=== PATIENT | male | born 1965 | race Caucasian/White ===

== ENCOUNTER 2020-10-10 14:15 | Inpatient (IN) | payer MEDICARE, MEDICAID, SELFPAY ==
[2020-10-10] VITALS (7 sets, daily range): BP systolic 102–141; BP diastolic 41–70; PULSE 80–92; RESP 18–24; TEMP 37–37.3; O2SAT 86–98; BMI 30.4
--- NOTE | 2020-10-10 14:25 | ECG_ITS ---
Test Reason : DYSPNEA Blood Pressure : / mmHG Vent. Rate : 083 BPM Atrial Rate : 083 BPM P-R Int : 148 ms QRS Dur : 084 ms QT Int : 370 ms P-R-T Axes : 068 061 083 degrees QTc Int : 434 ms Normal sinus rhythm Normal ECG When compared with ECG of 18-JUN-2019 22:30, No significant change was found Referred By: Delaney Dumont Electronically Signed By:GM SOLIS MD
--- NOTE | 2020-10-10 14:26 | XR_ITS ---
EXAMINATION: XR CHEST CLINICAL INFORMATION: SOB. COMPARISON: Chest 06/18/2019 TECHNIQUE: Frontal view of the chest was obtained. FINDINGS: The lungs are hyperinflated with patchy opacity right lung base likely atelectasis or infiltrate. There is platelike atelectasis left midlung similar to previous study. Heart size and pulmonary vascularity is normal. No gross bony abnormality. XR/XR chest 1V IMPRESSION: Interval slight increase in the right lower lobe opacity likely infiltrate. No change in left mid lung atelectasis or scarring.
--- NOTE | 2020-10-10 14:32 | ED_ITS ---
HPI - SOB/Dyspnea General Chief Complaint: Dyspnea Stated Complaint: increased sob,cough Time Seen by Provider: 10/10/20 14:25 Source: patient and EMS Mode of arrival: EMS Limitations: no limitations History of Present Illness HPI Narrative: 55-year-old male from a custodial with a past medical history of COPD, high cholesterol, hypertension, [id number] diabetes, hypothyroidism here with shortness of breath and cough times 3-4 days. The patient tells me he has a productive cough with yellow sputum. No chest pain. No fevers or chills or body aches. No vomiting or diarrhea. Per EMS on arrival the patient had a room air saturation of 86%. MD elicited complaint: shortness of breath and cough Pertinent past history: COPD Onset (ago): day(s) Timing: intermittent Severity: moderate Exacerbating factors: exertion Relieving factors: rest Known history of: COPD Associated symptoms: cough and sputum production Treatment prior to arrival: oxygen Related Data Home Medications Medication Instructions Recorded Confirmed albuterol sulfate [Ventolin HFA] 1 puff INHALATION Q6H PRN 10/10/20 10/10/20 atenolol 25 mg PO TID 10/10/20 10/10/20 atorvastatin 40 mg PO BEDTIME 10/10/20 10/10/20 benztropine 1 tab PO BID 10/10/20 10/10/20 clozapine 50 mg PO DAILY 10/10/20 10/10/20 clozapine 150 mg PO BEDTIME 10/10/20 10/10/20 divalproex 1 tab PO DAILY 10/10/20 10/10/20 fluphenazine HCl 1 tab PO BID 10/10/20 10/10/20 gabapentin 1 tab PO TID 10/10/20 10/10/20 glipizide 1 tab PO BIDWM 10/10/20 10/10/20 insulin detemir U-100 [Levemir 30 unit SUBCUT BEDTIME 10/10/20 10/10/20 FlexTouch U-100 Insuln] insulin detemir U-100 [Levemir 45 unit SUBCUT DAILY 10/10/20 10/10/20 FlexTouch U-100 Insuln] levothyroxine 1 tab PO DAILY 10/10/20 10/10/20 lithium carbonate 300 mg PO DAILY 10/10/20 10/10/20 lithium carbonate 450 mg PO BEDTIME 10/10/20 10/10/20 metformin 1 tab PO BIDWM 10/10/20 10/10/20 tamsulosin 1 cap PO DAILY 10/10/20 10/10/20 Allergies Allergy/AdvReac Type Severity Reaction Status Date / Time amoxicillin [AMOXICILLIN] Allergy Intermediate SKIN RASH Unverified 07/28/20 15:05 egg [EGGS] Allergy Intermediate HIVES, Unverified 07/28/20 15:05 VOMITING Penicillins [PENICILLINS] Allergy Intermediate SKIN RASH Unverified 07/28/20 15:05 Sulfa (Sulfonamide Allergy Intermediate SKIN RASH Unverified 07/28/20 15:05 Antibiotics) [SULFA (SULFONAMIDE ANTIBIOTICS)] trimethoprim [TRIMETHOPRIM] Allergy Intermediate SKIN RASH Unverified 07/28/20 15:05 penicillin V Allergy Unknown Unknown Verified 10/10/20 14:35 penicillin Allergy Unknown Unknown Uncoded 10/10/20 14:35 sultamicillin Allergy Unknown Unknown Uncoded 10/10/20 14:35 trimethoprim Allergy Unknown Unknown Uncoded 10/10/20 14:35 Review of Systems Review of Systems: Yes all other systems are reviewed and are negative Constitutional: Constitutional: Reports no additional constitutional complaints, Denies body ache(s), Denies chills, Denies fever(s), Denies headache(s) and Denies weakness Eyes: Eyes: Reports no additional eye complaints and Denies change in vision ENT: Reports system reviewed and no additional complaints, except as documented, Denies dizziness, Denies headache(s), Denies nasal congestion, Denies nasal discharge and Denies neck pain Cardiovascular: Cardiovascular: Reports no additional cardiovascular complaints, Denies chest pain, Denies leg edema and Reports dyspnea Respiratory: Respiratory: Reports no additional respiratory complaints, Reports cough and Reports dyspnea Gastrointestinal: Gastrointestinal: Reports no additional gastrointestinal complaints, Denies abdominal pain, Denies diarrhea, Denies nausea and Denies vomiting Genitourinary: Genitourinary: Denies urinary incontinence Musculoskeletal: Musculoskeletal: Reports no additional musculoskeletal complaints, Denies back pain, Denies arthralgias, Denies joint swelling, Denies neck pain, Denies numbness and Denies tingling Integumentary/Breasts: Skin/Breast: Reports system reviewed and no additional complaints, except as docu and Denies rash Neurologic: Reports system reviewed and no additional complaints, except as documented, Denies Abnormal speech present, Denies dizziness, Denies headache(s), Denies numbness, Denies tingling and Denies weakness PMFSH Past Medical History Attestation statement: The following information was validated with the patient. Source: old records reviewed and nursing notes reviewed Medical History Asthma COPD (chronic obstructive pulmonary disease) Diabetes High cholesterol HTN (hypertension) Social History Social History Smoking Status: Current every day smoker Use of substances other than those prescribed or required for medical reasons: Yes Substance Use Type: Marijuana Substance Use Frequency: Occasionally Advance Directives: No Advance Directives Information Provided: No Physical Exam Vital Signs: Vital Signs: Last Vital Signs Temp 98.6 F 10/10/20 14:26 Pulse 80 10/10/20 15:51 Resp 24 H 10/10/20 15:51 BP 121/69 10/10/20 15:51 Pulse Ox 96 10/10/20 15:51 Body Mass Index 30.4 Const: General: cooperative, healthy appearing, comfortable and no acute distress Orientation/consciousness: patient oriented x3 Limitations: no limitations HENMT: Head: Yes normal to inspection Ears: hearing grossly normal bilaterally General nose exam: Normal external nose present Face and sinus: Yes normal facial exam Mouth: Normal oral and palatal mucosa present Throat: Yes posterior oropharynx normal Eyes: General: appearance normal, both eyes and all related structures Pupils: Equal, round and reactive pupils present Neck: Neck: Yes normal visual inspection Chest: Chest palpation & inspection: normal inspection of the chest Resp: Other: Diminished breath sounds bilaterally, upper airway sounds are coarse but clear with coughing Effort & Inspection: normal respiratory effort Auscultation: clear to auscultation bilaterally Cardio: Rate: regular rate Rhythm: regular rhythm Peripheral pulses: Peripheral pulses 2+ throughout GI: Inspection: Yes normal to inspection Palpation (GI): Soft to palpation and nontender Auscultation: normal bowel sounds Back/Spine/Pelvis: Thoracic/Lumbar Spine: thoracic and lumbar spine normal to inspection Skin: General skin exam: no rashes or lesions noted Neuro: General: patient oriented x3, no focal motor deficits and normal sensation to monofilament Cranial nerves: Yes Equal, round and reactive pupils present Cognition (Neuro): normal cognition Speech: No Abnormal speech present Gait exam (Neuro): Normal gait present Motor exam (neuro): 5/5 motor strength present throughout Extrem: General: Yes normal to inspection Right lower extremity: edema Details: pitting and 1+ Left lower extremity: edema Details: pitting and 1+ Course Course Course Narrative: 55-year-old male from a custodial here with cough, shortness of breath and hypoxia. On arrival the patient has room air saturation of 86%. He improved with just a couple L of oxygen via nasal cannula. He has diminished breath sounds in the bases and coarse upper airway sounds. He has bilateral pitting edema in lower extremities. Will need labs, chest x-ray, COVID testing, EKG. 1559- chest x-ray concerning for possible right lower lobe infiltrate. At this time infection suspected. Antibiotics ordered. 1645- Lactic acid 4.2. Pt is obese. IBW 81kg used for total fluids 2454ml. fluids ordered. Additional antibiotics ordered. CT chest to further eval for underlying pneumonia. 1700-Sign out to Mary Carmen CLAMMER pending above. MDM - SOB/Dyspnea MDM Narrative Medical decision making narrative: Viral syndrome, COVID-19 infection, pneumonia, CHF, COPD exacerbation less likely COVID-19 infection with negative swab. Could consider COPD exacerbation with some wheezing on exam and hypoxia. A dose of steroids was given. Patient does have a mildly elevated BNP and some trace pitting lower extremity edema but does not have any other signs or symptoms of CHF. Chest x- rays more concerning for a right-sided pneumonia with elevated white blood cell count and lactic acid. Medical Records Attestation: I reviewed the patient's medical records. Lab Data Attestation: I reviewed the patient's lab results. Result diagrams: 10/10/20 15:39 10/10/20 15:39 Labs: Lab Results 10/10/20 10/10/20 10/10/20 Range/Units 15:18 15:39 15:39 WBC 11.3 H (4.8-10.8) X10*3/uL RBC 5.22 (4.60-5.80) X10*6/uL Hgb 13.4 L (14.0-18.0) g/dl Hct 45.5 (42-52) % MCV 87.2 (80-98) fL MCH 25.7 L (27.0-33.0) pg MCHC 29.5 L (31.0-36.0) g/dl RDW 16.1 H (11.0-16.0) % Plt Count 305 (160-400) X10*3/uL MPV 9.3 L (9.4-12.4) fL Immature Gran % (Auto) 0.4 (0.0-0.4) % Neut % (Auto) 80.0 H (45-73) % Lymph % (Auto) 11.6 L (20-40) % [place] % (Auto) 7.7 (2-11) % Eos % (Auto) 0.1 (0-4) % Baso % (Auto) 0.2 (0-2) % Lymph # (Auto) 1.3 (1.2-4.9) X10*3/uL [place] # (Auto) 0.9 (0.1-1.2) X10*3/uL Eos # (Auto) 0.0 (0.0-0.4) X10*3/uL Baso # (Auto) 0.0 (0.0-0.2) X10*3/uL Abs Immat Gran (auto) 0.04 H (0.00-0.03) X10*3/uL Absolute Neuts (auto) 9.0 H (2.0-8.3) X10*3/uL Absolute Nucleated RBC 0.000 (0.0-0.012) X10*3/uL Nucleated RBC % (auto) 0.0 (0.0-0.2) /100WBC PT 18.7 H (10.8-13.0) SEC INR 1.6 H (0.9-1.1) Sodium (135-145) mmol/L Potassium (3.3-5.1) mmol/l Chloride (96-108) mmol/L Carbon Dioxide (22-29) mmol/L Anion Gap (12-20) BUN (9-16) mg/dL Creatinine (0.5-1.4) mg/dL Estim Creat Clear Calc Estimated GFR Random Glucose (60-115) mg/dL Lactic Acid (0.5-2.0) mmol/L Calcium (8.4-10.2) mg/dL Magnesium (1.6-2.6) mg/dL Total Bilirubin (0.0-1.0) mg/dL Direct Bilirubin (0.0-0.5) mg/dL AST (5-37) U/L ALT (0-40) U/L Alkaline Phosphatase (39-117) U/L Troponin I High Sens (<3.5-35.0) ng/L B-Natriuretic Peptide (<100) pg/mL Total Protein (6.5-8.0) g/dL Albumin (3.5-5.0) g/dL Coronavirus (PCR) NEGATIVE (Negative) Influenza Type A (PCR) NEGATIVE (Negative) Influenza Type B (PCR) NEGATIVE (Negative) RSV RNA Qual (PCR) NEGATIVE (Negative) 10/10/20 10/10/20 10/10/20 Range/Units 15:39 15:39 15:39 WBC (4.8-10.8) X10*3/uL RBC (4.60-5.80) X10*6/uL Hgb (14.0-18.0) g/dl Hct (42-52) % MCV (80-98) fL MCH (27.0-33.0) pg MCHC (31.0-36.0) g/dl RDW (11.0-16.0) % Plt Count (160-400) X10*3/uL MPV (9.4-12.4) fL Immature Gran % (Auto) (0.0-0.4) % Neut % (Auto) (45-73) % Lymph % (Auto) (20-40) % [place] % (Auto) (2-11) % Eos % (Auto) (0-4) % Baso % (Auto) (0-2) % Lymph # (Auto) (1.2-4.9) X10*3/uL [place] # (Auto) (0.1-1.2) X10*3/uL Eos # (Auto) (0.0-0.4) X10*3/uL Baso # (Auto) (0.0-0.2) X10*3/uL Abs Immat Gran (auto) (0.00-0.03) X10*3/uL Absolute Neuts (auto) (2.0-8.3) X10*3/uL Absolute Nucleated RBC (0.0-0.012) X10*3/uL Nucleated RBC % (auto) (0.0-0.2) /100WBC PT (10.8-13.0) SEC INR (0.9-1.1) Sodium 128 L (135-145) mmol/L Potassium 4.9 (3.3-5.1) mmol/l Chloride 89 L (96-108) mmol/L Carbon Dioxide 28 (22-29) mmol/L Anion Gap 16 (12-20) BUN 4 L (9-16) mg/dL Creatinine 0.69 (0.5-1.4) mg/dL Estim Creat Clear Calc 149.3 Estimated GFR > 60 Random Glucose 170 H (60-115) mg/dL Lactic Acid 4.2 H* (0.5-2.0) mmol/L Calcium 8.3 L (8.4-10.2) mg/dL Magnesium 1.9 (1.6-2.6) mg/dL Total Bilirubin 0.5 (0.0-1.0) mg/dL Direct Bilirubin 0.2 (0.0-0.5) mg/dL AST 8 (5-37) U/L ALT 10 (0-40) U/L Alkaline Phosphatase 81 (39-117) U/L Troponin I High Sens < 3.5 (<3.5-35.0) ng/L B-Natriuretic Peptide (<100) pg/mL Total Protein 5.9 L (6.5-8.0) g/dL Albumin 3.5 (3.5-5.0) g/dL Coronavirus (PCR) (Negative) Influenza Type A (PCR) (Negative) Influenza Type B (PCR) (Negative) RSV RNA Qual (PCR) (Negative) 10/10/20 Range/Units 15:39 WBC (4.8-10.8) X10*3/uL RBC (4.60-5.80) X10*6/uL Hgb (14.0-18.0) g/dl Hct (42-52) % MCV (80-98) fL MCH (27.0-33.0) pg MCHC (31.0-36.0) g/dl RDW (11.0-16.0) % Plt Count (160-400) X10*3/uL MPV (9.4-12.4) fL Immature Gran % (Auto) (0.0-0.4) % Neut % (Auto) (45-73) % Lymph % (Auto) (20-40) % [place] % (Auto) (2-11) % Eos % (Auto) (0-4) % Baso % (Auto) (0-2) % Lymph # (Auto) (1.2-4.9) X10*3/uL [place] # (Auto) (0.1-1.2) X10*3/uL Eos # (Auto) (0.0-0.4) X10*3/uL Baso # (Auto) (0.0-0.2) X10*3/uL Abs Immat Gran (auto) (0.00-0.03) X10*3/uL Absolute Neuts (auto) (2.0-8.3) X10*3/uL Absolute Nucleated RBC (0.0-0.012) X10*3/uL Nucleated RBC % (auto) (0.0-0.2) /100WBC PT (10.8-13.0) SEC INR (0.9-1.1) Sodium (135-145) mmol/L Potassium (3.3-5.1) mmol/l Chloride (96-108) mmol/L Carbon Dioxide (22-29) mmol/L Anion Gap (12-20) BUN (9-16) mg/dL Creatinine (0.5-1.4) mg/dL Estim Creat Clear Calc Estimated GFR Random Glucose (60-115) mg/dL Lactic Acid (0.5-2.0) mmol/L Calcium (8.4-10.2) mg/dL Magnesium (1.6-2.6) mg/dL Total Bilirubin (0.0-1.0) mg/dL Direct Bilirubin (0.0-0.5) mg/dL AST (5-37) U/L ALT (0-40) U/L Alkaline Phosphatase (39-117) U/L Troponin I High Sens (<3.5-35.0) ng/L B-Natriuretic Peptide 162 H (<100) pg/mL Total Protein (6.5-8.0) g/dL Albumin (3.5-5.0) g/dL Coronavirus (PCR) (Negative) Influenza Type A (PCR) (Negative) Influenza Type B (PCR) (Negative) RSV RNA Qual (PCR) (Negative) Imaging Data Chest x-ray: Attestation: I personally reviewed and interpreted this imaging study as follows: Radiologist's impression: EXAMINATION: XR CHEST CLINICAL INFORMATION: SOB. COMPARISON: Chest 06/18/2019 TECHNIQUE: Frontal view of the chest was obtained. FINDINGS: The lungs are hyperinflated with patchy opacity right lung base likely atelectasis or infiltrate. There is platelike atelectasis left midlung similar to previous study. Heart size and pulmonary vascularity is normal. No gross bony abnormality. XR/XR chest 1V IMPRESSION: Interval slight increase in the right lower lobe opacity likely infiltrate. No change in left mid lung atelectasis or scarring. ECG Data Attestation: I personally reviewed and interpreted this ECG as follows: ECG interpretation date: 10/10/20 ECG interpretation time: 15:09 Interpretation: normal sinus rhythm with a rate of 83, normal DE, normal QRS, normal QT, normal ST segment Discharge Plan Discharge Clinical Impression: Pneumonia, Hypoxia, Elevated lactic acid level, Acute hyponatremia Patient Disposition: Admitted As Inpatient
[2020-10-10] MEDS: methylPREDNISolone Sod Succ/PF 125 MG/2 ML VIAL IVPUSH (14:42)
[2020-10-10] MEDS: 0.9 % Sodium Chloride 500 ML 999 ML IV (14:42)
[2020-10-10 16:01] LABS: INTERNATIONAL NORM RATIO 1.6 (0.9-1.1); Prothrombin Time 18.7 SEC (10.8-13.0)
[2020-10-10 16:18] LABS: Hematocrit 45.5 % (42-52); Hemoglobin 13.4 g/dl (14.0-18.0); Imm Gran Pct Auto 0.4 % (0.0-0.4); Mean Corpuscular HGB Conc 29.5 g/dl (31.0-36.0); Mean Corpuscular Hemoglobin 25.7 pg (27.0-33.0); Mean Corpuscular Volume 87.2 fL (80-98); Mean Platelet Volume 9.3 fL (9.4-12.4); Platelet Count 305 X10*3/uL (160-400); Red Blood Count 5.22 X10*6/uL (4.60-5.80); Red Cell Distribution Width 16.1 % (11.0-16.0); White Blood Count 11.3 X10*3/uL (4.8-10.8)
[2020-10-10 16:19] LABS: Basophils Percent Auto 0.2 % (0-2); Eosinophils Percent Auto 0.1 % (0-4); Imm Gran Abs Auto 0.04 X10*3/uL (0.00-0.03); Lymphocytes Absolute Auto 1.3 X10*3/uL (1.2-4.9); Lymphocytes Percent Auto 11.6 % (20-40); MANUAL DIFF FLAG NO; Monocytes Absolute Auto 0.9 X10*3/uL (0.1-1.2); Monocytes Percent Auto 7.7 % (2-11)
[2020-10-10 16:21] LABS: Alanine Aminotransferase 10 U/L (0-40); Albumin Level 3.5 g/dL (3.5-5.0); Alkaline Phosphatase 81 U/L (39-117); Anion Gap 16 (12-20); Aspartate Amino Transferase 8 U/L (5-37); Bilirubin Direct 0.2 mg/dL (0.0-0.5); Bilirubin Total 0.5 mg/dL (0.0-1.0); Blood Urea Nitrogen 4 mg/dL (9-16); Calcium 8.3 mg/dL (8.4-10.2); Carbon Dioxide 28 mmol/L (22-29); Chloride 89 mmol/L (96-108); Creatinine Clr Calc Pharmacy 149.3; Estimated Glomerular Filt Rate > 60; Glucose Random 170 mg/dL (60-115); Magnesium 1.9 mg/dL (1.6-2.6); Potassium 4.9 mmol/l (3.3-5.1); Sodium 128 mmol/L (135-145); Total Protein 5.9 g/dL (6.5-8.0)
[2020-10-10 16:26] LABS: B Type Natriuretic Peptide 162 pg/mL (<100); Troponin-I High Sensitivity < 3.5 ng/L (<3.5-35.0)
[2020-10-10 16:32] LABS: Lactic Acid 4.2 mmol/L (0.5-2.0)
--- NOTE | 2020-10-10 16:40 | CT_ITS ---
EXAMINATION: CT CHEST WITHOUT CONTRAST CLINICAL INFORMATION: Evaluate for pneumonia COMPARISON: Chest radiograph earlier today and chest CT dated 12/03/2017 TECHNIQUE: Multidetector volumetric CT imaging of the chest was done. Axial MIP volume rendering provided. Sagittal and coronal reformatted images were obtained. This CT examination was performed using dose optimization techniques as appropriate, variously including the following: *Automated exposure control *Adjustment of mA and/or kV according to patient size (this includes techniques or standardized protocols for targeted exams where dose is matched to indication/reason for exam; i.e. extremities or head) *Use of iterative reconstruction technique DLP: 497 mGy-cm FINDINGS: LUNGS AND PLEURA: There is underlying emphysematous change. On the right, a pleural effusion is present which appears somewhat lobulated and extends into the major fissure producing the right lower lobe opacity at the time of chest radiograph. There is right lower lobe patchy densities seen extending along the bronchial branching patterns which may represent inflammatory change/pneumonia. Of note, calcified right posterior pleural plaque is again seen. No large pleural soft tissue mass is seen. Some minor calcifications and pleural thickening is noted at the left base as well. There is an unchanged 7 mm perifissural right lower lobe pulmonary nodule (series 4 image [id number]). The worrisome spiculated mass seen in the right upper lobe previously has resolved. No new worrisome lung masses are seen MEDIASTINUM: Some AP window lymph nodes and anterior mediastinal lymph nodes appear slightly larger than previously noted but are still not enlarged. No mediastinal or hilar lymphadenopathy is seen. Coronary calcifications are present. AXILLA: No lymphadenopathy. UPPER ABDOMEN: Unremarkable. OSSEOUS STRUCTURES: Mild degenerative changes present in the midthoracic anterior wedging. No bony destructive lesions seen. CT/CT chest wo con IMPRESSION: Lobular somewhat loculated right pleural effusion with fluid extending into the major fissure and findings of previous asbestos exposure. There is associated right lower lobe infiltrate raising the question of pneumonia and empyema. If finding does not resolve, pleural drainage may be of value to exclude asbestos related neoplasm.
[2020-10-10 16:47] LABS: Influenza A PCR NEGATIVE (Negative); Influenza B PCR NEGATIVE (Negative); Resp Syncy Virus RNA Qual PCR NEGATIVE (Negative); SARS COV2 PCR INHOUSE NEGATIVE (Negative)
[2020-10-10] MEDS: cefTRIAXone sodium 1 GM in 0.9 % Sodium Chloride 50 ML IV (16:59)
[2020-10-10 17:45] LABS: Reflex Lactate? Lactic Acid Added
[2020-10-10] MEDS: Azithromycin 500 MG in 0.9 % Sodium Chloride 250 ML 125 MG IV (17:58)
[2020-10-10 18:49] LABS: ~Lactic Acid-LAB USE ONLY 3.1 mmol/L (0.5-2.0)
--- NOTE | 2020-10-10 19:15 | PC.NURSE ---
Report taken from Sheryl, ranjit RN resuming care. Pt found sitting upright at the end of bed, trying to get out of bed, pt had pulled his IV out and blood was all over the bed and floor. Pt was incontinent of urine, unable to urinate in the urinal. Second IV established, ABX infusing per EMAR. Pt aware of plan to admit, awaiting bed assignment. Continue to monitor.
[2020-10-10 20:12] LABS: Reflex Lactate? 2 Y
--- NOTE | 2020-10-10 20:19 | P.HPHOSP_ITS ---
History of Present Illness Date of Service: 10/10/20 <Gisel Mayo NP - Last Filed: 10/10/20 21:18> Chief Complaint: SHORTNESS OF BREATH <Gisel Mayo NP - Last Filed: 10/10/20 21:18> 55-year-old man presenting from a snf with increased shortness of breath. He reported that this has been ongoing for the last several days. He denies any sick contacts, fever, chills. He did report some nausea vomiting and several episodes of diarrhea. In the ER, chest CT showed loculated right pleural effusion with question of previous asbestos exposure. He also had a right lower lobe infiltrate with question of pneumonia versus empyema. He did not have any fever, he had a mildly elevated white blood cell count 11.3. His lactic acid was elevated at 4.2 with repeat of 3.1. His BNP was mildly elevated at 162 however he did not appear to be in heart failure. Coronavirus PCR negative. In the ER he was given 30 mL/kg IV fluid bolus, Solu-Medrol, ceftriaxone, azithromycin. He will be admitted for further management and treatment of community-acquired pneumonia as well as hyponatremia. <Gisel Mayo NP - Last Filed: 10/10/20 21:18> Review of Systems Review of Systems: Denies any recent fever chills or decrease in appetite respiratory denies any shortness of breath coverage production cardiovascular is adjustment of any PND or edema gastrointestinal See HPI genitourinary denies any dysuria frequency or hematuria musculoskeletal denies any joint pain or swelling neuropsych denies any weakness or seizures all other systems reviewed are negative <Gisel Mayo NP - Last Filed: 10/10/20 21:18> Constitutional: Constitutional: Denies headache(s) and Denies weakness <Gisel Mayo NP - Last Filed: 10/10/20 21:18> ENT: Denies dizziness and Denies headache(s) <Gisel Mayo NP - Last Filed: 10/10/20 21:18> Musculoskeletal: Musculoskeletal: Denies numbness and Denies tingling <Gisel Mayo NP - Last Filed: 10/10/20 21:18> Neurologic: Reports system reviewed and no additional complaints, except as documented, Denies Abnormal speech present, Denies dizziness, Denies headache(s), Denies numbness, Denies tingling and Denies weakness <Gisel Mayo NP - Last Filed: 10/10/20 21:18> [facility] Medical History: Medical History (Updated 10/14/20 @ 21:47 by Adali Lindsey MD) Asbestos-induced pleural plaque Asthma COPD (chronic obstructive pulmonary disease) Diabetes High cholesterol HTN (hypertension) Loculated pleural effusion Rash Schizophrenia Traumatic brain injury <Gisel Mayo NP - Last Filed: 10/10/20 21:18> Social History: Social History Household Members: Caregiver and Other Housing: House Smoking Status: Current every day smoker Packs Per Day: 1.5 Substance Use Type: Marijuana service: No Current occupational status: disabled <Gisel Mayo NP - Last Filed: 10/10/20 21:18> Meds Allergies/Adverse reactions: Allergies Allergy/AdvReac Type Severity Reaction Status Date / Time amoxicillin [AMOXICILLIN] Allergy Intermediate SKIN RASH Verified 10/11/20 17:00 egg [EGGS] Allergy Intermediate HIVES, Verified 10/11/20 17:00 VOMITING Penicillins [PENICILLINS] Allergy Intermediate SKIN RASH Verified 10/11/20 17:00 Sulfa (Sulfonamide Allergy Intermediate SKIN RASH Verified 10/11/20 17:00 Antibiotics) [SULFA (SULFONAMIDE ANTIBIOTICS)] trimethoprim [TRIMETHOPRIM] Allergy Intermediate SKIN RASH Verified 10/11/20 17:00 penicillin V Allergy Unknown Unknown Verified 10/10/20 14:35 haloperidol [From Haldol] Allergy Unknown Verified 10/11/20 16:16 Latex, Natural Rubber Allergy Unknown Verified 10/11/20 16:16 methylprednisolone Allergy Unknown Verified 10/11/20 16:16 [From Solu-Medrol] penicillin Allergy Unknown Unknown Uncoded 10/10/20 14:35 sultamicillin Allergy Unknown Unknown Uncoded 10/10/20 14:35 trimethoprim Allergy Unknown Unknown Uncoded 10/10/20 14:35 <Gisel Mayo NP - Last Filed: 10/10/20 21:18> Home medications: Home Medications Medication Instructions Recorded Confirmed Type albuterol sulfate [Ventolin HFA] 1 puff INHALATION Q6H PRN 10/10/20 10/10/20 History atorvastatin 40 mg PO BEDTIME 10/10/20 10/10/20 History benztropine 1 tab PO BID 10/10/20 10/10/20 History clozapine 50 mg PO DAILY 10/10/20 10/10/20 History clozapine 150 mg PO BEDTIME 10/10/20 10/10/20 History divalproex 1 tab PO DAILY 10/10/20 10/10/20 History fluphenazine HCl 1 tab PO BID 10/10/20 10/10/20 History gabapentin 1 tab PO TID 10/10/20 10/10/20 History levothyroxine 1 tab PO DAILY 10/10/20 10/10/20 History lithium carbonate 300 mg PO DAILY 10/10/20 10/10/20 History lithium carbonate 450 mg PO BEDTIME 10/10/20 10/10/20 History metformin 1 tab PO BIDWM 10/10/20 10/10/20 History tamsulosin 1 cap PO DAILY 10/10/20 10/10/20 History ibuprofen 600 mg PO Q6H PRN 10/20/20 10/20/20 History loratadine 10 mg PO DAILY 10/20/20 10/20/20 History <Gisel Mayo NP - Last Filed: 10/10/20 21:18> Physical Exam Vital Signs and Narrative: Vital Signs: Last Vital Signs Temp 98.6 F 10/10/20 14:26 Pulse 82 10/10/20 18:00 Resp 22 H 10/10/20 18:00 BP 134/69 10/10/20 18:00 Pulse Ox 96 10/10/20 18:00 Body Mass Index 30.4 <Gisel Mayo NP - Last Filed: 10/10/20 21:18> Appearing in no acute distress head is normocephalic atraumatic eyes pupils are PERRLA sclera is anicteric mouth throat mucous membranes are intact and moist neck is supple no lymphadenopathy, no JVD noted lung normal expansion, rhonchi heart regular rate rhythm positive bowel sounds, abdomen is soft, nontender neuro patient is alert x3, no focal deficits <Gisel Mayo NP - Last Filed: 10/10/20 21:18> Neuro: Speech: No Abnormal speech present <Gisel Mayo NP - Last Filed: 10/10/20 21:18> Results Labs CBC and Chem 7: : 10/11/20 06:45 10/14/20 06:01 <Gisel Mayo NP - Last Filed: 10/10/20 21:18> Labs: Laboratory Results - last 24 hr 10/10/20 10/10/20 10/10/20 15:18 15:39 15:39 MCV 87.2 MCH 25.7 L MCHC 29.5 L RDW 16.1 H Plt Count 305 MPV 9.3 L Immature Gran % (Auto) 0.4 Neut % (Auto) 80.0 H Lymph % (Auto) 11.[address] [place] % (Auto) 7.7 Eos % (Auto) 0.1 Baso % (Auto) 0.2 Lymph # (Auto) 1.3 [place] # (Auto) 0.9 Eos # (Auto) 0.0 Baso # (Auto) 0.0 Abs Immat Gran (auto) 0.04 H Absolute Neuts (auto) 9.0 H Absolute Nucleated RBC 0.000 Nucleated RBC % (auto) 0.0 PT 18.7 H INR 1.6 H Sodium Anion Gap Estim Creat Clear Calc Estimated GFR Random Glucose Lactic Acid Lactic Acid Fup @ 2Hr Calcium Magnesium Total Bilirubin Direct Bilirubin AST ALT Alkaline Phosphatase Troponin I High Sens B-Natriuretic Peptide Total Protein Albumin Coronavirus (PCR) NEGATIVE Influenza Type A (PCR) NEGATIVE Influenza Type B (PCR) NEGATIVE RSV RNA Qual (PCR) NEGATIVE 10/10/20 10/10/20 10/10/20 15:39 15:39 15:39 MCV MCH MCHC RDW Plt Count MPV Immature Gran % (Auto) Neut % (Auto) Lymph % (Auto) [place] % (Auto) Eos % (Auto) Baso % (Auto) Lymph # (Auto) [place] # (Auto) Eos # (Auto) Baso # (Auto) Abs Immat Gran (auto) Absolute Neuts (auto) Absolute Nucleated RBC Nucleated RBC % (auto) PT INR Sodium 128 L Anion Gap 16 Estim Creat Clear Calc 149.3 Estimated GFR > 60 Random Glucose 170 H Lactic Acid 4.2 H* Lactic Acid Fup @ 2Hr Calcium 8.3 L Magnesium 1.9 Total Bilirubin 0.5 Direct Bilirubin 0.2 AST 8 ALT 10 Alkaline Phosphatase 81 Troponin I High Sens < 3.5 B-Natriuretic Peptide Total Protein 5.9 L Albumin 3.5 Coronavirus (PCR) Influenza Type A (PCR) Influenza Type B (PCR) RSV RNA Qual (PCR) 10/10/20 10/10/20 15:39 18:08 MCV MCH MCHC RDW Plt Count MPV Immature Gran % (Auto) Neut % (Auto) Lymph % (Auto) [place] % (Auto) Eos % (Auto) Baso % (Auto) Lymph # (Auto) [place] # (Auto) Eos # (Auto) Baso # (Auto) Abs Immat Gran (auto) Absolute Neuts (auto) Absolute Nucleated RBC Nucleated RBC % (auto) PT INR Sodium Anion Gap Estim Creat Clear Calc Estimated GFR Random Glucose Lactic Acid Lactic Acid Fup @ 2Hr 3.1 H* Calcium Magnesium Total Bilirubin Direct Bilirubin AST ALT Alkaline Phosphatase Troponin I High Sens B-Natriuretic Peptide 162 H Total Protein Albumin Coronavirus (PCR) Influenza Type A (PCR) Influenza Type B (PCR) RSV RNA Qual (PCR) <Gisel Mayo NP - Last Filed: 10/10/20 21:18> Imaging Radiologist's Impressions: Impressions Chest X-Ray 10/10/20 14:26 IMPRESSION: Interval slight increase in the right lower lobe opacity likely infiltrate. No change in left mid lung atelectasis or scarring. Chest CT 10/10/20 16:40 IMPRESSION: Lobular somewhat loculated right pleural effusion with fluid extending into the major fissure and findings of previous asbestos exposure. There is associated right lower lobe infiltrate raising the question of pneumonia and empyema. If finding does not resolve, pleural drainage may be of value to exclude asbestos related neoplasm. <Gisel Mayo NP - Last Filed: 10/10/20 21:18> Assessment and Plan (1) Pneumonia: Qualifiers: Laterality: right Lung location: lower lobe of lung Pneumonia type: due to unspecified organism Qualified Code(s): J18.9 - Pneumonia, unspecified organism <Gisel Mayo NP - Last Filed: 10/10/20 21:18> Problem details: CAP <Gisel Mayo NP - Last Filed: 10/10/20 21:18> Status: Acute <Gisel Mayo NP - Last Filed: 10/10/20 21:18> (2) Acute hyponatremia: Status: Acute <Gisel Mayo NP - Last Filed: 10/10/20 21:18> 55-year-old man admitted with community-acquired pneumonia and hypon atremia. Community-acquired pneumonia. No sepsis.Negative COVID. Will treat with Rocephin and doxycycline. Follow cultures. COPD exacerbation. Solu-Medrol, duo nebs, supplemental oxygen as needed. Robitussin for cough Hyponatremia. Patient denies polydipsia. Unknown etiology at this time may be related to some insensible losses with vomiting and diarrhea. Will check stool studies, urine studies, urine for Legionella. recheck sodium this evening. Schizophrenia. Continue home medications. Diabetes mellitus. Sliding scale, ADA diet, continue glipizide, long-acting insulin, metformin. Hypothyroidism. Continue levothyroxine. Hypertension. Continue atenolol. Hyperlipidemia. Continue statin. Smoker. NRT, discussed the importance of cessation. DVT prophylaxis with Lovenox. Discussed with Dr. Becerril Full code <Gisel Mayo NP - Last Filed: 10/10/20 21:18>
--- NOTE | 2020-10-10 20:35 | PC.NURSE ---
Pt found resting in bed, reports breathing as fair. On 2 lpm via NC, pt satting @ 89%, pt increased to 2 lpm. Pt assisted to the edge of the bed to use the urinal. Urine sample obtained and sent. Repeat lactic obtained and sent. Pt repositioned into an upright position, provided with clean bed linens, O2 increased to 4 lpm, sat increased to 93%. Continue to monitor.
--- NOTE | 2020-10-10 21:12 | PC.NURSE ---
Report given to C RN. IMC requesting 20 minutes prior to transport to floor. Pt again, found standing in his room even though both bed rails up. Pt extremely impulsive, refusing to use his call tracy or call for assistance when ambulating. Pt urinating on the floor for the 4th time. enterprise integration developer aware of pts need for a sitter, IMC RN advised of pts impulsive nature and difficulty following directions.
[2020-10-10 21:16] LABS: Osmolality Urine 130 mosm/kg (373-1093)
[2020-10-10 21:19] LABS: Potassium Urine Random 8.5 mmol/l; Sodium Urine Random < 20.0 mmol/L
--- NOTE | 2020-10-10 21:26 | P.EN_ITS ---
Event Note Date of Service: 10/10/20 Event Note: admission note: 55 y/o male who presented from residential due to SOB. To be admitted due to COPD exacerbation likely secondary to RLL PNA, Loculated right pleural effusion and hyponatremia. ROS and Physical exam as per H and P. PMHX: Asthma COPD (chronic obstructive pulmonary disease) Diabetes High cholesterol HTN (hypertension) Schizophrenia Traumatic brain injury PSx: unknown Toxic habits: No hx of alcohol abuse or IVDA documented. Assessment/Plan: 1- COPD exacerbation likely secondary to RLL PNA Continue with IV antbx as ordered Follow up BCx and Sputum cx Infectiou disease consult in the am Pulmonary consult for loculated Right pleural effusion 2- Hypovolemic Hypoosmolar hyponatremia S/p IV fluid resuscitation in the ED Follow up repeat BMP and monitor sodium levels closely Nephrology consult in the am Rest of the plan as discussed with ROD CUP FILLER per ROD CUP FILLER's note Gisel Mayo
--- NOTE | 2020-10-10 21:43 | PC.NURSE ---
Pt requesting food/drink, given a sandwich and gingerale. VSS. Awaiting transport to floor.
[2020-10-10 22:38] LABS: Glucose, Whole Blood 130 mg/dL (60-115)
[2020-10-10 22:42] LABS: Sodium 136 mmol/L (135-145)
[2020-10-10] MEDS: Doxycycline Hyclate 100 MG in 0.9 % Sodium Chloride 250 ML 166.67 MG IV (23:15)
[2020-10-10] MEDS: Gabapentin 600 MG TABLET PO (23:17)
[2020-10-10] MEDS: Atorvastatin Calcium 40 MG TABLET PO (23:17)
[2020-10-10] MEDS: Lithium Carbonate ER 450 MG TABLET.ER PO (23:17)
[2020-10-10] MEDS: Enoxaparin Sodium 40 MG/0.4 ML SYRINGE SUBCUT (23:20)
[2020-10-10] MEDS: 0.9 % Sodium Chloride Flush 3 ML SYRINGE IVFLUSH (23:21)
[2020-10-11] VITALS (13 sets, daily range): BP systolic 113–136; BP diastolic 56–65; PULSE 80–100; RESP 20–24; TEMP 36.7–37.1; O2SAT 90–98; BMI 30.4
[2020-10-11 04:49] LABS: Glucose, Whole Blood 170 mg/dL (60-115)
[2020-10-11] MEDS: Levothyroxine Sodium 150 MCG TABLET PO (05:54)
[2020-10-11 07:16] LABS: MANUAL DIFF FLAG NO
[2020-10-11] MEDS: Albuterol/Iprat 2.5/0.5MG 3 ML AMPUL.NEB INHALE ×4 (07:23→19:39)
[2020-10-11 07:26] LABS: Hemoglobin 12.5 g/dl (14.0-18.0); Imm Gran Abs Auto 0.07 X10*3/uL (0.00-0.03); Imm Gran Pct Auto 0.8 % (0.0-0.4); Lymphocytes Absolute Auto 0.7 X10*3/uL (1.2-4.9); Lymphocytes Percent Auto 8.6 % (20-40); Mean Corpuscular HGB Conc 29.1 g/dl (31.0-36.0); Mean Corpuscular Hemoglobin 25.4 pg (27.0-33.0); Mean Corpuscular Volume 87.2 fL (80-98); Mean Platelet Volume 9.8 fL (9.4-12.4); Monocytes Absolute Auto 0.3 X10*3/uL (0.1-1.2); Monocytes Percent Auto 3.5 % (2-11); Neutrophils Absolute Auto 7.4 X10*3/uL (2.0-8.3); Neutrophils Percent Auto 87.1 % (45-73); Platelet Count 328 X10*3/uL (160-400); Red Blood Count 4.93 X10*6/uL (4.60-5.80); Red Cell Distribution Width 16.1 % (11.0-16.0); White Blood Count 8.5 X10*3/uL (4.8-10.8)
[2020-10-11 07:39] LABS: Glucose, Whole Blood 153 mg/dL (60-115)
[2020-10-11 07:56] LABS: Anion Gap 12 (12-20); Blood Urea Nitrogen 4 mg/dL (9-16); Calcium 8.6 mg/dL (8.4-10.2); Carbon Dioxide 32 mmol/L (22-29); Chloride 102 mmol/L (96-108); Creatinine Clr Calc Pharmacy 171.7; Estimated Glomerular Filt Rate > 60; Glucose Random 147 mg/dL (60-115); Sodium 141 mmol/L (135-145)
[2020-10-11] MEDS: metFORMIN HCl 1,000 MG TABLET 1000 MG PO ×2 (08:02→16:52)
[2020-10-11] MEDS: Divalproex Sodium ER 250 MG TAB.ER.24H PO (08:02)
[2020-10-11] MEDS: Lithium Carbonate ER 300 MG TABLET.ER PO (08:02)
[2020-10-11] MEDS: Nicotine 14 MG PATCH.TD24 TRANSDERMA (08:02)
[2020-10-11] MEDS: Benztropine Mesylate 1 MG TABLET PO ×2 (08:02→21:02)
[2020-10-11] MEDS: Insulin Lispro 100 UNIT/ML 3 ML VIAL SUBCUT ×2 (08:03→12:02)
[2020-10-11] MEDS: Insulin Glargine,Hum.rec.anlog 100 UNIT/ML 10 ML VIAL 32 UNIT SUBCUT (08:06)
[2020-10-11] MEDS: atenoloL 25 MG TABLET PO ×3 (08:06→21:03)
[2020-10-11] MEDS: 0.9 % Sodium Chloride Flush 3 ML SYRINGE IVFLUSH ×3 (08:09→23:20)
[2020-10-11] MEDS: glipiZIDE XL 10 MG TAB.ER.24 PO ×2 (08:10→16:52)
[2020-10-11] MEDS: Gabapentin 600 MG TABLET PO ×3 (08:10→21:02)
[2020-10-11] MEDS: Dextrose 5 % 1,000 ML 75 ML IVCONT (09:09)
--- NOTE | 2020-10-11 09:48 | MHC.CM.PN ---
CM met with Patient and spoke to Linen Checker Winsome Ramirez @ [phone]. Patient's goal for dc is to return to his [facility] in [place] and CM has initiated and will follow for dc planning. IMM addressed with Patient, who presently appears to make his own decisions and the original has been given to him and a copy has been placed on the chart. Per Winsome, Patient has considered making his Friend/Acacia ([phone])his HCP but he has apparently not yet committed to that. Patient is functionally independent (no DME) and his PCP is Dr.Phyllis Pate.
--- NOTE | 2020-10-11 10:05 | P.CONPL_ITS ---
History of Present Illness History of Present Illness Consult date: 10/11/20 Chief complaint: increased sob,cough Narrative: 55-year-old man presenting from a assisted with increased shortness of breath. He reported that this has been ongoing for the last several days. He denies any sick contacts, fever, chills. He did report some nausea vomiting and several episodes of diarrhea. In the ER, chest CT showed loculated right pleural effusion with question of previous asbestos exposure. He also had a right lower lobe infiltrate with question of pneumonia versus empyema. He did not have any fever, he had a mildly elevated white blood cell count 11.3. His lactic acid was elevated at 4.2 with repeat of 3.1. His BNP was mildly elevated at 162 however he did not appear to be in heart failure. Coronavirus PCR negative. In the ER he was given 30 mL/kg IV fluid bolus, Solu-Medrol, ceftriaxone, azithromycin. He will be admitted for further management and treatment of community-acquired pneumonia as well as hyponatremia. Currently he is feeling a little better. Review of Systems Constitutional: Constitutional: Denies headache(s) and Denies weakness ENT: Denies dizziness and Denies headache(s) Cardiovascular: Cardiovascular: Denies irregular heart rhythm and Denies dyspnea Respiratory: Respiratory: Reports chest congestion, Reports cough, Denies pain with cough and Denies dyspnea Musculoskeletal: Musculoskeletal: Denies numbness and Denies tingling Neurologic: Reports system reviewed and no additional complaints, except as do cumented, Denies Abnormal speech present, Denies dizziness, Denies headache(s), Denies numbness, Denies tingling and Denies weakness Hematologic/Lymphatic: Hematologic/Lymphatic: Denies easy bleeding and Denies easy bruising [facility] Past Medical History Medical History (Updated 10/11/20 @ 10:09 by Dominic Mayo MD) Asbestos-induced pleural plaque Asthma COPD (chronic obstructive pulmonary disease) Diabetes High cholesterol HTN (hypertension) Loculated pleural effusion Schizophrenia Traumatic brain injury Social History Social History (Updated 10/10/20 @ 20:27 by Gisel Mayo NP) Smoking Status: Current every day smoker Packs Per Day: 1.5 Use of substances other than those prescribed or required for medical reasons: Yes Substance Use Type: Marijuana Substance Use Frequency: Occasionally Advance Directives: No Advance Directives Information Provided: No service: No Current occupational status: disabled Meds Allergies Allergy/AdvReac Type Severity Reaction Status Date / Time amoxicillin [AMOXICILLIN] Allergy Intermediate SKIN RASH Unverified 07/28/20 15:05 egg [EGGS] Allergy Intermediate HIVES, Unverified 07/28/20 15:05 VOMITING Penicillins [PENICILLINS] Allergy Intermediate SKIN RASH Unverified 07/28/20 15:05 Sulfa (Sulfonamide Allergy Intermediate SKIN RASH Unverified 07/28/20 15:05 Antibiotics) [SULFA (SULFONAMIDE ANTIBIOTICS)] trimethoprim [TRIMETHOPRIM] Allergy Intermediate SKIN RASH Unverified 07/28/20 15:05 penicillin V Allergy Unknown Unknown Verified 10/10/20 14:35 penicillin Allergy Unknown Unknown Uncoded 10/10/20 14:35 sultamicillin Allergy Unknown Unknown Uncoded 10/10/20 14:35 trimethoprim Allergy Unknown Unknown Uncoded 10/10/20 14:35 Home Medications Medication Instructions Recorded Confirmed Type albuterol sulfate [Ventolin HFA] 1 puff INHALATION Q6H PRN 10/10/20 10/10/20 History atenolol 25 mg PO TID 10/10/20 10/10/20 History atorvastatin 40 mg PO BEDTIME 10/10/20 10/10/20 History benztropine 1 tab PO BID 10/10/20 10/10/20 History clozapine 50 mg PO DAILY 10/10/20 10/10/20 History clozapine 150 mg PO BEDTIME 10/10/20 10/10/20 History divalproex 1 tab PO DAILY 10/10/20 10/10/20 History fluphenazine HCl 1 tab PO BID 10/10/20 10/10/20 History gabapentin 1 tab PO TID 10/10/20 10/10/20 History glipizide 1 tab PO BIDWM 10/10/20 10/10/20 History insulin detemir U-100 [Levemir 30 unit SUBCUT BEDTIME 10/10/20 10/10/20 History FlexTouch U-100 Insuln] insulin detemir U-100 [Levemir 45 unit SUBCUT DAILY 10/10/20 10/10/20 History FlexTouch U-100 Insuln] levothyroxine 1 tab PO DAILY 10/10/20 10/10/20 History lithium carbonate 300 mg PO DAILY 10/10/20 10/10/20 History lithium carbonate 450 mg PO BEDTIME 10/10/20 10/10/20 History metformin 1 tab PO BIDWM 10/10/20 10/10/20 History tamsulosin 1 cap PO DAILY 10/10/20 10/10/20 History Physical Exam Vital Signs: Vital Signs: Last Vital Signs Temp 98.1 F 10/11/20 08:00 Pulse 94 10/11/20 08:06 Resp 20 10/11/20 08:00 BP 135/65 10/11/20 08:06 Pulse Ox 90 L 10/11/20 08:00 Body Mass Index 30.4 Const: General: alert HENMT: General nose exam: Abnormal external nose present and Nasal discharge present Eyes: Pupils: Equal, round and reactive pupils present Neck: Neck: Yes normal visual inspection, Yes full ROM and Yes no lymphadenopathy Chest: Chest palpation & inspection: normal inspection of the chest Resp: Auscultation: diminished lung sounds Cardio: Rate: regular rate Rhythm: regular rhythm Heart sounds: S1 normal heart sound present and S2 normal heart sound present GI: Palpation (GI): Soft to palpation and nontender Auscultation: normal bowel sounds : General: Yes no CVA tenderness Back/Spine/Pelvis: Back: no CVA tenderness Skin: General skin exam: rashes and/or lesions noted Neuro: Cranial nerves: Yes Equal, round and reactive pupils present Speech: No Abnormal speech present Results Laboratory Findings CBC and BMP: 10/11/20 06:45 10/11/20 06:45 ABG, PT/INR, D-dimer: PT/INR, D-dimer PT 18.7 SEC (10.8-13.0) H 10/10/20 15:39 INR 1.6 (0.9-1.1) H 10/10/20 15:39 Abnormal lab findings: Abnormal Labs 10/10/20 10/10/20 10/10/20 15:39 15:39 15:39 WBC 11.3 H Hgb 13.4 L MCH 25.7 L MCHC 29.5 L RDW 16.1 H MPV 9.3 L Immature Gran % (Auto) Neut % (Auto) 80.0 H Lymph % (Auto) 11.6 L Lymph # (Auto) Abs Immat Gran (auto) 0.04 H Absolute Neuts (auto) 9.0 H PT 18.7 H INR 1.6 H Sodium 128 L Chloride 89 L Carbon Dioxide BUN 4 L POC Glucose Random Glucose 170 H Lactic Acid Lactic Acid Fup @ 2Hr Calcium 8.3 L B-Natriuretic Peptide Total Protein 5.9 L Urine Osmolality 10/10/20 10/10/20 10/10/20 15:39 15:39 18:08 WBC Hgb MCH MCHC RDW MPV Immature Gran % (Auto) Neut % (Auto) Lymph % (Auto) Lymph # (Auto) Abs Immat Gran (auto) Absolute Neuts (auto) PT INR Sodium Chloride Carbon Dioxide BUN POC Glucose Random Glucose Lactic Acid 4.2 H* Lactic Acid Fup @ 2Hr 3.1 H* Calcium B-Natriuretic Peptide 162 H Total Protein Urine Osmolality 10/10/20 10/10/20 10/11/20 20:22 22:35 04:45 WBC Hgb MCH MCHC RDW MPV Immature Gran % (Auto) Neut % (Auto) Lymph % (Auto) Lymph # (Auto) Abs Immat Gran (auto) Absolute Neuts (auto) PT INR Sodium Chloride Carbon Dioxide BUN POC Glucose 130 H 170 H Random Glucose Lactic Acid Lactic Acid Fup @ 2Hr Calcium B-Natriuretic Peptide Total Protein Urine Osmolality 130 L 10/11/20 10/11/20 10/11/20 06:45 06:45 07:33 WBC Hgb 12.5 L MCH 25.4 L MCHC 29.1 L RDW 16.1 H MPV Immature Gran % (Auto) 0.8 H Neut % (Auto) 87.1 H Lymph % (Auto) 8.6 L Lymph # (Auto) 0.7 L Abs Immat Gran (auto) 0.07 H Absolute Neuts (auto) PT INR Sodium Chloride Carbon Dioxide 32 H BUN 4 L POC Glucose 153 H Random Glucose 147 H Lactic Acid Lactic Acid Fup @ 2Hr Calcium B-Natriuretic Peptide Total Protein Urine Osmolality Assessment and Plan (1) Pneumonia: Qualifiers: Laterality: right Lung location: lower lobe of lung Pneumonia type: due to unspecified organism Qualified Code(s): J18.9 - Pneumonia, unspecified organism Problem details: CAP Status: Acute Continue CTX and ZTX (2) Asbestos-induced pleural plaque: Status: Acute (3) Loculated pleural effusion: Problem details: small loculated pockets, not warrent drainage at this time. I am concern for the possibility of Mesothelioma with his asbestos disease. Will need to follow closely Status: Acute Continue Abx Repeat CXR tomorrow
--- NOTE | 2020-10-11 10:22 | P.PNIM_ITS ---
Subjective Subjective Date of Service: 10/11/20 Interval History: Seen in f/u for SOB in settting of loculated P. effusion. Denies SOB, negative covid bROS. No chest pain no so Physical Exam Vital Signs: Vital Signs: Last Vital Signs Temp 98.1 F 10/11/20 08:00 Pulse 94 10/11/20 08:06 Resp 20 10/11/20 08:00 BP 135/65 10/11/20 08:06 Pulse Ox 90 L 10/11/20 08:00 Body Mass Index 30.4 Const: General: cooperative, comfortable and no acute distress Orientati on/consciousness: patient oriented x3 Resp: Other: Rhonchi bebe Effort & Inspection: normal respiratory effort Cardio: Heart sounds: S1 normal heart sound present and S2 normal heart sound present GI: Other: Non tender, nomal BS Skin: General skin exam: no rashes or lesions noted Neuro: General: patient oriented x3 Psych: Other: normal affect Objective Data Current Medications Generic Name Dose Route Start Last Admin Trade Name Freq PRN Reason Stop Dose Admin Acetaminophen 650 mg 10/10/20 22:21 Acetaminophen 325 Mg Tablet PO Q6H PRN Pain, Mild (Pain Scale 1-3) Albuterol/Ipratropium 3 ml 10/11/20 08:00 10/11/20 07:23 Albuterol/Iprat 2.5/0.5mg 3 Ml Ampul.Neb INHALE 3 ml RQ4H WHILE AWAKE CAROLINE Administration Atenolol 25 mg 10/10/20 22:21 10/11/20 08:06 Atenolol 25 Mg Tablet PO 25 mg TID CAROLINE Administration Protocol Atorvastatin Calcium 40 mg 10/10/20 22:21 10/10/20 23:17 Atorvastatin Calcium 40 Mg Tablet PO 40 mg BEDTIME CAROLINE Administration Benztropine Mesylate 1 mg 10/11/20 09:00 10/11/20 08:02 Benztropine Mesylate 1 Mg Tablet PO 1 mg BID CARLOINE Administration Clozapine 50 mg 10/11/20 09:00 Clozapine 25 Mg Tablet PO DAILY CAROLINE Clozapine 150 mg 10/10/20 22:21 Clozapine 25 Mg Tablet PO BEDTIME CAROLINE Divalproex Sodium 250 mg 10/11/20 09:00 10/11/20 08:02 Divalproex Sodium Er 250 Mg Tab.Er.24h PO 250 mg DAILY CAROLINE Administration Enoxaparin Sodium 40 mg 10/10/20 23:00 10/10/20 23:20 Enoxaparin Sodium 40 Mg/0.4 Ml Syringe SUBCUT 40 mg Q24H CAROLINE Administration Fluphenazine HCl 2.5 mg 10/10/20 22:21 10/10/20 23:19 Fluphenazine Hcl 2.5 Mg Tablet PO Not Given BID CAROLINE Gabapentin 600 mg 10/10/20 22:21 10/11/20 08:10 Gabapentin 600 Mg Tablet PO 600 mg TID CAROLINE Administration Glipizide 10 mg 10/11/20 08:00 10/11/20 08:10 Glipizide Xl 10 Mg Tab.Er.24 PO 10 mg BIDWM CAROLINE Administration Azithromycin 500 mg/ Sodium 250 mls @ 125 mls/hr 10/11/20 18:00 Chloride IV Q24H [facility] Ceftriaxone Sodium 1 gm/ 50 mls @ 100 mls/hr 10/11/20 16:00 Sodium Chloride IV Q24H [facility] Doxycycline Hyclate 100 mg/ 250 mls @ 166.67 mls/hr 10/10/20 23:00 10/11/20 00:54 Sodium Chloride IV Infused Q12H [facility] Infusion Dextrose 1,000 mls @ 75 mls/hr 10/11/20 08:45 10/11/20 09:09 D5w IVCONT 75 mls/hr .[id number] [facility] Administration Insulin Glargine 32 unit 10/11/20 09:00 10/11/20 08:06 Insulin Glargine,Hum.Rec.Anlog 100 Unit/Ml 10 Ml Vial SUBCUT 32 unit DAILY [facility] Administration Insulin Glargine 21 unit 10/11/20 21:00 Insulin Glargine,Hum.Rec.Anlog 100 Unit/Ml 10 Ml Vial SUBCUT BEDTIME CAROLINE Insulin Human Lispro 0 unit 10/10/20 22:21 10/11/20 08:03 Insulin Lispro 100 Unit/Ml 3 Ml Vial SUBCUT 2 unit QIDACHS [facility] Administration Protocol Levothyroxine Sodium 150 mcg 10/11/20 06:00 10/11/20 05:54 Levothyroxine Sodium 150 Mcg Tablet PO 150 mcg DAILY@0600 CAROLINE Administration [place] Carbonate 300 mg 10/11/20 09:00 10/11/20 08:02 [place] Carbonate Er 300 Mg Tablet.Er PO 300 mg DAILY CAROLINE Administration [place] Carbonate 450 mg 10/10/20 22:21 10/10/20 23:17 [place] Carbonate Er 450 Mg Tablet.Er PO 450 mg BEDTIME CAROLINE Administration Metformin HCl 1,000 mg 10/11/20 08:00 10/11/20 08:02 Metformin Hcl 1,000 Mg Tablet PO 1,000 mg BIDWM CAROLINE Administration Methylprednisolone Sodium Succinate 40 mg 10/10/20 23:00 10/11/20 05:54 Methylprednisolone Sod Succ/Pf 40 Mg/Ml Vial IVPUSH 40 mg Q8H CAROLINE Administration Nicotine 14 mg 10/11/20 09:00 10/11/20 08:02 Nicotine 14 Mg Patch.Td24 TRANSDERMA 14 mg DAILY CAROLINE Administration Pharmacy Consult 1 each 10/10/20 14:25 Consult Rx Perform Med Rec MISCELLANE ONCE PRN Consult order Sodium Chloride 3 ml 10/11/20 00:00 10/11/20 08:09 0.9 % Sodium Chloride Flush 3 Ml Syringe IVFLUSH 3 ml QSHIFT CAROLINE Administration Tamsulosin HCl 0.4 mg 10/11/20 17:30 Tamsulosin Hcl 0.4 Mg Capsule PO DAILY@1730 [facility] Labs CBC & Chem 7: 10/11/20 06:45 10/11/20 06:45 Assessment and Plan (1) Loculated pleural effusion: Problem details: small loculated pockets, not warrent drainage at this time. I am concern for the possibility of Mesothelioma with his asbestos disease. Will need to follow closely Status: Acute (2) Pneumonia: Problem details: CAP Status: Acute (3) Acute hyponatremia: Status: Acute Assessment and Plan: 55-year-old man admitted with community-acquired pneumonia, parapneumonic effusion and hyponatremia Community-acquired pneumonia with Parapneumonic effusion No sepsis.Negative COVID. - Rocephin and doxycycline. Follow cultures. COPD exacerbation. Solu-Medrol, duo nebs, supplemental oxygen as needed. Robitussin for cough Hyponatremia. Has corrected too fast, from 128 to 141 overnight. D5 to ree quilibarate. Nephro consult, recheck sodium at noon Schizophrenia. Continue home medications. Diabetes mellitus. Sliding scale, ADA diet, continue glipizide, long-acting insulin, metformin. Hypothyroidism. Continue levothyroxine. Hypertension. Continue atenolol. Hyperlipidemia. Continue statin. Smoker. NRT, discussed the importance of cessation. DVT prophylaxis with Lovenox.
[2020-10-11] MEDS: fluPHENAZine HCl 2.5 MG TABLET PO ×2 (10:35→21:02)
[2020-10-11] MEDS: Doxycycline Hyclate 100 MG in 0.9 % Sodium Chloride 250 ML 166.67 MG IV (10:35)
[2020-10-11 11:13] LABS: Glucose, Whole Blood 181 mg/dL (60-115)
[2020-10-11] MEDS: cloZAPine 25 MG TABLET 50 MG PO ×2 (12:02→21:02)
[2020-10-11 12:03] LABS: Erythrocyte Sedimentation Rate 3 MM/HR (0-15)
[2020-10-11] MEDS: cefTRIAXone sodium 1 GM in 0.9 % Sodium Chloride 50 ML IV (15:35)
[2020-10-11 16:29] LABS: Anion Gap 14 (12-20); Carbon Dioxide 29 mmol/L (22-29); Chloride 100 mmol/L (96-108); Potassium 5.2 mmol/l (3.3-5.1); Sodium 138 mmol/L (135-145)
[2020-10-11 16:48] LABS: B Type Natriuretic Peptide 163 pg/mL (<100)
[2020-10-11 16:50] LABS: Glucose, Whole Blood 142 mg/dL (60-115)
[2020-10-11] MEDS: Azithromycin 500 MG in 0.9 % Sodium Chloride 250 ML 125 MG IV (16:52)
[2020-10-11] MEDS: Tamsulosin HCL 0.4 MG CAPSULE PO (16:52)
--- NOTE | 2020-10-11 18:00 | PC.NURSE ---
called skilled nursing where Pt resides to verify allergies as Pt was unable to recall what he was allergic to. staff stated that Pt was allergic to solumedrol, latex, and haldol, in addition to allergies already listed in chart. this was communitcated to , who discontinued associated meds conflicting with allergies.
--- NOTE | 2020-10-11 18:04 | PC.NURSE ---
pt 02 sat decreasing to 86% on 4L NC. placed on 5 L oxymizer and 02 sat now 90%. coarse crackles heard in all lung garcia. pt tremulous, stating he feels cold, afebrile. made aware and at bedside to see pt. BNP and respiratory panel ordered. fluids stopped. SR/ST on tele. pt able to sit up and eat dinner. one assist to commode.
--- NOTE | 2020-10-11 18:06 | PM.CNNEP ---
History of Present Illness Reason for Consult Consult date: 10/11/20 Reason for consult: hyponatremia Chief Complaint Chief complaint: increased sob,cough History of Present Illness Narrative: 55 y/o adm c/o SOB abnl labs including SNa 128 and elevated lactic acid level..SNa incr 128 to 136 and 141 this am.Urine studies revelaed a do=ilute urine c/w his coreectind..water diureisi. Overall feelinbetter. admists to drinking alot of fluids on.off and old rec reveal he is maintained on [place]. Asthma COPD (chronic obstructive pulmonary disease) Diabetes High cholesterol HTN (hypertension) Schizophrenia Traumatic brain injury Review of Systems Review of Systems Denies any recent fever chills or decrease in appetite respiratory denies any shortness of breath coverage production cardiovascular is adjustment of any PND or edema gastrointestinal See HPI genitourinary denies any dysuria frequency or hematuria musculoskeletal denies any joint pain or swelling neuropsych denies any weakness or seizures all other systems reviewed are negative Constitutional: Denies headache(s) and Denies weakness Denies dizziness and Denies headache(s) Musculoskeletal: Denies numbness and Denies tingling Reports system reviewed and no additional complaints, except as documented, Denies Abnormal speech present, Denies dizziness, Denies headache(s), Denies numbness, Denies tingling and Denies weakness [facility] Past Medical History Medical History (Updated 10/11/20 @ 10:09 by Dominic Mayo MD) Asbestos-induced pleural plaque Asthma COPD (chronic obstructive pulmonary disease) Diabetes High cholesterol HTN (hypertension) Loculated pleural effusion Schizophrenia Traumatic brain injury Social History Social History (Updated 10/10/20 @ 20:27 by Gisel Mayo NP) Household Members: Caregiver and Other Household Members Other:: assisted Housing: House Smoking Status: Current every day smoker Packs Per Day: 1.5 Use of substances other than those prescribed or required for medical reasons: No Substance Use Type: Marijuana Substance Use Frequency: Occasionally Currently Displaying Signs/Symptoms of Drug Intoxication Withdrawal: No Have you been hit, kicked, punched, or otherwise hurt by someone within the past year? If so, by whom?: No Do you feel safe in your current relationship?: No Current Relationship Is there a partner from a previous relationship who is making you feel unsafe now?: No Are you made to feel afraid or neglected: No Advance Directives: No Advance Directives Information Provided: No Do you have thoughts of harming others: None Do you have a plan to hurt others: No Plan Recently lost weight without trying: No service: No Current occupational status: disabled Meds Allergies Allergy/AdvReac Type Severity Reaction Status Date / Time amoxicillin [AMOXICILLIN] Allergy Intermediate SKIN RASH Verified 10/11/20 17:00 egg [EGGS] Allergy Intermediate HIVES, Verified 10/11/20 17:00 VOMITING Penicillins [PENICILLINS] Allergy Intermediate SKIN RASH Verified 10/11/20 17:00 Sulfa (Sulfonamide Allergy Intermediate SKIN RASH Verified 10/11/20 17:00 Antibiotics) [SULFA (SULFONAMIDE ANTIBIOTICS)] trimethoprim [TRIMETHOPRIM] Allergy Intermediate SKIN RASH Verified 10/11/20 17:00 penicillin V Allergy Unknown Unknown Verified 10/10/20 14:35 haloperidol [From Haldol] Allergy Unknown Verified 10/11/20 16:16 Latex, Natural Rubber Allergy Unknown Verified 10/11/20 16:16 methylprednisolone Allergy Unknown Verified 10/11/20 16:16 [From Solu-Medrol] penicillin Allergy Unknown Unknown Uncoded 10/10/20 14:35 sultamicillin Allergy Unknown Unknown Uncoded 10/10/20 14:35 trimethoprim Allergy Unknown Unknown Uncoded 10/10/20 14:35 Home Medications Medication Instructions Recorded Confirmed Type albuterol sulfate [Ventolin HFA] 1 puff INHALATION Q6H PRN 10/10/20 10/10/20 History atenolol 25 mg PO TID 10/10/20 10/10/20 History atorvastatin 40 mg PO BEDTIME 10/10/20 10/10/20 History benztropine 1 tab PO BID 10/10/20 10/10/20 History clozapine 50 mg PO DAILY 10/10/20 10/10/20 History clozapine 150 mg PO BEDTIME 10/10/20 10/10/20 History divalproex 1 tab PO DAILY 10/10/20 10/10/20 History fluphenazine HCl 1 tab PO BID 10/10/20 10/10/20 History gabapentin 1 tab PO TID 10/10/20 10/10/20 History glipizide 1 tab PO BIDWM 10/10/20 10/10/20 History insulin detemir U-100 [Levemir 30 unit SUBCUT BEDTIME 10/10/20 10/10/20 History FlexTouch U-100 Insuln] insulin detemir U-100 [Levemir 45 unit SUBCUT DAILY 10/10/20 10/10/20 History FlexTouch U-100 Insuln] levothyroxine 1 tab PO DAILY 10/10/20 10/10/20 History lithium carbonate 300 mg PO DAILY 10/10/20 10/10/20 History lithium carbonate 450 mg PO BEDTIME 10/10/20 10/10/20 History metformin 1 tab PO BIDWM 10/10/20 10/10/20 History tamsulosin 1 cap PO DAILY 10/10/20 10/10/20 History Physical Exam Vital Signs: Last Vital Signs Temp 98.5 F 10/11/20 15:16 Pulse 85 10/11/20 15:16 Resp 20 10/11/20 15:16 BP 136/65 10/11/20 15:16 Pulse Ox 93 10/11/20 15:16 Body Mass Index 30.4 Const General: cooperative, healthy appearing, comfortable, no acute distress and alert Orientation/consciousness: patient oriented x3 Limitations: no limitations [facility] Head: Yes normal to inspection Ears: hearing grossly normal bilaterally General nose exam: Normal external nose present, Abnormal external nose present and Nasal discharge present Face and sinus: Yes normal facial exam Mouth: Normal oral and palatal mucosa present Throat: Yes posterior oropharynx normal Eyes General: appearance normal, both eyes and all related structures Pupils: Equal, round and reactive pupils present Neck Neck: Yes normal visual inspection, Yes full ROM and Yes no lymphadenopathy Chest Chest palpation & inspection: normal inspection of the chest Resp Other: Rhonchi bebe Effort & Inspection: normal respiratory effort Auscultation: clear to auscultation bilaterally and diminished lung sounds Cardio Rate: regular rate Rhythm: regular rhythm Heart sounds: S1 normal heart sound present and S2 normal heart sound present Peripheral pulses: Peripheral pulses 2+ throughout GI Other: Non tender, nomal BS Inspection: Yes normal to inspection Palpation (GI): Soft to palpation and nontender Auscultation: normal bowel sounds General: Yes no CVA tenderness Back/Spine/Pelvis Back: no CVA tenderness Thoracic/Lumbar Spine: thoracic and lumbar spine normal to inspection Skin General skin exam: no rashes or lesions noted Neuro General: patient oriented x3, no focal motor deficits and normal sensation to monofilament Cranial nerves: Yes Equal, round and reactive pupils present Cognition (Neuro): normal cognition Speech: No Abnormal speech present Gait exam (Neuro): Normal gait present Motor exam (neuro): 5/5 motor strength present throughout Extrem General: Yes normal to inspection Right lower extremity: edema Details: pitting and 1+ Left lower extremity: edema Details: pitting and 1+ Psych Other: normal affect Results Lab Results Result Diagrams: 10/11/20 06:45 10/11/20 15:42 Lab results: Chemistry 10/10/20 10/10/20 10/11/20 15:39 22:24 06:45 Sodium 128 L 136 141 Potassium 4.9 5.0 Carbon Dioxide 28 32 H BUN 4 L 4 L Creatinine 0.69 0.60 Calcium 8.3 L 8.6 10/11/20 15:42 Sodium 138 Potassium 5.2 H Carbon Dioxide 29 BUN Creatinine Calcium Hematology 10/10/20 10/11/20 15:39 06:45 WBC 11.3 H 8.5 Hgb 13.4 L 12.5 L Plt Count 305 328 Urine Studies 10/10/20 20:22 Urine Osmolality 130 L Assessment and Plan (1) Loculated pleural effusion: Problem details: small loculated pockets, not warrent drainage at this time. I am concern for the possibility of Mesothelioma with his asbestos disease. Will need to follow closely Status: Acute (2) Pneumonia: Qualifiers: Laterality: right Lung location: lower lobe of lung Pneumonia type: due to unspecified organism Qualified Code(s): J18.9 - Pneumonia, unspecified organism Problem details: CAP Status: Acute (3) Acute hyponatremia: Status: Acute Euvolemic HypoNa: unclear what precipitaed the event but he is correcting relatively rapidly on his own with Sna incer 128 to 141 in less than 24 hrs..repeat SNa now 138 after IV D5W. remains unclear if he has underling NDI from his Li use as his low UOsm and correction may simply d/t the correction of his hypoNa and may have pschogfenic polydsia that caused the hypoNa.. in the past he has had a SNa as low as 131 but that was years ago. REC: do not fluid restrict and track SNA and repeat Uosm; given SNa is at 10 meq in 24 hrs which ist inthe top end of what is acceptable no further intervention needed but should avid his deveoloping HyperNa. Checj repeat SNA now and repeat agin in am ..but sooner if SNa incr or decr signif
[2020-10-11 19:54] LABS: Glucose Random 174 mg/dL (60-115)
[2020-10-11 19:55] LABS: Anion Gap 14 (12-20); Carbon Dioxide 30 mmol/L (22-29); Chloride 100 mmol/L (96-108); Potassium 5.3 mmol/l (3.3-5.1); Sodium 139 mmol/L (135-145)
[2020-10-11 20:05] LABS: Osmolality, Serum 298 mosm/kg (281-305)
[2020-10-11 20:43] LABS: Glucose, Whole Blood 154 mg/dL (60-115)
[2020-10-11] MEDS: Insulin Glargine,Hum.rec.anlog 100 UNIT/ML 10 ML VIAL 21 UNIT SUBCUT (20:59)
[2020-10-11] MEDS: Lithium Carbonate ER 450 MG TABLET.ER PO (21:02)
[2020-10-11] MEDS: cloZAPine 100 MG TABLET PO (21:02)
[2020-10-11] MEDS: Atorvastatin Calcium 40 MG TABLET PO (21:36)
[2020-10-11 22:13] LABS: Osmolality Urine 246 mosm/kg (373-1093)
[2020-10-11] MEDS: Enoxaparin Sodium 40 MG/0.4 ML SYRINGE SUBCUT (23:18)
[2020-10-11] MEDS: Doxycycline Hyclate 100 MG in 0.9 % Sodium Chloride 250 ML 166 MG IV (23:19)
[2020-10-12] VITALS (13 sets, daily range): BP systolic 108–140; BP diastolic 47–82; PULSE 70–92; RESP 18–22; TEMP 36.2–37.4; O2SAT 90–96
[2020-10-12] MEDS: Levothyroxine Sodium 150 MCG TABLET PO (05:01)
--- NOTE | 2020-10-12 07:00 | XR_ITS ---
EXAMINATION: XR CHEST CLINICAL INFORMATION: Pneumonia. Pleural effusion. COMPARISON: October 10, 2020 and June 18, 2019 TECHNIQUE: 2 views of the chest were obtained. FINDINGS: There has been some improvement in right base disease since previous study. There remain patchy regions of disease bilaterally predominantly in the lower lobes and mid left lung. Small right pleural effusion present. Heart normal size. No evidence of pulmonary edema. XR/XR chest 2V IMPRESSION: Some improvement in right lower lobe disease however still consolidation present at both lung bases. Small right pleural effusion.
[2020-10-12 07:22] LABS: Glucose, Whole Blood 37 mg/dL (60-115)
[2020-10-12 07:43] LABS: Glucose, Whole Blood 53 mg/dL (60-115)
[2020-10-12] MEDS: Albuterol/Iprat 2.5/0.5MG 3 ML AMPUL.NEB INHALE ×4 (07:43→19:42)
[2020-10-12 07:59] LABS: Glucose, Whole Blood 155 mg/dL (60-115)
[2020-10-12] MEDS: Gabapentin 600 MG TABLET PO ×3 (09:21→21:16)
[2020-10-12] MEDS: fluPHENAZine HCl 2.5 MG TABLET PO ×2 (09:21→21:16)
[2020-10-12] MEDS: Lithium Carbonate ER 300 MG TABLET.ER PO (09:22)
[2020-10-12] MEDS: cloZAPine 25 MG TABLET 50 MG PO ×2 (09:22→21:15)
[2020-10-12] MEDS: atenoloL 25 MG TABLET PO ×2 (09:22→16:23)
[2020-10-12] MEDS: Divalproex Sodium ER 250 MG TAB.ER.24H PO (09:22)
[2020-10-12] MEDS: Benztropine Mesylate 1 MG TABLET PO ×2 (09:22→21:16)
[2020-10-12] MEDS: Nicotine 14 MG PATCH.TD24 TRANSDERMA (09:22)
[2020-10-12] MEDS: 0.9 % Sodium Chloride Flush 3 ML SYRINGE IVFLUSH ×3 (09:23→21:22)
[2020-10-12 09:55] LABS: Glucose, Whole Blood 194 mg/dL (60-115)
[2020-10-12 10:09] LABS: Anion Gap 13 (12-20); Carbon Dioxide 33 mmol/L (22-29); Chloride 97 mmol/L (96-108); Potassium 4.5 mmol/l (3.3-5.1); Sodium 138 mmol/L (135-145)
[2020-10-12] MEDS: Doxycycline Hyclate 100 MG in 0.9 % Sodium Chloride 250 ML 166 MG IV ×2 (11:27→22:54)
--- NOTE | 2020-10-12 11:36 | MHC.CM.PN ---
Patient is receiving IV ABT for PNA and not yet medically cleared to return to his [facility]. CM will continue to follow for dc planning and the possible need to adjust the dc plan.
[2020-10-12 11:37] LABS: Glucose, Whole Blood 163 mg/dL (60-115)
--- NOTE | 2020-10-12 15:52 | HO.PM.IMPN ---
Subjective Subjective Date of Service: 10/12/20 Interval History: Seen in f/u for SOB in settting of loculated P. effusion. hypoglycemia this morning bROS. No chest pain no so Physical Exam Vital Signs: Vital Signs: Last Vital Signs Temp 98.9 F 10/12/20 11:59 Pulse 77 10/12/20 12:28 Resp 18 10/12/20 11:59 BP 108/56 L 10/12/20 11:59 Pulse Ox 95 10/12/20 13:09 Body Mass Index 30.4 General: AO X 3, no acute distress Resp: normal lung expension CVS: S1,S2,RRR. 2+ pitting edema bebe GI: +BS, NT, no distention Skin: No rash Neuro: motor grossly intact Psych: appropriate affect Objective Data Current Medications Generic Name Dose Route Start Last Admin Trade Name Freq PRN Reason Stop Dose Admin Acetaminophen 650 mg 10/10/20 22:21 Acetaminophen 325 Mg Tablet PO Q6H PRN Pain, Mild (Pain Scale 1-3) Albuterol/Ipratropium 3 ml 10/11/20 08:00 10/12/20 12:28 Albuterol/Iprat 2.5/0.5mg 3 Ml Ampul.Neb INHALE 3 ml RQ4H WHILE AWAKE CAROLINE Administration Atenolol 25 mg 10/10/20 22:21 10/12/20 09:22 Atenolol 25 Mg Tablet PO 25 mg TID CAROLINE Administration Protocol Atorvastatin Calcium 40 mg 10/10/20 22:21 10/11/20 21:36 Atorvastatin Calcium 40 Mg Tablet PO 40 mg BEDTIME CAROLINE Administration Benztropine Mesylate 1 mg 10/11/20 09:00 10/12/20 09:22 Benztropine Mesylate 1 Mg Tablet PO 1 mg BID CAROLINE Administration Clozapine 50 mg 10/11/20 11:30 10/12/20 09:22 Clozapine 25 Mg Tablet PO 50 mg DAILY CAROLINE Administration Clozapine 100 mg 10/11/20 21:00 10/11/20 21:02 Clozapine 100 Mg Tablet PO 100 mg BEDTIME CAROLINE Administration Clozapine 50 mg 10/11/20 21:00 10/11/20 21:02 Clozapine 25 Mg Tablet PO 50 mg BEDTIME CAROLINE Administration Divalproex Sodium 250 mg 10/11/20 09:00 10/12/20 09:22 Divalproex Sodium Er 250 Mg Tab.Er.24h PO 250 mg DAILY CAROLINE Administration Enoxaparin Sodium 40 mg 10/10/20 23:00 10/11/20 23:18 Enoxaparin Sodium 40 Mg/0.4 Ml Syringe SUBCUT 40 mg Q24H CAROLINE Administration Fluphenazine HCl 2.5 mg 10/10/20 22:21 10/12/20 09:21 Fluphenazine Hcl 2.5 Mg Tablet PO 2.5 mg BID CAROLINE Administration Gabapentin 600 mg 10/10/20 22:21 10/12/20 09:21 Gabapentin 600 Mg Tablet PO 600 mg TID CAROLINE Administration Glipizide 10 mg 10/11/20 08:00 10/12/20 09:23 Glipizide Xl 10 Mg Tab.Er.24 PO Not Given BIDWM CAROLINE Azithromycin 500 mg/ Sodium 250 mls @ 125 mls/hr 10/11/20 18:00 10/11/20 19:31 Chloride IV Infused Q24H [facility] Infusion Ceftriaxone Sodium 1 gm/ 50 mls @ 100 mls/hr 10/11/20 16:00 10/11/20 16:05 Sodium Chloride IV Infused Q24H [facility] Infusion Doxycycline Hyclate 100 mg/ 250 mls @ 166.67 mls/hr 10/10/20 23:00 10/12/20 13:05 Sodium Chloride IV Infused Q12H [facility] Infusion Insulin Glargine 32 unit 10/11/20 09:00 10/12/20 09:24 Insulin Glargine,Hum.Rec.Anlog 100 Unit/Ml 10 Ml Vial SUBCUT Not Given DAILY CAROLINE Insulin Glargine 21 unit 10/11/20 21:00 10/11/20 20:59 Insulin Glargine,Hum.Rec.Anlog 100 Unit/Ml 10 Ml Vial SUBCUT 21 unit BEDTIME CAROLINE Administration Insulin Human Lispro 0 unit 10/10/20 22:21 10/12/20 11:45 Insulin Lispro 100 Unit/Ml 3 Ml Vial SUBCUT Not Given QIDACHS [facility] Protocol Levothyroxine Sodium 150 mcg 10/11/20 06:00 10/12/20 05:01 Levothyroxine Sodium 150 Mcg Tablet PO 150 mcg DAILY@0600 CAROLINE Administration [place] Carbonate 300 mg 10/11/20 09:00 10/12/20 09:22 [place] Carbonate Er 300 Mg Tablet.Er PO 300 mg DAILY CAROLINE Administration [place] Carbonate 450 mg 10/10/20 22:21 10/11/20 21:02 [place] Carbonate Er 450 Mg Tablet.Er PO 450 mg BEDTIME CAROLINE Administration Metformin HCl 1,000 mg 10/11/20 08:00 10/12/20 09:19 Metformin Hcl 1,000 Mg Tablet PO Not Given BIDWM CAROLINE Nicotine 14 mg 10/11/20 09:00 10/12/20 09:22 Nicotine 14 Mg Patch.Td24 TRANSDERMA 14 mg DAILY CAROLINE Administration Pharmacy Consult 1 each 10/10/20 14:25 Consult Rx Perform Med Rec MISCELLANE ONCE PRN Consult order Sodium Chloride 3 ml 10/11/20 00:00 10/12/20 09:23 0.9 % Sodium Chloride Flush 3 Ml Syringe IVFLUSH 3 ml QSHIFT [facility] Administration Tamsulosin HCl 0.4 mg 10/11/20 17:30 10/11/20 16:52 Tamsulosin Hcl 0.4 Mg Capsule PO 0.4 mg DAILY@1730 [facility] Administration Labs CBC & Chem 7: 10/11/20 06:45 10/12/20 09:20 Microbiology Microbiology Results: Microbiology 10/10/20 15:55 Blood - Venous Blood Culture - Preliminary No growth after 24 hours. 10/10/20 15:39 Blood - Venous Blood Culture - Preliminary No growth after 24 hours. Assessment and Plan (1) Loculated pleural effusion: Problem details: small loculated pockets, not warrent drainage at this time. I am concern for the possibility of Mesothelioma with his asbestos disease. Will need to follow closely Status: Acute (2) Pneumonia: Problem details: CAP Status: Acute (3) Acute hyponatremia: Status: Acute Assessment and Plan: 55-year-old man admitted with community-acquired pneumonia, parapneumonic effusion and hyponatremia Community-acquired pneumonia with Parapneumonic effusion No sepsis.Negative COVID. - Rocephin and doxycycline. Follow cultures. COPD exacerbation. Solu-Medrol, duo nebs, supplemental oxygen as needed. Robitussin for cough Hyponatremia. Resolved Schizophrenia. Continue home medications. Diabetes mellitus. Hold meds due to hypoglycemia Hypothyroidism. Continue levothyroxine. Hypertension. Continue atenolol. Hyperlipidemia. Continue statin. Smoker. NRT, discussed the importance of cessation. DVT prophylaxis with Lovenox.
[2020-10-12] MEDS: cefTRIAXone sodium 1 GM in 0.9 % Sodium Chloride 50 ML IV (16:24)
[2020-10-12] MEDS: Tamsulosin HCL 0.4 MG CAPSULE PO (16:24)
[2020-10-12 16:39] LABS: Glucose, Whole Blood 129 mg/dL (60-115)
--- NOTE | 2020-10-12 16:59 | PC.NURSE ---
lab called this am saying resp panel was in wrong media & we needed new order- if we wanted panel - MD notified of need of new order if wanted resp panel complete. not new order @ this time - if goes in will obtain specimen.
[2020-10-12] MEDS: Azithromycin 500 MG in 0.9 % Sodium Chloride 250 ML 125 MG IV (17:36)
--- NOTE | 2020-10-12 18:27 | PC.NURSE ---
pt being very disruptive- calling out about aliens and taking off o2. RN trying to put o2 back on- pt saying I am gassing him and trying to blow up his place. o2 88% on room air. PT asking for mortuary technician to be called - RN contacted security asking them to come to room to calm pt down. PT said he will put o2 on if mortuary technician make sure its safe. Security to room trying to calm pt down. RN and security talking w/patient for approx 20 min - pt finally agreeable to put o2 back on. 92% on 3l NC. Assured pt if needed to talks to Pulverizer Tender again to contact RN. Will cont to montior. on continous pulseox at this time.
--- NOTE | 2020-10-12 18:53 | P.PNNP_ITS ---
Subjective Subjective Date of Service: 10/12/20 Interval history: seen and examined. Events noted sNa remains in normal range Physical Exam Vital Signs: Vital Signs: Last Vital Signs Temp 97.3 F 10/12/20 16:00 Pulse 88 10/12/20 16:23 Resp 18 10/12/20 16:00 BP 118/64 10/12/20 16:23 Pulse Ox 91 L 10/12/20 16:00 Body Mass Index 30.4 Const: General: cooperative, healthy appearing, comfortable, no acute distress and alert Orientation/consciousness: patient oriented x3 Limitations: no limitations HENMT: Head: Yes normal to inspection Ears: hearing grossly normal bilaterally General nose exam: Normal external nose present, Abnormal external nose present and Nasal discharge present Face and sinus: Yes normal facial exam Mouth: Normal oral and palatal mucosa present Throat: Yes posterior oropharynx normal Eyes: General: appearance normal, both eyes and all related structures Pupils: Equal, round and reactive pupils present Neck: Neck: Yes normal visual inspection, Yes full ROM and Yes no lymphadenopathy Chest: Chest palpation & inspection: normal inspection of the chest Resp: Other: Rhonchi bebe Effort & Inspection: normal respiratory effort Auscultation: clear to auscultation bilaterally and diminished lung sounds Cardio: Rate: regular rate Rhythm: regular rhythm Heart sounds: S1 normal heart sound present and S2 normal heart sound present Peripheral pulses: Peripheral pulses 2+ throughout GI: Other: Non tender, nomal BS Inspection: Yes normal to inspection Palpation (GI): Soft to palpation and nontender Auscultation: normal bowel s ounds : General: Yes no CVA tenderness Back/Spine/Pelvis: Back: no CVA tenderness Thoracic/Lumbar Spine: thoracic and lumbar spine normal to inspection Skin: General skin exam: no rashes or lesions noted Neuro: General: patient oriented x3, no focal motor deficits and normal sensation to monofilament Cranial nerves: Yes Equal, round and reactive pupils present Cognition (Neuro): normal cognition Speech: No Abnormal speech present Gait exam (Neuro): Normal gait present Motor exam (neuro): 5/5 motor strength present throughout Extrem: General: Yes normal to inspection Right lower extremity: edema Details: pitting and 1+ Left lower extremity: edema Details: pitting and 1+ Psych: Other: normal affect Assessment & Plan Assessment and plan (1) Loculated pleural effusion: Problem details: small loculated pockets, not warrent drainage at this time. I am concern for the possibility of Mesothelioma with his asbestos disease. 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 It still remains unlcaerwhat transired to cause the low SNa on adm...ques excess PO fud intkae event REC: no new recs; track Lytes as outpt in 1 month and if renmian stale then q 3- 4 months Time Spent With Patient Time: Total time spent is greater than 50% in coordination of care (as documented) at patient's floor/unit and/or counseling patient:
[2020-10-12] MEDS: Furosemide 20 MG/2 ML VIAL IVPUSH (19:19)
[2020-10-12] MEDS: Lithium Carbonate ER 450 MG TABLET.ER PO (21:15)
[2020-10-12] MEDS: cloZAPine 100 MG TABLET PO (21:15)
[2020-10-12] MEDS: Atorvastatin Calcium 40 MG TABLET PO (21:16)
[2020-10-12 21:29] LABS: Glucose, Whole Blood 233 mg/dL (60-115)
[2020-10-12] MEDS: Enoxaparin Sodium 40 MG/0.4 ML SYRINGE SUBCUT (22:54)
[2020-10-13] VITALS (11 sets, daily range): BP systolic 106–149; BP diastolic 53–73; PULSE 74–92; RESP 18–20; TEMP 36.4–36.8; O2SAT 88–100
[2020-10-13] MEDS: Levothyroxine Sodium 150 MCG TABLET PO (05:09)
[2020-10-13 07:43] LABS: Glucose, Whole Blood 116 mg/dL (60-115)
[2020-10-13] MEDS: Lithium Carbonate ER 300 MG TABLET.ER PO (08:27)
[2020-10-13] MEDS: Divalproex Sodium ER 250 MG TAB.ER.24H PO (08:27)
[2020-10-13] MEDS: Gabapentin 600 MG TABLET PO ×2 (08:27→21:11)
[2020-10-13] MEDS: cloZAPine 25 MG TABLET 50 MG PO ×2 (08:27→21:10)
[2020-10-13] MEDS: fluPHENAZine HCl 2.5 MG TABLET PO ×2 (08:27→21:12)
[2020-10-13] MEDS: atenoloL 25 MG TABLET PO ×2 (08:27→21:24)
[2020-10-13] MEDS: Benztropine Mesylate 1 MG TABLET PO ×2 (08:27→21:12)
[2020-10-13] MEDS: 0.9 % Sodium Chloride Flush 3 ML SYRINGE IVFLUSH ×2 (08:27→14:22)
[2020-10-13] MEDS: Nicotine 14 MG PATCH.TD24 TRANSDERMA (08:27)
[2020-10-13] MEDS: Albuterol/Iprat 2.5/0.5MG 3 ML AMPUL.NEB INHALE ×3 (11:15→20:29)
[2020-10-13 12:02] LABS: Glucose, Whole Blood 243 mg/dL (60-115)
[2020-10-13] MEDS: Insulin Lispro 100 UNIT/ML 3 ML VIAL SUBCUT ×3 (12:27→21:27)
[2020-10-13] MEDS: Doxycycline Hyclate 100 MG in 0.9 % Sodium Chloride 250 ML 166.67 MG IV ×2 (12:28→23:59)
--- NOTE | 2020-10-13 13:42 | P.PNPL_ITS ---
Subjective Subjective Date of Service: 10/13/20 Interval history: The patient was seen and examined. He feels a little better. His white count nor normalized. His x-ray looks a little better. Now trying to wean off oxygen. He was able to go from 3-2 L. Objective Data Labs CBC & Chem 7: 10/11/20 06:45 10/12/20 09:20 Labs: Laboratory Results - last 24 hr 10/12/20 10/12/20 10/13/20 16:36 21:13 07:39 POC Glucose 129 H 233 H 116 H 10/13/20 11:59 POC Glucose 243 H Microbiology Microbiology Results: Microbiology 10/10/20 15:55 Blood - Venous Blood Culture - Preliminary No growth after 48 hours. 10/10/20 15:39 Blood - Venous Blood Culture - Preliminary No growth after 48 hours. Review of Systems Constitutional: Denies headache(s) and Denies weakness Denies dizziness, Denies headache(s), Denies lip swelling and Denies tongue swelling Cardiovascular: Denies chest pain and Reports dyspnea Respiratory: Reports cough and Reports dyspnea Gastrointestinal: Denies abdominal pain Musculoskeletal: Denies numbness and Denies tingling Reports system reviewed and no additional complaints, except as documented, Denies dizziness, Denies headache(s), Denies numbness, Denies tingling and Denies weakness Psychiatric: Denies no additional psychiatric complaints Hematologic/Lymphatic: Denies easy bleeding and Denies lymphadenopathy Allergic/Immunologic: Denies lip swelling and Denies tongue swelling Physical Exam Vital Signs: Vital Signs: Last Vital Signs Temp 97.7 F 10/13/20 12:00 Pulse 74 10/13/20 12:00 Resp 20 10/13/20 12:00 BP 106/54 L 10/13/20 12:00 Pulse Ox 90 L 10/13/20 12:00 Body Mass Index 30.4 Const: General: alert HENMT: General nose exam: Abnormal external nose present and Nasal discharge present Eyes: Pupils: Equal, round and reactive pupils present Neck: Neck: Yes normal visual inspection, Yes full ROM and Yes no lymphadenopathy Chest: Chest palpation & inspection: normal inspection of the chest Resp: Auscultation: diminished lung sounds Cardio: Rate: regular rate Rhythm: regular rhythm Heart sounds: S1 normal heart sound present and S2 normal heart sound present GI: Palpation (GI): Soft to palpation and nontender Auscultation: normal bowel sounds Skin: General skin exam: rashes and/or lesions noted Neuro: Cranial nerves: Yes Equal, round and reactive pupils present Assessment and Plan Assessment and plan (1) Loculated pleural effusion: Problem details: small loculated pockets, not warrent drainage at this time. I am concern for the possibility of Mesothelioma with his asbestos disease. Will need to follow closely Status: Acute Assessment and Plan: Continue treating patient with antibiotics for complicated lower respiratory infection. Will recommend 14 days of antibiotics (2) Asbestos-induced pleural plaque: Status: Acute (3) Pneumonia: Problem details: CAP Status: Acute Assessment and Plan: Complete 14 days of antibiotics. Can switch to Vantin and doxycycline as an outpatient Will recommend follow up with Pulmonary in 1-2 weeks (4) Hypoxia: Problem details: Likely from V/Q mismatch from the lower respiratory process. Also has known asbestos related lung Status: Acute Assessment and Plan: Out of bed as tolerated Incentive spirometer Wean oxygen to maintain a pulse ox above 90% Once he is discharged from the hospital he should follow up with Pulmonary in 1- 2 weeks. I will make arrangements. Time Spent With Patient Time: Total time spent is greater than 50% in coordination of care (as documented) at patient's floor/unit and/or counseling patient: Time with patient: 15 - 24 minutes
[2020-10-13 16:57] LABS: Glucose, Whole Blood 220 mg/dL (60-115)
[2020-10-13] MEDS: cefTRIAXone sodium 1 GM in 0.9 % Sodium Chloride 50 ML IV (17:21)
[2020-10-13] MEDS: Tamsulosin HCL 0.4 MG CAPSULE PO (17:24)
--- NOTE | 2020-10-13 18:07 | HO.PM.IMPN ---
Subjective Subjective Date of Service: 10/13/20 Interval History: Seen in f/u for SOB in settting of loculated P. effusion. hypoglycemia this morning bROS. No chest pain no so Review of Systems Gen: no fever Resp: no sob, no cough CV: no chest, no HERNANDEZ, no leg edema GI: No n/v, no abd pain Neuro: No confusion Physical Exam Vital Signs: Vital Signs: Last Vital Signs Temp 98.1 F 10/13/20 15:34 Pulse 83 10/13/20 15:36 Resp 18 10/13/20 15:34 BP 136/63 10/13/20 15:34 Pulse Ox 92 10/13/20 15:34 Body Mass Index 30.4 General: Alertn no acute distress Resp: rhochi, rales at bases CVS: S1,S2,RRR GI: +BS, NT, no distention Skin: No rash Neuro: motor grossly intact Psych: appropriate affect Objective Data Current Medications Generic Name Dose Route Start Last Admin Trade Name Freq PRN Reason Stop Dose Admin Acetaminophen 650 mg 10/10/20 22:21 Acetaminophen 325 Mg Tablet PO Q6H PRN Pain, Mild (Pain Scale 1-3) Albuterol/Ipratropium 3 ml 10/11/20 08:00 10/13/20 15:34 Albuterol/Iprat 2.5/0.5mg 3 Ml Ampul.Neb INHALE 3 ml RQ4H WHILE AWAKE CAROLINE Administration Atenolol 25 mg 10/10/20 22:21 10/13/20 15:22 Atenolol 25 Mg Tablet PO Not Given TID CAROLINE Protocol Atorvastatin Calcium 40 mg 10/10/20 22:21 10/12/20 21:16 Atorvastatin Calcium 40 Mg Tablet PO 40 mg BEDTIME CAROLINE Administration Benztropine Mesylate 1 mg 10/11/20 09:00 10/13/20 08:27 Benztropine Mesylate 1 Mg Tablet PO 1 mg BID CAROLINE Administration Clozapine 50 mg 10/11/20 11:30 10/13/20 08:27 Clozapine 25 Mg Tablet PO 50 mg DAILY CAROLINE Administration Clozapine 100 mg 10/11/20 21:00 10/12/20 21:15 Clozapine 100 Mg Tablet PO 100 mg BEDTIME CAROLINE Administration Clozapine 50 mg 10/11/20 21:00 10/12/20 21:15 Clozapine 25 Mg Tablet PO 50 mg BEDTIME CAROLINE Administration Divalproex Sodium 250 mg 10/11/20 09:00 10/13/20 08:27 Divalproex Sodium Er 250 Mg Tab.Er.24h PO 250 mg DAILY CAROLINE Administration Enoxaparin Sodium 40 mg 10/10/20 23:00 10/12/20 22:54 Enoxaparin Sodium 40 Mg/0.4 Ml Syringe SUBCUT 40 mg Q24H CAROLINE Administration Fluphenazine HCl 2.5 mg 10/10/20 22:21 10/13/20 08:27 Fluphenazine Hcl 2.5 Mg Tablet PO 2.5 mg BID CAROLINE Administration Furosemide 40 mg 10/13/20 17:59 Furosemide 40 Mg/4 Ml Vial IVPUSH 10/13/20 18:00 ONCE ONE Protocol Gabapentin 600 mg 10/10/20 22:21 10/13/20 15:22 Gabapentin 600 Mg Tablet PO Not Given TID CAROLINE Azithromycin 500 mg/ Sodium 250 mls @ 125 mls/hr 10/11/20 18:00 10/12/20 20:19 Chloride IV Infused Q24H CAROLINE Infusion Ceftriaxone Sodium 1 gm/ 50 mls @ 100 mls/hr 10/11/20 16:00 10/13/20 17:57 Sodium Chloride IV Infused Q24H CAROLINE Infusion Doxycycline Hyclate 100 mg/ 250 mls @ 166.67 mls/hr 10/10/20 23:00 10/13/20 14:13 Sodium Chloride IV Infused Q12H CAROLINE Infusion Insulin Human Lispro 0 unit 10/10/20 22:21 10/13/20 17:24 Insulin Lispro 100 Unit/Ml 3 Ml Vial SUBCUT 4 unit QIDACHS CAROLINE Administration Protocol Levothyroxine Sodium 150 mcg 10/11/20 06:00 10/13/20 05:09 Levothyroxine Sodium 150 Mcg Tablet PO 150 mcg DAILY@0600 CAROLINE Administration [place] Carbonate 300 mg 10/11/20 09:00 10/13/20 08:27 [place] Carbonate Er 300 Mg Tablet.Er PO 300 mg DAILY CAROLINE Administration [place] Carbonate 450 mg 10/10/20 22:21 10/12/20 21:15 [place] Carbonate Er 450 Mg Tablet.Er PO 450 mg BEDTIME CAROLINE Administration Nicotine 14 mg 10/11/20 09:00 10/13/20 08:27 Nicotine 14 Mg Patch.Td24 TRANSDERMA 14 mg DAILY CAROLINE Administration Pharmacy Consult 1 each 10/10/20 14:25 Consult Rx Perform Med Rec MISCELLANE ONCE PRN Consult order Sodium Chloride 3 ml 10/11/20 00:00 10/13/20 14:22 0.9 % Sodium Chloride Flush 3 Ml Syringe IVFLUSH 3 ml QSHIFT CAROLINE Administration Tamsulosin HCl 0.4 mg 10/11/20 17:30 10/13/20 17:24 Tamsulosin Hcl 0.4 Mg Capsule PO 0.4 mg DAILY@1730 [facility] Administration Labs CBC & Chem 7: 10/11/20 06:45 10/12/20 09:20 Microbiology Microbiology Results: Microbiology 10/10/20 15:55 Blood - Venous Blood Culture - Preliminary No growth after 48 hours. 10/10/20 15:39 Blood - Venous Blood Culture - Preliminary No growth after 48 hours. Assessment and Plan (1) Loculated pleural effusion: Problem details: small loculated pockets, not warrent drainage at this time. I am concern for the possibility of Mesothelioma with his asbestos disease. Will need to follow closely Status: Acute (2) Pneumonia: Problem details: CAP Status: Acute (3) Acute hyponatremia: Status: Acute Assessment and Plan: 55-year-old man admitted with community-acquired pneumonia, parapneumonic effusion and hyponatremia Community-acquired pneumonia with Parapneumonic effusion No sepsis.Negative COVID. - Rocephin and doxycycline. Change to PO in the morning Follow cultures. COPD exacerbation. Solu-Medrol--> Prednisone tomorrow, duo nebs, supplemental oxygen as needed. Robitussin for cough Hyponatremia. Resolved Schizophrenia. Continue home medications. Diabetes mellitus. Restart Lantus at 10 tonight Hypothyroidism. Continue levothyroxine. Hypertension. Continue atenolol. Hyperlipidemia. Continue statin. Generalized swelling in legs likely from IVF, IV Lasix x 1 Smoker. NRT, discussed the importance of cessation. DVT prophylaxis with Lovenox.
[2020-10-13] MEDS: Azithromycin 500 MG in 0.9 % Sodium Chloride 250 ML 125 MG IV (18:08)
[2020-10-13] MEDS: Furosemide 40 MG/4 ML VIAL IVPUSH (18:12)
[2020-10-13 20:22] LABS: Glucose, Whole Blood 228 mg/dL (60-115)
[2020-10-13] MEDS: Lithium Carbonate ER 450 MG TABLET.ER PO (21:11)
[2020-10-13] MEDS: cloZAPine 100 MG TABLET PO (21:11)
[2020-10-13] MEDS: Atorvastatin Calcium 40 MG TABLET PO (21:12)
[2020-10-13] MEDS: Insulin Glargine,Hum.rec.anlog 100 UNIT/ML 10 ML VIAL 10 UNIT SUBCUT (21:27)
[2020-10-13] MEDS: Enoxaparin Sodium 40 MG/0.4 ML SYRINGE SUBCUT (23:59)
[2020-10-14] VITALS (10 sets, daily range): BP systolic 119–147; BP diastolic 56–73; PULSE 73–81; RESP 18–20; TEMP 36.3–36.9; O2SAT 87–97
[2020-10-14 00:02] LABS: Anti Nuclear Antibody Screen POSITIVE (NEGATIVE); Anti Nuclear Antibody Titer 1:40 titer
[2020-10-14] MEDS: 0.9 % Sodium Chloride Flush 3 ML SYRINGE IVFLUSH ×2 (00:06→15:39)
[2020-10-14] MEDS: Acetaminophen 325 MG TABLET 650 MG PO (03:51)
[2020-10-14] MEDS: Levothyroxine Sodium 150 MCG TABLET PO (06:20)
[2020-10-14 07:11] LABS: Anion Gap 11 (12-20); Blood Urea Nitrogen 8 mg/dL (9-16); Calcium 8.7 mg/dL (8.4-10.2); Carbon Dioxide 36 mmol/L (22-29); Chloride 99 mmol/L (96-108); Creatinine Clr Calc Pharmacy 163.5; Estimated Glomerular Filt Rate > 60; Glucose Random 147 mg/dL (60-115); Potassium 4.4 mmol/l (3.3-5.1); Sodium 142 mmol/L (135-145)
[2020-10-14] MEDS: Albuterol/Iprat 2.5/0.5MG 3 ML AMPUL.NEB INHALE ×4 (07:45→19:53)
[2020-10-14 08:14] LABS: Glucose, Whole Blood 141 mg/dL (60-115)
[2020-10-14] MEDS: atenoloL 25 MG TABLET PO ×3 (09:37→21:17)
[2020-10-14] MEDS: Doxycycline Hyclate 100 MG in 0.9 % Sodium Chloride 250 ML 166.67 MG IV (09:38)
[2020-10-14] MEDS: Gabapentin 600 MG TABLET PO ×3 (09:38→21:16)
[2020-10-14] MEDS: Divalproex Sodium ER 250 MG TAB.ER.24H PO (09:38)
[2020-10-14] MEDS: Lithium Carbonate ER 300 MG TABLET.ER PO (09:39)
[2020-10-14] MEDS: Nicotine 14 MG PATCH.TD24 TRANSDERMA (09:39)
[2020-10-14] MEDS: fluPHENAZine HCl 2.5 MG TABLET PO ×2 (09:39→21:17)
[2020-10-14] MEDS: Benztropine Mesylate 1 MG TABLET PO ×2 (09:39→21:18)
[2020-10-14] MEDS: cloZAPine 25 MG TABLET 50 MG PO ×2 (09:40→21:17)
--- NOTE | 2020-10-14 11:15 | MHC.CM.PN ---
Patient is receiving IV Doxycycline for PNA and not yet medically cleared [facility]. CM will continue to follow.
[2020-10-14 12:02] LABS: Glucose, Whole Blood 188 mg/dL (60-115)
[2020-10-14] MEDS: Insulin Lispro 100 UNIT/ML 3 ML VIAL SUBCUT ×3 (12:05→21:18)
[2020-10-14] MEDS: Permethrin 5 % Cream 60 GM TUBE 1 APPL TOPICAL ×2 (12:06→22:13)
--- NOTE | 2020-10-14 12:35 | P.PNIM_ITS ---
Subjective Subjective Date of Service: 10/15/20 Interval History: Seen in f/u for SOB in settting of loculated P. effusion. ROS. No chest pain, some sob Review of Systems Gen: no fever Resp: no sob, no cough CV: no chest, no HERNANDEZ, no leg edema GI: No n/v, no abd pain Neuro: No confusion Physical Exam Vital Signs: Vital Signs: Last Vital Signs Temp 97.4 F 10/14/20 08:00 Pulse 75 10/14/20 11:31 Resp 20 10/14/20 08:00 BP 132/60 10/14/20 08:00 Pulse Ox 90 L 10/14/20 08:00 Body Mass Index 30.4 General: Alert, no acute distress Resp: rhochi, no rales a CVS: S1,S2,RRR, 2+ edema GI: +BS, NT, no distention Skin: No rash Neuro: motor grossly intact Psych: appropriate affect Objective Data Current Medications Generic Name Dose Route Start Last Admin Trade Name Freq PRN Reason Stop Dose Admin Acetaminophen 650 mg 10/10/20 22:21 10/14/20 03:51 Acetaminophen 325 Mg Tablet PO 650 mg Q6H PRN Administration Pain, Mild (Pain Scale 1-3) Albuterol/Ipratropium 3 ml 10/11/20 08:00 10/14/20 11:29 Albuterol/Iprat 2.5/0.5mg 3 Ml Ampul.Neb INHALE 3 ml RQ4H WHILE AWAKE CAROLINE Administration Atenolol 25 mg 10/10/20 22:21 10/14/20 09:37 Atenolol 25 Mg Tablet PO 25 mg TID CAROLINE Administration Protocol Atorvastatin Calcium 40 mg 10/10/20 22:21 10/13/20 21:12 Atorvastatin Calcium 40 Mg Tablet PO 40 mg BEDTIME CAROLINE Administration Benztropine Mesylate 1 mg 10/11/20 09:00 10/14/20 09:39 Benztropine Mesylate 1 Mg Tablet PO 1 mg BID CAROLINE Administration Clozapine 50 mg 10/11/20 11:30 10/14/20 09:40 Clozapine 25 Mg Tablet PO 50 mg DAILY CAROLINE Administration Clozapine 100 mg 10/11/20 21:00 10/13/20 21:11 Clozapine 100 Mg Tablet PO 100 mg BEDTIME CAROLINE Administration Clozapine 50 mg 10/11/20 21:00 10/13/20 21:10 Clozapine 25 Mg Tablet PO 50 mg BEDTIME CAROLINE Administration Divalproex Sodium 250 mg 10/11/20 09:00 10/14/20 09:38 Divalproex Sodium Er 250 Mg Tab.Er.24h PO 250 mg DAILY CAROLINE Administration Enoxaparin Sodium 40 mg 10/10/20 23:00 10/13/20 23:59 Enoxaparin Sodium 40 Mg/0.4 Ml Syringe SUBCUT 40 mg Q24H CAROLINE Administration Fluphenazine HCl 2.5 mg 10/10/20 22:21 10/14/20 09:39 Fluphenazine Hcl 2.5 Mg Tablet PO 2.5 mg BID CAROLINE Administration Gabapentin 600 mg 10/10/20 22:21 10/14/20 09:38 Gabapentin 600 Mg Tablet PO 600 mg TID CAROLINE Administration Doxycycline Hyclate 100 mg/ 250 mls @ 166.67 mls/hr 10/10/20 23:00 10/14/20 11:12 Sodium Chloride IV Infused Q12H CAROLINE Infusion Insulin Glargine 10 unit 10/13/20 21:00 10/13/20 21:27 Insulin Glargine,Hum.Rec.Anlog 100 Unit/Ml 10 Ml Vial SUBCUT 10 unit BEDTIME CAROLINE Administration Insulin Human Lispro 0 unit 10/10/20 22:21 10/14/20 12:05 Insulin Lispro 100 Unit/Ml 3 Ml Vial SUBCUT 2 unit QIDACHS CAROLINE Administration Protocol Levothyroxine Sodium 150 mcg 10/11/20 06:00 10/14/20 06:20 Levothyroxine Sodium 150 Mcg Tablet PO 150 mcg DAILY@0600 CAROLINE Administration [place] Carbonate 300 mg 10/11/20 09:00 10/14/20 09:39 [place] Carbonate Er 300 Mg Tablet.Er PO 300 mg DAILY CAROLINE Administration [place] Carbonate 450 mg 10/10/20 22:21 10/13/20 21:11 [place] Carbonate Er 450 Mg Tablet.Er PO 450 mg BEDTIME CAROLINE Administration Nicotine 14 mg 10/11/20 09:00 10/14/20 09:39 Nicotine 14 Mg Patch.Td24 TRANSDERMA 14 mg DAILY CAROLINE Administration Pharmacy Consult 1 each 10/10/20 14:25 Consult Rx Perform Med Rec MISCELLANE ONCE PRN Consult order Sodium Chloride 3 ml 10/11/20 00:00 12/04/20 09:37 0.9 % Sodium Chloride Flush 3 Ml Syringe IVFLUSH Not Given QSHIFT [facility] Tamsulosin HCl 0.4 mg 10/11/20 17:30 10/13/20 17:24 Tamsulosin Hcl 0.4 Mg Capsule PO 0.4 mg DAILY@1730 [facility] Administration Labs CBC & Chem 7: 10/11/20 06:45 10/14/20 06:01 Microbiology Microbiology Results: Microbiology 10/10/20 15:55 Blood - Venous Blood Culture - Preliminary No growth after 48 hours. 10/10/20 15:39 Blood - Venous Blood Culture - Preliminary No growth after 48 hours. Assessment and Plan (1) Loculated pleural effusion: Problem details: small loculated pockets, not warrent drainage at this time. Possible early lung abscess Status: Acute (2) Pneumonia: Problem details: CAP Status: Acute (3) Acute hyponatremia: Status: Acute Assessment and Plan: 55-year-old man admitted with community-acquired pneumonia, parapneumonic effusion and hyponatremia Community-acquired pneumonia with Parapneumonic effusion No sepsis.Negative COVID. -Rocephin and doxycycline. Change to PO today -wean off O2 COPD exacerbation. Solu-Medrol--> Prednisone today, duo nebs, supplemental oxygen as needed. Robitussin for cough Hyponatremia. Resolved Schizophrenia. Continue home medications. Diabetes mellitus. Restart Lantus at 10 tonight Hypothyroidism. Continue levothyroxine. Hypertension. Continue atenolol. Hyperlipidemia. Continue statin. Generalized swelling in legs likely from IVF, IV Lasix x 1 Smoker. NRT, discussed the importance of cessation. Rash on right hand and back --c/w with scabies, apply Permethrin DVT prophylaxis with Lovenox.
[2020-10-14 16:05] LABS: Glucose, Whole Blood 223 mg/dL (60-115)
[2020-10-14] MEDS: Tamsulosin HCL 0.4 MG CAPSULE PO (17:41)
[2020-10-14 20:45] LABS: Glucose, Whole Blood 287 mg/dL (60-115)
[2020-10-14] MEDS: Atorvastatin Calcium 40 MG TABLET PO (21:16)
[2020-10-14] MEDS: cloZAPine 100 MG TABLET PO (21:17)
[2020-10-14] MEDS: Lithium Carbonate ER 450 MG TABLET.ER PO (21:17)
[2020-10-14] MEDS: Insulin Glargine,Hum.rec.anlog 100 UNIT/ML 10 ML VIAL 10 UNIT SUBCUT (21:18)
--- NOTE | 2020-10-14 21:37 | P.CNID_ITS ---
History of Present Illness Data of Consult Service Date: 10/14/20 Requesting physician: [facility] Primary Care Provider: Unknown Physician HPI Reason for consult: right pleural effusion He presents to hospital with shortness of breath for last three days He has no fever or chills No one else is ill He has right pleural effusion,small There is no pathology present or cultures done Today CXR on right is improved. Review of Systems Constitutional: Constitutional: Denies headache(s) and Denies weakness ENT: Denies dizziness and Denies headache(s) Musculoskeletal: Musculoskeletal: Denies numbness and Denies tingling Neurologic: Reports system reviewed and no additional complaints, except as documented, Denies Abnormal speech present, Denies dizziness, Denies headache(s), Denies numbness, Denies tingling and Denies weakness PMFSH Past Medical History Medical History Asbestos-induced pleural plaque Asthma COPD (chronic obstructive pulmonary disease) Diabetes High cholesterol HTN (hypertension) Loculated pleural effusion Schizophrenia Traumatic brain injury Social History Social History Household Members: Caregiver and Other Household Members Other:: residential Housing: House Smoking Status: Current every day smoker Packs Per Day: 1.5 Use of substances other than those prescribed or required for medical reasons: No Substance Use Type: Marijuana Substance Use Frequency: Occasionally Currently Displaying Signs/Symptoms of Drug Intoxication Withdrawal: No Have you been hit, kicked, punched, or otherwise hurt by someone within the past year? If so, by whom?: No Do you feel safe in your current relationship?: No Current Relationship Is there a partner from a previous relationship who is making you feel unsafe now?: No Are you made to feel afraid or neglected: No Advance Directives: No Advance Directives Information Provided: No Do you have thoughts of harming others: None Do you have a plan to hurt others: No Plan Recently lost weight without trying: No service: No Current occupational status: disabled Meds Allergies Allergy/AdvReac Type Severity Reaction Status Date / Time amoxicillin [AMOXICILLIN] Allergy Intermediate SKIN RASH Verified 10/11/20 17:00 egg [EGGS] Allergy Intermediate HIVES, Verified 10/11/20 17:00 VOMITING Penicillins [PENICILLINS] Allergy Intermediate SKIN RASH Verified 10/11/20 17:00 Sulfa (Sulfonamide Allergy Intermediate SKIN RASH Verified 10/11/20 17:00 Antibiotics) [SULFA (SULFONAMIDE ANTIBIOTICS)] trimethoprim [TRIMETHOPRIM] Allergy Intermediate SKIN RASH Verified 10/11/20 17:00 penicillin V Allergy Unknown Unknown Verified 10/10/20 14:35 haloperidol [From Haldol] Allergy Unknown Verified 10/11/20 16:16 Latex, Natural Rubber Allergy Unknown Verified 10/11/20 16:16 methylprednisolone Allergy Unknown Verified 10/11/20 16:16 [From Solu-Medrol] penicillin Allergy Unknown Unknown Uncoded 10/10/20 14:35 sultamicillin Allergy Unknown Unknown Uncoded 10/10/20 14:35 trimethoprim Allergy Unknown Unknown Uncoded 10/10/20 14:35 Home Medications Medication Instructions Recorded Confirmed Type albuterol sulfate [Ventolin HFA] 1 puff INHALATION Q6H PRN 10/10/20 10/10/20 History atenolol 25 mg PO TID 10/10/20 10/10/20 History atorvastatin 40 mg PO BEDTIME 10/10/20 10/10/20 History benztropine 1 tab PO BID 10/10/20 10/10/20 History clozapine 50 mg PO DAILY 10/10/20 10/10/20 History clozapine 150 mg PO BEDTIME 10/10/20 10/10/20 History divalproex 1 tab PO DAILY 10/10/20 10/10/20 History fluphenazine HCl 1 tab PO BID 10/10/20 10/10/20 History gabapentin 1 tab PO TID 10/10/20 10/10/20 History glipizide 1 tab PO BIDWM 10/10/20 10/10/20 History insulin detemir U-100 [Levemir 30 unit SUBCUT BEDTIME 10/10/20 10/10/20 History FlexTouch U-100 Insuln] insulin detemir U-100 [Levemir 45 unit SUBCUT DAILY 10/10/20 10/10/20 History FlexTouch U-100 Insuln] levothyroxine 1 tab PO DAILY 10/10/20 10/10/20 History lithium carbonate 300 mg PO DAILY 10/10/20 10/10/20 History lithium carbonate 450 mg PO BEDTIME 10/10/20 10/10/20 History metformin 1 tab PO BIDWM 10/10/20 10/10/20 History tamsulosin 1 cap PO DAILY 10/10/20 10/10/20 History Physical Exam Vital Signs: Vital Signs: Last Vital Signs Temp 98.0 F 10/14/20 19:12 Pulse 81 10/14/20 21:17 Resp 19 10/14/20 19:12 BP 147/60 H 10/14/20 21:17 Pulse Ox 92 10/14/20 19:12 Body Mass Index 30.4 Const: General: cooperative Orientation/consciousness: oriented to person, oriented to place and oriented to time HENMT: Head: Yes normal to inspection Mouth: Normal oral and palatal mucosa present Eyes: General: appearance normal, both eyes and all related structures Resp: Effort & Inspection: normal respiratory effort Cardio: Rate: regular rate Rhythm: regular rhythm GI: Inspection: Yes normal to inspection : General: Yes no CVA tenderness Back/Spine/Pelvis: Back: no CVA tenderness Skin: General skin exam: no rashes or lesions noted Neuro: General: oriented to person, oriented to place and oriented to time Speech: No Abnormal speech present Extrem: Other: reddened scaly right hand and buttocks Assessment and Plan (1) Loculated pleural effusion: Problem details: small loculated pockets, not warrent drainage at this time. Possible early lung abscess Status: Acute Continue po antibiotics ,Ceftin for two weeks (2) Asbestos-induced pleural plaque: Status: Acute (3) Rash: Problem details: Possible scabies possible drug reaction Status: Acute Permethrin Results Labs CBC & Chem 7: 10/11/20 06:45 10/14/20 06:01 Labs: BMP 10/14/20 06:01 Sodium 142 Potassium 4.4 Chloride 99 Carbon Dioxide 36 H BUN 8 L D Creatinine 0.63 Calcium 8.7 Microbiology Microbiology Results: Microbiology 10/10/20 15:55 Blood - Venous Blood Culture - Preliminary No growth after 48 hours. 10/10/20 15:39 Blood - Venous Blood Culture - Preliminary No growth after 48 hours.
--- NOTE | 2020-10-14 22:45 | PC.NURSE ---
pt has been restless today. He was able to ambulate in room and to bathroom, ambulated a short distance in hallway and returned to room. He made numerous attempts to get up without assistance. Pt removed his own IV, states he did not like what it was saying to him. Have not reinserted new IV, will check with MD about need for IV.Pt has reported that there are things flying around his room and asked nurse to amee them away with the light. Pt states he often sees things that may not be there. He is sleeping at time of note.
[2020-10-15] VITALS (13 sets, daily range): BP systolic 96–115; BP diastolic 44–65; PULSE 72–80; RESP 18–20; TEMP 36.2–37.2; O2SAT 92–100
[2020-10-15] MEDS: Enoxaparin Sodium 40 MG/0.4 ML SYRINGE SUBCUT ×2 (00:17→22:13)
[2020-10-15] MEDS: Levothyroxine Sodium 150 MCG TABLET PO (07:07)
[2020-10-15 07:28] LABS: Glucose, Whole Blood 135 mg/dL (60-115)
[2020-10-15] MEDS: 0.9 % Sodium Chloride Flush 3 ML SYRINGE IVFLUSH (08:48)
[2020-10-15] MEDS: Nicotine 14 MG PATCH.TD24 TRANSDERMA (08:48)
[2020-10-15] MEDS: cloZAPine 25 MG TABLET 50 MG PO ×2 (08:50→22:13)
[2020-10-15] MEDS: fluPHENAZine HCl 2.5 MG TABLET PO ×2 (08:50→22:14)
[2020-10-15] MEDS: Lithium Carbonate ER 300 MG TABLET.ER PO (08:50)
[2020-10-15] MEDS: predniSONE 20 MG TABLET PO (08:50)
[2020-10-15] MEDS: Gabapentin 600 MG TABLET PO ×3 (08:51→22:14)
[2020-10-15] MEDS: Benztropine Mesylate 1 MG TABLET PO ×2 (08:51→22:14)
[2020-10-15] MEDS: atenoloL 25 MG TABLET PO ×3 (08:51→22:14)
[2020-10-15] MEDS: Divalproex Sodium ER 250 MG TAB.ER.24H PO (08:52)
[2020-10-15] MEDS: Albuterol/Iprat 2.5/0.5MG 3 ML AMPUL.NEB INHALE ×3 (11:31→19:41)
[2020-10-15 11:58] LABS: Glucose, Whole Blood 278 mg/dL (60-115)
--- NOTE | 2020-10-15 12:02 | P.PNIM_ITS ---
Subjective Subjective Date of Service: 10/15/20 Interval History: Seen in f/u for SOB in settting of loculated . This morning was hypoxic and was put on NRB but is now back on nasal cannula and satting well. ROS. No chest pain, some sob Review of Systems Gen: no fever Resp: no sob, no cough CV: no chest, no HERNANDEZ, no leg edema GI: No n/v, no abd pain Neuro: No confusion Physical Exam Vital Signs: Vital Signs: Last Vital Signs Temp 97.6 F 10/15/20 11:48 Pulse 75 10/15/20 11:48 Resp 18 10/15/20 11:48 BP 96/65 10/15/20 11:48 Pulse Ox 96 10/15/20 11:48 Body Mass Index 30.4 General: Alert, no acute distress Resp: rhochi, no rales a CVS: S1,S2,RRR, 1+ edema GI: +BS, NT, no distention Skin: No rash Neuro: motor grossly intact Psych: appropriate affect Objective Data Current Medications Generic Name Dose Route Start Last Admin Trade Name Trent PRN Reason Stop Dose Admin Acetaminophen 650 mg 10/10/20 22:21 10/14/20 03:51 Acetaminophen 325 Mg Tablet PO 650 mg Q6H PRN Administration Pain, Mild (Pain Scale 1-3) Albuterol/Ipratropium 3 ml 10/11/20 08:00 10/15/20 11:31 Albuterol/Iprat 2.5/0.5mg 3 Ml Ampul.Neb INHALE 3 ml RQ4H WHILE AWAKE CAROLINE Administration Atenolol 25 mg 10/10/20 22:21 10/15/20 08:51 Atenolol 25 Mg Tablet PO 25 mg TID CAROLINE Administration Protocol Atorvastatin Calcium 40 mg 10/10/20 22:21 10/14/20 21:16 Atorvastatin Calcium 40 Mg Tablet PO 40 mg BEDTIME CAROLINE Administration Benztropine Mesylate 1 mg 10/11/20 09:00 10/15/20 08:51 Benztropine Mesylate 1 Mg Tablet PO 1 mg BID CAROLINE Administration Cefuroxime Axetil 500 mg 10/14/20 13:00 10/15/20 08:51 Cefuroxime Axetil 500 Mg Tablet PO 500 mg BID CAROLINE Administration Clozapine 50 mg 10/11/20 11:30 10/15/20 08:50 Clozapine 25 Mg Tablet PO 50 mg DAILY CAROLINE Administration Clozapine 100 mg 10/11/20 21:00 10/14/20 21:17 Clozapine 100 Mg Tablet PO 100 mg BEDTIME CAROLINE Administration Clozapine 50 mg 10/11/20 21:00 10/14/20 21:17 Clozapine 25 Mg Tablet PO 50 mg BEDTIME CAROLINE Administration Divalproex Sodium 250 mg 10/11/20 09:00 10/15/20 08:52 Divalproex Sodium Er 250 Mg Tab.Er.24h PO 250 mg DAILY CAROLINE Administration Enoxaparin Sodium 40 mg 10/10/20 23:00 10/15/20 00:17 Enoxaparin Sodium 40 Mg/0.4 Ml Syringe SUBCUT 40 mg Q24H CAROLINE Administration Fluphenazine HCl 2.5 mg 10/10/20 22:21 10/15/20 08:50 Fluphenazine Hcl 2.5 Mg Tablet PO 2.5 mg BID CAROLINE Administration Gabapentin 600 mg 10/10/20 22:21 10/15/20 08:51 Gabapentin 600 Mg Tablet PO 600 mg TID CAROLINE Administration Insulin Glargine 10 unit 10/13/20 21:00 10/14/20 21:18 Insulin Glargine,Hum.Rec.Anlog 100 Unit/Ml 10 Ml Vial SUBCUT 10 unit BEDTIME CAROLINE Administration Insulin Human Lispro 0 unit 10/10/20 22:21 10/15/20 08:42 Insulin Lispro 100 Unit/Ml 3 Ml Vial SUBCUT Not Given QIDACHS [facility] Protocol Levothyroxine Sodium 150 mcg 10/11/20 06:00 10/15/20 07:07 Levothyroxine Sodium 150 Mcg Tablet PO 150 mcg DAILY@0600 CAROLINE Administration [place] Carbonate 300 mg 10/11/20 09:00 10/15/20 08:50 [place] Carbonate Er 300 Mg Tablet.Er PO 300 mg DAILY CAROLINE Administration [place] Carbonate 450 mg 10/10/20 22:21 10/14/20 21:17 [place] Carbonate Er 450 Mg Tablet.Er PO 450 mg BEDTIME CAROLINE Administration Nicotine 14 mg 10/11/20 09:00 10/15/20 08:48 Nicotine 14 Mg Patch.Td24 TRANSDERMA 14 mg DAILY CAROLINE Administration Pharmacy Consult 1 each 10/10/20 14:25 Consult Rx Perform Med Rec MISCELLANE ONCE PRN Consult order Prednisone 20 mg 10/15/20 09:00 10/15/20 08:50 Prednisone 20 Mg Tablet PO 20 mg DAILY CAROLINE Administration Sodium Chloride 3 ml 10/11/20 00:00 10/15/20 08:48 0.9 % Sodium Chloride Flush 3 Ml Syringe IVFLUSH 3 ml QSHIFT CAROLINE Administration Tamsulosin HCl 0.4 mg 10/11/20 17:30 10/14/20 17:41 Tamsulosin Hcl 0.4 Mg Capsule PO 0.4 mg DAILY@1730 CAROLINE Administration Labs CBC & Chem 7: 10/11/20 06:45 10/14/20 06:01 Microbiology Microbiology Results: Microbiology 10/10/20 15:55 Blood - Venous Blood Culture - Preliminary No growth after 48 hours. 10/10/20 15:39 Blood - Venous Blood Culture - Preliminary No growth after 48 hours. Assessment and Plan (1) Loculated pleural effusion: Problem details: small loculated pockets, not warrent drainage at this time. Possible early lung abscess Status: Acute (2) Pneumonia: Problem details: CAP Status: Acute (3) Acute hyponatremia: Status: Acute Assessment and Plan: 55-year-old man admitted with community-acquired pneumonia, parapneumonic effusion and hyponatremia Community-acquired pneumonia with Parapneumonic effusion No sepsis.Negative COVID. -Ceftin PO for 2 weeks, -keep on home level of O2 COPD exacerbation. Prednisone duo nebs, supplemental oxygen as needed. Robitussin for cough Hyponatremia. Resolved Schizophrenia. Continue home medications. Diabetes mellitus. Restart Lantus at 10 tonight Hypothyroidism. Continue levothyroxine. Hypertension. Continue atenolol. Hyperlipidemia. Continue statin. Generalized swelling in legs likely from, swelling is better Smoker. NRT, discussed the importance of cessation. Rash on right hand and back --c/w with scabies, apply Permethrin DVT prophylaxis with Lovenox. PT eval
[2020-10-15] MEDS: Insulin Lispro 100 UNIT/ML 3 ML VIAL SUBCUT ×3 (12:54→22:12)
[2020-10-15 15:53] LABS: Glucose, Whole Blood 270 mg/dL (60-115)
[2020-10-15] MEDS: Tamsulosin HCL 0.4 MG CAPSULE PO (16:50)
--- NOTE | 2020-10-15 18:24 | PC.NURSE ---
Patient has no IV access. Refused to let nurse attempt new IV access. aware.
[2020-10-15 19:57] LABS: Legionella Ag Urine Not Detected (Not Detected)
[2020-10-15 20:54] LABS: Glucose, Whole Blood 305 mg/dL (60-115)
[2020-10-15] MEDS: Insulin Glargine,Hum.rec.anlog 100 UNIT/ML 10 ML VIAL 10 UNIT SUBCUT (22:12)
[2020-10-15] MEDS: Atorvastatin Calcium 40 MG TABLET PO (22:14)
[2020-10-15] MEDS: Lithium Carbonate ER 450 MG TABLET.ER PO (22:14)
[2020-10-15] MEDS: cloZAPine 100 MG TABLET PO (22:14)
[2020-10-16] VITALS (10 sets, daily range): BP systolic 92–118; BP diastolic 37–64; PULSE 67–92; RESP 16–20; TEMP 36–37; O2SAT 90–100
[2020-10-16] MEDS: Levothyroxine Sodium 150 MCG TABLET PO (07:17)
[2020-10-16 07:35] LABS: Glucose, Whole Blood 127 mg/dL (60-115)
[2020-10-16] MEDS: Nicotine 14 MG PATCH.TD24 TRANSDERMA (07:59)
[2020-10-16] MEDS: Divalproex Sodium ER 250 MG TAB.ER.24H PO (08:00)
[2020-10-16] MEDS: Gabapentin 600 MG TABLET PO ×2 (08:00→20:49)
[2020-10-16] MEDS: Lithium Carbonate ER 300 MG TABLET.ER PO (08:00)
[2020-10-16] MEDS: Benztropine Mesylate 1 MG TABLET PO ×2 (08:00→20:50)
[2020-10-16] MEDS: predniSONE 20 MG TABLET PO (08:00)
[2020-10-16] MEDS: atenoloL 25 MG TABLET PO ×2 (08:00→20:50)
[2020-10-16] MEDS: fluPHENAZine HCl 2.5 MG TABLET PO ×2 (08:00→20:49)
[2020-10-16] MEDS: cloZAPine 25 MG TABLET 50 MG PO ×2 (08:01→20:49)
[2020-10-16] MEDS: Albuterol/Iprat 2.5/0.5MG 3 ML AMPUL.NEB INHALE ×2 (11:07→15:16)
[2020-10-16 12:01] LABS: Glucose, Whole Blood 240 mg/dL (60-115)
[2020-10-16] MEDS: Insulin Lispro 100 UNIT/ML 3 ML VIAL SUBCUT ×3 (12:09→20:50)
--- NOTE | 2020-10-16 13:23 | P.PNIM_ITS ---
Subjective Subjective Date of Service: 10/16/20 Interval History: Seen in f/u for SOB in settting of loculated effusion . He says he feels much better today, no sob. He confirms been on oxygen at home but not sure how much ROS. No chest pain, no sob, no cough Review of Systems Gen: no fever Resp: no sob, no cough CV: no chest, no HERNANDEZ, no leg edema GI: No n/v, no abd pain Neuro: No confusion Physical Exam Vital Signs: Vital Signs: Last Vital Signs Temp 97.5 F 10/16/20 07:34 Pulse 75 10/16/20 11:08 Resp 18 10/16/20 07:34 BP 96/42 L 10/16/20 08:00 Pulse Ox 90 L 10/16/20 07:34 Body Mass Index 30.4 General: Alert, no acute distress Resp: rhochi, no rales a CVS: S1,S2,RRR, 1+ edema GI: +BS, NT, no distention Skin: No rash Neuro: motor grossly intact Psych: appropriate affect Objective Data Current Medications Generic Name Dose Route Start Last Admin Trade Name Freq PRN Reason Stop Dose Admin Acetaminophen 650 mg 10/10/20 22:21 10/14/20 03:51 Acetaminophen 325 Mg Tablet PO 650 mg Q6H PRN Administration Pain, Mild (Pain Scale 1-3) Albuterol/Ipratropium 3 ml 10/11/20 08:00 10/16/20 11:07 Albuterol/Iprat 2.5/0.5mg 3 Ml Ampul.Neb INHALE 3 ml RQ4H WHILE AWAKE CAROLINE Administration Atenolol 25 mg 10/10/20 22:21 10/16/20 08:00 Atenolol 25 Mg Tablet PO 25 mg TID CAROLINE Administration Protocol Atorvastatin Calcium 40 mg 10/10/20 22:21 10/15/20 22:14 Atorvastatin Calcium 40 Mg Tablet PO 40 mg BEDTIME CAROLINE Administration Benztropine Mesylate 1 mg 10/11/20 09:00 10/16/20 08:00 Benztropine Mesylate 1 Mg Tablet PO 1 mg BID CAROLINE Administration Cefuroxime Axetil 500 mg 10/14/20 13:00 10/16/20 08:00 Cefuroxime Axetil 500 Mg Tablet PO 500 mg BID CAROLINE Administration Clozapine 50 mg 10/11/20 11:30 10/16/20 08:01 Clozapine 25 Mg Tablet PO 50 mg DAILY CAROLINE Administration Clozapine 100 mg 10/11/20 21:00 10/15/20 22:14 Clozapine 100 Mg Tablet PO 100 mg BEDTIME CAROLINE Administration Clozapine 50 mg 10/11/20 21:00 10/15/20 22:13 Clozapine 25 Mg Tablet PO 50 mg BEDTIME CAROLINE Administration Divalproex Sodium 250 mg 10/11/20 09:00 10/16/20 08:00 Divalproex Sodium Er 250 Mg Tab.Er.24h PO 250 mg DAILY CAROLINE Administration Enoxaparin Sodium 40 mg 10/10/20 23:00 10/15/20 22:13 Enoxaparin Sodium 40 Mg/0.4 Ml Syringe SUBCUT 40 mg Q24H CAROLINE Administration Fluphenazine HCl 2.5 mg 10/10/20 22:21 10/16/20 08:00 Fluphenazine Hcl 2.5 Mg Tablet PO 2.5 mg BID CAROLINE Administration Gabapentin 600 mg 10/10/20 22:21 10/16/20 08:00 Gabapentin 600 Mg Tablet PO 600 mg TID CAROLINE Administration Insulin Glargine 10 unit 10/13/20 21:00 10/15/20 22:12 Insulin Glargine,Hum.Rec.Anlog 100 Unit/Ml 10 Ml Vial SUBCUT 10 unit BEDTIME CAROLINE Administration Insulin Human Lispro 0 unit 10/10/20 22:21 10/16/20 12:09 Insulin Lispro 100 Unit/Ml 3 Ml Vial SUBCUT 4 unit QIDACHS CAROLINE Administration Protocol Levothyroxine Sodium 150 mcg 10/11/20 06:00 10/16/20 07:17 Levothyroxine Sodium 150 Mcg Tablet PO 150 mcg DAILY@0600 CAROLINE Administration [place] Carbonate 300 mg 10/11/20 09:00 10/16/20 08:00 [place] Carbonate Er 300 Mg Tablet.Er PO 300 mg DAILY CAROLINE Administration [place] Carbonate 450 mg 10/10/20 22:21 10/15/20 22:14 [place] Carbonate Er 450 Mg Tablet.Er PO 450 mg BEDTIME CAROLINE Administration Nicotine 14 mg 10/11/20 09:00 10/16/20 07:59 Nicotine 14 Mg Patch.Td24 TRANSDERMA 14 mg DAILY CAROLINE Administration Pharmacy Consult 1 each 10/10/20 14:25 Consult Rx Perform Med Rec MISCELLANE ONCE PRN Consult order Prednisone 20 mg 10/15/20 09:00 10/16/20 08:00 Prednisone 20 Mg Tablet PO 20 mg DAILY CAROLINE Administration Sodium Chloride 3 ml 10/11/20 00:00 10/16/20 07:59 0.9 % Sodium Chloride Flush 3 Ml Syringe IVFLUSH Not Given QSHIFT [facility] Tamsulosin HCl 0.4 mg 10/11/20 17:30 10/15/20 16:50 Tamsulosin Hcl 0.4 Mg Capsule PO 0.4 mg DAILY@1730 CAROLINE Administration Labs CBC & Chem 7: 10/11/20 06:45 10/14/20 06:01 Microbiology Microbiology Results: Microbiology 10/10/20 15:55 Blood - Venous Blood Culture - Final No growth after 5 days. 10/10/20 15:39 Blood - Venous Blood Culture - Final No growth after 5 days. Assessment and Plan (1) Loculated pleural effusion: Problem details: small loculated pockets, not warrent drainage at this time. Possible early lung abscess Status: Acute (2) Pneumonia: Problem details: CAP Status: Acute (3) Acute hyponatremia: Status: Acute Assessment and Plan: 55-year-old man admitted with community-acquired pneumonia, parapneumonic effusion and hyponatremia Community-acquired pneumonia with small Parapneumonic effusion No sepsis. Negative COVID. -He was on Doxy and Ceftriaxone from 10/10 to 10/13, then was switched to PO Ceftin D3, -ID recommend 14 days of antibotiocs todal, so he needs 7 more day of Ceftin ending on 10/23 -keep on home level of O2 -effusion, pleural paques evaluated by Dominic Mayo recommend outpatient w/u for asbestosis. COPD exacerbation. Prednisone for 3 more days, then stop for total of 10 days of steroid. duo nebs, supplemental oxygen as needed. Robitussin for cough Hyponatremia. Resolved Schizophrenia. Continue home medications. Diabetes mellitus. At home, he is on Levemir 45 in the morning and 30 at night, he was getting corresponding lantus and was getting hypoglycemia into 30s. Presently he is on Lantus 10 units at night with fasting blood sugar this morning of 126 therefore we should be very cautious to to discharge with same doses of insulin, perhaps reduce by a 1/4th. Converting Levemir to Lantus, reduce dose by 20% (ie 100 U Levemir-->80 U Lantus) Hypothyroidism. Continue levothyroxine. Hypertension. Continue atenolol. Hyperlipidemia. Continue statin. Generalized swelling in legs likely from, swelling is better Smoker. NRT, discussed the importance of cessation. Rash on right hand and back --c/w with scabies. Applied Permethrin on 10/14/20 and should be repeat in a week (on 10/21/20) or alerternative to give Ivermectin DVT prophylaxis with Lovenox. Check covid today and likely dc back to assisted tomorrow PT eval
--- NOTE | 2020-10-16 15:42 | MHC.CM.PN ---
CM contacted pts [facility] @ [phone] to inform them that the pt would be discharged tomorrow and to speak to a nurse or shipping and receiving supervisor. FELICE was informed there were no nurses or supervisors present on the weekend. CM informed that tomorrow morning, Yumiko would be the sort operations supervisor on site and would be in at 0800.CM informed [facility] staff member that the plan at this time is for the pt to return tomorrow. FELICE will contact shipping and receiving supervisor at 0800 tomorrow to discuss DC
[2020-10-16 16:12] LABS: Glucose, Whole Blood 362 mg/dL (60-115)
[2020-10-16] MEDS: Tamsulosin HCL 0.4 MG CAPSULE PO (18:12)
[2020-10-16 19:55] LABS: Glucose, Whole Blood 325 mg/dL (60-115)
[2020-10-16] MEDS: cloZAPine 100 MG TABLET PO (20:49)
[2020-10-16] MEDS: Lithium Carbonate ER 450 MG TABLET.ER PO (20:49)
[2020-10-16] MEDS: Insulin Glargine,Hum.rec.anlog 100 UNIT/ML 10 ML VIAL 10 UNIT SUBCUT (20:50)
[2020-10-16] MEDS: Atorvastatin Calcium 40 MG TABLET PO (20:50)
[2020-10-16] MEDS: Enoxaparin Sodium 40 MG/0.4 ML SYRINGE SUBCUT (21:00)
[2020-10-17] VITALS (13 sets, daily range): BP systolic 96–124; BP diastolic 49–71; PULSE 68–87; RESP 16–18; TEMP 36.1–37.1; O2SAT 85–97
[2020-10-17] MEDS: Levothyroxine Sodium 150 MCG TABLET PO (06:01)
[2020-10-17] MEDS: Albuterol/Iprat 2.5/0.5MG 3 ML AMPUL.NEB INHALE ×3 (07:11→19:34)
[2020-10-17 07:46] LABS: Glucose, Whole Blood 121 mg/dL (60-115)
[2020-10-17 07:46] LABS: Glucose, Whole Blood 107 mg/dL (60-115)
[2020-10-17] MEDS: fluPHENAZine HCl 2.5 MG TABLET PO ×2 (09:33→21:59)
[2020-10-17] MEDS: 0.9 % Sodium Chloride Flush 3 ML SYRINGE IVFLUSH ×2 (09:33→22:04)
[2020-10-17] MEDS: Lithium Carbonate ER 300 MG TABLET.ER PO (09:34)
[2020-10-17] MEDS: predniSONE 20 MG TABLET PO (09:34)
[2020-10-17] MEDS: Gabapentin 600 MG TABLET PO ×3 (09:34→21:59)
[2020-10-17] MEDS: cloZAPine 25 MG TABLET 50 MG PO ×2 (09:34→22:00)
[2020-10-17] MEDS: Divalproex Sodium ER 250 MG TAB.ER.24H PO (09:34)
[2020-10-17] MEDS: Benztropine Mesylate 1 MG TABLET PO ×2 (09:34→22:00)
[2020-10-17] MEDS: Nicotine 14 MG PATCH.TD24 TRANSDERMA (09:35)
[2020-10-17 11:32] LABS: Glucose, Whole Blood 309 mg/dL (60-115)
--- NOTE | 2020-10-17 12:00 | MHC.CM.PN ---
Per ROUNDS discussion, [facility] may be ready to [facility] to [facility] today, pending Home O2 Eval (Patient did not use O2 at the [facility] DIRECTOR OPERATIONS BROADCAST), and PT eval.CM will continue to follow for dc planning,
[2020-10-17] MEDS: Insulin Lispro 100 UNIT/ML 3 ML VIAL SUBCUT ×3 (12:08→22:04)
--- NOTE | 2020-10-17 13:59 | MHC.CM.PN ---
Patient will require new O2 at [facility]. Per Nurse Social Contact Worker/ Winsome at [facility], [facility] Nurse Kishor Koroma at [phone] will need to speak to to discuss the details of the new O2 and then put a protocol in place and staff training.([facility] is concerned about the O2 and safety because David is a heavy smoker and often non-compliant). Dr. Pachceo is agreeable to call Levy and FELICE will follow for dc planning.
--- NOTE | 2020-10-17 15:21 | P.PNIM_ITS ---
Subjective Subjective Date of Service: 10/17/20 Interval History: patient seen in follow-up for shortness of breath in relation to right loculated effusion and pneumonia, patient offers no acute complaints eager to ambulate and discharge back to [facility], patient admits he smokes 2 pack of cigarettes a day. Review of Systems General no headache ,no dizziness, no fever chills. CVS no chest pain, no palpitation. Respiratory no cough ,no sputum production, no respiratory distress. Gastrointestinal no nausea, no vomiting, no abdominal pain Physical Exam Vital Signs: Vital Signs: Last Vital Signs Temp 98.8 F 10/17/20 12:00 Pulse 78 10/17/20 12:00 Resp 18 10/17/20 12:00 BP 119/62 10/17/20 12:00 Pulse Ox 90 L 10/17/20 12:00 Body Mass Index 30.4 General patient resting comfortably in no acute distress. Neck is supple no JVD. CVS regular rate rhythm, Respiratory lungs finish breath sounds right base, few expiratory rhonchi, no respiratory distress Gastrointestinal abdomen soft, nontender, bowel sounds audible. Extremities no edema. Neuro nonfocal, speech clear. Skin no rash, yellow stained fingers. Objective Data Current Medications Generic Name Dose Route Start Last Admin Trade Name Freq PRN Reason Stop Dose Admin Acetaminophen 650 mg 10/10/20 22:21 10/14/20 03:51 Acetaminophen 325 Mg Tablet PO 650 mg Q6H PRN Administration Pain, Mild (Pain Scale 1-3) Albuterol/Ipratropium 3 ml 10/11/20 08:00 10/17/20 11:24 Albuterol/Iprat 2.5/0.5mg 3 Ml Ampul.Neb INHALE 3 ml RQ4H WHILE AWAKE CAROLINE Administration Atenolol 25 mg 10/17/20 21:00 Atenolol 25 Mg Tablet PO BID CAROLINE Protocol Atorvastatin Calcium 40 mg 10/10/20 22:21 10/16/20 20:50 Atorvastatin Calcium 40 Mg Tablet PO 40 mg BEDTIME CAROLINE Administration Benztropine Mesylate 1 mg 10/11/20 09:00 10/17/20 09:34 Benztropine Mesylate 1 Mg Tablet PO 1 mg BID CAROLINE Administration Cefuroxime Axetil 500 mg 10/14/20 13:00 10/17/20 09:33 Cefuroxime Axetil 500 Mg Tablet PO 500 mg BID CAROLINE Administration Clozapine 50 mg 10/11/20 11:30 10/17/20 09:34 Clozapine 25 Mg Tablet PO 50 mg DAILY CAROLINE Administration Clozapine 100 mg 10/11/20 21:00 10/16/20 20:49 Clozapine 100 Mg Tablet PO 100 mg BEDTIME CAROLINE Administration Clozapine 50 mg 10/11/20 21:00 10/16/20 20:49 Clozapine 25 Mg Tablet PO 50 mg BEDTIME CAROLINE Administration Divalproex Sodium 250 mg 10/11/20 09:00 10/17/20 09:34 Divalproex Sodium Er 250 Mg Tab.Er.24h PO 250 mg DAILY CAROLINE Administration Enoxaparin Sodium 40 mg 10/10/20 23:00 10/16/20 21:00 Enoxaparin Sodium 40 Mg/0.4 Ml Syringe SUBCUT 40 mg Q24H CAROLINE Administration Fluphenazine HCl 2.5 mg 10/10/20 22:21 12 09:33 Fluphenazine Hcl 2.5 Mg Tablet PO 2.5 mg BID CAROLINE Administration Gabapentin 600 mg 10/10/20 22:21 10/17/20 09:34 Gabapentin 600 Mg Tablet PO 600 mg TID CAROLINE Administration Insulin Glargine 10 unit 10/13/20 21:00 10/16/20 20:50 Insulin Glargine,Hum.Rec.Anlog 100 Unit/Ml 10 Ml Vial SUBCUT 10 unit BEDTIME CAROLINE Administration Insulin Human Lispro 0 unit 10/10/20 22:21 10/17/20 12:08 Insulin Lispro 100 Unit/Ml 3 Ml Vial SUBCUT 8 unit QIDACHS CAROLINE Administration Protocol Levothyroxine Sodium 150 mcg 10/11/20 06:00 10/17/20 06:01 Levothyroxine Sodium 150 Mcg Tablet PO 150 mcg DAILY@0600 CAROLINE Administration [place] Carbonate 300 mg 10/11/20 09:00 10/17/20 09:34 [place] Carbonate Er 300 Mg Tablet.Er PO 300 mg DAILY CAROLINE Administration [place] Carbonate 450 mg 10/10/20 22:21 10/16/20 20:49 [place] Carbonate Er 450 Mg Tablet.Er PO 450 mg BEDTIME CAROLINE Administration Nicotine 14 mg 10/11/20 09:00 10/17/20 09:35 Nicotine 14 Mg Patch.Td24 TRANSDERMA 14 mg DAILY CAROLINE Administration Pharmacy Consult 1 each 10/10/20 14:25 Consult Rx Perform Med Rec MISCELLANE ONCE PRN Consult order Prednisone 20 mg 10/15/20 09:00 10/17/20 09:34 Prednisone 20 Mg Tablet PO 20 mg DAILY CAROLINE Administration Sodium Chloride 3 ml 10/11/20 00:00 10/17/20 09:33 0.9 % Sodium Chloride Flush 3 Ml Syringe IVFLUSH 3 ml QSHIFT CAROLINE Administration Tamsulosin HCl 0.4 mg 10/11/20 17:30 10/16/20 18:12 Tamsulosin Hcl 0.4 Mg Capsule PO 0.4 mg DAILY@1730 CAROLINE Administration Labs CBC & Chem 7: 10/11/20 06:45 10/14/20 06:01 Microbiology Microbiology Results: Microbiology 10/10/20 15:55 Blood - Venous Blood Culture - Final No growth after 5 days. 10/10/20 15:39 Blood - Venous Blood Culture - Final No growth after 5 days. Assessment and Plan (1) Rash: Problem details: Possible scabies possible drug reaction Status: Acute (2) Loculated pleural effusion: Problem details: small loculated pockets, not warrent drainage at this time. Possible early lung abscess Status: Acute (3) Asbestos-induced pleural plaque: Status: Acute (4) Pneumonia: Problem details: CAP Status: Acute (5) Hypoxia: Problem details: Likely from V/Q mismatch from the lower respiratory process. Also has known asbestos related lung Status: Acute Assessment and Plan: 55-year-old man admitted with community-acquired pneumonia, parapneumonic effusion and hyponatremia Community-acquired pneumonia with small Right Parapneumonic effusion No sepsis. Negative COVID. -status post Doxy and Ceftriaxone from 10/10 to 10/13, then was switched to PO Ceftin D4, -ID recommend 14 days of antibotiocs, need Ceftin ending on 10/23 -effusion, pleural paques evaluated by Dr. Dominic Mayo he recommend outp atient w/u for asbestosis. patient ambulating with no difficulty. Acute hypoxic respiratory failure likely related to above, and underlying emphysema with history of heavy smoking, will obtain home O2 evaluation, currently patient on 2 L of oxygen, patient is not on home oxygen. COPD exacerbation. Prednisone for 2 more days, then stop for total of 10 days of steroid, continue duonebs, supplemental oxygen as needed. Robitussin for cough Hyponatremia. Resolved Schizophrenia. Continue home medications. Diabetes mellitus. At home, he is on Levemir 45 in the morning and 30 at night, he was getting corresponding lantus and was getting hypoglycemia into 30s. Presently he is on Lantus 10 units at night with fasting blood sugar this morning around 300, will increase dose of Lantus, follow blood sugars and will adjust dose of Levemir prior to discharge. Hypothyroidism. Continue levothyroxine. Hypertension. Continue atenolol, will change dose to atenolol 25 mg b.i.d. from home dose of atenolol 25mg po t.i.d. since noted to have low blood pressures. Hyperlipidemia. Continue statin. Generalized swelling in legs improving Smoker. NRT, reinforced importance of cessation. Rash on right hand and back --c/w with scabies. status post Permethrin on 10/14/20 and should be repeat in a week (on 10/21/20) or alerternative to give Ivermectin DVT prophylaxis with Lovenox.
[2020-10-17 16:31] LABS: Glucose, Whole Blood 400 mg/dL (60-115)
[2020-10-17] MEDS: Tamsulosin HCL 0.4 MG CAPSULE PO (16:49)
--- NOTE | 2020-10-17 19:08 | PC.NURSE ---
1630- PT POC 400. Dr. Mancuso made aware. Stated to give scheduled SSI and she is going to increase lantus for tonight. 10 units SSI given. Pt ate all of dinner. Will continue to monitor.
[2020-10-17 21:00] LABS: Glucose, Whole Blood 326 mg/dL (60-115)
[2020-10-17] MEDS: atenoloL 25 MG TABLET PO (22:01)
[2020-10-17] MEDS: Lithium Carbonate ER 450 MG TABLET.ER PO (22:02)
[2020-10-17] MEDS: Atorvastatin Calcium 40 MG TABLET PO (22:02)
[2020-10-17] MEDS: cloZAPine 100 MG TABLET PO (22:02)
[2020-10-17] MEDS: Enoxaparin Sodium 40 MG/0.4 ML SYRINGE SUBCUT (22:02)
[2020-10-17] MEDS: Insulin Glargine,Hum.rec.anlog 100 UNIT/ML 10 ML VIAL 15 UNIT SUBCUT (22:03)
[2020-10-18] VITALS (9 sets, daily range): BP systolic 97–115; BP diastolic 50–68; PULSE 70–86; RESP 18–19; TEMP 36.1–36.7; O2SAT 90–98
[2020-10-18] MEDS: Levothyroxine Sodium 150 MCG TABLET PO (06:17)
[2020-10-18] MEDS: Divalproex Sodium ER 250 MG TAB.ER.24H PO (08:52)
[2020-10-18] MEDS: Benztropine Mesylate 1 MG TABLET PO ×2 (08:52→19:42)
[2020-10-18] MEDS: predniSONE 20 MG TABLET PO (08:52)
[2020-10-18] MEDS: atenoloL 25 MG TABLET PO (08:52)
[2020-10-18] MEDS: Gabapentin 600 MG TABLET PO ×2 (08:52→19:42)
[2020-10-18] MEDS: Lithium Carbonate ER 300 MG TABLET.ER PO (08:54)
[2020-10-18] MEDS: cloZAPine 25 MG TABLET 50 MG PO ×2 (08:54→19:43)
[2020-10-18] MEDS: Nicotine 14 MG PATCH.TD24 TRANSDERMA (08:54)
[2020-10-18 08:57] LABS: Glucose, Whole Blood 130 mg/dL (60-115)
[2020-10-18] MEDS: fluPHENAZine HCl 2.5 MG TABLET PO ×2 (09:39→19:41)
[2020-10-18] MEDS: Albuterol/Iprat 2.5/0.5MG 3 ML AMPUL.NEB INHALE ×3 (11:09→20:28)
[2020-10-18 11:33] LABS: Glucose, Whole Blood 288 mg/dL (60-115)
--- NOTE | 2020-10-18 11:44 | MHC.CLN ---
F/U PT IS EATING 75-100% DIET RX: 2000DM-APPROPRIATE DIET WILL PROMOTE SLOW WT LOSS MONITOR WEIGHT FOLLOWING
--- NOTE | 2020-10-18 11:52 | MHC.CM.PN ---
DC planning is ongoing. FELICE spoke with Nursing Customer Relations Representative/Winsome at [phone]. Our MD must speak with [facility] Nurse ([facility]y @ [phone]) to discuss new O2 (3 L Continuous)and then put protocols in place and complete any staff education (there are safety concerns r/t Patient returning on new O2 because Patient is a heavy smoker and apparently can be non-compliant). MD has left 2 messages trying to reach Levy and awaits a return call from him. Winsome said she would contact her Boss to see if they can do anything to assist in our MD and [facility] Nurse to connect. CM will follow.
[2020-10-18] MEDS: Insulin Lispro 100 UNIT/ML 3 ML VIAL SUBCUT ×3 (11:54→22:50)
--- NOTE | 2020-10-18 13:22 | MHC.CM.PN ---
CM spoke with [facility] Nursing Set Up Person/Winsome. [facility] Nurse/Levy is doing an Inservices today at 4 PM, to educated staff on Patient returning on new O2 and safety concerns. FELICE will plan to speak with Winsome first thing in the morning to coordinate the final dc details. is aware.
--- NOTE | 2020-10-18 13:59 | P.PNIM_ITS ---
Subjective Subjective Date of Service: 10/18/20 Interval History: Patient seen in follow-up of pneumonia with loculated infusion and hypoxic respiratory failure, patient denies any acute symptoms of chest pain or shortness of breath, no acute issues overnight has been ambulating in room with no lightheadedness or dizziness. Review of Systems General no headache ,no dizziness, no fever chills. CVS no chest pain, no palpitation. Respiratory no cough ,no sputum production, no respiratory distress. Gastrointestinal no nausea, no vomiting, no abdominal pain Physical Exam Vital Signs: Vital Signs: Last Vital Signs Temp 97.5 F 10/18/20 12:00 Pulse 70 10/18/20 12:00 Resp 19 10/18/20 12:00 BP 115/68 10/18/20 12:00 Pulse Ox 98 10/18/20 12:00 Body Mass Index 30.4 General sitting on chair,no acute distress. Neck no JVD. CVS regular rate rhythm, Respiratory lungs clear to auscultation, no respiratory distress Gastrointestinal abdomen soft, nontender, bowel sounds audible. Extremities no edema. Neuro nonfocal, speech clear. Skin no rash, yellow stained fingers. Objective Data Current Medications Generic Name Dose Route Start Last Admin Trade Name Freq PRN Reason Stop Dose Admin Acetaminophen 650 mg 10/10/20 22:21 10/14/20 03:51 Acetaminophen 325 Mg Tablet PO 650 mg Q6H PRN Administration Pain, Mild (Pain Scale 1-3) Albuterol/Ipratropium 3 ml 10/11/20 08:00 10/18/20 11:09 Albuterol/Iprat 2.5/0.5mg 3 Ml Ampul.Neb INHALE 3 ml RQ4H WHILE AWAKE CAROLINE Administration Atenolol 25 mg 10/19/20 09:00 Atenolol 25 Mg Tablet PO DAILY CAROLINE Protocol Atorvastatin Calcium 40 mg 10/10/20 22:21 10/17/20 22:02 Atorvastatin Calcium 40 Mg Tablet PO 40 mg BEDTIME CAROLINE Administration Benztropine Mesylate 1 mg 10/11/20 09:00 10/18/20 08:52 Benztropine Mesylate 1 Mg Tablet PO 1 mg BID CAROLINE Administration Cefuroxime Axetil 500 mg 10/14/20 13:00 10/18/20 08:52 Cefuroxime Axetil 500 Mg Tablet PO 500 mg BID CAROLINE Administration Clozapine 50 mg 10/11/20 11:30 10/18/20 08:54 Clozapine 25 Mg Tablet PO 50 mg DAILY CAROLINE Administration Clozapine 100 mg 10/11/20 21:00 10/17/20 22:02 Clozapine 100 Mg Tablet PO 100 mg BEDTIME CAROLINE Administration Clozapine 50 mg 10/11/20 21:00 10/17/20 22:00 Clozapine 25 Mg Tablet PO 50 mg BEDTIME CAROLINE Administration Divalproex Sodium 250 mg 10/11/20 09:00 10/18/20 08:52 Divalproex Sodium Er 250 Mg Tab.Er.24h PO 250 mg DAILY CAROLINE Administration Enoxaparin Sodium 40 mg 10/10/20 23:00 10/17/20 22:02 Enoxaparin Sodium 40 Mg/0.4 Ml Syringe SUBCUT 40 mg Q24H CAROLINE Administration Fluphenazine HCl 2.5 mg 10/10/20 22:21 10/18/20 09:39 Fluphenazine Hcl 2.5 Mg Tablet PO 2.5 mg BID CAROLINE Administration Gabapentin 600 mg 10/10/20 22:21 10/18/20 08:52 Gabapentin 600 Mg Tablet PO 600 mg TID CAROLINE Administration Insulin Glargine 15 unit 10/17/20 21:00 10/17/20 22:03 Insulin Glargine,Hum.Rec.Anlog 100 Unit/Ml 10 Ml Vial SUBCUT 15 unit BEDTIME CAROLINE Administration Insulin Human Lispro 0 unit 10/10/20 22:21 10/18/20 11:54 Insulin Lispro 100 Unit/Ml 3 Ml Vial SUBCUT 6 unit QIDACHS CAROLINE Administration Protocol Levothyroxine Sodium 150 mcg 10/11/20 06:00 10/18/20 06:17 Levothyroxine Sodium 150 Mcg Tablet PO 150 mcg DAILY@0600 CAROLINE Administration [place] Carbonate 300 mg 10/11/20 09:00 10/18/20 08:54 [place] Carbonate Er 300 Mg Tablet.Er PO 300 mg DAILY CAROLINE Administration [employer] [place] Carbonate 450 mg 10/10/20 22:21 10/17/20 22:02 [place] Carbonate Er 450 Mg Tablet.Er PO 450 mg BEDTIME CAROLINE Administration Nicotine 14 mg 10/11/20 09:00 12 08:54 Nicotine 14 Mg Patch.Td24 TRANSDERMA 14 mg DAILY CAROLINE Administration Pharmacy Consult 1 each 10/10/20 14:25 Consult Rx Perform Med Rec MISCELLANE ONCE PRN Consult order Prednisone 20 mg 10/15/20 09:00 10/18/20 08:52 Prednisone 20 Mg Tablet PO 20 mg DAILY [facility] Administration Sodium Chloride 3 ml 10/11/20 00:00 10/18/20 09:26 0.9 % Sodium Chloride Flush 3 Ml Syringe IVFLUSH Not Given QSHIFT [facility] Tamsulosin HCl 0.4 mg 10/11/20 17:30 10/17/20 16:49 Tamsulosin Hcl 0.4 Mg Capsule PO 0.4 mg DAILY@1730 CAROLINE Administration Labs CBC & Chem 7: 10/11/20 06:45 10/14/20 06:01 Microbiology Microbiology Results: Microbiology 10/10/20 15:55 Blood - Venous Blood Culture - Final No growth after 5 days. 10/10/20 15:39 Blood - Venous Blood Culture - Final No growth after 5 days. Assessment and Plan (1) Rash: Problem details: Possible scabies possible drug reaction Status: Acute (2) Loculated pleural effusion: Problem details: small loculated pockets, not warrent drainage at this time. Possible early lung abscess Status: Acute (3) Asbestos-induced pleural plaque: Status: Acute (4) Pneumonia: Problem details: CAP Status: Acute (5) Hypoxia: Problem details: Likely from V/Q mismatch from the lower respiratory process. Also has known asbestos related lung Status: Acute (6) Elevated lactic acid level: Status: Acute (7) Acute hyponatremia: Status: Acute Assessment and Plan: 55-year-old man admitted with community-acquired pneumonia, parapneumonic effusion and hyponatremia Community-acquired pneumonia with small Right Parapneumonic effusion No sepsis. Negative COVID. -status post Doxy and Ceftriaxone from 10/10 to 10/13, now on PO Ceftin D 5, -ID recommend 14 days of antibotiocs, need Ceftin ending on 10/23 - loculated effusion, pleural paques evaluated by Dr. Dominic Mayo he recommend outpatient w/u for asbestosis. Acute hypoxic respiratory failure likely related to above, and underlying emphysema with history of heavy smoking, home O2 evaluation revealed that patie nt will require 3 L of oxygen at rest and with ambulation, called nurse Lockett from [facility] and left message. COPD exacerbation. Prednisone for 1 more day, then stop for total of 10 days of steroid, continue duonebs, supplemental oxygen, Robitussin for cough. Hyponatremia. Resolved Schizophrenia. Continue home medications. Diabetes mellitus. At home, he is on Levemir 45 in the morning and 30 at night, he was getting corresponding lantus and was getting hypoglycemia into 30s. Presently he is on Lantus 15 units at night with fasting blood sugar this morning around 130, follow blood sugars and will adjust dose of Levemir prior to discharge. Will adjust dose of pre meal insulin. Hypothyroidism. Continue levothyroxine. Hypertension. Continue atenolol, will change dose to atenolol 25 mg daily from home dose of atenolol 25mg po t.i.d. since noted to have Persistent low blood p ressures. Hyperlipidemia. Continue statin. Generalized swelling in legs improving Smoker. NRT, reinforced importance of cessation. Rash on right hand and back --c/w with scabies. status post Permethrin on 10/14/20 and should be repeat in a week (on 10/21/20) or alerternative to give Ivermectin DVT prophylaxis with Lovenox.
[2020-10-18 16:17] LABS: Glucose, Whole Blood 299 mg/dL (60-115)
[2020-10-18] MEDS: Lithium Carbonate ER 450 MG TABLET.ER PO (19:42)
[2020-10-18] MEDS: cloZAPine 100 MG TABLET PO (19:42)
[2020-10-18] MEDS: Atorvastatin Calcium 40 MG TABLET PO (19:42)
[2020-10-18] MEDS: Tamsulosin HCL 0.4 MG CAPSULE PO (19:42)
[2020-10-18 20:48] LABS: Glucose, Whole Blood 348 mg/dL (60-115)
[2020-10-18] MEDS: Enoxaparin Sodium 40 MG/0.4 ML SYRINGE SUBCUT (22:51)
[2020-10-18] MEDS: Insulin Glargine,Hum.rec.anlog 100 UNIT/ML 10 ML VIAL 15 UNIT SUBCUT (22:51)
[2020-10-19] VITALS (11 sets, daily range): BP systolic 93–135; BP diastolic 42–68; PULSE 69–86; RESP 17–19; TEMP 35.7–36.7; O2SAT 91–97
[2020-10-19] MEDS: Levothyroxine Sodium 150 MCG TABLET PO (04:41)
--- NOTE | 2020-10-19 06:36 | PC.NURSE ---
Pt sleeping in bed. A&o, able to make needs known. Pt swallowed pills ok. o2 sat 91% and higher on 2L nc
[2020-10-19] MEDS: Albuterol/Iprat 2.5/0.5MG 3 ML AMPUL.NEB INHALE ×4 (07:36→19:34)
[2020-10-19 08:20] LABS: Glucose, Whole Blood 157 mg/dL (60-115)
[2020-10-19] MEDS: Insulin Lispro 100 UNIT/ML 3 ML VIAL SUBCUT ×4 (09:06→20:36)
[2020-10-19] MEDS: Nicotine 14 MG PATCH.TD24 TRANSDERMA (09:07)
[2020-10-19] MEDS: cloZAPine 25 MG TABLET 50 MG PO ×2 (09:08→20:35)
[2020-10-19] MEDS: Lithium Carbonate ER 300 MG TABLET.ER PO (09:08)
[2020-10-19] MEDS: predniSONE 20 MG TABLET PO (09:08)
[2020-10-19] MEDS: Gabapentin 600 MG TABLET PO ×3 (09:08→20:35)
[2020-10-19] MEDS: Benztropine Mesylate 1 MG TABLET PO ×2 (09:08→20:36)
[2020-10-19 09:09] LABS: Neutrophils Absolute Auto 9.8 X10*3/uL (2.0-8.3); WBCANC 14.1 X10*3/uL
[2020-10-19] MEDS: Divalproex Sodium ER 250 MG TAB.ER.24H PO (09:09)
[2020-10-19] MEDS: atenoloL 25 MG TABLET PO (09:09)
[2020-10-19] MEDS: fluPHENAZine HCl 2.5 MG TABLET PO ×2 (09:09→20:35)
--- NOTE | 2020-10-19 11:21 | P.PNIM_ITS ---
Subjective Subjective Date of Service: 10/19/20 Interval History: Seen in follow-up for pneumonia with loculated infusion and hypoxic respiratory failure, patient denies any acute symptoms of chest pain or shortness of breath, no acute issues overnight has been ambulating in room with no lightheadedness or dizziness and overall feels good and hope to leave hospital soon Review of Systems General no headache ,no dizziness, no fever chills. CVS no chest pain, no palpitation. Respiratory no cough ,no sputum production, no respiratory distress. Gastrointestinal no nausea, no vomiting, no abdominal pain Physical Exam Vital Signs: Vital Signs: Last Vital Signs Temp 97.8 F 10/19/20 08:15 Pulse 83 10/19/20 09:09 Resp 17 10/19/20 08:15 BP 135/50 L 10/19/20 09:09 Pulse Ox 96 10/19/20 08:15 Body Mass Index 30.4 General sitting on chair,no acute distress. Neck no JVD. CVS regular rate rhythm, Respiratory lungs clear to auscultation, no respiratory distress Gastrointestinal abdomen soft, nontender, bowel sounds audible. Extremities no edema. Neuro nonfocal, speech clear. Skin no rash, yellow stained fingers./very thick nails Objective Data Current Medications Generic Name Dose Route Start Last Admin Trade Name Freq PRN Reason Stop Dose Admin Acetaminophen 650 mg 10/10/20 22:21 10/14/20 03:51 Acetaminophen 325 Mg Tablet PO 650 mg Q6H PRN Administration Pain, Mild (Pain Scale 1-3) Albuterol/Ipratropium 3 ml 10/11/20 08:00 10/19/20 07:36 Albuterol/Iprat 2.5/0.5mg 3 Ml Ampul.Neb INHALE 3 ml RQ4H WHILE AWAKE CAROLINE Administration Atenolol 25 mg 10/19/20 09:00 10/19/20 09:09 Atenolol 25 Mg Tablet PO 25 mg DAILY CAROLINE Administration Protocol Atorvastatin Calcium 40 mg 10/10/20 22:21 10/18/20 19:42 Atorvastatin Calcium 40 Mg Tablet PO 40 mg BEDTIME CAROLINE Administration Benztropine Mesylate 1 mg 10/11/20 09:00 10/19/20 09:08 Benztropine Mesylate 1 Mg Tablet PO 1 mg BID CAROLINE Administration Cefuroxime Axetil 500 mg 10/14/20 13:00 10/19/20 09:09 Cefuroxime Axetil 500 Mg Tablet PO 500 mg BID CAROLINE Administration Clozapine 50 mg 10/11/20 11:30 10/19/20 09:08 Clozapine 25 Mg Tablet PO 50 mg DAILY CAROLINE Administration Clozapine 100 mg 10/11/20 21:00 10/18/20 19:42 Clozapine 100 Mg Tablet PO 100 mg BEDTIME CAROLINE Administration Clozapine 50 mg 10/11/20 21:00 10/18/20 19:43 Clozapine 25 Mg Tablet PO 50 mg BEDTIME CAROLINE Administration Divalproex Sodium 250 mg 10/11/20 09:00 10/19/20 09:09 Divalproex Sodium Er 250 Mg Tab.Er.24h PO 250 mg DAILY CAROLINE Administration Enoxaparin Sodium 40 mg 10/10/20 23:00 10/18/20 22:51 Enoxaparin Sodium 40 Mg/0.4 Ml Syringe SUBCUT 40 mg Q24H CAROLINE Administration Fluphenazine HCl 2.5 mg 10/10/20 22:21 10/19/20 09:09 Fluphenazine Hcl 2.5 Mg Tablet PO 2.5 mg BID CAROLINE Administration Gabapentin 600 mg 10/10/20 22:21 10/19/20 09:08 Gabapentin 600 Mg Tablet PO 600 mg TID CAROLINE Administration Insulin Glargine 15 unit 10/17/20 21:00 10/18/20 22:51 Insulin Glargine,Hum.Rec.Anlog 100 Unit/Ml 10 Ml Vial SUBCUT 15 unit BEDTIME CAROLINE Administration Insulin Human Lispro 0 unit 10/10/20 22:21 10/19/20 09:06 Insulin Lispro 100 Unit/Ml 3 Ml Vial SUBCUT 2 unit QIDACHS CAROLINE Administration Protocol Levothyroxine Sodium 150 mcg 10/11/20 06:00 10/19/20 04:41 Levothyroxine Sodium 150 Mcg Tablet PO 150 mcg DAILY@0600 CAROLINE Administration [place] Carbonate 300 mg 10/11/20 09:00 10/19/20 09:08 [place] Carbonate Er 300 Mg Tablet.Er PO 300 mg DAILY CAROLINE Administration [place] Carbonate 450 mg 10/10/20 22:21 10/18/20 19:42 [place] Carbonate Er 450 Mg Tablet.Er PO 450 mg BEDTIME CAROLINE Administration Nicotine 14 mg 10/11/20 09:00 10/19/20 09:07 Nicotine 14 Mg Patch.Td24 TRANSDERMA 14 mg DAILY [facility] Administration Pharmacy Consult 1 each 10/10/20 14:25 Consult Rx Perform Med Rec MISCELLANE ONCE PRN Consult order Prednisone 20 mg 10/15/20 09:00 10/19/20 09:08 Prednisone 20 Mg Tablet PO 20 mg DAILY CAROILNE Administration Sodium Chloride 3 ml 10/11/20 00:00 10/19/20 09:06 0.9 % Sodium Chloride Flush 3 Ml Syringe IVFLUSH Not Given QSHIFT [facility] Tamsulosin HCl 0.4 mg 10/11/20 17:30 10/18/20 19:42 Tamsulosin Hcl 0.4 Mg Capsule PO 0.4 mg DAILY@1730 [facility] Administration Labs CBC & Chem 7: 10/11/20 06:45 10/14/20 06:01 Microbiology Microbiology Results: Microbiology 10/10/20 15:55 Blood - Venous Blood Culture - Final No growth after 5 days. 10/10/20 15:39 Blood - Venous Blood Culture - Final No growth after 5 days. Assessment and Plan (1) Rash: Problem details: Possible scabies possible drug reaction Status: Acute (2) Loculated pleural effusion: Problem details: small loculated pockets, not warrent drainage at this time. Possible early lung abscess Status: Acute (3) Asbestos-induced pleural plaque: Status: Acute (4) Pneumonia: Problem details: CAP Status: Acute (5) Hypoxia: Problem details: Likely from V/Q mismatch from the lower respiratory process. Also has known asbestos related lung Status: Acute (6) Elevated lactic acid level: Status: Acute (7) Acute hyponatremia: Status: Acute Assessment and Plan: 55-year-old man admitted with community-acquired pneumonia, parapneumonic effusion and hyponatremia Community-acquired pneumonia with small Right Parapneumonic effusion No sepsis. Negative COVID. -status post Doxy and Ceftriaxone from 10/10 to 10/13, now on PO Ceftin D 5, -ID recommend 14 days of antibotiocs, need Ceftin ending on 10/23 - loculated effusion, pleural paques evaluated by Dr. Dominic Mayo he recommend outpatient w/u for asbestosis. Acute hypoxic respiratory failure likely related to above, and underlying emphysema with history of heavy smoking, home O2 evaluation revealed that pat ient will require 3 L of oxygen at rest and with ambulation. CM working with senior care staff to accomodate home O2 with his history of smoking COPD exacerbation. Last day of Prednisone 10 days total. continue duonebs, supplemental oxygen, Robitussin for cough. Hyponatremia. Resolved Schizophrenia. Continue home medications. Diabetes mellitus. At home, he is on Levemir 45 in the morning and 30 at night, he was getting corresponding lantus and was getting hypoglycemia into 30s. Presently he is on Lantus 15 units at night with fasting blood sugar this morning around 130, follow blood sugars and will adjust dose of Levemir prior to discharge. Will adjust dose of pre meal insulin. Hypothyroidism. Continue levothyroxine. Hypertension. Atenolol changed to 25 mg daily from home dose of atenolol 25mg po t.i.d d/t persistent boderline hypotension.. BP currently withing normal. Hyperlipidemia. Continue statin. Generalized swelling in legs improving Smoker. NRT, reinforced importance of cessation. Rash on right hand and back --c/w with scabies. status post Permethrin on 12/15/19 and should be repeat in a week (on 10/21/20) or alerternative to give Ivermectin Possible d/c today if arrrangement done to return to senior care. DVT prophylaxis with Lovenox.
[2020-10-19 11:22] LABS: Glucose, Whole Blood 206 mg/dL (60-115)
--- NOTE | 2020-10-19 11:42 | MHC.CM.PN ---
Patient will be medically cleared for dc today to return to his [facility] at 6 PM. Per Winsome, Nursing Appliance Installer at the long-term, another inservice r/t safety and David returning on new O2 is being held today at 4 PM. Winsome has indicated that there will be staff available to transport Patient back to the Senior [facility] at 6 PM., RN, RT (Jim) have been notified of the dc plan. Per Winsome, Sin will supplying Patient's new O2 at the Senior Care.Second IMM addressed.
--- NOTE | 2020-10-19 12:29 | MHC.CM.PN ---
FELICE spoke with [facility] Nurse/Levy, who requested to speak directly with RT/Jim; FELICE provided Levy's contact information to Jim.
--- NOTE | 2020-10-19 14:27 | MHC.CM.PN ---
CM was informed that Patient is active at the Shelter with [facility]; CM has put in a referral to [facility] and has made them aware of today's dc and that Patient is returning home with new O2.
--- NOTE | 2020-10-19 15:10 | MHC.CM.PN ---
FELICE was just notified from [facility] Nurse/Levy that he has been working with [facility] RT/Jim on securing home O2 for Patient through [facility]. As of this time, O2 is Not yet arranged. FELICE has reached out to Jim and await his response.
--- NOTE | 2020-10-19 15:37 | MHC.CM.PN ---
Patient's dc is on hold until tomorrow r/t getting the new Home O2 set up and [facility] staff inserviced. MD,RN, RT and Patient made aware of change. CM will f/u in the AM.
[2020-10-19 16:06] LABS: Glucose, Whole Blood 263 mg/dL (60-115)
[2020-10-19] MEDS: Tamsulosin HCL 0.4 MG CAPSULE PO (17:14)
[2020-10-19 19:53] LABS: Glucose, Whole Blood 291 mg/dL (60-115)
[2020-10-19] MEDS: cloZAPine 100 MG TABLET PO (20:35)
[2020-10-19] MEDS: Atorvastatin Calcium 40 MG TABLET PO (20:35)
[2020-10-19] MEDS: Insulin Glargine,Hum.rec.anlog 100 UNIT/ML 10 ML VIAL 15 UNIT SUBCUT (20:36)
[2020-10-19] MEDS: Lithium Carbonate ER 450 MG TABLET.ER PO (20:36)
[2020-10-20] MEDS: 0.9 % Sodium Chloride Flush 3 ML SYRINGE IVFLUSH (00:07)
[2020-10-20 04:00] VITALS: BP 105/54; PULSE 84; RESP 18; TEMP 36.6; O2SAT 100
[2020-10-20] MEDS: Levothyroxine Sodium 150 MCG TABLET PO (05:53)
[2020-10-20] MEDS: Albuterol/Iprat 2.5/0.5MG 3 ML AMPUL.NEB INHALE ×2 (07:34→11:44)
[2020-10-20 07:37] LABS: Glucose, Whole Blood 240 mg/dL (60-115)
[2020-10-20 07:58] VITALS: BP 120/68; PULSE 74; RESP 18; TEMP 36.5; O2SAT 92
[2020-10-20] MEDS: Insulin Lispro 100 UNIT/ML 3 ML VIAL SUBCUT ×2 (08:03→12:23)
[2020-10-20 08:04] VITALS: BP 120/68; PULSE 74
[2020-10-20] MEDS: atenoloL 25 MG TABLET PO (08:04)
[2020-10-20] MEDS: Lithium Carbonate ER 300 MG TABLET.ER PO (08:04)
[2020-10-20] MEDS: fluPHENAZine HCl 2.5 MG TABLET PO (08:04)
[2020-10-20] MEDS: Divalproex Sodium ER 250 MG TAB.ER.24H PO (08:05)
[2020-10-20] MEDS: Gabapentin 600 MG TABLET PO (08:05)
[2020-10-20] MEDS: cloZAPine 25 MG TABLET 50 MG PO (08:05)
[2020-10-20] MEDS: Benztropine Mesylate 1 MG TABLET PO (08:05)
[2020-10-20] MEDS: Nicotine 14 MG PATCH.TD24 TRANSDERMA (08:05)
[2020-10-20] MEDS: metFORMIN HCl 1,000 MG TABLET 1000 MG PO (09:37)
--- NOTE | 2020-10-20 11:18 | MHC.CM.PN ---
Patient will return to his [facility] today at 12:15, via [facility] transport (Sylvia), who has confirmed that O2 has been delivered and that Levy ( Nurse) has conducted staff educational inservices on Patient's new O2. Ellie ANDERSON has been notified of today's dc. IMM addressed yesterday.
[2020-10-20 11:32] LABS: Glucose, Whole Blood 201 mg/dL (60-115)
[2020-10-20 11:45] VITALS: PULSE 66; O2SAT 96
--- NOTE | 2020-10-20 11:56 | W.MHC.F2F ---
Service Date Service Date: 10/20/20 Encounter Date of encounter: 10/20/20 Reasons for Services Reason for [facility]: medication management Overseeing Care: Ginger Valero Homebound: Leaving the home is medically contraindicated at this time without the asist of a device and/or another person due th the listed conditions above and below. Homebound supporting statement: Patient is homebound due to posthospitalization weakness, and advanced schizophrenia Certification: Based on the above findings, I certify that this patient is confined to the home and needs intermittent [facility] care, physical therapy and/or speech therapy, or continues to need occupational therapy. The patient is under my care, and I have initiated the establishment of the plan of care. The patient will be followed by a physician who will periodically review the plan of care.
--- NOTE | 2020-10-20 12:00 | P.DS_ITS ---
DS: Providers Provider Date of admission: 10/10/20 20:18 Discharge date/date of service 10/20/20 Primary care physician: Unknown Physician Consults: 10/10/20 21:52 Consult to Infectious Diseases Routine Consulting Provider: Infectious Disease Reason for consultation: COPD exacerbation Has provider been notified: No Consult to Pulmonology Routine Consulting Provider: [facility] Reason for consultation: pleural effusion Has provider been notified: No 10/10/20 22:21 Consult to Nephrology Routine Consulting Provider: Denilson Rice Reason for consultation: HYPONATREMIA Has provider been notified: No DS: Diagnosis Discharge Diagnosis (1) Loculated pleural effusion: Status: Acute Problem details: small loculated pockets, not warrent drainage at this time. Possible early lung abscess (2) Pneumonia: Status: Acute Problem details: CAP (3) Acute hyponatremia: Status: Acute DS: Summary Hospital Course Hospital Course: Date of admission: 10/10/20 Admission HPI by Gisel Mayo NP Chief Complaint: SHORTNESS OF BREATH 55-year-old man presenting from a detention with increased shortness of breath. He reported that this has been ongoing for the last several days. He denies any sick contacts, fever, chills. He did report some nausea vomiting and several episodes of diarrhea. In the ER, chest CT showed loculated right pleural effusion with question of previous asbestos exposure. He also had a right lower lobe infiltrate with question of pneumonia versus empyema. He did not have any fever, he had a mildly elevated white blood cell count 11.3. His lactic acid was elevated at 4.2 with repeat of 3.1. His BNP was mildly elevated at 162 however he did not appear to be in heart failure. Coronavirus PCR negative. In the ER he was given 30 mL/kg IV fluid bolus, Solu-Medrol, ceftria xone, azithromycin. He will be admitted for further management and treatment of community-acquired pneumonia as well as hyponatremia. Hospital course: 55-year-old man admitted with community-acquired pneumonia with parapneumonic effusion and hyponatremia Community-acquired pneumonia with small Parapneumonic effusion. There was No sepsis and covid was negative . -He was on Doxy and Ceftriaxone from 10/10 to 10/13, then was switched to PO Ceftin D3, -ID recommend 14 days of antibotiocs todal, so he needs 7 more day of Ceftin ending on 10/23 -pleural effusion with pleural paques evaluated by Dr. Dominic Mayo recommend outpatient w/u for asbestosis, so outpatient referal to him COPD exacerbation. Resolved now. He has completed 10 days of steroid. He has been evaluated for home O2 and qualify for 3 Liters by nasal anirudh--instructed not to smoke around oxygen. In fact he doesn't think he will smoke and will prescribe nicotine patch. To continue inhalers and adhere to non-smoking. Hyponatremia. Sodium level was 128 on admission but has since been normal randing from 136 to 142 Schizophrenia. Continue home medications (Benztropine, clozapine, Depakote, Prolixin) Diabetes mellitus. At home, he is on Levemir 45 in the morning and 30 at night, he was getting corresponding lantus and was getting hypoglycemia into 30s. Presently he is on Lantus 10 units at night with fasting blood sugar this morning of 126 therefore we should be very cautious to to discharge with same doses of insulin, perhaps reduce by a 1/4th. Converting Levemir to Lantus, reduce dose by 20% (ie 100 U Levemir-->80 U Lantus) Hypothyroidism. Continue levothyroxine. Hypertension. Continue atenolol at 25 mg daily, Previously was 3 times a day but was having episodes of low blood pressure, so we adjusted this Hyperlipidemia. Continue statin. Generalized swelling in legs likely from, swelling is better Smoker. NRT, discussed the importance of cessation. Rash on right hand and back --c/w with scabies. Applied Permethrin on 10/14/20 and should be repeat in a week (on 10/21/20) or alerternative to give Ivermectin DVT prophylaxis with Lovenox. Check covid today and likely dc back to detention tomorrow Time Spent with Patient Time attestation: Total time spent providing and/or coordinating discharge services: Physical Exam Vital Signs: Vital Signs: Selected Entries 10/20/20 07:58 Temperature 97.7 F Pulse Rate 74 Respiratory Rate 18 Blood Pressure 120/68 Pulse Oximetry 92 Body Mass Index 30.4 Discharge Plan Discharge Anticipated Discharge Date/Time: 10/20/20 11:47 Patient Disposition: Home Health Service Referrals: detention [Other] [facility] [Outside] Physician,Unknown [Primary Care Provider] - Discharge Medications: New cefuroxime axetil 500 mg Tablet 500 mg PO BID Qty: 8 RF: 0 insulin lispro [Humalog U-100 Insulin] 100 unit/mL Solution See Rx Instructions unit .ROUTE .COMPLEX Qty: 10 RF: 0 Continued atorvastatin 40 mg tablet 40 mg PO BEDTIME RF: 0 gabapentin 600 mg tablet 1 tab PO TID RF: 0 fluphenazine HCl 2.5 mg tablet 1 tab PO BID RF: 0 clozapine 100 mg Tablet 150 mg PO BEDTIME RF: 0 lithium carbonate 300 mg tablet extended release 300 mg PO DAILY RF: 0 lithium carbonate 450 mg tablet extended release 450 mg PO BEDTIME RF: 0 tamsulosin 0.4 mg capsule 1 cap PO DAILY RF: 0 metformin 1,000 mg tablet 1 tab PO BIDWM RF: 0 levothyroxine 150 mcg tablet 1 tab PO DAILY RF: 0 benztropine 2 mg tablet 1 tab PO BID RF: 0 clozapine 25 mg Tablet 50 mg PO DAILY RF: 0 albuterol sulfate [Ventolin HFA] 90 mcg/actuation HFA aerosol inhaler 1 puff inhalation Q6H PRN (Reason: Shortness Of Breath) RF: 0 divalproex 250 mg tablet extended release 24 hr 1 tab PO DAILY RF: 0 Changed Levemir FlexTouch U-100 Insuln 100 unit/mL (3 mL) insulin pen 25 unit subcut BEDTIME Qty: 0 RF: 0 atenolol 50 mg tablet 25 mg PO DAILY Qty: 0 RF: 0 Discontinued glipizide 10 mg tablet extended release 24hr 1 tab PO BIDWM RF: 0 Levemir FlexTouch U-100 Insuln 100 unit/mL (3 mL) insulin pen 45 unit subcut DAILY RF: 0 Discharge Orders: Discharge Order (Routine); Ordered 10/19/20 Ordered By: Judd Malone Diet: advance to usual diet and diabetic diet Activity on Discharge: As tolerated Visit Report Forms: Patient Portal Discharge page Care Plan Goals: Prevent rehospitalization Health Concerns: need work up for asbestosis Plan of Treatment: Take antibitiotics as recommended, use oxygen as recommended, do not smoke, especially next o oxygen tank Note that Atenololhas been decreased from 25mg TID to 25 mg daily because of low blood pressure Note that your insulin has been reduced to 25 units at night time before meal insulin is added with the following direction: Less than or equal to 110 ---- Give (units):0 111 to 150 Give (units):0 151 to 200 Give (units):2 201 to 250 Give (units):4 251 to 300 Give (units):6 301 to 350 Give (units):8 Greater than 350 Give (units):10 Call MD if Blood Glucose > : 350
--- NOTE | 2020-10-20 12:11 | MHC.CM.PN ---
DC summary and packet has been successfully faxed to the [facility] and will be uploaded into [employer]. [facility] RN has made several attempts to complete a RN To RN verbal hand off.
== END 2020-10-20 13:37 | disposition home health service (06) | DRG 193 ==
LOC: HO.ED 17:15 → HO.IMC 21:00
PROVIDERS: Hospitalist; Internal Medicine Nephrology; Nurse Practitioner Acute Care; Nurse Practitioner Family; Admitting Provider Internal Medicine; Emergency Provider Internal Medicine; Visit Provider Internal Medicine
DX: J18.1 Lobar pneumonia, unspecified organism (principal); J96.01 Acute respiratory failure with hypoxia; E87.1 Hypo-osmolality and hyponatremia; J44.0 Chronic obstructive pulmonary disease with (acute) lower respiratory infection; J44.1 Chronic obstructive pulmonary disease with (acute) exacerbation; J91.8 Pleural effusion in other conditions classified elsewhere; F17.210 Nicotine dependence, cigarettes, uncomplicated; Z71.6 Tobacco abuse counseling; F20.9 Schizophrenia, unspecified; E78.5 Hyperlipidemia, unspecified; E03.9 Hypothyroidism, unspecified; J92.0 Pleural plaque with presence of asbestos; B86 Scabies; E11.649 Type 2 diabetes mellitus with hypoglycemia without coma; Z87.820 Personal history of traumatic brain injury; Z20.828 Contact with and (suspected) exposure to other viral communicable diseases; Z88.0 Allergy status to penicillin; Z79.1 Long term (current) use of non-steroidal anti-inflammatories (NSAID); Z79.84 Long term (current) use of oral hypoglycemic drugs; Z79.899 Other long term (current) drug therapy
CPT/HCPCS: 0241U; 36415; 71045; 71046; 71250; 80048; 80051; 80076; 82947; 83605; 83735; 83880; 83930; 83935; 84133; 84295; 84300; 84484; 85025; 85610; 85652; 86038; 86039; 87040; 87449; 87633; 93005; 94640; 94664; 96361; 96365; 96366; 96367; 96375; 99285; J0456; J0696; J1650; J1940; J2920; J2930

== ENCOUNTER 2020-12-15 16:47 | Emergency (ER) | payer MEDICARE, MEDICAID, SELFPAY ==
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
[2020-12-15 17:14] VITALS: BP 119/64; PULSE 89; RESP 16; TEMP 37.2; O2SAT 95; BMI 27.1
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
== END 2020-12-15 20:38 | disposition home or self-care (01) ==
PROVIDERS: Emergency Provider Internal Medicine
DX: S19.9XXA Unspecified injury of neck, initial encounter (principal); M54.2 Cervicalgia; R51.9 Headache, unspecified; Y04.8XXA Assault by other bodily force, initial encounter; Y93.9 Activity, unspecified; Y92.9 Unspecified place or not applicable; Y99.9 Unspecified external cause status; F17.200 Nicotine dependence, unspecified, uncomplicated; Z79.899 Other long term (current) drug therapy; Z71.6 Tobacco abuse counseling
CPT/HCPCS: 70450; 72125; 99284

== ENCOUNTER 2021-01-05 12:14 | Outpatient (REF) | payer MEDICARE, MEDICAID, SELFPAY ==
[2021-01-05 14:37] LABS: TSH reflex Free T4 3.71 uIU/mL (0.32-4.0)
[2021-01-05 15:26] LABS: Creatinine Urine 75.78 mg/dL
== END 2021-01-05 12:15 | disposition home or self-care (01) ==
LOC: HO.10HDL 12:14
PROVIDERS: Visit Provider Internal Medicine
DX: N40.0 Benign prostatic hyperplasia without lower urinary tract symptoms (principal); E03.9 Hypothyroidism, unspecified
CPT/HCPCS: 36415; 82043; 84443

== ENCOUNTER 2021-04-21 15:57 | Outpatient (REF) | payer MEDICARE, MEDICAID, SELFPAY ==
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
== END 2021-04-21 15:58 | disposition home or self-care (01) ==
LOC: HO.CT 15:57
PROVIDERS: Visit Provider Surgery
DX: Z77.090 Contact with and (suspected) exposure to asbestos (principal)
CPT/HCPCS: 71250

== ENCOUNTER 2024-02-15 12:09 | Inpatient (IN) | payer MEDICARE, MEDICAID, SELFPAY ==
[2024-02-15] VITALS (16 sets, daily range): BP systolic 105–160; BP diastolic 58–100; PULSE 64–92; RESP 13–24; TEMP 35.5–37.2; O2SAT 87–97; BMI 27.1
--- NOTE | ~2024-02-15 | XR_ITS ---
EXAMINATION: XR CHEST CLINICAL INFORMATION: Tube placement COMPARISON: Portions of chest CT 02/15/24. Frontal view of the chest 02/15/24 TECHNIQUE: Upright frontal portable view of the chest was obtained. FINDINGS: The enteric tube tip terminates in the epigastric region. The tip is at or near the GE junction. The port is above the expected region of the GE junction. Cardiac size is within normal limits. There are some reticular and hazy densities in the lower chest. There is pneumoperitoneum. Pleural calcifications better demonstrated on previous CT. There are midline skin kelli which were not present on 02/16/24 XR/XR chest 1V IMPRESSION: Enteric tube tip terminates at or near the GE junction. Recommend advancement. Nonspecific lung base opacities Pneumoperitoneum with new skin kelli suggesting this is related to recent surgery.
--- NOTE | ~2024-02-15 | XR_ITS ---
EXAMINATION: XR CHEST CLINICAL INFORMATION: Nasogastric tube placement COMPARISON: Previous chest x-ray February 17, 2024 TECHNIQUE: Frontal view of the chest was obtained. FINDINGS: Nasogastric tube tip projects over proximal to mid stomach. The cardiac and mediastinal contours are stable. There is subsegmental atelectasis at the lung bases. Lungs are otherwise clear. There is blunting of the left lateral costophrenic angle similar to prior exam suggestive of a small left pleural effusion or pleural thickening also unchanged. No pneumothorax. XR/XR chest 1V IMPRESSION: Nasogastric tube tip projects over proximal to mid stomach.
--- NOTE | ~2024-02-15 | CT_ITS ---
EXAMINATION: CT CHEST WITHOUT CONTRAST CLINICAL INFORMATION: Shortness of breath hypoxia COMPARISON: CT chest from 04/21/2021 TECHNIQUE: Multidetector volumetric CT imaging of the chest was done. Axial MIP volume rendering provided. Sagittal and coronal reformatted images were obtained. This CT examination was performed using dose optimization techniques as appropriate, variously including the following: *Automated exposure control *Adjustment of mA and/or kV according to patient size (this includes techniques or standardized protocols for targeted exams where dose is matched to indication/reason for exam; i.e. extremities or head) *Use of iterative reconstruction technique DLP: 282 mGy-cm FINDINGS: LUNGS/PLEURA: Redemonstrated diffuse emphysematous changes. Biapical pleural parenchymal scarring. Peripheral reticular nodular opacities. Stable 2 mm nodular focus lateral aspect right lung apex (series 5, image 48). Slightly increased reticular and interstitial opacities with bronchial thickening which may reflect underlying infectious/inflammatory etiology though progression of emphysematous changes not excluded. Stable nodular focus abutting the right minor fissure (series 5, image 284) measuring 6 mm. Redemonstrated bilateral pleural plaques. Bibasilar atelectasis. Stable atelectatic changes versus scarring involving the lingula and left lower lobe. Region of increased consolidation along the posterior aspect of the lingula abutting the left major fissure may reflect atelectasis versus infectious/inflammatory etiology. New 2 mm nodule anterior aspect right upper lobe (series 5, image 189). Central airways are patent. No pneumothorax. No large pleural effusion. MEDIASTINUM: Heart is not enlarged. No pericardial effusion. Coronary artery calcifications are noted. Aorta is nonaneurysmal and demonstrates atherosclerotic calcifications. Main pulmonary artery is not enlarged. No enlarged lymph nodes per size criteria. AXILLA: No lymphadenopathy. UPPER ABDOMEN: Small amount of perihepatic and perisplenic ascites noted. OSSEOUS STRUCTURES: Osteopenia. Multilevel degenerative changes of the thoracolumbar spine. CT/CT chest wo IV con IMPRESSION: 1. Diffuse emphysematous changes. Slightly increased reticular and interstitial opacities with bronchial thickening may reflect underlying infectious/inflammatory etiology though progression of emphysematous changes not excluded. Region of increased consolidation along the posterior aspect of the lingula abutting the left major fissure may reflect atelectasis versus infectious/inflammatory etiology. 2. Stable atelectatic changes versus scarring involving the lingula and left lower lobe. 3. Stable nodular focus abutting the right minor fissure measuring 6 mm. 4. New 2 mm nodule anterior aspect right upper lobe. Follow-up as per Fleischner criteria. 5. Small amount of perihepatic and perisplenic ascites noted. 6. Osteopenia. According to the UPDATED 2017 Fleischner Society recommendations, the advised follow-up imaging for solid nodules < 6 mm is: HIGH RISK PATIENT: Optional CT at 12 months.
--- NOTE | ~2024-02-15 | XR_ITS ---
EXAMINATION: XR CHEST CLINICAL INFORMATION: NG tube placement COMPARISON: Chest radiograph earlier today at 5:06 PM TECHNIQUE: Frontal view of the chest was obtained. FINDINGS: Pneumoperitoneum is no longer appreciated bibasilar scarring is present. No CHF or pleural effusion. An NG tube is present with its tip just beyond the GE junction. This could probably be advanced. XR/XR chest 1V IMPRESSION: NG tube with tip just beyond the GE junction.
--- NOTE | ~2024-02-15 | XR_ITS ---
EXAMINATION: XR CHEST CLINICAL INFORMATION: Tube placement. COMPARISON: Chest radiograph done earlier the same day. TECHNIQUE: Frontal view of the chest was obtained. FINDINGS: Enterogastric tube with the tip beneath the left hemidiaphragm and in the region of the gastric fundus. Diffuse interstitial prominence with patchy left midlung opacities, similar when compared to the prior examination. Trace bilateral pleural effusions versus pleural thickening, unchanged. No pneumothorax. Stable cardiomediastinal silhouette. XR/XR chest 1V IMPRESSION: 1. Enterogastric tube in appropriate position. 2. Diffuse interstitial prominence with patchy left midlung opacities, similar when compared to the prior examination. Trace bilateral pleural effusions versus pleural thickening, unchanged.
--- NOTE | ~2024-02-15 | CT_ITS ---
EXAMINATION: CT ABDOMEN AND PELVIS WITH CONTRAST CLINICAL INFORMATION: Diffuse abdominal pain COMPARISON: Selected images of the chest CT of 10/10/2020, CT abdomen and pelvis of 06/30/2010 TECHNIQUE: Multidetector volumetric images were obtained from the superior aspect of the liver through the pubic symphysis following administration 85 mL of Omnipaque 350 intravenous contrast. Sagittal and coronal reformatted images were obtained on the technologist's workstation. Oral contrast: No This CT examination was performed using dose optimization techniques as appropriate, variously including the following: *Automated exposure control *Adjustment of mA and/or kV according to patient size (this includes techniques or standardized protocols for targeted exams where dose is matched to indication/reason for exam; i.e. extremities or head) *Use of iterative reconstruction technique DLP: 511 mGy-cm FINDINGS: LUNG BASES: Calcified pleural plaques at the lung bases are again noted. Trace right pleural effusion with pleural thickening. Mild pleural thickening of the left lung base posteriorly. LIVER, GALLBLADDER, AND BILIARY TREE: The liver is normal in size, contour and attenuation. No focal liver lesion is seen. Minimal intrahepatic biliary ductal dilatation. The proximal common bile duct is mildly dilated measuring up to 1.1 cm. Mid to distal common bile duct measures 0.7 cm in diameter. No radiopaque calculi are seen. The gallbladder is mildly distended with no evidence of radiopaque gallstones, gallbladder wall thickening, or obvious pericholecystic inflammatory changes. PANCREAS: Unremarkable. SPLEEN: Unremarkable. ADRENAL GLANDS: Unremarkable. KIDNEYS AND URETERS: The kidneys are normal in size, shape, and attenuation. No hydronephrosis, hydroureter, or obstructing calculi seen. No perinephric stranding. Measuring up to 0.3 cm are noted in the mid kidneys, may represent vascular calcifications versus nonobstructing calculi. BLADDER: Underdistended and therefore not optimally evaluated. No radiopaque calculi. GASTROINTESTINAL TRACT: Moderate to severe distention of the stomach containing fluid with small volume air. No evidence of definite gastric wall thickening. Multiple dilated fluid-filled small bowel loops are noted in the central abdomen and right hemiabdomen with significant mesenteric fluid and edema maximum dilatation of the small bowel loop in the right hemiabdomen measure up to 4 cm. No evidence of intestinal pneumatosis. There is mild swirling of the mesentery in the right hemiabdomen with mild rightward displacement of the SMA SMV, with SMV coursing on the right and posterior to the SMA suggesting partial twisting of the small bowel mesentery here. Mildly prominent mesenteric lymph nodes are noted in this region with the largest one measuring 1 cm in short axis (series 3 image 50). The zone of transition in the small bowel is noted in the right hemiabdomen (series 6 image 76/77). The duodenum and multiple proximal to mid small bowel loops in the left hemiabdomen are decompressed. The colon is normal in caliber. No evidence of colonic wall thickening or pericolonic fat stranding. Moderate to large stool burden in the transverse colon, left-sided colon and rectosigmoid colon. An appendix is lump however normal in appearance containing air in the lumen. Distal ileal loops including terminal ileum are decompressed. No evidence of intestinal pneumatosis. PERITONEAL CAVITY: Small perisplenic and fatty hepatic free fluid as well as small free fluid in the right hemiabdomen with trace fluid in the pelvis. No free intraperitoneal air. ABDOMINAL WALL: No significant hernia is appreciated. LYMPH NODES: No evidence of pathologically enlarged lymph nodes. VASCULAR: The aortoiliac vessels are normal in caliber and appears well opacified. Moderate aortoiliac calcific atherosclerosis is noted. Celiac axis is normal in caliber and well opacified. SMA is normal in caliber and demonstrate normal enhancement on this non-CTA contrast-enhanced examination. Atherosclerotic calcifications are noted at the origin of the SMA. FLORA is normal in caliber and appears to demonstrate normal enhancement. There is no evidence of mesenteric or portal venous air. Extremity intrahepatic portal venous system, including in and SMV demonstrate normal enhancement. IVC is intact demonstrating normal enhancement. PELVIC VISCERA: Unremarkable. OSSEOUS STRUCTURES: No acute or suspicious osseous lesions. CT/CT abdomen pelvis w IV con IMPRESSION: 1. Findings are consistent with high-grade small bowel obstruction with zone of transition in the right hemiabdomen with extensive small bowel mesentery edema and fluid in the right hemiabdomen. There is mild swirling of the mesentery in the right hemiabdomen with mild rightward displacement of the SMA and SMV, with SMV coursing on the right and posterior to the SMA suggesting partial twisting of the small bowel mesentery here. No evidence of intestinal pneumatosis. No evidence of mesenteric or portal venous air. Small ascites. No evidence of free intraperitoneal air. Differential possibility for obstruction may include adhesions, internal hernia, small bowel volvulus etc. 2. Moderate to large stool burden in the transverse colon, left-sided colon and rectosigmoid colon. 3. Mild intrahepatic and extrahepatic biliary ductal dilatation. No radiopaque calculi are seen. Recommend correlation with liver function tests. 4. Calcified pleural plaques at the lung bases. Trace right pleural effusion with pleural thickening. Mild pleural thickening of the left lung base posteriorly. Findings are likely related to prior asbestos exposure. Recommend clinical correlation. Fleischner guidelines were followed. The results were discussed with EDEL Kennedy on 02/15/2024 at 3:47 PM.
--- NOTE | ~2024-02-15 | XR_ITS ---
EXAMINATION: XR CHEST CLINICAL INFORMATION: Shortness of breath COMPARISON: CT from 04/21/2021 TECHNIQUE: Frontal view of the chest was obtained. FINDINGS: Diffuse reticular-nodular interstitial opacities seen within the bilateral lung parenchyma with additional patchy nodular opacities in the bilateral lower lobes. There appears to be a trace left pleural effusion. Heart is normal in size. XR/XR chest 1V IMPRESSION: Diffuse reticular-nodular interstitial opacities with additional patchy nodular opacities in the bilateral lower lobes. Trace left pleural effusion.
--- NOTE | ~2024-02-15 | XR_ITS ---
EXAMINATION: XR ABDOMEN KUB CLINICAL INDICATION: Follow-up small bowel obstruction. COMPARISON: CT abdomen/pelvis 02/15/2024. TECHNIQUE: AP view of the abdomen. FINDINGS: Similar to slightly increased dilatation of central loops of the small bowel for example measuring up to 4.8 cm in diameter previously approximately 4 cm on the rn trauma view of recent CT. Again noted moderate to large stool burden in the colon. Residual contrast in the urinary bladder. No acute bone findings. Lung bases are clear. XR/XR KUB IMPRESSION: 1. Similar to slightly increased dilatation of central small bowel loops. 2. Moderate to large colonic stool burden.
--- NOTE | 2024-02-15 12:36 | ED.ABDPAIN ---
HPI - Abdominal Pain General Chief Complaint: Abdominal Pain Stated Complaint: abdominal pain after eating x1 hour -from grp home Time Seen by Provider: 02/15/24 12:49 Source: patient and EMS Mode of arrival: EMS Limitations: other (Poor historian) History of Present Illness HPI narrative: 58-year-old male history of COPD, hyperlipidemia, hypertension, [id number] diabetes, hypothyroidism, cognitive impairment presenting from senior living with severe abdominal pain, nausea which started this morning. Patient coming from senior living with very poor historian. Unable to really elaborate on his symptoms. He states he is in severe 10/ pain. Patient comes in by EMS who reports similar story. Denies fevers, chills, chest pain, shortness of breath, headache, vision changes, dizziness, weakness. Related Data Home Medications ?Medication ?Instructions ?Recorded ?Confirmed albuterol sulfate 90 mcg/actuation 1 puff inhalation Q6H PRN 10/10/20 10/10/20 aerosol inhaler (Ventolin HFA) Shortness Of Breath atorvastatin 40 mg tablet 40 mg PO BEDTIME 10/10/20 10/10/20 benztropine 2 mg tablet 1 tab PO BID 10/10/20 10/10/20 clozapine 100 mg tablet 150 mg PO BEDTIME 10/10/20 10/10/20 clozapine 25 mg tablet 50 mg PO DAILY 10/10/20 10/10/20 divalproex 250 mg tablet,extended 1 tab PO DAILY 10/10/20 10/10/20 release 24 hr fluphenazine HCl 2.5 mg tablet 1 tab PO BID 10/10/20 10/10/20 gabapentin 600 mg tablet 1 tab PO TID 10/10/20 10/10/20 levothyroxine 150 mcg tablet 1 tab PO DAILY 10/10/20 10/10/20 lithium carbonate 300 mg 300 mg PO DAILY 10/10/20 10/10/20 tablet,extended release lithium carbonate 450 mg 450 mg PO BEDTIME 10/10/20 10/10/20 tablet,extended release metformin 1,000 mg tablet 1 tab PO BIDWM 10/10/20 10/10/20 tamsulosin 0.4 mg capsule 1 cap PO DAILY 10/10/20 10/10/20 ibuprofen 600 mg tablet 600 mg PO Q6H PRN Pain 10/20/20 10/20/20 loratadine 10 mg tablet 10 mg PO DAILY 10/20/20 10/20/20 Previous Rx's ?Medication ?Instructions ?Recorded cefuroxime axetil 500 mg tablet 500 mg PO BID #8 tabs 10/19/20 atenolol 50 mg tablet 25 mg (1/2 x 50 mg) PO DAILY #0 10/20/20 tabs insulin detemir U-100 100 unit/mL 25 unit (0.25 mL) subcut BEDTIME 10/20/20 (3 mL) subcutaneous pen (Levemir #0 mL FlexTouch U-100 Insulin) insulin lispro 100 unit/mL See Rx Instructions .Route 10/20/20 subcutaneous solution (Humalog .COMPLEX #10 mL U-100 Insulin) Allergies Allergy/AdvReac Type Severity Reaction Status Date / Time amoxicillin [AMOXICILLIN] Allergy Intermediate SKIN RASH Verified 02/15/24 12:34 egg [EGGS] Allergy Intermediate HIVES, Verified 02/15/24 12:34 VOMITING Penicillins [PENICILLINS] Allergy Intermediate SKIN RASH Verified 02/15/24 12:34 Sulfa (Sulfonamide Allergy Intermediate SKIN RASH Verified 02/15/24 12:34 Antibiotics) [SULFA (SULFONAMIDE ANTIBIOTICS)] trimethoprim [TRIMETHOPRIM] Allergy Intermediate SKIN RASH Verified 02/15/24 12:34 penicillin V Allergy Unknown Unknown Verified 02/15/24 12:34 haloperidol [From Haldol] Allergy Unknown Verified 02/15/24 12:34 Latex, Natural Rubber Allergy Unknown Verified 02/15/24 12:34 methylprednisolone Allergy Unknown Verified 02/15/24 12:34 [From Solu-Medrol] penicillin Allergy Unknown Unknown Uncoded 10/10/20 14:35 sultamicillin Allergy Unknown Unknown Uncoded 10/10/20 14:35 trimethoprim Allergy Unknown Unknown Uncoded 10/10/20 14:35 [facility] Past Medical History Medical History (Updated 02/15/24 @ 15:50 by EDEL Kennedy) Hypothyroidism Diabetes mellitus type 2 in nonobese Hyperlipidemia Personal history of nicotine dependence Rash Loculated pleural effusion (~10/2020) Asbestos-induced pleural plaque Traumatic brain injury Schizophrenia HTN (hypertension) COPD (chronic obstructive pulmonary disease) Asthma Social History Social History Household Members: Caregiver and Other Household Members Other:: senior living Housing: House Alcohol intake: never Cigarette Packs Per Day: 1.5 Smoked in Last 30 Days: Yes Use of substances other than those prescribed or required for medical reasons: No Substance Use Type: Marijuana Advance Directives: No Advance Directives Information Provided: No service: No Current occupational status: disabled Physical Exam ED Vital Signs: Vital Signs - 24 hr 02/15/24 12:29 02/15/24 13:00 02/15/24 13:04 Temperature 97.7 F Pulse Rate 64 Respiratory Rate 22 H 18 Blood Pressure 105/58 L 133/75 Pulse Oximetry 93 Oxygen Delivery Method Room Air Oxygen Flow Rate 02/15/24 14:00 02/15/24 14:40 02/15/24 14:45 Temperature 96 F L Pulse Rate 83 83 Respiratory Rate 15 13 Blood Pressure 131/62 129/63 Pulse Oximetry 95 87 L Oxygen Delivery Method Room Air Room Air Oxygen Flow Rate 02/15/24 14:48 02/15/24 15:00 02/15/24 15:26 Temperature Pulse Rate 79 Respiratory Rate 24 H Blood Pressure 130/66 114/92 H Pulse Oximetry 94 96 Oxygen Delivery Method Nasal Cannula Nasal Cannula Oxygen Flow Rate 1 1 BMI result Body Mass Index 27.1 vss Appearance: Alert.? Oriented X3.? No acute distress.? Head: Normocephalic, atraumatic, no step-offs or deformities Eyes: Pupils equal, round and reactive to light.? Neck: Normal inspection.? Neck supple.? CVS: Normal heart rate and rhythm.? Pulses normal.? Respiratory: No respiratory distress.? Breath sounds normal.? Abdomen: Soft and significant abdominal discomfort with rebound tenderness. Hypoactive bs throughout .? Skin: Skin warm and dry.? Normal skin color.? Normal skin turgor.? Extremities: No lower extremity edema.? No calf ttp. 5/5 strength to bilateral upper and lower extremities Neuro: Oriented X 3.? No motor deficit.? No sensory deficit. CN 2-12 intact Course Course Course Narrative: This is a Rapid Medical Examination (RME) in triage, full HPI, ROS, assessment and plan per primary provider in the Main ED. 58 yo male with history of COPD, HTN, DM, schizophrenia, PNA who presents to the ER via EMS from a senior living for acute onset of abdominal pain that started 2 hours ago after eating. Yelling for something for pain. Poor historian Plan: labs, IV pain meds Reevaluation(s) Reevaluation #1: CBC with leukocytosis, chemistry pending. At this time infection suspected. Sepsis alert paged overhead. Sepsis focused exam done at time of patient's arrival. Time: 13:26 Reevaluation #2: Chemistry no acute findings requiring intervention. Negative troponin. Lipase normal. Lactic acid normal. UA without infection. Chest x-ray with diffuse reticular nodular interstitial opacities with additional patchy nodular opacities in bilateral lower lobes. This could explain patient's hypoxia. He was given ceftriaxone. Trace left pleural effusions. Time: 15:30 Reevaluation #3: CT abd and pelvis pending. Time: 15:35 Additional Reevaluation(s): CT abdomen pelvis with findings consistent of high-grade small-bowel obstruction with zone transitioning in the right hemidiaphragm extensive small bowel mesentery and edema and fluid in the right hemiabdomen. There is mild swirling of the mesentery in the right hemiabdomen and mild rightward displacement of the SMA and SMV with SMV coarsening of the right and posterior to the SMA suggesting partial twisting of the small bowel mesentery here. Small amount of ascites. No free air. Moderate to large stool burden in the transverse colon. Surgery at the bedside who recommends hospitalist admission. CT chest pending. [facility] Decision Making Medical Decision Making [facility] Narrative: 1300 58-year-old male presents for evaluation of severe abdominal pain and nausea that started about an hour ago. Patient very poor historian. Physical exam significant abdominal discomfort with rebound tenderness. History and physical exam concerning for possible viral illness versus acute intra-abdominal pathology. Will rule out kidney stones, diverticulitis, pancreatitis, appendicitis, cholecystitis, obstruction. Will rule out metabolic derangements and urinary infection. Plan labs, urine, imaging. Differential Diagnosis Differential Diagnoses: The differential diagnosis associated with the presentation includes History and physical exam concerning for possible viral illness versus acute intra-abdominal pathology. Will rule out kidney stones, diverticulitis, pancreatitis, appendicitis, cholecystitis, obstruction. Will rule out metabolic derangements and urinary infection. Admission/Observation Consideration of admission/observation: Escalation of care including admission/observation considered Likely Lab Data [facility] Lab Attestation statement: I reviewed the patient's lab results. 02/15/24 13:12 02/15/24 13:12 Labs: Lab Results 02/15/24 02/15/24 02/15/24 Range/Units 13:12 13:38 15:14 WBC 23.2 H (4.8-10.8) X10*3/uL RBC 5.51 (4.60-5.80) X10*6/uL Hgb 14.2 (14.0-18.0) g/dl Hct 46.0 (42.0-52.0) % MCV 83.5 (80.0-98.0) fL MCH 25.8 L (27.0-33.0) pg MCHC 30.9 L (31.0-36.0) g/dl RDW 16.0 (11.0-16.0) % Plt Count 334 (160-400) X10*3/uL MPV 9.2 L (9.4-12.4) fL Immature Gran % (Auto) 0.9 H (0.0-0.4) % Neut % (Auto) 90.2 H (45-73) % Lymph % (Auto) 6.0 L (20-40) % [place] % (Auto) 2.5 (2-11) % Eos % (Auto) 0.1 (0-4) % Baso % (Auto) 0.3 (0-2) % Lymph # (Auto) 1.4 (1.2-4.9) X10*3/uL [place] # (Auto) 0.6 (0.1-1.2) X10*3/uL Eos # (Auto) 0.0 (0.0-0.4) X10*3/uL Baso # (Auto) 0.1 (0.0-0.2) X10*3/uL Abs Immat Gran (auto) 0.20 H (0.00-0.03) X10*3/uL Absolute Neuts (auto) 21.0 H (2.0-8.3) x10*3/uL Absolute Nucleated RBC 0.000 (0.0-0.012) X10*3/uL Nucleated RBC % (auto) 0.0 (0.0-0.2) /100WBC Smear Tech's Comments VERIFIED Sodium 136 (135-145) mmol/L Potassium 4.0 (3.3-5.1) mmol/L Chloride 98 (96-108) mmol/L Carbon Dioxide 30 H (22-29) mmol/L Anion Gap 12 (12-20) BUN 8 L (9-16) mg/dL Creatinine 0.87 (0.5-1.4) mg/dL Estim Creat Clear Calc 101.5 Estimated GFR > 60 Random Glucose 199 H (60-115) mg/dL Lactic Acid 1.6 (0.5-2.0) mmol/L Calcium 9.7 D (8.4-10.2) mg/dL Magnesium 1.9 (1.6-2.6) mg/dL Total Bilirubin 0.5 (0.0-1.0) mg/dL Direct Bilirubin 0.2 (0.0-0.5) mg/dL AST 10 (5-37) U/L ALT 6 (0-40) U/L Alkaline Phosphatase 113 (39-117) U/L Troponin I High Sens < 2.7 (<3.5-35.0) ng/L Total Protein 7.8 (6.5-8.0) g/dL Albumin 4.0 (3.5-5.0) g/dL Lipase 15 (8-78) U/L Urine Color Yellow Urine Appearance Clear Urine pH 7.5 (5.0-9.0) Ur Specific [place] >= 1.030 H (1.005-1.025) Urine Protein Negative (Neg-Trace) mg/dL Urine Glucose (UA) Negative (Negative) mg/dL Urine Ketones Negative (Negative) mg/dL Urine Blood Negative (Negative) Urine Nitrite Negative (Negative) Ur Leukocyte Esterase Negative (Negative) Independent Interpretation I performed an independent interpretation of an: EKG (Vent. Rate : 077 BPM Atrial Rate : 077 BPM P-R Int : 158 ms QRS Dur : 096 ms QT Int : 384 ms P-R-T Axes : 073 037 089 degrees QTc Int : 434 ms Normal sinus rhythm Minimal voltage criteria for LVH, may be normal variant ( Sokolow-Baker ) Borderline ECG When compared with), Plain X-Ray ( XR/XR chest 1V IMPRESSION: Diffuse reticular-nodular interstitial opacities with additional patchy nodular opacities in the bilateral lower lobes. Trace left pleural effusion. ) and CT Scan (CT/CT abdomen pelvis w IV con IMPRESSION: 1. Findings are consistent with high-grade small bowel obstruction with zone of transition in the right hemiabdomen with extensive small bowel mesentery edema and fluid in the right hemiabdomen. There is mild swirling of the mesentery in the right hemiabdom) Radiology Impression Discussion of test interpretation with radiology: I have reviewed the radiologist's reading. Independent Historian Clinical information obtained from an independent historian. History obtained from or confirmed by: EMS External Record Review External record reviewed: Inpatient record, Office record, Outpatient record, Prior outpatient labs, Prior outpatient radiology, Primary care record and Outside ED record Chronic Conditions Patient?s care impacted by: Hypertension and Other (COPD, hyperlipidemia, hypertension, [id number] diabetes, hypothyroidism, cognitive impairment) Medications Administered Discontinued Medications Generic Name Dose Route Start Last Admin Trade Name Freq PRN Reason Stop Dose Admin Sodium Chloride 2,721.54 mls @ 2,721.54 mls/hr 02/15/24 13:24 02/15/24 15:58 Ns 30 ml/kg infuse over 1 hr (2721.54 ml) 02/15/24 14:23 Infused IV Infusion .Q1H STA Ceftriaxone Sodium 1 gm/ 50 mls @ 100 mls/hr 02/15/24 13:24 02/15/24 14:09 Sodium Chloride IV 02/15/24 13:53 Infused ONCE ONE Infusion Iohexol 85 ml 02/15/24 14:41 02/15/24 14:42 Iohexol 350 Mg/Ml 100 Ml Infus..Btl IV 02/15/24 14:42 85 ml ONCE ONE Administration Morphine Sulfate 4 mg 02/15/24 12:36 02/15/24 13:04 Morphine Sulfate 4 Mg/Ml Cartridge IVPUSH 02/15/24 12:37 4 mg ONCE ONE Administration Protocol Morphine Sulfate 2 mg 02/15/24 14:23 02/15/24 15:52 Morphine Sulfate 2 Mg/Ml Cartridge IVPUSH 02/15/24 14:24 2 mg ONCE ONE Administration Protocol Ondansetron HCl 4 mg 02/15/24 12:36 02/15/24 13:04 Ondansetron Hcl 4 Mg/2 Ml Vial IVPUSH 02/15/24 12:37 4 mg ONCE ONE Administration Critical Care Time Critical Care Time Critical Care Time: Yes Total Critical Care Time: 60 Attestation: I attest to this time spent taking care of the patient, obtaining history, physical, reviewing labs, imaging, speaking to my attending Discharge Plan Discharge Clinical Impression: Pneumonia, Hypoxia, SBO (small bowel obstruction) Patient Disposition: Admitted As Inpatient Print Language: Albanian
--- NOTE | 2024-02-15 12:45 | PC.NURSE ---
pt screaming in pain
[2024-02-15] MEDS: Morphine Sulfate 4 MG/ML CARTRIDGE IVPUSH (13:04)
[2024-02-15] MEDS: ondansetron HCL 4 MG/2 ML VIAL IVPUSH ×2 (13:04→19:38)
[2024-02-15 13:20] LABS: Basophils Absolute Auto 0.1 X10*3/uL (0.0-0.2); Basophils Percent Auto 0.3 % (0-2); Eosinophils Percent Auto 0.1 % (0-4); Hemoglobin 14.2 g/dl (14.0-18.0); Imm Gran Pct Auto 0.9 % (0.0-0.4); Lymphocytes Absolute Auto 1.4 X10*3/uL (1.2-4.9); MANUAL DIFF FLAG SCAN; Mean Corpuscular HGB Conc 30.9 g/dl (31.0-36.0); Mean Corpuscular Hemoglobin 25.8 pg (27.0-33.0); Mean Corpuscular Volume 83.5 fL (80.0-98.0); Mean Platelet Volume 9.2 fL (9.4-12.4); Monocytes Absolute Auto 0.6 X10*3/uL (0.1-1.2); Monocytes Percent Auto 2.5 % (2-11); Neutrophils Percent Auto 90.2 % (45-73); Platelet Count 334 X10*3/uL (160-400); Red Blood Count 5.51 X10*6/uL (4.60-5.80); SCAN SMEAR FLAG 1; White Blood Count 23.2 X10*3/uL (4.8-10.8)
--- NOTE | 2024-02-15 13:26 | ECG_ITS ---
Test Reason : SEPSIS Blood Pressure : / mmHG Vent. Rate : 077 BPM Atrial Rate : 077 BPM P-R Int : 158 ms QRS Dur : 096 ms QT Int : 384 ms P-R-T Axes : 073 037 089 degrees QTc Int : 434 ms Normal sinus rhythm Minimal voltage criteria for LVH, may be normal variant ( Sokolow-Baker ) Borderline ECG When compared with ECG of 10-OCT-2020 15:09, No significant change was found Referred By: Marya Max Electronically Signed By:JUDAH MAYES MD
[2024-02-15] MEDS: 0.9 % Sodium Chloride 2,721.54 ML 2721.54 ML IV (13:37)
[2024-02-15 13:38] LABS: SLIDE REVIEW VERIFIED
[2024-02-15] MEDS: cefTRIAXone sodium 1 GM in 0.9 % Sodium Chloride 50 ML IV (13:39)
[2024-02-15 13:51] LABS: Alanine Aminotransferase 6 U/L (0-40); Alkaline Phosphatase 113 U/L (39-117); Anion Gap 12 (12-20); Aspartate Amino Transferase 10 U/L (5-37); Bilirubin Direct 0.2 mg/dL (0.0-0.5); Bilirubin Total 0.5 mg/dL (0.0-1.0); Blood Urea Nitrogen 8 mg/dL (9-16); Calcium 9.7 mg/dL (8.4-10.2); Carbon Dioxide 30 mmol/L (22-29); Chloride 98 mmol/L (96-108); Creatinine Clr Calc Pharmacy 101.5; Estimated Glomerular Filt Rate > 60; Glucose Random 199 mg/dL (60-115); Lipase 15 U/L (8-78); Magnesium 1.9 mg/dL (1.6-2.6); Sodium 136 mmol/L (135-145); Total Protein 7.8 g/dL (6.5-8.0)
[2024-02-15 14:02] LABS: Lactic Acid 1.6 mmol/L (0.5-2.0)
--- NOTE | 2024-02-15 14:05 | PC.NURSE ---
pt in ct scan
--- NOTE | 2024-02-15 14:40 | PC.NURSE ---
delvis tucker aware o2 level 87%
[2024-02-15] MEDS: iohexoL 350 MG/ML 100 ML INFUS..BTL 85 ML IV (14:42)
[2024-02-15 14:53] LABS: Troponin-I High Sensitivity < 2.7 ng/L (<3.5-35.0)
[2024-02-15 15:22] LABS: Appearance Urine Clear; Color Urine Yellow; Glucose Urine UA Negative (Negative); Leukocyte Esterase Urine Negative (Negative); Nitrite Urine Negative (Negative); PH 7.5 (5.0-9.0); Specific Gravity - Urine >= 1.030 (1.005-1.025); Urine Blood Negative (Negative); Urine Ketones Negative (Negative); Urine Protein Negative (Neg-Trace)
[2024-02-15] MEDS: Morphine Sulfate 2 MG/ML CARTRIDGE IVPUSH (15:52)
--- NOTE | 2024-02-15 16:08 | PM.HPGS ---
History of Present Illness History of Present Illness Date of Service: 02/25/24 Chief complaint: small bowel obstruction Narrative: David Lantigua is a 58 year old male who was sent to the ED from a detention because of abdominal pain. This apparently started 1 hour after eating. There was no vomitting documented. He was reported to complain of a lot of pain when he got in the ED so a CT scan was done. Currently, he dsays he does not have any abdominal pain anymore. He denies any nausea or vomitting. He was also hypoxic when he came earlier. He does not have any shortness of breath at this time. He is answering questions well and says he now ants to go home . He says he had BMs and flatus today. He has a hx of traumatic brain injury and schizophrenia and therefore has cognitive deficiencies. He is a little uncooperative at this time as well. Review of Systems Constitutional: Constitutional: Denies chills and Denies fever(s) Cardiovascular: Cardiovascular: Denies chest pain, Reports dyspnea and Denies dyspnea on exertion Respiratory: Respiratory: Denies cough, Reports dyspnea and Denies dyspnea on exertion Gastrointestinal: Gastrointestinal: Denies hematochezia and Denies change in bowel habits Genitourinary: Genitourinary: Denies hematuria and Denies difficulty urinating Musculoskeletal: Musculoskeletal: Denies back pain and Denies limited range of motion Neurologic: Denies focal weakness and Denies convulsions Psychiatric: Psychiatric: Denies depression and Denies mood swings PMF Past Medical History Medical History (Updated 02/22/24 @ 12:09 by Brayan Phillips DO) Hypothyroidism Diabetes mellitus type 2 in nonobese Hyperlipidemia Personal history of nicotine dependence Rash Loculated pleural effusion (~10/2020) Asbestos-induced pleural plaque Traumatic brain injury Schizophrenia HTN (hypertension) COPD (chronic obstructive pulmonary disease) Asthma Social History Social History Household Members: Other Household Members Other:: detention Housing: Other Housing Other:: [facility] Do you presently have visiting nurse or other home services: No Alcohol intake: never Comment: 1:1 sitter at bedside. Patient Tobacco Use Status: Tobacco use Unknown Cigarette Packs Per Day: 1.5 Smoked in Last 30 Days: Yes Use of substances other than those prescribed or required for medical reasons: Unknown Substance Use Type: Marijuana Currently Displaying Signs/Symptoms of Drug Intoxication Withdrawal: No Have you been hit, kicked, punched, or otherwise hurt by someone within the past year? If so, by whom?: No Do you feel safe in your current relationship?: Yes Is there a partner from a previous relationship who is making you feel unsafe now?: No Are you made to feel afraid or neglected: No Advance Directives: No Advance Directives Information Provided: No Do you have thoughts of harming others: None Do you have a plan to hurt others: No Plan Recently lost weight without trying: Unsure Nutrition Risks: No Nutritional Risk service: No Current occupational status: disabled Meds Allergies Allergy/AdvReac Type Severity Reaction Status Date / Time amoxicillin [AMOXICILLIN] Allergy Intermediate SKIN RASH Verified 02/15/24 12:34 egg [EGGS] Allergy Intermediate HIVES, Verified 02/15/24 12:34 VOMITING Penicillins [PENICILLINS] Allergy Intermediate SKIN RASH Verified 02/15/24 12:34 Sulfa (Sulfonamide Allergy Intermediate SKIN RASH Verified 02/15/24 12:34 Antibiotics) [SULFA (SULFONAMIDE ANTIBIOTICS)] trimethoprim [TRIMETHOPRIM] Allergy Intermediate SKIN RASH Verified 02/15/24 12:34 penicillin V Allergy Unknown Unknown Verified 02/15/24 12:34 haloperidol [From Haldol] Allergy Unknown Verified 02/15/24 12:34 Latex, Natural Rubber Allergy Unknown Verified 02/15/24 12:34 methylprednisolone Allergy Unknown Verified 02/15/24 12:34 [From Solu-Medrol] penicillin Allergy Unknown Unknown Uncoded 10/10/20 14:35 sultamicillin Allergy Unknown Unknown Uncoded 10/10/20 14:35 trimethoprim Allergy Unknown Unknown Uncoded 10/10/20 14:35 Home Medications ?Medication ?Instructions ?Recorded ?Confirmed ?Last Taken ?Type albuterol sulfate 90 mcg/actuation 1 puff inhalation Q6H PRN 10/10/20 02/15/24 Unknown History aerosol inhaler (Ventolin HFA) Shortness Of Breath atorvastatin 40 mg tablet 40 mg PO BEDTIME 10/10/20 02/15/24 Unknown History clozapine 100 mg tablet 200 mg PO BEDTIME 10/10/20 02/15/24 02/14/24 History clozapine 25 mg tablet 75 mg PO DAILY 10/10/20 02/15/24 02/14/24 History gabapentin 600 mg tablet 1 tab PO TID 10/10/20 02/15/24 Unknown History levothyroxine 150 mcg tablet 1 tab PO DAILY@0600 10/10/20 02/15/24 Unknown History lithium carbonate 450 mg 450 mg PO BID 10/10/20 02/15/24 Unknown History tablet,extended release metformin 1,000 mg tablet 1 tab PO BIDWM 10/10/20 02/15/24 Unknown History tamsulosin 0.4 mg capsule 1 cap PO BEDTIME 10/10/20 02/15/24 Unknown History ibuprofen 600 mg tablet 600 mg PO Q6H PRN Pain 10/20/20 02/15/24 Unknown History loratadine 10 mg tablet 10 mg PO DAILY 10/20/20 02/15/24 Unknown History dextran 70-hypromellose (PF) 0.1 1 drp ophthalmic (eye) DAILY 02/15/24 02/15/24 Unknown History %-0.3 % eye drops in a dropperette (Artificial Tears (PF)) dextran 70-hypromellose (PF) 0.1 1 drp ophthalmic (eye) DAILY PRN 02/15/24 02/15/24 Unknown History %-0.3 % eye drops in a dropperette Dry Eyes (Artificial Tears (PF)) fluphenazine HCl 1 mg tablet 1 mg PO BEDTIME 02/15/24 02/15/24 Unknown History fluticasone fur. 100 mcg-umeclid 1 ea inhalation DAILY 02/15/24 02/15/24 Unknown History 62.5 mcg-vilant 25 mcg inhalat.powder (Trelegy Ellipta) fluticasone propionate 50 1 spray intranasal DAILY 02/15/24 02/15/24 Unknown History mcg/actuation nasal spray,suspension (Flonase Allergy Relief) insulin glargine 100 unit/mL (3 30 unit subcut BEDTIME 02/15/24 02/15/24 Unknown History mL) subcutaneous pen (Basaglar KwikPen U-100 Insulin) Physical Exam Vital Signs: Vital Signs: Last Vital Signs Temp 96 F L 02/15/24 14:45 Pulse 79 02/15/24 15:26 Resp 24 H 02/15/24 15:26 BP 114/92 H 02/15/24 15:26 Pulse Ox 96 04/06/24 15:26 O2 Del Method Nasal Cannula 02/15/24 15:26 O2 Flow Rate 1 02/15/24 15:26 BMI result Body Mass Index 27.1 Const: General: comfortable and no acute distress Neck: Neck: Yes no lymphadenopathy Resp: Auscultation: clear to auscultation bilaterally Cardio: Rhythm: regular rhythm GI: Palpation (GI): Soft to palpation, nontender, no guarding and not rigid Results Results Labs: Short CBC 02/15/24 Range/Units 13:12 WBC 23.2 H (4.8-10.8) X10*3/uL Hgb 14.2 (14.0-18.0) g/dl Hct 46.0 (42.0-52.0) % Plt Count 334 (160-400) X10*3/uL BMP 02/15/24 13:12 Sodium 136 Potassium 4.0 Chloride 98 Carbon Dioxide 30 H BUN 8 L Creatinine 0.87 Calcium 9.7 D Liver Function 02/15/24 Range/Units 13:12 Total Bilirubin 0.5 (0.0-1.0) mg/dL Direct Bilirubin 0.2 (0.0-0.5) mg/dL AST 10 (5-37) U/L ALT 6 (0-40) U/L Alkaline Phosphatase 113 (39-117) U/L Albumin 4.0 (3.5-5.0) g/dL Urine 02/15/24 Range/Units 15:14 Urine Color Yellow Urine Appearance Clear Urine pH 7.5 (5.0-9.0) Ur Specific [place] >= 1.030 H (1.005-1.025) Urine Protein Negative (Neg-Trace) mg/dL Urine Glucose (UA) Negative (Negative) mg/dL Abdomen CT scan report/results: report reviewed and image reviewed CT scan - pelvis: report reviewed and image reviewed Assessment and Plan (1) SBO (small bowel obstruction): Status: Acute He came in earlier with severe abdominal pain which has since resolved. He had a CT scan done when he was in pain which suggested high grade small bowel obstruction, partial twisting of the mesentery, with moderate free fluid. Currently, he is much more comfortable, and has a benign exam. He may have had twisting fofthe mesentery that probably untwisted. He is not acidotic and his lactate is normal. CUrrently, he says he no longer in pain and wants to go home. I will admit him for close observation and place an NGT as his stomach is distended and fluid filled. He will be kept NPO and hydrated with IVF. I have requested the Hospitalist to follow him as well. I have attempted to get in touch with his HCP Acacia Traore at [phone] without success. We will monitor him closely in view of his CT scan finding. If there is clinically worsening, we will plan on laparotomy for possible internal hernia/small bowel volvulus. Quality Stroke Does the patient have a stroke diagnosis?: No VTE Prior VTE?: No VTE Risk Level:: Medical - moderate - high VTE Device Contraindication: N/A - Device Ordered VTE Drug Contraindication: N/A - Med Ordered Procedures Date of Service Date of Service: 02/25/24
--- NOTE | 2024-02-15 16:46 | P.CONIM_ITS ---
History of Present Illness Data of Consult Service Date: 02/15/24 Primary Care Provider: Unknown Physician HPI Reason for consult: intestinal obstruction A 58 years old male with PMH COPD, HTN, HLD, DM2, Hypothyroidism and cognitive impairment who presented from residential with severe abdominal pain of sudden onset. The patient is not the best historian but reports that he started having abdominal pain this morning with associated nausea. No chest pain, palpitations, SOB, vomiting, diarrhea or urinary symptoms. The pain is severe, mona-umbilical with no clear aggravating or relieving factors. He is an active smoker. Noticed to have low O2 sat in ED. CXR showed bilateral lower infiltrates. patient denies cough or SOB at this time. In ED CT scan showed an evidence of small bowel obstruction with transitional zone. Hospitalist team will follow along with the surgical team. Review of Systems 2 Review of Systems: No fever, chills or weakness No chest pain, palpitation No shortness of breath or coughing abdominal pain and nausea No urinary symptoms No any rash or wounds PMFSH Medical History Hypothyroidism Diabetes mellitus type 2 in nonobese Hyperlipidemia Personal history of nicotine dependence Rash Loculated pleural effusion (~10/2020) Asbestos-induced pleural plaque Traumatic brain injury Schizophrenia HTN (hypertension) COPD (chronic obstructive pulmonary disease) Asthma Social History Household Members: Other Household Members Other:: residential Housing: Other Housing Other:: jail Do you presently have visiting nurse or other home services: No Alcohol intake: never Patient Tobacco Use Status: Tobacco use Unknown Cigarette Packs Per Day: 1.5 Smoked in Last 30 Days: Yes Use of substances other than those prescribed or required for medical reasons: Unknown Substance Use Type: Marijuana Currently Displaying Signs/Symptoms of Drug Intoxication Withdrawal: No Have you been hit, kicked, punched, or otherwise hurt by someone within the past year? If so, by whom?: No Do you feel safe in your current relationship?: Yes Is there a partner from a previous relationship who is making you feel unsafe now?: No Are you made to feel afraid or neglected: No Advance Directives: No Advance Directives Information Provided: No Do you have thoughts of harming others: None Do you have a plan to hurt others: No Plan Recently lost weight without trying: Unsure Nutrition Risks: No Nutritional Risk service: No Current occupational status: disabled Meds Allergies Allergy/AdvReac Type Severity Reaction Status Date / Time amoxicillin [AMOXICILLIN] Allergy Intermediate SKIN RASH Verified 02/15/24 12:34 egg [EGGS] Allergy Intermediate HIVES, Verified 02/15/24 12:34 VOMITING Penicillins [PENICILLINS] Allergy Intermediate SKIN RASH Verified 02/15/24 12:34 Sulfa (Sulfonamide Allergy Intermediate SKIN RASH Verified 02/15/24 12:34 Antibiotics) [SULFA (SULFONAMIDE ANTIBIOTICS)] trimethoprim [TRIMETHOPRIM] Allergy Intermediate SKIN RASH Verified 02/15/24 12:34 penicillin V Allergy Unknown Unknown Verified 02/15/24 12:34 haloperidol [From Haldol] Allergy Unknown Verified 02/15/24 12:34 Latex, Natural Rubber Allergy Unknown Verified 02/15/24 12:34 methylprednisolone Allergy Unknown Verified 02/15/24 12:34 [From Solu-Medrol] penicillin Allergy Unknown Unknown Uncoded 10/10/20 14:35 sultamicillin Allergy Unknown Unknown Uncoded 10/10/20 14:35 trimethoprim Allergy Unknown Unknown Uncoded 10/10/20 14:35 Active Medications: Current Medications Heparin Sodium (Porcine) (Heparin Sodium,Porcine 5,000 Unit/Ml Vial) 5,000 unit SUBCUT Q12H CAROLINE Sodium Chloride (Ns) 1,000 mls @ 100 mls/hr IVCONT .Q10H CAROLINE Morphine Sulfate (Morphine Sulfate 4 Mg/Ml Cartridge) 2 mg IVPUSH Q3H PRN; Protocol PRN Reason: Pain, Severe (Pain Scale 7-10) Ondansetron HCl (Ondansetron Hcl 4 Mg/2 Ml Vial) 4 mg IVPUSH Q8H PRN PRN Reason: Nausea and Vomiting Pantoprazole Sodium (Pantoprazole Sodium 40 Mg/10 Ml Vial) 20 mg IVPUSH DAILY [facility] Sodium Chloride (0.9 % Sodium Chloride Flush 3 Ml Syringe) 3 ml IVFLUSH QSHIFT [facility] Home Medications ?Medication ?Instructions ?Recorded ?Confirmed ?Last Taken ?Type albuterol sulfate 90 mcg/actuation 1 puff inhalation Q6H PRN 10/10/20 02/15/24 Unknown History aerosol inhaler (Ventolin HFA) Shortness Of Breath atorvastatin 40 mg tablet 40 mg PO BEDTIME 10/10/20 02/15/24 Unknown History clozapine 100 mg tablet 200 mg PO BEDTIME 10/10/20 02/15/24 02/14/24 History clozapine 25 mg tablet 75 mg PO DAILY 10/10/20 02/15/24 02/14/24 History gabapentin 600 mg tablet 1 tab PO TID 10/10/20 02/15/24 Unknown History levothyroxine 150 mcg tablet 1 tab PO DAILY@0600 10/10/20 02/15/24 Unknown History lithium carbonate 450 mg 450 mg PO BID 10/10/20 02/15/24 Unknown History tablet,extended release metformin 1,000 mg tablet 1 tab PO BIDWM 10/10/20 02/15/24 Unknown History tamsulosin 0.4 mg capsule 1 cap PO BEDTIME 10/10/20 02/15/24 Unknown History ibuprofen 600 mg tablet 600 mg PO Q6H PRN Pain 10/20/20 02/15/24 Unknown History loratadine 10 mg tablet 10 mg PO DAILY 10/20/20 02/15/24 Unknown History dextran 70-hypromellose (PF) 0.1 1 drp ophthalmic (eye) DAILY 02/15/24 02/15/24 Unknown History %-0.3 % eye drops in a dropperette (Artificial Tears (PF)) dextran 70-hypromellose (PF) 0.1 1 drp ophthalmic (eye) DAILY PRN 02/15/24 02/15/24 Unknown History %-0.3 % eye drops in a dropperette Dry Eyes (Artificial Tears (PF)) fluphenazine HCl 1 mg tablet 1 mg PO BEDTIME 02/15/24 02/15/24 Unknown History fluticasone fur. 100 mcg-umeclid 1 ea inhalation DAILY 02/15/24 02/15/24 Unknown History 62.5 mcg-vilant 25 mcg inhalat.powder (Trelegy Ellipta) fluticasone propionate 50 1 spray intranasal DAILY 02/15/24 02/15/24 Unknown History mcg/actuation nasal spray,suspension (Flonase Allergy Relief) insulin glargine 100 unit/mL (3 30 unit subcut BEDTIME 02/15/24 02/15/24 Unknown History mL) subcutaneous pen (Basaglar KwikPen U-100 Insulin) Physical Exam 2 Vital Signs and Narrative: Vital Signs: Last Vital Signs Temp 96 F L 02/15/24 14:45 Pulse 79 02/15/24 15:26 Resp 24 H 02/15/24 15:26 BP 114/92 H 02/15/24 15:26 Pulse Ox 96 02/15/24 15:26 O2 Del Method Nasal Cannula 02/15/24 15:26 O2 Flow Rate 1 02/15/24 15:26 BMI result Body Mass Index 27.1 Const: Other: Constitutional : Awake, interactive, not in distress Neck : Normal inspection, Supple Cardiovascular : RRR, no JVP, no lower extremity edema Respiratory : good bilateral air entry, fine basal crackles Gastrointestinal: soft, lax, decreased bowel sounds, mild generalized tenderness Skin : Warm, Dry Neurological : Alert & oriented to self, No focal deficit Results Labs 02/16/24 05:44 02/15/24 13:12 Labs: Laboratory Results - last 24 hr 02/15/24 02/15/24 02/15/24 13:12 13:38 15:14 MCV 83.5 MCH 25.8 L MCHC 30.9 L RDW 16.0 Plt Count 334 MPV 9.2 L Immature Gran % (Auto) 0.9 H Neut % (Auto) 90.2 H Lymph % (Auto) 6.0 L [place] % (Auto) 2.5 Eos % (Auto) 0.1 Baso % (Auto) 0.3 Lymph # (Auto) 1.4 [place] # (Auto) 0.6 Eos # (Auto) 0.0 Baso # (Auto) 0.1 Abs Immat Gran (auto) 0.20 H Absolute Neuts (auto) 21.0 H Absolute Nucleated RBC 0.000 Nucleated RBC % (auto) 0.0 Smear Tech's Comments VERIFIED Anion Gap 12 Estim Creat Clear Calc 101.5 Estimated GFR > 60 Random Glucose 199 H Lactic Acid 1.6 Calcium 9.7 D Magnesium 1.9 Total Bilirubin 0.5 Direct Bilirubin 0.2 AST 10 ALT 6 Alkaline Phosphatase 113 Troponin I High Sens < 2.7 Total Protein 7.8 Albumin 4.0 Lipase 15 Urine Color Yellow Urine Appearance Clear Urine pH 7.5 Ur Specific [place] >= 1.030 H Urine Protein Negative Urine Glucose (UA) Negative Urine Ketones Negative Urine Blood Negative Urine Nitrite Negative Ur Leukocyte Esterase Negative Imaging Radiologist's Impressions: Impressions Chest X-Ray 02/15/24 14:12 IMPRESSION: Diffuse reticular-nodular interstitial opacities with additional patchy nodular opacities in the bilateral lower lobes. Trace left pleural effusion. Abdomen/Pelvis CT 02/15/24 14:44 IMPRESSION: 1. Findings are consistent with high-grade small bowel obstruction with zone of transition in the right hemiabdomen with extensive small bowel mesentery edema and fluid in the right hemiabdomen. There is mild swirling of the mesentery in the right hemiabdomen with mild rightward displacement of the SMA and SMV, with SMV coursing on the right and posterior to the SMA suggesting partial twisting of the small bowel mesentery here. No evidence of intestinal pneumatosis. No evidence of mesenteric or portal venous air. Small ascites. No evidence of free intraperitoneal air. Differential possibility for obstruction may include adhesions, internal hernia, small bowel volvulus etc. 2. Moderate to large stool burden in the transverse colon, left-sided colon and rectosigmoid colon. 3. Mild intrahepatic and extrahepatic biliary ductal dilatation. No radiopaque calculi are seen. Recommend correlation with liver function tests. 4. Calcified pleural plaques at the lung bases. Trace right pleural effusion with pleural thickening. Mild pleural thickening of the left lung base posteriorly. Findings are likely related to prior asbestos exposure. Recommend clinical correlation. Fleischner guidelines were followed. The results were discussed with EDEL Kennedy on 02/15/2024 at 3:47 PM. Assessment and Plan (1) SBO (small bowel obstruction): Status: Acute (2) Hypoxia: Status: Acute (3) Pneumonia: Status: Acute Plan A 58 years old male with PMH COPD, HTN, HLD, DM2, Hypothyroidism and cognitive impairment who presented from residential with severe abdominal pain of sudden onset. Intestinal obstruction Per CT scan NG tube placement Surgery team following Hypoxia CXR could be related to inflammatory vs infectious etiology Received Ceftriaxone in ED pending CT to give Nebulizer Incentive spirometry Monitor for the need of Antibiotics Hx Diabetes SSI for now Mood disorder continue home medications once he can tolerate PO meanwhile Valproic acid Hypothyroidism IV Levothyroxine Thank you for the consult will continue to monitor the patient
--- NOTE | 2024-02-15 17:30 | PC.NURSE ---
md cristina at bedside aware pt will be receiving a main ed room where NGT will be placed, not in [facility]. md cristina states it is ok to proceed w this plan. no n/v. improved abd pain.
[2024-02-15] MEDS: 0.9 % Sodium Chloride 1,000 ML 100 ML IVCONT (17:48)
--- NOTE | 2024-02-15 17:58 | PC.NURSE ---
report to [facility]. pt to have NGT placed in main ed. rafal mcnair. pharmacy stock clerk came to bedside to do med list with pt.
--- NOTE | 2024-02-15 18:14 | PM.EVENT ---
Event Note Date of Service: 02/16/24 Event Note: pt seen on ffup comfortable no signficant abdl pain no vomitting answering questions abd soft, benign keep NPO refusing NGT ffup labs, KUB in AM still unable to get hold of HCP Acacia Mon explained to pt that if his exam and overall clinically worsens, he may need laparotomy pt not mentally competent for decision-making Time Spent With Patient Time: Total time managing care of this patient today ____ minutes.
--- NOTE | 2024-02-15 18:23 | PHA.MEDREC ---
Pharmacy Consult ? Medication Reconciliation Pharmacy has completed the medication reconciliation. Unable to contact assisted or get name of assisted as not detailed in records. Patient poor historian. Utilized claim history to confirm meds. Patient stated that they take 30 units at bedtime for long acting insulin and last took clozaril yesterday (02/14/24).
[2024-02-15 18:59] LABS: Glucose, Whole Blood 240 mg/dL (60-115)
--- NOTE | 2024-02-15 19:15 | PC.NURSE ---
assumed care of pt, pt denies pain at this time, vitals wnl. Explained the order for NG tube and pt refused. I dont want that in my body . Educated on importance however pt still refused. Will message provider
[2024-02-15 19:51] LABS: Procalcitonin 0.03 ng/mL
--- NOTE | 2024-02-15 20:31 | PC.NURSE ---
patient vomited 50 ml of brown liquid on admission to this floor,refused NG tube
[2024-02-15] MEDS: OLANZapine 10 MG VIAL 5 MG IM (20:42)
[2024-02-15 20:46] LABS: Glucose, Whole Blood 242 mg/dL (60-115)
--- NOTE | 2024-02-15 20:53 | PC.NURSE ---
BS 242 Dr. Bhandari notified,only Lantus insulin to be administered for tonight
[2024-02-15] MEDS: Insulin Glargine,Hum.rec.anlog 100 UNIT/ML 10 ML VIAL 10 UNIT SUBCUT (21:00)
[2024-02-15] MEDS: Albuterol/Iprat 2.5/0.5MG 3 ML AMPUL.NEB INHALE (21:18)
[2024-02-15] MEDS: Morphine Sulfate 4 MG/ML CARTRIDGE 2 MG IVPUSH (21:33)
[2024-02-16] VITALS (14 sets, daily range): BP systolic 103–126; BP diastolic 29–62; PULSE 75–98; RESP 16–22; TEMP 36–37.4; O2SAT 90–100
[2024-02-16] MEDS: Morphine Sulfate 4 MG/ML CARTRIDGE 2 MG IVPUSH ×2 (00:24→04:32)
[2024-02-16] MEDS: 0.9 % Sodium Chloride Flush 3 ML SYRINGE IVFLUSH ×3 (00:37→15:15)
[2024-02-16] MEDS: 0.9 % Sodium Chloride 1,000 ML 100 ML IVCONT (04:25)
--- NOTE | 2024-02-16 05:03 | PC.NURSE ---
0000- patient noted to sit up, asked for emesis bag and vomited 50ml brown liquid emesis, no fecal odor detected. patient alert but forgetful, vague with some answers, however, calm and cooperative. IVF infusing to left AC but noted very positional and every time pt started to nap it would sound. New IV inserted to right forearm by coworker and pt very grateful to be able to bend arms and IVF infusing without difficulty. Medicated with morphine at 0030 for 7/10 abdominal pain with good effect. Lower abdomen round, tender, and slightly distended. Conversation made to discuss if he had changed his mind regarding an NGT placement its purpose and importance. Patient continued to verbalize that he did not want tx. Noted in MD report that he refused ngt placement from ED staff and surgeon and repeat labs and a KUB are planned. See reports and results from ED . Will continue to monitor closely.
[2024-02-16 06:12] LABS: Basophils Absolute Auto 0.1 X10*3/uL (0.0-0.2); Basophils Percent Auto 0.2 % (0-2); Hematocrit 52.6 % (42.0-52.0); Hemoglobin 15.6 g/dl (14.0-18.0); Imm Gran Abs Auto 0.55 X10*3/uL (0.00-0.03); Imm Gran Pct Auto 1.5 % (0.0-0.4); Lymphocytes Absolute Auto 1.3 X10*3/uL (1.2-4.9); Lymphocytes Percent Auto 3.7 % (20-40); MANUAL DIFF FLAG SCAN; Mean Corpuscular HGB Conc 29.7 g/dl (31.0-36.0); Mean Corpuscular Volume 87.5 fL (80.0-98.0); Mean Platelet Volume 9.8 fL (9.4-12.4); Monocytes Absolute Auto 1.6 X10*3/uL (0.1-1.2); Monocytes Percent Auto 4.6 % (2-11); Neutrophils Absolute Auto 32.1 x10*3/uL (2.0-8.3); Platelet Count 397 X10*3/uL (160-400); Red Blood Count 6.01 X10*6/uL (4.60-5.80); Red Cell Distribution Width 16.1 % (11.0-16.0); SCAN SMEAR FLAG 1
[2024-02-16 06:35] LABS: White Blood Count 35.7 X10*3/uL (4.8-10.8)
[2024-02-16 07:10] LABS: SLIDE REVIEW VERIFIED
--- NOTE | 2024-02-16 07:25 | PC.NURSE ---
received critical value of wbc 35.7 at 0640 this am and message forwarded to hospitalist on duty who acknowledged receiving message and also reported to day rn in report. patient currently asleep at 0645.
[2024-02-16] MEDS: Levothyroxine Sodium 100 MCG/5 ML VIAL IVPUSH (07:28)
[2024-02-16 07:47] LABS: Glucose, Whole Blood 289 mg/dL (60-115)
[2024-02-16] MEDS: Fluticasone/Umeclidinium/Vilanterol 100/62.5/25 BLST.W.DEV 1 PUFF INHALE (08:30)
[2024-02-16] MEDS: Pantoprazole Sodium 40 MG/10 ML VIAL 20 MG IVPUSH (09:22)
[2024-02-16] MEDS: Insulin Lispro 100 UNIT/ML 3 ML VIAL SUBCUT (09:22)
--- NOTE | 2024-02-16 09:31 | P.PNGS_ITS ---
Subjective Subjective Date of Service: 02/16/24 Interval history: having more abdl pain this morning on and off although at this time says it is not that bad no events reported overnight according to AM nurse - small amounts of emesis overnight had been refusing NGT Physical Exam 2 Vital Signs: Vital Signs: Last Vital Signs Temp 96.8 F 02/16/24 07:31 Pulse 98 02/16/24 07:31 Resp 22 H 02/16/24 08:31 BP 119/56 L 02/16/24 07:31 Pulse Ox 92 02/16/24 07:31 O2 Del Method Room Air 02/16/24 07:31 O2 Flow Rate 1 02/15/24 15:26 BMI result Body Mass Index 27.1 Const: Other: says he is having abdl pain, answers questions Resp: Other: mildly SOB GI: Other: tender diffusely Inspection: Yes distended Palpation (GI): Soft to palpation and Guarding due to palpation present (GI) Objective Data Active Medications Albuterol/Ipratropium (Albuterol/Iprat 2.5/0.5mg 3 Ml Ampul.Neb) 3 ml INHALE RQ6H WHILE AWAKE [facility] Last Admin: 02/16/24 08:30 Dose: Not Given Documented By: MATTHEW Non-Admin Reason: pt refused at this time. will check back Fluticasone/Umeclidinium/Vilanterol (Fluticasone/Umeclidinium/Vilanterol 100/62.5/25 Blst.W.Dev) 1 puff INHALE RDAILY [facility] Last Admin: 02/16/24 08:30 Dose: 1 puff Documented By: MATTHEW Guaifenesin (Guaifenesin La 600 Mg Tab.Er.12h) 600 mg PO BID [facility] Last Admin: 02/16/24 09:23 Dose: Not Given Documented By: NEO Non-Admin Reason: NPO Heparin Sodium (Porcine) (Heparin Sodium,Porcine 5,000 Unit/Ml Vial) 5,000 unit SUBCUT Q12H [facility] Last Admin: 02/16/24 09:23 Dose: Not Given Documented By: NEO Non-Admin Reason: preop Sodium Chloride (Ns) 1,000 mls @ 125 mls/hr IVCONT .Q8H [facility] Last Infusion: 02/16/24 09:20 Dose: 125 mls/hr Documented By: NEO Ceftriaxone Sodium 1 gm/ (Sodium Chloride) 50 mls @ 100 mls/hr IV Q24H [facility] Insulin Glargine (Insulin Glargine,Hum.Rec.Anlog 100 Unit/Ml 10 Ml Vial) 10 unit SUBCUT BEDTIME [facility] Last Admin: 02/15/24 21:00 Dose: 10 unit Documented By: LINDA Insulin Human Lispro (Insulin Lispro 100 Unit/Ml 3 Ml Vial) 0 unit SUBCUT QIDACHS [facility]; Protocol Last Admin: 02/16/24 09:22 Dose: 6 unit Documented By: NEO Levothyroxine Sodium (Levothyroxine Sodium 100 Mcg/5 Ml Vial) 100 mcg IVPUSH DAILY@0600 [facility] Last Admin: 02/16/24 07:28 Dose: 100 mcg Documented By: RHODA Morphine Sulfate (Morphine Sulfate 4 Mg/Ml Cartridge) 2 mg IVPUSH Q3H PRN; Protocol PRN Reason: Pain, Severe (Pain Scale 7-10) Last Admin: 02/16/24 04:32 Dose: 2 mg Documented By: RHODA Olanzapine (Olanzapine 10 Mg Vial) 5 mg IM BEDTIME [facility] Last Admin: 02/15/24 20:42 Dose: 5 mg Documented By: LINDA Ondansetron HCl (Ondansetron Hcl 4 Mg/2 Ml Vial) 4 mg IVPUSH Q8H PRN PRN Reason: Nausea and Vomiting Last Admin: 02/15/24 19:38 Dose: 4 mg Documented By: REGLA Pantoprazole Sodium (Pantoprazole Sodium 40 Mg/10 Ml Vial) 20 mg IVPUSH DAILY [facility] Last Admin: 02/16/24 09:22 Dose: 20 mg Documented By: NEO Sodium Chloride (0.9 % Sodium Chloride Flush 3 Ml Sy[facility]) [facility] Last Admin: 02/16/24 09:23 Dose: 3 ml Documented By: NEO Labs 02/16/24 05:44 02/16/24 14:58 Labs: Laboratory Results - last 24 hr 02/15/24 02/15/24 02/15/24 13:12 13:38 15:14 MCV 83.5 MCH 25.8 L MCHC 30.9 L RDW 16.0 Plt Count 334 MPV 9.2 L Immature Gran % (Auto) 0.9 H Neut % (Auto) 90.2 H Lymph % (Auto) 6.0 L [place] % (Auto) 2.5 Eos % (Auto) 0.1 Baso % (Auto) 0.3 Lymph # (Auto) 1.4 [place] # (Auto) 0.6 Eos # (Auto) 0.0 Baso # (Auto) 0.1 Abs Immat Gran (auto) 0.20 H Absolute Neuts (auto) 21.0 H Absolute Nucleated RBC 0.000 Nucleated RBC % (auto) 0.0 Smear Tech's Comments VERIFIED Anion Gap 12 Estim Creat Clear Calc 101.5 Estimated GFR > 60 POC Glucose Random Glucose 199 H Lactic Acid 1.6 Calcium 9.7 D Magnesium 1.9 Total Bilirubin 0.5 Direct Bilirubin 0.2 AST 10 ALT 6 Alkaline Phosphatase 113 Troponin I High Sens < 2.7 Total Protein 7.8 Albumin 4.0 Lipase 15 Procalcitonin Urine Color Yellow Urine Appearance Clear Urine pH 7.5 Ur Specific [place] >= 1.030 H Urine Protein Negative Urine Glucose (UA) Negative Urine Ketones Negative Urine Blood Negative Urine Nitrite Negative Ur Leukocyte Esterase Negative 02/15/24 02/15/24 02/15/24 18:45 18:46 20:41 MCV MCH MCHC RDW Plt Count MPV Immature Gran % (Auto) Neut % (Auto) Lymph % (Auto) [place] % (Auto) Eos % (Auto) Baso % (Auto) Lymph # (Auto) [place] # (Auto) Eos # (Auto) Baso # (Auto) Abs Immat Gran (auto) Absolute Neuts (auto) Absolute Nucleated RBC Nucleated RBC % (auto) Smear Tech's Comments Anion Gap Estim Creat Clear Calc Estimated GFR POC Glucose 240 H 242 H Random Glucose Lactic Acid Calcium Magnesium Total Bilirubin Direct Bilirubin AST ALT Alkaline Phosphatase Troponin I High Sens Total Protein Albumin Lipase Procalcitonin 0.03 Urine Color Urine Appearance Urine pH Ur Specific [place] Urine Protein Urine Glucose (UA) Urine Ketones Urine Blood Urine Nitrite Ur Leukocyte Esterase 02/16/24 02/16/24 05:44 07:37 MCV 87.5 MCH 26.0 L MCHC 29.7 L RDW 16.1 H Plt Count 397 MPV 9.8 Immature Gran % (Auto) 1.5 H Neut % (Auto) 90.0 H Lymph % (Auto) 3.7 L [place] % (Auto) 4.6 Eos % (Auto) 0.0 Baso % (Auto) 0.2 Lymph # (Auto) 1.3 [place] # (Auto) 1.6 H Eos # (Auto) 0.0 Baso # (Auto) 0.1 Abs Immat Gran (auto) 0.55 H Absolute Neuts (auto) 32.1 H Absolute Nucleated RBC 0.000 Nucleated RBC % (auto) 0.0 Smear Tech's Comments VERIFIED Anion Gap Estim Creat Clear Calc Estimated GFR POC Glucose 289 H Random Glucose Lactic Acid Calcium Magnesium Total Bilirubin Direct Bilirubin AST ALT Alkaline Phosphatase Troponin I High Sens Total Protein Albumin Lipase Procalcitonin Urine Color Urine Appearance Urine pH Ur Specific [place] Urine Protein Urine Glucose (UA) Urine Ketones Urine Blood Urine Nitrite Ur Leukocyte Esterase Procedures Date of Service Date of Service: 02/16/24 Progress Note: A&P Assessment and plan (1) SBO (small bowel obstruction): Status: Acute Assessment and Plan: more abdominal pain this morning on and off WBC higher at 35 chem 7 pending - analyzer dopwn accdg to manager laboratory abd tender in view of pain, high WBC, plan to do ex lap, poss bowel resection, possible stoma may have persistent twisting of small bowel loops, internal hernia with virgin abdomen I explained to him the planned procedure along with risks incl but not limited to bleeding, infections, inj to other organs, respiratory failure blood clots, pneumonia He is not capable of giving consent I have made numerous attempts at getting hold of his HCP Acacia Traore at [phone] without success We could not get in touch with his halfway Procedure is deemed emergent at this time in view of risks of gangrene if SB loop is ischemic [facility] physican Dr Aquino concurs with the planned procedure as deemed emergent and medically necessary Time Spent With Patient Time: Total time managing care of this patient today ____ minutes. Quality Stroke Does the patient have a stroke diagnosis?: No VTE Prior VTE?: No VTE Risk Level:: Medical - moderate - high VTE Device Contraindication: N/A - Device Ordered VTE Drug Contraindication: N/A - Med Ordered
[2024-02-16] MEDS: ondansetron HCL 4 MG/2 ML VIAL IVPUSH (09:36)
--- NOTE | 2024-02-16 09:52 | HO.ANESPROP2 ---
HPI - Anesthesia Eval Consult details Narrative: SBO PMFSH Active Problems Active Problems: All Active Problems SBO (small bowel obstruction) (Acute) Hypoxia (Acute) Pneumonia (Acute) Personal history of nicotine dependence (Acute) Past Medical History Medical History Hypothyroidism Diabetes mellitus type 2 in nonobese Hyperlipidemia Personal history of nicotine dependence Rash Loculated pleural effusion (~10/2020) Asbestos-induced pleural plaque Traumatic brain injury Schizophrenia HTN (hypertension) COPD (chronic obstructive pulmonary disease) Asthma Family History Family history of problems with anesthesia: Unobtainable Surgical History History of Problems with Anesthesia: Unobtainable Social History Social History Household Members: Other Household Members Other:: [facility] Housing: Other Housing Other:: [facility] Do you presently have visiting nurse or other home services: No Alcohol intake: never Comment: counts correct Patient Tobacco Use Status: Tobacco use Unknown Cigarette Packs Per Day: 1.5 Smoked in Last 30 Days: Yes Use of substances other than those prescribed or required for medical reasons: Unknown Substance Use Type: Marijuana Currently Displaying Signs/Symptoms of Drug Intoxication Withdrawal: No Have you been hit, kicked, punched, or otherwise hurt by someone within the past year? If so, by whom?: No Do you feel safe in your current relationship?: Yes Is there a partner from a previous relationship who is making you feel unsafe now?: No Are you made to feel afraid or neglected: No Advance Directives: No Advance Directives Information Provided: No Do you have thoughts of harming others: None Do you have a plan to hurt others: No Plan Recently lost weight without trying: Unsure Nutrition Risks: No Nutritional Risk service: No Current occupational status: disabled Meds Allergies Allergy/AdvReac Type Severity Reaction Status Date / Time amoxicillin [AMOXICILLIN] Allergy Intermediate SKIN RASH Verified 02/15/24 12:34 egg [EGGS] Allergy Intermediate HIVES, Verified 02/15/24 12:34 VOMITING Penicillins [PENICILLINS] Allergy Intermediate SKIN RASH Verified 02/15/24 12:34 Sulfa (Sulfonamide Allergy Intermediate SKIN RASH Verified 02/15/24 12:34 Antibiotics) [SULFA (SULFONAMIDE ANTIBIOTICS)] trimethoprim [TRIMETHOPRIM] Allergy Intermediate SKIN RASH Verified 02/15/24 12:34 penicillin V Allergy Unknown Unknown Verified 02/15/24 12:34 haloperidol [From Haldol] Allergy Unknown Verified 02/15/24 12:34 Latex, Natural Rubber Allergy Unknown Verified 02/15/24 12:34 methylprednisolone Allergy Unknown Verified 02/15/24 12:34 [From Solu-Medrol] penicillin Allergy Unknown Unknown Uncoded 10/10/20 14:35 sultamicillin Allergy Unknown Unknown Uncoded 10/10/20 14:35 trimethoprim Allergy Unknown Unknown Uncoded 10/10/20 14:35 Active Medications: Current Medications Albuterol/Ipratropium (Albuterol/Iprat 2.5/0.5mg 3 Ml Ampul.Neb) 3 ml INHALE RQ6H WHILE AWAKE [facility] Last Admin: 02/16/24 08:30 Dose: Not Given Fluticasone/Umeclidinium/Vilanterol (Fluticasone/Umeclidinium/Vilanterol 100/62.5/25 Blst.W.Dev) 1 puff INHALE RDAILY [facility] Last Admin: 02/16/24 08:30 Dose: 1 puff Guaifenesin (Guaifenesin La 600 Mg Tab.Er.12h) 600 mg PO BID [facility] Last Admin: 02/16/24 09:23 Dose: Not Given Heparin Sodium (Porcine) (Heparin Sodium,Porcine 5,000 Unit/Ml Vial) 5,000 unit SUBCUT Q12H [facility] Last Admin: 02/16/24 09:23 Dose: Not Given Sodium Chloride (Ns) 1,000 mls @ 125 mls/hr IVCONT .Q8H [facility] Last Infusion: 02/16/24 09:20 Dose: 125 mls/hr Ceftriaxone Sodium 1 gm/ (Sodium Chloride) 50 mls @ 100 mls/hr IV Q24H [facility] Insulin Glargine (Insulin Glargine,Hum.Rec.Anlog 100 Unit/Ml 10 Ml Vial) 10 unit SUBCUT BEDTIME [facility] Last Admin: 02/15/24 21:00 Dose: 10 unit Insulin Human Lispro (Insulin Lispro 100 Unit/Ml 3 Ml Vial) 0 unit SUBCUT QIDACHS [facility]; Protocol Last Admin: 02/16/24 09:22 Dose: 6 unit Levothyroxine Sodium (Levothyroxine Sodium 100 Mcg/5 Ml Vial) 100 mcg IVPUSH DAILY@0600 [facility] Last Admin: 02/16/24 07:28 Dose: 100 mcg Morphine Sulfate (Morphine Sulfate 4 Mg/Ml Cartridge) 2 mg IVPUSH Q3H PRN; Protocol PRN Reason: Pain, Severe (Pain Scale 7-10) Last Admin: 02/16/24 04:32 Dose: 2 mg Olanzapine (Olanzapine 10 Mg Vial) 5 mg IM BEDTIME [facility] Last Admin: 02/15/24 20:42 Dose: 5 mg Ondansetron HCl (Ondansetron Hcl 4 Mg/2 Ml Vial) 4 mg IVPUSH Q8H PRN PRN Reason: Nausea and Vomiting Last Admin: 02/16/24 09:36 Dose: 4 mg Pantoprazole Sodium (Pantoprazole Sodium 40 Mg/10 Ml Vial) 20 mg IVPUSH DAILY [facility] Last Admin: 02/16/24 09:22 Dose: 20 mg Sodium Chloride (0.9 % Sodium Chloride Flush 3 Ml Syringe) [facility] Last Admin: 02/16/24 09:23 Dose: 3 ml Home Medications ?Medication ?Instructions ?Recorded ?Confirmed ?Last Taken ?Type albuterol sulfate 90 mcg/actuation 1 puff inhalation Q6H PRN 10/10/20 02/15/24 Unknown History aerosol inhaler (Ventolin HFA) Shortness Of Breath atorvastatin 40 mg tablet 40 mg PO BEDTIME 10/10/20 02/15/24 Unknown History clozapine 100 mg tablet 200 mg PO BEDTIME 10/10/20 02/15/24 02/14/24 History clozapine 25 mg tablet 75 mg PO DAILY 10/10/20 02/15/24 02/14/24 History gabapentin 600 mg tablet 1 tab PO TID 10/10/20 02/15/24 Unknown History levothyroxine 150 mcg tablet 1 tab PO DAILY@0600 10/10/20 02/15/24 Unknown History lithium carbonate 450 mg 450 mg PO BID 10/10/20 02/15/24 Unknown History tablet,extended release metformin 1,000 mg tablet 1 tab PO BIDWM 10/10/20 02/15/24 Unknown History tamsulosin 0.4 mg capsule 1 cap PO BEDTIME 10/10/20 02/15/24 Unknown History ibuprofen 600 mg tablet 600 mg PO Q6H PRN Pain 10/20/20 02/15/24 Unknown History loratadine 10 mg tablet 10 mg PO DAILY 10/20/20 02/15/24 Unknown History dextran 70-hypromellose (PF) 0.1 1 drp ophthalmic (eye) DAILY 02/15/24 02/15/24 Unknown History %-0.3 % eye drops in a dropperette (Artificial Tears (PF)) dextran 70-hypromellose (PF) 0.1 1 drp ophthalmic (eye) DAILY PRN 02/15/24 02/15/24 Unknown History %-0.3 % eye drops in a dropperette Dry Eyes (Artificial Tears (PF)) fluphenazine HCl 1 mg tablet 1 mg PO BEDTIME 02/15/24 02/15/24 Unknown History fluticasone fur. 100 mcg-umeclid 1 ea inhalation DAILY 02/15/24 02/15/24 Unknown History 62.5 mcg-vilant 25 mcg inhalat.powder (Trelegy Ellipta) fluticasone propionate 50 1 spray intranasal DAILY 02/15/24 02/15/24 Unknown History mcg/actuation nasal spray,suspension (Flonase Allergy Relief) insulin glargine 100 unit/mL (3 30 unit subcut BEDTIME 02/15/24 02/15/24 Unknown History mL) subcutaneous pen (Basaglar KwikPen U-100 Insulin) Exam Height,Weight and Vital Signs: Height 6 ft Weight 90.718 kg Last Vital Signs Temp 96.8 F 02/16/24 07:31 Pulse 98 02/16/24 07:31 Resp 22 H 02/16/24 08:31 BP 119/56 L 02/16/24 07:31 Pulse Ox 92 02/16/24 07:31 O2 Del Method Room Air 02/16/24 07:31 O2 Flow Rate 1 02/15/24 15:26 Pertinent Lab Results Pertinent Lab Results: Laboratory Tests 02/15/24 02/15/24 02/15/24 13:12 13:38 15:14 WBC 23.2 H RBC 5.51 Hgb 14.2 Hct 46.0 MCV 83.5 MCH 25.8 L MCHC 30.9 L RDW 16.0 Plt Count 334 MPV 9.2 L Immature Gran % (Auto) 0.9 H Neut % (Auto) 90.2 H Lymph % (Auto) 6.0 L [place] % (Auto) 2.5 Eos % (Auto) 0.1 Baso % (Auto) 0.3 Lymph # (Auto) 1.4 [place] # (Auto) 0.6 Eos # (Auto) 0.0 Baso # (Auto) 0.1 Abs Immat Gran (auto) 0.20 H Absolute Neuts (auto) 21.0 H Absolute Nucleated RBC 0.000 Nucleated RBC % (auto) 0.0 Smear Tech's Comments VERIFIED Sodium 136 Potassium 4.0 Chloride 98 Carbon Dioxide 30 H Anion Gap 12 BUN 8 L Creatinine 0.87 Estim Creat Clear Calc 101.5 Estimated GFR > 60 POC Glucose Random Glucose 199 H Lactic Acid 1.6 Calcium 9.7 D Magnesium 1.9 Total Bilirubin 0.5 Direct Bilirubin 0.2 AST 10 ALT 6 Alkaline Phosphatase 113 Troponin I High Sens < 2.7 Total Protein 7.8 Albumin 4.0 Lipase 15 Procalcitonin Urine Color Yellow Urine Appearance Clear Urine pH 7.5 Ur Specific [place] >= 1.030 H Urine Protein Negative Urine Glucose (UA) Negative Urine Ketones Negative Urine Blood Negative Urine Nitrite Negative Ur Leukocyte Esterase Negative 02/15/24 02/15/24 02/15/24 18:45 18:46 20:41 WBC RBC Hgb Hct MCV MCH MCHC RDW Plt Count MPV Immature Gran % (Auto) Neut % (Auto) Lymph % (Auto) [place] % (Auto) Eos % (Auto) Baso % (Auto) Lymph # (Auto) [place] # (Auto) Eos # (Auto) Baso # (Auto) Abs Immat Gran (auto) Absolute Neuts (auto) Absolute Nucleated RBC Nucleated RBC % (auto) Smear Tech's Comments Sodium Potassium Chloride Carbon Dioxide Anion Gap BUN Creatinine Estim Creat Clear Calc Estimated GFR POC Glucose 240 H 242 H Random Glucose Lactic Acid Calcium Magnesium Total Bilirubin Direct Bilirubin AST ALT Alkaline Phosphatase Troponin I High Sens Total Protein Albumin Lipase Procalcitonin 0.03 Urine Color Urine Appearance Urine pH Ur Specific [place] Urine Protein Urine Glucose (UA) Urine Ketones Urine Blood Urine Nitrite Ur Leukocyte Esterase 02/16/24 02/16/24 05:44 07:37 WBC 35.7 H* RBC 6.01 H Hgb 15.6 Hct 52.6 H MCV 87.5 MCH 26.0 L MCHC 29.7 L RDW 16.1 H Plt Count 397 MPV 9.8 Immature Gran % (Auto) 1.5 H Neut % (Auto) 90.0 H Lymph % (Auto) 3.7 L [place] % (Auto) 4.6 Eos % (Auto) 0.0 Baso % (Auto) 0.2 Lymph # (Auto) 1.3 [place] # (Auto) 1.6 H Eos # (Auto) 0.0 Baso # (Auto) 0.1 Abs Immat Gran (auto) 0.55 H Absolute Neuts (auto) 32.1 H Absolute Nucleated RBC 0.000 Nucleated RBC % (auto) 0.0 Smear Tech's Comments VERIFIED Sodium Potassium Chloride Carbon Dioxide Anion Gap BUN Creatinine Estim Creat Clear Calc Estimated GFR POC Glucose 289 H Random Glucose Lactic Acid Calcium Magnesium Total Bilirubin Direct Bilirubin AST ALT Alkaline Phosphatase Troponin I High Sens Total Protein Albumin Lipase Procalcitonin Urine Color Urine Appearance Urine pH Ur Specific [place] Urine Protein Urine Glucose (UA) Urine Ketones Urine Blood Urine Nitrite Ur Leukocyte Esterase Airway Mallampati Class: Patient Non-Cooperative TM Dist: >3cm Neck ROM: Full Loose/Missing/Broken Teeth: No Heart: RRR Lungs: Diminished breathing sounds bilaterally Assessment and Plan Assessment Anesthesia Assessment: Anesthesia Plan Discussed Final Anesthetic Review Family History of Problems with Anesthesia: Unobtainable History of Problems with Anesthesia: Unobtainable NPO: No ASA Class: III and Emergency Final Preanesthetic Review: No Changes in Pt Med Stat, Meds/Allgs Chart Reviewed, Consent Obtained/Reviewed (unable to consent, proxy not reachable, procedure deemed emergency) and Anes Risks/Benef Reviewed Patient Risk: High Procedure Risk: High Anesthetic Plan Anesthetic Plan: GA Disposition: Standard PACU (possible ICU)
--- NOTE | 2024-02-16 11:25 | HO.PM.IMPN ---
Subjective Subjective Date of Service: 02/16/24 Interval History: Seen and evaluated this morning abdomen more distended complains of pain and nausea not on O2 , sats 92% Review of Systems Review of Systems: Yes all other systems are reviewed and are negative Physical Exam Vital Signs: Vital Signs: Last Vital Signs Temp 96.8 F 02/16/24 07:31 Pulse 98 02/16/24 07:31 Resp 22 H 02/16/24 08:31 BP 119/56 L 02/16/24 07:31 Pulse Ox 92 02/16/24 07:31 O2 Del Method Room Air 02/16/24 07:31 O2 Flow Rate 1 02/15/24 15:26 BMI result Body Mass Index 27.1 Const: Other: Constitutional : Awake, in mild distress Neck : Normal inspection, Supple Cardiovascular : RRR, no JVP, no lower extremity edema Respiratory : good bilateral air entry, fine basal crackles Gastrointestinal: soft, lax, decreased bowel sounds, generalized tenderness , distended abdomen Skin : Warm, Dry Neurological : Alert & oriented to self, No focal deficit Objective Data Active Medications Albuterol/Ipratropium (Albuterol/Iprat 2.5/0.5mg 3 Ml Ampul.Neb) 3 ml INHALE RQ6H WHILE AWAKE COUNT INCLUDES [facility] Last Admin: 02/16/24 08:30 Dose: Not Given Documented By: MATTHEW Non-Admin Reason: pt refused at this time. will check back Fentanyl (Fentanyl Citrate/Pf 100 Mcg/2 Ml Vial) 50 mcg IVPUSH Q5M PRN; Protocol PRN Reason: Pain, Severe (Pain Scale 7-10) Stop: 02/16/24 15:56 Fluticasone/Umeclidinium/Vilanterol (Fluticasone/Umeclidinium/Vilanterol 100/62.5/25 Blst.W.Dev) 1 puff INHALE RDAILY COUNT INCLUDES [facility] Last Admin: 02/16/24 08:30 Dose: 1 puff Documented By: MATTHEW Guaifenesin (Guaifenesin La 600 Mg Tab.Er.12h) 600 mg PO BID COUNT INCLUDES [facility] Last Admin: 02/16/24 09:23 Dose: Not Given Documented By: NEO Non-Admin Reason: NPO Heparin Sodium (Porcine) (Heparin Sodium,Porcine 5,000 Unit/Ml Vial) 5,000 unit SUBCUT Q12H COUNT INCLUDES [facility] Last Admin: 02/16/24 09:23 Dose: Not Given Documented By: NEO Non-Admin Reason: preop Hydromorphone HCl (Hydromorphone Hcl 0.5 Mg/0.5 Ml Syringe) 0.5 mg IVPUSH Q5M PRN; Protocol PRN Reason: Pain, Severe (Pain Scale 7-10) Stop: 02/16/24 15:56 Sodium Chloride (Ns) 1,000 mls @ 125 mls/hr IVCONT .Q8H COUNT INCLUDES [facility] Last Infusion: 02/16/24 09:20 Dose: 125 mls/hr Documented By: NEO Ceftriaxone Sodium 1 gm/ (Sodium Chloride) 50 mls @ 100 mls/hr IV Q24H COUNT INCLUDES [facility] Insulin Glargine (Insulin Glargine,Hum.Rec.Anlog 100 Unit/Ml 10 Ml Vial) 10 unit SUBCUT BEDTIME COUNT INCLUDES [facility] Last Admin: 02/15/24 21:00 Dose: 10 unit Documented By: LINDA Insulin Human Lispro (Insulin Lispro 100 Unit/Ml 3 Ml Vial) 0 unit SUBCUT QIDACHS COUNT INCLUDES [facility]; Protocol Last Admin: 02/16/24 09:22 Dose: 6 unit Documented By: NEO Levothyroxine Sodium (Levothyroxine Sodium 100 Mcg/5 Ml Vial) 100 mcg IVPUSH DAILY@0600 COUNT INCLUDES [facility] Last Admin: 02/16/24 07:28 Dose: 100 mcg Documented By: RHODA Morphine Sulfate (Morphine Sulfate 4 Mg/Ml Cartridge) 2 mg IVPUSH Q3H PRN; Protocol PRN Reason: Pain, Severe (Pain Scale 7-10) Last Admin: 02/16/24 04:32 Dose: 2 mg Documented By: RHODA Olanzapine (Olanzapine 10 Mg Vial) 5 mg IM BEDTIME COUNT INCLUDES [facility] Last Admin: 02/15/24 20:42 Dose: 5 mg Documented By: LINDA Ondansetron HCl (Ondansetron Hcl 4 Mg/2 Ml Vial) 4 mg IVPUSH Q8H PRN PRN Reason: Nausea and Vomiting Last Admin: 02/16/24 09:36 Dose: 4 mg Documented By: NEO Ondansetron HCl (Ondansetron Hcl 4 Mg/2 Ml Vial) 4 mg IVPUSH ONCE PRN PRN Reason: Nausea and Vomiting Stop: 02/16/24 15:56 Pantoprazole Sodium (Pantoprazole Sodium 40 Mg/10 Ml Vial) 20 mg IVPUSH DAILY COUNT INCLUDES [facility] Last Admin: 02/16/24 09:22 Dose: 20 mg Documented By: NEO Sodium Chloride (0.9 % Sodium Chloride Flush 3 Ml Syringe) 3 ml IVFLUSH QSHIFT COUNT INCLUDES [facility] Last Admin: 02/16/24 09:23 Dose: 3 ml Documented By: NEO Labs 02/16/24 05:44 02/15/24 13:12 Labs: Laboratory Results - last 24 hr 02/15/24 02/15/24 02/15/24 13:12 13:38 15:14 MCV 83.5 MCH 25.8 L MCHC 30.9 L RDW 16.0 Plt Count 334 MPV 9.2 L Immature Gran % (Auto) 0.9 H Neut % (Auto) 90.2 H Lymph % (Auto) 6.0 L Falls % (Auto) 2.5 Eos % (Auto) 0.1 Baso % (Auto) 0.3 Lymph # (Auto) 1.4 Falls # (Auto) 0.6 Eos # (Auto) 0.0 Baso # (Auto) 0.1 Abs Immat Gran (auto) 0.20 H Absolute Neuts (auto) 21.0 H Absolute Nucleated RBC 0.000 Nucleated RBC % (auto) 0.0 Smear Tech's Comments VERIFIED Anion Gap 12 Estim Creat Clear Calc 101.5 Estimated GFR > 60 POC Glucose Random Glucose 199 H Lactic Acid 1.6 Calcium 9.7 D Magnesium 1.9 Total Bilirubin 0.5 Direct Bilirubin 0.2 AST 10 ALT 6 Alkaline Phosphatase 113 Troponin I High Sens < 2.7 Total Protein 7.8 Albumin 4.0 Lipase 15 Procalcitonin Urine Color Yellow Urine Appearance Clear Urine pH 7.5 Ur Specific [place] >= 1.030 H Urine Protein Negative Urine Glucose (UA) Negative Urine Ketones Negative Urine Blood Negative Urine Nitrite Negative Ur Leukocyte Esterase Negative 02/15/24 02/15/24 02/15/24 18:45 18:46 20:41 MCV MCH MCHC RDW Plt Count MPV Immature Gran % (Auto) Neut % (Auto) Lymph % (Auto) Falls % (Auto) Eos % (Auto) Baso % (Auto) Lymph # (Auto) Falls # (Auto) Eos # (Auto) Baso # (Auto) Abs Immat Gran (auto) Absolute Neuts (auto) Absolute Nucleated RBC Nucleated RBC % (auto) Smear Tech's Comments Anion Gap Estim Creat Clear Calc Estimated GFR POC Glucose 240 H 242 H Random Glucose Lactic Acid Calcium Magnesium Total Bilirubin Direct Bilirubin AST ALT Alkaline Phosphatase Troponin I High Sens Total Protein Albumin Lipase Procalcitonin 0.03 Urine Color Urine Appearance Urine pH Ur Specific [place] Urine Protein Urine Glucose (UA) Urine Ketones Urine Blood Urine Nitrite Ur Leukocyte Esterase 02/16/24 02/16/24 05:44 07:37 MCV 87.5 MCH 26.0 L MCHC 29.7 L RDW 16.1 H Plt Count 397 MPV 9.8 Immature Gran % (Auto) 1.5 H Neut % (Auto) 90.0 H Lymph % (Auto) 3.7 L Falls % (Auto) 4.6 Eos % (Auto) 0.0 Baso % (Auto) 0.2 Lymph # (Auto) 1.3 Falls # (Auto) 1.6 H Eos # (Auto) 0.0 Baso # (Auto) 0.1 Abs Immat Gran (auto) 0.55 H Absolute Neuts (auto) 32.1 H Absolute Nucleated RBC 0.000 Nucleated RBC % (auto) 0.0 Smear Tech's Comments VERIFIED Anion Gap Estim Creat Clear Calc Estimated GFR POC Glucose 289 H Random Glucose Lactic Acid Calcium Magnesium Total Bilirubin Direct Bilirubin AST ALT Alkaline Phosphatase Troponin I High Sens Total Protein Albumin Lipase Procalcitonin Urine Color Urine Appearance Urine pH Ur Specific [place] Urine Protein Urine Glucose (UA) Urine Ketones Urine Blood Urine Nitrite Ur Leukocyte Esterase Assessment and Plan (1) SBO (small bowel obstruction): Status: Acute (2) Hypoxia: Status: Acute Plan A 58 years old male with PMH COPD, HTN, HLD, DM2, Hypothyroidism and cognitive impairment who presented from long-term with severe abdominal pain of sudden onset. Intestinal obstruction Per CT scan WBCs to 35K seems worsening with increase distention Surgery team wants to take him to OR urgently Guardian not responding to calls from dr Thomas. For medical necessity will sign 2 physician clearance to take to the patient to OR for life saving surgical intervention Hypoxia CXR could be related to inflammatory Received Ceftriaxone in ED CT chest showing multiple non-specific findings to give Nebulizer Empirical Ceftriaxone Incentive spirometry , chest physiotherapy Monitor for the need of Antibiotics Hx Diabetes SSI for now Mood disorder continue home medications once he can tolerate PO meanwhile Valproic acid Hypothyroidism IV Levothyroxine for now Thank you for the consult will continue to monitor the patient Quality Stroke Does the patient have a stroke diagnosis?: No VTE Prior VTE?: No VTE Risk Level:: Medical - moderate - high VTE Device Contraindication: N/A - Device Ordered VTE Drug Contraindication: N/A - Med Ordered
--- NOTE | 2024-02-16 12:55 | W.PM.OPN ---
Operative Note Operative Note Date of Service: 02/16/24 Narrative: Preop diagnosis: Small-bowel obstruction, with worsening exam Postop diagnosis: Long, volvulized small bowel, grossly ischemic, with a band at the proximal segment, well demarcated ischemia; about 220 cm resected Procedure: Laparotomy, resection of about 220 cm small-bowel, with reanastomosis Surgeon: Paul Thomas MD print shop assistant: Yulia Car MD Findings: Long segment of small bowel, ischemic and hemorrhagic, about 220 cm, twisted around mesentery with a small fibrotic band, well demarcated margins of ischemic changes. Accompanying mesentery was very edematous and hemorrhagic as well; no viscus perforation seen. The patient is a 58-year-old male admitted last night because of small-bowel obstruction, with edema of the small bowel and mesentery, free fluid. He had an initially very benign exam after an episode of abdominal pain. Refusing NG tube. This morning, he appeared to be more distended and says that he had episodes of significant pain overnight. I therefore told him that it would be best to proceed with laparotomy. He did have cognitive deficiencies from his traumatic brain injury and schizophrenia so it was unlikely that he fully understood the plan. We could not get hold of his healthcare proxy as well as the prison despite multiple attempts for several hours. Emergent need any medical assistance density for the procedure was augmented by 2 physicians He was brought to the operating room. He was placed supine under general anesthesia via endotracheal tube. The abdomen was prepped and draped in the usual sterile fashion. A Anguiano catheter was inserted. An NG tube was inserted as well. A surgical time-out was done. The patient received cefazolin 2 g IV preoperatively I made a long midline laparotomy incision using blade 10. This carried down with electrocautery through the full-thickness of the skin subcutaneous fat. The fascia was incised. The peritoneum was entered. Large amounts of hemorrhagic ascites was evacuated. A total of about 2 L of this was suctioned out. The Bookwalter retractor was positioned There was note of markedly distended, ischemic small bowel loops. I had to carefully trace the small bowel from what appeared to be healthy and viable proximal small bowel. There appeared to be a twist in this long segment of small bowel loop at the mesentery. I was eventually able to find the viable segment which appeared to be about 1-1/2 feet from the terminal ileum. At the proximal level of the mid small bowel, I was able to see of short thick band that was tethering mesentery and appeared to be preventing the twisted long segment to untwist. This short band was lysed bluntly. I was therefore able to untwist this long, ischemic segment of small bowel and traced this all the way from proximal to distal. The ischemic changes on both the proximal distal were abrupt and well demarcated. The proximal bowel loops were also markedly dilated. There was note of marked edema of the attached mesentery along with hemorrhagic ischemia. I created a mesenteric window about 4 cm proximal to the demarcated area and shows healthy looking small bowel. I applied the IAN 60 mm stapler to transect this. I proceeded to trace this long segment until I saw the well-demarcated distal segment. I created a mesenteric window on healthy looking small bowel and this was transected as well with a IAN 60 mm stapler I proceeded to resect this long segment of ischemic and hemorrhagic, dilated small bowel by dividing the attached mesentery. The mesentery was also very edematous. I completed resection and this measured to be about 220 cm. There were no other ischemic segments. There were no adhesions in the rest of the abdomen I proceeded to do the [id number] anastomosis. I aligned the 2 transected segments. I opened up the apex of each staple line to enter the lumen. Positioned the IAN stapler at the anti mesenteric border of each lumen. The stapler was fired to create our [id number] anastomosis. I completed the anastomosis by closing the enterotomy with TA 60 mm stapler. I examined the staple line from both the lumen and outside and this appeared to be intact. I applied seromuscular sutures to the crotch of the staple line to release any tension. The staple lines were examined carefully and this were noted to be intact, and viable. The lumen was palpated and appeared to be patent. I closed the large mesenteric defect from the resection line by applying continuous running Polysorb 3-0 stitch I positioned the bowel loops back into the peritoneal cavity. We examined the rest of the peritoneal cavity and there was no other pathology seen. There was note of good hemostasis. We irrigated copiously and suctioned down the irrigant fluid One lap pad had been placed area for retraction was removed. All the retractors were removed . I palpated the stomach and the NG tube was felt to be in good position We closed the fascia with a running Maxon 1 stitch. Skin closure was achieved with skin kelli. The incision was infiltrated with Marcaine 0.5% for postop analgesia The anesthesiologist also applied a tap block at the end The patient tolerated procedure well. There were no immediate complications. Initial and final counts of sponges and instruments were correct. Estimated blood loss was about 50 cc. The patient was extubated without difficulty and transferred to recovery room with stable vital signs.
[2024-02-16 13:04] LABS: Sodium 134 mmol/L (135-145)
[2024-02-16 13:05] LABS: Chloride 105 mmol/L (96-108); Potassium 5.9 mmol/L (3.3-5.1)
[2024-02-16 13:06] LABS: Blood Urea Nitrogen 24 mg/dL (9-16); Carbon Dioxide 16 mmol/L (22-29); Creatinine Clr Calc Pharmacy 39.8; Estimated Glomerular Filt Rate 31
[2024-02-16 13:07] LABS: Anion Gap 19 (12-20); Bilirubin Total 0.3 mg/dL (0.0-1.0); Glucose Random 300 mg/dL (60-115)
[2024-02-16 13:08] LABS: Alanine Aminotransferase 5 U/L (0-40); Albumin Level 2.5 g/dL (3.5-5.0); Alkaline Phosphatase 82 U/L (39-117); Aspartate Amino Transferase 6 U/L (5-37); Total Protein 5.2 g/dL (6.5-8.0)
[2024-02-16] MEDS: cefTRIAXone sodium 1 GM in 0.9 % Sodium Chloride 50 ML IV (13:47)
[2024-02-16] MEDS: Acetaminophen 1,000 MG/100 ML PIGGYBACK 400 MG IV ×2 (15:15→20:36)
[2024-02-16] MEDS: 0.9 % Sodium Chloride 1,000 ML 125 ML IVCONT (15:15)
[2024-02-16 15:44] LABS: Anion Gap 13 (12-20); Blood Urea Nitrogen 26 mg/dL (9-16); Calcium 7.7 mg/dL (8.4-10.2); Carbon Dioxide 23 mmol/L (22-29); Chloride 105 mmol/L (96-108); Creatinine Clr Calc Pharmacy 44.6; Estimated Glomerular Filt Rate 35; Glucose Random 234 mg/dL (60-115); Potassium 5.7 mmol/L (3.3-5.1); Sodium 135 mmol/L (135-145)
[2024-02-16 16:03] LABS: Glucose, Whole Blood 196 mg/dL (60-115)
--- NOTE | 2024-02-16 16:12 | PC.NURSE ---
BS 196,outstanding order from previous shift for 5 units of IV regular insulin,Dr. Aquino notified and asked to clarify
--- NOTE | 2024-02-16 16:24 | P.EN_ITS ---
Event Note Date of Service: 02/17/24 Event Note: seen postop awake, drowsy but answering questions says he is ok abd soft, dressings dry good UO pain mgt K was high earlier this morning, chem analyzer was down for a long time - check BMP now Still unable to get hold of the healthcare proxy or assisted dw Hospitalist Time Spent With Patient Time: Total time managing care of this patient today ____ minutes.
[2024-02-16] MEDS: Dextrose 10 % 250 ML 750 ML IV (16:26)
[2024-02-16] MEDS: Insulin Regular, Human 100 UNIT/ML 3 ML VIAL IVPUSH (16:59)
[2024-02-16 19:48] LABS: Glucose, Whole Blood 155 mg/dL (60-115)
[2024-02-16] MEDS: Albuterol/Iprat 2.5/0.5MG 3 ML AMPUL.NEB INHALE (19:49)
[2024-02-16] MEDS: OLANZapine 10 MG VIAL 5 MG IM (20:35)
[2024-02-16] MEDS: Heparin Sodium,Porcine 5,000 UNIT/ML VIAL 5000 UNIT SUBCUT (20:35)
[2024-02-16] MEDS: Insulin Glargine,Hum.rec.anlog 100 UNIT/ML 10 ML VIAL 10 UNIT SUBCUT (20:46)
--- NOTE | 2024-02-16 20:54 | PC.NURSE ---
BS 155 this evening,Dr. Bhandari notified ,was instructed to administer only 5 units of Lantus insulin tonight
[2024-02-16] MEDS: Morphine Sulfate 4 MG/ML CARTRIDGE 3 MG IVPUSH (23:31)
[2024-02-17] VITALS (9 sets, daily range): BP systolic 109–135; BP diastolic 53–63; PULSE 64–89; RESP 12–20; TEMP 36.4–36.8; O2SAT 93–96
[2024-02-17] MEDS: Acetaminophen 1,000 MG/100 ML PIGGYBACK 400 MG IV ×2 (01:54→09:14)
--- NOTE | 2024-02-17 01:58 | PC.NURSE ---
pt 2am bp was 111/52 with a temp of 99.7, BP trend shows that it is within his normal range. Is being treated with IV Acetaminophen, will continue to monitor, if temp goes higher I will notify
[2024-02-17 06:39] LABS: Hematocrit 32.4 % (42.0-52.0); Mean Corpuscular HGB Conc 30.9 g/dl (31.0-36.0); Mean Corpuscular Hemoglobin 25.9 pg (27.0-33.0); Mean Corpuscular Volume 83.9 fL (80.0-98.0); Mean Platelet Volume 9.8 fL (9.4-12.4); Platelet Count 290 X10*3/uL (160-400); Red Blood Count 3.86 X10*6/uL (4.60-5.80); White Blood Count 25.1 X10*3/uL (4.8-10.8)
[2024-02-17 07:00] LABS: Blood Urea Nitrogen 31 mg/dL (9-16); Calcium 7.7 mg/dL (8.4-10.2); Creatinine Clr Calc Pharmacy 82.5; Estimated Glomerular Filt Rate > 60; Glucose Random 189 mg/dL (60-115)
[2024-02-17 07:24] LABS: Anion Gap 10 (12-20); Carbon Dioxide 25 mmol/L (22-29); Chloride 107 mmol/L (96-108); Potassium 4.2 mmol/L (3.3-5.1); Sodium 138 mmol/L (135-145)
[2024-02-17 07:42] LABS: Glucose, Whole Blood 160 mg/dL (60-115)
--- NOTE | 2024-02-17 08:03 | P.PNGS_ITS ---
Subjective Subjective Date of Service: 02/18/24 Interval history: No events reported NG tube output about 200 cc overnight Denies flatus but patient is not really reliable with details Vital signs had been stable overnight Physical Exam 2 Vital Signs: Vital Signs: Last Vital Signs Temp 98.2 F 02/17/24 07:47 Pulse 64 02/17/24 07:47 Resp 12 02/17/24 07:47 BP 109/53 L 02/17/24 07:47 Pulse Ox 96 02/17/24 07:47 O2 Del Method Nasal Cannula 02/17/24 07:47 O2 Flow Rate 2 02/17/24 07:47 BMI result Body Mass Index 27.1 Const: Other: Awake, answers simple questions Resp: Other: Mildly short of breath Cardio: Rate: regular rate GI: Other: Soft, mildly distended, no guarding rebound, dressings dry, NG tube in place Objective Data Active Medications Albuterol/Ipratropium (Albuterol/Iprat 2.5/0.5mg 3 Ml Ampul.Neb) 3 ml INHALE RQ6H WHILE AWAKE [facility] Last Admin: 02/16/24 19:49 Dose: 3 ml Documented By: CHINYERE Fluticasone/Umeclidinium/Vilanterol (Fluticasone/Umeclidinium/Vilanterol 100/62.5/25 Blst.W.Dev) 1 puff INHALE RDAILY [facility] Last Admin: 02/16/24 08:30 Dose: 1 puff Documented By: MATTHEW Guaifenesin (Guaifenesin La 600 Mg Tab.Er.12h) 600 mg PO BID [facility] Last Admin: 02/16/24 20:38 Dose: Not Given Documented By: LINDA Non-Admin Reason: Patient Refused Heparin Sodium (Porcine) (Heparin Sodium,Porcine 5,000 Unit/Ml Vial) 5,000 unit SUBCUT Q12H [facility] Last Admin: 02/16/24 20:35 Dose: 5,000 unit Documented By: LINDA Sodium Chloride (Ns) 1,000 mls @ 125 mls/hr IVCONT .Q8H [facility] Last Infusion: 02/16/24 23:25 Dose: Infused Documented By: ANGELA Ceftriaxone Sodium 1 gm/ (Sodium Chloride) 50 mls @ 100 mls/hr IV Q24H [facility] Last Infusion: 02/16/24 15:20 Dose: Infused Documented By: NEO Acetaminophen (Ofirmev) 1,000 mg in 100 mls @ 400 mls/hr IV Q6H [facility] Stop: 02/17/24 08:04 Last Infusion: 02/17/24 02:14 Dose: Infused Documented By: ANGELA Dextrose (D10) 250 mls @ 750 mls/hr IV Q15M PRN PRN Reason: per Hypoglycemia Standing Ord. Last Infusion: 02/16/24 16:55 Dose: Infused Documented By: LINDA Insulin Glargine (Insulin Glargine,Hum.Rec.Anlog 100 Unit/Ml 10 Ml Vial) 10 unit SUBCUT BEDTIME [facility] Last Admin: 02/16/24 20:46 Dose: 5 unit Documented By: LINDA Comments: per , Insulin Human Lispro (Insulin Lispro 100 Unit/Ml 3 Ml Vial) 0 unit SUBCUT QIDACHS [facility]; Protocol Last Admin: 02/17/24 07:53 Dose: Not Given Documented By: MILAD Non-Admin Reason: NPO Levothyroxine Sodium (Levothyroxine Sodium 100 Mcg/5 Ml Vial) 100 mcg IVPUSH DAILY@0600 [facility] Last Admin: 02/17/24 04:40 Dose: Not Given Documented By: ANGELA Non-Admin Reason: NPO Morphine Sulfate (Morphine Sulfate 4 Mg/Ml Cartridge) 3 mg IVPUSH Q3H PRN; Protocol PRN Reason: Pain, Severe (Pain Scale 7-10) Last Admin: 02/16/24 23:31 Dose: 3 mg Documented By: ANGELA Olanzapine (Olanzapine 10 Mg Vial) 5 mg IM BEDTIME [facility] Last Admin: 02/16/24 20:35 Dose: 5 mg Documented By: LINDA Ondansetron HCl (Ondansetron Hcl 4 Mg/2 Ml Vial) 4 mg IVPUSH Q8H PRN PRN Reason: Nausea and Vomiting Last Admin: 02/16/24 09:36 Dose: 4 mg Documented By: NEO Pantoprazole Sodium (Pantoprazole Sodium 40 Mg/10 Ml Vial) 20 mg IVPUSH DAILY [facility] Last Admin: 02/16/24 09:22 Dose: 20 mg Documented By: NEO Sodium Chloride (0.9 % Sodium Chloride Flush 3 Ml Syringe) 3 ml IVFLUSH QSHIFT [facility] Last Admin: 02/17/24 00:28 Dose: Not Given Documented By: ANGELA Non-Admin Reason: IV Running Labs 02/18/24 05:52 02/18/24 05:52 Labs: Laboratory Results - last 24 hr 02/16/24 02/16/24 02/16/24 12:12 14:58 15:55 MCV MCH MCHC RDW Plt Count MPV Absolute Nucleated RBC Nucleated RBC % (auto) Anion Gap 19 13 Estim Creat Clear Calc 39.8 44.6 Estimated GFR 31 35 POC Glucose 196 H Random Glucose 300 H D 234 H Calcium 8.0 L D 7.7 L Total Bilirubin 0.3 AST 6 ALT 5 Alkaline Phosphatase 82 Total Protein 5.2 L Albumin 2.5 L D Blood Type A Negative Antibody Screen NEGATIVE 02/16/24 02/17/24 02/17/24 19:25 05:58 07:38 MCV 83.9 MCH 25.9 L MCHC 30.9 L RDW 16.0 Plt Count 290 D MPV 9.8 Absolute Nucleated RBC 0.000 Nucleated RBC % (auto) 0.0 Anion Gap 10 L Estim Creat Clear Calc 82.5 Estimated GFR > 60 POC Glucose 155 H 160 H Random Glucose 189 H Calcium 7.7 L Total Bilirubin AST ALT Alkaline Phosphatase Total Protein Albumin Blood Type Antibody Screen Microbiology Microbiology Results: Microbiology 02/15/24 13:38 Blood Culture - Preliminary Blood - Venous No growth after 24 hours. 02/15/24 13:38 Blood Culture - Preliminary Blood - Venous No growth after 24 hours. Procedures Date of Service Date of Service: 02/18/24 Progress Note: A&P Assessment and plan (1) SBO (small bowel obstruction): Status: Acute Assessment and Plan: Status post resection with long segment of small bowel Keep NG tube in place IV fluids Abdomen soft Await return of GI functions Potassium and WBC better Kidney function much improved, with good urine output Hospitalist following Time Spent With Patient Time: Total time managing care of this patient today ____ minutes. Quality Stroke Does the patient have a stroke diagnosis?: No VTE Prior VTE?: No VTE Risk Level:: Medical - moderate - high VTE Device Contraindication: N/A - Device Ordered VTE Drug Contraindication: N/A - Med Ordered
[2024-02-17] MEDS: Morphine Sulfate 4 MG/ML CARTRIDGE 3 MG IVPUSH (08:05)
[2024-02-17] MEDS: Albuterol/Iprat 2.5/0.5MG 3 ML AMPUL.NEB INHALE ×3 (08:22→19:47)
[2024-02-17] MEDS: Fluticasone/Umeclidinium/Vilanterol 100/62.5/25 BLST.W.DEV 1 PUFF INHALE (08:22)
[2024-02-17] MEDS: Heparin Sodium,Porcine 5,000 UNIT/ML VIAL 5000 UNIT SUBCUT ×2 (09:22→21:09)
[2024-02-17] MEDS: Pantoprazole Sodium 40 MG/10 ML VIAL 20 MG IVPUSH (09:22)
[2024-02-17] MEDS: 0.9 % Sodium Chloride 1,000 ML 125 ML IVCONT (09:23)
[2024-02-17 11:53] LABS: Glucose, Whole Blood 160 mg/dL (60-115)
--- NOTE | 2024-02-17 12:01 | MHC.CM.PN ---
Addendum entered by Isis Donohue RN 02/17/24 13:29: HCP received from [facility]. Agent is brother Levy Lantigua [phone]. Copy placed in chart and copy in [facility]. Addendum entered by Isis Donohue RN 02/17/24 12:08: [facility] - [phone] [place] [facility] RN - [phone] Original Note: IMM delivered. OVERNIGHT ASSOCIATE completed w/ patient and group account director, Wins[facility], as patient unable to answer some questions. Per [facility] patient can shut down and mentally struggle during hospitalizations or visits to doctor. Patient from independent living affiliated w/ jail on [address] in [place]. Per group account director patient is independent w/ ADL's, though not consistent w/ managing diabetes. Active w/ [facility]. PCP MD Winsome Carey reports HCP on file is patient's brother, will fax copy. DP: Goal is return home, self care. Will not require orders from jail, just dc summary. [facility] to transport. CM will continue to follow.
--- NOTE | 2024-02-17 13:05 | HO.PM.IMPN ---
Subjective Subjective Date of Service: 02/17/24 Interval History: Seen and evaluated this morning POD 1 pain fairly controlled not on O2 , sats 94-96% Review of Systems Review of Systems: Yes all other systems are reviewed and are negative Physical Exam Vital Signs: Vital Signs: Last Vital Signs Temp 98.2 F 02/17/24 07:47 Pulse 89 02/17/24 08:25 Resp 12 02/17/24 07:47 BP 109/53 L 02/17/24 07:47 Pulse Ox 96 02/17/24 09:56 O2 Del Method Room Air 02/17/24 09:56 O2 Flow Rate 2 02/17/24 07:47 BMI result Body Mass Index 27.1 Const: Other: Constitutional : Awake, in mild distress Neck : Normal inspection, Supple Cardiovascular : RRR, no JVP, no lower extremity edema Respiratory : good bilateral air entry, fine basal crackles Gastrointestinal: soft, lax, decreased bowel sounds, abdominal wound covered with dressing Skin : Warm, Dry Neurological : Alert & oriented to self, No focal deficit Objective Data Active Medications Albuterol/Ipratropium (Albuterol/Iprat 2.5/0.5mg 3 Ml Ampul.Neb) 3 ml INHALE RQ6H WHILE AWAKE [facility] Last Admin: 02/17/24 08:22 Dose: 3 ml Documented By: NASIM Fluticasone/Umeclidinium/Vilanterol (Fluticasone/Umeclidinium/Vilanterol 100/62.5/25 Blst.W.Dev) 1 puff INHALE RDAILY [facility] Last Admin: 02/17/24 08:22 Dose: 1 puff Documented By: NASIM Guaifenesin (Guaifenesin La 600 Mg Tab.Er.12h) 600 mg PO BID [facility] Last Admin: 02/17/24 09:05 Dose: Not Given Documented By: MILAD Non-Admin Reason: NPO Heparin Sodium (Porcine) (Heparin Sodium,Porcine 5,000 Unit/Ml Vial) 5,000 unit SUBCUT Q12H [facility] Last Admin: 02/17/24 09:22 Dose: 5,000 unit Documented By: MILAD Sodium Chloride (Ns) 1,000 mls @ 125 mls/hr IVCONT .Q8H [facility] Last Admin: 02/17/24 09:23 Dose: 125 mls/hr Documented By: MILAD Ceftriaxone Sodium 1 gm/ (Sodium Chloride) 50 mls @ 100 mls/hr IV Q24H [facility] Last Infusion: 02/16/24 15:20 Dose: Infused Documented By: NEO Dextrose (D10) 250 mls @ 750 mls/hr IV Q15M PRN PRN Reason: per Hypoglycemia Standing Ord. Last Infusion: 02/16/24 16:55 Dose: Infused Documented By: LINDA Insulin Glargine (Insulin Glargine,Hum.Rec.Anlog 100 Unit/Ml 10 Ml Vial) 10 unit SUBCUT BEDTIME [facility] Last Admin: 02/16/24 20:46 Dose: 5 unit Documented By: LINDA Comments: per , Insulin Human Lispro (Insulin Lispro 100 Unit/Ml 3 Ml Vial) 0 unit SUBCUT QIDACHS [facility]; Protocol Last Admin: 02/17/24 12:09 Dose: Not Given Documented By: MILAD Non-Admin Reason: NPO Levothyroxine Sodium (Levothyroxine Sodium 100 Mcg/5 Ml Vial) 100 mcg IVPUSH DAILY@0600 [facility] Last Admin: 02/17/24 04:40 Dose: Not Given Documented By: ANGELA Non-Admin Reason: NPO Morphine Sulfate (Morphine Sulfate 4 Mg/Ml Cartridge) 3 mg IVPUSH Q3H PRN; Protocol PRN Reason: Pain, Severe (Pain Scale 7-10) Last Admin: 02/17/24 08:05 Dose: 3 mg Documented By: MILAD Olanzapine (Olanzapine 10 Mg Vial) 5 mg IM BEDTIME [facility] Last Admin: 02/16/24 20:35 Dose: 5 mg Documented By: LINDA Ondansetron HCl (Ondansetron Hcl 4 Mg/2 Ml Vial) 4 mg IVPUSH Q8H PRN PRN Reason: Nausea and Vomiting Last Admin: 02/16/24 09:36 Dose: 4 mg Documented By: NEO Pantoprazole Sodium (Pantoprazole Sodium 40 Mg/10 Ml Vial) 20 mg IVPUSH DAILY [facility] Last Admin: 02/17/24 09:22 Dose: 20 mg Documented By: MILAD Sodium Chloride (0.9 % Sodium Chloride Flush 3 Ml Syringe) 3 ml IVFLUSH QSHIFT [facility] Last Admin: 02/17/24 09:03 Dose: Not Given Documented By: MILAD Non-Admin Reason: IV Running Labs 02/17/24 05:58 02/17/24 05:58 Labs: Laboratory Results - last 24 hr 02/16/24 02/16/24 02/16/24 12:12 14:58 15:55 MCV MCH MCHC RDW Plt Count MPV Absolute Nucleated RBC Nucleated RBC % (auto) Anion Gap 19 13 Estim Creat Clear Calc 39.8 44.6 Estimated GFR 31 35 POC Glucose 196 H Random Glucose 300 H D 234 H Calcium 8.0 L D 7.7 L Total Bilirubin 0.3 AST 6 ALT 5 Alkaline Phosphatase 82 Total Protein 5.2 L Albumin 2.5 L D 02/16/24 02/17/24 02/17/24 19:25 05:58 07:38 MCV 83.9 MCH 25.9 L MCHC 30.9 L RDW 16.0 Plt Count 290 D MPV 9.8 Absolute Nucleated RBC 0.000 Nucleated RBC % (auto) 0.0 Anion Gap 10 L Estim Creat Clear Calc 82.5 Estimated GFR > 60 POC Glucose 155 H 160 H Random Glucose 189 H Calcium 7.7 L Total Bilirubin AST ALT Alkaline Phosphatase Total Protein Albumin 02/17/24 11:49 MCV MCH MCHC RDW Plt Count MPV Absolute Nucleated RBC Nucleated RBC % (auto) Anion Gap Estim Creat Clear Calc Estimated GFR POC Glucose 160 H Random Glucose Calcium Total Bilirubin AST ALT Alkaline Phosphatase Total Protein Albumin Microbiology Microbiology Results: Microbiology 02/15/24 13:38 Blood Culture - Preliminary Blood - Venous No growth after 24 hours. 02/15/24 13:38 Blood Culture - Preliminary Blood - Venous No growth after 24 hours. Assessment and Plan (1) SBO (small bowel obstruction): Status: Acute (2) Hypoxia: Status: Acute Plan A 58 years old male with PMH COPD, HTN, HLD, DM2, Hypothyroidism and cognitive impairment who presented from [facility] with severe abdominal pain of sudden onset. PHILIP w hyperkalemia resolved Continue IV Dextrose\Insulin as needed for hyperkalemia follow BMP Intestinal obstruction POD 1 post resection and anastamosis of small bowels WBCs trending down Surgery team following Hypoxia , resolved on RA CT chest showing multiple non-specific findings suggestive of chronic inflammation, possible ILD to give Nebulizer Empirical Ceftriaxone Incentive spirometry , chest physiotherapy Monitor for the need of Antibiotics Hx Diabetes SSI for now Mood disorder continue home medications once he can tolerate PO meanwhile Valproic acid Hypothyroidism IV Levothyroxine for now until he tolerates PO Rest of medications are on hold for NPO status. Thank you for the consult will continue to monitor the patient Quality Stroke Does the patient have a stroke diagnosis?: No VTE Prior VTE?: No VTE Risk Level:: Medical - moderate - high VTE Device Contraindication: N/A - Device Ordered VTE Drug Contraindication: N/A - Med Ordered
[2024-02-17] MEDS: cefTRIAXone sodium 1 GM in 0.9 % Sodium Chloride 50 ML IV (13:58)
--- NOTE | 2024-02-17 15:11 | PM.EVENT ---
Event Note Date of Service: 02/17/24 Event Note: Seen on afternoon rounds Sitting on recliner Appears comfortable Still with mild shortness of breath Good urine output Abdomen soft NG tube in place Pain management Stable so far Time Spent With Patient Time: Total time managing care of this patient today ____ minutes.
[2024-02-17 16:22] LABS: Glucose, Whole Blood 125 mg/dL (60-115)
[2024-02-17 20:30] LABS: Glucose, Whole Blood 126 mg/dL (60-115)
[2024-02-17] MEDS: Insulin Glargine,Hum.rec.anlog 100 UNIT/ML 10 ML VIAL 10 UNIT SUBCUT (21:10)
[2024-02-17] MEDS: OLANZapine 10 MG VIAL 5 MG IM ×2 (21:15→22:54)
[2024-02-17] MEDS: 0.9 % Sodium Chloride Flush 3 ML SYRINGE IVFLUSH (21:18)
[2024-02-18] VITALS (13 sets, daily range): BP systolic 114–151; BP diastolic 56–69; PULSE 80–90; RESP 15–24; TEMP 36.6–37.8; O2SAT 91–94
[2024-02-18 01:13] LABS: Glucose, Whole Blood 103 mg/dL (60-115)
[2024-02-18] MEDS: Morphine Sulfate 4 MG/ML CARTRIDGE 3 MG IVPUSH ×3 (01:20→14:19)
[2024-02-18 05:42] LABS: Glucose, Whole Blood 85 mg/dL (60-115)
--- NOTE | 2024-02-18 06:00 | PC.NURSE ---
Approximately after 22:00, pt pulled out his NGT with the camera in RM. Pt had a total of 2 NGT's pulled during previous shift. MD Paulino and nursing farm equipment maintenance supervisor was made aware of the situation. A new NGT was placed at 22:40 to R nare and xray was ordered to check placement. Based on the xray the NGT was advanced by 10cm per MD Paulino ordered with good effect. NGT putting out brown drainage on low intermittent suction per order. One time dose of IM Zyprexa was order due to pt having increased restlessness and trying to pull out the new NGT. Sitter was placed at pt's bedside at 23:00. Pt's bed in the lowest position with call tracy within reach, and sitter at bedside. Will continue to monitor pt's behavior.
[2024-02-18 06:09] LABS: Hematocrit 28.1 % (42.0-52.0); Hemoglobin 8.6 g/dl (14.0-18.0); Mean Corpuscular HGB Conc 30.6 g/dl (31.0-36.0); Mean Corpuscular Hemoglobin 25.7 pg (27.0-33.0); Mean Corpuscular Volume 83.9 fL (80.0-98.0); Mean Platelet Volume 9.2 fL (9.4-12.4); Platelet Count 238 X10*3/uL (160-400); Red Blood Count 3.35 X10*6/uL (4.60-5.80); Red Cell Distribution Width 16.2 % (11.0-16.0); White Blood Count 16.4 X10*3/uL (4.8-10.8)
--- NOTE | 2024-02-18 06:17 | PC.NURSE ---
Addendum entered by Georgia Daily RN 02/18/24 06:24: Early this morning pt's POC was checked again for 85. Pt continue to appeared clammy/sweaty to face. Rectal temp was taken 99.7. MD Paulino made yuan of the pt's POC. Will continue to monitor pt's POC. Addendum entered by Georgia Daily RN 02/18/24 06:22: Approximately around 01:00, pt appeared clammy/sweaty to face and bilateral hands. POC 103. Original Note: Bedtime POC 126. MD Paulino notified of the POC and the pt being NPO with no IVF running. Pt had [facility] Lantus of 10units at bedtime, but MD Paulino ordered this RN to only give 5 units of Lantus since the pt is NPO. Will continue to monitor pt's POC.
[2024-02-18 06:29] LABS: Anion Gap 7 (12-20); Blood Urea Nitrogen 14 mg/dL (9-16); Calcium 8.7 mg/dL (8.4-10.2); Carbon Dioxide 32 mmol/L (22-29); Chloride 110 mmol/L (96-108); Creatinine Clr Calc Pharmacy 135.9; Estimated Glomerular Filt Rate > 60; Glucose Random 84 mg/dL (60-115); Potassium 3.3 mmol/L (3.3-5.1); Sodium 146 mmol/L (135-145)
[2024-02-18 07:43] LABS: Glucose, Whole Blood 80 mg/dL (60-115)
[2024-02-18] MEDS: Fluticasone/Umeclidinium/Vilanterol 100/62.5/25 BLST.W.DEV 1 PUFF INHALE (07:47)
[2024-02-18] MEDS: Pantoprazole Sodium 40 MG/10 ML VIAL 20 MG IVPUSH (08:15)
[2024-02-18] MEDS: 0.9 % Sodium Chloride Flush 3 ML SYRINGE IVFLUSH (08:16)
--- NOTE | 2024-02-18 08:26 | HO.POSTANES ---
Post Anesthesia Evaluation Post Anesthesia Evaluation Date of Service: 02/18/24 Vital Signs: Vital Signs Temp Pulse Resp BP Pulse Ox O2 Del Method 02/18/24 08:23 80 24 H 94 02/18/24 07:48 80 24 H 02/18/24 07:43 98.6 F 80 24 H 139/63 91 L Room Air 02/18/24 05:50 99.7 F 02/18/24 03:00 98.2 F 90 16 132/60 92 Room Air Anesthesia: General Mental Status: Awake Pain Control: Satisfactory Nausea/Vomiting: None Hydration: Adequate Anesthesia-Related Issues: No Anes. Related Issues
--- NOTE | 2024-02-18 09:21 | P.PNGS_ITS ---
Subjective Subjective Date of Service: 02/18/24 <Hailey Roman PA-C - Last Filed: 02/18/24 09:26> 02/18/24 <Paul Thomas MD - Last Filed: 02/18/24 09:58> Interval history: Patient apparently pulled NGT out twice last night. NGT reinserted this morning with close to 900cc output. Patient denies abdominal pain or flatus. < Hailey Roman PA-C - Last Filed: 02/18/24 09:26> Physical Exam 2 Vital Signs: Vital Signs: Last Vital Signs Temp 98.6 F 02/18/24 07:43 Pulse 80 02/18/24 08:23 Resp 24 H 02/18/24 08:23 BP 139/63 02/18/24 07:43 Pulse Ox 94 02/18/24 08:23 O2 Del Method Room Air 02/18/24 07:43 O2 Flow Rate 2 02/17/24 07:47 BMI result Body Mass Index 27.1 <Hailey Roman PA-C - Last Filed: 02/18/24 09:26> Const: General: alert; No acute distress <Hailey Roman PA-C - Last Filed: 02/18/24 09:26> Resp: Effort & Inspection: no respiratory distress, tachypneic and no use of accessory muscles <Hailey Roman PA-C - Last Filed: 02/18/24 09:26> GI: Inspection: Yes distended and Yes incision (dressing c/d/i) <Hailey Roman PA-C - Last Filed: 02/18/24 09:26> Palpation (GI): Soft to palpation, nontender, no guarding and not rigid < Hailey Roman PA-C - Last Filed: 02/18/24 09:26> Skin: General skin exam: no rashes or lesions noted <MORAIMA Bright Last Filed: 02/18/24 09:26> Objective Data Active Medications Albuterol/Ipratropium (Albuterol/Iprat 2.5/0.5mg 3 Ml Ampul.Neb) 3 ml INHALE RQ6H WHILE AWAKE [facility] Last Admin: 02/18/24 07:47 Dose: Not Given Documented By: OMER Non-Admin Reason: Patient Condition Contraindication Fluticasone/Umeclidinium/Vilanterol (Fluticasone/Umeclidinium/Vilanterol 100/62.5/25 Blst.W.Dev) 1 puff INHALE RDAILY REPLACED BY [facility] Last Admin: 02/18/24 07:47 Dose: 1 puff Documented By: OMER Guaifenesin (Guaifenesin La 600 Mg Tab.Er.12h) 600 mg PO BID REPLACED BY [facility] Last Admin: 02/18/24 08:23 Dose: Not Given Documented By: YRN Non-Admin Reason: NPO Heparin Sodium (Porcine) (Heparin Sodium,Porcine 5,000 Unit/Ml Vial) 5,000 unit SUBCUT Q12H REPLACED BY [facility] Last Admin: 02/17/24 21:09 Dose: 5,000 unit Documented By: SUKUMAR Ceftriaxone Sodium 1 gm/ (Sodium Chloride) 50 mls @ 100 mls/hr IV Q24H REPLACED BY [facility] Last Infusion: 02/17/24 14:34 Dose: Infused Documented By: MILAD Dextrose (D10) 250 mls @ 750 mls/hr IV Q15M PRN PRN Reason: per Hypoglycemia Standing Ord. Last Infusion: 02/16/24 16:55 Dose: Infused Documented By: LINDA Insulin Glargine (Insulin Glargine,Hum.Rec.Anlog 100 Unit/Ml 10 Ml Vial) 10 unit SUBCUT BEDTIME REPLACED BY [facility] Last Admin: 02/17/24 21:10 Dose: 5 unit Documented By: SUKUMAR Comments: PT POC 126, NPO dietMD Paulino ordered the pt to give half the Lantus, only 5 units instead of 10 units. Insulin Human Lispro (Insulin Lispro 100 Unit/Ml 3 Ml Vial) 0 unit SUBCUT QIDACHS REPLACED BY [facility]; Protocol Last Admin: 02/18/24 08:09 Dose: Not Given Documented By: YRN Non-Admin Reason: No Insulin Coverage Levothyroxine Sodium (Levothyroxine Sodium 100 Mcg/5 Ml Vial) 100 mcg IVPUSH DAILY@0600 REPLACED BY [facility] Last Admin: 02/18/24 05:04 Dose: Not Given Documented By: SUKUMAR Non-Admin Reason: NPO Morphine Sulfate (Morphine Sulfate 4 Mg/Ml Cartridge) 3 mg IVPUSH Q3H PRN; Protocol PRN Reason: Pain, Severe (Pain Scale 7-10) Last Admin: 02/18/24 01:20 Dose: 3 mg Documented By: SUKUMAR Olanzapine (Olanzapine 10 Mg Vial) 5 mg IM BEDTIME REPLACED BY [facility] Last Admin: 02/17/24 21:15 Dose: 5 mg Documented By: SUKUMAR Ondansetron HCl (Ondansetron Hcl 4 Mg/2 Ml Vial) 4 mg IVPUSH Q8H PRN PRN Reason: Nausea and Vomiting Last Admin: 02/16/24 09:36 Dose: 4 mg Documented By: NEO Pantoprazole Sodium (Pantoprazole Sodium 40 Mg/10 Ml Vial) 20 mg IVPUSH DAILY REPLACED BY [facility] Last Admin: 02/18/24 08:15 Dose: 20 mg Documented By: YRN Sodium Chloride (0.9 % Sodium Chloride Flush 3 Ml Syringe) 3 ml IVFLUSH QSHIFT REPLACED BY [facility] Last Admin: 02/18/24 08:16 Dose: 3 ml Documented By: YRN <Hailey Roman PA-C - Last Filed: 02/18/24 09:26> Labs CBC & Chem 7: 02/18/24 05:52 02/18/24 05:52 <Hailey Roman PA-C - Last Filed: 02/18/24 09:26> Labs: Laboratory Results - last 24 hr 02/17/24 02/17/24 02/17/24 11:49 16:16 20:17 MCV MCH MCHC RDW Plt Count MPV Absolute Nucleated RBC Nucleated RBC % (auto) Anion Gap Estim Creat Clear Calc Estimated GFR POC Glucose 160 H 125 H 126 H Random Glucose Calcium 02/18/24 02/18/24 02/18/24 01:07 05:38 05:52 MCV 83.9 MCH 25.7 L MCHC 30.6 L RDW 16.2 H Plt Count 238 MPV 9.2 L Absolute Nucleated RBC 0.000 Nucleated RBC % (auto) 0.0 Anion Gap 7 L Estim Creat Clear Calc 135.9 Estimated GFR > 60 POC Glucose 103 85 Random Glucose 84 Calcium 8.7 D 02/18/24 07:38 MCV MCH MCHC RDW Plt Count MPV Absolute Nucleated RBC Nucleated RBC % (auto) Anion Gap Estim Creat Clear Calc Estimated GFR POC Glucose 80 Random Glucose Calcium <Hailey Roman PA-C - Last Filed: 02/18/24 09:26> Microbiology Microbiology Results: Microbiology 02/15/24 13:38 Blood Culture - Preliminary Blood - Venous No growth after 48 hours. 02/15/24 13:38 Blood Culture - Preliminary Blood - Venous No growth after 48 hours. <Hailey Roman PA-C - Last Filed: 02/18/24 09:26> Procedures Date of Service Date of Service: 02/18/24 <Hialey Roman PA-C - Last Filed: 02/18/24 09:26> 02/18/24 <Paul Thomas MD - Last Filed: 02/18/24 09:58> Progress Note: A&P Assessment and plan (1) SBO (small bowel obstruction): Status: Acute <Hailey Roman PA-C - Last Filed: 02/18/24 09:26> Assessment and Plan: abd soft, no guarding or rebound he pulled out NGT last night, reinserted, still with high amounts good UO keep NGT, keep Mays in OOB ok to have ice chips labs ok dw Hospitalist unavailable reach HCP, shelter <Paul Thomas MD - Last Filed: 02/18/24 09:58> Assessment and Plan: Status post resection with long segment of ischemic small bowel Abd remains softly distended, benign, dressing clean NGT continues with high output, keep in place for now. F/u CXR showed NGT just passed GE junction and was slightly advanced by nursing. May have prolonged return of GI function, await return. Cont IV fluids. WBC and BMP improved. Good UOP, keep mays in place for now. Hospitalist following. <Hailey Roman PA-C - Last Filed: 02/18/24 09:26> Time Spent With Patient Time: Total time managing care of this patient today ____ minutes. <Hailey Roman PA-C - Last Filed: 02/18/24 09:26> Quality Stroke Does the patient have a stroke diagnosis?: No <Hailey Roman PA-C - Last Filed: 02/18/24 09:26> VTE Prior VTE?: No <Hailey Roman PA-C - Last Filed: 02/18/24 09:26> VTE Risk Level:: Medical - moderate - high <Hailey Roman PA-C - Last Filed: 02/18/24 09:26> VTE Device Contraindication: N/A - Device Ordered <MORAIMA Bright Last Filed: 02/18/24 09:26> VTE Drug Contraindication: N/A - Med Ordered <MORAIMA Bright Last Filed: 02/18/24 09:26>
[2024-02-18] MEDS: Heparin Sodium,Porcine 5,000 UNIT/ML VIAL 5000 UNIT SUBCUT ×2 (09:41→21:43)
[2024-02-18] MEDS: 0.9 % Sodium Chloride 1,000 ML 125 ML IVCONT ×2 (09:41→17:33)
[2024-02-18 12:18] LABS: Glucose, Whole Blood 79 mg/dL (60-115)
[2024-02-18] MEDS: cefTRIAXone sodium 1 GM in 0.9 % Sodium Chloride 50 ML IV (12:49)
--- NOTE | 2024-02-18 14:34 | PC.NURSE ---
1100 approx. patient attempted to pull out NG tube while being cleaned by staff, pt only pulled a few inches so t/w was able to advance the NG tube back in, MD made aware to order order CXR to confirm placement and discussed that this was the 3rd time patient has pulled out NGT, soft restraints were ordered for patient safety and to not remove NGT, pt already has 1:[address] and camera in room. 1200 soft restraints were placed and patient tolerated well.
--- NOTE | 2024-02-18 14:40 | PC.NURSE ---
1245 mays cath was removed by this RN, pt tolerated well and a [place] cath was placed since patient is incont. DTV by 184
--- NOTE | 2024-02-18 14:55 | PC.NURSE ---
fluids completed at this time. repeat BPs to be taken.
--- NOTE | 2024-02-18 15:11 | PM.EVENT ---
Event Note Date of Service: 02/18/24 Event Note: Seen on afternoon rounds Seems to have been stable today Abdomen remained soft and benign Good urine output Okay to DC Anguiano Out of bed to recliner Keep NG tube in place Await have ice chips Appreciate hospitalist follow-up Time Spent With Patient Time: Total time managing care of this patient today ____ minutes.
--- NOTE | 2024-02-18 15:26 | PC.NURSE ---
repeat fluid BP #2 taken at 1526
--- NOTE | 2024-02-18 15:30 | HO.PM.IMPN ---
Subjective Subjective Date of Service: 02/18/24 Interval History: pulled out NGT x2 reinserted this AM, 900 cc bilious output returned denies abd pain Review of Systems Review of Systems: Yes all other systems are reviewed and are negative Physical Exam Vital Signs: Vital Signs: Last Vital Signs Temp 99.3 F 02/18/24 14:10 Pulse 84 02/18/24 14:10 Resp 24 H 02/18/24 14:10 BP 151/66 H 02/18/24 14:10 Pulse Ox 91 L 02/18/24 14:10 O2 Del Method Room Air 02/18/24 14:10 O2 Flow Rate 2 02/17/24 07:47 BMI result Body Mass Index 27.1 Gen: in no acute distress HEENT: sclera anicteric, moist mucus membranes Neck: supple Lungs: clear to auscultation bilaterally Heart: regular rate and rhythm, no murmurs Abd: distended, no bowel sounds, NGT with bilious output Ext: no edema Skin: warm/well-perfused Neuro: alert and oriented to self only, no focal weakness Psych: limited insight Objective Data Active Medications Albuterol/Ipratropium (Albuterol/Iprat 2.5/0.5mg 3 Ml Ampul.Neb) 3 ml INHALE RQ6H WHILE AWAKE REPLACED BY [facility] Last Admin: 02/18/24 14:41 Dose: Not Given Documented By: OMER Non-Admin Reason: pt agitated, unable to tolerate Fluticasone/Umeclidinium/Vilanterol (Fluticasone/Umeclidinium/Vilanterol 100/62.5/25 Blst.W.Dev) 1 puff INHALE RDAILY REPLACED BY [facility] Last Admin: 02/18/24 07:47 Dose: 1 puff Documented By: OMER Guaifenesin (Guaifenesin La 600 Mg Tab.Er.12h) 600 mg PO BID REPLACED BY [facility] Last Admin: 02/18/24 08:23 Dose: Not Given Documented By: YRN Non-Admin Reason: NPO Heparin Sodium (Porcine) (Heparin Sodium,Porcine 5,000 Unit/Ml Vial) 5,000 unit SUBCUT Q12H REPLACED BY [facility] Last Admin: 02/18/24 09:41 Dose: 5,000 unit Documented By: YRN Ceftriaxone Sodium 1 gm/ (Sodium Chloride) 50 mls @ 100 mls/hr IV Q24H REPLACED BY [facility] Last Infusion: 02/18/24 13:48 Dose: Infused Documented By: YRN Dextrose (D10) 250 mls @ 750 mls/hr IV Q15M PRN PRN Reason: per Hypoglycemia Standing Ord. Last Infusion: 02/16/24 16:55 Dose: Infused Documented By: LINDA Sodium Chloride (Ns) 1,000 mls @ 125 mls/hr IVCONT .Q8H [facility] Last Admin: 02/18/24 09:41 Dose: 125 mls/hr Documented By: YRN Insulin Glargine (Insulin Glargine,Hum.Rec.Anlog 100 Unit/Ml 10 Ml Vial) 10 unit SUBCUT BEDTIME REPLACED BY [facility] Last Admin: 02/17/24 21:10 Dose: 5 unit Documented By: SUKUMAR Comments: PT POC 126, NPO diet, MD Paulino ordered the pt to give half the Lantus, only 5 units instead of 10 units. Insulin Human Lispro (Insulin Lispro 100 Unit/Ml 3 Ml Vial) 0 unit SUBCUT QIDACHS REPLACED BY [facility]; Protocol Last Admin: 02/18/24 12:22 Dose: Not Given Documented By: YRN Non-Admin Reason: No Insulin Coverage Levothyroxine Sodium (Levothyroxine Sodium 100 Mcg/5 Ml Vial) 100 mcg IVPUSH DAILY@0600 REPLACED BY [facility] Last Admin: 02/18/24 05:04 Dose: Not Given Documented By: SUKUMAR Non-Admin Reason: NPO Morphine Sulfate (Morphine Sulfate 4 Mg/Ml Cartridge) 3 mg IVPUSH Q3H PRN; Protocol PRN Reason: Pain, Severe (Pain Scale 7-10) Last Admin: 02/18/24 14:19 Dose: 3 mg Documented By: YRN Olanzapine (Olanzapine 10 Mg Vial) 5 mg IM BEDTIME REPLACED BY [facility] Last Admin: 02/17/24 21:15 Dose: 5 mg Documented By: SUKUMAR Ondansetron HCl (Ondansetron Hcl 4 Mg/2 Ml Vial) 4 mg IVPUSH Q8H PRN PRN Reason: Nausea and Vomiting Last Admin: 02/16/24 09:36 Dose: 4 mg Documented By: NEO Pantoprazole Sodium (Pantoprazole Sodium 40 Mg/10 Ml Vial) 20 mg IVPUSH DAILY REPLACED BY [facility] Last Admin: 02/18/24 08:15 Dose: 20 mg Documented By: YRN Sodium Chloride (0.9 % Sodium Chloride Flush 3 Ml Syringe) 3 ml IVFLUSH QSHIFT REPLACED BY [facility] Last Admin: 02/18/24 14:51 Dose: Not Given Documented By: YRN Non-Admin Reason: IV Running Labs 02/18/24 05:52 02/18/24 05:52 Labs: Laboratory Results - last 24 hr 02/17/24 02/17/24 02/18/24 16:16 20:17 01:07 MCV MCH MCHC RDW Plt Count MPV Absolute Nucleated RBC Nucleated RBC % (auto) Anion Gap Estim Creat Clear Calc Estimated GFR POC Glucose 125 H 126 H 103 Random Glucose Calcium 02/18/24 02/18/24 02/18/24 05:38 05:52 07:38 MCV 83.9 MCH 25.7 L MCHC 30.6 L RDW 16.2 H Plt Count 238 MPV 9.2 L Absolute Nucleated RBC 0.000 Nucleated RBC % (auto) 0.0 Anion Gap 7 L Estim Creat Clear Calc 135.9 Estimated GFR > 60 POC Glucose 85 80 Random Glucose 84 Calcium 8.7 D 02/18/24 12:12 MCV MCH MCHC RDW Plt Count MPV Absolute Nucleated RBC Nucleated RBC % (auto) Anion Gap Estim Creat Clear Calc Estimated GFR POC Glucose 79 Random Glucose Calcium Microbiology Microbiology Results: Microbiology 02/15/24 13:38 Blood Culture - Preliminary Blood - Venous No growth after 48 hours. 02/15/24 13:38 Blood Culture - Preliminary Blood - Venous No growth after 48 hours. Assessment and Plan (1) SBO (small bowel obstruction): Status: Acute (2) Hypoxia: Status: Acute Plan d4 58yo M with COPD, HTN, HLD, DM2, hypothyroidism, cognitive impairment presenting with abdominal pain and admitted to surgical service for SBO found to have ischemic small bowel, underwent laparotomy with resection of 2.2m small bowel + reanastomosis 02/16/24 medicine consult for management of comorbid conditions prerenal PHILIP hyperK - resolved after fluid repletion, insulin/dextrose SBO - POD2, NGT in place, soft restraints as pt has pulled out NGT x2. IV fluids. acute hypoxic respiratory failure likely due to COPD but treating for possible pneumonia. - ceftriaxone 02/15-, check PCT, BCx negative. Nebuzlier treatments. Continue Trelegy - weaned off O2 acute blood loss anemia - monitor H+H daily HTN - atenolol on hold; if BP persistently elevated can give IV metoprolol HLD - atorvastatin on hold DM2 - basal-bolus insulin mood disorder - on IM olanzapine for now; holding PO fluphenazine + clozapine + gabapentin + lithium until taking POs; will need to consult Psych once able to restart clozapine re: titration hypothyroidism - continue LT4 but IV for now VTE ppx - UFH Thank you for this consultation. We will continue to follow the patient while they are admitted to your service. Total time managing care of this patient today: 35 minutes. Quality Stroke Does the patient have a stroke diagnosis?: No VTE Prior VTE?: No VTE Risk Level:: Medical - moderate - high VTE Device Contraindication: N/A - Device Ordered VTE Drug Contraindication: N/A - Med Ordered
--- NOTE | 2024-02-18 15:58 | PC.NURSE ---
fluids completed at 1455 not at this time- were accidentally charted as completed at 1558 by other RN but finished prior... see earlier repeat fluid BPs 1526 and 1500.
--- NOTE | 2024-02-18 17:50 | PC.NURSE ---
2mg morphine administered per order iv push at this time. pt alert, no resp distress. c/o abdominal pain. given prior to moving pt going to main ED for NGT placement.
[2024-02-18 18:01] LABS: Glucose, Whole Blood 103 mg/dL (60-115)
--- NOTE | 2024-02-18 20:14 | PC.NURSE ---
repeat BP #1 taken at 1500.
[2024-02-18] MEDS: Albuterol/Iprat 2.5/0.5MG 3 ML AMPUL.NEB INHALE (20:17)
--- NOTE | 2024-02-18 21:29 | PC.NURSE ---
Per Dr. Paulino, at 21:11, I was instructed that it is okay to only administer 5 units of Insulin Glargine to patient, as he is NPO with POC of 103.
[2024-02-18] MEDS: OLANZapine 10 MG VIAL 5 MG IM (21:42)
[2024-02-18] MEDS: Insulin Glargine,Hum.rec.anlog 100 UNIT/ML 10 ML VIAL 10 UNIT SUBCUT (21:43)
[2024-02-19] VITALS (19 sets, daily range): BP systolic 123–159; BP diastolic 58–68; PULSE 65–85; RESP 15–20; TEMP 36.3–37.7; O2SAT 89–94; BMI 27.1
[2024-02-19 00:30] LABS: Glucose, Whole Blood 69 mg/dL (60-115)
[2024-02-19] MEDS: 0.9 % Sodium Chloride 1,000 ML 125 ML IVCONT (00:58)
[2024-02-19 02:08] LABS: Glucose, Whole Blood 61 mg/dL (60-115)
--- NOTE | 2024-02-19 02:13 | PC.NURSE ---
Contacted Dr. Paulino at 0213 for a POC of 61. Per protocol, administering D10 250ml over 20 minutes and rechecking POC in 15 minutes of D10 finishing.
[2024-02-19] MEDS: Dextrose 10 % 250 ML 750 ML IV (02:15)
[2024-02-19] MEDS: Morphine Sulfate 4 MG/ML CARTRIDGE 3 MG IVPUSH ×5 (02:30→20:50)
[2024-02-19 02:38] LABS: Glucose, Whole Blood 138 mg/dL (60-115)
--- NOTE | 2024-02-19 02:39 | PC.NURSE ---
Repeast POC is 138. MD notified. D10 is complete.
[2024-02-19 06:27] LABS: Glucose, Whole Blood 71 mg/dL (60-115)
[2024-02-19] MEDS: Heparin Sodium,Porcine 5,000 UNIT/ML VIAL 5000 UNIT SUBCUT ×2 (07:37→20:53)
[2024-02-19] MEDS: Pantoprazole Sodium 40 MG/10 ML VIAL 20 MG IVPUSH (07:38)
[2024-02-19] MEDS: Levothyroxine Sodium 100 MCG/5 ML VIAL 75 MCG IVPUSH (07:38)
[2024-02-19] MEDS: Dextrose 5 % and 0.9 % NaCl 1,000 ML 125 ML IVCONT (07:38)
[2024-02-19 07:52] LABS: Hematocrit 26.9 % (42.0-52.0); Hemoglobin 8.1 g/dl (14.0-18.0); Mean Corpuscular HGB Conc 30.1 g/dl (31.0-36.0); Mean Corpuscular Hemoglobin 25.9 pg (27.0-33.0); Mean Corpuscular Volume 85.9 fL (80.0-98.0); Mean Platelet Volume 9.6 fL (9.4-12.4); Platelet Count 209 X10*3/uL (160-400); Red Blood Count 3.13 X10*6/uL (4.60-5.80); Red Cell Distribution Width 16.4 % (11.0-16.0); White Blood Count 8.6 X10*3/uL (4.8-10.8)
[2024-02-19] MEDS: Albuterol/Iprat 2.5/0.5MG 3 ML AMPUL.NEB INHALE ×3 (07:54→19:10)
[2024-02-19] MEDS: Fluticasone/Umeclidinium/Vilanterol 100/62.5/25 BLST.W.DEV 1 PUFF INHALE (07:54)
--- NOTE | 2024-02-19 07:57 | P.PNGS_ITS ---
Subjective Subjective Date of Service: 02/19/24 <Hailey Roman PA-C - Last Filed: 02/19/24 08:54> 02/19/24 <Paul Thomas MD - Last Filed: 02/19/24 16:08> Interval history: Staff reports patient continues to be restless, ?more confused. Now on soft restraints as keeps pulling at tubes. NGT around 200cc output for 24hrs. RN reports smear of stool yesterday. <Hailey Roman PA-C - Last Filed: 02/19/24 08:54> Physical Exam 2 Vital Signs: Vital Signs: Last Vital Signs Temp 98.1 F 02/19/24 07:26 Pulse 81 02/19/24 07:56 Resp 20 02/19/24 07:56 BP 147/65 H 02/19/24 07:26 Pulse Ox 90 L 02/19/24 07:26 O2 Del Method Room Air 02/19/24 07:26 O2 Flow Rate 2 02/17/24 07:47 BMI result Body Mass Index 27.1 <Hailey Roman PA-C - Last Filed: 02/19/24 08:54> Const: Other: restless, slightly diaphoretic <MORAIMA Bright Last Filed: 02/19/24 08:54> Resp: Effort & Inspection: normal respiratory effort <MORAIMA Bright Last Filed: 02/19/24 08:54> GI: Inspection: Yes distended (mild, softly ) and Yes incision (clean) < Hailey Roman PA-C - Last Filed: 02/19/24 08:54> Palpation (GI): Soft to palpation, nontender and no guarding <Hailey Roman PA-C - Last Filed: 02/19/24 08:54> Skin: General skin exam: no rashes or lesions noted <MORAIMA Bright Last Filed: 02/19/24 08:54> Objective Data Active Medications Albuterol/Ipratropium (Albuterol/Iprat 2.5/0.5mg 3 Ml Ampul.Neb) 3 ml INHALE RQ6H WHILE AWAKE [facility] Last Admin: 02/19/24 07:54 Dose: 3 ml Documented By: NASIM Fluticasone/Umeclidinium/Vilanterol (Fluticasone/Umeclidinium/Vilanterol 100/62.5/25 Blst.W.Dev) 1 puff INHALE RDAILY [facility] Last Admin: 02/19/24 07:54 Dose: 1 puff Documented By: NASIM Guaifenesin (Guaifenesin La 600 Mg Tab.Er.12h) 600 mg PO BID [facility] Last Admin: 02/19/24 07:10 Dose: Not Given Documented By: TIMOTHY Non-Admin Reason: NPO Heparin Sodium (Porcine) (Heparin Sodium,Porcine 5,000 Unit/Ml Vial) 5,000 unit SUBCUT Q12H [facility] Last Admin: 02/19/24 07:37 Dose: 5,000 unit Documented By: TIMOTHY Ceftriaxone Sodium 1 gm/ (Sodium Chloride) 50 mls @ 100 mls/hr IV Q24H [facility] Last Infusion: 02/18/24 13:48 Dose: Infused Documented By: YRN Dextrose (D10) 250 mls @ 750 mls/hr IV Q15M PRN PRN Reason: per Hypoglycemia Standing Ord. Last Infusion: 02/19/24 02:40 Dose: Infused Documented By: ANGELA Dextrose/Sodium Chloride (D5ns) 1,000 mls @ 125 mls/hr IVCONT .Q8H [facility] Last Admin: 02/19/24 07:38 Dose: 125 mls/hr Documented By: TIMOTHY Insulin Glargine (Insulin Glargine,Hum.Rec.Anlog 100 Unit/Ml 10 Ml Vial) 10 unit SUBCUT BEDTIME [facility] Last Admin: 02/18/24 21:43 Dose: 5 unit Documented By: ANGELA Comments: MD schuler Insulin Human Lispro (Insulin Lispro 100 Unit/Ml 3 Ml Vial) 0 unit SUBCUT QIDACHS [facility]; Protocol Last Admin: 02/19/24 07:10 Dose: Not Given Documented By: TIMOTHY Non-Admin Reason: No Insulin Coverage Levothyroxine Sodium (Levothyroxine Sodium 100 Mcg/5 Ml Vial) 75 mcg IVPUSH DAILY@0600 [facility] Last Admin: 04/10/24 07:38 Dose: 75 mcg Documented By: TIMOTHY Morphine Sulfate (Morphine Sulfate 4 Mg/Ml Cartridge) 3 mg IVPUSH Q3H PRN; Protocol PRN Reason: Pain, Severe (Pain Scale 7-10) Last Admin: 02/19/24 07:52 Dose: 3 mg Documented By: TIMOTHY Olanzapine (Olanzapine 10 Mg Vial) 5 mg IM BEDTIME [facility] Last Admin: 02/18/24 21:42 Dose: 5 mg Documented By: ANGELA Ondansetron HCl (Ondansetron Hcl 4 Mg/2 Ml Vial) 4 mg IVPUSH Q8H PRN PRN Reason: Nausea and Vomiting Last Admin: 02/16/24 09:36 Dose: 4 mg Documented By: NEO Pantoprazole Sodium (Pantoprazole Sodium 40 Mg/10 Ml Vial) 20 mg IVPUSH DAILY [facility] Last Admin: 02/19/24 07:38 Dose: 20 mg Documented By: TIMOTHY Sodium Chloride (0.9 % Sodium Chloride Flush 3 Ml Syringe) 3 ml IVFLUSH QSHIFT [facility] Last Admin: 02/19/24 07:12 Dose: Not Given Documented By: TIMOTHY Non-Admin Reason: IV Running <Hailey Roman PA-C - Last Filed: 02/19/24 08:54> Labs CBC & Chem 7: 02/19/24 07:06 02/19/24 07:06 <Hailey Roman PA-C - Last Filed: 02/19/24 08:54> Labs: Laboratory Results - last 24 hr 02/18/24 02/18/24 02/18/24 12:12 17:57 23:34 MCV MCH MCHC RDW Plt Count MPV Absolute Nucleated RBC Nucleated RBC % (auto) POC Glucose 79 103 69 02/19/24 02/19/24 02/19/24 02:04 02:33 06:03 MCV MCH MCHC RDW Plt Count MPV Absolute Nucleated RBC Nucleated RBC % (auto) POC Glucose 61 138 H 71 02/19/24 07:06 MCV 85.9 MCH 25.9 L MCHC 30.1 L RDW 16.4 H Plt Count 209 MPV 9.6 Absolute Nucleated RBC 0.000 Nucleated RBC % (auto) 0.0 POC Glucose <Hailey Roman PA-C - Last Filed: 02/19/24 08:54> Procedures Date of Service Date of Service: 02/19/24 <Hailey Roman PA-C - Last Filed: 02/19/24 08:54> 02/19/24 <Paul Thomas MD - Last Filed: 02/19/24 16:08> Progress Note: A&P Assessment and plan (1) SBO (small bowel obstruction): Status: Acute <Hailey Roman PA-C - Last Filed: 02/19/24 08:54> Assessment and Plan: s/p SB resection has been restless has been trying to pull out NGT good UO stable VS abd soft incision clean NGT output still significant await return of GI function - anticipate delayed return follow Hg - hold off on transfusion likely from perioperative fluid shifts discussed with Hospitalist - ?pneumonia seen and examined independently <Paul Thomas MD - Last Filed: 02/19/24 16:08> Assessment and Plan: Status post resection with long segment of ischemic small bowel Abd remains softly distended, benign, incision clean. NGT output downtrending, keep in place for now. May have prolonged return of GI function, await return. Cont IV fluids. WBC count now normalized. Hospitalist following. On IV abx for possible PNA. <Hailey Roman PA-C - Last Filed: 02/19/24 08:54> Time Spent With Patient Time: Total time managing care of this patient today ____ minutes. <Hailey Roman PA-C - Last Filed: 02/19/24 08:54> Quality Stroke Does the patient have a stroke diagnosis?: No <Hailey Roman PA-C - Last Filed: 02/19/24 08:54> VTE Prior VTE?: No <Hailey Roman PA-C - Last Filed: 02/19/24 08:54> VTE Risk Level:: Medical - moderate - high <Hailey Roman PA-C - Last Filed: 02/19/24 08:54> VTE Device Contraindication: N/A - Device Ordered <Hailey Roman PA-C - Last Filed: 02/19/24 08:54> VTE Drug Contraindication: N/A - Med Ordered <Hailey Roman PA-C - Last Filed: 02/19/24 08:54>
[2024-02-19 07:58] LABS: Anion Gap 10 (12-20); Blood Urea Nitrogen 15 mg/dL (9-16); Calcium 7.9 mg/dL (8.4-10.2); Carbon Dioxide 26 mmol/L (22-29); Chloride 117 mmol/L (96-108); Creatinine Clr Calc Pharmacy 142.5; Estimated Glomerular Filt Rate > 60; Glucose Random 67 mg/dL (60-115); Potassium 3.2 mmol/L (3.3-5.1); Sodium 150 mmol/L (135-145)
[2024-02-19] MEDS: Dextrose 5 % 1,000 ML 80 ML IVCONT ×2 (08:37→20:51)
[2024-02-19] MEDS: Potassium Chloride/H20 10 MEQ/100 ML PIGGYBACK 100 MEQ IV ×2 (08:37→09:37)
--- NOTE | 2024-02-19 10:53 | P.PNIM_ITS ---
Subjective Subjective Date of Service: 02/19/24 Interval History: pulled out NGT in afternoon, replaced and had bilious output overnight unable to obtain ROS due to mental status has sitter Review of Systems Review of Systems: Yes Unobtainable due to mental status Physical Exam 2 Vital Signs: Vital Signs: Last Vital Signs Temp 98.9 F 02/19/24 10:16 Pulse 78 02/19/24 10:16 Resp 20 02/19/24 10:16 BP 142/64 H 02/19/24 10:16 Pulse Ox 92 02/19/24 10:16 O2 Del Method Room Air 02/19/24 10:16 O2 Flow Rate 2 02/17/24 07:47 BMI result Body Mass Index 27.1 Gen: in no acute distress HEENT: sclera anicteric, moist mucus membranes Neck: supple Lungs: clear to auscultation bilaterally Heart: regular rate and rhythm, no murmurs Abd: distended, no bowel sounds, NGT with bilious output Ext: no edema Skin: warm/well-perfused Neuro: alert and oriented to self only, no focal weakness Psych: limited insight Objective Data Active Medications Albuterol/Ipratropium (Albuterol/Iprat 2.5/0.5mg 3 Ml Ampul.Neb) 3 ml INHALE RQ6H WHILE AWAKE [facility] Last Admin: 02/19/24 07:54 Dose: 3 ml Documented By: NASIM Fluticasone/Umeclidinium/Vilanterol (Fluticasone/Umeclidinium/Vilanterol 100/62.5/25 Blst.W.Dev) 1 puff INHALE RDAILY [facility] Last Admin: 02/19/24 07:54 Dose: 1 puff Documented By: NASIM Guaifenesin (Guaifenesin La 600 Mg Tab.Er.12h) 600 mg PO BID [facility] Last Admin: 02/19/24 07:10 Dose: Not Given Documented By: TIMOTHY Non-Admin Reason: NPO Heparin Sodium (Porcine) (Heparin Sodium,Porcine 5,000 Unit/Ml Vial) 5,000 unit SUBCUT Q12H [facility] Last Admin: 02/19/24 07:37 Dose: 5,000 unit Documented By: TIMOTHY Ceftriaxone Sodium 1 gm/ (Sodium Chloride) 50 mls @ 100 mls/hr IV Q24H [facility] Last Infusion: 02/18/24 13:48 Dose: Infused Documented By: YRN Dextrose (D10) 250 mls @ 750 mls/hr IV Q15M PRN PRN Reason: per Hypoglycemia Standing Ord. Last Infusion: 02/19/24 02:40 Dose: Infused Documented By: ANGELA Dextrose (D5w) 1,000 mls @ 80 mls/hr IVCONT .[id number] [facility] Stop: 02/20/24 08:14 Last Admin: 02/19/24 08:37 Dose: 80 mls/hr Documented By: TIMOTHY Insulin Glargine (Insulin Glargine,Hum.Rec.Anlog 100 Unit/Ml 10 Ml Vial) 10 unit SUBCUT BEDTIME [facility] Last Admin: 02/18/24 21:43 Dose: 5 unit Documented By: ANGELA Comments: MD schuler Insulin Human Lispro (Insulin Lispro 100 Unit/Ml 3 Ml Vial) 0 unit SUBCUT QIDACHS [facility]; Protocol Last Admin: 02/19/24 07:10 Dose: Not Given Documented By: TIMOTHY Non-Admin Reason: No Insulin Coverage Levothyroxine Sodium (Levothyroxine Sodium 100 Mcg/5 Ml Vial) 75 mcg IVPUSH DAILY@0600 [facility] Last Admin: 02/19/24 07:38 Dose: 75 mcg Documented By: TIMOTHY Morphine Sulfate (Morphine Sulfate 4 Mg/Ml Cartridge) 3 mg IVPUSH Q3H PRN; Protocol PRN Reason: Pain, Severe (Pain Scale 7-10) Last Admin: 02/19/24 07:52 Dose: 3 mg Documented By: TIMOTHY Olanzapine (Olanzapine 10 Mg Vial) 5 mg IM BEDTIME [facility] Last Admin: 02/18/24 21:42 Dose: 5 mg Documented By: ANGELA Ondansetron HCl (Ondansetron Hcl 4 Mg/2 Ml Vial) 4 mg IVPUSH Q8H PRN PRN Reason: Nausea and Vomiting Last Admin: 02/16/24 09:36 Dose: 4 mg Documented By: NEO Pantoprazole Sodium (Pantoprazole Sodium 40 Mg/10 Ml Vial) 20 mg IVPUSH DAILY [facility] Last Admin: 02/19/24 07:38 Dose: 20 mg Documented By: HO.COTEMA Sodium Chloride (0.9 % Sodium Chloride Flush 3 Ml Syringe) 3 ml IVFLUSH QSHIFT [facility] Last Admin: 02/19/24 07:12 Dose: Not Given Documented By: COTEMA Non-Admin Reason: IV Running Labs 02/19/24 07:06 02/19/24 07:06 Labs: Laboratory Results - last 24 hr 02/18/24 02/18/24 02/18/24 12:12 17:57 23:34 MCV MCH MCHC RDW Plt Count MPV Absolute Nucleated RBC Nucleated RBC % (auto) Anion Gap Estim Creat Clear Calc Estimated GFR POC Glucose 79 103 69 Random Glucose Calcium Procalcitonin 02/19/24 02/19/24 02/19/24 02:04 02:33 06:03 MCV MCH MCHC RDW Plt Count MPV Absolute Nucleated RBC Nucleated RBC % (auto) Anion Gap Estim Creat Clear Calc Estimated GFR POC Glucose 61 138 H 71 Random Glucose Calcium Procalcitonin 02/19/24 07:06 MCV 85.9 MCH 25.9 L MCHC 30.1 L RDW 16.4 H Plt Count 209 MPV 9.6 Absolute Nucleated RBC 0.000 Nucleated RBC % (auto) 0.0 Anion Gap 10 L Estim Creat Clear Calc 142.5 Estimated GFR > 60 POC Glucose Random Glucose 67 Calcium 7.9 L D Procalcitonin 0.10 Assessment and Plan (1) SBO (small bowel obstruction): Status: Acute (2) Hypoxia: Status: Acute Plan d5 58yo M with COPD, HTN, HLD, DM2, hypothyroidism, cognitive impairment presenting with abdominal pain and admitted to surgical service for SBO found to have ischemic small bowel, underwent laparotomy with resection of 2.2m small bowel + reanastomosis 02/16/24 medicine consult for management of comorbid conditions prerenal PHILIP hyperK - resolved after fluid repletion, insulin/dextrose hypoK - replete, recheck BMP in AM hyperNa - free water deficit of 1.9L, change IV fluids to D5W and recheck BMP in AM SBO - POD3, NGT in place, soft restraints as pt has pulled out NGT x3. If output decreases, Surgery to clamp acute hypoxic respiratory failure likely due to COPD but treated for possible PNA - ceftriaxone 02/15-02/18; d/c today as PCT low and BCx negative - continue nebulizer treatments + Trelegy inhaler - weaned off O2 acute blood loss anemia - monitor H+H daily, above transfusion threshold at this point HTN - atenolol on hold; if BP persistently elevated can give IV metoprolol HLD - atorvastatin on hold DM2 - basal-bolus insulin mood disorder - on IM olanzapine for now; holding PO fluphenazine + clozapine + gabapentin + lithium until taking POs; will need to consult Psych once able to restart clozapine re: titration hypothyroidism - continue LT4 but IV for now VTE ppx - UFH Thank you for this consultation. We will continue to follow the patient while they are admitted to your service. Total time managing care of this patient today: 40 minutes. Quality Stroke Does the patient have a stroke diagnosis?: No VTE Prior VTE?: No VTE Risk Level:: Medical - moderate - high VTE Device Contraindication: N/A - Device Ordered VTE Drug Contraindication: N/A - Med Ordered
[2024-02-19 11:36] LABS: Glucose, Whole Blood 103 mg/dL (60-115)
--- NOTE | 2024-02-19 14:05 | MHC.CLN ---
NUTRITION NUTRITION CONSULT FOR NPO STATUS. HAS NG TUBE FOR OUTPUT. TODAY IS DAY 5 NPO. COMMUNICATED WITH SURGERY AND PHARMACY. PLAN TO START PPN 02/19 WITH RECOMMENDATIONS: DAY 1 (02/19): PPN AT 50 ML PER HOUR; 51 G PROTEIN; 120 G DEXTROSE; 612 KCALS. REPLETE LYTES NEEDED. DAY 2 (02/20): PPN AT 70 ML PER HOUR; 71 G PROTEIN; 168 G DEXTROSE; 857 KCALS. REPLETE LYTES NEEDED. CHECK TRIGLYCERIDES. DAY 3 (02/21): ADVANCE TO MAX GOAL RATE PPN AT 90 ML PER HOUR; ADD 120 G LIPIDS (1.32 G/KG); 92 G PROTEIN (1 G/KG); 216 G DEXTROSE; 2302 TOTAL KCALS (25.4 KCALS/KG). REPLETE LYTES NEEDED. FOLLOW FOR GI FUNCTION/DIET ADVANCEMENT, PPN TOLERANCE, LABS.
--- NOTE | 2024-02-19 14:51 | MHC.CM.PN ---
Patient is not ready for discharge. He continues with NG tube. DP return to . .. will provide transportation home.
--- NOTE | 2024-02-19 16:06 | PM.EVENT ---
Event Note Date of Service: 02/20/24 Event Note: Seen on afternoon rounds Remains confused NG tube in place - much less output today Stable vital signs Abdomen very soft, benign Good urine output Keep NG tube in place for now, possibly clamp tomorrow Confusion likely metabolic from postop physiologic stress, fluid shifts He has baseline cognitive deficiencies from traumatic brain injury, schizophrenia Discussed with hospitalist Time Spent With Patient Time: Total time managing care of this patient today ____ minutes.
[2024-02-19 17:46] LABS: Glucose, Whole Blood 128 mg/dL (60-115)
[2024-02-19] MEDS: OLANZapine 10 MG VIAL 5 MG IM (20:49)
[2024-02-19] MEDS: 0.9 % Sodium Chloride Flush 3 ML SYRINGE IVFLUSH (20:59)
[2024-02-20] VITALS (13 sets, daily range): BP systolic 142–158; BP diastolic 63–74; PULSE 66–83; RESP 16–20; TEMP 36.4–37.4; O2SAT 90–100
[2024-02-20 00:11] LABS: Glucose, Whole Blood 131 mg/dL (60-115)
[2024-02-20] MEDS: Morphine Sulfate 4 MG/ML CARTRIDGE 3 MG IVPUSH ×3 (00:22→07:46)
[2024-02-20 00:34] LABS: Glucose, Whole Blood 130 mg/dL (60-115)
[2024-02-20] MEDS: Levothyroxine Sodium 100 MCG/5 ML VIAL 75 MCG IVPUSH (04:39)
[2024-02-20 06:05] LABS: Glucose, Whole Blood 153 mg/dL (60-115)
[2024-02-20 06:32] LABS: Hematocrit 29.8 % (42.0-52.0); Mean Corpuscular HGB Conc 30.2 g/dl (31.0-36.0); Mean Corpuscular Hemoglobin 25.9 pg (27.0-33.0); Mean Corpuscular Volume 85.6 fL (80.0-98.0); Mean Platelet Volume 9.4 fL (9.4-12.4); Platelet Count 240 X10*3/uL (160-400); Red Blood Count 3.48 X10*6/uL (4.60-5.80); White Blood Count 6.8 X10*3/uL (4.8-10.8)
[2024-02-20 06:39] LABS: Albumin Level 2.7 g/dL (3.5-5.0); Magnesium 1.8 mg/dL (1.6-2.6); Phosphorus 2.4 mg/dL (2.7-4.5); Triglycerides 148 mg/dL (<150)
[2024-02-20] MEDS: 0.9 % Sodium Chloride Flush 3 ML SYRINGE IVFLUSH (07:42)
[2024-02-20] MEDS: Pantoprazole Sodium 40 MG/10 ML VIAL 20 MG IVPUSH (07:43)
[2024-02-20 07:49] LABS: Anion Gap 10 (12-20)
[2024-02-20 07:51] LABS: Blood Urea Nitrogen 11 mg/dL (9-16); Carbon Dioxide 24 mmol/L (22-29); Chloride 113 mmol/L (96-108); Estimated Glomerular Filt Rate > 60; Glucose Random 166 mg/dL (60-115); Potassium 3.4 mmol/L (3.3-5.1); Sodium 144 mmol/L (135-145)
--- NOTE | 2024-02-20 08:41 | P.PNGS_ITS ---
Subjective Subjective Date of Service: 02/20/24 <Hailey Roman PA-C - Last Filed: 02/20/24 08:52> 02/20/24 <Paul Thomas MD - Last Filed: 02/20/24 09:41> Interval history: NGT output minimal over the past 2 days. RN reports bowel movement smearing overnight. <Hailey Roman PA-C - Last Filed: 02/20/24 08:52> Physical Exam 2 Vital Signs: Vital Signs: Last Vital Signs Temp 99.1 F 02/20/24 07:13 Pulse 74 02/20/24 07:13 Resp 20 02/20/24 07:46 BP 158/74 H 02/20/24 07:13 Pulse Ox 91 L 02/20/24 07:13 O2 Del Method Room Air 02/20/24 07:13 O2 Flow Rate 2 02/17/24 07:47 BMI result Body Mass Index 27.1 <Hailey Roman PA-C - Last Filed: 02/20/24 08:52> Resp: Effort & Inspection: normal respiratory effort <Hailey Roman PA-C - Last Filed: 02/20/24 08:52> GI: Inspection: Yes distended and Yes incision (clean, mild erythema at umbilicus ) <Hailey Roman PA-C - Last Filed: 02/20/24 08:52> Palpation (GI): Soft to palpation, nontender and no guarding <Hailey Roman PA-C - Last Filed: 02/20/24 08:52> Skin: General skin exam: no rashes or lesions noted <Hailey Roman PA-C - Last Filed: 02/20/24 08:52> Objective Data Active Medications Albuterol/Ipratropium (Albuterol/Iprat 2.5/0.5mg 3 Ml Ampul.Neb) 3 ml INHALE RQ6H WHILE AWAKE [facility] Last Admin: 02/20/24 08:13 Dose: Not Given Documented By: PATSY Non-Admin Reason: Patient Asleep Fluticasone/Umeclidinium/Vilanterol (Fluticasone/Umeclidinium/Vilanterol 100/62.5/25 Blst.W.Dev) 1 puff INHALE RDAILY [facility] Last Admin: 02/20/24 08:13 Dose: Not Given Documented By: PATSY Non-Admin Reason: Patient Asleep Guaifenesin (Guaifenesin La 600 Mg Tab.Er.12h) 600 mg PO BID [facility] Last Admin: 02/19/24 20:37 Dose: Not Given Documented By: AMERICA Non-Admin Reason: NPO Heparin Sodium (Porcine) (Heparin Sodium,Porcine 5,000 Unit/Ml Vial) 5,000 unit SUBCUT Q12H [facility] Last Admin: 02/19/24 20:53 Dose: 5,000 unit Documented By: AMERICA Dextrose (D10) 250 mls @ 750 mls/hr IV Q15M PRN PRN Reason: per Hypoglycemia Standing Ord. Last Infusion: 02/19/24 02:40 Dose: Infused Documented By: ANGELA Lactated Ringer's (Lr) 1,000 mls @ 100 mls/hr IVCONT .Q10H [facility] Insulin Glargine (Insulin Glargine,Hum.Rec.Anlog 100 Unit/Ml 10 Ml Vial) 10 unit SUBCUT BEDTIME [facility] Last Admin: 02/19/24 20:42 Dose: Not Given Documented By: AMERICA Non-Admin Reason: Physician Held Med Insulin Human Lispro (Insulin Lispro 100 Unit/Ml 3 Ml Vial) 0 unit SUBCUT QIDACHS [facility]; Protocol Last Admin: 02/20/24 08:28 Dose: Not Given Documented By: CIERA Non-Admin Reason: NPO Levothyroxine Sodium (Levothyroxine Sodium 100 Mcg/5 Ml Vial) 75 mcg IVPUSH DAILY@0600 [facility] Last Admin: 02/20/24 04:39 Dose: 75 mcg Documented By: AMERICA Morphine Sulfate (Morphine Sulfate 4 Mg/Ml Cartridge) 3 mg IVPUSH Q3H PRN; Protocol PRN Reason: Pain, Severe (Pain Scale 7-10) Last Admin: 02/20/24 07:46 Dose: 3 mg Documented By: CIERA Olanzapine (Olanzapine 10 Mg Vial) 5 mg IM BEDTIME [facility] Last Admin: 02/19/24 20:49 Dose: 5 mg Documented By: AMERICA Ondansetron HCl (Ondansetron Hcl 4 Mg/2 Ml Vial) 4 mg IVPUSH Q8H PRN PRN Reason: Nausea and Vomiting Last Admin: 02/16/24 09:36 Dose: 4 mg Documented By: NEO Pantoprazole Sodium (Pantoprazole Sodium 40 Mg/10 Ml Vial) 20 mg IVPUSH DAILY [facility] Last Admin: 02/20/24 07:43 Dose: 20 mg Documented By: CIERA Sodium Chloride (0.9 % Sodium Chloride Flush 3 Ml Syringe) 3 ml IVFLUSH QSHIFT [facility] Last Admin: 02/20/24 07:30 Dose: Not Given Documented By: CIERA Non-Admin Reason: IV Running <Hailey Roman PA-C - Last Filed: 02/20/24 08:52> Labs CBC & Chem 7: 02/20/24 06:15 02/20/24 06:15 <Hailey Roman PA-C - Last Filed: 02/20/24 08:52> Labs: Laboratory Results - last 24 hr 02/19/24 02/19/24 02/19/24 11:24 17:42 20:33 MCV MCH MCHC RDW Plt Count MPV Absolute Nucleated RBC Nucleated RBC % (auto) Anion Gap Estim Creat Clear Calc Estimated GFR POC Glucose 103 128 H 130 H Random Glucose Calcium Phosphorus Magnesium Albumin Triglycerides Blood Type Antibody Screen 02/20/24 02/20/24 02/20/24 00:06 05:58 06:15 MCV 85.6 MCH 25.9 L MCHC 30.2 L RDW 16.0 Plt Count 240 MPV 9.4 Absolute Nucleated RBC 0.000 Nucleated RBC % (auto) 0.0 Anion Gap Cancelled Estim Creat Clear Calc Estimated GFR POC Glucose 131 H 153 H Random Glucose Calcium Phosphorus Magnesium Albumin Triglycerides Blood Type Antibody Screen 02/20/24 02/20/24 02/20/24 06:15 06:15 06:15 MCV MCH MCHC RDW Plt Count MPV Absolute Nucleated RBC Nucleated RBC % (auto) Anion Gap 10 L Estim Creat Clear Calc Cancelled 138.0 Estimated GFR Cancelled > 60 POC Glucose Random Glucose Cancelled Calcium Phosphorus Magnesium Albumin Triglycerides Blood Type Antibody Screen 02/20/24 02/20/24 02/20/24 06:15 06:15 06:49 MCV MCH MCHC RDW Plt Count MPV Absolute Nucleated RBC Nucleated RBC % (auto) Anion Gap Estim Creat Clear Calc Estimated GFR POC Glucose Random Glucose 166 H Calcium Cancelled 8.0 L Phosphorus 2.4 L Magnesium 1.8 Albumin 2.7 L Triglycerides 148 Blood Type A Negative Antibody Screen NEGATIVE <Hailey Roman PA-C - Last Filed: 02/20/24 08:52> Procedures Date of Service Date of Service: 02/20/24 <Hailey Roman PA-C - Last Filed: 02/20/24 08:52> 02/20/24 <Paul Thomas MD - Last Filed: 02/20/24 09:41> Progress Note: A&P Assessment and plan (1) SBO (small bowel obstruction): Status: Acute <Hailey Roman PA-C - Last Filed: 02/20/24 08:52> Assessment and Plan: seems a little more alert Still restless No significant NG tube output overnight Abdomen soft, benign, no obvious significant tenderness Clamp NG tube likely DC later on Seen and examined independently Hospitalist following Still no success with contacting healthcare proxy <Paul Thomas MD - Last Filed: 02/20/24 09:41> Assessment and Plan: Status post resection with long segment of ischemic small bowel Abd remains softly distended, benign, incision clean. NGT output has remained minimal for 2 days, tube clamped this morning. Check residual in 4 hrs, unclamp sooner if develops worsening distention, nausea or vomiting. Cont IV fluids, begin PPN. WBC count now normalized. Hospitalist following. On IV abx for possible PNA. <Hailey Roman PA-C - Last Filed: 02/20/24 08:52> Time Spent With Patient Time: Total time managing care of this patient today ____ minutes. <Hailey Roman PA-C - Last Filed: 02/20/24 08:52> Quality Stroke Does the patient have a stroke diagnosis?: No <Hailey oRman PA-C - Last Filed: 02/20/24 08:52> VTE Prior VTE?: No <MORAIMA Bright Last Filed: 02/20/24 08:52> VTE Risk Level:: Medical - moderate - high <Hailey Roman PA-C - Last Filed: 02/20/24 08:52> VTE Device Contraindication: N/A - Device Ordered <Hailey Roman PA-C - Last Filed: 02/20/24 08:52> VTE Drug Contraindication: N/A - Med Ordered <Hailey Roman PA-C - Last Filed: 02/20/24 08:52>
[2024-02-20] MEDS: Lactated Ringers 1,000 ML 100 ML IVCONT ×2 (09:16→18:33)
--- NOTE | 2024-02-20 09:49 | MHC.CLN ---
F/U PT WITH NG TUBE FOR OUTPUT TODAY IS DAY 6 NPO REVIEWED LABS DISCUSSED WITH PHARMACY RECOMMEND PPN AT 50 ML PER HOUR TO PROVIDE 612KCALS, 51 G PROTEIN, 120 G DEXTROSE REPLETE LYTES NEEDED
[2024-02-20 10:04] LABS: Albumin Level 2.6 g/dL (3.5-5.0)
[2024-02-20 10:57] LABS: C Reactive Protein 4.39 mg/dL (< or = 0.50)
[2024-02-20] MEDS: Heparin Sodium,Porcine 5,000 UNIT/ML VIAL 5000 UNIT SUBCUT ×2 (12:04→22:25)
[2024-02-20 12:16] LABS: Glucose, Whole Blood 133 mg/dL (60-115)
--- NOTE | 2024-02-20 12:48 | HO.PM.IMPN ---
Subjective Subjective Date of Service: 02/20/24 Interval History: NGT minimal output started on PPN Review of Systems Review of Systems: Yes Unobtainable due to mental status Physical Exam Vital Signs: Vital Signs: Last Vital Signs Temp 98.7 F 02/20/24 12:00 Pulse 66 02/20/24 12:00 Resp 18 02/20/24 12:00 BP 149/72 H 02/20/24 12:00 Pulse Ox 93 02/20/24 12:00 O2 Del Method Room Air 02/20/24 12:00 O2 Flow Rate 2 02/17/24 07:47 BMI result Body Mass Index 27.1 Gen: in no acute distress HEENT: sclera anicteric, moist mucus membranes Neck: supple Lungs: clear to auscultation bilaterally Heart: regular rate and rhythm, no murmurs Abd: distended, wound with kelli intact, NGT with minimal bilious output Ext: no edema Skin: warm/well-perfused Neuro: alert and oriented to self only, no focal weakness Psych: limited insight Objective Data Active Medications Albuterol/Ipratropium (Albuterol/Iprat 2.5/0.5mg 3 Ml Ampul.Neb) 3 ml INHALE RQ6H WHILE AWAKE [facility] Last Admin: 02/20/24 08:13 Dose: Not Given Documented By: PATSY Non-Admin Reason: Patient Asleep Fluticasone/Umeclidinium/Vilanterol (Fluticasone/Umeclidinium/Vilanterol 100/62.5/25 Blst.W.Dev) 1 puff INHALE RDAILY [facility] Last Admin: 02/20/24 08:13 Dose: Not Given Documented By: PATSY Non-Admin Reason: Patient Asleep Guaifenesin (Guaifenesin La 600 Mg Tab.Er.12h) 600 mg PO BID [facility] Last Admin: 02/20/24 09:17 Dose: Not Given Documented By: CIERA Non-Admin Reason: NPO Heparin Sodium (Porcine) (Heparin Sodium,Porcine 5,000 Unit/Ml Vial) 5,000 unit SUBCUT Q12H [facility] Last Admin: 02/20/24 12:04 Dose: 5,000 unit Documented By: CIERA Dextrose (D10) 250 mls @ 750 mls/hr IV Q15M PRN PRN Reason: per Hypoglycemia Standing Ord. Last Infusion: 02/19/24 02:40 Dose: Infused Documented By: ANGELA Lactated Ringer's (Lr) 1,000 mls @ 100 mls/hr IVCONT .Q10H [facility] Last Admin: 02/20/24 09:16 Dose: 100 mls/hr Documented By: CIERA Nutrition (Parenteral) (Parenteral Nutrition) 1,200 mls @ 50 mls/hr IV .Q24H [facility]; Protocol Stop: 02/21/24 20:59 Insulin Glargine (Insulin Glargine,Hum.Rec.Anlog 100 Unit/Ml 10 Ml Vial) 10 unit SUBCUT BEDTIME [facility] Last Admin: 02/19/24 20:42 Dose: Not Given Documented By: AMERICA Non-Admin Reason: Physician Held Med Insulin Human Lispro (Insulin Lispro 100 Unit/Ml 3 Ml Vial) 0 unit SUBCUT QIDACHS [facility]; Protocol Last Admin: 02/20/24 12:19 Dose: Not Given Documented By: CIERA Non-Admin Reason: No Insulin Coverage Levothyroxine Sodium (Levothyroxine Sodium 100 Mcg/5 Ml Vial) 75 mcg IVPUSH DAILY@0600 [facility] Last Admin: 02/20/24 04:39 Dose: 75 mcg Documented By: AMERICA Morphine Sulfate (Morphine Sulfate 4 Mg/Ml Cartridge) 3 mg IVPUSH Q3H PRN; Protocol PRN Reason: Pain, Severe (Pain Scale 7-10) Last Admin: 02/20/24 07:46 Dose: 3 mg Documented By: CIERA Olanzapine (Olanzapine 10 Mg Vial) 5 mg IM BEDTIME [facility] Last Admin: 02/19/24 20:49 Dose: 5 mg Documented By: AMERICA Ondansetron HCl (Ondansetron Hcl 4 Mg/2 Ml Vial) 4 mg IVPUSH Q8H PRN PRN Reason: Nausea and Vomiting Last Admin: 02/16/24 09:36 Dose: 4 mg Documented By: NEO Pantoprazole Sodium (Pantoprazole Sodium 40 Mg/10 Ml Vial) 20 mg IVPUSH DAILY [facility] Last Admin: 02/20/24 07:43 Dose: 20 mg Documented By: CIERA Pharmacy Consult (Consult Rx Parenteral Nutrition Ordering) 1 each MISCELLANE DAILY PRN PRN Reason: Consult order Sodium Chloride (0.9 % Sodium Chloride Flush 3 Ml Syringe) 3 ml IVFLUSH QSHIFT [facility] Last Admin: 02/20/24 07:30 Dose: Not Given Documented By: CIERA Non-Admin Reason: IV Running Labs 02/20/24 06:15 02/20/24 06:15 Labs: Laboratory Results - last 24 hr 02/19/24 02/19/24 02/20/24 17:42 20:33 00:06 MCV MCH MCHC RDW Plt Count MPV Absolute Nucleated RBC Nucleated RBC % (auto) Hold Purple Top Anion Gap Estim Creat Clear Calc Estimated GFR POC Glucose 128 H 130 H 131 H Random Glucose Calcium Phosphorus Magnesium C-Reactive Protein Albumin Triglycerides Blood Type Antibody Screen 02/20/24 02/20/24 02/20/24 05:58 06:15 06:15 MCV 85.6 MCH 25.9 L MCHC 30.2 L RDW 16.0 Plt Count 240 MPV 9.4 Absolute Nucleated RBC 0.000 Nucleated RBC % (auto) 0.0 Hold Purple Top Anion Gap Cancelled 10 L Estim Creat Clear Calc Cancelled Estimated GFR POC Glucose 153 H Random Glucose Calcium Phosphorus Magnesium C-Reactive Protein Albumin Triglycerides Blood Type Antibody Screen 02/20/24 02/20/24 02/20/24 06:15 06:15 06:15 MCV MCH MCHC RDW Plt Count MPV Absolute Nucleated RBC Nucleated RBC % (auto) Hold Purple Top Anion Gap Estim Creat Clear Calc 138.0 Estimated GFR Cancelled > 60 POC Glucose Random Glucose Cancelled 166 H Calcium Cancelled Phosphorus Magnesium C-Reactive Protein Albumin Triglycerides Blood Type Antibody Screen 02/20/24 02/20/24 02/20/24 06:15 06:49 09:28 MCV MCH MCHC RDW Plt Count MPV Absolute Nucleated RBC Nucleated RBC % (auto) Hold Purple Top SEE NOTE Anion Gap Estim Creat Clear Calc Estimated GFR POC Glucose Random Glucose Calcium 8.0 L Phosphorus 2.4 L Magnesium 1.8 C-Reactive Protein 4.39 H Albumin 2.7 L 2.6 L Triglycerides 148 Blood Type A Negative Antibody Screen NEGATIVE 02/20/24 12:08 MCV MCH MCHC RDW Plt Count MPV Absolute Nucleated RBC Nucleated RBC % (auto) Hold Purple Top Anion Gap Estim Creat Clear Calc Estimated GFR POC Glucose 133 H Random Glucose Calcium Phosphorus Magnesium C-Reactive Protein Albumin Triglycerides Blood Type Antibody Screen Assessment and Plan (1) SBO (small bowel obstruction): Status: Acute (2) Hypoxia: Status: Acute Plan d6 58yo M with COPD, HTN, HLD, DM2, hypothyroidism, cognitive impairment presenting with abdominal pain and admitted to surgical service for SBO found to have ischemic small bowel, underwent laparotomy with resection of 2.2m small bowel + reanastomosis 02/16/24 medicine consult for management of comorbid conditions prerenal PHILIP hyperK - resolved after fluid repletion, insulin/dextrose hypoK - repleted hyperNa - free water deficit repleted, changed D5W to LR SBO - POD4, NGT in place, soft restraints as pt has pulled out NGT x3. If output decreases, Surgery to clamp acute hypoxic respiratory failure likely due to COPD but treated for possible PNA - ceftriaxone 02/15-02/18; PCT low and BCx negative so ABX stopped - continue nebulizer treatments + Trelegy inhaler - weaned off O2 acute blood loss anemia - monitor H+H daily, above transfusion threshold at this point HTN - atenolol on hold; if BP persistently elevated can give IV metoprolol HLD - atorvastatin on hold DM2 - basal-bolus insulin mood disorder - on IM olanzapine for now; holding PO fluphenazine + clozapine + gabapentin + lithium until taking POs; will need to consult Psych once able to restart clozapine re: titration hypothyroidism - continue LT4 but IV for now VTE ppx - UFH Thank you for this consultation. We will continue to follow the patient while they are admitted to your service. Total time managing care of this patient today: 35 minutes. Quality Stroke Does the patient have a stroke diagnosis?: No VTE Prior VTE?: No VTE Risk Level:: Medical - moderate - high VTE Device Contraindication: N/A - Device Ordered VTE Drug Contraindication: N/A - Med Ordered
--- NOTE | 2024-02-20 13:24 | PM.EVENT ---
Event Note Date of Service: 02/20/24 Event Note: Does not appear to be in pain NG tube has been clamped since before 08:00 o'clock No vomiting I reconnected the NG tube to low wall suction and there was minimal output Abdomen remained soft, benign, no obvious guarding tenderness I therefore pulled out the NG tube He can have ice chips and sips of clear Seems to be coming along well postop from surgical standpoint He had lip smacking and some protrusion movements earlier as well as yesterday likely due to intake of schizophrenia meds Time Spent With Patient Time: Total time managing care of this patient today ____ minutes.
[2024-02-20] MEDS: Albuterol/Iprat 2.5/0.5MG 3 ML AMPUL.NEB INHALE ×2 (15:29→19:41)
[2024-02-20 18:29] LABS: Glucose, Whole Blood 106 mg/dL (60-115)
[2024-02-20] MEDS: Parenteral Nutrition 1,200 ML 50 ML IV (22:20)
[2024-02-20] MEDS: Insulin Glargine,Hum.rec.anlog 100 UNIT/ML 10 ML VIAL 10 UNIT SUBCUT (22:22)
[2024-02-20] MEDS: fluPHENAZine HCl 1 MG TABLET PO (22:25)
[2024-02-20] MEDS: Lithium Carbonate ER 450 MG TABLET.ER PO (22:25)
[2024-02-20] MEDS: guaiFENesin LA 600 MG TAB.ER.12H PO (22:25)
[2024-02-20] MEDS: Atorvastatin Calcium 40 MG TABLET PO (22:25)
[2024-02-20] MEDS: Gabapentin 600 MG TABLET PO (22:25)
[2024-02-20] MEDS: Tamsulosin HCL 0.4 MG CAPSULE PO (22:26)
--- NOTE | 2024-02-20 22:54 | MHC.PIE ---
p; parenteral nutrition to start at 50ml. note; pt has LR at 100 at this time, pharmacy notified, LR not compatible with parenteral. note; pt confused and agressive, was on restrain on earlier shift and needs one to one sitter at this time i; dr wang notified. hold LR e; will cont to monitor
[2024-02-21] VITALS (9 sets, daily range): BP systolic 102–162; BP diastolic 53–70; PULSE 62–83; RESP 12–20; TEMP 36.1–36.7; O2SAT 91–98
[2024-02-21 00:15] LABS: Glucose, Whole Blood 122 mg/dL (60-115)
[2024-02-21] MEDS: Levothyroxine Sodium 150 MCG TABLET PO (05:40)
[2024-02-21 05:46] LABS: Glucose, Whole Blood 87 mg/dL (60-115)
[2024-02-21 06:14] LABS: Albumin Level 2.6 g/dL (3.5-5.0); Anion Gap 9 (12-20); Blood Urea Nitrogen 10 mg/dL (9-16); Calcium 8.1 mg/dL (8.4-10.2); Carbon Dioxide 25 mmol/L (22-29); Chloride 113 mmol/L (96-108); Estimated Glomerular Filt Rate > 60; Glucose Random 94 mg/dL (60-115); Magnesium 1.9 mg/dL (1.6-2.6); Phosphorus 2.9 mg/dL (2.7-4.5); Potassium 3.3 mmol/L (3.3-5.1); Sodium 144 mmol/L (135-145)
[2024-02-21] MEDS: Albuterol/Iprat 2.5/0.5MG 3 ML AMPUL.NEB INHALE ×3 (07:37→19:18)
[2024-02-21] MEDS: Fluticasone/Umeclidinium/Vilanterol 100/62.5/25 BLST.W.DEV 1 PUFF INHALE (07:37)
[2024-02-21 07:39] LABS: Glucose, Whole Blood 100 mg/dL (60-115)
--- NOTE | 2024-02-21 08:15 | PM.PNGS ---
Subjective Subjective Date of Service: 02/24/24 Interval history: No events reported overnight NG tube removed yesterday No vomiting Seems to be more alert and comfortable today Says he wants pudding Physical Exam Vital Signs: Vital Signs: Last Vital Signs Temp 97.5 F 02/21/24 07:51 Pulse 74 02/21/24 07:51 Resp 12 02/21/24 07:51 BP 162/70 H 02/21/24 07:51 Pulse Ox 97 02/21/24 07:51 O2 Del Method Room Air 02/21/24 07:51 O2 Flow Rate 2 02/17/24 07:47 BMI result Body Mass Index 27.1 Const: Other: More alert and answering questions General: comfortable and no acute distress Resp: Effort & Inspection: normal respiratory effort GI: Other: Incision clean and dry Palpation (GI): Soft to palpation, not firm and no guarding Objective Data Active Medications Albuterol Sulfate (Albuterol Sulfate 90 Mcg 8 Gm Inhaler) 1 puff INHALE RQ6H PRN PRN Reason: Shortness Of Breath Albuterol/Ipratropium (Albuterol/Iprat 2.5/0.5mg 3 Ml Ampul.Neb) 3 ml INHALE RQ6H WHILE AWAKE [facility] Last Admin: 02/21/24 07:37 Dose: 3 ml Documented By: GISSEL Artificial Tears (Artificial Tears 15 Ml Drops) 1 drop EYE-BOTH DAILY [facility] Atenolol (Atenolol 25 Mg Tablet) 25 mg PO DAILY [facility]; Protocol Atorvastatin Calcium (Atorvastatin Calcium 40 Mg Tablet) 40 mg PO BEDTIME [facility] Last Admin: 02/20/24 22:25 Dose: 40 mg Documented By: CHA Fluphenazine HCl (Fluphenazine Hcl 1 Mg Tablet) 1 mg PO BEDTIME [facility] Last Admin: 02/20/24 22:25 Dose: 1 mg Documented By: CHA Fluticasone Propionate (Fluticasone Propionate Nasal 16 Gm [place]) 1 spray NOSTRIL-B DAILY [facility] Fluticasone/Umeclidinium/Vilanterol (Fluticasone/Umeclidinium/Vilanterol 100/62.5/25 Blst.W.Dev) 1 puff INHALE RDAILY [facility] Last Admin: 02/21/24 07:37 Dose: 1 puff Documented By: GISSEL Gabapentin (Gabapentin 600 Mg Tablet) 600 mg PO TID [facility] Last Admin: 02/20/24 22:25 Dose: 600 mg Documented By: CHA Guaifenesin (Guaifenesin La 600 Mg Tab.Er.12h) 600 mg PO BID [facility] Last Admin: 02/20/24 22:25 Dose: 600 mg Documented By: CHA Heparin Sodium (Porcine) (Heparin Sodium,Porcine 5,000 Unit/Ml Vial) 5,000 unit SUBCUT Q12H [facility] Last Admin: 02/20/24 22:25 Dose: 5,000 unit Documented By: CHA Dextrose (D10) 250 mls @ 750 mls/hr IV Q15M PRN PRN Reason: per Hypoglycemia Standing Ord. Last Infusion: 02/19/24 02:40 Dose: Infused Documented By: ANGELA Lactated Ringer's (Lr) 1,000 mls @ 100 mls/hr IVCONT .Q10H [facility] Last Admin: 02/21/24 02:51 Dose: Not Given Documented By: CHA Non-Admin Reason: Physician Held Med Comments: per dr wang, hold lr and give tpn Nutrition (Parenteral) (Parenteral Nutrition) 1,200 mls @ 50 mls/hr IV .Q24H [facility]; Protocol Stop: 02/21/24 20:59 Last Admin: 02/20/24 22:20 Dose: 50 mls/hr Documented By: CHA Insulin Glargine (Insulin Glargine,Hum.Rec.Anlog 100 Unit/Ml 10 Ml Vial) 10 unit SUBCUT BEDTIME [facility] Last Admin: 02/20/24 22:22 Dose: 10 unit Documented By: CHA Insulin Human Lispro (Insulin Lispro 100 Unit/Ml 3 Ml Vial) 0 unit SUBCUT Q6H [facility]; Protocol Last Admin: 02/21/24 05:43 Dose: Not Given Documented By: CHA Non-Admin Reason: No Insulin Coverage Levothyroxine Sodium (Levothyroxine Sodium 150 Mcg Tablet) 150 mcg PO DAILY@0600 [facility] Last Admin: 02/21/24 05:40 Dose: 150 mcg Documented By: CHA [place] Carbonate ([place] Carbonate Er 450 Mg Tablet.Er) 450 mg PO BID [facility] Last Admin: 02/20/24 22:25 Dose: 450 mg Documented By: CHA Loratadine (Loratadine 10 Mg Tablet) 10 mg PO DAILY [facility] Morphine Sulfate (Morphine Sulfate 4 Mg/Ml Cartridge) 3 mg IVPUSH Q3H PRN; Protocol PRN Reason: Pain, Severe (Pain Scale 7-10) Last Admin: 02/20/24 07:46 Dose: 3 mg Documented By: CIERA Ondansetron HCl (Ondansetron Hcl 4 Mg/2 Ml Vial) 4 mg IVPUSH Q8H PRN PRN Reason: Nausea and Vomiting Last Admin: 02/16/24 09:36 Dose: 4 mg Documented By: NEO Pantoprazole Sodium (Pantoprazole Sodium 40 Mg/10 Ml Vial) 20 mg IVPUSH DAILY [facility] Last Admin: 02/20/24 07:43 Dose: 20 mg Documented By: CIERA Pharmacy Consult (Consult Rx Parenteral Nutrition Ordering) 1 each MISCELLANE DAILY PRN PRN Reason: Consult order Sodium Chloride (0.9 % Sodium Chloride Flush 3 Ml Syringe) 3 ml IVFLUSH QSHIFT [facility] Last Admin: 02/21/24 07:43 Dose: Not Given Documented By: CIERA Non-Admin Reason: IV Running Tamsulosin HCl (Tamsulosin Hcl 0.4 Mg Capsule) 0.4 mg PO BEDTIME [facility] Last Admin: 02/20/24 22:26 Dose: 0.4 mg Documented By: CHA Labs 02/22/24 06:18 02/24/24 05:45 Labs: Laboratory Results - last 24 hr 02/20/24 02/20/24 02/20/24 06:15 09:28 12:08 Hold Purple Top SEE NOTE Anion Gap Estim Creat Clear Calc Estimated GFR POC Glucose 133 H Random Glucose Calcium Phosphorus Magnesium C-Reactive Protein 4.39 H Albumin 2.6 L 02/20/24 02/21/24 02/21/24 18:25 00:09 05:20 Hold Purple Top SEE NOTE Anion Gap 9 L Estim Creat Clear Calc 155.0 Estimated GFR > 60 POC Glucose 106 122 H Random Glucose 94 Calcium 8.1 L Phosphorus 2.9 Magnesium 1.9 C-Reactive Protein Albumin 2.6 L 02/21/24 02/21/24 05:39 07:31 Hold Purple Top Anion Gap Estim Creat Clear Calc Estimated GFR POC Glucose 87 100 Random Glucose Calcium Phosphorus Magnesium C-Reactive Protein Albumin Microbiology Microbiology Results: Microbiology 02/15/24 13:38 Blood Culture - Final Blood - Venous No growth after 5 days. 02/15/24 13:38 Blood Culture - Final Blood - Venous No growth after 5 days. Procedures Date of Service Date of Service: 02/24/24 Progress Note: A&P Assessment and plan (1) SBO (small bowel obstruction): Status: Acute Assessment and Plan: Status post resection of 220 cm of twisted small bowel Looks well Appears comfortable Abdomen soft and benign More alert today Okay to try full liquids He has a history of traumatic brain injury and schizophrenia and has some cognitive limitations Time Spent With Patient Time: Total time managing care of this patient today ____ minutes. Quality Stroke Does the patient have a stroke diagnosis?: No VTE Prior VTE?: No VTE Risk Level:: Medical - moderate - high VTE Device Contraindication: N/A - Device Ordered VTE Drug Contraindication: N/A - Med Ordered
[2024-02-21] MEDS: Lithium Carbonate ER 450 MG TABLET.ER PO ×2 (09:02→19:43)
[2024-02-21] MEDS: atenoloL 25 MG TABLET PO (09:09)
[2024-02-21] MEDS: Gabapentin 600 MG TABLET PO ×3 (09:09→19:43)
[2024-02-21] MEDS: guaiFENesin LA 600 MG TAB.ER.12H PO ×2 (09:09→19:43)
[2024-02-21] MEDS: Loratadine 10 MG TABLET PO (09:10)
[2024-02-21] MEDS: Heparin Sodium,Porcine 5,000 UNIT/ML VIAL 5000 UNIT SUBCUT ×2 (09:10→21:55)
[2024-02-21] MEDS: Pantoprazole Sodium 40 MG/10 ML VIAL 20 MG IVPUSH (09:11)
[2024-02-21] MEDS: Artificial Tears 15 ML DROPS 1 DROP EYE-BOTH (09:16)
[2024-02-21] MEDS: Fluticasone Propionate Nasal 16 GM SPRAY 1 SPRAY NOSTRIL-B (09:16)
--- NOTE | 2024-02-21 10:35 | MHC.CLN ---
F/U NG TUBE REMOVED AND DIET ADVANCED TO FULL LIQUIDS. HAD BEEN NPO SINCE 02/14. PPN STARTED 02/19. CONTINUE PPN. LABS REVIEWED. COMMUNICATED WITH PHARMACY. RECOMMEND ADVANCE PPN TO: PPN AT 70 ML PER HOUR; 71 G PROTEIN; 168 G DEXTROSE; 857 KCALS. REPLETE LYTES NEEDED. CHECK TRIGLYCERIDES. DAY 3 (02/21): ADVANCE TO MAX GOAL RATE PPN AT 90 ML PER HOUR; ADD 120 G LIPIDS (1.32 G/KG); 92 G PROTEIN (1 G/KG); 216 G DEXTROSE; 2302 TOTAL KCALS (25.4 KCALS/KG). REPLETE LYTES NEEDED. FOLLOW FOR GI FUNCTION/DIET ADVANCEMENT, PPN TOLERANCE, LABS.
--- NOTE | 2024-02-21 10:53 | HO.PM.IMPN ---
Subjective Subjective Date of Service: 02/21/24 Interval History: NGT out yesterday much more awake denies abd pain passing gas Review of Systems Review of Systems: Yes all other systems are reviewed and are negative Physical Exam Vital Signs: Vital Signs: Last Vital Signs Temp 97.5 F 02/21/24 07:51 Pulse 74 02/21/24 07:51 Resp 12 02/21/24 07:51 BP 162/70 H 02/21/24 07:51 Pulse Ox 97 02/21/24 07:51 O2 Del Method Room Air 02/21/24 07:51 O2 Flow Rate 2 02/17/24 07:47 BMI result Body Mass Index 27.1 Gen: in no acute distress HEENT: sclera anicteric, moist mucus membranes Neck: supple Lungs: clear to auscultation bilaterally Heart: regular rate and rhythm, no murmurs Abd: soft, bowel sounds present, midline laparotomy incision with kelli intact Ext: no edema Skin: warm/well-perfused Neuro: alert and oriented to self only, no focal weakness Psych: limited insight Objective Data Active Medications Albuterol Sulfate (Albuterol Sulfate 90 Mcg 8 Gm Inhaler) 1 puff INHALE RQ6H PRN PRN Reason: Shortness Of Breath Albuterol/Ipratropium (Albuterol/Iprat 2.5/0.5mg 3 Ml Ampul.Neb) 3 ml INHALE RQ6H WHILE AWAKE [facility] Last Admin: 02/21/24 07:37 Dose: 3 ml Documented By: GISSEL Artificial Tears (Artificial Tears 15 Ml Drops) 1 drop EYE-BOTH DAILY [facility] Last Admin: 02/21/24 09:16 Dose: 1 drop Documented By: CIERA Atenolol (Atenolol 25 Mg Tablet) 25 mg PO DAILY [facility]; Protocol Last Admin: 02/21/24 09:09 Dose: 25 mg Documented By: CIERA Atorvastatin Calcium (Atorvastatin Calcium 40 Mg Tablet) 40 mg PO BEDTIME [facility] Last Admin: 02/20/24 22:25 Dose: 40 mg Documented By: CHA Fluphenazine HCl (Fluphenazine Hcl 1 Mg Tablet) 1 mg PO BEDTIME [facility] Last Admin: 02/20/24 22:25 Dose: 1 mg Documented By: CHA Fluticasone Propionate (Fluticasone Propionate Nasal 16 Gm [place]) 1 spray NOSTRIL-B DAILY [facility] Last Admin: 02/21/24 09:16 Dose: 1 spray Documented By: CIERA Fluticasone/Umeclidinium/Vilanterol (Fluticasone/Umeclidinium/Vilanterol 100/62.5/25 Blst.W.Dev) 1 puff INHALE RDAILY [facility] Last Admin: 02/21/24 07:37 Dose: 1 puff Documented By: GISSEL Gabapentin (Gabapentin 600 Mg Tablet) 600 mg PO TID [facility] Last Admin: 02/21/24 09:09 Dose: 600 mg Documented By: CIERA Guaifenesin (Guaifenesin La 600 Mg Tab.Er.12h) 600 mg PO BID [facility] Last Admin: 02/21/24 09:09 Dose: 600 mg Documented By: CIERA Heparin Sodium (Porcine) (Heparin Sodium,Porcine 5,000 Unit/Ml Vial) 5,000 unit SUBCUT Q12H [facility] Last Admin: 02/21/24 09:10 Dose: 5,000 unit Documented By: CIERA Dextrose (D10) 250 mls @ 750 mls/hr IV Q15M PRN PRN Reason: per Hypoglycemia Standing Ord. Last Infusion: 02/19/24 02:40 Dose: Infused Documented By: ANGELA Lactated Ringer's (Lr) 1,000 mls @ 100 mls/hr IVCONT .Q10H [facility] Last Admin: 02/21/24 02:51 Dose: Not Given Documented By: CHA Non-Admin Reason: Physician Held Med Comments: per dr wang, hold lr and give tpn Nutrition (Parenteral) (Parenteral Nutrition) 1,200 mls @ 50 mls/hr IV .Q24H [facility]; Protocol Stop: 02/21/24 20:59 Last Admin: 02/20/24 22:20 Dose: 50 mls/hr Documented By: CHA Insulin Glargine (Insulin Glargine,Hum.Rec.Anlog 100 Unit/Ml 10 Ml Vial) 10 unit SUBCUT BEDTIME [facility] Last Admin: 02/20/24 22:22 Dose: 10 unit Documented By: CHA Insulin Human Lispro (Insulin Lispro 100 Unit/Ml 3 Ml Vial) 0 unit SUBCUT Q6H [facility]; Protocol Last Admin: 02/21/24 05:43 Dose: Not Given Documented By: CHA Non-Admin Reason: No Insulin Coverage Levothyroxine Sodium (Levothyroxine Sodium 150 Mcg Tablet) 150 mcg PO DAILY@0600 [facility] Last Admin: 02/21/24 05:40 Dose: 150 mcg Documented By: CHA [place] Carbonate ([place] Carbonate Er 450 Mg Tablet.Er) 450 mg PO BID [facility] Last Admin: 02/21/24 09:02 Dose: 450 mg Documented By: CIERA Loratadine (Loratadine 10 Mg Tablet) 10 mg PO DAILY [facility] Last Admin: 02/21/24 09:10 Dose: 10 mg Documented By: CIERA Morphine Sulfate (Morphine Sulfate 4 Mg/Ml Cartridge) 3 mg IVPUSH Q3H PRN; Protocol PRN Reason: Pain, Severe (Pain Scale 7-10) Last Admin: 02/20/24 07:46 Dose: 3 mg Documented By: CIERA Ondansetron HCl (Ondansetron Hcl 4 Mg/2 Ml Vial) 4 mg IVPUSH Q8H PRN PRN Reason: Nausea and Vomiting Last Admin: 02/16/24 09:36 Dose: 4 mg Documented By: NEO Pantoprazole Sodium (Pantoprazole Sodium 40 Mg/10 Ml Vial) 20 mg IVPUSH DAILY [facility] Last Admin: 02/21/24 09:11 Dose: 20 mg Documented By: CIERA Pharmacy Consult (Consult Rx Parenteral Nutrition Ordering) 1 each MISCELLANE DAILY PRN PRN Reason: Consult order Sodium Chloride (0.9 % Sodium Chloride Flush 3 Ml Syringe) 3 ml IVFLUSH QSHIFT [facility] Last Admin: 02/21/24 07:43 Dose: Not Given Documented By: CIERA Non-Admin Reason: IV Running Tamsulosin HCl (Tamsulosin Hcl 0.4 Mg Capsule) 0.4 mg PO BEDTIME [facility] Last Admin: 02/20/24 22:26 Dose: 0.4 mg Documented By: CHA Labs 02/20/24 06:15 02/21/24 05:20 Labs: Laboratory Results - last 24 hr 02/20/24 02/20/24 02/20/24 06:15 12:08 18:25 Hold Purple Top Anion Gap Estim Creat Clear Calc Estimated GFR POC Glucose 133 H 106 Random Glucose Calcium Phosphorus Magnesium C-Reactive Protein 4.39 H Albumin 02/21/24 02/21/24 02/21/24 00:09 05:20 05:39 Hold Purple Top SEE NOTE Anion Gap 9 L Estim Creat Clear Calc 155.0 Estimated GFR > 60 POC Glucose 122 H 87 Random Glucose 94 Calcium 8.1 L Phosphorus 2.9 Magnesium 1.9 C-Reactive Protein Albumin 2.6 L 02/21/24 07:31 Hold Purple Top Anion Gap Estim Creat Clear Calc Estimated GFR POC Glucose 100 Random Glucose Calcium Phosphorus Magnesium C-Reactive Protein Albumin Microbiology Microbiology Results: Microbiology 02/15/24 13:38 Blood Culture - Final Blood - Venous No growth after 5 days. 02/15/24 13:38 Blood Culture - Final Blood - Venous No growth after 5 days. Assessment and Plan (1) SBO (small bowel obstruction): Status: Acute (2) Hypoxia: Status: Acute Plan d7 58yo M with COPD, HTN, HLD, DM2, hypothyroidism, cognitive impairment presenting with abdominal pain and admitted to surgical service for SBO found to have ischemic small bowel, underwent laparotomy with resection of 2.2m small bowel + reanastomosis 02/16/24 medicine consult for management of comorbid conditions prerenal PHILIP hyperK - resolved after fluid repletion, insulin/dextrose hypoK - repleted hyperNa - free water deficit repleted with D5W SBO - POD5, NGT out 02/20/24. Advance to full liquid diet today per Surgery. On PPN. acute hypoxic respiratory failure likely due to COPD but treated for possible PNA - ceftriaxone 02/15-02/18; PCT low and BCx negative so ABX stopped - continue nebulizer treatments + Trelegy inhaler - weaned off O2 acute blood loss anemia - above transfusion threshold HTN - atenolol HLD - atorvastatin DM2 - basal-bolus insulin mood disorder - fluphenazine + gabapentin + lithium; Psychiatry consulted about restarting/titrating clozapine hypothyroidism - LT4 VTE ppx - UFH Thank you for this consultation. We will continue to follow the patient while they are admitted to your service. Total time managing care of this patient today: 35 minutes. Quality Stroke Does the patient have a stroke diagnosis?: No VTE Prior VTE?: No VTE Risk Level:: Medical - moderate - high VTE Device Contraindication: N/A - Device Ordered VTE Drug Contraindication: N/A - Med Ordered
[2024-02-21 11:34] LABS: Triglycerides 124 mg/dL (<150)
[2024-02-21 11:49] LABS: Glucose, Whole Blood 149 mg/dL (60-115)
--- NOTE | 2024-02-21 14:58 | PM.EVENT ---
Event Note Date of Service: 02/21/24 Event Note: seen on afternoon rounds tolerating full liquids looks comfortable abd soft, benign had flatus plan to advance diet tomorrow Time Spent With Patient Time: Total time managing care of this patient today ____ minutes.
[2024-02-21 16:15] LABS: Glucose, Whole Blood 286 mg/dL (60-115)
[2024-02-21] MEDS: Insulin Lispro 100 UNIT/ML 3 ML VIAL SUBCUT (16:41)
[2024-02-21] MEDS: Atorvastatin Calcium 40 MG TABLET PO (19:42)
[2024-02-21] MEDS: fluPHENAZine HCl 1 MG TABLET PO (19:43)
[2024-02-21] MEDS: Tamsulosin HCL 0.4 MG CAPSULE PO (19:43)
[2024-02-21 19:47] LABS: Glucose, Whole Blood 116 mg/dL (60-115)
[2024-02-21] MEDS: Insulin Glargine,Hum.rec.anlog 100 UNIT/ML 10 ML VIAL 10 UNIT SUBCUT (21:54)
[2024-02-21] MEDS: Parenteral Nutrition 1,680 ML 70 ML IV (22:07)
[2024-02-22] VITALS (10 sets, daily range): BP systolic 84–138; BP diastolic 40–63; PULSE 56–94; RESP 16–18; TEMP 36.1–37.2; O2SAT 92–98
[2024-02-22] MEDS: Melatonin 3 MG TABLET 6 MG PO (02:31)
[2024-02-22] MEDS: Levothyroxine Sodium 150 MCG TABLET PO (05:23)
[2024-02-22 06:26] LABS: Hematocrit 27.5 % (42.0-52.0); Hemoglobin 8.4 g/dl (14.0-18.0); Mean Corpuscular HGB Conc 30.5 g/dl (31.0-36.0); Mean Corpuscular Hemoglobin 25.7 pg (27.0-33.0); Mean Corpuscular Volume 84.1 fL (80.0-98.0); Mean Platelet Volume 9.1 fL (9.4-12.4); Platelet Count 277 X10*3/uL (160-400); Red Blood Count 3.27 X10*6/uL (4.60-5.80); Red Cell Distribution Width 15.6 % (11.0-16.0); White Blood Count 9.4 X10*3/uL (4.8-10.8)
[2024-02-22 06:42] LABS: Albumin Level 2.6 g/dL (3.5-5.0); Anion Gap 9 (12-20); Blood Urea Nitrogen 11 mg/dL (9-16); Calcium 8.3 mg/dL (8.4-10.2); Carbon Dioxide 25 mmol/L (22-29); Chloride 109 mmol/L (96-108); Creatinine Clr Calc Pharmacy 142.5; Estimated Glomerular Filt Rate > 60; Glucose Random 230 mg/dL (60-115); Phosphorus 3.3 mg/dL (2.7-4.5); Potassium 4.1 mmol/L (3.3-5.1); Sodium 139 mmol/L (135-145)
[2024-02-22 07:33] LABS: Glucose, Whole Blood 224 mg/dL (60-115)
[2024-02-22] MEDS: Albuterol/Iprat 2.5/0.5MG 3 ML AMPUL.NEB INHALE ×3 (07:37→18:52)
[2024-02-22] MEDS: Fluticasone/Umeclidinium/Vilanterol 100/62.5/25 BLST.W.DEV 1 PUFF INHALE (07:37)
[2024-02-22] MEDS: Gabapentin 600 MG TABLET PO ×3 (08:20→22:12)
[2024-02-22] MEDS: Lithium Carbonate ER 450 MG TABLET.ER PO ×2 (08:20→22:13)
[2024-02-22] MEDS: Loratadine 10 MG TABLET PO (08:20)
[2024-02-22] MEDS: guaiFENesin LA 600 MG TAB.ER.12H PO ×2 (08:20→22:12)
[2024-02-22] MEDS: atenoloL 25 MG TABLET PO (08:20)
[2024-02-22] MEDS: 0.9 % Sodium Chloride Flush 3 ML SYRINGE IVFLUSH ×2 (08:20→22:31)
[2024-02-22] MEDS: Pantoprazole Sodium 40 MG/10 ML VIAL 20 MG IVPUSH (08:21)
[2024-02-22] MEDS: Insulin Lispro 100 UNIT/ML 3 ML VIAL SUBCUT ×3 (08:21→22:20)
[2024-02-22] MEDS: Artificial Tears 15 ML DROPS 1 DROP EYE-BOTH (08:23)
[2024-02-22] MEDS: Fluticasone Propionate Nasal 16 GM SPRAY 1 SPRAY NOSTRIL-B (08:23)
[2024-02-22] MEDS: Heparin Sodium,Porcine 5,000 UNIT/ML VIAL 5000 UNIT SUBCUT ×2 (08:29→22:19)
[2024-02-22] MEDS: Morphine Sulfate 4 MG/ML CARTRIDGE IVPUSH (10:01)
[2024-02-22 11:36] LABS: Glucose, Whole Blood 123 mg/dL (60-115)
--- NOTE | 2024-02-22 12:03 | HO.PM.IMPN ---
Subjective Subjective Date of Service: 02/22/24 Interval History: No acute issues overnight. Cooperative but delusional Review of Systems Denies chest pain Denies shortness of breath Denies nausea vomiting diarrhea Denies fever chills Physical Exam Vital Signs: Vital Signs: Last Vital Signs Temp 97.7 F 02/22/24 11:36 Pulse 56 02/22/24 11:36 Resp 18 02/22/24 11:36 BP 93/54 L 02/22/24 11:36 Pulse Ox 97 02/22/24 11:36 O2 Del Method Room Air 02/22/24 11:36 O2 Flow Rate 2 02/17/24 07:47 BMI result Body Mass Index 27.1 Const: Other: Awake alert no acute issues Resp: Other: Clear to auscultation bilaterally no rales rhonchi or wheezes Cardio: Other: No S4; positive S1-S2; no S3 murmurs rubs or gallops GI: Other: Soft nontender nondistended normoactive bowel sounds Extrem: Other: No edema bilateral Objective Data Active Medications Albuterol Sulfate (Albuterol Sulfate 90 Mcg 8 Gm Inhaler) 1 puff INHALE RQ6H PRN PRN Reason: Shortness Of Breath Albuterol/Ipratropium (Albuterol/Iprat 2.5/0.5mg 3 Ml Ampul.Neb) 3 ml INHALE RQ6H WHILE AWAKE [facility] Last Admin: 02/22/24 07:37 Dose: 3 ml Documented By: OMER Artificial Tears (Artificial Tears 15 Ml Drops) 1 drop EYE-BOTH DAILY [facility] Last Admin: 02/22/24 08:23 Dose: 1 drop Documented By: GALE Atenolol (Atenolol 25 Mg Tablet) 25 mg PO DAILY [facility]; Protocol Last Admin: 02/22/24 08:20 Dose: 25 mg Documented By: GALE Atorvastatin Calcium (Atorvastatin Calcium 40 Mg Tablet) 40 mg PO BEDTIME [facility] Last Admin: 02/21/24 19:42 Dose: 40 mg Documented By: SUKUMAR Fluphenazine HCl (Fluphenazine Hcl 1 Mg Tablet) 1 mg PO BEDTIME [facility] Last Admin: 02/21/24 19:43 Dose: 1 mg Documented By: SUKUMAR Fluticasone Propionate (Fluticasone Propionate Nasal 16 Gm [place]) 1 spray NOSTRIL-B DAILY [facility] Last Admin: 02/22/24 08:23 Dose: 1 spray Documented By: GALE Fluticasone/Umeclidinium/Vilanterol (Fluticasone/Umeclidinium/Vilanterol 100/62.5/25 Blst.W.Dev) 1 puff INHALE RDAILY [facility] Last Admin: 02/22/24 07:37 Dose: 1 puff Documented By: OMER Gabapentin (Gabapentin 600 Mg Tablet) 600 mg PO TID [facility] Last Admin: 02/22/24 08:20 Dose: 600 mg Documented By: GALE Guaifenesin (Guaifenesin La 600 Mg Tab.Er.12h) 600 mg PO BID [facility] Last Admin: 02/22/24 08:20 Dose: 600 mg Documented By: GALE Heparin Sodium (Porcine) (Heparin Sodium,Porcine 5,000 Unit/Ml Vial) 5,000 unit SUBCUT Q12H [facility] Last Admin: 02/22/24 08:29 Dose: 5,000 unit Documented By: GALE Dextrose (D10) 250 mls @ 750 mls/hr IV Q15M PRN PRN Reason: per Hypoglycemia Standing Ord. Last Infusion: 02/19/24 02:40 Dose: Infused Documented By: ANGELA Nutrition (Parenteral) (Parenteral Nutrition) 1,680 mls @ 70 mls/hr IV .Q24H [facility]; Protocol Stop: 02/22/24 20:59 Last Admin: 02/21/24 22:07 Dose: 70 mls/hr Documented By: SUKUMAR Insulin Glargine (Insulin Glargine,Hum.Rec.Anlog 100 Unit/Ml 10 Ml Vial) 10 unit SUBCUT BEDTIME [facility] Last Admin: 02/21/24 21:54 Dose: 10 unit Documented By: SUKUMAR Insulin Human Lispro (Insulin Lispro 100 Unit/Ml 3 Ml Vial) 0 unit SUBCUT QIDACHS [facility]; Protocol Last Admin: 02/22/24 11:37 Dose: Not Given Documented By: GALE Non-Admin Reason: No Insulin Coverage Levothyroxine Sodium (Levothyroxine Sodium 150 Mcg Tablet) 150 mcg PO DAILY@0600 [facility] Last Admin: 02/22/24 05:23 Dose: 150 mcg Documented By: SUKUMAR [place] Carbonate ([place] Carbonate Er 450 Mg Tablet.Er) 450 mg PO BID [facility] Last Admin: 02/22/24 08:20 Dose: 450 mg Documented By: GALE Loratadine (Loratadine 10 Mg Tablet) 10 mg PO DAILY [facility] Last Admin: 02/22/24 08:20 Dose: 10 mg Documented By: GALE Melatonin (Melatonin 3 Mg Tablet) 6 mg PO BEDTIME PRN PRN Reason: Insomnia Last Admin: 02/22/24 02:31 Dose: 6 mg Documented By: SUKUMAR Morphine Sulfate (Morphine Sulfate 4 Mg/Ml Cartridge) 4 mg IVPUSH Q4H PRN; Protocol PRN Reason: Pain, Severe (Pain Scale 7-10) Last Admin: 02/22/24 10:01 Dose: 4 mg Documented By: GALE Ondansetron HCl (Ondansetron Hcl 4 Mg/2 Ml Vial) 4 mg IVPUSH Q8H PRN PRN Reason: Nausea and Vomiting Last Admin: 02/16/24 09:36 Dose: 4 mg Documented By: NEO Pantoprazole Sodium (Pantoprazole Sodium 40 Mg/10 Ml Vial) 20 mg IVPUSH DAILY [facility] Last Admin: 02/22/24 08:21 Dose: 20 mg Documented By: GALE Pharmacy Consult (Consult Rx Parenteral Nutrition Ordering) 1 each MISCELLANE DAILY PRN PRN Reason: Consult order Sodium Chloride (0.9 % Sodium Chloride Flush 3 Ml Syringe) 3 ml IVFLUSH QSHIFT [facility] Last Admin: 02/22/24 08:20 Dose: 3 ml Documented By: GALE Tamsulosin HCl (Tamsulosin Hcl 0.4 Mg Capsule) 0.4 mg PO BEDTIME [facility] Last Admin: 02/21/24 19:43 Dose: 0.4 mg Documented By: SUKUMAR Labs 02/22/24 06:18 02/22/24 06:18 Labs: Laboratory Results - last 24 hr 02/21/24 02/21/24 02/22/24 16:08 19:41 06:18 MCV 84.1 MCH 25.7 L MCHC 30.5 L RDW 15.6 Plt Count 277 MPV 9.1 L Absolute Nucleated RBC 0.000 Nucleated RBC % (auto) 0.0 Anion Gap 9 L Estim Creat Clear Calc 142.5 Estimated GFR > 60 POC Glucose 286 H 116 H Random Glucose 230 H Calcium 8.3 L Phosphorus 3.3 Magnesium 2.0 Albumin 2.6 L 02/22/24 02/22/24 07:14 11:18 MCV MCH MCHC RDW Plt Count MPV Absolute Nucleated RBC Nucleated RBC % (auto) Anion Gap Estim Creat Clear Calc Estimated GFR POC Glucose 224 H 123 H Random Glucose Calcium Phosphorus Magnesium Albumin Assessment and Plan (1) PHILIP (acute kidney injury): Status: Acute (2) Diabetes mellitus type 2 in nonobese: Status: Acute Plan 58yo M with COPD, HTN, HLD, DM2, hypothyroidism, cognitive impairment presenting with abdominal pain and admitted to surgical service for SBO; found to have ischemic small bowel, underwent laparotomy with resection of 2.2m small bowel + reanastomosis 02/16/24; medicine consult for management of comorbid conditions 1.PHILIP w/hyperkalemia -responded to volume -follow renals/divalents 2.HyperNa - free water deficit repleted with D5W -follow clinically 3.SBO - POD(6), NGT out 02/20/24. Advance to full liquid diet .... Tolerating well -further advancements as per surgery 4.Acute hypoxic respiratory failure likely due to COPD but treated for possible PNA - ceftriaxone 02/15-02/18; PCT low and BCx negative so ABX stopped - continue nebulizer treatments + Trelegy inhaler - weaned off O2 5.DM2 -acceptable control on current therapies -lispro correctional scale -adjust as indicated 6.Mood disorder - fluphenazine + gabapentin + lithium -further recommendations as per Psychiatry Thank you for this consultation. We will continue to follow the patient while they are admitted to your service. Quality Stroke Does the patient have a stroke diagnosis?: No VTE Prior VTE?: No VTE Risk Level:: Medical - moderate - high VTE Device Contraindication: N/A - Device Ordered VTE Drug Contraindication: N/A - Med Ordered
--- NOTE | 2024-02-22 15:12 | PM.PNGS ---
Subjective Subjective Date of Service: 02/22/24 Interval history: Uneventful evening. Patient tolerating his liquid diet. Says he is passing flatus and some stool. Physical Exam Vital Signs: Vital Signs: Last Vital Signs Temp 97.7 F 02/22/24 11:36 Pulse 56 02/22/24 13:03 Resp 18 02/22/24 13:03 BP 93/54 L 02/22/24 11:36 Pulse Ox 97 02/22/24 11:36 O2 Del Method Room Air 02/22/24 11:36 O2 Flow Rate 2 02/17/24 07:47 BMI result Body Mass Index 27.1 GI: Other: Abdomen is soft. Incision clean dry and intact. Minimal incisional discomfort. Objective Data Active Medications Albuterol Sulfate (Albuterol Sulfate 90 Mcg 8 Gm Inhaler) 1 puff INHALE RQ6H PRN PRN Reason: Shortness Of Breath Albuterol/Ipratropium (Albuterol/Iprat 2.5/0.5mg 3 Ml Ampul.Neb) 3 ml INHALE RQ6H WHILE AWAKE [facility] Last Admin: 02/22/24 13:01 Dose: 3 ml Documented By: OMER Artificial Tears (Artificial Tears 15 Ml Drops) 1 drop EYE-BOTH DAILY [facility] Last Admin: 02/22/24 08:23 Dose: 1 drop Documented By: GALE Atenolol (Atenolol 25 Mg Tablet) 25 mg PO DAILY [facility]; Protocol Last Admin: 02/22/24 08:20 Dose: 25 mg Documented By: GALE Atorvastatin Calcium (Atorvastatin Calcium 40 Mg Tablet) 40 mg PO BEDTIME [facility] Last Admin: 02/21/24 19:42 Dose: 40 mg Documented By: SUKUMAR Fluphenazine HCl (Fluphenazine Hcl 1 Mg Tablet) 1 mg PO BEDTIME [facility] Last Admin: 02/21/24 19:43 Dose: 1 mg Documented By: SUKUMAR Fluticasone Propionate (Fluticasone Propionate Nasal 16 Gm [place]) 1 spray NOSTRIL-B DAILY [facility] Last Admin: 02/22/24 08:23 Dose: 1 spray Documented By: GALE Fluticasone/Umeclidinium/Vilanterol (Fluticasone/Umeclidinium/Vilanterol 100/62.5/25 Blst.W.Dev) 1 puff INHALE RDAILY [facility] Last Admin: 02/22/24 07:37 Dose: 1 puff Documented By: OMER Gabapentin (Gabapentin 600 Mg Tablet) 600 mg PO TID [facility] Last Admin: 02/22/24 14:42 Dose: 600 mg Documented By: GALE Guaifenesin (Guaifenesin La 600 Mg Tab.Er.12h) 600 mg PO BID [facility] Last Admin: 02/22/24 08:20 Dose: 600 mg Documented By: GALE Heparin Sodium (Porcine) (Heparin Sodium,Porcine 5,000 Unit/Ml Vial) 5,000 unit SUBCUT Q12H [facility] Last Admin: 02/22/24 08:29 Dose: 5,000 unit Documented By: GALE Dextrose (D10) 250 mls @ 750 mls/hr IV Q15M PRN PRN Reason: per Hypoglycemia Standing Ord. Last Infusion: 02/19/24 02:40 Dose: Infused Documented By: ANGELA Nutrition (Parenteral) (Parenteral Nutrition) 1,680 mls @ 70 mls/hr IV .Q24H [facility]; Protocol Stop: 02/22/24 20:59 Last Admin: 02/21/24 22:07 Dose: 70 mls/hr Documented By: SUKUMAR Nutrition (Parenteral) (Parenteral Nutrition) 2,160 mls @ 90 mls/hr IV .Q24H [facility]; Protocol Stop: 02/23/24 20:59 Insulin Glargine (Insulin Glargine,Hum.Rec.Anlog 100 Unit/Ml 10 Ml Vial) 10 unit SUBCUT BEDTIME [facility] Last Admin: 02/21/24 21:54 Dose: 10 unit Documented By: SUKUMAR Insulin Human Lispro (Insulin Lispro 100 Unit/Ml 3 Ml Vial) 0 unit SUBCUT QIDACHS [facility]; Protocol Last Admin: 02/22/24 11:37 Dose: Not Given Documented By: GALE Non-Admin Reason: No Insulin Coverage Levothyroxine Sodium (Levothyroxine Sodium 150 Mcg Tablet) 150 mcg PO DAILY@0600 [facility] Last Admin: 02/22/24 05:23 Dose: 150 mcg Documented By: SUKUMAR [place] Carbonate ([place] Carbonate Er 450 Mg Tablet.Er) 450 mg PO BID [facility] Last Admin: 02/22/24 08:20 Dose: 450 mg Documented By: GALE Loratadine (Loratadine 10 Mg Tablet) 10 mg PO DAILY [facility] Last Admin: 02/22/24 08:20 Dose: 10 mg Documented By: GALE Melatonin (Melatonin 3 Mg Tablet) 6 mg PO BEDTIME PRN PRN Reason: Insomnia Last Admin: 02/22/24 02:31 Dose: 6 mg Documented By: SUKUMAR Morphine Sulfate (Morphine Sulfate 4 Mg/Ml Cartridge) 4 mg IVPUSH Q4H PRN; Protocol PRN Reason: Pain, Severe (Pain Scale 7-10) Last Admin: 02/22/24 10:01 Dose: 4 mg Documented By: GALE Ondansetron HCl (Ondansetron Hcl 4 Mg/2 Ml Vial) 4 mg IVPUSH Q8H PRN PRN Reason: Nausea and Vomiting Last Admin: 02/16/24 09:36 Dose: 4 mg Documented By: NEO Pantoprazole Sodium (Pantoprazole Sodium 40 Mg/10 Ml Vial) 20 mg IVPUSH DAILY [facility] Last Admin: 02/22/24 08:21 Dose: 20 mg Documented By: GALE Pharmacy Consult (Consult Rx Parenteral Nutrition Ordering) 1 each MISCELLANE DAILY PRN PRN Reason: Consult order Sodium Chloride (0.9 % Sodium Chloride Flush 3 Ml Syringe) [address] [facility] Admin: 02/22/24 14:43 Dose: Not Given Documented By: GALE Non-Admin Reason: IV Running Tamsulosin HCl (Tamsulosin Hcl 0.4 Mg Capsule) 0.4 mg PO BEDTIME [facility] Last Admin: 02/21/24 19:43 Dose: 0.4 mg Documented By: SUKUMAR Labs 02/22/24 06:18 02/22/24 06:18 Labs: Laboratory Results - last 24 hr 02/21/24 02/21/24 02/22/24 16:08 19:41 06:18 MCV 84.1 MCH 25.7 L MCHC 30.5 L RDW 15.6 Plt Count 277 MPV 9.1 L Absolute Nucleated RBC 0.000 Nucleated RBC % (auto) 0.0 Anion Gap 9 L Estim Creat Clear Calc 142.5 Estimated GFR > 60 POC Glucose 286 H 116 H Random Glucose 230 H Calcium 8.3 L Phosphorus 3.3 Magnesium 2.0 Albumin 2.6 L 02/22/24 02/22/24 07:14 11:18 MCV MCH MCHC RDW Plt Count MPV Absolute Nucleated RBC Nucleated RBC % (auto) Anion Gap Estim Creat Clear Calc Estimated GFR POC Glucose 224 H 123 H Random Glucose Calcium Phosphorus Magnesium Albumin Procedures Date of Service Date of Service: 02/22/24 Progress Note: A&P Assessment and plan (1) Status post small bowel resection: Status: Acute Plan Attempt to advance diet as tolerated, out of bed, attempted incentive spirometry although difficult with the patient's cognitive issues. Time Spent With Patient Time: Total time managing care of this patient today ____ minutes. Quality Stroke Does the patient have a stroke diagnosis?: No VTE Prior VTE?: No VTE Risk Level:: Medical - moderate - high VTE Device Contraindication: N/A - Device Ordered VTE Drug Contraindication: N/A - Med Ordered
[2024-02-22 16:23] LABS: Glucose, Whole Blood 224 mg/dL (60-115)
[2024-02-22 19:53] LABS: Glucose, Whole Blood 195 mg/dL (60-115)
[2024-02-22] MEDS: fluPHENAZine HCl 1 MG TABLET PO (22:12)
[2024-02-22] MEDS: Atorvastatin Calcium 40 MG TABLET PO (22:13)
[2024-02-22] MEDS: Tamsulosin HCL 0.4 MG CAPSULE PO (22:13)
[2024-02-22] MEDS: Insulin Glargine,Hum.rec.anlog 100 UNIT/ML 10 ML VIAL 10 UNIT SUBCUT (22:20)
[2024-02-22] MEDS: Parenteral Nutrition 2,160 ML 90 ML IV (22:31)
[2024-02-22] MEDS: Lactated Ringers 1,000 ML 999 ML IV (23:45)
[2024-02-23] VITALS (9 sets, daily range): BP systolic 92–131; BP diastolic 40–94; PULSE 64–71; RESP 16–18; TEMP 36.1–37.1; O2SAT 90–96
[2024-02-23] MEDS: Acetaminophen 1,000 MG/100 ML PIGGYBACK 400 MG IV (01:30)
[2024-02-23] MEDS: Albumin Human 25 % 100 ML IV ×2 (01:49→02:49)
[2024-02-23] MEDS: Levothyroxine Sodium 150 MCG TABLET PO (05:12)
--- NOTE | 2024-02-23 05:53 | PC.NURSE ---
Approximatly after 23:00, pt's BP was 84/40 manually, pt asymptomatic. MD Paulino was notified of the situation. One time dose of LR bolus was ordered per JAN. Pt BP was rechecked for 92/40. MD Paulino ordered 2 doses of IV Albumin with good effect. Pt's BP after the 2 doses of Albumin was 98/48. Pt was given a new IV #20 to his L FA. Pt's BP was checked again around 05:00 and went up to 102/52. Currently the pt's TPN is running at 90mls/hr. Will continue to monitor the pt's BP.
[2024-02-23 07:33] LABS: Albumin Level 3.1 g/dL (3.5-5.0); Anion Gap 10 (12-20); Blood Urea Nitrogen 12 mg/dL (9-16); Calcium 8.4 mg/dL (8.4-10.2); Carbon Dioxide 26 mmol/L (22-29); Chloride 106 mmol/L (96-108); Creatinine Clr Calc Pharmacy 149.7; Estimated Glomerular Filt Rate > 60; Glucose Random 142 mg/dL (60-115); Phosphorus 3.3 mg/dL (2.7-4.5); Potassium 4.2 mmol/L (3.3-5.1); Sodium 138 mmol/L (135-145)
[2024-02-23 07:46] LABS: Glucose, Whole Blood 173 mg/dL (60-115)
[2024-02-23] MEDS: Gabapentin 600 MG TABLET PO ×3 (08:08→22:04)
[2024-02-23] MEDS: Pantoprazole Sodium 40 MG/10 ML VIAL 20 MG IVPUSH (08:09)
[2024-02-23] MEDS: Insulin Lispro 100 UNIT/ML 3 ML VIAL SUBCUT ×2 (08:09→17:06)
[2024-02-23] MEDS: Loratadine 10 MG TABLET PO (08:09)
[2024-02-23] MEDS: Fluticasone Propionate Nasal 16 GM SPRAY 1 SPRAY NOSTRIL-B (08:09)
[2024-02-23] MEDS: Lithium Carbonate ER 450 MG TABLET.ER PO ×2 (08:09→22:04)
[2024-02-23] MEDS: guaiFENesin LA 600 MG TAB.ER.12H PO ×2 (08:09→22:04)
[2024-02-23] MEDS: 0.9 % Sodium Chloride Flush 3 ML SYRINGE IVFLUSH ×3 (08:09→22:12)
[2024-02-23] MEDS: Artificial Tears 15 ML DROPS 1 DROP EYE-BOTH (08:09)
[2024-02-23] MEDS: Heparin Sodium,Porcine 5,000 UNIT/ML VIAL 5000 UNIT SUBCUT ×2 (08:10→22:05)
[2024-02-23 11:22] LABS: Glucose, Whole Blood 142 mg/dL (60-115)
--- NOTE | 2024-02-23 12:07 | P.PNIM_ITS ---
Subjective Subjective Date of Service: 02/23/24 Interval History: No acute issues overnight. Tolerating diet Review of Systems Denies chest pain Denies shortness of breath Denies nausea vomiting diarrhea Denies fever chills Physical Exam 2 Vital Signs: Vital Signs: Last Vital Signs Temp 98.0 F 02/23/24 12:00 Pulse 70 02/23/24 12:00 Resp 18 02/23/24 12:00 BP 110/58 L 02/23/24 12:00 Pulse Ox 94 02/23/24 12:00 O2 Del Method Room Air 02/23/24 12:00 O2 Flow Rate 2 02/17/24 07:47 BMI result Body Mass Index 27.1 Const: Other: Awake alert no acute issues Resp: Other: Clear to auscultation bilaterally no rales rhonchi or wheezes Cardio: Other: No S4; positive S1-S2; no S3 murmurs rubs or gallops GI: Other: Soft nontender nondistended normoactive bowel sounds Extrem: Other: No edema bilateral Objective Data Active Medications Albuterol Sulfate (Albuterol Sulfate 90 Mcg 8 Gm Inhaler) 1 puff INHALE RQ6H PRN PRN Reason: Shortness Of Breath Artificial Tears (Artificial Tears 15 Ml Drops) 1 drop EYE-BOTH DAILY [facility] Last Admin: 02/23/24 08:09 Dose: 1 drop Documented By: GALE Atenolol (Atenolol 25 Mg Tablet) 25 mg PO DAILY [facility]; Protocol Last Admin: 02/23/24 08:10 Dose: Not Given Documented By: GALE Non-Admin Reason: Decreased Blood Pressure Atorvastatin Calcium (Atorvastatin Calcium 40 Mg Tablet) 40 mg PO BEDTIME [facility] Last Admin: 02/22/24 22:13 Dose: 40 mg Documented By: SUKUMAR Fluphenazine HCl (Fluphenazine Hcl 1 Mg Tablet) 1 mg PO BEDTIME [facility] Last Admin: 02/22/24 22:12 Dose: 1 mg Documented By: SUKUMAR Fluticasone Propionate (Fluticasone Propionate Nasal 16 Gm [place]) 1 spray NOSTRIL-B DAILY [facility] Last Admin: 02/23/24 08:09 Dose: 1 spray Documented By: GALE Fluticasone/Umeclidinium/Vilanterol (Fluticasone/Umeclidinium/Vilanterol 100/62.5/25 Blst.W.Dev) 1 puff INHALE RDAILY [facility] Last Admin: 02/23/24 07:37 Dose: Not Given Documented By: OMER Non-Admin Reason: Patient Asleep Gabapentin (Gabapentin 600 Mg Tablet) 600 mg PO TID [facility] Last Admin: 02/23/24 08:08 Dose: 600 mg Documented By: GALE Guaifenesin (Guaifenesin [place] 600 Mg Tab.Er.12h) 600 mg PO BID [facility] Last Admin: 02/23/24 08:09 Dose: 600 mg Documented By: GALE Heparin Sodium (Porcine) (Heparin Sodium,Porcine 5,000 Unit/Ml Vial) 5,000 unit SUBCUT Q12H [facility] Last Admin: 02/23/24 08:10 Dose: 5,000 unit Documented By: GALE Dextrose (D10) 250 mls @ 750 mls/hr IV Q15M PRN PRN Reason: per Hypoglycemia Standing Ord. Last Infusion: 02/19/24 02:40 Dose: Infused Documented By: ANGELA Nutrition (Parenteral) (Parenteral Nutrition) 2,160 mls @ 90 mls/hr IV .Q24H [facility]; Protocol Stop: 02/23/24 20:59 Last Infusion: 02/23/24 03:14 Dose: 90 mls/hr Documented By: SUKUMAR Nutrition (Parenteral) (Parenteral Nutrition) 2,160 mls @ 90 mls/hr IV .Q24H [facility]; Protocol Stop: 02/24/24 20:59 Insulin Glargine (Insulin Glargine,Hum.Rec.Anlog 100 Unit/Ml 10 Ml Vial) 10 unit SUBCUT BEDTIME [facility] Last Admin: 02/22/24 22:20 Dose: 10 unit Documented By: SUKUMAR Insulin Human Lispro (Insulin Lispro 100 Unit/Ml 3 Ml Vial) 0 unit SUBCUT QIDACHS [facility]; Protocol Last Admin: 02/23/24 11:33 Dose: Not Given Documented By: GALE Non-Admin Reason: No Insulin Coverage Levothyroxine Sodium (Levothyroxine Sodium 150 Mcg Tablet) 150 mcg PO DAILY@0600 [facility] Last Admin: 02/23/24 05:12 Dose: 150 mcg Documented By: SUKUMAR [place] Carbonate ([place] Carbonate Er 450 Mg Tablet.Er) 450 mg PO BID [facility] Last Admin: 02/23/24 08:09 Dose: 450 mg Documented By: GALE Loratadine (Loratadine 10 Mg Tablet) 10 mg PO DAILY [facility] Last Admin: 02/23/24 08:09 Dose: 10 mg Documented By: GALE Melatonin (Melatonin 3 Mg Tablet) 6 mg PO BEDTIME PRN PRN Reason: Insomnia Last Admin: 02/22/24 02:31 Dose: 6 mg Documented By: SUKUMAR Morphine Sulfate (Morphine Sulfate 4 Mg/Ml Cartridge) 4 mg IVPUSH Q4H PRN; Protocol PRN Reason: Pain, Severe (Pain Scale 7-10) Last Admin: 02/22/24 10:01 Dose: 4 mg Documented By: GALE Ondansetron HCl (Ondansetron Hcl 4 Mg/2 Ml Vial) 4 mg IVPUSH Q8H PRN PRN Reason: Nausea and Vomiting Last Admin: 02/16/24 09:36 Dose: 4 mg Documented By: NEO Pantoprazole Sodium (Pantoprazole Sodium 40 Mg/10 Ml Vial) 20 mg IVPUSH DAILY [facility] Last Admin: 02/23/24 08:09 Dose: 20 mg Documented By: GALE Pharmacy Consult (Consult Rx Parenteral Nutrition Ordering) 1 each MISCELLANE DAILY PRN PRN Reason: Consult order Sodium Chloride (0.9 % Sodium Chloride Flush 3 Ml Syringe) 3 ml IVFLUSH QSHIFT [facility] Last Admin: 02/23/24 08:09 Dose: 3 ml Documented By: GALE Tamsulosin HCl (Tamsulosin Hcl 0.4 Mg Capsule) 0.4 mg PO BEDTIME [facility] Last Admin: 02/22/24 22:13 Dose: 0.4 mg Documented By: SUKUMAR Labs 02/22/24 06:18 02/23/24 05:46 Labs: Laboratory Results - last 24 hr 02/22/24 02/22/24 02/23/24 16:13 19:42 05:46 Anion Gap 10 L Estim Creat Clear Calc 149.7 Estimated GFR > 60 POC Glucose 224 H 195 H Random Glucose 142 H Calcium 8.4 Phosphorus 3.3 Magnesium 2.0 Albumin 3.1 L 02/23/24 02/23/24 07:23 11:02 Anion Gap Estim Creat Clear Calc Estimated GFR POC Glucose 173 H 142 H Random Glucose Calcium Phosphorus Magnesium Albumin Assessment and Plan (1) Status post small bowel resection: Status: Acute (2) Diabetes mellitus type 2 in nonobese: Status: Acute Plan 58yo M with COPD, HTN, HLD, DM2, hypothyroidism, cognitive impairment presenting with abdominal pain and admitted to surgical service for SBO; found to have ischemic small bowel, underwent laparotomy with resection of 2.2m small bowel + reanastomosis 02/16/24; medicine consult for management of comorbid conditions 1.PHIILP w/hyperkalemia -responded to volume -follow renals/divalents 2.HyperNa - free water deficit repleted with D5W -follow clinically 3.SBO - POD(7), NGT out 02/20/24. Advance to full liquid diet .... Tolerating well -further advancements as per surgery.. Question regular diet today 4.Acute hypoxic respiratory failure likely due to COPD but treated for possible PNA - ceftriaxone 02/15-02/18; PCT low and BCx negative so ABX stopped - continue nebulizer treatments + Trelegy inhaler - weaned off O2 5.DM2 -acceptable control on current therapies -lispro correctional scale -adjust as indicated 6.Mood disorder - fluphenazine + gabapentin + lithium -further recommendations as per Psychiatry Thank you for this consultation. We will continue to follow the patient while they are admitted to your service. Quality Stroke Does the patient have a stroke diagnosis?: No VTE Prior VTE?: No VTE Risk Level:: Medical - moderate - high VTE Device Contraindication: N/A - Device Ordered VTE Drug Contraindication: N/A - Med Ordered
[2024-02-23] MEDS: Morphine Sulfate 4 MG/ML CARTRIDGE IVPUSH (13:54)
--- NOTE | 2024-02-23 15:00 | P.PNGS_ITS ---
Subjective Subjective Date of Service: 02/23/24 Interval history: Uneventful evening yesterday. For unclear reasons, patient's diet was not advanced yesterday. He would like to have it done so. Spoke with patient's nurse and 1800 ADA diet to be ordered. Patient states he is passing flatus and stool. Physical Exam 2 Vital Signs: Vital Signs: Last Vital Signs Temp 98.0 F 02/23/24 12:00 Pulse 70 02/23/24 12:00 Resp 18 02/23/24 12:00 BP 110/58 L 02/23/24 12:00 Pulse Ox 94 02/23/24 12:00 O2 Del Method Room Air 02/23/24 12:00 O2 Flow Rate 2 02/17/24 07:47 BMI result Body Mass Index 27.1 GI: Other: Abdomen is soft incision clean dry and intact. Objective Data Active Medications Albuterol Sulfate (Albuterol Sulfate 90 Mcg 8 Gm Inhaler) 1 puff INHALE RQ6H PRN PRN Reason: Shortness Of Breath Artificial Tears (Artificial Tears 15 Ml Drops) 1 drop EYE-BOTH DAILY [facility] Last Admin: 02/23/24 08:09 Dose: 1 drop Documented By: GALE Atenolol (Atenolol 25 Mg Tablet) 25 mg PO DAILY [facility]; Protocol Last Admin: 02/23/24 08:10 Dose: Not Given Documented By: GALE Non-Admin Reason: Decreased Blood Pressure Atorvastatin Calcium (Atorvastatin Calcium 40 Mg Tablet) 40 mg PO BEDTIME [facility] Last Admin: 02/22/24 22:13 Dose: 40 mg Documented By: SUKUMAR Fluphenazine HCl (Fluphenazine Hcl 1 Mg Tablet) 1 mg PO BEDTIME [facility] Last Admin: 02/22/24 22:12 Dose: 1 mg Documented By: SUKUMAR Fluticasone Propionate (Fluticasone Propionate Nasal 16 Gm [place]) 1 spray NOSTRIL-B DAILY [facility] Last Admin: 02/23/24 08:09 Dose: 1 spray Documented By: GALE Fluticasone/Umeclidinium/Vilanterol (Fluticasone/Umeclidinium/Vilanterol 100/62.5/25 Blst.W.Dev) 1 puff INHALE RDAILY [facility] Last Admin: 02/23/24 07:37 Dose: Not Given Documented By: OMER Non-Admin Reason: Patient Asleep Gabapentin (Gabapentin 600 Mg Tablet) 600 mg PO TID [facility] Last Admin: 02/23/24 13:57 Dose: 600 mg Documented By: GALE Guaifenesin (Guaifenesin La 600 Mg Tab.Er.12h) 600 mg PO BID [facility] Last Admin: 02/23/24 08:09 Dose: 600 mg Documented By: GALE Heparin Sodium (Porcine) (Heparin Sodium,Porcine 5,000 Unit/Ml Vial) 5,000 unit SUBCUT Q12H [facility] Last Admin: 02/23/24 08:10 Dose: 5,000 unit Documented By: GALE Dextrose (D10) 250 mls @ 750 mls/hr IV Q15M PRN PRN Reason: per Hypoglycemia Standing Ord. Last Infusion: 02/19/24 02:40 Dose: Infused Documented By: ANGELA Nutrition (Parenteral) (Parenteral Nutrition) 2,160 mls @ 90 mls/hr IV .Q24H [facility]; Protocol Stop: 02/23/24 20:59 Last Infusion: 02/23/24 03:14 Dose: 90 mls/hr Documented By: SUKUMAR Nutrition (Parenteral) (Parenteral Nutrition) 2,160 mls @ 90 mls/hr IV .Q24H [facility]; Protocol Stop: 02/24/24 20:59 Insulin Glargine (Insulin Glargine,Hum.Rec.Anlog 100 Unit/Ml 10 Ml Vial) 10 unit SUBCUT BEDTIME [facility] Last Admin: 02/22/24 22:20 Dose: 10 unit Documented By: SUKUMAR Insulin Human Lispro (Insulin Lispro 100 Unit/Ml 3 Ml Vial) 0 unit SUBCUT QIDACHS [facility]; Protocol Last Admin: 02/23/24 11:33 Dose: Not Given Documented By: GALE Non-Admin Reason: No Insulin Coverage Levothyroxine Sodium (Levothyroxine Sodium 150 Mcg Tablet) 150 mcg PO DAILY@0600 [facility] Last Admin: 02/23/24 05:12 Dose: 150 mcg Documented By: SUKUMAR Plush Carbonate (Plush Carbonate Er 450 Mg Tablet.Er) 450 mg PO BID [facility] Last Admin: 02/23/24 08:09 Dose: 450 mg Documented By: GALE Loratadine (Loratadine 10 Mg Tablet) 10 mg PO DAILY [facility] Last Admin: 02/23/24 08:09 Dose: 10 mg Documented By: GALE Melatonin (Melatonin 3 Mg Tablet) 6 mg PO BEDTIME PRN PRN Reason: Insomnia Last Admin: 02/22/24 02:31 Dose: 6 mg Documented By: SUKUMAR Morphine Sulfate (Morphine Sulfate 4 Mg/Ml Cartridge) 4 mg IVPUSH Q4H PRN; Protocol PRN Reason: Pain, Severe (Pain Scale 7-10) Last Admin: 02/23/24 13:54 Dose: 4 mg Documented By: GALE Ondansetron HCl (Ondansetron Hcl 4 Mg/2 Ml Vial) 4 mg IVPUSH Q8H PRN PRN Reason: Nausea and Vomiting Last Admin: 02/16/24 09:36 Dose: 4 mg Documented By: NEO Oxycodone HCl (Oxycodone Hcl Immed Release 5 Mg Tablet) 5 mg PO Q4H PRN PRN Reason: Pain, Moderate(Pain Scale 4-6) Pantoprazole Sodium (Pantoprazole Sodium 40 Mg/10 Ml Vial) 20 mg IVPUSH DAILY [facility] Last Admin: 02/23/24 08:09 Dose: 20 mg Documented By: GALE Pharmacy Consult (Consult Rx Parenteral Nutrition Ordering) 1 each MISCELLANE DAILY PRN PRN Reason: Consult order Sodium Chloride (0.9 % Sodium Chloride Flush 3 Ml Syringe) [facility] Last Admin: 02/23/24 13:57 Dose: 3 ml Documented By: GALE Tamsulosin HCl (Tamsulosin Hcl 0.4 Mg Capsule) 0.4 mg PO BEDTIME [facility] Last Admin: 02/22/24 22:13 Dose: 0.4 mg Documented By: SUKUMAR Labs 02/22/24 06:18 02/23/24 05:46 Labs: Laboratory Results - last 24 hr 02/22/24 02/22/24 02/23/24 16:13 19:42 05:46 Anion Gap 10 L Estim Creat Clear Calc 149.7 Estimated GFR > 60 POC Glucose 224 H 195 H Random Glucose 142 H Calcium 8.4 Phosphorus 3.3 Magnesium 2.0 Albumin 3.1 L 02/23/24 02/23/24 07:23 11:02 Anion Gap Estim Creat Clear Calc Estimated GFR POC Glucose 173 H 142 H Random Glucose Calcium Phosphorus Magnesium Albumin Procedures Date of Service Date of Service: 02/23/24 Progress Note: A&P Assessment and plan (1) Status post small bowel resection: Status: Acute Plan Advanced diet as tolerated, out of bed, encourage incentive spirometry Time Spent With Patient Time: Total time managing care of this patient today ____ minutes. Quality Stroke Does the patient have a stroke diagnosis?: No VTE Prior VTE?: No VTE Risk Level:: Medical - moderate - high VTE Device Contraindication: N/A - Device Ordered VTE Drug Contraindication: N/A - Med Ordered
[2024-02-23 17:05] LABS: Glucose, Whole Blood 265 mg/dL (60-115)
[2024-02-23 20:45] LABS: Glucose, Whole Blood 142 mg/dL (60-115)
[2024-02-23] MEDS: Atorvastatin Calcium 40 MG TABLET PO (22:04)
[2024-02-23] MEDS: fluPHENAZine HCl 1 MG TABLET PO (22:04)
[2024-02-23] MEDS: Tamsulosin HCL 0.4 MG CAPSULE PO (22:05)
[2024-02-23] MEDS: Insulin Glargine,Hum.rec.anlog 100 UNIT/ML 10 ML VIAL 10 UNIT SUBCUT (22:05)
[2024-02-23] MEDS: Parenteral Nutrition 2,160 ML 90 ML IV (22:11)
[2024-02-23] MEDS: Albuterol Sulfate 90 MCG 8 GM INHALER 1 PUFF INHALE (22:36)
[2024-02-24] VITALS (8 sets, daily range): BP systolic 104–143; BP diastolic 45–73; PULSE 70–100; RESP 12–18; TEMP 36.2–37.2; O2SAT 91–99
[2024-02-24] MEDS: oxyCODONE HCl Immed Release 5 MG TABLET PO ×4 (04:01→22:10)
[2024-02-24] MEDS: Benzonatate 100 MG CAPSULE 200 MG PO (04:01)
[2024-02-24] MEDS: Levothyroxine Sodium 150 MCG TABLET PO (05:12)
--- NOTE | 2024-02-24 07:02 | PC.NURSE ---
notified o2 sats 91% on ra pt has congestive cough. and few crackles at bases order received for tessallon for cough po will monitor
[2024-02-24 07:13] LABS: Glucose, Whole Blood 251 mg/dL (60-115)
[2024-02-24 07:27] LABS: Albumin Level 3.2 g/dL (3.5-5.0); Anion Gap 11 (12-20); Blood Urea Nitrogen 14 mg/dL (9-16); Calcium 8.8 mg/dL (8.4-10.2); Carbon Dioxide 25 mmol/L (22-29); Chloride 103 mmol/L (96-108); Creatinine Clr Calc Pharmacy 113.3; Estimated Glomerular Filt Rate > 60; Glucose Random 244 mg/dL (60-115); Magnesium 2.1 mg/dL (1.6-2.6); Phosphorus 3.3 mg/dL (2.7-4.5); Potassium 4.9 mmol/L (3.3-5.1); Sodium 134 mmol/L (135-145)
[2024-02-24] MEDS: Heparin Sodium,Porcine 5,000 UNIT/ML VIAL 5000 UNIT SUBCUT ×2 (08:06→20:52)
[2024-02-24] MEDS: Artificial Tears 15 ML DROPS 1 DROP EYE-BOTH (08:06)
[2024-02-24] MEDS: Pantoprazole Sodium 40 MG/10 ML VIAL 20 MG IVPUSH (08:06)
[2024-02-24] MEDS: Fluticasone Propionate Nasal 16 GM SPRAY 1 SPRAY NOSTRIL-B (08:06)
[2024-02-24] MEDS: Gabapentin 600 MG TABLET PO ×3 (08:07→20:51)
[2024-02-24] MEDS: Loratadine 10 MG TABLET PO (08:07)
[2024-02-24] MEDS: Insulin Lispro 100 UNIT/ML 3 ML VIAL SUBCUT ×4 (08:07→20:52)
[2024-02-24] MEDS: Lithium Carbonate ER 450 MG TABLET.ER PO ×2 (08:07→20:51)
[2024-02-24] MEDS: 0.9 % Sodium Chloride Flush 3 ML SYRINGE IVFLUSH ×2 (08:07→20:53)
[2024-02-24] MEDS: guaiFENesin LA 600 MG TAB.ER.12H PO ×2 (08:07→20:51)
[2024-02-24] MEDS: Fluticasone/Umeclidinium/Vilanterol 100/62.5/25 BLST.W.DEV 1 PUFF INHALE (08:12)
--- NOTE | 2024-02-24 08:48 | PM.PNGS ---
Subjective Subjective Date of Service: 02/24/24 Interval history: feels well tolerating diet more alert denies pain Physical Exam Vital Signs: Vital Signs: Last Vital Signs Temp 97.8 F 02/24/24 07:08 Pulse 70 02/24/24 07:08 Resp 16 02/24/24 08:13 BP 105/49 L 02/24/24 07:08 Pulse Ox 92 02/24/24 07:08 O2 Del Method Room Air 02/24/24 07:08 O2 Flow Rate 2 02/17/24 07:47 BMI result Body Mass Index 27.1 Const: General: comfortable and no acute distress Resp: Other: mild SOB Cardio: Rate: regular rate GI: Other: incision clean and dry Palpation (GI): Soft to palpation, not firm and nontender Objective Data Active Medications Albuterol Sulfate (Albuterol Sulfate 90 Mcg 8 Gm Inhaler) 1 puff INHALE RQ6H PRN PRN Reason: Shortness Of Breath Last Admin: 02/23/24 22:36 Dose: 1 puff Documented By: PATYS Artificial Tears (Artificial Tears 15 Ml Drops) 1 drop EYE-BOTH DAILY [facility] Last Admin: 02/24/24 08:06 Dose: 1 drop Documented By: TIMOTHY Atenolol (Atenolol 25 Mg Tablet) 25 mg PO DAILY [facility]; Protocol Last Admin: 02/24/24 07:54 Dose: Not Given Documented By: TIMOTHY Non-Admin Reason: Decreased Blood Pressure Atorvastatin Calcium (Atorvastatin Calcium 40 Mg Tablet) 40 mg PO BEDTIME [facility] Last Admin: 02/23/24 22:04 Dose: 40 mg Documented By: CARLOS ENRIQUE Benzonatate (Benzonatate 100 Mg Capsule) 200 mg PO TID PRN PRN Reason: Cough Last Admin: 02/24/24 04:01 Dose: 200 mg Documented By: CARLOS ENRIQUE Fluphenazine HCl (Fluphenazine Hcl 1 Mg Tablet) 1 mg PO BEDTIME [facility] Last Admin: 02/23/24 22:04 Dose: 1 mg Documented By: CARLOS ENRIQUE Fluticasone Propionate (Fluticasone Propionate Nasal 16 Gm [place]) 1 spray NOSTRIL-B DAILY [facility] Last Admin: 02/24/24 08:06 Dose: 1 spray Documented By: TIMOTHY Fluticasone/Umeclidinium/Vilanterol (Fluticasone/Umeclidinium/Vilanterol 100/62.5/25 Blst.W.Dev) 1 puff INHALE RDAILY [facility] Last Admin: 02/24/24 08:12 Dose: 1 puff Documented By: MATTHEW Gabapentin (Gabapentin 600 Mg Tablet) 600 mg PO TID [facility] Last Admin: 02/24/24 08:07 Dose: 600 mg Documented By: TIMOTHY Guaifenesin (Guaifenesin La 600 Mg Tab.Er.12h) 600 mg PO BID [facility] Last Admin: 02/24/24 08:07 Dose: 600 mg Documented By: TIMOTHY Heparin Sodium (Porcine) (Heparin Sodium,Porcine 5,000 Unit/Ml Vial) 5,000 unit SUBCUT Q12H [facility] Last Admin: 02/24/24 08:06 Dose: 5,000 unit Documented By: TIMOTHY Dextrose (D10) 250 mls @ 750 mls/hr IV Q15M PRN PRN Reason: per Hypoglycemia Standing Ord. Last Infusion: 02/19/24 02:40 Dose: Infused Documented By: ANGELA Nutrition (Parenteral) (Parenteral Nutrition) 2,160 mls @ 90 mls/hr IV .Q24H [facility]; Protocol Stop: 02/24/24 20:59 Last Admin: 02/23/24 22:11 Dose: 90 mls/hr Documented By: CARLOS ENRIQUE Insulin Glargine (Insulin Glargine,Hum.Rec.Anlog 100 Unit/Ml 10 Ml Vial) 10 unit SUBCUT BEDTIME [facility] Last Admin: 02/23/24 22:05 Dose: 10 unit Documented By: CARLOS ENRIQUE Insulin Human Lispro (Insulin Lispro 100 Unit/Ml 3 Ml Vial) 0 unit SUBCUT QIDACHS [facility]; Protocol Last Admin: 02/24/24 08:07 Dose: 6 unit Documented By: TIMOTHY Levothyroxine Sodium (Levothyroxine Sodium 150 Mcg Tablet) 150 mcg PO DAILY@0600 [facility] Last Admin: 02/24/24 05:12 Dose: 150 mcg Documented By: CARLOS ENRIQUE Calpella Carbonate ([place]ella Carbonate Er 450 Mg Tablet.Er) 450 mg PO BID [facility] Last Admin: 02/24/24 08:07 Dose: 450 mg Documented By: TIMOTHY Loratadine (Loratadine 10 Mg Tablet) 10 mg PO DAILY [facility] Last Admin: 02/24/24 08:07 Dose: 10 mg Documented By: TIMOTHY Melatonin (Melatonin 3 Mg Tablet) 6 mg PO BEDTIME PRN PRN Reason: Insomnia Last Admin: 02/22/24 02:31 Dose: 6 mg Documented By: SUKUMAR Morphine Sulfate (Morphine Sulfate 4 Mg/Ml Cartridge) 4 mg IVPUSH Q4H PRN; Protocol PRN Reason: Pain, Severe (Pain Scale 7-10) Last Admin: 02/23/24 13:54 Dose: 4 mg Documented By: GALE Ondansetron HCl (Ondansetron Hcl 4 Mg/2 Ml Vial) 4 mg IVPUSH Q8H PRN PRN Reason: Nausea and Vomiting Last Admin: 02/16/24 09:36 Dose: 4 mg Documented By: NEO Oxycodone HCl (Oxycodone Hcl Immed Release 5 Mg Tablet) 5 mg PO Q4H PRN PRN Reason: Pain, Moderate(Pain Scale 4-6) Last Admin: 02/24/24 08:10 Dose: 5 mg Documented By: TIMOTHY Pantoprazole Sodium (Pantoprazole Sodium 40 Mg/10 Ml Vial) 20 mg IVPUSH DAILY [facility] Last Admin: 02/24/24 08:06 Dose: 20 mg Documented By: TIMOTHY Pharmacy Consult (Consult Rx Parenteral Nutrition Ordering) 1 each MISCELLANE DAILY PRN PRN Reason: Consult order Sodium Chloride (0.9 % Sodium Chloride Flush 3 Ml Syringe) 3 ml IVFLUSH QSHIFT [facility] Last Admin: 02/24/24 08:07 Dose: 3 ml Documented By: TIMOTHY Tamsulosin HCl (Tamsulosin Hcl 0.4 Mg Capsule) 0.4 mg PO BEDTIME [facility] Last Admin: 02/23/24 22:05 Dose: 0.4 mg Documented By: CARLOS ENRIQUE Labs 02/22/24 06:18 02/24/24 05:45 Labs: Laboratory Results - last 24 hr 02/23/24 02/23/24 02/23/24 11:02 17:00 20:28 Hold Purple Top Anion Gap Estim Creat Clear Calc Estimated GFR POC Glucose 142 H 265 H 142 H Random Glucose Calcium Phosphorus Magnesium Albumin 02/24/24 02/24/24 05:45 07:06 Hold Purple Top SEE NOTE Anion Gap 11 L Estim Creat Clear Calc 113.3 Estimated GFR > 60 POC Glucose 251 H Random Glucose 244 H Calcium 8.8 Phosphorus 3.3 Magnesium 2.1 Albumin 3.2 L Procedures Date of Service Date of Service: 02/24/24 Progress Note: A&P Assessment and plan (1) Status post small bowel resection: Status: Acute Assessment and Plan: tolerating diet looks well now more alert - seems back to baseline abd soft and benign OOB to chair will start dc planning once medically cleared Time Spent With Patient Time: Total time managing care of this patient today ____ minutes. Quality Stroke Does the patient have a stroke diagnosis?: No VTE Prior VTE?: No VTE Risk Level:: Medical - moderate - high VTE Device Contraindication: N/A - Device Ordered VTE Drug Contraindication: N/A - Med Ordered
[2024-02-24 11:18] LABS: Glucose, Whole Blood 178 mg/dL (60-115)
--- NOTE | 2024-02-24 11:41 | MHC.CLN ---
F/U PPN DISCONTINUED TODAY PER MD. DIET ADVANCED TO DIABETIC 1800 KCALS ON 02/22. PO INTAKE VARIABLE, USUALLY LESS THAN 50%, WITH ONE MEAL X 75%. FOLLOW FOR INTAKE AND DIET TOLERANCE.
--- NOTE | 2024-02-24 12:33 | P.CDIM_ITS ---
PROVIDER RESPONSE TEXT: To clarify, the appropriate diagnosis supported by the clinical indicators: Hyperkalemia: hyperkalemia QUERY TEXT: PHYSICIAN'S DOCUMENTATION REQUEST Date of Query: 02/17/2024 12:42 PM EDT Patient Name: David Lantigua Admit Date: 02/15/2024 Dear Paul Thomas, A review of the medical record indicates additional documentation may be needed. Please review below and update the documentation accordingly. Clinical Indicators: LAB FINDINGS: potassium 5.9 H Surgery note - Potassium and WBC better K was high earlier this morning. Based on the above, is there a diagnosis that correlates with the above lab findings: Hyperkalemia suspected, possible, resolved etc. Labs indicate a diagnosis of (please specify) Other (explain) Clinically unable to determine (explain) Thank you, Darlene Monzon, CCS, CDIS Use of terms such as suspected, likely, concern for, or probable (associated with a specific diagnosi s that is being evaluated, monitored, or treated as if it exists) are acceptable and can be coded in the inpatient se tting, when documented at the time of discharge. Please use your independent medical judgment in providing your response. THIS QUERY IS PART OF THE PERMANENT MEDICAL RECORD
--- NOTE | 2024-02-24 12:36 | P.CDIM_ITS ---
PROVIDER RESPONSE TEXT: To clarify, the appropriate diagnosis supported by the clinical indicators: Small bowel obstruction: complete QUERY TEXT: PHYSICIAN'S DOCUMENTATION REQUEST Date of Query: 02/19/2024 12:07 PM EDT Patient Name: David Lantigua Admit Date: 02/15/2024 Dear Paul Thomas, A review of the medical record indicates additional documentation may be needed. Please review below and update the documentation accordingly. Clinical Indicators: Surgery note: H&P: Severe abdominal pain which has since resolved. Ct scan done when he was in pain s uggested high grade small bowel obstruction, partial twisting of the mesentery, with moderate free fluid. Op report: Small bowl obstruction, grossly ischemic with a band at the proximal segment, well demarca chano. Laparotomy, resection of about 220 cm small-bowel, with reanastomosis. Based on the above, possible specifics to the SBO documented: Small bowel obstruction partial, incomplete, complete etc. Other specific Other (explain) Clinically unable to determine (explain) Thank you, Darlene Monzon, CCS, CDIS Use of terms such as suspected, likely, concern for, or probable (associated with a specific diagnosi s that is being evaluated, monitored, or treated as if it exists) are acceptable and can be coded in the inpatient se tting, when documented at the time of discharge. Please use your independent medical judgment in providing your response. THIS QUERY IS PART OF THE PERMANENT MEDICAL RECORD
--- NOTE | 2024-02-24 13:59 | P.PNIM_ITS ---
Subjective Subjective Date of Service: 02/24/24 Interval History: No acute issues overnight. Tolerating diet Review of Systems no fevers or new c/o Physical Exam 2 Vital Signs: Vital Signs: Last Vital Signs Temp 97.1 F 02/24/24 11:47 Pulse 91 02/24/24 11:47 Resp 16 02/24/24 11:47 BP 104/45 L 02/24/24 11:47 Pulse Ox 99 02/24/24 11:47 O2 Del Method Room Air 02/24/24 11:47 O2 Flow Rate 2 02/17/24 07:47 BMI result Body Mass Index 27.1 Appearance: Alert.? Oriented ,comfortable. cvs: rrr, [id number]. res: clear to auscultation ,no rhonchii or wheezing abd: no rebound or guarding ,soft,nd , bs present. ext pulses present , no cyanosis . neuro: axo3 , nonfocal. Objective Data Active Medications Albuterol Sulfate (Albuterol Sulfate 90 Mcg 8 Gm Inhaler) 1 puff INHALE RQ6H PRN PRN Reason: Shortness Of Breath Last Admin: 02/23/24 22:36 Dose: 1 puff Documented By: PATSY Artificial Tears (Artificial Tears 15 Ml Drops) 1 drop EYE-BOTH DAILY [facility] Last Admin: 02/24/24 08:06 Dose: 1 drop Documented By: TIMOTHY Atenolol (Atenolol 25 Mg Tablet) 25 mg PO DAILY [facility]; Protocol Last Admin: 02/24/24 07:54 Dose: Not Given Documented By: TIMOTHY Non-Admin Reason: Decreased Blood Pressure Atorvastatin Calcium (Atorvastatin Calcium 40 Mg Tablet) 40 mg PO BEDTIME [facility] Last Admin: 02/23/24 22:04 Dose: 40 mg Documented By: CARLOS ENRIQUE Benzonatate (Benzonatate 100 Mg Capsule) 200 mg PO TID PRN PRN Reason: Cough Last Admin: 02/24/24 04:01 Dose: 200 mg Documented By: CARLOS ENRIQUE Fluphenazine HCl (Fluphenazine Hcl 1 Mg Tablet) 1 mg PO BEDTIME [facility] Last Admin: 02/23/24 22:04 Dose: 1 mg Documented By: CARLOS ENRIQUE Fluticasone Propionate (Fluticasone Propionate Nasal 16 Gm [place]) 1 spray NOSTRIL-B DAILY [facility] Last Admin: 02/24/24 08:06 Dose: 1 spray Documented By: TIMOTHY Fluticasone/Umeclidinium/Vilanterol (Fluticasone/Umeclidinium/Vilanterol 100/62.5/25 Blst.W.Dev) 1 puff INHALE RDAILY [facility] Last Admin: 02/24/24 08:12 Dose: 1 puff Documented By: BLASCL Gabapentin (Gabapentin 600 Mg Tablet) 600 mg PO TID [facility] Last Admin: 02/24/24 08:07 Dose: 600 mg Documented By: TIMOTHY Guaifenesin (Guaifenesin La 600 Mg Tab.Er.12h) 600 mg PO BID [facility] Last Admin: 02/24/24 08:07 Dose: 600 mg Documented By: TIMOTHY Heparin Sodium (Porcine) (Heparin Sodium,Porcine 5,000 Unit/Ml Vial) 5,000 unit SUBCUT Q12H [facility] Last Admin: 02/24/24 08:06 Dose: 5,000 unit Documented By: TIMOTHY Dextrose (D10) 250 mls @ 750 mls/hr IV Q15M PRN PRN Reason: per Hypoglycemia Standing Ord. Last Infusion: 02/19/24 02:40 Dose: Infused Documented By: ANGELA Nutrition (Parenteral) (Parenteral Nutrition) 2,160 mls @ 90 mls/hr IV .Q24H [facility]; Protocol Stop: 02/24/24 20:59 Last Admin: 02/23/24 22:11 Dose: 90 mls/hr Documented By: CARLOS ENRIQUE Insulin Glargine (Insulin Glargine,Hum.Rec.Anlog 100 Unit/Ml 10 Ml Vial) 10 unit SUBCUT BEDTIME [facility] Last Admin: 02/23/24 22:05 Dose: 10 unit Documented By: CARLOS ENRIQUE Insulin Human Lispro (Insulin Lispro 100 Unit/Ml 3 Ml Vial) 0 unit SUBCUT QIDACHS [facility]; Protocol Last Admin: 02/24/24 11:47 Dose: 2 unit Documented By: TIMOTHY Levothyroxine Sodium (Levothyroxine Sodium 150 Mcg Tablet) 150 mcg PO DAILY@0600 [facility] Last Admin: 02/24/24 05:12 Dose: 150 mcg Documented By: CARLOS ENRIQUE [place] Carbonate ([place] Carbonate Er 450 Mg Tablet.Er) 450 mg PO BID [facility] Last Admin: 02/24/24 08:07 Dose: 450 mg Documented By: TIMOTHY Loratadine (Loratadine 10 Mg Tablet) 10 mg PO DAILY [facility] Last Admin: 02/24/24 08:07 Dose: 10 mg Documented By: TIMOTHY Melatonin (Melatonin 3 Mg Tablet) 6 mg PO BEDTIME PRN PRN Reason: Insomnia Last Admin: 02/22/24 02:31 Dose: 6 mg Documented By: SUKUMAR Morphine Sulfate (Morphine Sulfate 4 Mg/Ml Cartridge) 4 mg IVPUSH Q4H PRN; Protocol PRN Reason: Pain, Severe (Pain Scale 7-10) Last Admin: 02/23/24 13:54 Dose: 4 mg Documented By: GALE Ondansetron HCl (Ondansetron Hcl 4 Mg/2 Ml Vial) 4 mg IVPUSH Q8H PRN PRN Reason: Nausea and Vomiting Last Admin: 02/16/24 09:36 Dose: 4 mg Documented By: NEO Oxycodone HCl (Oxycodone Hcl Immed Release 5 Mg Tablet) 5 mg PO Q4H PRN PRN Reason: Pain, Moderate(Pain Scale 4-6) Last Admin: 02/24/24 08:10 Dose: 5 mg Documented By: TIMOTHY Pharmacy Consult (Consult Rx Parenteral Nutrition Ordering) 1 each MISCELLANE DAILY PRN PRN Reason: Consult order Sodium Chloride (0.9 % Sodium Chloride Flush 3 Ml Syringe) 3 ml IVFLUSH QSHIFT [facility] Last Admin: 02/24/24 08:07 Dose: 3 ml Documented By: TIMOTHY Tamsulosin HCl (Tamsulosin Hcl 0.4 Mg Capsule) 0.4 mg PO BEDTIME [facility] Last Admin: 02/23/24 22:05 Dose: 0.4 mg Documented By: CARLOS ENRIQUE Labs 02/22/24 06:18 02/24/24 05:45 Labs: Laboratory Results - last 24 hr 02/23/24 02/23/24 02/24/24 17:00 20:28 05:45 Hold Purple Top SEE NOTE Anion Gap 11 L Estim Creat Clear Calc 113.3 Estimated GFR > 60 POC Glucose 265 H 142 H Random Glucose 244 H Calcium 8.8 Phosphorus 3.3 Magnesium 2.1 Albumin 3.2 L 02/24/24 02/24/24 07:06 11:14 Hold Purple Top Anion Gap Estim Creat Clear Calc Estimated GFR POC Glucose 251 H 178 H Random Glucose Calcium Phosphorus Magnesium Albumin Assessment and Plan (1) Status post small bowel resection: Status: Acute (2) Diabetes mellitus type 2 in nonobese: Status: Acute Plan 58yo M with COPD, HTN, HLD, DM2, hypothyroidism, cognitive impairment presenting with abdominal pain and admitted to surgical service for SBO; found to have ischemic small bowel, underwent laparotomy with resection of 2.2m small bowel + reanastomosis 02/16/24; medicine consult for management of comorbid conditions 1.PHILIP w/hyperkalemia -responded to volume -follow renals/divalents 2.HyperNa - free water deficit repleted with D5W -follow clinically 3.SBO - POD(7), NGT out 02/20/24. Advance to full liquid diet .... Tolerating well -further advancements as per surgery.-possible trial regular diet today 4.Acute hypoxic respiratory failure likely due to COPD but treated for possible PNA - ceftriaxone 02/15-02/18; PCT low and BCx negative so ABX stopped - continue nebulizer treatments + Trelegy inhaler - weaned off O2 5.DM2 -acceptable control on current therapies -lispro correctional scale -adjust as indicated 6.Mood disorder - fluphenazine + gabapentin + lithium -further recommendations as per Psychiatry Thank you for this consultation. We will continue to follow the patient while they are admitted to your service. Quality Stroke Does the patient have a stroke diagnosis?: No VTE Prior VTE?: No VTE Risk Level:: Medical - moderate - high VTE Device Contraindication: N/A - Device Ordered VTE Drug Contraindication: N/A - Med Ordered
[2024-02-24] MEDS: Albuterol Sulfate 90 MCG 8 GM INHALER 1 PUFF INHALE (16:09)
[2024-02-24 16:52] LABS: Glucose, Whole Blood 218 mg/dL (60-115)
[2024-02-24 20:26] LABS: Glucose, Whole Blood 275 mg/dL (60-115)
[2024-02-24] MEDS: Atorvastatin Calcium 40 MG TABLET PO (20:51)
[2024-02-24] MEDS: fluPHENAZine HCl 1 MG TABLET PO (20:51)
[2024-02-24] MEDS: Tamsulosin HCL 0.4 MG CAPSULE PO (20:51)
[2024-02-24] MEDS: Insulin Glargine,Hum.rec.anlog 100 UNIT/ML 10 ML VIAL 10 UNIT SUBCUT (20:53)
[2024-02-24] MEDS: Melatonin 3 MG TABLET 6 MG PO (22:11)
[2024-02-25] VITALS (11 sets, daily range): BP systolic 90–121; BP diastolic 51–68; PULSE 56–82; RESP 16–18; TEMP 36.4–37.4; O2SAT 89–97
--- NOTE | 2024-02-25 01:00 | HO.SKINPHOTO ---
Location: Right great toe Category: callus/ diabetic ulcer Stage: Length: Width: Depth: cm Location: Category: Stage: Length: Width: Depth: cm Location: Category: Stage: Length: Width: Depth: cm Location: Category: Stage: Length: Width: Depth: cm Location: Category: Stage: Length: Width: Depth: cm Location: Category: Stage: Length: Width: Depth: cm
--- NOTE | 2024-02-25 01:34 | PC.NURSE ---
Found callus/diabetic ulcer on patients right great toe. Photo obtained, wound consult placed. Area is dry, not draining, [employer].
[2024-02-25] MEDS: Levothyroxine Sodium 150 MCG TABLET PO (06:06)
[2024-02-25 07:10] LABS: Albumin Level 3.2 g/dL (3.5-5.0); Anion Gap 8 (12-20); Blood Urea Nitrogen 15 mg/dL (9-16); Calcium 8.9 mg/dL (8.4-10.2); Carbon Dioxide 28 mmol/L (22-29); Chloride 102 mmol/L (96-108); Creatinine Clr Calc Pharmacy 119.4; Estimated Glomerular Filt Rate > 60; Glucose Random 147 mg/dL (60-115); Magnesium 1.9 mg/dL (1.6-2.6); Phosphorus 3.7 mg/dL (2.7-4.5); Potassium 4.4 mmol/L (3.3-5.1); Sodium 134 mmol/L (135-145)
[2024-02-25 07:35] LABS: Glucose, Whole Blood 177 mg/dL (60-115)
[2024-02-25] MEDS: Insulin Lispro 100 UNIT/ML 3 ML VIAL SUBCUT ×3 (07:51→21:44)
[2024-02-25] MEDS: Artificial Tears 15 ML DROPS 1 DROP EYE-BOTH (07:51)
[2024-02-25] MEDS: Fluticasone Propionate Nasal 16 GM SPRAY 1 SPRAY NOSTRIL-B (07:51)
[2024-02-25] MEDS: guaiFENesin LA 600 MG TAB.ER.12H PO ×2 (07:52→21:43)
[2024-02-25] MEDS: 0.9 % Sodium Chloride Flush 3 ML SYRINGE IVFLUSH (07:52)
[2024-02-25] MEDS: Lithium Carbonate ER 450 MG TABLET.ER PO ×2 (07:52→21:43)
[2024-02-25] MEDS: Loratadine 10 MG TABLET PO (07:52)
[2024-02-25] MEDS: Gabapentin 600 MG TABLET PO ×3 (07:52→21:44)
[2024-02-25] MEDS: Fluticasone/Umeclidinium/Vilanterol 100/62.5/25 BLST.W.DEV 1 PUFF INHALE (08:19)
--- NOTE | 2024-02-25 08:19 | P.PNGS_ITS ---
Subjective Subjective Date of Service: 02/25/24 <Hailey Roman PA-C - Last Filed: 02/25/24 08:22> 02/25/24 <Paul Thomas MD - Last Filed: 02/25/24 08:36> Interval history: Continues to feel improved, reports he needs a counselor. Tolerating solid diet. Passing flatus. <Hailey Roman PA-C - Last Filed: 02/25/24 08:22> Physical Exam 2 Vital Signs: Vital Signs: Last Vital Signs Temp 99.4 F 02/25/24 07:24 Pulse 73 02/25/24 07:24 Resp 16 02/25/24 07:24 BP 108/52 L 02/25/24 07:24 Pulse Ox 92 02/25/24 07:24 O2 Del Method Room Air 02/25/24 07:24 O2 Flow Rate 2 02/17/24 07:47 BMI result Body Mass Index 27.1 <Hailey Roman PA-C - Last Filed: 02/25/24 08:22> Const: General: comfortable, no acute distress and alert <Hailey Roman PA-C - Last Filed: 02/25/24 08:22> Resp: Effort & Inspection: normal respiratory effort <MORAIMA Bright Last Filed: 02/25/24 08:22> GI: Other: incision with bright red erythema at umbilicus, two kelli removed and wound probed with qtip without evacuation of any significant fluid, no purulence <Hailey Roman PA-C - Last Filed: 02/25/24 08:22> Inspection: No distended <Hailey Roman PA-C - Last Filed: 02/25/24 08:22> Palpation (GI): Soft to palpation and nontender <MORAIMA Bright Last Filed: 02/25/24 08:22> Skin: General skin exam: no rashes or lesions noted <MORAIMA Bright Last Filed: 02/25/24 08:22> Objective Data Active Medications Albuterol Sulfate (Albuterol Sulfate 90 Mcg 8 Gm Inhaler) 1 puff INHALE RQ6H PRN PRN Reason: Shortness Of Breath Last Admin: 02/24/24 16:09 Dose: 1 puff Documented By: MISSAEL Artificial Tears (Artificial Tears 15 Ml Drops) 1 drop EYE-BOTH DAILY [facility] Last Admin: 02/25/24 07:51 Dose: 1 drop Documented By: LINDA Atenolol (Atenolol 25 Mg Tablet) 25 mg PO DAILY [facility]; Protocol Last Admin: 02/25/24 07:46 Dose: Not Given Documented By: LINDA Non-Admin Reason: Decreased Blood Pressure Atorvastatin Calcium (Atorvastatin Calcium 40 Mg Tablet) 40 mg PO BEDTIME [facility] Last Admin: 02/24/24 20:51 Dose: 40 mg Documented By: WENDY Benzonatate (Benzonatate 100 Mg Capsule) 200 mg PO TID PRN PRN Reason: Cough Last Admin: 02/24/24 04:01 Dose: 200 mg Documented By: CARLOS ENRIQUE Fluphenazine HCl (Fluphenazine Hcl 1 Mg Tablet) 1 mg PO BEDTIME [facility] Last Admin: 02/24/24 20:51 Dose: 1 mg Documented By: WENDY Fluticasone Propionate (Fluticasone Propionate Nasal 16 Gm [place]) 1 spray NOSTRIL-B DAILY [facility] Last Admin: 02/25/24 07:51 Dose: 1 spray Documented By: LINDA Fluticasone/Umeclidinium/Vilanterol (Fluticasone/Umeclidinium/Vilanterol 100/62.5/25 Blst.W.Dev) 1 puff INHALE RDAILY [facility] Last Admin: 02/25/24 08:19 Dose: 1 puff Documented By: ARLETTE Gabapentin (Gabapentin 600 Mg Tablet) 600 mg PO TID [facility] Last Admin: 02/25/24 07:52 Dose: 600 mg Documented By: LINDA Guaifenesin (Guaifenesin La 600 Mg Tab.Er.12h) 600 mg PO BID [facility] Last Admin: 02/25/24 07:52 Dose: 600 mg Documented By: LINDA Heparin Sodium (Porcine) (Heparin Sodium,Porcine 5,000 Unit/Ml Vial) 5,000 unit SUBCUT Q12H [facility] Last Admin: 02/24/24 20:52 Dose: 5,000 unit Documented By: WENDY Dextrose (D10) 250 mls @ 750 mls/hr IV Q15M PRN PRN Reason: per Hypoglycemia Standing Ord. Last Infusion: 02/19/24 02:40 Dose: Infused Documented By: ANGELA Insulin Glargine (Insulin Glargine,Hum.Rec.Anlog 100 Unit/Ml 10 Ml Vial) 10 unit SUBCUT BEDTIME [facility] Last Admin: 02/24/24 20:53 Dose: 10 unit Documented By: WENDY Insulin Human Lispro (Insulin Lispro 100 Unit/Ml 3 Ml Vial) 0 unit SUBCUT QIDACHS [facility]; Protocol Last Admin: 02/25/24 07:51 Dose: 2 unit Documented By: LINDA Levothyroxine Sodium (Levothyroxine Sodium 150 Mcg Tablet) 150 mcg PO DAILY@0600 [facility] Last Admin: 02/25/24 06:06 Dose: 150 mcg Documented By: WENDY [place] Carbonate ([place] Carbonate Er 450 Mg Tablet.Er) 450 mg PO BID [facility] Last Admin: 02/25/24 07:52 Dose: 450 mg Documented By: LINDA Loratadine (Loratadine 10 Mg Tablet) 10 mg PO DAILY [facility] Last Admin: 02/25/24 07:52 Dose: 10 mg Documented By: LINDA Melatonin (Melatonin 3 Mg Tablet) 6 mg PO BEDTIME PRN PRN Reason: Insomnia Last Admin: 02/24/24 22:11 Dose: 6 mg Documented By: DOE Morphine Sulfate (Morphine Sulfate 4 Mg/Ml Cartridge) 4 mg IVPUSH Q4H PRN; Protocol PRN Reason: Pain, Severe (Pain Scale 7-10) Last Admin: 02/23/24 13:54 Dose: 4 mg Documented By: GALE Ondansetron HCl (Ondansetron Hcl 4 Mg/2 Ml Vial) 4 mg IVPUSH Q8H PRN PRN Reason: Nausea and Vomiting Last Admin: 02/16/24 09:36 Dose: 4 mg Documented By: NEO Oxycodone HCl (Oxycodone Hcl Immed Release 5 Mg Tablet) 5 mg PO Q4H PRN PRN Reason: Pain, Moderate(Pain Scale 4-6) Last Admin: 02/24/24 22:10 Dose: 5 mg Documented By: DOE Pharmacy Consult (Consult Rx Parenteral Nutrition Ordering) 1 each MISCELLANE DAILY PRN PRN Reason: Consult order Sodium Chloride (0.9 % Sodium Chloride Flush 3 Ml Syringe) 3 ml IVFLUSH QSHIFT [facility] Last Admin: 02/25/24 07:52 Dose: 3 ml Documented By: LINDA Tamsulosin HCl (Tamsulosin Hcl 0.4 Mg Capsule) 0.4 mg PO BEDTIME [facility] Last Admin: 02/24/24 20:51 Dose: 0.4 mg Documented By: WENDY <Hailey Roman PA-C - Last Filed: 02/25/24 08:22> Labs CBC & Chem 7: 02/22/24 06:18 02/25/24 05:51 <Hailey Roman PA-C - Last Filed: 02/25/24 08:22> Labs: Laboratory Results - last 24 hr 02/24/24 02/24/24 02/24/24 11:14 16:48 20:22 Hold Purple Top Anion Gap Estim Creat Clear Calc Estimated GFR POC Glucose 178 H 218 H 275 H Random Glucose Calcium Phosphorus Magnesium Albumin 02/25/24 02/25/24 05:51 07:24 Hold Purple Top SEE NOTE Anion Gap 8 L Estim Creat Clear Calc 119.4 Estimated GFR > 60 POC Glucose 177 H Random Glucose 147 H Calcium 8.9 Phosphorus 3.7 Magnesium 1.9 Albumin 3.2 L <Hailey Roman PA-C - Last Filed: 02/25/24 08:22> Procedures Date of Service Date of Service: 02/25/24 <Hailey Roman PA-C - Last Filed: 02/25/24 08:22> 02/25/24 <Paul Thomas MD - Last Filed: 02/25/24 08:36> Progress Note: A&P Assessment and plan (1) Status post small bowel resection: Status: Acute <Hailey Roman PA-C - Last Filed: 02/25/24 08:22> (2) SBO (small bowel obstruction): Status: Acute <Hailey Roman PA-C - Last Filed: 02/25/24 08:22> Assessment and Plan: Doing well surgically and seems medically stable. Diet as tolerated. Abd remains benign, some incisional erythema and two kelli removed and wound probed, dry dressing placed. Cont to follow. Increasing activity, PT consult for dispo planning. <Hailey Roman PA-C - Last Filed: 02/25/24 08:22> Time Spent With Patient Time: Total time managing care of this patient today ____ minutes. <Hailey Roman PA-C - Last Filed: 02/25/24 08:22> Quality Stroke Does the patient have a stroke diagnosis?: No <Hailey Roman PA-C - Last Filed: 02/25/24 08:22> VTE Prior VTE?: No <Hailey Roman PA-C - Last Filed: 02/25/24 08:22> VTE Risk Level:: Medical - moderate - high <Hailey Roman PA-C - Last Filed: 02/25/24 08:22> VTE Device Contraindication: N/A - Device Ordered <MORAIMA Bright Last Filed: 02/25/24 08:22> VTE Drug Contraindication: N/A - Med Ordered <Hailey Roman PA-C - Last Filed: 02/25/24 08:22>
[2024-02-25] MEDS: Heparin Sodium,Porcine 5,000 UNIT/ML VIAL 5000 UNIT SUBCUT ×2 (09:09→21:44)
[2024-02-25] MEDS: oxyCODONE HCl Immed Release 5 MG TABLET PO (09:09)
--- NOTE | 2024-02-25 10:52 | P.PNIM_ITS ---
Subjective Subjective Date of Service: 02/25/24 Interval History: No acute issues overnight. Tolerating diet Review of Systems no fevers or nausea or vomiting Physical Exam 2 Vital Signs: Vital Signs: Last Vital Signs Temp 99.4 F 02/25/24 07:24 Pulse 82 02/25/24 08:21 Resp 16 02/25/24 08:21 BP 108/52 L 02/25/24 07:24 Pulse Ox 92 02/25/24 07:24 O2 Del Method Room Air 02/25/24 07:24 O2 Flow Rate 2 02/17/24 07:47 BMI result Body Mass Index 27.1 Appearance: Alert.? Oriented ,comfortable. cvs: rrr, [id number]. res: clear to auscultation ,no rhonchii or wheezing abd: no rebound or guarding ,soft,nd , bs present. ext pulses present , no cyanosis . neuro: axo3 , nonfocal. Objective Data Active Medications Albuterol Sulfate (Albuterol Sulfate 90 Mcg 8 Gm Inhaler) 1 puff INHALE RQ6H PRN PRN Reason: Shortness Of Breath Last Admin: 02/24/24 16:09 Dose: 1 puff Documented By: MISSAEL Artificial Tears (Artificial Tears 15 Ml Drops) 1 drop EYE-BOTH DAILY [facility] Last Admin: 02/25/24 07:51 Dose: 1 drop Documented By: LINDA Atenolol (Atenolol 25 Mg Tablet) 25 mg PO DAILY [facility]; Protocol Last Admin: 02/25/24 07:46 Dose: Not Given Documented By: LINDA Non-Admin Reason: Decreased Blood Pressure Atorvastatin Calcium (Atorvastatin Calcium 40 Mg Tablet) 40 mg PO BEDTIME [facility] Last Admin: 02/24/24 20:51 Dose: 40 mg Documented By: WENDY Benzonatate (Benzonatate 100 Mg Capsule) 200 mg PO TID PRN PRN Reason: Cough Last Admin: 02/24/24 04:01 Dose: 200 mg Documented By: CARLOS ENRIQUE Fluphenazine HCl (Fluphenazine Hcl 1 Mg Tablet) 1 mg PO BEDTIME [facility] Last Admin: 02/24/24 20:51 Dose: 1 mg Documented By: WENDY Fluticasone Propionate (Fluticasone Propionate Nasal 16 Gm [place]) 1 spray NOSTRIL-B DAILY [facility] Last Admin: 02/25/24 07:51 Dose: 1 spray Documented By: LINDA Fluticasone/Umeclidinium/Vilanterol (Fluticasone/Umeclidinium/Vilanterol 100/62.5/25 Blst.W.Dev) 1 puff INHALE RDAILY [facility] Last Admin: 02/25/24 08:19 Dose: 1 puff Documented By: ARLETTE Gabapentin (Gabapentin 600 Mg Tablet) 600 mg PO TID [facility] Last Admin: 02/25/24 07:52 Dose: 600 mg Documented By: LINDA Guaifenesin (Guaifenesin La 600 Mg Tab.Er.12h) 600 mg PO BID [facility] Last Admin: 02/25/24 07:52 Dose: 600 mg Documented By: LINDA Heparin Sodium (Porcine) (Heparin Sodium,Porcine 5,000 Unit/Ml Vial) 5,000 unit SUBCUT Q12H [facility] Last Admin: 02/25/24 09:09 Dose: 5,000 unit Documented By: LINDA Dextrose (D10) 250 mls @ 750 mls/hr IV Q15M PRN PRN Reason: per Hypoglycemia Standing Ord. Last Infusion: 02/19/24 02:40 Dose: Infused Documented By: ANGELA Insulin Glargine (Insulin Glargine,Hum.Rec.Anlog 100 Unit/Ml 10 Ml Vial) 10 unit SUBCUT BEDTIME [facility] Last Admin: 02/24/24 20:53 Dose: 10 unit Documented By: WENDY Insulin Human Lispro (Insulin Lispro 100 Unit/Ml 3 Ml Vial) 0 unit SUBCUT QIDACHS [facility]; Protocol Last Admin: 02/25/24 07:51 Dose: 2 unit Documented By: LINDA Levothyroxine Sodium (Levothyroxine Sodium 150 Mcg Tablet) 150 mcg PO DAILY@0600 [facility] Last Admin: 02/25/24 06:06 Dose: 150 mcg Documented By: WENDY [place] Carbonate ([place] Carbonate Er 450 Mg Tablet.Er) 450 mg PO BID [facility] Last Admin: 02/25/24 07:52 Dose: 450 mg Documented By: LINDA Loratadine (Loratadine 10 Mg Tablet) 10 mg PO DAILY [facility] Last Admin: 02/25/24 07:52 Dose: 10 mg Documented By: LINDA Melatonin (Melatonin 3 Mg Tablet) 6 mg PO BEDTIME PRN PRN Reason: Insomnia Last Admin: 02/24/24 22:11 Dose: 6 mg Documented By: DOE Morphine Sulfate (Morphine Sulfate 4 Mg/Ml Cartridge) 4 mg IVPUSH Q4H PRN; Protocol PRN Reason: Pain, Severe (Pain Scale 7-10) Last Admin: 02/23/24 13:54 Dose: 4 mg Documented By: GALE Ondansetron HCl (Ondansetron Hcl 4 Mg/2 Ml Vial) 4 mg IVPUSH Q8H PRN PRN Reason: Nausea and Vomiting Last Admin: 02/16/24 09:36 Dose: 4 mg Documented By: NEO Oxycodone HCl (Oxycodone Hcl Immed Release 5 Mg Tablet) 5 mg PO Q4H PRN PRN Reason: Pain, Moderate(Pain Scale 4-6) Last Admin: 02/25/24 09:09 Dose: 5 mg Documented By: LINDA Pharmacy Consult (Consult Rx Parenteral Nutrition Ordering) 1 each MISCELLANE DAILY PRN PRN Reason: Consult order Sodium Chloride (0.9 % Sodium Chloride Flush 3 Ml Syringe) 3 ml IVFLUSH [facility] Last Admin: 02/25/24 07:52 Dose: 3 ml Documented By: LINDA Tamsulosin HCl (Tamsulosin Hcl 0.4 Mg Capsule) 0.4 mg PO BEDTIME [facility] Last Admin: 02/24/24 20:51 Dose: 0.4 mg Documented By: LYSZ Labs 02/22/24 06:18 02/25/24 05:51 Labs: Laboratory Results - last 24 hr 02/24/24 02/24/24 02/24/24 11:14 16:48 20:22 Hold Purple Top Anion Gap Estim Creat Clear Calc Estimated GFR POC Glucose 178 H 218 H 275 H Random Glucose Calcium Phosphorus Magnesium Albumin 02/25/24 02/25/24 05:51 07:24 Hold Purple Top SEE NOTE Anion Gap 8 L Estim Creat Clear Calc 119.4 Estimated GFR > 60 POC Glucose 177 H Random Glucose 147 H Calcium 8.9 Phosphorus 3.7 Magnesium 1.9 Albumin 3.2 L Assessment and Plan (1) Status post small bowel resection: Status: Acute (2) Diabetes mellitus type 2 in nonobese: Status: Acute Plan 58yo M with COPD, HTN, HLD, DM2, hypothyroidism, cognitive impairment presenting with abdominal pain and admitted to surgical service for SBO; found to have ischemic small bowel, underwent laparotomy with resection of 2.2m small bowel + reanastomosis 02/16/24; medicine consult for management of comorbid conditions. Boderline bp: boderline orthostasis -possible sec to dec po intake seems dizziness added ivf / chano stockings moniter bp closely PHILIP w/hyperkalemia -responded to volume -follow renals/divalents HyperNa - free water deficit repleted with D5W -follow clinically SBO - POD(7), NGT out 02/20/24. Advance to full liquid diet .... Tolerating well -further advancements as per surgery.-possible trial regular diet today acute hypoxic respiratory failure likely due to COPD but treated for possible PNA - ceftriaxone 02/15-02/18; PCT low and BCx negative so ABX stopped - continue nebulizer treatments + Trelegy inhaler - weaned off O2 DM2 -acceptable control on current therapies -lispro correctional scale -adjust as indicated Mood disorder - fluphenazine + gabapentin + lithium added lithium levels for morning -further recommendations as per Psychiatry-official consult pending d/w primary team,We will continue to follow the patient while they are admitted to your service. Quality Stroke Does the patient have a stroke diagnosis?: No VTE Prior VTE?: No VTE Risk Level:: Medical - moderate - high VTE Device Contraindication: N/A - Device Ordered VTE Drug Contraindication: N/A - Med Ordered
[2024-02-25 11:20] LABS: Glucose, Whole Blood 226 mg/dL (60-115)
[2024-02-25] MEDS: 0.9 % Sodium Chloride 1,000 ML 100 ML IVCONT ×2 (11:52→23:01)
--- NOTE | 2024-02-25 14:00 | HO.WOUND ---
Wound Consult: Initial 58yr old? Male admitted to [facility] on 02/14/24 - See progress notes and H&P for detailed history.? Wound consult placed for Right Great Toe wound.? Patient agreeable to assessment and photo documentation.? Patient reports neuropathy and denies pain. Sock removed no dressing in place foul odor noted - see below for details documentation. Dr. Thomas notified of foul odor and concern for debridement needed along with photo sent. Right Great Toe Right Great Toe Etiology: Diabetic Foot Wound??Present on Admission Measurements: see charting for detailed measurement Wound Bed: Thick callused tissue trapping drainage macerated edges and purple edges noted Drainage / Odor: Foul smelling drainage Edges: ? irregular and nonadherent [place] wound: Macerated Fluctuance noted Pain: denies Goals of Treatment: ? Defer to Dr. Thomas for assessment and consider debridement Recommendations: 1. Turn and Reposition every 2 hours and as needed for patient comfort.? Use pillows or wedges to support off loading positions. 2. Off Load all bony prominences with use of pillows and heel boots if needed.? Apply Preventative foams where needed. ? 3. Monitor for incontinence and moisture control, use barrier creams when needed for prevention and treatment. 4. Provide adequate and supplemental nutrition.? 5. Continue low air loss mattress. 6. When applicable maintain blood glucose levels per Providers order. 7. Right Great Toe - Defer to Dr. Thomas - Cleanse and irrigate with NS pat dry. Cover wound bed with dry gauze and wrap. Change daily. Will follow up after Dr. Thomas assessment. Re-consult wound care Nurse for wound deterioration or wound changes.
--- NOTE | 2024-02-25 15:04 | PM.EVENT ---
Event Note Date of Service: 02/25/24 Event Note: Noted to have an ulcer on the base of the right big toe He has a very thick callus with nonviable tissue I did sharp excisional debridement using fine scissors I applied light packing to the area and wrapped the foot with dressings and Maxim roll Continue good wound care daily Patient otherwise tolerating diet Abdomen soft and benign Time Spent With Patient Time: Total time managing care of this patient today ____ minutes.
--- NOTE | 2024-02-25 15:05 | W.PM.OPN ---
Operative Note Operative Note Date of Service: 02/25/24 Narrative: Preop diagnosis: Ulcer with thick callus on base of right big toe with nonviable tissue Postop diagnosis: The same Procedure: Excisional debridement of callus and ulcer on the right big toe, area debrided about 2 x 2 cm done at bedside Surgeon: Paul Thomas MD The patient was noted to have this ulcer at the plantar aspect of the right big toe the base. This had thick callus nonviable tissue. I did sharp excisional debridement of the nonviable tissue using fine scissors. Area excised was about 2 x 2 cm. I removed full-thickness of the skin and thick subcutaneous fat I applied light packing and dressings and wrapped the foot with Maxim roll. There was minimal blood loss. The patient tolerated procedure well
[2024-02-25 16:33] LABS: Glucose, Whole Blood 122 mg/dL (60-115)
[2024-02-25 20:33] LABS: Glucose, Whole Blood 174 mg/dL (60-115)
[2024-02-25] MEDS: Tamsulosin HCL 0.4 MG CAPSULE PO (21:43)
[2024-02-25] MEDS: fluPHENAZine HCl 1 MG TABLET PO (21:43)
[2024-02-25] MEDS: Atorvastatin Calcium 40 MG TABLET PO (21:43)
[2024-02-25] MEDS: Insulin Glargine,Hum.rec.anlog 100 UNIT/ML 10 ML VIAL 10 UNIT SUBCUT (21:44)
[2024-02-26] VITALS (8 sets, daily range): BP systolic 93–108; BP diastolic 50–55; PULSE 61–75; RESP 16–18; TEMP 36.5–37.2; O2SAT 95–100
[2024-02-26] MEDS: Melatonin 3 MG TABLET 6 MG PO (01:51)
[2024-02-26] MEDS: oxyCODONE HCl Immed Release 5 MG TABLET PO ×3 (02:58→13:33)
[2024-02-26] MEDS: Levothyroxine Sodium 150 MCG TABLET PO (05:32)
[2024-02-26 06:13] LABS: Lithium 0.61 mmol/L (0.60-1.20)
[2024-02-26 06:19] LABS: Anion Gap 8 (12-20); Blood Urea Nitrogen 13 mg/dL (9-16); Calcium 8.4 mg/dL (8.4-10.2); Carbon Dioxide 28 mmol/L (22-29); Chloride 103 mmol/L (96-108); Creatinine Clr Calc Pharmacy 126.2; Estimated Glomerular Filt Rate > 60; Glucose Random 144 mg/dL (60-115); Magnesium 1.9 mg/dL (1.6-2.6); Phosphorus 3.4 mg/dL (2.7-4.5); Potassium 4.2 mmol/L (3.3-5.1); Sodium 135 mmol/L (135-145)
[2024-02-26 07:13] LABS: Glucose, Whole Blood 143 mg/dL (60-115)
[2024-02-26] MEDS: Fluticasone Propionate Nasal 16 GM SPRAY 1 SPRAY NOSTRIL-B (07:23)
[2024-02-26] MEDS: 0.9 % Sodium Chloride 1,000 ML 100 ML IVCONT (07:23)
[2024-02-26] MEDS: guaiFENesin LA 600 MG TAB.ER.12H PO (07:24)
[2024-02-26] MEDS: Loratadine 10 MG TABLET PO (07:24)
[2024-02-26] MEDS: Gabapentin 600 MG TABLET PO ×2 (07:24→15:13)
[2024-02-26] MEDS: Artificial Tears 15 ML DROPS 1 DROP EYE-BOTH (07:24)
[2024-02-26] MEDS: Lithium Carbonate ER 450 MG TABLET.ER PO (07:24)
--- NOTE | 2024-02-26 08:23 | P.CNPS_ITS ---
History of Present Illness Date of Service: 02/26/2024 Chief Complaint: small bowel obstruction Requesting physician: Jeff Alvarez Discussed with referring provider: Yes Sources of Information: patient interviewed, chart reviewed and crisis/core team assessment reviewed HPI Narrative: Mr. Lantigua is a 58 year-old with a hx of schizophrenia was brought to ED due to nausea, abdominal pain, SOB. Pt found to have small bowel obstruction, requiring resection of 220cm of grossly ischemic small bowel. He has been on clozaril, which was stopped. Concern of clozaril causing constipation and subsequent bowel obstruction. Pt seen in his room. He presents as calm and pleasant on approach. He reports he is feeling better regarding pain after surgery. He reports he has been on clozaril for several years and this medication has worked well for him. He denies SI/HI. He reports at times seeing angels and hearing angels. He reports he believes he is the main pamela that was given tasks by higher garcia to help others. He does note that without clozaril I don't do well. Collateral information was gathered from his OP psychiatrist, Dr. Michelle Erwin who reports clozaril has been most effective antipsychotic for him. He does tend to become more disorganized and agitated without the medication. He used to be on lower dose of prolixin. We discussed reintroducing clozaril, maintaining bowel regimen to prevent further constipation and gain leading to obstruction. For now will increase prolixin to 2.5mg po BID, until dose of clozaril at more therapeutic dose. [facility] Medical History (Updated 02/26/24 @ 12:20 by Tuyet Pat) Hypothyroidism Diabetes mellitus type 2 in nonobese Hyperlipidemia Personal history of nicotine dependence Rash Loculated pleural effusion (~10/2020) Asbestos-induced pleural plaque Traumatic brain injury Schizophrenia HTN (hypertension) COPD (chronic obstructive pulmonary disease) Asthma Diagnostics Vital Signs (24Hr): Vital Signs - 24 hr 02/25/24 11:21 02/25/24 11:40 02/25/24 11:49 Temperature 97.7 F Pulse Rate 80 72 Respiratory Rate 16 Blood Pressure 90/60 107/55 L 107/51 L Pulse Oximetry 97 Oxygen Delivery Method Room Air 02/25/24 12:58 02/25/24 13:00 02/25/24 15:15 Temperature 98.1 F Pulse Rate 73 56 79 Respiratory Rate 18 Blood Pressure 108/54 L 90/52 L 121/58 L Pulse Oximetry 96 Oxygen Delivery Method Room Air 02/25/24 19:45 02/25/24 23:34 02/26/24 03:01 Temperature 98.1 F 97.8 F 97.7 F Pulse Rate 66 68 66 Respiratory Rate 16 16 16 Blood Pressure 110/56 L 106/68 105/53 L Pulse Oximetry 95 93 95 Oxygen Delivery Method Room Air Room Air Room Air 02/26/24 07:06 Temperature 98.6 F Pulse Rate 62 Respiratory Rate 18 Blood Pressure 102/55 L Pulse Oximetry 96 Oxygen Delivery Method Room Air BMI result Body Mass Index 27.1 Labs 02/22/24 06:18 02/26/24 05:23 Labs: Laboratory Results - last 48 hr 02/24/24 02/24/24 02/24/24 11:14 16:48 20:22 Hold Purple Top Sodium Potassium Chloride Carbon Dioxide Anion Gap BUN Creatinine Estim Creat Clear Calc Estimated GFR POC Glucose 178 H 218 H 275 H Random Glucose Calcium Phosphorus Magnesium Albumin [place] 02/25/24 02/25/24 02/25/24 05:51 07:24 11:12 Hold Purple Top SEE NOTE Sodium 134 L Potassium 4.4 Chloride 102 Carbon Dioxide 28 Anion Gap 8 L BUN 15 Creatinine 0.74 Estim Creat Clear Calc 119.4 Estimated GFR > 60 POC Glucose 177 H 226 H Random Glucose 147 H Calcium 8.9 Phosphorus 3.7 Magnesium 1.9 Albumin 3.2 L [place] 02/25/24 02/25/24 02/26/24 16:17 20:26 05:23 Hold Purple Top SEE NOTE Sodium 135 Potassium 4.2 Chloride 103 Carbon Dioxide 28 Anion Gap 8 L BUN 13 Creatinine 0.70 Estim Creat Clear Calc 126.2 Estimated GFR > 60 POC Glucose 122 H 174 H Random Glucose 144 H Calcium 8.4 Phosphorus 3.4 Magnesium 1.9 Albumin 3.0 L [place] 0.61 02/26/24 07:09 Hold Purple Top Sodium Potassium Chloride Carbon Dioxide Anion Gap BUN Creatinine Estim Creat Clear Calc Estimated GFR POC Glucose 143 H Random Glucose Calcium Phosphorus Magnesium Albumin [place] Imaging Radiology Impressions: ITS Impressions Chest X-Ray 02/15/24 14:12 IMPRESSION: Diffuse reticular-nodular interstitial opacities with additional patchy nodular opacities in the bilateral lower lobes. Trace left pleural effusion. Abdomen/Pelvis CT 02/15/24 14:44 IMPRESSION: 1. Findings are consistent with high-grade small bowel obstruction with zone of transition in the right hemiabdomen with extensive small bowel mesentery edema and fluid in the right hemiabdomen. There is mild swirling of the mesentery in the right hemiabdomen with mild rightward displacement of the SMA and SMV, with SMV coursing on the right and posterior to the SMA suggesting partial twisting of the small bowel mesentery here. No evidence of intestinal pneumatosis. No evidence of mesenteric or portal venous air. Small ascites. No evidence of free intraperitoneal air. Differential possibility for obstruction may include adhesions, internal hernia, small bowel volvulus etc. 2. Moderate to large stool burden in the transverse colon, left-sided colon and rectosigmoid colon. 3. Mild intrahepatic and extrahepatic biliary ductal dilatation. No radiopaque calculi are seen. Recommend correlation with liver function tests. 4. Calcified pleural plaques at the lung bases. Trace right pleural effusion with pleural thickening. Mild pleural thickening of the left lung base posteriorly. Findings are likely related to prior asbestos exposure. Recommend clinical correlation. Fleischner guidelines were followed. The results were discussed with EDEL Kennedy on 02/15/2024 at 3:[address] 02/15/24 17:26 IMPRESSION: 1. Diffuse emphysematous changes. Slightly increased reticular and interstitial opacities with bronchial thickening may reflect underlying infectious/inflammatory etiology though progression of emphysematous changes not excluded. Region of increased consolidation along the posterior aspect of the lingula abutting the left major fissure may reflect atelectasis versus infectious/inflammatory etiology. 2. Stable atelectatic changes versus scarring involving the lingula and left lower lobe. 3. Stable nodular focus abutting the right minor fissure measuring 6 mm. 4. New 2 mm nodule anterior aspect right upper lobe. Follow-up as per Fleischner criteria. 5. Small amount of perihepatic and perisplenic ascites noted. 6. Osteopenia. According to the UPDATED 2017 Fleischner Society recommendations, the advised follow-up imaging for solid nodules < 6 mm is: HIGH RISK PATIENT: Optional CT at 12 months. KUB X-Ray 02/16/24 07:34 IMPRESSION: 1. Similar to slightly increased dilatation of central small bowel loops. 2. Moderate to large colonic stool burden. Chest X-Ray 02/17/24 17:14 IMPRESSION: Enteric tube tip terminates at or near the GE junction. Recommend advancement. Nonspecific lung base opacities Pneumoperitoneum with new skin kelli suggesting this is related to recent surgery. Chest X-Ray 02/17/24 22:50 IMPRESSION: NG tube with tip just beyond the GE junction. Chest X-Ray 02/18/24 14:10 IMPRESSION: Nasogastric tube tip projects over proximal to mid stomach. Chest X-Ray 02/18/24 19:43 IMPRESSION: 1. Enterogastric tube in appropriate position. 2. Diffuse interstitial prominence with patchy left midlung opacities, similar when compared to the prior examination. Trace bilateral pleural effusions versus pleural thickening, unchanged. Medications Medications Current Medications Albuterol Sulfate (Albuterol Sulfate 90 Mcg 8 Gm Inhaler) 1 puff INHALE RQ6H PRN PRN Reason: Shortness Of Breath Last Admin: 02/24/24 16:09 Dose: 1 puff Artificial Tears (Artificial Tears 15 Ml Drops) 1 drop EYE-BOTH DAILY [facility] Last Admin: 02/26/24 07:24 Dose: 1 drop Atenolol (Atenolol 25 Mg Tablet) 25 mg PO DAILY [facility]; Protocol Last Admin: 02/25/24 07:46 Dose: Not Given Atorvastatin Calcium (Atorvastatin Calcium 40 Mg Tablet) 40 mg PO BEDTIME [facility] Last Admin: 02/25/24 21:43 Dose: 40 mg Benzonatate (Benzonatate 100 Mg Capsule) 200 mg PO TID PRN PRN Reason: Cough Last Admin: 02/24/24 04:01 Dose: 200 mg Fluphenazine HCl (Fluphenazine Hcl 1 Mg Tablet) 1 mg PO BEDTIME [facility] Last Admin: 02/25/24 21:43 Dose: 1 mg Fluticasone Propionate (Fluticasone Propionate Nasal 16 Gm [place]) 1 spray NOSTRIL-B DAILY [facility] Last Admin: 02/26/24 07:23 Dose: 1 spray Fluticasone/Umeclidinium/Vilanterol (Fluticasone/Umeclidinium/Vilanterol 100/62.5/25 Blst.W.Dev) 1 puff INHALE RDAILY [facility] Last Admin: 02/25/24 08:19 Dose: 1 puff Gabapentin (Gabapentin 600 Mg Tablet) 600 mg PO TID [facility] Last Admin: 02/26/24 07:24 Dose: 600 mg Guaifenesin (Guaifenesin [place] 600 Mg Tab.Er.12h) 600 mg PO BID [facility] Last Admin: 02/26/24 07:24 Dose: 600 mg Heparin Sodium (Porcine) (Heparin Sodium,Porcine 5,000 Unit/Ml Vial) 5,000 unit SUBCUT Q12H [facility] Last Admin: 02/25/24 21:44 Dose: 5,000 unit Dextrose (D10) 250 mls @ 750 mls/hr IV Q15M PRN PRN Reason: per Hypoglycemia Standing Ord. Last Infusion: 02/19/24 02:40 Dose: Infused Sodium Chloride (Ns) 1,000 mls @ 100 mls/hr IVCONT .Q10H [facility] Last Admin: 02/26/24 07:23 Dose: 100 mls/hr Insulin Glargine (Insulin Glargine,Hum.Rec.Anlog 100 Unit/Ml 10 Ml Vial) 10 unit SUBCUT BEDTIME [facility] Last Admin: 02/25/24 21:44 Dose: 10 unit Insulin Human Lispro (Insulin Lispro 100 Unit/Ml 3 Ml Vial) 0 unit SUBCUT QIDACHS [facility]; Protocol Last Admin: 02/26/24 07:13 Dose: Not Given Levothyroxine Sodium (Levothyroxine Sodium 150 Mcg Tablet) 150 mcg PO DAILY@0600 [facility] Last Admin: 02/26/24 05:32 Dose: 150 mcg [place] Carbonate ([place] Carbonate Er 450 Mg Tablet.Er) 450 mg PO BID [facility] Last Admin: 02/26/24 07:24 Dose: 450 mg Loratadine (Loratadine 10 Mg Tablet) 10 mg PO DAILY [facility] Last Admin: 02/26/24 07:24 Dose: 10 mg Melatonin (Melatonin 3 Mg Tablet) 6 mg PO BEDTIME PRN PRN Reason: Insomnia Last Admin: 02/26/24 01:51 Dose: 6 mg Morphine Sulfate (Morphine Sulfate 4 Mg/Ml Cartridge) 4 mg IVPUSH Q4H PRN; Protocol PRN Reason: Pain, Severe (Pain Scale 7-10) Last Admin: 02/23/24 13:54 Dose: 4 mg Ondansetron HCl (Ondansetron Hcl 4 Mg/2 Ml Vial) 4 mg IVPUSH Q8H PRN PRN Reason: Nausea and Vomiting Last Admin: 02/16/24 09:36 Dose: 4 mg Oxycodone HCl (Oxycodone Hcl Immed Release 5 Mg Tablet) 5 mg PO Q4H PRN PRN Reason: Pain, Moderate(Pain Scale 4-6) Last Admin: 02/26/24 07:24 Dose: 5 mg Pharmacy Consult (Consult Rx Parenteral Nutrition Ordering) 1 each MISCELLANE DAILY PRN PRN Reason: Consult order Sodium Chloride (0.9 % Sodium Chloride Flush 3 Ml Syringe) 3 ml IVFLUSH QSHIFT [facility] Last Admin: 02/26/24 07:24 Dose: Not Given Tamsulosin HCl (Tamsulosin Hcl 0.4 Mg Capsule) 0.4 mg PO BEDTIME [facility] Last Admin: 02/25/24 21:43 Dose: 0.4 mg Allergies Allergies Allergy/AdvReac Type Severity Reaction Status Date / Time amoxicillin [AMOXICILLIN] Allergy Intermediate SKIN RASH Verified 02/15/24 12:34 egg [EGGS] Allergy Intermediate HIVES, Verified 02/15/24 12:34 VOMITING Penicillins [PENICILLINS] Allergy Intermediate SKIN RASH Verified 02/15/24 12:34 Sulfa (Sulfonamide Allergy Intermediate SKIN RASH Verified 02/15/24 12:34 Antibiotics) [SULFA (SULFONAMIDE ANTIBIOTICS)] trimethoprim [TRIMETHOPRIM] Allergy Intermediate SKIN RASH Verified 02/15/24 12:34 penicillin V Allergy Unknown Unknown Verified 02/15/24 12:34 haloperidol [From Haldol] Allergy Unknown Verified 02/15/24 12:34 Latex, Natural Rubber Allergy Unknown Verified 02/15/24 12:34 methylprednisolone Allergy Unknown Verified 02/15/24 12:34 [From Solu-Medrol] penicillin Allergy Unknown Unknown Uncoded 10/10/20 14:35 sultamicillin Allergy Unknown Unknown Uncoded 10/10/20 14:35 trimethoprim Allergy Unknown Unknown Uncoded 10/10/20 14:35 Assessment & Plan Assessment & Plan (1) Schizophrenia: Status: Acute Code(s): F20.9 - Schizophrenia, unspecified Assessment and Plan: Mr. Lantigua is a 58 year-old male admitted for resection of small bowel due to obstruction. clozaril stopped. discussed with surgeon Dr. Thomas restarting clozaril. Also obtain collateral information from his OP psychiatrist, Dr. Simmons. clozaril has been only antipsychotic that has stabilize him psychiatrically. Will restart clozaril 25mg po qhs. may need to monitor and maintain bowel regimen to prevent constipation. We discussed reintroducing clozaril 25mg po qhs. For now will increase prolixin to 2.5mg po BID, until dose of clozaril at more therapeutic dose. He does have some delusional thinking which at this point, Dr. Simmons reports is baseline. Plan 1. restart clozaril 25mg po qhs. 2. may increase prolixin for now while clozaril is titrated to 2.5mg po BID. 3. No need for inpatient psych level of care at this point. Total time managing care of this patient today ____ minutes.
[2024-02-26] MEDS: Fluticasone/Umeclidinium/Vilanterol 100/62.5/25 BLST.W.DEV 1 PUFF INHALE (08:33)
--- NOTE | 2024-02-26 09:45 | PM.PNGS ---
Subjective Subjective Date of Service: 02/26/24 <Hailey Roman PA-C - Last Filed: 02/26/24 09:50> 02/26/24 <Paul Thomas MD - Last Filed: 02/26/24 13:38> Interval history: Discharge was held yesterday because he reported dizziness upon ambulating with borderline BP. Therefore restarted on IVF with improvement. He denies dizziness this morning but is having paranoia and hallucinations talking about hells angels threatening him in the hospital. <Hailey Roman PA-C - Last Filed: 02/26/24 09:50> Physical Exam Vital Signs: Vital Signs: Last Vital Signs Temp 98.6 F 02/26/24 07:06 Pulse 62 02/26/24 08:34 Resp 18 02/26/24 08:34 BP 102/55 L 02/26/24 07:06 Pulse Ox 96 02/26/24 07:06 O2 Del Method Room Air 02/26/24 07:06 O2 Flow Rate 2 02/17/24 07:47 BMI result Body Mass Index 27.1 <Hailey Roman PA-C - Last Filed: 02/26/24 09:50> Const: General: comfortable and alert <MORAIMA Bright Last Filed: 02/26/24 09:50> Resp: Effort & Inspection: normal respiratory effort <Hailey Roman PA-C - Last Filed: 02/26/24 09:50> GI: Other: incision with persistent erythema at umbilicus, no purulence noted <Hailey Roman PA-C - Last Filed: 02/26/24 09:50> Palpation (GI): Soft to palpation, nontender and no guarding <Hailey Roman PA-C - Last Filed: 02/26/24 09:50> Neuro: General: moves all extremities <MORAIMA Bright Last Filed: 02/26/24 09:50> Psych: Thought content: Paranoid delusions present <MORAIMA Bright Last Filed: 02/26/24 09:50> Objective Data Active Medications Albuterol Sulfate (Albuterol Sulfate 90 Mcg 8 Gm Inhaler) 1 puff INHALE RQ6H PRN PRN Reason: Shortness Of Breath Last Admin: 02/24/24 16:09 Dose: 1 puff Documented By: MISSAEL Artificial Tears (Artificial Tears 15 Ml Drops) 1 drop EYE-BOTH DAILY [facility] Last Admin: 02/26/24 07:24 Dose: 1 drop Documented By: DOE Atenolol (Atenolol 25 Mg Tablet) 25 mg PO DAILY [facility]; Protocol Last Admin: 02/25/24 07:46 Dose: Not Given Documented By: LINDA Non-Admin Reason: Decreased Blood Pressure Atorvastatin Calcium (Atorvastatin Calcium 40 Mg Tablet) 40 mg PO BEDTIME [facility] Last Admin: 02/25/24 21:43 Dose: 40 mg Documented By: WENDY Benzonatate (Benzonatate 100 Mg Capsule) 200 mg PO TID PRN PRN Reason: Cough Last Admin: 02/24/24 04:01 Dose: 200 mg Documented By: CARLOS ENRIQUE Fluphenazine HCl (Fluphenazine Hcl 1 Mg Tablet) 1 mg PO BEDTIME [facility] Last Admin: 02/25/24 21:43 Dose: 1 mg Documented By: WENDY Fluticasone Propionate (Fluticasone Propionate Nasal 16 Gm [place]) 1 spray NOSTRIL-B DAILY [facility] Last Admin: 02/26/24 07:23 Dose: 1 spray Documented By: DOE Fluticasone/Umeclidinium/Vilanterol (Fluticasone/Umeclidinium/Vilanterol 100/62.5/25 Blst.W.Dev) 1 puff INHALE RDAILY [facility] Last Admin: 02/26/24 08:33 Dose: 1 puff Documented By: MISSAEL Gabapentin (Gabapentin 600 Mg Tablet) 600 mg PO TID [facility] Last Admin: 02/26/24 07:24 Dose: 600 mg Documented By: DOE Guaifenesin (Guaifenesin La 600 Mg Tab.Er.12h) 600 mg PO BID [facility] Last Admin: 02/26/24 07:24 Dose: 600 mg Documented By: DOE Heparin Sodium (Porcine) (Heparin Sodium,Porcine 5,000 Unit/Ml Vial) 5,000 unit SUBCUT Q12H [facility] Last Admin: 02/25/24 21:44 Dose: 5,000 unit Documented By: WENDY Dextrose (D10) 250 mls @ 750 mls/hr IV Q15M PRN PRN Reason: per Hypoglycemia Standing Ord. Last Infusion: 02/19/24 02:40 Dose: Infused Documented By: ANGELA Sodium Chloride (Ns) 1,000 mls @ 100 mls/hr IVCONT .Q10H [facility] Last Admin: 02/26/24 07:23 Dose: 100 mls/hr Documented By: DOE Insulin Glargine (Insulin Glargine,Hum.Rec.Anlog 100 Unit/Ml 10 Ml Vial) 10 unit SUBCUT BEDTIME [facility] Last Admin: 02/25/24 21:44 Dose: 10 unit Documented By: WENDY Insulin Human Lispro (Insulin Lispro 100 Unit/Ml 3 Ml Vial) 0 unit SUBCUT QIDACHS [facility]; Protocol Last Admin: 02/26/24 07:13 Dose: Not Given Documented By: LINDA Non-Admin Reason: No Insulin Coverage Levothyroxine Sodium (Levothyroxine Sodium 150 Mcg Tablet) 150 mcg PO DAILY@0600 [facility] Last Admin: 02/26/24 05:32 Dose: 150 mcg Documented By: WENDY [place] Carbonate ([place] Carbonate Er 450 Mg Tablet.Er) 450 mg PO BID [facility] Last Admin: 02/26/24 07:24 Dose: 450 mg Documented By: DOE Loratadine (Loratadine 10 Mg Tablet) 10 mg PO DAILY [facility] Last Admin: 02/26/24 07:24 Dose: 10 mg Documented By: DOE Melatonin (Melatonin 3 Mg Tablet) 6 mg PO BEDTIME PRN PRN Reason: Insomnia Last Admin: 02/26/24 01:51 Dose: 6 mg Documented By: WENDY Morphine Sulfate (Morphine Sulfate 4 Mg/Ml Cartridge) 4 mg IVPUSH Q4H PRN; Protocol PRN Reason: Pain, Severe (Pain Scale 7-10) Last Admin: 02/23/24 13:54 Dose: 4 mg Documented By: GALE Ondansetron HCl (Ondansetron Hcl 4 Mg/2 Ml Vial) 4 mg IVPUSH Q8H PRN PRN Reason: Nausea and Vomiting Last Admin: 02/16/24 09:36 Dose: 4 mg Documented By: NEO Oxycodone HCl (Oxycodone Hcl Immed Release 5 Mg Tablet) 5 mg PO Q4H PRN PRN Reason: Pain, Moderate(Pain Scale 4-6) Last Admin: 02/26/24 07:24 Dose: 5 mg Documented By: DOE Pharmacy Consult (Consult Rx Parenteral Nutrition Ordering) 1 each MISCELLANE DAILY PRN PRN Reason: Consult order Sodium Chloride (0.9 % Sodium Chloride Flush 3 Ml Syringe) 3 ml IVFLUSH QSHIFT [facility] Last Admin: 02/26/24 07:24 Dose: Not Given Documented By: DOE Non-Admin Reason: IV Running Tamsulosin HCl (Tamsulosin Hcl 0.4 Mg Capsule) 0.4 mg PO BEDTIME [facility] Last Admin: 02/25/24 21:43 Dose: 0.4 mg Documented By: WENDY <aHiley Roman PA-C - Last Filed: 02/26/24 09:50> Labs CBC & Chem 7: 02/22/24 06:18 02/26/24 05:23 <Hailey Roman PA-C - Last Filed: 02/26/24 09:50> Labs: Laboratory Results - last 24 hr 02/25/24 02/25/24 02/25/24 11:12 16:17 20:26 Hold Purple Top Anion Gap Estim Creat Clear Calc Estimated GFR POC Glucose 226 H 122 H 174 H Random Glucose Calcium Phosphorus Magnesium Albumin [place] 02/26/24 02/26/24 05:23 07:09 Hold Purple Top SEE NOTE Anion Gap 8 L Estim Creat Clear Calc 126.2 Estimated GFR > 60 POC Glucose 143 H Random Glucose 144 H Calcium 8.4 Phosphorus 3.4 Magnesium 1.9 Albumin 3.0 L [place] 0.61 <Hailey Roman PA-C - Last Filed: 02/26/24 09:50> Procedures Date of Service Date of Service: 02/26/24 <Hailey Roman PA-C - Last Filed: 02/26/24 09:50> 02/26/24 <Paul Thomas MD - Last Filed: 02/26/24 13:38> Progress Note: A&P Assessment and plan (1) Status post small bowel resection: Status: Acute <Hailey Roman PA-C - Last Filed: 02/26/24 09:50> Assessment and Plan: Tolerating regular diet Denies abdominal pain Looks well Abdomen soft and benign Has paranoid delusions Follow-up with Psychiatry for now for discharge planning Doing well from surgical standpoint otherwise Seen and examined independently <Paul Thomas MD - Last Filed: 02/26/24 13:38> (2) SBO (small bowel obstruction): Status: Acute <Hailey oRman PA-C - Last Filed: 02/26/24 09:50> Assessment and Plan: Psych consult to review meds, plan for discharge given current paranoia. Dizziness resolved, BP improved. Tolerating diet. dc IVF. Will begin PO abx for incisional erythema. <Hailey Roman PA-C - Last Filed: 02/26/24 09:50> Time Spent With Patient Time: Total time managing care of this patient today ____ minutes. <Hailey Roman PA-C - Last Filed: 02/26/24 09:50> Quality Stroke Does the patient have a stroke diagnosis?: No <Hailey Roman PA-C - Last Filed: 02/26/24 09:50> VTE Prior VTE?: No <Hailey Roman PA-C - Last Filed: 02/26/24 09:50> VTE Risk Level:: Medical - moderate - high <Hailey Roman PA-C - Last Filed: 02/26/24 09:50> VTE Device Contraindication: N/A - Device Ordered <Hailey Roman PA-C - Last Filed: 02/26/24 09:50> VTE Drug Contraindication: N/A - Med Ordered <Hailey Roman PA-C - Last Filed: 02/26/24 09:50>
--- NOTE | 2024-02-26 09:50 | MHC.CLN ---
F/U DIET ADVANCED TO DIABETIC 1800 KCALS ON 02/22. PO APPEARS TO BE IMPROVING WITH INTAKE X 2 DAYS 25-100%. SKIN WITH DM ULCER TO RIGHT GREAT TOE. FOLLOW FOR INTAKE AND DIET TOLERANCE.
[2024-02-26] MEDS: Doxycycline Monohydrate 100 MG CAPSULE PO (10:36)
[2024-02-26] MEDS: Heparin Sodium,Porcine 5,000 UNIT/ML VIAL 5000 UNIT SUBCUT (10:36)
[2024-02-26 11:09] LABS: Glucose, Whole Blood 164 mg/dL (60-115)
--- NOTE | 2024-02-26 11:59 | HO.WOUND ---
Wound Consult: Follow up 58yr old? Male admitted to [facility] on 02/14/24 - See progress notes and H&P for detailed history.? Wound consult follow up for Right Great Toe wound s/p debridement by Dr. Thomas.? Patient agreeable to assessment and photo documentation.? Patient reports neuropathy and reports mild tenderness today. Sock removed dressing in place foul odor noted. Right Great Toe Initial Assessment 02/25/24 Todays assessment 02/26/24 Todays assessment 02/26/24 Todays assessment 02/26/24 Right Great Toe Etiology: Diabetic Foot Wound??Present on Admission Measurements: see charting for detailed measurement Wound Bed: Thick callused tissue trapping drainage macerated edges and purple edges noted Drainage / Odor: Foul smelling drainage Edges: ? irregular and nonadherent [place] wound: Macerated Pain: mild pain tenderness reported Goals of Treatment: ? Durafiber AG packing will continue to follow - if odor not improved at tomorrows assessment will consider Dakins Packing. Recommendations: 1. Turn and Reposition every 2 hours and as needed for patient comfort.? Use pillows or wedges to support off loading positions. 2. Off Load all bony prominences with use of pillows and heel boots if needed.? Apply Preventative foams where needed. ? 3. Monitor for incontinence and moisture control, use barrier creams when needed for prevention and treatment. 4. Provide adequate and supplemental nutrition.? 5. Continue low air loss mattress. 6. When applicable maintain blood glucose levels per Providers order. 7. Right Great Toe - Cleanse and irrigate with NS pat dry. Lightly pack with Durafiber AG be sure to leave wick for easy removal. Cover with dry gauze ABD pad and gauze wrap. Change daily. Re-consult wound care Nurse for wound deterioration or wound changes.
[2024-02-26] MEDS: Insulin Lispro 100 UNIT/ML 3 ML VIAL SUBCUT ×2 (12:05→17:09)
--- NOTE | 2024-02-26 12:12 | P.PNIM_ITS ---
Subjective Subjective Date of Service: 02/26/24 Interval History: No acute issues overnight. Tolerating Review of Systems no new symptoms seems somewhat upset/agitated Physical Exam 2 Vital Signs: Vital Signs: Last Vital Signs Temp 97.7 F 02/26/24 11:24 Pulse 62 02/26/24 11:24 Resp 18 02/26/24 11:24 BP 98/51 L 02/26/24 11:24 Pulse Ox 100 02/26/24 11:24 O2 Del Method Room Air 02/26/24 11:24 O2 Flow Rate 2 02/17/24 07:47 BMI result Body Mass Index 27.1 Appearance: Alert.? Oriented ,comfortable. cvs: rrr, [id number]. res: clear to auscultation ,no rhonchii or wheezing abd: no rebound or guarding ,soft,nd , bs present. ext pulses present , no cyanosis . neuro: axo3 , nonfocal. Objective Data Active Medications Albuterol Sulfate (Albuterol Sulfate 90 Mcg 8 Gm Inhaler) 1 puff INHALE RQ6H PRN PRN Reason: Shortness Of Breath Last Admin: 02/24/24 16:09 Dose: 1 puff Documented By: MISSAEL Artificial Tears (Artificial Tears 15 Ml Drops) 1 drop EYE-BOTH DAILY [facility] Last Admin: 02/26/24 07:24 Dose: 1 drop Documented By: DOE Atenolol (Atenolol 25 Mg Tablet) 25 mg PO DAILY [facility]; Protocol Last Admin: 02/25/24 07:46 Dose: Not Given Documented By: LINDA Non-Admin Reason: Decreased Blood Pressure Atorvastatin Calcium (Atorvastatin Calcium 40 Mg Tablet) 40 mg PO BEDTIME [facility] Last Admin: 02/25/24 21:43 Dose: 40 mg Documented By: LYSZ Benzonatate (Benzonatate 100 Mg Capsule) 200 mg PO TID PRN PRN Reason: Cough Last Admin: 02/24/24 04:01 Dose: 200 mg Documented By: CARLOS ENRIQUE Doxycycline Monohydrate (Doxycycline Monohydrate 100 Mg Capsule) 100 mg PO Q12H [facility] Stop: 03/01/24 23:59 Last Admin: 02/26/24 10:36 Dose: 100 mg Documented By: LINDA Fluphenazine HCl (Fluphenazine Hcl 1 Mg Tablet) 1 mg PO BEDTIME [facility] Last Admin: 02/25/24 21:43 Dose: 1 mg Documented By: WENDY Fluticasone Propionate (Fluticasone Propionate Nasal 16 Gm [place]) 1 spray NOSTRIL-B DAILY [facility] Last Admin: 02/26/24 07:23 Dose: 1 spray Documented By: DOE Fluticasone/Umeclidinium/Vilanterol (Fluticasone/Umeclidinium/Vilanterol 100/62.5/25 Blst.W.Dev) 1 puff INHALE RDAILY [facility] Last Admin: 02/26/24 08:33 Dose: 1 puff Documented By: MISSAEL Gabapentin (Gabapentin 600 Mg Tablet) 600 mg PO TID [facility] Last Admin: 02/26/24 07:24 Dose: 600 mg Documented By: DOE Guaifenesin (Guaifenesin La 600 Mg Tab.Er.12h) 600 mg PO BID [facility] Last Admin: 02/26/24 07:24 Dose: 600 mg Documented By: DOE Heparin Sodium (Porcine) (Heparin Sodium,Porcine 5,000 Unit/Ml Vial) 5,000 unit SUBCUT Q12H [facility] Last Admin: 02/26/24 10:36 Dose: 5,000 unit Documented By: LINDA Dextrose (D10) 250 mls @ 750 mls/hr IV Q15M PRN PRN Reason: per Hypoglycemia Standing Ord. Last Infusion: 02/19/24 02:40 Dose: Infused Documented By: ANGELA Insulin Glargine (Insulin Glargine,Hum.Rec.Anlog 100 Unit/Ml 10 Ml Vial) 10 unit SUBCUT BEDTIME [facility] Last Admin: 02/25/24 21:44 Dose: 10 unit Documented By: WENDY Insulin Human Lispro (Insulin Lispro 100 Unit/Ml 3 Ml Vial) 0 unit SUBCUT QIDACHS [facility]; Protocol Last Admin: 02/26/24 12:05 Dose: 2 unit Documented By: LINDA Levothyroxine Sodium (Levothyroxine Sodium 150 Mcg Tablet) 150 mcg PO DAILY@0600 [facility] Last Admin: 02/26/24 05:32 Dose: 150 mcg Documented By: WENDY Jovista Carbonate (Jovista Carbonate Er 450 Mg Tablet.Er) 450 mg PO BID [facility] Last Admin: 02/26/24 07:24 Dose: 450 mg Documented By: DOE Loratadine (Loratadine 10 Mg Tablet) 10 mg PO DAILY [facility] Last Admin: 02/26/24 07:24 Dose: 10 mg Documented By: DOE Magnesium Oxide (Magnesium Oxide 400 Mg Tablet) 400 mg PO BIDPC [facility] Melatonin (Melatonin 3 Mg Tablet) 6 mg PO BEDTIME PRN PRN Reason: Insomnia Last Admin: 02/26/24 01:51 Dose: 6 mg Documented By: WENDY Morphine Sulfate (Morphine Sulfate 4 Mg/Ml Cartridge) 4 mg IVPUSH Q4H PRN; Protocol PRN Reason: Pain, Severe (Pain Scale 7-10) Last Admin: 02/23/24 13:54 Dose: 4 mg Documented By: GALE Ondansetron HCl (Ondansetron Hcl 4 Mg/2 Ml Vial) 4 mg IVPUSH Q8H PRN PRN Reason: Nausea and Vomiting Last Admin: 02/16/24 09:36 Dose: 4 mg Documented By: NEO Oxycodone HCl (Oxycodone Hcl Immed Release 5 Mg Tablet) 5 mg PO Q4H PRN PRN Reason: Pain, Moderate(Pain Scale 4-6) Last Admin: 02/26/24 07:24 Dose: 5 mg Documented By: DOE Pharmacy Consult (Consult Rx Parenteral Nutrition Ordering) 1 each MISCELLANE DAILY PRN PRN Reason: Consult order Sodium Chloride (0.9 % Sodium Chloride Flush 3 Ml Syringe) 3 ml IVFLUSH QSHIFT [facility] Last Admin: 02/26/24 07:24 Dose: Not Given Documented By: DOE Non-Admin Reason: IV Running Tamsulosin HCl (Tamsulosin Hcl 0.4 Mg Capsule) 0.4 mg PO BEDTIME [facility] Last Admin: 02/25/24 21:43 Dose: 0.4 mg Documented By: WENDY Labs 02/22/24 06:18 02/26/24 05:23 Labs: Laboratory Results - last 24 hr 02/25/24 02/25/24 02/26/24 16:17 20:26 05:23 Hold Purple Top SEE NOTE Anion Gap 8 L Estim Creat Clear Calc 126.2 Estimated GFR > 60 POC Glucose 122 H 174 H Random Glucose 144 H Calcium 8.4 Phosphorus 3.4 Magnesium 1.9 Albumin 3.0 L [place] 0.61 02/26/24 02/26/24 07:09 11:05 Hold Purple Top Anion Gap Estim Creat Clear Calc Estimated GFR POC Glucose 143 H 164 H Random Glucose Calcium Phosphorus Magnesium Albumin [place] Assessment and Plan (1) Status post small bowel resection: Status: Acute (2) Diabetes mellitus type 2 in nonobese: Status: Acute Plan 58yo M with COPD, HTN, HLD, DM2, hypothyroidism, cognitive impairment presenting with abdominal pain and admitted to surgical service for SBO; found to have ischemic small bowel, underwent laparotomy with resection of 2.2m small bowel + reanastomosis 02/16/24; medicine consult for management of comorbid conditions. Boderline bp: boderline orthostasis -possible sec to dec po intake /dehydration seem improved, no new symptoms PHILIP w/hyperkalemia -responded to volume -follow renals/divalents HyperNa - free water deficit repleted with D5W -follow clinically SBO - POD(7), NGT out 02/20/24. Advance to full liquid diet .... Tolerating well -further advancements as per surgery.-possible trial regular diet today acute hypoxic respiratory failure likely due to COPD but treated for possible PNA - ceftriaxone 02/15-02/18; PCT low and BCx negative so ABX stopped - continue nebulizer treatments + Trelegy inhaler - weaned off O2 DM2 -acceptable control on current therapies -lispro correctional scale -adjust as indicated Mood disorder: somewhat agitated - fluphenazine + gabapentin + lithium added lithium levels for morning psych follow up for plan dispo. d/w primary team,We will continue to follow the patient while they are admitted to your service. Quality Stroke Does the patient have a stroke diagnosis?: No VTE Prior VTE?: No VTE Risk Level:: Medical - moderate - high VTE Device Contraindication: N/A - Device Ordered VTE Drug Contraindication: N/A - Med Ordered
--- NOTE | 2024-02-26 13:32 | MHC.CM.PN ---
Addendum entered by Isis Donohue RN 02/26/24 15:48: Patient medically cleared for dc to STR at [facility]. BLS transportation scheduled for 1800. RNMD and patient aware. IMM delivered. [facility] and [facility] also updated on dc to [facility]. Original Note: EMR reviewed. Per MD rounds patient awaiting psych consult. PT now recommending STR. CM met with patient who is agreeable to plan. No facility preference. Referrals sent in [facility]. CM will continue to follow.
[2024-02-26] MEDS: 0.9 % Sodium Chloride Flush 3 ML SYRINGE IVFLUSH (15:14)
--- NOTE | 2024-02-26 15:18 | PM.DS ---
DS: Providers Provider Date of Service: 02/26/24 Date of admission: 02/15/24 16:28 Date of discharge: 02/26/24 Primary care physician: Ginger Valero MD Attending physician on admission: Paul Thomas Consults: 02/15/24 16:35 Consult to Hospitalist Routine Comment: Consulting Provider: Hospitalist Reason For Exam: depression, thyroid disease 02/20/24 16:30 Consult to Psychiatry Routine Consulting Provider: Psych Covering Reason for consultation: clozaril resumption; has been on IM Zyprexa while NPO since 02/1402/25/24 01:11 Consult to Wound Care Routine Reason for consultation: callus/ diabetic ulcer to right great toe Attending physician on discharge: Paul Thomas DS: Diagnosis Discharge Diagnosis (1) Schizophrenia: Status: Acute DS: Summary Hospital Course Hospital Course: HPI AT ADMISSION: David Lantigua is a 58 year old male who was sent to the ED from a long-term because of abdominal pain. This apparently started 1 hour after eating. There was no vomitting documented. He was reported to complain of a lot of pain when he got in the ED so a CT scan was done. Currently, he says he does not have any abdominal pain anymore. He denies any nausea or vomitting. He was also hypoxic when he came earlier. He does not have any shortness of breath at this time. He is answering questions well and says he now ants to go home . He says he had BMs and flatus today. He has a hx of traumatic brain injury and schizophrenia and therefore has cognitive deficiencies. He is a little uncooperative at this time as well. HOSPITAL COURSE: He had a CT scan done when he was in pain which suggested high grade small bowel obstruction, partial twisting of the mesentery, with moderate free fluid. Currently, he is much more comfortable, and has a benign exam. He may have had twisting fofthe mesentery that probably untwisted. He is not acidotic and his lactate is normal. His symptoms resolved. He was admitted for close observation and NGT placed for decompression. He was kept NPO and hydrated with IVF. I have requested the Hospitalist to follow him as well. We will monitor him closely in view of his CT scan finding. If there is clinically worsening, we will plan on laparotomy for possible internal hernia/small bowel volvulus. He did have an PHILIP with hyperkalemia, likely due to dehydration that improved with IV hydration. He refused the NGT. During the stay, he appeared to be more distended with significant pain overnight. It was recommended to proceed with laparotomy. Given his cognitive deficiencies from his traumatic brain injury and schizophrenia it was unlikely that he fully understood the plan however his healthcare proxy as well as the long-term could not be reached and therefore emergent need any medical assistance density for the procedure was augmented by 2 physicians. On 02/16/24, Laparotomy, resection of about 220 cm small-bowel, with reanastomosis was perfomed by Dr. Thomas without complication. He was found to have a long, volvulized small bowel, grossly ischemic, with a band at the proximal segment, well demarcated ischemia; about 220 cm resected. He had a slow recovery course with expected delayed return of GI function. He had PPN for nutrition during this time. His NGT output gradually decreased and his abdomen remained softly distended during this time. He developed hypernatremia from a free water deficit and was repleted with D5W. He began to pass flatus. His NGT output was scant and removed on 02/20/24. His diet was slowly advanced following. He overall did well from a surgical standpoint. He did have some incisional erythema at the umbilicus and two kelli were removed without improvement and he was therefore started on PO doxycycline for 5 days. He was seen by PT who did recommend transfer to [facility] for further convalescence. Acute hypoxic respiratory failure likely due to COPD but treated for possible PNA He was treated with ceftriaxone 02/15-02/18; PCT low and BCx negative so ABX stopped. His home nebulizer treatments + Trelegy inhaler were continued and he was weaned off supplemental oxygen. Mood disorder His clozapine was held at somepoint due to the SBO. He was continued on fluphenazine + gabapentin + lithium. As his mentation improved he became increasingly agitated and delusion. Psych was consulted to recommended to gradually restart clozapine 25mg PO at bedtime and follow up with his outpatient psych for further management. On the day of discharge, he was tolerating a solid diet with good pain control. He had good GI function. His abd was benign with clean incision with mild incisional erythema at umbilicus. He was ambulating. He was stable for dc and transferred to [facility] on 02/26/24. Anticipate <30d stay. Status at Discharge Overall status at discharge: patient is progressing back to baseline Time Attestation Discharge Coordination Time (in mins): 50 Quality: Safe Use of Opioids Does Pt have an Active Cancer Diagnosis on the Problem List?: No Quality: Stroke Does the patient have a stroke diagnosis?: No Physical Exam Vital Signs: Vital Signs: Last Vital Signs Temp 99.0 F 02/26/24 15:12 Pulse 66 02/26/24 15:12 Resp 16 02/26/24 15:12 BP 108/51 L 02/26/24 15:12 Pulse Ox 96 02/26/24 15:12 O2 Del Method Room Air 02/26/24 15:12 O2 Flow Rate 2 02/17/24 07:47 BMI result Body Mass Index 27.1 Const: General: comfortable, no acute distress and alert Orientation/consciousness: patient oriented x3 Resp: Effort & Inspection: normal respiratory effort GI: Inspection: Yes incision (erythema at umbilicus, small opening where kelli removed ) Palpation (GI): Soft to palpation Skin: General skin exam: no rashes or lesions noted Neuro: General: patient oriented x3 and moves all extremities DS: Data Data Completed and Pending Completed studies during hospitalization [Text1]: Pending at discharge 02/16/24 12:41 Surgical [PTH] Routine Labs on day of discharge: Laboratory Results - last 24 hr 02/25/24 02/25/24 02/26/24 16:17 20:26 05:23 Hold Purple Top SEE NOTE Sodium 135 Potassium 4.2 Chloride 103 Carbon Dioxide 28 Anion Gap 8 L BUN 13 Creatinine 0.70 Estim Creat Clear Calc 126.2 Estimated GFR > 60 POC Glucose 122 H 174 H Random Glucose 144 H Calcium 8.4 Phosphorus 3.4 Magnesium 1.9 Albumin 3.0 L [place] 0.61 02/26/24 02/26/24 07:09 11:05 Hold Purple Top Sodium Potassium Chloride Carbon Dioxide Anion Gap BUN Creatinine Estim Creat Clear Calc Estimated GFR POC Glucose 143 H 164 H Random Glucose Calcium Phosphorus Magnesium Albumin [place] Discharge Plan Discharge Anticipated Discharge Date/Time: 02/26/24 15:13 Patient Disposition: Xfer SNF Discharge Diagnosis: SBO, s/p ex lap, small bowel resection Referrals: [facility] [Outside] - 1 Day (short term rehab Resume VNA services with Ellie when you return home.) Paul Thomas MD [Physician] - 2 Weeks Physician,Domenic J [Physician] - 1 Week Discharge Medications: New clozapine 25 mg Tablet 25 mg PO BEDTIME Qty: 30 0RF doxycycline hyclate 100 mg capsule 100 mg PO BID Qty: 8 0RF Continued atorvastatin 40 mg tablet 40 mg PO BEDTIME gabapentin 600 mg tablet 1 tab PO TID lithium carbonate 450 mg tablet extended release 450 mg PO BID tamsulosin 0.4 mg capsule 1 cap PO BEDTIME metformin 1,000 mg tablet 1 tab PO BIDWM levothyroxine 150 mcg tablet 1 tab PO DAILY@0600 albuterol sulfate [Ventolin HFA] 90 mcg/actuation HFA aerosol inhaler 1 puff inhalation Q6H PRN (Reason: Shortness Of Breath) insulin lispro [Humalog U-100 Insulin] 100 unit/mL Solution See Rx Instructions .ROUTE .COMPLEX Qty: 10 0RF Protocol: Insulin Correction Scale Less than or equal to 110 ---- Give (units): 0 111 to 150 Give (units): 0 151 to 200 Give (units): 2 201 to 250 Give (units): 6 251 to 300 Give (units): 8 301 to 350 Give (units): 10 Greater than 350 Give (units): 12 Call MD if Blood Glucose > : 350 Rx Instructions: Less than or equal to 110 ---- Give (units): 0 111 to 150 Give (units): 0 151 to 200 Give (units): 2 201 to 250 Give (units): 4 251 to 300 Give (units): 6 301 to 350 Give (units): 8 Greater than 350 Give (units): 10 Call MD if Blood Glucose > : 350 atenolol 50 mg tablet 25 mg PO DAILY Qty: 0 0RF loratadine 10 mg Tablet 10 mg PO DAILY ibuprofen 600 mg Tablet 600 mg PO Q6H PRN (Reason: Pain) fluphenazine HCl 1 mg tablet 1 mg PO BEDTIME insulin glargine [Basaglar KwikPen U-100 Insulin] 100 unit/mL (3 mL) insulin pen 30 unit subcut BEDTIME Trelegy Ellipta 100-62.5-25 mcg blister with device 1 ea inhalation DAILY fluticasone propionate [Flonase Allergy Relief] 50 mcg/actuation [place],Suspension 1 spray INTRANASAL DAILY Rx Instructions: administer into each nostril Artificial Tears (PF) 0.1-0.3 % Dropperette 1 drp OPHTHALMIC (EYE) DAILY PRN (Reason: Dry Eyes) Artificial Tears (PF) 0.1-0.3 % Dropperette 1 drp OPHTHALMIC (EYE) DAILY Held clozapine 100 mg Tablet 200 mg PO BEDTIME Hold Instructions: Resume on 03/18/24. clozapine 25 mg Tablet 75 mg PO DAILY Hold Instructions: Resume on 03/18/24. Discharge Orders: Discharge Order (Routine); Ordered 02/26/24 Ordered By: Hailey Roman Diet: Diabetic diet Activity on Discharge: No heavy lifting Stand Alone Forms: Patient Portal Discharge page Print Language: Armenian Activity Restrictions/Additional Instructions: If the incision area is tender, you may apply an ice pack for short intervals (No more than 20 minutes on, followed by at least 20 minutes off). Ok to shower. You have kelli closing your incision and these will be removed approximately 10-14 days after surgery. NO HEAVY LIFTING (>10lbs) or strenuous activity. Follow up in office in [address] Thomas. ([phone]) Call Your Doctor If: -Your temperature exceeds 101.5? F -You experience excessive pain or swelling -You have an unexpected reaction to medication -You have excessive bleeding -You experience continued vomiting/nausea -Your incision begins to separate -Your incision shows signs of infection such as increased redness, swelling, excessive pain, drainage (light blood or clear fluid is normal) or heat Care Plan Goals: Return to baseline health and resume normal activities following recovery period. Health Concerns: SBO PNA DM hx of TBI, schizophrenia Plan of Treatment: s/p ex lap, small bowel resection f/u in office with Dr. Thomas in 2 weeks. F/u with outpatient psych to resume clozaril. Assessment: Improved
[2024-02-26 15:41] LABS: Neut%MD 68.6 %; Neutrophils Absolute Auto 6.9 x10*3/uL (2.0-8.3); WBCANC 10.1 X10*3/uL
[2024-02-26 16:12] LABS: Glucose, Whole Blood 188 mg/dL (60-115)
[2024-02-26] MEDS: Magnesium Oxide 400 MG TABLET PO (17:09)
== END 2024-02-26 18:03 | disposition skilled nursing facility (03) | DRG 329 ==
LOC: HO.ED 15:32 → HO.EDOVER 16:36 → HO.S3 19:13
PROVIDERS: Family Medicine; Internal Medicine; Physician Assistant; Social Worker; Student in an Organized Health Care Education/Training Program; Admitting Provider Surgery; Emergency Provider Student in an Organized Health Care Education/Training Program; PCP Internal Medicine; Visit Provider Surgery
PROC: 0DB80ZZ Excision of Small Intestine, Open Approach (ICD-10-PCS; CPT 49000; principal; 2024-02-16 11:00)
DX: K56.2 Volvulus (principal); J18.9 Pneumonia, unspecified organism; J96.01 Acute respiratory failure with hypoxia; J44.0 Chronic obstructive pulmonary disease with (acute) lower respiratory infection; K55.9 Vascular disorder of intestine, unspecified; N17.9 Acute kidney failure, unspecified; D62 Acute posthemorrhagic anemia; E87.0 Hyperosmolality and hypernatremia; G89.18 Other acute postprocedural pain; E03.9 Hypothyroidism, unspecified; I10 Essential (primary) hypertension; E78.5 Hyperlipidemia, unspecified; F39 Unspecified mood [affective] disorder; E87.5 Hyperkalemia; L97.519 Non-pressure chronic ulcer of other part of right foot with unspecified severity; E11.621 Type 2 diabetes mellitus with foot ulcer; E87.6 Hypokalemia; Z78.1 Physical restraint status; F20.9 Schizophrenia, unspecified; F17.210 Nicotine dependence, cigarettes, uncomplicated; Z87.820 Personal history of traumatic brain injury; Z71.6 Tobacco abuse counseling; Z79.51 Long term (current) use of inhaled steroids; Z79.4 Long term (current) use of insulin; Z79.84 Long term (current) use of oral hypoglycemic drugs; Z79.890 Hormone replacement therapy; Z79.899 Other long term (current) drug therapy
CPT/HCPCS: 36415; 71045; 71250; 74018; 74177; 80048; 80053; 80076; 80178; 81003; 82040; 82947; 83605; 83690; 83735; 84100; 84145; 84478; 84484; 85025; 85027; 85048; 86140; 86850; 86900; 86901; 87040; 88307; 93005; 94640; 94664; 97116; 97162; 97530; 99285; C1758; C9113; J0131; J0330; J0665; J0690; J0696; J1170; J1644; J2270; J2359; J2371; J2405; J2704; J2795; J3480; J7120; P9047; Q9967

== ENCOUNTER → 2024-02-15 13:26 | Outpatient (BNV) | payer MEDICARE, MEDICAID, SELFPAY | PROVIDERS: Admitting Provider Surgery; Emergency Provider Student in an Organized Health Care Education/Training Program; Visit Provider Internal Medicine Cardiovascular Disease | DX: R10.9 Unspecified abdominal pain (principal) | CPT/HCPCS: 93010 ==

== ENCOUNTER → 2024-02-15 16:28 | Outpatient (BNV) | payer MEDICARE, MEDICAID, SELFPAY | PROVIDERS: Admitting Provider Surgery; Emergency Provider Student in an Organized Health Care Education/Training Program; PCP Internal Medicine; Visit Provider Social Worker | DX: F20.9 Schizophrenia, unspecified (principal) | CPT/HCPCS: 99232 ==

== ENCOUNTER → 2024-02-15 16:28 | Outpatient (BNV) | payer MEDICARE, MEDICAID, SELFPAY | PROVIDERS: Admitting Provider Surgery; Emergency Provider Student in an Organized Health Care Education/Training Program; Visit Provider Surgery | DX: Z90.49 Acquired absence of other specified parts of digestive tract (principal); K56.609 Unspecified intestinal obstruction, unspecified as to partial versus complete obstruction | CPT/HCPCS: 11042; 44120; 99024; 99223; 99233; 99499 ==

== ENCOUNTER → 2024-02-15 16:28 | Outpatient (BNV) | payer MEDICARE, MEDICAID, SELFPAY | PROVIDERS: Admitting Provider Surgery; Emergency Provider Student in an Organized Health Care Education/Training Program; Visit Provider Student in an Organized Health Care Education/Training Program | DX: Z90.49 Acquired absence of other specified parts of digestive tract (principal); E11.9 Type 2 diabetes mellitus without complications | CPT/HCPCS: 99222; 99231; 99232; 99233 ==

== ENCOUNTER 2024-03-02 18:36 | Inpatient (IN) | payer MEDICARE, MEDICAID, SELFPAY ==
--- OUTSIDE RECORDS SUMMARY | 2024-03-02 18:39 | XMS_ITS | Continuity of Care Document ---
Author Organization [facility] Adult Address [address] [place] [address]- Care Team Providers Care Spectacle Truer Name Role Phone Rio ROBISON, Ginger Primary Care Physician Encounter [facility] Date(s): 05/19/20 - 06/18/20 [facility] Adult [address] [place] [address]- [facility] Allergies, Adverse Reactions, Alerts Substance Reaction Severity Status amoxicillin Active sulfa drugs Active Immunizations Given and Recorded Vaccine Date Status Refusal Reason influenza virus vaccine, inactivated 1 09/24/19 Gi mitch influenza virus vaccine, inactivated 2 08/06/17 Gi mitch influenza virus vaccine, inactivated 11/02/15 Give n pneumococcal 23-valent vaccine 03/01/15 Given tetanus/diphtheria/pertussis, acel(Tdap) 03/01/15 Given 1Result Comment: [facility] [id number] 2Result Comment: [facility] [id number] Medications Advair Diskus 250 mcg-50 mcg inhalation powder 1, puffs, Inhalation, Every 12 hours, # 28 each, Refills 2, Tot. Refills 2, Maintenance, 04/10/18 16:19:35 EDT, Route to Pharmacy Electronically, [id number], [facility], please hold for when symbicort pa expires. Start Date: 04/10/18 Stop Date: 07/09/18 Status: Ordered Alcohol Pads See Instructions, # 200 each, Refills 11, Tot. Refills 11, Maintenance, use when testing glucose and injecting insulin dx e10.9, 04/15/20 11:52:00 EDT, Compound, 181, cm, 12/09/19 15:01:00 EST, Height Start Date: 04/15/20 Stop Date: 04/10/21 Status: Ordered atenolol 50 mg oral tablet 50 mg, 1, tablet, By Mouth, 3 times a day, # 270 tablet, Refills 1, Tot. Refills 1, Maintenance, 04/22/20 9:58:00 EDT, Route to Pharmacy Electronically, [facility], Rx resent from 05/11/19., 181, cm, 12/09/19 15:01:00 EST, Height, Dry Weight Start Date: 04/22/20 Status: Ordered atorvastatin 40 mg oral tablet 1 tablet = 40 mg, By Mouth, Daily, # 90 tablet, 1 Refills, Maintenance, 01/28/20 12:12:00 EDT, Tablet, [facility], 181, cm, 12/09/19 15:01:00 EST, Height, 100.6, kg, 04/07/18 20:14:00 EDT, Dry Weight Start Date: 01/28/20 Status: Ordered benztropine 1 mg oral tablet See Instructions, 2 tablet in morning and 1 tab pm, 0 Refills, Maintenance, 12/09/14 9:34:09 Start Date: 12/09/14 Status: Ordered clozapine 25 mg oral tablet 1 tablet = 25 mg, By Mouth, 2 times a day, # 42 tablet, 0 Refills, Maintenance, 06/08/19 15:54:49 EDT, Tablet Start Date: 06/08/19 Status: Ordered Clozaril 100 mg oral tablet 1 tablet = 100 mg, By Mouth, Daily at bedtime, 0 Refills, Maintenance, 12/09/14 9:33:29 EST Start Date: 12/09/14 Status: Ordered divalproex sodium 500 mg oral tablet, extended release TAKE 2 TABLETS BY MOUTH DAILY AT BEDTIME TAKEN WITH DIVALPROEX ER 250MG TABLET FOR TOTAL DAILY DOSEOF 1250MG Start Date: 12/09/19 Status: Ordered famotidine 20 mg oral tablet 20 mg, 1, tablet, By Mouth, 2 times a day, # 28 tablet, Refills 2, Tot. Refills 2, Maintenance, 10/09/18 15:47:31 EST, Route to Pharmacy Electronically, [id number], [facility] Start Date: 10/09/18 Status: Ordered Freestyle Lite Lancets See Instructions, # 100 each, Refills 11, Tot. Refills 11, Maintenance, USE TO TEST GLUCOSE TID; 8AM, 5PM, 8PM DX E10.9, 07/01/19 11:48:14 EDT, Compound Start Date: 07/01/19 Status: Ordered Freestyle Lite Monitor See Instructions, # 1 each, Maintenance, USE TO TEST GLUCOSE TID; 8AM, 5PM, 8PM DX E10.9, 07/01/19 11:48:15 EDT, Compound Start Date: 07/01/19 Status: Ordered Freestyle Lite Test Strips See Instructions, # 100 each, Refills 11, Tot. Refills 11, Maintenance, USE TO TEST GLUCOSE TID; 8AM, 5PM, 8PM DX E10.9, 07/01/19 11:48:15 EDT, Compound Start Date: 07/01/19 Status: Ordered gabapentin 600 mg oral tablet 1 tablet, By Mouth, 3 times a day, # 90 tablet, 1 Refills, Maintenance, 04/29/20 14:28:00 EDT, [facility], 181, cm, 12/09/19 15:01:00 EST, Height, Dry Weight Start Date: 04/29/20 Status: Ordered glipiZIDE 10 mg oral tablet, extended release 1 tablet = 10 mg, By Mouth, 2 times a day, # 60 tablet, 5 Refills, Soft Stop, 05/31/20 13:04:00 EDT, [facility], 181, cm, 12/09/19 15:01:00 EST, Height Start Date: 05/31/20 Stop Date: 11/27/20 Status: Ordered ibuprofen 600 mg oral tablet 600 mg, 1, tablet, By Mouth, Every 6 hours, PRN, # 120 tablet, Refills 0, Tot. Refills 0, Maintenance, Pain, 01/08/20 15:02:00 EST, Route to Pharmacy Electronically, [facility], 181, cm, 12/09/19 15:01:00 EST, Height, 100.6, kg, 04/07/18 20:... Start Date: 01/08/20 Status: Ordered Klonopin 1 mg oral tablet 0.5 tablet = 0.5 mg, By Mouth, 2 times a day, PRN Anxiety, 0 Refills, Maintenance, 12/09/14 9:29:42 Start Date: 12/09/14 Status: Ordered Lac-Hydrin 12% cream 1 application, Topically, 2 times a day, # 280 Gm, 0 Refills, Maintenance, 01/19/19 14:44:22 EDT, Cream, 1 application Topically 2 times a day Start Date: 01/19/19 Status: Ordered Levemir FlexTouch 100 units/mL subcutaneous solution See Instructions, INJECT 45 UNITS SUBCUTANEOUSLY EVERY MORNING AND INJECT 35 UNITS SUBCUTANEOUSLY EVERY NIGHT AT BEDTIME, # 24 mL, 2 Refills, Soft Stop, 05/31/20 12:48:00 EDT, [facility], 181, cm, 12/09/19 15:01:00 EST, Height, Dry Weight Start Date: 05/31/20 Status: Ordered levothyroxine 150 mcg (0.15 mg) oral tablet 1 tablet = 150 mcg, By Mouth, Daily, # 30 tablet, 5 Refills, Maintenance, 04/04/20 20:54:00 EDT, Tablet, [facility], 181, cm, 12/09/19 15:01:00 EST, Height, 100.6, kg, 04/07/18 20:14:00 EDT, Dry Weight Start Date: 04/04/20 Status: Ordered lithium 450 mg oral tablet, extended release 1 tablet = 450 mg, By Mouth, Daily at bedtime, # 180 tablet, 0 Refills, Maintenance, 12/09/19 15:34:00 EST, ER Tablet Start Date: 12/09/19 Status: Ordered loratadine 10 mg oral tablet 10 mg, 1, tablet, By Mouth, Daily, # 30 tablet, Refills 5, Tot. Refills 5, Maintenance, 05/24/20 13:38:00 EDT, Route to Pharmacy Electronically, [facility], 181, cm, 12/09/19 15:01:00 EST, Height, Dry Weight Start Date: 05/24/20 Status: Ordered metFORMIN 1000 mg oral tablet 1 tablet = 1,000 mg, By Mouth, 2 times a day, # 60 tablet, 5 Refills, Maintenance, 04/29/20 12:49:00 EDT, [facility], 181, cm, 12/09/19 15:01:00 EST, Height, Dry Weight Start Date: 04/29/20 Status: Ordered Pen Gregory, 30 G x 8 mm BD Ultra Fine II See Instructions, # 100 each, Refills 6, Tot. Refills 6, Maintenance, for use w levemir flex pen use as directed for Type 1 Diabetes Mellitus, 05/27/19 9:12:21 EDT, Compound Start Date: 05/27/19 Stop Date: 12/23/19 Status: Ordered ProAir HFA 90 mcg/inh inhalation aerosol with adapter 1, puffs, Inhalation, Every 6 hours, PRN, # 18 Gm, Refills 0, Tot. Refills 0, Maintenance, 07/17/1813:34:55 EDT, Aerosol, Route to Pharmacy Electronically, [id number], [facility] Start Date: 07/17/18 Stop Date: 08/16/18 Status: Ordered Prolixin DECANOATE Inj = 25 mg, Intramuscular, Every 21 days, 0 Refills, Maintenance, 01/19/19 14:36:12 EDT Start Date: 01/19/19 Status: Ordered tamsulosin 0.4 mg oral capsule 1, capsule, By Mouth, Daily, # 30 capsule, Refills 11, Tot. Refills 0, Maintenance, 05/09/20 8:55:00 EDT, Route to Pharmacy Electronically, [facility], 181, cm, 12/09/19 15:01:00 EST, Height Start Date: 05/09/20 Status: Ordered Viagra 50 mg oral tablet 1 tablet = 50 mg, By Mouth, Daily, PRN as needed for erectile dysfunction, 1 hour before sexual activity, # 5 tablet, 0 Refills, Maintenance, 12/09/19 15:44:00 EST, Tablet, [facility], 181,cm, 12/09/19 15:01:00 EST, Height, 100.6, kg, 04/07... Start Date: 12/09/19 Status: Ordered Vistaril pamoate 25 mg oral capsule 1 capsule = 25 mg, By Mouth, 2 times a day, 0 Refills, Maintenance, 01/19/19 14:36:30 EDT Start Date: 01/19/19 Status: Ordered Problem List Condition Effective Dates Status Health Status Inform ant Bipolar disease, chronic(Confirmed) Active Blurry vision, right eye(Confirmed) Active COPD (chronic obstructive pu lmonary disease)(Confirmed) Active Low serum testosterone level(Confirmed) Active Diabetes mellitus(Confirmed) Active Diplopia(Confirmed) Active Dyslipidemia(Confirmed) Active Hypothyroidism(Confirmed) Active Neuropathy(Confirmed) Active Schizo-affective schizophrenia(Confirmed) Active Cranial nerve III palsy(Confirmed) Active Tobacco abuse(Confirmed) Active Social History Social History Type Response Smoking Status Current every day miguel drummond; Tobacco user in household: Yes; Type: Cigarettes; Tobacco use times per day: 1/2 PPD; entered on: 08/09/16 Sex
--- OUTSIDE RECORDS SUMMARY | 2024-03-02 18:39 | XMS_ITS | Continuity of Care Document ---
Author Organization [facility] Adult Address [address] [place] [address]- Care Team Providers Care Instrumentation Specialist Name Role Phone Rio ROBISON, Ginger Primary Care Physician Encounter [facility] [place] Date(s): 03/28/23 - 04/27/23 [facility] [address] [place] [id number]- Allergies, Adverse Reactions, Alerts Substance Reaction Severity Status amoxicillin Active sulfa drugs Active Immunizations Given and Recorded Vaccine Date Status Refusal Reason SARS-CoV-2 (COVID-19) mRNA BNT-162b2 vac 09/06/21 Recorded SARS-CoV-2 (COVID-19) mRNA BNT-162b2 vac 12/29/20 Recorded SARS-CoV-2 (COVID-19) mRNA BNT-162b2 vac 12/08/20 Recorded influenza virus vaccine, inactivated 1 09/24/19 Gi mitch influenza virus vaccine, inactivated 2 08/06/17 Gi mitch influenza virus vaccine, inactivated 11/02/15 Give n pneumococcal 23-valent vaccine 03/01/15 Given tetanus/diphtheria/pertussis, acel(Tdap) 03/01/15 Given tetanus-diphtheria toxoids (Td) 02/03/13 Recorded 1Result Comment: [facility] [id number] 2Result Comment: [facility] [id number] Medications albuterol 0.083% inhalation solution 3 mL = 2.5 mg, Inhalation, Every 6 hours, PRN for wheezing, DX COPD, # 60 each, 3 Refills, Maintenance, 10/21/20 16:57:00 EST, Solution, [facility], Partial fill upon patient request if theprescription is for a schedule II opioid drug., 181... Start Date: 12/11/20 Status: Ordered albuterol CFC free 90 mcg/inh inhalation aerosol 2, puffs, Inhalation, 4 times a day, PRN, # 18 Gm, Refills 11, Tot. Refills 11, Maintenance, 01/02/23 14:27:00 EST, Aerosol, Route to Pharmacy Electronically, NCPDP_[id number], [facility], 181, cm, 01/02/23 13:54:00 EST, Height Start Date: 01/02/23 Stop Date: 12/28/23 Status: Ordered Alcohol Pads See Instructions, # 200 each, Refills 11, Tot. Refills 11, Maintenance, use when testing glucose and injecting insulin dx e10.9, 04/15/20 11:52:00 EDT, Compound, 181, cm, 12/09/19 15:01:00 EST, Height Start Date: 04/15/20 Stop Date: 04/10/21 Status: Ordered ALCOHOL PREP PAD 70% ALCOHOL PREP PAD 70%, See Instructions, # 200 each, 5 Refills, Maintenance, USE WHEN TESTING GLUCOSE AND INJECTING INSULIN, 181, cm, 02/06/21 11:06:00 EDT, Height Start Date: 05/15/21 Status: Ordered atenolol 50 mg oral tablet See Instructions, TAKE 1/2 OF A TABLET BY MOUTH EVERY DAY, # 15 tablet, Refills 2, Tot. Refills 2, Maintenance, 01/04/23 11:17:00 EST, Instructions Replace Required Details, Route to Pharmacy Electronically, [facility], 181, cm, 01/02/23 13:... Start Date: 01/04/23 Status: Ordered atorvastatin 40 mg oral tablet See Instructions, TAKE 1 TABLET BY MOUTH DAILY, # 30 tablet, 0 Refills, Maintenance, 03/28/23 15:47:00 EDT, [facility], 181, cm, 01/02/23 13:54:00 EST, Height Start Date: 03/28/23 Status: Ordered BD PEN NEEDL MIS 31GX5/16 BD PEN NEEDL MIS 31GX5/16, See Instructions, # 100 each, 1 Refills, USE DIRECTED WITH INSULIN PENS, 181, cm, 01/15/22 11:07:00 EST, Height Start Date: 05/03/22 Status: Ordered clonazePAM 0.5 mg oral tablet 1 tablet = 0.5 mg, By Mouth, 2 times a day, 0 Refills, Maintenance, 08/11/21 12:41:00 EDT, Tablet, Partial fill upon patient request if the prescription is for a schedule II opioid drug. Start Date: 08/11/21 Status: Ordered clozapine 25 mg oral tablet TAKE 2 TABLET BY MOUTH ONCE A DAY TDD CLOZAPINE 50 MG BY MOUTH DAILY AND 200 MG BY MOUTH DAILY AT BEDTIME Start Date: 08/11/21 Status: Ordered COMFORT EZ MIS [id number] COMFORT EZ MIS [id number], See Instructions, # 100 each, Refills 5, Tot. Refills 5, Maintenance, USE TO INJECT INSULIN BID DX E11.9, 02/22/21 11:54:00 EDT, Supply, 181, cm, 02/06/21 11:06:00 EDT, Height Start Date: 02/22/21 Status: Ordered COMFORT EZ MIS [id number] COMFORT EZ MIS [id number], See Instructions, # 100 each, 2 Refills, USE DIRECTED WITH INSULIN PENS,181, cm, 08/09/21 14:56:00 EDT, Height Start Date: 10/31/21 Status: Ordered COMFRT TOUCH PAD ALC PREP COMFRT TOUCH PAD ALC PREP, See Instructions, # 200 each, 4 Refills, Maintenance, USE WHEN TESTING GLUCOSE AND INJECTING INSULIN, 10/02/22 8:56:00 EST, 181, cm, 07/23/22 10:45:00 EDT, Height Start Date: 10/02/22 Status: Ordered fluticasone 50 mcg/inh nasal spray 1 sprays, Nares, Both, 2 times a day, # 16 Gm, 11 Refills, Maintenance, 07/23/22 11:21:00 EDT, [place], [facility], Partial fill upon patient request if the prescription is for a schedule II opioid drug., 1 sprays Nares, Both 2 times a day, 18... Start Date: 07/23/22 Status: Ordered fluticasone/umeclidinium/vilanterol 100 mcg-62.5 mcg-25 mcg/inh inhalation powder 1 puffs, Inhalation, Daily, # 1 each, 11 Refills, Maintenance, 01/02/23 14:26:00 EST, [facility], Partial fill upon patient request if the prescription is for a schedule II opioid drug., 181, cm, 01/02/23 13:54:00 EST, Height Start Date: 01/02/23 Stop Date: 12/28/23 Status: Ordered Freestyle Lite Lancets See Instructions, # 100 each, Refills 11, Tot. Refills 11, Maintenance, USE TO TEST GLUCOSE TID; 8AM, 5PM, 8PM DX E10.9, 03/07/21 13:56:00 EDT, Compound, 181, cm, 02/06/21 11:06:00 EDT, Height Start Date: 03/07/21 Status: Ordered Freestyle Lite Test Strips See Instructions, # 100 each, Refills 6, Tot. Refills 6, Maintenance, USE TO TEST GLUCOSE TID; 8AM,5PM, 8PM DX E10.9, 08/09/21 10:29:00 EDT, Compound, 181, cm, 07/18/21 11:27:00 EDT, Height Start Date: 08/09/21 Status: Ordered FREESTYLE VICENTE LITE FREESTYLE VICENTE LITE, See Instructions, # 100 each, 5 Refills, Maintenance, USE THREE TIMES DAILY AT 8 AM, 5 PM AND 8 PM, 01/02/23 16:53:00 EST, 181, cm, 01/02/23 13:54:00 EST, Height Start Date: 01/02/23 Status: Ordered gabapentin 600 mg oral tablet 1 tablet, By Mouth, 3 times a day, # 270 tablet, 1 Refills, Maintenance, 03/28/23 16:39:00 EDT, [facility], 181, cm, 01/02/23 13:54:00 EST, Height Start Date: 03/28/23 Status: Ordered Lac-Hydrin 12% cream 1 application, Topically, 2 times a day, # 280 Gm, 0 Refills, Maintenance, 01/19/19 14:44:22 EDT, Cream, 1 application Topically 2 times a day Start Date: 01/19/19 Status: Ordered Levemir FlexTouch 100 units/mL subcutaneous solution See Instructions, INJECT 30 UNITS SUBCUTANEOUSLY EVERY NIGHT AT BEDTIME, # 30 mL, 4 Refills, 07/09/22 15:53:00 EDT, [facility], 181, cm, 07/09/22 14:59:00 EDT, Height Start Date: 07/09/22 Status: Ordered levothyroxine 150 mcg (0.15 mg) oral tablet 1 tablet, By Mouth, Daily, # 90 tablet, 2 Refills, Maintenance, 02/27/23 11:54:00 EDT, [facility], 181, cm, 01/02/23 13:54:00 EST, Height Start Date: 02/27/23 Status: Ordered lithium 450 mg oral tablet, extended release 1 tablet = 450 mg, By Mouth, 2 times a day, 0 Refills, Maintenance, 08/11/21 12:40:00 EDT, Partial fill upon patient request if the prescription is for a schedule II opioid drug. Start Date: 08/11/21 Status: Ordered loratadine 10 mg oral tablet 1, tablet, By Mouth, Daily, # 30 tablet, Refills 5, Tot. Refills 5, Maintenance, 03/15/23 9:56:00 EDT, Route to Pharmacy Electronically, [facility], 181, cm, 01/02/23 13:54:00 EST, Height Start Date: 03/15/23 Status: Ordered metFORMIN 1000 mg oral tablet 1 tablet, By Mouth, 2 times a day, # 60 tablet, 4 Refills, Maintenance, 12/14/22 8:54:00 EST, [facility], 181, cm, 07/23/22 10:45:00 EDT, Height Start Date: 12/14/22 Status: Ordered Nebulizer/Compressor See Instructions, PRN, # 1 each, Maintenance, Wheezing/Shortness of Breath, Use with albuterol solution q6h Dx: COPD (J44.9), 10/21/20 14:33:00 EST, Supply Start Date: 10/21/20 Status: Ordered NovoLOG FlexPen 100 units/mL injectable solution See Instructions, INJECT SUBCUTANEOUSLY THREE TIMES DAILY WITH MEALS PER SCALE 110-150=0UNITS; 151-200=2UN; 201-250=6UN; 251-300=8UN; 301-350=10UNITS; >350=12UN AND CALL PCP, # 15 mL, 5 Refills, 12/27/22 14:29:00 EST, [facility], 181, cm, 09... Start Date: 12/27/22 Status: Ordered Pen [place], 30 G x 8 mm BD Ultra Fine II See Instructions, # 100 each, Refills 3, Tot. Refills 3, Maintenance, for use w levemir flex pen use as directed for Type 1 Diabetes Mellitus, 06/27/21 12:50:00 EDT, Compound, 181, cm, 02/06/21 11:06:00 EDT, Height Start Date: 06/27/21 Stop Date: 10/25/21 Status: Ordered Problem List Condition Confirmation Course Effective Dates Status H ealth Status Informant BPH (benign prostatic hyperplasia) Confirmed Active Bipolar disease, chronic Confirmed Active COPD (chronic obstructive pulmonary disease) Confirmed Active Low serum testosterone level Confirmed Active Diabetes mellitus Confirmed Active Dyslipidemia Confirmed Active Hypothyroidism Confirmed Active Type 2 diabetes mellitus with diabetic neuropathy Confirmed Active Schizo-affective schizophrenia Confirmed Active Tobacco abuse Confirmed Active Social History Social History Type Response Smoking Status Current every day sm oker; Tobacco user in household: Yes; Type: Cigarettes; Tobacco use times per day: 1/2 PPD; entered on: 08/09/16 Sex Patient Care team information Care Team Personnel Name: Vandana Gibbs RN Position: [facility] RN Member Role: Primary Care Nurse Name: Ginger Pate MD Position: [facility] Physician - Primary Care Member Role: PCP Address: Address: [address] [place] [address]- Care Team Related Persons Name: MARGARET RAMÍREZ Address: home [address] [place] [address]. [place], [place] Name: REINA RAMÍREZ Address: home [address], [place] Name: LUZ DE LA CRUZ
--- OUTSIDE RECORDS SUMMARY | 2024-03-02 18:39 | XMS_ITS | Continuity of Care Document ---
Author Organization [facility] Adult Address [address] [place] [address]- Care Team Providers Care Environmental Engineering Assistant Name Role Phone Rio ROBISON, Ginger Primary Care Physician Encounter [facility] [place] Date(s): 03/29/23 - 04/28/23 [facility] [address] [place] [id number]- Allergies, Adverse Reactions, Alerts Substance Reaction Severity [...] tetanus-diphtheria toxoids (Td) 02/03/13 Recorded 1Result Comment: [facility] [id number] 2Result Comment: [facility] [id number] Medications albuterol 0.083% inhalation solution 3 mL = 2.5 mg, Inhalation, Every 6 hours, PRN for wheezing, DX COPD, # 60 each, 3 Refills, Maintenance, 10/21/20 16:57:00 EST, Solution, [facility], Partial fill upon patient request if theprescription is for a schedule II opioid drug., 181... Start Date: 12/11/20 Status: Ordered albuterol CFC free 90 mcg/inh inhalation aerosol 2, puffs, Inhalation, 4 times a day, PRN, # 18 Gm, Refills 11, Tot. Refills 11, Maintenance, 01/02/23 14:27:00 EST, Aerosol, Route to Pharmacy Electronically, NCPDP_[id number], [facility], 181, cm, 01/02/23 13:54:00 EST, Height [...] Replace Required Details, Route to Pharmacy Electronically, [facility], 181, cm, 01/02/23 13:... Start Date: 01/04/23 Status: Ordered atorvastatin 40 mg oral tablet See Instructions, TAKE 1 TABLET BY MOUTH DAILY, # 30 tablet, 0 Refills, Maintenance, 03/28/23 15:47:00 EDT, [facility], 181, cm, 01/02/23 13:54:00 EST, Height [...] Date: 08/11/21 Status: Ordered COMFORT EZ MIS [id number] COMFORT EZ MIS [id number], See Instructions, # 100 each, Refills 5, Tot. Refills 5, Maintenance, USE TO INJECT INSULIN BID DX E11.9, 02/22/21 11:54:00 EDT, Supply, 181, cm, 02/06/21 11:06:00 EDT, Height Start Date: 02/22/21 Status: Ordered COMFORT EZ MIS [id number] COMFORT EZ MIS [id number], See Instructions, # 100 each, 2 Refills, [...] Gm, 11 Refills, Maintenance, 07/23/22 11:21:00 EDT, [place], [facility], Partial fill upon patient request if the prescription is for a schedule II opioid drug., 1 sprays Nares, Both 2 times a day, 18... Start Date: 07/23/22 Status: Ordered fluticasone/umeclidinium/vilanterol 100 mcg-62.5 mcg-25 mcg/inh inhalation powder 1 puffs, Inhalation, Daily, # 1 each, 11 Refills, Maintenance, 01/02/23 14:26:00 EST, [facility], Partial fill upon patient request if [...] tablet, 1 Refills, Maintenance, 03/28/23 16:39:00 EDT, [facility], 181, cm, 01/02/23 13:54:00 EST, Height [...] 30 mL, 4 Refills, 07/09/22 15:53:00 EDT, [facility], 181, cm, 07/09/22 14:59:00 EDT, Height Start Date: 07/09/22 Status: Ordered levothyroxine 150 mcg (0.15 mg) oral tablet 1 tablet, By Mouth, Daily, # 90 tablet, 2 Refills, Maintenance, 02/27/23 11:54:00 EDT, [facility], 181, cm, 01/02/23 13:54:00 EST, Height [...] 03/15/23 9:56:00 EDT, Route to Pharmacy Electronically, [facility], 181, cm, 01/02/23 13:54:00 EST, Height Start Date: 03/15/23 Status: Ordered metFORMIN 1000 mg oral tablet 1 tablet, By Mouth, 2 times a day, # 60 tablet, 4 Refills, Maintenance, 12/14/22 8:54:00 EST, [facility], 181, cm, 07/23/22 10:45:00 EDT, Height [...] 15 mL, 5 Refills, 12/27/22 14:29:00 EST, [facility], 181, cm, 09... Start Date: 12/27/22 Status: Ordered Pen [place], 30 G x 8 mm BD Ultra [...] Team Personnel Name: Vandana Gibbs RN Position: [facility] RN Member Role: Primary Care Nurse Name: Ginger Pate MD Position: [facility] Physician - Primary Care Member Role: PCP Address: Address: [address] [place] [address]- Care Team Related Persons Name: MARGARET RAMÍREZ Address: home [address] [place] [address]. [place], [place] Name: REINA RAMÍREZ Address: home [address], [place] Name: LUZ DE LA CRUZ
--- OUTSIDE RECORDS SUMMARY | 2024-03-02 18:39 | XMS_ITS | Continuity of Care Document ---
Author Organization [facility] Adult Address [address] [place] [address]- Care Team Providers Care Chemical Maker Name Role Phone Rio ROBISON, Ginger Primary Care Physician Encounter [facility] [place] Date(s): 07/04/22 - 08/03/[address] [facility] Adult [address] [place] [phone]- Allergies, Adverse Reactions, Alerts Substance Reaction Severity [...] tetanus-diphtheria toxoids (Td) 02/03/13 Recorded 1Result Comment: [facility] [id number] 2Result Comment: [facility] [id number] Medications albuterol 0.083% inhalation solution 3 mL = 2.5 mg, Inhalation, Every 6 hours, PRN for wheezing, DX COPD, # 60 each, 3 Refills, Maintenance, 10/21/20 16:57:00 EST, Solution, [facility], Partial fill upon patient request if theprescription is for a schedule II opioid drug., 181... Start Date: 10/21/20 Status: Ordered albuterol CFC free 90 mcg/inh inhalation aerosol 2, puffs, Inhalation, 4 times a day, PRN, # 18 Gm, Refills 11, Tot. Refills 11, Maintenance, 01/12/21 15:28:00 EST, Aerosol, Route to Pharmacy Electronically, NCPDP_[id number], [facility], 181, cm, 01/04/21 15:28:00 EST, Height Start Date: 01/12/21 Stop Date: 01/07/22 Status: Ordered albuterol CFC free 90 mcg/inh inhalation aerosol 2, puffs, Inhalation, 4 times a day, PRN, # 18 Gm, Refills 11, Tot. Refills 11, Maintenance, 01/15/22 11:28:00 EST, Aerosol, Route to Pharmacy Electronically, NCPDP_[id number], [facility], 181, cm, 01/15/22 11:07:00 EST, Height Start Date: 01/15/22 Status: Ordered Alcohol Pads See Instructions, # [...] EDT, Height Start Date: 05/15/21 Status: Ordered Anoro Ellipta 62.5 mcg-25 mcg/inh inhalation powder 1 puffs, Inhalation, Daily, # 60 each, 10 Refills, Maintenance, 08/01/22 15:16:00 EDT, [facility], 30, INHALE 1 PUFF BY MOUTH ONCE DAILY, 181, cm, 07/23/22 10:45:00 EDT, Height Start Date: 08/01/22 Status: Ordered Atarax Tablet = 25 mg, By Mouth, 2 times a day, 0 Refills, Maintenance, 08/11/21 12:43:00 EDT, Partial fill upon patient request if the prescription is for a schedule II opioid drug. Start Date: 08/11/21 Status: Ordered atenolol 50 mg oral tablet 1/2 Tablet, By Mouth, Daily, # 45 tablet, Refills 1, Tot. Refills 1, Maintenance, 08/01/22 20:31:00EDT, Route to Pharmacy Electronically, [facility], 181, cm, 07/23/22 10:45:00 EDT, Height Start Date: 08/01/22 Status: Ordered atorvastatin 40 mg oral tablet 1 tablet, By Mouth, Daily, # 90 tablet, 1 Refills, [facility], 181, cm, 01/15/22 11:07:00EST, Height Start Date: 04/26/22 Status: Ordered BD PEN NEEDL MIS 31GX5/16 BD PEN NEEDL MIS 31GX5/16, See Instructions, # 100 each, 1 Refills, USE DIRECTED WITH INSULIN PENS, 181, cm, 01/15/22 11:07:00 EST, Height Start Date: 05/03/22 Status: Ordered benztropine 1 mg oral tablet 1 mg, 1, tablet, By Mouth, Daily in AM, # 30 tablet, Refills 0, Maintenance, 08/11/21 12:40:00 EDT,Partial fill upon patient request if the prescription is for a schedule II opioid drug. Start Date: 08/11/21 Status: Ordered clonazePAM 0.5 mg oral tablet [...] AT BEDTIME Start Date: 08/11/21 Status: Ordered Clozaril 200 mg oral tablet 1 tablet = 200 mg, By Mouth, Daily at bedtime, 0 Refills, Maintenance, 08/11/21 12:41:00 EDT, Partial fill upon patient request if the prescription is for a schedule II opioid drug. Start Date: 08/11/21 Status: Ordered COMFORT EZ MIS [id number] COMFORT EZ MIS [id number], See Instructions, # 100 each, Refills 5, Tot. Refills 5, Maintenance, USE TO INJECT INSULIN BID DX E11.9, 02/22/21 11:54:00 EDT, Supply, 181, cm, 02/06/21 11:06:00 EDT, Height Start Date: 02/22/21 Status: Ordered COMFORT EZ MIS [id number] COMFORT EZ MIS [id number], See Instructions, # 100 each, 2 Refills, USE DIRECTED WITH INSULIN PENS,181, cm, 08/09/21 14:56:00 EDT, Height Start Date: 10/31/21 Status: Ordered Depakote ER 250 mg oral tablet, extended release 2 tablet = 500 mg, By Mouth, Daily, 0 Refills, Maintenance, 08/11/21 12:42:00 EDT, Partial fill upon patient request if the prescription is for a schedule II opioid drug. Start Date: 08/11/21 Status: Ordered famotidine 20 mg oral tablet 20 mg, 1, tablet, By Mouth, 2 times a day, # 28 tablet, Refills 2, Tot. Refills 2, Maintenance, 10/09/18 15:47:31 EST, Route to Pharmacy Electronically, [id number], DENNISE Ureñaamp; [facility] Start Date: 10/09/18 Status: Ordered fluPHENAZine 2.5 mg oral tablet 1 tablet = 2.5 mg, By Mouth, Daily in AM, # 30 tablet, 0 Refills, Maintenance, 08/11/21 12:40:00 EDT, Tablet, Partial fill upon patient request if the prescription is for a schedule II opioid drug. Start Date: 08/11/21 Status: Ordered fluticasone 50 mcg/inh nasal spray 1 sprays, Nares, Both, 2 times a day, # 16 Gm, 11 Refills, Maintenance, 07/23/22 11:21:00 EDT, [place], [facility], Partial fill upon patient request if the prescription is for a schedule II opioid drug., 1 sprays Nares, Both 2 times a day, 18... Start Date: 07/23/22 Status: Ordered Freestyle Lite Lancets See Instructions, [...] EDT, Height Start Date: 08/09/21 Status: Ordered gabapentin 600 mg oral tablet 1 tablet, By Mouth, 3 times a day, # 270 tablet, 0 Refills, Maintenance, 05/31/22 12:02:00 EDT, [facility], 181, cm, 01/15/22 11:07:00 EST, Height Start Date: 05/31/22 Status: Ordered insulin lispro 100 u/ml subcutaneous injection See Instructions, SLIDING SCALE glucose insulin 110-150=0units 151-200=2un 201- 250=6un 251-300=8un 301-350=10units >350=12un and call PCP with BREAKFAST, LUNCH, AND DINNER, # 15 mL, 0 Refills, Maintenance, 06/27/21 15:30:00 EDT, [place]... Start Date: 06/27/21 Status: Ordered Lac-Hydrin 12% cream 1 application, Topically, 2 times a day, # 280 Gm, 0 Refills, Maintenance, 01/19/19 14:44:22 EDT, Cream, 1 application Topically 2 times a day Start Date: 01/19/19 Status: Ordered Levemir FlexTouch 100 units/mL subcutaneous solution See Instructions, INJECT 30 UNITS SUBCUTANEOUSLY EVERY NIGHT AT BEDTIME, # 30 mL, 4 Refills, 07/09/22 15:53:00 EDT, [facility], 181, cm, 07/09/22 14:59:00 EDT, Height Start Date: 07/09/22 Status: Ordered levothyroxine 150 mcg (0.15 mg) oral tablet 1 tablet, By Mouth, Daily, # 90 tablet, 1 Refills, Maintenance, 08/01/22 20:32:00 EDT, [facility], 181, cm, 07/23/22 10:45:00 EDT, Height Start Date: 08/01/22 Status: Ordered lithium 300 mg oral tablet 1 tablet = 300 mg, By Mouth, Daily in AM, 0 Refills, Maintenance, 08/11/21 12:42:00 EDT, Partial fill upon patient request if the prescription is for a schedule II opioid drug. Start Date: 08/11/21 Status: Ordered lithium 450 mg oral tablet, extended release 1 tablet = 450 mg, By Mouth, Daily at bedtime, 0 Refills, Maintenance, 08/11/21 12:40:00 EDT, Partial fill upon patient request if the prescription is for a schedule II opioid drug. Start Date: 08/11/21 Status: Ordered loratadine 10 mg oral tablet 1, tablet, By Mouth, Daily, # 30 tablet, Refills 5, Route to Pharmacy Electronically, [facility], 181, cm, 01/15/22 11:07:00 EST, Height Start Date: 02/01/22 Status: Ordered metFORMIN 1000 mg oral tablet 1 tablet, By Mouth, 2 times a day, # 60 tablet, 5 Refills, [facility], 181, cm, 01/15/22 11:07:00 EST, Height Start Date: 05/29/22 Status: Ordered Nebulizer/Compressor See Instructions, PRN, # 1 each, Maintenance, Wheezing/Shortness of Breath, Use with albuterol solution q6h Dx: COPD (J44.9), 10/21/20 14:33:00 EST, Supply Start Date: 10/21/20 Status: Ordered NovoLOG FlexPen 100 units/mL injectable solution See Instructions, INJECT SUBCUTANEOUSLY THREE TIMES DAILY WITH MEALS PER SCALE 110-150=0UNITS; 151-200=2UN; 201-250=6UN; 251-300=8UN; 301-350=10UNITS; >350=12UN AND CALL PCP, # 15 mL, 5 Refills, [facility], 181, cm, 01/15/22 11:07:00 EST, He... Start Date: 03/29/22 Status: Ordered Pen [place], 30 G x 8 mm BD Ultra Fine II See Instructions, # 100 each, Refills 3, Tot. Refills 3, Maintenance, for use w levemir flex pen use as directed for Type 1 Diabetes Mellitus, 06/27/21 12:50:00 EDT, Compound, 181, cm, 02/06/21 11:06:00 EDT, Height Start Date: 06/27/21 Stop Date: 10/25/21 Status: Ordered tamsulosin 0.4 mg oral capsule 0.8 mg, 2, capsule, By Mouth, Daily, for 90 days, # 180 capsule, Refills 2, Tot. Refills 2, Physician Stop 04/05/23 15:46:00 EDT, 07/09/22 15:46:00 EDT, Route to Pharmacy Electronically, [facility], 181, cm, 07/09/22 14:59:00 EDT, Height Start Date: 07/09/22 Stop Date: 04/05/23 Status: Ordered Vistaril pamoate 25 mg oral capsule 1 capsule = 25 mg, By Mouth, 2 times a day, 0 Refills, Maintenance, 01/19/19 14:36:30 EDT Start Date: 01/19/19 Status: Ordered Problem List Condition Effective Dates Status Health Status Inform ant BPH (benign prostatic hyperplasia)(Confirmed) Active Bipolar disease, chronic(Confirmed) Active COPD (chronic obstructive pu lmonary disease)(Confirmed) Active Low serum testosterone level(Confirmed) Active Diabetes mellitus(Confirmed) Active Dyslipidemia(Confirmed) Active Hypothyroidism(Confirmed) Active Type 2 diabetes mellitus wit h diabetic neuropathy(Confirmed) Active Schizo-affective schizophrenia(Confirmed) Active Tobacco abuse(Confirmed) Active Social History Social History Type Response Smoking Status Current every day sm oker; Tobacco user in household: Yes; Type: Cigarettes; Tobacco use times per day: 1/2 PPD; entered on: 08/09/16 Sex Care Team Personnel Name: Rio ROBISON, Ginger Address: [address] [place] [id number]
--- OUTSIDE RECORDS SUMMARY | 2024-03-02 18:39 | XMS_ITS | Continuity of Care Document ---
Author Organization [facility] Adult Address [address] [place] [address]- Care Team Providers Care Director Of Global Talent Name Role Phone Rio ROBISON, Ginger Primary Care Physician Encounter [facility] [place] Date(s): 07/09/22 - 08/08/22 [facility] [address] [place] [address]- Attending Physician: Admtr, Ar8 Admitting Physician: Admtr, Ar8 Referring Physician: Admtr, Ar8 Allergies, Adverse Reactions, Alerts Substance Reaction Severity [...] tetanus-diphtheria toxoids (Td) 02/03/13 Recorded 1Result Comment: [facility] [id number] 2Result Comment: [facility] [id number] Medications albuterol 0.083% inhalation solution 3 mL = 2.5 mg, Inhalation, Every 6 hours, PRN for wheezing, DX COPD, # 60 each, 3 Refills, Maintenance, 10/21/20 16:57:00 EST, Solution, [facility], Partial fill upon patient request if theprescription is for a schedule II opioid drug., 181... Start Date: 10/21/20 Status: Ordered albuterol CFC free 90 mcg/inh inhalation aerosol 2, puffs, Inhalation, 4 times a day, PRN, # 18 Gm, Refills 11, Tot. Refills 11, Maintenance, 01/12/21 15:28:00 EST, Aerosol, Route to Pharmacy Electronically, NCPDP_[id number], [facility], 181, cm, 01/04/21 15:28:00 EST, Height Start Date: 01/12/21 Stop Date: 01/07/22 Status: Ordered albuterol CFC free 90 mcg/inh inhalation aerosol 2, puffs, Inhalation, 4 times a day, PRN, # 18 Gm, Refills 11, Tot. Refills 11, Maintenance, 01/15/22 11:28:00 EST, Aerosol, Route to Pharmacy Electronically, NCPDP_[id number], [facility], 181, cm, 01/15/22 11:07:00 EST, Height [...] each, 10 Refills, Maintenance, 08/01/22 15:16:00 EDT, [facility], 30, INHALE 1 PUFF BY MOUTH [...] Maintenance, 08/01/22 20:31:00EDT, Route to Pharmacy Electronically, [facility], 181, cm, 07/23/22 10:45:00 EDT, Height Start Date: 08/01/22 Status: Ordered atorvastatin 40 mg oral tablet 1 tablet, By Mouth, Daily, # 90 tablet, 1 Refills, [facility], 181, cm, 01/15/22 11:07:00EST, Height Start [...] Date: 08/11/21 Status: Ordered COMFORT EZ MIS [id number] COMFORT EZ MIS [id number], See Instructions, # 100 each, Refills 5, Tot. Refills 5, Maintenance, USE TO INJECT INSULIN BID DX E11.9, 02/22/21 11:54:00 EDT, Supply, 181, cm, 02/06/21 11:06:00 EDT, Height Start Date: 02/22/21 Status: Ordered COMFORT EZ MIS [id number] COMFORT EZ MIS [id number], See Instructions, # 100 each, 2 Refills, [...] 10/09/18 15:47:31 EST, Route to Pharmacy Electronically, [id number], [facility] Ure[facility]; [facility] Start Date: [...] Gm, 11 Refills, Maintenance, 07/23/22 11:21:00 EDT, [place], [facility], Partial fill upon patient request if [...] tablet, 0 Refills, Maintenance, 05/31/22 12:02:00 EDT, [facility], 181, cm, 01/15/22 11:07:00 EST, Height [...] 30 mL, 4 Refills, 07/09/22 15:53:00 EDT, [facility], 181, cm, 07/09/22 14:59:00 EDT, Height Start Date: 07/09/22 Status: Ordered levothyroxine 150 mcg (0.15 mg) oral tablet 1 tablet, By Mouth, Daily, # 90 tablet, 1 Refills, Maintenance, 08/01/22 20:32:00 EDT, [facility], 181, cm, 07/23/22 10:45:00 EDT, Height [...] tablet, Refills 5, Route to Pharmacy Electronically, [facility], 181, cm, 01/15/22 11:07:00 EST, Height Start Date: 02/01/22 Status: Ordered metFORMIN 1000 mg oral tablet 1 tablet, By Mouth, 2 times a day, # 60 tablet, 5 Refills, [facility], 181, cm, 01/15/22 11:07:00 EST, Height Start [...] CALL PCP, # 15 mL, 5 Refills, [facility], 181, cm, 01/15/22 11:07:00 EST, He... Start Date: 03/29/22 Status: Ordered [place], 30 G x 8 mm BD Ultra [...] 07/09/22 15:46:00 EDT, Route to Pharmacy Electronically, [facility], 181, cm, 07/09/22 14:59:00 EDT, Height Start Date: 07/09/22 Stop Date: 04/05/23 Status: Ordered Vistaril pamoate 25 mg oral capsule 1 capsule = 25 mg, By Mouth, 2 times a day, 0 Refills, Maintenance, 01/19/19 14:36:30 EDT Start Date: 01/19/19 Status: Ordered Problem List Condition Confirmation Course [...] on: 08/09/16 Sex Patient Care team information Personnel Name: Ginger Pate MD Address: Address: [address] [place], [place] [address]
--- OUTSIDE RECORDS SUMMARY | 2024-03-02 18:39 | XMS_ITS | Continuity of Care Document ---
Author Organization [facility] Adult Address [address] [place] [address]- Care Team Providers Care Evp Global Multimedia Sales Name Role Phone Rio ROBISON, Ginger Primary Care Physician [place] [facility] [place] 02[place] - 02/13/21 [facility] Adult [address] [place] [phone]- Encounter Diagnosis Right hip pain(Discharge Diagnosis) - 02/06/21 Right knee pain(Discharge Diagnosis) - 02/06/21 Attending Physician: Ginger Pate MD Allergies, Adverse Reactions, Alerts Substance Reaction Severity Status amoxicillin Active sulfa drugs Active Immunizations Given and Recorded Vaccine Date Status Refusal Reason influenza virus vaccine, inactivated 1 09/24/19 Gi mitch influenza virus vaccine, inactivated 2 08/06/17 Gi mitch influenza virus vaccine, inactivated 11/02/15 Give n pneumococcal 23-valent vaccine 03/01/15 Given tetanus/diphtheria/pertussis, acel(Tdap) 03/01/15 Given 1Result Comment: [facility] [id number] 2Result Comment: [facility] [id number] Medications albuterol 0.083% inhalation solution 3 mL = 2.5 mg, Inhalation, Every 6 hours, PRN for wheezing, DX COPD, # 60 each, 3 Refills, Maintenance, 10/21/20 16:57:00 EST, Solution, [facility], Partial fill upon patient request if theprescription is for a schedule II opioid drug., 181... Start Date: 10/21/20 Status: Ordered albuterol CFC free 90 mcg/inh inhalation aerosol 2, puffs, Inhalation, 4 times a day, PRN, # 18 Gm, Refills 11, Tot. Refills 11, Maintenance, 01/12/21 15:28:00 EST, Aerosol, Route to Pharmacy Electronically, NCPDP_[id number], [facility], 181, cm, 01/04/21 15:28:00 EST, Height Start Date: 01/12/21 Stop Date: 01/07/22 Status: Ordered Alcohol Pads See Instructions, # 200 each, Refills 11, Tot. Refills 11, Maintenance, use when testing glucose and injecting insulin dx e10.9, 04/15/20 11:52:00 EDT, Compound, 181, cm, 12/09/19 15:01:00 EST, Height Start Date: 04/15/20 Stop Date: 04/10/21 Status: Ordered Anoro Ellipta 62.5 mcg-25 mcg/inh inhalation powder 1 puffs, Inhalation, Daily, # 1 each, 11 Refills, Maintenance, 01/12/21 15:29:00 EST, [place], [facility], Partial fill upon patient request if the prescription is for a schedule II opioid drug., 1 puffs Inhalation Daily,x30 days, 181, cm, 02... Start Date: 01/12/21 Stop Date: 01/07/22 Status: Ordered atenolol 50 mg oral tablet 25 mg, 0.5, tablet, By Mouth, Daily, # 15 tablet, Refills 1, Tot. Refills 1, Maintenance, 10/31/20 9:30:00 EST, Route to Pharmacy Electronically, [facility], Rx resent from 05/11/19., 181, cm, 10/21/20 11:47:00 EST, Height Start Date: 10/31/20 Status: Ordered atorvastatin 40 mg oral tablet 1 tablet = 40 mg, By Mouth, Daily, # 90 tablet, 1 Refills, Maintenance, 07/26/20 12:07:00 EDT, Tablet, [facility], 181, cm, 12/09/19 15:01:00 EST, Height, Dry Weight Start Date: 07/26/20 Status: Ordered benztropine 1 mg oral tablet [...] 9:33:29 EST Start Date: 12/09/14 Status: Ordered Depakote 250 mg oral enteric coated tablet 1 tablet = 250 mg, By Mouth, Daily at bedtime, 0 Refills, Maintenance, 10/21/20 12:14:00 EST, Partial fill upon patient request if the prescription is for a schedule II opioid drug. Start Date: 10/21/20 Status: Ordered divalproex sodium 500 mg oral [...] 10/09/18 15:47:31 EST, Route to Pharmacy Electronically, [id number], DENN[facility] Ure[facility]amp; [facility] Start Date: 10/09/18 Status: Ordered fluPHENAZine 2.5 mg oral tablet 1 tablet = 2.5 mg, By Mouth, 2 times a day, 0 Refills, Maintenance, 10/21/20 12:13:00 EST, Partial fill upon patient request if the prescription is for a schedule II opioid drug. Start Date: 10/21/20 Status: Ordered Freestyle Lite Lancets See Instructions, # 100 each, Refills 11, Tot. Refills 11, Maintenance, USE TO TEST GLUCOSE TID; 8AM, 5PM, 8PM DX E10.9, 07/01/19 11:48:14 EDT, Compound Start Date: 07/01/19 Status: Ordered Freestyle Lite Test Strips See Instructions, # 100 each, Refills 11, Tot. Refills 11, Maintenance, USE TO TEST GLUCOSE TID; 8AM, 5PM, 8PM DX E10.9, 07/05/20 10:44:00 EDT, Compound, 181, cm, 12/09/19 15:01:00 EST, Height Start Date: 07/05/20 Status: Ordered gabapentin 600 mg oral tablet 1 tablet, By Mouth, 3 times a day, # 270 tablet, 0 Refills, Maintenance, 01/24/21 14:43:00 EDT, [facility], 181, cm, 01/04/21 15:28:00 EST, Height Start Date: 01/24/21 Status: Ordered ibuprofen 600 mg oral tablet 600 mg, 1, tablet, By Mouth, Every 6 hours, PRN, # 120 tablet, Refills 0, Tot. Refills 0, Maintenance, Pain, 01/12/21 9:14:00 EST, Route to Pharmacy Electronically, [facility], 181, cm, 01/04/21 15:28:00 EST, Height Start Date: 01/12/21 Status: Ordered insulin lispro 100 u/ml subcutaneous injection See Instructions, SLIDING SCALE glucose insulin 110-150=0units 151-200=2un 201- 250=6un 251-300=8un 301-350=10units >350=12un and call PCP with BREAKFAST, LUNCH, AND DINNER, # 15 mL, 0 Refills, Maintenance, 10/25/20 12:02:00 EST, Spring... Start Date: 10/25/20 Status: Ordered Klonopin 1 mg oral tablet [...] Ordered Levemir FlexTouch 100 units/mL subcutaneous solution = 25 units, Subcutaneous Injection, Daily at bedtime, # 24 mL, 5 Refills, Soft Stop, 10/25/20 9:50:00 EST, [facility], 181, cm, 10/21/20 11:47:00 EST, Height Start Date: 10/25/20 Status: Ordered levothyroxine 150 mcg (0.15 mg) oral tablet 1 tablet = 150 mcg, By Mouth, Daily, # 30 tablet, 5 Refills, Maintenance, 11/08/20 11:44:00 EST, Tablet, [facility], 181, cm, 10/21/20 11:47:00 EST, Height Start Date: 11/08/20 Status: Ordered lithium 300 mg oral tablet 1 tablet = 300 mg, By Mouth, Daily, 0 Refills, Maintenance, 10/21/20 12:13:00 EST, Partial fill upon patient request if the prescription is for a schedule II opioid drug. Start Date: 10/21/20 Status: Ordered lithium 450 mg oral tablet, extended release 1 tablet = 450 mg, By Mouth, Daily at bedtime, # 180 tablet, 0 Refills, Maintenance, 12/09/19 15:34:00 EST, ER Tablet Start Date: 12/09/19 Status: Ordered loratadine 10 mg oral tablet 10 mg, 1, tablet, By Mouth, Daily, # 30 tablet, Refills 5, Tot. Refills 5, Maintenance, 12/28/20 15:39:00 EST, Route to Pharmacy Electronically, [facility], 181, cm, 10/21/20 11:47:00 EST, Height Start Date: 12/28/20 Status: Ordered metFORMIN 1000 mg oral tablet 1 tablet = 1,000 mg, By Mouth, 2 times a day, # 60 tablet, 5 Refills, Maintenance, 11/01/20 9:36:00EST, [facility], 181, cm, 10/21/20 11:47:00 EST, Height Start Date: 11/01/20 Status: Ordered Nebulizer/Compressor See Instructions, PRN, # 1 each, Maintenance, Wheezing/Shortness of Breath, Use with albuterol solution q6h Dx: COPD (J44.9), 10/21/20 14:33:00 EST, Supply Start Date: 10/21/20 Status: Ordered Pen [place], 30 G x 8 mm BD Ultra Fine II See Instructions, # 100 each, Refills 3, Tot. Refills 3, Maintenance, for use w levemir flex pen use as directed for Type 1 Diabetes Mellitus, 06/28/20 10:25:00 EDT, Compound, 181, cm, 12/09/19 15:01:00 EST, Height Start Date: 06/28/20 Stop Date: 10/26/20 Status: Ordered Prolixin DECANOATE Inj = 25 mg, Intramuscular, Every 21 days, 0 Refills, Maintenance, 01/19/19 14:36:12 EDT Start Date: 01/19/19 Status: Ordered tamsulosin 0.4 mg oral capsule 1, capsule, By Mouth, Daily, # 30 capsule, Refills 11, Tot. Refills 0, Maintenance, 05/09/20 8:55:00 EDT, Route to Pharmacy Electronically, [facility], 181, cm, 12/09/19 15:01:00 EST, Height Start Date: 05/09/20 Status: Ordered Vistaril pamoate 25 mg oral capsule 1 capsule = 25 mg, By Mouth, 2 times a day, 0 Refills, Maintenance, 01/19/19 14:36:30 EDT Start Date: 01/19/19 Status: Ordered Problem List Condition Effective Dates Status Health Status Inform ant BPH (benign prostatic hyperplasia)(Confirmed) Active Bipolar disease, chronic(Confirmed) Active Blurry vision, right eye(Confirmed) Active COPD (chronic obstructive pu lmonary disease)(Confirmed) Active Low serum testosterone level(Confirmed) Active Diabetes mellitus(Confirmed) Active Diplopia(Confirmed) Active Dyslipidemia(Confirmed) Active Hypothyroidism(Confirmed) Active Neuropathy(Confirmed) Active Type 2 diabetes mellitus wit h diabetic neuropathy(Confirmed) Active Schizo-affective schizophrenia(Confirmed) Active Cranial nerve III palsy(Confirmed) Active Tobacco abuse(Confirmed) Active Diagnosis Diagnosis Type Effective Dates Health Status Cl inical Service Informant Right hip pain Discharge Diagnosis 02/06/21 Right knee pain Discharge Diagnosis 02/06/21 Vital Signs Most recent to oldest [Reference Range]: 1 Height 181 cm (02/06/21 11:06 AM) Social History Social History Type Response Smoking Status Current every day sm oker; Tobacco user in household: Yes; Type: Cigarettes; Tobacco use times per day: 1/2 PPD; entered on: 08/09/16 Sex
--- OUTSIDE RECORDS SUMMARY | 2024-03-02 18:39 | XMS_ITS | Continuity of Care Document ---
Author Organization [facility] Adult Address [address] [place] [address]- Care Team Providers Care Portfolio Specialist Name Role Phone Rio ROBISON, Ginger Primary Care Physician Encounter [facility] Date(s): 05/02/21 - 06/01/21 [facility] Adult [address] [place] [address]- Allergies, Adverse Reactions, Alerts Substance Reaction Severity Status amoxicillin Active sulfa drugs Active Immunizations Given and Recorded Vaccine Date Status Refusal Reason influenza virus vaccine, inactivated 1 09/24/19 Gi mitch influenza virus vaccine, inactivated 2 08/06/17 Gi mitch influenza virus vaccine, inactivated 11/02/15 Give n pneumococcal 23-valent vaccine 03/01/15 Given tetanus/diphtheria/pertussis, acel(Tdap) 03/01/15 Given 1Result Comment: [facility] 68642-470-89 2Result Comment: [facility] [id number] Medications albuterol 0.083% inhalation solution 3 mL = 2.5 mg, Inhalation, Every 6 hours, PRN for wheezing, DX COPD, # 60 each, 3 Refills, Maintenance, 10/21/20 16:57:00 EST, Solution, [facility], Partial fill upon patient request if theprescription is for a schedule II opioid drug., 181... Start Date: 10/21/20 Status: Ordered albuterol CFC free 90 mcg/inh inhalation aerosol 2, puffs, Inhalation, 4 times a day, PRN, # 18 Gm, Refills 11, Tot. Refills 11, Maintenance, 01/12/21 15:28:00 EST, Aerosol, Route to Pharmacy Electronically, [id number]_[id number], [facility], 181, cm, 01/04/21 15:28:00 EST, Height [...] 11 Refills, Maintenance, 01/12/21 15:29:00 EST, Powder, [facility], Partial fill upon patient request if the prescription is for a schedule II opioid drug., 1 puffs Inhalation Daily,x30 days, 181, cm, 02... Start Date: 01/12/21 Stop Date: 01/07/22 Status: Ordered atenolol 50 mg oral tablet 25 mg, 0.5, tablet, By Mouth, Daily, # 15 tablet, Refills 1, Tot. Refills 1, Maintenance, 10/31/20 9:30:00 EST, Route to Pharmacy Electronically, [facility], Rx resent from 05/11/19., 181, cm, 10/21/20 11:47:00 EST, Height Start Date: 10/31/20 Status: Ordered atorvastatin 40 mg oral tablet 1 tablet = 40 mg, By Mouth, Daily, # 90 tablet, 1 Refills, Maintenance, 03/07/21 13:56:00 EDT, Tablet, [facility], 181, cm, 02/06/21 11:06:00 EDT, Height Start Date: 03/07/21 Status: Ordered benztropine 1 mg oral tablet [...] 9:33:29 EST Start Date: 12/09/14 Status: Ordered COMFORT EZ MIS [id number] COMFORT EZ MIS [id number], See Instructions, # 100 each, Refills 5, Tot. Refills 5, Maintenance, USE TO INJECT INSULIN BID DX E11.9, 02/22/21 11:54:00 EDT, Supply, 181, cm, 02/06/21 11:06:00 EDT, Height Start Date: 02/22/21 Status: Ordered Depakote 250 mg oral enteric [...] 10/09/18 15:47:31 EST, Route to Pharmacy Electronically, [id number], DENNISE Ureñaamp; [facility] Start Date: [...] DX E10.9, 03/07/21 13:56:00 EDT, Compound, 181, yoon, 02/06/21 11:06:00 EDT, Height Start Date: 03/07/21 Status: Ordered Freestyle Lite Test Strips See Instructions, # 100 each, Refills 11, Tot. Refills 11, Maintenance, USE TO TEST GLUCOSE TID; 8AM, 5PM, 8PM DX E10.9, 07/05/20 10:44:00 EDT, Compound, yoon [place], 12/09/19 15:01:00 EST, Height Start Date: 07/05/20 Status: Ordered gabapentin 600 mg oral tablet 1 tablet, By Mouth, 3 times a day, # 270 tablet, 0 Refills, Maintenance, 05/31/21 16:25:00 EDT, [facility], 181, yoon, 02/06/21 11:06:00 EDT, Height Start Date: 05/31/21 Status: Ordered ibuprofen 600 mg oral tablet 600 mg, 1, tablet, By Mouth, Every 6 hours, PRN, # 120 tablet, Refills 0, Tot. Refills 0, Maintenance, Pain, 04/04/21 16:38:00 EDT, Route to Pharmacy Electronically, [facility], 181, yoon, 02/06/21 11:06:00 EDT, Height Start Date: 04/04/21 Status: Ordered insulin lispro 100 u/ml subcutaneous [...] 5 Refills, Soft Stop, 10/25/20 9:50:00 EST, [facility], 181, cm, 10/21/20 11:47:00 EST, Height Start Date: 10/25/20 Status: Ordered levothyroxine 150 mcg (0.15 mg) oral tablet 1 tablet = 150 mcg, By Mouth, Daily, # 30 tablet, 5 Refills, Maintenance, 11/08/20 11:44:00 EST, Tablet, [facility], 181, cm, 10/21/20 11:47:00 EST, Height [...] 12/28/20 15:39:00 EST, Route to Pharmacy Electronically, [facility], 181, cm, 10/21/20 11:47:00 EST, Height Start Date: 12/28/20 Status: Ordered metFORMIN 1000 mg oral tablet 1 tablet = 1,000 mg, By Mouth, 2 times a day, # 60 tablet, 5 Refills, Maintenance, 04/27/21 11:14:00 EDT, [facility], 181, cm, 02/06/21 11:06:00 EDT, Height Start Date: 04/27/21 Status: Ordered Nebulizer/Compressor See Instructions, PRN, # 1 each, Maintenance, Wheezing/Shortness of Breath, Use with albuterol solution q6h Dx: COPD (J44.9), 10/21/20 14:33:00 EST, Supply Start Date: 10/21/20 Status: Ordered Pen [place], 30 G x 8 mm BD Ultra [...] 05/09/20 8:55:00 EDT, Route to Pharmacy Electronically, [facility], 181, cm, 12/09/19 15:01:00 EST, Height [...]
--- OUTSIDE RECORDS SUMMARY | 2024-03-02 18:39 | XMS_ITS | Continuity of Care Document ---
Author Organization [facility] Adult Address [address] [place] [address]- Care Team Providers Care House Repairer Name Role Phone Rio ROBISON, Ginger Primary Care Physician Encounter [facility] Date(s): 09/11/23 - 10/18/23 [facility] Adult [address] [place] [phone]- Attending Physician: Ginger Pate MD Allergies, Adverse [...] tetanus-diphtheria toxoids (Td) 02/03/13 Recorded 1Result Comment: [facility][NOTE 3] [id number] 2Result Comment: [facility] [id number] Medications albuterol 0.083% inhalation solution 3 mL [...] 14:27:00 EST, Aerosol, Route to Pharmacy Electronically, NCPDP_[id number], [facility], 181, cm, 01/02/23 13:54:00 EST, Height [...] Ordered atenolol 50 mg oral tablet 1/2 tablet, By Mouth, Daily, # 15 each, Refills 5, Tot. Refills 5, Maintenance, 09/04/23 13:27:00 EDT, Route to Pharmacy Electronically, [facility], 183, cm, 06/27/23 10:36:00 EDT, Height Start Date: 09/04/23 Stop Date: 03/02/24 Status: Ordered atorvastatin 40 mg oral tablet 1 tablet = 40 mg, By Mouth, Daily, # 90 tablet, 2 Refills, Maintenance, 09/19/23 8:50:00 EST, [facility], 183, cm, 09/10/23 14:55:00 EDT, Height Start Date: 09/19/23 Status: Ordered BD PEN NEEDL MIS 31GX5/16 BD PEN NEEDL MIS 31GX5/16, See Instructions, # 100 each, 1 Refills, USE DIRECTED WITH INSULIN PENS, 181, cm, 01/15/22 11:07:00 EST, Height Start Date: 05/03/22 Status: Ordered clozapine 25 mg oral tablet TAKE 2 TABLET BY MOUTH ONCE A DAY TDD CLOZAPINE 50 MG BY MOUTH DAILY AND 200 MG BY MOUTH DAILY AT BEDTIME Start Date: 08/11/21 Status: Ordered Clozaril 200 mg oral tablet 1 tablet = 200 mg, By Mouth, 3 times a day, 0 Refills, Maintenance, 06/27/23 10:53:00 EDT, Partial fill upon patient request if the prescription is for a schedule II opioid drug. Start Date: 06/27/23 Status: Ordered Clozaril 50 mg oral tablet 1.5 tablet = 75 mg, By Mouth, 3 times a day, 0 Refills, Maintenance, 06/27/23 10:53:00 EDT, Partialfill upon patient request if the prescription is for a schedule II opioid drug. Start Date: 06/27/23 Status: Ordered COMFORT EZ MIS [id number] COMFORT EZ MIS [id number], See Instructions, # 100 each, Refills 5, Tot. Refills 5, Maintenance, USE TO INJECT INSULIN BID DX E11.9, 02/22/21 11:54:00 EDT, Supply, 181, cm, 02/06/21 11:06:00 EDT, Height Start Date: 02/22/21 Status: Ordered COMFORT EZ MIS [id number] COMFORT EZ MIS [id number], See Instructions, # 100 each, 2 Refills, [...] Gm, 11 Refills, Maintenance, 07/23/22 11:21:00 EDT, [place], [facility], Partial fill upon patient request if the prescription is for a schedule II opioid drug., 1 sprays Nares, Both 2 times a day, 18... Start Date: 07/23/22 Status: Ordered fluticasone/umeclidinium/vilanterol 100 mcg-62.5 mcg-25 mcg/inh inhalation powder 1 puffs, Inhalation, Daily, # 1 each, 11 Refills, Maintenance, 01/02/23 14:26:00 EST, [facility], Partial fill upon patient request [...] tablet, 1 Refills, Maintenance, 03/28/23 16:39:00 EDT, [facility], 181, cm, 01/02/23 13:54:00 EST, Height Start Date: 03/28/23 Status: Ordered Konsyl 100% oral powder for reconstitution = 7.5 Gm, By Mouth, 3 times a day, # 500 Gm, 0 Refills, Maintenance, 09/10/23 15:26:00 EDT, REC Powder, [facility], Partial fill upon patient request if the prescription is for a schedule II opioid drug., 183, cm, 09/10/23 14:55:00 EDT, Height Start Date: 09/10/23 Status: Ordered Levemir FlexTouch 100 units/mL subcutaneous solution See Instructions, INJECT 45 UNITS SUBCUTANEOUSLY EVERY MORNING AND INJECT 35 UNITS SUBCUTANEOUSLY EVERY NIGHT AT BEDTIME, # 30 mL, 3 Refills, Maintenance, 09/25/23 8:40:00 EST, [facility], 183, cm, 09/10/23 14:55:00 EDT, Height Start Date: 09/25/23 Status: Ordered levothyroxine 150 mcg (0.15 mg) oral tablet 1 tablet, By Mouth, Daily, # 90 tablet, 2 Refills, Maintenance, 02/27/23 11:54:00 EDT, [facility], 181, cm, 01/02/23 13:54:00 EST, Height Start Date: 02/27/23 Status: Ordered lithium 450 mg oral tablet, extended release 1 tablet = 450 mg, By Mouth, 2 times a day, 0 Refills, Maintenance, 08/11/21 12:40:00 EDT, Partial fill upon patient request if the prescription is for a schedule II opioid drug. Start Date: 08/11/21 Status: Ordered lithium 450 mg oral tablet, extended release 0 Refills, Maintenance, 06/19/23 14:03:00 EDT, Partial fill upon patient request if the prescription is for a schedule II opioid drug. Start Date: 06/19/23 Status: Ordered loratadine 10 mg oral tablet 1, tablet, By Mouth, Daily, # 30 tablet, Refills 5, Tot. Refills 5, Maintenance, 03/15/23 9:56:00 EDT, Route to Pharmacy Electronically, [facility], 181, cm, 01/02/23 13:54:00 EST, Height Start Date: 03/15/23 Status: Ordered metFORMIN 1000 mg oral tablet 1 tablet, By Mouth, 2 times a day, # 60 tablet, 5 Refills, Maintenance, 05/30/23 11:36:00 EDT, [facility], 180.3, cm, 04/10/23 15:18:00 EDT, Height Start Date: 05/30/23 Status: Ordered Nebulizer/Compressor See Instructions, PRN, # [...] 15 mL, 5 Refills, 12/27/22 14:29:00 EST, [facility], 181, cm, 09... Start Date: 12/27/22 Status: Ordered PEN NEEDLES [id number] PEN NEEDLES [id number], See Instructions, # 200 each, Refills 5, Tot. Refills 5, Maintenance, USE DIRECTED UP TO QID TO INJECT INSULIN DX E11.65, 09/18/23 13:38:00 EST, Supply, 183, cm, 09/10/23 14:55:00 EDT, Height Start Date: 09/18/23 Status: Ordered tamsulosin 0.4 mg oral capsule See Instructions, TAKE 1 CAPSULE BY MOUTH EVERY DAY, # 30 capsule, Refills 5, Tot. Refills 5, Maintenance, 05/31/23 14:15:00 EDT, Instructions Replace Required Details, Route to Pharmacy Electronically, [facility], 180.3, cm, 04/10/23 15:18:... Start Date: 05/31/23 Status: Ordered tamsulosin 0.4 mg oral capsule Refills 0, Maintenance, 06/19/23 14:03:00 EDT, Partial fill upon patient request if the prescription is for a schedule II opioid drug. Start Date: 06/19/23 Status: Ordered terbinafine 250 mg oral tablet 1 tablet = 250 mg, By Mouth, Daily, # 30 tablet, 0 Refills, Maintenance, 06/27/23 10:53:00 EDT, Tablet, Partial fill upon patient request if the prescription is for a schedule II opioid drug. Start Date: 06/27/23 Status: Ordered Problem List Condition Confirmation Course [...] History Social History Type Response Smoking Status 10 or more cigarette s (1/2 pack or more)/day in last 30 days; Interested in cessation: No; Patient wants NRT during admission No entered on: 09/10/23 Sex Patient Care team information Care Team Personnel Name: Vandana Gibbs RN Position: [facility] RN Member Role: Primary Care Nurse Name: Ginger Pate MD Position: [facility] Physician - Primary Care Member Role: PCP Address: Address: [address] [place] [address] [address] [place] [address]- Care Team Related Persons Name: MARGARET RAMÍREZ Address: home [address] [place] [address]. [place] [address] Name: REINA RAMÍREZ Address: home [address] [place] [address] Name: LUZ DE LA CRUZ
--- OUTSIDE RECORDS SUMMARY | 2024-03-02 18:39 | XMS_ITS | Continuity of Care Document ---
Author Organization [facility] Adult Address [address] [place] [address]- Care Team Providers Care Cover Mat Machine Operator Name Role Phone Ginger Pate MD Primary Care Physician Encounter [facility] Date(s): 01/04/21 - 05/04/21 [facility] Adult [address] [place] [phone]- Attending Physician: Ginger Pate MD Allergies, Adverse Reactions, Alerts Substance Reaction Severity Status amoxicillin Active sulfa drugs Active Immunizations Given and Recorded Vaccine Date Status Refusal Reason influenza virus vaccine, inactivated 1 09/24/19 Gi mitch influenza virus vaccine, inactivated 2 08/06/17 Gi mitch influenza virus vaccine, inactivated 11/02/15 Give n pneumococcal 23-valent vaccine 03/01/15 Given tetanus/diphtheria/pertussis, acel(Tdap) 03/01/15 Given 1Result Comment: [facility] [id number] 2Result Comment: [facility] [id number] Medications albuterol 0.083% inhalation solution 3 mL = 2.5 mg, Inhalation, Every 6 hours, PRN for wheezing, DX COPD, # 60 each, 3 Refills, Maintenance, 10/21/20 16:57:00 EST, Solution, [facility], Partial fill upon patient request if theprescription is for a schedule II opioid drug., 181... Start Date: 10/21/20 Status: Ordered albuterol CFC free 90 mcg/inh inhalation aerosol 2, puffs, Inhalation, 4 times a day, PRN, # 18 Gm, Refills 11, Tot. Refills 11, Maintenance, 01/12/21 15:28:00 EST, Aerosol, Route to Pharmacy Electronically, NCPDP_[id number], [facility], 181, cm, 01/04/21 15:28:00 EST, Height [...] 11 Refills, Maintenance, 01/12/21 15:29:00 EST, Powder, [facility], Partial fill upon patient request if the prescription is for a schedule II opioid drug., 1 puffs Inhalation Daily,x30 days, 181, cm, 02... Start Date: 01/12/21 Stop Date: 01/07/22 Status: Ordered atenolol 50 mg oral tablet 25 mg, 0.5, tablet, By Mouth, Daily, # 15 tablet, Refills 1, Tot. Refills 1, Maintenance, 10/31/20 9:30:00 EST, Route to Pharmacy Electronically, [facility], Rx resent from 05/11/19., 181, cm, 10/21/20 11:47:00 EST, Height Start Date: 10/31/20 Status: Ordered atorvastatin 40 mg oral tablet 1 tablet = 40 mg, By Mouth, Daily, # 90 tablet, 1 Refills, Maintenance, 03/07/21 13:56:00 EDT, Tablet, [facility], 181, cm, 02/06/21 11:06:00 EDT, Height [...] Date: 12/09/14 Status: Ordered COMFORT EZ MIS [id number] COMFORT EZ MIS [id number], See Instructions, # 100 each, Refills 5, [...] 10/09/18 15:47:31 EST, Route to Pharmacy Electronically, [id number], DENNISE Ureñaamp; [facility] Start Date: [...] tablet, 0 Refills, Maintenance, 01/24/21 14:43:00 EDT, [facility], 181, cm, 01/04/21 15:28:00 EST, Height Start Date: 01/24/21 Status: Ordered ibuprofen 600 mg oral tablet 600 mg, 1, tablet, By Mouth, Every 6 hours, PRN, # 120 tablet, Refills 0, Tot. Refills 0, Maintenance, Pain, 04/04/21 16:38:00 EDT, Route to Pharmacy Electronically, [facility], 181, cm, 02/06/21 11:06:00 EDT, Height Start Date: 04/04/21 [...] 5 Refills, Soft Stop, 10/25/20 9:50:00 EST, [facility], 181, cm, 10/21/20 11:47:00 EST, Height Start Date: 10/25/20 Status: Ordered levothyroxine 150 mcg (0.15 mg) oral tablet 1 tablet = 150 mcg, By Mouth, Daily, # 30 tablet, 5 Refills, Maintenance, 11/08/20 11:44:00 EST, Tablet, [facility], 181, cm, 10/21/20 11:47:00 EST, Height [...] 12/28/20 15:39:00 EST, Route to Pharmacy Electronically, [facility], 181, cm, 10/21/20 11:47:00 EST, Height Start Date: 12/28/20 Status: Ordered metFORMIN 1000 mg oral tablet 1 tablet = 1,000 mg, By Mouth, 2 times a day, # 60 tablet, 5 Refills, Maintenance, 04/27/21 11:14:00 EDT, [facility], 181, cm, 02/06/21 11:06:00 EDT, Height Start Date: 04/27/21 Status: Ordered Nebulizer/Compressor See Instructions, PRN, # 1 each, Maintenance, Wheezing/Shortness of Breath, Use with albuterol solution q6h Dx: COPD (J44.9), 10/21/20 14:33:00 EST, Supply Start Date: 10/21/20 Status: Ordered Pen [place], 30 G x 8 mm BD Ultra [...] 05/09/20 8:55:00 EDT, Route to Pharmacy Electronically, [facility], 181, cm, 12/09/19 15:01:00 EST, Height [...]
--- OUTSIDE RECORDS SUMMARY | 2024-03-02 18:39 | XMS_ITS | Continuity of Care Document ---
Author Organization [facility] Adult Address [address] [place] [address]- Care Team Providers Care Editor House Organ Name Role Phone Rio ROBISON, Gingre Primary Care Physician Encounter [facility] Date(s): 09/18/23 - 10/18/23 [facility] Adult [address] [place] [phone]- Attending Physician: Ericka Orona Admitting Physician: Admtr, Ericka Referring Physician: Admtr, Ar8 Allergies, Adverse Reactions, [...] toxoids (Td) 02/03/13 Recorded 1Result Comment: [facility] [id number] 2Result Comment: [facility] [id number] Medications albuterol 0.083% inhalation solution 3 mL = 2.5 mg, Inhalation, Every 6 hours, PRN for wheezing, DX COPD, # 60 each, 3 Refills, Maintenance, 10/21/20 16:57:00 EST, Solution, [facility], Partial fill upon patient request if theprescription is for a schedule II opioid drug., 181... Start Date: 10/21/20 Status: Ordered albuterol CFC free 90 mcg/inh inhalation aerosol 2, puffs, Inhalation, 4 times a day, PRN, # 18 Gm, Refills 11, Tot. Refills 11, Maintenance, 01/02/23 14:27:00 EST, Aerosol, Route to Pharmacy Electronically, NCPDP_[id number], [facility], 181, cm, 01/02/23 13:54:00 EST, Height [...] 09/04/23 13:27:00 EDT, Route to Pharmacy Electronically, [facility], 183, cm, 06/27/23 10:36:00 EDT, Height Start Date: 09/04/23 Stop Date: 03/02/24 Status: Ordered atorvastatin 40 mg oral tablet 1 tablet = 40 mg, By Mouth, Daily, # 90 tablet, 2 Refills, Maintenance, 09/19/23 8:50:00 EST, [facility], 183, cm, 09/10/23 14:55:00 EDT, Height [...] Date: 06/27/23 Status: Ordered COMFORT EZ MIS [id number] COMFORT EZ MIS [id number], See Instructions, # 100 each, Refills 5, Tot. Refills 5, Maintenance, USE TO INJECT INSULIN BID DX E11.9, 02/22/21 11:54:00 EDT, Supply, 181, cm, 02/06/21 11:06:00 EDT, Height Start Date: 02/22/21 Status: Ordered COMFORT EZ MIS [id number] COMFORT EZ MIS [id number], See Instructions, # 100 each, 2 Refills, [...] Gm, 11 Refills, Maintenance, 07/23/22 11:21:00 EDT, [place], [facility], Partial fill upon patient request if the prescription is for a schedule II opioid drug., 1 sprays Nares, Both 2 times a day, 18... Start Date: 07/23/22 Status: Ordered fluticasone/umeclidinium/vilanterol 100 mcg-62.5 mcg-25 mcg/inh inhalation powder 1 puffs, Inhalation, Daily, # 1 each, 11 Refills, Maintenance, 01/02/23 14:26:00 EST, [facility], Partial fill upon patient request if [...] tablet, 1 Refills, Maintenance, 03/28/23 16:39:00 EDT, [facility], 181, cm, 01/02/23 13:54:00 EST, Height Start Date: 03/28/23 Status: Ordered Konsyl 100% oral powder for reconstitution = 7.5 Gm, By Mouth, 3 times a day, # 500 Gm, 0 Refills, Maintenance, 09/10/23 15:26:00 EDT, REC Powder, [facility], Partial fill upon patient request if the prescription is for a schedule II opioid drug., 183, cm, 09/10/23 14:55:00 EDT, Height Start Date: 09/10/23 Status: Ordered Levemir FlexTouch 100 units/mL subcutaneous solution See Instructions, INJECT 45 UNITS SUBCUTANEOUSLY EVERY MORNING AND INJECT 35 UNITS SUBCUTANEOUSLY EVERY NIGHT AT BEDTIME, # 30 mL, 3 Refills, Maintenance, 09/25/23 8:40:00 EST, [facility], 183, cm, 09/10/23 14:55:00 EDT, Height Start Date: 09/25/23 Status: Ordered levothyroxine 150 mcg (0.15 mg) oral tablet 1 tablet, By Mouth, Daily, # 90 tablet, 2 Refills, Maintenance, 02/27/23 11:54:00 EDT, [facility], 181, cm, 01/02/23 13:54:00 EST, Height [...] 03/15/23 9:56:00 EDT, Route to Pharmacy Electronically, [facility], 181, cm, 01/02/23 13:54:00 EST, Height Start Date: 03/15/23 Status: Ordered metFORMIN 1000 mg oral tablet 1 tablet, By Mouth, 2 times a day, # 60 tablet, 5 Refills, Maintenance, 05/30/23 11:36:00 EDT, [facility], 180.3, cm, 04/10/23 15:18:00 EDT, Height [...] 15 mL, 5 Refills, 12/27/22 14:29:00 EST, [facility], 181, cm, 09... Start Date: 12/27/22 Status: Ordered PEN NEEDLES [id number] PEN NEEDLES [id number], See Instructions, # 200 each, Refills 5, [...] Replace Required Details, Route to Pharmacy Electronically, [facility], 180.3, cm, 04/10/23 15:18:... Start Date: [...] during admission No entered on: 09/10/23 Sex Note * Event Display: [facility] Records Authored Date: EKG study * Event Display: EKG Authored Date: * Event Display: EKG Authored Date: Laboratory * Event Display: Non [facility] Lab Results Authored Date: * Event Display: Non [facility] Lab Results Authored Date: * Event Display: Non [facility] Lab Results Authored Date: XR Chest Views * Event Display: X-Ray Chest Authored Date: Radiology * Event Display: X-Ray Abdomen, Non- BH Authored Date: * Event Display: X-Ray Chest, Non- BH Authored Date: CT Chest * Event Display: CT Scan Chest Authored Date: Patient Care team information Care Team Personnel Name: Vandana Gibbs RN Position: [facility] RN Member Role: Primary Care Nurse Name: Ginger Pate MD Position: [facility] Physician - Primary Care Member Role: PCP Address: Address: [address] [place] [phone]- Care Team Related Persons Name: MARGARET RAMÍREZ Address: home [address] [place] [address] Name: REINA RAMÍREZ Address: home [address], [place] Name: LUZ DE LA CRUZ
--- OUTSIDE RECORDS SUMMARY | 2024-03-02 18:39 | XMS_ITS | Continuity of Care Document ---
Author Organization [facility] Adult Address [address] [place] [address]- Care Team Providers Care Quarter Supervisor Name Role Phone Rio ROBISON, Ginger Primary Care Physician Encounter [facility] Date(s): 10/21/20 - 11/20/20 [facility] [address] [place] [address]- Allergies, Adverse Reactions, Alerts Substance Reaction Severity Status amoxicillin Active sulfa drugs Active Immunizations Given and Recorded Vaccine Date Status Refusal Reason influenza virus vaccine, inactivated 1 09/24/19 Gi mitch influenza virus vaccine, inactivated 2 08/06/17 Gi mitch influenza virus vaccine, inactivated 11/02/15 Give n pneumococcal 23-valent vaccine 03/01/15 Given tetanus/diphtheria/pertussis, acel(Tdap) 03/01/15 Given 1Result Comment: [facility] [id number] 2Result Comment: [facility] [id number] Medications Advair Diskus 250 mcg-50 mcg inhalation powder 1, puffs, Inhalation, Every 12 hours, rinse mouth and throat after use, # 28 each, Refills 6, Tot. Refills 6, Maintenance, 10/21/20 13:08:00 EST, Route to Pharmacy Electronically, NCPDP_[id number], [facility], please hold for when symbicort... Start Date: 10/21/20 Stop Date: 05/19/21 Status: Ordered albuterol 0.083% inhalation solution 3 mL = 2.5 mg, Inhalation, Every 6 hours, PRN for wheezing, DX COPD, # 60 each, 3 Refills, Maintenance, 10/21/20 16:57:00 EST, Solution, [facility], Partial fill upon patient request if theprescription is for a schedule II opioid drug., 181... Start Date: 10/21/20 Status: Ordered Alcohol Pads See Instructions, # [...] 10/31/20 9:30:00 EST, Route to Pharmacy Electronically, [facility], Rx resent from 05/11/19., 181, cm, 10/21/20 11:47:00 EST, Height Start Date: 10/31/20 Status: Ordered atorvastatin 40 mg oral tablet 1 tablet = 40 mg, By Mouth, Daily, # 90 tablet, 1 Refills, Maintenance, 07/26/20 12:07:00 EDT, Tablet, [facility], 181, cm, 12/09/19 15:01:00 EST, Height, [...] 10/09/18 15:47:31 EST, Route to Pharmacy Electronically, [id number], [facility]; [facility] Start Date: [...] day, # 270 tablet, 0 Refills, Maintenance, 10/24/20 10:05:00 EST, [facility], 181, cm, 10/21/20 11:47:00 EST, Height Start Date: 10/24/20 Status: Ordered ibuprofen 600 mg oral tablet 600 mg, 1, tablet, By Mouth, Every 6 hours, PRN, # 120 tablet, Refills 0, Tot. Refills 0, Maintenance, Pain, 01/08/20 15:02:00 EST, Route to Pharmacy Electronically, [facility], 181, cm, 12/09/19 15:01:00 EST, Height, 100.6, kg, 04/07/18 20:... Start Date: 01/08/20 Status: Ordered Incruse Ellipta 62.5 mcg/inh inhalation powder 1 each, Inhalation, Every 24 hours, doses should be taken at least 24 hours apart, # 1 each, 11 Refills, Maintenance, 10/25/20 15:07:00 EST, Powder, [facility], Partial fill upon patient request if the prescription is for a schedule II opioi... Start Date: 10/25/20 Stop Date: 10/20/21 Status: Ordered insulin lispro 100 u/ml subcutaneous [...] 5 Refills, Soft Stop, 10/25/20 9:50:00 EST, [facility], 181, cm, 10/21/20 11:47:00 EST, Height Start Date: 10/25/20 Status: Ordered levothyroxine 150 mcg (0.15 mg) oral tablet 1 tablet = 150 mcg, By Mouth, Daily, # 30 tablet, 5 Refills, Maintenance, 11/08/20 11:44:00 EST, Tablet, [facility], 181, cm, 10/21/20 11:47:00 EST, Height [...] 05/24/20 13:38:00 EDT, Route to Pharmacy Electronically, [facility], 181, cm, 12/09/19 15:01:00 EST, Height, Dry Weight Start Date: 05/24/20 Status: Ordered metFORMIN 1000 mg oral tablet 1 tablet = 1,000 mg, By Mouth, 2 times a day, # 60 tablet, 5 Refills, Maintenance, 11/01/20 9:36:00EST, [facility], 181, cm, 10/21/20 11:47:00 EST, Height Start Date: 11/01/20 Status: Ordered Nebulizer/Compressor See Instructions, PRN, # 1 each, Maintenance, Wheezing/Shortness of Breath, Use with albuterol solution q6h Dx: COPD (J44.9), 10/21/20 14:33:00 EST, Supply Start Date: 10/21/20 Status: Ordered nicotine 21 mg/24 hr transdermal film, extended release 1 patch, Topically, Daily, for 6 week(s), # 42 patch, 0 Refills, Acute 12/13/20 13:20:00 EST, 11/01/20 13:20:00 EST, Patch, [facility], Partial fill upon patient request if the prescriptionis for a schedule II opioid drug., 1 patch Topicall... Start Date: 11/01/20 Stop Date: 12/13/20 Status: Ordered Pen [place], 30 G x 8 mm BD Ultra Fine II See Instructions, # 100 each, Refills 3, Tot. Refills 3, Maintenance, for use w levemir flex pen use as directed for Type 1 Diabetes Mellitus, 06/28/20 10:25:00 EDT, Compound, 181, cm, 12/09/19 15:01:00 EST, Height Start Date: 06/28/20 Stop Date: 10/26/20 Status: Ordered ProAir HFA 90 mcg/inh inhalation aerosol with adapter 1, puffs, Inhalation, Every 6 hours, PRN, for 30 days, # 18 Gm, Refills 5, Tot. Refills 5, Hard Stop 03/25/21 12:55:00 EDT, 09/26/20 12:55:00 EST, Aerosol, Route to Pharmacy Electronically, NCPDP_[id number], [facility], 181, , 08/03/20 9:1... Start Date: 09/26/20 Stop Date: 03/25/21 Status: Ordered ProAir HFA 90 mcg/inh inhalation aerosol with adapter 2, puffs, Inhalation, Every 6 hours, PRN, use with spacer chamber, # 1 each, Refills 5, Tot. Refills 5, Maintenance, 03/25/21 12:55:00 EDT, Aerosol, Route to Pharmacy Electronically, NCPDP_[id number], [facility], 181, cm, 10/21/20 11:47:00 E... Start Date: 03/25/21 Stop Date: 09/21/21 Status: Ordered Prolixin DECANOATE Inj = 25 mg, Intramuscular, Every 21 days, 0 Refills, Maintenance, 01/19/19 14:36:12 EDT Start Date: 01/19/19 Status: Ordered tamsulosin 0.4 mg oral capsule 1, capsule, By Mouth, Daily, # 30 capsule, Refills 11, Tot. Refills 0, Maintenance, 05/09/20 8:55:00 EDT, Route to Pharmacy Electronically, [facility], 181, , 12/09/19 15:01:00 EST, Height Start Date: 05/09/20 Status: Ordered Viagra 50 mg oral tablet 1 tablet = 50 mg, By Mouth, Daily, PRN as needed for erectile dysfunction, 1 hour before sexual activity, # 5 tablet, 0 Refills, Maintenance, 12/09/19 15:44:00 EST, Tablet, [facility], 181,cm, 12/09/19 15:01:00 EST, Height, 100.6, [...] History Social History Type Response Smoking Status Former smoker, quit more than 30 days ago entered on: 10/21/20 Sex
--- OUTSIDE RECORDS SUMMARY | 2024-03-02 18:39 | XMS_ITS | Continuity of Care Document ---
Author Organization [facility] Address [address] [place] [address]- Care Team Providers Care Physician'S Aide Name Role Phone Ginger Pate MD Primary Care Physician Encounter [facility] Date(s): 11/23/21 - 03/23/22 [facility] [address] [place] [id number]- Attending Physician: Ginger Pate MD Allergies, Adverse [...] 03/01/15 Given 1Result Comment: [facility] [id number] 2Result Comment: [facility] [id number] Medications albuterol 0.083% inhalation solution 3 mL = 2.5 mg, Inhalation, Every 6 hours, PRN for wheezing, DX COPD, # 60 each, 3 Refills, Maintenance, 10/21/20 16:57:00 EST, Solution, [facility], Partial fill upon patient request if theprescription is for a schedule II opioid drug., 181... Start Date: 10/21/20 Status: Ordered albuterol CFC free 90 mcg/inh inhalation aerosol 2, puffs, Inhalation, 4 times a day, PRN, # 18 Gm, Refills 11, Tot. Refills 11, Maintenance, 01/12/21 15:28:00 EST, Aerosol, Route to Pharmacy Electronically, NCPDP_[id number], [facility], 181, cm, 01/04/21 15:28:00 EST, Height Start Date: 01/12/21 Stop Date: 01/07/22 Status: Ordered albuterol CFC free 90 mcg/inh inhalation aerosol 2, puffs, Inhalation, 4 times a day, PRN, # 18 Gm, Refills 11, Tot. Refills 11, Maintenance, 01/15/22 11:28:00 EST, Aerosol, Route to Pharmacy Electronically, COPDP_[id number], [facility], 181, cm, 01/15/22 11:07:00 EST, Height [...] Daily, # 1 each, 11 Refills, Maintenance, 01/07/22 15:29:00 EST, Powder, [facility], Partial fill upon patient request if the prescription is for a schedule II opioid drug., 1 puffs Inhalation Daily,x30 days, 181, cm, 09... Start Date: 01/07/22 Stop Date: 01/02/23 Status: Ordered Atarax Tablet = 25 mg, By Mouth, 2 times a day, 0 Refills, Maintenance, 08/11/21 12:43:00 EDT, Partial fill upon patient request if the prescription is for a schedule II opioid drug. Start Date: 08/11/21 Status: Ordered atenolol 50 mg oral tablet See Instructions, TAKE 1/2 OF A TABLET BY MOUTH DAILY, # 15 tablet, Refills 5, Instructions ReplaceRequired Details, Route to Pharmacy Electronically, [facility], 181, cm, 08/09/21 14:56:00 EDT, Height Start Date: 01/02/22 Status: Ordered atorvastatin 40 mg oral tablet 1 tablet, By Mouth, Daily, # 90 tablet, 1 Refills, [facility], 181, cm, 08/09/21 14:56:00EDT, Height Start Date: 10/11/21 Status: Ordered benztropine 1 mg oral tablet [...] Date: 08/11/21 Status: Ordered COMFORT EZ MIS [id number] COMFORT EZ MIS [id number], See Instructions, # 100 each, Refills 5, Tot. Refills 5, Maintenance, USE TO INJECT INSULIN BID DX E11.9, 02/22/21 11:54:00 EDT, Supply, 181, cm, 02/06/21 11:06:00 EDT, Height Start Date: 02/22/21 Status: Ordered COMFORT EZ MIS [id number] COMFORT EZ MIS [id number], See Instructions, # 100 each, 2 Refills, [...] 10/09/18 15:47:31 EST, Route to Pharmacy Electronically, [id number], [facility]; [facility] Start Date: 10/09/18 Status: Ordered fluPHENAZine 2.5 mg oral tablet 1 tablet = 2.5 mg, By Mouth, Daily in AM, # 30 tablet, 0 Refills, Maintenance, 08/11/21 12:40:00 EDT, Tablet, Partial fill upon patient request if the prescription is for a schedule II opioid drug. Start Date: 08/11/21 Status: Ordered Freestyle Lite Lancets See Instructions, [...] day, # 270 tablet, 0 Refills, Maintenance, 02/01/22 7:20:00 EDT, [facility], 181, cm, 01/15/22 11:07:00 EST, Height Start Date: 02/01/22 Status: Ordered ibuprofen 600 mg oral tablet 600 mg, 1, tablet, By Mouth, Every 6 hours, PRN, # 120 tablet, Refills 0, Tot. Refills 0, Maintenance, Pain, 04/04/21 16:38:00 EDT, Route to Pharmacy Electronically, [facility], 181, cm, 02/06/21 11:06:00 EDT, Height [...] AT BEDTIME, # 30 mL, 4 Refills, [facility], 181, cm, 08/09/21 14:56:00 EDT, Height Start Date: 11/08/21 Status: Ordered levothyroxine 150 mcg (0.15 mg) oral tablet 1 tablet, By Mouth, Daily, # 30 tablet, 5 Refills, [facility], 181, cm, 08/09/21 14:56:00EDT, Height Start Date: 01/02/22 Status: Ordered lithium 300 mg oral tablet [...] tablet, Refills 5, Route to Pharmacy Electronically, [facility], 181, cm, 01/15/22 11:07:00 EST, Height Start Date: 02/01/22 Status: Ordered metFORMIN 1000 mg oral tablet 1 tablet, By Mouth, 2 times a day, # 60 tablet, 5 Refills, [facility], 181, cm, 08/09/21 14:56:00 EDT, Height Start Date: 11/10/21 Status: Ordered Nebulizer/Compressor See Instructions, PRN, # 1 each, Maintenance, Wheezing/Shortness of Breath, Use with albuterol solution q6h Dx: COPD (J44.9), 10/21/20 14:33:00 EST, Supply Start Date: 10/21/20 Status: Ordered NovoLOG FlexPen 100 units/mL injectable solution See Instructions, INJECT SUBCUTANEOUSLY THREE TIMES DAILY WITH MEALS PER SCALE 110-150=0UNITS; 151-200=2UN; 201-250=6UN; 251-300=8UN; 301-350=10UNITS; >350=12UN AND CALL PCP, # 15 mL, 2 Refills, 12/20/21 13:42:00 EST, [facility], 181, cm, 09... Start Date: 12/20/21 Status: Ordered Pen [place], 30 G x 8 mm BD Ultra [...] By Mouth, Daily, # 30 capsule, Refills 10, Tot. Refills 0, Maintenance, 06/08/21 16:19:00 EDT, Route to Pharmacy Electronically, [facility], 181, cm, 02/06/21 11:06:00 EDT, Height Start Date: 06/08/21 Status: Ordered Vistaril pamoate 25 mg oral [...]
--- OUTSIDE RECORDS SUMMARY | 2024-03-02 18:39 | XMS_ITS | Continuity of Care Document ---
Author Organization [facility] Address [address] [place] [address]- Care Team Providers Care Ham Stripper Name Role Phone Rio ROBISON, Ginger Primary Care Physician Encounter [facility] Date(s): 05/31/20 - 06/30/20 [facility] [address] [place] [address]- [facility] Allergies, Adverse Reactions, Alerts Substance Reaction Severity Status amoxicillin Active sulfa drugs Active Immunizations Given and Recorded Vaccine Date Status Refusal Reason influenza virus vaccine, inactivated 1 09/24/19 Gi mitch influenza virus vaccine, inactivated 2 08/06/17 Gi mitch influenza virus vaccine, inactivated 11/02/15 Give n pneumococcal 23-valent vaccine 03/01/15 Given tetanus/diphtheria/pertussis, acel(Tdap) 03/01/15 Given 1Result Comment: [facility] [id number] 2Result Comment: [facility][note 3] [id number] Medications Advair Diskus 250 mcg-50 mcg inhalation powder 1, puffs, Inhalation, Every 12 hours, # 28 each, Refills 2, Tot. Refills 2, Maintenance, 04/10/18 16:19:35 EDT, Route to Pharmacy Electronically, [id number], [facility], please hold [...] 04/22/20 9:58:00 EDT, Route to Pharmacy Electronically, [facility], Rx resent from 05/11/19., 181, cm, 12/09/19 15:01:00 EST, Height, Dry Weight Start Date: 04/22/20 Status: Ordered atorvastatin 40 mg oral tablet 1 tablet = 40 mg, By Mouth, Daily, # 90 tablet, 1 Refills, Maintenance, 01/28/20 12:12:00 EDT, Tablet, [facility], 181, cm, 12/09/19 15:01:00 EST, Height, [...] 10/09/18 15:47:31 EST, Route to Pharmacy Electronically, [id number], [facility]; [facility] Start Date: [...] 3 times a day, # 90 tablet, 0 Refills, Maintenance, 06/28/20 15:29:00 EDT, [facility], 181, cm, 12/09/19 15:01:00 EST, Height Start Date: 06/28/20 Status: Ordered glipiZIDE 10 mg oral tablet, extended release 1 tablet = 10 mg, By Mouth, 2 times a day, # 60 tablet, 5 Refills, Soft Stop, 05/31/20 13:04:00 EDT, [facility], 181, cm, 12/09/19 15:01:00 EST, Height Start Date: 05/31/20 Stop Date: 11/27/20 Status: Ordered ibuprofen 600 mg oral tablet 600 mg, 1, tablet, By Mouth, Every 6 hours, PRN, # 120 tablet, Refills 0, Tot. Refills 0, Maintenance, Pain, 01/08/20 15:02:00 EST, Route to Pharmacy Electronically, [facility], 181, cm, 12/09/19 15:01:00 EST, Height, [...] 2 Refills, Soft Stop, 05/31/20 12:48:00 EDT, [facility], 181, cm, 12/09/19 15:01:00 EST, Height, Dry Weight Start Date: 05/31/20 Status: Ordered levothyroxine 150 mcg (0.15 mg) oral tablet 1 tablet = 150 mcg, By Mouth, Daily, # 30 tablet, 5 Refills, Maintenance, 04/04/20 20:54:00 EDT, Tablet, [facility], 181, cm, 12/09/19 15:01:00 EST, Height, [...] 05/24/20 13:38:00 EDT, Route to Pharmacy Electronically, [facility], 181, cm, 12/09/19 15:01:00 EST, Height, Dry Weight Start Date: 05/24/20 Status: Ordered metFORMIN 1000 mg oral tablet 1 tablet = 1,000 mg, By Mouth, 2 times a day, # 60 tablet, 5 Refills, Maintenance, 04/29/20 12:49:00 EDT, [facility], 181, cm, 12/09/19 15:01:00 EST, Height, Dry Weight Start Date: 04/29/20 Status: Ordered Pen [place], 30 G x 8 mm BD Ultra [...] 07/17/1813:34:55 EDT, Aerosol, Route to Pharmacy Electronically, [id number], [facility] Start Date: 07/17/18 Stop Date: 08/16/18 Status: Ordered Prolixin DECANOATE Inj = 25 mg, Intramuscular, Every 21 days, 0 Refills, Maintenance, 01/19/19 14:36:12 EDT Start Date: 01/19/19 Status: Ordered tamsulosin 0.4 mg oral capsule 1, capsule, By Mouth, Daily, # 30 capsule, Refills 11, Tot. Refills 0, Maintenance, 05/09/20 8:55:00 EDT, Route to Pharmacy Electronically, [facility], 181, cm, 12/09/19 15:01:00 EST, Height Start Date: 05/09/20 Status: Ordered Viagra 50 mg oral tablet 1 tablet = 50 mg, By Mouth, Daily, PRN as needed for erectile dysfunction, 1 hour before sexual activity, # 5 tablet, 0 Refills, Maintenance, 12/09/19 15:44:00 EST, Tablet, [facility], 181,cm, 12/09/19 15:01:00 EST, Height, 100.6, [...]
--- OUTSIDE RECORDS SUMMARY | 2024-03-02 18:39 | XMS_ITS | Continuity of Care Document ---
Author Organization [facility] Address [address] [place] [address]- Care Team Providers Care Machine Chocolate Molder Name Role Phone Rio ROBISON, Ginger Primary Care Physician Encounter [facility] Date(s): 02/08/22 - 03/10/22 [facility] [address] [place] [address]- Allergies, Adverse Reactions, Alerts Substance Reaction Severity Status amoxicillin Active sulfa drugs Active Immunizations Given and Recorded Vaccine Date Status Refusal Reason influenza virus vaccine, inactivated 1 09/24/19 Gi mitch influenza virus vaccine, inactivated 2 08/06/17 Gi mitch influenza virus vaccine, inactivated 11/02/15 Give n pneumococcal 23-valent vaccine 03/01/15 Given tetanus/diphtheria/pertussis, acel(Tdap) 03/01/15 Given 1Result Comment: [facility] [id number] 2Result Comment: [facility] [phone] Medications albuterol 0.083% inhalation solution 3 mL = 2.5 mg, Inhalation, Every 6 hours, PRN for wheezing, DX COPD, # 60 each, 3 Refills, Maintenance, 10/21/20 16:57:00 EST, Solution, [facility], Partial fill upon patient request if theprescription is for a schedule II opioid drug., 181... Start Date: 10/21/20 Status: Ordered albuterol CFC free 90 mcg/inh inhalation aerosol 2, puffs, Inhalation, 4 times a day, PRN, # 18 Gm, Refills 11, Tot. Refills 11, Maintenance, 01/12/21 15:28:00 EST, Aerosol, Route to Pharmacy Electronically, NCPDP_[id number], [facility], 181, cm, 01/04/21 15:28:00 EST, Height Start Date: 01/12/21 Stop Date: 01/07/22 Status: Ordered albuterol CFC free 90 mcg/inh inhalation aerosol 2, puffs, Inhalation, 4 times a day, PRN, # 18 Gm, Refills 11, Tot. Refills 11, Maintenance, 01/15/22 11:28:00 EST, Aerosol, Route to Pharmacy Electronically, NCPDP_[id number], [facility], 181, cm, 01/15/22 11:07:00 EST, Height [...] 11 Refills, Maintenance, 01/07/22 15:29:00 EST, Powder, [facility], Partial fill upon patient request if [...] Instructions ReplaceRequired Details, Route to Pharmacy Electronically, [facility], 181, cm, 08/09/21 14:56:00 EDT, Height Start Date: 01/02/22 Status: Ordered atorvastatin 40 mg oral tablet 1 tablet, By Mouth, Daily, # 90 tablet, 1 Refills, [facility], 181, cm, 08/09/21 14:56:00EDT, Height Start [...] Date: 08/11/21 Status: Ordered COMFORT EZ MIS [id number] COMFORT EZ MIS [id number], See Instructions, # 100 each, Refills 5, Tot. Refills 5, Maintenance, USE TO INJECT INSULIN BID DX E11.9, 02/22/21 11:54:00 EDT, Supply, 181, cm, 02/06/21 11:06:00 EDT, Height Start Date: 02/22/21 Status: Ordered COMFORT EZ MIS [id number] COMFORT EZ MIS [id number], See Instructions, # 100 each, 2 Refills, [...] 10/09/18 15:47:31 EST, Route to Pharmacy Electronically, [id number], [facility]; [facility] Start Date: [...] tablet, 0 Refills, Maintenance, 02/01/22 7:20:00 EDT, [facility], 181, cm, 01/15/22 11:07:00 EST, Height Start Date: 02/01/22 Status: Ordered ibuprofen 600 mg oral tablet 600 mg, 1, tablet, By Mouth, Every 6 hours, PRN, # 120 tablet, Refills 0, Tot. Refills 0, Maintenance, Pain, 04/04/21 16:38:00 EDT, Route to Pharmacy Electronically, [facility], 181, cm, 02/06/21 11:06:00 EDT, Height [...] AT BEDTIME, # 30 mL, 4 Refills, [facility], 181, cm, 08/09/21 14:56:00 EDT, Height Start Date: 11/08/21 Status: Ordered levothyroxine 150 mcg (0.15 mg) oral tablet 1 tablet, By Mouth, Daily, # 30 tablet, 5 Refills, [facility], 181, cm, 08/09/21 14:56:00EDT, Height Start [...] tablet, Refills 5, Route to Pharmacy Electronically, [facility], 181, cm, 01/15/22 11:07:00 EST, Height Start Date: 02/01/22 Status: Ordered metFORMIN 1000 mg oral tablet 1 tablet, By Mouth, 2 times a day, # 60 tablet, 5 Refills, [facility], 181, cm, 08/09/21 14:56:00 EDT, Height [...] 15 mL, 2 Refills, 12/20/21 13:42:00 EST, [facility], 181, cm, 09... Start Date: 12/20/21 Status: Ordered Pen [place], 30 G x 8 mm BD Ultra [...] 06/08/21 16:19:00 EDT, Route to Pharmacy Electronically, [facility], 181, cm, 02/06/21 11:06:00 EDT, Height [...]
--- OUTSIDE RECORDS SUMMARY | 2024-03-02 18:39 | XMS_ITS | Continuity of Care Document ---
Author Organization [facility] Address [address] [place] [id number]- Care Team Providers Care Cone Tender Name Role Phone Ginger Pate MD Primary Care Physician Encounter [facility] Date(s): 12/19/23 - 01/18/24 [facility] [address] [place] [id number]- [place] Allergies, Adverse Reactions, Alerts Substance Reaction Severity [...] tetanus-diphtheria toxoids (Td) 02/03/13 Recorded 1Result Comment: [facility] 74849-396-60 2Result Comment: [facility] [id number] Medications albuterol 0.083% inhalation solution 3 mL = 2.5 mg, Inhalation, Every 6 hours, PRN for wheezing, DX COPD, # 60 each, 3 Refills, Maintenance, 10/21/20 16:57:00 EST, Solution, [facility], Partial fill upon patient request if theprescription is for a schedule II opioid drug., 181... Start Date: 10/21/20 Status: Ordered albuterol CFC free 90 mcg/inh inhalation aerosol 2, puffs, Inhalation, 4 times a day, PRN, # 1 each, Refills , Tot. Refills 11, Maintenance, 12/30/23 15:02:00 EST, Aerosol, Route to Pharmacy Electronically, [id number]_[id number], [facility],183, cm, 12/30/23 12:59:00 EST, Height Start Date: 12/30/23 Stop Date: 12/24/24 Status: Ordered Alcohol Pads See Instructions, # [...] 09/04/23 13:27:00 EDT, Route to Pharmacy Electronically, [facility], 183, cm, 06/27/23 10:36:00 EDT, Height Start Date: 09/04/23 Stop Date: 03/02/24 Status: Ordered atorvastatin 40 mg oral tablet 1 tablet = 40 mg, By Mouth, Daily, # 90 tablet, 2 Refills, Maintenance, 09/19/23 8:50:00 EST, [facility], 183, cm, 09/10/23 14:55:00 EDT, Height Start Date: 09/19/23 Status: Ordered Basaglar KwikPen 100 units/mL subcutaneous solution See Instructions, 45 units Subcutaneous Injection in morning and 35 units at bedtime Replacing Levemir not covered by insurance, # 15 mL, 5 Refills, Maintenance, 12/31/23 11:25:00 EST, Solution, [facility], Replacing Levemir not covered b... Start Date: 12/31/23 Status: Ordered BD PEN NEEDL MIS 31GX5/16 [...] Date: 06/27/23 Status: Ordered COMFORT EZ MIS [id number] COMFORT EZ MIS [id number], See Instructions, # 100 each, Refills 5, Tot. Refills 5, Maintenance, USE TO INJECT INSULIN BID DX E11.9, 02/22/21 11:54:00 EDT, Supply, 181, cm, 02/06/21 11:06:00 EDT, Height Start Date: 02/22/21 Status: Ordered COMFORT EZ MIS [id number] COMFORT EZ MIS [id number], See Instructions, # 100 each, 2 Refills, [...] Gm, 11 Refills, Maintenance, 07/23/22 11:21:00 EDT, [place], [facility], Partial fill upon patient request if [...] TEST GLUCOSE TID; 8AM,5PM, 8PM DX E10.9, 11/18/23 16:35:00 EST, Compound, 183, cm, 09/10/23 14:55:00 EDT, Height Start Date: 11/18/23 Status: Ordered FREESTYLE VICENTE LITE FREESTYLE VICENTE LITE, See Instructions, # 100 each, 5 Refills, Maintenance, USE THREE TIMES DAILY AT 8 AM, 5 PM AND 8 PM, 01/02/23 16:53:00 EST, 181, cm, 01/02/23 13:54:00 EST, Height Start Date: 01/02/23 Status: Ordered gabapentin 600 mg oral tablet 1 tablet, By Mouth, 3 times a day, # 270 tablet, 1 Refills, Maintenance, 11/01/23 12:30:00 EST, [facility], 183, cm, 09/10/23 14:55:00 EDT, Height Start Date: 11/01/23 Status: Ordered Konsyl 100% oral powder for reconstitution = 7.5 Gm, By Mouth, 3 times a day, # 500 Gm, 0 Refills, Maintenance, 09/10/23 15:26:00 EDT, REC Powder, [facility], Partial fill upon patient request if the prescription is for a schedule II opioid drug., 183, cm, 09/10/23 14:55:00 EDT, Height Start Date: 09/10/23 Status: Ordered levothyroxine 150 mcg (0.15 mg) oral tablet 1 tablet, By Mouth, Daily, # 90 tablet, 2 Refills, Maintenance, 02/27/23 11:54:00 EDT, [facility], 181, cm, 01/02/23 13:54:00 EST, Height [...] tablet, Refills 5, Tot. Refills 5, Maintenance, 12/30/23 9:18:00 EST, Route to Pharmacy Electronically, [facility], 183, cm, 09/10/23 14:55:00 EDT, Height Start Date: 12/30/23 Status: Ordered metFORMIN 1000 mg oral tablet 1 tablet, By Mouth, 2 times a day, # 60 tablet, 5 Refills, Maintenance, 05/30/23 11:36:00 EDT, [facility], 180.3, cm, 04/10/23 15:18:00 EDT, Height [...] 15 mL, 5 Refills, 12/27/22 14:29:00 EST, [facility], 181, cm, 09... Start Date: 12/27/22 Status: Ordered PEG-3350 with Electrolytes Lemon (Eqv-GoLYTELY) oral powder for reconstitution See Instructions, Per GI office instructions, # 4,000 mL, 0 Refills, Maintenance, 12/19/23 10:42:00EST, [facility], Partial fill upon patient request if the prescription is for a schedule II opioid drug., Per GI office instructions, 183, cm... Start Date: 12/19/23 Status: Ordered PEN NEEDLES [id number] PEN NEEDLES [id number], See Instructions, # 200 each, Refills 5, Tot. Refills 5, Maintenance, USE DIRECTED UP TO QID TO INJECT INSULIN DX E11.65, 12/16/23 11:52:00 EST, Supply, 183, cm, 09/10/23 14:55:00 EDT, Height Start Date: 12/16/23 Status: Ordered tamsulosin 0.4 mg oral capsule See Instructions, TAKE 1 CAPSULE BY MOUTH EVERY DAY, # 30 capsule, Refills 5, Tot. Refills 5, Maintenance, 12/30/23 9:18:00 EST, Instructions Replace Required Details, Route to Pharmacy Electronically, [facility], 183, cm, 09/10/23 14:55:00... Start Date: 12/30/23 Status: Ordered tamsulosin 0.4 mg oral capsule [...] opioid drug. Start Date: 06/27/23 Status: Ordered Trelegy Ellipta inhalation powder 1 inhalation, Inhalation, Daily, # 60 each, 11 Refills, Maintenance, 01/09/24 12:05:00 EST, [facility], 183, cm, 12/30/23 12:59:00 EST, Height Start Date: 01/09/24 Status: Ordered Problem List Condition Confirmation Course [...] Team Personnel Name: Vandana Gibbs RN Position: [facility] RN Member Role: Primary Care Nurse Name: Ginger Pate MD Position: [facility] Physician - Primary Care Member Role: PCP Address: Address: [address] [place] [address]- Care Team Related Persons Name: MARGARET RAMÍREZ Address: home [address] [place] [address]. [place] [address] Name: REINA RAMÍREZ Address: home [address] [place] [address] Name: LUZ DE LA CRUZ
--- OUTSIDE RECORDS SUMMARY | 2024-03-02 18:39 | XMS_ITS | Continuity of Care Document ---
Author Organization [facility] Adult Address [address] [place] [address]- Care Team Providers Care Advanced Practice Provider Name Role Phone Rio ROBISON, Ginger Primary Care Physician Encounter [facility] Date(s): 10/10/22 - 11/09/22 [facility] [address] [place] [id number]- Allergies, Adverse Reactions, Alerts Substance Reaction Severity [...] tetanus-diphtheria toxoids (Td) 02/03/13 Recorded 1Result Comment: [facility] [id number] 2Result Comment: [facility] [phone] Medications albuterol 0.083% inhalation solution 3 mL = 2.5 mg, Inhalation, Every 6 hours, PRN for wheezing, DX COPD, # 60 each, 3 Refills, Maintenance, 10/21/20 16:57:00 EST, Solution, [facility], Partial fill upon patient request if theprescription is for a schedule II opioid drug., 181... Start Date: 10/21/20 Status: Ordered albuterol CFC free 90 mcg/inh inhalation aerosol 2, puffs, Inhalation, 4 times a day, PRN, # 18 Gm, Refills 11, Tot. Refills 11, Maintenance, 01/12/21 15:28:00 EST, Aerosol, Route to Pharmacy Electronically, NCPDP_[id number], [facility], 181, cm, 01/04/21 15:28:00 EST, Height Start Date: 01/12/21 Stop Date: 01/07/22 Status: Ordered albuterol CFC free 90 mcg/inh inhalation aerosol 2, puffs, Inhalation, 4 times a day, PRN, # 18 Gm, Refills 11, Tot. Refills 11, Maintenance, 01/15/22 11:28:00 EST, Aerosol, Route to Pharmacy Electronically, NCPDP_[id number], [facility], 181, cm, 01/15/22 11:07:00 EST, Height [...] each, 10 Refills, Maintenance, 08/01/22 15:16:00 EDT, [facility], 30, INHALE 1 PUFF BY MOUTH [...] EVERY DAY, # 15 tablet, Refills 2, Maintenance, 10/10/22 14:36:00 EST, Instructions Replace Required Details, Route to Pharmacy Electronically, [facility], 181, cm, 07/23/22 10:45:00 EDT, Height Start Date: 10/10/22 Status: Ordered atorvastatin 40 mg oral tablet 1 tablet, By Mouth, Daily, # 90 tablet, 1 Refills, 11/07/22 14:10:00 EST, [facility], 181, cm, 07/23/22 10:45:00 EDT, Height Start Date: 11/07/22 Status: Ordered BD PEN NEEDL MIS 31GX5/16 [...] Date: 08/11/21 Status: Ordered COMFORT EZ MIS [id number] COMFORT EZ MIS [id number], See Instructions, # 100 each, Refills 5, Tot. Refills 5, Maintenance, USE TO INJECT INSULIN BID DX E11.9, 02/22/21 11:54:00 EDT, Supply, 181, cm, 02/06/21 11:06:00 EDT, Height Start Date: 02/22/21 Status: Ordered COMFORT EZ MIS [id number] COMFORT EZ MIS [id number], See Instructions, # 100 each, 2 Refills, USE DIRECTED WITH INSULIN PENS,181, cm, 08/09/21 14:56:00 EDT, Height Start Date: 10/31/21 Status: Ordered COMFRT TOUCH PAD ALC PREP COMFRT TOUCH PAD ALC PREP, See Instructions, # 200 each, 4 Refills, Maintenance, USE WHEN TESTING GLUCOSE AND INJECTING INSULIN, 10/02/22 8:56:00 EST, 181, cm, 07/23/22 10:45:00 EDT, Height Start Date: 10/02/22 Status: Ordered Depakote ER 250 mg oral [...] 10/09/18 15:47:31 EST, Route to Pharmacy Electronically, [id number], DENNISE Ureñaamp; [facility] Start Date: [...] Gm, 11 Refills, Maintenance, 07/23/22 11:21:00 EDT, Todd, [facility], Partial fill upon patient request if [...] day, # 270 tablet, 1 Refills, Maintenance, 09/25/22 12:21:00 EST, [facility], 181, cm, 07/23/22 10:45:00 EDT, Height Start Date: 09/25/22 Status: Ordered insulin lispro 100 u/ml subcutaneous [...] 30 mL, 4 Refills, 07/09/22 15:53:00 EDT, [facility], 181, cm, 07/09/22 14:59:00 EDT, Height Start Date: 07/09/22 Status: Ordered levothyroxine 150 mcg (0.15 mg) oral tablet 1 tablet, By Mouth, Daily, # 90 tablet, 1 Refills, Maintenance, 08/01/22 20:32:00 EDT, [facility], 181, cm, 07/23/22 10:45:00 EDT, Height [...] Mouth, Daily, # 30 tablet, Refills 5, Maintenance, 09/25/22 14:58:00 EST, Route to Pharmacy Electronically, [facility], 181, cm, 07/23/22 10:45:00 EDT, Height Start Date: 09/25/22 Status: Ordered metFORMIN 1000 mg oral tablet 1 tablet, By Mouth, 2 times a day, # 60 tablet, 5 Refills, [facility], 181, cm, 01/15/22 11:07:00 EST, Height [...] CALL PCP, # 15 mL, 5 Refills, [facility], 181, cm, 01/15/22 11:07:00 EST, He... Start Date: 03/29/22 Status: Ordered Pen [place], 30 G x 8 mm BD Ultra [...] 07/09/22 15:46:00 EDT, Route to Pharmacy Electronically, [facility], 181, cm, 07/09/22 14:59:00 EDT, Height [...] Team Personnel Name: Vandana Gibbs RN Position: [facility] RN Member Role: Primary Care Nurse Name: Ginger Pate MD Position: [facility] Primary Care Physician Member Role: PCP Address: Address: [address] [place] [address] [address] [place] [address]- Care Team Related Persons Name: MARGARET RAMÍREZ Address: home [address] [facility] [place] [address] Name: REINA RAMÍREZ Address: home [address] [place] [address] Name: LUZ DE LA CRUZ
--- OUTSIDE RECORDS SUMMARY | 2024-03-02 18:40 | XMS_ITS | Continuity of Care Document ---
Author Organization [facility] Address [address] [place] [address]- Care Team Providers Care Compression Molding Machine Operator Name Role Phone Rio ROBISON, Ginger Primary Care Physician Encounter [facility] Date(s): 10/28/20 - 11/27/20 [facility] [address] [place] [address]- Attending Physician: Admtr, [id number] Admitting Physician: Admtr, [id number] Referring Physician: Admtr, Ar8 Allergies, Adverse Reactions, Alerts Substance Reaction Severity Status amoxicillin Active sulfa drugs Active Immunizations Given and Recorded Vaccine Date Status Refusal Reason influenza virus vaccine, inactivated 1 09/24/19 Gi mitch influenza virus vaccine, inactivated 2 08/06/17 Gi mitch influenza virus vaccine, inactivated 11/02/15 Give n pneumococcal 23-valent vaccine 03/01/15 Given tetanus/diphtheria/pertussis, acel(Tdap) 03/01/15 Given 1Result Comment: [facility] [id number] 2Result Comment: [facility] [id number] Medications Advair Diskus 250 mcg-50 mcg inhalation powder 1, puffs, Inhalation, Every 12 hours, rinse mouth and throat after use, # 28 each, Refills 6, Tot. Refills 6, Maintenance, 10/21/20 13:08:00 EST, Route to Pharmacy Electronically, NCPDP_[id number], [facility], please hold for when symbicort... Start Date: 10/21/20 Stop Date: 05/19/21 Status: Ordered albuterol 0.083% inhalation solution 3 mL = 2.5 mg, Inhalation, Every 6 hours, PRN for wheezing, DX COPD, # 60 each, 3 Refills, Maintenance, 10/21/20 16:57:00 EST, Solution, [facility], Partial fill upon patient request if [...] 10/31/20 9:30:00 EST, Route to Pharmacy Electronically, [facility], Rx resent from 05/11/19., 181, cm, 10/21/20 11:47:00 EST, Height Start Date: 10/31/20 Status: Ordered atorvastatin 40 mg oral tablet 1 tablet = 40 mg, By Mouth, Daily, # 90 tablet, 1 Refills, Maintenance, 07/26/20 12:07:00 EDT, Tablet, [facility], 181, cm, 12/09/19 15:01:00 EST, Height, [...] 10/09/18 15:47:31 EST, Route to Pharmacy Electronically, [id number], DENNISE Ureñaamp; [facility] Start Date: [...] tablet, 0 Refills, Maintenance, 10/24/20 10:05:00 EST, [facility], 181, cm, 10/21/20 11:47:00 EST, Height Start Date: 10/24/20 Status: Ordered ibuprofen 600 mg oral tablet 600 mg, 1, tablet, By Mouth, Every 6 hours, PRN, # 120 tablet, Refills 0, Tot. Refills 0, Maintenance, Pain, 01/08/20 15:02:00 EST, Route to Pharmacy Electronically, [facility], 181, cm, 12/09/19 15:01:00 EST, Height, 100.6, kg, 04/07/18 20:... Start Date: 01/08/20 Status: Ordered Incruse Ellipta 62.5 mcg/inh inhalation powder 1 each, Inhalation, Every 24 hours, doses should be taken at least 24 hours apart, # 1 each, 11 Refills, Maintenance, 10/25/20 15:07:00 EST, Powder, [facility], Partial fill upon patient request if [...] 5 Refills, Soft Stop, 10/25/20 9:50:00 EST, [facility], 181, cm, 10/21/20 11:47:00 EST, Height Start Date: 10/25/20 Status: Ordered levothyroxine 150 mcg (0.15 mg) oral tablet 1 tablet = 150 mcg, By Mouth, Daily, # 30 tablet, 5 Refills, Maintenance, 11/08/20 11:44:00 EST, Tablet, [facility], 181, cm, 10/21/20 11:47:00 EST, Height [...] 05/24/20 13:38:00 EDT, Route to Pharmacy Electronically, [facility], 181, cm, 12/09/19 15:01:00 EST, Height, Dry Weight Start Date: 05/24/20 Status: Ordered metFORMIN 1000 mg oral tablet 1 tablet = 1,000 mg, By Mouth, 2 times a day, # 60 tablet, 5 Refills, Maintenance, 11/01/20 9:36:00EST, [facility], 181, cm, 10/21/20 11:47:00 EST, Height [...] 12/13/20 13:20:00 EST, 11/01/20 13:20:00 EST, Patch, [facility], Partial fill upon patient request if the prescriptionis for a schedule II opioid drug., 1 patch Topicall... Start Date: 11/01/20 Stop Date: 12/13/20 Status: Ordered Pen [place], 30 G x 8 mm BD Ultra [...] 12:55:00 EST, Aerosol, Route to Pharmacy Electronically, NCPDP_[id number], [facility], 181, cm, 08/03/20 9:1... Start Date: 09/26/20 Stop Date: 03/25/21 Status: Ordered ProAir HFA 90 mcg/inh inhalation aerosol with adapter 2, puffs, Inhalation, Every 6 hours, PRN, use with spacer chamber, # 1 each, Refills 5, Tot. Refills 5, Maintenance, 03/25/21 12:55:00 EDT, Aerosol, Route to Pharmacy Electronically, NCPDP_[id number], [facility], 181, cm, 10/21/20 11:47:00 E... Start Date: 03/25/21 Stop Date: 09/21/21 Status: Ordered Prolixin DECANOATE Inj = 25 mg, Intramuscular, Every 21 days, 0 Refills, Maintenance, 01/19/19 14:36:12 EDT Start Date: 01/19/19 Status: Ordered tamsulosin 0.4 mg oral capsule 1, capsule, By Mouth, Daily, # 30 capsule, Refills 11, Tot. Refills 0, Maintenance, 05/09/20 8:55:00 EDT, Route to Pharmacy Electronically, [facility], 181, cm, 12/09/19 15:01:00 EST, Height Start Date: 05/09/20 Status: Ordered Viagra 50 mg oral tablet 1 tablet = 50 mg, By Mouth, Daily, PRN as needed for erectile dysfunction, 1 hour before sexual activity, # 5 tablet, 0 Refills, Maintenance, 12/09/19 15:44:00 EST, Tablet, [facility], 181,cm, 12/09/19 15:01:00 EST, Height, 100.6, [...]
--- OUTSIDE RECORDS SUMMARY | 2024-03-02 18:40 | XMS_ITS | Continuity of Care Document ---
Author Organization [facility] Adult Address [address] [place] [address]- Care Team Providers Care Utility System Repairer Name Role Phone Rio ROBISON, Ginger Primary Care Physician Encounter [facility] Date(s): 04/04/21 - 05/04/21 [facility] [address] [place] [address]- Attending Physician: Admtr, Ar8 Admitting Physician: Admtr, [...] Given tetanus/diphtheria/pertussis, acel(Tdap) 03/01/15 Given 1Result Comment: [facility] [id number] 2Result Comment: [facility] [id number] Medications albuterol 0.083% inhalation solution 3 mL = 2.5 mg, Inhalation, Every 6 hours, PRN for wheezing, DX COPD, # 60 each, 3 Refills, Maintenance, 10/21/20 16:57:00 EST, Solution, [facility], Partial fill upon patient request if theprescription is for a schedule II opioid drug., 181... Start Date: 10/21/20 Status: Ordered albuterol CFC free 90 mcg/inh inhalation aerosol 2, puffs, Inhalation, 4 times a day, PRN, # 18 Gm, Refills 11, Tot. Refills 11, Maintenance, 01/12/21 15:28:00 EST, Aerosol, [id number], 181, cm, 01/04/21 15:28:00 EST, Height [...] 11 Refills, Maintenance, 01/12/21 15:29:00 EST, Powder, [facility], Partial fill upon patient request if the prescription is for a schedule II opioid drug., 1 puffs Inhalation Daily,x30 days, 181, cm, 02... Start Date: 01/12/21 Stop Date: 01/07/22 Status: Ordered atenolol 50 mg oral tablet 25 mg, 0.5, tablet, By Mouth, Daily, # 15 tablet, Refills 1, Tot. Refills 1, Maintenance, 10/31/20 9:30:00 EST, Route to Pharmacy Electronically, [facility], Rx resent from 05/11/19., 181, cm, 10/21/20 11:47:00 EST, Height Start Date: 10/31/20 Status: Ordered atorvastatin 40 mg oral tablet 1 tablet = 40 mg, By Mouth, Daily, # 90 tablet, 1 Refills, Maintenance, 03/07/21 13:56:00 EDT, Tablet, [facility], 181, cm, 02/06/21 11:06:00 EDT, Height Start Date: 03/07/21 Status: Ordered benztropine 1 mg oral tablet See Instructions, 2 tablet in morning and 1 tab pm, 0 Refills, Maintenance, 12/09/14 9:34:09 Start Date: 12/09/14 Status: Ordered clozapine 25 mg oral tablet 1 tablet = 25 mg, By Mouth, 2 times a day, # 42 tablet, 0 Refills, Maintenance, 07/29/19 15:54:49 EDT, Tablet Start Date: 06/08/19 Status: Ordered Clozaril 100 mg oral tablet 1 tablet = 100 mg, By Mouth, Daily at bedtime, 0 Refills, Maintenance, 12/09/14 9:33:29 EST Start Date: 12/09/14 Status: Ordered COMFORT EZ MIS [id number] COMFORT EZ MIS [id number], See Instructions, # 100 each, Refills 5, [...] 10/09/18 15:47:31 EST, Route to Pharmacy Electronically, [id number], DENNISE Ureñaamp; [facility] Start Date: [...] tablet, 0 Refills, Maintenance, 01/24/21 14:43:00 EDT, [facility], 181, cm, 01/04/21 15:28:00 EST, Height Start Date: 01/24/21 Status: Ordered ibuprofen 600 mg oral tablet 600 mg, 1, tablet, By Mouth, Every 6 hours, PRN, # 120 tablet, Refills 0, Tot. Refills 0, Maintenance, Pain, 04/04/21 16:38:00 EDT, Route to Pharmacy Electronically, [facility], 181, cm, 02/06/21 11:06:00 EDT, Height Start Date: 04/04/21 Status: Ordered insulin lispro 100 u/ml subcutaneous injection See Instructions, SLIDING SCALE glucose insulin 110-150=0units 151-200=2un 201- 250=6un 251-300=8un 301-350=10units >350=12un and call PCP with BREAKFAST, LUNCH, AND DINNER, # 15 mL, 0 Refills, Maintenance, 10/25/20 12:02:00 EST, [place]... Start Date: 10/25/20 Status: Ordered Klonopin 1 [...] 5 Refills, Soft Stop, 10/25/20 9:50:00 EST, [facility], 181, cm, 10/21/20 11:47:00 EST, Height Start Date: 10/25/20 Status: Ordered levothyroxine 150 mcg (0.15 mg) oral tablet 1 tablet = 150 mcg, By Mouth, Daily, # 30 tablet, 5 Refills, Maintenance, 11/08/20 11:44:00 EST, Tablet, [facility], 181, cm, 10/21/20 11:47:00 EST, Height [...] 12/28/20 15:39:00 EST, Route to Pharmacy Electronically, [facility], 181, cm, 10/21/20 11:47:00 EST, Height Start Date: 12/28/20 Status: Ordered metFORMIN 1000 mg oral tablet 1 tablet = 1,000 mg, By Mouth, 2 times a day, # 60 tablet, 5 Refills, Maintenance, 04/27/21 11:14:00 EDT, [facility], 181, cm, 02/06/21 11:06:00 EDT, Height Start Date: 04/27/21 Status: Ordered Nebulizer/Compressor See Instructions, PRN, # 1 each, Maintenance, Wheezing/Shortness of Breath, Use with albuterol solution q6h Dx: COPD (J44.9), 10/21/20 14:33:00 EST, Supply Start Date: 10/21/20 Status: Ordered Pen [place], 30 G x 8 mm BD Ultra [...] 05/09/20 8:55:00 EDT, Route to Pharmacy Electronically, [facility], 181, cm, 12/09/19 15:01:00 EST, Height [...]
--- OUTSIDE RECORDS SUMMARY | 2024-03-02 18:40 | XMS_ITS | Continuity of Care Document ---
Author Organization [facility] Adult Address [address] [place] [address]- Care Team Providers Care [place] Leverman Name Role Phone Ginger Pate MD Primary Care Physician Encounter [facility] [place] Date(s): 08/03/20 - 08/10/20 [facility] [address] [place] [id number] [facility] Encounter Diagnosis Well adult exam(Discharge Diagnosis) - 08/03/20 Type 2 diabetes mellitus with diabetic neuropathy(Discharge Diagnosis) - 08/03/20 Type 2 diabetes mellitus, uncontrolled(Discharge Diagnosis) - 08/03/20 Dysuria(Discharge Diagnosis) - 08/03/20 Low serum testosterone level(Discharge Diagnosis) - 08/03/20 Schizo-affective schizophrenia(Discharge Diagnosis) - 08/03/20 Tobacco abuse(Discharge Diagnosis) - 08/03/20 COPD (chronic obstructive pulmonary disease)(Discharge Diagnosis) - 08/03/20 Hypothyroidism(Discharge Diagnosis) - 08/03/20 Dyslipidemia(Discharge Diagnosis) - 08/03/20 Bipolar disease, chronic(Discharge Diagnosis) - 08/03/20 Attending Physician: Ginger Pate MD Allergies, Adverse Reactions, Alerts Substance Reaction Severity Status amoxicillin Active sulfa drugs Active Immunizations Given and Recorded Vaccine Date Status Refusal Reason influenza virus vaccine, inactivated 1 09/24/19 Gi mitch influenza virus vaccine, inactivated 2 08/06/17 Gi mitch influenza virus vaccine, inactivated 11/02/15 Give n pneumococcal 23-valent vaccine 03/01/15 Given tetanus/diphtheria/pertussis, acel(Tdap) 03/01/15 Given 1Result Comment: [facility] [id number] 2Result Comment: [facility] [id number] Medications Advair Diskus 250 mcg-50 mcg inhalation powder 1, puffs, Inhalation, Every 12 hours, # 28 each, Refills 2, Tot. Refills 2, Maintenance, 04/10/18 16:19:35 EDT, Route to Pharmacy Electronically, [id number], [facility], please hold for when symbicort [...] 04/22/20 9:58:00 EDT, Route to Pharmacy Electronically, [facility], Rx resent from 05/11/19., 181, cm, 12/09/19 15:01:00 EST, Height, Dry Weight Start Date: 04/22/20 Status: Ordered atorvastatin 40 mg oral tablet 1 tablet = 40 mg, By Mouth, Daily, # 90 tablet, 1 Refills, Maintenance, 07/26/20 12:07:00 EDT, Tablet, [facility], 181, cm, 12/09/19 15:01:00 EST, Height, [...] 10/09/18 15:47:31 EST, Route to Pharmacy Electronically, [id number], [facility] Ure[facility]; [facility] Start Date: [...] tablet, 0 Refills, Maintenance, 06/28/20 15:29:00 EDT, [facility], 181, cm, 12/09/19 15:01:00 EST, Height Start Date: 06/28/20 Status: Ordered glipiZIDE 10 mg oral tablet, extended release 1 tablet = 10 mg, By Mouth, 2 times a day, # 60 tablet, 5 Refills, Soft Stop, 05/31/20 13:04:00 EDT, [facility], 181, cm, 12/09/19 15:01:00 EST, Height Start Date: 05/31/20 Stop Date: 11/27/20 Status: Ordered ibuprofen 600 mg oral tablet 600 mg, 1, tablet, By Mouth, Every 6 hours, PRN, # 120 tablet, Refills 0, Tot. Refills 0, Maintenance, Pain, 01/08/20 15:02:00 EST, Route to Pharmacy Electronically, [facility], 181, cm, 12/09/19 15:01:00 EST, Height, [...] 2 Refills, Soft Stop, 05/31/20 12:48:00 EDT, [facility], 181, cm, 12/09/19 15:01:00 EST, Height, Dry Weight Start Date: 05/31/20 Status: Ordered levothyroxine 150 mcg (0.15 mg) oral tablet 1 tablet = 150 mcg, By Mouth, Daily, # 30 tablet, 5 Refills, Maintenance, 04/04/20 20:54:00 EDT, Tablet, [facility], 181, cm, 12/09/19 15:01:00 EST, Height, [...] 05/24/20 13:38:00 EDT, Route to Pharmacy Electronically, [facility], 181, cm, 12/09/19 15:01:00 EST, Height, Dry Weight Start Date: 05/24/20 Status: Ordered metFORMIN 1000 mg oral tablet 1 tablet = 1,000 mg, By Mouth, 2 times a day, # 60 tablet, 5 Refills, Maintenance, 04/29/20 12:49:00 EDT, [facility], 181, cm, 12/09/19 15:01:00 EST, Height, Dry Weight Start Date: 04/29/20 Status: Ordered Pen [place], 30 G x 8 mm BD Ultra Fine II See Instructions, # 100 each, Refills 3, Tot. Refills 3, Maintenance, for use w levemir flex pen use as directed for Type 1 Diabetes Mellitus, 06/28/20 10:25:00 EDT, [facility], 181, cm, 12/09/19 15:01:00 EST, Height Start Date: 06/28/20 Stop Date: 10/26/20 Status: Ordered ProAir HFA 90 mcg/inh inhalation aerosol with adapter 1, puffs, Inhalation, Every 6 hours, PRN, # 18 Gm, Refills 0, Tot. Refills 0, Maintenance, 07/17/1813:34:55 EDT, Aerosol, Route to Pharmacy Electronically, [id number], [facility] Start Date: 07/17/18 Stop Date: 08/16/18 Status: Ordered Prolixin DECANOATE Inj = 25 mg, Intramuscular, Every 21 days, 0 Refills, Maintenance, 01/19/19 14:36:12 EDT Start Date: 01/19/19 Status: Ordered tamsulosin 0.4 mg oral capsule 1, capsule, By Mouth, Daily, # 30 capsule, Refills 11, Tot. Refills 0, Maintenance, 05/09/20 8:55:00 EDT, Route to Pharmacy Electronically, [facility], 181, cm, 12/09/19 15:01:00 EST, Height Start Date: 05/09/20 Status: Ordered Viagra 50 mg oral tablet 1 tablet = 50 mg, By Mouth, Daily, PRN as needed for erectile dysfunction, 1 hour before sexual activity, # 5 tablet, 0 Refills, Maintenance, 12/09/19 15:44:00 EST, Tablet, [facility], 181,cm, 12/09/19 15:01:00 EST, Height, 100.6, [...] Diagnosis Diagnosis Type Effective Dates Health Status Clinical Service Informant Well adult exam Discharge Diagnosis 08/03/20 Bipolar disease, chronic Discharge Diagnosis 08/03/20 COPD (chronic obstructive pulmonary disease) Discharge Diagnosis 08/03/20 Dyslipidemia Discharge Diagnosis 08/03/20 Hypothyroidism Discharge Diagnosis 08/03/20 Low serum testosterone level Discharge Diagnosis 08/03/20 Schizo-affective schizophrenia Discharge Diagnosis 08/03/20 Tobacco abuse Discharge Diagnosis 08/03/20 Type 2 diabetes mellitus with diabetic neuropathy Discharge Diagnosis 08/03/20 Type 2 diabetes mellitus, uncontrolled Discharge Diagnosis 08/03/20 Dysuria Discharge Diagnosis 08/03/20 Vital Signs Most recent to oldest [Reference Range]: 1 Height 181 cm (08/03/20 9:14 AM) Social History Social History Type Response Smoking Status Current every day sm bhanu; Tobacco user in household: Yes; Type: Cigarettes; Tobacco use times per day: 1/2 PPD; entered on: 08/09/16 Sex
--- OUTSIDE RECORDS SUMMARY | 2024-03-02 18:40 | XMS_ITS | Continuity of Care Document ---
Author Organization [facility] Adult Address [address] [place] [address]- Care Team Providers Care Second Worker Name Role Phone Rio ROBISON, Ginger Primary Care Physician [place] [facility] [place] 12/16/20 - 01/19/21 [facility] Adult [address] [place] [phone]- Attending Physician: Ginger Pate MD Allergies, Adverse Reactions, Alerts Substance Reaction Severity Status amoxicillin Active sulfa drugs Active Immunizations Given and Recorded Vaccine Date Status Refusal Reason influenza virus vaccine, inactivated 1 09/24/19 Gi mitch influenza virus vaccine, inactivated 2 08/06/17 Gi mitch influenza virus vaccine, inactivated 11/02/15 Give n pneumococcal 23-valent vaccine 03/01/15 Given tetanus/diphtheria/pertussis, acel(Tdap) 03/01/15 Given 1Result Comment: [facility] [id number] 2Result Comment: formerly named [facility] [id number] Medications Advair Diskus 250 mcg-50 mcg inhalation powder 1, puffs, Inhalation, Every 12 hours, rinse mouth and throat after use, # 28 each, Refills 6, Tot. Refills 6, Maintenance, 10/21/20 13:08:00 EST, Route to Pharmacy Electronically, NCPDP_[id number], [facility], please hold for when symbicort... Start Date: 10/21/20 Stop Date: 05/19/21 Status: Ordered albuterol 0.083% inhalation solution 3 mL = 2.5 mg, Inhalation, Every 6 hours, PRN for wheezing, DX COPD, # 60 each, 3 Refills, Maintenance, 10/21/20 16:57:00 EST, Solution, [facility], Partial fill upon patient request if theprescription is for a schedule II opioid drug., 181... Start Date: 10/21/20 Status: Ordered albuterol CFC free 90 mcg/inh inhalation aerosol 2, puffs, Inhalation, 4 times a day, PRN, # 18 Gm, Refills 11, Tot. Refills 11, Maintenance, 01/12/21 15:28:00 EST, Aerosol, Route to Pharmacy Electronically, [id number], [facility], 181, cm, 01/04/21 15:28:00 EST, Height [...] 11 Refills, Maintenance, 01/12/21 15:29:00 EST, Powder, [facility], Partial fill upon patient request if the prescription is for a schedule II opioid drug., 1 puffs Inhalation Daily,x30 days, 181, cm, 02... Start Date: 01/12/21 Stop Date: 01/07/22 Status: Ordered atenolol 50 mg oral tablet 25 mg, 0.5, tablet, By Mouth, Daily, # 15 tablet, Refills 1, Tot. Refills 1, Maintenance, 10/31/20 9:30:00 EST, Route to Pharmacy Electronically, [facility], Rx resent from 05/11/19., 181, cm, 10/21/20 11:47:00 EST, Height Start Date: 10/31/20 Status: Ordered atorvastatin 40 mg oral tablet 1 tablet = 40 mg, By Mouth, Daily, # 90 tablet, 1 Refills, Maintenance, 07/26/20 12:07:00 EDT, Tablet, [facility], 181, cm, 12/09/19 15:01:00 EST, Height, [...] 10/09/18 15:47:31 EST, Route to Pharmacy Electronically, [id number], [facility]; [facility] Start Date: [...] tablet, 0 Refills, Maintenance, 10/24/20 10:05:00 EST, [facility], 181, cm, 10/21/20 11:47:00 EST, Height Start Date: 10/24/20 Status: Ordered ibuprofen 600 mg oral tablet 600 mg, 1, tablet, By Mouth, Every 6 hours, PRN, # 120 tablet, Refills 0, Tot. Refills 0, Maintenance, Pain, 01/12/21 9:14:00 EST, Route to Pharmacy Electronically, [facility], 181, cm, 01/04/21 15:28:00 EST, Height [...] 5 Refills, Soft Stop, 10/25/20 9:50:00 EST, [facility], 181, cm, 10/21/20 11:47:00 EST, Height Start Date: 10/25/20 Status: Ordered levothyroxine 150 mcg (0.15 mg) oral tablet 1 tablet = 150 mcg, By Mouth, Daily, # 30 tablet, 5 Refills, Maintenance, 11/08/20 11:44:00 EST, Tablet, [facility], 181, cm, 10/21/20 11:47:00 EST, Height [...] 12/28/20 15:39:00 EST, Route to Pharmacy Electronically, [facility], 181, cm, 10/21/20 11:47:00 EST, Height Start Date: 12/28/20 Status: Ordered metFORMIN 1000 mg oral tablet 1 tablet = 1,000 mg, By Mouth, 2 times a day, # 60 tablet, 5 Refills, Maintenance, 11/01/20 9:36:00EST, [facility], 181, cm, 10/21/20 11:47:00 EST, Height Start Date: 11/01/20 Status: Ordered Nebulizer/Compressor See Instructions, PRN, # 1 each, Maintenance, Wheezing/Shortness of Breath, Use with albuterol solution q6h Dx: COPD (J44.9), 10/21/20 14:33:00 EST, Supply Start Date: 10/21/20 Status: Ordered Pen [place], 30 G x 8 mm BD Ultra [...] 12:55:00 EDT, Aerosol, Route to Pharmacy Electronically, NCPDP_[id number], [facility], 181, cm, 10/21/20 11:47:00 E... Start Date: 03/25/21 Stop Date: 09/21/21 Status: Ordered Prolixin DECANOATE Inj = 25 mg, Intramuscular, Every 21 days, 0 Refills, Maintenance, 01/19/19 14:36:12 EDT Start Date: 01/19/19 Status: Ordered tamsulosin 0.4 mg oral capsule 1, capsule, By Mouth, Daily, # 30 capsule, Refills 11, Tot. Refills 0, Maintenance, 05/09/20 8:55:00 EDT, Route to Pharmacy Electronically, [facility], 181, cm, 12/09/19 15:01:00 EST, Height [...]
--- OUTSIDE RECORDS SUMMARY | 2024-03-02 18:40 | XMS_ITS | Continuity of Care Document ---
Author Organization [facility] Adult Address [address] [place] [address]- Care Team Providers Care Changeover Operator Name Role Phone Rio ROBISON, Ginger Primary Care Physician [place] [facility] [place] 12[place]26[place]22 - 01/25/23 [facility] Adult [address] [place] [id number]- Allergies, Adverse Reactions, Alerts Substance Reaction Severity [...] tetanus-diphtheria toxoids (Td) 02/03/13 Recorded 1Result Comment: [facility] [id number] 2Result Comment: [facility] [id number] Medications albuterol 0.083% inhalation solution 3 mL = 2.5 mg, Inhalation, Every 6 hours, PRN for wheezing, DX COPD, # 60 each, 3 Refills, Maintenance, 10/21/20 16:57:00 EST, Solution, [facility], Partial fill upon patient request if theprescription is for a schedule II opioid drug., 181... Start Date: 12/11/20 Status: Ordered albuterol CFC free 90 mcg/inh inhalation aerosol 2, puffs, Inhalation, 4 times a day, PRN, # 18 Gm, Refills 11, Tot. Refills 11, Maintenance, 01/02/23 14:27:00 EST, Aerosol, Route to Pharmacy Electronically, NCPDP_[id number], [facility], 181, cm, 01/02/23 13:54:00 EST, Height [...] EDT, Height Start Date: 05/15/21 Status: Ordered Atarax Tablet = 25 mg, [...] Replace Required Details, Route to Pharmacy Electronically, [facility], 181, cm, 01/02/23 13:... Start Date: 01/04/23 Status: Ordered atorvastatin 40 mg oral tablet See Instructions, TAKE 1 TABLET BY MOUTH DAILY, # 30 tablet, 0 Refills, Maintenance, 01/03/23 13:35:00 EST, [facility], 181, cm, 01/02/23 13:54:00 EST, Height Start Date: 01/03/23 Status: Ordered Azithromycin 5 Day Dose Pack 250 mg oral tablet 1 pack/packet, By Mouth, Once, # 6 tablet, 0 Refills, Soft Stop, 01/02/23 14:26:00 EST, Tablet, [facility], Partial fill upon patient request if the prescription is for a schedule II opioiddrug., 181, cm, 01/02/23 13:54:00 EST, Height Start Date: 01/02/23 Status: Ordered BD PEN NEEDL MIS 31GX5/16 [...] Date: 08/11/21 Status: Ordered COMFORT EZ MIS [id number] COMFORT EZ MIS [id number], See Instructions, # 100 each, Refills 5, Tot. Refills 5, Maintenance, USE TO INJECT INSULIN BID DX E11.9, 02/22/21 11:54:00 EDT, Supply, 181, cm, 02/06/21 11:06:00 EDT, Height Start Date: 02/22/21 Status: Ordered COMFORT EZ MIS [id number] COMFORT EZ MIS [id number], See Instructions, # 100 each, 2 Refills, [...] 10/09/18 15:47:31 EST, Route to Pharmacy Electronically, [id number], [facility]; [facility] Start Date: [...] Gm, 11 Refills, Maintenance, 07/23/22 11:21:00 EDT, [place], [facility], Partial fill upon patient request if the prescription is for a schedule II opioid drug., 1 sprays Nares, Both 2 times a day, 18... Start Date: 07/23/22 Status: Ordered fluticasone/umeclidinium/vilanterol 100 mcg-62.5 mcg-25 mcg/inh inhalation powder 1 puffs, Inhalation, Daily, # 1 each, 11 Refills, Maintenance, 01/02/23 14:26:00 EST, [facility], Partial fill upon patient request if [...] tablet, 1 Refills, Maintenance, 09/25/22 12:21:00 EST, [facility], 181, cm, 07/23/22 10:45:00 EDT, Height [...] 30 mL, 4 Refills, 07/09/22 15:53:00 EDT, [facility], 181, cm, 07/09/22 14:59:00 EDT, Height Start Date: 07/09/22 Status: Ordered levothyroxine 150 mcg (0.15 mg) oral tablet 1 tablet, By Mouth, Daily, # 90 tablet, 1 Refills, Maintenance, 08/01/22 20:32:00 EDT, [facility], 181, cm, 07/23/22 10:45:00 EDT, Height [...] 09/25/22 14:58:00 EST, Route to Pharmacy Electronically, [facility], 181, cm, 07/23/22 10:45:00 EDT, Height Start Date: 09/25/22 Status: Ordered metFORMIN 1000 mg oral tablet 1 tablet, By Mouth, 2 times a day, # 60 tablet, 4 Refills, Maintenance, 12/14/22 8:54:00 EST, [facility], 181, cm, 07/23/22 10:45:00 EDT, Height [...] 15 mL, 5 Refills, 12/27/22 14:29:00 EST, [facility], 181, cm, 09... Start Date: 12/27/22 Status: Ordered Pen [place], 30 G x 8 mm BD Ultra Fine II See Instructions, # 100 each, Refills 3, Tot. Refills 3, Maintenance, for use w levemir flex pen use as directed for Type 1 Diabetes Mellitus, 06/27/21 12:50:00 EDT, [facility], 181, cm, 02/06/21 11:06:00 EDT, Height Start Date: 06/27/21 Stop Date: 10/25/21 Status: Ordered predniSONE 20 mg oral tablet 2 tablet = 40 mg, By Mouth, Daily, # 10 tablet, 0 Refills, Maintenance, 01/02/23 14:26:00 EST, [facility], Partial fill upon patient request if the prescription is for a schedule II opioid drug., 181, cm, 01/02/23 13:54:00 EST, Height Start Date: 01/02/23 Stop Date: 01/07/23 Status: Ordered tamsulosin 0.4 mg oral capsule 0.8 mg, 2, capsule, By Mouth, Daily, for 90 days, # 180 capsule, Refills 2, Tot. Refills 2, Physician Stop 04/05/23 15:46:00 EDT, 07/09/22 15:46:00 EDT, Route to Pharmacy Electronically, [facility], 181, cm, 07/09/22 14:59:00 EDT, Height [...] Team Personnel Name: Vandana Gibbs RN Position: [facility] RN Member Role: Primary Care Nurse Name: Ginger Pate MD Position: [facility] Primary Care Physician Member Role: PCP Address: Address: [address] [place] [address]- Care Team Related Persons Name: MARGARET RAMÍREZ Address: home [address] [place] [address]. [place] [address] Name: REINA RAMÍREZ Address: home [address] [place] [address] Name: LUZ DE LA CRUZ
--- OUTSIDE RECORDS SUMMARY | 2024-03-02 18:40 | XMS_ITS | Continuity of Care Document ---
Author Organization [facility] Adult Address [address] [place] [address]- Care Team Providers Care Impregnating Tank Operator Name Role Phone Rio ROBISON, Ginger Primary Care Physician Encounter [facility] [place](s): 05/24/20 - 06/23/20 [facility] Adult [address] [place] [address]- [facility] Allergies, Adverse Reactions, Alerts Substance Reaction Severity Status amoxicillin Active sulfa drugs Active Immunizations Given and Recorded Vaccine Date Status Refusal Reason influenza virus vaccine, inactivated 1 09/24/19 Gi mitch influenza virus vaccine, inactivated 2 08/06/17 Gi mitch influenza virus vaccine, inactivated 11/02/15 Give n pneumococcal 23-valent vaccine 03/01/15 Given tetanus/diphtheria/pertussis, acel(Tdap) 03/01/15 Given 1Result Comment: [facility] [id number] 2Result Comment: [facility] [id number] Medications Advair Diskus 250 mcg-50 mcg inhalation powder 1, puffs, Inhalation, Every 12 hours, # 28 each, Refills 2, Tot. Refills 2, Maintenance, 04/10/18 16:19:35 EDT, Route to Pharmacy Electronically, [id number], [facility], please hold [...] 04/22/20 9:58:00 EDT, Route to Pharmacy Electronically, [facility], Rx resent from 05/11/19., 181, cm, 12/09/19 15:01:00 EST, Height, Dry Weight Start Date: 04/22/20 Status: Ordered atorvastatin 40 mg oral tablet 1 tablet = 40 mg, By Mouth, Daily, # 90 tablet, 1 Refills, Maintenance, 01/28/20 12:12:00 EDT, Tablet, [facility], 181, cm, 12/09/19 15:01:00 EST, Height, [...] 10/09/18 15:47:31 EST, Route to Pharmacy Electronically, [id number], [facility]; [facility] Start Date: [...] tablet, 1 Refills, Maintenance, 04/29/20 14:28:00 EDT, [facility], 181, cm, 12/09/19 15:01:00 EST, Height, Dry Weight Start Date: 04/29/20 Status: Ordered glipiZIDE 10 mg oral tablet, extended release 1 tablet = 10 mg, By Mouth, 2 times a day, # 60 tablet, 5 Refills, Soft Stop, 05/31/20 13:04:00 EDT, [facility], 181, cm, 12/09/19 15:01:00 EST, Height Start Date: 05/31/20 Stop Date: 11/27/20 Status: Ordered ibuprofen 600 mg oral tablet 600 mg, 1, tablet, By Mouth, Every 6 hours, PRN, # 120 tablet, Refills 0, Tot. Refills 0, Maintenance, Pain, 01/08/20 15:02:00 EST, Route to Pharmacy Electronically, [facility], 181, cm, 12/09/19 15:01:00 EST, Height, [...] 2 Refills, Soft Stop, 05/31/20 12:48:00 EDT, [facility], 181, cm, 12/09/19 15:01:00 EST, Height, Dry Weight Start Date: 05/31/20 Status: Ordered levothyroxine 150 mcg (0.15 mg) oral tablet 1 tablet = 150 mcg, By Mouth, Daily, # 30 tablet, 5 Refills, Maintenance, 04/04/20 20:54:00 EDT, Tablet, [facility], 181, cm, 12/09/19 15:01:00 EST, Height, [...] 05/24/20 13:38:00 EDT, Route to Pharmacy Electronically, [facility], 181, cm, 12/09/19 15:01:00 EST, Height, Dry Weight Start Date: 05/24/20 Status: Ordered metFORMIN 1000 mg oral tablet 1 tablet = 1,000 mg, By Mouth, 2 times a day, # 60 tablet, 5 Refills, Maintenance, 04/29/20 12:49:00 EDT, [facility], 181, cm, 12/09/19 15:01:00 EST, Height, Dry Weight Start Date: 04/29/20 Status: Ordered Pen [place], 30 G x 8 mm BD Ultra [...] 07/17/1813:34:55 EDT, Aerosol, Route to Pharmacy Electronically, [id number], [facility] Start Date: 07/17/18 Stop Date: 08/16/18 Status: Ordered Prolixin DECANOATE Inj = 25 mg, Intramuscular, Every 21 days, 0 Refills, Maintenance, 01/19/19 14:36:12 EDT Start Date: 01/19/19 Status: Ordered tamsulosin 0.4 mg oral capsule 1, capsule, By Mouth, Daily, # 30 capsule, Refills 11, Tot. Refills 0, Maintenance, 05/09/20 8:55:00 EDT, Route to Pharmacy Electronically, [facility], 181, cm, 12/09/19 15:01:00 EST, Height Start Date: 05/09/20 Status: Ordered Viagra 50 mg oral tablet 1 tablet = 50 mg, By Mouth, Daily, PRN as needed for erectile dysfunction, 1 hour before sexual activity, # 5 tablet, 0 Refills, Maintenance, 12/09/19 15:44:00 EST, Tablet, [facility], 181,cm, 12/09/19 15:01:00 EST, Height, 100.6, kg, 04/07... Start Date: 12/09/19 Status: Ordered Vistaril pamoate 25 mg oral capsule 1 capsule = 25 mg, By Mouth, 2 times a day, 0 Refills, Maintenance, 03/11/19 14:36:30 EDT Start Date: 01/19/19 Status: Ordered [...]
--- OUTSIDE RECORDS SUMMARY | 2024-03-02 18:40 | XMS_ITS | Continuity of Care Document ---
Author Organization [facility] Adult Address [address] [place] [address]- Care Team Providers Care Cloth Laminating Supervisor Name Role Phone Rio ROBISON, Ginger Primary Care Physician [place] [facility] [place] - 07/24/[address] [facility] Adult [address] [place] [address]- [facility] Allergies, Adverse Reactions, Alerts Substance Reaction Severity Status amoxicillin Active sulfa drugs Active Immunizations Given and Recorded Vaccine Date Status Refusal Reason influenza virus vaccine, inactivated 1 09/24/19 Gi mitch influenza virus vaccine, inactivated 2 08/06/17 Gi mitch influenza virus vaccine, inactivated 11/02/15 Give n pneumococcal 23-valent vaccine 03/01/15 Given tetanus/diphtheria/pertussis, acel(Tdap) 03/01/15 Given 1Result Comment: [facility] [id number] 2Result Comment: [facility] [place] [phone] Medications Advair Diskus 250 mcg-50 mcg inhalation powder 1, puffs, Inhalation, Every 12 hours, # 28 each, Refills 2, Tot. Refills 2, Maintenance, 04/10/18 16:19:35 EDT, Route to Pharmacy Electronically, [id number], [facility], please hold [...] 04/22/20 9:58:00 EDT, Route to Pharmacy Electronically, [facility], Rx resent from 05/11/19., 181, cm, 12/09/19 15:01:00 EST, Height, Dry Weight Start Date: 04/22/20 Status: Ordered atorvastatin 40 mg oral tablet 1 tablet = 40 mg, By Mouth, Daily, # 90 tablet, 1 Refills, Maintenance, 01/28/20 12:12:00 EDT, Tablet, [facility], 181, cm, 12/09/19 15:01:00 EST, Height, [...] 10/09/18 15:47:31 EST, Route to Pharmacy Electronically, [id number], [facility] Start Date: [...] tablet, 0 Refills, Maintenance, 06/28/20 15:29:00 EDT, [facility], 181, cm, 12/09/19 15:01:00 EST, Height Start Date: 06/28/20 Status: Ordered glipiZIDE 10 mg oral tablet, extended release 1 tablet = 10 mg, By Mouth, 2 times a day, # 60 tablet, 5 Refills, Soft Stop, 05/31/20 13:04:00 EDT, [facility], 181, cm, 12/09/19 15:01:00 EST, Height Start Date: 05/31/20 Stop Date: 11/27/20 Status: Ordered ibuprofen 600 mg oral tablet 600 mg, 1, tablet, By Mouth, Every 6 hours, PRN, # 120 tablet, Refills 0, Tot. Refills 0, Maintenance, Pain, 01/08/20 15:02:00 EST, Route to Pharmacy Electronically, [facility], 181, cm, 12/09/19 15:01:00 EST, Height, [...] 2 Refills, Soft Stop, 05/31/20 12:48:00 EDT, [facility], 181, cm, 12/09/19 15:01:00 EST, Height, Dry Weight Start Date: 05/31/20 Status: Ordered levothyroxine 150 mcg (0.15 mg) oral tablet 1 tablet = 150 mcg, By Mouth, Daily, # 30 tablet, 5 Refills, Maintenance, 04/04/20 20:54:00 EDT, Tablet, [facility], 181, cm, 12/09/19 15:01:00 EST, Height, [...] 05/24/20 13:38:00 EDT, Route to Pharmacy Electronically, [facility], 181, cm, 12/09/19 15:01:00 EST, Height, Dry Weight Start Date: 05/24/20 Status: Ordered metFORMIN 1000 mg oral tablet 1 tablet = 1,000 mg, By Mouth, 2 times a day, # 60 tablet, 5 Refills, Maintenance, 04/29/20 12:49:00 EDT, [facility], 181, cm, 12/09/19 15:01:00 EST, Height, Dry Weight Start Date: 04/29/20 Status: Ordered Pen [place], 30 G x 8 mm BD Ultra [...] 07/17/1813:34:55 EDT, Aerosol, Route to Pharmacy Electronically, [id number], [facility] Start Date: 07/17/18 Stop Date: 08/16/18 Status: Ordered Prolixin DECANOATE Inj = 25 mg, Intramuscular, Every 21 days, 0 Refills, Maintenance, 01/19/19 14:36:12 EDT Start Date: 01/19/19 Status: Ordered tamsulosin 0.4 mg oral capsule 1, capsule, By Mouth, Daily, # 30 capsule, Refills 11, Tot. Refills 0, Maintenance, 05/09/20 8:55:00 EDT, Route to Pharmacy Electronically, [facility], 181, cm, 12/09/19 15:01:00 EST, Height Start Date: 05/09/20 Status: Ordered Viagra 50 mg oral tablet 1 tablet = 50 mg, By Mouth, Daily, PRN as needed for erectile dysfunction, 1 hour before sexual activity, # 5 tablet, 0 Refills, Maintenance, 12/09/19 15:44:00 EST, Tablet, [facility], 181,cm, 12/09/19 15:01:00 EST, Height, 100.6, [...]
--- OUTSIDE RECORDS SUMMARY | 2024-03-02 18:40 | XMS_ITS | Continuity of Care Document ---
Author Organization [facility] Address [address] [address]- Care Team Providers Care Principal Java Developer Name Role Phone Rio ROBISON, Ginger Primary Care Physician Encounter [facility] [place] [facility] R [id number] Date(s): 04/02/22 - 05/02/22 [facility] [address] [place] [address] [place] [address] [place] Attending Physician: AdmEricka mora Admitting Physician: AdmtrEricka Referring Physician: Admtr, Ar8 Allergies, Adverse Reactions, Alerts Substance Reaction Severity Status amoxicillin Active sulfa drugs Active Immunizations Given and Recorded Vaccine Date Status Refusal Reason influenza virus vaccine, inactivated 1 09/24/19 Gi mitch influenza virus vaccine, inactivated 2 08/06/17 Gi mitch influenza virus vaccine, inactivated 11/02/15 Give n pneumococcal 23-valent vaccine 03/01/15 Given tetanus/diphtheria/pertussis, acel(Tdap) 03/01/15 Given 1Result Comment: [facility] [id number] 2Result Comment: [facility] [id number] Medications albuterol 0.083% inhalation solution 3 mL = 2.5 mg, Inhalation, Every 6 hours, PRN for wheezing, DX COPD, # 60 each, 3 Refills, Maintenance, 10/21/20 16:57:00 EST, Solution, [facility], Partial fill upon patient request if theprescription is for a schedule II opioid drug., 181... Start Date: 10/21/20 Status: Ordered albuterol CFC free 90 mcg/inh inhalation aerosol 2, puffs, Inhalation, 4 times a day, PRN, # 18 Gm, Refills 11, Tot. Refills 11, Maintenance, 01/12/21 15:28:00 EST, Aerosol, Route to Pharmacy Electronically, NCPDP_[id number], [facility], 181, cm, 01/04/21 15:28:00 EST, Height Start Date: 01/12/21 Stop Date: 01/07/22 Status: Ordered albuterol CFC free 90 mcg/inh inhalation aerosol 2, puffs, Inhalation, 4 times a day, PRN, # 18 Gm, Refills 11, Tot. Refills 11, Maintenance, 01/15/22 11:28:00 EST, Aerosol, Route to Pharmacy Electronically, NCPDP_[id number], [facility], 181, cm, 01/15/22 11:07:00 EST, Height [...] 11 Refills, Maintenance, 01/07/22 15:29:00 EST, Powder, [facility], Partial fill upon patient request if [...] Instructions ReplaceRequired Details, Route to Pharmacy Electronically, [facility], 181, cm, 08/09/21 14:56:00 EDT, Height Start Date: 01/02/22 Status: Ordered atorvastatin 40 mg oral tablet 1 tablet, By Mouth, Daily, # 90 tablet, 1 Refills, [facility], 181, cm, 01/15/22 11:07:00EST, Height Start Date: 04/26/22 Status: Ordered benztropine 1 mg oral tablet [...] Date: 08/11/21 Status: Ordered COMFORT EZ MIS [id number] COMFORT EZ MIS [id number], See Instructions, # 100 each, Refills 5, Tot. Refills 5, Maintenance, USE TO INJECT INSULIN BID DX E11.9, 02/22/21 11:54:00 EDT, Supply, 181, cm, 02/06/21 11:06:00 EDT, Height Start Date: 02/22/21 Status: Ordered COMFORT EZ MIS [id number] COMFORT EZ MIS [id number], See Instructions, # 100 each, 2 Refills, [...] 10/09/18 15:47:31 EST, Route to Pharmacy Electronically, [id number], [facility] Start Date: [...] tablet, 0 Refills, Maintenance, 02/01/22 7:20:00 EDT, [facility], 181, cm, 01/15/22 11:07:00 EST, Height Start Date: 02/01/22 Status: Ordered ibuprofen 600 mg oral tablet 600 mg, 1, tablet, By Mouth, Every 6 hours, PRN, # 120 tablet, Refills 0, Tot. Refills 0, Maintenance, Pain, 04/04/21 16:38:00 EDT, Route to Pharmacy Electronically, [facility], 181, cm, 02/06/21 11:06:00 EDT, Height [...] AT BEDTIME, # 30 mL, 4 Refills, [facility], 181, cm, 08/09/21 14:56:00 EDT, Height Start Date: 11/08/21 Status: Ordered levothyroxine 150 mcg (0.15 mg) oral tablet 1 tablet, By Mouth, Daily, # 30 tablet, 5 Refills, [facility], 181, cm, 08/09/21 14:56:00EDT, Height Start [...] tablet, Refills 5, Route to Pharmacy Electronically, [facility], 181, cm, 01/15/22 11:07:00 EST, Height Start Date: 02/01/22 Status: Ordered metFORMIN 1000 mg oral tablet 1 tablet, By Mouth, 2 times a day, # 60 tablet, 5 Refills, [facility], 181, cm, 08/09/21 14:56:00 EDT, Height Start [...] CALL PCP, # 15 mL, 5 Refills, [facility], 181, cm, 01/15/22 11:07:00 EST, He... Start Date: 03/29/22 Status: Ordered Pen [place], 30 G x 8 mm BD Ultra [...] 06/08/21 16:19:00 EDT, Route to Pharmacy Electronically, [facility], 181, cm, 02/06/21 11:06:00 EDT, Height [...]
--- OUTSIDE RECORDS SUMMARY | 2024-03-02 18:40 | XMS_ITS | Continuity of Care Document ---
Author Organization [facility] Adult Address [address] [place] [address]- Care Team Providers Care Methodologist Name Role Phone Rio ROBISON, Ginger Primary Care Physician Encounter [facility] [place] Date(s): 12/29/23 - 01/28/24 [facility] Adult [address] [place] [id number]- Allergies, Adverse Reactions, Alerts Substance Reaction Severity [...] 02/03/13 Recorded 1Result Comment: [facility] [id number] 2Result Comment: formerly named [facility] [id number] Medications albuterol 0.083% inhalation solution 3 mL = 2.5 mg, Inhalation, Every 6 hours, PRN for wheezing, DX COPD, # 60 each, 3 Refills, Maintenance, 10/21/20 16:57:00 EST, Solution, [facility], Partial fill upon patient request if theprescription is for a schedule II opioid drug., 181... Start Date: 10/21/20 Status: Ordered albuterol CFC free 90 mcg/inh inhalation aerosol 2, puffs, Inhalation, 4 times a day, PRN, # 1 each, Refills 11, Tot. Refills 11, Maintenance, 12/30/23 15:02:00 EST, Aerosol, [facility]ically[id number], cm, 12/30/23 12:59:00 EST, Height Start [...] 09/04/23 13:27:00 EDT, Route to Pharmacy Electronically, [facility], 183, cm, 06/27/23 10:36:00 EDT, Height Start Date: 09/04/23 Stop Date: 03/02/24 Status: Ordered atorvastatin 40 mg oral tablet 1 tablet = 40 mg, By Mouth, Daily, # 90 tablet, 2 Refills, Maintenance, 09/19/23 8:50:00 EST, [facility], 183, cm, 09/10/23 14:55:00 EDT, Height Start Date: 09/19/23 Status: Ordered Basaglar KwikPen 100 units/mL subcutaneous solution See Instructions, 45 units Subcutaneous Injection in morning and 35 units at bedtime Replacing Levemir not covered by insurance, # 15 mL, 5 Refills, Maintenance, 12/31/23 11:25:00 EST, Solution, [facility], Replacing Levemir not covered b... Start [...] Date: 06/27/23 Status: Ordered COMFORT EZ MIS [id number] COMFORT EZ MIS [id number], See Instructions, # 100 each, Refills 5, Tot. Refills 5, Maintenance, USE TO INJECT INSULIN BID DX E11.9, 02/22/21 11:54:00 EDT, Supply, 181, cm, 02/06/21 11:06:00 EDT, Height Start Date: 02/22/21 Status: Ordered COMFORT EZ MIS [id number] COMFORT EZ MIS [id number], See Instructions, # 100 each, 2 Refills, [...] Gm, 11 Refills, Maintenance, 07/23/22 11:21:00 EDT, [place], [facility], Partial fill upon patient request if [...] tablet, 1 Refills, Maintenance, 11/01/23 12:30:00 EST, [facility], 183, cm, 09/10/23 14:55:00 EDT, Height Start Date: 11/01/23 Status: Ordered Konsyl 100% oral powder for reconstitution = 7.5 Gm, By Mouth, 3 times a day, # 500 Gm, 0 Refills, Maintenance, 09/10/23 15:26:00 EDT, REC Powder, [facility], Partial fill upon patient request if the prescription is for a schedule II opioid drug., 183, cm, 09/10/23 14:55:00 EDT, Height Start Date: 09/10/23 Status: Ordered levothyroxine 150 mcg (0.15 mg) oral tablet 1 tablet, By Mouth, Daily, # 90 tablet, 2 Refills, Maintenance, 02/27/23 11:54:00 EDT, [facility], 181, cm, 01/02/23 13:54:00 EST, Height [...] 12/30/23 9:18:00 EST, Route to Pharmacy Electronically, [facility], 183, cm, 09/10/23 14:55:00 EDT, Height Start Date: 12/30/23 Status: Ordered metFORMIN 1000 mg oral tablet 1 tablet, By Mouth, 2 times a day, # 60 tablet, 5 Refills, Maintenance, 01/27/24 11:02:00 EDT, [facility], 183, cm, 12/30/23 12:59:00 EST, Height Start Date: 01/27/24 Status: Ordered Nebulizer/Compressor See Instructions, PRN, # [...] 15 mL, 5 Refills, 12/27/22 14:29:00 EST, [facility], 181, cm, 09... Start Date: 12/27/22 Status: Ordered PEG-3350 with Electrolytes Lemon (Eqv-GoLYTELY) oral powder for reconstitution See Instructions, Per GI office instructions, # 4,000 mL, 0 Refills, Maintenance, 12/19/23 10:42:00EST, [facility], Partial fill upon patient request if the prescription is for a schedule II opioid drug., Per GI office instructions, 183, cm... Start Date: 12/19/23 Status: Ordered PEN NEEDLES [id number] PEN NEEDLES [id number], See Instructions, # 200 each, Refills 5, [...] Replace Required Details, Route to Pharmacy Electronically, [facility], 183, cm, 09/10/23 14:55:00... Start Date: [...] each, 11 Refills, Maintenance, 01/09/24 12:05:00 EST, [facility], 183, cm, 12/30/23 12:59:00 EST, Height [...] Team Personnel Name: Vandana Gibbs RN Position: [facility] RN Member Role: Primary Care Nurse Name: Ginger Pate MD Position: [facility] Physician - Primary Care Member Role: PCP Address: Address: [address] [place] [address] [address] [place] [address]- Care Team Related Persons Name: MARGARET RAMÍREZ Address: home [address] [place] [address]. [place] [address] Name: REINA RAMÍREZ Address: home [address] [place] [address] Name: LUZ DE LA CRUZ
--- OUTSIDE RECORDS SUMMARY | 2024-03-02 18:40 | XMS_ITS | Continuity of Care Document ---
Author Organization [facility] Adult Address [address] [place] [address]- Care Team Providers Care Squeegee Operator Name Role Phone Rio ROBISON, Ginger Primary Care Physician [place] [facility] [place](s): 12/06/22 - 01/05/23 [facility] Adult [address] [place] [id number]- Allergies, Adverse Reactions, Alerts Substance Reaction Severity [...] tetanus-diphtheria toxoids (Td) 02/03/13 Recorded 1Result Comment: [facility] [id number] 2Result Comment: [facility] [phone] Medications albuterol 0.083% inhalation solution 3 mL = 2.5 mg, Inhalation, Every 6 hours, PRN for wheezing, DX COPD, # 60 each, 3 Refills, Maintenance, 10/21/20 16:57:00 EST, Solution, [facility], Partial fill upon patient request if theprescription is for a schedule II opioid drug., 181... Start Date: 12/11/20 Status: Ordered albuterol CFC free 90 mcg/inh inhalation aerosol 2, puffs, Inhalation, 4 times a day, PRN, # 18 Gm, Refills 11, Tot. Refills 11, Maintenance, 01/02/23 14:27:00 EST, Aerosol, Route to Pharmacy Electronically, NCPDP_[id number], [facility], 181, cm, 01/02/23 13:54:00 EST, Height [...] Replace Required Details, Route to Pharmacy Electronically, [facility], 181, cm, 01/02/23 13:... Start Date: 01/04/23 Status: Ordered atorvastatin 40 mg oral tablet See Instructions, TAKE 1 TABLET BY MOUTH DAILY, # 30 tablet, 0 Refills, Maintenance, 01/03/23 13:35:00 EST, [facility], 181, cm, 01/02/23 13:54:00 EST, Height Start Date: 01/03/23 Status: Ordered Azithromycin 5 Day Dose Pack 250 mg oral tablet 1 pack/packet, By Mouth, Once, # 6 tablet, 0 Refills, Soft Stop, 01/02/23 14:26:00 EST, Tablet, [facility], Partial fill upon patient request if [...] Date: 08/11/21 Status: Ordered COMFORT EZ MIS [id number] COMFORT EZ MIS [id number], See Instructions, # 100 each, Refills 5, Tot. Refills 5, Maintenance, USE TO INJECT INSULIN BID DX E11.9, 02/22/21 11:54:00 EDT, Supply, 181, cm, 02/06/21 11:06:00 EDT, Height Start Date: 02/22/21 Status: Ordered COMFORT EZ MIS [id number] COMFORT EZ MIS [id number], See Instructions, # 100 each, 2 Refills, [...] 10/09/18 15:47:31 EST, Route to Pharmacy Electronically, [id number], [facility] Start Date: [...] Gm, 11 Refills, Maintenance, 07/23/22 11:21:00 EDT, [place], [facility], Partial fill upon patient request if the prescription is for a schedule II opioid drug., 1 sprays Nares, Both 2 times a day, 18... Start Date: 07/23/22 Status: Ordered fluticasone/umeclidinium/vilanterol 100 mcg-62.5 mcg-25 mcg/inh inhalation powder 1 puffs, Inhalation, Daily, # 1 each, 11 Refills, Maintenance, 01/02/23 14:26:00 EST, [facility], Partial fill upon patient request if [...] tablet, 1 Refills, Maintenance, 09/25/22 12:21:00 EST, [facility], 181, cm, 07/23/22 10:45:00 EDT, Height [...] 30 mL, 4 Refills, 07/09/22 15:53:00 EDT, [facility], 181, cm, 07/09/22 14:59:00 EDT, Height Start Date: 07/09/22 Status: Ordered levothyroxine 150 mcg (0.15 mg) oral tablet 1 tablet, By Mouth, Daily, # 90 tablet, 1 Refills, Maintenance, 08/01/22 20:32:00 EDT, [facility], 181, cm, 07/23/22 10:45:00 EDT, Height [...] 09/25/22 14:58:00 EST, Route to Pharmacy Electronically, [facility], 181, cm, 07/23/22 10:45:00 EDT, Height Start Date: 09/25/22 Status: Ordered metFORMIN 1000 mg oral tablet 1 tablet, By Mouth, 2 times a day, # 60 tablet, 4 Refills, Maintenance, 12/14/22 8:54:00 EST, [facility], 181, cm, 07/23/22 10:45:00 EDT, Height [...] 15 mL, 5 Refills, 12/27/22 14:29:00 EST, [facility], 181, cm, 09... Start Date: 12/27/22 Status: Ordered Pen [place], 30 G x 8 mm BD Ultra [...] tablet, 0 Refills, Maintenance, 01/02/23 14:26:00 EST, [facility], Partial fill upon patient request if [...] 07/09/22 15:46:00 EDT, Route to Pharmacy Electronically, [facility], 181, cm, 07/09/22 14:59:00 EDT, Height [...] Team Personnel Name: Vandana Gibbs RN Position: [facility] RN Member Role: Primary Care Nurse Name: Ginger Pate MD Position: [facility] Primary Care Physician Member Role: PCP Address: Address: [address] [place] [address]- Care Team Related Persons Name: MARGARET RAMÍREZ Address: home [address] [place] [address]. [place] [address] Name: REINA RAMÍREZ Address: home [address] [place] [address] Name: LUZ DE LA CRUZ
--- OUTSIDE RECORDS SUMMARY | 2024-03-02 18:40 | XMS_ITS | Continuity of Care Document ---
Author Organization [facility] Adult Address [address] [place] [address]- Care Team Providers Care Structural Architect Name Role Phone Rio ROBISON, Ginger Primary Care Physician Encounter [facility] [place] Date(s): 09/06/23 - 10/10/23 [facility] Adult [address] [place] [id number]- Attending Physician: Ginger Pate MD Allergies, Adverse [...] tetanus-diphtheria toxoids (Td) 02/03/13 Recorded 1Result Comment: [facility] [id number] 2Result Comment: [facility] [phone] Medications albuterol 0.083% inhalation solution 3 mL = 2.5 mg, Inhalation, Every 6 hours, PRN for wheezing, DX COPD, # 60 each, 3 Refills, Maintenance, 10/21/20 16:57:00 EST, Solution, [facility], Partial fill upon patient request if theprescription is for a schedule II opioid drug., 181... Start Date: 10/21/20 Status: Ordered albuterol CFC free 90 mcg/inh inhalation aerosol 2, puffs, Inhalation, 4 times a day, PRN, # 18 Gm, Refills 11, Tot. Refills 11, Maintenance, 01/02/23 14:27:00 EST, Aerosol, Route to Pharmacy Electronically, DCPDP_[id number], [facility], 181, cm, 01/02/23 13:54:00 EST, Height [...] 09/04/23 13:27:00 EDT, Route to Pharmacy Electronically, [facility], 183, cm, 06/27/23 10:36:00 EDT, Height Start Date: 09/04/23 Stop Date: 03/02/24 Status: Ordered atorvastatin 40 mg oral tablet 1 tablet = 40 mg, By Mouth, Daily, # 90 tablet, 2 Refills, Maintenance, 09/19/23 8:50:00 EST, [facility], 183, cm, 09/10/23 14:55:00 EDT, Height [...] Date: 06/27/23 Status: Ordered COMFORT EZ MIS [id number] COMFORT EZ MIS [id number], See Instructions, # 100 each, Refills 5, Tot. Refills 5, Maintenance, USE TO INJECT INSULIN BID DX E11.9, 02/22/21 11:54:00 EDT, Supply, 181, cm, 02/06/21 11:06:00 EDT, Height Start Date: 02/22/21 Status: Ordered COMFORT EZ MIS [id number] COMFORT EZ MIS [id number], See Instructions, # 100 each, 2 Refills, [...] Gm, 11 Refills, Maintenance, 07/23/22 11:21:00 EDT, [place], [facility], Partial fill upon patient request if the prescription is for a schedule II opioid drug., 1 sprays Nares, Both 2 times a day, 18... Start Date: 07/23/22 Status: Ordered fluticasone/umeclidinium/vilanterol 100 mcg-62.5 mcg-25 mcg/inh inhalation powder 1 puffs, Inhalation, Daily, # 1 each, 11 Refills, Maintenance, 01/02/23 14:26:00 EST, [facility], Partial fill upon patient request if [...] tablet, 1 Refills, Maintenance, 03/28/23 16:39:00 EDT, [facility], 181, cm, 01/02/23 13:54:00 EST, Height Start Date: 03/28/23 Status: Ordered Konsyl 100% oral powder for reconstitution = 7.5 Gm, By Mouth, 3 times a day, # 500 Gm, 0 Refills, Maintenance, 09/10/23 15:26:00 EDT, REC Powder, [facility], Partial fill upon patient request if the prescription is for a schedule II opioid drug., 183, cm, 09/10/23 14:55:00 EDT, Height Start Date: 09/10/23 Status: Ordered Levemir FlexTouch 100 units/mL subcutaneous solution See Instructions, INJECT 45 UNITS SUBCUTANEOUSLY EVERY MORNING AND INJECT 35 UNITS SUBCUTANEOUSLY EVERY NIGHT AT BEDTIME, # 30 mL, 3 Refills, Maintenance, 09/25/23 8:40:00 EST, [facility], 183, cm, 09/10/23 14:55:00 EDT, Height Start Date: 09/25/23 Status: Ordered levothyroxine 150 mcg (0.15 mg) oral tablet 1 tablet, By Mouth, Daily, # 90 tablet, 2 Refills, Maintenance, 02/27/23 11:54:00 EDT, [facility], 181, cm, 01/02/23 13:54:00 EST, Height [...] 03/15/23 9:56:00 EDT, Route to Pharmacy Electronically, [facility], 181, cm, 01/02/23 13:54:00 EST, Height Start Date: 03/15/23 Status: Ordered metFORMIN 1000 mg oral tablet 1 tablet, By Mouth, 2 times a day, # 60 tablet, 5 Refills, Maintenance, 05/30/23 11:36:00 EDT, [facility], 180.3, cm, 04/10/23 15:18:00 EDT, Height [...] 15 mL, 5 Refills, 12/27/22 14:29:00 EST, [facility], 181, cm, 09... Start Date: 12/27/22 Status: Ordered PEN NEEDLES [id number] PEN NEEDLES [id number], See Instructions, # 200 each, Refills 5, [...] Replace Required Details, Route to Pharmacy Electronically, [facility], 180.3, cm, 04/10/23 15:18:... Start Date: [...] Team Personnel Name: Vandana Gibbs RN [facility] RN Member Role: Primary Care Nurse Name: Rio ROBISON, Ginger Position[facility] Physician - Primary Care Member Role: PCP Address: Address: [address] [place] [address]- Care Team Related Persons Name: MARGARET RAMÍREZ Address: home [address] [facility] [place] [address] Name: REINA RAMÍREZ Address: home [address] [place] [address] Name: LUZ DE LA CRUZ
--- OUTSIDE RECORDS SUMMARY | 2024-03-02 18:40 | XMS_ITS | Continuity of Care Document ---
Author Organization [facility] Adult Address [address] [place] [address]- Care Team Providers Care Police Lieutenant Precinct Name Role Phone Rio ROBISON, Ginger Primary Care Physician Encounter [facility] Date(s): 06/27/21 - 07/27/21 [facility] Adult [address] [place] [address]- Allergies, Adverse Reactions, Alerts Substance Reaction Severity Status amoxicillin Active sulfa drugs Active Immunizations Given and Recorded Vaccine Date Status Refusal Reason influenza virus vaccine, inactivated 1 09/24/19 Gi mitch influenza virus vaccine, inactivated 2 08/06/17 Gi mitch influenza virus vaccine, inactivated 11/02/15 Give n pneumococcal 23-valent vaccine 03/01/15 Given tetanus/diphtheria/pertussis, acel(Tdap) 03/01/15 Given 1Result Comment: [facility] [id number] 2Result Comment: [facility] [id number] Medications albuterol 0.083% inhalation solution 3 mL = 2.5 mg, Inhalation, Every 6 hours, PRN for wheezing, DX COPD, # 60 each, 3 Refills, Maintenance, 10/21/20 16:57:00 EST, Solution, [facility], Partial fill upon patient request if theprescription is for a schedule II opioid drug., 181... Start Date: 10/21/20 Status: Ordered albuterol CFC free 90 mcg/inh inhalation aerosol 2, puffs, Inhalation, 4 times a day, PRN, # 18 Gm, Refills 11, Tot. Refills 11, Maintenance, 01/12/21 15:28:00 EST, Aerosol, Route to Pharmacy Electronically, NCPDP_[id number], [facility], 181, cm, 01/04/21 15:28:00 EST, Height [...] 11 Refills, Maintenance, 01/07/22 15:29:00 EST, Powder, [facility], Partial fill upon patient request if the prescription is for a schedule II opioid drug., 1 puffs Inhalation Daily,x30 days, 181, cm, 09... Start Date: 01/07/22 Stop Date: 01/02/23 Status: Ordered Anoro Ellipta 62.5 mcg-25 mcg/inh inhalation powder 1 puffs, Inhalation, Daily, for 30 days, # 1 each, 11 Refills, Hard Stop 01/07/22 15:29:00 EST, 01/12/21 15:29:00 EST, Powder, [facility], Partial fill upon patient request if the prescription is for a schedule II opioid drug., 181, cm, 12/13... Start Date: 01/12/21 Stop Date: 01/07/22 Status: Ordered atenolol 50 mg oral tablet See Instructions, TAKE 1/2 OF A TABLET BY MOUTH DAILY, # 15 tablet, Refills 5, Tot. Refills 5, Maintenance, 06/15/21 15:00:00 EDT, Instructions Replace Required Details, Route to Pharmacy Electronically, [facility], 181, cm, 02/06/21 11:06:0... Start Date: 06/15/21 Status: Ordered atorvastatin 40 mg oral tablet 1 tablet = 40 mg, By Mouth, Daily, # 90 tablet, 1 Refills, Maintenance, 03/07/21 13:56:00 EDT, Tablet, [facility], 181, cm, 02/06/21 11:06:00 EDT, Height [...] Date: 12/09/14 Status: Ordered COMFORT EZ MIS [id number] COMFORT EZ MIS [id number], See Instructions, # 100 each, Refills 5, [...] 10/09/18 15:47:31 EST, Route to Pharmacy Electronically, [id number], DENNISE Ure[facility]amp; [facility] Start Date: [...] tablet, 0 Refills, Maintenance, 05/31/21 16:25:00 EDT, [facility], 181, cm, 02/06/21 11:06:00 EDT, Height Start Date: 05/31/21 Status: Ordered ibuprofen 600 mg oral tablet 600 mg, 1, tablet, By Mouth, Every 6 hours, PRN, # 120 tablet, Refills 0, Tot. Refills 0, Maintenance, Pain, 04/04/21 16:38:00 EDT, Route to Pharmacy Electronically, [facility], 181, cm, 02/06/21 11:06:00 EDT, Height Start Date: 04/04/21 Status: Ordered insulin lispro 100 u/ml subcutaneous injection See Instructions, SLIDING SCALE glucose insulin 110-150=0units 151-200=2un 201- 250=6un 251-300=8un 301-350=10units >350=12un and call PCP with BREAKFAST, LUNCH, AND DINNER, # 15 mL, 0 Refills, Maintenance, 06/27/21 15:30:00 EDT, [facility]... Start Date: 06/27/21 Status: Ordered Klonopin 1 mg oral tablet [...] 5 Refills, Soft Stop, 10/25/20 9:50:00 EST, [facility], 181, cm, 10/21/20 11:47:00 EST, Height Start Date: 10/25/20 Status: Ordered levothyroxine 150 mcg (0.15 mg) oral tablet 1 tablet = 150 mcg, By Mouth, Daily, # 30 tablet, 2 Refills, Maintenance, 06/07/21 11:27:00 EDT, Tablet, [facility], 181, cm, 02/06/21 11:06:00 EDT, Height Start Date: 06/07/21 Status: Ordered lithium 300 mg oral tablet [...] 12/28/20 15:39:00 EST, Route to Pharmacy Electronically, [facility], 181, cm, 10/21/20 11:47:00 EST, Height Start Date: 2/17/21 Status: Ordered metFORMIN 1000 mg oral tablet 1 tablet = 1,000 mg, By Mouth, 2 times a day, # 60 tablet, 5 Refills, Maintenance, 04/27/21 11:14:00 EDT, [facility], 181, cm, 02/06/21 11:06:00 EDT, Height Start Date: 04/27/21 Status: Ordered Nebulizer/Compressor See Instructions, PRN, # 1 each, Maintenance, Wheezing/Shortness of Breath, Use with albuterol solution q6h Dx: COPD (J44.9), 10/21/20 14:33:00 EST, Supply Start Date: 10/21/20 Status: Ordered NovoLOG FlexPen 100 units/mL injectable solution See Instructions, INJECT THREE TIMES DAILY WITH MEALS PER SCALE 110-150=0UNITS; 151-200=2UN; 201-250=6UN; 251-300=8UN; 301-350=10UNITS; >350=12UN AND CALL PCP, # 15 mL, 0 Refills, [facility], 181, cm, 07/18/21 11:27:00 EDT, Height Start Date: 07/20/21 Status: Ordered Pen [place], 30 G x 8 mm BD Ultra Fine II See Instructions, # 100 each, Refills 3, Tot. Refills 3, Maintenance, for use w levemir flex pen use as directed for Type 1 Diabetes Mellitus, 06/27/21 12:50:00 EDT, [facility], 181, cm, 02/06/21 11:06:00 EDT, Height Start Date: 06/27/21 Stop Date: 10/25/21 Status: Ordered Prolixin DECANOATE Inj = 25 mg, Intramuscular, Every 21 days, 0 Refills, Maintenance, 01/19/19 14:36:12 EDT Start Date: 01/19/19 Status: Ordered tamsulosin 0.4 mg oral capsule 1, capsule, By Mouth, Daily, # 30 capsule, Refills 10, Tot. Refills 0, Maintenance, 06/08/21 16:19:00 EDT, Route to Pharmacy Electronically, [facility], 181, cm, 02/06/21 11:06:00 EDT, Height [...]
--- OUTSIDE RECORDS SUMMARY | 2024-03-02 18:40 | XMS_ITS | Continuity of Care Document ---
Author Organization [facility] Adult Address [address] [place] [address]- Care Team Providers Care Drupal Php Developer Name Role Phone Rio ROBISON, Ginger Primary Care Physician Encounter [facility] [place] Date(s): 08/04/20 - 11/27/20 [facility] Adult [address] [place] [address]- Attending Physician: Ginger Pate MD Allergies, Adverse Reactions, Alerts Substance Reaction Severity Status amoxicillin Active sulfa drugs Active Immunizations Given and Recorded Vaccine Date Status Refusal Reason influenza virus vaccine, inactivated 1 09/24/19 Gi mitch influenza virus vaccine, inactivated 2 08/06/17 Gi mitch influenza virus vaccine, inactivated 11/02/15 Give n pneumococcal 23-valent vaccine 03/01/15 Given tetanus/diphtheria/pertussis, acel(Tdap) 03/01/15 Given 1Result Comment: [facility] [id number] 2Result Comment: [facility] [id number] Medications Advair Diskus 250 mcg-50 mcg inhalation powder 1, puffs, Inhalation, Every 12 hours, rinse mouth and throat after use, # 28 each, Refills 6, Tot. Refills 6, Maintenance, 10/21/20 13:08:00 EST, Route to Pharmacy Electronically, NCPDP_[id number], [facility], please hold for when symbicort... Start Date: 10/21/20 Stop Date: 05/19/21 Status: Ordered albuterol 0.083% inhalation solution 3 mL = 2.5 mg, Inhalation, Every 6 hours, PRN for wheezing, DX COPD, # 60 each, 3 Refills, Maintenance, 10/21/20 16:57:00 EST, Solution, [facility], Partial fill upon patient request if [...] 10/31/20 9:30:00 EST, Route to Pharmacy Electronically, [facility], Rx resent from 05/11/19., 181, cm, 10/21/20 11:47:00 EST, Height Start Date: 10/31/20 Status: Ordered atorvastatin 40 mg oral tablet 1 tablet = 40 mg, By Mouth, Daily, # 90 tablet, 1 Refills, Maintenance, 07/26/20 12:07:00 EDT, Tablet, [facility], 181, cm, 12/09/19 15:01:00 EST, Height, [...] 10/09/18 15:47:31 EST, Route to Pharmacy Electronically, [id number], DENN[facility] Ure[facility]; [facility] Start Date: [...] tablet, 0 Refills, Maintenance, 10/24/20 10:05:00 EST, [facility], 181, cm, 10/21/20 11:47:00 EST, Height Start Date: 10/24/20 Status: Ordered ibuprofen 600 mg oral tablet 600 mg, 1, tablet, By Mouth, Every 6 hours, PRN, # 120 tablet, Refills 0, Tot. Refills 0, Maintenance, Pain, 01/08/20 15:02:00 EST, Route to Pharmacy Electronically, [facility], 181, cm, 12/09/19 15:01:00 EST, Height, 100.6, kg, 04/07/18 20:... Start Date: 01/08/20 Status: Ordered Incruse Ellipta 62.5 mcg/inh inhalation powder 1 each, Inhalation, Every 24 hours, doses should be taken at least 24 hours apart, # 1 each, 11 Refills, Maintenance, 10/25/20 15:07:00 EST, Powder, [facility], Partial fill upon patient request if [...] 5 Refills, Soft Stop, 10/25/20 9:50:00 EST, [facility], 181, cm, 10/21/20 11:47:00 EST, Height Start Date: 10/25/20 Status: Ordered levothyroxine 150 mcg (0.15 mg) oral tablet 1 tablet = 150 mcg, By Mouth, Daily, # 30 tablet, 5 Refills, Maintenance, 11/08/20 11:44:00 EST, Tablet, [facility], 181, cm, 10/21/20 11:47:00 EST, Height [...] 05/24/20 13:38:00 EDT, Route to Pharmacy Electronically, [facility], 181, cm, 12/09/19 15:01:00 EST, Height, Dry Weight Start Date: 05/24/20 Status: Ordered metFORMIN 1000 mg oral tablet 1 tablet = 1,000 mg, By Mouth, 2 times a day, # 60 tablet, 5 Refills, Maintenance, 11/01/20 9:36:00EST, [facility], 181, cm, 10/21/20 11:47:00 EST, Height [...] 12/13/20 13:20:00 EST, 11/01/20 13:20:00 EST, Patch, [facility], Partial fill upon patient request if the prescriptionis for a schedule II opioid drug., 1 patch Topicall... Start Date: 11/01/20 Stop Date: 12/13/20 Status: Ordered Pen [place], 30 G x 8 mm BD Ultra [...] 12:55:00 EST, Aerosol, Route to Pharmacy Electronically, NCPDP_[id number], [facility], 181, cm, 08/03/20 9:1... Start Date: 09/26/20 Stop Date: 03/25/21 Status: Ordered ProAir HFA 90 mcg/inh inhalation aerosol with adapter 2, puffs, Inhalation, Every 6 hours, PRN, use with spacer chamber, # 1 each, Refills 5, Tot. Refills 5, Maintenance, 03/25/21 12:55:00 EDT, Aerosol, Route to Pharmacy Electronically, NCPDP_[id number], [facility], 181, cm, 10/21/20 11:47:00 E... Start Date: 03/25/21 Stop Date: 09/21/21 Status: Ordered Prolixin DECANOATE Inj = 25 mg, Intramuscular, Every 21 days, 0 Refills, Maintenance, 01/19/19 14:36:12 EDT Start Date: 01/19/19 Status: Ordered tamsulosin 0.4 mg oral capsule 1, capsule, By Mouth, Daily, # 30 capsule, Refills 11, Tot. Refills 0, Maintenance, 05/09/20 8:55:00 EDT, Route to Pharmacy Electronically, [facility], 181, cm, 12/09/19 15:01:00 EST, Height Start Date: 05/09/20 Status: Ordered Viagra 50 mg oral tablet 1 tablet = 50 mg, By Mouth, Daily, PRN as needed for erectile dysfunction, 1 hour before sexual activity, # 5 tablet, 0 Refills, Maintenance, 12/09/19 15:44:00 EST, Tablet, [facility], 181,cm, 12/09/19 15:01:00 EST, Height, 100.6, [...]
--- OUTSIDE RECORDS SUMMARY | 2024-03-02 18:40 | XMS_ITS | Continuity of Care Document ---
Author Organization [facility] Adult Address [address] [place] [address]- Care Team Providers Care Paradichlorobenzene Tender Name Role Phone Rio ROBISON, [place] Primary Care Physician Encounter [facility] [place] Date(s): 10/21/20 - 10/28/20 [facility] Adult [address] [place] [address]- Encounter Diagnosis COPD exacerbation(Discharge Diagnosis) - 10/21/20 Pneumonia(Discharge Diagnosis) - 10/21/20 Requires oxygen therapy(Discharge Diagnosis) - 10/21/20 COPD (chronic obstructive pulmonary disease)(Discharge Diagnosis) - 10/21/20 Attending Physician: Not on Staff, Attending MD Allergies, Adverse Reactions, Alerts Substance Reaction Severity Status amoxicillin Active sulfa drugs Active Immunizations Given and Recorded Vaccine Date Status Refusal Reason influenza virus vaccine, inactivated 1 09/24/19 Gi mitch influenza virus vaccine, inactivated 2 08/06/17 Gi mitch influenza virus vaccine, inactivated 11/02/15 Give n pneumococcal 23-valent vaccine 03/01/15 Given tetanus/diphtheria/pertussis, acel(Tdap) 03/01/15 Given 1Result Comment: [facility] [id number] 2Result Comment: [facility] [id number] Medications Advair Diskus 250 mcg-50 mcg inhalation powder 1, puffs, Inhalation, Every 12 hours, rinse mouth and throat after use, # 28 each, Refills 6, Tot. Refills 6, Maintenance, 10/21/20 13:08:00 EST, Route to Pharmacy Electronically, NCPDP_[id number], [facility], please hold for when symbicort... Start Date: 10/21/20 Stop Date: 05/19/21 Status: Ordered albuterol 0.083% inhalation solution 3 mL = 2.5 mg, Inhalation, Every 6 hours, PRN for wheezing, DX COPD, # 60 each, 3 Refills, Maintenance, 10/21/20 16:57:00 EST, Solution, [facility], Partial fill upon patient request if [...] 04/22/20 9:58:00 EDT, Route to Pharmacy Electronically, [facility], Rx resent from 05/11/19., 181, cm, 12/09/19 15:01:00 EST, Height, Dry Weight Start Date: 04/22/20 Status: Ordered atorvastatin 40 mg oral tablet 1 tablet = 40 mg, By Mouth, Daily, # 90 tablet, 1 Refills, Maintenance, 07/26/20 12:07:00 EDT, Tablet, [facility], 181, cm, 12/09/19 15:01:00 EST, Height, [...] Refills, Maintenance, 12/09/14 9:33:29 EST Start Date: 1/29/15 Status: Ordered Depakote 250 mg oral enteric [...] 10/09/18 15:47:31 EST, Route to Pharmacy Electronically, [id number], DENNISE Ure[facility]amp; [facility] Start Date: [...] tablet, 0 Refills, Maintenance, 10/24/20 10:05:00 EST, [facility], 181, cm, 10/21/20 11:47:00 EST, Height Start Date: 10/24/20 Status: Ordered ibuprofen 600 mg oral tablet 600 mg, 1, tablet, By Mouth, Every 6 hours, PRN, # 120 tablet, Refills 0, Tot. Refills 0, Maintenance, Pain, 01/08/20 15:02:00 EST, Route to Pharmacy Electronically, [facility], 181, cm, 12/09/19 15:01:00 EST, Height, 100.6, kg, 04/07/18 20:... Start Date: 01/08/20 Status: Ordered Incruse Ellipta 62.5 mcg/inh inhalation powder 1 each, Inhalation, Every 24 hours, doses should be taken at least 24 hours apart, # 1 each, 11 Refills, Maintenance, 10/25/20 15:07:00 EST, Powder, [facility], Partial fill upon patient request if [...] 5 Refills, Soft Stop, 10/25/20 9:50:00 EST, [facility], 181, cm, 10/21/20 11:47:00 EST, Height Start Date: 10/25/20 Status: Ordered levothyroxine 150 mcg (0.15 mg) oral tablet 1 tablet = 150 mcg, By Mouth, Daily, # 30 tablet, 5 Refills, Maintenance, 04/04/20 20:54:00 EDT, Tablet, [facility], 181, cm, 12/09/19 15:01:00 EST, Height, 100.6, kg, 04/07/18 20:14:00 EDT, Dry Weight Start Date: 04/04/20 Status: Ordered lithium 300 mg oral tablet [...] 05/24/20 13:38:00 EDT, Route to Pharmacy Electronically, [facility], 181, cm, 12/09/19 15:01:00 EST, Height, Dry Weight Start Date: 05/24/20 Status: Ordered metFORMIN 1000 mg oral tablet 1 tablet = 1,000 mg, By Mouth, 2 times a day, # 60 tablet, 5 Refills, Maintenance, 04/29/20 12:49:00 EDT, [facility], 181, cm, 12/09/19 15:01:00 EST, Height, Dry Weight Start Date: 04/29/20 Status: Ordered Nebulizer/Compressor See Instructions, PRN, # 1 each, Maintenance, Wheezing/Shortness of Breath, Use with albuterol solution q6h Dx: COPD (J44.9), 10/21/20 14:33:00 EST, Supply Start Date: 10/21/20 Status: Ordered Pen [place], 30 G x 8 mm BD Ultra [...] 12:55:00 EST, Aerosol, Route to Pharmacy Electronically, NCPDP_[id number], [facility], 181, cm, 08/03/20 9:1... Start Date: 09/26/20 Stop Date: 03/25/21 Status: Ordered ProAir HFA 90 mcg/inh inhalation aerosol with adapter 2, puffs, Inhalation, Every 6 hours, PRN, use with spacer chamber, # 1 each, Refills 5, Tot. Refills 5, Maintenance, 03/25/21 12:55:00 EDT, Aerosol, Route to Pharmacy Electronically, NCPDP_[id number], [facility], 181, cm, 10/21/20 11:47:00 E... Start Date: 03/25/21 Stop Date: 09/21/21 Status: Ordered Prolixin DECANOATE Inj = 25 mg, Intramuscular, Every 21 days, 0 Refills, Maintenance, 01/19/19 14:36:12 EDT Start Date: 01/19/19 Status: Ordered tamsulosin 0.4 mg oral capsule 1, capsule, By Mouth, Daily, # 30 capsule, Refills 11, Tot. Refills 0, Maintenance, 05/09/20 8:55:00 EDT, Route to Pharmacy Electronically, [facility], 181, cm, 12/09/19 15:01:00 EST, Height Start Date: 05/09/20 Status: Ordered Viagra 50 mg oral tablet 1 tablet = 50 mg, By Mouth, Daily, PRN as needed for erectile dysfunction, 1 hour before sexual activity, # 5 tablet, 0 Refills, Maintenance, 12/09/19 15:44:00 EST, Tablet, [facility], 181,cm, 12/09/19 15:01:00 EST, Height, 100.6, [...] Effective Dates Health Status Clinical Service Informant COPD exacerbation Discharge Diagnosis 10/21/20 Pneumonia Discharge Diagnosis 10/21/20 Requires oxygen therapy Discharge Diagnosis 10/21/20 COPD (chronic obstructive pulmonary disease) Discharge Diagnosis 10/21/20 Vital Signs Most recent to oldest [Reference Range]: 1 Height 181 cm (10/21/20 11:47 AM) Weight 95.45 kg (10/21/20 11:47 AM) Body Mass Index [18.5-24.99] 29.14 *H* (10/21/20 11:47 AM) Social History Social History Type Response Smoking Status Former smoker, quit more than 30 days ago entered on: 10/21/20 Sex
--- OUTSIDE RECORDS SUMMARY | 2024-03-02 18:40 | XMS_ITS | Continuity of Care Document ---
Author Organization [facility] Adult Address [address] [place] [address]- Care Team Providers Care Extruder Operator Horizontal Name Role Phone Rio ROBISON, Ginger Primary Care Physician Encounter [facility] [place] Date(s): 11/30/23 - 12/30/[address] [facility] Adult [address] [place] [id number]- Allergies, Adverse Reactions, Alerts Substance Reaction Severity [...] (Td) 02/03/13 Recorded 1Result Comment: [facility] [id number] 2Result Comment: [facility] [id number] Medications albuterol 0.083% inhalation solution 3 mL = 2.5 mg, Inhalation, Every 6 hours, PRN for wheezing, DX COPD, # 60 each, 3 Refills, Maintenance, 10/21/20 16:57:00 EST, Solution, [facility], Partial fill upon patient request if theprescription is for a schedule II opioid drug., 181... Start Date: 10/21/20 Status: Ordered albuterol CFC free 90 mcg/inh inhalation aerosol 2, puffs, Inhalation, 4 times a day, PRN, # 1 each, Refills 11, Tot. Refills 11, Maintenance, 12/30/23 15:02:00 EST, Aerosol, Route to Pharmacy Electronically, CAPDP_[id number], [facility], cm, 12/30/23 12:59:00 EST, Height Start [...] 09/04/23 13:27:00 EDT, Route to Pharmacy Electronically, [facility], 183, cm, 06/27/23 10:36:00 EDT, Height Start Date: 09/04/23 Stop Date: 03/02/24 Status: Ordered atorvastatin 40 mg oral tablet 1 tablet = 40 mg, By Mouth, Daily, # 90 tablet, 2 Refills, Maintenance, 09/19/23 8:50:00 EST, [facility], 183, cm, 09/10/23 14:55:00 EDT, Height [...] Date: 06/27/23 Status: Ordered COMFORT EZ MIS [id number] COMFORT EZ MIS [id number], See Instructions, # 100 each, Refills 5, Tot. Refills 5, Maintenance, USE TO INJECT INSULIN BID DX E11.9, 02/22/21 11:54:00 EDT, Supply, 181, cm, 02/06/21 11:06:00 EDT, Height Start Date: 02/22/21 Status: Ordered COMFORT EZ MIS [id number] COMFORT EZ MIS [id number], See Instructions, # 100 each, 2 Refills, [...] Gm, 11 Refills, Maintenance, 07/23/22 11:21:00 EDT, [place], [facility], Partial fill upon patient request if the prescription is for a schedule II opioid drug., 1 sprays Nares, Both 2 times a day, 18... Start Date: 07/23/22 Status: Ordered fluticasone/umeclidinium/vilanterol 100 mcg-62.5 mcg-25 mcg/inh inhalation powder 1 puffs, Inhalation, Daily, # 1 each, 11 Refills, Maintenance, 01/02/23 14:26:00 EST, [facility], Partial fill upon patient request if [...] tablet, 1 Refills, Maintenance, 11/01/23 12:30:00 EST, [facility], 183, cm, 09/10/23 14:55:00 EDT, Height Start Date: 11/01/23 Status: Ordered [place] 100% oral powder for reconstitution = 7.5 Gm, By Mouth, 3 times a day, # 500 Gm, 0 Refills, Maintenance, 09/10/23 15:26:00 EDT, REC Powder, [facility], Partial fill upon patient request if the prescription is for a schedule II opioid drug., 183, cm, 09/10/23 14:55:00 EDT, Height Start Date: 09/10/23 Status: Ordered Levemir FlexTouch 100 units/mL subcutaneous solution See Instructions, INJECT 45 UNITS SUBCUTANEOUSLY EVERY MORNING AND INJECT 35 UNITS SUBCUTANEOUSLY EVERY NIGHT AT BEDTIME, # 30 mL, 3 Refills, Maintenance, 09/25/23 8:40:00 EST, [facility], 183, cm, 09/10/23 14:55:00 EDT, Height Start Date: 09/25/23 Status: Ordered levothyroxine 150 mcg (0.15 mg) oral tablet 1 tablet, By Mouth, Daily, # 90 tablet, 2 Refills, Maintenance, 02/27/23 11:54:00 EDT, [facility], 181, cm, 01/02/23 13:54:00 EST, Height [...] 12/30/23 9:18:00 EST, Route to Pharmacy Electronically, [facility], 183, cm, 09/10/23 14:55:00 EDT, Height Start Date: 12/30/23 Status: Ordered metFORMIN 1000 mg oral tablet 1 tablet, By Mouth, 2 times a day, # 60 tablet, 5 Refills, Maintenance, 05/30/23 11:36:00 EDT, [facility], 180.3, cm, 04/10/23 15:18:00 EDT, Height [...] 15 mL, 5 Refills, 12/27/22 14:29:00 EST, [facility], 181, cm, 09... Start Date: 12/27/22 Status: Ordered PEG-3350 with Electrolytes Lemon (Eqv-GoLYTELY) oral powder for reconstitution See Instructions, Per GI office instructions, # 4,000 mL, 0 Refills, Maintenance, 12/19/23 10:42:00EST, [facility], Partial fill upon patient request if the prescription is for a schedule II opioid drug., Per GI office instructions, 183, cm... Start Date: 12/19/23 Status: Ordered PEN NEEDLES [id number] PEN NEEDLES [id number], See Instructions, # 200 each, Refills 5, [...] Replace Required Details, Route to Pharmacy Electronically, [facility], 183, cm, 09/10/23 14:55:00... Start Date: [...] Care Member Role: PCP Address: Address: [address] [place] [address] [address] [place] [address]- Care Team Related Persons Name: MARGARET RAMÍREZ Address: home [address]. [place], [place] Name: REINA RAMÍREZ Address: home [address] [place], [place] Name: LUZ DE LA CRUZ
--- OUTSIDE RECORDS SUMMARY | 2024-03-02 18:40 | XMS_ITS | Continuity of Care Document ---
Author Organization [facility] ter Address [address] [place] [address]- Care Team Providers Care Managing Consultant Name Role Phone Rio ROBISON, Ginger Primary Care Physician [place] [facility] [place] - 01/14/[address] [address] Attending Physician: Kingston Avendano MD Admitting Physician: Kingston Avendano MD Referring Physician: Mohit Hawthorne MD Allergies, Adverse Reactions, Alerts Substance Reaction Severity Status amoxicillin Active sulfa drugs Active Immunizations Given and Recorded Vaccine Date Status Refusal Reason influenza virus vaccine, inactivated 1 09/24/19 Gi mitch influenza virus vaccine, inactivated 2 08/06/17 Gi mitch influenza virus vaccine, inactivated 11/02/15 Give n pneumococcal 23-valent vaccine 03/01/15 Given tetanus/diphtheria/pertussis, acel(Tdap) 03/01/15 Given 1Result Comment: [facility] [id number] 2Result Comment: [facility] [phone] Medications Advair Diskus 250 mcg-50 mcg inhalation powder 1, puffs, Inhalation, Every 12 hours, rinse mouth and throat after use, # 28 each, Refills 6, Tot. Refills 6, Maintenance, 10/21/20 13:08:00 EST, Route to Pharmacy Electronically, NCPDP_[id number], [facility], please hold for when symbicort... Start Date: 10/21/20 Stop Date: 05/19/21 Status: Ordered albuterol 0.083% inhalation solution 3 mL = 2.5 mg, Inhalation, Every 6 hours, PRN for wheezing, DX COPD, # 60 each, 3 Refills, Maintenance, 10/21/20 16:57:00 EST, Solution, [facility], Partial fill upon patient request if theprescription is for a schedule II opioid drug., 181... Start Date: 10/21/20 Status: Ordered albuterol CFC free 90 mcg/inh inhalation aerosol 2, puffs, Inhalation, 4 times a day, PRN, # 18 Gm, Refills 11, Tot. Refills 11, Maintenance, 01/12/21 15:28:00 EST, Aerosol, Route to Pharmacy Electronically, AZPDP_[id number], [facility], 181, cm, 01/04/21 15:28:00 EST, Height [...] 11 Refills, Maintenance, 01/12/21 15:29:00 EST, Powder, [facility], Partial fill upon patient request if the prescription is for a schedule II opioid drug., 1 puffs Inhalation Daily,x30 days, 181, cm, 02... Start Date: 01/12/21 Stop Date: 01/07/22 Status: Ordered atenolol 50 mg oral tablet 25 mg, 0.5, tablet, By Mouth, Daily, # 15 tablet, Refills 1, Tot. Refills 1, Maintenance, 10/31/20 9:30:00 EST, Route to Pharmacy Electronically, [facility], Rx resent from 05/11/19., 181, cm, 10/21/20 11:47:00 EST, Height Start Date: 10/31/20 Status: Ordered atorvastatin 40 mg oral tablet 1 tablet = 40 mg, By Mouth, Daily, # 90 tablet, 1 Refills, Maintenance, 07/26/20 12:07:00 EDT, Tablet, [facility], 181, cm, 12/09/19 15:01:00 EST, Height, [...] 10/09/18 15:47:31 EST, Route to Pharmacy Electronically, [id number], DENNISE Ure[facility]; [facility] Start Date: [...] tablet, 0 Refills, Maintenance, 10/24/20 10:05:00 EST, [facility], 181, cm, 10/21/20 11:47:00 EST, Height Start Date: 10/24/20 Status: Ordered ibuprofen 600 mg oral tablet 600 mg, 1, tablet, By Mouth, Every 6 hours, PRN, # 120 tablet, Refills 0, Tot. Refills 0, Maintenance, Pain, 01/12/21 9:14:00 EST, Route to Pharmacy Electronically, [facility], 181, cm, 01/04/21 15:28:00 EST, Height Start Date: 01/12/21 Status: Ordered insulin lispro 100 u/ml subcutaneous injection See Instructions, SLIDING SCALE glucose insulin 110-150=0units 151-200=2un 201- 250=6un 251-300=8un 301-350=10units >350=12un and call PCP with BREAKFAST, LUNCH, AND DINNER, # 15 mL, 0 Refills, Maintenance, 10/25/20 12:02:00 EST, [place]... Start Date: 10/25/20 Status: Ordered Klonopin 1 [...] 5 Refills, Soft Stop, 10/25/20 9:50:00 EST, [facility], 181, cm, 10/21/20 11:47:00 EST, Height Start Date: 10/25/20 Status: Ordered levothyroxine 150 mcg (0.15 mg) oral tablet 1 tablet = 150 mcg, By Mouth, Daily, # 30 tablet, 5 Refills, Maintenance, 11/08/20 11:44:00 EST, Tablet, [facility], 181, cm, 10/21/20 11:47:00 EST, Height [...] 12/28/20 15:39:00 EST, Route to Pharmacy Electronically, [facility], 181, cm, 10/21/20 11:47:00 EST, Height Start Date: 12/28/20 Status: Ordered metFORMIN 1000 mg oral tablet 1 tablet = 1,000 mg, By Mouth, 2 times a day, # 60 tablet, 5 Refills, Maintenance, 11/01/20 9:36:00EST, [facility], 181, cm, 10/21/20 11:47:00 EST, Height Start Date: 11/01/20 Status: Ordered Nebulizer/Compressor See Instructions, PRN, # 1 each, Maintenance, Wheezing/Shortness of Breath, Use with albuterol solution q6h Dx: COPD (J44.9), 10/21/20 14:33:00 EST, Supply Start Date: 10/21/20 Status: Ordered Pen [place], 30 G x 8 mm BD Ultra [...] 12:55:00 EDT, Aerosol, Route to Pharmacy Electronically, NCPDP_[id number], [facility], 181, cm, 10/21/20 11:47:00 E... Start Date: 03/25/21 Stop Date: 09/21/21 Status: Ordered Prolixin DECANOATE Inj = 25 mg, Intramuscular, Every 21 days, 0 Refills, Maintenance, 01/19/19 14:36:12 EDT Start Date: 01/19/19 Status: Ordered tamsulosin 0.4 mg oral capsule 1, capsule, By Mouth, Daily, # 30 capsule, Refills 11, Tot. Refills 0, Maintenance, 05/09/20 8:55:00 EDT, Route to Pharmacy Electronically, [facility], 181, cm, 12/09/19 15:01:00 EST, Height [...]
--- OUTSIDE RECORDS SUMMARY | 2024-03-02 18:40 | XMS_ITS | Continuity of Care Document ---
Author Organization [facility] Adult Address [address] [place] [address]- Care Team Providers Care Machinist Brake Name Role Phone Rio ROBISON, Ginger Primary Care Physician Encounter [facility] [place] Date(s): 08/10/22 - 09/09/22 [facility] [address] [place] [address]- Attending Physician: Admtr, Ar8 Admitting Physician: Admtr, [...] toxoids (Td) 02/03/13 Recorded 1Result Comment: [facility] [id number] 2Result Comment: [facility] [id number] Medications albuterol 0.083% inhalation solution 3 mL = 2.5 mg, Inhalation, Every 6 hours, PRN for wheezing, DX COPD, # 60 each, 3 Refills, Maintenance, 10/21/20 16:57:00 EST, Solution, [facility], Partial fill upon patient request if theprescription is for a schedule II opioid drug., 181... Start Date: 10/21/20 Status: Ordered albuterol CFC free 90 mcg/inh inhalation aerosol 2, puffs, Inhalation, 4 times a day, PRN, # 18 Gm, Refills 11, Tot. Refills 11, Maintenance, 01/12/21 15:28:00 EST, Aerosol, Route to Pharmacy Electronically, NCPDP_[id number], [facility], 181, cm, 01/04/21 15:28:00 EST, Height Start Date: 01/12/21 Stop Date: 01/07/22 Status: Ordered albuterol CFC free 90 mcg/inh inhalation aerosol 2, puffs, Inhalation, 4 times a day, PRN, # 18 Gm, Refills 11, Tot. Refills 11, Maintenance, 01/15/22 11:28:00 EST, Aerosol, Route to Pharmacy Electronically, NCPDP_[id number], [facility], 181, cm, 01/15/22 11:07:00 EST, Height [...] each, 10 Refills, Maintenance, 08/01/22 15:16:00 EDT, [facility], 30, INHALE 1 PUFF BY MOUTH [...] Maintenance, 08/01/22 20:31:00EDT, Route to Pharmacy Electronically, [facility], 181, cm, 07/23/22 10:45:00 EDT, Height Start Date: 08/01/22 Status: Ordered atorvastatin 40 mg oral tablet 1 tablet, By Mouth, Daily, # 90 tablet, 1 Refills, [facility], 181, cm, 01/15/22 11:07:00EST, Height Start [...] Date: 08/11/21 Status: Ordered COMFORT EZ MIS [id number] COMFORT EZ MIS [id number], See Instructions, # 100 each, Refills 5, Tot. Refills 5, Maintenance, USE TO INJECT INSULIN BID DX E11.9, 02/22/21 11:54:00 EDT, Supply, 181, cm, 02/06/21 11:06:00 EDT, Height Start Date: 02/22/21 Status: Ordered COMFORT EZ MIS [id number] COMFORT EZ MIS [id number], See Instructions, # 100 each, 2 Refills, [...] 10/09/18 15:47:31 EST, Route to Pharmacy Electronically, [id number], [facility]re[facility]; [facility] Start Date: [...] Gm, 11 Refills, Maintenance, 07/23/22 11:21:00 EDT, [place], [facility], Partial fill upon patient request if [...] day, # 270 tablet, 1 Refills, Maintenance, 08/31/22 16:25:00 EDT, [facility], 181, cm, 07/23/22 10:45:00 EDT, Height Start Date: 08/31/22 Status: Ordered insulin lispro 100 u/ml subcutaneous [...] 30 mL, 4 Refills, 07/09/22 15:53:00 EDT, [facility], 181, cm, 07/09/22 14:59:00 EDT, Height Start Date: 07/09/22 Status: Ordered levothyroxine 150 mcg (0.15 mg) oral tablet 1 tablet, By Mouth, Daily, # 90 tablet, 1 Refills, Maintenance, 08/01/22 20:32:00 EDT, [facility], 181, cm, 07/23/22 10:45:00 EDT, Height [...] tablet, Refills 5, Route to Pharmacy Electronically, [facility], 181, cm, 01/15/22 11:07:00 EST, Height Start Date: 02/01/22 Status: Ordered metFORMIN 1000 mg oral tablet 1 tablet, By Mouth, 2 times a day, # 60 tablet, 5 Refills, [facility], 181, cm, 01/15/22 11:07:00 EST, Height [...] CALL PCP, # 15 mL, 5 Refills, [facility], 181, cm, 01/15/22 11:07:00 EST, He... Start Date: 03/29/22 Status: Ordered Pen [place], 30 G x 8 mm BD Ultra [...] 07/09/22 15:46:00 EDT, Route to Pharmacy Electronically, [facility], 181, cm, 07/09/22 14:59:00 EDT, Height [...] Name: Ginger Pate MD Address: Address: [address] [facility] [address] [place], [place] [address]
--- OUTSIDE RECORDS SUMMARY | 2024-03-02 18:40 | XMS_ITS | Continuity of Care Document ---
Author Organization [facility] Adult Address [address] [place] [address]- Care Team Providers Care Loft Worker Name Role Phone Rio ROBISON, Ginger Primary Care Physician Encounter [facility] [place] Date(s): 11/08/20 - 12/08/20 [facility] [address] [place] [address]- Allergies, Adverse Reactions, Alerts Substance Reaction Severity Status amoxicillin Active sulfa drugs Active Immunizations Given and Recorded Vaccine Date Status Refusal Reason influenza virus vaccine, inactivated 1 09/24/19 Gi mitch influenza virus vaccine, inactivated 2 08/06/17 Gi mitch influenza virus vaccine, inactivated 11/02/15 Give n pneumococcal 23-valent vaccine 03/01/15 Given tetanus/diphtheria/pertussis, acel(Tdap) 03/01/15 Given 1Result Comment: [facility] [id number] 2Result Comment: [facility] [phone] Medications Advair Diskus 250 mcg-50 mcg inhalation powder 1, puffs, Inhalation, Every 12 hours, rinse mouth and throat after use, # 28 each, Refills 6, Tot. Refills 6, Maintenance, 10/21/20 13:08:00 EST, Route to Pharmacy Electronically, NCPDP_[id number], [facility], please hold for when symbicort... Start Date: 10/21/20 Stop Date: 05/19/21 Status: Ordered albuterol 0.083% inhalation solution 3 mL = 2.5 mg, Inhalation, Every 6 hours, PRN for wheezing, DX COPD, # 60 each, 3 Refills, Maintenance, 10/21/20 16:57:00 EST, Solution, [facility], Partial fill upon patient request if theprescription is for a schedule II opioid drug., 181... Start Date: 10/21/20 Status: Ordered albuterol CFC free 90 mcg/inh inhalation aerosol 2, puffs, Inhalation, 4 times a day, PRN, # 8.5 Gm, Refills 6, Tot. Refills 6, Maintenance, 11/30/20 15:47:00 EST, Aerosol, Route to Pharmacy Electronically, NCPDP_[id number], [facility], 181, cm, 10/21/20 11:47:00 EST, Height Start Date: 11/30/20 Stop Date: 06/28/21 Status: Ordered Alcohol Pads See Instructions, # [...] 10/31/20 9:30:00 EST, Route to Pharmacy Electronically, [facility], Rx resent from 05/11/19., 181, cm, 10/21/20 11:47:00 EST, Height Start Date: 10/31/20 Status: Ordered atorvastatin 40 mg oral tablet 1 tablet = 40 mg, By Mouth, Daily, # 90 tablet, 1 Refills, Maintenance, 07/26/20 12:07:00 EDT, Tablet, [facility], 181, cm, 12/09/19 15:01:00 EST, Height, [...] Maintenance, 06/08/19 15:54:49 EDT, Tablet Start Date: 7/29/19 Status: Ordered Clozaril 100 mg oral tablet [...] 10/09/18 15:47:31 EST, Route to Pharmacy Electronically, [id number], [facility]; [facility] Start Date: [...] tablet, 0 Refills, Maintenance, 10/24/20 10:05:00 EST, [facility], 181, cm, 10/21/20 11:47:00 EST, Height Start Date: 10/24/20 Status: Ordered ibuprofen 600 mg oral tablet 600 mg, 1, tablet, By Mouth, Every 6 hours, PRN, # 120 tablet, Refills 0, Tot. Refills 0, Maintenance, Pain, 01/08/20 15:02:00 EST, Route to Pharmacy Electronically, [facility], 181, cm, 12/09/19 15:01:00 EST, Height, 100.6, kg, 04/07/18 20:... Start Date: 01/08/20 Status: Ordered Incruse Ellipta 62.5 mcg/inh inhalation powder 1 each, Inhalation, Every 24 hours, doses should be taken at least 24 hours apart, # 1 each, 11 Refills, Maintenance, 10/25/20 15:07:00 EST, Powder, [facility], Partial fill upon patient request if [...] 5 Refills, Soft Stop, 10/25/20 9:50:00 EST, [facility], 181, cm, 10/21/20 11:47:00 EST, Height Start Date: 10/25/20 Status: Ordered levothyroxine 150 mcg (0.15 mg) oral tablet 1 tablet = 150 mcg, By Mouth, Daily, # 30 tablet, 5 Refills, Maintenance, 11/08/20 11:44:00 EST, Tablet, [facility], 181, cm, 10/21/20 11:47:00 EST, Height [...] 05/24/20 13:38:00 EDT, Route to Pharmacy Electronically, [facility], 181, cm, 12/09/19 15:01:00 EST, Height, Dry Weight Start Date: 05/24/20 Status: Ordered metFORMIN 1000 mg oral tablet 1 tablet = 1,000 mg, By Mouth, 2 times a day, # 60 tablet, 5 Refills, Maintenance, 11/01/20 9:36:00EST, [facility], 181, cm, 10/21/20 11:47:00 EST, Height [...] 12/13/20 13:20:00 EST, 11/01/20 13:20:00 EST, Patch, [facility], Partial fill upon patient request if the prescriptionis for a schedule II opioid drug., 1 patch Topicall... Start Date: 11/01/20 Stop Date: 12/13/20 Status: Ordered Pen [place], 30 G x 8 mm BD Ultra [...] 12:55:00 EST, Aerosol, Route to Pharmacy Electronically, NCPDP_[id number], [facility], 181, cm, 08/03/20 9:1... Start Date: 09/26/20 Stop Date: 03/25/21 Status: Ordered ProAir HFA 90 mcg/inh inhalation aerosol with adapter 2, puffs, Inhalation, Every 6 hours, PRN, use with spacer chamber, # 1 each, Refills 5, Tot. Refills 5, Maintenance, 03/25/21 12:55:00 EDT, Aerosol, Route to Pharmacy Electronically, NCPDP_[id number], [facility], 181, cm, 10/21/20 11:47:00 E... Start Date: 03/25/21 Stop Date: 09/21/21 Status: Ordered Prolixin DECANOATE Inj = 25 mg, Intramuscular, Every 21 days, 0 Refills, Maintenance, 01/19/19 14:36:12 EDT Start Date: 01/19/19 Status: Ordered tamsulosin 0.4 mg oral capsule 1, capsule, By Mouth, Daily, # 30 capsule, Refills 11, Tot. Refills 0, Maintenance, 05/09/20 8:55:00 EDT, Route to Pharmacy Electronically, [facility], 181, cm, 12/09/19 15:01:00 EST, Height Start Date: 05/09/20 Status: Ordered Viagra 50 mg oral tablet 1 tablet = 50 mg, By Mouth, Daily, PRN as needed for erectile dysfunction, 1 hour before sexual activity, # 5 tablet, 0 Refills, Maintenance, 12/09/19 15:44:00 EST, Tablet, [facility], 181,cm, 12/09/19 15:01:00 EST, Height, 100.6, [...]
--- OUTSIDE RECORDS SUMMARY | 2024-03-02 18:40 | XMS_ITS | Continuity of Care Document ---
Author Organization [facility] Adult Address [address] [place] [address]- Care Team Providers Care Percussion Instructor Name Role Phone Rio ROBISON, Ginger Primary Care Physician Encounter [facility] [place] Date(s): 06/27/23 - 07/27/23 [facility] [address] [place] [address]- Allergies, Adverse Reactions, Alerts Substance Reaction Severity [...] tetanus-diphtheria toxoids (Td) 02/03/13 Recorded 1Result Comment: [facility] [id number] 2Result Comment: [facility] [id number] Medications albuterol 0.083% inhalation solution 3 mL = 2.5 mg, Inhalation, Every 6 hours, PRN for wheezing, DX COPD, # 60 each, 3 Refills, Maintenance, 10/21/20 16:57:00 EST, Solution, [facility], Partial fill upon patient request if theprescription is for a schedule II opioid drug., 181... Start Date: 10/21/20 Status: Ordered albuterol CFC free 90 mcg/inh inhalation aerosol 2, puffs, Inhalation, 4 times a day, PRN, # 18 Gm, Refills 11, Tot. Refills 11, Maintenance, 01/02/23 14:27:00 EST, Aerosol, Route to Pharmacy Electronically, NCPDP_[id number], [facility], 181, cm, 01/02/23 13:54:00 EST, Height [...] Replace Required Details, Route to Pharmacy Electronically, [facility], 181, cm, 01/02/23 13:... Start Date: 01/04/23 Status: Ordered atorvastatin 40 mg oral tablet See Instructions, TAKE 1 TABLET BY MOUTH DAILY, # 30 tablet, 0 Refills, Maintenance, 03/28/23 15:47:00 EDT, [facility], 181, cm, 01/02/23 13:54:00 EST, Height [...] Date: 06/27/23 Status: Ordered COMFORT EZ MIS [id number] COMFORT EZ MIS [id number], See Instructions, # 100 each, Refills 5, Tot. Refills 5, Maintenance, USE TO INJECT INSULIN BID DX E11.9, 02/22/21 11:54:00 EDT, Supply, 181, cm, 02/06/21 11:06:00 EDT, Height Start Date: 02/22/21 Status: Ordered COMFORT EZ MIS [id number] COMFORT EZ MIS [id number], See Instructions, # 100 each, 2 Refills, [...] Gm, 11 Refills, Maintenance, 07/23/22 11:21:00 EDT, [place], [facility], Partial fill upon patient request if the prescription is for a schedule II opioid drug., 1 sprays Nares, Both 2 times a day, 18... Start Date: 07/23/22 Status: Ordered fluticasone/umeclidinium/vilanterol 100 mcg-62.5 mcg-25 mcg/inh inhalation powder 1 puffs, Inhalation, Daily, # 1 each, 11 Refills, Maintenance, 01/02/23 14:26:00 EST, [facility], Partial fill upon patient request if [...] tablet, 1 Refills, Maintenance, 03/28/23 16:39:00 EDT, [facility], 181, cm, 01/02/23 13:54:00 EST, Height Start Date: 03/28/23 Status: Ordered Levemir FlexTouch 100 units/mL subcutaneous solution See Instructions, INJECT 30 UNITS SUBCUTANEOUSLY EVERY NIGHT AT BEDTIME, # 30 mL, 4 Refills, 07/09/22 15:53:00 EDT, [facility], 181, cm, 07/09/22 14:59:00 EDT, Height Start Date: 07/09/22 Status: Ordered levothyroxine 150 mcg (0.15 mg) oral tablet 1 tablet, By Mouth, Daily, # 90 tablet, 2 Refills, Maintenance, 02/27/23 11:54:00 EDT, [facility], 181, cm, 01/02/23 13:54:00 EST, Height [...] 03/15/23 9:56:00 EDT, Route to Pharmacy Electronically, [facility], 181, cm, 01/02/23 13:54:00 EST, Height Start Date: 03/15/23 Status: Ordered metFORMIN 1000 mg oral tablet 1 tablet, By Mouth, 2 times a day, # 60 tablet, 5 Refills, Maintenance, 05/30/23 11:36:00 EDT, [facility], 180.3, cm, 04/10/23 15:18:00 EDT, Height [...] 15 mL, 5 Refills, 12/27/22 14:29:00 EST, [facility], 181, cm, 09... Start Date: 12/27/22 Status: Ordered Pen [place], 30 G x 8 mm BD Ultra [...] Replace Required Details, Route to Pharmacy Electronically, [facility], 180.3, cm, 04/10/23 15:18:... Start Date: [...] Condition Confirmation Course Effective Dates Status H ealt Status Informant BPH (benign prostatic hyperplasia) Confirmed [...] Team Personnel Name: Vandana Gibbs RN Position: S RN Member Role: Primary Care Nurse Name: Ginger Pate MD Position: S Physician - Primary Care Member Role: PCP Address: Address: [address] [place] [address] [address] [place] [address]- Care Team Related Persons Name: MARGARET RAMÍREZ Address: home [address] [facility] [place] [address] Name: REINA RAMÍREZ Address: home [address] [place] [address] Name: LUZ DE LA CRUZ
--- OUTSIDE RECORDS SUMMARY | 2024-03-02 18:40 | XMS_ITS | Continuity of Care Document ---
Author Organization [facility] Adult Address [address] [place] [address]- Care Team Providers Care Strategic Partnership Specialist Name Role Phone Ginger Pate MD Primary Care Physician [place] [facility] 12[place]12[place]19 - 04/10/20 [facility] [address] [place] [address]- [facility] Attending Physician: Ginger Pate MD Allergies, Adverse Reactions, Alerts Substance Reaction Severity Status amoxicillin Active sulfa drugs Active Immunizations Given and Recorded Vaccine Date Status Refusal Reason influenza virus vaccine, inactivated 1 09/24/19 Gi mitch influenza virus vaccine, inactivated 2 08/06/17 Gi mitch influenza virus vaccine, inactivated 11/02/15 Give n pneumococcal 23-valent vaccine 03/01/15 Given tetanus/diphtheria/pertussis, acel(Tdap) 03/01/15 Given 1Result Comment: [facility] [id number] 2Result Comment: [facility] [id number] Medications Advair Diskus 250 mcg-50 mcg inhalation powder 1, puffs, Inhalation, Every 12 hours, # 28 each, Refills 2, Tot. Refills 2, Maintenance, 04/10/18 16:19:35 EDT, Route to Pharmacy Electronically, [id number], [facility], please hold for when symbicort pa expires. Start Date: 04/10/18 Stop Date: 07/09/18 Status: Ordered Alcohol Pads See Instructions, # 200 each, Refills 5, Tot. Refills 5, Maintenance, use when testing glucose and injecting insulin dx e10.9, 05/27/19 10:19:51 EDT, Compound Start Date: 05/27/19 Stop Date: 11/23/19 Status: Ordered atenolol 50 mg oral tablet 50 mg, 1, tablet, By Mouth, 3 times a day, # 270 tablet, Refills 1, Tot. Refills 1, Maintenance, 10/28/19 13:33:00 EST, Route to Pharmacy Electronically, [facility], Rx resent from 05/11/19.,181, cm, 09/24/19 11:48:00 EST, Height, 100.6, kg,... Start Date: 10/28/19 Status: Ordered atorvastatin 40 mg oral tablet 1 tablet = 40 mg, By Mouth, Daily, # 90 tablet, 1 Refills, Maintenance, 01/28/20 12:12:00 EDT, Tablet, [facility], 181, cm, 12/09/19 15:01:00 EST, Height, [...] 10/09/18 15:47:31 EST, Route to Pharmacy Electronically, [id number], DENNISE Ureñaamp; [facility] Start Date: 10/09/18 Status: Ordered Flomax 0.4 mg oral capsule 0.4 mg, 1, capsule, By Mouth, Daily, # 30 capsule, Refills 5, Tot. Refills 5, Maintenance, 208:24:00 EST, Route to Pharmacy Electronically, [facility], 181, cm, 09/24/19 11:48:00 EST, Height, 100.6, kg, 04/07/18 20:14:00 EDT, Dry Weight Start Date: 11/27/19 Stop Date: 05/25/20 Status: Ordered Freestyle Lite Lancets See Instructions, [...] day, # 90 tablet, 1 Refills, Maintenance, 02/24/20 10:41:00 EDT, [facility], 181, cm, 12/09/19 15:01:00 EST, Height, 100.6, kg, 04/07/18 20:14:00 EDT, Dry Weight Start Date: 02/24/20 Status: Ordered glipiZIDE 10 mg oral tablet, extended release See Instructions, # 60 tablet, Refills 5 Tot. Refills 5, TAKE 1 TABLET BY MOUTH TWICE DAILY, [facility] Start Date: 09/02/19 Status: Ordered ibuprofen 600 mg oral tablet 600 mg, 1, tablet, By Mouth, Every 6 hours, PRN, # 120 tablet, Refills 0, Tot. Refills 0, Maintenance, Pain, 01/08/20 15:02:00 EST, Route to Pharmacy Electronically, [facility], 181, cm, 12/09/19 15:01:00 EST, Height, [...] UNITS SUBCUTANEOUSLY EVERY NIGHT AT BEDTIME, # 15 mL, 5 Refills, Soft Stop, 12/09/19 15:39:00 EST, [facility], 181, cm, 12/09/19 15:01:00 EST, Height, 100.6, kg, 05... Start Date: 12/09/19 Status: Ordered levothyroxine 150 mcg (0.15 mg) oral tablet 1 tablet = 150 mcg, By Mouth, Daily, # 30 tablet, 5 Refills, Maintenance, 04/04/20 20:54:00 EDT, Tablet, [facility], 181, cm, 12/09/19 15:01:00 EST, Height, [...] tablet, Refills 5, Tot. Refills 5, Maintenance, 11/26/19 20:12:00 EST, Route to Pharmacy Electronically, [facility], 181, cm, 09/24/19 11:48:00 EST, Height, 100.6, kg, 04/07/18 20:14:00 EDT, Dry Weight Start Date: 11/26/19 Status: Ordered metFORMIN 1000 mg oral tablet 1 tablet = 1,000 mg, By Mouth, 2 times a day, # 60 tablet, 5 Refills, Maintenance, 10/28/19 13:33:00 EST, [facility], 181, cm, 09/24/19 11:48:00 EST, Height, 100.6, kg, 04/07/18 20:14:00 EDT, Dry Weight Start Date: 10/28/19 Status: Ordered Pen Marshall, 30 G x 8 mm BD Ultra [...] 07/17/1813:34:55 EDT, Aerosol, Route to Pharmacy Electronically, [id number], [facility] Start Date: 07/17/18 Stop Date: 08/16/18 Status: Ordered Prolixin DECANOATE Inj = 25 mg, Intramuscular, Every 21 days, 0 Refills, Maintenance, 01/19/19 14:36:12 EDT Start Date: 01/19/19 Status: Ordered Viagra 50 mg oral tablet 1 tablet = 50 mg, By Mouth, Daily, PRN as needed for erectile dysfunction, 1 hour before sexual activity, # 5 tablet, 0 Refills, Maintenance, 12/09/19 15:44:00 EST, Tablet, [facility], 181,cm, 12/09/19 15:01:00 EST, Height, 100.6, [...]
--- OUTSIDE RECORDS SUMMARY | 2024-03-02 18:40 | XMS_ITS | Continuity of Care Document ---
Author Organization [facility] Address [address] [place] [address]- Care Team Providers Care Tax Advisor Name Role Phone Rio ROBISON, Ginger Primary Care Physician Encounter [facility] Date(s): 09/10/23 - 01/25/[address] [address] Attending Physician: Kathi Guerrero MD Admitting Physician: Kathi Guerrero MD Referring Physician: Kathi Guerrero MD Allergies, Adverse Reactions, Alerts Substance Reaction [...] tetanus-diphtheria toxoids (Td) 02/03/13 Recorded 1Result Comment: [facility] [id number] 2Result Comment: [facility] [id number] Medications albuterol 0.083% inhalation solution 3 mL = 2.5 mg, Inhalation, Every 6 hours, PRN for wheezing, DX COPD, # 60 each, 3 Refills, Maintenance, 10/21/20 16:57:00 EST, Solution, [facility], Partial fill upon patient request if theprescription is for a schedule II opioid drug., 181... Start Date: 10/21/20 Status: Ordered albuterol CFC free 90 mcg/inh inhalation aerosol 2, puffs, Inhalation, 4 times a day, PRN, # 1 each, Refills 11, Tot. Refills 11, Maintenance, 12/30/23 15:02:00 EST, Aerosol, Route to Pharmacy Electronically, NCPDP_[id number], [facility],183, cm, 12/30/23 12:59:00 EST, Height Start [...] 09/04/23 13:27:00 EDT, Route to Pharmacy Electronically, [facility], 183, cm, 06/27/23 10:36:00 EDT, Height Start Date: 09/04/23 Stop Date: 03/02/24 Status: Ordered atorvastatin 40 mg oral tablet 1 tablet = 40 mg, By Mouth, Daily, # 90 tablet, 2 Refills, Maintenance, 09/19/23 8:50:00 EST, [facility], 183, cm, 09/10/23 14:55:00 EDT, Height Start Date: 09/19/23 Status: Ordered Basaglar KwikPen 100 units/mL subcutaneous solution See Instructions, 45 units Subcutaneous Injection in morning and 35 units at bedtime Replacing Levemir not covered by insurance, # 15 mL, 5 Refills, Maintenance, 12/31/23 11:25:00 EST, Solution, [facility], Replacing Levemir not covered b... Start [...] Date: 06/27/23 Status: Ordered COMFORT EZ MIS [id number] COMFORT EZ MIS [id number], See Instructions, # 100 each, Refills 5, Tot. Refills 5, Maintenance, USE TO INJECT INSULIN BID DX E11.9, 02/22/21 11:54:00 EDT, Supply, 181, cm, 02/06/21 11:06:00 EDT, Height Start Date: 02/22/21 Status: Ordered COMFORT EZ MIS 12EL0VB COMFORT EZ MIS [id number], See Instructions, # 100 each, 2 Refills, [...] Gm, 11 Refills, Maintenance, 07/23/22 11:21:00 EDT, [place], [facility], Partial fill upon patient request if [...] tablet, 1 Refills, Maintenance, 11/01/23 12:30:00 EST, [facility], 183, cm, 09/10/23 14:55:00 EDT, Height Start Date: 11/01/23 Status: Ordered Konsyl 100% oral powder for reconstitution = 7.5 Gm, By Mouth, 3 times a day, # 500 Gm, 0 Refills, Maintenance, 09/10/23 15:26:00 EDT, REC Powder, [facility], Partial fill upon patient request if the prescription is for a schedule II opioid drug., 183, cm, 09/10/23 14:55:00 EDT, Height Start Date: 09/10/23 Status: Ordered levothyroxine 150 mcg (0.15 mg) oral tablet 1 tablet, By Mouth, Daily, # 90 tablet, 2 Refills, Maintenance, 02/27/23 11:54:00 EDT, [facility], 181, cm, 01/02/23 13:54:00 EST, Height [...] 12/30/23 9:18:00 EST, Route to Pharmacy Electronically, [facility], 183, cm, 09/10/23 14:55:00 EDT, Height Start Date: 12/30/23 Status: Ordered metFORMIN 1000 mg oral tablet 1 tablet, By Mouth, 2 times a day, # 60 tablet, 5 Refills, Maintenance, 05/30/23 11:36:00 EDT, [facility], 180.3, cm, 04/10/23 15:18:00 EDT, Height [...] 15 mL, 5 Refills, 12/27/22 14:29:00 EST, [facility], 181, cm, 09... Start Date: 12/27/22 Status: Ordered PEG-3350 with Electrolytes Lemon (Eqv-GoLYTELY) oral powder for reconstitution See Instructions, Per GI office instructions, # 4,000 mL, 0 Refills, Maintenance, 12/19/23 10:42:00EST, [facility], Partial fill upon patient request if the prescription is for a schedule II opioid drug., Per GI office instructions, 183, cm... Start Date: 12/19/23 Status: Ordered PEN NEEDLES [id number] PEN NEEDLES [id number], See Instructions, # 200 each, Refills 5, [...] Replace Required Details, Route to Pharmacy Electronically, [facility], 183, cm, 09/10/23 14:55:00... Start Date: [...] each, 11 Refills, Maintenance, 01/09/24 12:05:00 EST, [facility], 183, cm, 12/30/23 12:59:00 EST, Height [...] Primary Care Member Role: PCP Address: Address: [address] [place] [address] [address] [place] [address]- Care Team Related Persons Name: MARGARET RAMÍREZ Address: home [address] [facility] [place], [place] Name: REINA RAMÍREZ Address: home [address] [place], [place] Name: LUZ DE LA CRUZ
--- OUTSIDE RECORDS SUMMARY | 2024-03-02 18:40 | XMS_ITS | Continuity of Care Document ---
Author Organization [facility] Address [address] [place] [address]- Care Team Providers Care Grinding Machine Operator Name Role Phone Rio ROBISON, Ginger Primary Care Physician Encounter [facility] Date(s): 06/24/23 - 07/24/23 [facility] [address] [facility] [address] [place] [id number] Allergies, Adverse Reactions, Alerts Substance Reaction Severity [...] tetanus-diphtheria toxoids (Td) 02/03/13 Recorded 1Result Comment: [facility] [id number] 2Result Comment: [facility] [id number] Medications albuterol 0.083% inhalation solution 3 mL = 2.5 mg, Inhalation, Every 6 hours, PRN for wheezing, DX COPD, # 60 each, 3 Refills, Maintenance, 10/21/20 16:57:00 EST, Solution, [facility], Partial fill upon patient request if theprescription is for a schedule II opioid drug., 181... Start Date: 10/21/20 Status: Ordered albuterol CFC free 90 mcg/inh inhalation aerosol 2, puffs, Inhalation, 4 times a day, PRN, # 18 Gm, Refills 11, Tot. Refills 11, Maintenance, 01/02/23 14:27:00 EST, Aerosol, Route to Pharmacy Electronically, NCPDP_[id number], [facility], 181, cm, 01/02/23 13:54:00 EST, Height [...] Replace Required Details, Route to Pharmacy Electronically, [facility], 181, cm, 01/02/23 13:... Start Date: 01/04/23 Status: Ordered atorvastatin 40 mg oral tablet See Instructions, TAKE 1 TABLET BY MOUTH DAILY, # 30 tablet, 0 Refills, Maintenance, 03/28/23 15:47:00 EDT, [facility], 181, cm, 01/02/23 13:54:00 EST, Height [...] Date: 06/27/23 Status: Ordered COMFORT EZ MIS [id number] COMFORT EZ MIS [id number], See Instructions, # 100 each, Refills 5, Tot. Refills 5, Maintenance, USE TO INJECT INSULIN BID DX E11.9, 02/22/21 11:54:00 EDT, Supply, 181, cm, 02/06/21 11:06:00 EDT, Height Start Date: 02/22/21 Status: Ordered COMFORT EZ MIS [id number] COMFORT EZ MIS [id number], See Instructions, # 100 each, 2 Refills, [...] 11 Refills, Maintenance, 07/23/22 11:21:00 EDT, [place], [facility], Partial fill upon patient request if the prescription is for a schedule II opioid drug., 1 sprays Nares, Both 2 times a day, 18... Start Date: 07/23/22 Status: Ordered fluticasone/umeclidinium/vilanterol 100 mcg-62.5 mcg-25 mcg/inh inhalation powder 1 puffs, Inhalation, Daily, # 1 each, 11 Refills, Maintenance, 01/02/23 14:26:00 EST, [facility], Partial fill upon patient request if [...] tablet, 1 Refills, Maintenance, 03/28/23 16:39:00 EDT, [facility], 181, cm, 01/02/23 13:54:00 EST, Height Start Date: 03/28/23 Status: Ordered Levemir FlexTouch 100 units/mL subcutaneous solution See Instructions, INJECT 30 UNITS SUBCUTANEOUSLY EVERY NIGHT AT BEDTIME, # 30 mL, 4 Refills, 07/09/22 15:53:00 EDT, [facility], 181, cm, 07/09/22 14:59:00 EDT, Height Start Date: 07/09/22 Status: Ordered levothyroxine 150 mcg (0.15 mg) oral tablet 1 tablet, By Mouth, Daily, # 90 tablet, 2 Refills, Maintenance, 02/27/23 11:54:00 EDT, [facility], 181, cm, 01/02/23 13:54:00 EST, Height [...] 03/15/23 9:56:00 EDT, Route to Pharmacy Electronically, [facility], 181, cm, 01/02/23 13:54:00 EST, Height Start Date: 03/15/23 Status: Ordered metFORMIN 1000 mg oral tablet 1 tablet, By Mouth, 2 times a day, # 60 tablet, 5 Refills, Maintenance, 05/30/23 11:36:00 EDT, [facility], 180.3, cm, 04/10/23 15:18:00 EDT, Height [...] 15 mL, 5 Refills, 12/27/22 14:29:00 EST, [facility], 181, cm, 09... Start Date: 12/27/22 Status: Ordered Pen [place], 30 G x 8 mm BD Ultra [...] Replace Required Details, Route to Pharmacy Electronically, [facility], 180.3, cm, 04/10/23 15:18:... Start Date: [...] Team Personnel Name: Vandana Gibbs RN Position: [facility] RN Member Role: Primary Care Nurse Name: Rio ROBISON, Ginger Position: [facility] Physician - Primary Care Member Role: PCP Address: Address: [address] [place] [address] [address] [place] [address]- Care Team Related Persons Name: MARGARET RAMÍREZ Address: home [address] [facility] [place], [place] Name: REINA RAMÍREZ Address: home [address] [place] [address] Name: LUZ DE LA CRUZ
--- OUTSIDE RECORDS SUMMARY | 2024-03-02 18:40 | XMS_ITS | Continuity of Care Document ---
Author Organization [facility] Address [address] [place] [address]- Care Team Providers Care Ladle Repairman Name Role Phone Rio ROBISON, Ginger Primary Care Physician [place] [facility] [place]23 - 08/21/23 [facility] [address] [place] [id number]- Allergies, Adverse Reactions, Alerts Substance Reaction Severity [...] tetanus-diphtheria toxoids (Td) 02/03/13 Recorded 1Result Comment: [facility] [id number] 2Result Comment: [facility] [id number] Medications albuterol 0.083% inhalation solution 3 mL = 2.5 mg, Inhalation, Every 6 hours, PRN for wheezing, DX COPD, # 60 each, 3 Refills, Maintenance, 10/21/20 16:57:00 EST, Solution, [facility], Partial fill upon patient request if theprescription is for a schedule II opioid drug., 181... Start Date: 10/21/20 Status: Ordered albuterol CFC free 90 mcg/inh inhalation aerosol 2, puffs, Inhalation, 4 times a day, PRN, # 18 Gm, Refills 11, Tot. Refills 11, Maintenance, 01/02/23 14:27:00 EST, Aerosol, Route to Pharmacy Electronically, NCPDP_[id number], [facility], 181, cm, 01/02/23 13:54:00 EST, Height [...] Replace Required Details, Route to Pharmacy Electronically, [facility], 181, cm, 01/02/23 13:... Start Date: 01/04/23 Status: Ordered atorvastatin 40 mg oral tablet See Instructions, TAKE 1 TABLET BY MOUTH DAILY, # 30 tablet, 0 Refills, Maintenance, 03/28/23 15:47:00 EDT, [facility], 181, cm, 01/02/23 13:54:00 EST, Height [...] Date: 06/27/23 Status: Ordered COMFORT EZ MIS [id number] COMFORT EZ MIS [id number], See Instructions, # 100 each, Refills 5, Tot. Refills 5, Maintenance, USE TO INJECT INSULIN BID DX E11.9, 02/22/21 11:54:00 EDT, Supply, 181, cm, 02/06/21 11:06:00 EDT, Height Start Date: 02/22/21 Status: Ordered COMFORT EZ MIS [id number] COMFORT EZ MIS [id number], See Instructions, # 100 each, 2 Refills, [...] Gm, 11 Refills, Maintenance, 07/23/22 11:21:00 EDT, [place], [facility], Partial fill upon patient request if the prescription is for a schedule II opioid drug., 1 sprays Nares, Both 2 times a day, 18... Start Date: 07/23/22 Status: Ordered fluticasone/umeclidinium/vilanterol 100 mcg-62.5 mcg-25 mcg/inh inhalation powder 1 puffs, Inhalation, Daily, # 1 each, 11 Refills, Maintenance, 01/02/23 14:26:00 EST, [facility], Partial fill upon patient request if [...] tablet, 1 Refills, Maintenance, 03/28/23 16:39:00 EDT, [facility], 181, cm, 01/02/23 13:54:00 EST, Height Start Date: 03/28/23 Status: Ordered Levemir FlexTouch 100 units/mL subcutaneous solution See Instructions, INJECT 30 UNITS SUBCUTANEOUSLY EVERY NIGHT AT BEDTIME, # 30 mL, 4 Refills, 07/09/22 15:53:00 EDT, [facility], 181, cm, 07/09/22 14:59:00 EDT, Height Start Date: 07/09/22 Status: Ordered levothyroxine 150 mcg (0.15 mg) oral tablet 1 tablet, By Mouth, Daily, # 90 tablet, 2 Refills, Maintenance, 02/27/23 11:54:00 EDT, [facility], 181, cm, 01/02/23 13:54:00 EST, Height [...] 03/15/23 9:56:00 EDT, Route to Pharmacy Electronically, [facility], 181, cm, 01/02/23 13:54:00 EST, Height Start Date: 03/15/23 Status: Ordered metFORMIN 1000 mg oral tablet 1 tablet, By Mouth, 2 times a day, # 60 tablet, 5 Refills, Maintenance, 05/30/23 11:36:00 EDT, [facility], 180.3, cm, 04/10/23 15:18:00 EDT, Height [...] 15 mL, 5 Refills, 12/27/22 14:29:00 EST, [facility], 181, cm, 09... Start Date: 12/27/22 Status: Ordered Pen [place], 30 G x 8 mm BD Ultra [...] Replace Required Details, Route to Pharmacy Electronically, [facility], 180.3, cm, 04/10/23 15:18:... Start Date: [...] Team Personnel Name: Vandana Gibbs RN Position: [facility] RN Member Role: Primary Care Nurse Name: Rio ROBISON, Ginger Position: [facility] Physician - Primary Care Member Role: PCP Address: Address: [address] [place] [address]- Care Team Related Persons Name: MARGARET RAMÍREZ Address: home [address] [place] [address] Name: REINA RAMÍREZ Address: home [address] [place] [address] Name: LUZ DE LA CRUZ
--- OUTSIDE RECORDS SUMMARY | 2024-03-02 18:40 | XMS_ITS | Continuity of Care Document ---
Author Organization [facility] Address [address] [place] [address]- Care Team Providers Care Fire Truck Driver Name Role Phone Rio ROBISON, Ginger Primary Care Physician Encounter [facility] Date(s): 04/28/21 - 05/28/21 [facility] [address] [place] [address]- Allergies, Adverse Reactions, Alerts Substance Reaction Severity Status amoxicillin Active sulfa drugs Active Immunizations Given and Recorded Vaccine Date Status Refusal Reason influenza virus vaccine, inactivated 1 09/24/19 Gi mitch influenza virus vaccine, inactivated 2 08/06/17 Gi mitch influenza virus vaccine, inactivated 11/02/15 Give n pneumococcal 23-valent vaccine 03/01/15 Given tetanus/diphtheria/pertussis, acel(Tdap) 03/01/15 Given 1Result Comment: [facility] [id number] 2Result Comment: [facility] [phone] Medications albuterol 0.083% inhalation solution 3 mL = 2.5 mg, Inhalation, Every 6 hours, PRN for wheezing, DX COPD, # 60 each, 3 Refills, Maintenance, 10/21/20 16:57:00 EST, Solution, [facility], Partial fill upon patient request if theprescription is for a schedule II opioid drug., 181... Start Date: 10/21/20 Status: Ordered albuterol CFC free 90 mcg/inh inhalation aerosol 2, puffs, Inhalation, 4 times a day, PRN, # 18 Gm, Refills 11, Tot. Refills 11, Maintenance, 01/12/21 15:28:00 EST, Aerosol, Route to Pharmacy Electronically, NCPDP_[id number], [facility], 181, cm, 01/04/21 15:28:00 EST, Height [...] 11 Refills, Maintenance, 01/12/21 15:29:00 EST, Powder, [facility], Partial fill upon patient request if the prescription is for a schedule II opioid drug., 1 puffs Inhalation Daily,x30 days, 181, cm, 02... Start Date: 01/12/21 Stop Date: 01/07/22 Status: Ordered atenolol 50 mg oral tablet 25 mg, 0.5, tablet, By Mouth, Daily, # 15 tablet, Refills 1, Tot. Refills 1, Maintenance, 10/31/20 9:30:00 EST, Route to Pharmacy Electronically, [facility], Rx resent from 05/11/19., 181, cm, 10/21/20 11:47:00 EST, Height Start Date: 10/31/20 Status: Ordered atorvastatin 40 mg oral tablet 1 tablet = 40 mg, By Mouth, Daily, # 90 tablet, 1 Refills, Maintenance, 03/07/21 13:56:00 EDT, Tablet, [facility], 181, cm, 02/06/21 11:06:00 EDT, Height [...] Date: 12/09/14 Status: Ordered COMFORT EZ MIS [id number] COMFORT EZ MIS [id number], See Instructions, # 100 each, Refills 5, [...] 10/09/18 15:47:31 EST, Route to Pharmacy Electronically, [id number], DENNISE Ureñaamp; [facility] Start Date: [...] 8PM DX E10.9, 07/05/20 10:44:00 EDT, Compound, 181 cm, 12/09/19 15:01:00 EST, Height Start Date: 07/05/20 Status: Ordered gabapentin 600 mg oral tablet 1 tablet, By Mouth, 3 times a day, # 270 tablet, 0 Refills, Maintenance, 01/24/21 14:43:00 EDT, [facility], 181, cm, 01/04/21 15:28:00 EST, Height Start Date: 01/24/21 Status: Ordered ibuprofen 600 mg oral tablet 600 mg, 1, tablet, By Mouth, Every 6 hours, PRN, # 120 tablet, Refills 0, Tot. Refills 0, Maintenance, Pain, 04/04/21 16:38:00 EDT, Route to Pharmacy Electronically, [facility], 181, yoon, 02/06/21 11:06:00 EDT, Height [...] 5 Refills, Soft Stop, 10/25/20 9:50:00 EST, [facility], 181, cm, 10/21/20 11:47:00 EST, Height Start Date: 10/25/20 Status: Ordered levothyroxine 150 mcg (0.15 mg) oral tablet 1 tablet = 150 mcg, By Mouth, Daily, # 30 tablet, 5 Refills, Maintenance, 11/08/20 11:44:00 EST, Tablet, [facility], 181, cm, 10/21/20 11:47:00 EST, Height [...] 12/28/20 15:39:00 EST, Route to Pharmacy Electronically, [facility], 181, cm, 10/21/20 11:47:00 EST, Height Start Date: 12/28/20 Status: Ordered metFORMIN 1000 mg oral tablet 1 tablet = 1,000 mg, By Mouth, 2 times a day, # 60 tablet, 5 Refills, Maintenance, 04/27/21 11:14:00 EDT, [facility], 181, cm, 02/06/21 11:06:00 EDT, Height Start Date: 04/27/21 Status: Ordered Nebulizer/Compressor See Instructions, PRN, # 1 each, Maintenance, Wheezing/Shortness of Breath, Use with albuterol solution q6h Dx: COPD (J44.9), 10/21/20 14:33:00 EST, Supply Start Date: 10/21/20 Status: Ordered Pen [place], 30 G x 8 mm BD Ultra [...] 05/09/20 8:55:00 EDT, Route to Pharmacy Electronically, [facility], 181, cm, 12/09/19 15:01:00 EST, Height [...]
--- OUTSIDE RECORDS SUMMARY | 2024-03-02 18:40 | XMS_ITS | Continuity of Care Document ---
Author Organization [facility] Address [address] [place] [address]- Care Team Providers Care Global Security Architect Name Role Phone Rio ROBISON, Ginger Primary Care Physician [place] [facility] [place] 10/28/20 - 11/27/20 [facility] [address] [place] [address]- Allergies, Adverse Reactions, Alerts Substance Reaction Severity Status amoxicillin Active sulfa drugs Active Immunizations Given and Recorded Vaccine Date Status Refusal Reason influenza virus vaccine, inactivated 1 09/24/19 Gi mitch influenza virus vaccine, inactivated 2 08/06/17 Gi mitch influenza virus vaccine, inactivated 11/02/15 Give n pneumococcal 23-valent vaccine 03/01/15 Given tetanus/diphtheria/pertussis, acel(Tdap) 03/01/15 Given 1Result Comment: [facility] [id number] 2Result Comment: [facility] [phone] Medications Advair Diskus 250 mcg-50 mcg inhalation powder 1, puffs, Inhalation, Every 12 hours, rinse mouth and throat after use, # 28 each, Refills 6, Tot. Refills 6, Maintenance, 10/21/20 13:08:00 EST, Route to Pharmacy Electronically, [id number]_[id number], [facility], please hold for when symbicort... Start Date: 10/21/20 Stop Date: 05/19/21 Status: Ordered albuterol 0.083% inhalation solution 3 mL = 2.5 mg, Inhalation, Every 6 hours, PRN for wheezing, DX COPD, # 60 each, 3 Refills, Maintenance, 10/21/20 16:57:00 EST, Solution, [facility], Partial fill upon patient request if [...] 10/31/20 9:30:00 EST, Route to Pharmacy Electronically, [facility], Rx resent from 05/11/19., 181, cm, 10/21/20 11:47:00 EST, Height Start Date: 10/31/20 Status: Ordered atorvastatin 40 mg oral tablet 1 tablet = 40 mg, By Mouth, Daily, # 90 tablet, 1 Refills, Maintenance, 07/26/20 12:07:00 EDT, Tablet, [facility], 181, cm, 12/09/19 15:01:00 EST, Height, [...] 10/09/18 15:47:31 EST, Route to Pharmacy Electronically, [id number], DENNISE Ureñaamp; [facility] Start Date: [...] tablet, 0 Refills, Maintenance, 10/24/20 10:05:00 EST, [facility], 181, cm, 10/21/20 11:47:00 EST, Height Start Date: 10/24/20 Status: Ordered ibuprofen 600 mg oral tablet 600 mg, 1, tablet, By Mouth, Every 6 hours, PRN, # 120 tablet, Refills 0, Tot. Refills 0, Maintenance, Pain, 01/08/20 15:02:00 EST, Route to Pharmacy Electronically, [facility], 181, cm, 12/09/19 15:01:00 EST, Height, 100.6, kg, 04/07/18 20:... Start Date: 01/08/20 Status: Ordered Incruse Ellipta 62.5 mcg/inh inhalation powder 1 each, Inhalation, Every 24 hours, doses should be taken at least 24 hours apart, # 1 each, 11 Refills, Maintenance, 10/25/20 15:07:00 EST, Powder, [facility], Partial fill upon patient request if [...] 5 Refills, Soft Stop, 10/25/20 9:50:00 EST, [facility], 181, cm, 10/21/20 11:47:00 EST, Height Start Date: 10/25/20 Status: Ordered levothyroxine 150 mcg (0.15 mg) oral tablet 1 tablet = 150 mcg, By Mouth, Daily, # 30 tablet, 5 Refills, Maintenance, 11/08/20 11:44:00 EST, Tablet, [facility], 181, cm, 10/21/20 11:47:00 EST, Height [...] 05/24/20 13:38:00 EDT, Route to Pharmacy Electronically, [facility], 181, cm, 12/09/19 15:01:00 EST, Height, Dry Weight Start Date: 05/24/20 Status: Ordered metFORMIN 1000 mg oral tablet 1 tablet = 1,000 mg, By Mouth, 2 times a day, # 60 tablet, 5 Refills, Maintenance, 11/01/20 9:36:00EST, [facility], 181, cm, 10/21/20 11:47:00 EST, Height [...] 12/13/20 13:20:00 EST, 11/01/20 13:20:00 EST, Patch, [facility], Partial fill upon patient request if the prescriptionis for a schedule II opioid drug., 1 patch Topicall... Start Date: 11/01/20 Stop Date: 12/13/20 Status: Ordered Pen [place], 30 G x 8 mm BD Ultra [...] 12:55:00 EST, Aerosol, Route to Pharmacy Electronically, NCPDP_[id number], [facility], 181, , 08/03/20 9:1... Start Date: 09/26/20 Stop Date: 03/25/21 Status: Ordered ProAir HFA 90 mcg/inh inhalation aerosol with adapter 2, puffs, Inhalation, Every 6 hours, PRN, use with spacer chamber, # 1 each, Refills 5, Tot. Refills 5, Maintenance, 03/25/21 12:55:00 EDT, Aerosol, Route to Pharmacy Electronically, NCPDP_[id number], [facility], 181, cm, 10/21/20 11:47:00 E... Start Date: 03/25/21 Stop Date: 09/21/21 Status: Ordered Prolixin DECANOATE Inj = 25 mg, Intramuscular, Every 21 days, 0 Refills, Maintenance, 01/19/19 14:36:12 EDT Start Date: 01/19/19 Status: Ordered tamsulosin 0.4 mg oral capsule 1, capsule, By Mouth, Daily, # 30 capsule, Refills 11, Tot. Refills 0, Maintenance, 05/09/20 8:55:00 EDT, Route to Pharmacy Electronically, [facility], 181, , 12/09/19 15:01:00 EST, Height Start Date: 05/09/20 Status: Ordered Viagra 50 mg oral tablet 1 tablet = 50 mg, By Mouth, Daily, PRN as needed for erectile dysfunction, 1 hour before sexual activity, # 5 tablet, 0 Refills, Maintenance, 12/09/19 15:44:00 EST, Tablet, [facility], 181,cm, 12/09/19 15:01:00 EST, Height, 100.6, [...]
--- OUTSIDE RECORDS SUMMARY | 2024-03-02 18:40 | XMS_ITS | Continuity of Care Document ---
Author Organization [facility] Address [address] [place] [address]- Care Team Providers Care Starch Mangle Tender Name Role Phone Rio ROBISON, Ginger Primary Care Physician Encounter [facility] Date(s): 03/07/23 - 04/06/23 [facility] [address] [place] [phone]- Allergies, Adverse Reactions, Alerts Substance Reaction Severity [...] tetanus-diphtheria toxoids (Td) 02/03/13 Recorded 1Result Comment: [facility] [id number] 2Result Comment: [facility] [place] [phone] Medications albuterol 0.083% inhalation solution 3 mL = 2.5 mg, Inhalation, Every 6 hours, PRN for wheezing, DX COPD, # 60 each, 3 Refills, Maintenance, 10/21/20 16:57:00 EST, Solution, [facility], Partial fill upon patient request if theprescription is for a schedule II opioid drug., 181... Start Date: 10/21/20 Status: Ordered albuterol CFC free 90 mcg/inh inhalation aerosol 2, puffs, Inhalation, 4 times a day, PRN, # 18 Gm, Refills 11, Tot. Refills 11, Maintenance, 01/02/23 14:27:00 EST, Aerosol, Route to Pharmacy Electronically, COPDP_[id number], [facility], 181, cm, 01/02/23 13:54:00 EST, Height [...] Replace Required Details, Route to Pharmacy Electronically, [facility], 181, cm, 01/02/23 13:... Start Date: 01/04/23 Status: Ordered atorvastatin 40 mg oral tablet See Instructions, TAKE 1 TABLET BY MOUTH DAILY, # 30 tablet, 0 Refills, Maintenance, 03/28/23 15:47:00 EDT, [facility], 181, cm, 01/02/23 13:54:00 EST, Height Start Date: 03/28/23 Status: Ordered Azithromycin 5 Day Dose Pack 250 mg oral tablet 1 pack/packet, By Mouth, Once, # 6 tablet, 0 Refills, Soft Stop, 01/02/23 14:26:00 EST, Tablet, [facility], Partial fill upon patient request if [...] Date: 08/11/21 Status: Ordered COMFORT EZ MIS [id number] COMFORT EZ MIS [id number], See Instructions, # 100 each, Refills 5, Tot. Refills 5, Maintenance, USE TO INJECT INSULIN BID DX E11.9, 02/22/21 11:54:00 EDT, Supply, 181, cm, 02/06/21 11:06:00 EDT, Height Start Date: 02/22/21 Status: Ordered COMFORT EZ MIS [id number] COMFORT EZ MIS [id number], See Instructions, # 100 each, 2 Refills, USE DIRECTED WITH INSULIN PENS,181, cm, 08/09/21 14:56:00 EDT, Height Start Date: 10/31/21 Status: Ordered COMFRT TOUCH PAD ALC PREP COMFRT TOUCH PAD ALC PREP, See Instructions, # 200 each, 4 Refills, Maintenance, USE WHEN TESTING GLUCOSE AND INJECTING INSULIN, 11/22/22 8:56:00 EST, 181, cm, 07/23/22 10:45:00 EDT, [...] 10/09/18 15:47:31 EST, Route to Pharmacy Electronically, [id number], [facility] Ure[facility]; [facility] Start Date: [...] Gm, 11 Refills, Maintenance, 07/23/22 11:21:00 EDT, [place], [facility], Partial fill upon patient request if the prescription is for a schedule II opioid drug., 1 sprays Nares, Both 2 times a day, 18... Start Date: 07/23/22 Status: Ordered fluticasone/umeclidinium/vilanterol 100 mcg-62.5 mcg-25 mcg/inh inhalation powder 1 puffs, Inhalation, Daily, # 1 each, 11 Refills, Maintenance, 01/02/23 14:26:00 EST, [facility], Partial fill upon patient request if [...] tablet, 1 Refills, Maintenance, 03/28/23 16:39:00 EDT, [facility], 181, cm, 01/02/23 13:54:00 EST, Height Start Date: 03/28/23 Status: Ordered insulin lispro 100 u/ml subcutaneous [...] 30 mL, 4 Refills, 07/09/22 15:53:00 EDT, [facility], 181, cm, 07/09/22 14:59:00 EDT, Height Start Date: 07/09/22 Status: Ordered levothyroxine 150 mcg (0.15 mg) oral tablet 1 tablet, By Mouth, Daily, # 90 tablet, 2 Refills, Maintenance, 02/27/23 11:54:00 EDT, [facility], 181, cm, 01/02/23 13:54:00 EST, Height Start Date: 02/27/23 Status: Ordered lithium 300 mg oral tablet [...] 03/15/23 9:56:00 EDT, Route to Pharmacy Electronically, [facility], 181, cm, 01/02/23 13:54:00 EST, Height Start Date: 03/15/23 Status: Ordered metFORMIN 1000 mg oral tablet 1 tablet, By Mouth, 2 times a day, # 60 tablet, 4 Refills, Maintenance, 12/14/22 8:54:00 EST, [facility], 181, cm, 07/23/22 10:45:00 EDT, Height [...] 15 mL, 5 Refills, 12/27/22 14:29:00 EST, [facility], 181, cm, 09... Start Date: 12/27/22 Status: Ordered Pen [place], 30 G x 8 mm BD Ultra [...] tablet, 0 Refills, Maintenance, 01/02/23 14:26:00 EST, [facility], Partial fill upon patient request if the prescription is for a schedule II opioid drug., 181, cm, 01/02/23 13:54:00 EST, Height Start Date: 01/02/23 Stop Date: 01/07/23 Status: Ordered Vistaril pamoate 25 mg oral [...] Team Personnel Name: Vandana Gibbs RN Position: [facility] RN Member Role: Primary Care Nurse Name: Ginger Pate MD Position: S Physician - Primary Care Member Role: PCP Address: Address: [address] [place] [phone]- Care Team Related Persons Name: MARGARET RAMÍREZ Address: home [address] [place] [address]. [place] [address] Name: REINA RAMÍREZ Address: [address] [place] [address] Name: LUZ DE LA CRUZ
--- OUTSIDE RECORDS SUMMARY | 2024-03-02 18:41 | XMS_ITS | Continuity of Care Document ---
Author Organization [facility] Address [address] [place] [address]- Care Team Providers Care Stationary Engineer Refrigeration Name Role Phone Ginger Pate MD Primary Care Physician Encounter [facility] [place] Date(s): 08/09/21 - 08/16/21 [facility] [address] [place] [phone]- Encounter Diagnosis Hypothyroidism(Discharge Diagnosis) - 08/09/21 Well adult exam(Discharge Diagnosis) - 08/09/21 Type 2 diabetes mellitus with diabetic neuropathy(Discharge Diagnosis) - 08/09/21 Schizo-affective schizophrenia(Discharge Diagnosis) - 08/09/21 Bipolar disease, chronic(Discharge Diagnosis) - 08/09/21 COPD (chronic obstructive pulmonary disease)(Discharge Diagnosis) - 08/09/21 Dyslipidemia(Discharge Diagnosis) - 08/09/21 Tobacco abuse(Discharge Diagnosis) - 08/09/21 Attending Physician: Rio ROBISON Ginger Allergies, Adverse Reactions, Alerts Substance Reaction Severity Status amoxicillin Active sulfa drugs Active Immunizations Given and Recorded Vaccine Date Status Refusal Reason influenza virus vaccine, inactivated 1 09/24/19 Gi mitch influenza virus vaccine, inactivated 2 08/06/17 Gi mitch influenza virus vaccine, inactivated 11/02/15 Give n pneumococcal 23-valent vaccine 03/01/15 Given tetanus/diphtheria/pertussis, acel(Tdap) 03/01/15 Given 1Result Comment: [facility] [id number] 2Result Comment: [facility] [id number] Medications albuterol 0.083% inhalation solution 3 mL = 2.5 mg, Inhalation, Every 6 hours, PRN for wheezing, DX COPD, # 60 each, 3 Refills, Maintenance, 10/21/20 16:57:00 EST, Solution, [facility], Partial fill upon patient request if theprescription is for a schedule II opioid drug., 181... Start Date: 10/21/20 Status: Ordered albuterol CFC free 90 mcg/inh inhalation aerosol 2, puffs, Inhalation, 4 times a day, PRN, # 18 Gm, Refills 11, Tot. Refills 11, Maintenance, 01/12/21 15:28:00 EST, Aerosol, Route to Pharmacy Electronically, CAPDP_[id number], [facility], 181, cm, 01/04/21 15:28:00 EST, Height [...] 11 Refills, Maintenance, 01/07/22 15:29:00 EST, Powder, [facility], Partial fill upon patient request if the prescription is for a schedule II opioid drug., 1 puffs Inhalation Daily,x30 days, 181, cm, 09... Start Date: 01/07/22 Stop Date: 01/02/23 Status: Ordered Anoro Ellipta 62.5 mcg-25 mcg/inh inhalation powder 1 puffs, Inhalation, Daily, for 30 days, # 1 each, 11 Refills, Hard Stop 01/07/22 15:29:00 EST, 01/12/21 15:29:00 EST, Powder, [facility], Partial fill upon patient request if the prescription is for a schedule II opioid drug., 181, cm, 12/13... Start Date: 01/12/21 Stop Date: 01/07/22 Status: Ordered Atarax Tablet = 25 mg, [...] Replace Required Details, Route to Pharmacy Electronically, [facility], 181, cm, 02/06/21 11:06:0... Start Date: 06/15/21 Status: Ordered atorvastatin 40 mg oral tablet 1 tablet = 40 mg, By Mouth, Daily, # 90 tablet, 1 Refills, Maintenance, 03/07/21 13:56:00 EDT, Tablet, [facility], 181, cm, 02/06/21 11:06:00 EDT, Height [...] Date: 08/11/21 Status: Ordered COMFORT EZ MIS [id number] COMFORT EZ MIS [id number], See Instructions, # 100 each, Refills 5, Tot. Refills 5, Maintenance, USE TO INJECT INSULIN BID DX E11.9, 02/22/21 11:54:00 EDT, Supply, 181, cm, 02/06/21 11:06:00 EDT, Height Start Date: 02/22/21 Status: Ordered Depakote ER 250 mg oral [...] 10/09/18 15:47:31 EST, Route to Pharmacy Electronically, [id number], DENNISE Ure[facility]amp; [facility] Start Date: [...] tablet, 0 Refills, Maintenance, 05/31/21 16:25:00 EDT, [facility], 181, cm, 02/06/21 11:06:00 EDT, Height Start Date: 05/31/21 Status: Ordered ibuprofen 600 mg oral tablet 600 mg, 1, tablet, By Mouth, Every 6 hours, PRN, # 120 tablet, Refills 0, Tot. Refills 0, Maintenance, Pain, 04/04/21 16:38:00 EDT, Route to Pharmacy Electronically, [facility], 181, cm, 02/06/21 11:06:00 EDT, Height [...] 5 Refills, Soft Stop, 10/25/20 9:50:00 EST, [facility], 181, cm, 10/21/20 11:47:00 EST, Height Start Date: 10/25/20 Status: Ordered levothyroxine 150 mcg (0.15 mg) oral tablet 1 tablet = 150 mcg, By Mouth, Daily, # 30 tablet, 2 Refills, Maintenance, 06/07/21 11:27:00 EDT, Tablet, [facility], 181, cm, 02/06/21 11:06:00 EDT, Height [...] Refills 5, Route to Pharmacy Electronically, [facility], 181, cm, 07/18/21 11:27:00 EDT, Height Start Date: 08/01/21 Status: Ordered metFORMIN 1000 mg oral tablet 1 tablet = 1,000 mg, By Mouth, 2 times a day, # 60 tablet, 5 Refills, Maintenance, 04/27/21 11:14:00 EDT, [facility], 181, cm, 02/06/21 11:06:00 EDT, Height [...] CALL PCP, # 15 mL, 2 Refills, [facility], 181, cm, 07/18/21 11:27:00 EDT, He... Start Date: 08/01/21 Status: Ordered Pen [place], 30 G x 8 mm BD Ultra [...] 16:19:00 EDT, Route to Pharmacy Electronically, [facility], 181, cm, 02/06/21 11:06:00 EDT, Height [...] Active Schizo-affective schizophrenia(Confirmed) Active Tobacco abuse(Confirmed) Active Diagnosis Diagnosis Type Effective Dates Health Status Clinical Service Informant Well adult exam Discharge Diagnosis 08/09/21 Type 2 diabetes mellitus with diabetic neuropathy Discharge Diagnosis 08/09/21 Schizo-affective schizophrenia Discharge Diagnosis 08/09/21 Bipolar disease, chronic Discharge Diagnosis 08/09/21 COPD (chronic obstructive pulmonary disease) Discharge Diagnosis 08/09/21 Dyslipidemia Discharge Diagnosis 08/09/21 Hypothyroidism Discharge Diagnosis 08/09/21 Tobacco abuse Discharge Diagnosis 08/09/21 Vital Signs Most recent to oldest [Reference Range]: 1 Height 181 cm (08/09/21 2:56 PM) Weight 80.5 kg (08/09/21 2:56 PM) Oxygen Saturation [94-100 %] 93 % *L* (08/09/21 2:56 PM) Pulse Rate [55-90 bpm] 80 bpm (08/09/21 2:56 PM) Body Mass Index [18.5-24.99] 24.57 (08/09/21 2:56 PM) Blood Pressure [90-138/55-84 mm Hg] 106/ 65mm Hg (08/09/21 2:56 PM) Mode of Delivery (Oxygen) Room air (08/09/21 2:56 PM) Blood pressure sites Arm, left (08/09/21 2:56 PM) Weight Obtained Via Standing scale (08/09/21 2:56 PM) Social History Social History Type Response Smoking Status Current every day miguel drummond; Tobacco user in household: Yes; Type: Cigarettes; Tobacco use times per day: 1/2 PPD; entered on: 08/09/16 Sex
--- OUTSIDE RECORDS SUMMARY | 2024-03-02 18:41 | XMS_ITS | Continuity of Care Document ---
Author Organization [facility] Address [address] [place] [address]- Care Team Providers Care Sorter Lumber Straightener Name Role Phone Rio ROBISON, Ginger Primary Care Physician Encounter [facility] [place] [place] Date(s): 11/22/23 - 12/22/[address] [facility] [address] [place] [address]- Attending Physician: AdmEricka mora Admitting Physician: Admtr, [id number] Referring Physician: Admtr, [...] Comment: [facility] [id number] 2Result Comment: [facility] [phone] Medications albuterol 0.083% inhalation solution 3 mL = 2.5 mg, Inhalation, Every 6 hours, PRN for wheezing, DX COPD, # 60 each, 3 Refills, Maintenance, 10/21/20 16:57:00 EST, Solution, [facility], Partial fill upon patient request if theprescription is for a schedule II opioid drug., 181... Start Date: 10/21/20 Status: Ordered albuterol CFC free 90 mcg/inh inhalation aerosol 2, puffs, Inhalation, 4 times a day, PRN, # 18 Gm, Refills 11, Tot. Refills 11, Maintenance, 01/02/23 14:27:00 EST, Aerosol, Route to Pharmacy Electronically, NCPDP_[id number], [facility], 181, cm, 01/02/23 13:54:00 EST, Height [...] 09/04/23 13:27:00 EDT, Route to Pharmacy Electronically, [facility], 183, cm, 06/27/23 10:36:00 EDT, Height Start Date: 09/04/23 Stop Date: 03/02/24 Status: Ordered atorvastatin 40 mg oral tablet 1 tablet = 40 mg, By Mouth, Daily, # 90 tablet, 2 Refills, Maintenance, 09/19/23 8:50:00 EST, [facility], 183, cm, 09/10/23 14:55:00 EDT, Height [...] Date: 06/27/23 Status: Ordered COMFORT EZ MIS [id number] COMFORT EZ MIS [id number], See Instructions, # 100 each, Refills 5, Tot. Refills 5, Maintenance, USE TO INJECT INSULIN BID DX E11.9, 02/22/21 11:54:00 EDT, Supply, 181, cm, 02/06/21 11:06:00 EDT, Height Start Date: 02/22/21 Status: Ordered COMFORT EZ MIS [id number] COMFORT EZ MIS [id number], See Instructions, # 100 each, 2 Refills, [...] Gm, 11 Refills, Maintenance, 07/23/22 11:21:00 EDT, [place], [facility], Partial fill upon patient request if the prescription is for a schedule II opioid drug., 1 sprays Nares, Both 2 times a day, 18... Start Date: 07/23/22 Status: Ordered fluticasone/umeclidinium/vilanterol 100 mcg-62.5 mcg-25 mcg/inh inhalation powder 1 puffs, Inhalation, Daily, # 1 each, 11 Refills, Maintenance, 01/02/23 14:26:00 EST, [facility], Partial fill upon patient request if [...] tablet, 1 Refills, Maintenance, 11/01/23 12:30:00 EST, [facility], 183, cm, 09/10/23 14:55:00 EDT, Height Start Date: 11/01/23 Status: Ordered Konsyl 100% oral powder for reconstitution = 7.5 Gm, By Mouth, 3 times a day, # 500 Gm, 0 Refills, Maintenance, 09/10/23 15:26:00 EDT, REC Powder, [facility], Partial fill upon patient request if the prescription is for a schedule II opioid drug., 183, cm, 09/10/23 14:55:00 EDT, Height Start Date: 09/10/23 Status: Ordered Levemir FlexTouch 100 units/mL subcutaneous solution See Instructions, INJECT 45 UNITS SUBCUTANEOUSLY EVERY MORNING AND INJECT 35 UNITS SUBCUTANEOUSLY EVERY NIGHT AT BEDTIME, # 30 mL, 3 Refills, Maintenance, 09/25/23 8:40:00 EST, [facility], 183, cm, 09/10/23 14:55:00 EDT, Height Start Date: 09/25/23 Status: Ordered levothyroxine 150 mcg (0.15 mg) oral tablet 1 tablet, By Mouth, Daily, # 90 tablet, 2 Refills, Maintenance, 02/27/23 11:54:00 EDT, [facility], 181, cm, 01/02/23 13:54:00 EST, Height [...] By Mouth, Daily, # 30 tablet, Refills 0, Maintenance, 12/02/23 10:06:00 EST, Route to Pharmacy Electronically, [facility], 183, cm, 09/10/23 14:55:00 EDT, Height Start Date: 12/02/23 Status: Ordered metFORMIN 1000 mg oral tablet 1 tablet, By Mouth, 2 times a day, # 60 tablet, 5 Refills, Maintenance, 05/30/23 11:36:00 EDT, [facility], 180.3, cm, 04/10/23 15:18:00 EDT, Height [...] 15 mL, 5 Refills, 12/27/22 14:29:00 EST, [facility], 181, cm, 09... Start Date: 12/27/22 Status: Ordered PEG-3350 with Electrolytes Lemon (Eqv-GoLYTELY) oral powder for reconstitution See Instructions, Per GI office instructions, # 4,000 mL, 0 Refills, Maintenance, 12/19/23 10:42:00EST, [facility], Partial fill upon patient request if the prescription is for a schedule II opioid drug., Per GI office instructions, 183, cm... Start Date: 12/19/23 Status: Ordered PEN NEEDLES [id number] PEN NEEDLES [id number], See Instructions, # 200 each, Refills 5, [...] Replace Required Details, Route to Pharmacy Electronically, [facility], 180.3, cm, 04/10/23 15:18:... Start Date: [...] Primary Care Member Role: PCP Address: Address: [facility] [address] [address] Care Team Related Persons Name: MARGARET RAMÍREZ Address: home [address] [place] [address]. [place] [address] Name: REINA RAMÍREZ Address: home [address] [place] [id number] Name: LUZ DE LA CRUZ
--- OUTSIDE RECORDS SUMMARY | 2024-03-02 18:41 | XMS_ITS | Continuity of Care Document ---
Author Organization [facility] Adult Address [address] [place] [address]- Care Team Providers Care Certified Physical Therapist Assistant Name Role Phone Rio ROBISON, Ginger Primary Care Physician Encounter [facility] Date(s): 03/06/22 - 04/12/22 [facility] Adult [address] [place] [phone]- Attending Physician: Ginger Pate MD Allergies, Adverse Reactions, Alerts Substance Reaction Severity Status amoxicillin Active sulfa drugs Active Immunizations Given and Recorded Vaccine Date Status Refusal Reason influenza virus vaccine, inactivated 1 09/24/19 Gi mitch influenza virus vaccine, inactivated 2 08/06/17 Gi mitch influenza virus vaccine, inactivated 11/02/15 Give n pneumococcal 23-valent vaccine 03/01/15 Given tetanus/diphtheria/pertussis, acel(Tdap) 03/01/15 Given 1Result Comment: [facility] [id number] 2Result Comment: [facility] [id number] Medications albuterol 0.083% inhalation solution 3 mL = 2.5 mg, Inhalation, Every 6 hours, PRN for wheezing, DX COPD, # 60 each, 3 Refills, Maintenance, 10/21/20 16:57:00 EST, Solution, [facility], Partial fill upon patient request if theprescription is for a schedule II opioid drug., 181... Start Date: 10/21/20 Status: Ordered albuterol CFC free 90 mcg/inh inhalation aerosol 2, puffs, Inhalation, 4 times a day, PRN, # 18 Gm, Refills 11, Tot. Refills 11, Maintenance, 01/12/21 15:28:00 EST, Aerosol, Route to Pharmacy Electronically, NCPDP_[id number], [facility], 181, cm, 01/04/21 15:28:00 EST, Height Start Date: 01/12/21 Stop Date: 01/07/22 Status: Ordered albuterol CFC free 90 mcg/inh inhalation aerosol 2, puffs, Inhalation, 4 times a day, PRN, # 18 Gm, Refills 11, Tot. Refills 11, Maintenance, 01/15/22 11:28:00 EST, Aerosol, Route to Pharmacy Electronically, NCPDP_[id number], [facility], 181, cm, 01/15/22 11:07:00 EST, Height [...] 11 Refills, Maintenance, 01/07/22 15:29:00 EST, Powder, [facility], Partial fill upon patient request if [...] Instructions ReplaceRequired Details, Route to Pharmacy Electronically, [facility], 181, cm, 08/09/21 14:56:00 EDT, Height Start Date: 01/02/22 Status: Ordered atorvastatin 40 mg oral tablet 1 tablet, By Mouth, Daily, # 90 tablet, 1 Refills, [facility], 181, cm, 08/09/21 14:56:00EDT, Height Start Date: [...] Date: 08/11/21 Status: Ordered COMFORT EZ MIS [id number] COMFORT EZ MIS [id number], See Instructions, # 100 each, Refills 5, Tot. Refills 5, Maintenance, USE TO INJECT INSULIN BID DX E11.9, 02/22/21 11:54:00 EDT, Supply, 181, cm, 02/06/21 11:06:00 EDT, Height Start Date: 02/22/21 Status: Ordered COMFORT EZ MIS [id number] COMFORT EZ MIS [id number], See Instructions, # 100 each, 2 Refills, [...] 10/09/18 15:47:31 EST, Route to Pharmacy Electronically, [id number], [facility]; [facility] Start Date: [...] tablet, 0 Refills, Maintenance, 02/01/22 7:20:00 EDT, [facility], 181, cm, 01/15/22 11:07:00 EST, Height Start Date: 02/01/22 Status: Ordered ibuprofen 600 mg oral tablet 600 mg, 1, tablet, By Mouth, Every 6 hours, PRN, # 120 tablet, Refills 0, Tot. Refills 0, Maintenance, Pain, 04/04/21 16:38:00 EDT, Route to Pharmacy Electronically, [facility], 181, cm, 02/06/21 11:06:00 EDT, Height [...] AT BEDTIME, # 30 mL, 4 Refills, [facility], 181, cm, 08/09/21 14:56:00 EDT, Height Start Date: 11/08/21 Status: Ordered levothyroxine 150 mcg (0.15 mg) oral tablet 1 tablet, By Mouth, Daily, # 30 tablet, 5 Refills, [facility], 181, cm, 08/09/21 14:56:00EDT, Height Start [...] tablet, Refills 5, Route to Pharmacy Electronically, [facility], 181, cm, 01/15/22 11:07:00 EST, Height Start Date: 02/01/22 Status: Ordered metFORMIN 1000 mg oral tablet 1 tablet, By Mouth, 2 times a day, # 60 tablet, 5 Refills, [facility], 181, cm, 08/09/21 14:56:00 EDT, Height [...] CALL PCP, # 15 mL, 5 Refills, [facility], 181, cm, 01/15/22 11:07:00 EST, He... Start Date: 03/29/22 Status: Ordered Pen [place], 30 G x 8 mm BD Ultra [...] 06/08/21 16:19:00 EDT, Route to Pharmacy Electronically, [facility], 181, cm, 02/06/21 11:06:00 EDT, Height [...]
--- OUTSIDE RECORDS SUMMARY | 2024-03-02 18:41 | XMS_ITS | Continuity of Care Document ---
Author Organization [facility] Adult Address [address] [place] [address]- Care Team Providers Care Accountancy Professor Name Role Phone Rio ROBISON, Ginger Primary Care Physician [place] [facility] [place] Date(s): 06/21/20 - 07/21/20 [facility] Adult [address] [place] [address]- [facility] Allergies, Adverse Reactions, Alerts Substance Reaction Severity Status amoxicillin Active sulfa drugs Active Immunizations Given and Recorded Vaccine Date Status Refusal Reason influenza virus vaccine, inactivated 1 09/24/19 Gi mitch influenza virus vaccine, inactivated 2 08/06/17 Gi mitch influenza virus vaccine, inactivated 11/02/15 Give n pneumococcal 23-valent vaccine 03/01/15 Given tetanus/diphtheria/pertussis, acel(Tdap) 03/01/15 Given 1Result Comment: [facility][NOTE 3] [id number] 2Result Comment: [facility] [id number] Medications Advair Diskus 250 mcg-50 mcg inhalation powder 1, puffs, Inhalation, Every 12 hours, # 28 each, Refills 2, Tot. Refills 2, Maintenance, 04/10/18 16:19:35 EDT, Route to Pharmacy Electronically, [id number], [facility], please hold [...] 04/22/20 9:58:00 EDT, Route to Pharmacy Electronically, [facility], Rx resent from 05/11/19., 181, cm, 12/09/19 15:01:00 EST, Height, Dry Weight Start Date: 04/22/20 Status: Ordered atorvastatin 40 mg oral tablet 1 tablet = 40 mg, By Mouth, Daily, # 90 tablet, 1 Refills, Maintenance, 01/28/20 12:12:00 EDT, Tablet, [facility], 181, cm, 12/09/19 15:01:00 EST, Height, [...] 10/09/18 15:47:31 EST, Route to Pharmacy Electronically, [id number], [facility]; [facility] Start Date: [...] tablet, 0 Refills, Maintenance, 06/28/20 15:29:00 EDT, [facility], 181, cm, 12/09/19 15:01:00 EST, Height Start Date: 06/28/20 Status: Ordered glipiZIDE 10 mg oral tablet, extended release 1 tablet = 10 mg, By Mouth, 2 times a day, # 60 tablet, 5 Refills, Soft Stop, 05/31/20 13:04:00 EDT, [facility], 181, cm, 12/09/19 15:01:00 EST, Height Start Date: 05/31/20 Stop Date: 11/27/20 Status: Ordered ibuprofen 600 mg oral tablet 600 mg, 1, tablet, By Mouth, Every 6 hours, PRN, # 120 tablet, Refills 0, Tot. Refills 0, Maintenance, Pain, 01/08/20 15:02:00 EST, Route to Pharmacy Electronically, [facility], 181, cm, 12/09/19 15:01:00 EST, Height, [...] 2 Refills, Soft Stop, 05/31/20 12:48:00 EDT, [facility], 181, cm, 12/09/19 15:01:00 EST, Height, Dry Weight Start Date: 05/31/20 Status: Ordered levothyroxine 150 mcg (0.15 mg) oral tablet 1 tablet = 150 mcg, By Mouth, Daily, # 30 tablet, 5 Refills, Maintenance, 04/04/20 20:54:00 EDT, Tablet, [facility], 181, cm, 12/09/19 15:01:00 EST, Height, [...] 05/24/20 13:38:00 EDT, Route to Pharmacy Electronically, [facility], 181, cm, 12/09/19 15:01:00 EST, Height, Dry Weight Start Date: 05/24/20 Status: Ordered metFORMIN 1000 mg oral tablet 1 tablet = 1,000 mg, By Mouth, 2 times a day, # 60 tablet, 5 Refills, Maintenance, 04/29/20 12:49:00 EDT, [facility], 181, cm, 12/09/19 15:01:00 EST, Height, Dry Weight Start Date: 04/29/20 Status: Ordered Pen [place], 30 G x 8 mm BD [...] 07/17/1813:34:55 EDT, Aerosol, Route to Pharmacy Electronically, [id number], [facility] Start Date: 07/17/18 Stop Date: 08/16/18 Status: Ordered Prolixin DECANOATE Inj = 25 mg, Intramuscular, Every 21 days, 0 Refills, Maintenance, 01/19/19 14:36:12 EDT Start Date: 01/19/19 Status: Ordered tamsulosin 0.4 mg oral capsule 1, capsule, By Mouth, Daily, # 30 capsule, Refills 11, Tot. Refills 0, Maintenance, 05/09/20 8:55:00 EDT, Route to Pharmacy Electronically, [facility], 181, cm, 12/09/19 15:01:00 EST, Height Start Date: 05/09/20 Status: Ordered Viagra 50 mg oral tablet 1 tablet = 50 mg, By Mouth, Daily, PRN as needed for erectile dysfunction, 1 hour before sexual activity, # 5 tablet, 0 Refills, Maintenance, 12/09/19 15:44:00 EST, Tablet, [facility], 181,cm, 12/09/19 15:01:00 EST, Height, 100.6, [...]
--- OUTSIDE RECORDS SUMMARY | 2024-03-02 18:41 | XMS_ITS | Continuity of Care Document ---
Author Organization [facility] Adult Address [address] [place] [address]- Care Team Providers Care Us Customs And Border Officer Name Role Phone Rio ROBISON, Ginger Primary Care Physician Encounter [facility] Date(s): 03/07/23 - 04/06/23 [facility] Adult [address] [place] [address]- Allergies, Adverse Reactions, Alerts Substance Reaction Severity [...] tetanus-diphtheria toxoids (Td) 02/03/13 Recorded 1Result Comment: [facility] [id number] 2Result Comment: [facility] [phone] Medications albuterol 0.083% inhalation solution 3 mL = 2.5 mg, Inhalation, Every 6 hours, PRN for wheezing, DX COPD, # 60 each, 3 Refills, Maintenance, 10/21/20 16:57:00 EST, Solution, [facility], Partial fill upon patient request if theprescription is for a schedule II opioid drug., 181... Start Date: 10/21/20 Status: Ordered albuterol CFC free 90 mcg/inh inhalation aerosol 2, puffs, Inhalation, 4 times a day, PRN, # 18 Gm, Refills 11, Tot. Refills 11, Maintenance, 01/02/23 14:27:00 EST, Aerosol, Route to Pharmacy Electronically, [id number]_[id number], [facility], 181, cm, 01/02/23 13:54:00 EST, Height [...] Replace Required Details, Route to Pharmacy Electronically, [facility], 181, cm, 01/02/23 13:... Start Date: 01/04/23 Status: Ordered atorvastatin 40 mg oral tablet See Instructions, TAKE 1 TABLET BY MOUTH DAILY, # 30 tablet, 0 Refills, Maintenance, 03/28/23 15:47:00 EDT, [facility], 181, cm, 01/02/23 13:54:00 EST, Height Start Date: 03/28/23 Status: Ordered Azithromycin 5 Day Dose Pack 250 mg oral tablet 1 pack/packet, By Mouth, Once, # 6 tablet, 0 Refills, Soft Stop, 01/02/23 14:26:00 EST, Tablet, [facility], Partial fill upon patient request if [...] Date: 08/11/21 Status: Ordered COMFORT EZ MIS [id number] COMFORT EZ MIS [id number], See Instructions, # 100 each, Refills 5, Tot. Refills 5, Maintenance, USE TO INJECT INSULIN BID DX E11.9, 02/22/21 11:54:00 EDT, Supply, 181, cm, 02/06/21 11:06:00 EDT, Height Start Date: 02/22/21 Status: Ordered COMFORT EZ MIS [id number] COMFORT EZ MIS [id number], See Instructions, # 100 each, 2 Refills, [...] 10/09/18 15:47:31 EST, Route to Pharmacy Electronically, [id number], [facility] Start Date: [...] Gm, 11 Refills, Maintenance, 07/23/22 11:21:00 EDT, [place], [facility], Partial fill upon patient request if the prescription is for a schedule II opioid drug., 1 sprays Nares, Both 2 times a day, 18... Start Date: 07/23/22 Status: Ordered fluticasone/umeclidinium/vilanterol 100 mcg-62.5 mcg-25 mcg/inh inhalation powder 1 puffs, Inhalation, Daily, # 1 each, 11 Refills, Maintenance, 01/02/23 14:26:00 EST, [facility], Partial fill upon patient request if [...] tablet, 1 Refills, Maintenance, 03/28/23 16:39:00 EDT, [facility], 181, cm, 01/02/23 13:54:00 EST, Height [...] 30 mL, 4 Refills, 07/09/22 15:53:00 EDT, [facility], 181, cm, 07/09/22 14:59:00 EDT, Height Start Date: 07/09/22 Status: Ordered levothyroxine 150 mcg (0.15 mg) oral tablet 1 tablet, By Mouth, Daily, # 90 tablet, 2 Refills, Maintenance, 02/27/23 11:54:00 EDT, [facility], 181, cm, 01/02/23 13:54:00 EST, Height [...] 03/15/23 9:56:00 EDT, Route to Pharmacy Electronically, [facility], 181, cm, 01/02/23 13:54:00 EST, Height Start Date: 03/15/23 Status: Ordered metFORMIN 1000 mg oral tablet 1 tablet, By Mouth, 2 times a day, # 60 tablet, 4 Refills, Maintenance, 12/14/22 8:54:00 EST, [facility], 181, cm, 07/23/22 10:45:00 EDT, Height [...] 15 mL, 5 Refills, 12/27/22 14:29:00 EST, [facility], 181, cm, 09... Start Date: 12/27/22 Status: Ordered Pen [place], 30 G x 8 mm BD Ultra [...] tablet, 0 Refills, Maintenance, 01/02/23 14:26:00 EST, [facility], Partial fill upon patient request if [...] Team Personnel Name: Vandana Gibbs RN Position: [facility] RN Member Role: Primary Care Nurse Name: Ginger Pate MD Position: S Physician - Primary Care Member Role: PCP Address: Address: [address] [place] [address]- Care Team Related Persons Name: MARGARET RAMÍREZ Address: home [address] [place] [address]. [place] [address] Name: REINA RAMÍREZ Address: home [address] [place] [address] Name: LUZ DE LA CRUZ
--- OUTSIDE RECORDS SUMMARY | 2024-03-02 18:41 | XMS_ITS | Continuity of Care Document ---
Author Organization [facility] Adult Address [address] [place] [address]- Care Team Providers Care Chlorine Plant Operator Name Role Phone Rio ROBISON, Ginger Primary Care Physician [place] [facility]20 - 11/30/20 [facility] Adult [address] [place] [address]- Allergies, Adverse Reactions, Alerts Substance Reaction Severity Status amoxicillin Active sulfa drugs Active Immunizations Given and Recorded Vaccine Date Status Refusal Reason influenza virus vaccine, inactivated 1 09/24/19 Gi mitch influenza virus vaccine, inactivated 2 08/06/17 Gi mitch influenza virus vaccine, inactivated 11/02/15 Give n pneumococcal 23-valent vaccine 03/01/15 Given tetanus/diphtheria/pertussis, acel(Tdap) 03/01/15 Given 1Result Comment: [facility] [id number] 2Result Comment: [facility] [phone] Medications Advair Diskus 250 mcg-50 mcg inhalation powder 1, puffs, Inhalation, Every 12 hours, rinse mouth and throat after use, # 28 each, Refills 6, Tot. Refills 6, Maintenance, 10/21/20 13:08:00 EST, Route to Pharmacy Electronically, NCPDP_[id number], [facility], please hold for when symbicort... Start Date: 10/21/20 Stop Date: 05/19/21 Status: Ordered albuterol 0.083% inhalation solution 3 mL = 2.5 mg, Inhalation, Every 6 hours, PRN for wheezing, DX COPD, # 60 each, 3 Refills, Maintenance, 10/21/20 16:57:00 EST, Solution, [facility], Partial fill upon patient request if theprescription is for a schedule II opioid drug., 181... Start Date: 10/21/20 Status: Ordered albuterol CFC free 90 mcg/inh inhalation aerosol 2, puffs, Inhalation, 4 times a day, PRN, # 8.5 Gm, Refills 6, Tot. Refills 6, Maintenance, 11/30/20 15:47:00 EST, Aerosol, Route to Pharmacy Electronically, NCPDP_[id number], [facility], 181, cm, 10/21/20 11:47:00 EST, Height [...] 10/31/20 9:30:00 EST, Route to Pharmacy Electronically, [facility], Rx resent from 05/11/19., 181, cm, 10/21/20 11:47:00 EST, Height Start Date: 10/31/20 Status: Ordered atorvastatin 40 mg oral tablet 1 tablet = 40 mg, By Mouth, Daily, # 90 tablet, 1 Refills, Maintenance, 07/26/20 12:07:00 EDT, Tablet, [facility], 181, cm, 12/09/19 15:01:00 EST, Height, [...] 10/09/18 15:47:31 EST, Route to Pharmacy Electronically, [id number], [facility] Start Date: [...] tablet, 0 Refills, Maintenance, 10/24/20 10:05:00 EST, [facility], 181, cm, 10/21/20 11:47:00 EST, Height Start Date: 10/24/20 Status: Ordered ibuprofen 600 mg oral tablet 600 mg, 1, tablet, By Mouth, Every 6 hours, PRN, # 120 tablet, Refills 0, Tot. Refills 0, Maintenance, Pain, 01/08/20 15:02:00 EST, Route to Pharmacy Electronically, [facility], 181, cm, 12/09/19 15:01:00 EST, Height, 100.6, kg, 04/07/18 20:... Start Date: 01/08/20 Status: Ordered Incruse Ellipta 62.5 mcg/inh inhalation powder 1 each, Inhalation, Every 24 hours, doses should be taken at least 24 hours apart, # 1 each, 11 Refills, Maintenance, 10/25/20 15:07:00 EST, Powder, [facility], Partial fill upon patient request if [...] 5 Refills, Soft Stop, 10/25/20 9:50:00 EST, [facility], 181, cm, 10/21/20 11:47:00 EST, Height Start Date: 10/25/20 Status: Ordered levothyroxine 150 mcg (0.15 mg) oral tablet 1 tablet = 150 mcg, By Mouth, Daily, # 30 tablet, 5 Refills, Maintenance, 11/08/20 11:44:00 EST, Tablet, [facility], 181, cm, 10/21/20 11:47:00 EST, Height [...] 05/24/20 13:38:00 EDT, Route to Pharmacy Electronically, [facility], 181, cm, 12/09/19 15:01:00 EST, Height, Dry Weight Start Date: 05/24/20 Status: Ordered metFORMIN 1000 mg oral tablet 1 tablet = 1,000 mg, By Mouth, 2 times a day, # 60 tablet, 5 Refills, Maintenance, 11/01/20 9:36:00EST, [facility], 181, cm, 10/21/20 11:47:00 EST, Height [...] 12/13/20 13:20:00 EST, 11/01/20 13:20:00 EST, Patch, [facility], Partial fill upon patient request if the prescriptionis for a schedule II opioid drug., 1 patch Topicall... Start Date: 11/01/20 Stop Date: 12/13/20 Status: Ordered Pen [place], 30 G x 8 mm BD Ultra [...] 12:55:00 EST, Aerosol, Route to Pharmacy Electronically, NCPDP_[id number], [facility], 181, cm, 08/03/20 9:1... Start Date: 09/26/20 Stop Date: 03/25/21 Status: Ordered ProAir HFA 90 mcg/inh inhalation aerosol with adapter 2, puffs, Inhalation, Every 6 hours, PRN, use with spacer chamber, # 1 each, Refills 5, Tot. Refills 5, Maintenance, 03/25/21 12:55:00 EDT, Aerosol, Route to Pharmacy Electronically, NCPDP_[id number], [facility], 181, cm, 10/21/20 11:47:00 E... Start Date: 03/25/21 Stop Date: 09/21/21 Status: Ordered Prolixin DECANOATE Inj = 25 mg, Intramuscular, Every 21 days, 0 Refills, Maintenance, 01/19/19 14:36:12 EDT Start Date: 01/19/19 Status: Ordered tamsulosin 0.4 mg oral capsule 1, capsule, By Mouth, Daily, # 30 capsule, Refills 11, Tot. Refills 0, Maintenance, 05/09/20 8:55:00 EDT, Route to Pharmacy Electronically, [facility], 181, cm, 12/09/19 15:01:00 EST, Height Start Date: 05/09/20 Status: Ordered Viagra 50 mg oral tablet 1 tablet = 50 mg, By Mouth, Daily, PRN as needed for erectile dysfunction, 1 hour before sexual activity, # 5 tablet, 0 Refills, Maintenance, 12/09/19 15:44:00 EST, Tablet, [facility], 181,cm, 12/09/19 15:01:00 EST, Height, 100.6, [...]
--- OUTSIDE RECORDS SUMMARY | 2024-03-02 18:41 | XMS_ITS | Continuity of Care Document ---
Author Organization [facility] Adult Address [address] [place] [address]- Care Team Providers Care Laborer Golf Course Name Role Phone Rio ROBISON, Ginger Primary Care Physician Encounter [facility] Date(s): 10/21/20 - 11/20/20 [facility] Adult [address] [place] [address]- Allergies, Adverse Reactions, Alerts Substance Reaction Severity Status amoxicillin Active sulfa drugs Active Immunizations Given and Recorded Vaccine Date Status Refusal Reason influenza virus vaccine, inactivated 1 09/24/19 Gi mitch influenza virus vaccine, inactivated 2 08/06/17 Gi mitch influenza virus vaccine, inactivated 11/02/15 Give n pneumococcal 23-valent vaccine 03/01/15 Given tetanus/diphtheria/pertussis, acel(Tdap) 03/01/15 Given 1Result Comment: [facility] [id number] 2Result Comment: [facility] [id number] Medications Advair Diskus 250 mcg-50 mcg inhalation powder 1, puffs, Inhalation, Every 12 hours, rinse mouth and throat after use, # 28 each, Refills 6, Tot. Refills 6, Maintenance, 10/21/20 13:08:00 EST, Route to Pharmacy Electronically, NCPDP_[id number], [facility], please hold for when symbicort... Start Date: 10/21/20 Stop Date: 05/19/21 Status: Ordered albuterol 0.083% inhalation solution 3 mL = 2.5 mg, Inhalation, Every 6 hours, PRN for wheezing, DX COPD, # 60 each, 3 Refills, Maintenance, 10/21/20 16:57:00 EST, Solution, [facility], Partial fill upon patient request if [...] 10/31/20 9:30:00 EST, Route to Pharmacy Electronically, [facility], Rx resent from 05/11/19., 181, cm, 10/21/20 11:47:00 EST, Height Start Date: 10/31/20 Status: Ordered atorvastatin 40 mg oral tablet 1 tablet = 40 mg, By Mouth, Daily, # 90 tablet, 1 Refills, Maintenance, 07/26/20 12:07:00 EDT, Tablet, [facility], 181, cm, 12/09/19 15:01:00 EST, Height, [...] 10/09/18 15:47:31 EST, Route to Pharmacy Electronically, [id number], [facility]; [facility] Start Date: [...] tablet, 0 Refills, Maintenance, 10/24/20 10:05:00 EST, [facility], 181, cm, 10/21/20 11:47:00 EST, Height Start Date: 10/24/20 Status: Ordered ibuprofen 600 mg oral tablet 600 mg, 1, tablet, By Mouth, Every 6 hours, PRN, # 120 tablet, Refills 0, Tot. Refills 0, Maintenance, Pain, 01/08/20 15:02:00 EST, Route to Pharmacy Electronically, [facility], 181, cm, 12/09/19 15:01:00 EST, Height, 100.6, kg, 04/07/18 20:... Start Date: 01/08/20 Status: Ordered Incruse Ellipta 62.5 mcg/inh inhalation powder 1 each, Inhalation, Every 24 hours, doses should be taken at least 24 hours apart, # 1 each, 11 Refills, Maintenance, 10/25/20 15:07:00 EST, Powder, [facility], Partial fill upon patient request if [...] 5 Refills, Soft Stop, 10/25/20 9:50:00 EST, [facility], 181, cm, 10/21/20 11:47:00 EST, Height Start Date: 10/25/20 Status: Ordered levothyroxine 150 mcg (0.15 mg) oral tablet 1 tablet = 150 mcg, By Mouth, Daily, # 30 tablet, 5 Refills, Maintenance, 11/08/20 11:44:00 EST, Tablet, [facility], 181, cm, 10/21/20 11:47:00 EST, Height [...] 05/24/20 13:38:00 EDT, Route to Pharmacy Electronically, [facility], 181, cm, 12/09/19 15:01:00 EST, Height, Dry Weight Start Date: 05/24/20 Status: Ordered metFORMIN 1000 mg oral tablet 1 tablet = 1,000 mg, By Mouth, 2 times a day, # 60 tablet, 5 Refills, Maintenance, 11/01/20 9:36:00EST, [facility], 181, cm, 10/21/20 11:47:00 EST, Height [...] 12/13/20 13:20:00 EST, 11/01/20 13:20:00 EST, Patch, [facility], Partial fill upon patient request if the prescriptionis for a schedule II opioid drug., 1 patch Topicall... Start Date: 11/01/20 Stop Date: 12/13/20 Status: Ordered Pen [place], 30 G x 8 mm BD Ultra [...] 12:55:00 EST, Aerosol, Route to Pharmacy Electronically, NCPDP_[id number], [facility], 181, , 08/03/20 9:1... Start Date: 09/26/20 Stop Date: 03/25/21 Status: Ordered ProAir HFA 90 mcg/inh inhalation aerosol with adapter 2, puffs, Inhalation, Every 6 hours, PRN, use with spacer chamber, # 1 each, Refills 5, Tot. Refills 5, Maintenance, 03/25/21 12:55:00 EDT, Aerosol, Route to Pharmacy Electronically, NCPDP_[id number], [facility], 181, cm, 10/21/20 11:47:00 E... Start Date: 03/25/21 Stop Date: 09/21/21 Status: Ordered Prolixin DECANOATE Inj = 25 mg, Intramuscular, Every 21 days, 0 Refills, Maintenance, 01/19/19 14:36:12 EDT Start Date: 01/19/19 Status: Ordered tamsulosin 0.4 mg oral capsule 1, capsule, By Mouth, Daily, # 30 capsule, Refills 11, Tot. Refills 0, Maintenance, 05/09/20 8:55:00 EDT, Route to Pharmacy Electronically, [facility], 181, , 12/09/19 15:01:00 EST, Height Start Date: 05/09/20 Status: Ordered Viagra 50 mg oral tablet 1 tablet = 50 mg, By Mouth, Daily, PRN as needed for erectile dysfunction, 1 hour before sexual activity, # 5 tablet, 0 Refills, Maintenance, 12/09/19 15:44:00 EST, Tablet, [facility], 181,cm, 12/09/19 15:01:00 EST, Height, 100.6, [...]
--- OUTSIDE RECORDS SUMMARY | 2024-03-02 18:41 | XMS_ITS | Continuity of Care Document ---
Author Organization [facility] Adult Address [address] [place] [address]- Care Team Providers Care Wireless Communications Engineer Name Role Phone Rio ROBISON, Ginger Primary Care Physician Encounter [facility] [place] Date(s): 12/30/23 - 01/29/24 [facility] Adult [address] [place] [phone]- Allergies, Adverse Reactions, Alerts Substance Reaction Severity [...] tetanus-diphtheria toxoids (Td) 02/03/13 Recorded 1Result Comment: [facility] [id number] 2Result Comment: [facility] [id number] Medications albuterol 0.083% inhalation solution 3 mL = 2.5 mg, Inhalation, Every 6 hours, PRN for wheezing, DX COPD, # 60 each, 3 Refills, Maintenance, 10/21/20 16:57:00 EST, Solution, [facility], Partial fill upon patient request if theprescription is for a schedule II opioid drug., 181... Start Date: 10/21/20 Status: Ordered albuterol CFC free 90 mcg/inh inhalation aerosol 2, puffs, Inhalation, 4 times a day, PRN, # 1 each, Refills 11, Tot. Refills 11, Maintenance, 12/30/23 15:02:00 EST, Aerosol, [id number], cm, 12/30/23 12:59:00 EST, Height Start [...] 09/04/23 13:27:00 EDT, Route to Pharmacy Electronically, [facility], 183, cm, 06/27/23 10:36:00 EDT, Height Start Date: 09/04/23 Stop Date: 03/02/24 Status: Ordered atorvastatin 40 mg oral tablet 1 tablet = 40 mg, By Mouth, Daily, # 90 tablet, 2 Refills, Maintenance, 09/19/23 8:50:00 EST, [facility], 183, cm, 09/10/23 14:55:00 EDT, Height Start Date: 09/19/23 Status: Ordered Basaglar KwikPen 100 units/mL subcutaneous solution See Instructions, 45 units Subcutaneous Injection in morning and 35 units at bedtime Replacing Levemir not covered by insurance, # 15 mL, 5 Refills, Maintenance, 12/31/23 11:25:00 EST, Solution, [facility], Replacing Levemir not covered b... Start [...] Date: 06/27/23 Status: Ordered COMFORT EZ MIS [id number] COMFORT EZ MIS [id number], See Instructions, # 100 each, Refills 5, Tot. Refills 5, Maintenance, USE TO INJECT INSULIN BID DX E11.9, 02/22/21 11:54:00 EDT, Supply, 181, cm, 02/06/21 11:06:00 EDT, Height Start Date: 02/22/21 Status: Ordered COMFORT EZ MIS [id number] COMFORT EZ MIS [id number], See Instructions, # 100 each, 2 Refills, [...] Gm, 11 Refills, Maintenance, 07/23/22 11:21:00 EDT, [place], [facility], Partial fill upon patient request if [...] tablet, 1 Refills, Maintenance, 11/01/23 12:30:00 EST, [facility], 183, cm, 09/10/23 14:55:00 EDT, Height Start Date: 11/01/23 Status: Ordered Konsyl 100% oral powder for reconstitution = 7.5 Gm, By Mouth, 3 times a day, # 500 Gm, 0 Refills, Maintenance, 09/10/23 15:26:00 EDT, REC Powder, [facility], Partial fill upon patient request if the prescription is for a schedule II opioid drug., 183, cm, 09/10/23 14:55:00 EDT, Height Start Date: 09/10/23 Status: Ordered levothyroxine 150 mcg (0.15 mg) oral tablet 1 tablet, By Mouth, Daily, # 90 tablet, 2 Refills, Maintenance, 02/27/23 11:54:00 EDT, [facility], 181, cm, 01/02/23 13:54:00 EST, Height [...] 12/30/23 9:18:00 EST, Route to Pharmacy Electronically, [facility], 183, cm, 09/10/23 14:55:00 EDT, Height Start Date: 12/30/23 Status: Ordered metFORMIN 1000 mg oral tablet 1 tablet, By Mouth, 2 times a day, # 60 tablet, 5 Refills, Maintenance, 01/27/24 11:02:00 EDT, [facility], 183, cm, 12/30/23 12:59:00 EST, Height [...] 15 mL, 5 Refills, 12/27/22 14:29:00 EST, [facility], 181, cm, 09... Start Date: 12/27/22 Status: Ordered PEG-3350 with Electrolytes Lemon (Eqv-GoLYTELY) oral powder for reconstitution See Instructions, Per GI office instructions, # 4,000 mL, 0 Refills, Maintenance, 12/19/23 10:42:00EST, [facility], Partial fill upon patient request if the prescription is for a schedule II opioid drug., Per GI office instructions, 183, cm... Start Date: 12/19/23 Status: Ordered PEN NEEDLES [id number] PEN NEEDLES [id number], See Instructions, # 200 each, Refills 5, [...] Replace Required Details, Route to Pharmacy Electronically, [facility], 183, cm, 09/10/23 14:55:00... Start Date: [...] each, 11 Refills, Maintenance, 01/09/24 12:05:00 EST, [facility], 183, cm, 12/30/23 12:59:00 EST, Height [...] Primary Care Member Role: PCP Address: Address: [address] [place] [address] [address] [place] [address]- Care Team Related Persons Name: MARGARET RAMÍREZ Address: home [address] [place] [address]. [place] [address] Name: REINA RAMÍREZ Address: home [address] [place] [address] Name: LUZ DE LA CRUZ
--- OUTSIDE RECORDS SUMMARY | 2024-03-02 18:41 | XMS_ITS | Continuity of Care Document ---
Author Organization [facility] Adult Address [address] [place] [address]- Care Team Providers Care Waitstaff Name Role Phone Rio ROBISON, Ginger Primary Care Physician Encounter [facility] Date(s): 09/19/21 - 10/19/21 [facility] Adult [address] [place] [phone]- Allergies, Adverse Reactions, Alerts Substance Reaction Severity Status amoxicillin Active sulfa drugs Active Immunizations Given and Recorded Vaccine Date Status Refusal Reason influenza virus vaccine, inactivated 1 09/24/19 Gi mitch influenza virus vaccine, inactivated 2 08/06/17 Gi mitch influenza virus vaccine, inactivated 11/02/15 Give n pneumococcal 23-valent vaccine 03/01/15 Given tetanus/diphtheria/pertussis, acel(Tdap) 03/01/15 Given 1Result Comment: [facility] [id number] 2Result Comment: [facility] [id number] Medications albuterol 0.083% inhalation solution 3 mL = 2.5 mg, Inhalation, Every 6 hours, PRN for wheezing, DX COPD, # 60 each, 3 Refills, Maintenance, 10/21/20 16:57:00 EST, Solution, [facility], Partial fill upon patient request if theprescription is for a schedule II opioid drug., 181... Start Date: 10/21/20 Status: Ordered albuterol CFC free 90 mcg/inh inhalation aerosol 2, puffs, Inhalation, 4 times a day, PRN, # 18 Gm, Refills 11, Tot. Refills 11, Maintenance, 01/12/21 15:28:00 EST, Aerosol, Route to Pharmacy Electronically, NCPDP_[id number], [facility], 181, cm, 01/04/21 15:28:00 EST, Height [...] 11 Refills, Maintenance, 01/07/22 15:29:00 EST, Powder, [facility], Partial fill upon patient request if the prescription is for a schedule II opioid drug., 1 puffs Inhalation Daily,x30 days, 181, cm, 09... Start Date: 01/07/22 Stop Date: 01/02/23 Status: Ordered Anoro Ellipta 62.5 mcg-25 mcg/inh inhalation powder 1 puffs, Inhalation, Daily, for 30 days, # 1 each, 11 Refills, Hard Stop 01/07/22 15:29:00 EST, 01/12/21 15:29:00 EST, Powder, [facility], Partial fill upon patient request if [...] Replace Required Details, Route to Pharmacy Electronically, [facility], 181, cm, 02/06/21 11:06:0... Start Date: 06/15/21 Status: Ordered atorvastatin 40 mg oral tablet 1 tablet, By Mouth, Daily, # 90 tablet, 1 Refills, [facility], 181, cm, 08/09/21 14:56:00EDT, Height Start [...] Date: 08/11/21 Status: Ordered COMFORT EZ MIS [id number] COMFORT EZ MIS [id number], See Instructions, # 100 each, Refills 5, [...] 10/09/18 15:47:31 EST, Route to Pharmacy Electronically, [id number], [facility] Start Date: [...] day, # 270 tablet, 0 Refills, Maintenance, 09/28/21 15:26:00 EST, [facility], 181, cm, 08/09/21 14:56:00 EDT, Height Start Date: 09/28/21 Status: Ordered ibuprofen 600 mg oral tablet 600 mg, 1, tablet, By Mouth, Every 6 hours, PRN, # 120 tablet, Refills 0, Tot. Refills 0, Maintenance, Pain, 04/04/21 16:38:00 EDT, Route to Pharmacy Electronically, [facility], 181, cm, 02/06/21 11:06:00 EDT, Height [...] 5 Refills, Soft Stop, 10/25/20 9:50:00 EST, [facility], 181, cm, 10/21/20 11:47:00 EST, Height Start Date: 10/25/20 Status: Ordered levothyroxine 150 mcg (0.15 mg) oral tablet See Instructions, TAKE 1 TABLET BY MOUTH EVERY DAY, # 30 tablet, 2 Refills, [facility], 181, cm, 08/09/21 14:56:00 EDT, Height Start Date: 09/19/21 Status: Ordered lithium 300 mg oral tablet [...] tablet, Refills 5, Route to Pharmacy Electronically, [facility], 181, cm, 07/18/21 11:27:00 EDT, Height Start Date: 08/01/21 Status: Ordered metFORMIN 1000 mg oral tablet 1 tablet = 1,000 mg, By Mouth, 2 times a day, # 60 tablet, 5 Refills, Maintenance, 04/27/21 11:14:00 EDT, [facility], 181, cm, 02/06/21 11:06:00 EDT, Height [...] CALL PCP, # 15 mL, 2 Refills, [facility], 181, cm, 07/18/21 11:27:00 EDT, He... Start Date: 08/01/21 Status: Ordered Pen [place], 30 G x 8 mm BD Ultra [...] 06/08/21 16:19:00 EDT, Route to Pharmacy Electronically, [facility], 181, cm, 02/06/21 11:06:00 EDT, Height [...] Response Smoking Status Current every day miguel drummnod; Tobacco user in household: Yes; Type: Cigarettes; Tobacco use times per day: 1/2 PPD; entered on: 08/09/16 Sex
--- OUTSIDE RECORDS SUMMARY | 2024-03-02 18:41 | XMS_ITS | Continuity of Care Document ---
Author Organization [facility] Adult Address [address] [place] [address]- Care Team Providers Care Continuous Improvement Coach Name Role Phone Rio ROBISON, Ginger Primary Care Physician Encounter [facility] [place] Date(s): 03/13/22 - 04/12/22 [facility] Adult [address] [place] [id number]- Attending Physician: AdmEricka mora Admitting Physician: Admtr, Ar8 Referring Physician: Admtr, [...] Given 1Result Comment: [facility] [id number] 2Result Comment: [facility] [id number] Medications albuterol 0.083% inhalation solution 3 mL = 2.5 mg, Inhalation, Every 6 hours, PRN for wheezing, DX COPD, # 60 each, 3 Refills, Maintenance, 10/21/20 16:57:00 EST, Solution, [facility], Partial fill upon patient request if theprescription is for a schedule II opioid drug., 181... Start Date: 10/21/20 Status: Ordered albuterol CFC free 90 mcg/inh inhalation aerosol 2, puffs, Inhalation, 4 times a day, PRN, # 18 Gm, Refills 11, Tot. Refills 11, Maintenance, 01/12/21 15:28:00 EST, Aerosol, Route to Pharmacy Electronically, NCPDP_[id number], [facility], 181, cm, 01/04/21 15:28:00 EST, Height Start Date: 01/12/21 Stop Date: 01/07/22 Status: Ordered albuterol CFC free 90 mcg/inh inhalation aerosol 2, puffs, Inhalation, 4 times a day, PRN, # 18 Gm, Refills 11, Tot. Refills 11, Maintenance, 01/15/22 11:28:00 EST, Aerosol, Route to Pharmacy Electronically, NCPDP_[id number], [facility], 181, cm, 01/15/22 11:07:00 EST, Height [...] 11 Refills, Maintenance, 01/07/22 15:29:00 EST, Powder, [facility], Partial fill upon patient request if [...] Instructions ReplaceRequired Details, Route to Pharmacy Electronically, [facility], 181, cm, 08/09/21 14:56:00 EDT, Height Start Date: 01/02/22 Status: Ordered atorvastatin 40 mg oral tablet 1 tablet, By Mouth, Daily, # 90 tablet, 1 Refills, [facility], 181, cm, 08/09/21 14:56:00EDT, Height Start [...] Date: 08/11/21 Status: Ordered COMFORT EZ MIS [id number] COMFORT EZ MIS [id number], See Instructions, # 100 each, Refills 5, Tot. Refills 5, Maintenance, USE TO INJECT INSULIN BID DX E11.9, 02/22/21 11:54:00 EDT, Supply, 181, cm, 02/06/21 11:06:00 EDT, Height Start Date: 02/22/21 Status: Ordered COMFORT EZ MIS [id number] COMFORT EZ MIS [id number], See Instructions, # 100 each, 2 Refills, [...] 10/09/18 15:47:31 EST, Route to Pharmacy Electronically, [id number], [facility] Start Date: 10/09/18 Status: [...] tablet, 0 Refills, Maintenance, 02/01/22 7:20:00 EDT, [facility], 181, cm, 01/15/22 11:07:00 EST, Height Start Date: 02/01/22 Status: Ordered ibuprofen 600 mg oral tablet 600 mg, 1, tablet, By Mouth, Every 6 hours, PRN, # 120 tablet, Refills 0, Tot. Refills 0, Maintenance, Pain, 04/04/21 16:38:00 EDT, Route to Pharmacy Electronically, [facility], 181, cm, 02/06/21 11:06:00 EDT, Height [...] AT BEDTIME, # 30 mL, 4 Refills, [facility], 181, cm, 08/09/21 14:56:00 EDT, Height Start Date: 11/08/21 Status: Ordered levothyroxine 150 mcg (0.15 mg) oral tablet 1 tablet, By Mouth, Daily, # 30 tablet, 5 Refills, [facility], 181, cm, 08/09/21 14:56:00EDT, Height Start [...] tablet, Refills 5, Route to Pharmacy Electronically, [facility], 181, cm, 01/15/22 11:07:00 EST, Height Start Date: 02/01/22 Status: Ordered metFORMIN 1000 mg oral tablet 1 tablet, By Mouth, 2 times a day, # 60 tablet, 5 Refills, [facility], 181, cm, 08/09/21 14:56:00 EDT, Height Start [...] CALL PCP, # 15 mL, 5 Refills, [facility], 181, cm, 01/15/22 11:07:00 EST, He... Start Date: 03/29/22 Status: Ordered Pen [place], 30 G x 8 mm BD Ultra [...] 06/08/21 16:19:00 EDT, Route to Pharmacy Electronically, [facility], 181, cm, 02/06/21 11:06:00 EDT, Height [...]
--- OUTSIDE RECORDS SUMMARY | 2024-03-02 18:41 | XMS_ITS | Continuity of Care Document ---
Author Organization [facility] Adult Address [address] [place] [address]- Care Team Providers Care Casework Specialist Name Role Phone Rio ROBISON, Ginger Primary Care Physician Encounter [facility] [place] Date(s): 06/28/20 - 07/28/20 [facility] Adult [address] [place] [address]- [facility] Allergies, Adverse Reactions, Alerts Substance Reaction Severity Status amoxicillin Active sulfa drugs Active Immunizations Given and Recorded Vaccine Date Status Refusal Reason influenza virus vaccine, inactivated 1 09/24/19 Gi mitch influenza virus vaccine, inactivated 2 08/06/17 Gi mitch influenza virus vaccine, inactivated 11/02/15 Give n pneumococcal 23-valent vaccine 03/01/15 Given tetanus/diphtheria/pertussis, acel(Tdap) 03/01/15 Given 1Result Comment: [facility] [id number] 2Result Comment: [facility] [id number] Medications Advair Diskus 250 mcg-50 mcg inhalation powder 1, puffs, Inhalation, Every 12 hours, # 28 each, Refills 2, Tot. Refills 2, Maintenance, 04/10/18 16:19:35 EDT, Route to Pharmacy Electronically, [id number], [facility], please hold [...] 04/22/20 9:58:00 EDT, Route to Pharmacy Electronically, [facility], Rx resent from 05/11/19., 181, cm, 12/09/19 15:01:00 EST, Height, Dry Weight Start Date: 04/22/20 Status: Ordered atorvastatin 40 mg oral tablet 1 tablet = 40 mg, By Mouth, Daily, # 90 tablet, 1 Refills, Maintenance, 07/26/20 12:07:00 EDT, Tablet, [facility], 181, cm, 12/09/19 15:01:00 EST, Height, [...] 10/09/18 15:47:31 EST, Route to Pharmacy Electronically, [id number], [facility] Start Date: [...] tablet, 0 Refills, Maintenance, 06/28/20 15:29:00 EDT, [facility], 181, cm, 12/09/19 15:01:00 EST, Height Start Date: 06/28/20 Status: Ordered glipiZIDE 10 mg oral tablet, extended release 1 tablet = 10 mg, By Mouth, 2 times a day, # 60 tablet, 5 Refills, Soft Stop, 05/31/20 13:04:00 EDT, [facility], 181, cm, 12/09/19 15:01:00 EST, Height Start Date: 05/31/20 Stop Date: 11/27/20 Status: Ordered ibuprofen 600 mg oral tablet 600 mg, 1, tablet, By Mouth, Every 6 hours, PRN, # 120 tablet, Refills 0, Tot. Refills 0, Maintenance, Pain, 01/08/20 15:02:00 EST, Route to Pharmacy Electronically, [facility], 181, cm, 12/09/19 15:01:00 EST, Height, [...] 2 Refills, Soft Stop, 05/31/20 12:48:00 EDT, [facility], 181, cm, 12/09/19 15:01:00 EST, Height, Dry Weight Start Date: 05/31/20 Status: Ordered levothyroxine 150 mcg (0.15 mg) oral tablet 1 tablet = 150 mcg, By Mouth, Daily, # 30 tablet, 5 Refills, Maintenance, 04/04/20 20:54:00 EDT, Tablet, [facility], 181, cm, 12/09/19 15:01:00 EST, Height, [...] 05/24/20 13:38:00 EDT, Route to Pharmacy Electronically, [facility], 181, cm, 12/09/19 15:01:00 EST, Height, Dry Weight Start Date: 05/24/20 Status: Ordered metFORMIN 1000 mg oral tablet 1 tablet = 1,000 mg, By Mouth, 2 times a day, # 60 tablet, 5 Refills, Maintenance, 04/29/20 12:49:00 EDT, [facility], 181, cm, 12/09/19 15:01:00 EST, Height, Dry Weight Start Date: 04/29/20 Status: Ordered Pen [place], 30 G x 8 mm BD Ultra [...] 07/17/1813:34:55 EDT, Aerosol, Route to Pharmacy Electronically, [id number], [facility] Start Date: 07/17/18 Stop Date: 08/16/18 Status: Ordered Prolixin DECANOATE Inj = 25 mg, Intramuscular, Every 21 days, 0 Refills, Maintenance, 01/19/19 14:36:12 EDT Start Date: 01/19/19 Status: Ordered tamsulosin 0.4 mg oral capsule 1, capsule, By Mouth, Daily, # 30 capsule, Refills 11, Tot. Refills 0, Maintenance, 05/09/20 8:55:00 EDT, Route to Pharmacy Electronically, [facility], 181, cm, 12/09/19 15:01:00 EST, Height Start Date: 05/09/20 Status: Ordered Viagra 50 mg oral tablet 1 tablet = 50 mg, By Mouth, Daily, PRN as needed for erectile dysfunction, 1 hour before sexual activity, # 5 tablet, 0 Refills, Maintenance, 12/09/19 15:44:00 EST, Tablet, [facility], 181,cm, 12/09/19 15:01:00 EST, Height, 100.6, [...]
--- OUTSIDE RECORDS SUMMARY | 2024-03-02 18:41 | XMS_ITS | Continuity of Care Document ---
Author Organization [facility] Adult Address [address] [place] [address]- Care Team Providers Care Reject Opener Name Role Phone Rio ROBISON, Ginger Primary Care Physician [place] [facility] - 04/04/22 [facility] [address] [place] [address]- Allergies, Adverse Reactions, Alerts Substance Reaction Severity Status amoxicillin Active sulfa drugs Active Immunizations Given and Recorded Vaccine Date Status Refusal Reason influenza virus vaccine, inactivated 1 09/24/19 Gi mitch influenza virus vaccine, inactivated 2 08/06/17 Gi mitch influenza virus vaccine, inactivated 11/02/15 Give n pneumococcal 23-valent vaccine 03/01/15 Given tetanus/diphtheria/pertussis, acel(Tdap) 03/01/15 Given 1Result Comment: [facility] [id number] 2Result Comment: [facility] [id number] Medications albuterol 0.083% inhalation solution 3 mL = 2.5 mg, Inhalation, Every 6 hours, PRN for wheezing, DX COPD, # 60 each, 3 Refills, Maintenance, 10/21/20 16:57:00 EST, Solution, [facility], Partial fill upon patient request if theprescription is for a schedule II opioid drug., 181... Start Date: 10/21/20 Status: Ordered albuterol CFC free 90 mcg/inh inhalation aerosol 2, puffs, Inhalation, 4 times a day, PRN, # 18 Gm, Refills 11, Tot. Refills 11, Maintenance, 01/12/21 15:28:00 EST, Aerosol, Route to Pharmacy Electronically, NCPDP_[id number], [facility], 181, cm, 01/04/21 15:28:00 EST, Height Start Date: 01/12/21 Stop Date: 01/07/22 Status: Ordered albuterol CFC free 90 mcg/inh inhalation aerosol 2, puffs, Inhalation, 4 times a day, PRN, # 18 Gm, Refills 11, Tot. Refills 11, Maintenance, 01/15/22 11:28:00 EST, Aerosol, Route to Pharmacy Electronically, NCPDP_[id number], [facility], 181, cm, 01/15/22 11:07:00 EST, Height [...] 11 Refills, Maintenance, 01/07/22 15:29:00 EST, Powder, [facility], Partial fill upon patient request if [...] Instructions ReplaceRequired Details, Route to Pharmacy Electronically, [facility], 181, cm, 08/09/21 14:56:00 EDT, Height Start Date: 01/02/22 Status: Ordered atorvastatin 40 mg oral tablet 1 tablet, By Mouth, Daily, # 90 tablet, 1 Refills, [facility], 181, cm, 08/09/21 14:56:00EDT, Height Start [...] Date: 08/11/21 Status: Ordered COMFORT EZ MIS [id number] COMFORT EZ MIS [id number], See Instructions, # 100 each, Refills 5, Tot. Refills 5, Maintenance, USE TO INJECT INSULIN BID DX E11.9, 02/22/21 11:54:00 EDT, Supply, 181, cm, 02/06/21 11:06:00 EDT, Height Start Date: 02/22/21 Status: Ordered COMFORT EZ MIS [id number] COMFORT EZ MIS [id number], See Instructions, # 100 each, 2 Refills, [...] 10/09/18 15:47:31 EST, Route to Pharmacy Electronically, [id number], [facility] Start Date: [...] tablet, 0 Refills, Maintenance, 02/01/22 7:20:00 EDT, [facility], 181, cm, 01/15/22 11:07:00 EST, Height Start Date: 02/01/22 Status: Ordered ibuprofen 600 mg oral tablet 600 mg, 1, tablet, By Mouth, Every 6 hours, PRN, # 120 tablet, Refills 0, Tot. Refills 0, Maintenance, Pain, 04/04/21 16:38:00 EDT, Route to Pharmacy Electronically, [facility], 181, cm, 02/06/21 11:06:00 EDT, Height [...] AT BEDTIME, # 30 mL, 4 Refills, [facility], 181, cm, 08/09/21 14:56:00 EDT, Height Start Date: 11/08/21 Status: Ordered levothyroxine 150 mcg (0.15 mg) oral tablet 1 tablet, By Mouth, Daily, # 30 tablet, 5 Refills, [facility], 181, cm, 08/09/21 14:56:00EDT, Height Start [...] tablet, Refills 5, Route to Pharmacy Electronically, [facility], 181, cm, 01/15/22 11:07:00 EST, Height Start Date: 02/01/22 Status: Ordered metFORMIN 1000 mg oral tablet 1 tablet, By Mouth, 2 times a day, # 60 tablet, 5 Refills, [facility], 181, cm, 08/09/21 14:56:00 EDT, Height [...] CALL PCP, # 15 mL, 5 Refills, [facility], 181, cm, 01/15/22 11:07:00 EST, He... Start Date: 03/29/22 Status: Ordered Pen [place], 30 G x 8 mm BD Ultra [...] 06/08/21 16:19:00 EDT, Route to Pharmacy Electronically, [facility], 181, cm, 02/06/21 11:06:00 EDT, Height [...]
--- OUTSIDE RECORDS SUMMARY | 2024-03-02 18:41 | XMS_ITS | Continuity of Care Document ---
Author Organization [facility] Adult Address [address] [place] [address]- Care Team Providers Care Green Meat Packer Name Role Phone Rio ROBISON, Ginger Primary Care Physician Encounter [facility] Date(s): 11/01/20 - 12/01/20 [facility] Adult [address] [place] [address]- Allergies, Adverse Reactions, Alerts Substance Reaction Severity Status amoxicillin Active sulfa drugs Active Immunizations Given and Recorded Vaccine Date Status Refusal Reason influenza virus vaccine, inactivated 1 09/24/19 Gi mitch influenza virus vaccine, inactivated 2 08/06/17 Gi mitch influenza virus vaccine, inactivated 11/02/15 Give n pneumococcal 23-valent vaccine 03/01/15 Given tetanus/diphtheria/pertussis, acel(Tdap) 03/01/15 Given 1Result Comment: [facility] [id number] 2Result Comment: [facility] [phone] Medications Advair Diskus 250 mcg-50 mcg inhalation powder 1, puffs, Inhalation, Every 12 hours, rinse mouth and throat after use, # 28 each, Refills 6, Tot. Refills 6, Maintenance, 10/21/20 13:08:00 EST, Route to Pharmacy Electronically, NCPDP_[id number], [facility], please hold for when symbicort... Start Date: 10/21/20 Stop Date: 05/19/21 Status: Ordered albuterol 0.083% inhalation solution 3 mL = 2.5 mg, Inhalation, Every 6 hours, PRN for wheezing, DX COPD, # 60 each, 3 Refills, Maintenance, 10/21/20 16:57:00 EST, Solution, [facility], Partial fill upon patient request if theprescription is for a schedule II opioid drug., 181... Start Date: 10/21/20 Status: Ordered albuterol CFC free 90 mcg/inh inhalation aerosol 2, puffs, Inhalation, 4 times a day, PRN, # 8.5 Gm, Refills 6, Tot. Refills 6, Maintenance, 11/30/20 15:47:00 EST, Aerosol, Route to Pharmacy Electronically, NCPDP_[id number], [facility], 181, cm, 10/21/20 11:47:00 EST, Height [...] 10/31/20 9:30:00 EST, Route to Pharmacy Electronically, [facility], Rx resent from 05/11/19., 181, cm, 10/21/20 11:47:00 EST, Height Start Date: 10/31/20 Status: Ordered atorvastatin 40 mg oral tablet 1 tablet = 40 mg, By Mouth, Daily, # 90 tablet, 1 Refills, Maintenance, 07/26/20 12:07:00 EDT, Tablet, [facility], 181, cm, 12/09/19 15:01:00 EST, Height, [...] 10/09/18 15:47:31 EST, Route to Pharmacy Electronically, [id number], [facility]; [facility] Start Date: [...] tablet, 0 Refills, Maintenance, 10/24/20 10:05:00 EST, [facility], 181, cm, 10/21/20 11:47:00 EST, Height Start Date: 10/24/20 Status: Ordered ibuprofen 600 mg oral tablet 600 mg, 1, tablet, By Mouth, Every 6 hours, PRN, # 120 tablet, Refills 0, Tot. Refills 0, Maintenance, Pain, 01/08/20 15:02:00 EST, Route to Pharmacy Electronically, [facility], 181, cm, 12/09/19 15:01:00 EST, Height, 100.6, kg, 04/07/18 20:... Start Date: 01/08/20 Status: Ordered Incruse Ellipta 62.5 mcg/inh inhalation powder 1 each, Inhalation, Every 24 hours, doses should be taken at least 24 hours apart, # 1 each, 11 Refills, Maintenance, 10/25/20 15:07:00 EST, Powder, [facility], Partial fill upon patient request if [...] 5 Refills, Soft Stop, 10/25/20 9:50:00 EST, [facility], 181, cm, 10/21/20 11:47:00 EST, Height Start Date: 10/25/20 Status: Ordered levothyroxine 150 mcg (0.15 mg) oral tablet 1 tablet = 150 mcg, By Mouth, Daily, # 30 tablet, 5 Refills, Maintenance, 11/08/20 11:44:00 EST, Tablet, [facility], 181, cm, 10/21/20 11:47:00 EST, Height [...] 05/24/20 13:38:00 EDT, Route to Pharmacy Electronically, [facility], 181, cm, 12/09/19 15:01:00 EST, Height, Dry Weight Start Date: 05/24/20 Status: Ordered metFORMIN 1000 mg oral tablet 1 tablet = 1,000 mg, By Mouth, 2 times a day, # 60 tablet, 5 Refills, Maintenance, 11/01/20 9:36:00EST, [facility], 181, cm, 10/21/20 11:47:00 EST, Height [...] 12/13/20 13:20:00 EST, 11/01/20 13:20:00 EST, Patch, [facility], Partial fill upon patient request if the prescriptionis for a schedule II opioid drug., 1 patch Topicall... Start Date: 11/01/20 Stop Date: 12/13/20 Status: Ordered Pen [place], 30 G x 8 mm BD Ultra [...] 12:55:00 EST, Aerosol, Route to Pharmacy Electronically, NCPDP_[id number], [facility], 181, cm, 08/03/20 9:1... Start Date: 09/26/20 Stop Date: 03/25/21 Status: Ordered ProAir HFA 90 mcg/inh inhalation aerosol with adapter 2, puffs, Inhalation, Every 6 hours, PRN, use with spacer chamber, # 1 each, Refills 5, Tot. Refills 5, Maintenance, 03/25/21 12:55:00 EDT, Aerosol, Route to Pharmacy Electronically, NCPDP_[id number], [facility], 181, cm, 10/21/20 11:47:00 E... Start Date: 03/25/21 Stop Date: 09/21/21 Status: Ordered Prolixin DECANOATE Inj = 25 mg, Intramuscular, Every 21 days, 0 Refills, Maintenance, 01/19/19 14:36:12 EDT Start Date: 01/19/19 Status: Ordered tamsulosin 0.4 mg oral capsule 1, capsule, By Mouth, Daily, # 30 capsule, Refills 11, Tot. Refills 0, Maintenance, 05/09/20 8:55:00 EDT, Route to Pharmacy Electronically, [facility], 181, cm, 12/09/19 15:01:00 EST, Height Start Date: 05/09/20 Status: Ordered Viagra 50 mg oral tablet 1 tablet = 50 mg, By Mouth, Daily, PRN as needed for erectile dysfunction, 1 hour before sexual activity, # 5 tablet, 0 Refills, Maintenance, 12/09/19 15:44:00 EST, Tablet, [facility], 181,cm, 12/09/19 15:01:00 EST, Height, 100.6, [...]
--- OUTSIDE RECORDS SUMMARY | 2024-03-02 18:41 | XMS_ITS | Continuity of Care Document ---
Author Organization [facility] Adult Address [address] [place] [address]- Care Team Providers Care Sprayer Machine Name Role Phone Rio ROBISON, Ginger Primary Care Physician [place] [facility] [place]23 [place] 07/24/23 [facility] Adult [address] [place] [phone]- Allergies, Adverse Reactions, Alerts Substance Reaction Severity [...] 02/03/13 Recorded 1Result Comment: [facility] [id number] 2Result Comment: [facility] [id number] Medications albuterol 0.083% inhalation solution 3 mL = 2.5 mg, Inhalation, Every 6 hours, PRN for wheezing, DX COPD, # 60 each, 3 Refills, Maintenance, 10/21/20 16:57:00 EST, Solution, [facility], Partial fill upon patient request if theprescription is for a schedule II opioid drug., 181... Start Date: 10/21/20 Status: Ordered albuterol CFC free 90 mcg/inh inhalation aerosol 2, puffs, Inhalation, 4 times a day, PRN, # 18 Gm, Refills 11, Tot. Refills 11, Maintenance, 01/02/23 14:27:00 EST, Aerosol, Route to Pharmacy Electronically, NCPDP_[id number], [facility], 181, cm, 01/02/23 13:54:00 EST, Height [...] Replace Required Details, Route to Pharmacy Electronically, [facility], 181, cm, 01/02/23 13:... Start Date: 01/04/23 Status: Ordered atorvastatin 40 mg oral tablet See Instructions, TAKE 1 TABLET BY MOUTH DAILY, # 30 tablet, 0 Refills, Maintenance, 03/28/23 15:47:00 EDT, [facility], 181, cm, 01/02/23 13:54:00 EST, Height [...] Date: 06/27/23 Status: Ordered COMFORT EZ MIS [id number] COMFORT EZ MIS [id number], See Instructions, # 100 each, Refills 5, Tot. Refills 5, Maintenance, USE TO INJECT INSULIN BID DX E11.9, 02/22/21 11:54:00 EDT, Supply, 181, cm, 02/06/21 11:06:00 EDT, Height Start Date: 02/22/21 Status: Ordered COMFORT EZ MIS [id number] COMFORT EZ MIS [id number], See Instructions, # 100 each, 2 Refills, [...] Gm, 11 Refills, Maintenance, 07/23/22 11:21:00 EDT, [place], [facility], Partial fill upon patient request if the prescription is for a schedule II opioid drug., 1 sprays Nares, Both 2 times a day, 18... Start Date: 07/23/22 Status: Ordered fluticasone/umeclidinium/vilanterol 100 mcg-62.5 mcg-25 mcg/inh inhalation powder 1 puffs, Inhalation, Daily, # 1 each, 11 Refills, Maintenance, 01/02/23 14:26:00 EST, [facility], Partial fill upon patient request [...] tablet, 1 Refills, Maintenance, 03/28/23 16:39:00 EDT, [facility], 181, cm, 01/02/23 13:54:00 EST, Height Start Date: 03/28/23 Status: Ordered Levemir FlexTouch 100 units/mL subcutaneous solution See Instructions, INJECT 30 UNITS SUBCUTANEOUSLY EVERY NIGHT AT BEDTIME, # 30 mL, 4 Refills, 07/09/22 15:53:00 EDT, [facility], 181, cm, 07/09/22 14:59:00 EDT, Height Start Date: 07/09/22 Status: Ordered levothyroxine 150 mcg (0.15 mg) oral tablet 1 tablet, By Mouth, Daily, # 90 tablet, 2 Refills, Maintenance, 02/27/23 11:54:00 EDT, [facility], 181, cm, 01/02/23 13:54:00 EST, Height [...] 03/15/23 9:56:00 EDT, Route to Pharmacy Electronically, [facility], 181, cm, 01/02/23 13:54:00 EST, Height Start Date: 03/15/23 Status: Ordered metFORMIN 1000 mg oral tablet 1 tablet, By Mouth, 2 times a day, # 60 tablet, 5 Refills, Maintenance, 05/30/23 11:36:00 EDT, [facility], 180.3, cm, 04/10/23 15:18:00 EDT, Height [...] 15 mL, 5 Refills, 12/27/22 14:29:00 EST, [facility], 181, cm, 09... Start Date: 12/27/22 Status: Ordered Pen [place], 30 G x 8 mm BD Ultra [...] Replace Required Details, Route to Pharmacy Electronically, [facility], 180.3, cm, 04/10/23 15:18:... Start Date: [...] Care Member Role: PCP Address: Address: [address] [place] [address] [address] [place] [address]- Care Team Related Persons Name: MARGARET RAMÍREZ Address: home [address] [place] [address] Name: REINA RAMÍREZ Address: home [address] [place] [address] Name: LUZ DE LA CRUZ
--- OUTSIDE RECORDS SUMMARY | 2024-03-02 18:41 | XMS_ITS | Continuity of Care Document ---
Author Organization [facility] Adult Address [address] [place] [address]- Care Team Providers Care Field Clerk Name Role Phone Rio ROBISON, Ginger Primary Care Physician [place] [facility] [place] Date(s): 06/10/20 - 07/10/20 [facility] Adult [address] [place] [address]- [facility] Allergies, Adverse Reactions, Alerts Substance Reaction Severity Status amoxicillin Active sulfa drugs Active Immunizations Given and Recorded Vaccine Date Status Refusal Reason influenza virus vaccine, inactivated 1 09/24/19 Gi mitch influenza virus vaccine, inactivated 2 08/06/17 Gi mitch influenza virus vaccine, inactivated 11/02/15 Give n pneumococcal 23-valent vaccine 03/01/15 Given tetanus/diphtheria/pertussis, acel(Tdap) 03/01/15 Given 1Result Comment: [facility] [id number] 2Result Comment: [facility] [id number] Medications Advair Diskus 250 mcg-50 mcg inhalation powder 1, puffs, Inhalation, Every 12 hours, # 28 each, Refills 2, Tot. Refills 2, Maintenance, 04/10/18 16:19:35 EDT, Route to Pharmacy Electronically, [id number], [facility], please hold [...] 04/22/20 9:58:00 EDT, Route to Pharmacy Electronically, [facility], Rx resent from 05/11/19., 181, cm, 12/09/19 15:01:00 EST, Height, Dry Weight Start Date: 04/22/20 Status: Ordered atorvastatin 40 mg oral tablet 1 tablet = 40 mg, By Mouth, Daily, # 90 tablet, 1 Refills, Maintenance, 01/28/20 12:12:00 EDT, Tablet, [facility], 181, cm, 12/09/19 15:01:00 EST, Height, [...] 10/09/18 15:47:31 EST, Route to Pharmacy Electronically, [id number], [facility]; [facility] Start Date: [...] tablet, 0 Refills, Maintenance, 06/28/20 15:29:00 EDT, [facility], 181, cm, 12/09/19 15:01:00 EST, Height Start Date: 06/28/20 Status: Ordered glipiZIDE 10 mg oral tablet, extended release 1 tablet = 10 mg, By Mouth, 2 times a day, # 60 tablet, 5 Refills, Soft Stop, 05/31/20 13:04:00 EDT, [facility], 181, cm, 12/09/19 15:01:00 EST, Height Start Date: 05/31/20 Stop Date: 11/27/20 Status: Ordered ibuprofen 600 mg oral tablet 600 mg, 1, tablet, By Mouth, Every 6 hours, PRN, # 120 tablet, Refills 0, Tot. Refills 0, Maintenance, Pain, 01/08/20 15:02:00 EST, Route to Pharmacy Electronically, [facility], 181, cm, 12/09/19 15:01:00 EST, Height, [...] 2 Refills, Soft Stop, 05/31/20 12:48:00 EDT, [facility], 181, cm, 12/09/19 15:01:00 EST, Height, Dry Weight Start Date: 05/31/20 Status: Ordered levothyroxine 150 mcg (0.15 mg) oral tablet 1 tablet = 150 mcg, By Mouth, Daily, # 30 tablet, 5 Refills, Maintenance, 04/04/20 20:54:00 EDT, Tablet, [facility], 181, cm, 12/09/19 15:01:00 EST, Height, [...] 05/24/20 13:38:00 EDT, Route to Pharmacy Electronically, [facility], 181, cm, 12/09/19 15:01:00 EST, Height, Dry Weight Start Date: 05/24/20 Status: Ordered metFORMIN 1000 mg oral tablet 1 tablet = 1,000 mg, By Mouth, 2 times a day, # 60 tablet, 5 Refills, Maintenance, 04/29/20 12:49:00 EDT, [facility], 181, cm, 12/09/19 15:01:00 EST, Height, Dry Weight Start Date: 04/29/20 Status: Ordered Pen [place], 30 G x 8 mm BD Ultra [...] 07/17/1813:34:55 EDT, Aerosol, Route to Pharmacy Electronically, [id number], [facility] Start Date: 07/17/18 Stop Date: 08/16/18 Status: Ordered Prolixin DECANOATE Inj = 25 mg, Intramuscular, Every 21 days, 0 Refills, Maintenance, 01/19/19 14:36:12 EDT Start Date: 01/19/19 Status: Ordered tamsulosin 0.4 mg oral capsule 1, capsule, By Mouth, Daily, # 30 capsule, Refills 11, Tot. Refills 0, Maintenance, 05/09/20 8:55:00 EDT, Route to Pharmacy Electronically, [facility], 181, cm, 12/09/19 15:01:00 EST, Height Start Date: 05/09/20 Status: Ordered Viagra 50 mg oral tablet 1 tablet = 50 mg, By Mouth, Daily, PRN as needed for erectile dysfunction, 1 hour before sexual activity, # 5 tablet, 0 Refills, Maintenance, 12/09/19 15:44:00 EST, Tablet, [facility], 181,cm, 12/09/19 15:01:00 EST, Height, 100.6, [...]
--- OUTSIDE RECORDS SUMMARY | 2024-03-02 18:41 | XMS_ITS | Continuity of Care Document ---
Author Organization [facility] Adult Address [address] [place] [address]- Care Team Providers Care Manager Integrated Name Role Phone Rio ROBISON, Ginger Primary Care Physician [place] [facility] [place] 02/06/24 [facility] Adult [address] [place] [phone]- Allergies, Adverse Reactions, Alerts Substance Reaction Severity [...] Recorded 1Result Comment: [facility] [id number] 2Result Comment: [facility] [id number] Medications albuterol 0.083% inhalation solution 3 mL = 2.5 mg, Inhalation, Every 6 hours, PRN for wheezing, DX COPD, # 60 each, 3 Refills, Maintenance, 10/21/20 16:57:00 EST, Solution, [facility], Partial fill upon patient request if theprescription is for a schedule II opioid drug., 181... Start Date: 10/21/20 Status: Ordered albuterol CFC free 90 mcg/inh inhalation aerosol 2, puffs, Inhalation, 4 times a day, PRN, # 1 each, Refills 11, Tot. Refills 11, Maintenance, 12/30/23 15:02:00 EST, Aerosol, Route to Pharmacy Electronically, [id number],183, cm, 12/30/23 12:59:00 EST, Height Start [...] 09/04/23 13:27:00 EDT, Route to Pharmacy Electronically, [facility], 183, cm, 06/27/23 10:36:00 EDT, Height Start Date: 09/04/23 Stop Date: 03/02/24 Status: Ordered atorvastatin 40 mg oral tablet 1 tablet = 40 mg, By Mouth, Daily, # 90 tablet, 2 Refills, Maintenance, 09/19/23 8:50:00 EST, [facility], 183, cm, 09/10/23 14:55:00 EDT, Height Start Date: 09/19/23 Status: Ordered Basaglar KwikPen 100 units/mL subcutaneous solution See Instructions, 45 units Subcutaneous Injection in morning and 35 units at bedtime Replacing Levemir not covered by insurance, # 15 mL, 5 Refills, Maintenance, 12/31/23 11:25:00 EST, Solution, [facility], Replacing Levemir not covered b... Start [...] Date: 06/27/23 Status: Ordered COMFORT EZ MIS [id number] COMFORT EZ MIS [id number], See Instructions, # 100 each, Refills 5, Tot. Refills 5, Maintenance, USE TO INJECT INSULIN BID DX E11.9, 02/22/21 11:54:00 EDT, Supply, 181, cm, 02/06/21 11:06:00 EDT, Height Start Date: 02/22/21 Status: Ordered COMFORT EZ MIS [id number] COMFORT EZ MIS [id number], See Instructions, # 100 each, 2 Refills, [...] Gm, 11 Refills, Maintenance, 07/23/22 11:21:00 EDT, [place], [facility], Partial fill upon patient request if [...] tablet, 1 Refills, Maintenance, 11/01/23 12:30:00 EST, [facility], 183, cm, 09/10/23 14:55:00 EDT, Height Start Date: 11/01/23 Status: Ordered Konsyl 100% oral powder for reconstitution = 7.5 Gm, By Mouth, 3 times a day, # 500 Gm, 0 Refills, Maintenance, 09/10/23 15:26:00 EDT, REC Powder, [facility], Partial fill upon patient request if the prescription is for a schedule II opioid drug., 183, cm, 09/10/23 14:55:00 EDT, Height Start Date: 09/10/23 Status: Ordered levothyroxine 150 mcg (0.15 mg) oral tablet 1 tablet, By Mouth, Daily, # 90 tablet, 2 Refills, Maintenance, 02/27/23 11:54:00 EDT, [facility], 181, cm, 01/02/23 13:54:00 EST, Height [...] 12/30/23 9:18:00 EST, Route to Pharmacy Electronically, [facility], 183, cm, 09/10/23 14:55:00 EDT, Height Start Date: 12/30/23 Status: Ordered metFORMIN 1000 mg oral tablet 1 tablet, By Mouth, 2 times a day, # 60 tablet, 5 Refills, Maintenance, 01/27/24 11:02:00 EDT, [facility], 183, cm, 12/30/23 12:59:00 EST, Height [...] 15 mL, 5 Refills, 12/27/22 14:29:00 EST, [facility], 181, cm, 09... Start Date: 12/27/22 Status: Ordered PEG-3350 with Electrolytes Lemon (Eqv-GoLYTELY) oral powder for reconstitution See Instructions, Per GI office instructions, # 4,000 mL, 0 Refills, Maintenance, 12/19/23 10:42:00EST, [facility], Partial fill upon patient request if the prescription is for a schedule II opioid drug., Per GI office instructions, 183, cm... Start Date: 12/19/23 Status: Ordered PEN NEEDLES [id number] PEN NEEDLES [id number], See Instructions, # 200 each, Refills 5, [...] Replace Required Details, Route to Pharmacy Electronically, [facility], 183, cm, 09/10/23 14:55:00... Start Date: [...] each, 11 Refills, Maintenance, 01/09/24 12:05:00 EST, [facility], 183, cm, 12/30/23 12:59:00 EST, Height [...] Team Personnel Name: Vandana Gibbs RN Position: [facility] RN Member Role: Primary Care Nurse Name: Ginger Pate MD Position: [facility] Physician - Primary Care Member Role: PCP Address: Address: [address] [place] [address] [address] [place] [address]- Care Team Related Persons Name: MARGARET RAMÍREZ Address: home [address] [place] [address]. [place] [address] Name: REINA RAMÍREZ Address: home [address] [place] [address] Name: LUZ DE LA CRUZ
--- OUTSIDE RECORDS SUMMARY | 2024-03-02 18:41 | XMS_ITS | Continuity of Care Document ---
Author Organization [facility] Adult Address [address] [place] [address]- Care Team Providers Care Sill Worker Name Role Phone Rio ROBISON, Ginger Primary Care Physician Encounter [id number] Date(s): 07/09/22 - 07/16/22 [facility] Adult [address] [place] [address]- Encounter Diagnosis Bipolar disease, chronic(Discharge Diagnosis) - 07/09/22 COPD (chronic obstructive pulmonary disease)(Discharge Diagnosis) - 07/09/22 Schizo-affective schizophrenia(Discharge Diagnosis) - 07/09/22 Attending Physician: Not on Staff, Attending MD [...] Recorded 1Result Comment: [facility] [id number] 2Result Comment: [facility] [id number] Medications albuterol 0.083% inhalation solution 3 mL = 2.5 mg, Inhalation, Every 6 hours, PRN for wheezing, DX COPD, # 60 each, 3 Refills, Maintenance, 10/21/20 16:57:00 EST, Solution, [facility], Partial fill upon patient request if theprescription is for a schedule II opioid drug., 181... Start Date: 10/21/20 Status: Ordered albuterol CFC free 90 mcg/inh inhalation aerosol 2, puffs, Inhalation, 4 times a day, PRN, # 18 Gm, Refills 11, Tot. Refills 11, Maintenance, 01/12/21 15:28:00 EST, Aerosol, Route to Pharmacy Electronically, NCPDP_[id number], [facility], 181, cm, 01/04/21 15:28:00 EST, Height Start Date: 01/12/21 Stop Date: 01/07/22 Status: Ordered albuterol CFC free 90 mcg/inh inhalation aerosol 2, puffs, Inhalation, 4 times a day, PRN, # 18 Gm, Refills 11, Tot. Refills 11, Maintenance, 01/15/22 11:28:00 EST, Aerosol, Route to Pharmacy Electronically, NCPDP_[id number], [facility], 181, cm, 01/15/22 11:07:00 EST, Height [...] 11 Refills, Maintenance, 01/07/22 15:29:00 EST, Powder, [facility], Partial fill upon patient request if [...] Instructions ReplaceRequired Details, Route to Pharmacy Electronically, [facility], 181, cm, 08/09/21 14:56:00 EDT, Height Start Date: 01/02/22 Status: Ordered atorvastatin 40 mg oral tablet 1 tablet, By Mouth, Daily, # 90 tablet, 1 Refills, [facility], 181, cm, 01/15/22 11:07:00EST, Height Start [...] Date: 08/11/21 Status: Ordered COMFORT EZ MIS [id number] COMFORT EZ MIS [id number], See Instructions, # 100 each, Refills 5, Tot. Refills 5, Maintenance, USE TO INJECT INSULIN BID DX E11.9, 02/22/21 11:54:00 EDT, Supply, 181, cm, 02/06/21 11:06:00 EDT, Height Start Date: 02/22/21 Status: Ordered COMFORT EZ MIS [id number] COMFORT EZ MIS [id number], See Instructions, # 100 each, 2 Refills, [...] 10/09/18 15:47:31 EST, Route to Pharmacy Electronically, [id number], [facility]; [facility] Start Date: [...] tablet, 0 Refills, Maintenance, 05/31/22 12:02:00 EDT, [facility], 181, cm, 01/15/22 11:07:00 EST, Height [...] 30 mL, 4 Refills, 07/09/22 15:53:00 EDT, [facility], 181, cm, 07/09/22 14:59:00 EDT, Height Start Date: 07/09/22 Status: Ordered levothyroxine 150 mcg (0.15 mg) oral tablet 1 tablet, By Mouth, Daily, # 30 tablet, 5 Refills, [facility], 181, cm, 08/09/21 14:56:00EDT, Height Start [...] tablet, Refills 5, Route to Pharmacy Electronically, [facility], 181, cm, 01/15/22 11:07:00 EST, Height Start Date: 02/01/22 Status: Ordered metFORMIN 1000 mg oral tablet 1 tablet, By Mouth, 2 times a day, # 60 tablet, 5 Refills, [facility], 181, cm, 01/15/22 11:07:00 [...] CALL PCP, # 15 mL, 5 Refills, [facility], 181, cm, 01/15/22 11:07:00 EST, He... Start Date: 03/29/22 Status: Ordered Pen [place], 30 G x 8 mm BD Ultra [...] 07/09/22 15:46:00 EDT, Route to Pharmacy Electronically, [facility], 181, cm, 07/09/22 14:59:00 EDT, Height [...] Effective Dates Health Status Clinical Service Informant Bipolar disease, chronic Discharge Diagnosis 07/09/22 COPD (chronic obstructive pulmonary disease) Discharge Diagnosis 07/09/22 Schizo-affective schizophrenia Discharge Diagnosis 07/09/22 Vital Signs Most recent to oldest [Reference Range]: 1 Height 181 cm (07/09/22 2:59 PM) Weight 85.4 kg (07/09/22 2:59 PM) Oxygen Saturation [94-100 %] 97 % (07/09/22 2:59 PM) Pulse Rate [55-90 bpm] 79 bpm (07/09/22 2:59 PM) Body Mass Index [18.5-24.99] 26.07 *H* (07/09/22 2:59 PM) Blood Pressure [90-138/55-84 mm Hg] 115/ 74mm Hg (07/09/22 2:59 PM) Mode of Delivery (Oxygen) Room air (07/09/22 2:59 PM) Blood pressure sites Arm, right (07/09/22 2:59 PM) Weight Obtained Via Standing scale (07/09/22 2:59 PM) Social History Social History Type Response Smoking Status Current every day sm oker; Tobacco user in household: Yes; Type: Cigarettes; Tobacco use times per day: 1/2 PPD; entered on: 08/09/16 Sex Care Team Personnel Name: Ginger Pate MD Address: [address] [place] [id number]
--- OUTSIDE RECORDS SUMMARY | 2024-03-02 18:41 | XMS_ITS | Continuity of Care Document ---
Author Organization [facility] Adult Address [address] [place] [address]- Care Team Providers Care Bag Bundler Name Role Phone Rio ROBISON, Ginger Primary Care Physician [place] [facility] [place] 11/20/23 - 12/20/23 [facility] Adult [address] [place] [phone]- Allergies, Adverse Reactions, Alerts Substance Reaction Severity [...] tetanus-diphtheria toxoids (Td) 02/03/13 Recorded 1Result Comment: [facility] [id number] 2Result Comment: [facility] [id number] Medications albuterol 0.083% inhalation solution 3 mL = 2.5 mg, Inhalation, Every 6 hours, PRN for wheezing, DX COPD, # 60 each, 3 Refills, Maintenance, 10/21/20 16:57:00 EST, Solution, [facility], Partial fill upon patient request if theprescription is for a schedule II opioid drug., 181... Start Date: 10/21/20 Status: Ordered albuterol CFC free 90 mcg/inh inhalation aerosol 2, puffs, Inhalation, 4 times a day, PRN, # 18 Gm, Refills 11, Tot. Refills 11, Maintenance, 01/02/23 14:27:00 EST, Aerosol, Route to Pharmacy Electronically, [id number], [facility], 181, cm, 01/02/23 13:54:00 EST, Height [...] 09/04/23 13:27:00 EDT, Route to Pharmacy Electronically, [facility], 183, cm, 06/27/23 10:36:00 EDT, Height Start Date: 09/04/23 Stop Date: 03/02/24 Status: Ordered atorvastatin 40 mg oral tablet 1 tablet = 40 mg, By Mouth, Daily, # 90 tablet, 2 Refills, Maintenance, 09/19/23 8:50:00 EST, [facility], 183, cm, 09/10/23 14:55:00 EDT, Height [...] Date: 06/27/23 Status: Ordered COMFORT EZ MIS [id number] COMFORT EZ MIS [id number], See Instructions, # 100 each, Refills 5, Tot. Refills 5, Maintenance, USE TO INJECT INSULIN BID DX E11.9, 02/22/21 11:54:00 EDT, Supply, 181, cm, 02/06/21 11:06:00 EDT, Height Start Date: 02/22/21 Status: Ordered COMFORT EZ MIS [id number] COMFORT EZ MIS [id number], See Instructions, # 100 each, 2 Refills, [...] Gm, 11 Refills, Maintenance, 07/23/22 11:21:00 EDT, [place], [facility], Partial fill upon patient request if the prescription is for a schedule II opioid drug., 1 sprays Nares, Both 2 times a day, 18... Start Date: 07/23/22 Status: Ordered fluticasone/umeclidinium/vilanterol 100 mcg-62.5 mcg-25 mcg/inh inhalation powder 1 puffs, Inhalation, Daily, # 1 each, 11 Refills, Maintenance, 01/02/23 14:26:00 EST, [facility], Partial fill upon patient request if [...] tablet, 1 Refills, Maintenance, 11/01/23 12:30:00 EST, [facility], 183, cm, 09/10/23 14:55:00 EDT, Height Start Date: 11/01/23 Status: Ordered Konsyl 100% oral powder for reconstitution = 7.5 Gm, By Mouth, 3 times a day, # 500 Gm, 0 Refills, Maintenance, 09/10/23 15:26:00 EDT, REC Powder, [facility], Partial fill upon patient request if the prescription is for a schedule II opioid drug., 183, cm, 09/10/23 14:55:00 EDT, Height Start Date: 09/10/23 Status: Ordered Levemir FlexTouch 100 units/mL subcutaneous solution See Instructions, INJECT 45 UNITS SUBCUTANEOUSLY EVERY MORNING AND INJECT 35 UNITS SUBCUTANEOUSLY EVERY NIGHT AT BEDTIME, # 30 mL, 3 Refills, Maintenance, 09/25/23 8:40:00 EST, [facility], 183, cm, 09/10/23 14:55:00 EDT, Height Start Date: 09/25/23 Status: Ordered levothyroxine 150 mcg (0.15 mg) oral tablet 1 tablet, By Mouth, Daily, # 90 tablet, 2 Refills, Maintenance, 02/27/23 11:54:00 EDT, [facility], 181, cm, 01/02/23 13:54:00 EST, Height [...] 12/02/23 10:06:00 EST, Route to Pharmacy Electronically, [facility], 183, cm, 09/10/23 14:55:00 EDT, Height Start Date: 12/02/23 Status: Ordered metFORMIN 1000 mg oral tablet 1 tablet, By Mouth, 2 times a day, # 60 tablet, 5 Refills, Maintenance, 05/30/23 11:36:00 EDT, [facility], 180.3, cm, 04/10/23 15:18:00 EDT, Height [...] 15 mL, 5 Refills, 12/27/22 14:29:00 EST, [facility], 181, cm, 09... Start Date: 12/27/22 Status: Ordered PEG-3350 with Electrolytes Lemon (Eqv-GoLYTELY) oral powder for reconstitution See Instructions, Per GI office instructions, # 4,000 mL, 0 Refills, Maintenance, 12/19/23 10:42:00EST, [facility], Partial fill upon patient request if the prescription is for a schedule II opioid drug., Per GI office instructions, 183, cm... Start Date: 12/19/23 Status: Ordered PEN NEEDLES [id number] PEN NEEDLES [id number], See Instructions, # 200 each, Refills 5, [...] Replace Required Details, Route to Pharmacy Electronically, [facility], 180.3, cm, 04/10/23 15:18:... Start Date: [...] Team Personnel Name: Vandana Gibbs RN Position: [facility] RN Member Role: Primary Care Nurse Name: Ginger Pate MD Position: [facility] Physician - Primary Care Member Role: PCP Address: Address: [address] [place] [address] [address] [place] [address]- Care Team Related Persons Name: MARGARET RAMÍREZ Address: home [address] [place] [address]. [place], [place] Name: REINA RAMÍREZ Address: home [address] [place] [address] Name: LUZ DE LA CRUZ
--- OUTSIDE RECORDS SUMMARY | 2024-03-02 18:41 | XMS_ITS | Continuity of Care Document ---
Author Organization [facility] Address [address] [place] [address]- Care Team Providers Care Camp Manager Name Role Phone Ginger Pate MD Primary Care Physician [place] [facility] [place]10[place]23 [facility] [address] [place], [place] [id number]- Attending Physician: Ericka Orona Admitting Physician: Ericka Orona Referring Physician: Ericka Orona Allergies, Adverse Reactions, Alerts Substance Reaction Severity [...] 02/03/13 Recorded 1Result Comment: [facility] [id number] 2Result Comment: [facility] [id number] Medications albuterol 0.083% inhalation solution 3 mL = 2.5 mg, Inhalation, Every 6 hours, PRN for wheezing, DX COPD, # 60 each, 3 Refills, Maintenance, 10/21/20 16:57:00 EST, Solution, [facility], Partial fill upon patient request if theprescription is for a schedule II opioid drug., 181... Start Date: 12/11/20 Status: Ordered albuterol CFC free 90 mcg/inh inhalation aerosol 2, puffs, Inhalation, 4 times a day, PRN, # 18 Gm, Refills 11, Tot. Refills 11, Maintenance, 01/02/23 14:27:00 EST, Aerosol, Route to Pharmacy Electronically, [id number], [facility], 181, cm, 01/02/23 13:54:00 EST, Height [...] 09/04/23 13:27:00 EDT, Route to Pharmacy Electronically, [facility], 183, cm, 06/27/23 10:36:00 EDT, Height Start Date: 09/04/23 Stop Date: 03/02/24 Status: Ordered atorvastatin 40 mg oral tablet 1 tablet = 40 mg, By Mouth, Daily, # 90 tablet, 2 Refills, Maintenance, 09/19/23 8:50:00 EST, [facility], 183, cm, 09/10/23 14:55:00 EDT, Height [...] Date: 06/27/23 Status: Ordered COMFORT EZ MIS [id number] COMFORT EZ MIS [id number], See Instructions, # 100 each, Refills 5, Tot. Refills 5, Maintenance, USE TO INJECT INSULIN BID DX E11.9, 02/22/21 11:54:00 EDT, Supply, 181, cm, 02/06/21 11:06:00 EDT, Height Start Date: 02/22/21 Status: Ordered COMFORT EZ MIS [id number] COMFORT EZ MIS [id number], See Instructions, # 100 each, 2 Refills, [...] Gm, 11 Refills, Maintenance, 07/23/22 11:21:00 EDT, [place], [facility], Partial fill upon patient request if the prescription is for a schedule II opioid drug., 1 sprays Nares, Both 2 times a day, 18... Start Date: 07/23/22 Status: Ordered fluticasone/umeclidinium/vilanterol 100 mcg-62.5 mcg-25 mcg/inh inhalation powder 1 puffs, Inhalation, Daily, # 1 each, 11 Refills, Maintenance, 01/02/23 14:26:00 EST, [facility], Partial fill upon patient request if [...] tablet, 1 Refills, Maintenance, 03/28/23 16:39:00 EDT, [facility], 181, cm, 01/02/23 13:54:00 EST, Height Start Date: 03/28/23 Status: Ordered Konsyl 100% oral powder for reconstitution = 7.5 Gm, By Mouth, 3 times a day, # 500 Gm, 0 Refills, Maintenance, 09/10/23 15:26:00 EDT, REC Powder, [facility], Partial fill upon patient request if the prescription is for a schedule II opioid drug., 183, cm, 09/10/23 14:55:00 EDT, Height Start Date: 09/10/23 Status: Ordered Levemir FlexTouch 100 units/mL subcutaneous solution See Instructions, INJECT 45 UNITS SUBCUTANEOUSLY EVERY MORNING AND INJECT 35 UNITS SUBCUTANEOUSLY EVERY NIGHT AT BEDTIME, # 30 mL, 3 Refills, Maintenance, 09/25/23 8:40:00 EST, [facility], 183, cm, 09/10/23 14:55:00 EDT, Height Start Date: 09/25/23 Status: Ordered levothyroxine 150 mcg (0.15 mg) oral tablet 1 tablet, By Mouth, Daily, # 90 tablet, 2 Refills, Maintenance, 02/27/23 11:54:00 EDT, [facility], 181, cm, 01/02/23 13:54:00 EST, Height [...] 03/15/23 9:56:00 EDT, Route to Pharmacy Electronically, [facility], 181, cm, 01/02/23 13:54:00 EST, Height Start Date: 03/15/23 Status: Ordered metFORMIN 1000 mg oral tablet 1 tablet, By Mouth, 2 times a day, # 60 tablet, 5 Refills, Maintenance, 05/30/23 11:36:00 EDT, [facility], 180.3, cm, 04/10/23 15:18:00 EDT, Height [...] 15 mL, 5 Refills, 12/27/22 14:29:00 EST, [facility], 181, cm, 09... Start Date: 12/27/22 Status: Ordered PEN NEEDLES [id number] PEN NEEDLES [id number], See Instructions, # 200 each, Refills 5, [...] Replace Required Details, Route to Pharmacy Electronically, [facility], 180.3, cm, 04/10/23 15:18:... Start Date: [...] Team Personnel Name: Vandana Gibbs RN Position: [facility] RN Member Role: Primary Care Nurse Name: Ginger Pate MD Position: [facility] Physician - Primary Care Member Role: PCP Address: Address: [address] [place] [address] [address] [place] [address]- Care Team Related Persons Name: MARGARET RAMÍREZ Address: home [address] [place] [address]. [place] [address] Name: REINA RAMÍREZ Address: home [address] [place] [id number] Name: LUZ DE LA CRUZ
--- OUTSIDE RECORDS SUMMARY | 2024-03-02 18:41 | XMS_ITS | Continuity of Care Document ---
Author Organization [facility] Adult Address [address] [place] [address]- Care Team Providers Care Construction Grip Name Role Phone Rio ROBISON, Ginger Primary Care Physician Encounter [facility] Date(s): 09/04/23 - 10/04/23 [facility] Adult [address] [place] [id number]- Allergies, Adverse Reactions, Alerts Substance Reaction Severity [...] toxoids (Td) 02/03/13 Recorded 1Result Comment: [facility] [id number] 2Result Comment: [facility] [id number] Medications albuterol 0.083% inhalation solution 3 mL = 2.5 mg, Inhalation, Every 6 hours, PRN for wheezing, DX COPD, # 60 each, 3 Refills, Maintenance, 10/21/20 16:57:00 EST, Solution, [facility], Partial fill upon patient request if theprescription is for a schedule II opioid drug., 181... Start Date: 10/21/20 Status: Ordered albuterol CFC free 90 mcg/inh inhalation aerosol 2, puffs, Inhalation, 4 times a day, PRN, # 18 Gm, Refills 11, Tot. Refills 11, Maintenance, 01/02/23 14:27:00 EST, Aerosol, Route to Pharmacy Electronically, [id number], [facility], 181, cm, 01/02/23 13:54:00 EST, Height [...] 09/04/23 13:27:00 EDT, Route to Pharmacy Electronically, [facility], 183, cm, 06/27/23 10:36:00 EDT, Height Start Date: 09/04/23 Stop Date: 03/02/24 Status: Ordered atorvastatin 40 mg oral tablet 1 tablet = 40 mg, By Mouth, Daily, # 90 tablet, 2 Refills, Maintenance, 09/19/23 8:50:00 EST, [facility], 183, cm, 09/10/23 14:55:00 EDT, Height [...] Date: 06/27/23 Status: Ordered COMFORT EZ MIS [id number] COMFORT EZ MIS [id number], See Instructions, # 100 each, Refills 5, Tot. Refills 5, Maintenance, USE TO INJECT INSULIN BID DX E11.9, 02/22/21 11:54:00 EDT, Supply, 181, cm, 02/06/21 11:06:00 EDT, Height Start Date: 02/22/21 Status: Ordered COMFORT EZ MIS [id number] COMFORT EZ MIS [id number], See Instructions, # 100 each, 2 Refills, [...] Gm, 11 Refills, Maintenance, 07/23/22 11:21:00 EDT, [place], [facility], Partial fill upon patient request if the prescription is for a schedule II opioid drug., 1 sprays Nares, Both 2 times a day, 18... Start Date: 07/23/22 Status: Ordered fluticasone/umeclidinium/vilanterol 100 mcg-62.5 mcg-25 mcg/inh inhalation powder 1 puffs, Inhalation, Daily, # 1 each, 11 Refills, Maintenance, 01/02/23 14:26:00 EST, [facility], Partial fill upon patient request if [...] tablet, 1 Refills, Maintenance, 03/28/23 16:39:00 EDT, [facility], 181, cm, 01/02/23 13:54:00 EST, Height Start Date: 03/28/23 Status: Ordered Konsyl 100% oral powder for reconstitution = 7.5 Gm, By Mouth, 3 times a day, # 500 Gm, 0 Refills, Maintenance, 09/10/23 15:26:00 EDT, REC Powder, [facility], Partial fill upon patient request if the prescription is for a schedule II opioid drug., 183, cm, 09/10/23 14:55:00 EDT, Height Start Date: 09/10/23 Status: Ordered Levemir FlexTouch 100 units/mL subcutaneous solution See Instructions, INJECT 45 UNITS SUBCUTANEOUSLY EVERY MORNING AND INJECT 35 UNITS SUBCUTANEOUSLY EVERY NIGHT AT BEDTIME, # 30 mL, 3 Refills, Maintenance, 09/25/23 8:40:00 EST, [facility], 183, cm, 09/10/23 14:55:00 EDT, Height Start Date: 09/25/23 Status: Ordered levothyroxine 150 mcg (0.15 mg) oral tablet 1 tablet, By Mouth, Daily, # 90 tablet, 2 Refills, Maintenance, 02/27/23 11:54:00 EDT, [facility], 181, cm, 01/02/23 13:54:00 EST, Height [...] 03/15/23 9:56:00 EDT, Route to Pharmacy Electronically, [facility], 181, cm, 01/02/23 13:54:00 EST, Height Start Date: 03/15/23 Status: Ordered metFORMIN 1000 mg oral tablet 1 tablet, By Mouth, 2 times a day, # 60 tablet, 5 Refills, Maintenance, 05/30/23 11:36:00 EDT, [facility], 180.3, cm, 04/10/23 15:18:00 EDT, Height [...] 15 mL, 5 Refills, 12/27/22 14:29:00 EST, [facility], 181, cm, 09... Start Date: 12/27/22 Status: Ordered PEN NEEDLES [id number] PEN NEEDLES [id number], See Instructions, # 200 each, Refills 5, [...] Replace Required Details, Route to Pharmacy Electronically, [facility], 180.3, cm, 04/10/23 15:18:... Start Date: [...] Team Personnel Name: Vandana Gibbs RN Position: [facility] RN Member Role: Primary Care Nurse Name: Ginger Pate MD Position: [facility] Physician - Primary Care Member Role: PCP Address: Address: [address] [place] [address]- Care Team Related Persons Name: MARGARET RAMÍREZ Address: home [address] [place] [address]. [place] [address] Name: REINA RAMÍREZ Address: home [address] [place] [id number] Name: LUZ DE LA CRUZ
--- OUTSIDE RECORDS SUMMARY | 2024-03-02 18:41 | XMS_ITS | Continuity of Care Document ---
Author Organization [facility] Adult Address [address] [place] [address]- Care Team Providers Care Hunter Skin Diver Name Role Phone Rio ROBISON, Ginger Primary Care Physician [place] [facility] [place] 01/07/23 - 02/06/23 [facility] [address] [place] [id number]- Allergies, Adverse Reactions, Alerts Substance Reaction Severity [...] Recorded 1Result Comment: [facility] [id number] 2Result Comment: [facility] [id number] Medications albuterol 0.083% inhalation solution 3 mL = 2.5 mg, Inhalation, Every 6 hours, PRN for wheezing, DX COPD, # 60 each, 3 Refills, Maintenance, 10/21/20 16:57:00 EST, Solution, [facility], Partial fill upon patient request if theprescription is for a schedule II opioid drug., 181... Start Date: 10/21/20 Status: Ordered albuterol CFC free 90 mcg/inh inhalation aerosol 2, puffs, Inhalation, 4 times a day, PRN, # 18 Gm, Refills 11, Tot. Refills 11, Maintenance, 01/02/23 14:27:00 EST, Aerosol, Route to Pharmacy Electronically, [id number], [facility], 181, cm, 01/02/23 13:54:00 EST, Height [...] Replace Required Details, Route to Pharmacy Electronically, [facility], 181, cm, 01/02/23 13:... Start Date: 01/04/23 Status: Ordered atorvastatin 40 mg oral tablet See Instructions, TAKE 1 TABLET BY MOUTH DAILY, # 30 tablet, 0 Refills, Maintenance, 01/03/23 13:35:00 EST, [facility], 181, cm, 01/02/23 13:54:00 EST, Height Start Date: 01/03/23 Status: Ordered Azithromycin 5 Day Dose Pack 250 mg oral tablet 1 pack/packet, By Mouth, Once, # 6 tablet, 0 Refills, Soft Stop, 01/02/23 14:26:00 EST, Tablet, [facility], Partial fill upon patient request if [...] Date: 08/11/21 Status: Ordered COMFORT EZ MIS [id number] COMFORT EZ MIS [id number], See Instructions, # 100 each, Refills 5, Tot. Refills 5, Maintenance, USE TO INJECT INSULIN BID DX E11.9, 02/22/21 11:54:00 EDT, Supply, 181, cm, 02/06/21 11:06:00 EDT, Height Start Date: 02/22/21 Status: Ordered COMFORT EZ MIS [id number] COMFORT EZ MIS [id number], See Instructions, # 100 each, 2 Refills, [...] 10/09/18 15:47:31 EST, Route to Pharmacy Electronically, [id number], [facility]; [facility] Start Date: [...] Gm, 11 Refills, Maintenance, 07/23/22 11:21:00 EDT, [place], [facility], Partial fill upon patient request if the prescription is for a schedule II opioid drug., 1 sprays Nares, Both 2 times a day, 18... Start Date: 07/23/22 Status: Ordered fluticasone/umeclidinium/vilanterol 100 mcg-62.5 mcg-25 mcg/inh inhalation powder 1 puffs, Inhalation, Daily, # 1 each, 11 Refills, Maintenance, 01/02/23 14:26:00 EST, [facility], Partial fill upon patient request if [...] tablet, 1 Refills, Maintenance, 09/25/22 12:21:00 EST, [facility], 181, cm, 07/23/22 10:45:00 EDT, Height [...] 30 mL, 4 Refills, 07/09/22 15:53:00 EDT, [facility], 181, cm, 07/09/22 14:59:00 EDT, Height Start Date: 07/09/22 Status: Ordered levothyroxine 150 mcg (0.15 mg) oral tablet 1 tablet, By Mouth, Daily, # 90 tablet, 1 Refills, Maintenance, 08/01/22 20:32:00 EDT, [facility], 181, cm, 07/23/22 10:45:00 EDT, Height [...] 09/25/22 14:58:00 EST, Route to Pharmacy Electronically, [facility], 181, cm, 07/23/22 10:45:00 EDT, Height Start Date: 09/25/22 Status: Ordered metFORMIN 1000 mg oral tablet 1 tablet, By Mouth, 2 times a day, # 60 tablet, 4 Refills, Maintenance, 12/14/22 8:54:00 EST, [facility], 181, cm, 07/23/22 10:45:00 EDT, Height [...] 15 mL, 5 Refills, 12/27/22 14:29:00 EST, [facility], 181, cm, 09... Start Date: 12/27/22 Status: Ordered Pen [place], 30 G x 8 mm BD Ultra [...] tablet, 0 Refills, Maintenance, 01/02/23 14:26:00 EST, [facility], Partial fill upon patient request if [...] 07/09/22 15:46:00 EDT, Route to Pharmacy Electronically, [facility], 181, cm, 07/09/22 14:59:00 EDT, Height [...] Team Personnel Name: Vandana Gibbs RN Position: [facility] RN Member Role: Primary Care Nurse Name: Ginger Pate MD Position: [facility] Primary Care Physician Member Role: PCP Address: Address: [address] [place] [address]- Care Team Related Persons Name: MARGARET RAMÍREZ Address: home [address] [place] [address]. [place] [address] Name: REINA RAMÍREZ Address: home [address] [place] [address] Name: LUZ DE LA CRUZ
--- OUTSIDE RECORDS SUMMARY | 2024-03-02 18:41 | XMS_ITS | Continuity of Care Document ---
Author Organization [facility] Adult Address [address] [place] [address]- Care Team Providers Care Local Hazmat Driver Name Role Phone Rio ROBISON, Ginger Primary Care Physician [place] [facility] [place](s): 08/24/23 - 12/22/23 [facility] Adult [address] [place] [id number]- Attending Physician: Ginger Pate MD Allergies, Adverse [...] 1Result Comment: [facility] [id number] 2Result Comment: [facility] [phone] Medications albuterol 0.083% inhalation solution 3 mL = 2.5 mg, Inhalation, Every 6 hours, PRN for wheezing, DX COPD, # 60 each, 3 Refills, Maintenance, 10/21/20 16:57:00 EST, Solution, [facility], Partial fill upon patient request if theprescription is for a schedule II opioid drug., 181... Start Date: 10/21/20 Status: Ordered albuterol CFC free 90 mcg/inh inhalation aerosol 2, puffs, Inhalation, 4 times a day, PRN, # 18 Gm, Refills 11, Tot. Refills 11, Maintenance, 01/02/23 14:27:00 EST, Aerosol, Route to Pharmacy Electronically, [id number], [facility], 181, cm, 01/02/23 13:54:00 EST, [...] 09/04/23 13:27:00 EDT, Route to Pharmacy Electronically, [facility], 183, cm, 06/27/23 10:36:00 EDT, Height Start Date: 09/04/23 Stop Date: 03/02/24 Status: Ordered atorvastatin 40 mg oral tablet 1 tablet = 40 mg, By Mouth, Daily, # 90 tablet, 2 Refills, Maintenance, 09/19/23 8:50:00 EST, [facility], 183, cm, 09/10/23 14:55:00 EDT, [...] Date: 06/27/23 Status: Ordered COMFORT EZ MIS [id number] COMFORT EZ MIS [id number], See Instructions, # 100 each, Refills 5, Tot. Refills 5, Maintenance, USE TO INJECT INSULIN BID DX E11.9, 02/22/21 11:54:00 EDT, Supply, 181, cm, 02/06/21 11:06:00 EDT, Height Start Date: 02/22/21 Status: Ordered COMFORT EZ MIS [id number] COMFORT EZ MIS [id number], See Instructions, # 100 each, 2 Refills, [...] Gm, 11 Refills, Maintenance, 07/23/22 11:21:00 EDT, [place], [facility], Partial fill upon patient request if the prescription is for a schedule II opioid drug., 1 sprays Nares, Both 2 times a day, 18... Start Date: 07/23/22 Status: Ordered fluticasone/umeclidinium/vilanterol 100 mcg-62.5 mcg-25 mcg/inh inhalation powder 1 puffs, Inhalation, Daily, # 1 each, 11 Refills, Maintenance, 01/02/23 14:26:00 EST, [facility], Partial fill upon patient request [...] tablet, 1 Refills, Maintenance, 11/01/23 12:30:00 EST, [facility], 183, cm, 09/10/23 14:55:00 EDT, Height Start Date: 11/01/23 Status: Ordered Konsyl 100% oral powder for reconstitution = 7.5 Gm, By Mouth, 3 times a day, # 500 Gm, 0 Refills, Maintenance, 09/10/23 15:26:00 EDT, REC Powder, [facility], Partial fill upon patient request if the prescription is for a schedule II opioid drug., 183, cm, 09/10/23 14:55:00 EDT, Height Start Date: 09/10/23 Status: Ordered Levemir FlexTouch 100 units/mL subcutaneous solution See Instructions, INJECT 45 UNITS SUBCUTANEOUSLY EVERY MORNING AND INJECT 35 UNITS SUBCUTANEOUSLY EVERY NIGHT AT BEDTIME, # 30 mL, 3 Refills, Maintenance, 09/25/23 8:40:00 EST, [facility], 183, cm, 09/10/23 14:55:00 EDT, Height Start Date: 09/25/23 Status: Ordered levothyroxine 150 mcg (0.15 mg) oral tablet 1 tablet, By Mouth, Daily, # 90 tablet, 2 Refills, Maintenance, 02/27/23 11:54:00 EDT, [facility], 181, cm, 01/02/23 13:54:00 EST, [...] 12/02/23 10:06:00 EST, Route to Pharmacy Electronically, [facility], 183, cm, 09/10/23 14:55:00 EDT, Height Start Date: 12/02/23 Status: Ordered metFORMIN 1000 mg oral tablet 1 tablet, By Mouth, 2 times a day, # 60 tablet, 5 Refills, Maintenance, 05/30/23 11:36:00 EDT, [facility], 180.3, cm, 04/10/23 15:18:00 EDT, [...] mL, 5 Refills, 12/27/22 14:29:00 EST, [facility], 181, cm, 09... Start Date: 12/27/22 Status: Ordered PEG-3350 with Electrolytes Lemon (Eqv-GoLYTELY) oral powder for reconstitution See Instructions, Per GI office instructions, # 4,000 mL, 0 Refills, Maintenance, 12/19/23 10:42:00EST, [facility], Partial fill upon patient request if the prescription is for a schedule II opioid drug., Per GI office instructions, 183, cm... Start Date: 12/19/23 Status: Ordered PEN NEEDLES [id number] PEN NEEDLES [id number], See Instructions, # 200 each, Refills 5, [...] Required Details, Route to Pharmacy Electronically, [facility], 180.3, cm, 04/10/23 15:18:... Start Date: [...] Team Personnel Name: Vandana Gibbs RN Position: [facility] RN Member Role: Primary Care Nurse Name: Ginger Pate MD Position: [facility] Physician - Primary Care Member Role: PCP Address: Address: [address] [place] [address] [address] [place] [address]- Care Team Related Persons Name: MARGARET RAMÍREZ Address: home [address] [place] [address]. [place], [place] Name: REINA RAMÍREZ Address: home [address] [place] [address] Name: LUZ DE LA CRUZ
--- OUTSIDE RECORDS SUMMARY | 2024-03-02 18:41 | XMS_ITS | Continuity of Care Document ---
Author Organization [facility] Adult Address [address] [place] [address]- Care Team Providers Care Store Product Demonstrator Name Role Phone Rio ROBISON, Ginger Primary Care Physician En[place] [facility] [place] Date(s): 03/11/20 - 04/10/20 [facility] Adult [address] [place] [address]- [facility] Attending Physician: Admtr, [id number] Admitting Physician: Admtr, [id number] Referring Physician: Admtr, [...] tetanus/diphtheria/pertussis, acel(Tdap) 03/01/15 Given 1Result Comment: [facility] [id number] 2Result Comment: [facility] [phone] Medications Advair Diskus 250 mcg-50 mcg inhalation powder 1, puffs, Inhalation, Every 12 hours, # 28 each, Refills 2, Tot. Refills 2, Maintenance, 04/10/18 16:19:35 EDT, Route to Pharmacy Electronically, [id number], [facility], please hold [...] 10/28/19 13:33:00 EST, Route to Pharmacy Electronically, [facility], Rx resent from 05/11/19.,181, cm, 09/24/19 11:48:00 EST, Height, 100.6, kg,... Start Date: 10/28/19 Status: Ordered atorvastatin 40 mg oral tablet 1 tablet = 40 mg, By Mouth, Daily, # 90 tablet, 1 Refills, Maintenance, 01/28/20 12:12:00 EDT, Tablet, [facility], 181, cm, 12/09/19 15:01:00 EST, Height, [...] 10/09/18 15:47:31 EST, Route to Pharmacy Electronically, [id number], [facility] Start Date: 10/09/18 Status: Ordered Flomax 0.4 mg oral capsule 0.4 mg, 1, capsule, By Mouth, Daily, # 30 capsule, Refills 5, Tot. Refills 5, Maintenance, 208:24:00 EST, Route to Pharmacy Electronically, [facility], 181, cm, 09/24/19 11:48:00 EST, Height, [...] tablet, 1 Refills, Maintenance, 02/24/20 10:41:00 EDT, [facility], 181, cm, 12/09/19 15:01:00 EST, Height, 100.6, kg, 04/07/18 20:14:00 EDT, Dry Weight Start Date: 02/24/20 Status: Ordered glipiZIDE 10 mg oral tablet, extended release See Instructions, # 60 tablet, Refills 5 Tot. Refills 5, TAKE 1 TABLET BY MOUTH TWICE DAILY, [facility] Start Date: 09/02/19 Status: Ordered ibuprofen 600 mg oral tablet 600 mg, 1, tablet, By Mouth, Every 6 hours, PRN, # 120 tablet, Refills 0, Tot. Refills 0, Maintenance, Pain, 01/08/20 15:02:00 EST, Route to Pharmacy Electronically, [facility], 181, cm, 12/09/19 15:01:00 EST, Height, [...] 5 Refills, Soft Stop, 12/09/19 15:39:00 EST, [facility], 181, cm, 12/09/19 15:01:00 EST, Height, 100.6, kg, 05... Start Date: 12/09/19 Status: Ordered levothyroxine 150 mcg (0.15 mg) oral tablet 1 tablet = 150 mcg, By Mouth, Daily, # 30 tablet, 5 Refills, Maintenance, 04/04/20 20:54:00 EDT, Tablet, [facility], 181, cm, 12/09/19 15:01:00 EST, Height, [...] 11/26/19 20:12:00 EST, Route to Pharmacy Electronically, [facility], 181, cm, 09/24/19 11:48:00 EST, Height, 100.6, kg, 04/07/18 20:14:00 EDT, Dry Weight Start Date: 11/26/19 Status: Ordered metFORMIN 1000 mg oral tablet 1 tablet = 1,000 mg, By Mouth, 2 times a day, # 60 tablet, 5 Refills, Maintenance, 10/28/19 13:33:00 EST, [facility], 181, cm, 09/24/19 11:48:00 EST, Height, 100.6, kg, 04/07/18 20:14:00 EDT, Dry Weight Start Date: 10/28/19 Status: Ordered Pen [place], 30 G x 8 mm BD Ultra [...] 07/17/1813:34:55 EDT, Aerosol, Route to Pharmacy Electronically, [id number], [facility] Start Date: 07/17/18 Stop [...] 0 Refills, Maintenance, 12/09/19 15:44:00 EST, Tablet, [facility], 181,cm, 12/09/19 15:01:00 EST, Height, 100.6, [...] Response Smoking Status 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
--- OUTSIDE RECORDS SUMMARY | 2024-03-02 18:41 | XMS_ITS | Continuity of Care Document ---
Author Organization [facility] Adult Address [address] [place] [address]- Care Team Providers Care Motor Teacher Name Role Phone Rio ROBISON, Ginger Primary Care Physician [place] [facility] [place] 09/26/20 - 10/26/20 [facility] Adult [address] [place] [address]- Allergies, Adverse Reactions, Alerts Substance Reaction Severity Status amoxicillin Active sulfa drugs Active Immunizations Given and Recorded Vaccine Date Status Refusal Reason influenza virus vaccine, inactivated 1 09/24/19 Gi mitch influenza virus vaccine, inactivated 2 08/06/17 Gi mitch influenza virus vaccine, inactivated 11/02/15 Give n pneumococcal 23-valent vaccine 03/01/15 Given tetanus/diphtheria/pertussis, acel(Tdap) 03/01/15 Given 1Result Comment: [facility] [id number] 2Result Comment: [facility] [phone] Medications Advair Diskus 250 mcg-50 mcg inhalation powder 1, puffs, Inhalation, Every 12 hours, rinse mouth and throat after use, # 28 each, Refills 6, Tot. Refills 6, Maintenance, 10/21/20 13:08:00 EST, Route to Pharmacy Electronically, NCPDP_[id number], [facility], please hold for when symbicort... Start Date: 10/21/20 Stop Date: 05/19/21 Status: Ordered albuterol 0.083% inhalation solution 3 mL = 2.5 mg, Inhalation, Every 6 hours, PRN for wheezing, DX COPD, # 60 each, 3 Refills, Maintenance, 10/21/20 16:57:00 EST, Solution, [facility], Partial fill upon patient request if [...] 04/22/20 9:58:00 EDT, Route to Pharmacy Electronically, [facility], Rx resent from 05/11/19., 181, cm, 12/09/19 15:01:00 EST, Height, Dry Weight Start Date: 04/22/20 Status: Ordered atorvastatin 40 mg oral tablet 1 tablet = 40 mg, By Mouth, Daily, # 90 tablet, 1 Refills, Maintenance, 07/26/20 12:07:00 EDT, Tablet, [facility], 181, cm, 12/09/19 15:01:00 EST, Height, [...] 10/09/18 15:47:31 EST, Route to Pharmacy Electronically, [id number], [facility] Start Date: [...] tablet, 0 Refills, Maintenance, 10/24/20 10:05:00 EST, [facility], 181, cm, 10/21/20 11:47:00 EST, Height Start Date: 10/24/20 Status: Ordered ibuprofen 600 mg oral tablet 600 mg, 1, tablet, By Mouth, Every 6 hours, PRN, # 120 tablet, Refills 0, Tot. Refills 0, Maintenance, Pain, 01/08/20 15:02:00 EST, Route to Pharmacy Electronically, [facility], 181, cm, 12/09/19 15:01:00 EST, Height, 100.6, kg, 04/07/18 20:... Start Date: 01/08/20 Status: Ordered Incruse Ellipta 62.5 mcg/inh inhalation powder 1 each, Inhalation, Every 24 hours, doses should be taken at least 24 hours apart, # 1 each, 11 Refills, Maintenance, 10/25/20 15:07:00 EST, Powder, [facility], Partial fill upon patient request if [...] 5 Refills, Soft Stop, 10/25/20 9:50:00 EST, [facility], 181, cm, 10/21/20 11:47:00 EST, Height Start Date: 10/25/20 Status: Ordered levothyroxine 150 mcg (0.15 mg) oral tablet 1 tablet = 150 mcg, By Mouth, Daily, # 30 tablet, 5 Refills, Maintenance, 04/04/20 20:54:00 EDT, Tablet, [facility], 181, cm, 12/09/19 15:01:00 EST, Height, [...] 05/24/20 13:38:00 EDT, Route to Pharmacy Electronically, [facility], 181, cm, 12/09/19 15:01:00 EST, Height, Dry Weight Start Date: 05/24/20 Status: Ordered metFORMIN 1000 mg oral tablet 1 tablet = 1,000 mg, By Mouth, 2 times a day, # 60 tablet, 5 Refills, Maintenance, 04/29/20 12:49:00 EDT, [facility], 181, cm, 12/09/19 15:01:00 EST, Height, Dry Weight Start Date: 04/29/20 Status: Ordered Nebulizer/Compressor See Instructions, PRN, # 1 each, Maintenance, Wheezing/Shortness of Breath, Use with albuterol solution q6h Dx: COPD (J44.9), 10/21/20 14:33:00 EST, Supply Start Date: 10/21/20 Status: Ordered Pen [place], 30 G x 8 mm BD Ultra [...] 12:55:00 EST, Aerosol, Route to Pharmacy Electronically, NCPDP_[id number], [facility], 181, cm, 08/03/20 9:1... Start Date: 09/26/20 Stop Date: 03/25/21 Status: Ordered ProAir HFA 90 mcg/inh inhalation aerosol with adapter 2, puffs, Inhalation, Every 6 hours, PRN, use with spacer chamber, # 1 each, Refills 5, Tot. Refills 5, Maintenance, 03/25/21 12:55:00 EDT, Aerosol, Route to Pharmacy Electronically, NCPDP_[id number], [facility], 181, cm, 10/21/20 11:47:00 E... Start Date: 03/25/21 Stop Date: 09/21/21 Status: Ordered Prolixin DECANOATE Inj = 25 mg, Intramuscular, Every 21 days, 0 Refills, Maintenance, 01/19/19 14:36:12 EDT Start Date: 01/19/19 Status: Ordered tamsulosin 0.4 mg oral capsule 1, capsule, By Mouth, Daily, # 30 capsule, Refills 11, Tot. Refills 0, Maintenance, 05/09/20 8:55:00 EDT, Route to Pharmacy Electronically, [facility], 181, cm, 12/09/19 15:01:00 EST, Height Start Date: 05/09/20 Status: Ordered Viagra 50 mg oral tablet 1 tablet = 50 mg, By Mouth, Daily, PRN as needed for erectile dysfunction, 1 hour before sexual activity, # 5 tablet, 0 Refills, Maintenance, 12/09/19 15:44:00 EST, Tablet, [facility], 181,cm, 12/09/19 15:01:00 EST, Height, 100.6, [...]
--- OUTSIDE RECORDS SUMMARY | 2024-03-02 18:41 | XMS_ITS | Continuity of Care Document ---
Author Organization [facility] Adult Address [address] [place] [address]- Care Team Providers Care Rip [employer] Groove Machine Operator Name Role Phone Rio ROBISON, Ginger Primary Care Physician Encounter [facility] [place] Date(s): 10/24/20 - 11/23/20 [facility] Adult [address] [place] [address]- Allergies, Adverse Reactions, Alerts Substance Reaction Severity Status amoxicillin Active sulfa drugs Active Immunizations Given and Recorded Vaccine Date Status Refusal Reason influenza virus vaccine, inactivated 1 09/24/19 Gi mitch influenza virus vaccine, inactivated 2 08/06/17 Gi mitch influenza virus vaccine, inactivated 11/02/15 Give n pneumococcal 23-valent vaccine 03/01/15 Given tetanus/diphtheria/pertussis, acel(Tdap) 03/01/15 Given 1Result Comment: [facility] [id number] 2Result Comment: [facility] [phone] Medications Advair Diskus 250 mcg-50 mcg inhalation powder 1, puffs, Inhalation, Every 12 hours, rinse mouth and throat after use, # 28 each, Refills 6, Tot. Refills 6, Maintenance, 10/21/20 13:08:00 EST, Route to Pharmacy Electronically, NCPDP_[id number], [facility], please hold for when symbicort... Start Date: 10/21/20 Stop Date: 05/19/21 Status: Ordered albuterol 0.083% inhalation solution 3 mL = 2.5 mg, Inhalation, Every 6 hours, PRN for wheezing, DX COPD, # 60 each, 3 Refills, Maintenance, 10/21/20 16:57:00 EST, Solution, [facility], Partial fill upon patient request if [...] 10/31/20 9:30:00 EST, Route to Pharmacy Electronically, [facility], Rx resent from 05/11/19., 181, cm, 10/21/20 11:47:00 EST, Height Start Date: 10/31/20 Status: Ordered atorvastatin 40 mg oral tablet 1 tablet = 40 mg, By Mouth, Daily, # 90 tablet, 1 Refills, Maintenance, 07/26/20 12:07:00 EDT, Tablet, [facility], 181, cm, 12/09/19 15:01:00 EST, Height, [...] 10/09/18 15:47:31 EST, Route to Pharmacy Electronically, [id number], [facility] Start Date: [...] tablet, 0 Refills, Maintenance, 10/24/20 10:05:00 EST, [facility], 181, cm, 10/21/20 11:47:00 EST, Height Start Date: 10/24/20 Status: Ordered ibuprofen 600 mg oral tablet 600 mg, 1, tablet, By Mouth, Every 6 hours, PRN, # 120 tablet, Refills 0, Tot. Refills 0, Maintenance, Pain, 01/08/20 15:02:00 EST, Route to Pharmacy Electronically, [facility], 181, cm, 12/09/19 15:01:00 EST, Height, 100.6, kg, 04/07/18 20:... Start Date: 01/08/20 Status: Ordered Incruse Ellipta 62.5 mcg/inh inhalation powder 1 each, Inhalation, Every 24 hours, doses should be taken at least 24 hours apart, # 1 each, 11 Refills, Maintenance, 10/25/20 15:07:00 EST, Powder, [facility], Partial fill upon patient request if [...] 5 Refills, Soft Stop, 10/25/20 9:50:00 EST, [facility], 181, cm, 10/21/20 11:47:00 EST, Height Start Date: 10/25/20 Status: Ordered levothyroxine 150 mcg (0.15 mg) oral tablet 1 tablet = 150 mcg, By Mouth, Daily, # 30 tablet, 5 Refills, Maintenance, 11/08/20 11:44:00 EST, Tablet, [facility], 181, cm, 10/21/20 11:47:00 EST, Height [...] 05/24/20 13:38:00 EDT, Route to Pharmacy Electronically, [facility], 181, cm, 12/09/19 15:01:00 EST, Height, Dry Weight Start Date: 05/24/20 Status: Ordered metFORMIN 1000 mg oral tablet 1 tablet = 1,000 mg, By Mouth, 2 times a day, # 60 tablet, 5 Refills, Maintenance, 11/01/20 9:36:00EST, [facility], 181, cm, 10/21/20 11:47:00 EST, Height [...] 12/13/20 13:20:00 EST, 11/01/20 13:20:00 EST, Patch, [facility], Partial fill upon patient request if the prescriptionis for a schedule II opioid drug., 1 patch Topicall... Start Date: 11/01/20 Stop Date: 12/13/20 Status: Ordered Pen [place], 30 G x 8 mm BD Ultra [...] 12:55:00 EST, Aerosol, Route to Pharmacy Electronically, NCPDP_[id number], [facility], 181, , 08/03/20 9:1... Start Date: 09/26/20 Stop Date: 03/25/21 Status: Ordered ProAir HFA 90 mcg/inh inhalation aerosol with adapter 2, puffs, Inhalation, Every 6 hours, PRN, use with spacer chamber, # 1 each, Refills 5, Tot. Refills 5, Maintenance, 03/25/21 12:55:00 EDT, Aerosol, Route to Pharmacy Electronically, NCPDP_[id number], [facility], 181, cm, 10/21/20 11:47:00 E... Start Date: 03/25/21 Stop Date: 09/21/21 Status: Ordered Prolixin DECANOATE Inj = 25 mg, Intramuscular, Every 21 days, 0 Refills, Maintenance, 01/19/19 14:36:12 EDT Start Date: 01/19/19 Status: Ordered tamsulosin 0.4 mg oral capsule 1, capsule, By Mouth, Daily, # 30 capsule, Refills 11, Tot. Refills 0, Maintenance, 05/09/20 8:55:00 EDT, Route to Pharmacy Electronically, [facility], 181, , 12/09/19 15:01:00 EST, Height Start Date: 05/09/20 Status: Ordered Viagra 50 mg oral tablet 1 tablet = 50 mg, By Mouth, Daily, PRN as needed for erectile dysfunction, 1 hour before sexual activity, # 5 tablet, 0 Refills, Maintenance, 12/09/19 15:44:00 EST, Tablet, [facility], 181,cm, 12/09/19 15:01:00 EST, Height, 100.6, [...]
--- OUTSIDE RECORDS SUMMARY | 2024-03-02 18:42 | XMS_ITS | Continuity of Care Document ---
Author Organization [facility] ter Address [address] [place] [id number]- Care Team Providers Care Agricultural Pilot Name Role Phone Rio ROBISON, Ginger Primary Care Physician Encounter [facility] Date(s): 06/24/23 - 06/24/[address] [address]- Discharge Disposition: A-D/C Walkout Attending Physician: Not on Staff, Attending MD Admitting Physician: Not on Staff, Admitting MD Referring Physician: Not on Staff, Referring MD Allergies, Adverse Reactions, Alerts Substance Reaction [...] 02/03/13 Recorded 1Result Comment: [facility] [id number] 2Result Comment: [facility] [id number] Medications albuterol 0.083% inhalation solution 3 mL = 2.5 mg, Inhalation, Every 6 hours, PRN for wheezing, DX COPD, # 60 each, 3 Refills, Maintenance, 10/21/20 16:57:00 EST, Solution, [facility], Partial fill upon patient request if theprescription is for a schedule II opioid drug., 181... Start Date: 10/21/20 Status: Ordered albuterol CFC free 90 mcg/inh inhalation aerosol 2, puffs, Inhalation, 4 times a day, PRN, # 18 Gm, Refills 11, Tot. Refills 11, Maintenance, 01/02/23 14:27:00 EST, Aerosol, Route to Pharmacy Electronically, NCPDP_[id number], [facility], 181, cm, 01/02/23 13:54:00 EST, Height [...] Replace Required Details, Route to Pharmacy Electronically, [facility], 181, cm, 01/02/23 13:... Start Date: 01/04/23 Status: Ordered atorvastatin 40 mg oral tablet See Instructions, TAKE 1 TABLET BY MOUTH DAILY, # 30 tablet, 0 Refills, Maintenance, 03/28/23 15:47:00 EDT, [facility], 181, cm, 01/02/23 13:54:00 EST, Height [...] Date: 08/11/21 Status: Ordered COMFORT EZ MIS [id number] COMFORT EZ MIS [id number], See Instructions, # 100 each, Refills 5, Tot. Refills 5, Maintenance, USE TO INJECT INSULIN BID DX E11.9, 02/22/21 11:54:00 EDT, Supply, 181, cm, 02/06/21 11:06:00 EDT, Height Start Date: 02/22/21 Status: Ordered COMFORT EZ MIS [id number] COMFORT EZ MIS [id number], See Instructions, # 100 each, 2 Refills, [...] Gm, 11 Refills, Maintenance, 07/23/22 11:21:00 EDT, [place], [facility], Partial fill upon patient request if the prescription is for a schedule II opioid drug., 1 sprays Nares, Both 2 times a day, 18... Start Date: 07/23/22 Status: Ordered fluticasone/umeclidinium/vilanterol 100 mcg-62.5 mcg-25 mcg/inh inhalation powder 1 puffs, Inhalation, Daily, # 1 each, 11 Refills, Maintenance, 01/02/23 14:26:00 EST, [facility], Partial fill upon patient request if [...] tablet, 1 Refills, Maintenance, 03/28/23 16:39:00 EDT, [facility], 181, cm, 01/02/23 13:54:00 EST, Height [...] 30 mL, 4 Refills, 07/09/22 15:53:00 EDT, [facility], 181, cm, 07/09/22 14:59:00 EDT, Height Start Date: 07/09/22 Status: Ordered levothyroxine 150 mcg (0.15 mg) oral tablet 1 tablet, By Mouth, Daily, # 90 tablet, 2 Refills, Maintenance, 02/27/23 11:54:00 EDT, [facility], 181, cm, 01/02/23 13:54:00 EST, Height [...] 03/15/23 9:56:00 EDT, Route to Pharmacy Electronically, [facility], 181, cm, 01/02/23 13:54:00 EST, Height Start Date: 03/15/23 Status: Ordered metFORMIN 1000 mg oral tablet 1 tablet, By Mouth, 2 times a day, # 60 tablet, 5 Refills, Maintenance, 05/30/23 11:36:00 EDT, [facility], 180.3, cm, 04/10/23 15:18:00 EDT, Height [...] 15 mL, 5 Refills, 12/27/22 14:29:00 EST, [facility], 181, cm, 09... Start Date: 12/27/22 Status: Ordered Pen [place], 30 G x 8 mm BD Ultra [...] Replace Required Details, Route to Pharmacy Electronically, [facility], 180.3, cm, 04/10/23 15:18:... Start Date: 05/31/23 Status: Ordered tamsulosin 0.4 mg oral capsule Refills 0, Maintenance, 06/19/23 14:03:00 EDT, Partial fill upon patient request if the prescription is for a schedule II opioid drug. Start Date: 06/19/23 Status: Ordered Problem List Condition Confirmation Course [...] schizophrenia Confirmed Active Tobacco abuse Confirmed Active Vital Signs Most recent to oldest [Reference Range]: 1 2 Height 183 cm (06/24/23 11:01 AM) Weight 78.9 kg (06/24/23 11:01 AM) Oxygen Saturation [94-100 %] 93 % *L* (06/24/23 11:01 AM) 97 % (06/24/23 10:53 AM) Pulse Rate [55-90 bpm] 65 bpm (06/24/23 11:01 AM) 74 bpm (06/24/23 10:53 AM) Body Mass Index [18.5-24.99 kg/m2] 23.56 kg/m2 (06/24/23 11:01 AM) Blood Pressure [90-138/55-84 mm Hg] 108/ 57mm Hg (06/24/23 11:01 AM) Respiratory Rate [16-30 br/min] 18 br/mi n (06/24/23 11:01 AM) 20 br/min (06/24/23 10:53 AM) Temperature [96.8-100.4 DegF] 98.5 DegF (06/24/23 11:01 AM) Mode of Delivery (Oxygen) Room air (06/24/23 11:01 AM) Room air (06/24/23 10:53 AM) Blood pressure sites Arm, left (06/24/23 11:01 AM) Temperature Route Oral (06/24/23 11:01 AM) Social History Social History Type Response Smoking Status Current every day sm oker; Tobacco user in household: Yes; Type: Cigarettes; Tobacco use times per day: 1/2 PPD; entered on: 08/09/16 Sex Patient Care team information Care Team Personnel Name: Vandana Gibbs RN Position: [facility] RN Member Role: Primary Care Nurse Name: Ginger Pate MD Position: [facility] Physician - Primary Care Member Role: PCP Address: Address: [address] [place] [address] [address] [place] [address]- Care Team Related Persons Name: MARGARET RAMÍREZ Address: home [address] [place] [address]. [place] [address] Name: REINA RAMÍREZ Address: home [address] [place] [address] Name: LUZ DE LA CRUZ
--- OUTSIDE RECORDS SUMMARY | 2024-03-02 18:42 | XMS_ITS | Continuity of Care Document ---
Author Organization [facility] Address [address] [place] [address]- Care Team Providers Care Entry Writer Name Role Phone Ginger Pate MD Primary Care Physician Encounter [facility] Date(s): 11/14/23 - 02/15/24 [facility] [address] [place] [address]- Attending Physician: Kathi Guerrero MD Admitting Physician: Kathi Guerrero MD Referring Physician: Ginger Pate MD Allergies, Adverse Reactions, [...] Comment: [facility] [id number] 2Result Comment: [facility] [id number] Medications albuterol 0.083% inhalation solution 3 mL = 2.5 mg, Inhalation, Every 6 hours, PRN for wheezing, DX COPD, # 60 each, 3 Refills, Maintenance, 10/21/20 16:57:00 EST, Solution, [facility], Partial fill upon patient request if theprescription is for a schedule II opioid drug., 181... Start Date: 10/21/20 Status: Ordered albuterol CFC free 90 mcg/inh inhalation aerosol 2, puffs, Inhalation, 4 times a day, PRN, # 1 each, Refills 11, Tot. Refills 11, Maintenance, 12/30/23 15:02:00 EST, Aerosol, Route to Pharmacy Electronically, NCPDP_[id number], [facility],183, cm, 12/30/23 12:59:00 EST, Height Start [...] 09/04/23 13:27:00 EDT, Route to Pharmacy Electronically, [facility], 183, cm, 06/27/23 10:36:00 EDT, Height Start Date: 09/04/23 Stop Date: 03/02/24 Status: Ordered atorvastatin 40 mg oral tablet 1 tablet = 40 mg, By Mouth, Daily, # 90 tablet, 2 Refills, Maintenance, 09/19/23 8:50:00 EST, [facility], 183, cm, 09/10/23 14:55:00 EDT, Height Start Date: 09/19/23 Status: Ordered Basaglar KwikPen 100 units/mL subcutaneous solution See Instructions, 45 units Subcutaneous Injection in morning and 35 units at bedtime Replacing Levemir not covered by insurance, # 15 mL, 5 Refills, Maintenance, 12/31/23 11:25:00 EST, Solution, [facility], Replacing Levemir not covered b... Start [...] Date: 06/27/23 Status: Ordered COMFORT EZ MIS [id number] COMFORT EZ MIS [id number], See Instructions, # 100 each, Refills 5, Tot. Refills 5, Maintenance, USE TO INJECT INSULIN BID DX E11.9, 02/22/21 11:54:00 EDT, Supply, 181, cm, 02/06/21 11:06:00 EDT, Height Start Date: 02/22/21 Status: Ordered COMFORT EZ MIS [id number] COMFORT EZ MIS [id number], See Instructions, # 100 each, 2 Refills, [...] Gm, 11 Refills, Maintenance, 07/23/22 11:21:00 EDT, [place], [facility], Partial fill upon patient request if [...] tablet, 1 Refills, Maintenance, 11/01/23 12:30:00 EST, [facility], 183, cm, 09/10/23 14:55:00 EDT, Height Start Date: 11/01/23 Status: Ordered Konsyl 100% oral powder for reconstitution = 7.5 Gm, By Mouth, 3 times a day, # 500 Gm, 0 Refills, Maintenance, 09/10/23 15:26:00 EDT, REC Powder, [facility], Partial fill upon patient request if the prescription is for a schedule II opioid drug., 183, cm, 09/10/23 14:55:00 EDT, Height Start Date: 09/10/23 Status: Ordered levothyroxine 150 mcg (0.15 mg) oral tablet 1 tablet, By Mouth, Daily, # 90 tablet, 2 Refills, Maintenance, 02/27/23 11:54:00 EDT, [facility], 181, cm, 01/02/23 13:54:00 EST, Height [...] 12/30/23 9:18:00 EST, Route to Pharmacy Electronically, [facility], 183, cm, 09/10/23 14:55:00 EDT, Height Start Date: 12/30/23 Status: Ordered metFORMIN 1000 mg oral tablet 1 tablet, By Mouth, 2 times a day, # 60 tablet, 5 Refills, Maintenance, 01/27/24 11:02:00 EDT, [facility], 183, cm, 12/30/23 12:59:00 EST, Height [...] 15 mL, 5 Refills, 12/27/22 14:29:00 EST, [facility], 181, cm, 09... Start Date: 12/27/22 Status: Ordered PEG-3350 with Electrolytes Lemon (Eqv-GoLYTELY) oral powder for reconstitution See Instructions, Per GI office instructions, # 4,000 mL, 0 Refills, Maintenance, 12/19/23 10:42:00EST, [facility], Partial fill upon patient request if the prescription is for a schedule II opioid drug., Per GI office instructions, 183, cm... Start Date: 12/19/23 Status: Ordered PEN NEEDLES [id number] PEN NEEDLES [id number], See Instructions, # 200 each, Refills 5, [...] Replace Required Details, Route to Pharmacy Electronically, [facility], 183, cm, 09/10/23 14:55:00... Start Date: [...] each, 11 Refills, Maintenance, 01/09/24 12:05:00 EST, [facility], 183, cm, 12/30/23 12:59:00 EST, Height [...] Team Personnel Name: Vandana Gibbs RN Position: [facility] RN Member Role: Primary Care Nurse Name: Ginger Pate MD Position: [facility] Physician - Primary Care Member Role: PCP Address: Address: [address] [place] [address] [address] [place] [address]- Care Team Related Persons Name: MARGARET RAMÍREZ Address: home [address] [place] [address]. [place] [address] Name: REINA RAMÍREZ Address: home [address] [place] [address] Name: LUZ DE LA CRUZ
--- OUTSIDE RECORDS SUMMARY | 2024-03-02 18:42 | XMS_ITS | Continuity of Care Document ---
Author Organization [facility] Address [address] [place] [address]- Care Team Providers Care Wire Stitcher Name Role Phone Rio ROBISON, Ginger Primary Care Physician Encounter [facility] Date(s): 10/25/20 - 11/24/20 [facility] [address] [place] [address]- Allergies, Adverse Reactions, Alerts Substance Reaction Severity Status amoxicillin Active sulfa drugs Active Immunizations Given and Recorded Vaccine Date Status Refusal Reason influenza virus vaccine, inactivated 1 09/24/19 Gi mitch influenza virus vaccine, inactivated 2 08/06/17 Gi mitch influenza virus vaccine, inactivated 11/02/15 Give n pneumococcal 23-valent vaccine 03/01/15 Given tetanus/diphtheria/pertussis, acel(Tdap) 03/01/15 Given 1Result Comment: [facility] [id number] 2Result Comment: [facility] [id number] Medications Advair Diskus 250 mcg-50 mcg inhalation powder 1, puffs, Inhalation, Every 12 hours, rinse mouth and throat after use, # 28 each, Refills 6, Tot. Refills 6, Maintenance, 10/21/20 13:08:00 EST, Route to Pharmacy Electronically, NCPDP_[id number], [facility], please hold for when symbicort... Start Date: 10/21/20 Stop Date: 05/19/21 Status: Ordered albuterol 0.083% inhalation solution 3 mL = 2.5 mg, Inhalation, Every 6 hours, PRN for wheezing, DX COPD, # 60 each, 3 Refills, Maintenance, 10/21/20 16:57:00 EST, Solution, [facility], Partial fill upon patient request if [...] 10/31/20 9:30:00 EST, Route to Pharmacy Electronically, [facility], Rx resent from 05/11/19., 181, cm, 10/21/20 11:47:00 EST, Height Start Date: 10/31/20 Status: Ordered atorvastatin 40 mg oral tablet 1 tablet = 40 mg, By Mouth, Daily, # 90 tablet, 1 Refills, Maintenance, 07/26/20 12:07:00 EDT, Tablet, [facility], 181, cm, 12/09/19 15:01:00 EST, Height, [...] 10/09/18 15:47:31 EST, Route to Pharmacy Electronically, [id number], DENNISE Ure[facility]amp; [facility] Start Date: [...] tablet, 0 Refills, Maintenance, 10/24/20 10:05:00 EST, [facility], 181, cm, 10/21/20 11:47:00 EST, Height Start Date: 10/24/20 Status: Ordered ibuprofen 600 mg oral tablet 600 mg, 1, tablet, By Mouth, Every 6 hours, PRN, # 120 tablet, Refills 0, Tot. Refills 0, Maintenance, Pain, 01/08/20 15:02:00 EST, Route to Pharmacy Electronically, [facility], 181, cm, 12/09/19 15:01:00 EST, Height, 100.6, kg, 04/07/18 20:... Start Date: 01/08/20 Status: Ordered Incruse Ellipta 62.5 mcg/inh inhalation powder 1 each, Inhalation, Every 24 hours, doses should be taken at least 24 hours apart, # 1 each, 11 Refills, Maintenance, 10/25/20 15:07:00 EST, Powder, [facility], Partial fill upon patient request if [...] 5 Refills, Soft Stop, 10/25/20 9:50:00 EST, [facility], 181, cm, 10/21/20 11:47:00 EST, Height Start Date: 10/25/20 Status: Ordered levothyroxine 150 mcg (0.15 mg) oral tablet 1 tablet = 150 mcg, By Mouth, Daily, # 30 tablet, 5 Refills, Maintenance, 11/08/20 11:44:00 EST, Tablet, [facility], 181, cm, 10/21/20 11:47:00 EST, Height [...] 05/24/20 13:38:00 EDT, Route to Pharmacy Electronically, [facility], 181, cm, 12/09/19 15:01:00 EST, Height, Dry Weight Start Date: 05/24/20 Status: Ordered metFORMIN 1000 mg oral tablet 1 tablet = 1,000 mg, By Mouth, 2 times a day, # 60 tablet, 5 Refills, Maintenance, 11/01/20 9:36:00EST, [facility], 181, cm, 10/21/20 11:47:00 EST, Height [...] 12/13/20 13:20:00 EST, 11/01/20 13:20:00 EST, Patch, [facility], Partial fill upon patient request if the prescriptionis for a schedule II opioid drug., 1 patch Topicall... Start Date: 11/01/20 Stop Date: 12/13/20 Status: Ordered Pen [place], 30 G x 8 mm BD Ultra [...] 12:55:00 EST, Aerosol, Route to Pharmacy Electronically, NCPDP_[id number], [facility], 181, , 08/03/20 9:1... Start Date: 09/26/20 Stop Date: 03/25/21 Status: Ordered ProAir HFA 90 mcg/inh inhalation aerosol with adapter 2, puffs, Inhalation, Every 6 hours, PRN, use with spacer chamber, # 1 each, Refills 5, Tot. Refills 5, Maintenance, 03/25/21 12:55:00 EDT, Aerosol, Route to Pharmacy Electronically, NCPDP_[id number], [facility], 181, cm, 10/21/20 11:47:00 E... Start Date: 03/25/21 Stop Date: 09/21/21 Status: Ordered Prolixin DECANOATE Inj = 25 mg, Intramuscular, Every 21 days, 0 Refills, Maintenance, 01/19/19 14:36:12 EDT Start Date: 01/19/19 Status: Ordered tamsulosin 0.4 mg oral capsule 1, capsule, By Mouth, Daily, # 30 capsule, Refills 11, Tot. Refills 0, Maintenance, 05/09/20 8:55:00 EDT, Route to Pharmacy Electronically, [facility], 181, , 12/09/19 15:01:00 EST, Height Start Date: 05/09/20 Status: Ordered Viagra 50 mg oral tablet 1 tablet = 50 mg, By Mouth, Daily, PRN as needed for erectile dysfunction, 1 hour before sexual activity, # 5 tablet, 0 Refills, Maintenance, 12/09/19 15:44:00 EST, Tablet, [facility], 181,cm, 12/09/19 15:01:00 EST, Height, 100.6, [...]
--- OUTSIDE RECORDS SUMMARY | 2024-03-02 18:42 | XMS_ITS | Continuity of Care Document ---
Author Organization [facility] ter Address [address] [place] [address]- Care Team Providers Care Lumber Tying Machine Operator Name Role Phone Rio ROBISON, Ginger Primary Care Physician Encounter [facility] Date(s): 04/09/22 - 05/30/[address] [address] Attending Physician: Mohit Hawthorne MD Admitting Physician: Mohit Hawthorne MD Referring Physician: Mohit Hawthorne MD Allergies, Adverse Reactions, Alerts Substance Reaction Severity Status amoxicillin Active sulfa drugs Active Immunizations Given and Recorded Vaccine Date Status Refusal Reason influenza virus vaccine, inactivated 1 09/24/19 Gi mitch influenza virus vaccine, inactivated 2 08/06/17 Gi mitch influenza virus vaccine, inactivated 11/02/15 Give n pneumococcal 23-valent vaccine 03/01/15 Given tetanus/diphtheria/pertussis, acel(Tdap) 03/01/15 Given 1Result Comment: [facility] [id number] 2Result Comment: [facility] [id number] Medications albuterol 0.083% inhalation solution 3 mL = 2.5 mg, Inhalation, Every 6 hours, PRN for wheezing, DX COPD, # 60 each, 3 Refills, Maintenance, 10/21/20 16:57:00 EST, Solution, [facility], Partial fill upon patient request if theprescription is for a schedule II opioid drug., 181... Start Date: 10/21/20 Status: Ordered albuterol CFC free 90 mcg/inh inhalation aerosol 2, puffs, Inhalation, 4 times a day, PRN, # 18 Gm, Refills 11, Tot. Refills 11, Maintenance, 01/12/21 15:28:00 EST, Aerosol, Route to Pharmacy Electronically, NCPDP_[id number], [facility], 181, cm, 01/04/21 15:28:00 EST, Height Start Date: 01/12/21 Stop Date: 01/07/22 Status: Ordered albuterol CFC free 90 mcg/inh inhalation aerosol 2, puffs, Inhalation, 4 times a day, PRN, # 18 Gm, Refills 11, Tot. Refills 11, Maintenance, 01/15/22 11:28:00 EST, Aerosol, Route to Pharmacy Electronically, NCPDP_[id number], [facility], 181, cm, 01/15/22 11:07:00 EST, Height [...] 11 Refills, Maintenance, 01/07/22 15:29:00 EST, Powder, [facility], Partial fill upon patient request if [...] Instructions ReplaceRequired Details, Route to Pharmacy Electronically, [facility], 181, cm, 08/09/21 14:56:00 EDT, Height Start Date: 01/02/22 Status: Ordered atorvastatin 40 mg oral tablet 1 tablet, By Mouth, Daily, # 90 tablet, 1 Refills, [facility], 181, cm, 01/15/22 11:07:00EST, Height Start [...] Date: 08/11/21 Status: Ordered COMFORT EZ MIS [id number] COMFORT EZ MIS [id number], See Instructions, # 100 each, Refills 5, Tot. Refills 5, Maintenance, USE TO INJECT INSULIN BID DX E11.9, 02/22/21 11:54:00 EDT, Supply, 181, cm, 02/06/21 11:06:00 EDT, Height Start Date: 02/22/21 Status: Ordered COMFORT EZ MIS [id number] COMFORT EZ MIS [id number], See Instructions, # 100 each, 2 Refills, [...] 10/09/18 15:47:31 EST, Route to Pharmacy Electronically, [id number], [facility]re[facility]; [facility] Start Date: [...] tablet, 0 Refills, Maintenance, 02/01/22 7:20:00 EDT, [facility], 181, cm, 01/15/22 11:07:00 EST, Height Start Date: 02/01/22 Status: Ordered ibuprofen 600 mg oral tablet 600 mg, 1, tablet, By Mouth, Every 6 hours, PRN, # 120 tablet, Refills 0, Tot. Refills 0, Maintenance, Pain, 04/04/21 16:38:00 EDT, Route to Pharmacy Electronically, [facility], 181, cm, 02/06/21 11:06:00 EDT, Height [...] AT BEDTIME, # 30 mL, 4 Refills, [facility], 181, cm, 08/09/21 14:56:00 EDT, Height Start Date: 11/08/21 Status: Ordered levothyroxine 150 mcg (0.15 mg) oral tablet 1 tablet, By Mouth, Daily, # 30 tablet, 5 Refills, [facility], 181, cm, 08/09/21 14:56:00EDT, Height Start [...] tablet, Refills 5, Route to Pharmacy Electronically, [facility], 181, cm, 01/15/22 11:07:00 EST, Height Start Date: 02/01/22 Status: Ordered metFORMIN 1000 mg oral tablet 1 tablet, By Mouth, 2 times a day, # 60 tablet, 5 Refills, [facility], 181, cm, 01/15/22 11:07:00 EST, Height [...] CALL PCP, # 15 mL, 5 Refills, [facility], 181, cm, 01/15/22 11:07:00 EST, He... Start Date: 03/29/22 Status: Ordered Pen [place], 30 G x 8 mm BD Ultra [...] By Mouth, Daily, # 30 capsule, Refills 9, Route to Pharmacy Electronically, [facility], 181, cm, 01/15/22 11:07:00 EST, Height Start Date: 05/28/22 Status: Ordered Vistaril pamoate 25 mg oral [...]
--- OUTSIDE RECORDS SUMMARY | 2024-03-02 18:42 | XMS_ITS | Continuity of Care Document ---
Author Organization [facility] Adult Address [address] [place] [address]- Care Team Providers Care Credit Or Loans Officer Name Role Phone Rio ROBISON, [place] Primary Care Physician En[place] [facility] [place] Date(s): 06/27/23 - 07/04/23 [facility] [address] [place] [address]- Attending Physician: Not on Staff, Attending MD [...] 1Result Comment: [facility] [id number] 2Result Comment: [facility] [id number] Medications albuterol 0.083% inhalation solution 3 mL = 2.5 mg, Inhalation, Every 6 hours, PRN for wheezing, DX COPD, # 60 each, 3 Refills, Maintenance, 10/21/20 16:57:00 EST, Solution, [facility], Partial fill upon patient request if theprescription is for a schedule II opioid drug., 181... Start Date: 10/21/20 Status: Ordered albuterol CFC free 90 mcg/inh inhalation aerosol 2, puffs, Inhalation, 4 times a day, PRN, # 18 Gm, Refills 11, Tot. Refills 11, Maintenance, 01/02/23 14:27:00 EST, Aerosol, Route to Pharmacy Electronically, NCPDP_[id number], [facility], 181, cm, 01/02/23 13:54:00 EST, Height [...] Replace Required Details, Route to Pharmacy Electronically, [facility], 181, cm, 01/02/23 13:... Start Date: 01/04/23 Status: Ordered atorvastatin 40 mg oral tablet See Instructions, TAKE 1 TABLET BY MOUTH DAILY, # 30 tablet, 0 Refills, Maintenance, 03/28/23 15:47:00 EDT, [facility], 181, cm, 01/02/23 13:54:00 EST, Height [...] Date: 06/27/23 Status: Ordered COMFORT EZ MIS [id number] COMFORT EZ MIS [id number], See Instructions, # 100 each, Refills 5, Tot. Refills 5, Maintenance, USE TO INJECT INSULIN BID DX E11.9, 02/22/21 11:54:00 EDT, Supply, 181, cm, 02/06/21 11:06:00 EDT, Height Start Date: 02/22/21 Status: Ordered COMFORT EZ MIS [id number] COMFORT EZ MIS [id number], See Instructions, # 100 each, 2 Refills, [...] Gm, 11 Refills, Maintenance, 07/23/22 11:21:00 EDT, [place], [facility], Partial fill upon patient request if the prescription is for a schedule II opioid drug., 1 sprays Nares, Both 2 times a day, 18... Start Date: 07/23/22 Status: Ordered fluticasone/umeclidinium/vilanterol 100 mcg-62.5 mcg-25 mcg/inh inhalation powder 1 puffs, Inhalation, Daily, # 1 each, 11 Refills, Maintenance, 01/02/23 14:26:00 EST, [facility], Partial fill upon patient request if [...] tablet, 1 Refills, Maintenance, 03/28/23 16:39:00 EDT, [facility], 181, cm, 01/02/23 13:54:00 EST, Height Start Date: 03/28/23 Status: Ordered ibuprofen 600 mg oral tablet 600 mg, 1, tablet, By Mouth, 3 times a day, PRN, for 14 days, with food or milk, # 42 tablet, Refills 0, Tot. Refills 0, Acute 07/11/23 11:19:00 EDT, Pain , Moderate, 06/27/23 11:19:00 EDT, Route to Pharmacy Electronically, [facility], [place]... Start Date: 06/27/23 Stop Date: 07/11/23 Status: Ordered Levemir FlexTouch 100 units/mL subcutaneous solution See Instructions, INJECT 30 UNITS SUBCUTANEOUSLY EVERY NIGHT AT BEDTIME, # 30 mL, 4 Refills, 07/09/22 15:53:00 EDT, [facility], 181, cm, 07/09/22 14:59:00 EDT, Height Start Date: 07/09/22 Status: Ordered levothyroxine 150 mcg (0.15 mg) oral tablet 1 tablet, By Mouth, Daily, # 90 tablet, 2 Refills, Maintenance, 02/27/23 11:54:00 EDT, [facility], 181, cm, 01/02/23 13:54:00 EST, Height [...] 03/15/23 9:56:00 EDT, Route to Pharmacy Electronically, [facility], 181, cm, 01/02/23 13:54:00 EST, Height Start Date: 03/15/23 Status: Ordered metFORMIN 1000 mg oral tablet 1 tablet, By Mouth, 2 times a day, # 60 tablet, 5 Refills, Maintenance, 05/30/23 11:36:00 EDT, [facility], 180.3, cm, 04/10/23 15:18:00 EDT, Height [...] 15 mL, 5 Refills, 12/27/22 14:29:00 EST, [facility], 181, cm, 09... Start Date: 12/27/22 Status: Ordered Pen [place], 30 G x 8 mm BD Ultra [...] Replace Required Details, Route to Pharmacy Electronically, [facility], 180.3, cm, 04/10/23 15:18:... Start Date: [...] recent to oldest [Reference Range]: 1 Height 183 cm (06/27/23 10:36 AM) Weight 79.8 kg (06/27/23 10:36 AM) Oxygen Saturation [94-100 %] 97 % (06/27/23 10:36 AM) Pulse Rate [55-90 bpm] 83 bpm (06/27/23 10:36 AM) Body Mass Index [18.5-24.99 kg/m2] 23.83 kg/m2 (06/27/23 10:36 AM) Blood Pressure [90-138/55-84 mm Hg] 122/ 73mm Hg (06/27/23 10:36 AM) Mode of Delivery (Oxygen) Room air (06/27/23 10:36 AM) Blood pressure sites Arm, right (06/27/23 10:36 AM) Weight Obtained Via Standing scale (06/27/23 10:36 AM) Social History Social History Type Response Smoking Status Current every day sm oker; Tobacco user in household: Yes; Type: Cigarettes; Tobacco use times per day: 1/2 PPD; entered on: 08/09/16 Sex Note * Kay Richardson: PERFORM, SIGN, VERIFY Event Display: Patient Education/Instruction Authored Date: [id number] [facility] *B[facility] [place] [facility] Clinical Summary Name RONNY TAPIA Age 58 Years 1965 PCP Ginger Pate MD PCP Visit Date 06/27/2023 10:34:00 Additional Instructions: Scheduled Appointments?? Future Appointments ?No Future Appointments Scheduled Follow-Up Instructions ?? With: Address: When: Ginger Pate MD 06/27/2023 12:00 AM Comments: 4 months Diagnosis Full incontinence of feces; Unspecified urinary incontinence; Pain in right knee; Benign prostatic hyperplasia without lower urinary tract symptoms Medications: Please continue your medications until treatment is completed or stopped by your provider. Discuss any questions related to medications with your provider. New Medications [facility], [address] [id number], [phone] Ibuprofen (ibuprofen 600 mg oral tablet) 1 tab(s) Oral 3 times a day as needed Pain , Moderate for 14 Days. with food or milk. Refills: 0. Next Dose: Medications to Continue with No Changes These medications were not printed or sent to your pharmacy Albuterol (albuterol 0.083% inhalation solution) 3 Milliliter Inhalation every 6 hours as needed for wheezing. DX COPD. Refills: 3. Next Dose: Albuterol (albuterol CFC free 90 mcg/inh inhalation aerosol) 2 puff(s) Inhalation 4 times a day as needed Wheezing/Shortness of Breath for 30 Days. Refills: 11. Next Dose: Atenolol (atenolol 50 mg oral tablet) TAKE 1/2 OF A TABLET BY MOUTH EVERY DAY. Refills: 2. Next Dose: Atorvastatin (atorvastatin 40 mg oral tablet) TAKE 1 TABLET BY MOUTH DAILY. Refills: 0. Next Dose: Clozapine (clozapine 25 mg oral tablet) TAKE 2 TABLET BY MOUTH ONCE A DAY TDD CLOZAPINE 50 MG BY MOUTH DAILY AND 200 MG BY MOUTH DAILY AT BEDTIME. Next Dose: Clozapine (Clozaril 200 mg oral tablet) 1 tab(s) Oral 3 times a day. Next Dose: Clozapine (Clozaril 50 mg oral tablet) 1.5 tab(s) Oral 3 times a day. Next Dose: Durable Medical Equipment (Alcohol Pads) use when testing glucose and injecting insulin dx e10.9. Refills: 11. Next Dose: Durable Medical Equipment (COMFORT EZ MIS [id number]) USE TO INJECT INSULIN BID DX E11.9. Refills: 5. Next Dose: Durable Medical Equipment (Freestyle Lite Lancets) USE TO TEST GLUCOSE TID; 8AM, 5PM, 8PM DX E10.9.Refills: 11. Next Dose: Durable Medical Equipment (Freestyle Lite Test Strips) USE TO TEST GLUCOSE TID; 8AM, 5PM, 8PM DX E10.9. Refills: 6. Next Dose: Durable Medical Equipment (Nebulizer/Compressor) Use with albuterol solution q6h Dx: COPD (J44.9); as needed Wheezing/Shortness of Breath. Refills: 0. Next Dose: Durable Medical Equipment (Pen [place], 30 G x 8 mm BD Ultra Fine II) for use w levemir flex pen use as directed for Type 1 Diabetes Mellitus. Refills: 3. Next Dose: Fluticasone Nasal (fluticasone 50 mcg/inh nasal spray) 1 spray(s) Nares, Both twice a day. Refills:11. Next Dose: fluticasone/umeclidinium/vilanterol (fluticasone/umeclidinium/vilanterol 100 mcg-62.5 mcg-25 mcg/inh inhalation powder) 1 puff(s) Inhalation Daily for 30 Days. Refills: 11. Next Dose: Gabapentin (gabapentin 600 mg oral tablet) 1 tab(s) Oral 3 times a day. Refills: 1. Next Dose: Insulin Aspart (NovoLOG FlexPen 100 units/mL injectable solution) INJECT SUBCUTANEOUSLY THREE TIMESDAILY WITH MEALS PER SCALE 110-150=0UNITS; 151- 200=2UN; 201-250=6UN; 251-300=8UN; 301-350=10UNITS; >350=12UN AND CALL PCP. Refills: 5. Next Dose: Insulin Detemir (Levemir FlexTouch 100 units/mL subcutaneous solution) INJECT 30 UNITS SUBCUTANEOUSLY EVERY NIGHT AT BEDTIME. Refills: 4. Next Dose: Levothyroxine (levothyroxine 150 mcg (0.15 mg) oral tablet) 1 tab(s) Oral Daily. Refills: 2. Next Dose: [place] (lithium 450 mg oral tablet, extended release) Next Dose: [place] (lithium 450 mg oral tablet, extended release) 1 tab(s) Oral twice a day. Next Dose: Loratadine (loratadine 10 mg oral tablet) 1 tab(s) Oral Daily. Refills: 5. Next Dose: Metformin (metFORMIN 1000 mg oral tablet) 1 tab(s) Oral twice a day. Refills: 5. Next Dose: Miscellaneous Rx (ALCOHOL PREP PAD 70%) USE WHEN TESTING GLUCOSE AND INJECTING INSULIN. Refills: 5. Next Dose: Miscellaneous Rx (BD PEN NEEDL MIS 31GX5/16) USE DIRECTED WITH INSULIN PENS. Refills: 1. Next Dose: Miscellaneous Rx (COMFORT EZ MIS [id number]) USE DIRECTED WITH INSULIN PENS. Refills: 2. Next Dose: Miscellaneous Rx (COMFRT TOUCH PAD ALC PREP) USE WHEN TESTING GLUCOSE AND INJECTING INSULIN. Refills: 4. Next Dose: Miscellaneous Rx (FREESTYLE VICENTE LITE) USE THREE TIMES DAILY AT 8 AM, 5 PM AND 8 PM. Refills: 5. Next Dose: Tamsulosin (tamsulosin 0.4 mg oral capsule) TAKE 1 CAPSULE BY MOUTH EVERY DAY. Refills: 5. Next Dose: Tamsulosin (tamsulosin 0.4 mg oral capsule) Next Dose: Terbinafine (terbinafine 250 mg oral tablet) 1 tab(s) Oral Daily. Next Dose: No Longer Take the Following Medications Ammonium Lactate 12% (Lac-Hydrin 12% cream) 1 regina Topically twice a day. Refills: 0. Clonazepam (clonazePAM 0.5 mg oral tablet) 1 tab(s) Oral twice a day. Allergy Info:?? sulfa drugs; amoxicillin Medications Given This Visit Future Orders ?Complete Urinalysis/Reflex Culture? Order Date:06/27/23?- Complete on or after?06/27/23 ?Knees Bilat Standing? Order Date:06/27/23?- Complete on or after?06/27/23 Vital Signs Height 183 cm Weight 79.8 kg BMI 23.83 kg/m2 Blood Pressure 122 mm Hg/73 mm Hg Temperature Pulse Rate 83 bpm Respiratory Rate 02 Sat Mode of Delivery 97 %/Room air You can now view a summary of your hospital visit from the comfort of your home through a free online portal called [employer]. [employer] is a website that allows you to securely view your medical information including discharge summary, medications and follow-up visits. ??You can alsosend a secure electronic message to your doctor???s office to request appointments, renew medications or just ask a question. You can enroll at [email or web address] or register during your next office visit. Disclaimer:?? The information provided is of a general nature and is intended to be used in conjunction with the recommendations and advice of your health care practitioner. ??Every effort has been made to ensure that the information provided is accurate and complete at the time it is provided to you however, as your needs change, or, as new ??information becomes available, different or additional instructions may be required. If you have questions, please consult with your primary care provider or pharmacist, as appropriate. ??This information is not intended to serve as substitution for assessment and evaluation by a qualified health care provider. If you do not have a primary care provider, you may find a [facility] provider by calling [facility] at [phone]. For information about the plan of care including goals and instructions for your diagnosis, please see the patient education orders section of this document. Patient Education Materials?? The content of this educational material or handout may have been modified, supplemented, or adapted from its original content and format to support your individualized medical care. Patient Care team information Care Team Personnel Name: Vandana Gibbs RN Position: S RN Member Role: Primary Care Nurse Name: Ginger Pate MD Position: S Physician - Primary Care Member Role: PCP Address: Address: [employer] [address] [place], [place] - Care Team Related Persons Name: MARGARET RAMÍREZ Address: home [address] [place] [address] [place], [place] Name: REINA RAMÍREZ Address: home [address] [place] [id number] Name: LUZ DE LA CRUZ
--- OUTSIDE RECORDS SUMMARY | 2024-03-02 18:42 | XMS_ITS | Continuity of Care Document ---
Author Organization [facility] Adult Address [address] [place] [address]- Care Team Providers Care Civil Engineer In Training Name Role Phone Ginger Pate MD Primary Care Physician [place] [facility] [facility] [place]23 [place] 04/17/23 [facility] Adult [address] [place] [id number]- Encounter Diagnosis Well adult exam(Discharge Diagnosis) - 04/10/23 Type 2 diabetes mellitus with diabetic neuropathy(Discharge Diagnosis) - 04/10/23 Schizo-affective schizophrenia(Discharge Diagnosis) - 04/10/23 Dyslipidemia(Discharge Diagnosis) - 04/10/23 Hypothyroidism(Discharge Diagnosis) - 04/10/23 COPD (chronic obstructive pulmonary disease)(Discharge Diagnosis) - 04/10/23 Tobacco abuse(Discharge Diagnosis) - 04/10/23 Attending Physician: Ginger Pate MD Allergies, Adverse [...] toxoids (Td) 02/03/13 Recorded 1Result Comment: [facility] [id number] 2Result Comment: [facility] [id number] Medications albuterol 0.083% inhalation solution 3 mL = 2.5 mg, Inhalation, Every 6 hours, PRN for wheezing, DX COPD, # 60 each, 3 Refills, Maintenance, 10/21/20 16:57:00 EST, Solution, [facility], Partial fill upon patient request if theprescription is for a schedule II opioid drug., 181... Start Date: 10/21/20 Status: Ordered albuterol CFC free 90 mcg/inh inhalation aerosol 2, puffs, Inhalation, 4 times a day, PRN, # 18 Gm, Refills 11, Tot. Refills 11, Maintenance, 01/02/23 14:27:00 EST, Aerosol, Route to Pharmacy Electronically, [id number], [facility], 181, cm, 01/02/23 13:54:00 EST, Height [...] Replace Required Details, Route to Pharmacy Electronically, [facility], 181, cm, 01/02/23 13:... Start Date: 01/04/23 Status: Ordered atorvastatin 40 mg oral tablet See Instructions, TAKE 1 TABLET BY MOUTH DAILY, # 30 tablet, 0 Refills, Maintenance, 03/28/23 15:47:00 EDT, [facility], 181, cm, 01/02/23 13:54:00 EST, Height [...] Date: 08/11/21 Status: Ordered COMFORT EZ MIS [id number] COMFORT EZ MIS [id number], See Instructions, # 100 each, Refills 5, Tot. Refills 5, Maintenance, USE TO INJECT INSULIN BID DX E11.9, 02/22/21 11:54:00 EDT, Supply, 181, cm, 02/06/21 11:06:00 EDT, Height Start Date: 02/22/21 Status: Ordered COMFORT EZ MIS [id number] COMFORT EZ MIS [id number], See Instructions, # 100 each, 2 Refills, [...] Gm, 11 Refills, Maintenance, 07/23/22 11:21:00 EDT, [facility], [facility], Partial fill upon patient request if the prescription is for a schedule II opioid drug., 1 sprays Nares, Both 2 times a day, 18... Start Date: 07/23/22 Status: Ordered fluticasone/umeclidinium/vilanterol 100 mcg-62.5 mcg-25 mcg/inh inhalation powder 1 puffs, Inhalation, Daily, # 1 each, 11 Refills, Maintenance, 01/02/23 14:26:00 EST, [facility], Partial fill upon patient request if [...] tablet, 1 Refills, Maintenance, 03/28/23 16:39:00 EDT, [facility], 181, cm, 01/02/23 13:54:00 EST, Height [...] 30 mL, 4 Refills, 07/09/22 15:53:00 EDT, [facility], 181, cm, 07/09/22 14:59:00 EDT, Height Start Date: 07/09/22 Status: Ordered levothyroxine 150 mcg (0.15 mg) oral tablet 1 tablet, By Mouth, Daily, # 90 tablet, 2 Refills, Maintenance, 02/27/23 11:54:00 EDT, [facility], 181, cm, 01/02/23 13:54:00 EST, Height [...] 03/15/23 9:56:00 EDT, Route to Pharmacy Electronically, [facility], 181, cm, 01/02/23 13:54:00 EST, Height Start Date: 03/15/23 Status: Ordered metFORMIN 1000 mg oral tablet 1 tablet, By Mouth, 2 times a day, # 60 tablet, 4 Refills, Maintenance, 12/14/22 8:54:00 EST, [facility], 181, cm, 07/23/22 10:45:00 EDT, Height [...] 15 mL, 5 Refills, 12/27/22 14:29:00 EST, [facility], 181, cm, 09... Start Date: 12/27/22 Status: Ordered Pen Odum, 30 G x 8 mm BD Ultra [...] schizophrenia Confirmed Active Tobacco abuse Confirmed Active Diagnosis Diagnosis Type Effective Dates Health Status Clinical Service Informant Well adult exam Discharge Diagnosis 04/10/23 Type 2 diabetes mellitus with diabetic neuropathy Discharge Diagnosis 04/10/23 Schizo-affective schizophrenia Discharge Diagnosis 04/10/23 Dyslipidemia Discharge Diagnosis 04/10/23 Hypothyroidism Discharge Diagnosis 04/10/23 COPD (chronic obstructive pulmonary disease) Discharge Diagnosis 04/10/23 Tobacco abuse Discharge Diagnosis 04/10/23 Vital Signs Most recent to oldest [Reference Range]: 1 Height 180.3 cm (04/10/23 3:18 PM) Weight 81.3 kg (04/10/23 3:18 PM) Oxygen Saturation [94-100 %] 96 % (04/10/23 3:18 PM) Pulse Rate [55-90 bpm] 75 bpm (04/10/23 3:18 PM) Body Mass Index [18.5-24.99 kg/m2] 25.01 kg/m2 *H* (04/10/23 3:18 PM) Blood Pressure [90-138/55-84 mm Hg] 112/ 70mm Hg (04/10/23 3:18 PM) Temperature [96.8-100.4 DegF] 98.4 DegF (04/10/23 3:18 PM) Mode of Delivery (Oxygen) Room air (04/10/23 3:18 PM) Blood pressure sites Arm, left (04/10/23 3:18 PM) Temperature Route Oral (04/10/23 3:18 PM) Social History Social History Type Response Smoking Status Current every day sm oker; Tobacco user in household: Yes; Type: Cigarettes; Tobacco use times per day: 1/2 PPD; entered on: 08/09/16 Sex Note * Colon , Charley: PERFORM, SIGN, VERIFY Event Display: Patient Education/Instruction Authored Date: [id number] [facility] *[facility] [place] [facility] Clinical Summary Name RONNY TAPIA Age 57 Years 1965 PCP Ginger Pate MD PCP Visit Date 04/10/2023 15:05:00 Additional Instructions: Scheduled Appointments?? Future Appointments ?*WF??Pulm??[place] ?Phone:??--?Fax:??-- ?Appt. Date:??06/19/2023?1:40 PM ?Scheduled Provider:??Mohit Hawthorne MD Follow-Up Instructions ?? With: Address: When: Ginger Pate MD Within 1 year Comments: [facility] With: Address: When: Ginger Pate MD Within 6 months Comments: RET Diagnosis Encounter for general adult medical examination without abnormal findings; Type 2 diabetes mellituswith diabetic neuropathy, unspecified; Schizoaffective disorder, bipolar type; Chronic obstructive pulmonary disease, unspecified; Hypothyroidism, unspecified; Hyperlipidemia, unspecified; Tobacco use; Schizoaffective disorder, unspecified Medications: Please continue your medications until treatment is completed or stopped by your provider. Discuss any questions related to medications with your provider. Medications to Continue Taking That Have Changed These medications were not printed or sent to your pharmacy - [place] (lithium 450 mg oral tablet, extended release) 1 tab(s) Oral twice a day. Next Dose: Medications to Continue with No [...] for 30 Days. Refills: 11. Next Dose: Ammonium Lactate 12% (Lac-Hydrin 12% cream) 1 regina Topically twice a day. Refills: 0. Next Dose: Atenolol (atenolol 50 mg oral tablet) TAKE 1/2 OF A TABLET BY MOUTH EVERY DAY. Refills: 2. Next Dose: Atorvastatin (atorvastatin 40 mg oral tablet) TAKE 1 TABLET BY MOUTH DAILY. Refills: 0. Next Dose: Clonazepam (clonazePAM 0.5 mg oral tablet) 1 tab(s) Oral twice a day. Next Dose: Clozapine (clozapine 25 mg oral tablet) TAKE 2 TABLET BY MOUTH ONCE A DAY TDD CLOZAPINE 50 MG BY MOUTH DAILY AND 200 MG BY MOUTH DAILY AT BEDTIME. Next Dose: Durable Medical Equipment (Alcohol Pads) use when testing glucose and injecting insulin dx e10.9. Refills: 11. Next Dose: Durable Medical Equipment (COMFORT EZ MIS [id number]) USE TO INJECT INSULIN BID DX E11.9. [...] 0. Next Dose: Durable Medical Equipment (Pen Odum, 30 G x 8 mm BD Ultra [...] tab(s) Oral Daily. Refills: 2. Next Dose: Loratadine (loratadine 10 mg oral tablet) 1 tab(s) Oral Daily. Refills: 5. Next Dose: Metformin (metFORMIN 1000 mg oral tablet) 1 tab(s) Oral twice a day. Refills: 4. Next Dose: Miscellaneous Rx (ALCOHOL PREP PAD 70%) USE WHEN TESTING GLUCOSE AND INJECTING INSULIN. Refills: 5. Next Dose: Miscellaneous Rx (BD PEN NEEDL MIS 31GX5/16) USE DIRECTED WITH INSULIN PENS. Refills: 1. Next Dose: Miscellaneous Rx (COMFORT EZ MIS [id number]) USE DIRECTED WITH INSULIN PENS. Refills: 2. Next Dose: Miscellaneous Rx (COMFRT TOUCH PAD ALC PREP) USE WHEN TESTING GLUCOSE AND INJECTING INSULIN. Refills: 4. Next Dose: Miscellaneous Rx (FREESTYLE VICENTE LITE) USE THREE TIMES DAILY AT 8 AM, 5 PM AND 8 PM. Refills: 5. Next Dose: No Longer Take the Following Medications Azithromycin (Azithromycin 5 Day Dose Pack 250 mg oral tablet) 1 pack/packet Oral once. Refills: 0. Benztropine (benztropine 1 mg oral tablet) 1 tab(s) Oral Daily in the morning. Divalproex Sodium (Depakote ER 250 mg oral tablet, extended release) 2 tab(s) Oral Daily. Famotidine (famotidine 20 mg oral tablet) 1 tab(s) Oral twice a day. Refills: 2. Fluphenazine (fluPHENAZine 2.5 mg oral tablet) 1 tab(s) Oral Daily in the morning. HydrOXYzine (Atarax Tablet) 25 Milligram Oral twice a day. HydrOXYzine (Vistaril pamoate 25 mg oral capsule) 1 capsule Oral twice a day. Insulin Lispro (insulin lispro 100 u/ml subcutaneous injection) SLIDING SCALE glucose insulin 110-150=0units 151-200=2un 201-250=6un 251-300=8un 301-350=10units >350=12un and call PCP with [facility]. Refills: 0. PredniSONE (predniSONE 20 mg oral tablet) 2 tab(s) Oral Daily for 5 Days. Refills: 0. Allergy Info:?? sulfa drugs; amoxicillin Medications Given This Visit Future Orders ?Fecal Occult Blood Immunochemical? Order Date:04/10/23?- Complete on or after?04/10/23 Vital Signs Height 180.3 cm Weight 81.3 kg BMI 25.01 kg/m2 Blood Pressure 112 mm Hg/70 mm Hg Temperature 98.4 DegF Pulse Rate 75 bpm Respiratory Rate 02 Sat Mode of Delivery 96 %/Room air You can now view a summary of your hospital visit from the comfort of your home through a free online portal called [employer]. [employer] is a website that allows you to securely view your medical information including discharge summary, medications and follow-up visits. ??You can alsosend a secure electronic message to your doctor???s office to request appointments, renew medications or just ask a question. You can enroll at [email or web address] or register during your next office [...] primary care provider, you may find a [facility] provider by calling [facility] at [phone]. For information about the plan of care including goals and instructions for your diagnosis, please see the patient education orders section of this document. Patient Education Materials?? The content of this educational material or handout may have been modified, supplemented, or adapted from its original content and format to support your individualized medical care. Prevention Guidelines, Men Ages 50 to 64 Screening tests and vaccines are an important part of managing your health. Health counseling is essential, too. Below are guidelines for these, for men ages 50 to 64. Talk with your healthcare provider to make sure you???re up-to-date on what you need. Screening Who needs it How often Alcohol misuse All men in this age group At routine exams Blood pressure All men in this age group Every 2 years if your blood pressure is less than 120/80 mm Hg; yearly if your systolic blood pressure is 120 to 139 mm Hg, or your diastolic blood pressure reading is 80 to 89 mm Hg Colorectal cancer All men in this age group Flexible sigmoidoscopy every 5 years, or colonoscopy every 10 years, or double- contrast barium enema every 5 years; yearly fecal occult blood test or fecal immunochemical test; or a stool DNA test asoften as your healthcare provider advises; talk with your healthcare provider about which tests arebest for you Depression All men in this age group At routine exams Type 2 diabetes or prediabetes All adults beginning at age 45 and adults without symptoms at any age who are overweight or obese and have 1 or more other risk factors for diabetes At least every 3 years Hepatitis C Men at increased risk for infection ??? talk with your healthcare provider At routine exams High cholesterol or triglycerides All men in this age group At least every 5 years HIV Men at increased risk for infection ??? talk with your healthcare provider At routine exams Lung cancer Adults age 55 to 80 who have smoked Yearly screening in smokers with 30 pack-year history of smoking or who quit within 15 years Obesity All men in this age group At routine exams Prostate cancer Starting at age 45, talk to healthcare provider about risks and benefits of digital rectal exam (MARY CARMEN) and prostate-specific antigen (PSA) screening1 At routine exams Syphilis Men at increased risk for infection ??? talk with your healthcare provider At routine exams Tuberculosis Men at increased risk for infection ??? talk with your healthcare provider Ask your healthcare provider Vision All men in this age group Ask your healthcare provider Vaccine Who needs it How often Chickenpox (varicella) All men in this age group who have no record of this infection or vaccine 2 doses; second dose should be given at least 4 weeks after the first dose Hepatitis A Men at increased risk for infection ??? talk with your healthcare provider 2 doses given at least 6 months apart Hepatitis B Men at increased risk for infection ??? talk with your healthcare provider 3 doses over 6 months; second dose should be given 1 month after the first dose; the third dose should be given at least 2 months after the second dose and at least 4 months after the first dose Haemophilus influenzae??Type B (HIB) Men at increased risk for infection ??? talk with your healthcare provider 1 to 3 doses Influenza (flu) All men in this age group Once a year Measles, mumps, rubella (MMR) Men in this age group through their late 50s who have no record of these infections or vaccines 1 or 2 dose; ask your healthcare provider Meningococcal Men at increased risk for infection ??? talk with your healthcare provider 1 or more doses Pneumococcal conjugate vaccine (PCV13)??and pneumococcal polysaccharide??vaccine??(PPSV23) Men at increased risk for infection ??? talk with your healthcare provider PCV13: 1 dose ages 19 to 65 (protects against 13 types of pneumococcal bacteria) ?? PPSV23: 1 to??2doses through age 64, or 1 dose at 65 or older (protects against 23 types of pneumococcal bacteria) Tetanus/diphtheria/ pertussis (Td/Tdap) booster All men in this age group Td every 10 years, or a one-time dose of Tdap instead of a Td booster after age 18, then Td every 10 years Zoster All men ages 60 and older 1 dose Counseling Who needs it How often Diet and exercise Men who are overweight or obese When diagnosed, and then at routine exams Sexually transmitted infection prevention Men at increased risk for infection ??? talk with your healthcare provider At routine exams Use of daily aspirin Men in this age group at risk for cardiovascular health problems At routine exams Use of tobacco and the health affects it can cause All men in this age group Every visit [address] [place] [address] [facility] ?? [phone] [employer]. [address] [place] [address]. All rights reserved. This information is not intended as a substitute for professional medical care. Always follow your healthcare professional's instructions. Patient Care team information Care Team Personnel Name: Vandana Gibbs RN Position: [facility] RN Member Role: Primary Care Nurse Name: Ginger Pate MD Position: S Physician - Primary Care Member Role: PCP Address: Address: [address] [place] [address]- Care Team Related Persons Name: MARGARET RAMÍREZ Address: home [address] [place] [address]. [place], [place] Name: REINA RAMÍREZ Address: home [address] [place] [id number] Name: LUZ DE LA CRUZ
--- OUTSIDE RECORDS SUMMARY | 2024-03-02 18:42 | XMS_ITS | Continuity of Care Document ---
Author Organization [facility] Adult Address [address] [place] [address]- Care Team Providers Care Lathmaker Name Role Phone Rio ROBISON, Ginger Primary Care Physician [place] [facility] [place]21 [facility] [address] [place] [phone]- Allergies, Adverse Reactions, Alerts Substance Reaction Severity Status amoxicillin Active sulfa drugs Active Immunizations Given and Recorded Vaccine Date Status Refusal Reason influenza virus vaccine, inactivated 1 09/24/19 Gi mitch influenza virus vaccine, inactivated 2 08/06/17 Gi mitch influenza virus vaccine, inactivated 11/02/15 Give n pneumococcal 23-valent vaccine 03/01/15 Given tetanus/diphtheria/pertussis, acel(Tdap) 03/01/15 Given 1Result Comment: [facility] [id number] 2Result Comment: [facility] [id number] Medications albuterol 0.083% inhalation solution 3 mL = 2.5 mg, Inhalation, Every 6 hours, PRN for wheezing, DX COPD, # 60 each, 3 Refills, Maintenance, 10/21/20 16:57:00 EST, Solution, [facility], Partial fill upon patient request if theprescription is for a schedule II opioid drug., 181... Start Date: 10/21/20 Status: Ordered albuterol CFC free 90 mcg/inh inhalation aerosol 2, puffs, Inhalation, 4 times a day, PRN, # 18 Gm, Refills 11, Tot. Refills 11, Maintenance, 01/12/21 15:28:00 EST, Aerosol, Route to Pharmacy Electronically, [id number], [facility], 181, cm, 01/04/21 15:28:00 EST, Height [...] 11 Refills, Maintenance, 01/07/22 15:29:00 EST, Powder, [facility], Partial fill upon patient request if the prescription is for a schedule II opioid drug., 1 puffs Inhalation Daily,x30 days, 181, cm, 09... Start Date: 01/07/22 Stop Date: 01/02/23 Status: Ordered Anoro Ellipta 62.5 mcg-25 mcg/inh inhalation powder 1 puffs, Inhalation, Daily, for 30 days, # 1 each, 11 Refills, Hard Stop 01/07/22 15:29:00 EST, 01/12/21 15:29:00 EST, Powder, [facility], Partial fill upon patient request if [...] Replace Required Details, Route to Pharmacy Electronically, [facility], 181, cm, 02/06/21 11:06:0... Start Date: 06/15/21 Status: Ordered atorvastatin 40 mg oral tablet 1 tablet, By Mouth, Daily, # 90 tablet, 1 Refills, [facility], 181, cm, 08/09/21 14:56:00EDT, Height Start [...] Date: 08/11/21 Status: Ordered COMFORT EZ MIS [id number] COMFORT EZ MIS [id number], See Instructions, # 100 each, Refills 5, Tot. Refills 5, Maintenance, USE TO INJECT INSULIN BID DX E11.9, 02/22/21 11:54:00 EDT, Supply, 181, cm, 02/06/21 11:06:00 EDT, Height Start Date: 02/22/21 Status: Ordered COMFORT EZ MIS [id number] COMFORT EZ MIS [id number], See Instructions, # 100 each, 2 Refills, [...] 10/09/18 15:47:31 EST, Route to Pharmacy Electronically, [id number], [facility]; [id number] Start Date: [...] tablet, 0 Refills, Maintenance, 09/28/21 15:26:00 EST, [facility], 181, cm, 08/09/21 14:56:00 EDT, Height Start Date: 09/28/21 Status: Ordered ibuprofen 600 mg oral tablet 600 mg, 1, tablet, By Mouth, Every 6 hours, PRN, # 120 tablet, Refills 0, Tot. Refills 0, Maintenance, Pain, 04/04/21 16:38:00 EDT, Route to Pharmacy Electronically, [facility], 181, cm, 02/06/21 11:06:00 EDT, Height [...] AT BEDTIME, # 30 mL, 4 Refills, [facility], 181, cm, 08/09/21 14:56:00 EDT, Height Start Date: 11/08/21 Status: Ordered levothyroxine 150 mcg (0.15 mg) oral tablet See Instructions, TAKE 1 TABLET BY MOUTH EVERY DAY, # 30 tablet, 2 Refills, [facility], 181, cm, 08/09/21 14:56:00 EDT, Height [...] tablet, Refills 5, Route to Pharmacy Electronically, [facility], 181, cm, 07/18/21 11:27:00 EDT, Height [...] CALL PCP, # 15 mL, 2 Refills, [facility], 181, cm, 07/18/21 11:27:00 EDT, He... Start Date: 08/01/21 Status: Ordered Pen [place], 30 G x 8 mm BD Ultra [...] 06/08/21 16:19:00 EDT, Route to Pharmacy Electronically, [facility], 181, cm, 02/06/21 11:06:00 EDT, Height [...]
--- OUTSIDE RECORDS SUMMARY | 2024-03-02 18:42 | XMS_ITS | Continuity of Care Document ---
Author Organization [facility] Adult Address [address] [place] [address]- Care Team Providers Care Life Enrichment Manager Name Role Phone Ginger Pate MD Primary Care Physician Encounter [facility] [place](s): 01/04/21 - 01/11/21 [facility] Adult [address] [place] [id number]- Encounter Diagnosis Schizo-affective schizophrenia(Discharge Diagnosis) - 01/04/21 Tobacco abuse(Discharge Diagnosis) - 01/04/21 Dyslipidemia(Discharge Diagnosis) - 01/04/21 Hypothyroidism(Discharge Diagnosis) - 01/04/21 BPH (benign prostatic hyperplasia)(Discharge Diagnosis) - 01/04/21 Onychomycosis(Discharge Diagnosis) - 01/04/21 Type 2 diabetes mellitus with diabetic neuropathy(Discharge Diagnosis) - 01/04/21 COPD (chronic obstructive pulmonary disease)(Discharge Diagnosis) - 01/04/21 Attending Physician: Ginger Pate MD Allergies, Adverse Reactions, Alerts Substance Reaction Severity Status amoxicillin Active sulfa drugs Active Immunizations Given and Recorded Vaccine Date Status Refusal Reason influenza virus vaccine, inactivated 1 09/24/19 Gi mitch influenza virus vaccine, inactivated 2 08/06/17 Gi mitch influenza virus vaccine, inactivated 11/02/15 Give n pneumococcal 23-valent vaccine 03/01/15 Given tetanus/diphtheria/pertussis, acel(Tdap) 03/01/15 Given 1Result Comment: [facility] [id number] 2Result Comment: [facility] [phone] Medications Advair Diskus 250 mcg-50 mcg inhalation powder 1, puffs, Inhalation, Every 12 hours, rinse mouth and throat after use, # 28 each, Refills 6, Tot. Refills 6, Maintenance, 10/21/20 13:08:00 EST, Route to Pharmacy Electronically, NCPDP_[id number], [facility], please hold for when symbicort... Start Date: 10/21/20 Stop Date: 05/19/21 Status: Ordered albuterol 0.083% inhalation solution 3 mL = 2.5 mg, Inhalation, Every 6 hours, PRN for wheezing, DX COPD, # 60 each, 3 Refills, Maintenance, 10/21/20 16:57:00 EST, Solution, [facility], Partial fill upon patient request if [...] 10/31/20 9:30:00 EST, Route to Pharmacy Electronically, [facility], Rx resent from 05/11/19., 181, cm, 10/21/20 11:47:00 EST, Height Start Date: 10/31/20 Status: Ordered atorvastatin 40 mg oral tablet 1 tablet = 40 mg, By Mouth, Daily, # 90 tablet, 1 Refills, Maintenance, 07/26/20 12:07:00 EDT, Tablet, [facility], 181, cm, 12/09/19 15:01:00 EST, Height, [...] 10/09/18 15:47:31 EST, Route to Pharmacy Electronically, [id number], [facility]; [facility] Start Date: [...] tablet, 0 Refills, Maintenance, 10/24/20 10:05:00 EST, [facility], 181, cm, 10/21/20 11:47:00 EST, Height Start Date: 10/24/20 Status: Ordered ibuprofen 600 mg oral tablet 600 mg, 1, tablet, By Mouth, Every 6 hours, PRN, # 120 tablet, Refills 0, Tot. Refills 0, Maintenance, Pain, 01/08/20 15:02:00 EST, Route to Pharmacy Electronically, [facility], 181, cm, 12/09/19 15:01:00 EST, Height, 100.6, kg, 04/07/18 20:... Start Date: 01/08/20 Status: Ordered Incruse Ellipta 62.5 mcg/inh inhalation powder 1 each, Inhalation, Every 24 hours, doses should be taken at least 24 hours apart, # 1 each, 11 Refills, Maintenance, 10/25/20 15:07:00 EST, Powder, [facility], Partial fill upon patient request if [...] 5 Refills, Soft Stop, 10/25/20 9:50:00 EST, [facility], 181, cm, 10/21/20 11:47:00 EST, Height Start Date: 10/25/20 Status: Ordered levothyroxine 150 mcg (0.15 mg) oral tablet 1 tablet = 150 mcg, By Mouth, Daily, # 30 tablet, 5 Refills, Maintenance, 11/08/20 11:44:00 EST, Tablet, [facility], 181, cm, 10/21/20 11:47:00 EST, Height [...] 12/28/20 15:39:00 EST, Route to Pharmacy Electronically, [facility], 181, cm, 10/21/20 11:47:00 EST, Height Start Date: 12/28/20 Status: Ordered metFORMIN 1000 mg oral tablet 1 tablet = 1,000 mg, By Mouth, 2 times a day, # 60 tablet, 5 Refills, Maintenance, 11/01/20 9:36:00EST, [facility], 181, cm, 10/21/20 11:47:00 EST, Height Start Date: 11/01/20 Status: Ordered Nebulizer/Compressor See Instructions, PRN, # 1 each, Maintenance, Wheezing/Shortness of Breath, Use with albuterol solution q6h Dx: COPD (J44.9), 10/21/20 14:33:00 EST, Supply Start Date: 10/21/20 Status: Ordered Pen [place], 30 G x 8 mm BD Ultra [...] 12:55:00 EDT, Aerosol, Route to Pharmacy Electronically, NCPDP_[id number], [facility], 181, cm, 10/21/20 11:47:00 E... Start Date: 03/25/21 Stop Date: 09/21/21 Status: Ordered Prolixin DECANOATE Inj = 25 mg, Intramuscular, Every 21 days, 0 Refills, Maintenance, 01/19/19 14:36:12 EDT Start Date: 01/19/19 Status: Ordered tamsulosin 0.4 mg oral capsule 1, capsule, By Mouth, Daily, # 30 capsule, Refills 11, Tot. Refills 0, Maintenance, 05/09/20 8:55:00 EDT, Route to Pharmacy Electronically, [facility], 181, cm, 12/09/19 15:01:00 EST, Height [...] Dates Health Status Clinical Service Informant COPD (chronic obstructive pulmonary disease) Discharge Diagnosis 01/04/21 Type 2 diabetes mellitus with diabetic neuropathy Discharge Diagnosis 01/04/21 Schizo-affective schizophrenia Discharge Diagnosis 01/04/21 Tobacco abuse Discharge Diagnosis 01/04/21 Dyslipidemia Discharge Diagnosis 01/04/21 Hypothyroidism Discharge Diagnosis 01/04/21 BPH (benign prostatic hyperplasia) Discharge Diagnosis 01/04/21 Onychomycosis Discharge Diagnosis 01/04/21 Vital Signs Most recent to oldest [Reference Range]: 1 Height 181 cm (01/04/21 3:28 PM) Weight 91.7 kg (01/04/21 3:28 PM) Oxygen Saturation [94-100 %] 95 % (01/04/21 3:28 PM) Pulse Rate [55-90 bpm] 83 bpm (01/04/21 3:28 PM) Body Mass Index [18.5-24.99] 27.99 *H* (01/04/21 3:28 PM) Blood Pressure [90-138/55-84 mm Hg] 116/ 70mm Hg (01/04/21 3:28 PM) Blood pressure sites Arm, left (01/04/21 3:28 PM) Weight Obtained Via Standing scale (01/04/21 3:28 PM) Social History Social History Type Response Smoking Status Current every day miguel drummond; Tobacco user in household: Yes; Type: Cigarettes; Tobacco use times per day: 1/2 PPD; entered on: 08/09/16 Sex
--- OUTSIDE RECORDS SUMMARY | 2024-03-02 18:42 | XMS_ITS | Continuity of Care Document ---
Author Organization [facility] Adult Address [address] [place] [address]- Care Team Providers Care Radio Tower Technician Name Role Phone Ginger Pate MD Primary Care Physician Encounter [facility] [place] Date(s): 12/09/19 - 12/16/19 [facility] Adult [address] [place] [address]- [facility] Encounter Diagnosis Type 2 diabetes mellitus with hyperglycemia(Discharge Diagnosis) - 12/09/19 COPD (chronic obstructive pulmonary disease)(Discharge Diagnosis) - 12/09/19 Hypothyroidism(Discharge Diagnosis) - 12/09/19 Dyslipidemia(Discharge Diagnosis) - 12/09/19 Schizo-affective schizophrenia(Discharge Diagnosis) - 12/09/19 ED (erectile dysfunction)(Discharge Diagnosis) - 12/09/19 Attending Physician: Rio ROBISON, Ginger Allergies, Adverse Reactions, Alerts Substance Reaction Severity Status amoxicillin Active sulfa drugs Active Immunizations Given and Recorded Vaccine Date Status Refusal Reason influenza virus vaccine, inactivated 1 09/24/19 Gi mitch influenza virus vaccine, inactivated 2 08/06/17 Gi mitch influenza virus vaccine, inactivated 11/02/15 Give n pneumococcal 23-valent vaccine 03/01/15 Given tetanus/diphtheria/pertussis, acel(Tdap) 03/01/15 Given 1Result Comment: [facility] [id number] 2Result Comment: [facility] [phone] Medications Advair Diskus 250 mcg-50 mcg inhalation powder 1, puffs, Inhalation, Every 12 hours, # 28 each, Refills 2, Tot. Refills 2, Maintenance, 04/10/18 16:19:35 EDT, Route to Pharmacy Electronically, [id number], [facility], please hold [...] 10/28/19 13:33:00 EST, Route to Pharmacy Electronically, [facility], Rx resent from 05/11/19.,181, cm, 09/24/19 11:48:00 EST, Height, 100.6, kg,... Start Date: 10/28/19 Status: Ordered atorvastatin 40 mg oral tablet 1 tablet = 40 mg, By Mouth, Daily, # 30 tablet, 5 Refills, Maintenance, 07/29/19 12:30:13 EDT, Tablet Start Date: 07/29/19 Status: Ordered benztropine 1 mg oral tablet [...] 10/09/18 15:47:31 EST, Route to Pharmacy Electronically, [id number], [facility]; [facility] Start Date: 10/09/18 Status: Ordered Flomax 0.4 mg oral capsule 0.4 mg, 1, capsule, By Mouth, Daily, # 30 capsule, Refills 5, Tot. Refills 5, Maintenance, 208:24:00 EST, Route to Pharmacy Electronically, [facility], 181, cm, 09/24/19 11:48:00 EST, Height, [...] day, # 90 tablet, 1 Refills, Maintenance, 10/28/19 13:45:00 EST, [facility], 181, cm, 09/24/19 11:48:00 EST, Height, 100.6, kg, 04/07/18 20:14:00 EDT, Dry Weight Start Date: 10/28/19 Status: Ordered glipiZIDE 10 mg oral tablet, extended release See Instructions, # 60 tablet, Refills 5 Tot. Refills 5, TAKE 1 TABLET BY MOUTH TWICE DAILY, [facility] Start Date: 09/02/19 Status: Ordered Klonopin 1 mg oral tablet [...] 5 Refills, Soft Stop, 12/09/19 15:39:00 EST, [facility], 181, cm, 12/09/19 15:01:00 EST, Height, 100.6, kg, 05... Start Date: 12/09/19 Status: Ordered levothyroxine 150 mcg (0.15 mg) oral tablet 1 tablet = 150 mcg, By Mouth, Daily, # 30 tablet, 5 Refills, Maintenance, 09/04/19 10:25:33 EDT, Tablet Start Date: 09/04/19 Status: Ordered lithium 450 mg oral tablet, extended release 1 tablet = 450 mg, By Mouth, Daily at bedtime, # 180 tablet, 0 Refills, Maintenance, 12/09/19 15:34:00 EST, ER Tablet Start Date: 12/09/19 Status: Ordered loratadine 10 mg oral tablet 10 mg, 1, tablet, By Mouth, Daily, # 30 tablet, Refills 5, Tot. Refills 5, Maintenance, 11/26/19 20:12:00 EST, Route to Pharmacy Electronically, [facility], 181, cm, 09/24/19 11:48:00 EST, Height, 100.6, kg, 04/07/18 20:14:00 EDT, Dry Weight Start Date: 11/26/19 Status: Ordered metFORMIN 1000 mg oral tablet 1 tablet = 1,000 mg, By Mouth, 2 times a day, # 60 tablet, 5 Refills, Maintenance, 10/28/19 13:33:00 EST, [facility], 181, cm, 09/24/19 11:48:00 EST, Height, 100.6, kg, 04/07/18 20:14:00 EDT, Dry Weight Start Date: 10/28/19 Status: Ordered Pen [place], 30 G x 8 mm BD [...] 07/17/1813:34:55 EDT, Aerosol, Route to Pharmacy Electronically, [id number], [facility] Start Date: 07/17/18 Stop [...] 0 Refills, Maintenance, 12/09/19 15:44:00 EST, Tablet, [facility], 181,cm, 12/09/19 15:01:00 EST, Height, 100.6, [...] Effective Dates Health Status Clinical Service Informant Type 2 diabetes mellitus with hyperglycemia Discharge Diagnosis 12/09/19 COPD (chronic obstructive pulmonary disease) Discharge Diagnosis 12/09/19 Hypothyroidism Discharge Diagnosis 12/09/19 Dyslipidemia Discharge Diagnosis 12/09/19 Schizo-affective schizophrenia Discharge Diagnosis 12/09/19 ED (erectile dysfunction) Discharge Diagnosis 12/09/19 Vital Signs Most recent to oldest [Reference Range]: 1 Height 181 cm (12/09/19 3:01 PM) Weight 93.7 kg (12/09/19 3:01 PM) Body Mass Index [18.5-24.99] 28.6 *H* (12/09/19 3:01 PM) Blood Pressure [90-138/55-84 mm Hg] 104/ 62mm Hg (12/09/19 3:01 PM) Temperature [96.8-100.4 DegF] 97.9 DegF (12/09/19 3:01 PM) Blood pressure sites Arm, left (12/09/19 3:01 PM) Temperature Route Oral (12/09/19 3:01 PM) Social History Social History Type Response Smoking Status Current every day sm bhanu; Tobacco user in household: Yes; Type: Cigarettes; Tobacco use times per day: 1/2 PPD; entered on: 08/09/16 Sex
--- OUTSIDE RECORDS SUMMARY | 2024-03-02 18:42 | XMS_ITS | Continuity of Care Document ---
Author Organization [facility] Adult Address [address] [place] [address]- Care Team Providers Care Pacs Specialist Name Role Phone Ginger Pate MD Primary Care Physician [place] [facility] [place] 04/04/22 [facility] Adult [address] [place] [id number]- Attending Physician: Ginger Pate MD Allergies, Adverse Reactions, Alerts Substance Reaction Severity Status amoxicillin Active sulfa drugs Active Immunizations Given and Recorded Vaccine Date Status Refusal Reason influenza virus vaccine, inactivated 1 09/24/19 Gi mitch influenza virus vaccine, inactivated 2 08/06/17 Gi mitch influenza virus vaccine, inactivated 11/02/15 Give n pneumococcal 23-valent vaccine 03/01/15 Given tetanus/diphtheria/pertussis, acel(Tdap) 03/01/15 Given 1Result Comment: [facility] [id number] 2Result Comment: [facility] [place] [phone] Medications albuterol 0.083% inhalation solution 3 mL = 2.5 mg, Inhalation, Every 6 hours, PRN for wheezing, DX COPD, # 60 each, 3 Refills, Maintenance, 10/21/20 16:57:00 EST, Solution, [facility], Partial fill upon patient request if theprescription is for a schedule II opioid drug., 181... Start Date: 10/21/20 Status: Ordered albuterol CFC free 90 mcg/inh inhalation aerosol 2, puffs, Inhalation, 4 times a day, PRN, # 18 Gm, Refills 11, Tot. Refills 11, Maintenance, 01/12/21 15:28:00 EST, Aerosol, Route to Pharmacy Electronically, NCPDP_[id number], [facility], 181, cm, 01/04/21 15:28:00 EST, Height Start Date: 01/12/21 Stop Date: 01/07/22 Status: Ordered albuterol CFC free 90 mcg/inh inhalation aerosol 2, puffs, Inhalation, 4 times a day, PRN, # 18 Gm, Refills 11, Tot. Refills 11, Maintenance, 01/15/22 11:28:00 EST, Aerosol, Route to Pharmacy Electronically, CTPDP_[id number], [facility], 181, cm, 01/15/22 11:07:00 EST, Height [...] 11 Refills, Maintenance, 01/07/22 15:29:00 EST, Powder, [facility], Partial fill upon patient request if [...] Instructions ReplaceRequired Details, Route to Pharmacy Electronically, [facility], 181, cm, 08/09/21 14:56:00 EDT, Height Start Date: 01/02/22 Status: Ordered atorvastatin 40 mg oral tablet 1 tablet, By Mouth, Daily, # 90 tablet, 1 Refills, [facility], 181, cm, 08/09/21 14:56:00EDT, Height Start [...] Date: 08/11/21 Status: Ordered COMFORT EZ MIS [id number] COMFORT EZ MIS [id number], See Instructions, # 100 each, Refills 5, Tot. Refills 5, Maintenance, USE TO INJECT INSULIN BID DX E11.9, 02/22/21 11:54:00 EDT, Supply, 181, cm, 02/06/21 11:06:00 EDT, Height Start Date: 02/22/21 Status: Ordered COMFORT EZ MIS [id number] COMFORT EZ MIS [id number], See Instructions, # 100 each, 2 Refills, [...] 10/09/18 15:47:31 EST, Route to Pharmacy Electronically, [id number], [facility]; [facility] Start Date: [...] tablet, 0 Refills, Maintenance, 02/01/22 7:20:00 EDT, [facility], 181, cm, 01/15/22 11:07:00 EST, Height Start Date: 02/01/22 Status: Ordered ibuprofen 600 mg oral tablet 600 mg, 1, tablet, By Mouth, Every 6 hours, PRN, # 120 tablet, Refills 0, Tot. Refills 0, Maintenance, Pain, 04/04/21 16:38:00 EDT, Route to Pharmacy Electronically, [facility], 181, cm, 02/06/21 11:06:00 EDT, Height [...] AT BEDTIME, # 30 mL, 4 Refills, [facility], 181, cm, 08/09/21 14:56:00 EDT, Height Start Date: 11/08/21 Status: Ordered levothyroxine 150 mcg (0.15 mg) oral tablet 1 tablet, By Mouth, Daily, # 30 tablet, 5 Refills, [facility], 181, cm, 08/09/21 14:56:00EDT, Height Start [...] tablet, Refills 5, Route to Pharmacy Electronically, [facility], 181, cm, 01/15/22 11:07:00 EST, Height Start Date: 02/01/22 Status: Ordered metFORMIN 1000 mg oral tablet 1 tablet, By Mouth, 2 times a day, # 60 tablet, 5 Refills, [facility], 181, cm, 08/09/21 14:56:00 EDT, Height [...] CALL PCP, # 15 mL, 5 Refills, [facility], 181, cm, 01/15/22 11:07:00 EST, He... Start Date: 03/29/22 Status: Ordered Pen [place], 30 G x 8 mm BD Ultra [...] 06/08/21 16:19:00 EDT, Route to Pharmacy Electronically, [facility], 181, cm, 02/06/21 11:06:00 EDT, Height [...]
--- OUTSIDE RECORDS SUMMARY | 2024-03-02 18:42 | XMS_ITS | Continuity of Care Document ---
Author Organization [facility] Adult Address [address] [place] [address]- Care Team Providers Care Survey Crew Chief Name Role Phone Ginger Pate MD Primary Care Physician Encounter [facility] [place] Date(s): 05/12/22 - 09/09/22 [facility] Adult [address] [place] [id number]- Attending Physician: Ginger Pate MD Allergies, Adverse [...] tetanus-diphtheria toxoids (Td) 02/03/13 Recorded 1Result Comment: [facility] [id number] 2Result Comment: [facility] [phone] Medications albuterol 0.083% inhalation solution 3 mL = 2.5 mg, Inhalation, Every 6 hours, PRN for wheezing, DX COPD, # 60 each, 3 Refills, Maintenance, 10/21/20 16:57:00 EST, Solution, [facility], Partial fill upon patient request if theprescription is for a schedule II opioid drug., 181... Start Date: 10/21/20 Status: Ordered albuterol CFC free 90 mcg/inh inhalation aerosol 2, puffs, Inhalation, 4 times a day, PRN, # 18 Gm, Refills 11, Tot. Refills 11, Maintenance, 01/12/21 15:28:00 EST, Aerosol, Route to Pharmacy Electronically, NCPDP_[id number], [facility], 181, cm, 01/04/21 15:28:00 EST, Height Start Date: 01/12/21 Stop Date: 01/07/22 Status: Ordered albuterol CFC free 90 mcg/inh inhalation aerosol 2, puffs, Inhalation, 4 times a day, PRN, # 18 Gm, Refills 11, Tot. Refills 11, Maintenance, 01/15/22 11:28:00 EST, Aerosol, Route to Pharmacy Electronically, NCPDP_[id number], [facility], 181, cm, 01/15/22 11:07:00 EST, Height [...] each, 10 Refills, Maintenance, 08/01/22 15:16:00 EDT, [facility], 30, INHALE 1 PUFF BY MOUTH [...] Maintenance, 08/01/22 20:31:00EDT, Route to Pharmacy Electronically, [facility], 181, cm, 07/23/22 10:45:00 EDT, Height Start Date: 08/01/22 Status: Ordered atorvastatin 40 mg oral tablet 1 tablet, By Mouth, Daily, # 90 tablet, 1 Refills, [facility], 181, cm, 01/15/22 11:07:00EST, Height Start [...] Date: 08/11/21 Status: Ordered COMFORT EZ MIS [id number] COMFORT EZ MIS [id number], See Instructions, # 100 each, Refills 5, Tot. Refills 5, Maintenance, USE TO INJECT INSULIN BID DX E11.9, 02/22/21 11:54:00 EDT, Supply, 181, cm, 02/06/21 11:06:00 EDT, Height Start Date: 02/22/21 Status: Ordered COMFORT EZ MIS [id number] COMFORT EZ MIS [id number], See Instructions, # 100 each, 2 Refills, [...] 10/09/18 15:47:31 EST, Route to Pharmacy Electronically, [id number], [facility]; [facility] Start Date: [...] Gm, 11 Refills, Maintenance, 07/23/22 11:21:00 EDT, [place], [facility], Partial fill upon patient request if [...] tablet, 1 Refills, Maintenance, 08/31/22 16:25:00 EDT, [facility], 181, cm, 07/23/22 10:45:00 EDT, Height [...] 30 mL, 4 Refills, 07/09/22 15:53:00 EDT, [facility], 181, cm, 07/09/22 14:59:00 EDT, Height Start Date: 07/09/22 Status: Ordered levothyroxine 150 mcg (0.15 mg) oral tablet 1 tablet, By Mouth, Daily, # 90 tablet, 1 Refills, Maintenance, 08/01/22 20:32:00 EDT, [facility], 181, cm, 07/23/22 10:45:00 EDT, Height [...] tablet, Refills 5, Route to Pharmacy Electronically, [facility], 181, cm, 01/15/22 11:07:00 EST, Height Start Date: 02/01/22 Status: Ordered metFORMIN 1000 mg oral tablet 1 tablet, By Mouth, 2 times a day, # 60 tablet, 5 Refills, [facility], 181, cm, 01/15/22 11:07:00 EST, Height [...] CALL PCP, # 15 mL, 5 Refills, [facility], 181, cm, 01/15/22 11:07:00 EST, He... Start Date: 03/29/22 Status: Ordered Pen [place], 30 G x 8 mm BD Ultra [...] 07/09/22 15:46:00 EDT, Route to Pharmacy Electronically, [facility], 181, cm, 07/09/22 14:59:00 EDT, Height [...] Sex Patient Care team information Personnel Name: Rio ROBISON, Ginger Address: Address: [address] [address]
--- OUTSIDE RECORDS SUMMARY | 2024-03-02 18:42 | XMS_ITS | Continuity of Care Document ---
Author Organization [facility] Adult Address [address] [place] [address]- Care Team Providers Care Employee Operations Examiner Name Role Phone Rio ROBISON, Ginger Primary Care Physician Encounter [facility] [place] [facility] Date(s): 06/07/21 - 07/07/[address] [facility] Adult [address] [place] [address]- Allergies, Adverse Reactions, Alerts Substance Reaction Severity Status amoxicillin Active sulfa drugs Active Immunizations Given and Recorded Vaccine Date Status Refusal Reason influenza virus vaccine, inactivated 1 09/24/19 Gi mitch influenza virus vaccine, inactivated 2 08/06/17 Gi mitch influenza virus vaccine, inactivated 11/02/15 Give n pneumococcal 23-valent vaccine 03/01/15 Given tetanus/diphtheria/pertussis, acel(Tdap) 03/01/15 Given 1Result Comment: [facility] [id number] 2Result Comment: [facility] [id number] Medications albuterol 0.083% inhalation solution 3 mL = 2.5 mg, Inhalation, Every 6 hours, PRN for wheezing, DX COPD, # 60 each, 3 Refills, Maintenance, 10/21/20 16:57:00 EST, Solution, [facility], Partial fill upon patient request if theprescription is for a schedule II opioid drug., 181... Start Date: 10/21/20 Status: Ordered albuterol CFC free 90 mcg/inh inhalation aerosol 2, puffs, Inhalation, 4 times a day, PRN, # 18 Gm, Refills 11, Tot. Refills 11, Maintenance, 01/12/21 15:28:00 EST, Aerosol, Route to Pharmacy Electronically, NCPDP_[id number], [facility], 181, cm, 01/04/21 15:28:00 EST, Height [...] 11 Refills, Maintenance, 01/12/21 15:29:00 EST, Powder, [facility], Partial fill upon patient request if [...] Replace Required Details, Route to Pharmacy Electronically, [facility], 181, cm, 02/06/21 11:06:0... Start Date: 06/15/21 Status: Ordered atorvastatin 40 mg oral tablet 1 tablet = 40 mg, By Mouth, Daily, # 90 tablet, 1 Refills, Maintenance, 03/07/21 13:56:00 EDT, Tablet, [facility], 181, cm, 02/06/21 11:06:00 EDT, Height [...] Date: 12/09/14 Status: Ordered COMFORT EZ MIS [id number] COMFORT EZ MIS [id number], See Instructions, # 100 each, Refills 5, [...] 10/09/18 15:47:31 EST, Route to Pharmacy Electronically, [id number], DENNISE Ure[facility]; [facility] Start Date: [...] DX E10.9, 07/05/20 10:44:00 EDT, Compound, 181, yoon, 12/09/19 15:01:00 EST, Height Start Date: 07/05/20 Status: Ordered gabapentin 600 mg oral tablet 1 tablet, By Mouth, 3 times a day, # 270 tablet, 0 Refills, Maintenance, 05/31/21 16:25:00 EDT, [facility], 181, cm, 02/06/21 11:06:00 EDT, Height Start Date: 05/31/21 Status: Ordered ibuprofen 600 mg oral tablet 600 mg, 1, tablet, By Mouth, Every 6 hours, PRN, # 120 tablet, Refills 0, Tot. Refills 0, Maintenance, Pain, 04/04/21 16:38:00 EDT, Route to Pharmacy Electronically, [facility], 181, yoon, 02/06/21 11:06:00 EDT, Height Start Date: 04/04/21 Status: Ordered insulin lispro 100 u/ml subcutaneous injection See Instructions, SLIDING SCALE glucose insulin 110-150=0units 151-200=2un 201- 250=6un 251-300=8un 301-350=10units >350=12un and call PCP with BREAKFAST, LUNCH, AND DINNER, # 15 mL, 0 Refills, Maintenance, 06/27/21 15:30:00 EDT, [place]... Start Date: 06/27/21 Status: Ordered Klonopin 1 [...] 5 Refills, Soft Stop, 10/25/20 9:50:00 EST, [facility], 181, cm, 10/21/20 11:47:00 EST, Height Start Date: 10/25/20 Status: Ordered levothyroxine 150 mcg (0.15 mg) oral tablet 1 tablet = 150 mcg, By Mouth, Daily, # 30 tablet, 2 Refills, Maintenance, 06/07/21 11:27:00 EDT, Tablet, [facility], 181, cm, 02/06/21 11:06:00 EDT, Height [...] 12/28/20 15:39:00 EST, Route to Pharmacy Electronically, [facility], 181, cm, 10/21/20 11:47:00 EST, Height Start Date: 12/28/20 Status: Ordered metFORMIN 1000 mg oral tablet 1 tablet = 1,000 mg, By Mouth, 2 times a day, # 60 tablet, 5 Refills, Maintenance, 04/27/21 11:14:00 EDT, [facility], 181, cm, 02/06/21 11:06:00 EDT, Height Start Date: 04/27/21 Status: Ordered Nebulizer/Compressor See Instructions, PRN, # 1 each, Maintenance, Wheezing/Shortness of Breath, Use with albuterol solution q6h Dx: COPD (J44.9), 10/21/20 14:33:00 EST, Supply Start Date: 10/21/20 Status: Ordered Pen [place], 30 G x 8 mm BD Ultra [...] 06/08/21 16:19:00 EDT, Route to Pharmacy Electronically, [facility], 181, cm, 02/06/21 11:06:00 EDT, Height [...]
--- OUTSIDE RECORDS SUMMARY | 2024-03-02 18:42 | XMS_ITS | Continuity of Care Document ---
Author Organization [facility] Address [address] [place] [address]- Care Team Providers Care Kennel Worker Name Role Phone Rio ROBISON, Ginger Primary Care Physician Encounter [facility] [place] Date(s): 02/21/22 - 03/23/22 [facility] [address] [place] [address]- Allergies, Adverse Reactions, Alerts Substance Reaction Severity Status amoxicillin Active sulfa drugs Active Immunizations Given and Recorded Vaccine Date Status Refusal Reason influenza virus vaccine, inactivated 1 09/24/19 Gi mitch influenza virus vaccine, inactivated 2 08/06/17 Gi mitch influenza virus vaccine, inactivated 11/02/15 Give n pneumococcal 23-valent vaccine 03/01/15 Given tetanus/diphtheria/pertussis, acel(Tdap) 03/01/15 Given 1Result Comment: [facility] [id number] 2Result Comment: [facility] [id number] Medications albuterol 0.083% inhalation solution 3 mL = 2.5 mg, Inhalation, Every 6 hours, PRN for wheezing, DX COPD, # 60 each, 3 Refills, Maintenance, 10/21/20 16:57:00 EST, Solution, [facility], Partial fill upon patient request if theprescription is for a schedule II opioid drug., 181... Start Date: 10/21/20 Status: Ordered albuterol CFC free 90 mcg/inh inhalation aerosol 2, puffs, Inhalation, 4 times a day, PRN, # 18 Gm, Refills 11, Tot. Refills 11, Maintenance, 01/12/21 15:28:00 EST, Aerosol, Route to Pharmacy Electronically, NCPDP_[id number], [facility], 181, cm, 01/04/21 15:28:00 EST, Height Start Date: 01/12/21 Stop Date: 01/07/22 Status: Ordered albuterol CFC free 90 mcg/inh inhalation aerosol 2, puffs, Inhalation, 4 times a day, PRN, # 18 Gm, Refills 11, Tot. Refills 11, Maintenance, 01/15/22 11:28:00 EST, Aerosol, Route to Pharmacy Electronically, NCPDP_[id number], [facility], 181, cm, 01/15/22 11:07:00 EST, Height [...] 11 Refills, Maintenance, 01/07/22 15:29:00 EST, Powder, [facility], Partial fill upon patient request if [...] Instructions ReplaceRequired Details, Route to Pharmacy Electronically, [facility], 181, cm, 08/09/21 14:56:00 EDT, Height Start Date: 01/02/22 Status: Ordered atorvastatin 40 mg oral tablet 1 tablet, By Mouth, Daily, # 90 tablet, 1 Refills, [facility], 181, cm, 08/09/21 14:56:00EDT, Height Start [...] Date: 08/11/21 Status: Ordered COMFORT EZ MIS [id number] COMFORT EZ MIS [id number], See Instructions, # 100 each, Refills 5, Tot. Refills 5, Maintenance, USE TO INJECT INSULIN BID DX E11.9, 02/22/21 11:54:00 EDT, Supply, 181, cm, 02/06/21 11:06:00 EDT, Height Start Date: 02/22/21 Status: Ordered COMFORT EZ MIS [id number] COMFORT EZ MIS [id number], See Instructions, # 100 each, 2 Refills, [...] 10/09/18 15:47:31 EST, Route to Pharmacy Electronically, [id number], [facility]re[facility]; [facility] Start Date: [...] tablet, 0 Refills, Maintenance, 02/01/22 7:20:00 EDT, [facility], 181, cm, 01/15/22 11:07:00 EST, Height Start Date: 02/01/22 Status: Ordered ibuprofen 600 mg oral tablet 600 mg, 1, tablet, By Mouth, Every 6 hours, PRN, # 120 tablet, Refills 0, Tot. Refills 0, Maintenance, Pain, 04/04/21 16:38:00 EDT, Route to Pharmacy Electronically, [facility], 181, cm, 02/06/21 11:06:00 EDT, Height [...] AT BEDTIME, # 30 mL, 4 Refills, [facility], 181, cm, 08/09/21 14:56:00 EDT, Height Start Date: 11/08/21 Status: Ordered levothyroxine 150 mcg (0.15 mg) oral tablet 1 tablet, By Mouth, Daily, # 30 tablet, 5 Refills, [facility], 181, cm, 08/09/21 14:56:00EDT, Height Start [...] tablet, Refills 5, Route to Pharmacy Electronically, [facility], 181, cm, 01/15/22 11:07:00 EST, Height Start Date: 02/01/22 Status: Ordered metFORMIN 1000 mg oral tablet 1 tablet, By Mouth, 2 times a day, # 60 tablet, 5 Refills, [facility], 181, cm, 08/09/21 14:56:00 EDT, Height [...] 15 mL, 2 Refills, 12/20/21 13:42:00 EST, [facility], 181, cm, 09... Start Date: 12/20/21 Status: Ordered Pen [place], 30 G x 8 mm BD Ultra [...] 06/08/21 16:19:00 EDT, Route to Pharmacy Electronically, [facility], 181, cm, 02/06/21 11:06:00 EDT, Height [...]
--- OUTSIDE RECORDS SUMMARY | 2024-03-02 18:42 | XMS_ITS | Continuity of Care Document ---
Author Organization [facility] Adult Address [address] [place] [address]- Care Team Providers Care Counter Manager Name Role Phone Rio ROBISON, Ginger Primary Care Physician Encounter [facility] Date(s): 09/24/23 - 10/24/23 [facility] Adult [address] [place] [id number]- Allergies, Adverse Reactions, Alerts Substance Reaction Severity [...] toxoids (Td) 02/03/13 Recorded 1Result Comment: [facility] [id number] 2Result Comment: [facility] [id number] Medications albuterol 0.083% inhalation solution 3 mL = 2.5 mg, Inhalation, Every 6 hours, PRN for wheezing, DX COPD, # 60 each, 3 Refills, Maintenance, 10/21/20 16:57:00 EST, Solution, [facility], Partial fill upon patient request if theprescription is for a schedule II opioid drug., 181... Start Date: 10/21/20 Status: Ordered albuterol CFC free 90 mcg/inh inhalation aerosol 2, puffs, Inhalation, 4 times a day, PRN, # 18 Gm, Refills 11, Tot. Refills 11, Maintenance, 01/02/23 14:27:00 EST, Aerosol, Route to Pharmacy Electronically, NCPDP_[id number], [facility], 181, cm, 01/02/23 13:54:00 EST, Height [...] 09/04/23 13:27:00 EDT, Route to Pharmacy Electronically, [facility], 183, cm, 06/27/23 10:36:00 EDT, Height Start Date: 09/04/23 Stop Date: 03/02/24 Status: Ordered atorvastatin 40 mg oral tablet 1 tablet = 40 mg, By Mouth, Daily, # 90 tablet, 2 Refills, Maintenance, 09/19/23 8:50:00 EST, [facility], 183, cm, 09/10/23 14:55:00 EDT, Height [...] Date: 06/27/23 Status: Ordered COMFORT EZ MIS [id number] COMFORT EZ MIS [id number], See Instructions, # 100 each, Refills 5, Tot. Refills 5, Maintenance, USE TO INJECT INSULIN BID DX E11.9, 02/22/21 11:54:00 EDT, Supply, 181, cm, 02/06/21 11:06:00 EDT, Height Start Date: 02/22/21 Status: Ordered COMFORT EZ MIS [id number] COMFORT EZ MIS [id number], See Instructions, # 100 each, 2 Refills, [...] Gm, 11 Refills, Maintenance, 07/23/22 11:21:00 EDT, [place], [facility], Partial fill upon patient request if the prescription is for a schedule II opioid drug., 1 sprays Nares, Both 2 times a day, 18... Start Date: 07/23/22 Status: Ordered fluticasone/umeclidinium/vilanterol 100 mcg-62.5 mcg-25 mcg/inh inhalation powder 1 puffs, Inhalation, Daily, # 1 each, 11 Refills, Maintenance, 01/02/23 14:26:00 EST, [facility], Partial fill upon patient request if [...] tablet, 1 Refills, Maintenance, 03/28/23 16:39:00 EDT, [facility], 181, cm, 01/02/23 13:54:00 EST, Height Start Date: 03/28/23 Status: Ordered Konsyl 100% oral powder for reconstitution = 7.5 Gm, By Mouth, 3 times a day, # 500 Gm, 0 Refills, Maintenance, 09/10/23 15:26:00 EDT, REC Powder, [facility], Partial fill upon patient request if the prescription is for a schedule II opioid drug., 183, cm, 09/10/23 14:55:00 EDT, Height Start Date: 09/10/23 Status: Ordered Levemir FlexTouch 100 units/mL subcutaneous solution See Instructions, INJECT 45 UNITS SUBCUTANEOUSLY EVERY MORNING AND INJECT 35 UNITS SUBCUTANEOUSLY EVERY NIGHT AT BEDTIME, # 30 mL, 3 Refills, Maintenance, 09/25/23 8:40:00 EST, [facility], 183, cm, 09/10/23 14:55:00 EDT, Height Start Date: 09/25/23 Status: Ordered levothyroxine 150 mcg (0.15 mg) oral tablet 1 tablet, By Mouth, Daily, # 90 tablet, 2 Refills, Maintenance, 02/27/23 11:54:00 EDT, [facility], 181, cm, 01/02/23 13:54:00 EST, Height [...] 03/15/23 9:56:00 EDT, Route to Pharmacy Electronically, [facility], 181, cm, 01/02/23 13:54:00 EST, Height Start Date: 03/15/23 Status: Ordered metFORMIN 1000 mg oral tablet 1 tablet, By Mouth, 2 times a day, # 60 tablet, 5 Refills, Maintenance, 05/30/23 11:36:00 EDT, [facility], 180.3, cm, 04/10/23 15:18:00 EDT, Height [...] 15 mL, 5 Refills, 12/27/22 14:29:00 EST, [facility], 181, cm, 09... Start Date: 12/27/22 Status: Ordered PEN NEEDLES [id number] PEN NEEDLES [id number], See Instructions, # 200 each, Refills 5, [...] Replace Required Details, Route to Pharmacy Electronically, [facility], 180.3, cm, 04/10/23 15:18:... Start Date: [...] Team Personnel Name: Vandana Gibbs RN Position: [facility] RN Member Role: Primary Care Nurse Name: Ginger Pate MD Position: [facility] Physician - Primary Care Member Role: PCP Address: Address: [address] [place] [address]- Care Team Related Persons Name: MARGARET RAMÍREZ Address: home [address] [place] [address]. [place] [address] Name: REINA RAMÍREZ Address: home [address] [place] [id number] Name: LUZ DE LA CRUZ
[2024-03-02 18:45] VITALS: BP 116/55; PULSE 63; RESP 18; TEMP 36.5; O2SAT 100
--- NOTE | 2024-03-02 18:55 | PC.NURSE ---
Patient arrived to unit approx 1845. Signed conditional voluntary for admission. Skin check completed by RN JUSTYNA and MARI. Medical history includes TBI, Small Bowel resection with 18 kelli. Debridement and excision of callous on great right toe, COPD, Hyperlipidemia, hypothyroid. Nursing assessment to be completed.
[2024-03-02 19:05] VITALS: BMI 21.1
--- NOTE | 2024-03-02 19:07 | PC.NURSE ---
ABD dressing due to gastric surgery changed on 03/02/24 by [facility], clean and intact. Great R toe dressing noted, clean and intact. Bruising on outer aspect of R buttocks, pt reports from laying in one position for too long. Feet dry and calloused, overgrown toe nails noted bilaterally
--- NOTE | 2024-03-02 19:17 | HO.PM.IMCN ---
History of Present Illness Data of Consult Service Date: 03/02/24 Requesting physician: Yu Childers Primary Care Provider: Junaid Desir MD HPI Reason for consult: admission H&P 58-year-old male with history of schizophrenia, insulin-dependent type 2 diabetes, hypothyroidism, asthma/COPD overlap, hyperlipidemia admitted to adult Psychiatry with consult placed to hospitalist service for medical H&P from [facility]. While in the ED hematology studies showed a stable normocytic anemia with H/H 8.3/28.9% and mild thrombocytosis. Renal function baseline, electrolyte levels normal. While in the ED he underwent debridement of callus/ulcer of the plantar surface right great toe. He states he had had an ulcer on the plantar surface of the toe for about 7 days but denies any fevers, chills, purulent drainage or pain. He also was recently admitted to [facility] [place] 02/14-02/25 due to high-grade small-bowel obstruction with partial twisting of the mesentery with moderate free fluid. He subsequently underwent laparotomy with resection of about 220 cm small bladder with reanastomosis performed on 02/15. He reports he has been moving his bowels without any difficulty and denies any rectal bleeding. He does have appetite and is tolerating diet. He currently has [address] which were due to be removed in 10-14 days (today is day 15). He has no other complaints at this time. Review of Systems Review of Systems: General: No fevers, malaise, unintentional weight loss HEENT: No blurred vision, diplopia. No sore throat, nasal congestion, rhinorrhea, sinus pain, ear pain Cardiovascular: No chest pain, palpitations, or leg edema Respiratory: No shortness of breath, wheezing, cough GI: No abdominal pain, nausea, vomiting, diarrhea, constipation, melena, hematochezia : No dysuria, hematuria, increased urinary frequency, decreased urinary output MSK: No myalgia, back pain Neuro: No headaches, weakness, paresthesias Skin: No rashes. +Ulcer R great toe PMFSH Medical History Hypothyroidism Diabetes mellitus type 2 in nonobese Hyperlipidemia Personal history of nicotine dependence Rash Loculated pleural effusion (~10/2020) Asbestos-induced pleural plaque Traumatic brain injury Schizophrenia HTN (hypertension) COPD (chronic obstructive pulmonary disease) Asthma Social History Household Members: Other Household Members Other:: residential Housing: Other Housing Other:: detention Do you presently have visiting nurse or other home services: No Alcohol intake: never Comment: 1:1 sitter at bedside. Patient Tobacco Use Status: Tobacco use Unknown Cigarette Packs Per Day: 1.5 Substance Use Type: Marijuana Advance Directives: No Advance Directives Information Provided: No service: No Current occupational status: disabled Meds Allergies Allergy/AdvReac Type Severity Reaction Status Date / Time amoxicillin [AMOXICILLIN] Allergy Intermediate SKIN RASH Verified 02/15/24 12:34 egg [EGGS] Allergy Intermediate HIVES, Verified 02/15/24 12:34 VOMITING Penicillins [PENICILLINS] Allergy Intermediate SKIN RASH Verified 02/15/24 12:34 Sulfa (Sulfonamide Allergy Intermediate SKIN RASH Verified 02/15/24 12:34 Antibiotics) [SULFA (SULFONAMIDE ANTIBIOTICS)] trimethoprim [TRIMETHOPRIM] Allergy Intermediate SKIN RASH Verified 02/15/24 12:34 penicillin V Allergy Unknown Unknown Verified 02/15/24 12:34 haloperidol [From Haldol] Allergy Unknown Verified 02/15/24 12:34 Latex, Natural Rubber Allergy Unknown Verified 02/15/24 12:34 methylprednisolone Allergy Unknown Verified 02/15/24 12:34 [From Solu-Medrol] penicillin Allergy Unknown Unknown Uncoded 10/10/20 14:35 sultamicillin Allergy Unknown Unknown Uncoded 10/10/20 14:35 trimethoprim Allergy Unknown Unknown Uncoded 10/10/20 14:35 Active Medications: Current Medications Acetaminophen (Acetaminophen 325 Mg Tablet) 650 mg PO Q6H PRN PRN Reason: Headache/Pain Mild Scale (1-3) Al Hydroxide/Mg Hydroxide (Magnesium Hydrox/Alum Hydrox 30 Ml Oral.Susp) 30 ml PO Q6H PRN PRN Reason: Heartburn/Nausea Hydroxyzine HCl (Hydroxyzine Hcl 25 Mg Tablet) 25 mg PO Q6H PRN PRN Reason: Anxiety Magnesium Hydroxide (Milk Of Magnesia 30 Ml Oral.Susp) 30 ml PO DAILY PRN PRN Reason: Constipation Trazodone HCl (Trazodone Hcl 50 Mg Tablet) 50 mg PO BEDTIME MRX1 PRN PRN Reason: Insomnia Home Medications ?Medication ?Instructions ?Recorded ?Confirmed ?Last Taken ?Type albuterol sulfate 90 mcg/actuation 1 puff inhalation Q6H PRN 10/10/20 02/15/24 Unknown History aerosol inhaler (Ventolin HFA) Shortness Of Breath atorvastatin 40 mg tablet 40 mg PO BEDTIME 10/10/20 02/15/24 Unknown History clozapine 100 mg tablet 200 mg PO BEDTIME 10/10/20 02/15/24 02/14/24 History clozapine 25 mg tablet 75 mg PO DAILY 10/10/20 02/15/24 02/14/24 History gabapentin 600 mg tablet 1 tab PO TID 10/10/20 02/15/24 Unknown History levothyroxine 150 mcg tablet 1 tab PO DAILY@0600 10/10/20 02/15/24 Unknown History lithium carbonate 450 mg 450 mg PO BID 10/10/20 02/15/24 Unknown History tablet,extended release metformin 1,000 mg tablet 1 tab PO BIDWM 10/10/20 02/15/24 Unknown History tamsulosin 0.4 mg capsule 1 cap PO BEDTIME 10/10/20 02/15/24 Unknown History ibuprofen 600 mg tablet 600 mg PO Q6H PRN Pain 10/20/20 02/15/24 Unknown History loratadine 10 mg tablet 10 mg PO DAILY 10/20/20 02/15/24 Unknown History dextran 70-hypromellose (PF) 0.1 1 drp ophthalmic (eye) DAILY 02/15/24 02/15/24 Unknown History %-0.3 % eye drops in a dropperette (Artificial Tears (PF)) dextran 70-hypromellose (PF) 0.1 1 drp ophthalmic (eye) DAILY PRN 02/15/24 02/15/24 Unknown History %-0.3 % eye drops in a dropperette Dry Eyes (Artificial Tears (PF)) fluphenazine HCl 1 mg tablet 1 mg PO BEDTIME 02/15/24 02/15/24 Unknown History fluticasone fur. 100 mcg-umeclid 1 ea inhalation DAILY 02/15/24 02/15/24 Unknown History 62.5 mcg-vilant 25 mcg inhalat.powder (Trelegy Ellipta) fluticasone propionate 50 1 spray intranasal DAILY 02/15/24 02/15/24 Unknown History mcg/actuation nasal spray,suspension (Flonase Allergy Relief) insulin glargine 100 unit/mL (3 30 unit subcut BEDTIME 02/15/24 02/15/24 Unknown History mL) subcutaneous pen (Basaglar KwikPen U-100 Insulin) Physical Exam Vital Signs and Narrative: Vital Signs: Last Vital Signs Temp 97.7 F 03/02/24 18:45 Pulse 63 03/02/24 18:45 Resp 18 03/02/24 18:45 BP 116/55 L 03/02/24 18:45 Pulse Ox 100 03/02/24 18:45 O2 Del Method Room Air 03/02/24 18:45 BMI result Body Mass Index 21.1 Constitutional - Awake and Alert, No apparent distress Eyes - PERRLA, EOMI Cardiovascular - S1S2, RRR, No edema Respiratory - Normal lung expansion, Normal respiratory effort, No respiratory distress, CTA bilaterally Gastrointestinal - NT / ND; +BS; No rebound or guarding - No CVA tenderness Extremities - no calf tenderness bilaterally, no swelling Musculoskeletal - Normal inspection, normal ROM Skin - Warm/Dry. 18 post op kelli midline abd without any wound dehiscence, surrounding erythema, warmth, or purulent drainage. Callous plantar surface R great toe s/p debridement without surrounding erythema, wamrth, or purulent drainage. Neurological - Alert & oriented x3, CN II-XII in tact, 5/5 strength BUE and BLE Psychological - Appropriate affect Assessment and Plan (1) Routine medical exam: Status: Acute Plan 58-year-old male with history of schizophrenia, insulin-dependent type 2 diabetes, hypothyroidism, asthma/COPD overlap, hyperlipidemia admitted to adult Psychiatry with consult placed to hospitalist service for medical H&P from [facility]. 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 # insulin-dependent type 2 diabetes -continue basal insulin -POC glucose, recommend diabetic diet -continue SSI # hypothyroidism -continue Synthroid # protein calorie malnutrition -recommend nutrition consult #HLD -statin Thank you for allowing me to participate in this consult. Signing off at this time. Please do not hesitate to call for further questions or for any acute medical issues
[2024-03-02 20:25] VITALS: BP 115/57; PULSE 71; RESP 18; TEMP 36.6; O2SAT 94
[2024-03-02 23:42] LABS: Glucose, Whole Blood 191 mg/dL (60-115)
[2024-03-02 23:42] LABS: Glucose, Whole Blood 57 mg/dL (60-115)
[2024-03-02] MEDS: Lithium Carbonate 300 MG TABLET 450 MG PO (23:54)
[2024-03-02] MEDS: Doxycycline Monohydrate 100 MG CAPSULE PO (23:55)
[2024-03-02] MEDS: hydrOXYzine HCL 25 MG TABLET PO (23:55)
[2024-03-02] MEDS: traZODone HCL 50 MG TABLET PO (23:55)
[2024-03-02] MEDS: fluPHENAZine HCl 1 MG TABLET PO (23:57)
[2024-03-02] MEDS: Insulin Glargine,Hum.rec.anlog 100 UNIT/ML 10 ML VIAL 30 UNIT SUBCUT (23:59)
[2024-03-03] MEDS: Atorvastatin Calcium 40 MG TABLET PO ×2 (00:04→20:08)
[2024-03-03] MEDS: cloZAPine 25 MG TABLET PO (00:05)
[2024-03-03] MEDS: traZODone HCL 50 MG TABLET PO (03:00)
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
--- NOTE | 2024-03-03 05:00 | PC.NURSE ---
RE: POC 03/02 @ 8244- Initial POC result of 57 inaccurate as control solution inadvertently used. Pt's correct POC was 191.
[2024-03-03 08:00] VITALS: BP 86/40; PULSE 69; RESP 14; TEMP 37.3; O2SAT 94
[2024-03-03 08:24] LABS: Glucose, Whole Blood 129 mg/dL (60-115)
[2024-03-03 09:00] VITALS: BP 99/50; PULSE 68; O2SAT 93
[2024-03-03] MEDS: Fluticasone Propionate Nasal 16 GM SPRAY 1 SPRAY NOSTRIL-B (09:00)
[2024-03-03] MEDS: Loratadine 10 MG TABLET PO (09:03)
[2024-03-03] MEDS: Acetaminophen 325 MG TABLET 650 MG PO ×2 (09:09→19:05)
[2024-03-03] MEDS: Lithium Carbonate 300 MG TABLET 450 MG PO (09:13)
--- NOTE | 2024-03-03 09:29 | PC.NURSE ---
I called and spoke to [facility] staff. I requested pt's teeth be brought to the unit and that the MARs get faxed to the unit. senior living staff agreed to complete these tasks.
[2024-03-03] MEDS: Nicotine Polacrilex Lozenge 2 MG LOZENGE BUCCAL (10:45)
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
[2024-03-03] MEDS: Doxycycline Monohydrate 100 MG CAPSULE PO ×2 (11:26→23:05)
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
[2024-03-03] MEDS: Lidocaine 4 % Patch ADH..PATCH 1 PATCH TRANSDERMA (12:21)
[2024-03-03 12:54] LABS: Glucose, Whole Blood 133 mg/dL (60-115)
--- NOTE | 2024-03-03 13:59 | HO.WOUND ---
Wound Consult: Initial 58yr old? Male admitted to [facility] on 03/02/24 to the Inpatient Behavioral Health Unit - See progress notes and H&P for detailed history.? Recent Inpatient [facility] admission see H&P for details. Wound consult follow up for Right Great Toe wound s/p debridement in ED. Patient agreeable to assessment and photo documentation.? Patient reports neuropathy and reports mild tenderness today. No photo taken to day. Right Great Toe Etiology: Diabetic Foot Wound??Present on Admission Measurements: see charting for detailed measurement Wound Bed: Thick callused tissue trapping drainage macerated edges and edges lifting - removed with gentle cleansing Drainage / Odor: Mild odor noted prior to cleansing - no odor noted after cleansing Edges: ? irregular and nonadherent [place] wound: Macerated Pain: mild pain tenderness reported Goals of Treatment: ? Durafiber AG packing will continue to follow Recommendations: 1. Turn and Reposition every 2 hours and as needed for patient comfort.? Use pillows or wedges to support off loading positions. 2. Off Load all bony prominences with use of pillows and heel boots if needed.? Apply Preventative foams where needed. ? 3. Monitor for incontinence and moisture control, use barrier creams when needed for prevention and treatment. 4. Provide adequate and supplemental nutrition.? 5. Continue low air loss mattress. 6. When applicable maintain blood glucose levels per Providers order. 7. Right Great Toe - Cleanse and irrigate with NS pat dry. Lightly pack with Durafiber AG be sure to leave wick for easy removal. Cover with dry gauze ABD pad and gauze wrap. Change every 3 days and PRN. Re-consult wound care Nurse for wound deterioration or wound changes.
[2024-03-03] MEDS: Levothyroxine Sodium 150 MCG TABLET PO (14:44)
[2024-03-03] MEDS: Gabapentin 300 MG CAPSULE PO ×2 (14:44→20:08)
[2024-03-03 17:41] LABS: Glucose, Whole Blood 126 mg/dL (60-115)
[2024-03-03] MEDS: metFORMIN HCl 500 MG TABLET PO (17:41)
[2024-03-03 20:00] VITALS: BP 113/59; PULSE 65; RESP 106; TEMP 36.8; O2SAT 100
[2024-03-03 20:03] LABS: Glucose, Whole Blood 182 mg/dL (60-115)
[2024-03-03] MEDS: Insulin Lispro 100 UNIT/ML 3 ML VIAL SUBCUT (20:07)
[2024-03-03] MEDS: Insulin Glargine,Hum.rec.anlog 100 UNIT/ML 10 ML VIAL 30 UNIT SUBCUT (20:07)
[2024-03-03] MEDS: cloZAPine 25 MG TABLET 50 MG PO (20:08)
[2024-03-03] MEDS: Lithium Carbonate ER 450 MG TABLET.ER PO (20:08)
[2024-03-03] MEDS: Tamsulosin HCL 0.4 MG CAPSULE PO (20:08)
[2024-03-03] MEDS: fluPHENAZine HCl 1 MG TABLET PO (20:09)
[2024-03-04] MEDS: Levothyroxine Sodium 150 MCG TABLET PO (06:35)
[2024-03-04 07:48] VITALS: BP 95/50; PULSE 67; RESP 14; TEMP 37.1; O2SAT 95
[2024-03-04 08:10] LABS: Glucose, Whole Blood 55 mg/dL (60-115)
[2024-03-04 08:42] LABS: Glucose, Whole Blood 106 mg/dL (60-115)
--- NOTE | 2024-03-04 08:42 | PC.NURSE ---
POC 805: 55mg/dl. Pt instructed to drink 8oz of cranberry juice, per protocol. He denied hypoglycemic s/sx. Upon recheck, POC: 106. No insulin coverage per protocol.
[2024-03-04 08:45] LABS: Neut%MD 67.9 %; Neutrophils Absolute Auto 6.6 x10*3/uL (2.0-8.3); WBCANC 9.8 X10*3/uL; White Blood Count 9.6 X10*3/uL (4.8-10.8)
[2024-03-04] MEDS: Lithium Carbonate ER 450 MG TABLET.ER PO ×2 (08:47→20:32)
[2024-03-04] MEDS: metFORMIN HCl 500 MG TABLET PO ×2 (08:47→17:27)
[2024-03-04] MEDS: Loratadine 10 MG TABLET PO (08:47)
[2024-03-04] MEDS: Gabapentin 300 MG CAPSULE PO (08:47)
[2024-03-04] MEDS: Nicotine Polacrilex Lozenge 2 MG LOZENGE BUCCAL (08:49)
[2024-03-04] MEDS: Fluticasone Propionate Nasal 16 GM SPRAY 1 SPRAY NOSTRIL-B (08:49)
[2024-03-04] MEDS: Fluticasone/Umeclidinium/Vilanterol 100/62.5/25 BLST.W.DEV 1 PUFF INHALE (08:50)
[2024-03-04 08:52] VITALS: BP 95/50; PULSE 67
[2024-03-04 08:56] LABS: Estimated Average Glucose 143 mg/dL; Hemoglobin A1c % 6.6 % (<6.0)
[2024-03-04 09:08] LABS: Cholesterol 108 mg/dL (<200); HDL Cholesterol 39 mg/dL (>40); LDL Cholesterol Calculated 56 mg/dL (<100); Magnesium 1.9 mg/dL (1.6-2.6); Triglycerides 68 mg/dL (<150)
[2024-03-04 09:17] LABS: Thyroid Stimulating Hormone 12.66 uIU/mL (0.32-4.0)
[2024-03-04 09:33] LABS: Folate 5.4 ng/mL (> or = 4.0); Vitamin B12 368 pg/mL (200-900)
--- NOTE | 2024-03-04 09:51 | PC.NURSE ---
RN called [facility] on this date. RN requested [facility] to bring in dentures and clothing for patient on this date. [facility] stated they would look for the dentures and bring them in if possible.
[2024-03-04] MEDS: Doxycycline Monohydrate 100 MG CAPSULE PO ×2 (10:56→23:05)
[2024-03-04 12:35] LABS: Glucose, Whole Blood 166 mg/dL (60-115)
[2024-03-04] MEDS: Insulin Lispro 100 UNIT/ML 3 ML VIAL SUBCUT ×2 (12:42→17:27)
[2024-03-04] MEDS: Gabapentin 300 MG CAPSULE 600 MG PO ×2 (14:34→20:29)
--- NOTE | 2024-03-04 14:50 | HO.PSYCHPN ---
Subjective Subjective Date of Service: 03/04/24 Reason For Visit: Unspecified Schizophrenia Spectrum and other psych Interim History: calm, cooperative. paranoid delusions but does say he is feeling better than prior. reviewed medication changes, opts to titrate upward on gabapentin and tamsulosin. concerned his DNA got screwed up somehow. per staff, dep/anx 10 yesterday. blunted. taking meds. delusional re aliens. toe wound being followed, dressing changes Q3 days. slept about 8 hours. Mental Status Exam Mental Status Exam Narrative: adequately dressed and groomed, cooperative with interview, no PMA/PMR, speech generally nml rate, amount, loudness, latency. somewhat reduced tone. thoughts mostly linear, some tangents, but illogical. paranoid delusions. affect constricted, normo-intense, non-labile. mood a lot better. starting to feel myself again. no SI/SIBI/HI/AVH expressed. Diagnostics Vital Signs (24Hr): Vital Signs - 24 hr 03/03/24 20:00 03/04/24 07:48 03/04/24 08:52 Temperature 98.3 F 98.8 F Pulse Rate 65 67 67 Respiratory Rate 106 H 14 Blood Pressure 113/59 L 95/50 L 95/50 L Pulse Oximetry 100 95 Oxygen Delivery Method Room Air Room Air BMI result Body Mass Index 21.1 Labs 03/04/24 08:33 Labs: Laboratory Results - last 48 hr 03/02/24 03/02/24 03/03/24 23:35 23:37 08:18 WBC Absolute Neuts (auto) POC Glucose 57 L* 191 H 129 H Estimat Average Glucose Hemoglobin A1c % Magnesium Triglycerides Cholesterol LDL Cholesterol, Calc HDL Cholesterol Vitamin B12 Folate TSH Free T4 03/03/24 03/03/24 03/03/24 12:49 17:37 19:51 WBC Absolute Neuts (auto) POC Glucose 133 H 126 H 182 H Estimat Average Glucose Hemoglobin A1c % Magnesium Triglycerides Cholesterol LDL Cholesterol, Calc HDL Cholesterol Vitamin B12 Folate TSH Free T4 03/04/24 03/04/24 03/04/24 08:05 08:33 08:38 WBC 9.6 Absolute Neuts (auto) 6.6 POC Glucose 55 L* 106 Estimat Average Glucose 143 Hemoglobin A1c % 6.6 H Magnesium 1.9 Triglycerides 68 Cholesterol 108 LDL Cholesterol, Calc 56 HDL Cholesterol 39 L Vitamin B12 368 Folate 5.4 TSH 12.66 H Free T4 1.10 03/04/24 12:30 WBC Absolute Neuts (auto) POC Glucose 166 H Estimat Average Glucose Hemoglobin A1c % Magnesium Triglycerides Cholesterol LDL Cholesterol, Calc HDL Cholesterol Vitamin B12 Folate TSH Free T4 Medications Medications Current Medications Acetaminophen (Acetaminophen 325 Mg Tablet) 650 mg PO Q6H PRN PRN Reason: Headache/Pain Mild Scale (1-3) Last Admin: 03/03/24 19:05 Dose: 650 mg Al Hydroxide/Mg Hydroxide (Magnesium Hydrox/Alum Hydrox 30 Ml Oral.Susp) 30 ml PO Q6H PRN PRN Reason: Heartburn/Nausea Albuterol Sulfate (Albuterol Sulfate 90 Mcg 8 Gm Inhaler) 2 puff INHALE RQ4H PRN PRN Reason: Shortness of Breath Atenolol (Atenolol 25 Mg Tablet) 25 mg PO DAILY [facility]; Protocol Last Admin: 03/04/24 08:52 Dose: Not Given Atorvastatin Calcium (Atorvastatin Calcium 40 Mg Tablet) 40 mg PO BEDTIME [facility] Last Admin: 03/03/24 20:08 Dose: 40 mg Clozapine (Clozapine 25 Mg Tablet) 75 mg PO BEDTIME [facility] Doxycycline Monohydrate (Doxycycline Monohydrate 100 Mg Capsule) 100 mg PO Q12H [facility] Stop: 03/06/24 21:00 Last Admin: 03/04/24 10:56 Dose: 100 mg Fluphenazine HCl (Fluphenazine Hcl 1 Mg Tablet) 1 mg PO BEDTIME [facility] Last Admin: 03/03/24 20:09 Dose: 1 mg Fluticasone Propionate (Fluticasone Propionate Nasal 16 Gm [place]) 1 spray NOSTRIL-B DAILY [facility] Last Admin: 03/04/24 08:49 Dose: 1 spray Fluticasone/Umeclidinium/Vilanterol (Fluticasone/Umeclidinium/Vilanterol 100/62.5/25 Blst.W.Dev) 1 puff INHALE RDAILY [facility] Last Admin: 03/04/24 08:50 Dose: 1 puff Gabapentin (Gabapentin 300 Mg Capsule) 600 mg PO TID [facility] Last Admin: 03/04/24 14:34 Dose: 600 mg Glucose (Glucose Gel 15 Gm Gel..Gram.) 15 gm PO Q15M PRN; Protocol PRN Reason: per Hypoglycemia Standing Ord. Hydroxyzine HCl (Hydroxyzine Hcl 25 Mg Tablet) 25 mg PO Q6H PRN PRN Reason: Anxiety Last Admin: 03/02/24 23:55 Dose: 25 mg Dextrose (D10) 250 mls @ 750 mls/hr IV Q15M PRN; Protocol PRN Reason: per Hypoglycemia Standing Ord. Insulin Glargine (Insulin Glargine,Hum.Rec.Anlog 100 Unit/Ml 10 Ml Vial) 30 unit SUBCUT BEDTIME [facility] Last Admin: 03/03/24 20:07 Dose: 30 unit Insulin Human Lispro (Insulin Lispro 100 Unit/Ml 3 Ml Vial) 0 unit SUBCUT QIDACHS [facility]; Protocol Last Admin: 03/04/24 12:42 Dose: 2 unit Levothyroxine Sodium (Levothyroxine Sodium 150 Mcg Tablet) 150 mcg PO DAILY@0600 [facility] Last Admin: 03/04/24 06:35 Dose: 150 mcg Lidocaine (Lidocaine 4 % Patch Adh..Patch) 1 patch TRANSDERMA DAILY [facility]; Protocol Last Admin: 03/04/24 08:56 Dose: Not Given [place] Carbonate ([place] Carbonate Er 450 Mg Tablet.Er) 450 mg PO BID [facility] Last Admin: 03/04/24 08:47 Dose: 450 mg Loratadine (Loratadine 10 Mg Tablet) 10 mg PO DAILY [facility] Last Admin: 03/04/24 08:47 Dose: 10 mg Magnesium Hydroxide (Milk Of Magnesia 30 Ml Oral.Susp) 30 ml PO DAILY PRN PRN Reason: Constipation Metformin HCl (Metformin Hcl 500 Mg Tablet) 500 mg PO BIDWM [facility] Last Admin: 03/04/24 08:47 Dose: 500 mg Nicotine (Nicotine 7 Mg Patch.Td24) 7 mg TRANSDERMA DAILY [facility] Last Admin: 03/04/24 08:56 Dose: Not Given Nicotine Polacrilex (Nicotine Polacrilex Lozenge 2 Mg Lozenge) 2 mg BUCCAL Q2H PRN PRN Reason: Nicotine Cravings Last Admin: 03/04/24 08:49 Dose: 2 mg Tamsulosin HCl (Tamsulosin Hcl 0.4 Mg Capsule) 0.8 mg PO BEDTIME [facility] Trazodone HCl (Trazodone Hcl 50 Mg Tablet) 50 mg PO BEDTIME MRX1 PRN PRN Reason: Insomnia Last Admin: 03/03/24 03:00 Dose: 50 mg Allergies Allergies Allergy/AdvReac Type Severity Reaction Status Date / Time amoxicillin [AMOXICILLIN] Allergy Intermediate SKIN RASH Verified 02/15/24 12:34 egg [EGGS] Allergy Intermediate HIVES, Verified 02/15/24 12:34 VOMITING Penicillins [PENICILLINS] Allergy Intermediate SKIN RASH Verified 02/15/24 12:34 Sulfa (Sulfonamide Allergy Intermediate SKIN RASH Verified 02/15/24 12:34 Antibiotics) [SULFA (SULFONAMIDE ANTIBIOTICS)] trimethoprim [TRIMETHOPRIM] Allergy Intermediate SKIN RASH Verified 02/15/24 12:34 penicillin V Allergy Unknown Unknown Verified 02/15/24 12:34 haloperidol [From Haldol] Allergy Unknown Verified 02/15/24 12:34 Latex, Natural Rubber Allergy Unknown Verified 02/15/24 12:34 methylprednisolone Allergy Unknown Verified 02/15/24 12:34 [From Solu-Medrol] penicillin Allergy Unknown Unknown Uncoded 10/10/20 14:35 sultamicillin Allergy Unknown Unknown Uncoded 10/10/20 14:35 trimethoprim Allergy Unknown Unknown Uncoded 10/10/20 14:35 Assessment & Plan Assessment & Plan (1) Encounter for staple removal: Status: Acute Code(s): Z48.02 - Encounter for removal of sutures Assessment and Plan: s/p SB resection admitted for behavioral issues good GI fumctiom looks well abd soft, incision clean, wellhealed kelli removed seen and examined independently 58-year-old male with history of schizophrenia, insulin-dependent type 2 diabetes, hypothyroidism, asthma/COPD overlap, hyperlipidemia admitted to adult Psychiatry who is 2 weeks s/p ex lap, with resection of about 220 cm small bladder with reanastomosis for high grade SBO. He is doing well post operatively. His abdomen is benign and incision clean, umbilical wound opening healing well. His kelli were removed. (2) Traumatic brain injury: Status: Acute Code(s): S06.9X9A - Unspecified intracranial injury with loss of consciousness of unspecified duration, initial encounter (3) Schizophrenia: Status: Acute Code(s): F20.9 - Schizophrenia, unspecified (4) Diabetes mellitus type 2 in nonobese: Status: Acute Code(s): E11.9 - Type 2 diabetes mellitus without complications Plan 03/04: restart prior outpt regimen with the exception of modified insulin regimen. will need to monitor FSBS closely with resumption of metformin, adjust insulin accordingly. will not restart the following at full dose: gabapentin (600 TID), metformin (1000 BIDWM), flomax (0.8 QHS), clozaril (unclear). will titrate those medications back toward prior outpt dosing. mainstay of psychiatric regimen will be the titration of clozapine back to therapeutic dosing. s/p TBI with impaired cognitive and memory function; keep in mind when considering various therapeutic options. medical problems as per hosptialist note otherwise. 03/05: increase gabapentin to outpt dose of 600 TID. increase tamsulosin to outpt dose of 0.8 QHS. titrate clozapine to 75 mg QHS (goal of 75/200). continue metformin 500 BID, consult with hospitalist re insulin dosing. Reason for continued inpatient stay Substantial Risk for: inability to function and rapid decompensation Time Spent With Patient Time: Total time managing care of this patient today __35__ minutes.
--- NOTE | 2024-03-04 15:19 | PM.EVENT ---
Event Note Date of Service: 03/04/24 Event Note: Follow up on pt with insulin dependent type 2 diabetes for fasting hypoglycemia. Since arrival glucose levels have been relatively stable however was hypoglycemia over last 2 days upon waking with glucose in 50s. A1c was 6.6%. To provider knowledge, no change in patient's eating habits. Glucose levels otherwise throughout the day wnl. Will cut lantus to 15 units nightly to help wtih fasting glucose levels. Metformin decreased to 500mg BID yesterday. Will likely increase back to 100mg BID but will follow sugars overnight and tomorrow prior to further adjustment. Continue ssi prn for hyperglycemia. Continue poc glucose. Will continue following Time Spent With Patient Time: Total time managing care of this patient today ____ minutes.
[2024-03-04 17:22] LABS: Glucose, Whole Blood 174 mg/dL (60-115)
[2024-03-04 20:00] VITALS: BP 107/56; PULSE 78; RESP 16; TEMP 36.8; O2SAT 99
[2024-03-04 20:27] LABS: Glucose, Whole Blood 123 mg/dL (60-115)
[2024-03-04] MEDS: cloZAPine 25 MG TABLET 75 MG PO (20:30)
[2024-03-04] MEDS: Tamsulosin HCL 0.4 MG CAPSULE 0.8 MG PO (20:31)
[2024-03-04] MEDS: fluPHENAZine HCl 1 MG TABLET PO (20:31)
[2024-03-04] MEDS: Atorvastatin Calcium 40 MG TABLET PO (20:32)
[2024-03-04] MEDS: Insulin Glargine,Hum.rec.anlog 100 UNIT/ML 10 ML VIAL 15 UNIT SUBCUT (21:09)
[2024-03-05] MEDS: Levothyroxine Sodium 150 MCG TABLET PO (06:33)
[2024-03-05 08:00] VITALS: BP 88/49; PULSE 68; RESP 18; TEMP 36.8; O2SAT 94
[2024-03-05 08:04] VITALS: BP 101/53; PULSE 66; RESP 16; O2SAT 94
[2024-03-05 08:08] VITALS: BP 101/53; PULSE 66
[2024-03-05] MEDS: atenoloL 25 MG TABLET PO (08:08)
[2024-03-05] MEDS: Gabapentin 300 MG CAPSULE 600 MG PO ×3 (08:08→20:50)
[2024-03-05] MEDS: Loratadine 10 MG TABLET PO (08:08)
[2024-03-05] MEDS: Lithium Carbonate ER 450 MG TABLET.ER PO ×2 (08:10→20:50)
[2024-03-05] MEDS: metFORMIN HCl 500 MG TABLET PO ×2 (08:10→16:50)
[2024-03-05] MEDS: Nicotine 7 MG PATCH.TD24 TRANSDERMA (08:11)
[2024-03-05] MEDS: Fluticasone/Umeclidinium/Vilanterol 100/62.5/25 BLST.W.DEV 1 PUFF INHALE (08:13)
[2024-03-05] MEDS: Fluticasone Propionate Nasal 16 GM SPRAY 1 SPRAY NOSTRIL-B (08:13)
[2024-03-05 08:30] LABS: Glucose, Whole Blood 112 mg/dL (60-115)
[2024-03-05] MEDS: Acetaminophen 325 MG TABLET 650 MG PO (08:31)
[2024-03-05] MEDS: Nicotine Polacrilex Lozenge 2 MG LOZENGE BUCCAL (11:57)
[2024-03-05] MEDS: Doxycycline Monohydrate 100 MG CAPSULE PO ×2 (11:57→22:18)
[2024-03-05 12:20] LABS: Glucose, Whole Blood 211 mg/dL (60-115)
[2024-03-05] MEDS: Insulin Lispro 100 UNIT/ML 3 ML VIAL SUBCUT ×2 (12:20→17:02)
--- NOTE | 2024-03-05 14:32 | HO.PSYCHPN ---
Subjective Subjective Date of Service: 03/05/24 Reason For Visit: Unspecified Schizophrenia Spectrum and other psych Interim History: gradual gains continue, had a good night's sleep, mood elevated, mind more free, thought clearer. agreeable to continue clozaril titration. per staff, dep/anx 6. paranoid. taking meals and meds. not attending groups. toe wound healing as expected. +AH. broad affect. POC 123, slept 8 hours. Mental Status Exam Mental Status Exam Narrative: adequately dressed and groomed, cooperative with interview, no PMA/PMR, speech generally nml rate, amount, loudness, latency. somewhat reduced tone. thoughts mostly linear, some logical, others not.. paranoid delusions. affect constricted, normo-intense, non-labile. mood elevated + AH. no SI/SIBI/HI/VH expressed. Diagnostics Vital Signs (24Hr): Vital Signs - 24 hr 03/04/24 20:00 03/05/24 08:00 03/05/24 08:04 Temperature 98.3 F 98.3 F Pulse Rate 78 68 66 Respiratory Rate 16 18 16 Blood Pressure 107/56 L 88/49 L 101/53 L Pulse Oximetry 99 94 94 Oxygen Delivery Method Room Air Room Air Room Air 03/05/24 08:08 Temperature Pulse Rate 66 Respiratory Rate Blood Pressure 101/53 L Pulse Oximetry Oxygen Delivery Method BMI result Body Mass Index 21.1 Labs 03/04/24 08:33 Labs: Laboratory Results - last 48 hr 03/03/24 03/03/24 03/04/24 17:37 19:51 08:05 WBC Absolute Neuts (auto) POC Glucose 126 H 182 H 55 L* Estimat Average Glucose Hemoglobin A1c % Magnesium Triglycerides Cholesterol LDL Cholesterol, Calc HDL Cholesterol Vitamin B12 Folate TSH Free T4 03/04/24 03/04/24 03/04/24 08:33 08:38 12:30 WBC 9.6 Absolute Neuts (auto) 6.6 POC Glucose 106 166 H Estimat Average Glucose 143 Hemoglobin A1c % 6.6 H Magnesium 1.9 Triglycerides 68 Cholesterol 108 LDL Cholesterol, Calc 56 HDL Cholesterol 39 L Vitamin B12 368 Folate 5.4 TSH 12.66 H Free T4 1.10 03/04/24 03/04/24 03/05/24 17:17 20:22 08:06 WBC Absolute Neuts (auto) POC Glucose 174 H 123 H 112 Estimat Average Glucose Hemoglobin A1c % Magnesium Triglycerides Cholesterol LDL Cholesterol, Calc HDL Cholesterol Vitamin B12 Folate TSH Free T4 03/05/24 12:00 WBC Absolute Neuts (auto) POC Glucose 211 H Estimat Average Glucose Hemoglobin A1c % Magnesium Triglycerides Cholesterol LDL Cholesterol, Calc HDL Cholesterol Vitamin B12 Folate TSH Free T4 Medications Medications Current Medications Acetaminophen (Acetaminophen 325 Mg Tablet) 650 mg PO Q6H PRN PRN Reason: Headache/Pain Mild Scale (1-3) Last Admin: 03/05/24 08:31 Dose: 650 mg Al Hydroxide/Mg Hydroxide (Magnesium Hydrox/Alum Hydrox 30 Ml Oral.Susp) 30 ml PO Q6H PRN PRN Reason: Heartburn/Nausea Albuterol Sulfate (Albuterol Sulfate 90 Mcg 8 Gm Inhaler) 2 puff INHALE RQ4H PRN PRN Reason: Shortness of Breath Atenolol (Atenolol 25 Mg Tablet) 25 mg PO DAILY [facility]; Protocol Last Admin: 03/05/24 08:08 Dose: 25 mg Atorvastatin Calcium (Atorvastatin Calcium 40 Mg Tablet) 40 mg PO BEDTIME [facility] Last Admin: 03/04/24 20:32 Dose: 40 mg Clozapine (Clozapine 100 Mg Tablet) 100 mg PO BEDTIME [facility] Doxycycline Monohydrate (Doxycycline Monohydrate 100 Mg Capsule) 100 mg PO Q12H [facility] Stop: 03/06/24 21:00 Last Admin: 03/05/24 11:57 Dose: 100 mg Fluphenazine HCl (Fluphenazine Hcl 1 Mg Tablet) 1 mg PO BEDTIME [facility] Last Admin: 03/04/24 20:31 Dose: 1 mg Fluticasone Propionate (Fluticasone Propionate Nasal 16 Gm [place]) 1 spray NOSTRIL-B DAILY [facility] Last Admin: 03/05/24 08:13 Dose: 1 spray Fluticasone/Umeclidinium/Vilanterol (Fluticasone/Umeclidinium/Vilanterol 100/62.5/25 Blst.W.Dev) 1 puff INHALE RDAILY [facility] Last Admin: 03/05/24 08:13 Dose: 1 puff Gabapentin (Gabapentin 300 Mg Capsule) 600 mg PO TID [facility] Last Admin: 03/05/24 08:08 Dose: 600 mg Glucose (Glucose Gel 15 Gm Gel..Gram.) 15 gm PO Q15M PRN; Protocol PRN Reason: per Hypoglycemia Standing Ord. Hydroxyzine HCl (Hydroxyzine Hcl 25 Mg Tablet) 25 mg PO Q6H PRN PRN Reason: Anxiety Last Admin: 03/02/24 23:55 Dose: 25 mg Dextrose (D10) 250 mls @ 750 mls/hr IV Q15M PRN; Protocol PRN Reason: per Hypoglycemia Standing Ord. Insulin Glargine (Insulin Glargine,Hum.Rec.Anlog 100 Unit/Ml 10 Ml Vial) 15 unit SUBCUT BEDTIME [facility] Last Admin: 03/04/24 21:09 Dose: 15 unit Insulin Human Lispro (Insulin Lispro 100 Unit/Ml 3 Ml Vial) 0 unit SUBCUT QIDACHS [facility]; Protocol Last Admin: 03/05/24 12:20 Dose: 4 unit Levothyroxine Sodium (Levothyroxine Sodium 150 Mcg Tablet) 150 mcg PO DAILY@0600 [facility] Last Admin: 03/05/24 06:33 Dose: 150 mcg Lidocaine (Lidocaine 4 % Patch Adh..Patch) 1 patch TRANSDERMA DAILY [facility]; Protocol Last Admin: 03/05/24 08:10 Dose: Not Given [place] Carbonate ([place] Carbonate Er 450 Mg Tablet.Er) 450 mg PO BID [facility] Last Admin: 03/05/24 08:10 Dose: 450 mg Loratadine (Loratadine 10 Mg Tablet) 10 mg PO DAILY [facility] Last Admin: 03/05/24 08:08 Dose: 10 mg Magnesium Hydroxide (Milk Of Magnesia 30 Ml Oral.Susp) 30 ml PO DAILY PRN PRN Reason: Constipation Metformin HCl (Metformin Hcl 500 Mg Tablet) 500 mg PO BIDWM [facility] Last Admin: 03/05/24 08:10 Dose: 500 mg Nicotine (Nicotine 7 Mg Patch.Td24) 7 mg TRANSDERMA DAILY [facility] Last Admin: 03/05/24 08:11 Dose: 7 mg Nicotine Polacrilex (Nicotine Polacrilex Lozenge 2 Mg Lozenge) 2 mg BUCCAL Q2H PRN PRN Reason: Nicotine Cravings Last Admin: 03/05/24 11:57 Dose: 2 mg Tamsulosin HCl (Tamsulosin Hcl 0.4 Mg Capsule) 0.8 mg PO BEDTIME [facility] Last Admin: 03/04/24 20:31 Dose: 0.8 mg Trazodone HCl (Trazodone Hcl 50 Mg Tablet) 50 mg PO BEDTIME MRX1 PRN PRN Reason: Insomnia Last Admin: 03/03/24 03:00 Dose: 50 mg Allergies Allergies Allergy/AdvReac Type Severity Reaction Status Date / Time amoxicillin [AMOXICILLIN] Allergy Intermediate SKIN RASH Verified 02/15/24 12:34 egg [EGGS] Allergy Intermediate HIVES, Verified 02/15/24 12:34 VOMITING Penicillins [PENICILLINS] Allergy Intermediate SKIN RASH Verified 02/15/24 12:34 Sulfa (Sulfonamide Allergy Intermediate SKIN RASH Verified 02/15/24 12:34 Antibiotics) [SULFA (SULFONAMIDE ANTIBIOTICS)] trimethoprim [TRIMETHOPRIM] Allergy Intermediate SKIN RASH Verified 02/15/24 12:34 penicillin V Allergy Unknown Unknown Verified 02/15/24 12:34 haloperidol [From Haldol] Allergy Unknown Verified 02/15/24 12:34 Latex, Natural Rubber Allergy Unknown Verified 02/15/24 12:34 methylprednisolone Allergy Unknown Verified 02/15/24 12:34 [From Solu-Medrol] penicillin Allergy Unknown Unknown Uncoded 10/10/20 14:35 sultamicillin Allergy Unknown Unknown Uncoded 10/10/20 14:35 trimethoprim Allergy Unknown Unknown Uncoded 10/10/20 14:35 Assessment & Plan Assessment & Plan (1) Encounter for staple removal: Status: Acute Code(s): Z48.02 - Encounter for removal of sutures Assessment and Plan: s/p SB resection admitted for behavioral issues good GI fumctiom looks well abd soft, incision clean, wellhealed kelli removed seen and examined independently 58-year-old male with history of schizophrenia, insulin-dependent type 2 diabetes, hypothyroidism, asthma/COPD overlap, hyperlipidemia admitted to adult Psychiatry who is 2 weeks s/p ex lap, with resection of about 220 cm small bladder with reanastomosis for high grade SBO. He is doing well post operatively. His abdomen is benign and incision clean, umbilical wound opening healing well. His kelli were removed. (2) Traumatic brain injury: Status: Acute Code(s): S06.9X9A - Unspecified intracranial injury with loss of consciousness of unspecified duration, initial encounter (3) Schizophrenia: Status: Acute Code(s): F20.9 - Schizophrenia, unspecified (4) Diabetes mellitus type 2 in nonobese: Status: Acute Code(s): E11.9 - Type 2 diabetes mellitus without complications Plan 03/03: restart prior outpt regimen with the exception of modified insulin regimen. will need to monitor FSBS closely with resumption of metformin, adjust insulin accordingly. will not restart the following at full dose: gabapentin (600 TID), metformin (1000 BIDWM), flomax (0.8 QHS), clozaril (unclear). will titrate those medications back toward prior outpt dosing. mainstay of psychiatric regimen will be the titration of clozapine back to therapeutic dosing. s/p TBI with impaired cognitive and memory function; keep in mind when considering various therapeutic options. medical problems as per hosptialist note otherwise. 03/04: increase gabapentin to outpt dose of 600 TID. increase tamsulosin to outpt dose of 0.8 QHS. titrate clozapine to 75 mg QHS (goal of 75/200). continue metformin 500 BID, consult with hospitalist re insulin dosing. 03/05: gradual improvement day by day. continue clozaril titration, 100 mg tonight. Reason for continued inpatient stay Substantial Risk for: inability to function and rapid decompensation Time Spent With Patient Time: Total time managing care of this patient today __25__ minutes.
[2024-03-05 15:17] LABS: COVID-19 Test Negative (Negative); IDNOW Serial# 152EDE1D
[2024-03-05 20:46] LABS: Glucose, Whole Blood 150 mg/dL (60-115)
[2024-03-05 20:46] LABS: Glucose, Whole Blood 188 mg/dL (60-115)
[2024-03-05] MEDS: Tamsulosin HCL 0.4 MG CAPSULE 0.8 MG PO (20:50)
[2024-03-05] MEDS: cloZAPine 100 MG TABLET PO (20:51)
[2024-03-05] MEDS: Atorvastatin Calcium 40 MG TABLET PO (20:51)
[2024-03-05] MEDS: Insulin Glargine,Hum.rec.anlog 100 UNIT/ML 10 ML VIAL 15 UNIT SUBCUT (20:51)
[2024-03-05] MEDS: fluPHENAZine HCl 1 MG TABLET PO (20:51)
[2024-03-05 21:12] VITALS: BP 114/57; PULSE 75; RESP 16; TEMP 36.6; O2SAT 97
[2024-03-06] MEDS: Levothyroxine Sodium 150 MCG TABLET PO (05:57)
[2024-03-06 08:05] VITALS: BP 80/37; PULSE 76; RESP 18; TEMP 37; O2SAT 97
[2024-03-06 08:12] LABS: Glucose, Whole Blood 213 mg/dL (60-115)
[2024-03-06] MEDS: Insulin Lispro 100 UNIT/ML 3 ML VIAL SUBCUT ×3 (08:50→22:25)
[2024-03-06] MEDS: Nicotine 7 MG PATCH.TD24 TRANSDERMA (08:51)
[2024-03-06] MEDS: metFORMIN HCl 500 MG TABLET PO ×2 (08:51→17:04)
[2024-03-06 08:55] VITALS: BP 101/57; PULSE 77
[2024-03-06] MEDS: Lithium Carbonate ER 450 MG TABLET.ER PO ×2 (08:56→22:19)
[2024-03-06] MEDS: Gabapentin 300 MG CAPSULE 600 MG PO ×3 (08:56→22:20)
[2024-03-06 08:57] VITALS: BP 101/57; PULSE 77
[2024-03-06] MEDS: Loratadine 10 MG TABLET PO (08:57)
[2024-03-06] MEDS: atenoloL 25 MG TABLET PO (08:57)
[2024-03-06] MEDS: Fluticasone/Umeclidinium/Vilanterol 100/62.5/25 BLST.W.DEV 1 PUFF INHALE (08:58)
[2024-03-06] MEDS: Fluticasone Propionate Nasal 16 GM SPRAY 1 SPRAY NOSTRIL-B (08:58)
[2024-03-06] MEDS: Doxycycline Monohydrate 100 MG CAPSULE PO (11:52)
[2024-03-06 11:59] LABS: Glucose, Whole Blood 110 mg/dL (60-115)
[2024-03-06] MEDS: Nicotine Polacrilex Lozenge 2 MG LOZENGE BUCCAL (14:08)
--- NOTE | 2024-03-06 16:08 | P.PNPSI_ITS ---
Subjective Subjective Date of Service: 03/06/24 Reason For Visit: Unspecified Schizophrenia Spectrum and other psych Interim History: pleasant, disorganized, delusional. no complaints. per staff, not attending groups. dep 5 anx 8. denies AH but RIS. eating well. POC 112, 211, 188, 150. case d/w dr. torres of GI. brian recommended colace for constipation. noted that per surgical report, bowel obstruction was caused by torsion around mesentery which is not c/w clozaril-mediated bowel obstruction. Mental Status Exam Mental Status Exam Narrative: adequately dressed and groomed, cooperative with interview, no PMA/PMR, speech generally nml rate, amount, loudness, latency. somewhat reduced tone. thoughts mostly linear, some logical, others not.. paranoid delusions. affect constricted, normo-intense, non-labile. no SI/SIBI/HI/AVH expressed. Diagnostics Vital Signs (24Hr): Vital Signs - 24 hr 03/05/24 21:12 03/06/24 08:05 03/06/24 08:55 Temperature 97.8 F 98.6 F Pulse Rate 75 76 77 Respiratory Rate 16 18 Blood Pressure 114/57 L 80/37 L 101/57 L Pulse Oximetry 97 97 Oxygen Delivery Method Room Air Room Air 03/06/24 08:57 Temperature Pulse Rate 77 Respiratory Rate Blood Pressure 101/57 L Pulse Oximetry Oxygen Delivery Method BMI result Body Mass Index 21.1 Labs 03/04/24 08:33 Labs: Laboratory Results - last 48 hr 03/04/24 03/04/24 03/05/24 17:17 20:22 08:06 POC Glucose 174 H 123 H 112 COVID-19 ([facility]) COVID-19 Clin Com 03/05/24 03/05/24 03/05/24 12:00 14:20 16:53 POC Glucose 211 H 188 H COVID-19 ([facility]) Negative COVID-19 Clin Com See Note 03/05/24 03/06/24 03/06/24 20:41 08:05 11:55 POC Glucose 150 H 213 H 110 COVID-19 ([facility]) COVID-19 Clin Com Medications Medications Current Medications Acetaminophen (Acetaminophen 325 Mg Tablet) 650 mg PO Q6H PRN PRN Reason: Headache/Pain Mild Scale (1-3) Last Admin: 03/05/24 08:31 Dose: 650 mg Al Hydroxide/Mg Hydroxide (Magnesium Hydrox/Alum Hydrox 30 Ml Oral.Susp) 30 ml PO Q6H PRN PRN Reason: Heartburn/Nausea Albuterol Sulfate (Albuterol Sulfate 90 Mcg 8 Gm Inhaler) 2 puff INHALE RQ4H PRN PRN Reason: Shortness of Breath Atenolol (Atenolol 25 Mg Tablet) 25 mg PO DAILY [facility]; Protocol Last Admin: 03/06/24 08:57 Dose: 25 mg Atorvastatin Calcium (Atorvastatin Calcium 40 Mg Tablet) 40 mg PO BEDTIME [facility] Last Admin: 03/05/24 20:51 Dose: 40 mg Clozapine (Clozapine 100 Mg Tablet) 100 mg PO BEDTIME [facility] Last Admin: 03/05/24 20:51 Dose: 100 mg Docusate Sodium (Docusate Sodium 100 Mg Capsule) 100 mg PO BID [facility] Doxycycline Monohydrate (Doxycycline Monohydrate 100 Mg Capsule) 100 mg PO Q12H [facility] Stop: 03/06/24 21:00 Last Admin: 03/06/24 11:52 Dose: 100 mg Fluphenazine HCl (Fluphenazine Hcl 1 Mg Tablet) 1 mg PO BEDTIME [facility] Last Admin: 03/05/24 20:51 Dose: 1 mg Fluticasone Propionate (Fluticasone Propionate Nasal 16 Gm [place]) 1 spray NOSTRIL-B DAILY [facility] Last Admin: 03/06/24 08:58 Dose: 1 spray Fluticasone/Umeclidinium/Vilanterol (Fluticasone/Umeclidinium/Vilanterol 100/62.5/25 Blst.W.Dev) 1 puff INHALE RDAILY [facility] Last Admin: 03/06/24 08:58 Dose: 1 puff Gabapentin (Gabapentin 300 Mg Capsule) 600 mg PO TID [facility] Last Admin: 03/06/24 14:58 Dose: 600 mg Glucose (Glucose Gel 15 Gm Gel..Gram.) 15 gm PO Q15M PRN; Protocol PRN Reason: per Hypoglycemia Standing Ord. Hydroxyzine HCl (Hydroxyzine Hcl 25 Mg Tablet) 25 mg PO Q6H PRN PRN Reason: Anxiety Last Admin: 03/02/24 23:55 Dose: 25 mg Dextrose (D10) 250 mls @ 750 mls/hr IV Q15M PRN; Protocol PRN Reason: per Hypoglycemia Standing Ord. Insulin Glargine (Insulin Glargine,Hum.Rec.Anlog 100 Unit/Ml 10 Ml Vial) 15 unit SUBCUT BEDTIME [facility] Last Admin: 03/05/24 20:51 Dose: 15 unit Insulin Human Lispro (Insulin Lispro 100 Unit/Ml 3 Ml Vial) 0 unit SUBCUT QIDACHS [facility]; Protocol Last Admin: 03/06/24 11:57 Dose: Not Given Levothyroxine Sodium (Levothyroxine Sodium 150 Mcg Tablet) 150 mcg PO DAILY@0600 [facility] Last Admin: 03/06/24 05:57 Dose: 150 mcg Lidocaine (Lidocaine 4 % Patch Adh..Patch) 1 patch TRANSDERMA DAILY [facility]; Protocol Last Admin: 03/06/24 09:01 Dose: Not Given [place] Carbonate ([place] Carbonate Er 450 Mg Tablet.Er) 450 mg PO BID [facility] Last Admin: 03/06/24 08:56 Dose: 450 mg Loratadine (Loratadine 10 Mg Tablet) 10 mg PO DAILY [facility] Last Admin: 03/06/24 08:57 Dose: 10 mg Magnesium Hydroxide (Milk Of Magnesia 30 Ml Oral.Susp) 30 ml PO DAILY PRN PRN Reason: Constipation Metformin HCl (Metformin Hcl 500 Mg Tablet) 500 mg PO BIDWM [facility] Last Admin: 03/06/24 08:51 Dose: 500 mg Nicotine (Nicotine 7 Mg Patch.Td24) 7 mg TRANSDERMA DAILY [facility] Last Admin: 03/06/24 08:51 Dose: 7 mg Nicotine Polacrilex (Nicotine Polacrilex Lozenge 2 Mg Lozenge) 2 mg BUCCAL Q2H PRN PRN Reason: Nicotine Cravings Last Admin: 03/06/24 14:08 Dose: 2 mg Tamsulosin HCl (Tamsulosin Hcl 0.4 Mg Capsule) 0.8 mg PO BEDTIME [facility] Last Admin: 03/05/24 20:50 Dose: 0.8 mg Trazodone HCl (Trazodone Hcl 50 Mg Tablet) 50 mg PO BEDTIME MRX1 PRN PRN Reason: Insomnia Last Admin: 03/03/24 03:00 Dose: 50 mg Allergies Allergies Allergy/AdvReac Type Severity Reaction Status Date / Time amoxicillin [AMOXICILLIN] Allergy Intermediate SKIN RASH Verified 02/15/24 12:34 egg [EGGS] Allergy Intermediate HIVES, Verified 02/15/24 12:34 VOMITING Penicillins [PENICILLINS] Allergy Intermediate SKIN RASH Verified 02/15/24 12:34 Sulfa (Sulfonamide Allergy Intermediate SKIN RASH Verified 02/15/24 12:34 Antibiotics) [SULFA (SULFONAMIDE ANTIBIOTICS)] trimethoprim [TRIMETHOPRIM] Allergy Intermediate SKIN RASH Verified 02/15/24 12:34 penicillin V Allergy Unknown Unknown Verified 02/15/24 12:34 haloperidol [From Haldol] Allergy Unknown Verified 02/15/24 12:34 Latex, Natural Rubber Allergy Unknown Verified 02/15/24 12:34 methylprednisolone Allergy Unknown Verified 02/15/24 12:34 [From Solu-Medrol] penicillin Allergy Unknown Unknown Uncoded 10/10/20 14:35 sultamicillin Allergy Unknown Unknown Uncoded 10/10/20 14:35 trimethoprim Allergy Unknown Unknown Uncoded 10/10/20 14:35 Assessment & Plan Assessment & Plan (1) Encounter for staple removal: Status: Acute Code(s): Z48.02 - Encounter for removal of sutures Assessment and Plan: s/p SB resection admitted for behavioral issues good GI fumctiom looks well abd soft, incision clean, wellhealed kelli removed seen and examined independently 58-year-old male with history of schizophrenia, insulin-dependent type 2 diabetes, hypothyroidism, asthma/COPD overlap, hyperlipidemia admitted to adult Psychiatry who is 2 weeks s/p ex lap, with resection of about 220 cm small bladder with reanastomosis for high grade SBO. He is doing well post operatively. His abdomen is benign and incision clean, umbilical wound opening healing well. His kelli were removed. (2) Traumatic brain injury: Status: Acute Code(s): S06.9X9A - Unspecified intracranial injury with loss of consciousness of unspecified duration, initial encounter (3) Schizophrenia: Status: Acute Code(s): F20.9 - Schizophrenia, unspecified (4) Diabetes mellitus type 2 in nonobese: Status: Acute Code(s): E11.9 - Type 2 diabetes mellitus without complications Plan 03/03: restart prior outpt regimen with the exception of modified insulin regimen. will need to monitor FSBS closely with resumption of metformin, adjust insulin accordingly. will not restart the following at full dose: gabapentin (600 TID), metformin (1000 BIDWM), flomax (0.8 QHS), clozaril (unclear). will titrate those medications back toward prior outpt dosing. mainstay of psychiatric regimen will be the titration of clozapine back to therapeutic dosing. s/p TBI with impaired cognitive and memory function; keep in mind when considering various therapeutic options. medical problems as per hosptialist note otherwise. 03/04: increase gabapentin to outpt dose of 600 TID. increase tamsulosin to outpt dose of 0.8 QHS. titrate clozapine to 75 mg QHS (goal of 75/200). continue metformin 500 BID, consult with hospitalist re insulin dosing. 03/05: gradual improvement day by day. continue clozaril titration, 100 mg tonight. 03/06: continue clozaril titration, to 125 mg tonight. continue over w/e as tolerated, 25 mg per night. colace 100 BID added for constipation. case d/w dr. torres of GI. brian recommended colace for constipation. noted that per surgical report, bowel obstruction was caused by torsion around mesentery which is not c/w clozaril-mediated bowel obstruction. Reason for continued inpatient stay Substantial Risk for: inability to function and rapid decompensation Time Spent With Patient Time: Total time managing care of this patient today __35__ minutes.
[2024-03-06] MEDS: Docusate Sodium 100 MG CAPSULE PO ×2 (16:37→22:20)
[2024-03-06 16:39] LABS: Glucose, Whole Blood 207 mg/dL (60-115)
[2024-03-06 19:30] VITALS: BP 123/58; PULSE 74; RESP 16; TEMP 36.9; O2SAT 100
[2024-03-06 22:09] LABS: Glucose, Whole Blood 171 mg/dL (60-115)
[2024-03-06] MEDS: Tamsulosin HCL 0.4 MG CAPSULE 0.8 MG PO (22:19)
[2024-03-06] MEDS: fluPHENAZine HCl 1 MG TABLET PO (22:20)
[2024-03-06] MEDS: cloZAPine 100 MG TABLET PO (22:20)
[2024-03-06] MEDS: Atorvastatin Calcium 40 MG TABLET PO (22:20)
[2024-03-06] MEDS: traZODone HCL 50 MG TABLET PO (22:20)
[2024-03-06] MEDS: cloZAPine 25 MG TABLET PO (22:20)
[2024-03-06] MEDS: Insulin Glargine,Hum.rec.anlog 100 UNIT/ML 10 ML VIAL 15 UNIT SUBCUT (22:26)
[2024-03-07] MEDS: Levothyroxine Sodium 150 MCG TABLET PO (07:21)
[2024-03-07 08:27] VITALS: BP 103/56; PULSE 66; RESP 16; TEMP 37.1; O2SAT 96
[2024-03-07 08:48] LABS: Glucose, Whole Blood 112 mg/dL (60-115)
[2024-03-07] MEDS: Gabapentin 300 MG CAPSULE 600 MG PO ×3 (09:07→22:45)
[2024-03-07] MEDS: Lithium Carbonate ER 450 MG TABLET.ER PO ×2 (09:08→22:45)
[2024-03-07 09:09] VITALS: BP 105/56; PULSE 66
[2024-03-07] MEDS: metFORMIN HCl 500 MG TABLET PO ×2 (09:09→16:52)
[2024-03-07] MEDS: atenoloL 25 MG TABLET PO (09:09)
[2024-03-07] MEDS: Loratadine 10 MG TABLET PO (09:10)
[2024-03-07] MEDS: Fluticasone/Umeclidinium/Vilanterol 100/62.5/25 BLST.W.DEV 1 PUFF INHALE (09:10)
[2024-03-07] MEDS: Fluticasone Propionate Nasal 16 GM SPRAY 1 SPRAY NOSTRIL-B (09:11)
[2024-03-07] MEDS: Nicotine 7 MG PATCH.TD24 TRANSDERMA (09:57)
[2024-03-07] MEDS: Nicotine Polacrilex Lozenge 2 MG LOZENGE BUCCAL (09:58)
[2024-03-07 12:29] LABS: Glucose, Whole Blood 193 mg/dL (60-115)
[2024-03-07] MEDS: Insulin Lispro 100 UNIT/ML 3 ML VIAL SUBCUT ×3 (12:38→22:54)
[2024-03-07] MEDS: hydrOXYzine HCL 25 MG TABLET PO (16:52)
[2024-03-07 17:21] LABS: Glucose, Whole Blood 184 mg/dL (60-115)
[2024-03-07 19:37] VITALS: BP 131/58; PULSE 79; RESP 16; TEMP 36.9; O2SAT 97
--- NOTE | 2024-03-07 21:06 | P.PNPSI_ITS ---
Subjective Subjective Date of Service: 03/07/24 Reason For Visit: Unspecified Schizophrenia Spectrum and other psych Interim History: Pleasant. Somewhat pressured. Eager to get the Clozapine to a more therapeutic level. Continues disorganized, delusional. He is visible on the unit. denies AH but RIS. eating well. Denies SI. Review of Systems Review of Systems General: No fevers, malaise, unintentional weight loss HEENT: No blurred vision, diplopia. No sore throat, nasal congestion, rhinorrhea, sinus pain, ear pain Cardiovascular: No chest pain, palpitations, or leg edema Respiratory: No shortness of breath, wheezing, cough GI: No abdominal pain, nausea, vomiting, diarrhea, constipation, melena, hematochezia : No dysuria, hematuria, increased urinary frequency, decreased urinary output MSK: No myalgia, back pain Neuro: No headaches, weakness, paresthesias Skin: No rashes. +Ulcer R great toe Constitutional: Denies chills and Denies fever(s) Gastrointestinal: Reports as per HPI Skin/Breast: Denies rash Mental Status Exam Mental Status Exam Narrative: adequately dressed and groomed, cooperative with interview, no PMA/PMR, speech generally nml rate, amount, loudness, latency. somewhat reduced tone. thoughts mostly linear, some logical, others not.. paranoid delusions. affect constricted, normo-intense, non-labile. no SI/SIBI/HI/AVH expressed. Diagnostics Vital Signs (24Hr): Vital Signs - 24 hr 03/07/24 08:27 03/07/24 09:09 Temperature 98.8 F Pulse Rate 66 66 Respiratory Rate 16 Blood Pressure 103/56 L 105/56 L Pulse Oximetry 96 Oxygen Delivery Method Room Air BMI result Body Mass Index 21.1 Labs 03/04/24 08:33 Labs: Laboratory Results - last 48 hr 03/06/24 03/06/24 03/06/24 08:05 11:55 16:35 POC Glucose 213 H 110 207 H 03/06/24 03/07/24 03/07/24 22:02 08:43 12:24 POC Glucose 171 H 112 193 H 03/07/24 17:17 POC Glucose 184 H Medications Medications Current Medications Acetaminophen (Acetaminophen 325 Mg Tablet) 650 mg PO Q6H PRN PRN Reason: Headache/Pain Mild Scale (1-3) Last Admin: 03/05/24 08:31 Dose: 650 mg Al Hydroxide/Mg Hydroxide (Magnesium Hydrox/Alum Hydrox 30 Ml Oral.Susp) 30 ml PO Q6H PRN PRN Reason: Heartburn/Nausea Albuterol Sulfate (Albuterol Sulfate 90 Mcg 8 Gm Inhaler) 2 puff INHALE RQ4H PRN PRN Reason: Shortness of Breath Atenolol (Atenolol 25 Mg Tablet) 25 mg PO DAILY [facility]; Protocol Last Admin: 03/07/24 09:09 Dose: 25 mg Atorvastatin Calcium (Atorvastatin Calcium 40 Mg Tablet) 40 mg PO BEDTIME [facility] Last Admin: 03/06/24 22:20 Dose: 40 mg Clozapine (Clozapine 100 Mg Tablet) 100 mg PO BEDTIME [facility] Last Admin: 03/06/24 22:20 Dose: 100 mg Clozapine (Clozapine 25 Mg Tablet) 25 mg PO BEDTIME [facility] Last Admin: 03/06/24 22:20 Dose: 25 mg Docusate Sodium (Docusate Sodium 100 Mg Capsule) 100 mg PO BID [facility] Last Admin: 03/07/24 09:40 Dose: Not Given Fluphenazine HCl (Fluphenazine Hcl 1 Mg Tablet) 1 mg PO BEDTIME [facility] Last Admin: 03/06/24 22:20 Dose: 1 mg Fluticasone Propionate (Fluticasone Propionate Nasal 16 Gm [place]) 1 spray NOSTRIL-B DAILY [facility] Last Admin: 03/07/24 09:11 Dose: 1 spray Fluticasone/Umeclidinium/Vilanterol (Fluticasone/Umeclidinium/Vilanterol 100/62.5/25 Blst.W.Dev) 1 puff INHALE RDAILY [facility] Last Admin: 03/07/24 09:10 Dose: 1 puff Gabapentin (Gabapentin 300 Mg Capsule) 600 mg PO TID [facility] Last Admin: 03/07/24 15:06 Dose: 600 mg Glucose (Glucose Gel 15 Gm Gel..Gram.) 15 gm PO Q15M PRN; Protocol PRN Reason: per Hypoglycemia Standing Ord. Hydroxyzine HCl (Hydroxyzine Hcl 25 Mg Tablet) 25 mg PO Q6H PRN PRN Reason: Anxiety Last Admin: 03/07/24 16:52 Dose: 25 mg Dextrose (D10) 250 mls @ 750 mls/hr IV Q15M PRN; Protocol PRN Reason: per Hypoglycemia Standing Ord. Insulin Glargine (Insulin Glargine,Hum.Rec.Anlog 100 Unit/Ml 10 Ml Vial) 15 unit SUBCUT BEDTIME [facility] Last Admin: 03/06/24 22:26 Dose: 15 unit Insulin Human Lispro (Insulin Lispro 100 Unit/Ml 3 Ml Vial) 0 unit SUBCUT QIDACHS [facility]; Protocol Last Admin: 03/07/24 17:27 Dose: 2 unit Levothyroxine Sodium (Levothyroxine Sodium 150 Mcg Tablet) 150 mcg PO DAILY@0600 [facility] Last Admin: 03/07/24 07:21 Dose: 150 mcg Lidocaine (Lidocaine 4 % Patch Adh..Patch) 1 patch TRANSDERMA DAILY [facility]; Protocol Last Admin: 03/07/24 09:52 Dose: Not Given [place] Carbonate ([place] Carbonate Er 450 Mg Tablet.Er) 450 mg PO BID [facility] Last Admin: 03/07/24 09:08 Dose: 450 mg Loratadine (Loratadine 10 Mg Tablet) 10 mg PO DAILY [facility] Last Admin: 03/07/24 09:10 Dose: 10 mg Magnesium Hydroxide (Milk Of Magnesia 30 Ml Oral.Susp) 30 ml PO DAILY PRN PRN Reason: Constipation Metformin HCl (Metformin Hcl 500 Mg Tablet) 500 mg PO BIDWM [facility] Last Admin: 03/07/24 16:52 Dose: 500 mg Nicotine (Nicotine 7 Mg Patch.Td24) 7 mg TRANSDERMA DAILY [facility] Last Admin: 03/07/24 09:57 Dose: 7 mg Nicotine Polacrilex (Nicotine Polacrilex Lozenge 2 Mg Lozenge) 2 mg BUCCAL Q2H PRN PRN Reason: Nicotine Cravings Last Admin: 03/07/24 09:58 Dose: 2 mg Tamsulosin HCl (Tamsulosin Hcl 0.4 Mg Capsule) 0.8 mg PO BEDTIME [facility] Last Admin: 03/06/24 22:19 Dose: 0.8 mg Trazodone HCl (Trazodone Hcl 50 Mg Tablet) 50 mg PO BEDTIME MRX1 PRN PRN Reason: Insomnia Last Admin: 03/06/24 22:20 Dose: 50 mg Allergies Allergies Allergy/AdvReac Type Severity Reaction Status Date / Time amoxicillin [AMOXICILLIN] Allergy Intermediate SKIN RASH Verified 02/15/24 12:34 egg [EGGS] Allergy Intermediate HIVES, Verified 02/15/24 12:34 VOMITING Penicillins [PENICILLINS] Allergy Intermediate SKIN RASH Verified 02/15/24 12:34 Sulfa (Sulfonamide Allergy Intermediate SKIN RASH Verified 02/15/24 12:34 Antibiotics) [SULFA (SULFONAMIDE ANTIBIOTICS)] trimethoprim [TRIMETHOPRIM] Allergy Intermediate SKIN RASH Verified 02/15/24 12:34 penicillin V Allergy Unknown Unknown Verified 02/15/24 12:34 haloperidol [From Haldol] Allergy Unknown Verified 02/15/24 12:34 Latex, Natural Rubber Allergy Unknown Verified 02/15/24 12:34 methylprednisolone Allergy Unknown Verified 02/15/24 12:34 [From Solu-Medrol] penicillin Allergy Unknown Unknown Uncoded 10/10/20 14:35 sultamicillin Allergy Unknown Unknown Uncoded 10/10/20 14:35 trimethoprim Allergy Unknown Unknown Uncoded 10/10/20 14:35 Assessment & Plan Assessment & Plan (1) Encounter for staple removal: Status: Acute Code(s): Z48.02 - Encounter for removal of sutures Assessment and Plan: s/p SB resection admitted for behavioral issues good GI fumctiom looks well abd soft, incision clean, wellhealed kelli removed seen and examined independently 58-year-old male with history of schizophrenia, insulin-dependent type 2 diabetes, hypothyroidism, asthma/COPD overlap, hyperlipidemia admitted to adult Psychiatry who is 2 weeks s/p ex lap, with resection of about 220 cm small bladder with reanastomosis for high grade SBO. He is doing well post operatively. His abdomen is benign and incision clean, umbilical wound opening healing well. His kelli were removed. (2) Traumatic brain injury: Status: Acute Code(s): S06.9X9A - Unspecified intracranial injury with loss of consciousness of unspecified duration, initial encounter (3) Schizophrenia: Status: Acute Code(s): F20.9 - Schizophrenia, unspecified (4) Diabetes mellitus type 2 in nonobese: Status: Acute Code(s): E11.9 - Type 2 diabetes mellitus without complications Plan 03/03: restart prior outpt regimen with the exception of modified insulin regimen. will need to monitor FSBS closely with resumption of metformin, adjust insulin accordingly. will not restart the following at full dose: gabapentin (600 TID), metformin (1000 BIDWM), flomax (0.8 QHS), clozaril (unclear). will titrate those medications back toward prior outpt dosing. mainstay of psychiatric regimen will be the titration of clozapine back to therapeutic dosing. s/p TBI with impaired cognitive and memory function; keep in mind when considering various therapeutic options. medical problems as per hosptialist note otherwise. 03/04: increase gabapentin to outpt dose of 600 TID. increase tamsulosin to outpt dose of 0.8 QHS. titrate clozapine to 75 mg QHS (goal of 75/200). continue metformin 500 BID, consult with hospitalist re insulin dosing. 03/05: gradual improvement day by day. continue clozaril titration, 100 mg tonight. 03/06: continue clozaril titration, to 125 mg tonight. continue over w/e as tolerated, 25 mg per night. colace 100 BID added for constipation. case d/w dr. torres of GI. brian recommended colace for constipation. noted that per surgical report, bowel obstruction was caused by torsion around mesentery which is not c/w clozaril-mediated bowel obstruction. 03/07: Titrate Clozari as tolerated. Reason for continued inpatient stay Substantial Risk for: inability to function and rapid decompensation Time Spent With Patient Time: Total time managing care of this patient today ____ minutes.
[2024-03-07 22:36] LABS: Glucose, Whole Blood 195 mg/dL (60-115)
[2024-03-07] MEDS: Tamsulosin HCL 0.4 MG CAPSULE 0.8 MG PO (22:44)
[2024-03-07] MEDS: Atorvastatin Calcium 40 MG TABLET PO (22:45)
[2024-03-07] MEDS: cloZAPine 100 MG TABLET PO (22:45)
[2024-03-07] MEDS: traZODone HCL 50 MG TABLET PO (22:45)
[2024-03-07] MEDS: fluPHENAZine HCl 1 MG TABLET PO (22:45)
[2024-03-07] MEDS: cloZAPine 25 MG TABLET PO (22:45)
[2024-03-07] MEDS: Insulin Glargine,Hum.rec.anlog 100 UNIT/ML 10 ML VIAL 15 UNIT SUBCUT (22:55)
[2024-03-08] MEDS: Levothyroxine Sodium 150 MCG TABLET PO (06:47)
[2024-03-08 08:14] LABS: Glucose, Whole Blood 163 mg/dL (60-115)
[2024-03-08 08:25] VITALS: BP 94/48; PULSE 69; RESP 20; TEMP 37.3; O2SAT 93
[2024-03-08] MEDS: Insulin Lispro 100 UNIT/ML 3 ML VIAL SUBCUT ×4 (08:40→22:29)
[2024-03-08] MEDS: Nicotine 7 MG PATCH.TD24 TRANSDERMA (08:41)
[2024-03-08] MEDS: metFORMIN HCl 500 MG TABLET PO ×2 (08:41→17:06)
[2024-03-08] MEDS: Gabapentin 300 MG CAPSULE 600 MG PO ×3 (08:43→22:25)
[2024-03-08] MEDS: Loratadine 10 MG TABLET PO (08:44)
[2024-03-08] MEDS: Lithium Carbonate ER 450 MG TABLET.ER PO ×2 (08:44→22:25)
[2024-03-08] MEDS: Lidocaine 4 % Patch ADH..PATCH 1 PATCH TRANSDERMA (08:46)
[2024-03-08 08:50] VITALS: BP 117/56; PULSE 76; O2SAT 98
[2024-03-08 08:52] VITALS: BP 117/56; PULSE 76
[2024-03-08] MEDS: atenoloL 25 MG TABLET PO (08:52)
[2024-03-08] MEDS: Fluticasone Propionate Nasal 16 GM SPRAY 1 SPRAY NOSTRIL-B (08:55)
[2024-03-08] MEDS: Fluticasone/Umeclidinium/Vilanterol 100/62.5/25 BLST.W.DEV 1 PUFF INHALE (08:55)
--- NOTE | 2024-03-08 09:26 | P.PNPSI_ITS ---
Subjective Subjective Date of Service: 03/08/24 Reason For Visit: Unspecified Schizophrenia Spectrum and other psych Interim History: [place] self dialoguing loudly in his room. He stops when T/W enters the room. Pleasant and polite on approach. [place] He reports he would like his Clozapine increased to up to 900 mg. Explained that titration has to be gradual. He talks about doctors took my sexuality. I want my sexuality back. They kept taking me off my medications He reported to RN he talks to the devil. Somewhat pressured. Continues disorganized, delusional. He is visible on the unit. denies AH but RIS. eating well. Denies SI. Review of Systems Review of Systems General: No fevers, malaise, unintentional weight loss HEENT: No blurred vision, diplopia. No sore throat, nasal congestion, rhinorrhea, sinus pain, ear pain Cardiovascular: No chest pain, palpitations, or leg edema Respiratory: No shortness of breath, wheezing, cough GI: No abdominal pain, nausea, vomiting, diarrhea, constipation, melena, hematochezia : No dysuria, hematuria, increased urinary frequency, decreased urinary output MSK: No myalgia, back pain Neuro: No headaches, weakness, paresthesias Skin: No rashes. +Ulcer R great toe Constitutional: Denies chills and Denies fever(s) Gastrointestinal: Reports as per HPI Skin/Breast: Denies rash Mental Status Exam Mental Status Exam Narrative: adequately dressed and groomed, cooperative with interview, no PMA/PMR, speech generally nml rate, amount, loudness, latency. somewhat reduced tone. thoughts mostly linear, some logical, others not.. paranoid delusions. affect constricted, normo-intense, non-labile. no SI/SIBI/HI/AVH expressed. Diagnostics Vital Signs (24Hr): Vital Signs - 24 hr 03/07/24 19:37 03/08/24 08:25 03/08/24 08:52 Temperature 98.5 F 99.1 F Pulse Rate 79 69 76 Respiratory Rate 16 20 Blood Pressure 131/58 L 94/48 L 117/56 L Pulse Oximetry 97 93 Oxygen Delivery Method Room Air Room Air BMI result Body Mass Index 21.1 Labs 03/04/24 08:33 Labs: Laboratory Results - last 48 hr 03/06/24 03/06/24 03/06/24 11:55 16:35 22:02 POC Glucose 110 207 H 171 H 03/07/24 03/07/24 03/07/24 08:43 12:24 17:17 POC Glucose 112 193 H 184 H 03/07/24 03/08/24 22:31 08:09 POC Glucose 195 H 163 H Medications Medications Current Medications Acetaminophen (Acetaminophen 325 Mg Tablet) 650 mg PO Q6H PRN PRN Reason: Headache/Pain Mild Scale (1-3) Last Admin: 03/05/24 08:31 Dose: 650 mg Al Hydroxide/Mg Hydroxide (Magnesium Hydrox/Alum Hydrox 30 Ml Oral.Susp) 30 ml PO Q6H PRN PRN Reason: Heartburn/Nausea Albuterol Sulfate (Albuterol Sulfate 90 Mcg 8 Gm Inhaler) 2 puff INHALE RQ4H PRN PRN Reason: Shortness of Breath Atenolol (Atenolol 25 Mg Tablet) 25 mg PO DAILY [facility]; Protocol Last Admin: 03/08/24 08:52 Dose: 25 mg Atorvastatin Calcium (Atorvastatin Calcium 40 Mg Tablet) 40 mg PO BEDTIME [facility] Last Admin: 03/07/24 22:45 Dose: 40 mg Clozapine (Clozapine 25 Mg Tablet) 150 mg PO BEDTIME [facility] Docusate Sodium (Docusate Sodium 100 Mg Capsule) 100 mg PO BID [facility] Last Admin: 03/07/24 22:55 Dose: Not Given Fluphenazine HCl (Fluphenazine Hcl 1 Mg Tablet) 1 mg PO BEDTIME [facility] Last Admin: 03/07/24 22:45 Dose: 1 mg Fluticasone Propionate (Fluticasone Propionate Nasal 16 Gm [place]) 1 spray NOSTRIL-B DAILY [facility] Last Admin: 03/08/24 08:55 Dose: 1 spray Fluticasone/Umeclidinium/Vilanterol (Fluticasone/Umeclidinium/Vilanterol 100/62.5/25 Blst.W.Dev) 1 puff INHALE RDAILY [facility] Last Admin: 03/08/24 08:55 Dose: 1 puff Gabapentin (Gabapentin 300 Mg Capsule) 600 mg PO TID [facility] Last Admin: 03/08/24 08:43 Dose: 600 mg Glucose (Glucose Gel 15 Gm Gel..Gram.) 15 gm PO Q15M PRN; Protocol PRN Reason: per Hypoglycemia Standing Ord. Hydroxyzine HCl (Hydroxyzine Hcl 25 Mg Tablet) 25 mg PO Q6H PRN PRN Reason: Anxiety Last Admin: 03/07/24 16:52 Dose: 25 mg Dextrose (D10) 250 mls @ 750 mls/hr IV Q15M PRN; Protocol PRN Reason: per Hypoglycemia Standing Ord. Insulin Glargine (Insulin Glargine,Hum.Rec.Anlog 100 Unit/Ml 10 Ml Vial) 15 unit SUBCUT BEDTIME [facility] Last Admin: 03/07/24 22:55 Dose: 15 unit Insulin Human Lispro (Insulin Lispro 100 Unit/Ml 3 Ml Vial) 0 unit SUBCUT QIDACHS [facility]; Protocol Last Admin: 03/08/24 08:40 Dose: 2 unit Levothyroxine Sodium (Levothyroxine Sodium 150 Mcg Tablet) 150 mcg PO DAILY@0600 [facility] Last Admin: 03/08/24 06:47 Dose: 150 mcg Lidocaine (Lidocaine 4 % Patch Adh..Patch) 1 patch TRANSDERMA DAILY [facility]; Protocol Last Admin: 03/08/24 08:46 Dose: 1 patch [place] Carbonate ([place] Carbonate Er 450 Mg Tablet.Er) 450 mg PO BID [facility] Last Admin: 03/08/24 08:44 Dose: 450 mg Loratadine (Loratadine 10 Mg Tablet) 10 mg PO DAILY [facility] Last Admin: 03/08/24 08:44 Dose: 10 mg Magnesium Hydroxide (Milk Of Magnesia 30 Ml Oral.Susp) 30 ml PO DAILY PRN PRN Reason: Constipation Metformin HCl (Metformin Hcl 500 Mg Tablet) 500 mg PO BIDWM [facility] Last Admin: 03/08/24 08:41 Dose: 500 mg Nicotine (Nicotine 7 Mg Patch.Td24) 7 mg TRANSDERMA DAILY [facility] Last Admin: 03/08/24 08:41 Dose: 7 mg Nicotine Polacrilex (Nicotine Polacrilex Lozenge 2 Mg Lozenge) 2 mg BUCCAL Q2H PRN PRN Reason: Nicotine Cravings Last Admin: 03/07/24 09:58 Dose: 2 mg Tamsulosin HCl (Tamsulosin Hcl 0.4 Mg Capsule) 0.8 mg PO BEDTIME [facility] Last Admin: 03/07/24 22:44 Dose: 0.8 mg Trazodone HCl (Trazodone Hcl 50 Mg Tablet) 50 mg PO BEDTIME MRX1 PRN PRN Reason: Insomnia Last Admin: 03/07/24 22:45 Dose: 50 mg Allergies Allergies Allergy/AdvReac Type Severity Reaction Status Date / Time amoxicillin [AMOXICILLIN] Allergy Intermediate SKIN RASH Verified 02/15/24 12:34 egg [EGGS] Allergy Intermediate HIVES, Verified 02/15/24 12:34 VOMITING Penicillins [PENICILLINS] Allergy Intermediate SKIN RASH Verified 02/15/24 12:34 Sulfa (Sulfonamide Allergy Intermediate SKIN RASH Verified 02/15/24 12:34 Antibiotics) [SULFA (SULFONAMIDE ANTIBIOTICS)] trimethoprim [TRIMETHOPRIM] Allergy Intermediate SKIN RASH Verified 02/15/24 12:34 penicillin V Allergy Unknown Unknown Verified 02/15/24 12:34 haloperidol [From Haldol] Allergy Unknown Verified 02/15/24 12:34 Latex, Natural Rubber Allergy Unknown Verified 02/15/24 12:34 methylprednisolone Allergy Unknown Verified 02/15/24 12:34 [From Solu-Medrol] penicillin Allergy Unknown Unknown Uncoded 10/10/20 14:35 sultamicillin Allergy Unknown Unknown Uncoded 10/10/20 14:35 trimethoprim Allergy Unknown Unknown Uncoded 10/10/20 14:35 Assessment & Plan Assessment & Plan (1) Encounter for staple removal: Status: Acute Code(s): Z48.02 - Encounter for removal of sutures Assessment and Plan: s/p SB resection admitted for behavioral issues good GI fumctiom looks well abd soft, incision clean, wellhealed kelli removed seen and examined independently 58-year-old male with history of schizophrenia, insulin-dependent type 2 diabetes, hypothyroidism, asthma/COPD overlap, hyperlipidemia admitted to adult Psychiatry who is 2 weeks s/p ex lap, with resection of about 220 cm small bladder with reanastomosis for high grade SBO. He is doing well post operatively. His abdomen is benign and incision clean, umbilical wound opening healing well. His kelli were removed. (2) Traumatic brain injury: Status: Acute Code(s): S06.9X9A - Unspecified intracranial injury with loss of consciousness of unspecified duration, initial encounter (3) Schizophrenia: Status: Acute Code(s): F20.9 - Schizophrenia, unspecified (4) Diabetes mellitus type 2 in nonobese: Status: Acute Code(s): E11.9 - Type 2 diabetes mellitus without complications Plan 03/03: restart prior outpt regimen with the exception of modified insulin regimen. will need to monitor FSBS closely with resumption of metformin, adjust insulin accordingly. will not restart the following at full dose: gabapentin (600 TID), metformin (1000 BIDWM), flomax (0.8 QHS), clozaril (unclear). will titrate those medications back toward prior outpt dosing. mainstay of psychiatric regimen will be the titration of clozapine back to therapeutic dosing. s/p TBI with impaired cognitive and memory function; keep in mind when considering various therapeutic options. medical problems as per hosptialist note otherwise. 03/04: increase gabapentin to outpt dose of 600 TID. increase tamsulosin to outpt dose of 0.8 QHS. titrate clozapine to 75 mg QHS (goal of 75/200). continue metformin 500 BID, consult with hospitalist re insulin dosing. 03/05: gradual improvement day by day. continue clozaril titration, 100 mg tonight. 03/06: continue clozaril titration, to 125 mg tonight. continue over w/e as tolerated, 25 mg per night. colace 100 BID added for constipation. case d/w dr. torres of GI. brian recommended colace for constipation. noted that per surgical report, bowel obstruction was caused by torsion around mesentery which is not c/w clozaril-mediated bowel obstruction. 03/07: Titrate Clozari as tolerated. 03/08: Titrate Clozari as tolerated. Otherwise continue current management and treatment plan. Reason for continued inpatient stay Substantial Risk for: harm to self, inability to function and rapid decompensation Time Spent With Patient Time: Total time managing care of this patient today ____ minutes.
[2024-03-08] MEDS: Nicotine Polacrilex Lozenge 2 MG LOZENGE BUCCAL ×2 (09:36→22:27)
[2024-03-08 11:57] LABS: Glucose, Whole Blood 201 mg/dL (60-115)
[2024-03-08 17:14] LABS: Glucose, Whole Blood 245 mg/dL (60-115)
[2024-03-08] MEDS: Acetaminophen 325 MG TABLET 650 MG PO (17:53)
[2024-03-08 21:26] LABS: Glucose, Whole Blood 239 mg/dL (60-115)
[2024-03-08 22:20] VITALS: BP 112/56; PULSE 73; RESP 16; TEMP 37.1; O2SAT 100
[2024-03-08] MEDS: Tamsulosin HCL 0.4 MG CAPSULE 0.8 MG PO (22:25)
[2024-03-08] MEDS: fluPHENAZine HCl 1 MG TABLET PO (22:26)
[2024-03-08] MEDS: cloZAPine 25 MG TABLET 150 MG PO (22:26)
[2024-03-08] MEDS: Atorvastatin Calcium 40 MG TABLET PO (22:26)
[2024-03-08] MEDS: Insulin Glargine,Hum.rec.anlog 100 UNIT/ML 10 ML VIAL 15 UNIT SUBCUT (22:28)
[2024-03-09] MEDS: Levothyroxine Sodium 150 MCG TABLET PO (05:03)
--- NOTE | 2024-03-09 05:14 | PC.NURSE ---
David had 1 episode of urinary incontinence. Bed linens changed and patient showered and put on clean clothing.
[2024-03-09 07:47] VITALS: BP 95/53; PULSE 82; RESP 16; TEMP 36.7; O2SAT 95
[2024-03-09 08:12] LABS: Glucose, Whole Blood 142 mg/dL (60-115)
[2024-03-09 08:21] LABS: Neut%MD 68.2 %; Neutrophils Absolute Auto 5.7 x10*3/uL (2.0-8.3); WBCANC 8.4 X10*3/uL
[2024-03-09 08:48] LABS: Creatinine Clr Calc Pharmacy 110.2; Estimated Glomerular Filt Rate > 60
[2024-03-09] MEDS: Nicotine 7 MG PATCH.TD24 TRANSDERMA (08:55)
[2024-03-09] MEDS: Loratadine 10 MG TABLET PO (08:56)
[2024-03-09] MEDS: Lithium Carbonate ER 450 MG TABLET.ER PO ×2 (08:57→21:33)
[2024-03-09] MEDS: Gabapentin 300 MG CAPSULE 600 MG PO ×3 (08:57→21:31)
[2024-03-09] MEDS: metFORMIN HCl 500 MG TABLET PO ×2 (08:57→17:42)
[2024-03-09] MEDS: Fluticasone Propionate Nasal 16 GM SPRAY 1 SPRAY NOSTRIL-B (09:08)
[2024-03-09] MEDS: Fluticasone/Umeclidinium/Vilanterol 100/62.5/25 BLST.W.DEV 1 PUFF INHALE (09:08)
[2024-03-09 12:20] LABS: Glucose, Whole Blood 302 mg/dL (60-115)
[2024-03-09] MEDS: Insulin Lispro 100 UNIT/ML 3 ML VIAL SUBCUT ×3 (12:44→21:28)
[2024-03-09] MEDS: Nicotine Polacrilex Lozenge 2 MG LOZENGE BUCCAL ×3 (14:07→21:40)
--- NOTE | 2024-03-09 16:04 | HO.PSYCHPN ---
Subjective Subjective Date of Service: 03/09/24 Reason For Visit: Unspecified Schizophrenia Spectrum and other psych Interim History: remains symptomatic, gradually improving. per staff, not attending groups. anx/dep 10. clozapine increased over w/e. +RIS loudly over w/e. +AH of the devil. time travel. [facility] saturday and saturday. Mental Status Exam Mental Status Exam Narrative: adequately dressed and groomed, cooperative with interview, no PMA/PMR, speech generally nml rate, amount, loudness, latency. somewhat reduced tone. thoughts mostly linear, some logical, others not. paranoid delusions. affect constricted, normo-intense, non-labile. no SI/SIBI/HI/AVH expressed. Diagnostics Vital Signs (24Hr): Vital Signs - 24 hr 03/08/24 22:20 03/09/24 07:47 Temperature 98.7 F 98.0 F Pulse Rate 73 82 Respiratory Rate 16 16 Blood Pressure 112/56 L 95/53 L Pulse Oximetry 100 95 Oxygen Delivery Method Room Air Room Air BMI result Body Mass Index 21.1 Labs 03/04/24 08:33 03/09/24 08:14 Labs: Laboratory Results - last 48 hr 03/07/24 03/07/24 03/08/24 17:17 22:31 08:09 Absolute Neuts (auto) Creatinine Estim Creat Clear Calc Estimated GFR POC Glucose 184 H 195 H 163 H 03/08/24 03/08/24 03/08/24 11:52 17:09 21:20 Absolute Neuts (auto) Creatinine Estim Creat Clear Calc Estimated GFR POC Glucose 201 H 245 H 239 H 03/09/24 03/09/24 03/09/24 08:08 08:14 12:16 Absolute Neuts (auto) 5.7 Creatinine 0.75 Estim Creat Clear Calc 110.2 Estimated GFR > 60 POC Glucose 142 H 302 H Medications Medications Current Medications Acetaminophen (Acetaminophen 325 Mg Tablet) 650 mg PO Q6H PRN PRN Reason: Headache/Pain Mild Scale (1-3) Last Admin: 03/08/24 17:53 Dose: 650 mg Al Hydroxide/Mg Hydroxide (Magnesium Hydrox/Alum Hydrox 30 Ml Oral.Susp) 30 ml PO Q6H PRN PRN Reason: Heartburn/Nausea Albuterol Sulfate (Albuterol Sulfate 90 Mcg 8 Gm Inhaler) 2 puff INHALE RQ4H PRN PRN Reason: Shortness of Breath Atenolol (Atenolol 25 Mg Tablet) 25 mg PO DAILY [facility]; Protocol Last Admin: 03/09/24 08:58 Dose: Not Given Atorvastatin Calcium (Atorvastatin Calcium 40 Mg Tablet) 40 mg PO BEDTIME [facility] Last Admin: 03/08/24 22:26 Dose: 40 mg Clozapine (Clozapine 25 Mg Tablet) 175 mg PO BEDTIME [facility] Docusate Sodium (Docusate Sodium 100 Mg Capsule) 100 mg PO BID PRN PRN Reason: constipation Fluphenazine HCl (Fluphenazine Hcl 1 Mg Tablet) 1 mg PO BEDTIME [facility] Last Admin: 03/08/24 22:26 Dose: 1 mg Fluticasone Propionate (Fluticasone Propionate Nasal 16 Gm [place]) 1 spray NOSTRIL-B DAILY [facility] Last Admin: 03/09/24 09:08 Dose: 1 spray Fluticasone/Umeclidinium/Vilanterol (Fluticasone/Umeclidinium/Vilanterol 100/62.5/25 Blst.W.Dev) 1 puff INHALE RDAILY [facility] Last Admin: 03/09/24 09:08 Dose: 1 puff Gabapentin (Gabapentin 300 Mg Capsule) 600 mg PO TID [facility] Last Admin: 03/09/24 14:06 Dose: 600 mg Glucose (Glucose Gel 15 Gm Gel..Gram.) 15 gm PO Q15M PRN; Protocol PRN Reason: per Hypoglycemia Standing Ord. Hydroxyzine HCl (Hydroxyzine Hcl 25 Mg Tablet) 25 mg PO Q6H PRN PRN Reason: Anxiety Last Admin: 03/07/24 16:52 Dose: 25 mg Dextrose (D10) 250 mls @ 750 mls/hr IV Q15M PRN; Protocol PRN Reason: per Hypoglycemia Standing Ord. Insulin Glargine (Insulin Glargine,Hum.Rec.Anlog 100 Unit/Ml 10 Ml Vial) 15 unit SUBCUT BEDTIME [facility] Last Admin: 03/08/24 22:28 Dose: 15 unit Insulin Human Lispro (Insulin Lispro 100 Unit/Ml 3 Ml Vial) 0 unit SUBCUT QIDACHS [facility]; Protocol Last Admin: 03/09/24 12:44 Dose: 8 unit Levothyroxine Sodium (Levothyroxine Sodium 150 Mcg Tablet) 150 mcg PO DAILY@0600 [facility] Last Admin: 03/09/24 05:03 Dose: 150 mcg Lidocaine (Lidocaine 4 % Patch Adh..Patch) 1 patch TRANSDERMA DAILY [facility]; Protocol Last Admin: 03/09/24 09:02 Dose: Not Given [place] Carbonate ([place] Carbonate Er 450 Mg Tablet.Er) 450 mg PO BID [facility] Last Admin: 03/09/24 08:57 Dose: 450 mg Loratadine (Loratadine 10 Mg Tablet) 10 mg PO DAILY [facility] Last Admin: 03/09/24 08:56 Dose: 10 mg Magnesium Hydroxide (Milk Of Magnesia 30 Ml Oral.Susp) 30 ml PO DAILY PRN PRN Reason: Constipation Metformin HCl (Metformin Hcl 500 Mg Tablet) 500 mg PO BIDWM [facility] Last Admin: 03/09/24 08:57 Dose: 500 mg Nicotine (Nicotine 7 Mg Patch.Td24) 7 mg TRANSDERMA DAILY [facility] Last Admin: 03/09/24 08:55 Dose: 7 mg Nicotine Polacrilex (Nicotine Polacrilex Lozenge 2 Mg Lozenge) 2 mg BUCCAL Q2H PRN PRN Reason: Nicotine Cravings Last Admin: 03/09/24 14:07 Dose: 2 mg Tamsulosin HCl (Tamsulosin Hcl 0.4 Mg Capsule) 0.8 mg PO BEDTIME [facility] Last Admin: 03/08/24 22:25 Dose: 0.8 mg Trazodone HCl (Trazodone Hcl 50 Mg Tablet) 50 mg PO BEDTIME MRX1 PRN PRN Reason: Insomnia Last Admin: 03/07/24 22:45 Dose: 50 mg Allergies Allergies Allergy/AdvReac Type Severity Reaction Status Date / Time amoxicillin [AMOXICILLIN] Allergy Intermediate SKIN RASH Verified 02/15/24 12:34 egg [EGGS] Allergy Intermediate HIVES, Verified 02/15/24 12:34 VOMITING Penicillins [PENICILLINS] Allergy Intermediate SKIN RASH Verified 02/15/24 12:34 Sulfa (Sulfonamide Allergy Intermediate SKIN RASH Verified 02/15/24 12:34 Antibiotics) [SULFA (SULFONAMIDE ANTIBIOTICS)] trimethoprim [TRIMETHOPRIM] Allergy Intermediate SKIN RASH Verified 02/15/24 12:34 penicillin V Allergy Unknown Unknown Verified 02/15/24 12:34 haloperidol [From Haldol] Allergy Unknown Verified 02/15/24 12:34 Latex, Natural Rubber Allergy Unknown Verified 02/15/24 12:34 methylprednisolone Allergy Unknown Verified 02/15/24 12:34 [From Solu-Medrol] penicillin Allergy Unknown Unknown Uncoded 10/10/20 14:35 sultamicillin Allergy Unknown Unknown Uncoded 10/10/20 14:35 trimethoprim Allergy Unknown Unknown Uncoded 10/10/20 14:35 Assessment & Plan Assessment & Plan (1) Encounter for staple removal: Status: Acute Code(s): Z48.02 - Encounter for removal of sutures Assessment and Plan: s/p SB resection admitted for behavioral issues good GI fumctiom looks well abd soft, incision clean, wellhealed kelli removed seen and examined independently 58-year-old male with history of schizophrenia, insulin-dependent type 2 diabetes, hypothyroidism, asthma/COPD overlap, hyperlipidemia admitted to adult Psychiatry who is 2 weeks s/p ex lap, with resection of about 220 cm small bladder with reanastomosis for high grade SBO. He is doing well post operatively. His abdomen is benign and incision clean, umbilical wound opening healing well. His kelli were removed. (2) Traumatic brain injury: Status: Acute Code(s): S06.9X9A - Unspecified intracranial injury with loss of consciousness of unspecified duration, initial encounter (3) Schizophrenia: Status: Acute Code(s): F20.9 - Schizophrenia, unspecified (4) Diabetes mellitus type 2 in nonobese: Status: Acute Code(s): E11.9 - Type 2 diabetes mellitus without complications Plan 03/03: restart prior outpt regimen with the exception of modified insulin regimen. will need to monitor FSBS closely with resumption of metformin, adjust insulin accordingly. will not restart the following at full dose: gabapentin (600 TID), metformin (1000 BIDWM), flomax (0.8 QHS), clozaril (unclear). will titrate those medications back toward prior outpt dosing. mainstay of psychiatric regimen will be the titration of clozapine back to therapeutic dosing. s/p TBI with impaired cognitive and memory function; keep in mind when considering various therapeutic options. medical problems as per hosptialist note otherwise. 03/04: increase gabapentin to outpt dose of 600 TID. increase tamsulosin to outpt dose of 0.8 QHS. titrate clozapine to 75 mg QHS (goal of 75/200). continue metformin 500 BID, consult with hospitalist re insulin dosing. 03/05: gradual improvement day by day. continue clozaril titration, 100 mg tonight. 03/06: continue clozaril titration, to 125 mg tonight. continue over w/e as tolerated, 25 mg per night. colace 100 BID added for constipation. case d/w dr. torres of GI. brian recommended colace for constipation. noted that per surgical report, bowel obstruction was caused by torsion around mesentery which is not c/w clozaril-mediated bowel obstruction. 03/07: Titrate Clozari as tolerated. 03/08: Titrate Clozari as tolerated. Otherwise continue current management and treatment plan. 03/09: increase clozaril to 175 mg tonight. gradually improving. Reason for continued inpatient stay Substantial Risk for: inability to function and rapid decompensation Time Spent With Patient Time: Total time managing care of this patient today __25__ minutes.
[2024-03-09 17:28] LABS: Glucose, Whole Blood 194 mg/dL (60-115)
[2024-03-09 20:00] VITALS: BP 128/69; PULSE 72; RESP 16; TEMP 36.8; O2SAT 100
[2024-03-09 20:56] LABS: Glucose, Whole Blood 171 mg/dL (60-115)
[2024-03-09] MEDS: Insulin Glargine,Hum.rec.anlog 100 UNIT/ML 10 ML VIAL 15 UNIT SUBCUT (21:29)
[2024-03-09] MEDS: cloZAPine 25 MG TABLET 175 MG PO (21:31)
[2024-03-09] MEDS: Tamsulosin HCL 0.4 MG CAPSULE 0.8 MG PO (21:32)
[2024-03-09] MEDS: Atorvastatin Calcium 40 MG TABLET PO (21:34)
[2024-03-09] MEDS: fluPHENAZine HCl 1 MG TABLET PO (21:34)
[2024-03-10] MEDS: Levothyroxine Sodium 150 MCG TABLET PO (06:26)
[2024-03-10 07:59] LABS: Glucose, Whole Blood 145 mg/dL (60-115)
[2024-03-10 08:00] VITALS: BP 98/47; PULSE 66; RESP 18; TEMP 36.8; O2SAT 94
[2024-03-10] MEDS: Nicotine Polacrilex Lozenge 2 MG LOZENGE BUCCAL ×5 (08:03→22:18)
[2024-03-10] MEDS: Fluticasone Propionate Nasal 16 GM SPRAY 1 SPRAY NOSTRIL-B (08:31)
[2024-03-10] MEDS: Nicotine 7 MG PATCH.TD24 TRANSDERMA (08:32)
[2024-03-10] MEDS: Fluticasone/Umeclidinium/Vilanterol 100/62.5/25 BLST.W.DEV 1 PUFF INHALE (08:32)
[2024-03-10] MEDS: Gabapentin 300 MG CAPSULE 600 MG PO ×3 (08:32→22:10)
[2024-03-10] MEDS: metFORMIN HCl 500 MG TABLET PO ×2 (08:33→17:26)
[2024-03-10] MEDS: Lithium Carbonate ER 450 MG TABLET.ER PO ×2 (08:33→22:12)
[2024-03-10] MEDS: Loratadine 10 MG TABLET PO (08:33)
[2024-03-10] MEDS: Lidocaine 4 % Patch ADH..PATCH 1 PATCH TRANSDERMA (08:35)
[2024-03-10 08:38] VITALS: BP 98/47; PULSE 66
[2024-03-10 12:52] LABS: Glucose, Whole Blood 294 mg/dL (60-115)
[2024-03-10] MEDS: Insulin Lispro 100 UNIT/ML 3 ML VIAL SUBCUT ×2 (12:59→17:26)
--- NOTE | 2024-03-10 14:22 | P.PNPSI_ITS ---
Subjective Subjective Date of Service: 03/10/24 Reason For Visit: Unspecified Schizophrenia Spectrum and other psych Interim History: calm, cooperative, in good spirits, reports he is feeling better in general. AH sometimes good, sometimes bad. asking for in-person therapist outpt. per staff, dep 5 anx 5. +meds. +grps. AVH last NOC. asking for clozapine increases. Mental Status Exam Mental Status Exam Narrative: adequately dressed and groomed, cooperative with interview, no PMA/PMR, speech generally nml rate, amount, loudness, latency. somewhat reduced tone. thoughts mostly linear, some logical, others not. paranoid delusions. affect constricted, normo-intense, non-labile. AH someties good, sometimes bad. no SI/SIBI/HI/VH expressed. Diagnostics Vital Signs (24Hr): Vital Signs - 24 hr 03/09/24 20:00 03/10/24 08:00 03/10/24 08:38 Temperature 98.3 F 98.3 F Pulse Rate 72 66 66 Respiratory Rate 16 18 Blood Pressure 128/69 98/47 L 98/47 L Pulse Oximetry 100 94 Oxygen Delivery Method Room Air Room Air BMI result Body Mass Index 21.1 Labs 03/04/24 08:33 03/09/24 08:14 Labs: Laboratory Results - last 48 hr 03/08/24 03/08/24 03/09/24 17:09 21:20 08:08 Absolute Neuts (auto) Creatinine Estim Creat Clear Calc Estimated GFR POC Glucose 245 H 239 H 142 H 03/09/24 03/09/24 03/09/24 08:14 12:16 17:23 Absolute Neuts (auto) 5.7 Creatinine 0.75 Estim Creat Clear Calc 110.2 Estimated GFR > 60 POC Glucose 302 H 194 H 03/09/24 03/10/24 03/10/24 20:51 07:49 12:48 Absolute Neuts (auto) Creatinine Estim Creat Clear Calc Estimated GFR POC Glucose 171 H 145 H 294 H Medications Medications Current Medications Acetaminophen (Acetaminophen 325 Mg Tablet) 650 mg PO Q6H PRN PRN Reason: Headache/Pain Mild Scale (1-3) Last Admin: 03/08/24 17:53 Dose: 650 mg Al Hydroxide/Mg Hydroxide (Magnesium Hydrox/Alum Hydrox 30 Ml Oral.Susp) 30 ml PO Q6H PRN PRN Reason: Heartburn/Nausea Albuterol Sulfate (Albuterol Sulfate 90 Mcg 8 Gm Inhaler) 2 puff INHALE RQ4H PRN PRN Reason: Shortness of Breath Atenolol (Atenolol 25 Mg Tablet) 25 mg PO DAILY [facility]; Protocol Last Admin: 03/10/24 08:38 Dose: Not Given Atorvastatin Calcium (Atorvastatin Calcium 40 Mg Tablet) 40 mg PO BEDTIME [facility] Last Admin: 03/09/24 21:34 Dose: 40 mg Clozapine (Clozapine 100 Mg Tablet) 200 mg PO BEDTIME [facility] Docusate Sodium (Docusate Sodium 100 Mg Capsule) 100 mg PO BID PRN PRN Reason: constipation Fluphenazine HCl (Fluphenazine Hcl 1 Mg Tablet) 1 mg PO BEDTIME [facility] Last Admin: 03/09/24 21:34 Dose: 1 mg Fluticasone Propionate (Fluticasone Propionate Nasal 16 Gm [place]) 1 spray NOSTRIL-B DAILY [facility] Last Admin: 03/10/24 08:31 Dose: 1 spray Fluticasone/Umeclidinium/Vilanterol (Fluticasone/Umeclidinium/Vilanterol 100/62.5/25 Blst.W.Dev) 1 puff INHALE RDAILY [facility] Last Admin: 03/10/24 08:32 Dose: 1 puff Gabapentin (Gabapentin 300 Mg Capsule) 600 mg PO TID [facility] Last Admin: 03/10/24 08:32 Dose: 600 mg Glucose (Glucose Gel 15 Gm Gel..Gram.) 15 gm PO Q15M PRN; Protocol PRN Reason: per Hypoglycemia Standing Ord. Hydroxyzine HCl (Hydroxyzine Hcl 25 Mg Tablet) 25 mg PO Q6H PRN PRN Reason: Anxiety Last Admin: 03/07/24 16:52 Dose: 25 mg Dextrose (D10) 250 mls @ 750 mls/hr IV Q15M PRN; Protocol PRN Reason: per Hypoglycemia Standing Ord. Insulin Glargine (Insulin Glargine,Hum.Rec.Anlog 100 Unit/Ml 10 Ml Vial) 15 unit SUBCUT BEDTIME [facility] Last Admin: 03/09/24 21:29 Dose: 15 unit Insulin Human Lispro (Insulin Lispro 100 Unit/Ml 3 Ml Vial) 0 unit SUBCUT QIDACHS [facility]; Protocol Last Admin: 03/10/24 12:59 Dose: 6 unit Levothyroxine Sodium (Levothyroxine Sodium 150 Mcg Tablet) 150 mcg PO DAILY@0600 [facility] Last Admin: 03/10/24 06:26 Dose: 150 mcg Lidocaine (Lidocaine 4 % Patch Adh..Patch) 1 patch TRANSDERMA DAILY [facility]; Protocol Last Admin: 03/10/24 08:35 Dose: 1 patch [place] Carbonate ([place] Carbonate Er 450 Mg Tablet.Er) 450 mg PO BID [facility] Last Admin: 03/10/24 08:33 Dose: 450 mg Loratadine (Loratadine 10 Mg Tablet) 10 mg PO DAILY [facility] Last Admin: 03/10/24 08:33 Dose: 10 mg Magnesium Hydroxide (Milk Of Magnesia 30 Ml Oral.Susp) 30 ml PO DAILY PRN PRN Reason: Constipation Metformin HCl (Metformin Hcl 500 Mg Tablet) 500 mg PO BIDWM [facility] Last Admin: 03/10/24 08:33 Dose: 500 mg Nicotine (Nicotine 7 Mg Patch.Td24) 7 mg TRANSDERMA DAILY [facility] Last Admin: 03/10/24 08:32 Dose: 7 mg Nicotine Polacrilex (Nicotine Polacrilex Lozenge 2 Mg Lozenge) 2 mg BUCCAL Q2H PRN PRN Reason: Nicotine Cravings Last Admin: 03/10/24 12:21 Dose: 2 mg Tamsulosin HCl (Tamsulosin Hcl 0.4 Mg Capsule) 0.8 mg PO BEDTIME [facility] Last Admin: 03/09/24 21:32 Dose: 0.8 mg Trazodone HCl (Trazodone Hcl 50 Mg Tablet) 50 mg PO BEDTIME MRX1 PRN PRN Reason: Insomnia Last Admin: 03/07/24 22:45 Dose: 50 mg Allergies Allergies Allergy/AdvReac Type Severity Reaction Status Date / Time amoxicillin [AMOXICILLIN] Allergy Intermediate SKIN RASH Verified 02/15/24 12:34 egg [EGGS] Allergy Intermediate HIVES, Verified 02/15/24 12:34 VOMITING Penicillins [PENICILLINS] Allergy Intermediate SKIN RASH Verified 02/15/24 12:34 Sulfa (Sulfonamide Allergy Intermediate SKIN RASH Verified 02/15/24 12:34 Antibiotics) [SULFA (SULFONAMIDE ANTIBIOTICS)] trimethoprim [TRIMETHOPRIM] Allergy Intermediate SKIN RASH Verified 02/15/24 12:34 penicillin V Allergy Unknown Unknown Verified 02/15/24 12:34 haloperidol [From Haldol] Allergy Unknown Verified 02/15/24 12:34 Latex, Natural Rubber Allergy Unknown Verified 02/15/24 12:34 methylprednisolone Allergy Unknown Verified 02/15/24 12:34 [From Solu-Medrol] penicillin Allergy Unknown Unknown Uncoded 10/10/20 14:35 sultamicillin Allergy Unknown Unknown Uncoded 10/10/20 14:35 trimethoprim Allergy Unknown Unknown Uncoded 10/10/20 14:35 Assessment & Plan Assessment & Plan (1) Encounter for staple removal: Status: Acute Code(s): Z48.02 - Encounter for removal of sutures Assessment and Plan: s/p SB resection admitted for behavioral issues good GI fumctiom looks well abd soft, incision clean, wellhealed kelli removed seen and examined independently 58-year-old male with history of schizophrenia, insulin-dependent type 2 diabetes, hypothyroidism, asthma/COPD overlap, hyperlipidemia admitted to adult Psychiatry who is 2 weeks s/p ex lap, with resection of about 220 cm small bladder with reanastomosis for high grade SBO. He is doing well post operatively. His abdomen is benign and incision clean, umbilical wound opening healing well. His kelli were removed. (2) Traumatic brain injury: Status: Acute Code(s): S06.9X9A - Unspecified intracranial injury with loss of consciousness of unspecified duration, initial encounter (3) Schizophrenia: Status: Acute Code(s): F20.9 - Schizophrenia, unspecified (4) Diabetes mellitus type 2 in nonobese: Status: Acute Code(s): E11.9 - Type 2 diabetes mellitus without complications Plan 03/03: restart prior outpt regimen with the exception of modified insulin regimen. will need to monitor FSBS closely with resumption of metformin, adjust insulin accordingly. will not restart the following at full dose: gabapentin (600 TID), metformin (1000 BIDWM), flomax (0.8 QHS), clozaril (unclear). will titrate those medications back toward prior outpt dosing. mainstay of psychiatric regimen will be the titration of clozapine back to therapeutic dosing. s/p TBI with impaired cognitive and memory function; keep in mind when considering various therapeutic options. medical problems as per hosptialist note otherwise. 03/04: increase gabapentin to outpt dose of 600 TID. increase tamsulosin to outpt dose of 0.8 QHS. titrate clozapine to 75 mg QHS (goal of 75/200). continue metformin 500 BID, consult with hospitalist re insulin dosing. 03/05: gradual improvement day by day. continue clozaril titration, 100 mg tonight. 03/06: continue clozaril titration, to 125 mg tonight. continue over w/e as tolerated, 25 mg per night. colace 100 BID added for constipation. case d/w dr. torres of GI. brian recommended colace for constipation. noted that per surgical report, bowel obstruction was caused by torsion around mesentery which is not c/w clozaril-mediated bowel obstruction. 03/07: Titrate Clozari as tolerated. 03/08: Titrate Clozari as tolerated. Otherwise continue current management and treatment plan. 03/09: increase clozaril to 175 mg tonight. gradually improving. 03/10: mood clearly improved, AH sometimes good, sometimes bad. asking for in-person therapist. gradual improvement continues. Reason for continued inpatient stay Substantial Risk for: inability to function and rapid decompensation Time Spent With Patient Time: Total time managing care of this patient today __25__ minutes.
[2024-03-10] MEDS: Acetaminophen 325 MG TABLET 650 MG PO (15:21)
--- NOTE | 2024-03-10 15:24 | PC.NURSE ---
per provider ok to give Tylenol for 5/10 pain, outside of parameters
[2024-03-10 17:24] LABS: Glucose, Whole Blood 203 mg/dL (60-115)
[2024-03-10 20:00] VITALS: BP 130/61; PULSE 86; RESP 18; TEMP 37.2; O2SAT 96
[2024-03-10 20:51] LABS: Glucose, Whole Blood 118 mg/dL (60-115)
[2024-03-10] MEDS: cloZAPine 100 MG TABLET 200 MG PO (22:10)
[2024-03-10] MEDS: Tamsulosin HCL 0.4 MG CAPSULE 0.8 MG PO (22:11)
[2024-03-10] MEDS: Atorvastatin Calcium 40 MG TABLET PO (22:12)
[2024-03-10] MEDS: fluPHENAZine HCl 1 MG TABLET PO (22:12)
[2024-03-10] MEDS: Insulin Glargine,Hum.rec.anlog 100 UNIT/ML 10 ML VIAL 15 UNIT SUBCUT (22:13)
[2024-03-11] MEDS: Levothyroxine Sodium 150 MCG TABLET PO (06:20)
[2024-03-11 07:45] VITALS: BP 116/57; PULSE 94; RESP 22; TEMP 36.5; O2SAT 92
[2024-03-11 08:38] LABS: Glucose, Whole Blood 136 mg/dL (60-115)
[2024-03-11] MEDS: Nicotine 7 MG PATCH.TD24 TRANSDERMA (08:44)
[2024-03-11] MEDS: Fluticasone/Umeclidinium/Vilanterol 100/62.5/25 BLST.W.DEV 1 PUFF INHALE (08:44)
[2024-03-11] MEDS: metFORMIN HCl 500 MG TABLET PO ×2 (08:45→17:59)
[2024-03-11] MEDS: Gabapentin 300 MG CAPSULE 600 MG PO ×3 (08:45→22:02)
[2024-03-11] MEDS: Loratadine 10 MG TABLET PO (08:45)
[2024-03-11 08:46] VITALS: BP 116/57; PULSE 94
[2024-03-11] MEDS: atenoloL 25 MG TABLET PO (08:46)
[2024-03-11] MEDS: Lithium Carbonate ER 450 MG TABLET.ER PO ×2 (08:46→22:02)
[2024-03-11] MEDS: Fluticasone Propionate Nasal 16 GM SPRAY 1 SPRAY NOSTRIL-B (08:50)
[2024-03-11] MEDS: Nicotine Polacrilex Lozenge 2 MG LOZENGE BUCCAL ×5 (09:25→22:09)
[2024-03-11 12:54] LABS: Glucose, Whole Blood 222 mg/dL (60-115)
[2024-03-11] MEDS: Insulin Lispro 100 UNIT/ML 3 ML VIAL SUBCUT ×2 (13:02→18:00)
--- NOTE | 2024-03-11 16:16 | P.PNPSI_ITS ---
Subjective Subjective Date of Service: 03/11/24 Reason For Visit: Unspecified Schizophrenia Spectrum and other psych Interim History: calm, cooperative, complimentary of MD's care. states he is a little tired today, which he attributes to clozapine dosing increases. nevertheless, requests to continue titration upward. per staff, noted to have said, i am raulito. slept 8 hours. taking meds. Mental Status Exam Mental Status Exam Narrative: adequately dressed and groomed, cooperative with interview, no PMA/PMR, speech generally nml rate, amount, loudness, latency. somewhat reduced tone. thoughts mostly linear, some logical, others not. paranoid delusions. affect constricted, normo-intense, non-labile. no SI/SIBI/HI/AVH expressed. Diagnostics Vital Signs (24Hr): Vital Signs - 24 hr 03/10/24 20:00 03/11/24 07:45 03/11/24 08:46 Temperature 99 F 97.7 F Pulse Rate 86 94 94 Respiratory Rate 18 22 H Blood Pressure 130/61 116/57 L 116/57 L Pulse Oximetry 96 92 Oxygen Delivery Method Room Air Room Air BMI result Body Mass Index 21.1 Labs 03/04/24 08:33 03/09/24 08:14 Labs: Laboratory Results - last 48 hr 03/09/24 03/09/24 03/10/24 17:23 20:51 07:49 POC Glucose 194 H 171 H 145 H 03/10/24 03/10/24 03/10/24 12:48 17:20 20:46 POC Glucose 294 H 203 H 118 H 03/11/24 03/11/24 08:34 12:50 POC Glucose 136 H 222 H Medications Medications Current Medications Acetaminophen (Acetaminophen 325 Mg Tablet) 975 mg PO Q6H PRN PRN Reason: Headache/Pain Mild Scale (1-3) Al Hydroxide/Mg Hydroxide (Magnesium Hydrox/Alum Hydrox 30 Ml Oral.Susp) 30 ml PO Q6H PRN PRN Reason: Heartburn/Nausea Albuterol Sulfate (Albuterol Sulfate 90 Mcg 8 Gm Inhaler) 2 puff INHALE RQ4H PRN PRN Reason: Shortness of Breath Atenolol (Atenolol 25 Mg Tablet) 25 mg PO DAILY [facility]; Protocol Last Admin: 03/11/24 08:46 Dose: 25 mg Atorvastatin Calcium (Atorvastatin Calcium 40 Mg Tablet) 40 mg PO BEDTIME [facility] Last Admin: 03/10/24 22:12 Dose: 40 mg Clozapine (Clozapine 25 Mg Tablet) 225 mg PO BEDTIME [facility] Docusate Sodium (Docusate Sodium 100 Mg Capsule) 100 mg PO BID PRN PRN Reason: constipation Fluphenazine HCl (Fluphenazine Hcl 1 Mg Tablet) 1 mg PO BEDTIME [facility] Last Admin: 03/10/24 22:12 Dose: 1 mg Fluticasone Propionate (Fluticasone Propionate Nasal 16 Gm [place]) 1 spray NOSTRIL-B DAILY [facility] Last Admin: 03/11/24 08:50 Dose: 1 spray Fluticasone/Umeclidinium/Vilanterol (Fluticasone/Umeclidinium/Vilanterol 100/62.5/25 Blst.W.Dev) 1 puff INHALE RDAILY [facility] Last Admin: 03/11/24 08:44 Dose: 1 puff Gabapentin (Gabapentin 300 Mg Capsule) 600 mg PO TID [facility] Last Admin: 03/11/24 14:25 Dose: 600 mg Glucose (Glucose Gel 15 Gm Gel..Gram.) 15 gm PO Q15M PRN; Protocol PRN Reason: per Hypoglycemia Standing Ord. Dextrose (D10) 250 mls @ 750 mls/hr IV Q15M PRN; Protocol PRN Reason: per Hypoglycemia Standing Ord. Insulin Glargine (Insulin Glargine,Hum.Rec.Anlog 100 Unit/Ml 10 Ml Vial) 15 unit SUBCUT BEDTIME [facility] Last Admin: 03/10/24 22:13 Dose: 15 unit Insulin Human Lispro (Insulin Lispro 100 Unit/Ml 3 Ml Vial) 0 unit SUBCUT QIDACHS [facility]; Protocol Last Admin: 03/11/24 13:02 Dose: 4 unit Levothyroxine Sodium (Levothyroxine Sodium 150 Mcg Tablet) 150 mcg PO DAILY@0600 [facility] Last Admin: 03/11/24 06:20 Dose: 150 mcg Lidocaine (Lidocaine 4 % Patch Adh..Patch) 1 patch TRANSDERMA DAILY [facility]; Protocol Last Admin: 03/11/24 08:49 Dose: Not Given [place] Carbonate ([place] Carbonate Er 450 Mg Tablet.Er) 450 mg PO BID [facility] Last Admin: 03/11/24 08:46 Dose: 450 mg Loratadine (Loratadine 10 Mg Tablet) 10 mg PO DAILY [facility] Last Admin: 03/11/24 08:45 Dose: 10 mg Magnesium Hydroxide (Milk Of Magnesia 30 Ml Oral.Susp) 30 ml PO DAILY PRN PRN Reason: Constipation Metformin HCl (Metformin Hcl 500 Mg Tablet) 500 mg PO BIDWM [facility] Last Admin: 03/11/24 08:45 Dose: 500 mg Nicotine (Nicotine 7 Mg Patch.Td24) 7 mg TRANSDERMA DAILY [facility] Last Admin: 03/11/24 08:44 Dose: 7 mg Nicotine Polacrilex (Nicotine Polacrilex Lozenge 2 Mg Lozenge) 2 mg BUCCAL Q2H PRN PRN Reason: Nicotine Cravings Last Admin: 03/11/24 14:32 Dose: 2 mg Tamsulosin HCl (Tamsulosin Hcl 0.4 Mg Capsule) 0.8 mg PO BEDTIME [facility] Last Admin: 03/10/24 22:11 Dose: 0.8 mg Trazodone HCl (Trazodone Hcl 50 Mg Tablet) 50 mg PO BEDTIME MRX1 PRN PRN Reason: Insomnia Last Admin: 03/07/24 22:45 Dose: 50 mg Allergies Allergies Allergy/AdvReac Type Severity Reaction Status Date / Time amoxicillin [AMOXICILLIN] Allergy Intermediate SKIN RASH Verified 02/15/24 12:34 egg [EGGS] Allergy Intermediate HIVES, Verified 02/15/24 12:34 VOMITING Penicillins [PENICILLINS] Allergy Intermediate SKIN RASH Verified 02/15/24 12:34 Sulfa (Sulfonamide Allergy Intermediate SKIN RASH Verified 02/15/24 12:34 Antibiotics) [SULFA (SULFONAMIDE ANTIBIOTICS)] trimethoprim [TRIMETHOPRIM] Allergy Intermediate SKIN RASH Verified 02/15/24 12:34 penicillin V Allergy Unknown Unknown Verified 02/15/24 12:34 haloperidol [From Haldol] Allergy Unknown Verified 02/15/24 12:34 Latex, Natural Rubber Allergy Unknown Verified 02/15/24 12:34 methylprednisolone Allergy Unknown Verified 02/15/24 12:34 [From Solu-Medrol] penicillin Allergy Unknown Unknown Uncoded 10/10/20 14:35 sultamicillin Allergy Unknown Unknown Uncoded 10/10/20 14:35 trimethoprim Allergy Unknown Unknown Uncoded 10/10/20 14:35 Assessment & Plan Assessment & Plan (1) Encounter for staple removal: Status: Acute Code(s): Z48.02 - Encounter for removal of sutures Assessment and Plan: s/p SB resection admitted for behavioral issues good GI fumctiom looks well abd soft, incision clean, wellhealed kelli removed seen and examined independently 58-year-old male with history of schizophrenia, insulin-dependent type 2 diabetes, hypothyroidism, asthma/COPD overlap, hyperlipidemia admitted to adult Psychiatry who is 2 weeks s/p ex lap, with resection of about 220 cm small bladder with reanastomosis for high grade SBO. He is doing well post operatively. His abdomen is benign and incision clean, umbilical wound opening healing well. His kelli were removed. (2) Traumatic brain injury: Status: Acute Code(s): S06.9X9A - Unspecified intracranial injury with loss of consciousness of unspecified duration, initial encounter (3) Schizophrenia: Status: Acute Code(s): F20.9 - Schizophrenia, unspecified (4) Diabetes mellitus type 2 in nonobese: Status: Acute Code(s): E11.9 - Type 2 diabetes mellitus without complications Plan 03/03: restart prior outpt regimen with the exception of modified insulin regimen. will need to monitor FSBS closely with resumption of metformin, adjust insulin accordingly. will not restart the following at full dose: gabapentin (600 TID), metformin (1000 BIDWM), flomax (0.8 QHS), clozaril (unclear). will titrate those medications back toward prior outpt dosing. mainstay of psychiatric regimen will be the titration of clozapine back to therapeutic dosing. s/p TBI with impaired cognitive and memory function; keep in mind when considering various therapeutic options. medical problems as per hosptialist note otherwise. 03/04: increase gabapentin to outpt dose of 600 TID. increase tamsulosin to outpt dose of 0.8 QHS. titrate clozapine to 75 mg QHS (goal of 75/200). continue metformin 500 BID, consult with hospitalist re insulin dosing. 03/05: gradual improvement day by day. continue clozaril titration, 100 mg tonight. 03/06: continue clozaril titration, to 125 mg tonight. continue over w/e as tolerated, 25 mg per night. colace 100 BID added for constipation. case d/w dr. torres of GI. brian recommended colace for constipation. noted that per surgical report, bowel obstruction was caused by torsion around mesentery which is not c/w clozaril-mediated bowel obstruction. 03/07: Titrate Clozari as tolerated. 03/08: Titrate Clozari as tolerated. Otherwise continue current management and treatment plan. 03/09: increase clozaril to 175 mg tonight. gradually improving. 03/10: mood clearly improved, AH sometimes good, sometimes bad. asking for in-person therapist. gradual improvement continues. 03/11: increase clozapine to 225 QHS. pt requests to have all medication at HS to reduce daytime sedation. asking for klonopin, says they give it to [facility] has no record of klonopin script. Reason for continued inpatient stay Substantial Risk for: inability to function and rapid decompensation Time Spent With Patient Time: Total time managing care of this patient today _25___ minutes.
[2024-03-11 17:42] LABS: Glucose, Whole Blood 332 mg/dL (60-115)
[2024-03-11 19:35] VITALS: BP 111/56; PULSE 78; RESP 16; TEMP 36.9; O2SAT 95
[2024-03-11 21:53] LABS: Glucose, Whole Blood 169 mg/dL (60-115)
[2024-03-11] MEDS: cloZAPine 200 MG, cloZAPine 25 MG 225 MG PO (22:01)
[2024-03-11] MEDS: fluPHENAZine HCl 1 MG TABLET PO (22:02)
[2024-03-11] MEDS: Atorvastatin Calcium 40 MG TABLET PO (22:02)
[2024-03-11] MEDS: Tamsulosin HCL 0.4 MG CAPSULE 0.8 MG PO (22:02)
[2024-03-11] MEDS: Insulin Glargine,Hum.rec.anlog 100 UNIT/ML 10 ML VIAL 15 UNIT SUBCUT (22:06)
[2024-03-12] MEDS: Levothyroxine Sodium 150 MCG TABLET PO (06:41)
--- NOTE | 2024-03-12 06:45 | PC.NURSE ---
patient incontinent of urine this am I wet myself again. I'm on the Flomax but I need my other bladder medication. patient encouraged to shower.
[2024-03-12 07:00] VITALS: BMI 21.8
[2024-03-12 08:53] VITALS: BP 129/60; PULSE 94
[2024-03-12] MEDS: Gabapentin 300 MG CAPSULE 600 MG PO ×3 (08:53→22:59)
[2024-03-12] MEDS: atenoloL 25 MG TABLET PO (08:53)
[2024-03-12] MEDS: Lithium Carbonate ER 450 MG TABLET.ER PO ×2 (08:53→23:00)
[2024-03-12] MEDS: Loratadine 10 MG TABLET PO (08:53)
[2024-03-12] MEDS: metFORMIN HCl 500 MG TABLET PO ×2 (08:54→17:31)
[2024-03-12] MEDS: Nicotine Polacrilex Lozenge 2 MG LOZENGE BUCCAL ×6 (08:54→23:01)
[2024-03-12] MEDS: Nicotine 7 MG PATCH.TD24 TRANSDERMA (08:55)
[2024-03-12 09:00] VITALS: BP 129/60; PULSE 94; RESP 16; TEMP 36.5; O2SAT 96
[2024-03-12 09:01] LABS: Glucose, Whole Blood 267 mg/dL (60-115)
[2024-03-12] MEDS: Fluticasone Propionate Nasal 16 GM SPRAY 1 SPRAY NOSTRIL-B (09:02)
[2024-03-12] MEDS: Insulin Lispro 100 UNIT/ML 3 ML VIAL SUBCUT ×4 (09:02→23:20)
[2024-03-12] MEDS: Fluticasone/Umeclidinium/Vilanterol 100/62.5/25 BLST.W.DEV 1 PUFF INHALE (09:02)
[2024-03-12 12:40] LABS: Glucose, Whole Blood 244 mg/dL (60-115)
--- NOTE | 2024-03-12 14:46 | P.PNPSI_ITS ---
Subjective Subjective Date of Service: 03/12/24 Reason For Visit: Unspecified Schizophrenia Spectrum and other psych Interim History: pleasant, no complaints. feels mood good, AH improving. amenable to increase clozapine to 250 QHS. per staff, cheerful, taking meds. pleasant. +AH daily. sleeping well, 8 hours. Mental Status Exam Mental Status Exam Narrative: adequately dressed and groomed, cooperative with interview, no PMA/PMR, speech generally nml rate, amount, loudness, latency. somewhat reduced tone. thoughts mostly linear, logical. paranoid delusions. affect constricted, normo-intense, non-labile. no SI/SIBI/HI/AVH expressed. Diagnostics Vital Signs (24Hr): Vital Signs - 24 hr 03/11/24 19:35 03/12/24 08:53 03/12/24 09:00 Temperature 98.5 F 97.7 F Pulse Rate 78 94 94 Respiratory Rate 16 16 Blood Pressure 111/56 L 129/60 129/60 Pulse Oximetry 95 96 Oxygen Delivery Method Room Air Room Air BMI result Body Mass Index 21.8 Labs 03/04/24 08:33 03/09/24 08:14 Labs: Laboratory Results - last 48 hr 03/10/24 03/10/24 03/11/24 17:20 20:46 08:34 POC Glucose 203 H 118 H 136 H 03/11/24 03/11/24 03/11/24 12:50 17:38 21:50 POC Glucose 222 H 332 H 169 H 03/12/24 03/12/24 08:52 12:34 POC Glucose 267 H 244 H Medications Medications Current Medications Acetaminophen (Acetaminophen 325 Mg Tablet) 975 mg PO Q6H PRN PRN Reason: Headache/Pain Mild Scale (1-3) Al Hydroxide/Mg Hydroxide (Magnesium Hydrox/Alum Hydrox 30 Ml Oral.Susp) 30 ml PO Q6H PRN PRN Reason: Heartburn/Nausea Albuterol Sulfate (Albuterol Sulfate 90 Mcg 8 Gm Inhaler) 2 puff INHALE RQ4H PRN PRN Reason: Shortness of Breath Atenolol (Atenolol 25 Mg Tablet) 25 mg PO DAILY [facility]; Protocol Last Admin: 03/12/24 08:53 Dose: 25 mg Atorvastatin Calcium (Atorvastatin Calcium 40 Mg Tablet) 40 mg PO BEDTIME [facility] Last Admin: 03/11/24 22:02 Dose: 40 mg Clozapine (Clozapine 25 Mg Tablet) 250 mg PO BEDTIME [facility] Docusate Sodium (Docusate Sodium 100 Mg Capsule) 100 mg PO BID PRN PRN Reason: constipation Fluphenazine HCl (Fluphenazine Hcl 1 Mg Tablet) 1 mg PO BEDTIME [facility] Last Admin: 03/11/24 22:02 Dose: 1 mg Fluticasone Propionate (Fluticasone Propionate Nasal 16 Gm [place]) 1 spray NOSTRIL-B DAILY [facility] Last Admin: 03/12/24 09:02 Dose: 1 spray Fluticasone/Umeclidinium/Vilanterol (Fluticasone/Umeclidinium/Vilanterol 100/62.5/25 Blst.W.Dev) 1 puff INHALE RDAILY [facility] Last Admin: 03/12/24 09:02 Dose: 1 puff Gabapentin (Gabapentin 300 Mg Capsule) 600 mg PO TID [facility] Last Admin: 03/12/24 08:53 Dose: 600 mg Glucose (Glucose Gel 15 Gm Gel..Gram.) 15 gm PO Q15M PRN; Protocol PRN Reason: per Hypoglycemia Standing Ord. Dextrose (D10) 250 mls @ 750 mls/hr IV Q15M PRN; Protocol PRN Reason: per Hypoglycemia Standing Ord. Insulin Glargine (Insulin Glargine,Hum.Rec.Anlog 100 Unit/Ml 10 Ml Vial) 15 unit SUBCUT BEDTIME [facility] Last Admin: 03/11/24 22:06 Dose: 15 unit Insulin Human Lispro (Insulin Lispro 100 Unit/Ml 3 Ml Vial) 0 unit SUBCUT QIDACHS [facility]; Protocol Last Admin: 03/12/24 12:44 Dose: 4 unit Levothyroxine Sodium (Levothyroxine Sodium 150 Mcg Tablet) 150 mcg PO DAILY@0600 [facility] Last Admin: 03/12/24 06:41 Dose: 150 mcg Lidocaine (Lidocaine 4 % Patch Adh..Patch) 1 patch TRANSDERMA DAILY [facility]; Protocol Last Admin: 03/12/24 09:11 Dose: Not Given [place] Carbonate ([place] Carbonate Er 450 Mg Tablet.Er) 450 mg PO BID [facility] Last Admin: 03/12/24 08:53 Dose: 450 mg Loratadine (Loratadine 10 Mg Tablet) 10 mg PO DAILY [facility] Last Admin: 03/12/24 08:53 Dose: 10 mg Magnesium Hydroxide (Milk Of Magnesia 30 Ml Oral.Susp) 30 ml PO DAILY PRN PRN Reason: Constipation Metformin HCl (Metformin Hcl 500 Mg Tablet) 500 mg PO BIDWM [facility] Last Admin: 03/12/24 08:54 Dose: 500 mg Nicotine (Nicotine 7 Mg Patch.Td24) 7 mg TRANSDERMA DAILY [facility] Last Admin: 03/12/24 08:55 Dose: 7 mg Nicotine Polacrilex (Nicotine Polacrilex Lozenge 2 Mg Lozenge) 2 mg BUCCAL Q2H PRN PRN Reason: Nicotine Cravings Last Admin: 03/12/24 12:23 Dose: 2 mg Tamsulosin HCl (Tamsulosin Hcl 0.4 Mg Capsule) 0.8 mg PO BEDTIME [facility] Last Admin: 03/11/24 22:02 Dose: 0.8 mg Trazodone HCl (Trazodone Hcl 50 Mg Tablet) 50 mg PO BEDTIME MRX1 PRN PRN Reason: Insomnia Last Admin: 03/07/24 22:45 Dose: 50 mg Allergies Allergies Allergy/AdvReac Type Severity Reaction Status Date / Time amoxicillin [AMOXICILLIN] Allergy Intermediate SKIN RASH Verified 02/15/24 12:34 egg [EGGS] Allergy Intermediate HIVES, Verified 02/15/24 12:34 VOMITING Penicillins [PENICILLINS] Allergy Intermediate SKIN RASH Verified 02/15/24 12:34 Sulfa (Sulfonamide Allergy Intermediate SKIN RASH Verified 02/15/24 12:34 Antibiotics) [SULFA (SULFONAMIDE ANTIBIOTICS)] trimethoprim [TRIMETHOPRIM] Allergy Intermediate SKIN RASH Verified 02/15/24 12:34 penicillin V Allergy Unknown Unknown Verified 02/15/24 12:34 haloperidol [From Haldol] Allergy Unknown Verified 02/15/24 12:34 Latex, Natural Rubber Allergy Unknown Verified 02/15/24 12:34 methylprednisolone Allergy Unknown Verified 02/15/24 12:34 [From Solu-Medrol] penicillin Allergy Unknown Unknown Uncoded 10/10/20 14:35 sultamicillin Allergy Unknown Unknown Uncoded 10/10/20 14:35 trimethoprim Allergy Unknown Unknown Uncoded 10/10/20 14:35 Assessment & Plan Assessment & Plan (1) Encounter for staple removal: Status: Acute Code(s): Z48.02 - Encounter for removal of sutures Assessment and Plan: s/p SB resection admitted for behavioral issues good GI fumctiom looks well abd soft, incision clean, wellhealed kelli removed seen and examined independently 58-year-old male with history of schizophrenia, insulin-dependent type 2 diabetes, hypothyroidism, asthma/COPD overlap, hyperlipidemia admitted to adult Psychiatry who is 2 weeks s/p ex lap, with resection of about 220 cm small bladder with reanastomosis for high grade SBO. He is doing well post operatively. His abdomen is benign and incision clean, umbilical wound opening healing well. His kelli were removed. (2) Traumatic brain injury: Status: Acute Code(s): S06.9X9A - Unspecified intracranial injury with loss of consciousness of unspecified duration, initial encounter (3) Schizophrenia: Status: Acute Code(s): F20.9 - Schizophrenia, unspecified (4) Diabetes mellitus type 2 in nonobese: Status: Acute Code(s): E11.9 - Type 2 diabetes mellitus without complications Plan 03/03: restart prior outpt regimen with the exception of modified insulin regimen. will need to monitor FSBS closely with resumption of metformin, adjust insulin accordingly. will not restart the following at full dose: gabapentin (600 TID), metformin (1000 BIDWM), flomax (0.8 QHS), clozaril (unclear). will titrate those medications back toward prior outpt dosing. mainstay of psychiatric regimen will be the titration of clozapine back to therapeutic dosing. s/p TBI with impaired cognitive and memory function; keep in mind when considering various therapeutic options. medical problems as per hosptialist note otherwise. 03/04: increase gabapentin to outpt dose of 600 TID. increase tamsulosin to outpt dose of 0.8 QHS. titrate clozapine to 75 mg QHS (goal of 75/200). continue metformin 500 BID, consult with hospitalist re insulin dosing. 03/05: gradual improvement day by day. continue clozaril titration, 100 mg tonight. 03/06: continue clozaril titration, to 125 mg tonight. continue over w/e as tolerated, 25 mg per night. colace 100 BID added for constipation. case d/w dr. torres of GI. brian recommended colace for constipation. noted that per surgical report, bowel obstruction was caused by torsion around mesentery which is not c/w clozaril-mediated bowel obstruction. 03/07: Titrate Clozari as tolerated. 03/08: Titrate Clozari as tolerated. Otherwise continue current management and treatment plan. 03/09: increase clozaril to 175 mg tonight. gradually improving. 03/10: mood clearly improved, AH sometimes good, sometimes bad. asking for in-person therapist. gradual improvement continues. 03/11: increase clozapine to 225 QHS. pt requests to have all medication at HS to reduce daytime sedation. asking for klonopin, says they give it to him at the [facility] has no record of klonopin script. 03/12: increase clozapine to 250 mg QHS. improving psychotic Sx. Reason for continued inpatient stay Substantial Risk for: inability to function and rapid decompensation Time Spent With Patient Time: Total time managing care of this patient today __25__ minutes.
[2024-03-12 17:38] LABS: Glucose, Whole Blood 186 mg/dL (60-115)
[2024-03-12 19:20] VITALS: BP 118/56; PULSE 73; RESP 16; TEMP 37.3; O2SAT 98
[2024-03-12 22:51] LABS: Glucose, Whole Blood 204 mg/dL (60-115)
[2024-03-12] MEDS: fluPHENAZine HCl 1 MG TABLET PO (22:59)
[2024-03-12] MEDS: Tamsulosin HCL 0.4 MG CAPSULE 0.8 MG PO (22:59)
[2024-03-12] MEDS: Atorvastatin Calcium 40 MG TABLET PO (22:59)
[2024-03-12] MEDS: Insulin Glargine,Hum.rec.anlog 100 UNIT/ML 10 ML VIAL 15 UNIT SUBCUT (23:17)
[2024-03-12] MEDS: cloZAPine 25 MG TABLET 50 MG PO (23:22)
[2024-03-12] MEDS: cloZAPine 100 MG TABLET 200 MG PO (23:22)
[2024-03-13] MEDS: Levothyroxine Sodium 150 MCG TABLET PO (07:12)
[2024-03-13 07:37] VITALS: BP 115/58; PULSE 87; RESP 14; TEMP 36.6; O2SAT 96
[2024-03-13 08:12] LABS: Glucose, Whole Blood 220 mg/dL (60-115)
[2024-03-13] MEDS: Insulin Lispro 100 UNIT/ML 3 ML VIAL SUBCUT ×3 (09:57→22:29)
[2024-03-13] MEDS: Gabapentin 300 MG CAPSULE 600 MG PO ×3 (09:58→22:35)
[2024-03-13] MEDS: Lidocaine 4 % Patch ADH..PATCH 1 PATCH TRANSDERMA (09:58)
[2024-03-13] MEDS: Loratadine 10 MG TABLET PO (09:58)
[2024-03-13 09:59] VITALS: BP 115/58; PULSE 87
[2024-03-13] MEDS: Lithium Carbonate ER 450 MG TABLET.ER PO ×2 (09:59→22:34)
[2024-03-13] MEDS: metFORMIN HCl 500 MG TABLET PO ×2 (09:59→17:36)
[2024-03-13] MEDS: Fluticasone/Umeclidinium/Vilanterol 100/62.5/25 BLST.W.DEV 1 PUFF INHALE (10:00)
[2024-03-13] MEDS: Fluticasone Propionate Nasal 16 GM SPRAY 1 SPRAY NOSTRIL-B (10:00)
[2024-03-13] MEDS: Nicotine Polacrilex Lozenge 2 MG LOZENGE BUCCAL ×6 (10:24→22:42)
[2024-03-13 12:09] LABS: Glucose, Whole Blood 396 mg/dL (60-115)
--- NOTE | 2024-03-13 12:46 | HO.PSYCHPN ---
Subjective Subjective Date of Service: 03/13/24 Reason For Visit: Unspecified Schizophrenia Spectrum and other psych Interim History: resting in bed mid-morning. calm, cooperative. c/o nocturia. does want to continue to titrate clozapine tonight. per staff, taking meds. +AH. mild paranoia. incontinent of urine overnight. Mental Status Exam Mental Status Exam Narrative: adequately dressed and groomed, cooperative with interview, no PMA/PMR, speech generally nml rate, amount, loudness, latency. somewhat reduced tone. thoughts mostly linear, logical. paranoid delusions. affect constricted, normo-intense, non-labile. no SI/SIBI/HI/AVH expressed. Diagnostics Vital Signs (24Hr): Vital Signs - 24 hr 03/12/24 19:20 03/13/24 07:37 03/13/24 09:59 Temperature 99.2 F 97.8 F Pulse Rate 73 87 87 Respiratory Rate 16 14 Blood Pressure 118/56 L 115/58 L 115/58 L Pulse Oximetry 98 96 Oxygen Delivery Method Room Air Room Air BMI result Body Mass Index 21.8 Labs 03/04/24 08:33 03/09/24 08:14 Labs: Laboratory Results - last 48 hr 03/11/24 03/11/24 03/11/24 12:50 17:38 21:50 POC Glucose 222 H 332 H 169 H 03/12/24 03/12/24 03/12/24 08:52 12:34 17:33 POC Glucose 267 H 244 H 186 H 03/12/24 03/13/24 03/13/24 22:47 08:03 12:05 POC Glucose 204 H 220 H 396 H* Medications Medications Current Medications Acetaminophen (Acetaminophen 325 Mg Tablet) 975 mg PO Q6H PRN PRN Reason: Headache/Pain Mild Scale (1-3) Al Hydroxide/Mg Hydroxide (Magnesium Hydrox/Alum Hydrox 30 Ml Oral.Susp) 30 ml PO Q6H PRN PRN Reason: Heartburn/Nausea Albuterol Sulfate (Albuterol Sulfate 90 Mcg 8 Gm Inhaler) 2 puff INHALE RQ4H PRN PRN Reason: Shortness of Breath Atenolol (Atenolol 25 Mg Tablet) 25 mg PO DAILY [facility]; Protocol Last Admin: 03/13/24 09:59 Dose: Not Given Atorvastatin Calcium (Atorvastatin Calcium 40 Mg Tablet) 40 mg PO BEDTIME [facility] Last Admin: 03/12/24 22:59 Dose: 40 mg Clozapine (Clozapine 100 Mg Tablet) 200 mg PO BEDTIME [facility] Last Admin: 03/12/24 23:22 Dose: 200 mg Clozapine (Clozapine 25 Mg Tablet) 75 mg PO BEDTIME [facility] Docusate Sodium (Docusate Sodium 100 Mg Capsule) 100 mg PO BID PRN PRN Reason: constipation Fluphenazine HCl (Fluphenazine Hcl 1 Mg Tablet) 1 mg PO BEDTIME [facility] Last Admin: 03/12/24 22:59 Dose: 1 mg Fluticasone Propionate (Fluticasone Propionate Nasal 16 Gm [place]) 1 spray NOSTRIL-B DAILY [facility] Last Admin: 03/13/24 10:00 Dose: 1 spray Fluticasone/Umeclidinium/Vilanterol (Fluticasone/Umeclidinium/Vilanterol 100/62.5/25 Blst.W.Dev) 1 puff INHALE RDAILY [facility] Last Admin: 03/13/24 10:00 Dose: 1 puff Gabapentin (Gabapentin 300 Mg Capsule) 600 mg PO TID [facility] Last Admin: 03/13/24 09:58 Dose: 600 mg Glucose (Glucose Gel 15 Gm Gel..Gram.) 15 gm PO Q15M PRN; Protocol PRN Reason: per Hypoglycemia Standing Ord. Dextrose (D10) 250 mls @ 750 mls/hr IV Q15M PRN; Protocol PRN Reason: per Hypoglycemia Standing Ord. Insulin Glargine (Insulin Glargine,Hum.Rec.Anlog 100 Unit/Ml 10 Ml Vial) 15 unit SUBCUT BEDTIME [facility] Last Admin: 03/12/24 23:17 Dose: 15 unit Insulin Human Lispro (Insulin Lispro 100 Unit/Ml 3 Ml Vial) 0 unit SUBCUT QIDACHS [facility]; Protocol Last Admin: 03/13/24 09:57 Dose: 4 unit Levothyroxine Sodium (Levothyroxine Sodium 150 Mcg Tablet) 150 mcg PO DAILY@0600 [facility] Last Admin: 03/13/24 07:12 Dose: 150 mcg Lidocaine (Lidocaine 4 % Patch Adh..Patch) 1 patch TRANSDERMA DAILY [facility]; Protocol Last Admin: 03/13/24 09:58 Dose: 1 patch [place] Carbonate ([place] Carbonate Er 450 Mg Tablet.Er) 450 mg PO BID [facility] Last Admin: 03/13/24 09:59 Dose: 450 mg Loratadine (Loratadine 10 Mg Tablet) 10 mg PO DAILY [facility] Last Admin: 03/13/24 09:58 Dose: 10 mg Magnesium Hydroxide (Milk Of Magnesia 30 Ml Oral.Susp) 30 ml PO DAILY PRN PRN Reason: Constipation Metformin HCl (Metformin Hcl 500 Mg Tablet) 500 mg PO BIDWM [facility] Last Admin: 03/13/24 09:59 Dose: 500 mg Nicotine (Nicotine 7 Mg Patch.Td24) 7 mg TRANSDERMA DAILY [facility] Last Admin: 03/13/24 10:06 Dose: Not Given Nicotine Polacrilex (Nicotine Polacrilex Lozenge 2 Mg Lozenge) 2 mg BUCCAL Q2H PRN PRN Reason: Nicotine Cravings Last Admin: 03/13/24 10:24 Dose: 2 mg Tamsulosin HCl (Tamsulosin Hcl 0.4 Mg Capsule) 0.8 mg PO BEDTIME [facility] Last Admin: 03/12/24 22:59 Dose: 0.8 mg Trazodone HCl (Trazodone Hcl 50 Mg Tablet) 50 mg PO BEDTIME MRX1 PRN PRN Reason: Insomnia Last Admin: 03/07/24 22:45 Dose: 50 mg Allergies Allergies Allergy/AdvReac Type Severity Reaction Status Date / Time amoxicillin [AMOXICILLIN] Allergy Intermediate SKIN RASH Verified 02/15/24 12:34 egg [EGGS] Allergy Intermediate HIVES, Verified 02/15/24 12:34 VOMITING Penicillins [PENICILLINS] Allergy Intermediate SKIN RASH Verified 02/15/24 12:34 Sulfa (Sulfonamide Allergy Intermediate SKIN RASH Verified 02/15/24 12:34 Antibiotics) [SULFA (SULFONAMIDE ANTIBIOTICS)] trimethoprim [TRIMETHOPRIM] Allergy Intermediate SKIN RASH Verified 02/15/24 12:34 penicillin V Allergy Unknown Unknown Verified 02/15/24 12:34 haloperidol [From Haldol] Allergy Unknown Verified 02/15/24 12:34 Latex, Natural Rubber Allergy Unknown Verified 02/15/24 12:34 methylprednisolone Allergy Unknown Verified 02/15/24 12:34 [From Solu-Medrol] penicillin Allergy Unknown Unknown Uncoded 10/10/20 14:35 sultamicillin Allergy Unknown Unknown Uncoded 10/10/20 14:35 trimethoprim Allergy Unknown Unknown Uncoded 10/10/20 14:35 Assessment & Plan Assessment & Plan (1) Encounter for staple removal: Status: Acute Code(s): Z48.02 - Encounter for removal of sutures Assessment and Plan: s/p SB resection admitted for behavioral issues good GI fumctiom looks well abd soft, incision clean, wellhealed kelli removed seen and examined independently 58-year-old male with history of schizophrenia, insulin-dependent type 2 diabetes, hypothyroidism, asthma/COPD overlap, hyperlipidemia admitted to adult Psychiatry who is 2 weeks s/p ex lap, with resection of about 220 cm small bladder with reanastomosis for high grade SBO. He is doing well post operatively. His abdomen is benign and incision clean, umbilical wound opening healing well. His kelli were removed. (2) Traumatic brain injury: Status: Acute Code(s): S06.9X9A - Unspecified intracranial injury with loss of consciousness of unspecified duration, initial encounter (3) Schizophrenia: Status: Acute Code(s): F20.9 - Schizophrenia, unspecified (4) Diabetes mellitus type 2 in nonobese: Status: Acute Code(s): E11.9 - Type 2 diabetes mellitus without complications Plan 03/03: restart prior outpt regimen with the exception of modified insulin regimen. will need to monitor FSBS closely with resumption of metformin, adjust insulin accordingly. will not restart the following at full dose: gabapentin (600 TID), metformin (1000 BIDWM), flomax (0.8 QHS), clozaril (unclear). will titrate those medications back toward prior outpt dosing. mainstay of psychiatric regimen will be the titration of clozapine back to therapeutic dosing. s/p TBI with impaired cognitive and memory function; keep in mind when considering various therapeutic options. medical problems as per hosptialist note otherwise. 03/04: increase gabapentin to outpt dose of 600 TID. increase tamsulosin to outpt dose of 0.8 QHS. titrate clozapine to 75 mg QHS (goal of 75/200). continue metformin 500 BID, consult with hospitalist re insulin dosing. 03/05: gradual improvement day by day. continue clozaril titration, 100 mg tonight. 03/06: continue clozaril titration, to 125 mg tonight. continue over w/e as tolerated, 25 mg per night. colace 100 BID added for constipation. case d/w dr. torres of GI. brian recommended colace for constipation. noted that per surgical report, bowel obstruction was caused by torsion around mesentery which is not c/w clozaril-mediated bowel obstruction. 03/07: Titrate Clozari as tolerated. 03/08: Titrate Clozari as tolerated. Otherwise continue current management and treatment plan. 03/09: increase clozaril to 175 mg tonight. gradually improving. 03/10: mood clearly improved, AH sometimes good, sometimes bad. asking for in-person therapist. gradual improvement continues. 03/11: increase clozapine to 225 QHS. pt requests to have all medication at HS to reduce daytime sedation. asking for klonopin, [facility] has no record of klonopin script. 03/12: increase clozapine to 250 mg QHS. improving psychotic Sx. 03/13: nocturia persists. increase clozapine to 275 as of tonight, which is goal dosing. observe for stability or need for further dose escalation. Reason for continued inpatient stay Substantial Risk for: inability to function and rapid decompensation Time Spent With Patient Time: Total time managing care of this patient today __25__ minutes.
[2024-03-13 17:35] LABS: Glucose, Whole Blood 124 mg/dL (60-115)
--- NOTE | 2024-03-13 17:43 | PC.NURSE ---
Pt.'s lunch time BG was 396. This was reported to Dr. Richardson via [employer]. He stated that he will be reaching out to the hospitalist to inquire about changing coverage.
[2024-03-13 20:00] VITALS: BP 116/55; PULSE 84; RESP 16; TEMP 37.1; O2SAT 96
[2024-03-13 21:23] LABS: Glucose, Whole Blood 320 mg/dL (60-115)
[2024-03-13] MEDS: Insulin Glargine,Hum.rec.anlog 100 UNIT/ML 10 ML VIAL 15 UNIT SUBCUT (22:30)
[2024-03-13] MEDS: cloZAPine 25 MG TABLET 75 MG PO (22:33)
[2024-03-13] MEDS: cloZAPine 100 MG TABLET 200 MG PO (22:34)
[2024-03-13] MEDS: Tamsulosin HCL 0.4 MG CAPSULE 0.8 MG PO (22:34)
[2024-03-13] MEDS: Atorvastatin Calcium 40 MG TABLET PO (22:36)
[2024-03-13] MEDS: fluPHENAZine HCl 1 MG TABLET PO (22:36)
[2024-03-14] MEDS: Levothyroxine Sodium 150 MCG TABLET PO (06:14)
[2024-03-14] MEDS: Nicotine Polacrilex Lozenge 2 MG LOZENGE BUCCAL ×6 (06:14→23:29)
[2024-03-14 07:43] VITALS: BP 128/66; PULSE 105; RESP 18; TEMP 36.4; O2SAT 98
[2024-03-14 09:07] LABS: Glucose, Whole Blood 151 mg/dL (60-115)
[2024-03-14] MEDS: Fluticasone/Umeclidinium/Vilanterol 100/62.5/25 BLST.W.DEV 1 PUFF INHALE (09:10)
[2024-03-14] MEDS: Fluticasone Propionate Nasal 16 GM SPRAY 1 SPRAY NOSTRIL-B (09:10)
[2024-03-14 09:11] VITALS: BP 128/66; PULSE 105
[2024-03-14] MEDS: atenoloL 25 MG TABLET PO (09:11)
[2024-03-14] MEDS: Loratadine 10 MG TABLET PO (09:11)
[2024-03-14] MEDS: Gabapentin 300 MG CAPSULE 600 MG PO ×3 (09:11→22:20)
[2024-03-14] MEDS: metFORMIN HCl 500 MG TABLET PO ×2 (09:11→13:07)
[2024-03-14] MEDS: Lithium Carbonate ER 450 MG TABLET.ER PO ×2 (09:11→22:21)
[2024-03-14] MEDS: Insulin Lispro 100 UNIT/ML 3 ML VIAL SUBCUT ×4 (09:12→22:14)
[2024-03-14] MEDS: Lidocaine 4 % Patch ADH..PATCH 1 PATCH TRANSDERMA (09:13)
--- NOTE | 2024-03-14 09:57 | P.PNPSI_ITS ---
Subjective Subjective Date of Service: 03/14/24 Reason For Visit: Unspecified Schizophrenia Spectrum and other psych Subjective Notes: Conditional Voluntary Interim History: Met with patient. Discussed with Nursing. Adherent with treatment. Pleasant. Patient reports overall doing okay. Feeling safe in the hospital. Feels the medications have been helpful and he is able to control his thoughts better. Reported he was without medications for around 3-4 weeks and thankful to be back on them. Anxiety unremarkable. Sleep okay. Medication Compliance: Yes Side effects from medications: No Attending Groups: No Review of Systems Acute medical concerns: No Review of Systems Review of Systems Yes all other systems are reviewed and are negative Mental Status Exam Mental Status Exam Narrative: adequately dressed and groomed, cooperative with interview, no PMA/PMR, speech generally nml rate, amount, loudness, latency. somewhat reduced tone. thoughts mostly linear, logical. less intense delusions. affect constricted, normo- intense, non-labile. no SI/SIBI/HI/AVH expressed. Diagnostics Vital Signs (24Hr): Vital Signs - 24 hr 03/13/24 09:59 03/13/24 20:00 03/14/24 07:43 Temperature 98.8 F 97.5 F Pulse Rate 87 84 105 H Respiratory Rate 16 18 Blood Pressure 115/58 L 116/55 L 128/66 Pulse Oximetry 96 98 Oxygen Delivery Method Room Air Room Air 03/14/24 09:11 Temperature Pulse Rate 105 H Respiratory Rate Blood Pressure 128/66 Pulse Oximetry Oxygen Delivery Method BMI result Body Mass Index 21.8 Labs 03/04/24 08:33 03/09/24 08:14 Labs: Laboratory Results - last 48 hr 03/12/24 03/12/24 03/12/24 12:34 17:33 22:47 POC Glucose 244 H 186 H 204 H 03/13/24 03/13/24 03/13/24 08:03 12:05 17:30 POC Glucose 220 H 396 H* 124 H 03/13/24 03/14/24 21:18 09:03 POC Glucose 320 H 151 H Medications Medications Current Medications Acetaminophen (Acetaminophen 325 Mg Tablet) 975 mg PO Q6H PRN PRN Reason: Headache/Pain Mild Scale (1-3) Al Hydroxide/Mg Hydroxide (Magnesium Hydrox/Alum Hydrox 30 Ml Oral.Susp) 30 ml PO Q6H PRN PRN Reason: Heartburn/Nausea Albuterol Sulfate (Albuterol Sulfate 90 Mcg 8 Gm Inhaler) 2 puff INHALE RQ4H PRN PRN Reason: Shortness of Breath Atenolol (Atenolol 25 Mg Tablet) 25 mg PO DAILY [facility]; Protocol Last Admin: 03/14/24 09:11 Dose: 25 mg Atorvastatin Calcium (Atorvastatin Calcium 40 Mg Tablet) 40 mg PO BEDTIME [facility] Last Admin: 03/13/24 22:36 Dose: 40 mg Clozapine (Clozapine 100 Mg Tablet) 200 mg PO BEDTIME [facility] Last Admin: 03/13/24 22:34 Dose: 200 mg Clozapine (Clozapine 25 Mg Tablet) 75 mg PO BEDTIME [facility] Last Admin: 03/13/24 22:33 Dose: 75 mg Docusate Sodium (Docusate Sodium 100 Mg Capsule) 100 mg PO BID PRN PRN Reason: constipation Fluphenazine HCl (Fluphenazine Hcl 1 Mg Tablet) 1 mg PO BEDTIME [facility] Last Admin: 03/13/24 22:36 Dose: 1 mg Fluticasone Propionate (Fluticasone Propionate Nasal 16 Gm [place]) 1 spray NOSTRIL-B DAILY [facility] Last Admin: 03/14/24 09:10 Dose: 1 spray Fluticasone/Umeclidinium/Vilanterol (Fluticasone/Umeclidinium/Vilanterol 100/62.5/25 Blst.W.Dev) 1 puff INHALE RDAILY [facility] Last Admin: 03/14/24 09:10 Dose: 1 puff Gabapentin (Gabapentin 300 Mg Capsule) 600 mg PO TID [facility] Last Admin: 03/14/24 09:11 Dose: 600 mg Glucose (Glucose Gel 15 Gm Gel..Gram.) 15 gm PO Q15M PRN; Protocol PRN Reason: per Hypoglycemia Standing Ord. Dextrose (D10) 250 mls @ 750 mls/hr IV Q15M PRN; Protocol PRN Reason: per Hypoglycemia Standing Ord. Insulin Glargine (Insulin Glargine,Hum.Rec.Anlog 100 Unit/Ml 10 Ml Vial) 15 unit SUBCUT BEDTIME [facility] Last Admin: 03/13/24 22:30 Dose: 15 unit Insulin Human Lispro (Insulin Lispro 100 Unit/Ml 3 Ml Vial) 0 unit SUBCUT QIDACHS [facility]; Protocol Last Admin: 03/14/24 09:12 Dose: 2 unit Levothyroxine Sodium (Levothyroxine Sodium 150 Mcg Tablet) 150 mcg PO DAILY@0600 [facility] Last Admin: 03/14/24 06:14 Dose: 150 mcg Lidocaine (Lidocaine 4 % Patch Adh..Patch) 1 patch TRANSDERMA DAILY [facility]; Protocol Last Admin: 03/14/24 09:13 Dose: 1 patch [place] Carbonate ([place] Carbonate Er 450 Mg Tablet.Er) 450 mg PO BID [facility] Last Admin: 03/14/24 09:11 Dose: 450 mg Loratadine (Loratadine 10 Mg Tablet) 10 mg PO DAILY [facility] Last Admin: 03/14/24 09:11 Dose: 10 mg Magnesium Hydroxide (Milk Of Magnesia 30 Ml Oral.Susp) 30 ml PO DAILY PRN PRN Reason: Constipation Metformin HCl (Metformin Hcl 500 Mg Tablet) 500 mg PO BIDWM [facility] Last Admin: 03/14/24 09:11 Dose: 500 mg Nicotine (Nicotine 7 Mg Patch.Td24) 7 mg TRANSDERMA DAILY [facility] Last Admin: 03/14/24 09:14 Dose: Not Given Nicotine Polacrilex (Nicotine Polacrilex Lozenge 2 Mg Lozenge) 2 mg BUCCAL Q2H PRN PRN Reason: Nicotine Cravings Last Admin: 03/14/24 06:14 Dose: 2 mg Tamsulosin HCl (Tamsulosin Hcl 0.4 Mg Capsule) 0.8 mg PO BEDTIME [facility] Last Admin: 03/13/24 22:34 Dose: 0.8 mg Trazodone HCl (Trazodone Hcl 50 Mg Tablet) 50 mg PO BEDTIME MRX1 PRN PRN Reason: Insomnia Last Admin: 03/07/24 22:45 Dose: 50 mg Allergies Allergies Allergy/AdvReac Type Severity Reaction Status Date / Time amoxicillin [AMOXICILLIN] Allergy Intermediate SKIN RASH Verified 02/15/24 12:34 egg [EGGS] Allergy Intermediate HIVES, Verified 02/15/24 12:34 VOMITING Penicillins [PENICILLINS] Allergy Intermediate SKIN RASH Verified 02/15/24 12:34 Sulfa (Sulfonamide Allergy Intermediate SKIN RASH Verified 02/15/24 12:34 Antibiotics) [SULFA (SULFONAMIDE ANTIBIOTICS)] trimethoprim [TRIMETHOPRIM] Allergy Intermediate SKIN RASH Verified 02/15/24 12:34 penicillin V Allergy Unknown Unknown Verified 02/15/24 12:34 haloperidol [From Haldol] Allergy Unknown Verified 02/15/24 12:34 Latex, Natural Rubber Allergy Unknown Verified 02/15/24 12:34 methylprednisolone Allergy Unknown Verified 02/15/24 12:34 [From Solu-Medrol] penicillin Allergy Unknown Unknown Uncoded 10/10/20 14:35 sultamicillin Allergy Unknown Unknown Uncoded 10/10/20 14:35 trimethoprim Allergy Unknown Unknown Uncoded 10/10/20 14:35 Assessment & Plan Assessment & Plan (1) Encounter for staple removal: Status: Acute Code(s): Z48.02 - Encounter for removal of sutures Assessment and Plan: s/p SB resection admitted for behavioral issues good GI fumctiom looks well abd soft, incision clean, wellhealed kelli removed seen and examined independently 58-year-old male with history of schizophrenia, insulin-dependent type 2 diabetes, hypothyroidism, asthma/COPD overlap, hyperlipidemia admitted to adult Psychiatry who is 2 weeks s/p ex lap, with resection of about 220 cm small bladder with reanastomosis for high grade SBO. He is doing well post operatively. His abdomen is benign and incision clean, umbilical wound opening healing well. His kelli were removed. (2) Traumatic brain injury: Status: Acute Code(s): S06.9X9A - Unspecified intracranial injury with loss of consciousness of unspecified duration, initial encounter (3) Schizophrenia: Status: Acute Code(s): F20.9 - Schizophrenia, unspecified (4) Diabetes mellitus type 2 in nonobese: Status: Acute Code(s): E11.9 - Type 2 diabetes mellitus without complications Plan 03/03: restart prior outpt regimen with the exception of modified insulin regimen. will need to monitor FSBS closely with resumption of metformin, adjust insulin accordingly. will not restart the following at full dose: gabapentin (600 TID), metformin (1000 BIDWM), flomax (0.8 QHS), clozaril (unclear). will titrate those medications back toward prior outpt dosing. mainstay of psychiatric regimen will be the titration of clozapine back to therapeutic dosing. s/p TBI with impaired cognitive and memory function; keep in mind when considering various therapeutic options. medical problems as per hosptialist note otherwise. 03/04: increase gabapentin to outpt dose of 600 TID. increase tamsulosin to outpt dose of 0.8 QHS. titrate clozapine to 75 mg QHS (goal of 75/200). continue metformin 500 BID, consult with hospitalist re insulin dosing. 03/05: gradual improvement day by day. continue clozaril titration, 100 mg tonight. 03/06: continue clozaril titration, to 125 mg tonight. continue over w/e as tolerated, 25 mg per night. colace 100 BID added for constipation. case d/w dr. torres of GI. brian recommended colace for constipation. noted that per surgical report, bowel obstruction was caused by torsion around mesentery which is not c/w clozaril-mediated bowel obstruction. 03/07: Titrate Clozari as tolerated. 03/08: Titrate Clozari as tolerated. Otherwise continue current management and treatment plan. 03/09: increase clozaril to 175 mg tonight. gradually improving. 03/10: mood clearly improved, AH sometimes good, sometimes bad. asking for in-person therapist. gradual improvement continues. 03/11: increase clozapine to 225 QHS. pt requests to have all medication at HS to reduce daytime sedation. asking for klonopin, [facility] has no record of klonopin script. 03/12: increase clozapine to 250 mg QHS. improving psychotic Sx. 03/13: nocturia persists. increase clozapine to 275 as of tonight, which is goal dosing. observe for stability or need for further dose escalation. 03/14/2024: No changes Reason for continued inpatient stay Substantial Risk for: rapid decompensation Time Spent With Patient Time: Total time managing care of this patient today ____ minutes.
--- NOTE | 2024-03-14 11:34 | PM.EVENT ---
Event Note Date of Service: 03/14/24 Event Note: Patient's blood glucose levels have been elevated above baseline since recent changes to psychiatric medications. Will increase patient's metformin from 500 mg b.i.d. to 1000 mg b.i.d.. We will continue to follow for now monitoring POC and consider increasing Lantus as necessary. Time Spent With Patient Time: Total time managing care of this patient today ____ minutes.
[2024-03-14 12:32] LABS: Glucose, Whole Blood 290 mg/dL (60-115)
[2024-03-14] MEDS: metFORMIN HCl 1,000 MG TABLET 1000 MG PO (16:15)
[2024-03-14 17:39] LABS: Glucose, Whole Blood 218 mg/dL (60-115)
[2024-03-14 20:00] VITALS: BP 113/60; PULSE 82; RESP 16; TEMP 36.6; O2SAT 100
[2024-03-14 21:06] LABS: Glucose, Whole Blood 221 mg/dL (60-115)
[2024-03-14] MEDS: Insulin Glargine,Hum.rec.anlog 100 UNIT/ML 10 ML VIAL 15 UNIT SUBCUT (22:15)
[2024-03-14] MEDS: cloZAPine 25 MG TABLET 75 MG PO (22:18)
[2024-03-14] MEDS: Atorvastatin Calcium 40 MG TABLET PO (22:19)
[2024-03-14] MEDS: cloZAPine 100 MG TABLET 200 MG PO (22:19)
[2024-03-14] MEDS: Tamsulosin HCL 0.4 MG CAPSULE 0.8 MG PO (22:20)
[2024-03-14] MEDS: fluPHENAZine HCl 1 MG TABLET PO (22:21)
[2024-03-15] MEDS: Levothyroxine Sodium 150 MCG TABLET PO (06:36)
[2024-03-15 08:00] VITALS: BP 134/59; PULSE 73; RESP 16; TEMP 36.7; O2SAT 98
[2024-03-15 08:10] LABS: Glucose, Whole Blood 128 mg/dL (60-115)
[2024-03-15] MEDS: Nicotine Polacrilex Lozenge 2 MG LOZENGE BUCCAL ×7 (08:24→23:04)
[2024-03-15 08:42] VITALS: BP 134/61; PULSE 73
[2024-03-15] MEDS: Fluticasone/Umeclidinium/Vilanterol 100/62.5/25 BLST.W.DEV 1 PUFF INHALE (08:42)
[2024-03-15] MEDS: Fluticasone Propionate Nasal 16 GM SPRAY 1 SPRAY NOSTRIL-B (08:42)
[2024-03-15] MEDS: Loratadine 10 MG TABLET PO (08:42)
[2024-03-15] MEDS: Nicotine 7 MG PATCH.TD24 TRANSDERMA (08:42)
[2024-03-15] MEDS: Gabapentin 300 MG CAPSULE 600 MG PO ×3 (08:42→23:02)
[2024-03-15] MEDS: atenoloL 25 MG TABLET PO (08:42)
[2024-03-15] MEDS: Lithium Carbonate ER 450 MG TABLET.ER PO ×2 (08:43→23:02)
[2024-03-15] MEDS: metFORMIN HCl 1,000 MG TABLET 1000 MG PO ×2 (08:43→16:54)
[2024-03-15] MEDS: Lidocaine 4 % Patch ADH..PATCH 1 PATCH TRANSDERMA (08:43)
--- NOTE | 2024-03-15 10:36 | P.PNPSI_ITS ---
Subjective Subjective Date of Service: 03/15/24 Reason For Visit: Unspecified Schizophrenia Spectrum and other psych Interim History: Met with patient. Discussed with Nursing. Adherent with treatment. Pleasant. Feeling safe in the hospital. Feels the medications have been helpful and he is able to control his thoughts better. Anxiety unremarkable. Sleep okay. Enuresis last night- discussed flomax and will lower dose from 0.8mg to 0.4mg. Medication Compliance: Yes Side effects from medications: No Attending Groups: No Review of Systems Acute medical concerns: No Review of Systems Review of Systems Yes all other systems are reviewed and are negative Mental Status Exam Mental Status Exam Narrative: adequately dressed and groomed, cooperative with interview, no PMA/PMR, speech generally nml rate, amount, loudness, latency. somewhat reduced tone. thoughts mostly linear, logical. less intense delusions. affect constricted, normo- intense, non-labile. no SI/SIBI/HI/AVH expressed. Diagnostics Vital Signs (24Hr): Vital Signs - 24 hr 03/14/24 20:00 03/15/24 08:00 03/15/24 08:42 Temperature 98 F 98.1 F Pulse Rate 82 73 73 Respiratory Rate 16 16 Blood Pressure 113/60 134/59 L 134/61 Pulse Oximetry 100 98 Oxygen Delivery Method Room Air Room Air BMI result Body Mass Index 21.8 Labs 03/04/24 08:33 03/09/24 08:14 Labs: Laboratory Results - last 48 hr 03/13/24 03/13/24 03/13/24 12:05 17:30 21:18 POC Glucose 396 H* 124 H 320 H 03/14/24 03/14/24 03/14/24 09:03 12:28 17:35 POC Glucose 151 H 290 H 218 H 03/14/24 03/15/24 21:00 08:05 POC Glucose 221 H 128 H Medications Medications Current Medications Acetaminophen (Acetaminophen 325 Mg Tablet) 975 mg PO Q6H PRN PRN Reason: Headache/Pain Mild Scale (1-3) Al Hydroxide/Mg Hydroxide (Magnesium Hydrox/Alum Hydrox 30 Ml Oral.Susp) 30 ml PO Q6H PRN PRN Reason: Heartburn/Nausea Albuterol Sulfate (Albuterol Sulfate 90 Mcg 8 Gm Inhaler) 2 puff INHALE RQ4H PRN PRN Reason: Shortness of Breath Atenolol (Atenolol 25 Mg Tablet) 25 mg PO DAILY [facility]; Protocol Last Admin: 03/15/24 08:42 Dose: 25 mg Atorvastatin Calcium (Atorvastatin Calcium 40 Mg Tablet) 40 mg PO BEDTIME [facility] Last Admin: 03/14/24 22:19 Dose: 40 mg Clozapine (Clozapine 100 Mg Tablet) 200 mg PO BEDTIME [facility] Last Admin: 03/14/24 22:19 Dose: 200 mg Clozapine (Clozapine 25 Mg Tablet) 75 mg PO BEDTIME [facility] Last Admin: 03/14/24 22:18 Dose: 75 mg Docusate Sodium (Docusate Sodium 100 Mg Capsule) 100 mg PO BID PRN PRN Reason: constipation Fluphenazine HCl (Fluphenazine Hcl 1 Mg Tablet) 1 mg PO BEDTIME [facility] Last Admin: 03/14/24 22:21 Dose: 1 mg Fluticasone Propionate (Fluticasone Propionate Nasal 16 Gm [place]) 1 spray NOSTRIL-B DAILY [facility] Last Admin: 03/15/24 08:42 Dose: 1 spray Fluticasone/Umeclidinium/Vilanterol (Fluticasone/Umeclidinium/Vilanterol 100/62.5/25 Blst.W.Dev) 1 puff INHALE RDAILY [facility] Last Admin: 03/15/24 08:42 Dose: 1 puff Gabapentin (Gabapentin 300 Mg Capsule) 600 mg PO TID [facility] Last Admin: 03/15/24 08:42 Dose: 600 mg Glucose (Glucose Gel 15 Gm Gel..Gram.) 15 gm PO Q15M PRN; Protocol PRN Reason: per Hypoglycemia Standing Ord. Dextrose (D10) 250 mls @ 750 mls/hr IV Q15M PRN; Protocol PRN Reason: per Hypoglycemia Standing Ord. Insulin Glargine (Insulin Glargine,Hum.Rec.Anlog 100 Unit/Ml 10 Ml Vial) 15 unit SUBCUT BEDTIME [facility] Last Admin: 03/14/24 22:15 Dose: 15 unit Insulin Human Lispro (Insulin Lispro 100 Unit/Ml 3 Ml Vial) 0 unit SUBCUT QIDACHS [facility]; Protocol Last Admin: 03/15/24 08:48 Dose: Not Given Levothyroxine Sodium (Levothyroxine Sodium 150 Mcg Tablet) 150 mcg PO DAILY@0600 [facility] Last Admin: 03/15/24 06:36 Dose: 150 mcg Lidocaine (Lidocaine 4 % Patch Adh..Patch) 1 patch TRANSDERMA DAILY [facility]; Protocol Last Admin: 03/15/24 08:43 Dose: 1 patch [place] Carbonate ([place] Carbonate Er 450 Mg Tablet.Er) 450 mg PO BID [facility] Last Admin: 03/15/24 08:43 Dose: 450 mg Loratadine (Loratadine 10 Mg Tablet) 10 mg PO DAILY [facility] Last Admin: 03/15/24 08:42 Dose: 10 mg Magnesium Hydroxide (Milk Of Magnesia 30 Ml Oral.Susp) 30 ml PO DAILY PRN PRN Reason: Constipation Metformin HCl (Metformin Hcl 1,000 Mg Tablet) 1,000 mg PO BIDWM [facility] Last Admin: 03/15/24 08:43 Dose: 1,000 mg Nicotine (Nicotine 7 Mg Patch.Td24) 7 mg TRANSDERMA DAILY [facility] Last Admin: 03/15/24 08:42 Dose: 7 mg Nicotine Polacrilex (Nicotine Polacrilex Lozenge 2 Mg Lozenge) 2 mg BUCCAL Q2H PRN PRN Reason: Nicotine Cravings Last Admin: 03/15/24 08:24 Dose: 2 mg Tamsulosin HCl (Tamsulosin Hcl 0.4 Mg Capsule) 0.8 mg PO BEDTIME [facility] Last Admin: 03/14/24 22:20 Dose: 0.8 mg Trazodone HCl (Trazodone Hcl 50 Mg Tablet) 50 mg PO BEDTIME MRX1 PRN PRN Reason: Insomnia Last Admin: 03/07/24 22:45 Dose: 50 mg Allergies Allergies Allergy/AdvReac Type Severity Reaction Status Date / Time amoxicillin [AMOXICILLIN] Allergy Intermediate SKIN RASH Verified 02/15/24 12:34 egg [EGGS] Allergy Intermediate HIVES, Verified 02/15/24 12:34 VOMITING Penicillins [PENICILLINS] Allergy Intermediate SKIN RASH Verified 02/15/24 12:34 Sulfa (Sulfonamide Allergy Intermediate SKIN RASH Verified 02/15/24 12:34 Antibiotics) [SULFA (SULFONAMIDE ANTIBIOTICS)] trimethoprim [TRIMETHOPRIM] Allergy Intermediate SKIN RASH Verified 02/15/24 12:34 penicillin V Allergy Unknown Unknown Verified 02/15/24 12:34 haloperidol [From Haldol] Allergy Unknown Verified 02/15/24 12:34 Latex, Natural Rubber Allergy Unknown Verified 02/15/24 12:34 methylprednisolone Allergy Unknown Verified 02/15/24 12:34 [From Solu-Medrol] penicillin Allergy Unknown Unknown Uncoded 10/10/20 14:35 sultamicillin Allergy Unknown Unknown Uncoded 10/10/20 14:35 trimethoprim Allergy Unknown Unknown Uncoded 10/10/20 14:35 Assessment & Plan Assessment & Plan (1) Encounter for staple removal: Status: Acute Code(s): Z48.02 - Encounter for removal of sutures Assessment and Plan: s/p SB resection admitted for behavioral issues good GI fumctiom looks well abd soft, incision clean, wellhealed kelli removed seen and examined independently 58-year-old male with history of schizophrenia, insulin-dependent type 2 diabetes, hypothyroidism, asthma/COPD overlap, hyperlipidemia admitted to adult Psychiatry who is 2 weeks s/p ex lap, with resection of about 220 cm small bladder with reanastomosis for high grade SBO. He is doing well post operatively. His abdomen is benign and incision clean, umbilical wound opening healing well. His kelli were removed. (2) Traumatic brain injury: Status: Acute Code(s): S06.9X9A - Unspecified intracranial injury with loss of consciousness of unspecified duration, initial encounter (3) Schizophrenia: Status: Acute Code(s): F20.9 - Schizophrenia, unspecified (4) Diabetes mellitus type 2 in nonobese: Status: Acute Code(s): E11.9 - Type 2 diabetes mellitus without complications Plan 03/03: restart prior outpt regimen with the exception of modified insulin regimen. will need to monitor FSBS closely with resumption of metformin, adjust insulin accordingly. will not restart the following at full dose: gabapentin (600 TID), metformin (1000 BIDWM), flomax (0.8 QHS), clozaril (unclear). will titrate those medications back toward prior outpt dosing. mainstay of psychiatric regimen will be the titration of clozapine back to therapeutic dosing. s/p TBI with impaired cognitive and memory function; keep in mind when considering various therapeutic options. medical problems as per hosptialist note otherwise. 03/04: increase gabapentin to outpt dose of 600 TID. increase tamsulosin to outpt dose of 0.8 QHS. titrate clozapine to 75 mg QHS (goal of 75/200). continue metformin 500 BID, consult with hospitalist re insulin dosing. 03/05: gradual improvement day by day. continue clozaril titration, 100 mg tonight. 03/06: continue clozaril titration, to 125 mg tonight. continue over w/e as tolerated, 25 mg per night. colace 100 BID added for constipation. case d/w dr. torres of GI. torres recommended colace for constipation. noted that per surgical report, bowel obstruction was caused by torsion around mesentery which is not c/w clozaril-mediated bowel obstruction. 03/07: Titrate Clozari as tolerated. 03/08: Titrate Clozari as tolerated. Otherwise continue current management and treatment plan. 03/09: increase clozaril to 175 mg tonight. gradually improving. 03/10: mood clearly improved, AH sometimes good, sometimes bad. asking for in-person therapist. gradual improvement continues. 03/11: increase clozapine to 225 QHS. pt requests to have all medication at HS to reduce daytime sedation. asking for klonopin, [facility] has no record of klonopin script. 03/12: increase clozapine to 250 mg QHS. improving psychotic Sx. 03/13: nocturia persists. increase clozapine to 275 as of tonight, which is goal dosing. observe for stability or need for further dose escalation. 03/14/2024: No changes 03/15: Enuresis last night- discussed flomax and will lower dose from 0.8mg to 0.4mg. Reason for continued inpatient stay Substantial Risk for: rapid decompensation Time Spent With Patient Time: Total time managing care of this patient today ____ minutes.
[2024-03-15 12:23] LABS: Glucose, Whole Blood 272 mg/dL (60-115)
[2024-03-15] MEDS: Insulin Lispro 100 UNIT/ML 3 ML VIAL SUBCUT ×3 (13:04→22:09)
[2024-03-15 17:45] LABS: Glucose, Whole Blood 185 mg/dL (60-115)
[2024-03-15 19:49] VITALS: BP 131/60; PULSE 79; RESP 18; TEMP 36.9; O2SAT 98
[2024-03-15 22:02] LABS: Glucose, Whole Blood 198 mg/dL (60-115)
[2024-03-15] MEDS: Insulin Glargine,Hum.rec.anlog 100 UNIT/ML 10 ML VIAL 15 UNIT SUBCUT (22:09)
[2024-03-15] MEDS: Tamsulosin HCL 0.4 MG CAPSULE PO (23:01)
[2024-03-15] MEDS: cloZAPine 25 MG TABLET 75 MG PO (23:01)
[2024-03-15] MEDS: fluPHENAZine HCl 1 MG TABLET PO (23:02)
[2024-03-15] MEDS: cloZAPine 100 MG TABLET 200 MG PO (23:02)
[2024-03-15] MEDS: Atorvastatin Calcium 40 MG TABLET PO (23:02)
[2024-03-16] MEDS: Levothyroxine Sodium 150 MCG TABLET PO (05:02)
[2024-03-16] MEDS: Nicotine Polacrilex Lozenge 2 MG LOZENGE BUCCAL ×6 (05:02→22:08)
[2024-03-16 07:52] VITALS: BP 107/52; PULSE 75; RESP 14; TEMP 36.9; O2SAT 91
[2024-03-16 07:56] LABS: Glucose, Whole Blood 166 mg/dL (60-115)
[2024-03-16] MEDS: Fluticasone Propionate Nasal 16 GM SPRAY 1 SPRAY NOSTRIL-B (08:40)
[2024-03-16] MEDS: Gabapentin 300 MG CAPSULE 600 MG PO ×3 (08:40→22:12)
[2024-03-16] MEDS: Fluticasone/Umeclidinium/Vilanterol 100/62.5/25 BLST.W.DEV 1 PUFF INHALE (08:40)
[2024-03-16] MEDS: Lidocaine 4 % Patch ADH..PATCH 1 PATCH TRANSDERMA (08:40)
[2024-03-16] MEDS: Loratadine 10 MG TABLET PO (08:41)
[2024-03-16] MEDS: Lithium Carbonate ER 450 MG TABLET.ER PO ×2 (08:41→22:13)
[2024-03-16] MEDS: Insulin Lispro 100 UNIT/ML 3 ML VIAL SUBCUT ×3 (08:41→22:09)
[2024-03-16] MEDS: Nicotine 7 MG PATCH.TD24 TRANSDERMA (08:41)
[2024-03-16] MEDS: metFORMIN HCl 1,000 MG TABLET 1000 MG PO ×2 (08:41→16:54)
[2024-03-16 08:45] VITALS: BP 104/64; PULSE 78
[2024-03-16] MEDS: atenoloL 25 MG TABLET PO (08:45)
[2024-03-16 09:02] LABS: Neut%MD 67.2 %; Neutrophils Absolute Auto 5.9 x10*3/uL (2.0-8.3); WBCANC 8.8 X10*3/uL
[2024-03-16 09:17] LABS: Creatinine Clr Calc Pharmacy 112.1; Estimated Glomerular Filt Rate > 60
--- NOTE | 2024-03-16 10:38 | P.PNPSI_ITS ---
Subjective Subjective Date of Service: 03/16/24 Reason For Visit: Unspecified Schizophrenia Spectrum and other psych Subjective Notes: Conditional Voluntary Interim History: Reviewed with Dr. Garza. pt reports feeling anxious and depressed today; he reports hoping to return home soon. Pt stated, I'm sad because I don't have love in my life . Pt reports auditory hallucinations; pt stated, smoking, coffee and PRN's help with my voices . Pt denies SI/HI/VH. Medication Compliance: Yes Attending Groups: No Review of Systems Constitutional: Reports as per HPI Eyes: Reports as per HPI Reports as per HPI Cardiovascular: Reports as per HPI Respiratory: Reports as per HPI Gastrointestinal: Reports as per HPI Genitourinary: Reports as per HPI Musculoskeletal: Reports as per HPI Skin/Breast: Reports as per HPI Reports as per HPI Psychiatric: Reports as per HPI Endocrine: Reports as per HPI Hematologic/Lymphatic: Reports as per HPI Allergic/Immunologic: Reports as per HPI Mental Status Exam Mental Status Exam Patient Appearance: Disheveled Patient Orientation: Person, Place, Time and Situation Level of Consciousness: Appropriate Patient Behavior: Cooperative and Anxious Mood Description: Calm Affect Description: Flat Ability to Follow Directions: Fair Speech Pattern: Clear Hallucinations: Auditory Thought Process: Goal Oriented Thought Content: positive for Linear Judgement: Fair Diagnostics Vital Signs (24Hr): Vital Signs - 24 hr 03/15/24 19:49 03/16/24 07:52 03/16/24 08:45 Temperature 98.4 F 98.5 F Pulse Rate 79 75 78 Respiratory Rate 18 14 Blood Pressure 131/60 107/52 L 104/64 Pulse Oximetry 98 91 L Oxygen Delivery Method Room Air Room Air BMI result Body Mass Index 21.8 Labs 03/04/24 08:33 03/16/24 08:30 Labs: Laboratory Results - last 48 hr 03/14/24 03/14/24 03/14/24 12:28 17:35 21:00 Absolute Neuts (auto) Creatinine Estim Creat Clear Calc Estimated GFR POC Glucose 290 H 218 H 221 H 03/15/24 03/15/24 03/15/24 08:05 12:18 17:40 Absolute Neuts (auto) Creatinine Estim Creat Clear Calc Estimated GFR POC Glucose 128 H 272 H 185 H 03/15/24 03/16/24 03/16/24 21:58 07:46 08:30 Absolute Neuts (auto) 5.9 Creatinine 0.76 Estim Creat Clear Calc 112.1 Estimated GFR > 60 POC Glucose 198 H 166 H Medications Medications Current Medications Acetaminophen (Acetaminophen 325 Mg Tablet) 975 mg PO Q6H PRN PRN Reason: Headache/Pain Mild Scale (1-3) Al Hydroxide/Mg Hydroxide (Magnesium Hydrox/Alum Hydrox 30 Ml Oral.Susp) 30 ml PO Q6H PRN PRN Reason: Heartburn/Nausea Albuterol Sulfate (Albuterol Sulfate 90 Mcg 8 Gm Inhaler) 2 puff INHALE RQ4H PRN PRN Reason: Shortness of Breath Atenolol (Atenolol 25 Mg Tablet) 25 mg PO DAILY [facility]; Protocol Last Admin: 03/16/24 08:45 Dose: 25 mg Atorvastatin Calcium (Atorvastatin Calcium 40 Mg Tablet) 40 mg PO BEDTIME [facility] Last Admin: 03/15/24 23:02 Dose: 40 mg Clozapine (Clozapine 100 Mg Tablet) 200 mg PO BEDTIME [facility] Last Admin: 03/15/24 23:02 Dose: 200 mg Clozapine (Clozapine 25 Mg Tablet) 75 mg PO BEDTIME [facility] Last Admin: 03/15/24 23:01 Dose: 75 mg Docusate Sodium (Docusate Sodium 100 Mg Capsule) 100 mg PO BID PRN PRN Reason: constipation Fluphenazine HCl (Fluphenazine Hcl 1 Mg Tablet) 1 mg PO BEDTIME [facility] Last Admin: 03/15/24 23:02 Dose: 1 mg Fluticasone Propionate (Fluticasone Propionate Nasal 16 Gm [place]) 1 spray NOSTRIL-B DAILY [facility] Last Admin: 03/16/24 08:40 Dose: 1 spray Fluticasone/Umeclidinium/Vilanterol (Fluticasone/Umeclidinium/Vilanterol 100/62.5/25 Blst.W.Dev) 1 puff INHALE RDAILY [facility] Last Admin: 03/16/24 08:40 Dose: 1 puff Gabapentin (Gabapentin 300 Mg Capsule) 600 mg PO TID [facility] Last Admin: 03/16/24 08:40 Dose: 600 mg Glucose (Glucose Gel 15 Gm Gel..Gram.) 15 gm PO Q15M PRN; Protocol PRN Reason: per Hypoglycemia Standing Ord. Dextrose (D10) 250 mls @ 750 mls/hr IV Q15M PRN; Protocol PRN Reason: per Hypoglycemia Standing Ord. Insulin Glargine (Insulin Glargine,Hum.Rec.Anlog 100 Unit/Ml 10 Ml Vial) 15 unit SUBCUT BEDTIME [facility] Last Admin: 03/15/24 22:09 Dose: 15 unit Insulin Human Lispro (Insulin Lispro 100 Unit/Ml 3 Ml Vial) 0 unit SUBCUT QIDACHS [facility]; Protocol Last Admin: 03/16/24 08:41 Dose: 2 unit Levothyroxine Sodium (Levothyroxine Sodium 150 Mcg Tablet) 150 mcg PO DAILY@0600 [facility] Last Admin: 03/16/24 05:02 Dose: 150 mcg Lidocaine (Lidocaine 4 % Patch Adh..Patch) 1 patch TRANSDERMA DAILY [facility]; Protocol Last Admin: 03/16/24 08:40 Dose: 1 patch [place] Carbonate (Page Carbonate Er 450 Mg Tablet.Er) 450 mg PO BID [facility] Last Admin: 03/16/24 08:41 Dose: 450 mg Loratadine (Loratadine 10 Mg Tablet) 10 mg PO DAILY [facility] Last Admin: 03/16/24 08:41 Dose: 10 mg Magnesium Hydroxide (Milk Of Magnesia 30 Ml Oral.Susp) 30 ml PO DAILY PRN PRN Reason: Constipation Metformin HCl (Metformin Hcl 1,000 Mg Tablet) 1,000 mg PO BIDWM [facility] Last Admin: 03/16/24 08:41 Dose: 1,000 mg Nicotine (Nicotine 7 Mg Patch.Td24) 7 mg TRANSDERMA DAILY [facility] Last Admin: 03/16/24 08:41 Dose: 7 mg Nicotine Polacrilex (Nicotine Polacrilex Lozenge 2 Mg Lozenge) 2 mg BUCCAL Q2H PRN PRN Reason: Nicotine Cravings Last Admin: 03/16/24 05:02 Dose: 2 mg Tamsulosin HCl (Tamsulosin Hcl 0.4 Mg Capsule) 0.4 mg PO BEDTIME [facility] Last Admin: 03/15/24 23:01 Dose: 0.4 mg Trazodone HCl (Trazodone Hcl 50 Mg Tablet) 50 mg PO BEDTIME MRX1 PRN PRN Reason: Insomnia Last Admin: 03/07/24 22:45 Dose: 50 mg Allergies Allergies Allergy/AdvReac Type Severity Reaction Status Date / Time amoxicillin [AMOXICILLIN] Allergy Intermediate SKIN RASH Verified 02/15/24 12:34 egg [EGGS] Allergy Intermediate HIVES, Verified 02/15/24 12:34 VOMITING Penicillins [PENICILLINS] Allergy Intermediate SKIN RASH Verified 02/15/24 12:34 Sulfa (Sulfonamide Allergy Intermediate SKIN RASH Verified 02/15/24 12:34 Antibiotics) [SULFA (SULFONAMIDE ANTIBIOTICS)] trimethoprim [TRIMETHOPRIM] Allergy Intermediate SKIN RASH Verified 02/15/24 12:34 penicillin V Allergy Unknown Unknown Verified 02/15/24 12:34 haloperidol [From Haldol] Allergy Unknown Verified 02/15/24 12:34 Latex, Natural Rubber Allergy Unknown Verified 02/15/24 12:34 methylprednisolone Allergy Unknown Verified 02/15/24 12:34 [From Solu-Medrol] penicillin Allergy Unknown Unknown Uncoded 10/10/20 14:35 sultamicillin Allergy Unknown Unknown Uncoded 10/10/20 14:35 trimethoprim Allergy Unknown Unknown Uncoded 10/10/20 14:35 Assessment & Plan Assessment & Plan (1) Encounter for staple removal: Status: Acute Code(s): Z48.02 - Encounter for removal of sutures Assessment and Plan: s/p SB resection admitted for behavioral issues good GI fumctiom looks well abd soft, incision clean, wellhealed kelli removed seen and examined independently 58-year-old male with history of schizophrenia, insulin-dependent type 2 diabetes, hypothyroidism, asthma/COPD overlap, hyperlipidemia admitted to adult Psychiatry who is 2 weeks s/p ex lap, with resection of about 220 cm small bladder with reanastomosis for high grade SBO. He is doing well post operatively. His abdomen is benign and incision clean, umbilical wound opening healing well. His kelli were removed. (2) Traumatic brain injury: Status: Acute Code(s): S06.9X9A - Unspecified intracranial injury with loss of consciousness of unspecified duration, initial encounter (3) Schizophrenia: Status: Acute Code(s): F20.9 - Schizophrenia, unspecified (4) Diabetes mellitus type 2 in nonobese: Status: Acute Code(s): E11.9 - Type 2 diabetes mellitus without complications Plan 03/03: restart prior outpt regimen with the exception of modified insulin regimen. will need to monitor FSBS closely with resumption of metformin, adjust insulin accordingly. will not restart the following at full dose: gabapentin (600 TID), metformin (1000 BIDWM), flomax (0.8 QHS), clozaril (unclear). will titrate those medications back toward prior outpt dosing. mainstay of psychiatric regimen will be the titration of clozapine back to therapeutic dosing. s/p TBI with impaired cognitive and memory function; keep in mind when considering various therapeutic options. medical problems as per hosptialist note otherwise. 03/04: increase gabapentin to outpt dose of 600 TID. increase tamsulosin to outpt dose of 0.8 QHS. titrate clozapine to 75 mg QHS (goal of 75/200). continue metformin 500 BID, consult with hospitalist re insulin dosing. 03/05: gradual improvement day by day. continue clozaril titration, 100 mg tonight. 03/06: continue clozaril titration, to 125 mg tonight. continue over w/e as tolerated, 25 mg per night. colace 100 BID added for constipation. case d/w dr. torres of GI. brian recommended colace for constipation. noted that per surgical report, bowel obstruction was caused by torsion around mesentery which is not c/w clozaril-mediated bowel obstruction. 03/07: Titrate Clozari as tolerated. 03/08: Titrate Clozari as tolerated. Otherwise continue current management and treatment plan. 03/09: increase clozaril to 175 mg tonight. gradually improving. 03/10: mood clearly improved, AH sometimes good, sometimes bad. asking for in-person therapist. gradual improvement continues. 03/11: increase clozapine to 225 QHS. pt requests to have all medication at HS to reduce daytime sedation. asking for klonopin, [facility] has no record of klonopin script. 03/12: increase clozapine to 250 mg QHS. improving psychotic Sx. 03/13: nocturia persists. increase clozapine to 275 as of tonight, which is goal dosing. observe for stability or need for further dose escalation. 03/14/2024: No changes 03/15: Enuresis last night- discussed flomax and will lower dose from 0.8mg to 0.4mg. 03/16: continue current tx plan. Patient educated on: medication risk/benefits Informed Consent: understands Reason for continued inpatient stay Substantial Risk for: med/psych decompensation Time Spent With Patient Time: Total time managing care of this patient today _20___ minutes.
[2024-03-16 13:05] LABS: Glucose, Whole Blood 105 mg/dL (60-115)
[2024-03-16 17:55] LABS: Glucose, Whole Blood 285 mg/dL (60-115)
[2024-03-16 19:45] VITALS: BP 143/64; PULSE 76; RESP 18; TEMP 37.1; O2SAT 95
[2024-03-16 22:07] LABS: Glucose, Whole Blood 284 mg/dL (60-115)
[2024-03-16] MEDS: Insulin Glargine,Hum.rec.anlog 100 UNIT/ML 10 ML VIAL 15 UNIT SUBCUT (22:08)
[2024-03-16] MEDS: cloZAPine 25 MG TABLET 75 MG PO (22:12)
[2024-03-16] MEDS: cloZAPine 100 MG TABLET 200 MG PO (22:13)
[2024-03-16] MEDS: Atorvastatin Calcium 40 MG TABLET PO (22:13)
[2024-03-16] MEDS: Tamsulosin HCL 0.4 MG CAPSULE PO (22:13)
[2024-03-16] MEDS: fluPHENAZine HCl 1 MG TABLET PO (22:14)
[2024-03-17] MEDS: Levothyroxine Sodium 150 MCG TABLET PO (06:17)
[2024-03-17 08:56] LABS: Glucose, Whole Blood 175 mg/dL (60-115)
[2024-03-17 09:00] VITALS: BP 112/68; PULSE 76; RESP 16; TEMP 36.4; O2SAT 94
[2024-03-17] MEDS: Insulin Lispro 100 UNIT/ML 3 ML VIAL SUBCUT ×4 (09:03→22:28)
[2024-03-17 09:04] VITALS: BP 112/68; PULSE 76
[2024-03-17] MEDS: metFORMIN HCl 1,000 MG TABLET 1000 MG PO ×2 (09:04→17:26)
[2024-03-17] MEDS: Fluticasone Propionate Nasal 16 GM SPRAY 1 SPRAY NOSTRIL-B (09:04)
[2024-03-17] MEDS: Fluticasone/Umeclidinium/Vilanterol 100/62.5/25 BLST.W.DEV 1 PUFF INHALE (09:04)
[2024-03-17] MEDS: atenoloL 25 MG TABLET PO (09:04)
[2024-03-17] MEDS: Nicotine Polacrilex Lozenge 2 MG LOZENGE BUCCAL ×7 (09:05→23:39)
[2024-03-17] MEDS: Gabapentin 300 MG CAPSULE 600 MG PO ×3 (09:06→22:32)
[2024-03-17] MEDS: Loratadine 10 MG TABLET PO (09:06)
[2024-03-17] MEDS: Lithium Carbonate ER 450 MG TABLET.ER PO ×2 (09:07→22:33)
[2024-03-17] MEDS: Milk of Magnesia 30 ML ORAL.SUSP PO (09:39)
[2024-03-17] MEDS: Docusate Sodium 100 MG CAPSULE PO (09:40)
[2024-03-17] MEDS: Nicotine 7 MG PATCH.TD24 TRANSDERMA (11:36)
[2024-03-17 12:15] LABS: Glucose, Whole Blood 172 mg/dL (60-115)
[2024-03-17] MEDS: Albuterol Sulfate 90 MCG 8 GM INHALER 2 PUFF INHALE (12:15)
[2024-03-17] MEDS: polyethylene glycoL 3350 17 GM POWD.PACK PO (12:29)
--- NOTE | 2024-03-17 15:02 | HO.WOUND ---
Wound Consult: Attempted follow up 58yr old? Male admitted to [facility] on 03/02/24 to the Inpatient Behavioral Health Unit - See progress notes and H&P for detailed history.? Recent Inpatient [facility] admission see H&P for details. Wound consult follow up for Right Great Toe wound s/p debridement in ED.Arrival earlier in the day patient was meeting with providers and upon my return this afternoon the dressing has since be changed - will attempt follow up at future date and or time.
[2024-03-17] MEDS: Sennosides/Docusate Sodium TABLET 2 TAB PO ×2 (16:00→22:32)
--- NOTE | 2024-03-17 16:30 | PM.EVENT ---
Event Note Date of Service: 03/17/24 Event Note: Glucose levels slowly improving with periods of hyperglycemia in the high 200s however also had one borderline low reading at 105 around noon time yesterday. Will continue with lantus 15 units nightly and ssi. Continue metformin 100mg BIDWM. Will also add glipizide 2.5mg xr. Will continue following glucose tomorrow and if controlled will sign off. Time Spent With Patient Time: Total time managing care of this patient today ____ minutes.
[2024-03-17] MEDS: clonazePAM 0.5 MG TABLET PO (17:26)
[2024-03-17 17:34] LABS: Glucose, Whole Blood 220 mg/dL (60-115)
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
[2024-03-17 20:00] VITALS: BP 106/60; PULSE 80; RESP 16; TEMP 36.9; O2SAT 96
[2024-03-17 21:08] LABS: Glucose, Whole Blood 221 mg/dL (60-115)
[2024-03-17] MEDS: Insulin Glargine,Hum.rec.anlog 100 UNIT/ML 10 ML VIAL 15 UNIT SUBCUT (22:27)
[2024-03-17] MEDS: cloZAPine 25 MG TABLET 75 MG PO (22:31)
[2024-03-17] MEDS: cloZAPine 100 MG TABLET 200 MG PO (22:34)
[2024-03-17] MEDS: Tamsulosin HCL 0.4 MG CAPSULE PO (22:34)
[2024-03-17] MEDS: Atorvastatin Calcium 40 MG TABLET PO (22:35)
[2024-03-17] MEDS: fluPHENAZine HCl 1 MG TABLET PO (22:35)
[2024-03-18] MEDS: Levothyroxine Sodium 150 MCG TABLET PO (05:58)
[2024-03-18 07:57] VITALS: BP 98/48; PULSE 77; RESP 14; TEMP 36.9; O2SAT 95
[2024-03-18 08:46] LABS: Glucose, Whole Blood 160 mg/dL (60-115)
[2024-03-18] MEDS: polyethylene glycoL 3350 17 GM POWD.PACK PO (08:55)
[2024-03-18] MEDS: Gabapentin 300 MG CAPSULE 600 MG PO ×3 (08:56→22:20)
[2024-03-18] MEDS: glipiZIDE XL 2.5 MG TAB.ER.24 PO (08:56)
[2024-03-18] MEDS: Loratadine 10 MG TABLET PO (08:56)
[2024-03-18] MEDS: Sennosides/Docusate Sodium TABLET 2 TAB PO ×2 (08:56→22:22)
[2024-03-18] MEDS: Nicotine Polacrilex Lozenge 2 MG LOZENGE BUCCAL ×6 (08:56→22:23)
[2024-03-18] MEDS: metFORMIN HCl 1,000 MG TABLET 1000 MG PO ×2 (08:56→16:14)
[2024-03-18 08:57] VITALS: BP 113/59; PULSE 79
[2024-03-18] MEDS: Lithium Carbonate ER 450 MG TABLET.ER PO ×2 (08:57→22:22)
[2024-03-18] MEDS: atenoloL 25 MG TABLET PO (08:57)
[2024-03-18] MEDS: Fluticasone Propionate Nasal 16 GM SPRAY 1 SPRAY NOSTRIL-B (09:00)
[2024-03-18] MEDS: Fluticasone/Umeclidinium/Vilanterol 100/62.5/25 BLST.W.DEV 1 PUFF INHALE (09:00)
[2024-03-18] MEDS: Insulin Lispro 100 UNIT/ML 3 ML VIAL SUBCUT ×3 (09:23→22:16)
[2024-03-18] MEDS: Nicotine 7 MG PATCH.TD24 TRANSDERMA (09:34)
--- NOTE | 2024-03-18 09:55 | P.PNPSI_ITS ---
Subjective Subjective Date of Service: 03/18/24 Reason For Visit: Unspecified Schizophrenia Spectrum and other psych Subjective Notes: 3 Day Interim History: Reviewed with Dr. Garza. Nursing reports pt had episode of urine incontinence last evening. Pt continues to report feeling anxious and depressed because not having sexual function and a love life ; pt reports he just wants to get better . Pt denies SI/HI/VH/AH at this time. discussed starting desmopressin; pt agreed to trial. Medication Compliance: Yes Review of Systems Constitutional: Reports as per HPI Eyes: Reports as per HPI Reports as per HPI Cardiovascular: Reports as per HPI Respiratory: Reports as per HPI Gastrointestinal: Reports as per HPI Genitourinary: Reports as per HPI Musculoskeletal: Reports as per HPI Skin/Breast: Reports as per HPI and Denies rash Reports as per HPI Psychiatric: Reports as per HPI Endocrine: Reports as per HPI Hematologic/Lymphatic: Reports as per HPI Allergic/Immunologic: Reports as per HPI Mental Status Exam Mental Status Exam Patient Appearance: Disheveled Patient Orientation: Person, Place, Time and Situation Level of Consciousness: Awake Patient Behavior: Appropriate, Cooperative and Anxious Mood Description: Depressed and Anxious Affect Description: Calm Ability to Follow Directions: Fair Speech Pattern: Clear Hallucinations: None Thought Process: Goal Oriented Thought Content: positive for Goal Oriented Diagnostics Vital Signs (24Hr): Vital Signs - 24 hr 03/17/24 20:00 03/18/24 07:57 03/18/24 08:57 Temperature 98.5 F 98.5 F Pulse Rate 80 77 79 Respiratory Rate 16 14 Blood Pressure 106/60 98/48 L 113/59 L Pulse Oximetry 96 95 Oxygen Delivery Method Room Air Room Air BMI result Body Mass Index 21.8 Labs 03/04/24 08:33 03/16/24 08:30 Labs: Laboratory Results - last 48 hr 03/16/24 03/16/24 03/16/24 12:58 17:49 22:00 POC Glucose 105 285 H 284 H 03/17/24 03/17/24 03/17/24 08:46 12:12 17:29 POC Glucose 175 H 172 H 220 H 03/17/24 03/18/24 21:03 08:37 POC Glucose 221 H 160 H Medications Medications Current Medications Acetaminophen (Acetaminophen 325 Mg Tablet) 975 mg PO Q6H PRN PRN Reason: Headache/Pain Mild Scale (1-3) Al Hydroxide/Mg Hydroxide (Magnesium Hydrox/Alum Hydrox 30 Ml Oral.Susp) 30 ml PO Q6H PRN PRN Reason: Heartburn/Nausea Albuterol Sulfate (Albuterol Sulfate 90 Mcg 8 Gm Inhaler) 2 puff INHALE RQ4H PRN PRN Reason: Shortness of Breath Last Admin: 03/17/24 12:15 Dose: 2 puff Atenolol (Atenolol 25 Mg Tablet) 25 mg PO DAILY [facility]; Protocol Last Admin: 03/18/24 08:57 Dose: 25 mg Atorvastatin Calcium (Atorvastatin Calcium 40 Mg Tablet) 40 mg PO BEDTIME [facility] Last Admin: 03/17/24 22:35 Dose: 40 mg Clonazepam (Clonazepam 0.5 Mg Tablet) 0.5 mg PO BID PRN PRN Reason: anxiety, moderate Last Admin: 03/17/24 17:26 Dose: 0.5 mg Clozapine (Clozapine 100 Mg Tablet) 200 mg PO BEDTIME [facility] Last Admin: 03/17/24 22:34 Dose: 200 mg Clozapine (Clozapine 25 Mg Tablet) 75 mg PO BEDTIME [facility] Last Admin: 03/17/24 22:31 Dose: 75 mg Docusate Sodium (Docusate Sodium 100 Mg Capsule) 100 mg PO BID PRN PRN Reason: constipation Last Admin: 03/17/24 09:40 Dose: 100 mg Fluphenazine HCl (Fluphenazine Hcl 1 Mg Tablet) 1 mg PO BEDTIME [facility] Last Admin: 03/17/24 22:35 Dose: 1 mg Fluticasone Propionate (Fluticasone Propionate Nasal 16 Gm [place]) 1 spray NOSTRIL-B DAILY [facility] Last Admin: 03/18/24 09:00 Dose: 1 spray Fluticasone/Umeclidinium/Vilanterol (Fluticasone/Umeclidinium/Vilanterol 100/62.5/25 Blst.W.Dev) 1 puff INHALE RDAILY [facility] Last Admin: 03/18/24 09:00 Dose: 1 puff Gabapentin (Gabapentin 300 Mg Capsule) 600 mg PO TID [facility] Last Admin: 03/18/24 08:56 Dose: 600 mg Glipizide (Glipizide Xl 2.5 Mg Tab.Er.24) 2.5 mg PO DAILY [facility] Last Admin: 03/18/24 08:56 Dose: 2.5 mg Glucose (Glucose Gel 15 Gm Gel..Gram.) 15 gm PO Q15M PRN; Protocol PRN Reason: per Hypoglycemia Standing Ord. Dextrose (D10) 250 mls @ 750 mls/hr IV Q15M PRN; Protocol PRN Reason: per Hypoglycemia Standing Ord. Insulin Glargine (Insulin Glargine,Hum.Rec.Anlog 100 Unit/Ml 10 Ml Vial) 15 unit SUBCUT BEDTIME [facility] Last Admin: 03/17/24 22:27 Dose: 15 unit Insulin Human Lispro (Insulin Lispro 100 Unit/Ml 3 Ml Vial) 0 unit SUBCUT QIDACHS [facility]; Protocol Last Admin: 03/18/24 09:23 Dose: 2 unit Levothyroxine Sodium (Levothyroxine Sodium 150 Mcg Tablet) 150 mcg PO DAILY@0600 [facility] Last Admin: 03/18/24 05:58 Dose: 150 mcg Lidocaine (Lidocaine 4 % Patch Adh..Patch) 1 patch TRANSDERMA DAILY [facility]; Protocol Last Admin: 03/18/24 09:24 Dose: Not Given [place] Carbonate ([place] Carbonate Er 450 Mg Tablet.Er) 450 mg PO BID [facility] Last Admin: 03/18/24 08:57 Dose: 450 mg Loratadine (Loratadine 10 Mg Tablet) 10 mg PO DAILY [facility] Last Admin: 03/18/24 08:56 Dose: 10 mg Magnesium Hydroxide (Milk Of Magnesia 30 Ml Oral.Susp) 30 ml PO DAILY PRN PRN Reason: Constipation Last Admin: 03/17/24 09:39 Dose: 30 ml Metformin HCl (Metformin Hcl 1,000 Mg Tablet) 1,000 mg PO BIDWM [facility] Last Admin: 03/18/24 08:56 Dose: 1,000 mg Nicotine (Nicotine 7 Mg Patch.Td24) 7 mg TRANSDERMA DAILY [facility] Last Admin: 03/18/24 09:34 Dose: 7 mg Nicotine Polacrilex (Nicotine Polacrilex Lozenge 2 Mg Lozenge) 2 mg BUCCAL Q2H PRN PRN Reason: Nicotine Cravings Last Admin: 03/18/24 08:56 Dose: 2 mg Polyethylene Glycol (Polyethylene Glycol 3350 17 Gm Powd.Pack) 17 gm PO DAILY [facility] Last Admin: 03/18/24 08:55 Dose: 17 gm Senna/Docusate Sodium (Sennosides/Docusate Sodium Tablet) 2 tab PO BID [facility] Last Admin: 03/18/24 08:56 Dose: 2 tab Tamsulosin HCl (Tamsulosin Hcl 0.4 Mg Capsule) 0.4 mg PO BEDTIME [facility] Last Admin: 03/17/24 22:34 Dose: 0.4 mg Trazodone HCl (Trazodone Hcl 50 Mg Tablet) 50 mg PO BEDTIME MRX1 PRN PRN Reason: Insomnia Last Admin: 03/07/24 22:45 Dose: 50 mg Allergies Allergies Allergy/AdvReac Type Severity Reaction Status Date / Time amoxicillin [AMOXICILLIN] Allergy Intermediate SKIN RASH Verified 02/15/24 12:34 egg [EGGS] Allergy Intermediate HIVES, Verified 02/15/24 12:34 VOMITING Penicillins [PENICILLINS] Allergy Intermediate SKIN RASH Verified 02/15/24 12:34 Sulfa (Sulfonamide Allergy Intermediate SKIN RASH Verified 02/15/24 12:34 Antibiotics) [SULFA (SULFONAMIDE ANTIBIOTICS)] trimethoprim [TRIMETHOPRIM] Allergy Intermediate SKIN RASH Verified 02/15/24 12:34 penicillin V Allergy Unknown Unknown Verified 02/15/24 12:34 haloperidol [From Haldol] Allergy Unknown Verified 02/15/24 12:34 Latex, Natural Rubber Allergy Unknown Verified 02/15/24 12:34 methylprednisolone Allergy Unknown Verified 02/15/24 12:34 [From Solu-Medrol] penicillin Allergy Unknown Unknown Uncoded 10/10/20 14:35 sultamicillin Allergy Unknown Unknown Uncoded 10/10/20 14:35 trimethoprim Allergy Unknown Unknown Uncoded 10/10/20 14:35 Assessment & Plan Assessment & Plan (1) Schizophrenia: Status: Acute Code(s): F20.9 - Schizophrenia, unspecified (2) Encounter for staple removal: Status: Acute Code(s): Z48.02 - Encounter for removal of sutures Assessment and Plan: s/p SB resection admitted for behavioral issues good GI fumctiom looks well abd soft, incision clean, wellhealed kelli removed seen and examined independently 58-year-old male with history of schizophrenia, insulin-dependent type 2 diabetes, hypothyroidism, asthma/COPD overlap, hyperlipidemia admitted to adult Psychiatry who is 2 weeks s/p ex lap, with resection of about 220 cm small bowel with reanastomosis for high grade SBO. He is doing well post operatively. His abdomen is benign and incision clean, umbilical wound opening healing well. His kelli were removed. (3) Traumatic brain injury: Status: Acute Code(s): S06.9X9A - Unspecified intracranial injury with loss of consciousness of unspecified duration, initial encounter (4) Diabetes mellitus type 2 in nonobese: Status: Acute Code(s): E11.9 - Type 2 diabetes mellitus without complications Plan 03/03: restart prior outpt regimen with the exception of modified insulin regimen. will need to monitor FSBS closely with resumption of metformin, adjust insulin accordingly. will not restart the following at full dose: gabapentin (600 TID), metformin (1000 BIDWM), flomax (0.8 QHS), clozaril (unclear). will titrate those medications back toward prior outpt dosing. mainstay of psychiatric regimen will be the titration of clozapine back to therapeutic dosing. s/p TBI with impaired cognitive and memory function; keep in mind when considering various therapeutic options. medical problems as per hosptialist note otherwise. 03/04: increase gabapentin to outpt dose of 600 TID. increase tamsulosin to outpt dose of 0.8 QHS. titrate clozapine to 75 mg QHS (goal of 75/200). continue metformin 500 BID, consult with hospitalist re insulin dosing. 03/05: gradual improvement day by day. continue clozaril titration, 100 mg tonight. 03/06: continue clozaril titration, to 125 mg tonight. continue over w/e as tolerated, 25 mg per night. colace 100 BID added for constipation. case d/w dr. torres of GI. brian recommended colace for constipation. noted that per surgical report, bowel obstruction was caused by torsion around mesentery which is not c/w clozaril-mediated bowel obstruction. 03/07: Titrate Clozari as tolerated. 03/08: Titrate Clozari as tolerated. Otherwise continue current management and treatment plan. 03/09: increase clozaril to 175 mg tonight. gradually improving. 03/10: mood clearly improved, AH sometimes good, sometimes bad. asking for in-person therapist. gradual improvement continues. 03/11: increase clozapine to 225 QHS. pt requests to have all medication at HS to reduce daytime sedation. asking for klonopin, [facility] has no record of klonopin script. 03/12: increase clozapine to 250 mg QHS. improving psychotic Sx. 03/13: nocturia persists. increase clozapine to 275 as of tonight, which is goal dosing. observe for stability or need for further dose escalation. 03/14/2024: No changes 03/15: Enuresis last night- discussed flomax and will lower dose from 0.8mg to 0.4mg. 03/16: continue current tx plan. 03/17 scheduled bowel regimen including senna/colace, miralax combination. continue current dose of clozaril. added prn clonazepam 0.5mg po BID for severe anxiety. 03/18: start: desmopressin 0.1mg PO bedtime; monitor for hyponatremia. Patient educated on: diagnosis and medication risk/benefits Informed Consent: understands Reason for continued inpatient stay Substantial Risk for: med/psych decompensation Time Spent With Patient Time: Total time managing care of this patient today _20___ minutes.
[2024-03-18] MEDS: clonazePAM 0.5 MG TABLET PO (11:20)
[2024-03-18 12:33] LABS: Glucose, Whole Blood 177 mg/dL (60-115)
[2024-03-18 20:00] VITALS: BP 126/67; PULSE 84; RESP 18; TEMP 36.9; O2SAT 95
[2024-03-18 20:07] LABS: Glucose, Whole Blood 146 mg/dL (60-115)
[2024-03-18 21:31] LABS: Glucose, Whole Blood 190 mg/dL (60-115)
[2024-03-18] MEDS: Insulin Glargine,Hum.rec.anlog 100 UNIT/ML 10 ML VIAL 15 UNIT SUBCUT (22:18)
[2024-03-18] MEDS: cloZAPine 100 MG TABLET 200 MG PO (22:21)
[2024-03-18] MEDS: fluPHENAZine HCl 1 MG TABLET PO (22:21)
[2024-03-18] MEDS: Atorvastatin Calcium 40 MG TABLET PO (22:22)
[2024-03-18] MEDS: cloZAPine 25 MG TABLET 75 MG PO (22:23)
[2024-03-18] MEDS: Tamsulosin HCL 0.4 MG CAPSULE PO (22:23)
[2024-03-18] MEDS: Desmopressin Acetate 0.2 MG TABLET 0.1 MG PO (22:28)
[2024-03-19] MEDS: Levothyroxine Sodium 150 MCG TABLET PO (06:19)
[2024-03-19] MEDS: Nicotine Polacrilex Lozenge 2 MG LOZENGE BUCCAL ×6 (07:29→23:01)
[2024-03-19 07:30] VITALS: BP 120/55; PULSE 74; RESP 14; TEMP 36.5; O2SAT 96
[2024-03-19 07:50] LABS: Glucose, Whole Blood 185 mg/dL (60-115)
[2024-03-19 09:20] VITALS: BP 120/55; PULSE 74
[2024-03-19] MEDS: glipiZIDE XL 2.5 MG TAB.ER.24 PO (09:20)
[2024-03-19] MEDS: atenoloL 25 MG TABLET PO (09:20)
[2024-03-19] MEDS: Loratadine 10 MG TABLET PO (09:21)
[2024-03-19] MEDS: Lithium Carbonate ER 450 MG TABLET.ER PO ×2 (09:21→22:48)
[2024-03-19] MEDS: Gabapentin 300 MG CAPSULE 600 MG PO ×3 (09:21→22:48)
[2024-03-19] MEDS: Sennosides/Docusate Sodium TABLET 2 TAB PO ×2 (09:21→22:47)
[2024-03-19] MEDS: polyethylene glycoL 3350 17 GM POWD.PACK PO (09:22)
[2024-03-19] MEDS: metFORMIN HCl 1,000 MG TABLET 1000 MG PO ×2 (09:23→18:11)
[2024-03-19] MEDS: Insulin Lispro 100 UNIT/ML 3 ML VIAL SUBCUT ×2 (09:24→18:12)
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
[2024-03-19 12:43] LABS: Glucose, Whole Blood 126 mg/dL (60-115)
--- NOTE | 2024-03-19 15:00 | PM.EVENT ---
Event Note Date of Service: 03/19/24 Event Note: Glucose levels controlled. Continue current therapies as ordered Thank you for allowing me to participate in this consult. Signing off at this time. Please do not hesitate to call for further questions. Time Spent With Patient Time: Total time managing care of this patient today ____ minutes.
[2024-03-19 18:06] LABS: Glucose, Whole Blood 203 mg/dL (60-115)
[2024-03-19 22:15] LABS: Glucose, Whole Blood 103 mg/dL (60-115)
[2024-03-19 22:40] VITALS: BP 138/67; PULSE 86; RESP 16; TEMP 36.3; O2SAT 98
[2024-03-19] MEDS: Atorvastatin Calcium 40 MG TABLET PO (22:45)
[2024-03-19] MEDS: cloZAPine 25 MG TABLET 75 MG PO (22:45)
[2024-03-19] MEDS: cloZAPine 100 MG TABLET 200 MG PO (22:45)
[2024-03-19] MEDS: Desmopressin Acetate 0.2 MG TABLET 0.1 MG PO (22:46)
[2024-03-19] MEDS: fluPHENAZine HCl 1 MG TABLET PO (22:48)
[2024-03-19] MEDS: Tamsulosin HCL 0.4 MG CAPSULE PO (22:48)
[2024-03-19] MEDS: Insulin Glargine,Hum.rec.anlog 100 UNIT/ML 10 ML VIAL 15 UNIT SUBCUT (22:54)
[2024-03-19] MEDS: clonazePAM 0.5 MG TABLET PO (22:59)
[2024-03-20] MEDS: Levothyroxine Sodium 150 MCG TABLET PO (05:36)
[2024-03-20 07:40] VITALS: BP 106/51; PULSE 78; RESP 20; TEMP 36.9; O2SAT 95
[2024-03-20 08:44] LABS: Glucose, Whole Blood 220 mg/dL (60-115)
[2024-03-20] MEDS: polyethylene glycoL 3350 17 GM POWD.PACK PO (09:17)
[2024-03-20] MEDS: Gabapentin 300 MG CAPSULE 600 MG PO (09:18)
[2024-03-20] MEDS: Sennosides/Docusate Sodium TABLET 2 TAB PO (09:18)
[2024-03-20] MEDS: Loratadine 10 MG TABLET PO (09:19)
[2024-03-20] MEDS: glipiZIDE XL 2.5 MG TAB.ER.24 PO (09:19)
[2024-03-20] MEDS: Lithium Carbonate ER 450 MG TABLET.ER PO (09:19)
[2024-03-20] MEDS: metFORMIN HCl 1,000 MG TABLET 1000 MG PO (09:19)
[2024-03-20 09:20] VITALS: BP 106/51; PULSE 80
[2024-03-20] MEDS: atenoloL 25 MG TABLET PO (09:20)
[2024-03-20] MEDS: Insulin Lispro 100 UNIT/ML 3 ML VIAL SUBCUT (09:21)
--- NOTE | 2024-03-20 10:45 | HO.WOUND ---
Wound Consult: Follow up 58yr old? Male admitted to [facility] on 03/02/24 to the Inpatient Behavioral Health Unit - See progress notes and H&P for detailed history.? Recent Inpatient [facility] admission see H&P for details. Wound consult follow up for Right Great Toe wound s/p debridement in ED. Patient agreeable to assessment and photo documentation.? Patient reports neuropathy and reports no tenderness today. Right Great Toe Etiology: Diabetic Foot Wound??Present on Admission Measurements: see charting for detailed measurement Wound Bed: improved wound bed - significantly smaller in size only central area remains open at this time - pink moist wound bed with white slough to edges Drainage / Odor: small amount of serosang drainage no odor noted Edges: ?well defined and nonadherent [place] wound: thick dry peeling tissue Pain: denies tenderness Goals of Treatment: ? Durafiber AG packing and foam dressing to aid in pressure redistribution Recommendations: 1. When applicable maintain blood glucose levels per Providers order. 2. Right Great Toe - Cleanse with NS or soap and water, rinse well pat dry. Lightly pack with Durafiber AGl. Cover with Foam dressing or dry gauze ABD pad and gauze wrap. Change every 3 days and PRN. Recommend follow up out patient Wound Clinic at [address] [place] [id number] and to call for an appointment at time of discharge. [phone].? Re-consult wound care Nurse for wound deterioration or wound changes.
[2024-03-20] MEDS: Nicotine Polacrilex Lozenge 2 MG LOZENGE BUCCAL (10:46)
== END 2024-03-20 10:55 | disposition home or self-care (01) | DRG 885 ==
PROVIDERS: Clinical Nurse Specialist Psychiatric/Mental Health, Adult; Admitting Provider Psychiatry & Neurology Psychiatry; PCP Family Medicine; Visit Provider Psychiatry & Neurology Psychiatry
DX: F20.0 Paranoid schizophrenia (principal); E11.9 Type 2 diabetes mellitus without complications; J44.9 Chronic obstructive pulmonary disease, unspecified; E03.9 Hypothyroidism, unspecified; F17.210 Nicotine dependence, cigarettes, uncomplicated; Z20.822 Contact with and (suspected) exposure to COVID-19; Z71.6 Tobacco abuse counseling; Z87.820 Personal history of traumatic brain injury; Z79.4 Long term (current) use of insulin; Z79.51 Long term (current) use of inhaled steroids; Z79.84 Long term (current) use of oral hypoglycemic drugs; Z79.890 Hormone replacement therapy; Z79.899 Other long term (current) drug therapy
CPT/HCPCS: 36415; 80061; 82565; 82607; 82746; 82947; 83036; 83735; 84439; 84443; 85048; 87635

== ENCOUNTER → 2024-03-02 18:36 | Outpatient (BNV) | payer MEDICARE, MEDICAID, SELFPAY | PROVIDERS: Admitting Provider Psychiatry & Neurology Psychiatry; PCP Family Medicine; Visit Provider Physician Assistant Surgical | DX: Z48.02 Encounter for removal of sutures (principal) | CPT/HCPCS: 99024 ==

== ENCOUNTER → 2024-03-02 18:36 | Outpatient (BNV) | payer MEDICARE, MEDICAID, SELFPAY | PROVIDERS: Admitting Provider Psychiatry & Neurology Psychiatry; PCP Family Medicine; Visit Provider Physician Assistant | DX: E11.621 Type 2 diabetes mellitus with foot ulcer (principal); L97.519 Non-pressure chronic ulcer of other part of right foot with unspecified severity | CPT/HCPCS: 99222; 99499 ==

== ENCOUNTER → 2024-03-02 18:36 | Outpatient (BNV) | payer MEDICARE, MEDICAID, SELFPAY | PROVIDERS: Admitting Provider Psychiatry & Neurology Psychiatry; PCP Family Medicine; Visit Provider Psychiatry & Neurology Psychiatry | DX: F20.0 Paranoid schizophrenia (principal); S06.9X9D Unspecified intracranial injury with loss of consciousness of unspecified duration, subsequent encounter; E11.9 Type 2 diabetes mellitus without complications | CPT/HCPCS: 90792; 99231; 99232; 99239 ==

== ENCOUNTER 2024-04-03 23:53 | Inpatient (IN) | payer MEDICARE, MEDICAID, SELFPAY ==
--- NOTE | ~2024-04-03 | XR_ITS ---
EXAMINATION: XR ABDOMEN KUB CLINICAL INDICATION: Abdominal distention. COMPARISON: 02/16/2024 TECHNIQUE: AP view of the abdomen. FINDINGS: The bowel gas pattern is normal with no evidence of ileus or obstruction. There is retained stool throughout the colon. No unusual soft tissue calcifications are noted. The bones are unremarkable. XR/XR KUB IMPRESSION: 1. Nonobstructive bowel gas pattern. 2. Retained stool throughout the colon.
--- NOTE | ~2024-04-03 | CT_ITS ---
EXAMINATION: CT cervical spine wo IV con, CT head/brain wo IV con INDICATION INFORMATION: Reason for Exam trauma COMPARISON: CT head and cervical spine without contrast 12/15/2020 TECHNIQUE: Separate noncontrast CT examinations of the head and cervical spine were performed. Coronal and sagittal images were created for each examination at the technologist workstation. This CT examination was performed using dose optimization techniques as appropriate, variously including the following: *Automated exposure control *Adjustment of mA and/or kV according to patient size (this includes techniques or standardized protocols for targeted exams where dose is matched to indication/reason for exam; i.e. extremities or head) *Use of iterative reconstruction technique DLP: 1174 mGy-cm FINDINGS: Motion degraded examination Head: No acute osseous or soft tissue abnormality. The mastoid air cells and visualized portions of the paranasal sinuses are well aerated. There is no evidence of acute intracranial hemorrhage or territorial infarction. No abnormal mass effect or midline shift is seen. [place] to white matter differentiation is well preserved. No extra-axial fluid collections are identified. No hydrocephalus. No significant volume loss. There is no abnormal attenuation within the brain parenchyma. Cervical spine: There is no evidence of acute cervical spine fracture. Vertebral bodies remain normal in height. Alignment is maintained. Mild multilevel degenerative disc disease and facet arthropathy. No pre- or paravertebral soft tissue abnormality is identified. Emphysematous changes at the lung apices. The thyroid gland is unremarkable. CT/CT cervical spine wo IV con IMPRESSION: Motion degraded examination. Within this limitation: 1. No acute intracranial abnormality. 2. No cervical spine fracture or traumatic malalignment.
--- NOTE | ~2024-04-03 | XR_ITS ---
EXAMINATION: XR CHEST CLINICAL INFORMATION: Altered mental status. COMPARISON: 02/18/2024. TECHNIQUE: Frontal view of the chest was obtained. FINDINGS: The cardiomediastinal silhouette is stable. Left mid lung field apparent pleural thickening is again seen. There is diffuse left-sided infiltrative change and suggestion of patchy right mid to lower lung field infiltrative change. There is blunting of the left costophrenic angle similar to previous. The bony structures are osteopenic. Soft tissues are unremarkable. XR/XR chest 1V IMPRESSION: 1. Diffuse left-sided infiltrative change and suggestion of patchy right mid to lower lung field infiltrative change. Suspect pneumonia. 2. Left mid lung field apparent pleural thickening is again seen.
[2024-04-04] VITALS (10 sets, daily range): BP systolic 111–134; BP diastolic 56–66; PULSE 90–98; RESP 19–28; TEMP 37–37.4; O2SAT 91–98; BMI 24.0
--- NOTE | 2024-04-04 00:14 | ECG_ITS ---
Test Reason : AMS Blood Pressure : / mmHG Vent. Rate : 096 BPM Atrial Rate : 096 BPM P-R Int : 140 ms QRS Dur : 084 ms QT Int : 340 ms P-R-T Axes : 063 -30 069 degrees QTc Int : 429 ms Normal sinus rhythm Left axis deviation Abnormal ECG When compared with ECG of 15-FEB-2024 13:55, No significant change was found Referred By: Generic ED Physician Electronically Signed By:Severo Sim
[2024-04-04 00:23] LABS: Glucose, Whole Blood 130 mg/dL (60-115)
[2024-04-04 00:25] LABS: MANUAL DIFF FLAG NO
[2024-04-04 00:43] LABS: Anion Gap 13 (12-20); Blood Urea Nitrogen 10 mg/dL (9-16); Calcium 9.1 mg/dL (8.4-10.2); Carbon Dioxide 25 mmol/L (22-29); Chloride 104 mmol/L (96-108); Creatinine Clr Calc Pharmacy 116.6; Estimated Glomerular Filt Rate > 60; Ethanol < 10 mg/dL; Glucose Random 139 mg/dL (60-115); Potassium 4.3 mmol/L (3.3-5.1); Sodium 138 mmol/L (135-145)
[2024-04-04 00:45] LABS: Lactic Acid 2.1 mmol/L (0.5-2.0)
[2024-04-04 00:48] LABS: Troponin-I High Sensitivity 8.1 ng/L (<3.5-35.0)
[2024-04-04 00:50] LABS: Lithium 0.91 mmol/L (0.60-1.20)
[2024-04-04] MEDS: cefTRIAXone sodium 1 GM in 0.9 % Sodium Chloride 50 ML IV (01:15)
[2024-04-04] MEDS: 0.9 % Sodium Chloride 1,000 ML 999 ML IV (01:15)
--- NOTE | 2024-04-04 01:40 | ED.FALL ---
HPI - Fall General Chief Complaint: Fall Stated Complaint: FALL/ AMS Time Seen by Provider: 04/04/24 00:58 Source: patient and EMS Mode of arrival: EMS Limitations: altered mental status History of Present Illness HPI Narrative: Patient is 58 years old history of schizophrenia , insulin dependent type 2 diabetes hypothyroidism asthma/COPD overlap, TBI, hyperlipidemia the discharge from psych floor on 03/19/2024 comes here for nursing home for increased confusion in fall without significant head injury saturating 84% on room air patient has denied any chest pain Related Data Home Medications ?Medication ?Instructions ?Recorded ?Confirmed insulin lispro 100 unit/mL See Protocol subcut TIDAC 03/02/24 03/02/24 subcutaneous solution (Humalog U-100 Insulin) Previous Rx's ?Medication ?Instructions ?Recorded albuterol sulfate 90 mcg/actuation 2 puff inhalation RQ4H PRN 03/19/24 aerosol inhaler (Ventolin HFA) Shortness Of Breath 30 days #1 inhaler atenolol 50 mg tablet 25 mg (1/2 x 50 mg) PO DAILY 30 03/19/24 days #15 tabs atorvastatin 40 mg tablet 40 mg PO BEDTIME 30 days #30 tabs 03/19/24 clonazepam 0.5 mg tablet 0.5 mg PO BID PRN anxiety, 03/19/24 moderate 30 days #60 tabs clozapine 100 mg tablet 200 mg (2 x 100 mg) PO BEDTIME 30 03/19/24 days #60 tabs clozapine 25 mg tablet 75 mg (3 x 25 mg) PO BEDTIME 30 03/19/24 days #90 tabs desmopressin 0.2 mg tablet 0.1 mg (1/2 x 0.2 mg) PO BEDTIME 03/19/24 30 days #15 tabs docusate sodium 100 mg capsule 100 mg PO BID PRN constipation 30 03/19/24 days #60 caps fluphenazine HCl 1 mg tablet 1 mg PO BEDTIME 30 days #30 tabs 03/19/24 fluticasone fur. 100 mcg-umeclid 1 inh inhalation RDAILY 30 days 03/19/24 62.5 mcg-vilant 25 mcg #60 ea inhalat.powder (Trelegy Ellipta) fluticasone propionate 50 1 spray intranasal DAILY 30 days 03/19/24 mcg/actuation nasal #1 inhaler spray,suspension (Flonase Allergy Relief) gabapentin 600 mg tablet 1 tab PO TID 30 days #90 tabs 03/19/24 glipizide 2.5 mg tablet, extended 2.5 mg PO DAILY 30 days #30 tabs 03/19/24 release 24 hr insulin glargine 100 unit/mL 15 unit (0.15 mL) subcut BEDTIME 03/19/24 subcutaneous solution (Lantus 30 days #4.5 mL U-100 Insulin) levothyroxine 150 mcg tablet 1 tab PO DAILY@0600 30 days #30 03/19/24 tabs lidocaine 4 % topical patch 1 patch transdermal DAILY 30 days 03/19/24 (Lidocaine Pain Relief) #30 ea lithium carbonate 450 mg 450 mg PO BID 30 days #60 tabs 03/19/24 tablet,extended release loratadine 10 mg tablet 10 mg PO DAILY 30 days #30 tabs 03/19/24 metformin 1,000 mg tablet 1 tab PO BIDWM 30 days #60 tabs 03/19/24 nicotine (polacrilex) 2 mg buccal 2 mg buccal Q2H PRN Nicotine 03/19/24 lozenge Cravings 30 days #108 ea polyethylene glycol 3350 17 gram 17 g PO DAILY 30 days #30 packets 03/19/24 oral powder packet sennosides 8.6 mg-docusate sodium 2 tab PO BID 30 days #120 tabs 03/19/24 50 mg tablet (Senna Plus) tamsulosin 0.4 mg capsule 0.4 mg PO BEDTIME 30 days #30 caps 03/19/24 Allergies Allergy/AdvReac Type Severity Reaction Status Date / Time amoxicillin [AMOXICILLIN] Allergy Intermediate SKIN RASH Verified 04/04/24 00:13 egg [EGGS] Allergy Intermediate HIVES, Verified 04/04/24 00:13 VOMITING Penicillins [PENICILLINS] Allergy Intermediate SKIN RASH Verified 04/04/24 00:13 Sulfa (Sulfonamide Allergy Intermediate SKIN RASH Verified 04/04/24 00:13 Antibiotics) [SULFA (SULFONAMIDE ANTIBIOTICS)] trimethoprim [TRIMETHOPRIM] Allergy Intermediate SKIN RASH Verified 04/04/24 00:13 penicillin V Allergy Unknown Unknown Verified 04/04/24 00:13 haloperidol [From Haldol] Allergy Unknown Verified 04/04/24 00:13 Latex, Natural Rubber Allergy Unknown Verified 04/04/24 00:13 methylprednisolone Allergy Unknown Verified 04/04/24 00:13 [From Solu-Medrol] penicillin Allergy Unknown Unknown Uncoded 04/04/24 00:13 sultamicillin Allergy Unknown Unknown Uncoded 04/04/24 00:13 trimethoprim Allergy Unknown Unknown Uncoded 04/04/24 00:13 Review of Systems Review of Systems: Yes Unobtainable due to mental status PMFSH Past Medical History Medical History Encounter for staple removal Routine medical exam Hypothyroidism Diabetes mellitus type 2 in nonobese Hyperlipidemia Personal history of nicotine dependence Rash Loculated pleural effusion (~10/2020) Asbestos-induced pleural plaque Traumatic brain injury Schizophrenia HTN (hypertension) COPD (chronic obstructive pulmonary disease) Asthma Surgical History Status post small bowel resection Social History Social History Household Members: Other Household Members Other:: lives in nursing home Housing: Other Housing Other:: nursing home Do you presently have visiting nurse or other home services: No Alcohol intake: never Comment: Not wearing non-skid socks provided. Encouraged compliance with this. Patient Tobacco Use Status: Current everyday Tobacco user Tobacco use type: Cigarette Cigarette Packs Per Day: 1.5 Cigarettes Per Day: 3 Years Smoked: 40 e-Cigarette/Vaping Use: Never Used Second Hand Smoke Exposure: Yes Substance Use Type: Marijuana Advance Directives: No Advance Directives Information Provided: No Do you have a plan to hurt others: No Plan service: No Current occupational status: disabled Sexual orientation: Unable to collect Physical Exam Vital Signs: Vital Signs: Last Vital Signs Temp 98.6 F 04/04/24 01:55 Pulse 98 04/04/24 01:55 Resp 24 H 04/04/24 01:55 BP 134/57 L 04/04/24 01:55 Pulse Ox 94 04/04/24 01:55 O2 Del Method Nasal Cannula 04/04/24 01:55 O2 Flow Rate 4 04/04/24 01:55 Oxygen Flow Rate 4 04/04/24 00:09 BMI result Body Mass Index 24.0 Appearance: Lethargic and groggy No acute distress. Eyes: Pallor+ ENT: Pharynx normal. Oral Mucosa moist Neck: Normal inspection. Neck supple. CVS: Normal heart rate and rhythm. Pulses normal. Respiratory: No respiratory distress. Equal air entry bilateral, bilateral crackles at the bases Abdomen: Soft and nontender. Bowel sounds are present, no mass palpable, no CVA tenderness Skin: Skin warm and dry. Normal skin color. Normal skin turgor. Extremities: 1+ lower extremity edema. No calf tenderness Neuro: Oriented X 3. No motor deficit. No sensory deficit.No cerebellar signs , cranial nerves II-XII intact Medications Administered Discontinued Medications Generic Name Dose Route Start Last Admin Trade Name Freq PRN Reason Stop Dose Admin Ceftriaxone Sodium 1 gm/ 50 mls @ 100 mls/hr 04/04/24 01:00 04/04/24 01:42 Sodium Chloride IV 04/04/24 01:29 Infused ONCE ONE Infusion Sodium Chloride 1,000 mls @ 999 mls/hr 04/04/24 01:01 04/04/24 01:15 Ns IV 04/04/24 02:01 999 mls/hr .Q1H1M ONE Administration Medical Decision Making Medical Decision Making [facility] Narrative: Patient with bilateral infiltrate with slightly elevated lactic acid level with leukocytosis with hypoxia meeting the criteria for sepsis but not in septic shock. Received IV fluid IV antibiotics will admit to medical service Differential Diagnosis Differential Diagnoses: The differential diagnosis associated with the presentation includes Acute hypoxic failure/CHF/pneumonia/viral illness/metabolic encephalopathy Admission/Observation Consideration of admission/observation: Escalation of care including admission/observation considered Consult Healthcare Provider Management of the patient was discussed with: Hospitalist Lab Data [facility] Lab Attestation statement: I reviewed the patient's lab results. 04/04/24 00:18 04/04/24 00:18 Labs: Lab Results 04/04/24 04/04/24 04/04/24 Range/Units 00:18 00:19 00:33 WBC 15.5 H (4.8-10.8) X10*3/uL RBC 3.67 L (4.60-5.80) X10*6/uL Hgb 8.4 L (14.0-18.0) g/dl Hct 29.9 L (42.0-52.0) % MCV 81.5 (80.0-98.0) fL MCH 22.9 L (27.0-33.0) pg MCHC 28.1 L (31.0-36.0) g/dl RDW 15.9 (11.0-16.0) % Plt Count 385 D (160-400) X10*3/uL MPV 9.4 (9.4-12.4) fL Immature Gran % (Auto) 0.5 H (0.0-0.4) % Neut % (Auto) 83.1 H (45-73) % Lymph % (Auto) 10.1 L (20-40) % [place] % (Auto) 5.8 (2-11) % Eos % (Auto) 0.1 (0-4) % Baso % (Auto) 0.4 (0-2) % Lymph # (Auto) 1.6 (1.2-4.9) X10*3/uL [place] # (Auto) 0.9 (0.1-1.2) X10*3/uL Eos # (Auto) 0.0 (0.0-0.4) X10*3/uL Baso # (Auto) 0.1 (0.0-0.2) X10*3/uL Abs Immat Gran (auto) 0.07 H (0.00-0.03) X10*3/uL Absolute Neuts (auto) 12.9 H (2.0-8.3) x10*3/uL Absolute Nucleated RBC 0.000 (0.0-0.012) X10*3/uL Nucleated RBC % (auto) 0.0 (0.0-0.2) /100WBC Hold Purple Top SEE NOTE Hold Blue Top SEE NOTE Sodium 138 (135-145) mmol/L Potassium 4.3 (3.3-5.1) mmol/L Chloride 104 (96-108) mmol/L Carbon Dioxide 25 (22-29) mmol/L Anion Gap 13 (12-20) BUN 10 (9-16) mg/dL Creatinine 0.78 (0.5-1.4) mg/dL Estim Creat Clear Calc 116.6 Estimated GFR > 60 POC Glucose 130 H (60-115) mg/dL Random Glucose 139 H (60-115) mg/dL Lactic Acid 2.1 H* (0.5-2.0) mmol/L Calcium 9.1 D (8.4-10.2) mg/dL Troponin I High Sens 8.1 D (<3.5-35.0) ng/L B-Natriuretic Peptide 235 H (<100) pg/mL [place] 0.91 (0.60-1.20) mmol/L Ethyl Alcohol < 10 mg/dL Independent Interpretation I performed an independent interpretation of an: EKG, Plain X-Ray and CT Scan Interpretation: Normal sinus rhythm heart rate 96 beats per minute left axis deviation no acute STT wave changes no acute ischemia Radiology Impression Discussion of test interpretation with radiology: I have reviewed the radiologist's reading. Radiologist Impression: XR/XR chest 1V IMPRESSION: 1. Diffuse left-sided infiltrative change and suggestion of patchy right mid to lower lung field infiltrative change. Suspect pneumonia. 2. Left mid lung field apparent pleural thickening is again seen. Critical Care Time Critical Care Time Critical Care Time: Yes Total Critical Care Time: 45 Attestation: The patient was critically ill with a high probability of imminent or life threatening deterioration. I spent greater than 50???minutes of discontinuous time evaluating the patient,delivering critical care at the bedside, discussing and evaluating pertinent data with consultants. Critical care time does not include time spent performing separately billable procedures or teaching. Total time spent performing critical care was 45???minutes. Discharge Plan Discharge Clinical Impression: Acute alteration in mental status, Acute hypoxemic respiratory failure, Bilateral pneumonia, Fall Patient Disposition: Admitted As Inpatient Print Language: Azeri
[2024-04-04 01:45] LABS: Basophils Absolute Auto 0.1 X10*3/uL (0.0-0.2); Basophils Percent Auto 0.4 % (0-2); Eosinophils Percent Auto 0.1 % (0-4); Hematocrit 29.9 % (42.0-52.0); Hemoglobin 8.4 g/dl (14.0-18.0); Imm Gran Abs Auto 0.07 X10*3/uL (0.00-0.03); Imm Gran Pct Auto 0.5 % (0.0-0.4); Lymphocytes Absolute Auto 1.6 X10*3/uL (1.2-4.9); Lymphocytes Percent Auto 10.1 % (20-40); Mean Corpuscular HGB Conc 28.1 g/dl (31.0-36.0); Mean Corpuscular Hemoglobin 22.9 pg (27.0-33.0); Mean Corpuscular Volume 81.5 fL (80.0-98.0); Mean Platelet Volume 9.4 fL (9.4-12.4); Monocytes Absolute Auto 0.9 X10*3/uL (0.1-1.2); Monocytes Percent Auto 5.8 % (2-11); Neutrophils Absolute Auto 12.9 x10*3/uL (2.0-8.3); Neutrophils Percent Auto 83.1 % (45-73); Platelet Count 385 X10*3/uL (160-400); Red Blood Count 3.67 X10*6/uL (4.60-5.80); Red Cell Distribution Width 15.9 % (11.0-16.0); White Blood Count 15.5 X10*3/uL (4.8-10.8)
[2024-04-04 02:11] LABS: B Type Natriuretic Peptide 235 pg/mL (<100)
[2024-04-04 02:12] LABS: Venous Blood Gas Refer to POC result
[2024-04-04 02:21] LABS: VBG HCO3 25 mmol/L (22-26); VBG pCO2 24 mmHg; VBG pH 7.62 (7.32-7.43); VBG pO2 217 mmHg
--- NOTE | 2024-04-04 02:27 | MHC.EDTECH ---
This tech and RN cleaned Pt, changed into hospital attire and repositioned. Urine sample obtained.
[2024-04-04 02:35] LABS: Appearance Urine Clear; Color Urine Yellow; Glucose Urine UA Negative (Negative); Leukocyte Esterase Urine Negative (Negative); Nitrite Urine Negative (Negative); PH 6.5 (5.0-9.0); Specific Gravity - Urine 1.015 (1.005-1.025); Urine Blood Negative (Negative); Urine Ketones Negative (Negative); Urine Protein Negative (Neg-Trace)
[2024-04-04] MEDS: Albuterol Sulfate 5 MG, Albuterol/Iprat 2.5/0.5MG 3 ML 3 ML INHALE (02:35)
[2024-04-04 02:42] LABS: Reflex Lactate? Lactic Acid Added
[2024-04-04 02:43] LABS: Influenza A PCR NEGATIVE (Negative); Influenza B PCR NEGATIVE (Negative); Resp Syncy Virus RNA Qual PCR NEGATIVE (Negative); SARS COV2 PCR INHOUSE NEGATIVE (Negative)
[2024-04-04 02:47] LABS: Amphetamine Screen Urine Not Detected (Not Detect); Barbiturates, Urine Not Detected (Not Detect); Benzodiazepines Screen Urine Not Detected (Not Detect); Buprenorphine Scr Not Detected (Not Detect); Cannabinoid Screen Urine Not Detected (Not Detect); Cocaine Screen Urine Not Detected (Not Detect); Fentanyl, urine Not Detected (Not Detect); Methadone Screen, Urine Not Detected (Not Detect); Opiate Screen Urine Not Detected (Not Detect); Oxycodone Screen Urine Not Detected (Not Detect); Phencyclidine Screen Urine Not Detected (Not Detect)
--- NOTE | 2024-04-04 03:00 | PC.NURSE ---
Pt exhibits signs suggestive of aspiration while speaking. Wet cough noted. Pt suctioned with RT at bedside. Clear white phlegm noted in collection canister. Pt tolerated well.
[2024-04-04 03:23] LABS: ~Lactic Acid-LAB USE ONLY 1.3 mmol/L (0.5-2.0)
[2024-04-04] MEDS: Ampicillin Sodium/Sulbactam Na 3 GM in 0.9 % Sodium Chloride 100 ML IV ×4 (03:29→22:04)
[2024-04-04] MEDS: methylPREDNISolone Sod Succ 40 MG/ML VIAL IVPUSH ×2 (03:29→16:51)
[2024-04-04] MEDS: Enoxaparin Sodium 40 MG/0.4 ML SYRINGE SUBCUT (03:29)
[2024-04-04 03:58] LABS: Glucose, Whole Blood 118 mg/dL (60-115)
--- NOTE | 2024-04-04 05:21 | PM.IMHP ---
History of Present Illness Date of Service: 04/04/24 Chief Complaint: Altered mentation This is a 58-year-old male with pertinent history of schizophrenia, insulin-dependent diabetes mellitus, hypothyroidism, asthma/COPD overlap syndrome, mixed hyperlipidemia, BPH, traumatic brain injury was sent to the emergency department for evaluation of altered mentation. Patient was found confused at outside facility and sent to the ER. As per EMS, patient was satting 84% on room air. Unable to obtain history from the patient. History obtained from ER provider and chart review. Patient awakens to voice and is only oriented to self at the time of my evaluation. Unable to obtain review of systems. In the emergency department patient was found to be septic and requiring supplemental oxygen. Also noted to have bilateral lung infiltrates with leukocytosis. Review of Systems Review of Systems: Yes Unobtainable due to mental status PMFSH Medical History Encounter for staple removal Routine medical exam Hypothyroidism Diabetes mellitus type 2 in nonobese Hyperlipidemia Personal history of nicotine dependence Rash Loculated pleural effusion (~10/2020) Asbestos-induced pleural plaque Traumatic brain injury Schizophrenia HTN (hypertension) COPD (chronic obstructive pulmonary disease) Asthma Surgical History Status post small bowel resection Social History Household Members: Other Household Members Other:: lives in [facility]pc Housing: Other Housing Other:: [facility] Do you presently have visiting nurse or other home services: No Alcohol intake: never Comment: Not wearing non-skid socks provided. Encouraged compliance with this. Patient Tobacco Use Status: Current everyday Tobacco user Tobacco use type: Cigarette Cigarette Packs Per Day: 1.5 Cigarettes Per Day: 3 Years Smoked: 40 e-Cigarette/Vaping Use: Never Used Second Hand Smoke Exposure: Yes Substance Use Type: Marijuana Advance Directives: No Advance Directives Information Provided: No Do you have a plan to hurt others: No Plan service: No Current occupational status: disabled Sexual orientation: Unable to collect Meds Allergies Allergy/AdvReac Type Severity Reaction Status Date / Time amoxicillin [AMOXICILLIN] Allergy Intermediate SKIN RASH Verified 04/04/24 00:13 egg [EGGS] Allergy Intermediate HIVES, Verified 04/04/24 00:13 VOMITING Penicillins [PENICILLINS] Allergy Intermediate SKIN RASH Verified 04/04/24 00:13 Sulfa (Sulfonamide Allergy Intermediate SKIN RASH Verified 04/04/24 00:13 Antibiotics) [SULFA (SULFONAMIDE ANTIBIOTICS)] trimethoprim [TRIMETHOPRIM] Allergy Intermediate SKIN RASH Verified 04/04/24 00:13 penicillin V Allergy Unknown Unknown Verified 04/04/24 00:13 haloperidol [From Haldol] Allergy Unknown Verified 04/04/24 00:13 penicillin Allergy Unknown Unknown Uncoded 04/04/24 00:13 sultamicillin Allergy Unknown Unknown Uncoded 04/04/24 00:13 trimethoprim Allergy Unknown Unknown Uncoded 04/04/24 00:13 Active Medications: Current Medications Acetaminophen (Acetaminophen Supp 650 Mg Supp.Rect) 650 mg MI Q6H PRN PRN Reason: Pain, Mild (Pain Scale 1-3) Albuterol/Ipratropium (Albuterol/Iprat 2.5/0.5mg 3 Ml Ampul.Neb) 3 ml INHALE RQ4H WHILE AWAKE [facility] Albuterol/Ipratropium (Albuterol/Iprat 2.5/0.5mg 3 Ml Ampul.Neb) 3 ml INHALE Q4H PRN PRN Reason: Wheezing Enoxaparin Sodium (Enoxaparin Sodium 40 Mg/0.4 Ml Syringe) 40 mg SUBCUT DAILY [facility] Last Admin: 04/04/24 03:29 Dose: 40 mg Glucose (Glucose Gel 15 Gm Gel..Gram.) 15 gm PO Q15M PRN; Protocol PRN Reason: per Hypoglycemia Standing Ord. Dextrose (D10) 250 mls @ 750 mls/hr IV Q15M PRN; Protocol PRN Reason: per Hypoglycemia Standing Ord. Ampicillin Sodium/Sulbactam (Sodium 3 gm/ Sodium Chloride) 100 mls @ 200 mls/hr IV Q6H [facility] Last Infusion: 04/04/24 04:15 Dose: Infused Insulin Human Lispro (Insulin Lispro 100 Unit/Ml 3 Ml Vial) 0 unit SUBCUT Q6H [facility]; Protocol Melatonin (Melatonin 3 Mg Tablet) 6 mg PO BEDTIME PRN PRN Reason: Insomnia Methylprednisolone Sodium Succinate (Methylprednisolone Sod Succ 40 Mg/Ml Vial) 40 mg IVPUSH Q12H [facility] Last Admin: 04/04/24 03:29 Dose: 40 mg Ondansetron HCl (Ondansetron Hcl 4 Mg/2 Ml Vial) 4 mg IVPUSH Q8H PRN PRN Reason: Nausea and Vomiting Sodium Chloride (0.9 % Sodium Chloride Flush 3 Ml Syringe) 3 ml IVFLUSH QSHIFT [facility] Home Medications ?Medication ?Instructions ?Recorded ?Confirmed ?Last Taken ?Type insulin lispro 100 unit/mL See Protocol subcut TIDAC 03/02/24 03/02/24 03/02/24 17:07 History subcutaneous solution (Humalog U-100 Insulin) Physical Exam Vital Signs and Narrative: Vital Signs: Last Vital Signs Temp 99.4 F 04/04/24 02:27 Pulse 97 04/04/24 03:35 Resp 28 H 04/04/24 03:35 BP 111/66 04/04/24 03:35 Pulse Ox 98 04/04/24 03:35 O2 Del Method Nasal Cannula 04/04/24 03:35 O2 Flow Rate 4 04/04/24 03:35 Oxygen Flow Rate 4 04/04/24 00:09 BMI result Body Mass Index 24.0 Middle-aged male lying in bed in distress on supplemental oxygen Neck supple, no JVD Regular rate and rhythm, S1-S2 heard Bilateral crackles and wheezing present with tachypnea Abdomen soft nontender, no guarding, no rigidity Patient is lethargic and awakens to verbal stimulus, oriented to self and falls back asleep, disoriented to time and place Psych: Drowsy No pedal edema Results Labs 04/04/24 00:18 04/04/24 00:18 Labs: Laboratory Results - last 24 hr 04/04/24 04/04/24 04/04/24 00:18 00:19 00:33 MCV 81.5 MCH 22.9 L MCHC 28.1 L RDW 15.9 Plt Count 385 D MPV 9.4 Immature Gran % (Auto) 0.5 H Neut % (Auto) 83.1 H Lymph % (Auto) 10.1 L [place] % (Auto) 5.8 Eos % (Auto) 0.1 Baso % (Auto) 0.4 Lymph # (Auto) 1.6 [place] # (Auto) 0.9 Eos # (Auto) 0.0 Baso # (Auto) 0.1 Abs Immat Gran (auto) 0.07 H Absolute Neuts (auto) 12.9 H Absolute Nucleated RBC 0.000 Nucleated RBC % (auto) 0.0 Hold Purple Top SEE NOTE Hold Blue Top SEE NOTE VBG pH VBG pCO2 VBG pO2 VBG HCO3 VBG O2 Saturation VBG Base Excess Anion Gap 13 Estim Creat Clear Calc 116.6 Estimated GFR > 60 POC Glucose 130 H Random Glucose 139 H Lactic Acid 2.1 H* Lactic Acid F/U @ 2Hr Calcium 9.1 D Troponin I High Sens 8.1 D B-Natriuretic Peptide 235 H Urine Color Urine Appearance Urine pH Ur Specific [place] Urine Protein Urine Glucose (UA) Urine Ketones Urine Blood Urine Nitrite Ur Leukocyte Esterase Urine Opiates Screen Ur Buprenorphine Scrn Ur Oxycodone Screen Urine Methadone Screen Urine Fentanyl Screen Ur Barbiturates Screen Ur Phencyclidine Scrn Ur Amphetamines Screen U Benzodiazepines Scrn [place] 0.91 Urine Cocaine Screen U Marijuana (THC) Screen Ethyl Alcohol < 10 Influenza Type A (PCR) Influenza Type B (PCR) RSV RNA Qual (PCR) SARS-CoV-2 RNA (RT-PCR) 04/04/24 04/04/24 04/04/24 02:02 02:05 02:29 MCV MCH MCHC RDW Plt Count MPV Immature Gran % (Auto) Neut % (Auto) Lymph % (Auto) [place] % (Auto) Eos % (Auto) Baso % (Auto) Lymph # (Auto) [place] # (Auto) Eos # (Auto) Baso # (Auto) Abs Immat Gran (auto) Absolute Neuts (auto) Absolute Nucleated RBC Nucleated RBC % (auto) Hold Purple Top Hold Blue Top VBG pH 7.62 H* VBG pCO2 24 VBG pO2 217 VBG HCO3 25 VBG O2 Saturation Not Reportable VBG Base Excess 5.0 Anion Gap Estim Creat Clear Calc Estimated GFR POC Glucose Random Glucose Lactic Acid Lactic Acid F/U @ 2Hr Calcium Troponin I High Sens B-Natriuretic Peptide Urine Color Yellow Urine Appearance Clear Urine pH 6.5 Ur Specific [place] 1.015 Urine Protein Negative Urine Glucose (UA) Negative Urine Ketones Negative Urine Blood Negative Urine Nitrite Negative Ur Leukocyte Esterase Negative Urine Opiates Screen Not Detected Ur Buprenorphine Scrn Not Detected Ur Oxycodone Screen Not Detected Urine Methadone Screen Not Detected Urine Fentanyl Screen Not Detected Ur Barbiturates Screen Not Detected Ur Phencyclidine Scrn Not Detected Ur Amphetamines Screen Not Detected U Benzodiazepines Scrn Not Detected [place] Urine Cocaine Screen Not Detected U Marijuana (THC) Screen Not Detected Ethyl Alcohol Influenza Type A (PCR) NEGATIVE Influenza Type B (PCR) NEGATIVE RSV RNA Qual (PCR) NEGATIVE SARS-CoV-2 RNA (RT-PCR) NEGATIVE 04/04/24 04/04/24 03:09 03:55 MCV MCH MCHC RDW Plt Count MPV Immature Gran % (Auto) Neut % (Auto) Lymph % (Auto) [place] % (Auto) Eos % (Auto) Baso % (Auto) Lymph # (Auto) [place] # (Auto) Eos # (Auto) Baso # (Auto) Abs Immat Gran (auto) Absolute Neuts (auto) Absolute Nucleated RBC Nucleated RBC % (auto) Hold Purple Top Hold Blue Top VBG pH VBG pCO2 VBG pO2 VBG HCO3 VBG O2 Saturation VBG Base Excess Anion Gap Estim Creat Clear Calc Estimated GFR POC Glucose 118 H Random Glucose Lactic Acid Lactic Acid F/U @ 2Hr 1.3 Calcium Troponin I High Sens B-Natriuretic Peptide Urine Color Urine Appearance Urine pH Ur Specific [place] Urine Protein Urine Glucose (UA) Urine Ketones Urine Blood Urine Nitrite Ur Leukocyte Esterase Urine Opiates Screen Ur Buprenorphine Scrn Ur Oxycodone Screen Urine Methadone Screen Urine Fentanyl Screen Ur Barbiturates Screen Ur Phencyclidine Scrn Ur Amphetamines Screen U Benzodiazepines Scrn [place] Urine Cocaine Screen U Marijuana (THC) Screen Ethyl Alcohol Influenza Type A (PCR) Influenza Type B (PCR) RSV RNA Qual (PCR) SARS-CoV-2 RNA (RT-PCR) Imaging Radiologist's Impressions: Impressions Cervical Spine CT 04/04/24 01:30 IMPRESSION: Motion degraded examination. Within this limitation: 1. No acute intracranial abnormality. 2. No cervical spine fracture or traumatic malalignment. Chest X-Ray 04/04/24 01:30 IMPRESSION: 1. Diffuse left-sided infiltrative change and suggestion of patchy right mid to lower lung field infiltrative change. Suspect pneumonia. 2. Left mid lung field apparent pleural thickening is again seen. Head CT 04/04/24 01:30 IMPRESSION: Motion degraded examination. Within this limitation: 1. No acute intracranial abnormality. 2. No cervical spine fracture or traumatic malalignment. KUB X-Ray 04/04/24 03:20 IMPRESSION: 1. Nonobstructive bowel gas pattern. 2. Retained stool throughout the colon. Assessment and Plan (1) Bilateral pneumonia: Status: Acute (2) Acute hypoxemic respiratory failure: Status: Acute (3) Acute alteration in mental status: Status: Acute Plan This is a 58-year-old male with pertinent history of schizophrenia, insulin-dependent diabetes mellitus, hypothyroidism, asthma/COPD overlap syndrome, mixed hyperlipidemia, BPH was sent to the emergency department for evaluation of altered mentation. #. Acute hypoxemic respiratory failure and sepsis due to pneumonia: ?aspiration. Resuscitated with IV crystalloids. Initiating empiric IV antibiotics. Lactic acid and blood culture obtained. Will keep NPO and consult speech #. Acute exacerbation of asthma/COPD in the setting of above: Initiating IV steroids. Scheduled and p.r.n. DuoNebs. Continue home inhaler #. Acute metabolic encephalopathy in the setting of above #. Acute lactic acidosis due to sepsis #. Normocytic anemia, chronic: Hemoglobin above transfusion threshold #. Insulin-dependent diabetes mellitus: Initiating basal plus insulin regimen #. Hypothyroidism: On Synthroid #. Nonhealing ulcer great toe: No concern for infection. Consulting Wound Care #. Mixed hyperlipidemia: On statin Med rec pending DVT prophylaxis: Lovenox Full code Admit as inpatient and will require two night minimum hospital stay for supplemental oxygen, monitoring of mentation, IV antibiotics, IV steroids (as above), which is not possible in a lesser acute setting. Quality Stroke Does the patient have a stroke diagnosis?: No VTE Prior VTE?: No VTE Risk Level:: Medical - moderate - high VTE Device Contraindication: Treatment Not Indicated VTE Drug Contraindication: N/A - Med Ordered
[2024-04-04 06:56] LABS: Basophils Percent Auto 0.3 % (0-2); Hemoglobin 8.6 g/dl (14.0-18.0); Imm Gran Abs Auto 0.09 X10*3/uL (0.00-0.03); Imm Gran Pct Auto 0.6 % (0.0-0.4); Lymphocytes Absolute Auto 0.7 X10*3/uL (1.2-4.9); Lymphocytes Percent Auto 4.8 % (20-40); MANUAL DIFF FLAG SCAN; Mean Corpuscular HGB Conc 27.7 g/dl (31.0-36.0); Mean Corpuscular Hemoglobin 22.8 pg (27.0-33.0); Mean Corpuscular Volume 82.2 fL (80.0-98.0); Mean Platelet Volume 9.7 fL (9.4-12.4); Monocytes Absolute Auto 0.3 X10*3/uL (0.1-1.2); Monocytes Percent Auto 2.2 % (2-11); Neutrophils Absolute Auto 13.9 x10*3/uL (2.0-8.3); Neutrophils Percent Auto 92.1 % (45-73); Platelet Count 371 X10*3/uL (160-400); Red Blood Count 3.77 X10*6/uL (4.60-5.80); Red Cell Distribution Width 16.1 % (11.0-16.0); SCAN SMEAR FLAG 1; White Blood Count 15.1 X10*3/uL (4.8-10.8)
[2024-04-04 07:12] LABS: Anion Gap 10 (12-20); Blood Urea Nitrogen 8 mg/dL (9-16); Calcium 8.7 mg/dL (8.4-10.2); Carbon Dioxide 29 mmol/L (22-29); Chloride 105 mmol/L (96-108); Creatinine Clr Calc Pharmacy 129.9; Estimated Glomerular Filt Rate > 60; Glucose Random 171 mg/dL (60-115); Potassium 4.2 mmol/L (3.3-5.1); Sodium 140 mmol/L (135-145)
--- NOTE | 2024-04-04 07:35 | P.PNIM_ITS ---
Subjective Subjective Date of Service: 04/04/24 Interval History: Seen in follow up for acute hypoxemic respiratory failure and sepsis due to pneumonia Interval history: Very agitated, loudly stating that we are trying to hurt him. Does not know why he is in the hospital. Remains afebrile. Review of Systems Review of Systems: Yes Unobtainable due to mental status Physical Exam 2 Vital Signs: Vital Signs: Last Vital Signs Temp 99.4 F 04/04/24 06:32 Pulse 94 04/04/24 06:32 Resp 19 04/04/24 06:32 BP 123/60 04/04/24 06:32 Pulse Ox 96 04/04/24 06:32 O2 Del Method Nasal Cannula 04/04/24 06:32 O2 Flow Rate 6 04/04/24 06:32 Oxygen Flow Rate 4 04/04/24 00:09 BMI result Body Mass Index 24.0 Constitutional - Awake and Alert, No apparent distress Eyes - PERRLA, EOMI Cardiovascular - S1S2, RRR, No edema Respiratory - Normal lung expansion, Normal respiratory effort, No respiratory distress on 6L via oxymask, bilateral rhonchi L>R with scattered wheezes Gastrointestinal - NT / ND; +BS; No rebound or guarding Extremities - no calf tenderness bilaterally, no swelling Skin - Warm/Dry Neurological - Alert & oriented to self and place, very agitated Psychological - agitated, paranoid Objective Data Active Medications Acetaminophen (Acetaminophen Supp 650 Mg Supp.Rect) 650 mg [place] Q6H PRN PRN Reason: Pain, Mild (Pain Scale 1-3) Albuterol/Ipratropium (Albuterol/Iprat 2.5/0.5mg 3 Ml Ampul.Neb) 3 ml INHALE RQ4H WHILE AWAKE [facility] Albuterol/Ipratropium (Albuterol/Iprat 2.5/0.5mg 3 Ml Ampul.Neb) 3 ml INHALE Q4H PRN PRN Reason: Wheezing Enoxaparin Sodium (Enoxaparin Sodium 40 Mg/0.4 Ml Syringe) 40 mg SUBCUT DAILY [facility] Last Admin: 04/04/24 03:29 Dose: 40 mg Documented By: PARESH Glucose (Glucose Gel 15 Gm Gel..Gram.) 15 gm PO Q15M PRN; Protocol PRN Reason: per Hypoglycemia Standing Ord. Dextrose (D10) 250 mls @ 750 mls/hr IV Q15M PRN; Protocol PRN Reason: per Hypoglycemia Standing Ord. Ampicillin Sodium/Sulbactam (Sodium 3 gm/ Sodium Chloride) 100 mls @ 200 mls/hr IV Q6H [facility] Last Infusion: 04/04/24 04:15 Dose: Infused Documented By: PARESH Insulin Glargine (Insulin Glargine,Hum.Rec.Anlog 100 Unit/Ml 10 Ml Vial) 10 unit SUBCUT BEDTIME [facility] Insulin Human Lispro (Insulin Lispro 100 Unit/Ml 3 Ml Vial) 0 unit SUBCUT Q6H [facility]; Protocol Last Admin: 04/04/24 06:11 Dose: Not Given Documented By: PARESH Non-Admin Reason: NPO Melatonin (Melatonin 3 Mg Tablet) 6 mg PO BEDTIME PRN PRN Reason: Insomnia Methylprednisolone Sodium Succinate (Methylprednisolone Sod Succ 40 Mg/Ml Vial) 40 mg IVPUSH Q12H [facility] Last Admin: 04/04/24 03:29 Dose: 40 mg Documented By: PARESH Ondansetron HCl (Ondansetron Hcl 4 Mg/2 Ml Vial) 4 mg IVPUSH Q8H PRN PRN Reason: Nausea and Vomiting Sodium Chloride (0.9 % Sodium Chloride Flush 3 Ml Syringe) 3 ml IVFLUSH QSHIFT [facility] Labs 04/04/24 06:25 04/04/24 06:25 Labs: Laboratory Results - last 24 hr 04/04/24 04/04/24 04/04/24 00:18 00:19 00:33 MCV 81.5 MCH 22.9 L MCHC 28.1 L RDW 15.9 Plt Count 385 D MPV 9.4 Immature Gran % (Auto) 0.5 H Neut % (Auto) 83.1 H Lymph % (Auto) 10.1 L [place] % (Auto) 5.8 Eos % (Auto) 0.1 Baso % (Auto) 0.4 Lymph # (Auto) 1.6 [place] # (Auto) 0.9 Eos # (Auto) 0.0 Baso # (Auto) 0.1 Abs Immat Gran (auto) 0.07 H Absolute Neuts (auto) 12.9 H Absolute Nucleated RBC 0.000 Nucleated RBC % (auto) 0.0 Hold Purple Top SEE NOTE Hold Blue Top SEE NOTE VBG pH VBG pCO2 VBG pO2 VBG HCO3 VBG O2 Saturation VBG Base Excess Anion Gap 13 Estim Creat Clear Calc 116.6 Estimated GFR > 60 POC Glucose 130 H Random Glucose 139 H Lactic Acid 2.1 H* Lactic Acid F/U @ 2Hr Calcium 9.1 D Troponin I High Sens 8.1 D B-Natriuretic Peptide 235 H Urine Color Urine Appearance Urine pH Ur Specific [place] Urine Protein Urine Glucose (UA) Urine Ketones Urine Blood Urine Nitrite Ur Leukocyte Esterase Urine Opiates Screen Ur Buprenorphine Scrn Ur Oxycodone Screen Urine Methadone Screen Urine Fentanyl Screen Ur Barbiturates Screen Ur Phencyclidine Scrn Ur Amphetamines Screen U Benzodiazepines Scrn [place] 0.91 Urine Cocaine Screen U Marijuana (THC) Screen Ethyl Alcohol < 10 Influenza Type A (PCR) Influenza Type B (PCR) RSV RNA Qual (PCR) SARS-CoV-2 RNA (RT-PCR) 04/04/24 04/04/24 04/04/24 02:02 02:05 02:29 MCV MCH MCHC RDW Plt Count MPV Immature Gran % (Auto) Neut % (Auto) Lymph % (Auto) [place] % (Auto) Eos % (Auto) Baso % (Auto) Lymph # (Auto) [place] # (Auto) Eos # (Auto) Baso # (Auto) Abs Immat Gran (auto) Absolute Neuts (auto) Absolute Nucleated RBC Nucleated RBC % (auto) Hold Purple Top Hold Blue Top VBG pH 7.62 H* VBG pCO2 24 VBG pO2 217 VBG HCO3 25 VBG O2 Saturation Not Reportable VBG Base Excess 5.0 Anion Gap Estim Creat Clear Calc Estimated GFR POC Glucose Random Glucose Lactic Acid Lactic Acid F/U @ 2Hr Calcium Troponin I High Sens B-Natriuretic Peptide Urine Color Yellow Urine Appearance Clear Urine pH 6.5 Ur Specific [place] 1.015 Urine Protein Negative Urine Glucose (UA) Negative Urine Ketones Negative Urine Blood Negative Urine Nitrite Negative Ur Leukocyte Esterase Negative Urine Opiates Screen Not Detected Ur Buprenorphine Scrn Not Detected Ur Oxycodone Screen Not Detected Urine Methadone Screen Not Detected Urine Fentanyl Screen Not Detected Ur Barbiturates Screen Not Detected Ur Phencyclidine Scrn Not Detected Ur Amphetamines Screen Not Detected U Benzodiazepines Scrn Not Detected [place] Urine Cocaine Screen Not Detected U Marijuana (THC) Screen Not Detected Ethyl Alcohol Influenza Type A (PCR) NEGATIVE Influenza Type B (PCR) NEGATIVE RSV RNA Qual (PCR) NEGATIVE SARS-CoV-2 RNA (RT-PCR) NEGATIVE 04/04/24 04/04/24 04/04/24 03:09 03:55 06:25 MCV MCH MCHC RDW Plt Count MPV Immature Gran % (Auto) Neut % (Auto) Lymph % (Auto) [place] % (Auto) Eos % (Auto) Baso % (Auto) Lymph # (Auto) [place] # (Auto) Eos # (Auto) Baso # (Auto) Abs Immat Gran (auto) Absolute Neuts (auto) Absolute Nucleated RBC Nucleated RBC % (auto) Hold Purple Top Hold Blue Top VBG pH VBG pCO2 VBG pO2 VBG HCO3 VBG O2 Saturation VBG Base Excess Anion Gap 10 L Estim Creat Clear Calc 129.9 Estimated GFR > 60 POC Glucose 118 H Random Glucose 171 H Lactic Acid Lactic Acid F/U @ 2Hr 1.3 Calcium 8.7 Troponin I High Sens B-Natriuretic Peptide Urine Color Urine Appearance Urine pH Ur Specific [place] Urine Protein Urine Glucose (UA) Urine Ketones Urine Blood Urine Nitrite Ur Leukocyte Esterase Urine Opiates Screen Ur Buprenorphine Scrn Ur Oxycodone Screen Urine Methadone Screen Urine Fentanyl Screen Ur Barbiturates Screen Ur Phencyclidine Scrn Ur Amphetamines Screen U Benzodiazepines Scrn [place] Urine Cocaine Screen U Marijuana (THC) Screen Ethyl Alcohol Influenza Type A (PCR) Influenza Type B (PCR) RSV RNA Qual (PCR) SARS-CoV-2 RNA (RT-PCR) Assessment and Plan (1) Bilateral pneumonia: Status: Acute (2) Acute hypoxemic respiratory failure: Status: Acute (3) Acute alteration in mental status: Status: Acute (4) Fall: Status: Acute Plan 58-year-old male from [facility] with pertinent history of schizophrenia, TBI, insulin-dependent diabetes mellitus, hypothyroidism, asthma/COPD overlap syndrome, mixed hyperlipidemia, BPH admitted for acute hypoxemic respiratory failure and sepsis due to probable aspiration pneumonia #Acute hypoxemic respiratory failure due to pneumonia (probable aspiration) -?aspiration -continue unasyn (initiated 04/04) -passed bedside swallow evaluation. Trial ground/mech diet with 1:1 feeds, SENIOR PRODUCT DEVELOPMENT SCIENTIST eval pending -strep pneumo antigen, Legionella antigen, sputum culture pending -guaifenesin p.r.n. -follow cbc/cultures -continue supplemental O2 to maintain oximetry 90-92%, wean as tolerated #Acute exacerbation of asthma/COPD in the setting of above -continue IV methylprednisolone 40 mg b.i.d. -DuoNebs q.4h while awake, albuterol p.r.n. -continue maintenance inhalers IV steroids #Sepsis due to above- resolved #ACute lactic acidosis -resolved #Acute metabolic encephalopathy in the setting of above -monitor mentation, call placed to [facility] to determine baseline mentation # mechanical fall -PT eval #. Normocytic anemia, chronic -Hemoglobin above transfusion threshold #Insulin-dependent diabetes mellitus- without hyperglycemia -dose adjusted basal insulin, Humalog on sliding scale -POC glucose, diabetic diet -hold oral antihyperglycemics #Hypothyroidism -continue Synthroid #Nonhealing ulcer great toe -No concern for infection, wound care consult #Mixed hyperlipidemia -continue statin DVT prophylaxis-Lovenox Full code Patient requires inpatient stay at least 2 midnights for management of acute hypoxemic respiratory failure secondary to aspiration pneumonia with sepsis and COPD exacerbation requiring ongoing IV steroids, weaning of supplemental O2- still requiring OxyMask, and IV antibiotic Quality Stroke Does the patient have a stroke diagnosis?: No VTE Prior VTE?: No VTE Risk Level:: Medical - moderate - high VTE Device Contraindication: Treatment Not Indicated VTE Drug Contraindication: N/A - Med Ordered
[2024-04-04 07:40] LABS: SLIDE REVIEW VERIFIED
[2024-04-04] MEDS: Albuterol/Iprat 2.5/0.5MG 3 ML AMPUL.NEB INHALE ×4 (07:43→19:15)
[2024-04-04] MEDS: 0.9 % Sodium Chloride Flush 3 ML SYRINGE IVFLUSH ×2 (09:52→16:52)
[2024-04-04 10:26] LABS: Glucose, Whole Blood 192 mg/dL (60-115)
--- NOTE | 2024-04-04 10:43 | PHA.MEDREC ---
Pharmacy Consult ? Medication Reconciliation Pharmacy has completed the medication reconciliation. Called [facility] to get a list but they faxed us a list that is out of date and patients recent discharge papers from 03/19. Verified medications from claim history and discharge papers. Spoke with supervisor nutritional yeast Winsome who reported his last dose of clozaril was 275mg last night along with lithium 450mg last night as well.
--- NOTE | 2024-04-04 11:25 | PC.NURSE ---
pt did well with nursing bedside swallow eval
--- NOTE | 2024-04-04 11:32 | PC.NURSE ---
pt increasingly agitated, swearing at staff, posturing. demanding to leave and speaking about the devil holding him here., pt food driven. Yoan HOLLINGSWORTH made aware, order changed for diabetic diet.
[2024-04-04] MEDS: clonazePAM 0.5 MG TABLET PO (11:39)
[2024-04-04] MEDS: Nicotine Polacrilex Lozenge 2 MG LOZENGE BUCCAL ×3 (11:39→18:28)
[2024-04-04 12:57] LABS: Glucose, Whole Blood 225 mg/dL (60-115)
[2024-04-04] MEDS: Nicotine 21 MG PATCH.TD24 TRANSDERMA (13:30)
[2024-04-04] MEDS: Insulin Lispro 100 UNIT/ML 3 ML VIAL SUBCUT ×2 (13:31→18:28)
[2024-04-04] MEDS: Sennosides/Docusate Sodium TABLET 2 TAB PO ×2 (13:31→22:03)
[2024-04-04] MEDS: Lithium Carbonate ER 450 MG TABLET.ER PO ×2 (13:36→22:09)
[2024-04-04] MEDS: Gabapentin 600 MG TABLET PO ×2 (16:51→22:04)
[2024-04-04 17:56] LABS: Glucose, Whole Blood 223 mg/dL (60-115)
--- NOTE | 2024-04-04 18:30 | PC.NURSE ---
pt has been calm and cooperative since receiving a diet order this AM. pt remains food driven. pt delusional and grandiose in his thought process often with ideas of reference and thoughts related to the government. pt believes himself to be superman.
[2024-04-04] MEDS: Tamsulosin HCL 0.4 MG CAPSULE PO (22:03)
[2024-04-04] MEDS: Desmopressin Acetate 0.2 MG TABLET 0.1 MG PO (22:03)
[2024-04-04] MEDS: Atorvastatin Calcium 40 MG TABLET PO (22:04)
[2024-04-04] MEDS: Insulin Glargine,Hum.rec.anlog 100 UNIT/ML 10 ML VIAL 10 UNIT SUBCUT (22:04)
[2024-04-04] MEDS: cloZAPine 100 MG TABLET 200 MG PO (22:09)
[2024-04-04] MEDS: cloZAPine 25 MG TABLET 75 MG PO (22:09)
[2024-04-04] MEDS: fluPHENAZine HCl 1 MG TABLET PO (22:09)
--- NOTE | 2024-04-04 22:15 | PC.NURSE ---
med delay d/t missing meds from pharmacy.
[2024-04-05] VITALS (7 sets, daily range): BP systolic 105–139; BP diastolic 50–69; PULSE 67–87; RESP 18–20; TEMP 36.1–37.1; O2SAT 93–97
[2024-04-05] MEDS: 0.9 % Sodium Chloride Flush 3 ML SYRINGE IVFLUSH ×3 (00:24→16:17)
[2024-04-05 00:38] LABS: Glucose, Whole Blood 241 mg/dL (60-115)
[2024-04-05] MEDS: Insulin Lispro 100 UNIT/ML 3 ML VIAL SUBCUT ×5 (00:42→20:55)
[2024-04-05] MEDS: methylPREDNISolone Sod Succ 40 MG/ML VIAL IVPUSH ×3 (03:44→18:51)
[2024-04-05] MEDS: Ampicillin Sodium/Sulbactam Na 3 GM in 0.9 % Sodium Chloride 100 ML IV ×4 (03:44→22:04)
[2024-04-05 06:08] LABS: Glucose, Whole Blood 214 mg/dL (60-115)
[2024-04-05] MEDS: Levothyroxine Sodium 150 MCG TABLET PO (06:21)
[2024-04-05 06:51] LABS: MANUAL DIFF FLAG NO
[2024-04-05 07:05] LABS: Basophils Percent Auto 0.1 % (0-2); Hematocrit 27.3 % (42.0-52.0); Hemoglobin 7.5 g/dl (14.0-18.0); Imm Gran Abs Auto 0.05 X10*3/uL (0.00-0.03); Imm Gran Pct Auto 0.5 % (0.0-0.4); Lymphocytes Absolute Auto 0.8 X10*3/uL (1.2-4.9); Lymphocytes Percent Auto 8.1 % (20-40); Mean Corpuscular HGB Conc 27.5 g/dl (31.0-36.0); Mean Corpuscular Hemoglobin 22.6 pg (27.0-33.0); Mean Corpuscular Volume 82.2 fL (80.0-98.0); Monocytes Absolute Auto 0.2 X10*3/uL (0.1-1.2); Monocytes Percent Auto 2.4 % (2-11); Neutrophils Percent Auto 88.9 % (45-73); Platelet Count 325 X10*3/uL (160-400); Red Blood Count 3.32 X10*6/uL (4.60-5.80); White Blood Count 10.1 X10*3/uL (4.8-10.8)
[2024-04-05 07:10] LABS: Anion Gap 10 (12-20); Blood Urea Nitrogen 11 mg/dL (9-16); Calcium 8.9 mg/dL (8.4-10.2); Carbon Dioxide 31 mmol/L (22-29); Chloride 104 mmol/L (96-108); Creatinine Clr Calc Pharmacy 149.1; Estimated Glomerular Filt Rate > 60; Glucose Random 186 mg/dL (60-115); Sodium 140 mmol/L (135-145)
--- NOTE | 2024-04-05 08:03 | P.PNIM_ITS ---
Subjective Subjective Date of Service: 04/05/24 Interval History: Seen in follow up for acute hypoxemic respiratory failure and sepsis due to pneumonia Interval history: Much less agitated. Still confused- discussed with brother, this is his baseline. Still requiring 6L but now with NC, breathing unlabored. Afebrile. Review of Systems Review of Systems: Yes Unobtainable due to mental status Physical Exam 2 Vital Signs: Vital Signs: Last Vital Signs Temp 98.8 F 04/05/24 06:01 Pulse 87 04/05/24 06:01 Resp 18 04/05/24 06:01 BP 118/57 L 04/05/24 06:01 Pulse Ox 94 04/05/24 06:01 O2 Del Method Nasal Cannula 04/05/24 06:01 O2 Flow Rate 6 04/05/24 06:01 Oxygen Flow Rate 4 04/04/24 00:09 BMI result Body Mass Index 24.0 Constitutional - Awake and Alert, No apparent distress Eyes - PERRLA, EOMI Cardiovascular - S1S2, RRR, No edema Respiratory - Normal lung expansion, Normal respiratory effort, No respiratory distress on 6L O2 via NC, lung sounds diminished bilaterally Gastrointestinal - NT / ND; +BS; No rebound or guarding Extremities - no calf tenderness bilaterally, no swelling Skin - Warm/Dry Neurological - Alert & oriented x3 Psychological - Appropriate affect Objective Data Active Medications Acetaminophen (Acetaminophen Supp 650 Mg Supp.Rect) 650 mg [place] Q6H PRN PRN Reason: Pain, Mild (Pain Scale 1-3) Albuterol Sulfate (Albuterol Sulfate 90 Mcg 8 Gm Inhaler) 2 puff INHALE RQ4H PRN PRN Reason: Shortness Of Breath Albuterol/Ipratropium (Albuterol/Iprat 2.5/0.5mg 3 Ml Ampul.Neb) 3 ml INHALE RQ4H WHILE AWAKE [facility] Last Admin: 04/04/24 19:15 Dose: 3 ml Documented By: AKIN Albuterol/Ipratropium (Albuterol/Iprat 2.5/0.5mg 3 Ml Ampul.Neb) 3 ml INHALE Q4H PRN PRN Reason: Wheezing Atenolol (Atenolol 25 Mg Tablet) 25 mg PO DAILY [facility]; Protocol Atorvastatin Calcium (Atorvastatin Calcium 40 Mg Tablet) 40 mg PO BEDTIME [facility] Last Admin: 04/04/24 22:04 Dose: 40 mg Documented By: MONO Clonazepam (Clonazepam 0.5 Mg Tablet) 0.5 mg PO BID PRN PRN Reason: anxiety, moderate Last Admin: 04/04/24 11:39 Dose: 0.5 mg Documented By: ALEXA Clozapine (Clozapine 25 Mg Tablet) 75 mg PO BEDTIME [facility] Last Admin: 04/04/24 22:09 Dose: 75 mg Documented By: MONO Clozapine (Clozapine 100 Mg Tablet) 200 mg PO BEDTIME [facility] Last Admin: 04/04/24 22:09 Dose: 200 mg Documented By: MONO Desmopressin Acetate (Desmopressin Acetate 0.2 Mg Tablet) 0.1 mg PO BEDTIME [facility] Last Admin: 04/04/24 22:03 Dose: 0.1 mg Documented By: MONO Docusate Sodium (Docusate Sodium 100 Mg Capsule) 100 mg PO BID PRN PRN Reason: constipation Enoxaparin Sodium (Enoxaparin Sodium 40 Mg/0.4 Ml Syringe) 40 mg SUBCUT DAILY [facility] Last Admin: 04/04/24 03:29 Dose: 40 mg Documented By: PARESH Fluphenazine HCl (Fluphenazine Hcl 1 Mg Tablet) 1 mg PO BEDTIME [facility] Last Admin: 04/04/24 22:09 Dose: 1 mg Documented By: MONO Fluticasone Propionate (Fluticasone Propionate Nasal 16 Gm [place]) 1 spray NOSTRIL-B DAILY [facility] Fluticasone/Umeclidinium/Vilanterol (Fluticasone/Umeclidinium/Vilanterol 100/62.5/25 Blst.W.Dev) 1 puff INHALE RDAILY [facility] Last Admin: 04/05/24 07:14 Dose: Not Given Documented By: ARLETTE Non-Admin Reason: Patient Asleep Gabapentin (Gabapentin 600 Mg Tablet) 600 mg PO TID [facility] Last Admin: 04/04/24 22:04 Dose: 600 mg Documented By: MONO Glucose (Glucose Gel 15 Gm Gel..Gram.) 15 gm PO Q15M PRN; Protocol PRN Reason: per Hypoglycemia Standing Ord. Guaifenesin (Guaifenesin 200 Mg/10 Ml 10 Ml Liquid) 10 ml PO Q4H PRN PRN Reason: Cough Dextrose (D10) 250 mls @ 750 mls/hr IV Q15M PRN; Protocol PRN Reason: per Hypoglycemia Standing Ord. Ampicillin Sodium/Sulbactam (Sodium 3 gm/ Sodium Chloride) 100 mls @ 200 mls/hr IV Q6H [facility] Last Infusion: 04/05/24 04:36 Dose: Infused Documented By: MONO Insulin Glargine (Insulin Glargine,Hum.Rec.Anlog 100 Unit/Ml 10 Ml Vial) 10 unit SUBCUT BEDTIME [facility] Last Admin: 04/04/24 22:04 Dose: 10 unit Documented By: MONO Insulin Human Lispro (Insulin Lispro 100 Unit/Ml 3 Ml Vial) 0 unit SUBCUT Q6H [facility]; Protocol Last Admin: 04/05/24 06:20 Dose: 4 unit Documented By: MONO Levothyroxine Sodium (Levothyroxine Sodium 150 Mcg Tablet) 150 mcg PO DAILY@0600 [facility] Last Admin: 04/05/24 06:21 Dose: 150 mcg Documented By: MONO Lidocaine (Lidocaine 4 % Patch Adh..Patch) 1 patch TRANSDERMA DAILY [facility]; Protocol [place] Carbonate ([place] Carbonate Er 450 Mg Tablet.Er) 450 mg PO BID [facility] Last Admin: 04/04/24 22:09 Dose: 450 mg Documented By: MONO Loratadine (Loratadine 10 Mg Tablet) 10 mg PO DAILY [facility] Melatonin (Melatonin 3 Mg Tablet) 6 mg PO BEDTIME PRN PRN Reason: Insomnia Methylprednisolone Sodium Succinate (Methylprednisolone Sod Succ 40 Mg/Ml Vial) 40 mg IVPUSH Q12H [facility] Last Admin: 04/05/24 03:44 Dose: 40 mg Documented By: MONO Nicotine (Nicotine 21 Mg Patch.Td24) 21 mg TRANSDERMA DAILY [facility] Last Admin: 04/04/24 13:30 Dose: 21 mg Documented By: ALEXA Nicotine Polacrilex (Nicotine Polacrilex Lozenge 2 Mg Lozenge) 2 mg [place]AL Q2H PRN PRN Reason: Nicotine Cravings Last Admin: 04/04/24 18:28 Dose: 2 mg Documented By: ALEXA Ondansetron HCl (Ondansetron Hcl 4 Mg/2 Ml Vial) 4 mg IVPUSH Q8H PRN PRN Reason: Nausea and Vomiting Polyethylene Glycol (Polyethylene Glycol 3350 17 Gm Powd.Pack) 17 gm PO DAILY [facility] Senna/Docusate Sodium (Sennosides/Docusate Sodium Tablet) 2 tab PO BID [facility] Last Admin: 04/04/24 22:03 Dose: 2 tab Documented By: MONO Sodium Chloride (0.9 % Sodium Chloride Flush 3 Ml Syringe) 3 ml IVFLUSH QSHIFT [facility] Last Admin: 04/05/24 00:24 Dose: 3 ml Documented By: MONO Tamsulosin HCl (Tamsulosin Hcl 0.4 Mg Capsule) 0.4 mg PO BEDTIME [facility] Last Admin: 04/04/24 22:03 Dose: 0.4 mg Documented By: MONO Labs 04/05/24 05:57 04/05/24 05:57 Labs: Laboratory Results - last 24 hr 04/04/24 04/04/24 04/04/24 10:22 12:55 17:52 MCV MCH MCHC RDW Plt Count MPV Immature Gran % (Auto) Neut % (Auto) Lymph % (Auto) [place] % (Auto) Eos % (Auto) Baso % (Auto) Lymph # (Auto) [place] # (Auto) Eos # (Auto) Baso # (Auto) Abs Immat Gran (auto) Absolute Neuts (auto) Absolute Nucleated RBC Nucleated RBC % (auto) Anion Gap Estim Creat Clear Calc Estimated GFR POC Glucose 192 H 225 H 223 H Random Glucose Calcium 04/05/24 04/05/24 04/05/24 00:34 05:57 06:04 MCV 82.2 MCH 22.6 L MCHC 27.5 L RDW 16.0 Plt Count 325 MPV 10.0 Immature Gran % (Auto) 0.5 H Neut % (Auto) 88.9 H Lymph % (Auto) 8.1 L [place] % (Auto) 2.4 Eos % (Auto) 0.0 Baso % (Auto) 0.1 Lymph # (Auto) 0.8 L [place] # (Auto) 0.2 Eos # (Auto) 0.0 Baso # (Auto) 0.0 Abs Immat Gran (auto) 0.05 H Absolute Neuts (auto) 9.0 H Absolute Nucleated RBC 0.000 Nucleated RBC % (auto) 0.0 Anion Gap 10 L Estim Creat Clear Calc 149.1 Estimated GFR > 60 POC Glucose 241 H 214 H Random Glucose 186 H Calcium 8.9 Microbiology Microbiology Results: Microbiology 04/04/24 00:38 Blood Culture - Preliminary Blood - Venous No growth after 24 hours. 04/04/24 00:15 Blood Culture - Preliminary Blood - Venous No growth after 24 hours. Assessment and Plan (1) Bilateral pneumonia: Status: Acute (2) Acute hypoxemic respiratory failure: Status: Acute (3) Acute alteration in mental status: Status: Acute (4) Fall: Status: Acute Plan 58-year-[facility] with pertinent history of schizophrenia, TBI, insulin-dependent diabetes mellitus, hypothyroidism, asthma/COPD overlap syndrome, mixed hyperlipidemia, BPH admitted for acute hypoxemic respiratory failure and sepsis due to probable aspiration pneumonia #Acute hypoxemic respiratory failure due to pneumonia (probable aspiration) -continue unasyn (initiated 04/04) -passed bedside swallow evaluation. Trial ground/mech diet with 1:1 feeds, PIPE CLEANING MACHINE OPERATOR eval pending -add chest physiotherapy -strep pneumo antigen, Legionella antigen, sputum culture pending -guaifenesin p.r.n. -check rpp- reordered -follow cbc/cultures -continue supplemental O2 to maintain oximetry 90-92%, wean as tolerated #Acute exacerbation of asthma/COPD in the setting of above -continue IV methylprednisolone 40 mg- > increased to q8h 04/05 -DuoNebs q.4h while awake, albuterol p.r.n. -continue maintenance inhalers IV steroids #Sepsis due to above- resolved #ACute lactic acidosis -resolved #Acute metabolic encephalopathy in the setting of above- resolved -monitor mentation, per pt's brother, pt is confused and occasionally paranoid at [facility] # mechanical fall -PT eval #. Normocytic anemia, chronic -Hemoglobin above transfusion threshold -slight drop in H/H. Will check stool occult but no bleeding reported. #Insulin-dependent diabetes mellitus- without hyperglycemia -dose adjusted basal insulin, Humalog on sliding scale -POC glucose, diabetic diet -hold oral antihyperglycemics #Hypothyroidism -continue Synthroid #Nonhealing ulcer great toe -No concern for infection, wound care consult #Mixed hyperlipidemia -continue statin DVT prophylaxis-Lovenox Full code Patient requires ongiong inpatient stay acute hypoxemic respiratory failure, still requiring 6L O2 to maintain 92%, secondary to aspiration pneumonia with sepsis and COPD exacerbation requiring ongoing IV steroids, weaning of supplemental O2, and IV antibiotic Quality Stroke Does the patient have a stroke diagnosis?: No VTE Prior VTE?: No VTE Risk Level:: Medical - moderate - high VTE Device Contraindication: Treatment Not Indicated VTE Drug Contraindication: N/A - Med Ordered
[2024-04-05] MEDS: guaiFENesin 200 MG/10 ML 10 ML LIQUID PO (09:57)
[2024-04-05] MEDS: Enoxaparin Sodium 40 MG/0.4 ML SYRINGE SUBCUT (09:57)
[2024-04-05] MEDS: Sennosides/Docusate Sodium TABLET 2 TAB PO ×2 (09:58→22:00)
[2024-04-05] MEDS: atenoloL 25 MG TABLET PO (09:58)
[2024-04-05] MEDS: Loratadine 10 MG TABLET PO (09:59)
[2024-04-05] MEDS: Lidocaine 4 % Patch ADH..PATCH 1 PATCH TRANSDERMA (09:59)
[2024-04-05] MEDS: Gabapentin 600 MG TABLET PO ×3 (09:59→22:00)
[2024-04-05] MEDS: Fluticasone Propionate Nasal 16 GM SPRAY 1 SPRAY NOSTRIL-B (10:04)
[2024-04-05] MEDS: polyethylene glycoL 3350 17 GM POWD.PACK PO (10:05)
[2024-04-05] MEDS: Lithium Carbonate ER 450 MG TABLET.ER PO ×2 (10:05→21:59)
--- NOTE | 2024-04-05 10:49 | MHC.CM.PN ---
CM left a detailed message for HCP/[facility] @ [phone]; there is no address listed for [facility] so IMM will be mailed to [facility] C/O Chainstitch Zipper Setter/Winsome (FELICE attempted to call Winsome @ [phone], but she is not working today). Goal is for Patient to return to the Shelter; FELICE has initiated and will follow for dc planning. [facility] has been with [facility]; referral has been made back to them. PCP is Dr. Ginger Pate.
[2024-04-05 11:58] LABS: Glucose, Whole Blood 239 mg/dL (60-115)
[2024-04-05] MEDS: Nicotine Polacrilex Lozenge 2 MG LOZENGE BUCCAL ×5 (13:44→22:55)
--- NOTE | 2024-04-05 13:51 | MHC.SL.SWA ---
Speech Pathologist Impression: Risk of Aspiration Due to: Neurological Condition Dysphasia Diet Status: Liquid Consistency and Strategies for Safe Swallow: Liquid Intake Recommendation: Thin Liquid Intake Strategies: Small Sips Solid Food Consistency: Dietary Recommendations: Chopped/Advanced (NDD3) Additional Modifications to Solid Foods: Recommend UPGRADE to CHOPPED/ADVANCED SOLIDS (NDD3) and THIN LIQUIDS. MEDS WHOLE with PUREE or LIQUIDS. WASH RACK OPERATOR will continue to monitor for upgrade. Oral Medication Intake: Whole with Liquid Please contact the pharmacy regarding appropriate crushable or liquid drug formulations that are available whenever modified delivery is recommended. Compensatory Strategies and Precautions to be Taken for Safe Swallow: Sitting Upright (90 deg) Alternate Liquids/Solids Rate of Ingestion Change Oral Check Supervision While Eating and Drinking for Safe Swallow: Intermittent Supervision Foods to Avoid: Swallowing Recommended Treatments: Compens. Strategy Educat. Recommendation for Speech: Inpatient Speech Therapy Comment: Recommend UPGRADE to CHOPPED/ADVANCED SOLIDS (NDD3) and THIN LIQUIDS. MEDS WHOLE with PUREE or LIQUIDS. WASH RACK OPERATOR will continue to monitor for upgrade. Timeline to reassess: PRN Brake Machine Operator Clinican/Clinical Fellow: No Supervisory Statement: I have reviewed and agree with the student/clinical fellow's documentation: N/A Speech Language Pathologist: Christopher Jones M.A., [facility]-WASH RACK OPERATOR
[2024-04-05 14:24] LABS: Adenovirus PCR Not Detected (Not Detect.); Bordetella parapertussis PCR Not Detected (Not Detect.); Bordetella pertussis PCR Not Detected (Not Detect.); Chlamydia pneumoniae PCR Not Detected (Not Detect.); Coronavirus 229E PCR Not Detected (Not Detect.); Coronavirus HKU1 PCR Not Detected (Not Detect.); Coronavirus NL63 PCR Not Detected (Not Detect.); Coronavirus OC43 PCR Not Detected (Not Detect.); Human metapneumovirus PCR Not Detected (Not Detect.); Influenza A PCR Not Detected (Not Detect.); Influenza B PCR Not Detected (Not Detect.); Mycoplasma pneumoniae PCR Not Detected (Not Detect.); Parainfluenza 1 PCR Not Detected (Not Detect.); Parainfluenza 2 PCR Not Detected (Not Detect.); Parainfluenza 3 PCR Not Detected (Not Detect.); Parainfluenza 4 PCR Not Detected (Not Detect.); RSV PCR Not Detected (Not Detect.); Rhino/Enterovirus PCR Not Detected (Not Detect.)
[2024-04-05 14:40] LABS: SARS-CoV-2 PCR Not Detected (Not Detect.)
[2024-04-05] MEDS: Albuterol/Iprat 2.5/0.5MG 3 ML AMPUL.NEB INHALE ×2 (14:43→21:43)
[2024-04-05 16:46] LABS: Glucose, Whole Blood 305 mg/dL (60-115)
[2024-04-05 20:44] LABS: Glucose, Whole Blood 292 mg/dL (60-115)
[2024-04-05] MEDS: Insulin Glargine,Hum.rec.anlog 100 UNIT/ML 10 ML VIAL 10 UNIT SUBCUT (21:57)
[2024-04-05] MEDS: cloZAPine 100 MG TABLET 200 MG PO (21:59)
[2024-04-05] MEDS: fluPHENAZine HCl 1 MG TABLET PO (21:59)
[2024-04-05] MEDS: Desmopressin Acetate 0.2 MG TABLET 0.1 MG PO (21:59)
[2024-04-05] MEDS: cloZAPine 25 MG TABLET 75 MG PO (21:59)
[2024-04-05] MEDS: Tamsulosin HCL 0.4 MG CAPSULE PO (22:00)
[2024-04-05] MEDS: Atorvastatin Calcium 40 MG TABLET PO (22:00)
[2024-04-06] VITALS (10 sets, daily range): BP systolic 111–136; BP diastolic 44–78; PULSE 67–90; RESP 12–24; TEMP 36.5–37; O2SAT 91–97
[2024-04-06] MEDS: 0.9 % Sodium Chloride Flush 3 ML SYRINGE IVFLUSH ×4 (00:24→19:24)
[2024-04-06] MEDS: Insulin Glargine,Hum.rec.anlog 100 UNIT/ML 10 ML VIAL SUBCUT (00:24)
--- NOTE | 2024-04-06 02:54 | MHC.EDTECH ---
PT INCONTINENT OF LARGE AMOUNT OF URINE. PT CLEANED AND BEDDING CHANGED. PT GIVEN SOME PUDDING UPON REQUEST. RN AWARE
[2024-04-06] MEDS: methylPREDNISolone Sod Succ 40 MG/ML VIAL IVPUSH ×3 (03:14→23:07)
[2024-04-06] MEDS: Nicotine Polacrilex Lozenge 2 MG LOZENGE BUCCAL ×5 (03:17→19:23)
[2024-04-06] MEDS: Ampicillin Sodium/Sulbactam Na 3 GM in 0.9 % Sodium Chloride 100 ML IV ×4 (03:43→21:02)
[2024-04-06 05:47] LABS: MANUAL DIFF FLAG NO
[2024-04-06 05:50] LABS: Basophils Percent Auto 0.1 % (0-2); Hematocrit 26.8 % (42.0-52.0); Hemoglobin 7.4 g/dl (14.0-18.0); Imm Gran Abs Auto 0.09 X10*3/uL (0.00-0.03); Imm Gran Pct Auto 0.8 % (0.0-0.4); Lymphocytes Absolute Auto 0.8 X10*3/uL (1.2-4.9); Lymphocytes Percent Auto 6.9 % (20-40); Mean Corpuscular HGB Conc 27.6 g/dl (31.0-36.0); Mean Corpuscular Hemoglobin 22.3 pg (27.0-33.0); Mean Corpuscular Volume 80.7 fL (80.0-98.0); Mean Platelet Volume 9.6 fL (9.4-12.4); Monocytes Absolute Auto 0.3 X10*3/uL (0.1-1.2); Monocytes Percent Auto 2.5 % (2-11); Neutrophils Absolute Auto 10.2 x10*3/uL (2.0-8.3); Neutrophils Percent Auto 89.7 % (45-73); Platelet Count 291 X10*3/uL (160-400); Red Blood Count 3.32 X10*6/uL (4.60-5.80); White Blood Count 11.4 X10*3/uL (4.8-10.8)
[2024-04-06 06:05] LABS: Anion Gap 10 (12-20); Blood Urea Nitrogen 14 mg/dL (9-16); Carbon Dioxide 31 mmol/L (22-29); Chloride 99 mmol/L (96-108); Creatinine Clr Calc Pharmacy 133.8; Estimated Glomerular Filt Rate > 60; Glucose Random 293 mg/dL (60-115); Potassium 4.9 mmol/L (3.3-5.1); Sodium 135 mmol/L (135-145)
[2024-04-06 06:39] LABS: Glucose, Whole Blood 286 mg/dL (60-115)
[2024-04-06] MEDS: Levothyroxine Sodium 150 MCG TABLET PO (06:47)
[2024-04-06 08:10] LABS: Immature Retic Fraction 26.8 % (2.3-13.4); Retic HGB Equivalent 18.7 pg (30.0-35.0); Reticulocyte Percent 1.8 % (0.5-1.8); Reticulocytes Absolute 0.059 X10*6/uL (0.026-0.095)
[2024-04-06] MEDS: Albuterol/Iprat 2.5/0.5MG 3 ML AMPUL.NEB INHALE ×4 (08:14→20:16)
[2024-04-06] MEDS: Fluticasone/Umeclidinium/Vilanterol 100/62.5/25 BLST.W.DEV 1 PUFF INHALE (08:18)
[2024-04-06 08:20] LABS: Iron 8 mcg/dL (45-160); Lactate Dehydrogenase 192 U/L (118-273); Percent Iron Saturation 3 % (15-50); Total Iron Binding Capacity 280 mcg/dL (228-428); Unsaturated Iron Binding 272 ug/dL
[2024-04-06 08:38] LABS: Ferritin 16 ng/mL (20-250)
[2024-04-06 08:49] LABS: Procalcitonin 0.02 ng/mL
[2024-04-06] MEDS: Gabapentin 600 MG TABLET PO ×3 (09:25→21:01)
[2024-04-06] MEDS: Nicotine 21 MG PATCH.TD24 TRANSDERMA (09:25)
[2024-04-06] MEDS: Loratadine 10 MG TABLET PO (09:25)
[2024-04-06] MEDS: atenoloL 25 MG TABLET PO (09:25)
[2024-04-06] MEDS: Lithium Carbonate ER 450 MG TABLET.ER PO ×2 (09:25→21:01)
[2024-04-06] MEDS: Enoxaparin Sodium 40 MG/0.4 ML SYRINGE SUBCUT (09:48)
[2024-04-06] MEDS: Sennosides/Docusate Sodium TABLET 2 TAB PO ×2 (10:15→21:01)
[2024-04-06] MEDS: Lidocaine 4 % Patch ADH..PATCH 1 PATCH TRANSDERMA (10:15)
[2024-04-06] MEDS: Fluticasone Propionate Nasal 16 GM SPRAY 1 SPRAY NOSTRIL-B (10:15)
[2024-04-06] MEDS: Insulin Lispro 100 UNIT/ML 3 ML VIAL SUBCUT ×4 (10:16→21:01)
[2024-04-06] MEDS: polyethylene glycoL 3350 17 GM POWD.PACK PO (10:16)
--- NOTE | 2024-04-06 12:16 | P.PNIM_ITS ---
Subjective Subjective Date of Service: 04/06/24 Interval History: still short of breath + coughing but improving denies chest pain Review of Systems Review of Systems: Yes all other systems are reviewed and are negative Physical Exam 2 Vital Signs: Vital Signs: Last Vital Signs Temp 97.9 F 04/06/24 05:50 Pulse 72 04/06/24 11:57 Resp 18 04/06/24 11:57 BP 120/78 04/06/24 09:25 Pulse Ox 97 04/06/24 05:50 O2 Del Method Nasal Cannula 04/06/24 05:50 O2 Flow Rate 5 04/06/24 05:50 Oxygen Flow Rate 4 04/04/24 00:09 BMI result Body Mass Index 24.0 Gen: in no acute distress HEENT: sclera anicteric, moist mucus membranes Neck: supple Lungs: diminished breath sounds Heart: regular rate and rhythm, no murmurs Abd: soft, non-tender, non-distended Ext: no edema Skin: warm/well-perfused Neuro: alert and oriented x3, no focal findings Psych: appropriate affect Objective Data Active Medications Acetaminophen (Acetaminophen Supp 650 Mg Supp.Rect) 650 mg [place] Q6H PRN PRN Reason: Pain, Mild (Pain Scale 1-3) Albuterol Sulfate (Albuterol Sulfate 90 Mcg 8 Gm Inhaler) 2 puff INHALE RQ4H PRN PRN Reason: Shortness Of Breath Albuterol/Ipratropium (Albuterol/Iprat 2.5/0.5mg 3 Ml Ampul.Neb) 3 ml INHALE RQ4H WHILE AWAKE [facility] Last Admin: 04/06/24 11:56 Dose: 3 ml Documented By: RYANN Albuterol/Ipratropium (Albuterol/Iprat 2.5/0.5mg 3 Ml Ampul.Neb) 3 ml INHALE Q4H PRN PRN Reason: Wheezing Atenolol (Atenolol 25 Mg Tablet) 25 mg PO DAILY [facility]; Protocol Last Admin: 04/06/24 09:25 Dose: 25 mg Documented By: TRIXIE Atorvastatin Calcium (Atorvastatin Calcium 40 Mg Tablet) 40 mg PO BEDTIME [facility] Last Admin: 04/05/24 22:00 Dose: 40 mg Documented By: DARRIUS Clonazepam (Clonazepam 0.5 Mg Tablet) 0.5 mg PO BID PRN PRN Reason: anxiety, moderate Last Admin: 04/04/24 11:39 Dose: 0.5 mg Documented By: ALEXA Clozapine (Clozapine 25 Mg Tablet) 75 mg PO BEDTIME [facility] Last Admin: 04/05/24 21:59 Dose: 75 mg Documented By: DARRIUS Clozapine (Clozapine 100 Mg Tablet) 200 mg PO BEDTIME [facility] Last Admin: 04/05/24 21:59 Dose: 200 mg Documented By: DARRIUS Desmopressin Acetate (Desmopressin Acetate 0.2 Mg Tablet) 0.1 mg PO BEDTIME [facility] Last Admin: 04/05/24 21:59 Dose: 0.1 mg Documented By: DARRIUS Docusate Sodium (Docusate Sodium 100 Mg Capsule) 100 mg PO BID PRN PRN Reason: constipation Enoxaparin Sodium (Enoxaparin Sodium 40 Mg/0.4 Ml Syringe) 40 mg SUBCUT DAILY [facility] Last Admin: 04/06/24 09:48 Dose: 40 mg Documented By: TRIXIE Fluphenazine HCl (Fluphenazine Hcl 1 Mg Tablet) 1 mg PO BEDTIME [facility] Last Admin: 04/05/24 21:59 Dose: 1 mg Documented By: DARRIUS Fluticasone Propionate (Fluticasone Propionate Nasal 16 Gm [place]) 1 spray NOSTRIL-B DAILY [facility] Last Admin: 04/06/24 10:15 Dose: 1 spray Documented By: TRIXIE Fluticasone/Umeclidinium/Vilanterol (Fluticasone/Umeclidinium/Vilanterol 100/62.5/25 Blst.W.Dev) 1 puff INHALE RDAILY [facility] Last Admin: 04/06/24 08:18 Dose: 1 puff Documented By: RYANN Gabapentin (Gabapentin 600 Mg Tablet) 600 mg PO TID [facility] Last Admin: 04/06/24 09:25 Dose: 600 mg Documented By: TRIXIE Glucose (Glucose Gel 15 Gm Gel..Gram.) 15 gm PO Q15M PRN; Protocol PRN Reason: per Hypoglycemia Standing Ord. Guaifenesin (Guaifenesin 200 Mg/10 Ml 10 Ml Liquid) 10 ml PO Q4H PRN PRN Reason: Cough Last Admin: 04/05/24 09:57 Dose: 10 ml Documented By: KELLEY Dextrose (D10) 250 mls @ 750 mls/hr IV Q15M PRN; Protocol PRN Reason: per Hypoglycemia Standing Ord. Ampicillin Sodium/Sulbactam (Sodium 3 gm/ Sodium Chloride) 100 mls @ 200 mls/hr IV Q6H [facility] Last Infusion: 04/06/24 11:44 Dose: Infused Documented By: TRIXIE Insulin Glargine (Insulin Glargine,Hum.Rec.Anlog 100 Unit/Ml 10 Ml Vial) 18 unit SUBCUT BEDTIME [facility] Insulin Human Lispro (Insulin Lispro 100 Unit/Ml 3 Ml Vial) 0 unit SUBCUT QIDACHS [facility]; Protocol Last Admin: 04/06/24 11:54 Dose: 10 unit Documented By: TRIXIE Levothyroxine Sodium (Levothyroxine Sodium 150 Mcg Tablet) 150 mcg PO DAILY@0600 [facility] Last Admin: 04/06/24 06:47 Dose: 150 mcg Documented By: TITO Lidocaine (Lidocaine 4 % Patch Adh..Patch) 1 patch TRANSDERMA DAILY [facility]; Protocol Last Admin: 04/06/24 10:15 Dose: 1 patch Documented By: TRIXIE [place] Carbonate ([place] Carbonate Er 450 Mg Tablet.Er) 450 mg PO BID [facility] Last Admin: 04/06/24 09:25 Dose: 450 mg Documented By: TRIXIE Loratadine (Loratadine 10 Mg Tablet) 10 mg PO DAILY [facility] Last Admin: 04/06/24 09:25 Dose: 10 mg Documented By: TRXIIE Melatonin (Melatonin 3 Mg Tablet) 6 mg PO BEDTIME PRN PRN Reason: Insomnia Methylprednisolone Sodium Succinate (Methylprednisolone Sod Succ 40 Mg/Ml Vial) 40 mg IVPUSH Q8H [facility] Last Admin: 04/06/24 11:54 Dose: 40 mg Documented By: TRIXIE Nicotine (Nicotine 21 Mg Patch.Td24) 21 mg TRANSDERMA DAILY [facility] Last Admin: 04/06/24 09:25 Dose: 21 mg Documented By: TRIXIE Nicotine Polacrilex (Nicotine Polacrilex Lozenge 2 Mg Lozenge) 2 mg BUCCAL Q2H PRN PRN Reason: Nicotine Cravings Last Admin: 04/06/24 09:33 Dose: 2 mg Documented By: TRIXIE Ondansetron HCl (Ondansetron Hcl 4 Mg/2 Ml Vial) 4 mg IVPUSH Q8H PRN PRN Reason: Nausea and Vomiting Polyethylene Glycol (Polyethylene Glycol 3350 17 Gm Powd.Pack) 17 gm PO DAILY [facility] Last Admin: 04/06/24 10:16 Dose: 17 gm Documented By: TRIXIE Senna/Docusate Sodium (Sennosides/Docusate Sodium Tablet) 2 tab PO BID [facility] Last Admin: 04/06/24 10:15 Dose: 2 tab Documented By: TRIXIE Sodium Chloride (0.9 % Sodium Chloride Flush 3 Ml Syringe) 3 ml IVFLUSH QSHIFT [facility] Last Admin: 04/06/24 09:48 Dose: 3 ml Documented By: TRIXIE Tamsulosin HCl (Tamsulosin Hcl 0.4 Mg Capsule) 0.4 mg PO BEDTIME [facility] Last Admin: 04/05/24 22:00 Dose: 0.4 mg Documented By: JEANNETTEEC Labs 04/06/24 05:40 04/06/24 05:40 Labs: Laboratory Results - last 24 hr 04/05/24 04/05/24 04/05/24 12:26 16:37 20:32 MCV MCH MCHC RDW Plt Count MPV Immature Gran % (Auto) Neut % (Auto) Lymph % (Auto) [place] % (Auto) Eos % (Auto) Baso % (Auto) Lymph # (Auto) [place] # (Auto) Eos # (Auto) Baso # (Auto) Abs Immat Gran (auto) Absolute Neuts (auto) Absolute Nucleated RBC Nucleated RBC % (auto) Absolute Retic Percent Retic Immature Retic Fraction Retic Hgb Equivalent Anion Gap Estim Creat Clear Calc Estimated GFR POC Glucose 305 H 292 H Random Glucose Calcium Iron TIBC % Saturation Unsat Iron Binding Ferritin Lactate Dehydrogenase Procalcitonin Respiratory Panel [place] See Note Adenovirus (Rapid PCR) Not Detected B.pert (TEM-PCR) Not Detected B.parapertussis DNA PCR Not Detected C. pneumoniae DNA (PCR) Not Detected Coronavirus OC43 (PCR) Not Detected Coronavirus HKU1 (PCR) Not Detected Coronavirus 229E (PCR) Not Detected Coronavirus NL63 (PCR) Not Detected Human Metapneumovir PCR Not Detected Influenza A (RT-PCR) Not Detected Influenza B (RT-PCR) Not Detected M. pneumoniae (PCR) Not Detected Parainfluenza 1 (PCR) Not Detected Parainfluenza 2 (PCR) Not Detected Parainfluenza 3 (PCR) Not Detected Parainfluenza 4 (PCR) Not Detected RSV (PCR) Not Detected Entero/Rhino (PCR) Not Detected SARS-CoV-2 RNA (RT-PCR) Not Detected 04/06/24 04/06/24 05:40 06:31 MCV 80.7 MCH 22.3 L MCHC 27.6 L RDW 16.0 Plt Count 291 MPV 9.6 Immature Gran % (Auto) 0.8 H Neut % (Auto) 89.7 H Lymph % (Auto) 6.9 L [place] % (Auto) 2.5 Eos % (Auto) 0.0 Baso % (Auto) 0.1 Lymph # (Auto) 0.8 L [place] # (Auto) 0.3 Eos # (Auto) 0.0 Baso # (Auto) 0.0 Abs Immat Gran (auto) 0.09 H Absolute Neuts (auto) 10.2 H Absolute Nucleated RBC 0.000 Nucleated RBC % (auto) 0.0 Absolute Retic 0.059 Percent Retic 1.8 Immature Retic Fraction 26.8 H Retic Hgb Equivalent 18.7 L Anion Gap 10 L Estim Creat Clear Calc 133.8 Estimated GFR > 60 POC Glucose 286 H Random Glucose 293 H Calcium 9.0 Iron 8 L TIBC 280 % Saturation 3 L Unsat Iron Binding 272 Ferritin 16 L Lactate Dehydrogenase 192 Procalcitonin 0.02 Respiratory Panel [place] Adenovirus (Rapid PCR) B.pert (TEM-PCR) B.parapertussis DNA PCR C. pneumoniae DNA (PCR) Coronavirus OC43 (PCR) Coronavirus HKU1 (PCR) Coronavirus 229E (PCR) Coronavirus NL63 (PCR) Human Metapneumovir PCR Influenza A (RT-PCR) Influenza B (RT-PCR) M. pneumoniae (PCR) Parainfluenza 1 (PCR) Parainfluenza 2 (PCR) Parainfluenza 3 (PCR) Parainfluenza 4 (PCR) RSV (PCR) Entero/Rhino (PCR) SARS-CoV-2 RNA (RT-PCR) Microbiology Microbiology Results: Microbiology 04/04/24 00:38 Blood Culture - Preliminary Blood - Venous No growth after 48 hours. 04/04/24 00:15 Blood Culture - Preliminary Blood - Venous No growth after 48 hours. 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, thin liquids - urinary antigens for pneumococcus + Legionella pending; BCx negative at 48h; PCT low; RVP negative - wean O2 as tolerated acute asthma/COPD exac - wean IV methylprednisolone, continue standing/prn nebs - continue Trelegy acute encephalopathy due to infection - resolved chronic normocytic anemia - iron deficient; will start Fe repletion; also check FOBT, B12 + FA; currently above transfusion threshold DM2 - basal-bolus insulin hypothyroidism - continue LT4 HLD - statin HTN - atenolol schizophrenia - clozapine, fluphenazine, lithium, clonazepam BPH - tamsulosin tobacco abuse - NRT nonhealing ulcer great toe - wound care consult pending VTE ppx - LMWH dispo - PT eval pending In my clinical judgment, the patient requires continued inpatient hospitalization for the following reasons: IV ABX, hypoxia Total time managing care of this patient today: 45 minutes. Quality Stroke Does the patient have a stroke diagnosis?: No VTE Prior VTE?: No VTE Risk Level:: Medical - moderate - high VTE Device Contraindication: Treatment Not Indicated VTE Drug Contraindication: N/A - Med Ordered
--- NOTE | 2024-04-06 13:47 | MHC.SLORD ---
Speech Language Pathology Order Status: CITY EDITOR attempted to see pt for f/u visit w/ CITY EDITOR. Pt not in room. Will attempt later in day if time allows.
[2024-04-06] MEDS: Ferrous Sulfate 324 MG TABLET.DR PO (13:49)
[2024-04-06 16:38] LABS: Glucose, Whole Blood 293 mg/dL (60-115)
[2024-04-06 16:50] LABS: Glucose, Whole Blood 327 mg/dL (60-115)
[2024-04-06] MEDS: clonazePAM 0.5 MG TABLET PO (18:09)
[2024-04-06 20:03] LABS: Glucose, Whole Blood 355 mg/dL (60-115)
[2024-04-06] MEDS: Desmopressin Acetate 0.2 MG TABLET 0.1 MG PO (20:59)
[2024-04-06] MEDS: cloZAPine 100 MG TABLET 200 MG PO (21:00)
[2024-04-06] MEDS: Atorvastatin Calcium 40 MG TABLET PO (21:00)
[2024-04-06] MEDS: cloZAPine 25 MG TABLET 75 MG PO (21:00)
[2024-04-06] MEDS: Tamsulosin HCL 0.4 MG CAPSULE PO (21:01)
[2024-04-06] MEDS: Insulin Glargine,Hum.rec.anlog 100 UNIT/ML 10 ML VIAL 18 UNIT SUBCUT (21:01)
[2024-04-06] MEDS: fluPHENAZine HCl 1 MG TABLET PO (21:01)
[2024-04-07] VITALS (12 sets, daily range): BP systolic 117–134; BP diastolic 56–62; PULSE 66–79; RESP 16–22; TEMP 36.2–36.6; O2SAT 92–97
[2024-04-07] MEDS: Ampicillin Sodium/Sulbactam Na 3 GM in 0.9 % Sodium Chloride 100 ML IV ×4 (03:08→20:34)
[2024-04-07] MEDS: Levothyroxine Sodium 150 MCG TABLET PO (05:28)
[2024-04-07 07:04] LABS: Glucose, Whole Blood 251 mg/dL (60-115)
[2024-04-07 07:18] LABS: Hematocrit 29.7 % (42.0-52.0); Hemoglobin 8.3 g/dl (14.0-18.0); Mean Corpuscular HGB Conc 27.9 g/dl (31.0-36.0); Mean Corpuscular Hemoglobin 22.6 pg (27.0-33.0); Mean Corpuscular Volume 80.7 fL (80.0-98.0); Mean Platelet Volume 9.8 fL (9.4-12.4); Platelet Count 351 X10*3/uL (160-400); Red Blood Count 3.68 X10*6/uL (4.60-5.80); White Blood Count 12.6 X10*3/uL (4.8-10.8)
[2024-04-07 07:21] LABS: Anion Gap 11 (12-20); Blood Urea Nitrogen 15 mg/dL (9-16); Calcium 9.1 mg/dL (8.4-10.2); Carbon Dioxide 32 mmol/L (22-29); Chloride 101 mmol/L (96-108); Creatinine Clr Calc Pharmacy 129.9; Estimated Glomerular Filt Rate > 60; Glucose Random 258 mg/dL (60-115); Potassium 4.9 mmol/L (3.3-5.1); Sodium 139 mmol/L (135-145)
[2024-04-07 07:52] LABS: Folate 4.6 ng/mL (> or = 4.0); Vitamin B12 337 pg/mL (200-900)
[2024-04-07] MEDS: Albuterol/Iprat 2.5/0.5MG 3 ML AMPUL.NEB INHALE ×4 (08:06→20:23)
[2024-04-07] MEDS: Lithium Carbonate ER 450 MG TABLET.ER PO ×2 (08:25→20:33)
[2024-04-07] MEDS: Insulin Lispro 100 UNIT/ML 3 ML VIAL SUBCUT ×4 (08:25→20:33)
[2024-04-07] MEDS: Sennosides/Docusate Sodium TABLET 2 TAB PO ×2 (08:25→20:33)
[2024-04-07] MEDS: Ferrous Sulfate 324 MG TABLET.DR PO (08:25)
[2024-04-07] MEDS: Loratadine 10 MG TABLET PO (08:25)
[2024-04-07] MEDS: Gabapentin 600 MG TABLET PO ×3 (08:25→20:32)
[2024-04-07] MEDS: Nicotine Polacrilex Lozenge 2 MG LOZENGE BUCCAL ×6 (08:25→22:59)
[2024-04-07] MEDS: Nicotine 21 MG PATCH.TD24 TRANSDERMA (08:26)
[2024-04-07] MEDS: Lidocaine 4 % Patch ADH..PATCH 1 PATCH TRANSDERMA (08:26)
[2024-04-07] MEDS: polyethylene glycoL 3350 17 GM POWD.PACK PO (08:26)
[2024-04-07] MEDS: atenoloL 25 MG TABLET PO (08:26)
[2024-04-07] MEDS: 0.9 % Sodium Chloride Flush 3 ML SYRINGE IVFLUSH ×2 (08:27→23:53)
[2024-04-07] MEDS: Enoxaparin Sodium 40 MG/0.4 ML SYRINGE SUBCUT (08:27)
[2024-04-07] MEDS: Fluticasone/Umeclidinium/Vilanterol 100/62.5/25 BLST.W.DEV 1 PUFF INHALE (08:50)
[2024-04-07] MEDS: clonazePAM 0.5 MG TABLET PO ×2 (08:54→20:33)
--- NOTE | 2024-04-07 09:33 | HO.WOUND ---
Attempted wound consultation however patient was working with different provider will attempt future time and or date.
--- NOTE | 2024-04-07 09:37 | P.PNIM_ITS ---
Subjective Subjective Date of Service: 04/07/24 Interval History: dyspnea/cough still on 5L O2 via Oxymask or NC no fever Review of Systems Review of Systems: Yes all other systems are reviewed and are negative Physical Exam 2 Vital Signs: Vital Signs: Last Vital Signs Temp 97.8 F 04/07/24 06:49 Pulse 71 04/07/24 08:26 Resp 20 04/07/24 08:11 BP 117/56 L 04/07/24 08:26 Pulse Ox 93 04/07/24 08:43 O2 Del Method Oxymask 04/07/24 08:43 O2 Flow Rate 6 04/07/24 08:43 Oxygen Flow Rate 4 04/04/24 00:09 BMI result Body Mass Index 24.0 Gen: in no acute distress HEENT: sclera anicteric, moist mucus membranes Neck: supple Lungs: diminished breath sounds Heart: regular rate and rhythm, no murmurs Abd: soft, non-tender, non-distended Ext: no edema Skin: warm/well-perfused, R great toe pad with dry ulcer Neuro: alert and oriented x3, no focal findings Psych: appropriate affect Objective Data Active Medications Acetaminophen (Acetaminophen Supp 650 Mg Supp.Rect) 650 mg [place] Q6H PRN PRN Reason: Pain, Mild (Pain Scale 1-3) Albuterol Sulfate (Albuterol Sulfate 90 Mcg 8 Gm Inhaler) 2 puff INHALE RQ4H PRN PRN Reason: Shortness Of Breath Albuterol/Ipratropium (Albuterol/Iprat 2.5/0.5mg 3 Ml Ampul.Neb) 3 ml INHALE RQ4H WHILE AWAKE [facility] Last Admin: 04/07/24 08:06 Dose: 3 ml Documented By: CAMILA Albuterol/Ipratropium (Albuterol/Iprat 2.5/0.5mg 3 Ml Ampul.Neb) 3 ml INHALE Q4H PRN PRN Reason: Wheezing Atenolol (Atenolol 25 Mg Tablet) 25 mg PO DAILY [facility]; Protocol Last Admin: 04/07/24 08:26 Dose: 25 mg Documented By: LINDA Atorvastatin Calcium (Atorvastatin Calcium 40 Mg Tablet) 40 mg PO BEDTIME [facility] Last Admin: 04/06/24 21:00 Dose: 40 mg Documented By: AGUSTÍN Clonazepam (Clonazepam 0.5 Mg Tablet) 0.5 mg PO BID PRN PRN Reason: anxiety, moderate Last Admin: 04/07/24 08:54 Dose: 0.5 mg Documented By: MONICAEMA Clozapine (Clozapine 25 Mg Tablet) 75 mg PO BEDTIME [facility] Last Admin: 04/06/24 21:00 Dose: 75 mg Documented By: AGUSTÍN Clozapine (Clozapine 100 Mg Tablet) 200 mg PO BEDTIME [facility] Last Admin: 04/06/24 21:00 Dose: 200 mg Documented By: AGUSTÍN Desmopressin Acetate (Desmopressin Acetate 0.2 Mg Tablet) 0.1 mg PO BEDTIME [facility] Last Admin: 04/06/24 20:59 Dose: 0.1 mg Documented By: AGUSTÍN Docusate Sodium (Docusate Sodium 100 Mg Capsule) 100 mg PO BID PRN PRN Reason: constipation Enoxaparin Sodium (Enoxaparin Sodium 40 Mg/0.4 Ml Syringe) 40 mg SUBCUT DAILY [facility] Last Admin: 04/07/24 08:27 Dose: 40 mg Documented By: LINDA Ferrous Sulfate (Ferrous Sulfate 324 Mg Tablet.Dr) 324 mg PO DAILY [facility] Last Admin: 04/07/24 08:25 Dose: 324 mg Documented By: LINDA Fluphenazine HCl (Fluphenazine Hcl 1 Mg Tablet) 1 mg PO BEDTIME [facility] Last Admin: 04/06/24 21:01 Dose: 1 mg Documented By: AGUSTÍN Fluticasone Propionate (Fluticasone Propionate Nasal 16 Gm [place]) 1 spray NOSTRIL-B DAILY [facility] Last Admin: 04/07/24 08:34 Dose: Not Given Documented By: LINDA Non-Admin Reason: Patient Refused Fluticasone/Umeclidinium/Vilanterol (Fluticasone/Umeclidinium/Vilanterol 100/62.5/25 Blst.W.Dev) 1 puff INHALE RDAILY [facility] Last Admin: 04/07/24 08:50 Dose: 1 puff Documented By: CAMILA Gabapentin (Gabapentin 600 Mg Tablet) 600 mg PO TID [facility] Last Admin: 04/07/24 08:25 Dose: 600 mg Documented By: LINDA Glucose (Glucose Gel 15 Gm Gel..Gram.) 15 gm PO Q15M PRN; Protocol PRN Reason: per Hypoglycemia Standing Ord. Guaifenesin (Guaifenesin 200 Mg/10 Ml 10 Ml Liquid) 10 ml PO Q4H PRN PRN Reason: Cough Last Admin: 04/05/24 09:57 Dose: 10 ml Documented By: KELLEY Dextrose (D10) 250 mls @ 750 mls/hr IV Q15M PRN; Protocol PRN Reason: per Hypoglycemia Standing Ord. Ampicillin Sodium/Sulbactam (Sodium 3 gm/ Sodium Chloride) 100 mls @ 200 mls/hr IV Q6H [facility] Last Admin: 04/07/24 09:33 Dose: 200 mls/hr Documented By: LINDA Insulin Glargine (Insulin Glargine,Hum.Rec.Anlog 100 Unit/Ml 10 Ml Vial) 20 unit SUBCUT BEDTIME [facility] Insulin Human Lispro (Insulin Lispro 100 Unit/Ml 3 Ml Vial) 0 unit SUBCUT QIDACHS [facility]; Protocol Last Admin: 04/07/24 08:25 Dose: 9 unit Documented By: LINDA Levothyroxine Sodium (Levothyroxine Sodium 150 Mcg Tablet) 150 mcg PO DAILY@0600 [facility] Last Admin: 04/07/24 05:28 Dose: 150 mcg Documented By: AGUSTÍN Lidocaine (Lidocaine 4 % Patch Adh..Patch) 1 patch TRANSDERMA DAILY [facility]; Protocol Last Admin: 04/07/24 08:26 Dose: 1 patch Documented By: LINDA [place] Carbonate ([place] Carbonate Er 450 Mg Tablet.Er) 450 mg PO BID [facility] Last Admin: 04/07/24 08:25 Dose: 450 mg Documented By: LINDA Loratadine (Loratadine 10 Mg Tablet) 10 mg PO DAILY [facility] Last Admin: 04/07/24 08:25 Dose: 10 mg Documented By: LINDA Melatonin (Melatonin 3 Mg Tablet) 6 mg PO BEDTIME PRN PRN Reason: Insomnia Methylprednisolone Sodium Succinate (Methylprednisolone Sod Succ 40 Mg/Ml Vial) 40 mg IVPUSH Q24H [facility] Nicotine (Nicotine 21 Mg Patch.Td24) 21 mg TRANSDERMA DAILY [facility] Last Admin: 04/07/24 08:26 Dose: 21 mg Documented By: LINDA Nicotine Polacrilex (Nicotine Polacrilex Lozenge 2 Mg Lozenge) 2 mg BUCCAL Q2H PRN PRN Reason: Nicotine Cravings Last Admin: 04/07/24 08:25 Dose: 2 mg Documented By: LINDA Ondansetron HCl (Ondansetron Hcl 4 Mg/2 Ml Vial) 4 mg IVPUSH Q8H PRN PRN Reason: Nausea and Vomiting Polyethylene Glycol (Polyethylene Glycol 3350 17 Gm Powd.Pack) 17 gm PO DAILY [facility] Last Admin: 04/07/24 08:26 Dose: 17 gm Documented By: LINDA Senna/Docusate Sodium (Sennosides/Docusate Sodium Tablet) 2 tab PO BID [facility] Last Admin: 04/07/24 08:25 Dose: 2 tab Documented By: LINDA Sodium Chloride (0.9 % Sodium Chloride Flush 3 Ml Syringe) 3 ml IVFLUSH QSHIFT [facility] Last Admin: 04/07/24 08:27 Dose: 3 ml Documented By: LINAD Tamsulosin HCl (Tamsulosin Hcl 0.4 Mg Capsule) 0.4 mg PO BEDTIME [facility] Last Admin: 04/06/24 21:01 Dose: 0.4 mg Documented By: AGUSTÍN Labs 04/07/24 05:48 04/07/24 05:48 Labs: Laboratory Results - last 24 hr 04/06/24 04/06/24 04/06/24 11:43 16:28 20:00 MCV MCH MCHC RDW Plt Count MPV Absolute Nucleated RBC Nucleated RBC % (auto) Anion Gap Estim Creat Clear Calc Estimated GFR POC Glucose 327 H 293 H 355 H* Random Glucose Calcium Vitamin B12 Folate Blood Type Antibody Screen 04/07/24 04/07/24 04/07/24 05:48 07:00 07:38 MCV 80.7 MCH 22.6 L MCHC 27.9 L RDW 16.0 Plt Count 351 MPV 9.8 Absolute Nucleated RBC 0.000 Nucleated RBC % (auto) 0.0 Anion Gap 11 L Estim Creat Clear Calc 129.9 Estimated GFR > 60 POC Glucose 251 H Random Glucose 258 H Calcium 9.1 Vitamin B12 337 Folate 4.6 Blood Type A Negative Antibody Screen NEGATIVE Assessment and Plan (1) Bilateral pneumonia: Status: Acute (2) Acute hypoxemic respiratory failure: Status: Acute (3) Acute alteration in mental status: Status: Acute (4) Fall: Status: Acute Plan d4 58yo M snf resident with schizophrenia, TBI, DM2, hypothyroidism, asthma/COPD overlap, BPH, HLD admitted for hypoxia and sepsis due to PNA sepsis and acute hypoxia due to PNA, likely aspiration - 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/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, thin liquids - urinary antigens for pneumococcus + Legionella pending; BCx negative at 48h; PCT low; RVP negative - wean O2 as tolerated acute asthma/COPD exac - wean IV methylprednisolone [currently on 40 mg q24h], continue standing/prn nebs - continue Trelegy acute encephalopathy due to infection - resolved Fe deficiency anemia - started Fe repletion; FOBT pending; above transfusion threshold DM2 with hyperglycemia - increase doses of basal-bolus insulin hypothyroidism - continue LT4 HLD - statin HTN - atenolol schizophrenia - clozapine, fluphenazine, lithium, clonazepam BPH - tamsulosin tobacco abuse - NRT nonhealing ulcer great toe - wound care consult pending VTE ppx - LMWH dispo - PT eval pending In my clinical judgment, the patient requires continued inpatient hospitalization for the following reasons: IV ABX, hypoxia Total time managing care of this patient today: 35 minutes. Quality Stroke Does the patient have a stroke diagnosis?: No VTE Prior VTE?: No VTE Risk Level:: Medical - moderate - high VTE Device Contraindication: Treatment Not Indicated VTE Drug Contraindication: N/A - Med Ordered
--- NOTE | 2024-04-07 10:40 | PC.NURSE ---
Pt found with oxymask removed, o2 saturation 84%, oxymask replaced running at 6L, Pt able to recover to 95%, Pt complaint of inability to eat breakfast with oxymask on, RT consulted, Pt now on wagner nasal cannnula at 5L o2 saturation 97%, This RN was able to wean Pt down to 3L via wagner cannula o2 saturation 96%, respirations even and unlabored, call tracy within reach.
[2024-04-07 11:25] LABS: Glucose, Whole Blood 295 mg/dL (60-115)
--- NOTE | 2024-04-07 13:11 | HO.WOUND ---
Wound Consult: Follow up 58yr old? Male admitted to [facility] on 04/04/24 to the Inpatient Unit - See progress notes and H&P for detailed history.? Recent Inpatient [facility] admission see H&P for details. Wound consult follow up for Right Great Toe wound. Patient agreeable to assessment and photo documentation.? Patient reports neuropathy and reports no tenderness today. Right Great Toe Etiology: Diabetic Foot Wound??Present on Admission Measurements: see charting for detailed measurement Wound Bed: improved wound bed - dried wound bed with calloused edges Drainage / Odor: none noted Edges: ?well defined [place] wound: thick dry callus Pain: denies tenderness Goals of Treatment: ? Betadine to keep dry and dry gauze to protect from friciton Recommendations: 1. When applicable maintain blood glucose levels per Providers order. 2. Right Great Toe - Cleanse with Betadine allow to dry. Cover with dry gauze secure with tape. Change daily. Recommend follow up out patient Wound Clinic at [address] [place] [id number] and to call for an appointment at time of discharge. [phone].? Re-consult wound care Nurse for wound deterioration or wound changes.
[2024-04-07 16:24] LABS: Glucose, Whole Blood 190 mg/dL (60-115)
[2024-04-07 20:04] LABS: Glucose, Whole Blood 191 mg/dL (60-115)
[2024-04-07] MEDS: fluPHENAZine HCl 1 MG TABLET PO (20:32)
[2024-04-07] MEDS: cloZAPine 100 MG TABLET 200 MG PO (20:32)
[2024-04-07] MEDS: Tamsulosin HCL 0.4 MG CAPSULE PO (20:33)
[2024-04-07] MEDS: cloZAPine 25 MG TABLET 75 MG PO (20:33)
[2024-04-07] MEDS: Desmopressin Acetate 0.2 MG TABLET 0.1 MG PO (20:33)
[2024-04-07] MEDS: Atorvastatin Calcium 40 MG TABLET PO (20:33)
[2024-04-07] MEDS: Insulin Glargine,Hum.rec.anlog 100 UNIT/ML 10 ML VIAL 20 UNIT SUBCUT (20:34)
[2024-04-07] MEDS: methylPREDNISolone Sod Succ 40 MG/ML VIAL IVPUSH (22:59)
[2024-04-08] VITALS (9 sets, daily range): BP systolic 115–156; BP diastolic 56–66; PULSE 59–83; RESP 18–20; TEMP 36.2–36.9; O2SAT 93–99
--- NOTE | 2024-04-08 02:19 | PC.NURSE ---
[facility] called as continuous O2 indicating patient desats. Patient found with O2 in 82-84%, however his oxymask was on his forehead. Respiratory therapist called to see patient. Therapist increased oxygen to 5L, stating titrate down as his sats allow. Patient mostly sleeping, arousable, answering questions.
[2024-04-08] MEDS: Ampicillin Sodium/Sulbactam Na 3 GM in 0.9 % Sodium Chloride 100 ML IV ×4 (04:26→20:44)
[2024-04-08 05:49] LABS: Venous Blood Gas Refer to POC result
[2024-04-08 05:52] LABS: Hematocrit 29.6 % (42.0-52.0); Hemoglobin 8.4 g/dl (14.0-18.0); Mean Corpuscular HGB Conc 28.4 g/dl (31.0-36.0); Mean Corpuscular Hemoglobin 22.6 pg (27.0-33.0); Mean Corpuscular Volume 79.8 fL (80.0-98.0); Mean Platelet Volume 9.3 fL (9.4-12.4); Platelet Count 338 X10*3/uL (160-400); Red Blood Count 3.71 X10*6/uL (4.60-5.80); Red Cell Distribution Width 15.9 % (11.0-16.0)
[2024-04-08 06:09] LABS: Anion Gap 10 (12-20); Blood Urea Nitrogen 19 mg/dL (9-16); Calcium 8.7 mg/dL (8.4-10.2); Carbon Dioxide 33 mmol/L (22-29); Chloride 101 mmol/L (96-108); Creatinine Clr Calc Pharmacy 112.3; Estimated Glomerular Filt Rate > 60; Glucose Random 347 mg/dL (60-115); Potassium 4.9 mmol/L (3.3-5.1); Sodium 139 mmol/L (135-145)
[2024-04-08 06:11] LABS: VBG Base Excess 13.1 mmol/L; VBG HCO3 39 mmol/L (22-26); VBG pCO2 58 mmHg; VBG pH 7.43 (7.32-7.43); VBG pO2 93 mmHg
[2024-04-08] MEDS: Levothyroxine Sodium 150 MCG TABLET PO (06:40)
[2024-04-08 07:31] LABS: Glucose, Whole Blood 326 mg/dL (60-115)
[2024-04-08] MEDS: Insulin Lispro 100 UNIT/ML 3 ML VIAL SUBCUT ×4 (07:55→20:42)
[2024-04-08] MEDS: 0.9 % Sodium Chloride Flush 3 ML SYRINGE IVFLUSH ×3 (07:55→20:47)
[2024-04-08] MEDS: atenoloL 25 MG TABLET PO (07:56)
[2024-04-08] MEDS: Sennosides/Docusate Sodium TABLET 2 TAB PO ×2 (07:56→20:35)
[2024-04-08] MEDS: Lithium Carbonate ER 450 MG TABLET.ER PO ×2 (07:56→20:28)
[2024-04-08] MEDS: Loratadine 10 MG TABLET PO (07:56)
[2024-04-08] MEDS: Ferrous Sulfate 324 MG TABLET.DR PO (07:56)
[2024-04-08] MEDS: Enoxaparin Sodium 40 MG/0.4 ML SYRINGE SUBCUT (07:57)
[2024-04-08] MEDS: polyethylene glycoL 3350 17 GM POWD.PACK PO (07:57)
[2024-04-08] MEDS: Nicotine 21 MG PATCH.TD24 TRANSDERMA (07:58)
[2024-04-08] MEDS: Lidocaine 4 % Patch ADH..PATCH 1 PATCH TRANSDERMA (07:58)
[2024-04-08] MEDS: Albuterol/Iprat 2.5/0.5MG 3 ML AMPUL.NEB INHALE ×3 (08:48→18:51)
[2024-04-08] MEDS: Fluticasone/Umeclidinium/Vilanterol 100/62.5/25 BLST.W.DEV 1 PUFF INHALE (08:48)
--- NOTE | 2024-04-08 10:43 | P.PNIM_ITS ---
Subjective Subjective Date of Service: 04/08/24 Interval History: Dyspnea improving. Dry cough. On 4L O2 currently. Review of Systems Review of Systems: Yes all other systems are reviewed and are negative Physical Exam 2 Vital Signs: Vital Signs: Last Vital Signs Temp 97.7 F 04/08/24 07:17 Pulse 72 04/08/24 07:17 Resp 19 04/08/24 07:17 BP 115/56 L 04/08/24 07:17 Pulse Ox 97 04/08/24 07:17 O2 Del Method Oxymask 04/08/24 07:17 O2 Flow Rate 4.0 04/08/24 07:17 Oxygen Flow Rate 4 04/04/24 00:09 BMI result Body Mass Index 24.0 Gen: in no acute distress HEENT: sclera anicteric, moist mucus membranes Neck: supple Lungs: diminished breath sounds Heart: regular rate and rhythm, no murmurs Abd: soft, non-tender, non-distended Ext: no edema Skin: warm/well-perfused, R great toe pad with dry ulcer Neuro: alert and oriented x3, no focal findings Psych: appropriate affect Objective Data Active Medications Acetaminophen (Acetaminophen Supp 650 Mg Supp.Rect) 650 mg [place] Q6H PRN PRN Reason: Pain, Mild (Pain Scale 1-3) Albuterol/Ipratropium (Albuterol/Iprat 2.5/0.5mg 3 Ml Ampul.Neb) 3 ml INHALE RQ4H WHILE AWAKE [facility] Last Admin: 04/08/24 08:48 Dose: 3 ml Documented By: CATHERINE Albuterol/Ipratropium (Albuterol/Iprat 2.5/0.5mg 3 Ml Ampul.Neb) 3 ml INHALE Q2H PRN PRN Reason: Wheezing Atenolol (Atenolol 25 Mg Tablet) 25 mg PO DAILY [facility]; Protocol Last Admin: 04/08/24 07:56 Dose: 25 mg Documented By: MARLYN Atorvastatin Calcium (Atorvastatin Calcium 40 Mg Tablet) 40 mg PO BEDTIME [facility] Last Admin: 04/07/24 20:33 Dose: 40 mg Documented By: COTEMA Clonazepam (Clonazepam 0.5 Mg Tablet) 0.5 mg PO BID PRN PRN Reason: anxiety, moderate Last Admin: 04/07/24 20:33 Dose: 0.5 mg Documented By: TIMOTHY Clozapine (Clozapine 25 Mg Tablet) 75 mg PO BEDTIME [facility] Last Admin: 04/07/24 20:33 Dose: 75 mg Documented By: TIMOTHY Clozapine (Clozapine 100 Mg Tablet) 200 mg PO BEDTIME [facility] Last Admin: 04/07/24 20:32 Dose: 200 mg Documented By: TIMOTHY Desmopressin Acetate (Desmopressin Acetate 0.2 Mg Tablet) 0.1 mg PO BEDTIME [facility] Last Admin: 04/07/24 20:33 Dose: 0.1 mg Documented By: TIMOTHY Docusate Sodium (Docusate Sodium 100 Mg Capsule) 100 mg PO BID PRN PRN Reason: constipation Enoxaparin Sodium (Enoxaparin Sodium 40 Mg/0.4 Ml Syringe) 40 mg SUBCUT DAILY [facility] Last Admin: 04/08/24 07:57 Dose: 40 mg Documented By: MARLYN Ferrous Sulfate (Ferrous Sulfate 324 Mg Tablet.Dr) 324 mg PO DAILY [facility] Last Admin: 04/08/24 07:56 Dose: 324 mg Documented By: MARLYN Fluphenazine HCl (Fluphenazine Hcl 1 Mg Tablet) 1 mg PO BEDTIME [facility] Last Admin: 04/07/24 20:32 Dose: 1 mg Documented By: TIMOTHY Fluticasone Propionate (Fluticasone Propionate Nasal 16 Gm [place]) 1 spray NOSTRIL-B DAILY [facility] Last Admin: 04/08/24 10:16 Dose: Not Given Documented By: MARLYN Non-Admin Reason: Med Not Available Fluticasone/Umeclidinium/Vilanterol (Fluticasone/Umeclidinium/Vilanterol 100/62.5/25 Blst.W.Dev) 1 puff INHALE RDAILY [facility] Last Admin: 04/08/24 08:48 Dose: 1 puff Documented By: CATHERINE Gabapentin (Gabapentin 600 Mg Tablet) 600 mg PO TID [facility] Last Admin: 04/08/24 08:23 Dose: Not Given Documented By: MARLYN Non-Admin Reason: too sleepy to take Glucose (Glucose Gel 15 Gm Gel..Gram.) 15 gm PO Q15M PRN; Protocol PRN Reason: per Hypoglycemia Standing Ord. Guaifenesin (Guaifenesin 200 Mg/10 Ml 10 Ml Liquid) 10 ml PO Q4H PRN PRN Reason: Cough Last Admin: 04/05/24 09:57 Dose: 10 ml Documented By: KELLEY Dextrose (D10) 250 mls @ 750 mls/hr IV Q15M PRN; Protocol PRN Reason: per Hypoglycemia Standing Ord. Ampicillin Sodium/Sulbactam (Sodium 3 gm/ Sodium Chloride) 100 mls @ 200 mls/hr IV Q6H [facility] Last Infusion: 04/08/24 10:16 Dose: Infused Documented By: MARLYN Insulin Glargine (Insulin Glargine,Hum.Rec.Anlog 100 Unit/Ml 10 Ml Vial) 22 unit SUBCUT BEDTIME [facility] Insulin Human Lispro (Insulin Lispro 100 Unit/Ml 3 Ml Vial) 0 unit SUBCUT QIDACHS [facility]; Protocol Last Admin: 04/08/24 07:55 Dose: 14 unit Documented By: MARLYN Levothyroxine Sodium (Levothyroxine Sodium 150 Mcg Tablet) 150 mcg PO DAILY@0600 [facility] Last Admin: 04/08/24 06:40 Dose: 150 mcg Documented By: MAG Lidocaine (Lidocaine 4 % Patch Adh..Patch) 1 patch TRANSDERMA DAILY [facility]; Protocol Last Admin: 04/08/24 07:58 Dose: 1 patch Documented By: MARLYN [place] Carbonate ([place] Carbonate Er 450 Mg Tablet.Er) 450 mg PO BID [facility] Last Admin: 04/08/24 07:56 Dose: 450 mg Documented By: MARLYN Loratadine (Loratadine 10 Mg Tablet) 10 mg PO DAILY [facility] Last Admin: 04/08/24 07:56 Dose: 10 mg Documented By: MARLYN Melatonin (Melatonin 3 Mg Tablet) 6 mg PO BEDTIME PRN PRN Reason: Insomnia Methylprednisolone Sodium Succinate (Methylprednisolone Sod Succ 40 Mg/Ml Vial) 40 mg IVPUSH Q24H [facility] Last Admin: 04/07/24 22:59 Dose: 40 mg Documented By: COTEMA Nicotine (Nicotine 21 Mg Patch.Td24) 21 mg TRANSDERMA DAILY [facility] Last Admin: 04/08/24 07:58 Dose: 21 mg Documented By: MARLYN Nicotine Polacrilex (Nicotine Polacrilex Lozenge 2 Mg Lozenge) 2 mg BUCCAL Q2H PRN PRN Reason: Nicotine Cravings Last Admin: 04/07/24 22:59 Dose: 2 mg Documented By: TIMOTHY Ondansetron HCl (Ondansetron Hcl 4 Mg/2 Ml Vial) 4 mg IVPUSH Q8H PRN PRN Reason: Nausea and Vomiting Polyethylene Glycol (Polyethylene Glycol 3350 17 Gm Powd.Pack) 17 gm PO DAILY [facility] Last Admin: 04/08/24 07:57 Dose: 17 gm Documented By: MARLYN Senna/Docusate Sodium (Sennosides/Docusate Sodium Tablet) 2 tab PO BID [facility] Last Admin: 04/08/24 07:56 Dose: 2 tab Documented By: MARLYN Sodium Chloride (0.9 % Sodium Chloride Flush 3 Ml Syringe) 3 ml IVFLUSH QSHIFT [facility] Last Admin: 04/08/24 07:55 Dose: 3 ml Documented By: MARLYN Tamsulosin HCl (Tamsulosin Hcl 0.4 Mg Capsule) 0.4 mg PO BEDTIME [facility] Last Admin: 04/07/24 20:33 Dose: 0.4 mg Documented By: TIMOTHY Labs 04/08/24 05:40 04/08/24 05:40 Labs: Laboratory Results - last 24 hr 04/07/24 04/07/24 04/07/24 11:22 16:19 19:42 MCV MCH MCHC RDW Plt Count MPV Absolute Nucleated RBC Nucleated RBC % (auto) VBG pH VBG pCO2 VBG pO2 VBG HCO3 VBG O2 Saturation VBG Base Excess Anion Gap Estim Creat Clear Calc Estimated GFR POC Glucose 295 H 190 H 191 H Random Glucose Calcium 04/08/24 04/08/24 04/08/24 05:40 05:47 07:26 MCV 79.8 L MCH 22.6 L MCHC 28.4 L RDW 15.9 Plt Count 338 MPV 9.3 L Absolute Nucleated RBC 0.000 Nucleated RBC % (auto) 0.0 VBG pH 7.43 VBG pCO2 58 VBG pO2 93 VBG HCO3 39 H VBG O2 Saturation 100.0 VBG Base Excess 13.1 Anion Gap 10 L Estim Creat Clear Calc 112.3 Estimated GFR > 60 POC Glucose 326 H Random Glucose 347 H Calcium 8.7 Assessment and Plan (1) Bilateral pneumonia: Status: Acute (2) Acute hypoxemic respiratory failure: Status: Acute (3) Acute alteration in mental status: Status: Acute (4) Fall: Status: Acute Plan d5 58yo M [facility] resident with schizophrenia, TBI, DM2, hypothyroidism, asthma/COPD overlap, BPH, HLD admitted for hypoxia and sepsis due to PNA sepsis and acute hypoxia due to PNA, likely aspiration - 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/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: NDD3 solids, thin liquids - urinary antigens for pneumococcus + Legionella pending; BCx negative at 48h; PCT low; RVP negative - continue to wean O2 as tolerated [was on 5L yesterday, today on 4L] acute asthma/COPD exac - change IV methylprednisolone to prednisone taper [40 mg daily/taper by 10 mg q2d], continue nebs + Trelegy acute encephalopathy due to infection - resolved Fe deficiency anemia - started Fe repletion; FOBT pending; H+H above transfusion threshold DM2 with hyperglycemia due to steroids - increase doses of basal and bolus insulin hypothyroidism - continue LT4 HLD - statin HTN - atenolol schizophrenia - clozapine, fluphenazine, lithium, clonazepam BPH - tamsulosin tobacco abuse - NRT nonhealing ulcer great toe - wound care consulted: Cleanse with Betadine allow to dry. Cover with dry gauze secure with tape. Change daily. Follow up with [facility] as outpt VTE ppx - LMWH dispo - PT eval done: recommend STR In my clinical judgment, the patient requires continued inpatient hospitalization for the following reasons: IV ABX, hypoxia, STR placement Total time managing care of this patient today: 35 minutes. Quality Stroke Does the patient have a stroke diagnosis?: No VTE Prior VTE?: No VTE Risk Level:: Medical - moderate - high VTE Device Contraindication: Treatment Not Indicated VTE Drug Contraindication: N/A - Med Ordered
[2024-04-08] MEDS: Nicotine Polacrilex Lozenge 2 MG LOZENGE BUCCAL ×5 (10:51→22:41)
[2024-04-08 11:18] LABS: Glucose, Whole Blood 208 mg/dL (60-115)
[2024-04-08] MEDS: predniSONE 20 MG TABLET 30 MG PO (11:42)
--- NOTE | 2024-04-08 11:43 | MHC.CM.PN ---
Addendum entered by Georgia Cronin RN 04/08/24 14:06: CM MET W/PT TO DISCUSS DISPO, PT REPORTS HE WILL ONLY GO TO STR IF HE CAN SMOKE, CM TO EXPAND REFERRAL IF RAVIN NICOLAS UNABLE TO ACCOMMODATE SMOKING. Original Note: EMR REVIEWED, PER HOSPITALIST PT WEANING OFF O2 AND P.T. RECOMMENDING STR, CM ATTEMPTED TO CONTACT PT'S HCP/BROTHER, NO ANSWER AND DETAILED MESSAGE LEFT. CM CONTACTED PT'S BANK APPRAISER LUZ [phone], LUZ REPORTS THAT CM WILL LIKELY NEVER BE ABLE TO GET IN TOUCH W/PT'S BROTHER.HCP AND PT DOES NOT HAVE A GUARDIAN. LUZ REPORTS SHE THINKS PT WILL REFUSE STR HE IS HIS OWN PERSON AND MAKES HIS OWN DECISION, PER LUZ PT WAS AT [facility] FOR ONLY A DAY PRIOR TO DCING HOME AND PT IS A CHAIN SMOKER. PT LIVES IN AN APT WHERE HE AND ROOMMATES ARE INDEP HOWEVER SHE IS WORKING ON HAVING PT MOVE TO THE NON INDEP SIDE OF . BLANKET REFERRAL TO BE PLACED IN CASE PT IS AGREEABLE TO STR.
--- NOTE | 2024-04-08 12:38 | MHC.SL.SWA ---
Risk of Aspiration Due to: Neurological Condition Dysphasia Diet Status: DOWNGRADE solids Liquid Consistency and Strategies for Safe Swallow: Liquid Intake Recommendation: Thin Liquid Intake Strategies: Small Sips Solid Food Consistency: Dietary Recommendations: Chopped/Advanced (NDD3) Additional Modifications to Solid Foods: Oral Medication Intake: Whole with Liquid Please contact the pharmacy regarding appropriate crushable or liquid drug formulations that are available whenever modified delivery is recommended. Compensatory Strategies and Precautions to be Taken for Safe Swallow: Sitting Upright (90 deg) Alternate Liquids/Solids Rate of Ingestion Change Oral Check Supervision While Eating and Drinking for Safe Swallow: Total Supervision (1:1) Swallowing Recommended Treatments: Compens. Strategy Educat. Recommendation for Speech: Inpatient Speech Therapy Comment: Recommend DOWNGRADE to CHOPPED/ADVANCED SOLIDS (NDD3). Continue w/ THIN LIQUIDS and MEDS WHOLE with LIQUIDS. TOBACCO SPRAYER will monitor toleration of diet and upgrade if warranted. Recommend full supervision d/t observed coughing up solids during TOBACCO SPRAYER visit. Dragger Out Clinican/Clinical Fellow: No Supervisory Statement: I have reviewed and agree with the student/clinical fellow's documentation: N/A Speech Language Pathologist: Do Nicole M.A., [facility]-TOBACCO SPRAYER
[2024-04-08 13:33] LABS: Strep Pneumo Ag urine Not Detected (Not Detected)
[2024-04-08] MEDS: Gabapentin 600 MG TABLET PO ×2 (14:21→20:28)
[2024-04-08 16:02] LABS: Glucose, Whole Blood 175 mg/dL (60-115)
[2024-04-08] MEDS: cloZAPine 25 MG TABLET 75 MG PO (20:26)
[2024-04-08] MEDS: Atorvastatin Calcium 40 MG TABLET PO (20:26)
[2024-04-08] MEDS: Desmopressin Acetate 0.2 MG TABLET 0.1 MG PO (20:26)
[2024-04-08] MEDS: cloZAPine 100 MG TABLET 200 MG PO ×2 (20:28→20:30)
[2024-04-08] MEDS: fluPHENAZine HCl 1 MG TABLET PO (20:29)
[2024-04-08] MEDS: Tamsulosin HCL 0.4 MG CAPSULE PO (20:31)
[2024-04-08 20:32] LABS: Glucose, Whole Blood 318 mg/dL (60-115)
[2024-04-08] MEDS: Insulin Glargine,Hum.rec.anlog 100 UNIT/ML 10 ML VIAL 22 UNIT SUBCUT (20:43)
--- NOTE | 2024-04-08 21:00 | PC.NURSE ---
This RN assumed care at 1900. Pt AOx2, and forgetful, speech is appropriate for patient. Hx of schizophrenia, pt occasionally talks about alien's . Lung sounds diminished throughout, NC with [address], replaced with oxymask for bed, due to mouth breathing with 2 1/2 L. Continuos pulse Ox in place. Diabetic ulcer on R big toe, bandaged with gauze on 04/07, clean dry and intact. Pt is on thin liquids, and chopped food. Pt sleeping [place], call tracy within reach.
[2024-04-08] MEDS: Melatonin 3 MG TABLET 6 MG PO (22:38)
[2024-04-09] VITALS (10 sets, daily range): BP systolic 116–142; BP diastolic 56–66; PULSE 63–75; RESP 18; TEMP 36.2–37.1; O2SAT 84–100
[2024-04-09] MEDS: Ampicillin Sodium/Sulbactam Na 3 GM in 0.9 % Sodium Chloride 100 ML IV (02:59)
[2024-04-09 03:44] LABS: Legionella Ag Urine Not Detected (Not Detected)
[2024-04-09] MEDS: Levothyroxine Sodium 150 MCG TABLET PO (05:35)
[2024-04-09] MEDS: Nicotine Polacrilex Lozenge 2 MG LOZENGE BUCCAL ×6 (05:37→21:13)
[2024-04-09 05:47] LABS: Venous Blood Gas Refer to POC result
[2024-04-09 05:51] LABS: Hematocrit 29.3 % (42.0-52.0); Hemoglobin 8.3 g/dl (14.0-18.0); Mean Corpuscular HGB Conc 28.3 g/dl (31.0-36.0); Mean Corpuscular Hemoglobin 22.4 pg (27.0-33.0); Mean Platelet Volume 9.5 fL (9.4-12.4); Platelet Count 339 X10*3/uL (160-400); Red Blood Count 3.71 X10*6/uL (4.60-5.80); Red Cell Distribution Width 15.6 % (11.0-16.0); White Blood Count 12.9 X10*3/uL (4.8-10.8)
[2024-04-09 05:52] LABS: VBG Base Excess 13.7 mmol/L; VBG HCO3 39 mmol/L (22-26); VBG pCO2 56 mmHg; VBG pH 7.45 (7.32-7.43); VBG pO2 65 mmHg
[2024-04-09 06:06] LABS: Anion Gap 9 (12-20); Blood Urea Nitrogen 16 mg/dL (9-16); Carbon Dioxide 34 mmol/L (22-29); Chloride 102 mmol/L (96-108); Creatinine Clr Calc Pharmacy 126.3; Estimated Glomerular Filt Rate > 60; Glucose Random 232 mg/dL (60-115); Potassium 4.2 mmol/L (3.3-5.1); Sodium 141 mmol/L (135-145)
[2024-04-09] MEDS: Albuterol/Iprat 2.5/0.5MG 3 ML AMPUL.NEB INHALE ×4 (07:41→19:36)
[2024-04-09 07:46] LABS: Glucose, Whole Blood 205 mg/dL (60-115)
[2024-04-09] MEDS: Enoxaparin Sodium 40 MG/0.4 ML SYRINGE SUBCUT (08:18)
[2024-04-09] MEDS: Insulin Lispro 100 UNIT/ML 3 ML VIAL SUBCUT ×4 (08:18→21:14)
[2024-04-09] MEDS: Nicotine 21 MG PATCH.TD24 TRANSDERMA (08:18)
[2024-04-09] MEDS: predniSONE 20 MG TABLET 30 MG PO (08:18)
[2024-04-09] MEDS: polyethylene glycoL 3350 17 GM POWD.PACK PO (08:18)
[2024-04-09] MEDS: Lidocaine 4 % Patch ADH..PATCH 1 PATCH TRANSDERMA (08:18)
[2024-04-09] MEDS: Loratadine 10 MG TABLET PO (08:19)
[2024-04-09] MEDS: Sennosides/Docusate Sodium TABLET 2 TAB PO ×2 (08:19→21:12)
[2024-04-09] MEDS: Gabapentin 600 MG TABLET PO ×3 (08:19→21:12)
[2024-04-09] MEDS: Ferrous Sulfate 324 MG TABLET.DR PO (08:19)
[2024-04-09] MEDS: Lithium Carbonate ER 450 MG TABLET.ER PO ×2 (08:19→21:12)
[2024-04-09] MEDS: atenoloL 25 MG TABLET PO (08:19)
[2024-04-09] MEDS: 0.9 % Sodium Chloride Flush 3 ML SYRINGE IVFLUSH ×3 (08:20→21:11)
--- NOTE | 2024-04-09 08:58 | MHC.CM.PN ---
Addendum entered by Georgia Cronin RN 04/09/24 10:33: [facility] REPORT[facility] PT WILL NEED PASRR LEVEL 2 D/T RECENT PSYCH STAY, HOSPITALIST WILL KEEP PT OVERNIGHT TO CONT TO WEAN PT OFF O2. Original Note: Cm met w/pt to discuss dispo, pt aware [facility] is offering and pt can smoke 4xday at scheduled times only, pt agreeable to this plan, cm to contact communications program manager Sylvia once pt is cleared for dc, cm will cont to follow.
--- NOTE | 2024-04-09 10:37 | HO.PM.IMPN ---
Subjective Subjective Date of Service: 04/09/24 Interval History: Dropped to 82% on room air ; put on 2 L supplemental oxygen Review of Systems Review of Systems: Yes all other systems are reviewed and are negative Physical Exam Vital Signs: Vital Signs: Last Vital Signs Temp 97.3 F 04/09/24 07:25 Pulse 73 04/09/24 08:19 Resp 18 04/09/24 07:45 BP 116/56 L 04/09/24 08:19 Pulse Ox 93 04/09/24 08:27 O2 Del Method Nasal Cannula 04/09/24 08:27 O2 Flow Rate 2 04/09/24 08:27 Oxygen Flow Rate 4 04/04/24 00:09 BMI result Body Mass Index 24.0 Gen: in no acute distress HEENT: sclera anicteric, moist mucus membranes Neck: supple Lungs: diminished breath sounds Heart: regular rate and rhythm, no murmurs Abd: soft, non-tender, non-distended Ext: no edema Skin: warm/well-perfused, R great toe pad with dry ulcer Neuro: alert and oriented x3, no focal findings Psych: appropriate affect Objective Data Active Medications Acetaminophen (Acetaminophen Supp 650 Mg Supp.Rect) 650 mg [place] Q6H PRN PRN Reason: Pain, Mild (Pain Scale 1-3) Albuterol/Ipratropium (Albuterol/Iprat 2.5/0.5mg 3 Ml Ampul.Neb) 3 ml INHALE RQ4H WHILE AWAKE [facility] Last Admin: 04/09/24 07:41 Dose: 3 ml Documented By: NASIM Albuterol/Ipratropium (Albuterol/Iprat 2.5/0.5mg 3 Ml Ampul.Neb) 3 ml INHALE Q2H PRN PRN Reason: Wheezing Atenolol (Atenolol 25 Mg Tablet) 25 mg PO DAILY [facility]; Protocol Last Admin: 04/09/24 08:19 Dose: 25 mg Documented By: COTEMA Atorvastatin Calcium (Atorvastatin Calcium 40 Mg Tablet) 40 mg PO BEDTIME [facility] Last Admin: 04/08/24 20:26 Dose: 40 mg Documented By: SULMA Clonazepam (Clonazepam 0.5 Mg Tablet) 0.5 mg PO BID PRN PRN Reason: anxiety, moderate Last Admin: 04/07/24 20:33 Dose: 0.5 mg Documented By: TIMOTHY Clozapine (Clozapine 25 Mg Tablet) 75 mg PO BEDTIME [facility] Last Admin: 04/08/24 20:26 Dose: 75 mg Documented By: SULMA Clozapine (Clozapine 100 Mg Tablet) 200 mg PO BEDTIME [facility] Last Admin: 04/08/24 20:30 Dose: 200 mg Documented By: SULMA Desmopressin Acetate (Desmopressin Acetate 0.2 Mg Tablet) 0.1 mg PO BEDTIME [facility] Last Admin: 04/08/24 20:26 Dose: 0.1 mg Documented By: SULMA Docusate Sodium (Docusate Sodium 100 Mg Capsule) 100 mg PO BID PRN PRN Reason: constipation Enoxaparin Sodium (Enoxaparin Sodium 40 Mg/0.4 Ml Syringe) 40 mg SUBCUT DAILY [facility] Last Admin: 04/09/24 08:18 Dose: 40 mg Documented By: TIMOTHY Ferrous Sulfate (Ferrous Sulfate 324 Mg Tablet.Dr) 324 mg PO DAILY [facility] Last Admin: 04/09/24 08:19 Dose: 324 mg Documented By: TIMOTHY Fluphenazine HCl (Fluphenazine Hcl 1 Mg Tablet) 1 mg PO BEDTIME [facility] Last Admin: 04/08/24 20:29 Dose: 1 mg Documented By: SULMA Fluticasone Propionate (Fluticasone Propionate Nasal 16 Gm [place]) 1 spray NOSTRIL-B DAILY [facility] Last Admin: 04/09/24 08:19 Dose: Not Given Documented By: TIMOTHY Non-Admin Reason: Patient Refused Fluticasone/Umeclidinium/Vilanterol (Fluticasone/Umeclidinium/Vilanterol 100/62.5/25 Blst.W.Dev) 1 puff INHALE RDAILY [facility] Last Admin: 04/09/24 07:58 Dose: Not Given Documented By: NASIM Non-Admin Reason: See Note Gabapentin (Gabapentin 600 Mg Tablet) 600 mg PO TID [facility] Last Admin: 04/09/24 08:19 Dose: 600 mg Documented By: TIMOTHY Glucose (Glucose Gel 15 Gm Gel..Gram.) 15 gm PO Q15M PRN; Protocol PRN Reason: per Hypoglycemia Standing Ord. Guaifenesin (Guaifenesin 200 Mg/10 Ml 10 Ml Liquid) 10 ml PO Q4H PRN PRN Reason: Cough Last Admin: 04/05/24 09:57 Dose: 10 ml Documented By: KELLEY Dextrose (D10) 250 mls @ 750 mls/hr IV Q15M PRN; Protocol PRN Reason: per Hypoglycemia Standing Ord. Insulin Glargine (Insulin Glargine,Hum.Rec.Anlog 100 Unit/Ml 10 Ml Vial) 22 unit SUBCUT BEDTIME [facility] Last Admin: 04/08/24 20:43 Dose: 22 unit Documented By: SULMA Insulin Human Lispro (Insulin Lispro 100 Unit/Ml 3 Ml Vial) 0 unit SUBCUT QIDACHS [facility]; Protocol Last Admin: 04/09/24 08:18 Dose: 7 unit Documented By: COTEMA Levothyroxine Sodium (Levothyroxine Sodium 150 Mcg Tablet) 150 mcg PO DAILY@0600 [facility] Last Admin: 04/09/24 05:35 Dose: 150 mcg Documented By: SLUMA Lidocaine (Lidocaine 4 % Patch Adh..Patch) 1 patch TRANSDERMA DAILY [facility]; Protocol Last Admin: 04/09/24 08:18 Dose: 1 patch Documented By: COTEMA [place] Carbonate ([place] Carbonate Er 450 Mg Tablet.Er) 450 mg PO BID [facility] Last Admin: 04/09/24 08:19 Dose: 450 mg Documented By: MONICAEMA Loratadine (Loratadine 10 Mg Tablet) 10 mg PO DAILY [facility] Last Admin: 04/09/24 08:19 Dose: 10 mg Documented By: TIMOTHY Melatonin (Melatonin 3 Mg Tablet) 6 mg PO BEDTIME PRN PRN Reason: Insomnia Last Admin: 04/08/24 22:38 Dose: 6 mg Documented By: SULMA Nicotine (Nicotine 21 Mg Patch.Td24) 21 mg TRANSDERMA DAILY [facility] Last Admin: 04/09/24 08:18 Dose: 21 mg Documented By: TIMOTHY Nicotine Polacrilex (Nicotine Polacrilex Lozenge 2 Mg Lozenge) 2 mg BUCCAL Q2H PRN PRN Reason: Nicotine Cravings Last Admin: 04/09/24 08:19 Dose: 2 mg Documented By: MONICAEMA Ondansetron HCl (Ondansetron Hcl 4 Mg/2 Ml Vial) 4 mg IVPUSH Q8H PRN PRN Reason: Nausea and Vomiting Polyethylene Glycol (Polyethylene Glycol 3350 17 Gm Powd.Pack) 17 gm PO DAILY [facility] Last Admin: 04/09/24 08:18 Dose: 17 gm Documented By: TIMOTHY Prednisone (Prednisone 20 Mg Tablet) 40 mg PO DAILY [facility]; Taper Stop: 04/16/24 08:59 Last Admin: 04/09/24 08:18 Dose: 40 mg Documented By: TIMOTHY Senna/Docusate Sodium (Sennosides/Docusate Sodium Tablet) 2 tab PO BID [facility] Last Admin: 04/09/24 08:19 Dose: 2 tab Documented By: TIMOTHY Sodium Chloride (0.9 % Sodium Chloride Flush 3 Ml Syringe) 3 ml IVFLUSH QSHIFT [facility] Last Admin: 04/09/24 08:20 Dose: 3 ml Documented By: TIMOTHY Tamsulosin HCl (Tamsulosin Hcl 0.4 Mg Capsule) 0.4 mg PO BEDTIME [facility] Last Admin: 04/08/24 20:31 Dose: 0.4 mg Documented By: ORLANDV Labs 04/09/24 05:41 04/09/24 05:41 Labs: Laboratory Results - last 24 hr 04/04/24 04/08/24 04/08/24 13:30 11:12 15:52 MCV MCH MCHC RDW Plt Count MPV Absolute Nucleated RBC Nucleated RBC % (auto) VBG pH VBG pCO2 VBG pO2 VBG HCO3 VBG O2 Saturation VBG Base Excess Anion Gap Estim Creat Clear Calc Estimated GFR POC Glucose 208 H 175 H Random Glucose Calcium Ur L.pneumophila Ag Not Detected Ur Strep pneumoniae Ag Not Detected 04/08/24 04/09/24 04/09/24 20:22 05:41 05:45 MCV 79.0 L MCH 22.4 L MCHC 28.3 L RDW 15.6 Plt Count 339 MPV 9.5 Absolute Nucleated RBC 0.000 Nucleated RBC % (auto) 0.0 VBG pH 7.45 H VBG pCO2 56 VBG pO2 65 VBG HCO3 39 H VBG O2 Saturation 92.0 VBG Base Excess 13.7 Anion Gap 9 L Estim Creat Clear Calc 126.3 Estimated GFR > 60 POC Glucose 318 H Random Glucose 232 H Calcium 9.0 Ur L.pneumophila Ag Ur Strep pneumoniae Ag 04/09/24 07:30 MCV MCH MCHC RDW Plt Count MPV Absolute Nucleated RBC Nucleated RBC % (auto) VBG pH VBG pCO2 VBG pO2 VBG HCO3 VBG O2 Saturation VBG Base Excess Anion Gap Estim Creat Clear Calc Estimated GFR POC Glucose 205 H Random Glucose Calcium Ur L.pneumophila Ag Ur Strep pneumoniae Ag Microbiology Microbiology Results: Microbiology 04/04/24 00:38 Blood Culture - Final Blood - Venous No growth after 5 days. 04/04/24 00:15 Blood Culture - Final Blood - Venous No growth after 5 days. 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: NDD3 solids, thin liquids - urinary antigens for pneumococcus + Legionella pending; BCx negative at 48h; PCT low; RVP negative - continue to wean O2 as tolerated [was on 4L yesterday, today on 2L] acute asthma/COPD exac - change IV methylprednisolone to prednisone taper [40 mg daily/taper by 10 mg q2d], continue nebs + Trelegy acute encephalopathy due to infection - resolved Fe deficiency anemia - started Fe repletion; FOBT pending; H+H above transfusion threshold DM2 with hyperglycemia due to steroids - increase doses of basal and bolus insulin hypothyroidism - continue LT4 HLD - statin HTN - atenolol schizophrenia - clozapine, fluphenazine, lithium, clonazepam BPH - tamsulosin tobacco abuse - NRT nonhealing ulcer great toe - wound care consulted: Cleanse with Betadine allow to dry. Cover with dry gauze secure with tape. Change daily. Follow up with [facility] as outpt VTE ppx - LMWH dispo - PT eval done: recommend STR In my clinical judgment, the patient requires continued inpatient hospitalization for the following reasons: hypoxia, STR placement Quality Stroke Does the patient have a stroke diagnosis?: No VTE Prior VTE?: No VTE Risk Level:: Medical - moderate - high VTE Device Contraindication: Treatment Not Indicated VTE Drug Contraindication: N/A - Med Ordered
[2024-04-09 11:40] LABS: Glucose, Whole Blood 220 mg/dL (60-115)
--- NOTE | 2024-04-09 14:59 | MHC.SL.SWA ---
Speech Pathologist Impression: Risk of Aspiration Due to: Neurological Condition Dysphasia Diet Status: Recommend continue on Chopped Advanced, Thin Liquids, pills whole with liquid. Liquid Consistency and Strategies for Safe Swallow: Liquid Intake Recommendation: Thin Liquid Intake Strategies: Small Sips Solid Food Consistency: Dietary Recommendations: Chopped/Advanced (NDD3) Additional Modifications to Solid Foods: Oral Medication Intake: Whole with Liquid Please contact the pharmacy regarding appropriate crushable or liquid drug formulations that are available whenever modified delivery is recommended. Compensatory Strategies and Precautions to be Taken for Safe Swallow: Sitting Upright (90 deg) Small Bites and Sips Alternate Liquids/Solids Supervision While Eating and Drinking for Safe Swallow: None Needed Foods to Avoid: Swallowing Recommended Treatments: Compens. Strategy Educat. Recommendation for Speech: Inpatient Speech Therapy Comment: Patient seen at lunch, however most of his lunch had been consumed at time of visit. Patient was independently completing respiratory treatment at time of visit, reporting he had no difficulties at lunch and had eaten every item present. TELETYPESETTER OPERATOR requested patient take some sips of coffee which he was highly compliant with, evidencing no difficulty with this consistency. Patient presents as tolerating current diet consistencies well (was downgraded back to Chopped Advanced yesterday after TELETYPESETTER OPERATOR observed patient having difficulty managing eating a regular hamburger). Recommend continue on Chopped Advanced, Thin Liquids, pills whole with liquid. Frequency/Duration: Date Range for Service Req: Timeline to reassess: PRN Sql Consultant Clinican/Clinical Fellow: No Supervisory Statement: I have reviewed and agree with the student/clinical fellow's documentation: N/A Speech Language Pathologist: Georgia Mendez M.A., [facility]-TELETYPESETTER OPERATOR
[2024-04-09 15:56] LABS: Glucose, Whole Blood 200 mg/dL (60-115)
[2024-04-09 20:33] LABS: Glucose, Whole Blood 373 mg/dL (60-115)
[2024-04-09] MEDS: Desmopressin Acetate 0.2 MG TABLET 0.1 MG PO (21:12)
[2024-04-09] MEDS: Tamsulosin HCL 0.4 MG CAPSULE PO (21:12)
[2024-04-09] MEDS: Atorvastatin Calcium 40 MG TABLET PO (21:12)
[2024-04-09] MEDS: fluPHENAZine HCl 1 MG TABLET PO (21:13)
[2024-04-09] MEDS: Insulin Glargine,Hum.rec.anlog 100 UNIT/ML 10 ML VIAL 26 UNIT SUBCUT (21:14)
[2024-04-09] MEDS: cloZAPine 25 MG TABLET 75 MG PO (22:46)
[2024-04-09] MEDS: Melatonin 3 MG TABLET 6 MG PO (22:46)
[2024-04-09 23:12] LABS: Glucose, Whole Blood 295 mg/dL (60-115)
--- NOTE | 2024-04-09 23:44 | PC.NURSE ---
POC at bedtime= 373, Dr. Bhandari was notified, MD instructed to follow sliding scale for Lispro and recheck POC 2 h rs after, LIspro 18 units given, snacks given and tolerated, repeat POC at [phone], Dr. Bhandari was updated, Report given to MAURA Rich.
[2024-04-10 03:44] VITALS: BP 132/63; PULSE 65; RESP 18; TEMP 36.3; O2SAT 95
[2024-04-10] MEDS: Levothyroxine Sodium 150 MCG TABLET PO (05:13)
[2024-04-10] MEDS: Nicotine Polacrilex Lozenge 2 MG LOZENGE BUCCAL ×2 (05:14→12:18)
[2024-04-10 06:23] LABS: MANUAL DIFF FLAG NO
[2024-04-10 06:30] LABS: Basophils Percent Auto 0.3 % (0-2); Eosinophils Absolute Auto 0.1 X10*3/uL (0.0-0.4); Eosinophils Percent Auto 0.4 % (0-4); Hematocrit 31.3 % (42.0-52.0); Imm Gran Abs Auto 0.08 X10*3/uL (0.00-0.03); Imm Gran Pct Auto 0.6 % (0.0-0.4); Lymphocytes Absolute Auto 3.9 X10*3/uL (1.2-4.9); Lymphocytes Percent Auto 26.8 % (20-40); Mean Corpuscular HGB Conc 28.8 g/dl (31.0-36.0); Mean Corpuscular Hemoglobin 22.8 pg (27.0-33.0); Mean Corpuscular Volume 79.4 fL (80.0-98.0); Mean Platelet Volume 9.6 fL (9.4-12.4); Monocytes Absolute Auto 0.8 X10*3/uL (0.1-1.2); Monocytes Percent Auto 5.2 % (2-11); Neutrophils Absolute Auto 9.7 x10*3/uL (2.0-8.3); Neutrophils Percent Auto 66.7 % (45-73); Platelet Count 353 X10*3/uL (160-400); Red Blood Count 3.94 X10*6/uL (4.60-5.80); Red Cell Distribution Width 15.7 % (11.0-16.0); White Blood Count 14.5 X10*3/uL (4.8-10.8)
[2024-04-10 06:40] LABS: Anion Gap 11 (12-20); Blood Urea Nitrogen 15 mg/dL (9-16); Calcium 9.2 mg/dL (8.4-10.2); Carbon Dioxide 31 mmol/L (22-29); Chloride 102 mmol/L (96-108); Creatinine Clr Calc Pharmacy 129.9; Estimated Glomerular Filt Rate > 60; Glucose Random 148 mg/dL (60-115); Sodium 140 mmol/L (135-145)
[2024-04-10 07:28] VITALS: BP 124/61; PULSE 71; RESP 17; TEMP 36.1; O2SAT 95
[2024-04-10] MEDS: Sennosides/Docusate Sodium TABLET 2 TAB PO (07:45)
[2024-04-10] MEDS: Enoxaparin Sodium 40 MG/0.4 ML SYRINGE SUBCUT (07:45)
[2024-04-10 07:46] VITALS: BP 124/61; PULSE 71
[2024-04-10] MEDS: Lithium Carbonate ER 450 MG TABLET.ER PO (07:46)
[2024-04-10] MEDS: predniSONE 20 MG TABLET 30 MG PO (07:46)
[2024-04-10] MEDS: atenoloL 25 MG TABLET PO (07:46)
[2024-04-10] MEDS: Loratadine 10 MG TABLET PO (07:47)
[2024-04-10] MEDS: Ferrous Sulfate 324 MG TABLET.DR PO (07:47)
[2024-04-10] MEDS: Insulin Lispro 100 UNIT/ML 3 ML VIAL SUBCUT ×2 (07:47→11:25)
[2024-04-10] MEDS: Lidocaine 4 % Patch ADH..PATCH 1 PATCH TRANSDERMA (07:47)
[2024-04-10] MEDS: 0.9 % Sodium Chloride Flush 3 ML SYRINGE IVFLUSH (07:47)
[2024-04-10] MEDS: Nicotine 21 MG PATCH.TD24 TRANSDERMA (07:47)
[2024-04-10] MEDS: Gabapentin 600 MG TABLET PO (07:47)
[2024-04-10 07:57] LABS: Glucose, Whole Blood 139 mg/dL (60-115)
[2024-04-10] MEDS: Albuterol/Iprat 2.5/0.5MG 3 ML AMPUL.NEB INHALE ×2 (08:12→11:39)
[2024-04-10 08:16] VITALS: PULSE 74; RESP 20; O2SAT 90
[2024-04-10] MEDS: Fluticasone/Umeclidinium/Vilanterol 100/62.5/25 BLST.W.DEV 1 PUFF INHALE (08:16)
--- NOTE | 2024-04-10 08:32 | P.DS_ITS ---
DS: Providers Provider Date of Service: 04/10/24 Date of admission: 04/04/24 05:20 Primary care physician: Ginger Valero MD Consults: 04/04/24 11:39 Consult to Wound Care Routine Reason for consultation: non healing ulcer great toe 04/06/24 15:45 Consult to Wound Care Routine Reason for consultation: diabetic foot ulcer DS: Diagnosis Discharge Diagnosis (1) Acute hypoxemic respiratory failure: Status: Acute DS: Summary Hospital Course Hospital Course: HPI: This is a 58-year-old male with pertinent history of schizophrenia, insulin-dependent diabetes mellitus, hypothyroidism, asthma/COPD overlap syndrome, mixed hyperlipidemia, BPH, traumatic brain injury was sent to the emergency department for evaluation of altered mentation. Patient was found confused at outside facility and sent to the ER. As per EMS, patient was satting 84% on room air. Unable to obtain history from the patient. History obtained from ER provider and chart review. Patient awakens to voice and is onl y oriented to self at the time of my evaluation. Unable to obtain review of systems. In the emergency department patient was found to be septic and requiring supplemental oxygen. Also noted to have bilateral lung infiltrates with leukocytosis. Hospital course: Patient was admitted with supplemental oxygen. Bilateral pneumonia likely due to aspiration. Patient completed antibiotic course of Unasyn throughout hospital course. Oxygen was weaned throughout hospitalization and patient is stable to be discharged on 1 L supplemental oxygen to [facility]. Aspiration pneumonia contributed to exacerbation of asthma/COPD and patient was initiated on systemic steroids. Patient will be discharged with prednisone taper. Acute encephalopathy due to pneumonia resolved with IV antibiotics. Patient was seen by speech who recommended chopped/advanced (NDD 3) with thin liquids. Wound care consulted for nonhealing ulcer great toe: Cleanse with Betadine allow to dry. Cover with dry gauze secure with tape. Change daily. Patient to follow up with [facility] [place] [place] [facility] as outpatient. Has chronic leukocytosis due to steroid use. Status at Discharge Overall status at discharge: patient is progressing back to baseline Time Attestation Discharge Coordination Time (in mins): 40 minutes Quality: Safe Use of Opioids Does Pt have an Active Cancer Diagnosis on the Problem List?: No Quality: Stroke Does the patient have a stroke diagnosis?: No Physical Exam Vital Signs: Vital Signs: Last Vital Signs Temp 97.0 F 04/10/24 07:28 Pulse 74 04/10/24 08:16 Resp 20 04/10/24 08:16 BP 124/61 04/10/24 07:46 Pulse Ox 95 04/10/24 07:28 O2 Del Method Nasal Cannula 04/10/24 07:28 O2 Flow Rate 1.0 04/10/24 07:28 Oxygen Flow Rate 4 04/04/24 00:09 BMI result Body Mass Index 24.0 Gen: in no acute distress HEENT: sclera anicteric, moist mucus membranes Neck: supple Lungs: diminished breath sounds Heart: regular rate and rhythm, no murmurs Abd: soft, non-tender, non-distended Ext: no edema Skin: warm/well-perfused, R great toe pad with dry ulcer Neuro: alert and oriented x3, no focal findings Psych: appropriate affect DS: Data Data Completed and Pending Completed studies during hospitalization [Text1]: Procedures Excision of Right Foot Subcutaneous Tissue and Fascia, Open Approach (02/15/24) Excision of Small Intestine, Open Approach (02/15/24) Introduction of Anesthetic Agent into Peripheral Nerves and Plexi, Percutaneous Approach (02/15/24) Labs on day of discharge: Laboratory Results - last 24 hr 04/09/24 04/09/24 04/09/24 11:31 15:47 20:24 WBC RBC Hgb Hct MCV MCH MCHC RDW Plt Count MPV Immature Gran % (Auto) Neut % (Auto) Lymph % (Auto) [place] % (Auto) Eos % (Auto) Baso % (Auto) Lymph # (Auto) [place] # (Auto) Eos # (Auto) Baso # (Auto) Abs Immat Gran (auto) Absolute Neuts (auto) Absolute Nucleated RBC Nucleated RBC % (auto) Sodium Potassium Chloride Carbon Dioxide Anion Gap BUN Creatinine Estim Creat Clear Calc Estimated GFR POC Glucose 220 H 200 H 373 H* Random Glucose Calcium 04/09/24 04/10/24 04/10/24 23:09 05:42 07:34 WBC 14.5 H RBC 3.94 L Hgb 9.0 L Hct 31.3 L MCV 79.4 L MCH 22.8 L MCHC 28.8 L RDW 15.7 Plt Count 353 MPV 9.6 Immature Gran % (Auto) 0.6 H Neut % (Auto) 66.7 Lymph % (Auto) 26.8 [place] % (Auto) 5.2 Eos % (Auto) 0.4 Baso % (Auto) 0.3 Lymph # (Auto) 3.9 [place] # (Auto) 0.8 Eos # (Auto) 0.1 Baso # (Auto) 0.0 Abs Immat Gran (auto) 0.08 H Absolute Neuts (auto) 9.7 H Absolute Nucleated RBC 0.000 Nucleated RBC % (auto) 0.0 Sodium 140 Potassium 4.0 Chloride 102 Carbon Dioxide 31 H Anion Gap 11 L BUN 15 Creatinine 0.70 Estim Creat Clear Calc 129.9 Estimated GFR > 60 POC Glucose 295 H 139 H Random Glucose 148 H Calcium 9.2 Imaging Chest x-ray: Radiologist's impression: ITS Impressions Cervical Spine CT 04/04/24 01:30 IMPRESSION: Motion degraded examination. Within this limitation: 1. No acute intracranial abnormality. 2. No cervical spine fracture or traumatic malalignment. Chest X-Ray 04/04/24 01:30 IMPRESSION: 1. Diffuse left-sided infiltrative change and suggestion of patchy right mid to lower lung field infiltrative change. Suspect pneumonia. 2. Left mid lung field apparent pleural thickening is again seen. Head CT 04/04/24 01:30 IMPRESSION: Motion degraded examination. Within this limitation: 1. No acute intracranial abnormality. 2. No cervical spine fracture or traumatic malalignment. KUB X-Ray 04/04/24 03:20 IMPRESSION: 1. Nonobstructive bowel gas pattern. 2. Retained stool throughout the colon. Discharge Plan Discharge Anticipated Discharge Date/Time: 04/10/24 11:00 Patient Disposition: [facility] Discharge Diagnosis: Acute hypoxia respiratory failure to pneumonia, likely aspiration Referrals: Ginger Fulton MD [Primary Care Provider] - 1 Week Discharge Medications: New prednisone 20 mg Tablet 40 mg PO DAILY Qty: 10 0RF Taper: Prednisone 40 mg daily for 2 Days and 0 Hour 30 mg daily for 2 Days and 0 Hour 20 mg daily for 2 Days and 0 Hour 10 mg daily for 2 Days and 0 Hour Rx Instructions: as above Continued insulin lispro [Humalog U-100 Insulin] 100 unit/mL solution See Protocol subcut TIDAC Protocol: Insulin Correction Scale Less than or equal to 110 ---- Give (units): 0 111 to 150 Give (units): 0 151 to 200 Give (units): 2 201 to 250 Give (units): 6 251 to 300 Give (units): 8 301 to 350 Give (units): 10 Greater than 350 Give (units): 12 Call MD if Blood Glucose > : 350 albuterol sulfate [Ventolin HFA] 90 mcg/actuation Hfa Aerosol Inhaler 2 puff inhalation RQ4H PRN (Reason: Shortness Of Breath) 30 Days Qty: 1 0RF nicotine (polacrilex) 2 mg Lozenge 2 mg buccal Q2H PRN (Reason: Nicotine Cravings) 30 Days Qty: 108 0RF polyethylene glycol 3350 17 gram Powder In Packet 17 g PO DAILY 30 Days Qty: 30 0RF clozapine 100 mg Tablet 200 mg PO BEDTIME 30 Days Qty: 60 0RF clonazepam 0.5 mg Tablet 0.5 mg PO BID PRN (Reason: anxiety, moderate) 30 Days Qty: 60 0RF sennosides-docusate sodium [Senna Plus] 8.6-50 mg Tablet 2 tab PO BID 30 Days Qty: 120 0RF desmopressin 0.2 mg Tablet 0.1 mg PO BEDTIME 30 Days Qty: 15 0RF tamsulosin 0.4 mg Capsule 0.4 mg PO BEDTIME 30 Days Qty: 30 0RF glipizide 2.5 mg Tablet Extended Release 24hr 2.5 mg PO DAILY 30 Days Qty: 30 0RF clozapine 25 mg Tablet 75 mg PO BEDTIME 30 Days Qty: 90 0RF Trelegy Ellipta 100-62.5-25 mcg Blister With Device 1 inh inhalation RDAILY 30 Days Qty: 60 0RF lidocaine [Lidocaine Pain Relief] 4 % Adhesive Patch,Medicated 1 patch transdermal DAILY 30 Days Qty: 30 0RF Protocol: Apply to: Apply to: left shoulder area docusate sodium 100 mg Capsule 100 mg PO BID PRN (Reason: constipation) 30 Days Qty: 60 0RF atorvastatin 40 mg tablet 40 mg PO BEDTIME 30 Days Qty: 30 0RF gabapentin 600 mg tablet 1 tab PO TID 30 Days Qty: 90 0RF lithium carbonate 450 mg tablet extended release 450 mg PO BID 30 Days Qty: 60 0RF fluphenazine HCl 1 mg tablet 1 mg PO BEDTIME 30 Days Qty: 30 0RF metformin 1,000 mg tablet 1 tab PO BIDWM 30 Days Qty: 60 0RF levothyroxine 150 mcg tablet 1 tab PO DAILY@0600 30 Days Qty: 30 0RF fluticasone propionate [Flonase Allergy Relief] 50 mcg/actuation [place],Suspension 1 spray INTRANASAL DAILY 30 Days Qty: 1 0RF Rx Instructions: administer into each nostril atenolol 50 mg tablet 25 mg PO DAILY 30 Days Qty: 15 0RF loratadine 10 mg Tablet 10 mg PO DAILY 30 Days Qty: 30 0RF insulin glargine 100 unit/mL Solution 15 unit SUBCUT BEDTIME Discharge Orders: Discharge Order (Routine); Ordered 04/10/24 Ordered By: Aileen Paulino Diet: Chopped/advanced (NDD 3) Activity on Discharge: As tolerated Stand Alone Forms: Patient Portal Discharge page Print Language: Latvian Care Plan Goals: Follow-up with PCP within 1 week Follow-up with [facility] [place] [place] [facility] Concerns: Hypoxia due to aspiration pneumonia and asthma/COPD Nonhealing ulcer grade toe Plan of Treatment: Prednisone taper Assessment: As above
[2024-04-10] MEDS: Fluticasone Propionate Nasal 16 GM SPRAY 1 SPRAY NOSTRIL-B (09:42)
--- NOTE | 2024-04-10 09:42 | MHC.CM.PN ---
PT MEDICALLY CLEARED FOR DC TO [facility] FOR STR VIA BLS TRANSPORT, CM CONTACTED PT'S [facility] [employer] [facility] AND SHE WILL MEET PT AT FACILITY W/BELONGINGS AND SMOKES.
[2024-04-10] MEDS: polyethylene glycoL 3350 17 GM POWD.PACK PO (09:43)
[2024-04-10 11:35] LABS: Glucose, Whole Blood 249 mg/dL (60-115)
[2024-04-10 11:41] VITALS: PULSE 65; RESP 20; O2SAT 91
== END 2024-04-10 12:23 | disposition skilled nursing facility (03) | DRG 871 ==
LOC: HO.ED 04-04 02:18 → HO.EDOVER 04-04 05:24 → HO.S3 04-06 13:01
PROVIDERS: Family Medicine; Physician Assistant; Admitting Provider Student in an Organized Health Care Education/Training Program; Emergency Provider Internal Medicine; PCP Internal Medicine; Visit Provider Student in an Organized Health Care Education/Training Program
DX: A41.9 Sepsis, unspecified organism (principal); G93.41 Metabolic encephalopathy; J69.0 Pneumonitis due to inhalation of food and vomit; J96.01 Acute respiratory failure with hypoxia; J44.1 Chronic obstructive pulmonary disease with (acute) exacerbation; E87.21 Acute metabolic acidosis; D50.9 Iron deficiency anemia, unspecified; N40.0 Benign prostatic hyperplasia without lower urinary tract symptoms; F20.9 Schizophrenia, unspecified; E78.2 Mixed hyperlipidemia; E11.621 Type 2 diabetes mellitus with foot ulcer; L97.519 Non-pressure chronic ulcer of other part of right foot with unspecified severity; E11.65 Type 2 diabetes mellitus with hyperglycemia; E03.9 Hypothyroidism, unspecified; F17.210 Nicotine dependence, cigarettes, uncomplicated; Z20.822 Contact with and (suspected) exposure to COVID-19; Z71.6 Tobacco abuse counseling; Z79.4 Long term (current) use of insulin; Z79.51 Long term (current) use of inhaled steroids; Z79.84 Long term (current) use of oral hypoglycemic drugs; Z87.820 Personal history of traumatic brain injury; Z79.899 Other long term (current) drug therapy
CPT/HCPCS: 0241U; 36415; 70450; 71045; 72125; 74018; 80048; 80178; 80307; 81003; 82607; 82728; 82746; 82803; 82947; 83540; 83605; 83615; 83880; 84145; 84484; 85025; 85027; 85045; 86850; 86900; 86901; 87040; 87449; 87633; 87899; 92526; 92610; 93005; 94640; 97162; 97530; 99285; J0295; J0696; J1650; J2919

== ENCOUNTER → 2024-04-04 00:14 | Outpatient (BNV) | payer MEDICARE, MEDICAID, SELFPAY | PROVIDERS: Admitting Provider Student in an Organized Health Care Education/Training Program; Emergency Provider Internal Medicine; Visit Provider Internal Medicine Cardiovascular Disease | DX: R41.82 Altered mental status, unspecified (principal) | CPT/HCPCS: 93010 ==

== ENCOUNTER → 2024-04-04 05:20 | Outpatient (BNV) | payer MEDICARE, MEDICAID, SELFPAY | PROVIDERS: Admitting Provider Student in an Organized Health Care Education/Training Program; Emergency Provider Internal Medicine; Visit Provider Student in an Organized Health Care Education/Training Program | DX: J96.01 Acute respiratory failure with hypoxia (principal) | CPT/HCPCS: 99223; 99232; 99239; 99499 ==

== ENCOUNTER 2024-08-06 12:26 | Emergency (ER) | payer MEDICARE, MEDICAID, SELFPAY ==
--- NOTE | ~2024-08-06 | CT_ITS ---
EXAMINATION: CT ANGIOGRAM NECK WITH CONTRAST CT ANGIOGRAM BRAIN WITH CONTRAST CLINICAL INFORMATION: Aphasia. COMPARISON: Head CT August 06, 2024. TECHNIQUE: Test bolus sequences followed by intravenous administration 70 mL of Omnipaque 350. Helical imaging was performed in the axial plane from the thoracic inlet to the skull vertex. Delayed postcontrast imaging of the head was also performed. The data was processed at the surgical technologist workstation for generation of MIP sequences. Angled MIPs and volume rendered reformatted images were also generated at an offline 3D workstation under concurrent supervision. Stenoses are assessed in accordance with NASCET criteria unless otherwise indicated. This CT examination was performed using dose optimization techniques as appropriate, variously including the following: *Automated exposure control *Adjustment of mA and/or kV according to patient size (this includes techniques or standardized protocols for targeted exams where dose is matched to indication/reason for exam; i.e. extremities or head) *Use of iterative reconstruction technique FINDINGS: BRAIN: [There is no intracranial hemorrhage, hydrocephalus, extra-axial surface collection, midline shift, or other herniation pattern. Corea to white matter differentiation is diffusely maintained without evidence of an evolved acute territorial infarct. The basilar cisterns are preserved. No significant soft tissue abnormality. No acute osseous abnormality. The paranasal sinuses and the mastoid air cells are well aerated.] CERVICAL SOFT TISSUES AND LUNG APICES: Imaged upper lungs are clear. There is multilevel cervical spondylosis. No significant soft tissue findings within the neck. NECK CTA: [Motion degraded CTA of the neck. There is a classic 3 vessel configuration of the aortic arch. Proximal arch vessels are non-stenotic. The vertebral arteries are codominant. No significant ostial stenosis is visualized on either side. Both vertebral arteries are widely patent throughout their extracranial cervical course. There is atherosclerotic calcification involving the carotid bifurcations bilaterally without significant stenosis involving the proximal internal carotid arteries on either side. BRAIN CTA: [There is normal opacification of major intracranial arteries. No focal flow-limiting stenosis nor discrete proximal large artery occlusion. No aneurysm. Timing of the contrast bolus allows assessment of the major dural venous sinuses, which all opacify normally] CT/CT angio head neck stroke IMPRESSION: * No acute intracranial findings. No acute territorial infarcts and no intracranial hemorrhage. * No acute arterial occlusions and no significant arterial stenoses within the head or neck. Findings discussed with Dr. Hobbs at 1:40 PM on August 06, 2024. Electronically signed by: Daquan West MD 08/06/2024 01:42 PM EDT
--- NOTE | ~2024-08-06 | XR_ITS ---
EXAMINATION: XR CHEST CLINICAL INFORMATION: Stroke protocol. Chest pain. COMPARISON: Chest radiograph dated April 04, 2024. TECHNIQUE: Frontal view of the chest was obtained. FINDINGS: The heart is normal in size. There is improved aeration throughout the left lung when compared with examination dated April 04, 2024. There continues to the mild interstitial prominence with patchy left mid and lower lung opacities. There is an opacity at the right lung base. There is blunting of the left costophrenic angle. A small left pleural effusion is suspected. There may also be a small right pleural effusion. No pneumothorax. No acute osseous abnormality. XR/XR chest 1V IMPRESSION: There continues to be mild interstitial prominence with patchy left mid and lower lung opacities. There is an opacity at the right lung base. Infectious inflammatory etiologies should be considered. There are small pleural effusions. Electronically signed by: Armando Martinez DO 08/06/2024 02:57 PM EDT
--- NOTE | ~2024-08-06 | CT_ITS ---
EXAMINATION: CT HEAD WITHOUT IV CONTRAST STROKE CLINICAL INFORMATION: Stroke Protocol COMPARISON: CT head without contrast 04/04/2024 TECHNIQUE: Contiguous axial imaging was performed from the skull base to vertex without intravenous contrast. Sagittal and coronal reformatted images were obtained. This CT examination was performed using dose optimization techniques as appropriate, variously including the following: * Automated exposure control * Adjustment of mA and/or kV according to patient size (this includes techniques or standardized protocols for targeted exams where dose is matched to indication/reason for exam; i.e. extremities or head) Use of iterative reconstruction technique DLP: 821 mGy-cm FINDINGS: No acute osseous or soft tissue abnormality. The mastoids are clear. Mild scattered paranasal sinus mucosal thickening. There is no evidence of acute intracranial hemorrhage or territorial infarction. No abnormal mass effect or midline shift is seen. Corea to white matter differentiation is well preserved. No extra-axial fluid collections are identified. No hydrocephalus. No significant volume loss. Patchy periventricular and deep white matter hypoattenuation is consistent with mild small vessel ischemic changes. CT/CT head for stroke IMPRESSION: No acute intracranial abnormality including hemorrhage, mass effect, hydrocephalus, or acute territorial edematous infarction. Electronically signed by: Go Montesinos MD 08/06/2024 01:13 PM EDT
--- NOTE | 2024-08-06 12:39 | ECG_ITS ---
Test Reason : STROKE PROTOCOL Blood Pressure : / mmHG Vent. Rate : 093 BPM Atrial Rate : 093 BPM P-R Int : 172 ms QRS Dur : 086 ms QT Int : 356 ms P-R-T Axes : 069 -05 072 degrees QTc Int : 442 ms Normal sinus rhythm Normal ECG When compared with ECG of 04-APR-2024 00:11, No significant change was found Referred By: Ayan Hobbs Electronically Signed By:JAKOB RUSH
--- NOTE | 2024-08-06 12:40 | ED_ITS ---
HPI - Neuro Symptoms/Deficit General Chief Complaint: Neuro Symptoms/Deficit Stated Complaint: ?STROKE,EPISODE DROOLING/UNABLE TO SPEAK, GRP VARSHA Time Seen by Provider: 08/06/24 12:33 Source: patient Mode of arrival: ambulatory Limitations: no limitations History of Present Illness HPI Narrative: 59 year old male halfway residentPMH: schizophrenia , insulin dependent type 2 diabetes hypothyroidism asthma/COPD overlap, TBI, hyperlipidemiapresents emergency department via EMS after having an unresponsive and drooling episode while he was talking to somebody on the phone patient has had some speech problems for the halfway as well. Patient was seen by [facility] and [place] and found to have a normal neuro exam patient initially refused to come in but was eventually convinced to come in and be seen. Patient does have a normal speech at baseline there was nobody here with him to know if this is his baseline speech. Patient has no deficits on arrival was sent short of her CT patient continues to state that he woke up and felt sleepy but with this unresponsive episode as well as speech changes from EMS I do think the patient's stroke candidate he was unable to tell me or confirm the danger of having a stroke. He states he did take his morning medications which do make him sleeping he thinks that is all that is going on. Once the patient had a cigarette he was agreeable to coming in. Related Data Home Medications ?Medication ?Instructions ?Recorded ?Confirmed insulin lispro 100 unit/mL See Protocol subcut TIDAC 03/02/24 04/04/24 subcutaneous solution (Humalog U-100 Insulin) insulin glargine 100 unit/mL 15 unit subcut BEDTIME 04/04/24 04/04/24 subcutaneous solution Previous Rx's ?Medication ?Instructions ?Recorded albuterol sulfate 90 mcg/actuation 2 puff inhalation RQ4H PRN 03/19/24 aerosol inhaler (Ventolin HFA) Shortness Of Breath 30 days #1 inhaler atenolol 50 mg tablet 25 mg (1/2 x 50 mg) PO DAILY 30 03/19/24 days #15 tabs atorvastatin 40 mg tablet 40 mg PO BEDTIME 30 days #30 tabs 03/19/24 clonazepam 0.5 mg tablet 0.5 mg PO BID PRN anxiety, 03/19/24 moderate 30 days #60 tabs clozapine 100 mg tablet 200 mg (2 x 100 mg) PO BEDTIME 30 03/19/24 days #60 tabs clozapine 25 mg tablet 75 mg (3 x 25 mg) PO BEDTIME 30 03/19/24 days #90 tabs desmopressin 0.2 mg tablet 0.1 mg (1/2 x 0.2 mg) PO BEDTIME 03/19/24 30 days #15 tabs docusate sodium 100 mg capsule 100 mg PO BID PRN constipation 30 03/19/24 days #60 caps fluphenazine HCl 1 mg tablet 1 mg PO BEDTIME 30 days #30 tabs 03/19/24 fluticasone fur. 100 mcg-umeclid 1 inh inhalation RDAILY 30 days 03/19/24 62.5 mcg-vilant 25 mcg #60 ea inhalat.powder (Trelegy Ellipta) fluticasone propionate 50 1 spray intranasal DAILY 30 days 03/19/24 mcg/actuation nasal #1 inhaler spray,suspension (Flonase Allergy Relief) gabapentin 600 mg tablet 1 tab PO TID 30 days #90 tabs 03/19/24 glipizide 2.5 mg tablet, extended 2.5 mg PO DAILY 30 days #30 tabs 03/19/24 release 24 hr levothyroxine 150 mcg tablet 1 tab PO DAILY@0600 30 days #30 03/19/24 tabs lidocaine 4 % topical patch 1 patch transdermal DAILY 30 days 03/19/24 (Lidocaine Pain Relief) #30 ea lithium carbonate 450 mg 450 mg PO BID 30 days #60 tabs 03/19/24 tablet,extended release loratadine 10 mg tablet 10 mg PO DAILY 30 days #30 tabs 03/19/24 metformin 1,000 mg tablet 1 tab PO BIDWM 30 days #60 tabs 03/19/24 nicotine (polacrilex) 2 mg buccal 2 mg buccal Q2H PRN Nicotine 03/19/24 lozenge Cravings 30 days #108 ea polyethylene glycol 3350 17 gram 17 g PO DAILY 30 days #30 packets 03/19/24 oral powder packet sennosides 8.6 mg-docusate sodium 2 tab PO BID 30 days #120 tabs 03/19/24 50 mg tablet (Senna Plus) tamsulosin 0.4 mg capsule 0.4 mg PO BEDTIME 30 days #30 caps 03/19/24 prednisone 20 mg tablet 40 mg PO DAILY #10 tabs 04/10/24 Allergies Allergy/AdvReac Type Severity Reaction Status Date / Time amoxicillin [AMOXICILLIN] Allergy Intermediate SKIN RASH Verified 08/06/24 13:01 egg [EGGS] Allergy Intermediate HIVES, Verified 08/06/24 13:01 VOMITING Penicillins [PENICILLINS] Allergy Intermediate SKIN RASH Verified 08/06/24 13:01 Sulfa (Sulfonamide Allergy Intermediate SKIN RASH Verified 08/06/24 13:01 Antibiotics) [SULFA (SULFONAMIDE ANTIBIOTICS)] trimethoprim [TRIMETHOPRIM] Allergy Intermediate SKIN RASH Verified 08/06/24 13:01 penicillin V Allergy Unknown Unknown Verified 08/06/24 13:01 haloperidol [From Haldol] Allergy Unknown Verified 08/06/24 13:01 methylprednisolone Allergy Unknown Verified 08/06/24 13:01 [From Solu-Medrol] penicillin Allergy Unknown Unknown Uncoded 04/04/24 00:13 sultamicillin Allergy Unknown Unknown Uncoded 04/04/24 00:13 trimethoprim Allergy Unknown Unknown Uncoded 04/04/24 00:13 Review of Systems 2 Review of Systems: Review of systems: General: Patient denies any fever chills recent illness or falls Musculoskeletal: Denies back pain or body aches or other injuries HEENT: denies headache, runny nose, ear pain Respiratory: denies shortness of breath, cough Cardiovascular: no chest pain or palpitations : denies dysuria, frequency Abdomen: no nausea vomiting denies abdominal pain Extremities: no swelling, no pain Skin: no diaphoresis Yes all other systems are reviewed and are negative PMFSH Past Medical History Medical History Encounter for staple removal Routine medical exam Hypothyroidism Diabetes mellitus type 2 in nonobese Hyperlipidemia Personal history of nicotine dependence Rash Loculated pleural effusion (~10/2020) Asbestos-induced pleural plaque Traumatic brain injury Schizophrenia HTN (hypertension) COPD (chronic obstructive pulmonary disease) Asthma Surgical History Status post small bowel resection Social History Social History Household Members: Caregiver Household Members Other:: lives in halfway Housing: Other Housing Other:: halfway Do you presently have visiting nurse or other home services: No Alcohol intake: never Comment: Not wearing non-skid socks provided. Encouraged compliance with this. Patient Tobacco Use Status: Current everyday Tobacco user Tobacco use type: Cigarette and Cigar Cigarette Packs Per Day: 1 Cigarettes Per Day: 20.0 Years Smoked: 40 Smoked in Last 30 Days: Yes e-Cigarette/Vaping Use: Currently Using Second Hand Smoke Exposure: Yes Use of substances other than those prescribed or required for medical reasons: No Substance Use Type: Marijuana Advance Directives: No Advance Directives Information Provided: Yes service: No Current occupational status: disabled Sexual orientation: Unable to collect Physical Exam 2 Vital Signs: Vital Signs: Last Vital Signs Temp 98.4 F 08/06/24 13:16 Pulse 91 08/06/24 13:16 Resp 20 08/06/24 13:16 BP 126/68 08/06/24 13:16 Pulse Ox 98 08/06/24 13:16 O2 Del Method Room Air 08/06/24 13:16 BMI result Body Mass Index 22.7 Neurological exam: CN II- XII tested. Patient is alert and oriented to person place and time. Patient has no dysphagia or dysarthia, denies good vision in all four vision garcia no nystagmus on exam, good strength to upper and lower extremities with normal reflexes to brachioradialis, wrist, patella and achilles. Negative romberg, good finger to nose and heel to goldstein. General: Well-appearing well-nourished in no signs of distress HEENT: Normocephalic atraumatic Neck: No signs of JVD, no masses no tenderness or lymphadenopathy Cardiovascular: Regular rate and rhythm Respiratory: Clear to auscultation bilaterally Abdomen: Soft nontender no masses Extremities: Normal pedal pulses no signs of edema Skin: Dry warm no rashes Back: No tenderness full ROM Course Course Course Narrative: 1330 I spoke to the radiologist x 2 CT non contrast is negative. CTA head and neck are both negative for ELVO or occlusion signs of stroke. Patient updated pending labs. Reevaluation(s) Reevaluation #1: Patient here a somnolent but arousable normal neuro exam the entire time labs are okay had a normal exam for EMS while I do think the patient just falling asleep I do not think there was any indication for the patient to be admitted I do feel comfortable discharging him home Medications Administered Discontinued Medications Generic Name Dose Route Start Last Admin Trade Name Trent PRN Reason Stop Dose Admin Sodium Chloride 1,000 mls @ 999 mls/hr 08/06/24 12:45 08/06/24 13:19 Ns IV 08/06/24 13:45 999 mls/hr .Q1H1M CAROLINE Administration Iohexol 70 ml 08/06/24 13:06 08/06/24 13:06 Iohexol 350 Mg/Ml 75 Ml Infus..Btl IV 08/06/24 13:07 70 ml ONCE ONE Administration Medical Decision Making Medical Decision Making MDM Narrative: I will give the patient over for CTA I will check labs give the patient fluids and reassess Differential Diagnosis Differential Diagnoses: The differential diagnosis associated with the presentation includes Unresponsive episode syncope seizure weakness stroke TIA electrolyte abnormality medication effect Admission/Observation Consideration of admission/observation: Escalation of care including admission/observation considered Consult Healthcare Provider Management of the patient was discussed with: Hospitalist Lab Data MDM Lab Attestation statement: I reviewed the patient's lab results. 08/06/24 14:34 08/06/24 14:34 Labs: Lab Results 08/06/24 08/06/24 Range/Units 12:40 14:34 WBC 7.0 (4.8-10.8) X10*3/uL RBC 5.03 D (4.60-5.80) X10*6/uL Hgb 10.2 L (14.0-18.0) g/dl Hct 37.4 L (42.0-52.0) % MCV 74.4 L (80.0-98.0) fL MCH 20.3 L (27.0-33.0) pg MCHC 27.3 L (31.0-36.0) g/dl RDW 18.3 H (11.0-16.0) % Plt Count 328 (160-400) X10*3/uL MPV 8.6 L (9.4-12.4) fL Immature Gran % (Auto) 0.3 (0.0-0.4) % Neut % (Auto) 73.1 H (45-73) % Lymph % (Auto) 19.3 L (20-40) % [place] % (Auto) 6.6 (2-11) % Eos % (Auto) 0.1 (0-4) % Baso % (Auto) 0.6 (0-2) % Lymph # (Auto) 1.3 (1.2-4.9) X10*3/uL [place] # (Auto) 0.5 (0.1-1.2) X10*3/uL Eos # (Auto) 0.0 (0.0-0.4) X10*3/uL Baso # (Auto) 0.0 (0.0-0.2) X10*3/uL Abs Immat Gran (auto) 0.02 (0.00-0.03) X10*3/uL Absolute Neuts (auto) 5.1 (2.0-8.3) x10*3/uL Absolute Nucleated RBC 0.000 (0.0-0.012) X10*3/uL Nucleated RBC % (auto) 0.0 (0.0-0.2) /100WBC PT 12.1 (10.9-12.4) SEC INR 1.0 (0.9-1.1) APTT 37.9 H (26.0-36.8) SEC Sodium 142 (135-145) mmol/L Potassium 4.3 (3.3-5.1) mmol/L Chloride 110 H (96-108) mmol/L Carbon Dioxide 28 (22-29) mmol/L Anion Gap 8 L (12-20) BUN 6 L (9-16) mg/dL Creatinine 0.60 (0.5-1.4) mg/dL Estim Creat Clear Calc 142.5 Estimated GFR > 60 POC Glucose 91 (60-115) mg/dL Random Glucose 69 (60-115) mg/dL Calcium 9.4 (8.4-10.2) mg/dL Triglycerides 74 (<150) mg/dL Cholesterol 102 (<200) mg/dL LDL Cholesterol, Calc 57 (<100) mg/dL HDL Cholesterol 31 L (>40) mg/dL Independent Interpretation I performed an independent interpretation of an: EKG, Rhythm Strip, Plain X-Ray and CT Scan Radiology Impression Discussion of test interpretation with radiology: I discussed test interpretation with the radiologist and I have reviewed the radiologist's reading. Independent Historian Clinical information obtained from an independent historian. History obtained from or confirmed by: EMS External Record Review External record reviewed: Inpatient record, Office record, Outpatient record and Prior outpatient labs NIH Stroke Scale Internal: Initial- Upon Arrival Time: 12:43 Level of Consciousness: Alert Level of Consciousness Questions: Answers both questions correctly Level of Consciousness Commands: Performs both tasks correctly Best Gaze: Normal Visual: No visual loss Facial Palsy: Normal Motor Arm (Right): No drift Motor Arm (Left): No drift Motor Leg (Right): No drift Motor Leg (Left): No drift Limb Ataxia: Absent Sensory: Normal Best Language: Mild to moderate aphasia Dysarthia: Normal Extinction and Inattention: No abnormality Score: 1 Discharge Plan Discharge Clinical Impression: Acute alteration in mental status Patient Disposition: Home, Self-Care Instructions: Altered Mental Status (ED) Additional Instructions: You were seen today after having an episode where you were responsive. You had CT labs and an x-ray done which did not show anything remarkable. Please call follow up with her doctor. Prescriptions: No Action insulin lispro [Humalog U-100 Insulin] 100 unit/mL solution See Protocol subcut TIDAC Protocol: Insulin Correction Scale Less than or equal to 110 ---- Give (units): 0 111 to 150 Give (units): 0 151 to 200 Give (units): 2 201 to 250 Give (units): 6 251 to 300 Give (units): 8 301 to 350 Give (units): 10 Greater than 350 Give (units): 12 Call MD if Blood Glucose > : 350 albuterol sulfate [Ventolin HFA] 90 mcg/actuation Hfa Aerosol Inhaler 2 puff inhalation RQ4H PRN (Reason: Shortness Of Breath) 30 Days Qty: 1 0RF nicotine (polacrilex) 2 mg Lozenge 2 mg buccal Q2H PRN (Reason: Nicotine Cravings) 30 Days Qty: 108 0RF polyethylene glycol 3350 17 gram Powder In Packet 17 g PO DAILY 30 Days Qty: 30 0RF clozapine 100 mg Tablet 200 mg PO BEDTIME 30 Days Qty: 60 0RF clonazepam 0.5 mg Tablet 0.5 mg PO BID PRN (Reason: anxiety, moderate) 30 Days Qty: 60 0RF sennosides-docusate sodium [Senna Plus] 8.6-50 mg Tablet 2 tab PO BID 30 Days Qty: 120 0RF desmopressin 0.2 mg Tablet 0.1 mg PO BEDTIME 30 Days Qty: 15 0RF tamsulosin 0.4 mg Capsule 0.4 mg PO BEDTIME 30 Days Qty: 30 0RF glipizide 2.5 mg Tablet Extended Release 24hr 2.5 mg PO DAILY 30 Days Qty: 30 0RF clozapine 25 mg Tablet 75 mg PO BEDTIME 30 Days Qty: 90 0RF Trelegy Ellipta 100-62.5-25 mcg Blister With Device 1 inh inhalation RDAILY 30 Days Qty: 60 0RF lidocaine [Lidocaine Pain Relief] 4 % Adhesive Patch,Medicated 1 patch transdermal DAILY 30 Days Qty: 30 0RF Protocol: Apply to: Apply to: left shoulder area docusate sodium 100 mg Capsule 100 mg PO BID PRN (Reason: constipation) 30 Days Qty: 60 0RF atorvastatin 40 mg tablet 40 mg PO BEDTIME 30 Days Qty: 30 0RF gabapentin 600 mg tablet 1 tab PO TID 30 Days Qty: 90 0RF lithium carbonate 450 mg tablet extended release 450 mg PO BID 30 Days Qty: 60 0RF fluphenazine HCl 1 mg tablet 1 mg PO BEDTIME 30 Days Qty: 30 0RF metformin 1,000 mg tablet 1 tab PO BIDWM 30 Days Qty: 60 0RF levothyroxine 150 mcg tablet 1 tab PO DAILY@0600 30 Days Qty: 30 0RF fluticasone propionate [Flonase Allergy Relief] 50 mcg/actuation [place]der[place]ott,Suspension 1 spray INTRANASAL DAILY 30 Days Qty: 1 0RF Rx Instructions: administer into each nostril atenolol 50 mg tablet 25 mg PO DAILY 30 Days Qty: 15 0RF loratadine 10 mg Tablet 10 mg PO DAILY 30 Days Qty: 30 0RF insulin glargine 100 unit/mL Solution 15 unit SUBCUT BEDTIME prednisone 20 mg Tablet 40 mg PO DAILY Qty: 10 0RF Taper: Prednisone 40 mg daily for 2 Days and 0 Hour 30 mg daily for 2 Days and 0 Hour 20 mg daily for 2 Days and 0 Hour 10 mg daily for 2 Days and 0 Hour Rx Instructions: as above Print Language: Chilean
[2024-08-06 12:55] VITALS: BP 132/66; BP 139/87; PULSE 94; PULSE 95; RESP 20; TEMP 36.4; O2SAT 89; O2SAT 90; BMI 22.7
[2024-08-06 12:56] LABS: Glucose, Whole Blood 91 mg/dL (60-115)
[2024-08-06] MEDS: iohexoL 350 MG/ML 75 ML INFUS..BTL 70 ML IV (13:06)
[2024-08-06 13:16] VITALS: BP 126/68; PULSE 91; RESP 20; TEMP 36.9; O2SAT 98
[2024-08-06] MEDS: 0.9 % Sodium Chloride 1,000 ML 999 ML IV (13:19)
--- NOTE | 2024-08-06 13:46 | PC.NURSE ---
late charting due to patient care pateint arrives from snf after a witnessed episode of aphasia. patient reportedly had episode on phone while speaking with someone where he nodded off and fell asleep but was able to be awoken by verbal stimuli, sent in for further evaluation. upon arriving patient appears somnolent, but easliy arousable, states to this RN that he takes a lot of different medications and they make him very drowsy but he does not feel as if he is more drowsy than usual. patient is alert and oriented x3, 18g PIV placed in right forearm. MD immediately to bedside to evaluate patient, pt to CT scan immediately upon arrival. placed on oncology nurse navigator and tech currently at bedside to draw lab work. patient states he feels fine, offers no complaints to this RN, noted to have a cough, states that he always has that and its nothing new patient states he was supposed to have a doctors appointment today to go over his medications because he doesnt like how they make him so lethargic. remains on oncology nurse navigator at this time, and placed on 2L NC for comfort. plan of care remains ongoing.
--- NOTE | 2024-08-06 13:53 | MHC.EDTECH ---
PTINR performed late due to PTINR machine low battery which needed to be changed and then machine brought to lab to QC with Dr. Anjel Betancourt aware and still requested test which was then performed.
--- NOTE | 2024-08-06 14:41 | MHC.EDTECH ---
late labs due to pt being in ct scan and xrays, pt was a hard stick. had another tech draw labs and sent down to lab
[2024-08-06 14:42] LABS: MANUAL DIFF FLAG NO
[2024-08-06 14:44] LABS: Basophils Percent Auto 0.6 % (0-2); Eosinophils Percent Auto 0.1 % (0-4); Hematocrit 37.4 % (42.0-52.0); Hemoglobin 10.2 g/dl (14.0-18.0); Imm Gran Abs Auto 0.02 X10*3/uL (0.00-0.03); Imm Gran Pct Auto 0.3 % (0.0-0.4); Lymphocytes Absolute Auto 1.3 X10*3/uL (1.2-4.9); Lymphocytes Percent Auto 19.3 % (20-40); Mean Corpuscular HGB Conc 27.3 g/dl (31.0-36.0); Mean Corpuscular Hemoglobin 20.3 pg (27.0-33.0); Mean Corpuscular Volume 74.4 fL (80.0-98.0); Mean Platelet Volume 8.6 fL (9.4-12.4); Monocytes Absolute Auto 0.5 X10*3/uL (0.1-1.2); Monocytes Percent Auto 6.6 % (2-11); Neutrophils Absolute Auto 5.1 x10*3/uL (2.0-8.3); Neutrophils Percent Auto 73.1 % (45-73); Platelet Count 328 X10*3/uL (160-400); Red Blood Count 5.03 X10*6/uL (4.60-5.80); Red Cell Distribution Width 18.3 % (11.0-16.0)
[2024-08-06 14:52] LABS: Prothrombin Time 12.1 SEC (10.9-12.4)
[2024-08-06 14:54] LABS: Partial Thromboplastin Time 37.9 SEC (26.0-36.8)
[2024-08-06 14:58] LABS: Stroke Lab Use COMPLETE
[2024-08-06 15:00] LABS: Anion Gap 8 (12-20); Blood Urea Nitrogen 6 mg/dL (9-16); Calcium 9.4 mg/dL (8.4-10.2); Carbon Dioxide 28 mmol/L (22-29); Chloride 110 mmol/L (96-108); Cholesterol 102 mg/dL (<200); Creatinine Clr Calc Pharmacy 142.5; Estimated Glomerular Filt Rate > 60; Glucose Random 69 mg/dL (60-115); HDL Cholesterol 31 mg/dL (>40); LDL Cholesterol Calculated 57 mg/dL (<100); Potassium 4.3 mmol/L (3.3-5.1); Sodium 142 mmol/L (135-145); Triglycerides 74 mg/dL (<150)
[2024-08-06 15:21] LABS: Troponin-I High Sensitivity < 2.7 ng/L (<3.5-35.0)
[2024-08-06 17:14] VITALS: BP 138/81; PULSE 97; RESP 20; TEMP 36.7; O2SAT 95
[2024-08-07 08:25] LABS: INR Whole Blood 1.1 (0.9-1.1); Prothrombin Time Whole Blood 12.6 sec (11.1-13.5)
== END 2024-08-06 17:15 | disposition home or self-care (01) ==
PROVIDERS: Emergency Provider Student in an Organized Health Care Education/Training Program
DX: R41.82 Altered mental status, unspecified (principal); F80.2 Mixed receptive-expressive language disorder; E11.9 Type 2 diabetes mellitus without complications; R29.701 NIHSS score 1; R11.0 Nausea; I10 Essential (primary) hypertension; E03.9 Hypothyroidism, unspecified; J44.9 Chronic obstructive pulmonary disease, unspecified; F17.210 Nicotine dependence, cigarettes, uncomplicated; Z79.4 Long term (current) use of insulin; Z87.820 Personal history of traumatic brain injury; Z79.899 Other long term (current) drug therapy
CPT/HCPCS: 36415; 70450; 70496; 70498; 71045; 80048; 80061; 82947; 84484; 85025; 85610; 85730; 93005; 96360; 96361; 99285; Q9967

== ENCOUNTER 2025-04-28 14:33 | Inpatient (IN) | payer MEDICARE, MEDICAID, SELFPAY ==
[2025-04-28] VITALS (11 sets, daily range): BP systolic 76–133; BP diastolic 40–62; PULSE 75–87; RESP 18–26; TEMP 36.6–37.9; O2SAT 49–100; BMI 21.7; BMI 19.6
--- NOTE | ~2025-04-28 | CT_ITS ---
CLINICAL HISTORY: fall CT head without contrast Comparison: None provided Findings: No intra-axial mass, midline shift, hydrocephalus, or acute hemorrhage. No significant atrophy-like change or white matter disease. The visualized paranasal sinuses and mastoid air cells are normal. The orbits are unremarkable. There is no acute fracture. IMPRESSION: 1. No acute intracranial findings. This document has been electronically signed by: Pricila Garcia MD on 04/28/2025 17:15:31
--- NOTE | ~2025-04-28 | CT_ITS ---
CLINICAL HISTORY: r o PE CT angiography chest with contrast. 3D Postprocessing. Comparison: None provided Findings: The heart size is normal. RV/LV ratio is normal. Unremarkable thoracic aorta and great vessels. No aneurysm. Moderate coronary calcium. No dissection. No pulmonary artery filling defects. Unremarkable thyroid. Mildly enlarged bilateral hilar and mediastinal lymph nodes. Apical predominant centrilobular emphysema without dense consolidation, pleural effusion or pneumothorax. Pleural calcification bilaterally. The upper abdomen is unremarkable. No acute fractures. IMPRESSION: 1. No pulmonary embolus. 2. Apical predominant emphysema with calcified pleural plaques. No dense consolidation or effusion. This document has been electronically signed by: Lis Gabriel MD on 04/29/2025 07:42:37
--- NOTE | ~2025-04-28 | XR_ITS ---
EXAMINATION: XR SHOULDER, RIGHT CLINICAL INFORMATION: Fall COMPARISON: May 25, 2019. TECHNIQUE: AP external rotation, Grashey, scapular Y, and axillary views of the right shoulder. FINDINGS: Sclerosis along the articular surface of the right acromioclavicular joint. No acute cortical disruption or gross malalignment. No lytic or blastic lesions. Pulmonary reticular pattern. Questionable calcified pleural plaques. XR/XR shoulder RT min 2V IMPRESSION: No acute fracture or dislocation. Mild osteoarthrosis/arthritis, acromioclavicular joint. Chronic interstitial lung disease. Asbestos exposure cannot be excluded. Electronically signed by: Joshua García MD 04/29/2025 08:13 AM EDT
--- NOTE | ~2025-04-28 | XR_ITS ---
EXAMINATION: XR CHEST CLINICAL INFORMATION: Shortness of breath COMPARISON: 08/06/2024 TECHNIQUE: Frontal view of the chest was obtained. FINDINGS: Cardiac size is within normal limits. There is persistent focal opacity over the left cardiac apex. Groundglass and airspace opacities are visible in the right lower lung and left mid and lower lung zone. Degenerative changes are present in both shoulder joints with marginal osteophytes. XR/XR chest 1V IMPRESSION: Patchy airspace opacities in the right lower lung zone, left mid and lower lung zones, concerning for pneumonia. Electronically signed by: Rolando Winter MD 04/28/2025 04:37 PM EDT
--- NOTE | ~2025-04-28 | CT_ITS ---
CLINICAL HISTORY: found on the ground CT cervical spine without contrast Comparison: None provided Findings: Normal vertebral body alignment. No significant degenerative change. No acute fractures or dislocations. Visualized intracranial contents are unremarkable. No cervical fluid collections or masses. Severe emphysema. IMPRESSION: No acute findings. This document has been electronically signed by: Pricila Garcia MD on 04/28/2025 17:19:58
--- NOTE | 2025-04-28 14:49 | ECG_ITS ---
Test Reason : sob Blood Pressure : */* mmHG Vent. Rate : 81 BPM Atrial Rate : 81 BPM P-R Int : 142 ms QRS Dur : 88 ms QT Int : 374 ms P-R-T Axes : 73 36 63 degrees QTcB Int : 434 ms Normal sinus rhythm Normal ECG When compared with ECG of 06-Aug-2024 13:40, No significant change was found Referred By: Renato Edwards Electronically Signed By: Severo Sim
[2025-04-28 15:03] LABS: ABG Base Excess 7.7 mmol/L; ABG HCO3 35 mmol/L (22-26); ABG pCO2 60 mmHg (32-45); ABG pH 7.36 (7.35-7.45); ABG pO2 114 mmHg (83-108)
--- NOTE | 2025-04-28 15:05 | ED_ITS ---
HPI - General Adult General Chief complaint: General Medical Stated complaint: fall, found on floor, neck/r shoulder pain, collar Time Seen by Provider: 04/28/25 14:59 Source: patient, EMS and old records reviewed Mode of arrival: EMS Limitations: altered mental status History of Present Illness ED Provider: DR. Edwards HPI narrative: 59-year-old male PMH schizophrenia, insulin-dependent DM, hypothyroidism, asthma/COPD overlap syndrome, HLD, BPH, TBI brought in by ambulance after was found by his caregiver on the floor with unknown time down, patient initially found to be hypoxic in the 50% room air improved with supplemental oxygen 15 L on non-rebreather the now he is on 2 L of face mask with O2 sat 96% in the room air, patient complaining of shortness of breath and chest pain. Patient overall is a poor historian unable to provide history. Otherwise no specific complaints. Related Data Home Medications ?Medication ?Instructions ?Recorded ?Confirmed insulin lispro 100 unit/mL See Protocol subcut TIDAC 0 03/02/24 04/04/24 subcutaneous solution (Humalog U-100 Insulin) insulin glargine 100 unit/mL 15 unit subcut BEDTIME 04/04/24 subcutaneous solution Previous Rx's ?Medication ?Instructions ?Recorded albuterol sulfate 90 mcg/actuation 2 puff inhalation R Q4H PRN 03/19/24 aerosol inhaler (Ventolin HFA) Shortness Of Breath 30 days #1 inhaler atenolol 50 mg tablet 25 mg (1/2 x 50 mg) PO DAILY 30 03/19/24 days #15 tabs atorvastatin 40 mg tablet 40 mg PO BEDTIME 30 days #30 tabs 03/19/24 clonazepam 0.5 mg tablet 0.5 mg PO BID PRN anxiety, 0 03/19/24 moderate 30 days #60 tabs clozapine 100 mg tablet 200 mg (2 x 100 mg) PO BEDTI ME 30 03/19/24 days #60 tabs clozapine 25 mg tablet 75 mg (3 x 25 mg) PO BEDTIME 30 03/19/24 days #90 tabs desmopressin 0.2 mg tablet 0.1 mg (1/2 x 0.2 mg) PO BE DTIME 03/19/24 30 days #15 tabs docusate sodium 100 mg capsule 100 mg PO BID PRN const ipation 30 03/19/24 days #60 caps fluphenazine HCl 1 mg tablet 1 mg PO BEDTIME 30 days # 30 tabs 03/19/24 fluticasone fur. 100 mcg-umeclid 1 inh inhalation RDAI LY 30 days 03/19/24 62.5 mcg-vilant 25 mcg #60 ea inhalat.powder (Trelegy Ellipta) fluticasone propionate 50 1 spray intranasal DAILY 30 days 03/19/24 mcg/actuation nasal #1 inhaler spray,suspension (Flonase Allergy Relief) gabapentin 600 mg tablet 1 tab PO TID 30 days #90 tab s 03/19/24 glipizide 2.5 mg tablet, extended 2.5 mg PO DAILY 30 d ays #30 tabs 03/19/24 release 24 hr levothyroxine 150 mcg tablet 1 tab PO DAILY@0600 30 da ys #30 03/19/24 tabs lidocaine 4 % topical patch 1 patch transdermal DAILY 30 days 03/19/24 (Lidocaine Pain Relief) #30 ea lithium carbonate 450 mg 450 mg PO BID 30 days #60 ta bs 03/19/24 tablet,extended release loratadine 10 mg tablet 10 mg PO DAILY 30 days #30 t abs 03/19/24 metformin 1,000 mg tablet 1 tab PO BIDWM 30 days #60 t abs 03/19/24 nicotine (polacrilex) 2 mg buccal 2 mg buccal Q2H PRN Nicotine 03/19/24 lozenge Cravings 30 days #108 ea polyethylene glycol 3350 17 gram 17 g PO DAILY 30 days #30 packets 03/19/24 oral powder packet sennosides 8.6 mg-docusate sodium 2 tab PO BID 30 days #120 tabs 03/19/24 50 mg tablet (Senna Plus) tamsulosin 0.4 mg capsule 0.4 mg PO BEDTIME 30 days #3 0 caps 03/19/24 prednisone 20 mg tablet 40 mg PO DAILY #10 tabs 03/13 12/04 Allergies Allergy/AdvReac Type Severity Reaction Status Date / Time amoxicillin (AMOXICILLIN) Allergy Intermediate SKIN RASH Verified 04/28/25 15:12 egg (EGGS) Allergy Intermediate HIVES, Verified 08/06/24 13:01 VOMITING Penicillins (PENICILLINS) Allergy Intermediate SKIN RASH Verified 08/06/24 13:01 Sulfa (Sulfonamide Allergy Intermediate SKIN RASH Verified 08/06/24 13:01 Antibiotics) (SULFA (SULFONAMIDE ANTIBIOTICS)) trimethoprim (TRIMETHOPRIM) Allergy Intermediate SKIN RASH Verified 08/06/24 13:01 penicillin V Allergy Unknown Unknown Verified 08/06/24 13:01 haloperidol (From Haldol) Allergy Unknown Verified 08/06/24 13:01 methylprednisolone (From Allergy Unknown Verified 08/06/24 13:01 Solu-Medrol) penicillin Allergy Unknown Unknown Uncoded 04/04/24 00:13 sultamicillin Allergy Unknown Unknown Uncoded 04/04/24 00:13 trimethoprim Allergy Unknown Unknown Uncoded 04/04/24 00:13 Review of Systems 2 Review of Systems: Yes Unobtainable due to mental status PMFSH Past Medical History Medical History Fall Encounter for staple removal Routine medical exam Hypothyroidism Diabetes mellitus type 2 in nonobese Hyperlipidemia Personal history of nicotine dependence Rash Loculated pleural effusion (~10/2020) Asbestos-induced pleural plaque Traumatic brain injury Schizophrenia HTN (hypertension) COPD (chronic obstructive pulmonary disease) Asthma Surgical History Status post small bowel resection Social History Social History Household Members: Caregiver Household Members Other:: lives in [facility] Housing: Other Housing Other:: [facility] Do you presently have visiting nurse or other home services: No Alcohol intake: never Comment: Not wearing non-skid socks provided. Encouraged compliance with this. Patient Tobacco Use Status: Current everyday Tobacco user Tobacco use type: Cigarette and Cigar Cigarette Packs Per Day: 1 Cigarettes Per Day: 20.0 Years Smoked: 40 Smoked in Last 30 Days: No e-Cigarette/Vaping Use: Currently Using Second Hand Smoke Exposure: Yes Use of substances other than those prescribed or required for medical reasons: No Substance Use Type: Marijuana Advance Directives: No Advance Directives Information Provided: No service: No Current occupational status: disabled Sexual orientation: Unable to collect Physical Exam ED Vital Signs: Vital Signs - 24 hr 04/28/25 15:11 04/28/25 15:17 04/28/25 15:20 Temperature 100.2 F Pulse Rate 81 82 83 Respiratory Rate 24 H 24 H 22 H Blood Pressure 76/40 L 100/49 L 107/57 L Pulse Oximetry 49 L 95 94 Oxygen Delivery Method Room Air Oxymask Nasal Cannula Oxygen Flow Rate 3 3 04/28/25 16:40 04/28/25 17:23 Temperature 98.6 F Pulse Rate 82 82 Respiratory Rate 25 H 18 Blood Pressure 133/57 L 126/62 Pulse Oximetry 96 98 Oxygen Delivery Method Oxymask Oxymizer Oxygen Flow Rate 3 3 BMI result Body Mass Index 21.7 Vital signs have been reviewed and appear to be correct. Blood pressure elevated. Heart rate normal. Respiratory rate normal. Temperature normal. Oxygen saturation normal. Appearance: Alert. Oriented X1 to place, No acute distress. Head: Normal external exam. Normocephalic. Atraumatic. No Hsieh signs noted. No raccoon eyes noted Eyes: PERRLA. EOMI. Conjunctiva and sclera normal. Eyelids normal. ENT: TM's Normal. Pharynx normal. Uvula midline. Moist mucous membranes. No trismus noted. No drooling noted. No muffled voice noted. Neck: Normal inspection. Neck supple. FROM. No adenopathy. Thyroid Normal. No meningeal signs. No neck mass noted. CVS: Normal heart rate and rhythm. Heart sound normal. No murmurs noted. Pulses normal throughout. Respiratory: No respiratory distress. Painless inspiration. Breath sounds normal. No wheezes/rales/rhonchi noted. Chest nontender. No accessory muscle usage noted or decreased air movement noted. Abdomen: Soft and nontender. Bowel sounds normal in all 4 quadrants. No distention noted. No organomegaly noted. No visible injury noted. Back: No CVA tenderness. Full range of motion noted. Skin: Skin warm and dry. Normal skin color. Normal skin turgor. No rashes/lesions/lacerations noted. Extremities: No lower extremity edema. Extremities exhibit normal range of motion. Extremities nontender. Neuro: Cranial nerve exam: II-XII are grossly intact No motor deficit. No sensory deficit. Reflexes normal. NIH Stroke Scale Internal: Initial- Upon Arrival Time: 15:10 Level of Consciousness: Alert Level of Consciousness Questions: Answers both questions correctly Level of Consciousness Commands: Performs both tasks correctly Best Gaze: Normal Visual: No visual loss Facial Palsy: Normal Motor Arm (Right): No drift Motor Arm (Left): No drift Motor Leg (Right): No drift Motor Leg (Left): No drift Limb Ataxia: Absent Sensory: Normal Best Language: No aphasia Dysarthia: Normal Extinction and Inattention: No abnormality Score: 0 Course Reevaluation(s) Reevaluation #1: FOCUSED EXAM was done at 19:27 Patient was multilobar pneumonia patient met criteria for SIRS initially and at some point he was 1 time hypotensive responded well to 30 cc/kg bolus of fluids total of2,177.25cc , patient received ceftriaxone and doxycycline. No severe rhabdomyolysis, troponin is elevated x2 with no delta changes, EKG is not suggesting acute ischemic changes. Will admit for further management case discussed with Dr. Bhandari Time: :27 Medications Administered Discontinued Medications Generic Name Dose Route Start Last Admin Trade Name Freq PRN Reason Stop Dose Admin Ceftriaxone Sodium 1 gm 04/28/25 15:22 04/28/25 15:42 Ceftriaxone Sodium 1 Gm Vial IVPUSH 04/28/25 15:23 1 gm ONCE ONE Administration Sodium Chloride 1,000 mls @ 999 mls/hr 04/28/25 14:48 04/28/25 15:57 Ns IV 04/28/25 15:48 Infused .Q1H1M ONE Infusion Lactated Ringer's 1,000 mls @ 999 mls/hr 04/28/25 15:30 04/28/25 16:30 Lr IV 04/28/25 16:30 Infused .Q1H1M CAROLINE Infusion Magnesium Sulfate 2 gm in 50 mls @ 25 mls/hr 04/28/25 15:25 04/28/25 17:35 Magnesium Sulfate/H2o IV 04/28/25 17:24 Infused ONCE ONE Infusion Doxycycline Hyclate 100 mg/ 250 mls @ 166.67 mls/hr 04/28/25 16:43 04/28/25 18:43 Sodium Chloride IV 04/28/25 18:12 Infused ONCE ONE Infusion Lactated Ringer's 2,177.25 mls @ 2,177.25 mls/hr 04/28/25 16:43 04/28/25 17:31 Lr 30 ml/kg infuse over 1 hr (2177.25 ml) 04/28/25 17:42 Not Given IV .Q1H ONE Ketorolac Tromethamine 15 mg 04/28/25 18:36 04/28/25 19:03 Ketorolac Tromethamine 15 Mg/Ml Vial IVPUSH 04/28/25 18:37 15 mg ONCE ONE Administration Methylprednisolone Sodium Succinate 125 mg 04/28/25 15:25 04/28/25 15:37 Methylprednisolone Sod Succ 125 Mg Vial IVPUSH 04/28/25 15:26 125 mg ONCE ONE Administration Morphine Sulfate 2 mg 04/28/25 18:36 04/28/25 19:04 Morphine Sulfate 2 Mg/Ml Cartridge IVPUSH 04/28/25 18:37 2 mg ONCE ONE Administration Protocol Medical Decision Making Differential Diagnosis Differential Diagnoses: The differential diagnosis associated with the presentation includes (Pneumonia, rhabdomyolysis, pneumothorax, pleural effusion, severe anemia, electrolyte derangement, UTI, head injury, cervical spine injury.) Admission/Observation Consideration of admission/observation: Escalation of care including admission/observation considered Consult Healthcare Provider Management of the patient was discussed with: Hospitalist (Dr. Bhandari) Lab Data MDM Lab Attestation statement: I reviewed the patient's lab results. 04/28/25 15:56 04/28/25 15:56 Labs: Lab Results 04/28/25 04/28/25 04/28/25 Range/Units 14:59 15:19 15:56 WBC 9.4 (4.8-10.8) X10*3/uL RBC 4.83 (4.60-5.80) X10*6/uL Hgb 11.4 L (14.0-18.0) g/dl Hct 40.8 L (42.0-52.0) % MCV 84.5 (80.0-98.0) fL MCH 23.6 L (27.0-33.0) pg MCHC 27.9 L (31.0-36.0) g/dl RDW 20.6 H (11.0-16.0) % Plt Count 238 D (160-400) X10*3/uL MPV 9.2 L (9.4-12.4) fL Immature Gran % (Auto) 0.2 (0.0-0.4) % Neut % (Auto) 77.3 H (45-73) % Lymph % (Auto) 13.0 L (20-40) % [place] % (Auto) 8.8 (2-11) % Eos % (Auto) 0.1 (0-4) % Baso % (Auto) 0.6 (0-2) % Lymph # (Auto) 1.2 (1.2-4.9) X10*3/uL [place] # (Auto) 0.8 (0.1-1.2) X10*3/uL Eos # (Auto) 0.0 (0.0-0.4) X10*3/uL Baso # (Auto) 0.1 (0.0-0.2) X10*3/uL Abs Immat Gran (auto) 0.02 (0.00-0.03) X10*3/uL Absolute Neuts (auto) 7.3 (2.0-8.3) x10*3/uL Absolute Nucleated RBC 0.000 (0.0-0.012) X10*3/uL Nucleated RBC % (auto) 0.0 (0.0-0.2) /100WBC O2 Saturation 99.0 % ABG pH at Pt Temp 7.36 (7.35-7.45) ABG pCO2 at Pt Temp 60 H* (32-45) mmHg ABG pO2 at Pt Temp 114 H (83-108) mmHg ABG HCO3 35 H (22-26) mmol/L ABG Base Excess (Actual) 7.7 mmol/L VBG pH (7.32-7.43) VBG pCO2 mmHg VBG pO2 mmHg VBG HCO3 (22-26) mmol/L VBG O2 Saturation % VBG Base Excess mmol/L Sodium 139 (135-145) mmol/L Potassium 4.5 (3.3-5.1) mmol/L Chloride 104 (96-108) mmol/L Carbon Dioxide 28 (22-29) mmol/L Anion Gap 12 (12-20) BUN 15 (9-16) mg/dL Creatinine 0.84 (0.5-1.4) mg/dL Estim Creat Clear Calc 97.1 Estimated GFR > 60 Random Glucose 88 (60-115) mg/dL Lactic Acid 1.7 (0.5-2.0) mmol/L Calcium 8.5 D (8.4-10.2) mg/dL Total Bilirubin 0.3 (0.0-1.0) mg/dL Direct Bilirubin 0.2 (0.0-0.5) mg/dL AST 26 (5-37) U/L ALT 10 (0-40) U/L Alkaline Phosphatase 73 (39-117) U/L Total Creatine Kinase 426 H (38-174) U/L Troponin I High Sens 423.9 H* D (<3.5-35.0) ng/L B-Natriuretic Peptide 301 H (<100) pg/mL Total Protein 6.1 L (6.5-8.0) g/dL Albumin 3.4 L (3.5-5.0) g/dL Lipase 4 L (8-78) U/L Influenza Type A (PCR) NEGATIVE (Negative) Influenza Type B (PCR) NEGATIVE (Negative) RSV RNA Qual (PCR) NEGATIVE (Negative) SARS-CoV-2 RNA (RT-PCR) NEGATIVE (Negative) 04/28/25 04/28/25 Range/Units 16:02 17:53 WBC (4.8-10.8) X10*3/uL RBC (4.60-5.80) X10*6/uL Hgb (14.0-18.0) g/dl Hct (42.0-52.0) % MCV (80.0-98.0) fL MCH (27.0-33.0) pg MCHC (31.0-36.0) g/dl RDW (11.0-16.0) % Plt Count (160-400) X10*3/uL MPV (9.4-12.4) fL Immature Gran % (Auto) (0.0-0.4) % Neut % (Auto) (45-73) % Lymph % (Auto) (20-40) % [place] % (Auto) (2-11) % Eos % (Auto) (0-4) % Baso % (Auto) (0-2) % Lymph # (Auto) (1.2-4.9) X10*3/uL [place] # (Auto) (0.1-1.2) X10*3/uL Eos # (Auto) (0.0-0.4) X10*3/uL Baso # (Auto) (0.0-0.2) X10*3/uL Abs Immat Gran (auto) (0.00-0.03) X10*3/uL Absolute Neuts (auto) (2.0-8.3) x10*3/uL Absolute Nucleated RBC (0.0-0.012) X10*3/uL Nucleated RBC % (auto) (0.0-0.2) /100WBC O2 Saturation % ABG pH at Pt Temp (7.35-7.45) ABG pCO2 at Pt Temp (32-45) mmHg ABG pO2 at Pt Temp (83-108) mmHg ABG HCO3 (22-26) mmol/L ABG Base Excess (Actual) mmol/L VBG pH 7.39 (7.32-7.43) VBG pCO2 50 mmHg VBG pO2 56 mmHg VBG HCO3 30 H (22-26) mmol/L VBG O2 Saturation 84.0 % VBG Base Excess 4.5 mmol/L Sodium (135-145) mmol/L Potassium (3.3-5.1) mmol/L Chloride (96-108) mmol/L Carbon Dioxide (22-29) mmol/L Anion Gap (12-20) BUN (9-16) mg/dL Creatinine (0.5-1.4) mg/dL Estim Creat Clear Calc Estimated GFR Random Glucose (60-115) mg/dL Lactic Acid (0.5-2.0) mmol/L Calcium (8.4-10.2) mg/dL Total Bilirubin (0.0-1.0) mg/dL Direct Bilirubin (0.0-0.5) mg/dL AST (5-37) U/L ALT (0-40) U/L Alkaline Phosphatase (39-117) U/L Total Creatine Kinase (38-174) U/L Troponin I High Sens 448.5 H* (<3.5-35.0) ng/L B-Natriuretic Peptide (<100) pg/mL Total Protein (6.5-8.0) g/dL Albumin (3.5-5.0) g/dL Lipase (8-78) U/L Influenza Type A (PCR) (Negative) Influenza Type B (PCR) (Negative) RSV RNA Qual (PCR) (Negative) SARS-CoV-2 RNA (RT-PCR) (Negative) Independent Interpretation I performed an independent interpretation of an: CT Scan (Head/C-spine: No acute pathology.) Radiology Impression Discussion of test interpretation with radiology: I have reviewed the radiologist's reading. Critical Care Time Critical Care Time Critical Care Time: Yes Total Critical Care Time: 60 Attestation: The patient was critically ill with a high probability of imminent or life- threatening deterioration. I spent greater than 30 minutes of discontinuous time evaluating the patient, delivering critical care at the bedside, discussing evaluating data with consultants. Critical care time does not include time spent performing separately billable procedures or teaching. Time spent performing critical care was 60 minutes. Discharge Plan Discharge Clinical Impression: Pneumonia, Sepsis Patient Disposition: Admitted As Inpatient Print Language: Yi
[2025-04-28] MEDS: 0.9 % Sodium Chloride 1,000 ML 999 ML IV (15:16)
[2025-04-28] MEDS: Magnesium Sulfate/H2O 2 GM/50 ML PIGGYBACK IV (15:37)
[2025-04-28] MEDS: Lactated Ringers 1,000 ML 999 ML IV (15:38)
[2025-04-28] MEDS: cefTRIAXone sodium 1 GM VIAL IVPUSH (15:42)
--- NOTE | 2025-04-28 15:50 | PC.NURSE ---
pt came in with [employer] fire with report of found down on floor in bedroom at [facility] for unk amount of time. Unk LOC, presumed fall. EMS applied c-collar. They reported he was 85% on RA but he did not arrive on any O2. During triage pt was hypoxic with good waveform 49%. NRB applied and brought pt up to 90s. Pt brought back down to an oxymask and has maintained 90s. On arrival he was alert and oriented to self but not situation. He is speaking in full sentences but seems confused. He is able to ask for water and blankets. HR in 80s. BP on arrival was hypotensive 76/40. 1 L NS infused on pressure bag and BP improved to 107/57. MD notified and a liter of LR was ordered and hung. At this point done and vitals have improved. Will continue to monitor.
[2025-04-28 16:00] LABS: Influenza A PCR NEGATIVE (Negative); Influenza B PCR NEGATIVE (Negative); Resp Syncy Virus RNA Qual PCR NEGATIVE (Negative); SARS COV2 PCR INHOUSE NEGATIVE (Negative)
[2025-04-28 16:03] LABS: MANUAL DIFF FLAG NO
[2025-04-28 16:04] LABS: Basophils Absolute Auto 0.1 X10*3/uL (0.0-0.2); Basophils Percent Auto 0.6 % (0-2); Eosinophils Percent Auto 0.1 % (0-4); Hematocrit 40.8 % (42.0-52.0); Hemoglobin 11.4 g/dl (14.0-18.0); Imm Gran Abs Auto 0.02 X10*3/uL (0.00-0.03); Imm Gran Pct Auto 0.2 % (0.0-0.4); Lymphocytes Absolute Auto 1.2 X10*3/uL (1.2-4.9); Mean Corpuscular HGB Conc 27.9 g/dl (31.0-36.0); Mean Corpuscular Hemoglobin 23.6 pg (27.0-33.0); Mean Corpuscular Volume 84.5 fL (80.0-98.0); Mean Platelet Volume 9.2 fL (9.4-12.4); Monocytes Absolute Auto 0.8 X10*3/uL (0.1-1.2); Monocytes Percent Auto 8.8 % (2-11); Neutrophils Absolute Auto 7.3 x10*3/uL (2.0-8.3); Neutrophils Percent Auto 77.3 % (45-73); Platelet Count 238 X10*3/uL (160-400); Red Blood Count 4.83 X10*6/uL (4.60-5.80); Red Cell Distribution Width 20.6 % (11.0-16.0); White Blood Count 9.4 X10*3/uL (4.8-10.8)
[2025-04-28 16:06] LABS: Venous Blood Gas Refer to POC result
[2025-04-28 16:07] LABS: VBG Base Excess 4.5 mmol/L; VBG HCO3 30 mmol/L (22-26); VBG pCO2 50 mmHg; VBG pH 7.39 (7.32-7.43); VBG pO2 56 mmHg
[2025-04-28 16:19] LABS: Lactic Acid 1.7 mmol/L (0.5-2.0)
[2025-04-28 16:20] LABS: Alanine Aminotransferase 10 U/L (0-40); Albumin Level 3.4 g/dL (3.5-5.0); Alkaline Phosphatase 73 U/L (39-117); Anion Gap 12 (12-20); Aspartate Amino Transferase 26 U/L (5-37); Bilirubin Direct 0.2 mg/dL (0.0-0.5); Bilirubin Total 0.3 mg/dL (0.0-1.0); Blood Urea Nitrogen 15 mg/dL (9-16); Calcium 8.5 mg/dL (8.4-10.2); Carbon Dioxide 28 mmol/L (22-29); Chloride 104 mmol/L (96-108); Creatinine Clr Calc Pharmacy 97.1; Estimated Glomerular Filt Rate > 60; Glucose Random 88 mg/dL (60-115); Lipase 4 U/L (8-78); Potassium 4.5 mmol/L (3.3-5.1); Sodium 139 mmol/L (135-145); Total Protein 6.1 g/dL (6.5-8.0)
[2025-04-28 16:25] LABS: B Type Natriuretic Peptide 301 pg/mL (<100)
[2025-04-28 16:31] LABS: Troponin-I High Sensitivity 423.9 ng/L (<3.5-35.0)
[2025-04-28] MEDS: Doxycycline Hyclate 100 MG in 0.9 % Sodium Chloride 250 ML 166.67 MG IV (17:08)
--- NOTE | 2025-04-28 17:32 | PC.NURSE ---
30mg/kg bolus ordered. after discussion with Dr. Edwards, only administer the difference and do not give the whole 30mg/kg bolus. Pt already had 2L of fluid as previous ordered by MD. Total amount received by pt is 2,177ml
--- OUTSIDE RECORDS SUMMARY | 2025-04-28 17:52 | XMS_ITS ---
Author Name [facility] Organization Unknown Results Test Name/Text Value Interpretation Date Range Source Glucose Bld-mCnc 127mg/dL [id number] 70 - 199 [facility] Glucose Bld-mCnc 226mg/dL Above high normal 951194878637 70 - 199 [facility] Glucose Bld-mCnc 248mg/dL Above high normal 112114724851 70 - 199 [facility] Glucose Bld-mCnc 83mg/dL 555617747802 70 - 199 [facility] Glucose Bld-mCnc 163mg/dL 537173554731 70 - 199 [facility] Glucose Bld-mCnc 129mg/dL [id number] 70 - 199 [facility] Glucose Bld-mCnc 339mg/dL Above high normal 154970922771 70 - 199 [facility] Glucose Bld-mCnc 127mg/dL 194195956434 70 - 199 [facility] Glucose Bld-mCnc 114mg/dL [id number] 70 - 199 [facility] Glucose Bld-mCnc 335mg/dL Above high normal 149349235632 70 - 199 [facility] Glucose Bld-mCnc 361mg/dL Above high normal 891831069449 70 - 199 [facility] Glucose Bld-mCnc 113mg/dL 297090511041 70 - 199 [facility] Glucose Bld-mCnc 304mg/dL Above high normal 936317107241 70 - 199 [facility] Magnesium SerPl-mCnc 1.9mg/dL 594243923622 1.7 - 2.8 [facility] Phosphate SerPl-mCnc 3.6mg/dL 515747335643 2.5 - 4.5 [facility] Anion Gap SerPl Calc-sCnc 4 Below low normal 551667992155 5 - 14 [facility] CO2 SerPl-sCnc 32mmol/L 716931042979 24 - 32 [facility] BUN SerPl-mCnc 15mg/dL 872039845724 9 - 20 [facility] Potassium SerPl-sCnc 4.1mmol/L 852889835125 3.5 - 5.1 [facility] eGFRcr SerPlBld CKD-EPI 2020 102mL/min/1.73 m2 887308804834 - [facility] Glucose SerPl-mCnc 373mg/dL Above high normal 113273041450 70 - 199 [facility] BUN/Creat SerPl 18.8 411507000009 12 - 20 [facility] Chloride SerPl-sCnc 98mmol/L 627006815887 98 - 107 [facility] Creat SerPl-mCnc 0.8mg/dL 735670267261 0.7 - 1.3 [facility] Calcium SerPl-mCnc 8.7mg/dL 986713381153 8.4 - 10 .2 [facility] Sodium SerPl-sCnc 134mmol/L Below low normal 062014491005 13 5 - 145 [facility] Neutrophils # Bld Auto 6.9K/mcL 229936801414 1.8 - 7.8 [facility] RDW RBC Auto 17.8% Above high normal 260433640458 12.1 - 17.7 [facility] RBC Auto 76.6FL Below low normal 211013478736 78 - 100 [facility] MCH RBC Qn Auto 23.3pcg Below low normal 180639468942 25 - 33 [facility] Neutrophils NFr Bld Auto 66.7% 44 - 74 [facility] Monocytes # Bld Auto 0.6K/mcL [id number] 0 - 0.8 [facility] Basophils # Bld Auto 0K/mcL 751915585826 0 - 0.2 [facility] Lymphocytes NFr Bld Auto 26.2% 20 - 48 [facility] Eosinophil NFr Bld Auto 0.5% 0 - 6 [facility] Lymphocytes # Bld Auto 2.7K/mcL 1 - 3.2 [facility] Hgb Bld-mCnc 11.2g/dL Below low normal 13.5 - 18 [facility] PMV Bld Auto 8.2FL 7.4 - 11.4 [facility] Platelet # Bld Auto 284K/mcL 150 - 450 [facility] Hct VFr Bld Auto 36.8% Below low normal 40 - 54 [facility] MCHC RBC Auto-EntMCnc 30.4g/dL Below low normal 32 - 36 [facility] RBC # Bld Auto 4.81M/mcL 4.7 - 6 [facility] WBC # Bld Auto 10.4K/mcL 4 - 10.5 [facility] Basophils NFr Bld Auto 0.4% 0 - 2 [facility] Monocytes NFr Bld Auto 6.2% 2 - 12 [facility] Eosinophil # Bld Auto 0K/mcL 0 - 0.5 [facility] Glucose Bld-mCnc 240mg/dL Above high normal [id number] 70 - 199 [facility] Glucose Bld-mCnc 236mg/dL Above high normal 731152042443 70 - 199 [facility] Glucose Bld-mCnc 132mg/dL 452774672253 70 - 199 [facility] Glucose Bld-mCnc 97mg/dL 018169352209 70 - 199 [facility] Sodium SerPl-sCnc 138mmol/L 790697232618 135 - 145 [facility] BUN SerPl-mCnc 16mg/dL 579135111520 9 - 20 [facility] Creat SerPl-mCnc 0.6mg/dL Below low normal 632952470027 0.7 - 1.3 [facility] eGFRcr SerPlBld CKD-EPI 2021 111mL/min/1.73 m2 182769608316 - [facility] Anion Gap SerPl Calc-sCnc 7 5 - 14 [facility] Glucose SerPl-mCnc 150mg/dL Above high normal 70 - 99 [facility] BUN/Creat SerPl 26.7 Above high normal 12 - 20 [facility] Chloride SerPl-sCnc 101mmol/L 98 - 107 [facility] CO2 SerPl-sCnc 30mmol/L 24 - 32 [facility] Calcium SerPl-mCnc 9.5mg/dL 8.4 - 10 .2 [facility] Potassium SerPl-sCnc 3.9mmol/L 3.5 - 5.1 [facility] Phosphate SerPl-mCnc 3.2mg/dL 2.5 - 4.5 [facility] Magnesium SerPl-mCnc 1.9mg/dL 1.7 - 2.8 [facility] Hct VFr Bld Auto 40.2% 114150047392 40 - 54 [facility] RBC Auto 77.2FL Below low normal 285627174624 78 - 100 [facility] Monocytes NFr Bld Auto 6.2% 713770068276 2 - 12 [facility] PMV Bld Auto 8.6FL 300569687321 7.4 - 11.4 [facility] Eosinophil # Bld Auto 0K/mcL 486482874982 0 - 0.5 [facility] RBC # Bld Auto 5.21M/mcL 685289390542 4.7 - 6 [facility] MCHC RBC Auto-EntMCnc 30.4g/dL Below low normal 301398277314 32 - 36 [facility] Neutrophils NFr Bld Auto 72.6% 600010922282 44 - 74 [facility] Lymphocytes # Bld Auto 2.7K/mcL 874635693942 1 - 3.2 [facility] Monocytes # Bld Auto 0.8K/mcL 411703134860 0 - 0.8 [facility] Neutrophils # Bld Auto 9.6K/mcL Above high normal 257554854635 1.8 - 7.8 [facility] WBC # Bld Auto 13.2K/mcL Above high normal 847566325820 4 - 10.5 [facility] Platelet # Bld Auto 291K/mcL [id number] 150 - 450 [facility] Lymphocytes NFr Bld Auto 20.6% 906252611982 20 - 48 [facility] Basophils # Bld Auto 0K/mcL 514150455720 0 - 0.2 [facility] RDW RBC Auto 18.4% Above high normal 787350847952 12.1 - 17.7 [facility] MCH RBC Qn Auto 23.5pcg Below low normal 573308677382 25 - 33 [facility] Basophils NFr Bld Auto 0.3% 435661333435 0 - 2 [facility] Hgb Bld-mCnc 12.2g/dL Below low normal 196625118215 13.5 - 18 [facility] Eosinophil NFr Bld Auto 0.3% 843887802645 0 - 6 [facility] Glucose Bld-mCnc 394mg/dL Above high normal 580797431297 70 - 199 [facility] Glucose Bld-mCnc 266mg/dL Above high normal 992483380587 70 - 199 [facility] Glucose Bld-mCnc 112mg/dL 546080940560 70 - 199 [facility] Glucose Bld-mCnc 95mg/dL 70 - 199 [facility] Anion Gap SerPl Calc-sCnc 5 370951454961 5 - 14 [facility] Calcium SerPl-mCnc 9.5mg/dL 234800367882 8.4 - 10 .2 [facility] Potassium SerPl-sCnc 3.9mmol/L 196180365370 3.5 - 5.1 [facility] Chloride SerPl-sCnc 103mmol/L 438931155708 98 - 107 [facility] BUN SerPl-mCnc 16mg/dL 332984768146 9 - 20 [facility] eGFRcr SerPlBld CKD-EPI 2020 117mL/min/1.73 m2 621916042464 - [facility] Creat SerPl-mCnc 0.5mg/dL Below low normal 099775683055 0.7 - 1.3 [facility] BUN/Creat SerPl 32 Above high normal 189622886089 12 - 20 [facility] CO2 SerPl-sCnc 34mmol/L Above high normal 621418931544 24 - 32 [facility] Sodium SerPl-sCnc 142mmol/L 858715817297 135 - 145 [facility] Glucose SerPl-mCnc 105mg/dL 983156631133 70 - 199 [facility] Magnesium SerPl-mCnc 1.8mg/dL 603305627907 1.7 - 2.8 [facility] Phosphate SerPl-mCnc 2.7mg/dL 539148464409 2.5 - 4.5 [facility] Lymphocytes # Bld Auto 2.9K/mcL [id number] 1 - 3.2 [facility] Lymphocytes NFr Bld Auto 24.8% [id number] 20 - 48 [facility] MCHC RBC Auto-EntMCnc 30.2g/dL Below low normal 369908643438 32 - 36 [facility] Neutrophils # Bld Auto 8K/mcL Above high normal 819616863557 1.8 - 7.8 [facility] MCH RBC Qn Auto 23.4pcg Below low normal 684193851768 25 - 33 [facility] Monocytes # Bld Auto 0.8K/mcL 109857390638 0 - 0.8 [facility] Eosinophil # Bld Auto 0K/mcL 391552381545 0 - 0.5 [facility] PMV Bld Auto 8.4FL 524821969984 7.4 - 11.4 [facility] Basophils # Bld Auto 0K/mcL 082768906435 0 - 0.2 [facility] Platelet # Bld Auto 281K/mcL [id number] 150 - 450 [facility] Eosinophil NFr Bld Auto 0.3% 280080738525 0 - 6 [facility] RBC Auto 77.3FL Below low normal 956842542849 78 - 100 [facility] RBC # Bld Auto 5M/mcL 896466770518 4.7 - 6 [facility] Hct VFr Bld Auto 38.6% Below low normal 987775315976 40 - 54 [facility] Hgb Bld-mCnc 11.7g/dL Below low normal 220455273410 13.5 - 18 [facility] Monocytes NFr Bld Auto 6.5% 319257351727 2 - 12 [facility] WBC # Bld Auto 11.7K/mcL Above high normal 604567420375 4 - 10.5 [facility] RDW RBC Auto 18.5% Above high normal 839257993342 12.1 - 17.7 [facility] Neutrophils NFr Bld Auto 68.2% 317257366427 44 - 74 [facility] Basophils NFr Bld Auto 0.2% 741458280346 0 - 2 [facility] Glucose Bld-mCnc 329mg/dL Above high normal 903547798857 70 - 199 [facility] Glucose Bld-mCnc 385mg/dL Above high normal 081802299398 70 - 199 [facility] Glucose Bld-mCnc 184mg/dL 123002315519 70 - 199 [facility] Glucose Bld-mCnc 110mg/dL 627512433285 70 - 199 [facility] Phosphate SerPl-mCnc 3.1mg/dL 476784873230 2.5 - 4.5 [facility] Creat SerPl-mCnc 0.6mg/dL Below low normal 722185132628 0.7 - 1.3 [facility] Sodium SerPl-sCnc 142mmol/L 181795717622 135 - 145 [facility] Potassium SerPl-sCnc 4mmol/L 699433971989 3.5 - 5.1 [facility] Anion Gap SerPl Calc-sCnc 6 883720714027 5 - 14 [facility] eGFRcr SerPlBld CKD-EPI 2021 111mL/min/1.73 m2 730522865835 - [facility] Glucose SerPl-mCnc 112mg/dL 620232139944 70 - 199 [facility] Calcium SerPl-mCnc 10.1mg/dL 323520457262 8.4 - 10 .2 [facility] CO2 SerPl-sCnc 36mmol/L Above high normal 451902091244 24 - 32 [facility] BUN/Creat SerPl 21.7 Above high normal 575205854271 12 - 20 [facility] BUN SerPl-mCnc 13mg/dL 394977949010 9 - 20 [facility] Chloride SerPl-sCnc 100mmol/L 310209410390 98 - 107 [facility] Magnesium SerPl-mCnc 2mg/dL 520173394853 1.7 - 2.8 [facility] MCH RBC Qn Auto 23.4pcg Below low normal 533943218052 25 - 33 [facility] Monocytes # Bld Auto 0.7K/mcL 325747704794 0 - 0.8 [facility] Neutrophils NFr Bld Auto 70.3% 753296426671 44 - 74 [facility] Eosinophil NFr Bld Auto 0.4% 132234255088 0 - 6 [facility] Lymphocytes NFr Bld Auto 23.3% 468989469036 20 - 48 [facility] Hgb Bld-mCnc 13.6g/dL 598822015765 13.5 - 18 [facility] Neutrophils # Bld Auto 8K/mcL Above high normal 098530555416 1.8 - 7.8 [facility] RBC # Bld Auto 5.81M/mcL 767580500340 4.7 - 6 [facility] Lymphocytes # Bld Auto 2.7K/mcL 030645787392 1 - 3.2 [facility] Platelet # Bld Auto 274K/mcL 076436407848 150 - 450 [facility] RBC Auto 77.2FL Below low normal 892873360935 78 - 100 [facility] PMV Bld Auto 8.4FL 129827243190 7.4 - 11.4 [facility] Eosinophil # Bld Auto 0K/mcL 0 - 0.5 [facility] Basophils # Bld Auto 0K/mcL 0 - 0.2 [facility] RDW RBC Auto 17.8% Above high normal 12.1 - 17.7 [facility] Monocytes NFr Bld Auto 5.8% 2 - 12 [facility] MCHC RBC Auto-EntMCnc 30.3g/dL Below low normal 32 - 36 [facility] Hct VFr Bld Auto 44.8% 40 - 54 [facility] WBC # Bld Auto 11.4K/mcL Above high normal 4 - 10.5 [facility] Basophils NFr Bld Auto 0.2% 0 - 2 [facility] Glucose Bld-mCnc 386mg/dL Above high normal 70 - 199 [facility] Glucose Bld-mCnc 356mg/dL Above high normal 70 - 199 [facility] Glucose Bld-mCnc 149mg/dL 70 - 199 [facility] Glucose Bld-mCnc 92mg/dL 70 - 199 [facility] Phosphate SerPl-mCnc 3.1mg/dL 2.5 - 4.5 [facility] CO2 SerPl-sCnc 36mmol/L Above high normal 24 - 32 [facility] Chloride SerPl-sCnc 102mmol/L 98 - 107 [facility] Potassium SerPl-sCnc 4mmol/L 092295844440 3.5 - 5.1 [facility] Sodium SerPl-sCnc 141mmol/L 797865177453 135 - 145 [facility] eGFRcr SerPlBld CKD-EPI 2020 117mL/min/1.73 m2 - [facility] Calcium SerPl-mCnc 9.4mg/dL 149052899261 8.4 - 10 .2 [facility] Creat SerPl-mCnc 0.5mg/dL Below low normal 0.7 - 1.3 [facility] BUN/Creat SerPl 30 Above high normal 12 - 20 [facility] Anion Gap SerPl Calc-sCnc 3 Below low normal 5 - 14 [facility] BUN SerPl-mCnc 15mg/dL 9 - 20 [facility] Glucose SerPl-mCnc 92mg/dL 70 - 199 [facility] Magnesium SerPl-mCnc 2mg/dL 1.7 - 2.8 [facility] Eosinophil # Bld Auto 0.1K/mcL 0 - 0.5 [facility] Eosinophil NFr Bld Auto 0.5% 0 - 6 [facility] Platelet # Bld Auto 271K/mcL 150 - 450 [facility] MCHC RBC Auto-EntMCnc 30.8g/dL Below low normal 32 - 36 [facility] Hct VFr Bld Auto 38.6% Below low normal 40 - 54 [facility] Monocytes NFr Bld Auto 5.8% 2 - 12 [facility] Basophils NFr Bld Auto 0.4% 0 - 2 [facility] Basophils # Bld Auto 0K/mcL 0 - 0.2 [facility] RDW RBC Auto 17.4% 12.1 - 17.7 [facility] PMV Bld Auto 8.2FL 7.4 - 11.4 [facility] Hgb Bld-mCnc 11.9g/dL Below low normal 13.5 - 18 [facility] RBC Auto 77.1FL Below low normal 78 - 100 [facility] Lymphocytes NFr Bld Auto 23.8% 20 - 48 [facility] Lymphocytes # Bld Auto 2.8K/mcL 629423367731 1 - 3.2 [facility] Neutrophils # Bld Auto 8.2K/mcL Above high normal 1.8 - 7.8 [facility] Neutrophils NFr Bld Auto 69.5% 44 - 74 [facility] WBC # Bld Auto 11.8K/mcL Above high normal 4 - 10.5 [facility] Monocytes # Bld Auto 0.7K/mcL 0 - 0.8 [facility] MCH RBC Qn Auto 23.8pcg Below low normal 25 - 33 [facility] RBC # Bld Auto 5.01M/mcL 397789707595 4.7 - 6 [facility] Glucose Bld-mCnc 239mg/dL Above high normal 212808193411 70 - 199 [facility] Glucose Bld-mCnc 481mg/dL Above high normal 229383798690 70 - 199 [facility] Glucose Bld-mCnc 271mg/dL Above high normal 500934393467 70 - 199 [facility] Glucose Bld-mCnc 95mg/dL 70 - 199 [facility] Calcium SerPl-mCnc 9mg/dL 8.4 - 10 .2 [facility] eGFRcr SerPlBld CKD-EPI 1 111mL/min/1.73 m2 - [facility] Anion Gap SerPl Calc-sCnc 3 Below low normal 797903400363 5 - 14 [facility] Potassium SerPl-sCnc 4.2mmol/L 382357284529 3.5 - 5.1 [facility] Sodium SerPl-sCnc 138mmol/L 135 - 145 [facility] Creat SerPl-mCnc 0.6mg/dL Below low normal 583349041075 0.7 - 1.3 [facility] Chloride SerPl-sCnc 100mmol/L 98 - 107 [facility] BUN/Creat SerPl 31.7 Above high normal 983226081765 12 - 20 [facility] Glucose SerPl-mCnc 141mg/dL 972680064729 70 - 199 [facility] CO2 SerPl-sCnc 35mmol/L Above high normal 047645626172 24 - 32 [facility] BUN SerPl-mCnc 19mg/dL 052660295579 9 - 20 [facility] Phosphate SerPl-mCnc 3.4mg/dL 2.5 - 4.5 [facility] Magnesium SerPl-mCnc 1.8mg/dL 1.7 - 2.8 [facility] Monocytes NFr Bld Auto 6.2% 946754605732 2 - 12 [facility] Neutrophils # Bld Auto 9.4K/mcL Above high normal 566468979567 1.8 - 7.8 [facility] RBC Auto 76.6FL Below low normal 710164112010 78 - 100 [facility] Basophils # Bld Auto 0K/mcL 630649587604 0 - 0.2 [facility] Monocytes # Bld Auto 0.8K/mcL 764934913850 0 - 0.8 [facility] Lymphocytes # Bld Auto 2.5K/mcL 869208934879 1 - 3.2 [facility] Platelet # Bld Auto 288K/mcL [id number] 150 - 450 [facility] RBC # Bld Auto 5.23M/mcL 057666190639 4.7 - 6 [facility] RDW RBC Auto 17.9% Above high normal 693986037120 12.1 - 17.7 [facility] Eosinophil # Bld Auto 0.1K/mcL 246620886591 0 - 0.5 [facility] MCHC RBC Auto-EntMCnc 30.2g/dL Below low normal 247619599947 32 - 36 [facility] Hct VFr Bld Auto 40% 185506641733 40 - 54 [facility] Neutrophils NFr Bld Auto 73.7% 734868931613 44 - 74 [facility] PMV Bld Auto 7.8FL 385430474144 7.4 - 11.4 [facility] Hgb Bld-mCnc 12.1g/dL Below low normal 964658498378 13.5 - 18 [facility] MCH RBC Qn Auto 23.1pcg Below low normal 524045144242 25 - 33 [facility] WBC # Bld Auto 12.8K/mcL Above high normal 888188173075 4 - 10.5 [facility] Eosinophil NFr Bld Auto 0.6% 0 - 6 [facility] Lymphocytes NFr Bld Auto 19.4% Below low normal 865391205766 20 - 48 [facility] Basophils NFr Bld Auto 0.1% 142489848177 0 - 2 [facility] Glucose Bld-mCnc 324mg/dL Above high normal 101128289923 70 - 199 [facility] Glucose Bld-mCnc 291mg/dL Above high normal 170083114200 70 - 199 [facility] Glucose Bld-mCnc 199mg/dL 422214126859 70 - 199 [facility] Glucose Bld-mCnc 110mg/dL 371870181535 70 - 199 [facility] CO2 SerPl-sCnc 36mmol/L Above high normal 208790583616 24 - 32 [facility] eGFRcr SerPlBld CKD-EPI 2020 111mL/min/1.73 m2 - [facility] BUN/Creat SerPl 23.3 Above high normal 806497975721 12 - 20 [facility] Glucose SerPl-mCnc 105mg/dL Above high normal 568265926182 70 - 99 [facility] Calcium SerPl-mCnc 8.7mg/dL 964389067725 8.4 - 10 .2 [facility] Anion Gap SerPl Calc-sCnc 3 Below low normal 249654331371 5 - 14 [facility] Chloride SerPl-sCnc 100mmol/L 98 - 107 [facility] Sodium SerPl-sCnc 139mmol/L 101467939433 135 - 145 [facility] BUN SerPl-mCnc 14mg/dL 9 - 20 [facility] Potassium SerPl-sCnc 4mmol/L 625334563269 3.5 - 5.1 [facility] Creat SerPl-mCnc 0.6mg/dL Below low normal 121044266536 0.7 - 1.3 [facility] Magnesium SerPl-mCnc 1.7mg/dL 341560863012 1.7 - 2.8 [facility] Phosphate SerPl-mCnc 3mg/dL 698635783582 2.5 - 4.5 [facility] RBC Auto 77FL Below low normal 220003526356 78 - 100 [facility] Lymphocytes NFr Bld Auto 22.5% 259290898027 20 - 48 [facility] Hgb Bld-mCnc 11.8g/dL Below low normal 384847753558 13.5 - 18 [facility] Hct VFr Bld Auto 39.2% Below low normal 287895451937 40 - 54 [facility] MCHC RBC Auto-EntMCnc 30.1g/dL Below low normal 145022051231 32 - 36 [facility] PMV Bld Auto 8FL 314937046868 7.4 - 11.4 [facility] Neutrophils # Bld Auto 7.8K/mcL 517327292044 1.8 - 7.8 [facility] Neutrophils NFr Bld Auto 70.1% 464443714706 44 - 74 [facility] RBC # Bld Auto 5.09M/mcL 795113602114 4.7 - 6 [facility] Monocytes NFr Bld Auto 6.1% 594920879129 2 - 12 [facility] Basophils # Bld Auto 0K/mcL 916510012083 0 - 0.2 [facility] WBC # Bld Auto 11.1K/mcL Above high normal 123696646433 4 - 10.5 [facility] Platelet # Bld Auto 287K/mcL [id number] 150 - 450 [facility] MCH RBC Qn Auto 23.2pcg Below low normal 313651937609 25 - 33 [facility] Monocytes # Bld Auto 0.7K/mcL 167743747862 0 - 0.8 [facility] Basophils NFr Bld Auto 0.3% 0 - 2 [facility] Lymphocytes # Bld Auto 2.5K/mcL 219480172137 1 - 3.2 [facility] RDW RBC Auto 17.3% 12.1 - 17.7 [facility] Eosinophil NFr Bld Auto 1% 998703890528 0 - 6 [facility] Eosinophil # Bld Auto 0.1K/mcL 261739641755 0 - 0.5 [facility] Glucose Bld-mCnc 283mg/dL Above high normal 012065726569 70 - 199 [facility] Glucose Bld-mCnc 214mg/dL Above high normal 288936666345 70 - 199 [facility] Glucose Bld-mCnc 206mg/dL Above high normal 717610631852 70 - 199 [facility] Glucose Bld-mCnc 75mg/dL 117028469573 70 - 199 [facility] Monocytes # Bld Auto 0.7K/mcL 081837907904 0 - 0.8 [facility] Eosinophil # Bld Auto 0.1K/mcL 779814136206 0 - 0.5 [facility] WBC # Bld Auto 10.1K/mcL 147428241029 4 - 10.5 [facility] RBC Auto 77FL Below low normal 126497028476 78 - 100 [facility] Lymphocytes # Bld Auto 2.6K/mcL 357497512730 1 - 3.2 [facility] Hct VFr Bld Auto 39.1% Below low normal 306530258964 40 - 54 [facility] MCHC RBC Auto-EntMCnc 30.3g/dL Below low normal 692920354225 32 - 36 [facility] Neutrophils # Bld Auto 6.7K/mcL 801771772426 1.8 - 7.8 [facility] Hgb Bld-mCnc 11.9g/dL Below low normal 363897279416 13.5 - 18 [facility] Basophils # Bld Auto 0K/mcL 512638053561 0 - 0.2 [facility] Monocytes NFr Bld Auto 7% 711382864990 2 - 12 [facility] MCH RBC Qn Auto 23.4pcg Below low normal 25 - 33 [facility] Eosinophil NFr Bld Auto 1.4% 096828613426 0 - 6 [facility] RBC # Bld Auto 5.08M/mcL 4.7 - 6 [facility] Neutrophils NFr Bld Auto 66% 44 - 74 [facility] Basophils NFr Bld Auto 0.2% 0 - 2 [facility] Lymphocytes NFr Bld Auto 25.4% 20 - 48 [facility] Platelet # Bld Auto 274K/mcL 150 - 450 [facility] RDW RBC Auto 17.5% 12.1 - 17.7 [facility] PMV Bld Auto 7.8FL 7.4 - 11.4 [facility] eGFRcr SerPlBld CKD-EPI 1 111mL/min/1.73 m2 809573523627 - [facility] Sodium SerPl-sCnc 140mmol/L 609556547866 135 - 145 [facility] Chloride SerPl-sCnc 102mmol/L 998071993154 98 - 107 [facility] Calcium SerPl-mCnc 8.5mg/dL 577749644219 8.4 - 10 .2 [facility] CO2 SerPl-sCnc 37mmol/L Above high normal 924109328915 24 - 32 [facility] Glucose SerPl-mCnc 84mg/dL [id number] 70 - 199 [facility] Creat SerPl-mCnc 0.6mg/dL Below low normal [id number] 0.7 - 1.3 [facility] BUN/Creat SerPl 20 [id number] 12 - 20 C [facility] BUN SerPl-mCnc 12mg/dL [id number] 9 - 20 [facility] Anion Gap SerPl Calc-sCnc 1 Below low normal [id number] 5 - 14 [facility] Potassium SerPl-sCnc 4mmol/L [id number] 3.5 - 5.1 [facility] Phosphate SerPl-mCnc 2.5mg/dL [id number] 2.5 - 4.5 [facility] Magnesium SerPl-mCnc 1.7mg/dL [id number] 1.7 - 2.8 [facility] Glucose Bld-mCnc 213mg/dL Above high normal [id number] 70 - 199 [facility] Glucose Bld-mCnc 262mg/dL Above high normal [id number] 70 - 199 [facility] Glucose Bld-mCnc 196mg/dL [id number] 70 - 199 [facility] Glucose Bld-mCnc 132mg/dL [id number] 70 - 199 [facility] Magnesium SerPl-mCnc 1.5mg/dL Below low normal 380379257623 1.7 - 2.8 [facility] CO2 SerPl-sCnc 37mmol/L Above high normal [id number] 24 - 32 [facility] Anion Gap SerPl Calc-sCnc 3 Below low normal 433235340554 5 - 14 [facility] Chloride SerPl-sCnc 101mmol/L [id number] 98 - 107 [facility] Calcium SerPl-mCnc 8.4mg/dL [id number] 8.4 - 10 .2 [facility] Creat SerPl-mCnc 0.4mg/dL Below low normal [id number] 0.7 - 1.3 [facility] Sodium SerPl-sCnc 141mmol/L [id number] 135 - 145 [facility] Glucose SerPl-mCnc 126mg/dL Above high normal 125357357890 70 - 99 [facility] BUN/Creat SerPl 32.5 Above high normal 692266502265 12 - 20 [facility] BUN SerPl-mCnc 13mg/dL 978146584915 9 - 20 [facility] Potassium SerPl-sCnc 4mmol/L [id number] 3.5 - 5.1 [facility] eGFRcr SerPlBld CKD-EPI 2020 126mL/min/1.73 m2 [id number] - [facility] Phosphate SerPl-mCnc 3mg/dL [id number] 2.5 - 4.5 [facility] Monocytes NFr Bld Auto 6.9% [id number] 2 - 12 [facility] Neutrophils # Bld Auto 7.6K/mcL [id number] 1.8 - 7.8 [facility] Lymphocytes # Bld Auto 2.1K/mcL [id number] 1 - 3.2 [facility] Lymphocytes NFr Bld Auto 20% [id number] 20 - 48 [facility] RBC # Bld Auto 4.92M/mcL [id number] 4.7 - 6 [facility] MCHC RBC Auto-EntMCnc 30.3g/dL Below low normal 417637888637 32 - 36 [facility] Neutrophils NFr Bld Auto 71.7% [id number] 44 - 74 [facility] Platelet # Bld Auto 263K/mcL [id number] 150 - 450 [facility] Monocytes # Bld Auto 0.7K/mcL [id number] 0 - 0.8 [facility] MCH RBC Qn Auto 23.3pcg Below low normal 055943532035 25 - 33 [facility] RDW RBC Auto 17.9% Above high normal 564366296679 12.1 - 17.7 [facility] Basophils # Bld Auto 0K/mcL 679916395214 0 - 0.2 [facility] Basophils NFr Bld Auto 0.3% [id number] 0 - 2 [facility] Eosinophil NFr Bld Auto 1.1% [id number] 0 - 6 [facility] RBC Auto 76.8FL Below low normal 526537372423 78 - 100 [facility] Hgb Bld-mCnc 11.4g/dL Below low normal [id number] 13.5 - 18 [facility] Hct VFr Bld Auto 37.8% Below low normal [id number] 40 - 54 [facility] WBC # Bld Auto 10.6K/mcL Above high normal 942885476923 4 - 10.5 [facility] PMV Bld Auto 7.6FL 634458938530 7.4 - 11.4 [facility] Eosinophil # Bld Auto 0.1K/mcL 545575965839 0 - 0.5 [facility] Glucose Bld-mCnc 164mg/dL 561892352728 70 - 199 [facility] Glucose Bld-mCnc 256mg/dL Above high normal [id number] 70 - 199 [facility] Glucose Bld-mCnc 133mg/dL [id number] 70 - 199 [facility] Glucose Bld-mCnc 75mg/dL [id number] 70 - 199 [facility] Phosphate SerPl-mCnc 3.3mg/dL [id number] 2.5 - 4.5 [facility] Calcium SerPl-mCnc 9.6mg/dL [id number] 8.4 - 10 .2 [facility] Creat SerPl-mCnc 0.5mg/dL Below low normal 608050169973 0.7 - 1.3 [facility] CO2 SerPl-sCnc 39mmol/L Above high normal 536557102878 24 - 32 [facility] BUN/Creat SerPl 30 Above high normal [id number] 12 - 20 [facility] Chloride SerPl-sCnc 104mmol/L [id number] 98 - 107 [facility] Potassium SerPl-sCnc 3.7mmol/L 254304209831 3.5 - 5.1 [facility] eGFRcr SerPlBld CKD-EPI 2020 117mL/min/1.73 m2 [id number] - [facility] BUN SerPl-mCnc 15mg/dL [id number] 9 - 20 [facility] Sodium SerPl-sCnc 147mmol/L Above high normal 509547856423 1 35 - 145 [facility] Anion Gap SerPl Calc-sCnc 4 Below low normal 014327828399 5 - 14 [facility] Glucose SerPl-mCnc 72mg/dL [id number] 70 - 199 [facility] Magnesium SerPl-mCnc 1.7mg/dL 796243200262 1.7 - 2.8 [facility] Basophils # Bld Auto 0K/mcL [id number] 0 - 0.2 [facility] Eosinophil NFr Bld Auto 0.4% 472165987553 0 - 6 [facility] PMV Bld Auto 7.7FL 997210798093 7.4 - 11.4 [facility] Lymphocytes # Bld Auto 1.8K/mcL 811315262779 1 - 3.2 [facility] MCH RBC Qn Auto 23.3pcg Below low normal 498828479906 25 - 33 [facility] Platelet # Bld Auto 263K/mcL [id number] 150 - 450 [facility] Eosinophil # Bld Auto 0.1K/mcL [id number] 0 - 0.5 [facility] WBC # Bld Auto 11.8K/mcL Above high normal 583620384122 4 - 10.5 [facility] Basophils NFr Bld Auto 0.2% [id number] 0 - 2 [facility] RBC Auto 77.2FL Below low normal 396202608710 78 - 100 [facility] Lymphocytes NFr Bld Auto 15.5% Below low normal 603029465546 20 - 48 [facility] Monocytes # Bld Auto 0.7K/mcL [id number] 0 - 0.8 [facility] Neutrophils NFr Bld Auto 77.9% Above high normal 917332667816 44 - 74 [facility] RDW RBC Auto 17.6% [id number] 12.1 - 17.7 [facility] MCHC RBC Auto-EntMCnc 30.2g/dL Below low normal 196969705609 32 - 36 [facility] Monocytes NFr Bld Auto 6% [id number] 2 - 12 [facility] Neutrophils # Bld Auto 9.2K/mcL Above high normal 596270729416 1.8 - 7.8 [facility] RBC # Bld Auto 5.2M/mcL 882621035057 4.7 - 6 [facility] Hgb Bld-mCnc 12.1g/dL Below low normal [id number] 13.5 - 18 [facility] Hct VFr Bld Auto 40.1% [id number] 40 - 54 [facility] Glucose Bld-mCnc 63mg/dL Below low normal [id number] 70 - 199 [facility] Glucose Bld-mCnc 98mg/dL [id number] 70 - 199 [facility] Glucose Bld-mCnc 122mg/dL [id number] 70 - 199 [facility] Glucose Bld-mCnc 291mg/dL Above high normal [id number] 70 - 199 [facility] Glucose Bld-mCnc 299mg/dL Above high normal [id number] 70 - 199 [facility] BUN SerPl-mCnc 14mg/dL [id number] 9 - 20 [facility] Potassium SerPl-sCnc 4.7mmol/L [id number] 3.5 - 5.1 [facility] Chloride SerPl-sCnc 101mmol/L [id number] 98 - 107 [facility] Creat SerPl-mCnc 0.4mg/dL Below low normal [id number] 0.7 - 1.3 [facility] eGFRcr SerPlBld CKD-EPI 2020 126mL/min/1.73 m2 [id number] - [facility] Anion Gap SerPl Calc-sCnc 2 Below low normal [id number] 5 - 14 [facility] CO2 SerPl-sCnc 38mmol/L Above high normal [id number] 24 - 32 [facility] Sodium SerPl-sCnc 141mmol/L [id number] 135 - 145 [facility] Calcium SerPl-mCnc 9.4mg/dL [id number] 8.4 - 10 .2 [facility] BUN/Creat SerPl 35 Above high normal [id number] 12 - 20 [facility] Glucose SerPl-mCnc 242mg/dL Above high normal [id number] 70 - 199 [facility] Glucose Bld-mCnc 274mg/dL Above high normal [id number] 70 - 199 [facility] Magnesium SerPl-mCnc 1.7mg/dL [id number] 1.7 - 2.8 [facility] Potassium SerPl-sCnc 4.8mmol/L [id number] 3.5 - 5.1 [facility] Sodium SerPl-sCnc 142mmol/L [id number] 135 - 145 [facility] Chloride SerPl-sCnc 101mmol/L [id number] 98 - 107 [facility] Creat SerPl-mCnc 0.5mg/dL Below low normal 521713370908 0.7 - 1.3 [facility] Glucose SerPl-mCnc 282mg/dL Above high normal 763095364603 70 - 199 [facility] eGFRcr SerPlBld CKD-EPI 2020 117mL/min/1.73 m2 [id number] - [facility] BUN SerPl-mCnc 13mg/dL [id number] 9 - 20 [facility] Anion Gap SerPl Calc-sCnc 6 [id number] 5 - 14 [facility] BUN/Creat SerPl 26 Above high normal [id number] 12 - 20 [facility] CO2 SerPl-sCnc 35mmol/L Above high normal [id number] 24 - 32 [facility] Calcium SerPl-mCnc 9.7mg/dL [id number] 8.4 - 10 .2 [facility] Phosphate SerPl-mCnc 2.9mg/dL [id number] 2.5 - 4.5 [facility] Monocytes NFr Bld Auto 4.6% 2 - 12 [facility] Eosinophil NFr Bld Auto 0% 0 - 6 [facility] Neutrophils # Bld Auto 8.3K/mcL Above high normal [id number] 1.8 - 7.8 [facility] MCH RBC Qn Auto 23.7pcg Below low normal [id number] 25 - 33 [facility] Hct VFr Bld Auto 38.3% Below low normal [id number] 40 - 54 [facility] PMV Bld Auto 7.9FL 594876100138 7.4 - 11.4 [facility] RBC # Bld Auto 4.94M/mcL [id number] 4.7 - 6 [facility] Eosinophil # Bld Auto 0K/mcL [id number] 0 - 0.5 [facility] Lymphocytes # Bld Auto 0.5K/mcL Below low normal [id number] 1 - 3.2 [facility] Lymphocytes NFr Bld Auto 5.3% Below low normal [id number] 20 - 48 [facility] Monocytes # Bld Auto 0.4K/mcL [id number] 0 - 0.8 [facility] Neutrophils NFr Bld Auto 89.7% Above high normal [id number] 44 - 74 [facility] Hgb Bld-mCnc 11.7g/dL Below low normal [id number] 13.5 - 18 [facility] RDW RBC Auto 17.9% Above high normal [id number] 12.1 - 17.7 [facility] MCHC RBC Auto-EntMCnc 30.5g/dL Below low normal [id number] 32 - 36 [facility] Basophils # Bld Auto 0K/mcL [id number] 0 - 0.2 [facility] Basophils NFr Bld Auto 0.4% [id number] 0 - 2 [facility] Platelet # Bld Auto 258K/mcL [id number] 150 - 450 [facility] WBC # Bld Auto 9.2K/mcL [id number] 4 - 10.5 [facility] RBC Auto 77.6FL Below low normal [id number] 78 - 100 [facility] Glucose Bld-mCnc 203mg/dL Above high normal [id number] 70 - 199 [facility] Glucose Bld-mCnc 195mg/dL [id number] 70 - 199 [facility] SaO2 % BldA 95.3% [id number] 95 - 98 [facility] HCO3 BldA-sCnc 31.5mmol/L Above high normal [id number] 22 - 26 [facility] pH BldA 7.39pH 401919224694 7.35 - 7.45 [facility] pO2 BldA 67mmHg Below low normal [id number] 80 - 105 [facility] pCO2 BldA 59mmHg Above high normal [id number] 35 - 45 [facility] Base excess BldA Calc-sCnc 8.6mmol/L Above high normal [id number] 0 - 2 [facility] Glucose Bld-mCnc 124mg/dL [id number] 70 - 199 [facility] Magnesium SerPl-mCnc 1.9mg/dL [id number] 1.7 - 2.8 [facility] BUN/Creat SerPl 26 Above high normal [id number] 12 - 20 [facility] eGFRcr SerPlBld CKD-EPI 2020 117mL/min/1.73 m2 [id number] - [facility] Calcium SerPl-mCnc 8.6mg/dL [id number] 8.4 - 10 .2 [facility] Potassium SerPl-sCnc 4.8mmol/L [id number] 3.5 - 5.1 [facility] Creat SerPl-mCnc 0.5mg/dL Below low normal [id number] 0.7 - 1.3 [facility] Sodium SerPl-sCnc 141mmol/L [id number] 135 - 145 [facility] Chloride SerPl-sCnc 104mmol/L [id number] 98 - 107 [facility] CO2 SerPl-sCnc 33mmol/L Above high normal [id number] 24 - 32 [facility] Glucose SerPl-mCnc 190mg/dL Above high normal [id number] 70 - 99 [facility] Anion Gap SerPl Calc-sCnc 4 Below low normal [id number] 5 - 14 [facility] BUN SerPl-mCnc 13mg/dL [id number] 9 - 20 [facility] Neutrophils # Bld Auto 10.1K/mcL Above high normal [id number] 1.8 - 7.8 [facility] Basophils NFr Bld Auto 0.1% [id number] 0 - 2 [facility] Lymphocytes # Bld Auto 0.6K/mcL Below low normal [id number] 1 - 3.2 [facility] Hct VFr Bld Auto 34.3% Below low normal [id number] 40 - 54 [facility] RDW RBC Auto 18% Above high normal [id number] 12.1 - 17.7 [facility] Monocytes # Bld Auto 0.4K/mcL [id number] 0 - 0.8 [facility] Platelet # Bld Auto 252K/mcL [id number] 150 - 450 [facility] Neutrophils NFr Bld Auto 91.2% Above high normal [id number] 44 - 74 [facility] MCH RBC Qn Auto 23.1pcg Below low normal [id number] 25 - 33 [facility] WBC # Bld Auto 11.1K/mcL Above high normal [id number] 4 - 10.5 [facility] Monocytes NFr Bld Auto 3.5% [id number] 2 - 12 [facility] RBC # Bld Auto 4.41M/mcL Below low normal [id number] 4.7 - 6 [facility] MCHC RBC Auto-EntMCnc 29.7g/dL Below low normal [id number] 32 - 36 [facility] Eosinophil NFr Bld Auto 0% [id number] 0 - 6 [facility] RBC Auto 77.7FL Below low normal [id number] 78 - 100 [facility] PMV Bld Auto 7.6FL 548743755735 7.4 - 11.4 [facility] Hgb Bld-mCnc 10.2g/dL Below low normal [id number] 13.5 - 18 [facility] Lymphocytes NFr Bld Auto 5.2% Below low normal [id number] 20 - 48 [facility] Eosinophil # Bld Auto 0K/mcL [id number] 0 - 0.5 [facility] Basophils # Bld Auto 0K/mcL [id number] 0 - 0.2 [facility] Glucose Bld-mCnc 171mg/dL [id number] 70 - 199 [facility] Glucose Bld-mCnc 115mg/dL [id number] 70 - 199 [facility] Glucose Bld-mCnc 152mg/dL [id number] 70 - 199 [facility] Glucose Bld-mCnc 176mg/dL [id number] 70 - 199 [facility] Base excess BldA Calc-sCnc 4.2mmol/L Above high normal [id number] 0 - 2 [facility] pCO2 BldA 50mmHg Above high normal [id number] 35 - 45 [facility] SaO2 % BldA 99.6% Above high normal [id number] 95 - 98 [facility] pO2 BldA 85mmHg 750630246076 80 - 105 [facility] HCO3 BldA-sCnc 28.2mmol/L Above high normal [id number] 22 - 26 [facility] Chantelle index Bld+IhG-Rto 40 [id number] [facility] pH BldA 7.39pH 308086243262 7.35 - 7.45 [facility] Glucose Bld-mCnc 223mg/dL Above high normal [id number] 70 - 199 [facility] L pneumo Ag Ur Ql IA Negative 870679156809 - [facility] Chantelle index Bld+IhG-Rto 50 [id number] [facility] SaO2 % BldA 100% Above high normal [id number] 95 - 98 [facility] Base excess BldA Calc-sCnc 3mmol/L Above high normal [id number] 0 - 2 [facility] pO2 BldA 121mmHg Above high normal 871439739142 80 - 105 [facility] HCO3 BldA-sCnc 27.3mmol/L Above high normal [id number] 22 - 26 [facility] pH BldA 7.38pH 949092923367 7.35 - 7.45 [facility] Ramy Test Pass [id number] - [facility] pCO2 BldA 49mmHg Above high normal [id number] 35 - 45 [facility] Glucose Bld-mCnc 194mg/dL 70 - 199 [facility] Phosphate SerPl-mCnc 3.6mg/dL 2.5 - 4.5 [facility] CO2 SerPl-sCnc 28mmol/L 24 - 32 [facility] Sodium SerPl-sCnc 139mmol/L 135 - 145 [facility] Chloride SerPl-sCnc 104mmol/L 98 - 107 [facility] Calcium SerPl-mCnc 8.6mg/dL 8.4 - 10 .2 [facility] eGFRcr SerPlBld CKD-EPI 2020 111mL/min/1.73 m2 - [facility] Potassium SerPl-sCnc 4.5mmol/L 3.5 - 5.1 [facility] BUN SerPl-mCnc 17mg/dL 9 - 20 [facility] Creat SerPl-mCnc 0.6mg/dL Below low normal 0.7 - 1.3 [facility] BUN/Creat SerPl 28.3 Above high normal [id number] 12 - 20 [facility] Anion Gap SerPl Calc-sCnc 7 5 - 14 [facility] Glucose SerPl-mCnc 189mg/dL 70 - 199 [facility] Magnesium SerPl-mCnc 1.8mg/dL 1.7 - 2.8 [facility] Neutrophils # Bld Auto 13.3K/mcL Above high normal [id number] 1.8 - 7.8 [facility] MCH RBC Qn Auto 22.7pcg Below low normal 25 - 33 [facility] Platelet # Bld Auto 280K/mcL [id number] 150 - 450 [facility] PMV Bld Auto 8FL [id number] 7.4 - 11.4 [facility] Neutrophils NFr Bld Auto 94.2% Above high normal 44 - 74 [facility] Basophils # Bld Auto 0K/mcL [id number] 0 - 0.2 [facility] MCHC RBC Auto-EntMCnc 29.5g/dL Below low normal [id number] 32 - 36 [facility] RBC # Bld Auto 4.69M/mcL Below low normal [id number] 4.7 - 6 [facility] Basophils NFr Bld Auto 0.1% [id number] 0 - 2 [facility] Hgb Bld-mCnc 10.7g/dL Below low normal [id number] 13.5 - 18 [facility] Lymphocytes NFr Bld Auto 2.7% Below low normal [id number] 20 - 48 [facility] Eosinophil NFr Bld Auto 0% [id number] 0 - 6 [facility] RBC Auto 77FL Below low normal 313632292420 78 - 100 [facility] RDW RBC Auto 17.8% Above high normal [id number] 12.1 - 17.7 [facility] Lymphocytes # Bld Auto 0.4K/mcL Below low normal [id number] 1 - 3.2 [facility] WBC # Bld Auto 14.1K/mcL Above high normal [id number] 4 - 10.5 [facility] Eosinophil # Bld Auto 0K/mcL [id number] 0 - 0.5 [facility] Hct VFr Bld Auto 36.1% Below low normal [id number] 40 - 54 [facility] Monocytes NFr Bld Auto 3% [id number] 2 - 12 [facility] Monocytes # Bld Auto 0.4K/mcL [id number] 0 - 0.8 [facility] Glucose Bld-mCnc 148mg/dL [id number] 70 - 199 [facility] Reagan SerPl-sCnc 1.3mEq/L Above high normal [id number] 0.6 - 1.2 [facility] Glucose Bld-mCnc 119mg/dL [id number] 70 - 199 [facility] Osmolality Ur 282mOsm/kg 803665152102 50 - 1200 [facility] Sodium Ur-sCnc 26mmol/L Below low normal [id number] 50 - 191 [facility] Creat Ur-mCnc 23.6mg/dL [id number] [facility] Est. average glucose Bld gHb Est-mCnc 134mg/dL [id number] [facility] HbA1c MFr Bld 6.3% Above high normal [id number] - 5.7 [facility] TSH SerPl DL<=0.005 mIU/L-aCnc 0.9mcIU/mL 602518788402 0.45 - 5.33 [facility] Reagan SerPl-sCnc 1.3mEq/L Above high normal [id number] 0.6 - 1.2 [facility] Troponin I SerPl HS-mCnc 91ng/L Above high normal [id number] 0 - 20 [facility] BUN/Creat SerPl 25.7 Above high normal [id number] 12 - 20 [facility] Creat SerPl-mCnc 0.7mg/dL [id number] 0.7 - 1.3 [facility] Glucose SerPl-mCnc 101mg/dL [id number] 70 - 199 [facility] Anion Gap SerPl Calc-sCnc 7 655868436744 5 - 14 [facility] Potassium SerPl-sCnc 4.5mmol/L [id number] 3.5 - 5.1 [facility] Sodium SerPl-sCnc 137mmol/L [id number] 135 - 145 [facility] Calcium SerPl-mCnc 8.6mg/dL 779631011102 8.4 - 10 .2 [facility] Chloride SerPl-sCnc 102mmol/L [id number] 98 - 107 [facility] eGFRcr SerPlBld CKD-EPI 2020 106mL/min/1.73 m2 [id number] - [facility] BUN SerPl-mCnc 18mg/dL [id number] 9 - 20 [facility] CO2 SerPl-sCnc 28mmol/L 499499467555 24 - 32 [facility] Trigl SerPl-mCnc 130mg/dL 709318723461 - 150 [facility] Osmolality SerPl 299mOsm/kg Above high normal 2 75 - 295 [facility] RBC Auto 77FL Below low normal 499984494764 78 - 100 [facility] PMV Bld Auto 7.8FL 7.4 - 11.4 [facility] RBC # Bld Auto 5.02M/mcL [id number] 4.7 - 6 [facility] Platelet # Bld Auto 273K/mcL [id number] 150 - 450 [facility] RDW RBC Auto 18.4% Above high normal 353439454956 12.1 - 17.7 [facility] MCH RBC Qn Auto 23.6pcg Below low normal 25 - 33 [facility] Hct VFr Bld Auto 38.6% Below low normal 40 - 54 [facility] Hgb Bld-mCnc 11.9g/dL Below low normal 13.5 - 18 [facility] WBC # Bld Auto 11.4K/mcL Above high normal 4 - 10.5 [facility] MCHC RBC Auto-EntMCnc 30.7g/dL Below low normal 32 - 36 [facility] Lactate BldV-sCnc 1.6mmol/L 0.5 - 2.2 [facility] Glucose Bld-mCnc 99mg/dL 70 - 199 [facility] MRB mecC Islt/Spm Ql Not Detected [id number] - [facility] Sp Gr Ur 1.021 [id number] 1.005 - 1.03 [facility] Ketones Ur-mCnc Trace Abnormal - C [facility] Prot Ur Strip-mCnc Negative - [facility] Clarity Ur Clear - [facility] Color Ur Yellow [id number] - [facility] Hgb Ur Ql Negative [id number] - [facility] Nitrite Ur Ql Negative - [facility] Glucose Ur Ql Negative - [facility] pH Ur 6pH 5 - 8 [facility] Leukocyte esterase Ur Ql Strip Negative - [facility] Base excess BldA Calc-sCnc 2mmol/L 0 - 2 [facility] SaO2 % BldA 98.5% Above high normal 95 - 98 [facility] pO2 BldA 98mmHg 80 - 105 [facility] pCO2 BldA 57mmHg Above high normal 35 - 45 [facility] Chantelle index Bld+IhG-Rto 50 [facility] HCO3 BldA-sCnc 26.5mmol/L Above high normal 22 - 26 [facility] pH BldA 7.32pH Below low normal 7.35 - 7.4 5 [facility] History of Medication Use Medication Directions Dispensed Refills Start Date End Date Status nicotine (NICODERM CQ) 14 mg/[address] 1 patch on the skin 1 (one) time each day at the same time. 5 active ibuprofen (ADVIL,MOTRIN) tablet 400 mg 400 mg, oral, Every 6 hours PRN, moderate pain, Starting on 04/04/25 at 1124, Administer with food or milk to decrease GI upset 5 active bisacodyL (DULCOLAX) suppository 10 mg 10 mg, rectal, Once, On Marybeth 04/01/25 at 0930, For 1 dose 5 04/01/20 completed insulin lispro injection 8 Units 8 Units, subcutaneous, Once, On Sat03/30/25 at 1815, For 1 dose 5 03/30/20 completed senna (SENOKOT) tablet 17.2 mg 17.2 mg (2 tablet), oral, Nightly, First dose on 03/28/25 at 2100 5 active predniSONE (DELTASONE) tablet 40 mg 40 mg, oral, Daily, First dose on Sat03/28/25 at 0900 03/29/20 aborted magnesium oxide (MAG-OX) tablet 400 mg 400 mg, oral, 2 times daily, First dose on Sat03/27/25 at 0900, For 4 doses 03/29/20 completed sodium chloride 0.45 % infusion 100 mL/hr, intravenous, Continuous, Starting on Sat03/26/25 at 1445, For 10 hours 03/27/20 completed dextrose 5 % and sodium chloride 0.9 % infusion 75 mL/hr, intravenous, Continuous, Starting on Sat03/26/25 at 0700, For 8 hours 03/26/20 completed insulin glargine (LANTUS) injection 12 Units 12 Units, subcutaneous, Once, On Marybeth 03/25/25 at 2230, For 1 dose 03/26/20 completed sodium chloride 0.9 % infusion 75 mL/hr, intravenous, Continuous, Starting on Sat03/25/25 at 201403/26/20 aborted atenoloL (TENORMIN) tablet 25 mg 25 mg, nasogastric tube, Daily, First dose (after last modification) on Sat03/26/25 at 0900 03/25/20 active insulin lispro injection 2-12 Units 2-12 Units, subcutaneous, 3 times daily before meals, First dose on Sat04/02/25 at 0800, Indication: Total Daily Dose (TDD) 40 - 80 units. Correction Scale: Moderate Dose Administer with meal and/or mealtime dose of insulin to correct high blood glucose If mealtime insulin dose not given (e.g. cass 03/25/20 active magnesium sulfate 2 gram/50 mL (4 %) IVPB 2 g 2 g, intravenous, at 25 mL/hr, Administer over 2 Hours, Once, On Marybeth 03/25/25 at 1030, For 1 dose 03/25/20 completed pantoprazole (PROTONIX) EC tablet 40 mg 40 mg, oral, Every morning before breakfast, First dose on Marybeth 03/25/25 at 1030, Do not crush, chew, or split. 5 03/25/20 25 aborted albuterol 2.5 mg /3 mL (0.083 %) nebulizer solution 2.5 mg 2.5 mg, nebulization, 4 times daily, First dose on [facility] 03/25/25 at 1400 5 active budesonide (PULMICORT) 0.5 mg/2 mL nebulizer solution 0.25 mg 0.25 mg, nebulization, Daily, First dose on [facility] 03/25/25 at 1400, Rinse mouth with water after use to reduce aftertaste and incidence of candidiasis. Do not swallow. 5 active dextrose 15 gram/60 mL oral solution 15 g 15 g, nasogastric tube, Every 15 min PRN, low blood sugar, hypoglycemia *Patient conscious AND able to drink and swallow safely*, Starting on Marybeth 03/25/25 at 1602 5 active dextrose 15 gram/60 mL oral solution 30 g 30 g, nasogastric tube, Every 15 min PRN, low blood sugar, hypoglycemia *Patient conscious AND able to drink and swallow safely*, Starting on Marybeth 03/25/25 at 1603 5 active lithium capsule 300 mg 300 mg, nasogastric tube, 3 times daily with meals, First dose (after last modification) on [facility] 03/25/25 at 1700 5 active melatonin tablet 6 mg 6 mg, nasogastric tube, Nightly PRN, insomnia, Starting on Marybeth 03/25/25 at 1603 5 active acetylcysteine (MUCOMYST) 100 mg/mL (10 %) solution 400 mg 400 mg (4 mL), nebulization, 2 times daily, First dose (after last modification) on Marybeth 03/25/25 at 2100 5 03/25/20 25 active cloZAPine (CLOZARIL) tablet 175 mg [Order 1 Start] Name: cloZAPine (CLOZARIL) tablet 175 mg Signed Summary: 175 mg, nasogastric tube, Daily, First dose (after last modification) on Sat03/26/25 at 0900, Has the home dose of cloZAPine and last date/time taken been confirmed? Yes, Has there been a break in cloZAPine therapy GREATER than 0503/25/20 active insulin glargine (LANTUS) injection 25 Units 25 Units, subcutaneous, Nightly, First dose on Sat03/23/25 at 2100, Notify provider: -If patient is currently or will become NPO -If TPN was or will be interrupted or discontinued -For approval to hold long acting insulin active pantoprazole (PROTONIX) injection 40 mg 40 mg, intravenous, Administer over 2 Minutes, Every 24 hours, First dose (after last modification) on Sat04/04/25 at 0130, Pantroprazole - IV push: Reconstitute powder for injection with 10 mL NS; final concentration: 4 mg/mL., Indication for IV Push Pantoprazole? Stress Ulcer Prophylaxis for patie 04/04/20 active mupirocin (BACTROBAN) 2 % ointment Each Nostril, 2 times daily, First dose on Sat03/22/25 at 2100, For 10 doses, [place] decolonization protocol, continue for a total of 10 doses or until transfer out of ICU. 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 ENTERAL TUBE ROUTE: If newly initiated enteral nutrition duration is over 5 days, hold enteral nutrition 03/25/20 active lithium capsule 300 mg 300 mg, oral, 3 times daily with meals, First dose (after last modification) on Sat03/24/25 at 1200 03/25/20 aborted loratadine (CLARITIN) tablet 5 mg 5 mg, nasogastric tube, Daily, First dose (after last modification) on Sat03/23/25 at 1030 5 03/24/20 aborted cloZAPine (CLOZARIL) tablet 125 mg 125 mg, oral, Once, On Sat03/23/25 at 1515, For 1 dose, Has the home dose of cloZAPine and last date/time taken been confirmed? Yes, Has there been a break in cloZAPine therapy GREATER than OR equal to 2 days? No 5 03/23/20 completed cloZAPine (CLOZARIL) tablet 50 mg 50 mg, nasogastric tube, Daily, First dose (after last modification) on Sat03/23/25 at 1030, Has the home dose of cloZAPine and last date/time taken been confirmed? Yes, Has there been a break in cloZAPine therapy GREATER than OR equal to 2 days? Yes 5 03/23/20 aborted fluPHENAZine (PROLIXIN) tablet 1 mg 1 mg, nasogastric tube, Daily, First dose (after last modification) on Sat03/23/25 at 1030 5 03/23/20 aborted enoxaparin (LOVENOX) injection 40 mg 40 mg, subcutaneous, Every 24 hours scheduled, First dose on Sat03/23/25 at 0900, Indication: VTE/PE Prophylaxis 5 active gabapentin (NEURONTIN) capsule 600 mg 600 mg, nasogastric tube, Every 8 hours scheduled, First dose on Sat03/23/25 at 1515 5 active sodium chloride 0.9 % flush 10 mL [Order 1 Start] Name: Insert peripheral IV Signed Summary: STAT, Once, On Sat03/22/25 at 1501, For 1 occurrence [Order 1 End] [Order 2 Start] Name: Maintain IV access Signed Summary: Until discontinued, Starting on Sat03/22/25 at 1501, Until Specified [Order 2 End] [Order 3 Start] Name: Saline lock 5 active insulin regular (HumuLIN R) injection 2-12 Units 2-12 Units, subcutaneous, 4 times daily before meals and nightly, First dose (after last modification) on Sat03/26/25 at 1845, Indication: Total Daily Dose (TDD) 40 - 80 units Correction Scale: Moderate Dose 05/04/02/20 aborted cefTRIAXone (ROCEPHIN) 2 g in sterile water 20 mL IV syringe 2 g, intravenous, at 400 mL/hr, Administer over 3 Minutes, Every 24 hours, First dose on Sat03/25/25 at 0900, For 4 days, Do not administer simultaneously with any calcium containing solutions via a Y-site in any patient., Indication: Pneumonia, Community Acquired 03/28/20 completed methylPREDNISolone sodium succ (SOLU-Medrol) injection 40 mg 40 mg, intravenous, Every 24 hours scheduled, First dose (after last modification) on Sat03/25/25 at 0900, Reconstitute each 40 mg vial with 1 mL sterile water for injection to a concentration of 40 mg/mL. 03/27/20 aborted chlorhexidine (PERIDEX) 0.12 % solution 15 mL 15 mL, Mouth/Throat, 2 times daily, First dose on Sat03/22/25 at 1600 03/26/20 aborted acetaminophen (TYLENOL) tablet 650 mg 650 mg, nasogastric tube, Every 6 hours PRN, mild pain, Starting on Marybeth 03/25/25 at 1602 03/25/20 active ipratropium-albuteroL (DUONEB) 0.5-2.5 mg/3 mL nebulizer solution 3 mL 3 mL, nebulization, Every 6 hours PRN, wheezing, Starting on Marybeth 03/25/25 at 1015 03/25/20 active polyethylene glycol (MIRALAX) packet 17 g 17 g, nasogastric tube, Daily, First dose (after last modification) on Sat03/26/25 at 0900, Bowel Regimen - for prevention of constipation 03/25/20 active midazolam (VERSED) injection 2 mg 2 mg, intravenous, Every 4 hours PRN, anxiety, sedation, Starting on Sat03/22/25 at 1514 03/24/20 aborted lactated Ringer's bolus 500 mL 500 mL, intravenous, at 500 mL/hr, Administer over 1 Hours, Once, On Sat03/22/25 at 1715, For 1 dose 05/12/202 5 05/12/20 25 completed dextrose (D50W) 50% injection 12.5 g 12.5 g, intravenous, Every 15 min PRN, low blood sugar, moderate hypoglycemia *Patient is Unconscious, NPO, unable to swallow: BG 54 - 69 mg/dl*, Starting on Sat03/22/25 at 1500 5 active dextrose (D50W) 50% injection 25 g 25 g, intravenous, Every 15 min PRN, low blood sugar, severe hypoglycemia *Patient is Unconscious, NPO, unable to swallow: BG LESS than 54 mg/dL*, Starting on Sat03/22/25 at 1500 5 active Glucagon HCl (rDNA) injection 1 mg 1 mg, intramuscular, Once as needed, low blood sugar, severe hypoglycemia, Starting on Sat03/22/25 at 1500, For 1 dose 5 active ondansetron ODT (ZOFRAN-ODT) disintegrating tablet 4 mg [Order 1 Start] Name: ondansetron ODT (ZOFRAN-ODT) disintegrating tablet 4 mg Signed Summary: 4 mg, oral, Every 8 hours PRN, vomiting, nausea, Starting on Sat03/22/25 at 1500, -Give IV if patient is unable to take orally. -If inadequate response within 30 minutes, proceed to next-line agent or conta 5 active fluPHENAZine decanoate (PROLIXIN) injection 25 mg 25 mg, intramuscular, Every 14 days, First dose on Sat03/29/25 at 0900, Caution: Complex administration instructions, see package insert or Drug Reference link 5 active fluticasone propionate (FLONASE) 50 mcg/actuation nasal spray Administer 1 spray into each nostril 2 (two) times a day. 5 active levothyroxine (SYNTHROID, LEVOTHROID) 175 mcg tablet Take 1 tablet (175 mcg total) by mouth 1 (one) time each day before breakfast. 5 active insulin glargine,hum.rec.anlog (Basaglar KwikPen U-100 Insulin) 100 unit/mL (3 mL) injection pen 0 Refills, Maintenance, 11/18/24 10:50:00 AM EST, Partial fill upon patient request if the prescription is for a schedule II opioid drug. 5 03/23/20 25 aborted cetirizine (ZyrTEC) 5 mg tablet Take 1 tablet (5 mg total) by mouth 1 (one) time each day. 5 active senna (SENOKOT) 8.6 mg tablet Take 2 tablets (17.2 mg total) by mouth 2 (two) times a day if needed for constipation. 5 active docusate sodium (COLACE) 100 mg capsule Take 1 capsule (100 mg total) by mouth 1 (one) time each day if needed for constipation. 4 active clonazePAM (KlonoPIN) tablet 0.5 mg 0.5 mg, nasogastric tube, Every 8 hours PRN, anxiety, Starting on Sat03/23/25 at 1444, HAZARDOUS Drug Precautions - Low Risk (Category A/NIOSH Group 3) Reproductive Risk Only: - Single pair of ASTM standard D6978 certified chemotherapy gloves - Eye protection (goggles or face shield) required only 4 active tamsulosin (FLOMAX) 24 hr capsule 0.4 mg 0.4 mg, nasogastric tube, Daily, First dose (after last modification) on Sat03/26/25 at 0900, For oral administration: capsules should be swallowed whole (Do not crush, chew, or open). For tube administration: open capsule and administer with water (granules should NOT be crushed). 3 03/25/20 25 active albuterol HFA (PROAIR HFA ; PROVENTIL HFA ; VENTOLIN HFA) 90 mcg/actuation inhaler Inhale 2 puffs by mouth 1 (one) time each day if needed for wheezing or shortness of breath. 3 active cloZAPine (CLOZARIL) 100 mg tablet Take 1 tablet (100 mg total) by mouth at bedtime. Take 1 tablet with 75 mg for a total of 175 mg in AM. Take 1 tablet (100 mg) nightly as well 3 active cloZAPine (CLOZARIL) 25 mg tablet Take 3 tablets (75 mg total) by mouth 1 (one) time each day. Take with 100 mg for a total of 175 mg in AM 3 active atenoloL (TENORMIN) 50 mg tablet Take 0.5 tablets (25 mg total) by mouth 1 (one) time each day. 3 active gabapentin (NEURONTIN) 600 mg tablet Take 1 tablet (600 mg total) by mouth 3 (three) times a day. 3 active Trelegy Ellipta 100-62.5-25 mcg inhaler Inhale 1 puff (100 mcg total) by mouth 1 (one) time each day. 3 03/23/20 aborted insulin detemir (Levemir FlexPen) 100 unit/mL (3 mL) injection pen Inject 25 Units under the skin 1 (one) time each day with dinner. 3 active metFORMIN (GLUCOPHAGE) 1,000 mg tablet Take 1 tablet (1,000 mg total) by mouth 2 (two) times a day with meals. 3 active insulin aspart (NovoLOG Flexpen U-100 Insulin) 100 unit/mL (3 mL) injection pen Inject 0-12 Units under the skin 3 (three) times a day before meals. <150- 0 units, 151 -200: 2 units, 201-250- 6 units, 251-300- 8 units, 301-350- 10 units, >350 - give 12 units and call PCP 3 active atorvastatin (LIPITOR) tablet 40 mg 40 mg, nasogastric tube, Nightly, First dose (after last modification) on Sat03/25/25 at 2100 3 03/25/20 active fluPHENAZine (PROLIXIN) 1 mg tablet Refills 0, Maintenance, 05/13/24 10:56:00 AM EDT, Partial fill upon patient request if the prescription is for a schedule II opioid drug. 3 03/23/20 aborted lithium (ESKALITH) 450 mg CR tablet Take 1 tablet (450 mg total) by mouth 2 times daily. 3 active Encounters Encounter Type Encounter Reason Primary Diagnosis Location Date Inpatient Bilateral Pneumonia Acute respir atory failure with hypoxia ([facility] V24, [facility] V28) [facility] 03/22/2025 Care Team Organization Name Specialty Phone Email Start Date End Da te [facility] 03/23/2025 [facility] 03/22/2025
[2025-04-28 18:27] LABS: Troponin-I High Sensitivity 448.5 ng/L (<3.5-35.0)
[2025-04-28] MEDS: Ketorolac Tromethamine 15 MG/ML VIAL IVPUSH (19:03)
[2025-04-28] MEDS: Morphine Sulfate 2 MG/ML CARTRIDGE IVPUSH (19:04)
[2025-04-28 19:35] LABS: Appearance Urine Clear; Color Urine Yellow; Glucose Urine UA Negative (Negative); Leukocyte Esterase Urine Small (1+) (Negative); Nitrite Urine Negative (Negative); UMIC TRIGGER UACC YES; Urine Blood Negative (Negative); Urine Ketones Trace mg/dL (Negative); Urine Protein 30 (1+) mg/dL (Neg-Trace)
[2025-04-28 19:40] LABS: Bacteria Urine None Seen (None Seen); RBC Urine 0-2 /HPF (0-2); UACC Culture Trigger YES
--- NOTE | 2025-04-28 20:40 | PHA.MEDREC ---
Pharmacy Consult ? Medication Reconciliation Pharmacy has completed the medication reconciliation. Tried to talk to patient however he was sleeping and didn't respond to name. Patient is noted to be a poor historian. There was a med list in patient chart however is was outdated. Called and left message for [facility] [phone] @ 8:20pm. Utilized claims to confirm what I could. Will have morning med rec team follow up.
--- NOTE | 2025-04-28 20:45 | MHC.EDTECH ---
This PCT was able to obtain a urine specimen by providing assistance with urinal. Myself and Jenniffer PCT then provided mona care to patient as well as placing a male purewick because he was found to be incontinent. Patient was repositioned and callbell placed within reach.
[2025-04-28 21:19] LABS: ABG Refer to POC result
--- NOTE | 2025-04-28 21:43 | P.HPHOSP_ITS ---
History of Present Illness Date of Service: 04/28/25 Attending physician on admission: Neena Hernandez Chief Complaint: Hypoxic Patient is a 59-year-old male with a past medical history significant for history TBI, schizophrenia, IDDM, hypothyroid, asthma/COPD over lap, BPH and HLD who presented to the ED after being found on the floor at his care home for an unknown period of time. The patient was hypoxic at 49% on room air but quickly improved with 15 L via non-rebreather. The patient is now maintaining at 97% with 3 L via OxyMask. The patient is a poor historian but does report a cough. He denies any fevers, chills, nausea, vomiting. She does report swallowing difficulties at baseline. He is unaware to determine the events leading up to him being found on the floor. The patient was hypotensive upon arrival and more lethargic than baseline per EMS. The patient also reports some wheezing but improvement with a breathing treatment and steroids. Review of Systems 2 Constitutional: Constitutional: Denies body ache(s), Denies chills, Reports fatigue, Denies fever(s) and Denies headache(s) Eyes: Eyes: Denies change in vision and Denies loss of vision ENT: Denies headache(s), Denies nasal congestion, Denies nasal discharge and Denies sore throat Cardiovascular: Cardiovascular: Denies chest pain, Denies rapid heart rate, Denies leg edema, Denies lightheadedness and Reports dyspnea Respiratory: Respiratory: Reports cough, Reports dyspnea and Reports wheezing Gastrointestinal: Gastrointestinal: Denies abdominal pain, Denies diarrhea, Denies nausea and Denies vomiting Genitourinary: Genitourinary: Denies difficulty urinating, Denies dysuria and Denies urinary urgency Musculoskeletal: Musculoskeletal: Denies myalgias Integumentary/Breasts: Skin/Breast: Denies rash Neurologic: Denies confusion, Denies headache(s) and Denies loss of vision Psychiatric: Psychiatric: Denies confusion Endocrine: Endocrine: Reports fatigue Hematologic/Lymphatic: Hematologic/Lymphatic: Denies easy bleeding and Denies easy bruising Allergic/Immunologic: Allergic/Immunologic: Reports wheezing PMFSH Medical History Fall Encounter for staple removal Routine medical exam Hypothyroidism Diabetes mellitus type 2 in nonobese Hyperlipidemia Personal history of nicotine dependence Rash Loculated pleural effusion (~10/2020) Asbestos-induced pleural plaque Traumatic brain injury Schizophrenia HTN (hypertension) COPD (chronic obstructive pulmonary disease) Asthma Surgical History Status post small bowel resection Social History Household Members: Caregiver Household Members Other:: lives in care home Housing: Other Housing Other:: care home Do you presently have visiting nurse or other home services: No Alcohol intake: never Comment: Not wearing non-skid socks provided. Encouraged compliance with this. Patient Tobacco Use Status: Current everyday Tobacco user Tobacco use type: Cigarette and Cigar Cigarette Packs Per Day: 1 Cigarettes Per Day: 20.0 Years Smoked: 40 Smoked in Last 30 Days: No e-Cigarette/Vaping Use: Currently Using Second Hand Smoke Exposure: Yes Use of substances other than those prescribed or required for medical reasons: No Substance Use Type: Marijuana Advance Directives: No Advance Directives Information Provided: No service: No Current occupational status: disabled Sexual orientation: Unable to collect Narrative: resides in a care home Meds Allergies Allergy/AdvReac Type Severity Reaction Status Date / Time amoxicillin (AMOXICILLIN) Allergy Intermediate SKIN RASH Verified 04/28/25 15:12 egg (EGGS) Allergy Intermediate HIVES, Verified 08/06/24 13:01 VOMITING Penicillins (PENICILLINS) Allergy Intermediate SKIN RASH Verified 08/06/24 13:01 Sulfa (Sulfonamide Allergy Intermediate SKIN RASH Verified 08/06/24 13:01 Antibiotics) (SULFA (SULFONAMIDE ANTIBIOTICS)) trimethoprim (TRIMETHOPRIM) Allergy Intermediate SKIN RASH Verified 08/06/24 13:01 penicillin V Allergy Unknown Unknown Verified 08/06/24 13:01 haloperidol (From Haldol) Allergy Unknown Verified 08/06/24 13:01 methylprednisolone (From Allergy Unknown Verified 08/06/24 13:01 Solu-Medrol) penicillin Allergy Unknown Unknown Uncoded 04/04/24 00:13 sultamicillin Allergy Unknown Unknown Uncoded 04/04/24 00:13 trimethoprim Allergy Unknown Unknown Uncoded 04/04/24 00:13 Active Medications: Current Medications Acetaminophen (Acetaminophen 325 Mg Tablet) 975 mg PO Q6H PRN PRN Reason: Pain, Mild 1-3,fever,headache Albuterol/Ipratropium (Albuterol/Iprat 2.5/0.5mg 3 Ml Ampul.Neb) 3 ml INHALE RQ4H WHILE AWAKE [facility] Calcium Carbonate (Calcium Carbonate 750 Mg Tab.Chew) 750 mg PO Q4H PRN PRN Reason: Heartburn Ceftriaxone Sodium (Ceftriaxone Sodium 1 Gm Vial) 1 gm IVPUSH Q24H [facility] Dextrose (Dextrose 50 % 25 Gm/50 Ml Syringe) 25 gm IVPUSH Q15M PRN; Protocol PRN Reason: per Hypoglycemia Standing Ord. Enoxaparin Sodium (Enoxaparin Sodium 40 Mg/0.4 Ml Syringe) 40 mg SUBCUT Q24H [facility] Glucose (Glucose Gel 15 Gm Gel..Gram.) 15 gm PO Q15M PRN; Protocol PRN Reason: per Hypoglycemia Standing Ord. Metronidazole (Flagyl) 500 mg in 100 mls @ 100 mls/hr IV Q8H [facility] Insulin Human Lispro (Insulin Lispro 100 Unit/Ml 3 Ml Vial) 0 unit SUBCUT QIDACHS [facility]; Protocol Magnesium Hydroxide (Milk Of Magnesia 30 Ml Oral.Susp) 30 ml PO DAILY PRN PRN Reason: Constipation Melatonin (Melatonin 3 Mg Tablet) 6 mg PO BEDTIME PRN PRN Reason: Insomnia Methylprednisolone Sodium Succinate (Methylprednisolone Sod Succ 40 Mg Vial) 40 mg IVPUSH Q12H [facility] Nicotine (Nicotine 21 Mg Patch.Td24) 21 mg TRANSDERMA DAILY [facility] Oxycodone HCl (Oxycodone Hcl Immed Release 5 Mg Tablet) 5 mg PO Q6H PRN PRN Reason: Pain, Severe (Pain Scale 7-10) Sodium Chloride (0.9 % Sodium Chloride Flush 3 Ml Syringe) 3 ml IVFLUSH QSHIFT [facility] Tramadol HCl (Tramadol Hcl 50 Mg Tablet) 50 mg PO Q6H PRN PRN Reason: Pain, Moderate(Pain Scale 4-6) Home Medications ?Medication ?Instructions ?Recorded ?Confirmed ?Last Taken ?Type insulin lispro 100 unit/mL See Protocol subcut TIDAC 0 03/02/24 04/04/24 03/02/24 17:07 History subcutaneous solution (Humalog U-100 Insulin) insulin glargine 100 unit/mL 15 unit subcut BEDTIME 04/04/24 Unknown History subcutaneous solution atenolol 25 mg tablet 25 mg PO DAILY 04/28/2504/11 Unknown History cetirizine 5 mg tablet 5 mg PO DAILY 04/28/2504/28 Unknown History levothyroxine 175 mcg tablet 175 mcg PO DAILY 04/28/25 04/28/25 Unknown History Physical Exam 2 Vital Signs and Narrative: Vital Signs: Last Vital Signs Temp 98.2 F 04/28/25 21:36 Pulse 78 04/28/25 19:38 Resp 21 H 04/28/25 19:38 BP 110/51 L 04/28/25 19:38 Pulse Ox 93 04/28/25 21:36 O2 Del Method Oxymask 04/28/25 21:36 O2 Flow Rate 3 04/28/25 19:38 BMI result Body Mass Index 21.7 General: AOx3, no acute distress Resp: rhonchorous throughout, no crackles or wheezing. CVS: S1, S2, RRR GI: +BS, NT, no distention Skin: Warm, dry Neuro: Cranial nerves II-XII grossly intact bilaterally. Motor grossly intact bilaterally Extremities: No LE edema Psych: Appropriate affect ?slight confusion, states he has what the government gave us Const: General: No confusion Orientation/consciousness: No confusion Neuro: General: No confusion Results Labs 04/28/25 15:56 04/28/25 15:56 Labs: Laboratory Results - last 24 hr 04/28/25 04/28/25 04/28/25 14:59 15:19 15:56 MCV 84.5 MCH 23.6 L MCHC 27.9 L RDW 20.6 H Plt Count 238 D MPV 9.2 L Immature Gran % (Auto) 0.2 Neut % (Auto) 77.3 H Lymph % (Auto) 13.0 L [place] % (Auto) 8.8 Eos % (Auto) 0.1 Baso % (Auto) 0.6 Lymph # (Auto) 1.2 [place] # (Auto) 0.8 Eos # (Auto) 0.0 Baso # (Auto) 0.1 Abs Immat Gran (auto) 0.02 Absolute Neuts (auto) 7.3 Absolute Nucleated RBC 0.000 Nucleated RBC % (auto) 0.0 O2 Saturation 99.0 ABG pH at Pt Temp 7.36 ABG pCO2 at Pt Temp 60 H* ABG pO2 at Pt Temp 114 H ABG HCO3 35 H ABG Base Excess (Actual) 7.7 VBG pH VBG pCO2 VBG pO2 VBG HCO3 VBG O2 Saturation VBG Base Excess Anion Gap 12 Estim Creat Clear Calc 97.1 Estimated GFR > 60 Random Glucose 88 Lactic Acid 1.7 Calcium 8.5 D Total Bilirubin 0.3 Direct Bilirubin 0.2 AST 26 ALT 10 Alkaline Phosphatase 73 Total Creatine Kinase 426 H Troponin I High Sens 423.9 H* D B-Natriuretic Peptide 301 H Total Protein 6.1 L Albumin 3.4 L Lipase 4 L Urine Color Urine Appearance Urine pH Ur Specific [place] Urine Protein Urine Glucose (UA) Urine Ketones Urine Blood Urine Nitrite Ur Leukocyte Esterase Urine RBC Urine WBC Ur Squamous Epith Cells Urine Bacteria Hyaline Casts Influenza Type A (PCR) NEGATIVE Influenza Type B (PCR) NEGATIVE RSV RNA Qual (PCR) NEGATIVE SARS-CoV-2 RNA (RT-PCR) NEGATIVE 04/28/25 04/28/25 04/28/25 16:02 17:53 19:23 MCV MCH MCHC RDW Plt Count MPV Immature Gran % (Auto) Neut % (Auto) Lymph % (Auto) [place] % (Auto) Eos % (Auto) Baso % (Auto) Lymph # (Auto) [place] # (Auto) Eos # (Auto) Baso # (Auto) Abs Immat Gran (auto) Absolute Neuts (auto) Absolute Nucleated RBC Nucleated RBC % (auto) O2 Saturation ABG pH at Pt Temp ABG pCO2 at Pt Temp ABG pO2 at Pt Temp ABG HCO3 ABG Base Excess (Actual) VBG pH 7.39 VBG pCO2 50 VBG pO2 56 VBG HCO3 30 H VBG O2 Saturation 84.0 VBG Base Excess 4.5 Anion Gap Estim Creat Clear Calc Estimated GFR Random Glucose Lactic Acid Calcium Total Bilirubin Direct Bilirubin AST ALT Alkaline Phosphatase Total Creatine Kinase Troponin I High Sens 448.5 H* B-Natriuretic Peptide Total Protein Albumin Lipase Urine Color Yellow Urine Appearance Clear Urine pH 6.0 Ur Specific [place] 1.020 Urine Protein 30 (1+) H Urine Glucose (UA) Negative Urine Ketones Trace Urine Blood Negative Urine Nitrite Negative Ur Leukocyte Esterase Small (1+) H Urine RBC 0-2 Urine WBC 11-20 H Ur Squamous Epith Cells 3-5 Urine Bacteria None Seen Hyaline Casts 3-5 Influenza Type A (PCR) Influenza Type B (PCR) RSV RNA Qual (PCR) SARS-CoV-2 RNA (RT-PCR) Imaging Radiologist's Impressions: Impressions Chest X-Ray 04/28/25 15:46 IMPRESSION: Patchy airspace opacities in the right lower lung zone, left mid and lower lung zones, concerning for pneumonia. Electronically signed by: Rolando Winter MD 04/28/2025 04:37 PM EDT RP Assessment and Plan (1) Acute hypoxemic respiratory failure: Status: Acute (2) Bilateral pneumonia: Status: Acute (3) Acute exacerbation of COPD with asthma: Status: Acute (4) Elevated troponin: Status: Acute (5) Tobacco use disorder: Status: Acute Plan Patient is a 59-year-old male with a past medical history significant for history TBI, schizophrenia, IDDM, hypothyroid, asthma/COPD over lap, BPH and HLD who presented to the ED after being found on the floor at his care home for an unknown period of time. Acute hypoxic respiratory failure secondary to pneumonia, likely aspiration - WBC normal, tachypneic, no fever, lactic acid normal, blood cultures x2 pending, no sepsis - chest x-ray with multilobar pneumonia - head CT and C-spine CT negative due to unwitnessed fall - EKG nonischemic, normal sinus rhythm - troponin elevated at 423, 448 on repeat, likely secondary to hypoxia - CPK 426, no rhabdo - BNP 301, no evidence of pulmonary edema or lower extremity edema - d-dimer ordered, if elevated will order CTA to r/o PE - started on ceftriaxone and doxycycline in ED, switch to ceftriaxone and Flagyl due to concern for aspiration pneumonia - nursing bedside swallow - NPO pending bedside swallow results - monitor CBC and BMP - titrate oxygen as needed Acute asthma/COPD overlap exacerbation - patient reports wheezing and improvement with breathing treatments - continue DuoNebs q.4h while awake - Solu-Medrol 40 mg b.i.d. Elevated troponin -- secondary to hypoxia - 423 initially, 448 on repeat - EKG nonischemic - monitor on tele Tobacco use disorder - nicotine patch - smoking cessation encouraged Schizophrenia - continue home meds IDDM - sliding scale insulin - diabetic diet when appropriate - pharmacist unable to confirm insulin use at care home, await follow-up and morning. Was taking Lantus 26 units q.h.s. a previous admission Hypothyroid - continue levothyroxine BPH - continue home meds HLD - continue home meds Med rec not complete upon admission, pharmacists unable to contact her home for confirmation at this time Full code VTE prophylaxis: Lovenox Patient with acute hypoxic respiratory failure secondary to likely aspiration pneumonia complicated by COPD/asthma overlap exacerbation as well as elevated troponin, requiring admission for at least 2 midnights stay for IV antibiotics, steroids, breathing treatments and monitoring. Quality Stroke Does the patient have a stroke diagnosis?: No VTE Prior VTE?: No VTE Risk Level:: Medical - moderate - high VTE Device Contraindication: Treatment Not Indicated VTE Drug Contraindication: N/A - Med Ordered
[2025-04-28] MEDS: Nicotine 21 MG PATCH.TD24 TRANSDERMA (22:00)
[2025-04-28 22:01] LABS: D Dimer High Sensitivity 259 NG/ML
[2025-04-28] MEDS: metroNIDAZOLE/NS 500 MG/100 ML PIGGYBACK 100 MG IV (22:40)
[2025-04-28] MEDS: Enoxaparin Sodium 40 MG/0.4 ML SYRINGE SUBCUT (22:40)
[2025-04-28] MEDS: 0.9 % Sodium Chloride Flush 3 ML SYRINGE IVFLUSH (23:50)
[2025-04-29] VITALS (8 sets, daily range): BP systolic 111–131; BP diastolic 48–62; PULSE 66–82; RESP 16–20; TEMP 36.3–37; O2SAT 92–94
[2025-04-29] MEDS: methylPREDNISolone Sod Succ 40 MG VIAL IVPUSH ×2 (03:51→15:55)
[2025-04-29 04:04] LABS: MANUAL DIFF FLAG NO
[2025-04-29 04:05] LABS: Basophils Percent Auto 0.1 % (0-2); Hematocrit 38.4 % (42.0-52.0); Hemoglobin 11.3 g/dl (14.0-18.0); Imm Gran Abs Auto 0.03 X10*3/uL (0.00-0.03); Imm Gran Pct Auto 0.4 % (0.0-0.4); Lymphocytes Absolute Auto 0.6 X10*3/uL (1.2-4.9); Lymphocytes Percent Auto 8.8 % (20-40); Mean Corpuscular HGB Conc 29.4 g/dl (31.0-36.0); Mean Corpuscular Volume 81.7 fL (80.0-98.0); Mean Platelet Volume 8.8 fL (9.4-12.4); Monocytes Absolute Auto 0.1 X10*3/uL (0.1-1.2); Neutrophils Absolute Auto 6.1 x10*3/uL (2.0-8.3); Neutrophils Percent Auto 89.7 % (45-73); Platelet Count 226 X10*3/uL (160-400); Red Cell Distribution Width 19.9 % (11.0-16.0); White Blood Count 6.8 X10*3/uL (4.8-10.8)
[2025-04-29 04:33] LABS: Troponin-I High Sensitivity 234.4 ng/L (<3.5-35.0)
[2025-04-29 04:38] LABS: Anion Gap 12 (12-20); Blood Urea Nitrogen 17 mg/dL (9-16); Calcium 8.5 mg/dL (8.4-10.2); Carbon Dioxide 27 mmol/L (22-29); Chloride 103 mmol/L (96-108); Creatinine Clr Calc Pharmacy 108.6; Estimated Glomerular Filt Rate > 60; Glucose Random 187 mg/dL (60-115); Potassium 4.8 mmol/L (3.3-5.1); Sodium 137 mmol/L (135-145)
[2025-04-29] MEDS: metroNIDAZOLE/NS 500 MG/100 ML PIGGYBACK 100 MG IV ×3 (06:01→22:57)
[2025-04-29] MEDS: iohexoL 350 MG/ML 100 ML INFUS..BTL 65 ML IV (06:34)
[2025-04-29 07:18] LABS: Glucose, Whole Blood 179 mg/dL (60-115)
[2025-04-29] MEDS: 0.9 % Sodium Chloride Flush 3 ML SYRINGE IVFLUSH ×3 (07:50→20:12)
[2025-04-29] MEDS: Insulin Lispro 100 UNIT/ML 3 ML VIAL SUBCUT ×4 (07:50→22:07)
[2025-04-29] MEDS: Nicotine 21 MG PATCH.TD24 TRANSDERMA (07:51)
[2025-04-29] MEDS: Acetaminophen 325 MG TABLET 975 MG PO (07:53)
[2025-04-29] MEDS: Albuterol/Iprat 2.5/0.5MG 3 ML AMPUL.NEB INHALE ×4 (08:21→19:53)
[2025-04-29 11:34] LABS: Glucose, Whole Blood 201 mg/dL (60-115)
--- NOTE | 2025-04-29 13:56 | MHC.CM.PN ---
Pt lives in a [facility] run half-way, he has staff . He is able to walk with out an assistive devise at baseline. He is able to complete ADL's with verbal cuing. He was at [facility] less than one month ago, and then transferred to [facility], and then was DC back to his half-way. Staff of half-way: Mckenna, Refractory Bricklayer: [phone], [place], clubhouse manager: [phone]. House phone: [phone], and nurse. Bouchra: [phone]. Pt. is in agreement with hospital staff talking to [facility] staff. He does not have a HCP, or guardian, he signs his own paperwork. CM will review IMM with pt. Nurse does report that he is confused at this time though. DCP is for him to return to half-way, but program staff said that he will have to be able to walk on his own in order to do that. DCP: TBD, FELICE to follow for DC needs.
[2025-04-29] MEDS: cefTRIAXone sodium 1 GM VIAL IVPUSH (15:55)
[2025-04-29 16:30] LABS: Glucose, Whole Blood 220 mg/dL (60-115)
--- NOTE | 2025-04-29 18:36 | P.PNIM_ITS ---
Subjective Subjective Date of Service: 04/30/25 Interval History: seen inf/u for aspiration PNA and hypoxia still hypoxic and oxygen Physical Exam 2 Vital Signs: Vital Signs: Last Vital Signs Temp 98.6 F 04/29/25 15:21 Pulse 82 04/29/25 15:21 Resp 20 04/29/25 15:21 BP 131/61 04/29/25 15:21 Pulse Ox 94 04/29/25 15:21 O2 Del Method Oxymask 04/29/25 15:21 O2 Flow Rate 0 04/29/25 15:21 BMI result Body Mass Index 19.6 Const: Other: General: AO X 3, no acute distress Resp: CTA bilateral CVS: S1,S2,RRR GI: +BS, NT, no distention Skin: No rash Neuro: motor grossly intact Psych: appropriate affect Objective Data Active Medications Acetaminophen (Acetaminophen 325 Mg Tablet) 975 mg PO Q6H PRN PRN Reason: Pain, Mild 1-3,fever,headache Last Admin: 04/29/25 07:53 Dose: 975 mg Documented By: COLIN Albuterol/Ipratropium (Albuterol/Iprat 2.5/0.5mg 3 Ml Ampul.Neb) 3 ml INHALE RQ4H WHILE AWAKE [facility] Last Admin: 04/29/25 14:57 Dose: 3 ml Documented By: ALLAN Calcium Carbonate (Calcium Carbonate 750 Mg Tab.Chew) 750 mg PO Q4H PRN PRN Reason: Heartburn Ceftriaxone Sodium (Ceftriaxone Sodium 1 Gm Vial) 1 gm IVPUSH Q24H [facility] Last Admin: 04/29/25 15:55 Dose: 1 gm Documented By: COLIN Dextrose (Dextrose 50 % 25 Gm/50 Ml Syringe) 25 gm IVPUSH Q15M PRN; Protocol PRN Reason: per Hypoglycemia Standing Ord. Enoxaparin Sodium (Enoxaparin Sodium 40 Mg/0.4 Ml Syringe) 40 mg SUBCUT Q24H [facility] Last Admin: 04/28/25 22:40 Dose: 40 mg Documented By: NITO Glucose (Glucose Gel 15 Gm Gel..Gram.) 15 gm PO Q15M PRN; Protocol PRN Reason: per Hypoglycemia Standing Ord. Metronidazole (Flagyl) 500 mg in 100 mls @ 100 mls/hr IV Q8H [facility] Last Infusion: 04/29/25 15:20 Dose: Infused Documented By: COLIN Insulin Human Lispro (Insulin Lispro 100 Unit/Ml 3 Ml Vial) 0 unit SUBCUT QIDACHS [facility]; Protocol Last Admin: 04/29/25 16:51 Dose: 4 unit Documented By: COLIN Magnesium Hydroxide (Milk Of Magnesia 30 Ml Oral.Susp) 30 ml PO DAILY PRN PRN Reason: Constipation Melatonin (Melatonin 3 Mg Tablet) 6 mg PO BEDTIME PRN PRN Reason: Insomnia Methylprednisolone Sodium Succinate (Methylprednisolone Sod Succ 40 Mg Vial) 40 mg IVPUSH Q12H [facility] Last Admin: 04/29/25 15:55 Dose: 40 mg Documented By: COLIN Nicotine (Nicotine 21 Mg Patch.Td24) 21 mg TRANSDERMA DAILY [facility] Last Admin: 04/29/25 07:51 Dose: 21 mg Documented By: COLIN Oxycodone HCl (Oxycodone Hcl Immed Release 5 Mg Tablet) 5 mg PO Q6H PRN PRN Reason: Pain, Severe (Pain Scale 7-10) Sodium Chloride (0.9 % Sodium Chloride Flush 3 Ml Syringe) 3 ml IVFLUSH QSHIFT [facility] Last Admin: 04/29/25 15:55 Dose: 3 ml Documented By: COLIN Tramadol HCl (Tramadol Hcl 50 Mg Tablet) 50 mg PO Q6H PRN PRN Reason: Pain, Moderate(Pain Scale 4-6) Labs 04/30/25 06:36 04/30/25 06:36 Labs: Laboratory Results - last 24 hr 04/28/25 04/28/25 04/28/25 15:56 19:23 21:49 MCV MCH MCHC RDW Plt Count MPV Immature Gran % (Auto) Neut % (Auto) Lymph % (Auto) [place] % (Auto) Eos % (Auto) Baso % (Auto) Lymph # (Auto) [place] # (Auto) Eos # (Auto) Baso # (Auto) Abs Immat Gran (auto) Absolute Neuts (auto) Absolute Nucleated RBC Nucleated RBC % (auto) D-Dimer High Sensitivty 259 Anion Gap Estim Creat Clear Calc Estimated GFR POC Glucose Random Glucose Calcium Total Creatine Kinase 426 H Troponin I High Sens Urine Color Yellow Urine Appearance Clear Urine pH 6.0 Ur Specific [place] 1.020 Urine Protein 30 (1+) H Urine Glucose (UA) Negative Urine Ketones Trace Urine Blood Negative Urine Nitrite Negative Ur Leukocyte Esterase Small (1+) H Urine RBC 0-2 Urine WBC 11-20 H Ur Squamous Epith Cells 3-5 Urine Bacteria None Seen Hyaline Casts 3-5 04/29/25 04/29/25 04/29/25 03:57 07:09 11:24 MCV 81.7 MCH 24.0 L MCHC 29.4 L RDW 19.9 H Plt Count 226 MPV 8.8 L Immature Gran % (Auto) 0.4 Neut % (Auto) 89.7 H Lymph % (Auto) 8.8 L [place] % (Auto) 1.0 L Eos % (Auto) 0.0 Baso % (Auto) 0.1 Lymph # (Auto) 0.6 L [place] # (Auto) 0.1 Eos # (Auto) 0.0 Baso # (Auto) 0.0 Abs Immat Gran (auto) 0.03 Absolute Neuts (auto) 6.1 Absolute Nucleated RBC 0.000 Nucleated RBC % (auto) 0.0 D-Dimer High Sensitivty Anion Gap 12 Estim Creat Clear Calc 108.6 Estimated GFR > 60 POC Glucose 179 H 201 H Random Glucose 187 H Calcium 8.5 Total Creatine Kinase Troponin I High Sens 234.4 H* Urine Color Urine Appearance Urine pH Ur Specific [place] Urine Protein Urine Glucose (UA) Urine Ketones Urine Blood Urine Nitrite Ur Leukocyte Esterase Urine RBC Urine WBC Ur Squamous Epith Cells Urine Bacteria Hyaline Casts 04/29/25 16:23 MCV MCH MCHC RDW Plt Count MPV Immature Gran % (Auto) Neut % (Auto) Lymph % (Auto) [place] % (Auto) Eos % (Auto) Baso % (Auto) Lymph # (Auto) [place] # (Auto) Eos # (Auto) Baso # (Auto) Abs Immat Gran (auto) Absolute Neuts (auto) Absolute Nucleated RBC Nucleated RBC % (auto) D-Dimer High Sensitivty Anion Gap Estim Creat Clear Calc Estimated GFR POC Glucose 220 H Random Glucose Calcium Total Creatine Kinase Troponin I High Sens Urine Color Urine Appearance Urine pH Ur Specific [place] Urine Protein Urine Glucose (UA) Urine Ketones Urine Blood Urine Nitrite Ur Leukocyte Esterase Urine RBC Urine WBC Ur Squamous Epith Cells Urine Bacteria Hyaline Casts Microbiology Microbiology Results: Microbiology 04/28/25 15:41 Blood Culture - Preliminary Blood - Venous No growth after 24 hours. 04/28/25 15:18 Blood Culture - Preliminary Blood - Venous No growth after 24 hours. 04/28/25 19:41 Urine Culture - Preliminary Urine clean catch - Clean Catch Midstream Culture too young to evaluate. Assessment and Plan (1) Acute hypoxemic respiratory failure: Status: Acute Plan Patient is a 59-year-old male with a past medical history significant for history TBI, schizophrenia, IDDM, hypothyroid, asthma/COPD over lap, BPH and HLD who presented to the ED after being found on the [facility] at his [facility] for an unknown period of time. 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 Acute asthma/COPD overlap exacerbation d/t above bronchodilators and steroid Elevated troponin -- secondary to hypoxia 423 initially, 448 on repeat EKG nonischemic monitor on tele Tobacco use disorder nicotine patch smoking cessation encouraged Schizophrenia continue home meds IDDM SSI Lantus at 10 bedtime, usually 15 restart metformin and glipizide tomorrow diabetic diet Hypothyroid continue levothyroxine HLD statin HTN atenolol schizophrenia lozapine, fluphenazine, lithium, clonazepam BPH tamsulosin tobacco abuse NRT--patch and gum Full code VTE prophylaxis: Lovenox Quality Stroke Does the patient have a stroke diagnosis?: No VTE Prior VTE?: No VTE Risk Level:: Medical - moderate - high VTE Device Contraindication: Treatment Not Indicated VTE Drug Contraindication: N/A - Med Ordered
--- NOTE | 2025-04-29 19:37 | HE.PHANOTE ---
Clozapine Called and spoke with [facility]ia from [facility]. Patient last received Clozaril on 04/28 in AM. Per patients nurse he takes 175 mg in the morning and 100 mg at bedtime.
[2025-04-29] MEDS: Insulin Glargine,Hum.rec.anlog 100 UNIT/ML 10 ML VIAL 10 UNIT SUBCUT (20:02)
[2025-04-29] MEDS: Lithium Carbonate ER 450 MG TABLET.ER PO (20:02)
[2025-04-29] MEDS: Atorvastatin Calcium 40 MG TABLET PO (20:02)
[2025-04-29] MEDS: Desmopressin Acetate 0.2 MG TABLET 0.1 MG PO (20:02)
[2025-04-29] MEDS: atenoloL 25 MG TABLET PO (20:02)
[2025-04-29] MEDS: fluPHENAZine HCl 1 MG TABLET PO (20:02)
[2025-04-29] MEDS: Tamsulosin HCL 0.4 MG CAPSULE PO (20:02)
[2025-04-29] MEDS: Gabapentin 600 MG TABLET PO (20:02)
[2025-04-29] MEDS: cloZAPine 100 MG TABLET PO (20:12)
[2025-04-29 20:47] LABS: Glucose, Whole Blood 303 mg/dL (60-115)
[2025-04-29] MEDS: Enoxaparin Sodium 40 MG/0.4 ML SYRINGE SUBCUT (22:56)
[2025-04-30] VITALS (11 sets, daily range): BP systolic 96–137; BP diastolic 50–60; PULSE 61–81; RESP 16–20; TEMP 36.5–36.9; O2SAT 92–100
[2025-04-30] MEDS: Levothyroxine Sodium 175 MCG TABLET PO (05:18)
[2025-04-30] MEDS: methylPREDNISolone Sod Succ 40 MG VIAL IVPUSH ×2 (05:18→15:47)
[2025-04-30] MEDS: metroNIDAZOLE/NS 500 MG/100 ML PIGGYBACK 100 MG IV ×3 (05:19→22:06)
[2025-04-30 07:03] LABS: Glucose, Whole Blood 204 mg/dL (60-115)
[2025-04-30 07:07] LABS: MANUAL DIFF FLAG NO
[2025-04-30 07:17] LABS: Basophils Percent Auto 0.2 % (0-2); Hematocrit 36.1 % (42.0-52.0); Hemoglobin 10.2 g/dl (14.0-18.0); Imm Gran Abs Auto 0.04 X10*3/uL (0.00-0.03); Imm Gran Pct Auto 0.5 % (0.0-0.4); Lymphocytes Absolute Auto 1.2 X10*3/uL (1.2-4.9); Lymphocytes Percent Auto 13.5 % (20-40); Mean Corpuscular HGB Conc 28.3 g/dl (31.0-36.0); Mean Corpuscular Hemoglobin 23.8 pg (27.0-33.0); Mean Corpuscular Volume 84.3 fL (80.0-98.0); Mean Platelet Volume 9.4 fL (9.4-12.4); Monocytes Absolute Auto 0.5 X10*3/uL (0.1-1.2); Monocytes Percent Auto 5.7 % (2-11); Neutrophils Absolute Auto 7.1 x10*3/uL (2.0-8.3); Neutrophils Percent Auto 80.1 % (45-73); Platelet Count 229 X10*3/uL (160-400); Red Blood Count 4.28 X10*6/uL (4.60-5.80); Red Cell Distribution Width 19.5 % (11.0-16.0); White Blood Count 8.8 X10*3/uL (4.8-10.8)
[2025-04-30] MEDS: oxyCODONE HCl Immed Release 5 MG TABLET PO ×2 (07:24→14:11)
[2025-04-30] MEDS: Nicotine 21 MG PATCH.TD24 TRANSDERMA (07:25)
[2025-04-30] MEDS: Insulin Lispro 100 UNIT/ML 3 ML VIAL SUBCUT ×3 (07:25→21:05)
[2025-04-30] MEDS: Lithium Carbonate ER 450 MG TABLET.ER PO ×2 (07:26→20:37)
[2025-04-30] MEDS: glipiZIDE XL 2.5 MG TAB.ER.24 PO (07:26)
[2025-04-30] MEDS: 0.9 % Sodium Chloride Flush 3 ML SYRINGE IVFLUSH ×3 (07:26→20:39)
[2025-04-30] MEDS: Loratadine 10 MG TABLET PO (07:27)
[2025-04-30] MEDS: cloZAPine 25 MG TABLET 75 MG PO (07:27)
[2025-04-30] MEDS: atenoloL 25 MG TABLET PO (07:27)
[2025-04-30] MEDS: Gabapentin 600 MG TABLET PO ×3 (07:27→20:34)
[2025-04-30] MEDS: cloZAPine 100 MG TABLET PO ×2 (07:29→20:34)
[2025-04-30] MEDS: Fluticasone Propionate Nasal 16 GM SPRAY 1 SPRAY NOSTRIL-B (07:29)
[2025-04-30] MEDS: metFORMIN HCl 1,000 MG TABLET 1000 MG PO ×2 (07:32→17:01)
[2025-04-30 07:51] LABS: Blood Urea Nitrogen 17 mg/dL (9-16); Calcium 8.7 mg/dL (8.4-10.2); Creatinine Clr Calc Pharmacy 121.1; Estimated Glomerular Filt Rate > 60; Glucose Random 210 mg/dL (60-115)
[2025-04-30 07:59] LABS: Anion Gap 9 (12-20); Carbon Dioxide 32 mmol/L (22-29); Chloride 100 mmol/L (96-108); Potassium 4.8 mmol/L (3.3-5.1); Sodium 136 mmol/L (135-145)
[2025-04-30] MEDS: Fluticasone/Umeclidinium/Vilanterol 100/62.5/25 BLST.W.DEV 1 PUFF INHALE (08:29)
[2025-04-30] MEDS: Albuterol/Iprat 2.5/0.5MG 3 ML AMPUL.NEB INHALE ×4 (08:29→19:05)
--- NOTE | 2025-04-30 10:34 | HO.PM.IMPN ---
Subjective Subjective Date of Service: 04/30/25 Interval History: seen inf/u for aspiration PNA and hypoxia still hypoxic and oxygen but better o2 saturation Physical Exam Vital Signs: Vital Signs: Last Vital Signs Temp 98.0 F 04/30/25 07:10 Pulse 74 04/30/25 08:32 Resp 16 04/30/25 08:32 BP 96/51 L 04/30/25 07:10 Pulse Ox 98 04/30/25 07:10 O2 Del Method Oxymask 04/30/25 07:10 O2 Flow Rate 3 04/30/25 07:10 BMI result Body Mass Index 19.6 Const: Other: General: AO X 3, no acute distress Resp: CTA bilateral CVS: S1,S2,RRR GI: +BS, NT, no distention Skin: No rash Neuro: motor grossly intact Psych: appropriate affect Objective Data Active Medications Acetaminophen (Acetaminophen 325 Mg Tablet) 975 mg PO Q6H PRN PRN Reason: Pain, Mild 1-3,fever,headache Last Admin: 04/29/25 07:53 Dose: 975 mg Documented By: COLIN Albuterol/Ipratropium (Albuterol/Iprat 2.5/0.5mg 3 Ml Ampul.Neb) 3 ml INHALE RQ4H WHILE AWAKE [facility] Last Admin: 04/30/25 08:29 Dose: 3 ml Documented By: MISSAEL Atenolol (Atenolol 25 Mg Tablet) 25 mg PO DAILY [facility]; Protocol Last Admin: 04/30/25 07:27 Dose: 25 mg Documented By: DOE Atorvastatin Calcium (Atorvastatin Calcium 40 Mg Tablet) 40 mg PO BEDTIME [facility] Last Admin: 04/29/25 20:02 Dose: 40 mg Documented By: KARY Calcium Carbonate (Calcium Carbonate 750 Mg Tab.Chew) 750 mg PO Q4H PRN PRN Reason: Heartburn Ceftriaxone Sodium (Ceftriaxone Sodium 1 Gm Vial) 1 gm IVPUSH Q24H [facility] Last Admin: 04/29/25 15:55 Dose: 1 gm Documented By: COLIN Clozapine (Clozapine 25 Mg Tablet) 75 mg PO DAILY [facility] Last Admin: 04/30/25 07:27 Dose: 75 mg Documented By: DOE Clozapine (Clozapine 100 Mg Tablet) 100 mg PO BID [facility] Last Admin: 04/30/25 07:29 Dose: 100 mg Documented By: DOE Desmopressin Acetate (Desmopressin Acetate 0.2 Mg Tablet) 0.1 mg PO BEDTIME [facility] Last Admin: 04/29/25 20:02 Dose: 0.1 mg Documented By: KARY Dextrose (Dextrose 50 % 25 Gm/50 Ml Syringe) 25 gm IVPUSH Q15M PRN; Protocol PRN Reason: per Hypoglycemia Standing Ord. Docusate Sodium (Docusate Sodium 100 Mg Capsule) 100 mg PO BID PRN PRN Reason: Constipation Enoxaparin Sodium (Enoxaparin Sodium 40 Mg/0.4 Ml Syringe) 40 mg SUBCUT Q24H [facility] Last Admin: 04/29/25 22:56 Dose: 40 mg Documented By: KARY Fluphenazine HCl (Fluphenazine Hcl 1 Mg Tablet) 1 mg PO BEDTIME [facility] Last Admin: 04/29/25 20:02 Dose: 1 mg Documented By: KARY Fluticasone Propionate (Fluticasone Propionate Nasal 16 Gm [place]) 1 spray NOSTRIL-B DAILY [facility] Last Admin: 04/30/25 07:29 Dose: 1 spray Documented By: DOE Fluticasone/Umeclidinium/Vilanterol (Fluticasone/Umeclidinium/Vilanterol 100/62.5/25 Blst.W.Dev) 1 puff INHALE RDAILY [facility] Last Admin: 04/30/25 08:29 Dose: 1 puff Documented By: MISSAEL Gabapentin (Gabapentin 600 Mg Tablet) 600 mg PO TID [facility] Last Admin: 04/30/25 07:27 Dose: 600 mg Documented By: DOE Glipizide (Glipizide Xl 2.5 Mg Tab.Er.24) 2.5 mg PO DAILY [facility] Last Admin: 04/30/25 07:26 Dose: 2.5 mg Documented By: DOE Glucose (Glucose Gel 15 Gm Gel..Gram.) 15 gm PO Q15M PRN; Protocol PRN Reason: per Hypoglycemia Standing Ord. Metronidazole (Flagyl) 500 mg in 100 mls @ 100 mls/hr IV Q8H [facility] Last Infusion: 04/30/25 06:22 Dose: Infused Documented By: KARY Insulin Glargine (Insulin Glargine,Hum.Rec.Anlog 100 Unit/Ml 10 Ml Vial) 10 unit SUBCUT BEDTIME [facility] Last Admin: 04/29/25 20:02 Dose: 10 unit Documented By: KARY Insulin Human Lispro (Insulin Lispro 100 Unit/Ml 3 Ml Vial) 0 unit SUBCUT QIDACHS [facility]; Protocol Last Admin: 04/30/25 07:25 Dose: 4 unit Documented By: DOE Levothyroxine Sodium (Levothyroxine Sodium 175 Mcg Tablet) 175 mcg PO DAILY@0630 [facility] Last Admin: 04/30/25 05:18 Dose: 175 mcg Documented By: KARY [place] Carbonate ([place] Carbonate Er 450 Mg Tablet.Er) 450 mg PO BID [facility] Last Admin: 04/30/25 07:26 Dose: 450 mg Documented By: DOE Loratadine (Loratadine 10 Mg Tablet) 10 mg PO DAILY [facility] Last Admin: 04/30/25 07:27 Dose: 10 mg Documented By: DOE Magnesium Hydroxide (Milk Of Magnesia 30 Ml Oral.Susp) 30 ml PO DAILY PRN PRN Reason: Constipation Melatonin (Melatonin 3 Mg Tablet) 6 mg PO BEDTIME PRN PRN Reason: Insomnia Metformin HCl (Metformin Hcl 1,000 Mg Tablet) 1,000 mg PO BIDWM [facility] Last Admin: 04/30/25 07:32 Dose: 1,000 mg Documented By: DOE Methylprednisolone Sodium Succinate (Methylprednisolone Sod Succ 40 Mg Vial) 40 mg IVPUSH Q12H [facility] Last Admin: 04/30/25 05:18 Dose: 40 mg Documented By: KARY Nicotine (Nicotine 21 Mg Patch.Td24) 21 mg TRANSDERMA DAILY [facility] Last Admin: 04/30/25 07:25 Dose: 21 mg Documented By: DOE Nicotine Polacrilex (Nicotine Polacrilex Lozenge 2 Mg Lozenge) 2 mg BUCCAL Q2H PRN PRN Reason: Nicotine Cravings Oxycodone HCl (Oxycodone Hcl Immed Release 5 Mg Tablet) 5 mg PO Q6H PRN PRN Reason: Pain, Severe (Pain Scale 7-10) Last Admin: 04/30/25 07:24 Dose: 5 mg Documented By: DOE Sodium Chloride (0.9 % Sodium Chloride Flush 3 Ml Syringe) 3 ml IVFLUSH QSHIFT [facility] Last Admin: 04/30/25 07:26 Dose: 3 ml Documented By: DOE Tamsulosin HCl (Tamsulosin Hcl 0.4 Mg Capsule) 0.4 mg PO BEDTIME [facility] Last Admin: 04/29/25 20:02 Dose: 0.4 mg Documented By: KARY Tramadol HCl (Tramadol Hcl 50 Mg Tablet) 50 mg PO Q6H PRN PRN Reason: Pain, Moderate(Pain Scale 4-6) Labs 04/30/25 06:36 04/30/25 06:36 Labs: Laboratory Results - last 24 hr 04/29/25 04/29/25 04/29/25 11:24 16:23 20:42 MCV MCH MCHC RDW Plt Count MPV Immature Gran % (Auto) Neut % (Auto) Lymph % (Auto) [place] % (Auto) Eos % (Auto) Baso % (Auto) Lymph # (Auto) [place] # (Auto) Eos # (Auto) Baso # (Auto) Abs Immat Gran (auto) Absolute Neuts (auto) Absolute Nucleated RBC Nucleated RBC % (auto) Anion Gap Estim Creat Clear Calc Estimated GFR POC Glucose 201 H 220 H 303 H Random Glucose Calcium Total Creatine Kinase 04/30/25 04/30/25 06:36 06:59 MCV 84.3 MCH 23.8 L MCHC 28.3 L RDW 19.5 H Plt Count 229 MPV 9.4 Immature Gran % (Auto) 0.5 H Neut % (Auto) 80.1 H Lymph % (Auto) 13.5 L [place] % (Auto) 5.7 Eos % (Auto) 0.0 Baso % (Auto) 0.2 Lymph # (Auto) 1.2 [place] # (Auto) 0.5 Eos # (Auto) 0.0 Baso # (Auto) 0.0 Abs Immat Gran (auto) 0.04 H Absolute Neuts (auto) 7.1 Absolute Nucleated RBC 0.000 Nucleated RBC % (auto) 0.0 Anion Gap 9 L Estim Creat Clear Calc 121.1 Estimated GFR > 60 POC Glucose 204 H Random Glucose 210 H Calcium 8.7 Total Creatine Kinase 279 H Microbiology Microbiology Results: Microbiology 04/28/25 15:41 Blood Culture - Preliminary Blood - Venous No growth after 24 hours. 04/28/25 15:18 Blood Culture - Preliminary Blood - Venous No growth after 24 hours. 04/28/25 19:41 Urine Culture - Preliminary Urine clean catch - Clean Catch Midstream Culture too young to evaluate. Assessment and Plan (1) Acute hypoxemic respiratory failure: Status: Acute Plan Patient is a 59-year-old male with a past medical history significant for history TBI, schizophrenia, IDDM, hypothyroid, asthma/COPD over lap, BPH and HLD who presented to the ED after being found [facility] the floor at his [facility] for an unknown period of time. 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 Acute asthma/COPD overlap exacerbation d/t above bronchodilators and steroid Elevated troponin -- secondary to hypoxia 423 initially, 448 on repeat EKG nonischemic monitor on tele Tobacco use disorder nicotine patch smoking cessation encouraged Schizophrenia continue home meds IDDM SSI Lantus at 10 bedtime, usually 15 restarted metformin and glipizide today diabetic diet Hypothyroid continue levothyroxine HLD statin HTN atenolol schizophrenia lozapine, fluphenazine, lithium, clonazepam BPH tamsulosin Chronic pain, continue home pain meds tobacco abuse NRT--patch and gum Full code VTE prophylaxis: Lovenox Quality Stroke Does the patient have a stroke diagnosis?: No VTE Prior VTE?: No VTE Risk Level:: Medical - moderate - high VTE Device Contraindication: Treatment Not Indicated VTE Drug Contraindication: N/A - Med Ordered
[2025-04-30 10:55] LABS: Glucose, Whole Blood 246 mg/dL (60-115)
--- NOTE | 2025-04-30 11:16 | MHC.CM.PN ---
EMR REVIEWED, HYPOXIC RESP FAILURE/PNA, PER HOSPITALIST PT WILL REMAIN INPT THROUGH W/E AND PLAN TO WEAN PT OFF O2, PLAN CONT'S TO BE FOR PT TO RETURN TO W/[facility]UMP OF [facility] ONCE MEDICALLY CLEARED, NURSE JADE UPDATED [phone], NO ANSWER AND DETAILED MESSAGE LEFT, CM WILL CONT TO FOLLOW DC NEEDS.
[2025-04-30] MEDS: cefTRIAXone sodium 1 GM VIAL IVPUSH (15:47)
[2025-04-30 16:11] LABS: Glucose, Whole Blood 96 mg/dL (60-115)
[2025-04-30] MEDS: Enoxaparin Sodium 40 MG/0.4 ML SYRINGE SUBCUT (20:34)
[2025-04-30] MEDS: Insulin Glargine,Hum.rec.anlog 100 UNIT/ML 10 ML VIAL 10 UNIT SUBCUT (20:35)
[2025-04-30] MEDS: fluPHENAZine HCl 1 MG TABLET PO (20:36)
[2025-04-30] MEDS: Desmopressin Acetate 0.2 MG TABLET 0.1 MG PO (20:36)
[2025-04-30] MEDS: Tamsulosin HCL 0.4 MG CAPSULE PO (20:37)
[2025-04-30] MEDS: Atorvastatin Calcium 40 MG TABLET PO (20:38)
[2025-04-30 20:43] LABS: Glucose, Whole Blood 248 mg/dL (60-115)
[2025-05-01] VITALS (9 sets, daily range): BP systolic 95–139; BP diastolic 22–72; PULSE 62–86; RESP 16–19; TEMP 36.2–37; O2SAT 86–100
[2025-05-01] MEDS: methylPREDNISolone Sod Succ 40 MG VIAL IVPUSH ×2 (04:03→16:05)
[2025-05-01] MEDS: Levothyroxine Sodium 175 MCG TABLET PO (05:33)
[2025-05-01] MEDS: metroNIDAZOLE/NS 500 MG/100 ML PIGGYBACK 100 MG IV ×3 (05:33→20:50)
[2025-05-01 07:21] LABS: MANUAL DIFF FLAG NO
[2025-05-01 07:25] LABS: Basophils Percent Auto 0.1 % (0-2); Hematocrit 38.3 % (42.0-52.0); Hemoglobin 10.8 g/dl (14.0-18.0); Imm Gran Abs Auto 0.06 X10*3/uL (0.00-0.03); Imm Gran Pct Auto 0.7 % (0.0-0.4); Lymphocytes Absolute Auto 0.8 X10*3/uL (1.2-4.9); Lymphocytes Percent Auto 8.5 % (20-40); Mean Corpuscular HGB Conc 28.2 g/dl (31.0-36.0); Mean Corpuscular Hemoglobin 23.9 pg (27.0-33.0); Mean Corpuscular Volume 84.9 fL (80.0-98.0); Mean Platelet Volume 9.3 fL (9.4-12.4); Monocytes Absolute Auto 0.3 X10*3/uL (0.1-1.2); Monocytes Percent Auto 3.4 % (2-11); Neutrophils Absolute Auto 7.9 x10*3/uL (2.0-8.3); Neutrophils Percent Auto 87.3 % (45-73); Platelet Count 223 X10*3/uL (160-400); Red Blood Count 4.51 X10*6/uL (4.60-5.80); Red Cell Distribution Width 19.1 % (11.0-16.0)
[2025-05-01 07:27] LABS: Glucose, Whole Blood 204 mg/dL (60-115)
[2025-05-01 07:38] LABS: Anion Gap 7 (12-20); Blood Urea Nitrogen 17 mg/dL (9-16); Calcium 8.7 mg/dL (8.4-10.2); Carbon Dioxide 34 mmol/L (22-29); Chloride 100 mmol/L (96-108); Creatinine Clr Calc Pharmacy 119.2; Estimated Glomerular Filt Rate > 60; Glucose Random 214 mg/dL (60-115); Potassium 4.5 mmol/L (3.3-5.1); Sodium 136 mmol/L (135-145)
[2025-05-01] MEDS: Insulin Lispro 100 UNIT/ML 3 ML VIAL SUBCUT ×3 (08:12→20:50)
[2025-05-01] MEDS: cloZAPine 25 MG TABLET 75 MG PO (08:13)
[2025-05-01] MEDS: Loratadine 10 MG TABLET PO (08:13)
[2025-05-01] MEDS: Gabapentin 600 MG TABLET PO ×3 (08:13→20:51)
[2025-05-01] MEDS: glipiZIDE XL 2.5 MG TAB.ER.24 PO (08:13)
[2025-05-01] MEDS: Lithium Carbonate ER 450 MG TABLET.ER PO ×2 (08:13→20:51)
[2025-05-01] MEDS: cloZAPine 100 MG TABLET PO ×2 (08:13→20:51)
[2025-05-01] MEDS: metFORMIN HCl 1,000 MG TABLET 1000 MG PO ×2 (08:13→16:05)
[2025-05-01] MEDS: atenoloL 25 MG TABLET PO (08:13)
[2025-05-01] MEDS: Fluticasone Propionate Nasal 16 GM SPRAY 1 SPRAY NOSTRIL-B (08:19)
[2025-05-01] MEDS: Nicotine 21 MG PATCH.TD24 TRANSDERMA (08:20)
[2025-05-01] MEDS: 0.9 % Sodium Chloride Flush 3 ML SYRINGE IVFLUSH ×3 (08:21→21:04)
[2025-05-01 11:15] LABS: Glucose, Whole Blood 213 mg/dL (60-115)
[2025-05-01] MEDS: Albuterol/Iprat 2.5/0.5MG 3 ML AMPUL.NEB INHALE (11:17)
--- NOTE | 2025-05-01 11:59 | HO.PM.IMPN ---
Subjective Subjective Date of Service: 05/01/25 Interval History: seen inf/u for aspiration PNA and hypoxia still hypoxic but using less O2, i noted episodes of cough while eating Physical Exam Vital Signs: Vital Signs: Last Vital Signs Temp 97.1 F 05/01/25 07:32 Pulse 64 05/01/25 11:20 Resp 16 05/01/25 11:20 BP 115/54 L 05/01/25 07:32 Pulse Ox 99 05/01/25 11:40 O2 Del Method Oxymask 05/01/25 11:40 O2 Flow Rate 2 05/01/25 11:40 BMI result Body Mass Index 19.6 Const: Other: General: AO X 3, no acute distress Resp: CTA bilateral CVS: S1,S2,RRR GI: +BS, NT, no distention Skin: No rash Neuro: motor grossly intact Psych: appropriate affect Objective Data Active Medications Acetaminophen (Acetaminophen 325 Mg Tablet) 975 mg PO Q6H PRN PRN Reason: Pain, Mild 1-3,fever,headache Last Admin: 04/29/25 07:53 Dose: 975 mg Documented By: COLIN Albuterol/Ipratropium (Albuterol/Iprat 2.5/0.5mg 3 Ml Ampul.Neb) 3 ml INHALE RQ4H WHILE AWAKE [facility] Last Admin: 05/01/25 11:17 Dose: 3 ml Documented By: NASIM Atenolol (Atenolol 25 Mg Tablet) 25 mg PO DAILY [facility]; Protocol Last Admin: 05/01/25 08:13 Dose: 25 mg Documented By: BRYAN Atorvastatin Calcium (Atorvastatin Calcium 40 Mg Tablet) 40 mg PO BEDTIME [facility] Last Admin: 04/30/25 20:38 Dose: 40 mg Documented By: SULLY Calcium Carbonate (Calcium Carbonate 750 Mg Tab.Chew) 750 mg PO Q4H PRN PRN Reason: Heartburn Ceftriaxone Sodium (Ceftriaxone Sodium 1 Gm Vial) 1 gm IVPUSH Q24H [facility] Last Admin: 04/30/25 15:47 Dose: 1 gm Documented By: MILAD Clozapine (Clozapine 25 Mg Tablet) 75 mg PO DAILY [facility] Last Admin: 05/01/25 08:13 Dose: 75 mg Documented By: BRYAN Clozapine (Clozapine 100 Mg Tablet) 100 mg PO BID [facility] Last Admin: 05/01/25 08:13 Dose: 100 mg Documented By: BRYAN Desmopressin Acetate (Desmopressin Acetate 0.2 Mg Tablet) 0.1 mg PO BEDTIME [facility] Last Admin: 04/30/25 20:36 Dose: 0.1 mg Documented By: SULLY Dextrose (Dextrose 50 % 25 Gm/50 Ml Syringe) 25 gm IVPUSH Q15M PRN; Protocol PRN Reason: per Hypoglycemia Standing Ord. Docusate Sodium (Docusate Sodium 100 Mg Capsule) 100 mg PO BID PRN PRN Reason: Constipation Enoxaparin Sodium (Enoxaparin Sodium 40 Mg/0.4 Ml Syringe) 40 mg SUBCUT Q24H [facility] Last Admin: 04/30/25 20:34 Dose: 40 mg Documented By: SULLY Fluphenazine HCl (Fluphenazine Hcl 1 Mg Tablet) 1 mg PO BEDTIME [facility] Last Admin: 04/30/25 20:36 Dose: 1 mg Documented By: SULLY Fluticasone Propionate (Fluticasone Propionate Nasal 16 Gm [place]) 1 spray NOSTRIL-B DAILY [facility] Last Admin: 05/01/25 08:19 Dose: 1 spray Documented By: BRYAN Fluticasone/Umeclidinium/Vilanterol (Fluticasone/Umeclidinium/Vilanterol 100/62.5/25 Blst.W.Dev) 1 puff INHALE RDAILY [facility] Last Admin: 05/01/25 08:04 Dose: Not Given Documented By: NASIM Non-Admin Reason: Patient Refused Gabapentin (Gabapentin 600 Mg Tablet) 600 mg PO TID [facility] Last Admin: 05/01/25 08:13 Dose: 600 mg Documented By: BRYAN Glipizide (Glipizide Xl 2.5 Mg Tab.Er.24) 2.5 mg PO DAILY [facility] Last Admin: 05/01/25 08:13 Dose: 2.5 mg Documented By: BRYAN Glucose (Glucose Gel 15 Gm Gel..Gram.) 15 gm PO Q15M PRN; Protocol PRN Reason: per Hypoglycemia Standing Ord. Metronidazole (Flagyl) 500 mg in 100 mls @ 100 mls/hr IV Q8H [facility] Last Infusion: 05/01/25 07:43 Dose: Infused Documented By: BRYAN Insulin Glargine (Insulin Glargine,Hum.Rec.Anlog 100 Unit/Ml 10 Ml Vial) 10 unit SUBCUT BEDTIME [facility] Last Admin: 04/30/25 20:35 Dose: 10 unit Documented By: SULLY Insulin Human Lispro (Insulin Lispro 100 Unit/Ml 3 Ml Vial) 0 unit SUBCUT QIDACHS [facility]; Protocol Last Admin: 05/01/25 08:12 Dose: 4 unit Documented By: BRYAN Levothyroxine Sodium (Levothyroxine Sodium 175 Mcg Tablet) 175 mcg PO DAILY@0630 [facility] Last Admin: 05/01/25 05:33 Dose: 175 mcg Documented By: SULLY Seaford Carbonate (Se[place]ord Carbonate Er 450 Mg Tablet.Er) 450 mg PO BID [facility] Last Admin: 05/01/25 08:13 Dose: 450 mg Documented By: BRYAN Loratadine (Loratadine 10 Mg Tablet) 10 mg PO DAILY [facility] Last Admin: 05/01/25 08:13 Dose: 10 mg Documented By: BRYAN Magnesium Hydroxide (Milk Of Magnesia 30 Ml Oral.Susp) 30 ml PO DAILY PRN PRN Reason: Constipation Melatonin (Melatonin 3 Mg Tablet) 6 mg PO BEDTIME PRN PRN Reason: Insomnia Metformin HCl (Metformin Hcl 1,000 Mg Tablet) 1,000 mg PO BIDWM [facility] Last Admin: 05/01/25 08:13 Dose: 1,000 mg Documented By: BRYAN Methylprednisolone Sodium Succinate (Methylprednisolone Sod Succ 40 Mg Vial) 40 mg IVPUSH Q12H [facility] Last Admin: 05/01/25 04:03 Dose: 40 mg Documented By: SULLY Nicotine (Nicotine 21 Mg Patch.Td24) 21 mg TRANSDERMA DAILY [facility] Last Admin: 05/01/25 08:20 Dose: 21 mg Documented By: BRYAN Nicotine Polacrilex (Nicotine Polacrilex Lozenge 2 Mg Lozenge) 2 mg BUCCAL Q2H PRN PRN Reason: Nicotine Cravings Oxycodone HCl (Oxycodone Hcl Immed Release 5 Mg Tablet) 5 mg PO Q6H PRN PRN Reason: Pain, Severe (Pain Scale 7-10) Last Admin: 04/30/25 14:11 Dose: 5 mg Documented By: DOE Sodium Chloride (0.9 % Sodium Chloride Flush 3 Ml Syringe) 3 ml IVFLUSH QSHIFT [facility] Last Admin: 05/01/25 08:21 Dose: 3 ml Documented By: BRYAN Tamsulosin HCl (Tamsulosin Hcl 0.4 Mg Capsule) 0.4 mg PO BEDTIME [facility] Last Admin: 04/30/25 20:37 Dose: 0.4 mg Documented By: SULLY Tramadol HCl (Tramadol Hcl 50 Mg Tablet) 50 mg PO Q6H PRN PRN Reason: Pain, Moderate(Pain Scale 4-6) Labs 05/01/25 06:41 05/01/25 06:41 Labs: Laboratory Results - last 24 hr 04/30/25 04/30/25 05/01/25 16:07 20:38 06:41 MCV 84.9 MCH 23.9 L MCHC 28.2 L RDW 19.1 H Plt Count 223 MPV 9.3 L Immature Gran % (Auto) 0.7 H Neut % (Auto) 87.3 H Lymph % (Auto) 8.5 L Schuyler % (Auto) 3.4 Eos % (Auto) 0.0 Baso % (Auto) 0.1 Lymph # (Auto) 0.8 L Schuyler # (Auto) 0.3 Eos # (Auto) 0.0 Baso # (Auto) 0.0 Abs Immat Gran (auto) 0.06 H Absolute Neuts (auto) 7.9 Absolute Nucleated RBC 0.000 Nucleated RBC % (auto) 0.0 Anion Gap 7 L Estim Creat Clear Calc 119.2 Estimated GFR > 60 POC Glucose 96 248 H Random Glucose 214 H Calcium 8.7 05/01/25 05/01/25 07:17 11:11 MCV MCH MCHC RDW Plt Count MPV Immature Gran % (Auto) Neut % (Auto) Lymph % (Auto) Schuyler % (Auto) Eos % (Auto) Baso % (Auto) Lymph # (Auto) Schuyler # (Auto) Eos # (Auto) Baso # (Auto) Abs Immat Gran (auto) Absolute Neuts (auto) Absolute Nucleated RBC Nucleated RBC % (auto) Anion Gap Estim Creat Clear Calc Estimated GFR POC Glucose 204 H 213 H Random Glucose Calcium Microbiology Microbiology Results: Microbiology 04/28/25 15:41 Blood Culture - Preliminary Blood - Venous No growth after 48 hours. 04/28/25 15:18 Blood Culture - Preliminary Blood - Venous No growth after 48 hours. 04/28/25 19:41 Urine Culture - Final Urine clean catch - Clean Catch Midstream Assessment and Plan (1) Acute hypoxemic respiratory failure: Status: Acute Plan Patient is a 59-year-old male with a past medical history significant for history TBI, schizophrenia, IDDM, hypothyroid, asthma/COPD over lap, BPH and HLD who presented to the ED after being found on the floor at his nursing home for an unknown period of time. Acute hypoxic respiratory failure secondary to pneumonia, likely aspiration sepsis and acute hypoxia due to recurrent PNA, likely aspiration continue Abx O2 to keep sat around 94 COMPLAINTS COORDINATOR eval before discharge Acute asthma/COPD overlap exacerbation d/t above bronchodilators and steroid Elevated troponin -- secondary to hypoxia 423 initially, 448 on repeat EKG nonischemic monitor on tele no indication for further testing Tobacco use disorder nicotine patch smoking cessation encouraged Schizophrenia continue home meds IDDM SSI Lantus at 10 bedtime, usually 15 restarted metformin and glipizide today diabetic diet Hypothyroid continue levothyroxine HLD statin HTN atenolol schizophrenia lozapine, fluphenazine, lithium, clonazepam BPH tamsulosin Chronic pain, continue home pain meds tobacco abuse NRT--patch and gum Full code VTE prophylaxis: Lovenox Quality Stroke Does the patient have a stroke diagnosis?: No VTE Prior VTE?: No VTE Risk Level:: Medical - moderate - high VTE Device Contraindication: Treatment Not Indicated VTE Drug Contraindication: N/A - Med Ordered
[2025-05-01 15:29] LABS: Glucose, Whole Blood 109 mg/dL (60-115)
[2025-05-01] MEDS: Acetaminophen 325 MG TABLET 975 MG PO (16:04)
[2025-05-01] MEDS: cefTRIAXone sodium 1 GM VIAL IVPUSH (16:05)
[2025-05-01 20:30] LABS: Glucose, Whole Blood 186 mg/dL (60-115)
[2025-05-01] MEDS: Insulin Glargine,Hum.rec.anlog 100 UNIT/ML 10 ML VIAL 10 UNIT SUBCUT (20:50)
[2025-05-01] MEDS: Atorvastatin Calcium 40 MG TABLET PO (20:51)
[2025-05-01] MEDS: Enoxaparin Sodium 40 MG/0.4 ML SYRINGE SUBCUT (20:51)
[2025-05-01] MEDS: Desmopressin Acetate 0.2 MG TABLET 0.1 MG PO (20:51)
[2025-05-01] MEDS: fluPHENAZine HCl 1 MG TABLET PO (20:52)
[2025-05-01] MEDS: Tamsulosin HCL 0.4 MG CAPSULE PO (20:52)
[2025-05-02] VITALS (11 sets, daily range): BP systolic 111–152; BP diastolic 56–65; PULSE 62–89; RESP 16–22; TEMP 36.5–37.1; O2SAT 79–100
[2025-05-02] MEDS: methylPREDNISolone Sod Succ 40 MG VIAL IVPUSH (04:37)
[2025-05-02] MEDS: Levothyroxine Sodium 175 MCG TABLET PO (05:38)
[2025-05-02] MEDS: metroNIDAZOLE/NS 500 MG/100 ML PIGGYBACK 100 MG IV ×3 (05:38→21:23)
[2025-05-02 07:52] LABS: Glucose, Whole Blood 231 mg/dL (60-115)
[2025-05-02] MEDS: Docusate Sodium 100 MG CAPSULE PO (08:08)
[2025-05-02] MEDS: Insulin Lispro 100 UNIT/ML 3 ML VIAL SUBCUT ×4 (08:08→21:22)
[2025-05-02] MEDS: Lithium Carbonate ER 450 MG TABLET.ER PO ×2 (08:09→20:19)
[2025-05-02] MEDS: Gabapentin 600 MG TABLET PO ×3 (08:09→20:19)
[2025-05-02] MEDS: Fluticasone Propionate Nasal 16 GM SPRAY 1 SPRAY NOSTRIL-B (08:09)
[2025-05-02] MEDS: Loratadine 10 MG TABLET PO (08:09)
[2025-05-02] MEDS: cloZAPine 100 MG TABLET PO ×2 (08:09→20:19)
[2025-05-02] MEDS: atenoloL 25 MG TABLET PO (08:09)
[2025-05-02] MEDS: metFORMIN HCl 1,000 MG TABLET 1000 MG PO ×2 (08:09→16:48)
[2025-05-02] MEDS: Nicotine 21 MG PATCH.TD24 TRANSDERMA (08:09)
[2025-05-02] MEDS: glipiZIDE XL 2.5 MG TAB.ER.24 PO (08:09)
[2025-05-02] MEDS: cloZAPine 25 MG TABLET 75 MG PO (08:09)
[2025-05-02] MEDS: 0.9 % Sodium Chloride Flush 3 ML SYRINGE IVFLUSH ×2 (08:10→14:46)
[2025-05-02] MEDS: Albuterol/Iprat 2.5/0.5MG 3 ML AMPUL.NEB INHALE ×3 (08:20→15:08)
[2025-05-02] MEDS: Fluticasone/Umeclidinium/Vilanterol 100/62.5/25 BLST.W.DEV 1 PUFF INHALE (08:20)
--- NOTE | 2025-05-02 10:38 | MHC.SL.SWA ---
Speech Pathologist Impression: Pt presents with mild to moderate oral weakness characterized by slight flaccidity of tongue, with protrusion during open mouth breathing. Pt is edentulous but has dentures at home. Lingual ROM adequate for oral prep phase of swallow and intelligible speech production. Jaw ROM adequate for chewing/speaking. Lip closure sufficient for oral containment, though open mouth posture observed to be consistent in absence of speech and PO intake. Pt adamently refused to trial thickened liquids. Pt agreed to recommendation for MBSS to visualize swallow function, and endorsed he has had GRAPHICS MANAGER tx in the past. Risk of Aspiration Due to: Hx of aspiration PNAs Hx of dysphagia tx Cognitive/communication challenges secondary to TBI Dysphasia Diet Status: Recommend continue on Chopped Advanced, Thin Liquids NO STRAWS, pills crushed in puree, 1:1 supervision, aspiration precautions Liquid Consistency and Strategies for Safe Swallow: Liquid Intake Recommendation: Thin Liquid Intake Strategies: Solid Food Consistency: Dietary Recommendations: Chopped/Advanced (NDD3) Additional Modifications to Solid Foods: Oral Medication Intake: Crushed with Puree Please contact the pharmacy regarding appropriate crushable or liquid drug formulations that are available whenever modified delivery is recommended. Compensatory Strategies and Precautions to be Taken for Safe Swallow: Upright positioning Cue pt to slow pace Cue pt to take smaller bites Avoid straws Encourage small sips Encourage volitional throat clear/re-swallow if voice becomes wet Implement pause if coughing occurs MBSS indicated, either inpatient or through [facility] upon d/c to Assisted Supervision While Eating and Drinking for Safe Swallow: Direct Supervision (1:1) Foods to Avoid: Swallowing Recommended Treatments: Recommendation for Speech: Further Testing Needed Speech Therapy through [facility] Modified Barium Swallow Study - Inpatient Comment 05/02: Pt provided with concrete explanation of reason for bedside swallow evaluation and visual referent to support his understanding of aspiration. Pt refused trials of thickened liquids despite GRAPHICS MANAGER description of rationale for trying thicker liquids, stating he cannot have 'that stuff' and gestured to his stomach (hx of GI involvement). Pt endorsed intermittent heart burn. Pt exhibited adequate oral prep for moistened solids and purees, with timely anterior to posterior transit upon bolus formation. Trigger of pharyngeal swallow WNL, laryngeal elevation adequate. Pt coughed with thins by straw intermittently. Cough also occurred intermittently with cup sips. Cough adequate to clear material but wet voicing occurred after PO intake, indicating laryngeal residuals. Pt cleared throat reflexively when wet voicing occurred. Pt is considered to be at moderate risk for recurrent aspiration d/t nature and severity of dysphagia. Pt adamantly refused to trial thickened liquids. Pt agreed to recommendation for MBSS to visualize swallow function, and endorsed he has had GRAPHICS MANAGER tx in the past. Frequency/Duration: Daily Date Range for Service Req: Timeline to reassess: Sheet Metal Duct Worker Supervisor Clinican/Clinical Fellow: No Supervisory Statement: I have reviewed and agree with the student/clinical fellow's documentation: N/A Speech Language Pathologist: Florencia Gaines M.S., [facility]-GRAPHICS MANAGER
[2025-05-02 10:59] LABS: Glucose, Whole Blood 300 mg/dL (60-115)
--- NOTE | 2025-05-02 12:05 | P.PNIM_ITS ---
Subjective Subjective Date of Service: 05/02/25 Interval History: Patient continues to depend on oxygen and shows sings of aspiration following speech assessment Physical Exam 2 Vital Signs: Vital Signs: Last Vital Signs Temp 98.8 F 05/02/25 11:21 Pulse 62 05/02/25 11:21 Resp 20 05/02/25 11:21 BP 133/62 05/02/25 11:21 Pulse Ox 100 05/02/25 11:21 O2 Del Method Nasal Cannula 05/02/25 11:21 O2 Flow Rate 2 05/02/25 11:21 BMI result Body Mass Index 19.6 Const: Other: General: AO X 3, no acute distress Resp: CTA bilateral CVS: S1,S2,RRR GI: +BS, NT, no distention Skin: No rash Neuro: motor grossly intact Psych: appropriate affect Objective Data Active Medications Acetaminophen (Acetaminophen 325 Mg Tablet) 975 mg PO Q6H PRN PRN Reason: Pain, Mild 1-3,fever,headache Last Admin: 05/01/25 16:04 Dose: 975 mg Documented By: BRYAN Albuterol/Ipratropium (Albuterol/Iprat 2.5/0.5mg 3 Ml Ampul.Neb) 3 ml INHALE RQ4H WHILE AWAKE [facility] Last Admin: 05/02/25 11:16 Dose: 3 ml Documented By: NASIM Atenolol (Atenolol 25 Mg Tablet) 25 mg PO DAILY [facility]; Protocol Last Admin: 05/02/25 08:09 Dose: 25 mg Documented By: BRYAN Atorvastatin Calcium (Atorvastatin Calcium 40 Mg Tablet) 40 mg PO BEDTIME [facility] Last Admin: 05/01/25 20:51 Dose: 40 mg Documented By: SULLY Calcium Carbonate (Calcium Carbonate 750 Mg Tab.Chew) 750 mg PO Q4H PRN PRN Reason: Heartburn Ceftriaxone Sodium (Ceftriaxone Sodium 1 Gm Vial) 1 gm IVPUSH Q24H [facility] Last Admin: 05/01/25 16:05 Dose: 1 gm Documented By: BRYAN Clozapine (Clozapine 25 Mg Tablet) 75 mg PO DAILY [facility] Last Admin: 05/02/25 08:09 Dose: 75 mg Documented By: BRYAN Clozapine (Clozapine 100 Mg Tablet) 100 mg PO BID [facility] Last Admin: 05/02/25 08:09 Dose: 100 mg Documented By: BRYAN Desmopressin Acetate (Desmopressin Acetate 0.2 Mg Tablet) 0.1 mg PO BEDTIME [facility] Last Admin: 05/01/25 20:51 Dose: 0.1 mg Documented By: SULLY Dextrose (Dextrose 50 % 25 Gm/50 Ml Syringe) 25 gm IVPUSH Q15M PRN; Protocol PRN Reason: per Hypoglycemia Standing Ord. Docusate Sodium (Docusate Sodium 100 Mg Capsule) 100 mg PO BID PRN PRN Reason: Constipation Last Admin: 05/02/25 08:08 Dose: 100 mg Documented By: BRYAN Enoxaparin Sodium (Enoxaparin Sodium 40 Mg/0.4 Ml Syringe) 40 mg SUBCUT Q24H [facility] Last Admin: 05/01/25 20:51 Dose: 40 mg Documented By: SULLY Fluphenazine HCl (Fluphenazine Hcl 1 Mg Tablet) 1 mg PO BEDTIME [facility] Last Admin: 05/01/25 20:52 Dose: 1 mg Documented By: SULLY Fluticasone Propionate (Fluticasone Propionate Nasal 16 Gm [place]) 1 spray NOSTRIL-B DAILY [facility] Last Admin: 05/02/25 08:09 Dose: 1 spray Documented By: BRYAN Fluticasone/Umeclidinium/Vilanterol (Fluticasone/Umeclidinium/Vilanterol 100/62.5/25 Blst.W.Dev) 1 puff INHALE RDAILY [facility] Last Admin: 05/02/25 08:20 Dose: 1 puff Documented By: NASIM Gabapentin (Gabapentin 600 Mg Tablet) 600 mg PO TID [facility] Last Admin: 05/02/25 08:09 Dose: 600 mg Documented By: BRYNA Glipizide (Glipizide Xl 2.5 Mg Tab.Er.24) 2.5 mg PO DAILY [facility] Last Admin: 05/02/25 08:09 Dose: 2.5 mg Documented By: BRYAN Glucose (Glucose Gel 15 Gm Gel..Gram.) 15 gm PO Q15M PRN; Protocol PRN Reason: per Hypoglycemia Standing Ord. Metronidazole (Flagyl) 500 mg in 100 mls @ 100 mls/hr IV Q8H [facility] Last Infusion: 05/02/25 08:14 Dose: Infused Documented By: BRYAN Insulin Glargine (Insulin Glargine,Hum.Rec.Anlog 100 Unit/Ml 10 Ml Vial) 10 unit SUBCUT BEDTIME [facility] Last Admin: 05/01/25 20:50 Dose: 10 unit Documented By: SULLY Insulin Human Lispro (Insulin Lispro 100 Unit/Ml 3 Ml Vial) 0 unit SUBCUT QIDACHS [facility]; Protocol Last Admin: 05/02/25 11:20 Dose: 6 unit Documented By: BRYAN Levothyroxine Sodium (Levothyroxine Sodium 175 Mcg Tablet) 175 mcg PO DAILY@0630 [facility] Last Admin: 05/02/25 05:38 Dose: 175 mcg Documented By: SULLY Kula Carbonate (Kula Carbonate Er 450 Mg Tablet.Er) 450 mg PO BID [facility] Last Admin: 05/02/25 08:09 Dose: 450 mg Documented By: BRYAN Loratadine (Loratadine 10 Mg Tablet) 10 mg PO DAILY [facility] Last Admin: 05/02/25 08:09 Dose: 10 mg Documented By: BRYAN Magnesium Hydroxide (Milk Of Magnesia 30 Ml Oral.Susp) 30 ml PO DAILY PRN PRN Reason: Constipation Melatonin (Melatonin 3 Mg Tablet) 6 mg PO BEDTIME PRN PRN Reason: Insomnia Metformin HCl (Metformin Hcl 1,000 Mg Tablet) 1,000 mg PO BIDWM [facility] Last Admin: 05/02/25 08:09 Dose: 1,000 mg Documented By: BRYAN Methylprednisolone Sodium Succinate (Methylprednisolone Sod Succ 40 Mg Vial) 40 mg IVPUSH Q12H [facility] Last Admin: 05/02/25 04:37 Dose: 40 mg Documented By: SULLY Nicotine (Nicotine 21 Mg Patch.Td24) 21 mg TRANSDERMA DAILY [facility] Last Admin: 05/02/25 08:09 Dose: 21 mg Documented By: BRYAN Nicotine Polacrilex (Nicotine Polacrilex Lozenge 2 Mg Lozenge) 2 mg BUCCAL Q2H PRN PRN Reason: Nicotine Cravings Oxycodone HCl (Oxycodone Hcl Immed Release 5 Mg Tablet) 5 mg PO Q6H PRN PRN Reason: Pain, Severe (Pain Scale 7-10) Last Admin: 04/30/25 14:11 Dose: 5 mg Documented By: DOE Sodium Chloride (0.9 % Sodium Chloride Flush 3 Ml Syringe) 3 ml IVFLUSH QSHIFT [facility] Last Admin: 05/02/25 08:10 Dose: 3 ml Documented By: BRYAN Tamsulosin HCl (Tamsulosin Hcl 0.4 Mg Capsule) 0.4 mg PO BEDTIME [facility] Last Admin: 05/01/25 20:52 Dose: 0.4 mg Documented By: SULLY Tramadol HCl (Tramadol Hcl 50 Mg Tablet) 50 mg PO Q6H PRN PRN Reason: Pain, Moderate(Pain Scale 4-6) Labs 05/01/25 06:41 05/01/25 06:41 Labs: Laboratory Results - last 24 hr 05/01/25 05/01/25 05/02/25 15:20 20:22 07:46 POC Glucose 109 186 H 231 H 05/02/25 10:33 POC Glucose 300 H Assessment and Plan (1) Acute hypoxemic respiratory failure: Status: Acute Plan Patient is a 59-year-old male with a past medical history significant for history TBI, schizophrenia, IDDM, hypothyroid, asthma/COPD over lap, BPH and HLD who presented to the ED after being found on the floor at his residential for an unknown period of time. Acute hypoxic respiratory failure secondary to pneumonia with sepsis, likely aspiration type continue Ceftriaxone and Flagyl, has pen allergy O2 to keep sat around 94 REFRIGERATOR CAR ICER recommends NDD3, aspiration precaution and MBS Acute asthma/COPD overlap exacerbation d/t above bronchodilators and steroid, change to PO steroid Elevated troponin -- secondary to hypoxia 423 initially, 448 on repeat EKG nonischemic monitor on tele no indication for further testing Tobacco use disorder nicotine patch smoking cessation encouraged Schizophrenia continue home meds IDDM with hyperglycemia d/t steroid SSI Lantus, increase to 15 continue metformin and glipizide today diabetic diet Hypothyroid continue levothyroxine HLD statin HTN atenolol schizophrenia lozapine, fluphenazine, lithium, clonazepam BPH tamsulosin Chronic pain, continue home pain meds tobacco abuse NRT--patch and gum Full code VTE prophylaxis: Lovenox Quality Stroke Does the patient have a stroke diagnosis?: No VTE Prior VTE?: No VTE Risk Level:: Medical - moderate - high VTE Device Contraindication: Treatment Not Indicated VTE Drug Contraindication: N/A - Med Ordered
[2025-05-02] MEDS: Lidocaine 4 % Patch ADH..PATCH 1 PATCH TRANSDERMA (14:46)
[2025-05-02 16:34] LABS: Glucose, Whole Blood 182 mg/dL (60-115)
[2025-05-02] MEDS: cefTRIAXone sodium 1 GM VIAL IVPUSH (16:47)
[2025-05-02] MEDS: Tamsulosin HCL 0.4 MG CAPSULE PO (20:19)
[2025-05-02] MEDS: Atorvastatin Calcium 40 MG TABLET PO (20:19)
[2025-05-02] MEDS: Desmopressin Acetate 0.2 MG TABLET 0.1 MG PO (20:19)
[2025-05-02] MEDS: fluPHENAZine HCl 1 MG TABLET PO (20:19)
[2025-05-02 20:37] LABS: Glucose, Whole Blood 156 mg/dL (60-115)
[2025-05-02] MEDS: Insulin Glargine,Hum.rec.anlog 100 UNIT/ML 10 ML VIAL 15 UNIT SUBCUT (21:22)
[2025-05-02] MEDS: Enoxaparin Sodium 40 MG/0.4 ML SYRINGE SUBCUT (21:23)
[2025-05-03] VITALS (10 sets, daily range): BP systolic 104–119; BP diastolic 51–60; PULSE 63–90; RESP 14–18; TEMP 36.2–36.9; O2SAT 89–98
[2025-05-03 03:32] LABS: Glucose, Whole Blood 128 mg/dL (60-115)
[2025-05-03] MEDS: 0.9 % Sodium Chloride Flush 3 ML SYRINGE IVFLUSH ×4 (03:34→20:37)
[2025-05-03] MEDS: Levothyroxine Sodium 175 MCG TABLET PO (04:56)
[2025-05-03] MEDS: metroNIDAZOLE/NS 500 MG/100 ML PIGGYBACK 100 MG IV ×3 (04:58→20:36)
[2025-05-03 07:17] LABS: Glucose, Whole Blood 119 mg/dL (60-115)
[2025-05-03] MEDS: Fluticasone/Umeclidinium/Vilanterol 100/62.5/25 BLST.W.DEV 1 PUFF INHALE (07:42)
[2025-05-03] MEDS: Albuterol/Iprat 2.5/0.5MG 3 ML AMPUL.NEB INHALE ×3 (07:42→19:11)
[2025-05-03 07:54] LABS: Hemoglobin 12.1 g/dl (14.0-18.0); Mean Corpuscular HGB Conc 28.8 g/dl (31.0-36.0); Mean Corpuscular Volume 83.2 fL (80.0-98.0); Mean Platelet Volume 9.2 fL (9.4-12.4); Platelet Count 253 X10*3/uL (160-400); Red Blood Count 5.05 X10*6/uL (4.60-5.80); Red Cell Distribution Width 19.7 % (11.0-16.0); White Blood Count 12.3 X10*3/uL (4.8-10.8)
[2025-05-03 08:24] LABS: Anion Gap 12 (12-20); Blood Urea Nitrogen 21 mg/dL (9-16); Calcium 9.5 mg/dL (8.4-10.2); Carbon Dioxide 35 mmol/L (22-29); Chloride 101 mmol/L (96-108); Creatinine Clr Calc Pharmacy 105.5; Estimated Glomerular Filt Rate > 60; Glucose Random 101 mg/dL (60-115); Potassium 4.6 mmol/L (3.3-5.1); Sodium 143 mmol/L (135-145)
[2025-05-03] MEDS: Nicotine 21 MG PATCH.TD24 TRANSDERMA (08:45)
[2025-05-03] MEDS: Lidocaine 4 % Patch ADH..PATCH 1 PATCH TRANSDERMA (08:45)
[2025-05-03] MEDS: cloZAPine 100 MG TABLET PO ×2 (08:46→20:36)
[2025-05-03] MEDS: cloZAPine 25 MG TABLET 75 MG PO (08:46)
[2025-05-03] MEDS: Gabapentin 600 MG TABLET PO ×3 (08:46→20:36)
[2025-05-03] MEDS: Lithium Carbonate ER 450 MG TABLET.ER PO ×2 (08:46→20:36)
[2025-05-03] MEDS: predniSONE 20 MG TABLET PO (08:47)
[2025-05-03] MEDS: metFORMIN HCl 1,000 MG TABLET 1000 MG PO ×2 (08:47→17:15)
[2025-05-03] MEDS: atenoloL 25 MG TABLET PO (08:47)
[2025-05-03] MEDS: Loratadine 10 MG TABLET PO (08:47)
[2025-05-03] MEDS: glipiZIDE XL 2.5 MG TAB.ER.24 PO (08:47)
--- NOTE | 2025-05-03 10:34 | MHC.CM.PN ---
CM CONTACTED NURSEJENNIFER AT [phone], JADE REPORTS THAT PT NEEDS TO BE 100% INDEP AT AMD ABLE TO MANAGE O2 AT HOME WELL, JADE REQUESTING OT/PT FOR PT TO DETERMINE ABILITIES. HOSPITALIST MADE AWARE VIA TIGER.
[2025-05-03 11:29] LABS: Glucose, Whole Blood 146 mg/dL (60-115)
--- NOTE | 2025-05-03 12:22 | P.PNIM_ITS ---
Subjective Subjective Date of Service: 05/03/25 Interval History: Still O2 dependent Physical Exam 2 Vital Signs: Vital Signs: Last Vital Signs Temp 97.6 F 05/03/25 11:30 Pulse 63 05/03/25 12:04 Resp 17 05/03/25 12:04 BP 104/58 L 05/03/25 11:30 Pulse Ox 96 05/03/25 11:30 O2 Del Method Nasal Cannula 05/03/25 07:29 O2 Flow Rate 1 05/03/25 07:29 BMI result Body Mass Index 19.6 Const: Other: General: AO X 2, no acute distress Resp: CTA bilateral CVS: S1,S2,RRR GI: +BS, NT, no distention Skin: No rash Neuro: motor grossly intact Psych: appropriate affect Objective Data Active Medications Acetaminophen (Acetaminophen 325 Mg Tablet) 975 mg PO Q6H PRN PRN Reason: Pain, Mild 1-3,fever,headache Last Admin: 05/01/25 16:04 Dose: 975 mg Documented By: BRYAN Albuterol/Ipratropium (Albuterol/Iprat 2.5/0.5mg 3 Ml Ampul.Neb) 3 ml INHALE RQ4H WHILE AWAKE [facility] Last Admin: 05/03/25 12:02 Dose: 3 ml Documented By: MISSAEL Atenolol (Atenolol 25 Mg Tablet) 25 mg PO DAILY [facility]; Protocol Last Admin: 05/03/25 08:47 Dose: 25 mg Documented By: KELLEY Atorvastatin Calcium (Atorvastatin Calcium 40 Mg Tablet) 40 mg PO BEDTIME [facility] Last Admin: 05/02/25 20:19 Dose: 40 mg Documented By: CHUCK Calcium Carbonate (Calcium Carbonate 750 Mg Tab.Chew) 750 mg PO Q4H PRN PRN Reason: Heartburn Ceftriaxone Sodium (Ceftriaxone Sodium 1 Gm Vial) 1 gm IVPUSH Q24H [facility] Last Admin: 05/02/25 16:47 Dose: 1 gm Documented By: BRYAN Clozapine (Clozapine 25 Mg Tablet) 75 mg PO DAILY [facility] Last Admin: 05/03/25 08:46 Dose: 75 mg Documented By: KELLEY Clozapine (Clozapine 100 Mg Tablet) 100 mg PO BID [facility] Last Admin: 05/03/25 08:46 Dose: 100 mg Documented By: KELLEY Desmopressin Acetate (Desmopressin Acetate 0.2 Mg Tablet) 0.1 mg PO BEDTIME [facility] Last Admin: 05/02/25 20:19 Dose: 0.1 mg Documented By: CHUCK Dextrose (Dextrose 50 % 25 Gm/50 Ml Syringe) 25 gm IVPUSH Q15M PRN; Protocol PRN Reason: per Hypoglycemia Standing Ord. Docusate Sodium (Docusate Sodium 100 Mg Capsule) 100 mg PO BID PRN PRN Reason: Constipation Last Admin: 05/02/25 08:08 Dose: 100 mg Documented By: BRYAN Enoxaparin Sodium (Enoxaparin Sodium 40 Mg/0.4 Ml Syringe) 40 mg SUBCUT Q24H [facility] Last Admin: 05/02/25 21:23 Dose: 40 mg Documented By: CUHCK Fluphenazine HCl (Fluphenazine Hcl 1 Mg Tablet) 1 mg PO BEDTIME [facility] Last Admin: 05/02/25 20:19 Dose: 1 mg Documented By: CHUCK Fluticasone Propionate (Fluticasone Propionate Nasal 16 Gm [place]) 1 spray NOSTRIL-B DAILY [facility] Last Admin: 05/02/25 08:09 Dose: 1 spray Documented By: BRYAN Fluticasone/Umeclidinium/Vilanterol (Fluticasone/Umeclidinium/Vilanterol 100/62.5/25 Blst.W.Dev) 1 puff INHALE RDAILY [facility] Last Admin: 05/03/25 07:42 Dose: 1 puff Documented By: MISSAEL Gabapentin (Gabapentin 600 Mg Tablet) 600 mg PO TID [facility] Last Admin: 05/03/25 08:46 Dose: 600 mg Documented By: KELLEY Glipizide (Glipizide Xl 2.5 Mg Tab.Er.24) 2.5 mg PO DAILY [facility] Last Admin: 05/03/25 08:47 Dose: 2.5 mg Documented By: KELLEY Glucose (Glucose Gel 15 Gm Gel..Gram.) 15 gm PO Q15M PRN; Protocol PRN Reason: per Hypoglycemia Standing Ord. Metronidazole (Flagyl) 500 mg in 100 mls @ 100 mls/hr IV Q8H [facility] Last Infusion: 05/03/25 06:02 Dose: Infused Documented By: CHUCK Insulin Glargine (Insulin Glargine,Hum.Rec.Anlog 100 Unit/Ml 10 Ml Vial) 15 unit SUBCUT BEDTIME [facility] Last Admin: 05/02/25 21:22 Dose: 15 unit Documented By: CHUCK Insulin Human Lispro (Insulin Lispro 100 Unit/Ml 3 Ml Vial) 0 unit SUBCUT QIDACHS [facility]; Protocol Last Admin: 05/03/25 08:44 Dose: Not Given Documented By: KELLEY Non-Admin Reason: No Insulin Coverage Levothyroxine Sodium (Levothyroxine Sodium 175 Mcg Tablet) 175 mcg PO DAILY@0630 [facility] Last Admin: 05/03/25 04:56 Dose: 175 mcg Documented By: CHUCK Lidocaine (Lidocaine 4 % Patch Adh..Patch) 1 patch TRANSDERMA DAILY [facility]; Protocol Last Admin: 05/03/25 08:45 Dose: 1 patch Documented By: KELLEY [place]ip Carbonate (Snowslip Carbonate Er 450 Mg Tablet.Er) 450 mg PO BID [facility] Last Admin: 05/03/25 08:46 Dose: 450 mg Documented By: KELLEY Loratadine (Loratadine 10 Mg Tablet) 10 mg PO DAILY [facility] Last Admin: 05/03/25 08:47 Dose: 10 mg Documented By: KELLEY Magnesium Hydroxide (Milk Of Magnesia 30 Ml Oral.Susp) 30 ml PO DAILY PRN PRN Reason: Constipation Melatonin (Melatonin 3 Mg Tablet) 6 mg PO BEDTIME PRN PRN Reason: Insomnia Metformin HCl (Metformin Hcl 1,000 Mg Tablet) 1,000 mg PO BIDWM [facility] Last Admin: 05/03/25 08:47 Dose: 1,000 mg Documented By: KELLEY Nicotine (Nicotine 21 Mg Patch.Td24) 21 mg TRANSDERMA DAILY [facility] Last Admin: 05/03/25 08:45 Dose: 21 mg Documented By: KELLEY Nicotine Polacrilex (Nicotine Polacrilex Lozenge 2 Mg Lozenge) 2 mg BUCCAL Q2H PRN PRN Reason: Nicotine Cravings Oxycodone HCl (Oxycodone Hcl Immed Release 5 Mg Tablet) 5 mg PO Q6H PRN PRN Reason: Pain, Severe (Pain Scale 7-10) Last Admin: 04/30/25 14:11 Dose: 5 mg Documented By: DOE Prednisone (Prednisone 20 Mg Tablet) 20 mg PO DAILY [facility] Last Admin: 05/03/25 08:47 Dose: 20 mg Documented By: KELLEY Sodium Chloride (0.9 % Sodium Chloride Flush 3 Ml Syringe) 3 ml IVFLUSH QSHIFT [facility] Last Admin: 05/03/25 08:47 Dose: 3 ml Documented By: KELLEY Tamsulosin HCl (Tamsulosin Hcl 0.4 Mg Capsule) 0.4 mg PO BEDTIME [facility] Last Admin: 05/02/25 20:19 Dose: 0.4 mg Documented By: CHUCK Tramadol HCl (Tramadol Hcl 50 Mg Tablet) 50 mg PO Q6H PRN PRN Reason: Pain, Moderate(Pain Scale 4-6) Labs 05/03/25 07:26 05/03/25 07:27 Labs: Laboratory Results - last 24 hr 05/02/25 05/02/25 05/03/25 16:28 20:31 03:27 MCV MCH MCHC RDW Plt Count MPV Absolute Nucleated RBC Nucleated RBC % (auto) Anion Gap Estim Creat Clear Calc Estimated GFR POC Glucose 182 H 156 H 128 H Random Glucose Calcium 05/03/25 05/03/25 05/03/25 07:12 07:26 07:27 MCV 83.2 MCH 24.0 L MCHC 28.8 L RDW 19.7 H Plt Count 253 MPV 9.2 L Absolute Nucleated RBC 0.000 Nucleated RBC % (auto) 0.0 Anion Gap 12 Estim Creat Clear Calc 105.5 Estimated GFR > 60 POC Glucose 119 H Random Glucose 101 Calcium 9.5 D 05/03/25 11:13 MCV MCH MCHC RDW Plt Count MPV Absolute Nucleated RBC Nucleated RBC % (auto) Anion Gap Estim Creat Clear Calc Estimated GFR POC Glucose 146 H Random Glucose Calcium Assessment and Plan (1) Acute hypoxemic respiratory failure: Status: Acute Plan Patient is a 59-year-old male with a past medical history significant for history TBI, schizophrenia, IDDM, hypothyroid, asthma/COPD over lap, BPH and HLD who presented to the ED after being found on the floor at his long-term for an unknown period of time. Acute hypoxic respiratory failure secondary to pneumonia with sepsis, likely aspiration type continue Ceftriaxone and Flagyl, has pen allergy---change to PO Ceftin and PO Flagyl O2 to keep sat around 94 TERMINAL MAKEUP OPERATOR recommends NDD3, aspiration precaution and MBS on outpatient basis He might need home O2 Acute asthma/COPD overlap exacerbation d/t above bronchodilators and PO steroid Elevated troponin -- secondary to hypoxia 423 initially, 448 on repeat EKG nonischemic monitor on tele no indication for further testing Tobacco use disorder nicotine patch smoking cessation encouraged Schizophrenia continue home meds IDDM with hyperglycemia d/t steroid SSI Lantus, increase to 15 continue metformin and glipizide today diabetic diet Hypothyroid continue levothyroxine HLD statin HTN atenolol schizophrenia lozapine, fluphenazine, lithium, clonazepam BPH tamsulosin Chronic pain, continue home pain meds tobacco abuse NRT--patch and gum Full code VTE prophylaxis: Lovenox PT and OT evel Quality Stroke Does the patient have a stroke diagnosis?: No VTE Prior VTE?: No VTE Risk Level:: Medical - moderate - high VTE Device Contraindication: Treatment Not Indicated VTE Drug Contraindication: N/A - Med Ordered
--- NOTE | 2025-05-03 13:36 | MHC.SL.SWA ---
Speech Pathologist Impression: Mild oral dysphagia in presence of missing dentures, adequate oropharyngeal coordination wtih mechanical soft/thin consistencies Risk of Aspiration Due to: Hx of PNAs Reduced cognition Impulsivity with PO intake Dysphasia Diet Status: NDD3 with thin liquids Liquid Consistency and Strategies for Safe Swallow: Liquid Intake Recommendation: Thin Liquid Intake Strategies: Solid Food Consistency: Dietary Recommendations: Chopped/Advanced (NDD3) Additional Modifications to Solid Foods: Oral Medication Intake: Crushed with Puree Please contact the pharmacy regarding appropriate crushable or liquid drug formulations that are available whenever modified delivery is recommended. Compensatory Strategies and Precautions to be Taken for Safe Swallow: Sitting Upright (90 deg) No Straw Liquids from Spoon Liquids from Wide Cup Small Bites and Sips Alternate Liquids/Solids Rate of Ingestion Change Supervision While Eating and Drinking for Safe Swallow: Direct Supervision (1:1) Foods to Avoid: Swallowing Recommended Treatments: Compens. Strategy Educat. Recommendation for Speech: Further Testing Needed Speech Therapy through [facility] Modified Barium Swallow Study - after discharge (through [facility]) Comment: Pt seen for dysphagia treatment. RN consulted, no concerns with pt PO tolerance. Pt on NDD3 with thins. Cough occurs in absence of PO, secondary to pulmonary condition (COPD/emphysema). Pt provided with education, review of safety strategies to reduce his risk for aspiration. Pt in agreement. Good return demonstration with volitional throat clear/re-swallow technique. Recc diet as ordered, CONSUMER SAFETY OFFICER tx upon d/c with MBSS trough [facility]. notified of CONSUMER SAFETY OFFICER proposed POC. Frequency/Duration: Daily Date Range for Service Req: Timeline to reassess: Veneer Patcher Clinican/Clinical Fellow: No Supervisory Statement: I have reviewed and agree with the student/clinical fellow's documentation: N/A Speech Language Pathologist: Florencia Gaines M.S., CCC-CONSUMER SAFETY OFFICER
[2025-05-03 15:37] LABS: Glucose, Whole Blood 197 mg/dL (60-115)
[2025-05-03] MEDS: Insulin Lispro 100 UNIT/ML 3 ML VIAL SUBCUT ×2 (16:00→20:37)
[2025-05-03] MEDS: cefTRIAXone sodium 1 GM VIAL IVPUSH (17:14)
[2025-05-03] MEDS: fluPHENAZine HCl 1 MG TABLET PO (20:35)
[2025-05-03] MEDS: Tamsulosin HCL 0.4 MG CAPSULE PO (20:36)
[2025-05-03] MEDS: Desmopressin Acetate 0.2 MG TABLET 0.1 MG PO (20:36)
[2025-05-03] MEDS: Atorvastatin Calcium 40 MG TABLET PO (20:36)
[2025-05-03] MEDS: Enoxaparin Sodium 40 MG/0.4 ML SYRINGE SUBCUT (20:36)
[2025-05-03] MEDS: Insulin Glargine,Hum.rec.anlog 100 UNIT/ML 10 ML VIAL 15 UNIT SUBCUT (20:37)
[2025-05-03 22:03] LABS: Glucose, Whole Blood 194 mg/dL (60-115)
[2025-05-04] VITALS (11 sets, daily range): BP systolic 106–124; BP diastolic 53–58; PULSE 67–89; RESP 16–20; TEMP 36.3–36.7; O2SAT 87–96
[2025-05-04] MEDS: metroNIDAZOLE/NS 500 MG/100 ML PIGGYBACK 100 MG IV (05:19)
[2025-05-04] MEDS: Levothyroxine Sodium 175 MCG TABLET PO (05:59)
[2025-05-04 07:22] LABS: Glucose, Whole Blood 133 mg/dL (60-115)
[2025-05-04] MEDS: Fluticasone/Umeclidinium/Vilanterol 100/62.5/25 BLST.W.DEV 1 PUFF INHALE (08:05)
[2025-05-04] MEDS: Albuterol/Iprat 2.5/0.5MG 3 ML AMPUL.NEB INHALE ×4 (08:05→20:24)
[2025-05-04] MEDS: predniSONE 20 MG TABLET PO (08:36)
[2025-05-04] MEDS: cloZAPine 100 MG TABLET PO ×2 (08:37→20:03)
[2025-05-04] MEDS: atenoloL 25 MG TABLET PO (08:37)
[2025-05-04] MEDS: Gabapentin 600 MG TABLET PO ×3 (08:37→20:02)
[2025-05-04] MEDS: cloZAPine 25 MG TABLET 75 MG PO (08:37)
[2025-05-04] MEDS: Lithium Carbonate ER 450 MG TABLET.ER PO ×2 (08:37→20:03)
[2025-05-04] MEDS: metFORMIN HCl 1,000 MG TABLET 1000 MG PO ×2 (08:37→16:42)
[2025-05-04] MEDS: glipiZIDE XL 2.5 MG TAB.ER.24 PO (08:37)
[2025-05-04] MEDS: Loratadine 10 MG TABLET PO (08:37)
[2025-05-04] MEDS: Nicotine 21 MG PATCH.TD24 TRANSDERMA (08:38)
[2025-05-04] MEDS: 0.9 % Sodium Chloride Flush 3 ML SYRINGE IVFLUSH ×2 (08:39→20:04)
[2025-05-04] MEDS: Lidocaine 4 % Patch ADH..PATCH 1 PATCH TRANSDERMA (08:39)
--- NOTE | 2025-05-04 11:03 | P.PNIM_ITS ---
Subjective Subjective Date of Service: 05/04/25 Interval History: Overall doing better, only on 1 L of O2, yet desat without it to as low as 82% Physical Exam 2 Vital Signs: Vital Signs: Last Vital Signs Temp 97.4 F 05/04/25 07:23 Pulse 85 05/04/25 08:11 Resp 18 05/04/25 08:11 BP 119/56 L 05/04/25 07:23 Pulse Ox 94 05/04/25 07:23 O2 Del Method Nasal Cannula 05/04/25 07:23 O2 Flow Rate 1 05/04/25 07:23 BMI result Body Mass Index 19.6 Const: Other: General: AO X 2, no acute distress Resp: CTA bilateral CVS: S1,S2,RRR GI: +BS, NT, no distention Skin: No rash Neuro: motor grossly intact Psych: appropriate affect Objective Data Active Medications Acetaminophen (Acetaminophen 325 Mg Tablet) 975 mg PO Q6H PRN PRN Reason: Pain, Mild 1-3,fever,headache Last Admin: 05/01/25 16:04 Dose: 975 mg Documented By: BRYAN Albuterol/Ipratropium (Albuterol/Iprat 2.5/0.5mg 3 Ml Ampul.Neb) 3 ml INHALE RQ4H WHILE AWAKE [facility] Last Admin: 05/04/25 08:05 Dose: 3 ml Documented By: ARLETTE Atenolol (Atenolol 25 Mg Tablet) 25 mg PO DAILY [facility]; Protocol Last Admin: 05/04/25 08:37 Dose: 25 mg Documented By: KELLEY Atorvastatin Calcium (Atorvastatin Calcium 40 Mg Tablet) 40 mg PO BEDTIME [facility] Last Admin: 05/03/25 20:36 Dose: 40 mg Documented By: BINDU Calcium Carbonate (Calcium Carbonate 750 Mg Tab.Chew) 750 mg PO Q4H PRN PRN Reason: Heartburn Ceftriaxone Sodium (Ceftriaxone Sodium 1 Gm Vial) 1 gm IVPUSH Q24H [facility] Last Admin: 05/03/25 17:14 Dose: 1 gm Documented By: KELLEY Clozapine (Clozapine 25 Mg Tablet) 75 mg PO DAILY [facility] Last Admin: 05/04/25 08:37 Dose: 75 mg Documented By: KELLEY Clozapine (Clozapine 100 Mg Tablet) 100 mg PO BID [facility] Last Admin: 05/03/25 20:36 Dose: 100 mg Documented By: BINDU Desmopressin Acetate (Desmopressin Acetate 0.2 Mg Tablet) 0.1 mg PO BEDTIME [facility] Last Admin: 05/03/25 20:36 Dose: 0.1 mg Documented By: BINDU Dextrose (Dextrose 50 % 25 Gm/50 Ml Syringe) 25 gm IVPUSH Q15M PRN; Protocol PRN Reason: per Hypoglycemia Standing Ord. Docusate Sodium (Docusate Sodium 100 Mg Capsule) 100 mg PO BID PRN PRN Reason: Constipation Last Admin: 05/02/25 08:08 Dose: 100 mg Documented By: BRYAN Enoxaparin Sodium (Enoxaparin Sodium 40 Mg/0.4 Ml Syringe) 40 mg SUBCUT Q24H [facility] Last Admin: 05/03/25 20:36 Dose: 40 mg Documented By: BINDU Fluphenazine HCl (Fluphenazine Hcl 1 Mg Tablet) 1 mg PO BEDTIME [facility] Last Admin: 05/03/25 20:35 Dose: 1 mg Documented By: BINDU Fluticasone Propionate (Fluticasone Propionate Nasal 16 Gm [place]) 1 spray NOSTRIL-B DAILY [facility] Last Admin: 05/03/25 14:36 Dose: Not Given Documented By: KELLEY Non-Admin Reason: Patient Refused Fluticasone/Umeclidinium/Vilanterol (Fluticasone/Umeclidinium/Vilanterol 100/62.5/25 Blst.W.Dev) 1 puff INHALE RDAILY [facility] Last Admin: 05/04/25 08:05 Dose: 1 puff Documented By: ARLETTE Gabapentin (Gabapentin 600 Mg Tablet) 600 mg PO TID [facility] Last Admin: 05/04/25 08:37 Dose: 600 mg Documented By: KELLEY Glipizide (Glipizide Xl 2.5 Mg Tab.Er.24) 2.5 mg PO DAILY [facility] Last Admin: 05/04/25 08:37 Dose: 2.5 mg Documented By: KELLEY Glucose (Glucose Gel 15 Gm Gel..Gram.) 15 gm PO Q15M PRN; Protocol PRN Reason: per Hypoglycemia Standing Ord. Metronidazole (Flagyl) 500 mg in 100 mls @ 100 mls/hr IV Q8H [facility] Last Infusion: 05/04/25 07:00 Dose: Infused Documented By: KELLEY Insulin Glargine (Insulin Glargine,Hum.Rec.Anlog 100 Unit/Ml 10 Ml Vial) 15 unit SUBCUT BEDTIME [facility] Last Admin: 05/03/25 20:37 Dose: 15 unit Documented By: BINDU Insulin Human Lispro (Insulin Lispro 100 Unit/Ml 3 Ml Vial) 0 unit SUBCUT QIDACHS [facility]; Protocol Last Admin: 05/04/25 07:40 Dose: Not Given Documented By: KELLEY Non-Admin Reason: No Insulin Coverage Levothyroxine Sodium (Levothyroxine Sodium 175 Mcg Tablet) 175 mcg PO DAILY@0630 [facility] Last Admin: 05/04/25 05:59 Dose: 175 mcg Documented By: SULLY Lidocaine (Lidocaine 4 % Patch Adh..Patch) 1 patch TRANSDERMA DAILY [facility]; Protocol Last Admin: 05/04/25 08:39 Dose: 1 patch Documented By: KELLEY [place] Carbonate ([place] Carbonate Er 450 Mg Tablet.Er) 450 mg PO BID [facility] Last Admin: 05/04/25 08:37 Dose: 450 mg Documented By: KELLEY Loratadine (Loratadine 10 Mg Tablet) 10 mg PO DAILY [facility] Last Admin: 05/04/25 08:37 Dose: 10 mg Documented By: KELLEY Magnesium Hydroxide (Milk Of Magnesia 30 Ml Oral.Susp) 30 ml PO DAILY PRN PRN Reason: Constipation Melatonin (Melatonin 3 Mg Tablet) 6 mg PO BEDTIME PRN PRN Reason: Insomnia Metformin HCl (Metformin Hcl 1,000 Mg Tablet) 1,000 mg PO BIDWM [facility] Last Admin: 05/04/25 08:37 Dose: 1,000 mg Documented By: KELLEY Nicotine (Nicotine 21 Mg Patch.Td24) 21 mg TRANSDERMA DAILY [facility] Last Admin: 05/04/25 08:38 Dose: 21 mg Documented By: KELLEY Nicotine Polacrilex (Nicotine Polacrilex Lozenge 2 Mg Lozenge) 2 mg BUCCAL Q2H PRN PRN Reason: Nicotine Cravings Oxycodone HCl (Oxycodone Hcl Immed Release 5 Mg Tablet) 5 mg PO Q6H PRN PRN Reason: Pain, Severe (Pain Scale 7-10) Last Admin: 04/30/25 14:11 Dose: 5 mg Documented By: DOE Prednisone (Prednisone 20 Mg Tablet) 20 mg PO DAILY [facility] Last Admin: 05/04/25 08:36 Dose: 20 mg Documented By: KELLEY Sodium Chloride (0.9 % Sodium Chloride Flush 3 Ml Syringe) 3 ml IVFLUSH QSHIFT [facility] Last Admin: 05/04/25 08:39 Dose: 3 ml Documented By: KELLEY Tamsulosin HCl (Tamsulosin Hcl 0.4 Mg Capsule) 0.4 mg PO BEDTIME [facility] Last Admin: 05/03/25 20:36 Dose: 0.4 mg Documented By: BINDU Tramadol HCl (Tramadol Hcl 50 Mg Tablet) 50 mg PO Q6H PRN PRN Reason: Pain, Moderate(Pain Scale 4-6) Labs 05/03/25 07:26 05/03/25 07:27 Labs: Laboratory Results - last 24 hr 05/03/25 05/03/25 05/03/25 11:13 15:34 20:27 POC Glucose 146 H 197 H 194 H 05/04/25 07:16 POC Glucose 133 H Microbiology Microbiology Results: Microbiology 04/28/25 15:41 Blood Culture - Final Blood - Venous No growth after 5 days. 04/28/25 15:18 Blood Culture - Final Blood - Venous No growth after 5 days. Assessment and Plan (1) Acute hypoxemic respiratory failure: Status: Acute Plan Patient is a 59-year-old male with a past medical history significant for history TBI, schizophrenia, IDDM, hypothyroid, asthma/COPD over lap, BPH and HLD who presented to the ED after being found on the floor at his detention for an unknown period of time. Acute hypoxic respiratory failure secondary to pneumonia with sepsis, likely aspiration type--sepsis resolved continue Ceftriaxone and Flagyl, has pen allergy---change to PO Ceftin and PO Flagyl for total of 10 days O2 to keep sat around 94 SHEAR HELPER recommends NDD3, aspiration precaution and MBS on outpatient basis He might need home O2 Acute asthma/COPD overlap exacerbation d/t above bronchodilators, stop PO steroid today Elevated troponin -- secondary to hypoxia 423 initially, 448 on repeat EKG nonischemic monitor on tele no indication for further testing Tobacco use disorder nicotine patch smoking cessation encouraged Schizophrenia continue home meds IDDM with hyperglycemia d/t steroid SSI Lantus 15, metformin and glipizide and sliding scale diabetic diet Hypothyroid continue levothyroxine HLD statin HTN atenolol schizophrenia lozapine, fluphenazine, lithium, clonazepam BPH tamsulosin Chronic pain, continue home pain meds tobacco abuse NRT--patch and gum Full code VTE prophylaxis: Lovenox PT and OT evel recommends STR if still requiring O2 and cannot be managed by group Quality Stroke Does the patient have a stroke diagnosis?: No VTE Prior VTE?: No VTE Risk Level:: Medical - moderate - high VTE Device Contraindication: Treatment Not Indicated VTE Drug Contraindication: N/A - Med Ordered
[2025-05-04 11:15] LABS: Glucose, Whole Blood 173 mg/dL (60-115)
[2025-05-04] MEDS: cefuroxime axetiL 500 MG TABLET PO (11:56)
[2025-05-04] MEDS: Insulin Lispro 100 UNIT/ML 3 ML VIAL SUBCUT ×3 (11:56→21:27)
[2025-05-04] MEDS: Fluticasone Propionate Nasal 16 GM SPRAY 1 SPRAY NOSTRIL-B (11:57)
[2025-05-04] MEDS: metroNIDAZOLE 500 MG TABLET PO (14:47)
--- NOTE | 2025-05-04 15:36 | MHC.CM.PN ---
This CM met with pt to discuss him going to STR due to continuing to need O2, and being unable to return to the custodial with O2. Pt is in agreement with going to [facility], [facility] is his preference in facilities. Bed offer received from [facility], he accepted the bed offer. Will plan for pt to discharge to [facility] tomorrow at 11am via BLS/[facility]. Pts group manager [place] was called and notified of the discharge plan.
--- NOTE | 2025-05-04 15:50 | MHC.SL.SWA ---
Dysphasia Diet Status: No change Liquid Consistency and Strategies for Safe Swallow: Liquid Intake Recommendation: Thin Liquid Intake Strategies: Solid Food Consistency: Dietary Recommendations: Chopped/Advanced (NDD3) Additional Modifications to Solid Foods: Oral Medication Intake: Crushed with Puree Please contact the pharmacy regarding appropriate crushable or liquid drug formulations that are available whenever modified delivery is recommended. Compensatory Strategies and Precautions to be Taken for Safe Swallow: Sitting Upright (90 deg) No Straw Small Bites and Sips Alternate Liquids/Solids Rate of Ingestion Change Supervision While Eating and Drinking for Safe Swallow: Direct Supervision (1:1) Swallowing Recommended Treatments: Compens. Strategy Educat. Recommendation for Speech: Further Testing Needed Speech Therapy through [facility] Modified Barium Swallow Study - outpatient Comment: Continue w/ NDD3 with thin liquids. Soft sandwiches OK. Meds crushed w/ puree. Recommend CADET DECK tx upon d/c with outpatient [facility]SS (i.e.[facility]). Assembly Machine Tool Setter Clinican/Clinical Fellow: No Supervisory Statement: I have reviewed and agree with the student/clinical fellow's documentation: N/A Speech Language Pathologist: Do Nicole M.A,. CCC-CADET DECK
[2025-05-04 16:18] LABS: Glucose, Whole Blood 256 mg/dL (60-115)
[2025-05-04] MEDS: fluPHENAZine HCl 1 MG TABLET PO (20:02)
[2025-05-04] MEDS: Desmopressin Acetate 0.2 MG TABLET 0.1 MG PO (20:02)
[2025-05-04] MEDS: Tamsulosin HCL 0.4 MG CAPSULE PO (20:02)
[2025-05-04] MEDS: Atorvastatin Calcium 40 MG TABLET PO (20:03)
[2025-05-04] MEDS: Insulin Glargine,Hum.rec.anlog 100 UNIT/ML 10 ML VIAL 15 UNIT SUBCUT (20:07)
[2025-05-04] MEDS: Nicotine Polacrilex Lozenge 2 MG LOZENGE BUCCAL (20:09)
[2025-05-04 20:50] LABS: Glucose, Whole Blood 362 mg/dL (60-115)
[2025-05-05] MEDS: Enoxaparin Sodium 40 MG/0.4 ML SYRINGE SUBCUT (00:21)
[2025-05-05] MEDS: cefuroxime axetiL 500 MG TABLET PO ×2 (00:22→11:31)
[2025-05-05] MEDS: metroNIDAZOLE 500 MG TABLET PO ×2 (00:22→05:38)
[2025-05-05 04:00] VITALS: BP 124/57; PULSE 69; RESP 16; TEMP 36.6; O2SAT 98
[2025-05-05] MEDS: Levothyroxine Sodium 175 MCG TABLET PO (05:38)
[2025-05-05] MEDS: ondansetron HCL 4 MG/2 ML VIAL IVPUSH (05:38)
[2025-05-05 07:26] LABS: Glucose, Whole Blood 85 mg/dL (60-115)
[2025-05-05 07:31] VITALS: BP 119/57; PULSE 73; RESP 17; TEMP 36.6; O2SAT 96
[2025-05-05 08:12] VITALS: PULSE 73; RESP 17; O2SAT 97
[2025-05-05] MEDS: Albuterol/Iprat 2.5/0.5MG 3 ML AMPUL.NEB INHALE (08:12)
[2025-05-05] MEDS: Fluticasone/Umeclidinium/Vilanterol 100/62.5/25 BLST.W.DEV 1 PUFF INHALE (08:14)
--- NOTE | 2025-05-05 08:33 | P.DS_ITS ---
DS: Providers Provider Date of Service: 05/05/25 Date of admission: 04/28/25 19:37 Date of discharge: 05/05/25 Primary care physician: Ginger Valero MD DS: Diagnosis Discharge Diagnosis (1) Acute hypoxemic respiratory failure: Status: Acute DS: Summary Hospital Course Hospital Course: HPI The patient is a 59-year-old male with a complex medical history including TBI, schizophrenia, insulin-dependent diabetes, hypothyroidism, asthma/COPD overlap, BPH, and HLD. He presented to the ED after being found on the floor of his [facility] for an unknown period. On arrival, he was severely hypoxic with an O2 saturation of 49% on room air, improving rapidly with 15L via non-rebreather. He stabilized on 3L via OxyMask with saturations >94%. He reported a cough and baseline swallowing difficulties but denied fevers, chills, nausea, or vomiting. Per EMS, he was hypotensive and more lethargic than baseline. Work up revealed pneumonia, presumed aspiration type and associated with hypoxia. Hospital Course: Acute Hypoxic Respiratory Failure secondary to Aspiration Pneumonia and Sepsis (Resolved): Treated initially with IV Ceftriaxone and Flagyl. Due to penicillin allergy, transitioned to PO Ceftin and PO Flagyl to complete a 10-day course. He continues to need Oxygen and for now will continue oxygen and to wean as jw Follow-up outpatient modified barium swallow (MBS) recommended. Swallowing precautions and NDD3 diet per BUSHWALKING GUIDE. Asthma-COPD Overlap Exacerbation: Managed with bronchodilators and systemic steroids. PO steroids discontinued ater 5 days Elevated Troponin (423, 448): Attributed to hypoxia. EKG non-ischemic; no further cardiac workup indicated. Monitored on telemetry during stay. Schizophrenia: Continued home psychiatric medications without change. IDDM with Hyperglycemia (Steroid-Induced):Hyperglycemia resolved, BS level is 85 this morning Managed with sliding scale insulin, Lantus 15 units, Metformin, and Glipizide. Diabetic diet initiated. Hypothyroidism: Continued on levothyroxine. Hyperlipidemia: Continued on statin therapy. Hypertension: Maintained on atenolol. BPH: Continued tamsulosin( Flomax) Chronic Pain: Continued home pain medications. Tobacco Use Disorder: Nicotine replacement therapy initiat smoking cessation discussed Primary Diagnosis: Acute hypoxic respiratory failure secondary to aspiration pneumonia with sepsis (resolved) Secondary Diagnoses: * Asthma-COPD overlap exacerbation * Schizophrenia * Insulin-dependent diabetes mellitus (IDDM) * Hypothyroidism * Benign prostatic hyperplasia (BPH) * Hyperlipidemia (HLD) * Hypertension (HTN) * Tobacco use disorder * Chronic pain * Elevated troponin secondary to hypoxia (non-ischemic) To short term rehab for less than 30 days Time Attestation Discharge Coordination Time (in mins): 45 Quality: Safe Use of Opioids Does Pt have an Active Cancer Diagnosis on the Problem List?: No Quality: Stroke Does the patient have a stroke diagnosis?: No Physical Exam Vital Signs: Vital Signs: Selected Entries 05/05/25 07:31 Temperature 97.8 F Pulse Rate 73 Respiratory Rate 17 Blood Pressure 119/57 L Pulse Oximetry 96 Oxygen Delivery Me thod Room Air DS: Data Data Completed and Pending Completed studies during hospitalization [Text1]: Procedures Excision of Right Foot Subcutaneous Tissue and Fascia, Open Approach (02/15/24) Excision of Small Intestine, Open Approach (02/15/24) Introduction of Anesthetic Agent into Peripheral Nerves and Plexi, Percutaneous Approach (02/15/24) Labs on day of discharge: Laboratory Results - last 24 hr 05/03/25 05/04/25 05/04/25 20:27 07:16 11:12 POC Glucose 194 H 133 H 173 H 05/04/25 05/04/25 16:09 20:42 POC Glucose 256 H 362 H* Discharge Plan Discharge Anticipated Discharge Date/Time: 05/05/25 21:04 Patient Disposition: Xfer SNF Discharge Diagnosis: Acute hypoxic resp failure, COPD excacerbation, bebe pneumonia likely aspiration type Referrals: [facility] [Outside] - 1 Week Ginger Fulton MD [Primary Care Provider, Internal Medicine] - 1 Week Discharge Medications: New cefuroxime axetil 500 mg Tablet 500 mg PO Q12H Qty: 4 0RF metronidazole 500 mg Tablet 500 mg PO Q8H Qty: 6 0RF Continued insulin lispro [Humalog U-100 Insulin] 100 unit/mL solution See Protocol subcut TIDAC Protocol: Insulin Correction Scale Less than or equal to 110 ---- Give (units): 0 111 to 150 Give (units): 0 151 to 200 Give (units): 2 201 to 250 Give (units): 6 251 to 300 Give (units): 8 301 to 350 Give (units): 10 Greater than 350 Give (units): 12 Call MD if Blood Glucose > : 350 albuterol sulfate [Ventolin HFA] 90 mcg/actuation Hfa Aerosol Inhaler 2 puff inhalation RQ4H PRN (Reason: Shortness Of Breath) 30 Days Qty: 1 0RF nicotine (polacrilex) 2 mg Lozenge 2 mg buccal Q2H PRN (Reason: Nicotine Cravings) 30 Days Qty: 108 0RF desmopressin 0.2 mg Tablet 0.1 mg PO BEDTIME 30 Days Qty: 15 0RF tamsulosin 0.4 mg Capsule 0.4 mg PO BEDTIME 30 Days Qty: 30 0RF glipizide 2.5 mg Tablet Extended Release 24hr 2.5 mg PO DAILY 30 Days Qty: 30 0RF Trelegy Ellipta 100-62.5-25 mcg Blister With Device 1 inh inhalation RDAILY 30 Days Qty: 60 0RF lidocaine [Lidocaine Pain Relief] 4 % Adhesive Patch,Medicated 1 patch transdermal DAILY 30 Days Qty: 30 0RF Protocol: Apply to: Apply to: left shoulder area docusate sodium 100 mg Capsule 100 mg PO BID PRN (Reason: constipation) 30 Days Qty: 60 0RF atorvastatin 40 mg tablet 40 mg PO BEDTIME 30 Days Qty: 30 0RF gabapentin 600 mg tablet 1 tab PO TID 30 Days Qty: 90 0RF lithium carbonate 450 mg tablet extended release 450 mg PO BID 30 Days Qty: 60 0RF fluphenazine HCl 1 mg tablet 1 mg PO BEDTIME 30 Days Qty: 30 0RF metformin 1,000 mg tablet 1 tab PO BIDWM 30 Days Qty: 60 0RF fluticasone propionate [Flonase Allergy Relief] 50 mcg/actuation Copen,Suspension 1 spray INTRANASAL DAILY 30 Days Qty: 1 0RF Rx Instructions: administer into each nostril cetirizine 5 mg tablet 5 mg PO DAILY atenolol 25 mg Tablet 25 mg PO DAILY levothyroxine 175 mcg tablet 175 mcg PO DAILY clozapine 100 mg Tablet 100 mg PO BID Rx Instructions: per [facility] patient takes 175 mg in the morning and 100 mg bedtime. Last dose 04/28/25 in AM clozapine 25 mg Tablet 75 mg PO DAILY Rx Instructions: per [facility] patient takes 175 mg in the morning and 100 mg bedtime. Last dose 04/28/25 in AM insulin glargine 100 unit/mL Solution 15 unit SUBCUT BEDTIME Discharge Orders: Discharge Order (Routine); Ordered 05/05/25 Ordered By: Judd Malone Diet: diabetic NDD3 Activity on Discharge: As tolerated Stand Alone Forms: Patient Portal Discharge page Print Language: Citizen Of [place] Other Ambulatory Orders: [place] Modified Barium Swallow (Routine) Timeframe: 1 Week Facility: [facility] - Location: Radiology Ordered By: Judd Malone Care Plan Goals: recovery from copd exacerbation, pneumonia and acute hypoxic respiratory failure Health Concerns: copd exacerbation, recurrent aspiration pneumonia, acute hypoxic respriatory failure Plan of Treatment: take ceftin and doxycyline as recommended and follo up with your doctor in 1 week use oxygen as directed with goal of O2 saturation of 88 to 94 % To short term rehab for elss than 30 days Diet: NDD3, chopped advanced and thin liquid Assessment: see above
[2025-05-05] MEDS: Gabapentin 600 MG TABLET PO (08:55)
[2025-05-05] MEDS: Loratadine 10 MG TABLET PO (08:55)
[2025-05-05] MEDS: glipiZIDE XL 2.5 MG TAB.ER.24 PO (08:55)
[2025-05-05] MEDS: metFORMIN HCl 1,000 MG TABLET 1000 MG PO (08:55)
[2025-05-05] MEDS: Lithium Carbonate ER 450 MG TABLET.ER PO (08:55)
[2025-05-05] MEDS: atenoloL 25 MG TABLET PO (08:56)
[2025-05-05] MEDS: Fluticasone Propionate Nasal 16 GM SPRAY 1 SPRAY NOSTRIL-B (08:57)
[2025-05-05] MEDS: 0.9 % Sodium Chloride Flush 3 ML SYRINGE IVFLUSH (08:58)
--- NOTE | 2025-05-05 09:53 | MHC.CM.PN ---
Second IMM given 05/05. Pt is medically cleared for discharge to STR at [facility] [place] today, he will transport there via BLS/[facility].
[2025-05-05 11:23] VITALS: BP 123/57; PULSE 75; RESP 17; TEMP 36.3; O2SAT 94
[2025-05-05 11:30] LABS: Glucose, Whole Blood 186 mg/dL (60-115)
[2025-05-05] MEDS: Nicotine Polacrilex Lozenge 2 MG LOZENGE BUCCAL (11:33)
== END 2025-05-05 12:00 | disposition skilled nursing facility (03) | DRG 871 ==
LOC: HO.ED 19:34 → HO.EDOVER 19:57 → HO.IMC 21:34
PROVIDERS: Physician Assistant; Admitting Provider Internal Medicine; Emergency Provider Emergency Medicine; PCP Internal Medicine; Visit Provider Internal Medicine
DX: A41.9 Sepsis, unspecified organism (principal); J69.0 Pneumonitis due to inhalation of food and vomit; J96.01 Acute respiratory failure with hypoxia; J44.1 Chronic obstructive pulmonary disease with (acute) exacerbation; J45.901 Unspecified asthma with (acute) exacerbation; F20.9 Schizophrenia, unspecified; E78.5 Hyperlipidemia, unspecified; E11.9 Type 2 diabetes mellitus without complications; E03.9 Hypothyroidism, unspecified; G89.29 Other chronic pain; F17.210 Nicotine dependence, cigarettes, uncomplicated; Z71.6 Tobacco abuse counseling; N40.0 Benign prostatic hyperplasia without lower urinary tract symptoms; Z20.822 Contact with and (suspected) exposure to COVID-19; Z87.820 Personal history of traumatic brain injury; Z79.4 Long term (current) use of insulin; Z79.84 Long term (current) use of oral hypoglycemic drugs; Z79.890 Hormone replacement therapy; Z79.899 Other long term (current) drug therapy
CPT/HCPCS: 0241U; 36415; 70450; 71045; 71275; 72125; 73030; 80048; 80076; 81001; 82550; 82803; 82947; 83605; 83690; 83880; 84484; 85025; 85027; 85379; 87040; 87086; 92610; 93005; 97116; 97162; 97166; 99285; J0696; J1271; J1650; J1836; J1885; J2270; J2405; J2919; J3475; J7120; Q9967

== ENCOUNTER → 2025-04-28 14:49 | Outpatient (BNV) | payer MEDICARE, MEDICAID, SELFPAY | PROVIDERS: Admitting Provider Internal Medicine; Emergency Provider Emergency Medicine; Visit Provider Internal Medicine Cardiovascular Disease | DX: R06.02 Shortness of breath (principal) | CPT/HCPCS: 93010 ==

== ENCOUNTER → 2025-04-28 14:49 | Outpatient (BNV) | payer MEDICARE, MEDICAID, SELFPAY | PROVIDERS: Emergency Provider Emergency Medicine; Visit Provider Radiology Diagnostic Radiology | DX: M25.511 Pain in right shoulder (principal); J84.9 Interstitial pulmonary disease, unspecified | CPT/HCPCS: 73030 ==

== ENCOUNTER 2025-04-28 19:37 | Outpatient (BNV) | payer MEDICARE, MEDICAID, SELFPAY | END 2025-04-29 05:39 | PROVIDERS: Admitting Provider Internal Medicine; Emergency Provider Emergency Medicine; Visit Provider Radiology Diagnostic Radiology | DX: R91.8 Other nonspecific abnormal finding of lung field (principal) | CPT/HCPCS: 71275 ==

== ENCOUNTER → 2025-04-28 19:37 | Outpatient (BNV) | payer MEDICARE, MEDICAID, SELFPAY | PROVIDERS: Admitting Provider Internal Medicine; Emergency Provider Emergency Medicine; Visit Provider Physician Assistant | DX: J96.01 Acute respiratory failure with hypoxia (principal) | CPT/HCPCS: 99223; 99232; 99239 ==

== ENCOUNTER 2025-06-04 08:22 | Emergency (ER) | payer MEDICARE, MEDICAID, SELFPAY ==
[2025-06-04] VITALS (7 sets, daily range): BP systolic 122–156; BP diastolic 57–70; PULSE 84–99; RESP 12–22; TEMP 36.8–37.2; O2SAT 92–98; BMI 20.8
[2025-06-04 08:44] LABS: Glucose, Whole Blood 48 mg/dL (60-115)
[2025-06-04 08:55] LABS: MANUAL DIFF FLAG NO
[2025-06-04 08:56] LABS: Hematocrit 37.7 % (42.0-52.0); Hemoglobin 11.1 g/dl (14.0-18.0); Imm Gran Abs Auto 0.08 X10*3/uL (0.00-0.03); Imm Gran Pct Auto 0.6 % (0.0-0.4); Lymphocytes Absolute Auto 2.0 X10*3/uL (1.2-4.9); Mean Corpuscular HGB Conc 29.4 g/dl (31.0-36.0); Mean Corpuscular Hemoglobin 25.1 pg (27.0-33.0); Mean Corpuscular Volume 85.1 fL (80.0-98.0); NRBC Abs Auto 0.000 X10*3/uL (0.0-0.012); NRBC Pct Auto 0.0 /100WBC (0.0-0.2); Platelet Count 298 X10*3/uL (160-400); Red Blood Count 4.43 X10*6/uL (4.60-5.80); White Blood Count 13.0 X10*3/uL (4.8-10.8)
[2025-06-04 09:05] LABS: Lithium 0.96 mmol/L (0.60-1.20)
[2025-06-04 09:12] LABS: Anion Gap 11 (12-20); Blood Urea Nitrogen 9 mg/dL (9-16); Calcium 9.7 mg/dL (8.4-10.2); Carbon Dioxide 29 mmol/L (22-29); Chloride 106 mmol/L (96-108); Creatinine Clr Calc Pharmacy 117.5; Estimated Glomerular Filt Rate > 60; Potassium 4.2 mmol/L (3.3-5.1); Sodium 142 mmol/L (135-145)
--- OUTSIDE RECORDS SUMMARY | 2025-06-04 09:12 | XMS_ITS | Encounter Summary ---
Author Organization [facility] Address [address] [place] [address] Care Team Providers Care Dividend Deposit Entry Clerk Name Role Phone Ginger Pate MD Primary Care Provider Encounter Details Date Type Department Care Team (Late st Contact Info) Description 02/02/2025 Lab Requisition [facility] - Main Lab [address] [place] [address] Michelle Erwin MD [address] [place] [address] Other roasterman (current) drug therapy Social History Tobacco Use Types Packs/Day Years Used Date Smoking Tobacco: Never Assessed Sex and Gender Information Value Date Recorded Sex Assigned at Not on file Legal Sex Male 7:02 PM EST Gender Identity Not on file Sexual Orientation Choose not to disclose 2024 1:43 AM EDT documented as of this encounter Plan of Treatment Not on file documented as of this encounter Procedures Procedure Name Priority Date/Time Associated Diagnosis Comments CBC WITH AUTO DIFFERENTIAL Routine 02/02/2025 10:58 AM EDT Other alf (current) drug therapy CBC AND DIFFERENTIAL Routine 02/02/2025 10:58 AM EDT Other alf (current) drug therapy documented in this encounter Results * (ABNORMAL) CBC auto differential (02/02/2025 10:58 AM EDT) [facility] WBC 9.1 4.8 - 10.8 K/mcL LAB HEMETOLOGY METHOD 02/02/2025 12:50 PM [facility] RBC 5.00 4.50 - 5.50 M/mcL LAB HEMETOLOGY METHOD 02/02/2025 12:50 PM EDT [facility] Hemoglobin 11.8(L) 13.5 - 17.5 g/dL LAB HEMETOLOGY METHOD 02/02/2025 12:50 PM [facility] Hematocrit 42.5 42.0 - 54.0 % LAB [facility]ETOLOGY [facility] M[facility] 84.7 79.0 - 98.0 FL LAB HEMETOLOGY METHOD [facility] MCH 23.5(L) 27.0 - 32.0 pcg LAB HEMETOLOGY METHOD 02/02/2025 12:50 PM [facility] MCHC 27.8(L) 32.0 - 37.0 g/dL LAB HEMETOLOGY METHOD 02/02/2025 12:50 PM [facility] RDW 19.4(H) 11.0 - 15.0 % LAB HEMETOLOGY METHOD 02/02/2025 12:50 PM EDT [facility] Platelets 352 130 - 400 K/mcL LAB HEMETOLOGY METHOD 02/02/2025 12:50 PM [facility] MPV 9.9 7.0 - 11.0 FL LAB HEMETOLOGY METHOD 02/02/2025 12:50 PM [facility] NRBC 0.0 <1.0 % LAB HEMETOLOGY METHOD 02/02/2025 12:50 PM EDT [facility] NRBC Absolute 0.00 <0.10 K/mcL LAB HEMETOLOGY METHOD 02/02/2025 12:50 PM EDT [facility] Neutrophils Relative 69.0 % LAB HEMETOLOGY METHOD 02/02/2025 12:50 PM [facility] Lymphocytes Relative 22.5 % LAB HEMETOLOGY METHOD 02/02/2025 12:50 PM EDT [facility] Monocytes Relative 7.1 % LAB HEMETOLOGY METHOD 02/02/2025 12:50 PM EDT [facility] Eosinophils Relative 0.4 % LAB HEMETOLOGY METHOD 02/02/2025 12:50 PM T [facility] Basophils Relative 0.7 % LAB HEMETOLOGY METHOD 02/02/2025 12:50 PM [facility] Immature Granulocytes Relative 0.3 % LAB HEMETOLOGY METHOD 02/02/2025 12:50 PM [facility] Neutrophils Absolute 6.24 1.50 - 7.00 K/mcL LAB HEMETOLOGY METHOD 02/02/2025 12:50 PM [facility] Lymphocytes Absolute 2.04 1.00 - 5.00 K/mcL LAB HEMETOLOGY METHOD 02/02/2025 12:50 PM [facility] Monocytes Absolute 0.64 0.20 - 1.00 K/mcL LAB HEMETOLOGY METHOD 02/02/2025 12:50 PM T [facility] Eosinophils Absolute 0.04 0.00 - 0.50 K/mcL LAB HEMETOLOGY METHOD 02/02/2025 12:50 PM T [facility] Basophils Absolute 0.06 0.00 - 0.20 K/mcL LAB HEMETOLOGY METHOD 02/02/2025 12:50 PM [facility] Immature Granulocytes Absolute 0.03 0.00 - 0.03 K/mcL LAB HEMETOLOGY METHOD 02/02/2025 12:50 PM EDT [facility] Blood Venous blood specimen / Unknown Venipuncture / Unknown 02/02/2025 10:58 AM EDT 02/02/2025 12:20 PM EDT us Michelle Erwin MD LAB BLOOD ORDERABLES Fi nal Result [facility] [address] [place] [address], documented in this encounter Visit Diagnoses Diagnosis Other alf (current) drug therapy documented in this encounter Additional Health Concerns Infection Onset Date Last Indicated Resolved Time Respiratory Rule-Out 03/22/2025 03/22/2025 025 5:02 AM EDT COVID-19 Rule-Out 03/22/2025 03/22/2025 03/22/2025 5:02 AM EDT documented as of this encounter Care Teams Dividend Deposit Entry Clerk Relationship Specialty Start Date End Date Ginger Pate MD [address] [place] [id number] PCP - General Internal Medicine 03/22/25 documented as of this encounter
--- OUTSIDE RECORDS SUMMARY | 2025-06-04 09:12 | XMS_ITS ---
Author Name [facility] Organization Unknown Results Test Name/Text Value Interpretation Date Range Source Glucose Bld-mCnc 127.0 mg/dL 04/07/2025 70 - 199 [facility] Glucose Bld-mCnc 226.0 mg/dL Above high normal 04/07/2025 - [facility] Glucose Bld-mCnc 248.0 mg/dL Above high normal 04/06/2025 - [facility] Glucose Bld-mCnc 83.0 mg/dL 04/06/2025 - C [facility] Glucose Bld-mCnc 163.0 mg/dL 04/06/2025 - [facility] Glucose Bld-mCnc 129.0 mg/dL 04/06/2025 - [facility] Glucose Bld-mCnc 339.0 mg/dL Above high normal 04/05/2025 - [facility] Glucose Bld-mCnc 127.0 mg/dL 04/05/2025 - [facility] Glucose Bld-mCnc 114.0 mg/dL 04/05/2025 - [facility] Glucose Bld-mCnc 335.0 mg/dL Above high normal 04/05/2025 - [facility] Glucose Bld-mCnc 361.0 mg/dL Above high normal 04/04/2025 - [facility] Glucose Bld-mCnc 113.0 mg/dL 04/04/2025 - [facility] Glucose Bld-mCnc 304.0 mg/dL Above high normal 04/04/2025 - [facility] Magnesium SerPl-mCnc 1.9 mg/dL 04/04/2025 1.7 - 2.8 [facility] Phosphate SerPl-mCnc 3.6 mg/dL 04/04/2025 2.5 - 4.5 [facility] Anion Gap SerPl Calc-sCnc 4.0 Below low normal 04/04/2025 5 - 14 [facility] CO2 SerPl-sCnc 32.0 mmol/L 04/04/2025 24 - 32 [facility] BUN SerPl-mCnc 15.0 mg/dL 04/04/2025 9 - 20 [facility] Potassium SerPl-sCnc 4.1 mmol/L 04/04/2025 3.5 - 5.1 [facility] eGFRcr SerPlBld CKD-EPI 2020 102.0 mL/min/1.73m2 04/04/2025 - [facility] Glucose SerPl-mCnc 373.0 mg/dL Above high normal 04/04/2025 70 - 199 [facility] BUN/Creat SerPl 18.8 04/04/2025 12 - 20 [facility] Chloride SerPl-sCnc 98.0 mmol/L 04/04/2025 98 - 107 [facility] Creat SerPl-mCnc 0.8 mg/dL 04/04/2025 0.7 - 1.3 CT [facility] Calcium SerPl-mCnc 8.7 mg/dL 04/04/2025 8.4 - 10.2 [facility] Sodium SerPl-sCnc 134.0 mmol/L Below low normal 04/04/2025 1 35 - 145 [facility] Neutrophils # Bld Auto 6.9 K/mcL 04/04/2025 1.8 - 7.8 [facility] RDW RBC Auto 17.8 % Above high normal 04/04/2025 12.1 - 1 7.7 [facility] RBC Auto 76.6 FL Below low normal 04/04/2025 78 - 100 [facility] MCH RBC Qn Auto 23.3 pcg Below low normal 04/04/2025 25 - 3 3 [facility] Neutrophils NFr Bld Auto 66.7 % 04/04/2025 44 - 74 [facility] Monocytes # Bld Auto 0.6 K/mcL 04/04/2025 0 - 0.8 [facility] Basophils # Bld Auto 0.0 K/mcL 04/04/2025 0 - 0.2 [facility] Lymphocytes NFr Bld Auto 26.2 % 04/04/2025 20 - 48 [facility] Eosinophil NFr Bld Auto 0.5 % 04/04/2025 0 - 6 [facility] Lymphocytes # Bld Auto 2.7 K/mcL 04/04/2025 1 - 3.2 [facility] Hgb Bld-mCnc 11.2 g/dL Below low normal 04/04/2025 13.5 - 18 [facility] PMV Bld Auto 8.2 FL 04/04/2025 7.4 - 11.4 [facility] Platelet # Bld Auto 284.0 K/mcL 04/04/2025 150 - 450 [facility] Hct VFr Bld Auto 36.8 % Below low normal 04/04/2025 40 - 54 [facility] MCHC RBC Auto-EntMCnc 30.4 g/dL Below low normal 04/04/2025 32 - 36 [facility] RBC # Bld Auto 4.81 M/mcL 04/04/2025 4.7 - 6 [facility] WBC # Bld Auto 10.4 K/mcL 04/04/2025 4 - 10.5 [facility] Basophils NFr Bld Auto 0.4 % 04/04/2025 0 - 2 [facility] Monocytes NFr Bld Auto 6.2 % 04/04/2025 2 - 12 [facility] Eosinophil # Bld Auto 0.0 K/mcL 04/04/2025 0 - 0.5 [facility] Glucose Bld-mCnc 240.0 mg/dL Above high normal 04/04/2025 70 - 199 [facility] Glucose Bld-mCnc 236.0 mg/dL Above high normal 04/03/2025 70 - 199 [facility] Glucose Bld-mCnc 132.0 mg/dL 04/03/2025 70 - 199 [facility] Glucose Bld-mCnc 97.0 mg/dL 04/03/2025 70 - 199 [facility] Sodium SerPl-sCnc 138.0 mmol/L 04/03/2025 135 - 14 5 [facility] BUN SerPl-mCnc 16.0 mg/dL 04/03/2025 9 - 20 [facility] Creat SerPl-mCnc 0.6 mg/dL Below low normal 04/03/2025 0.7 - 1.3 [facility] eGFRcr SerPlBld CKD-EPI 2020 111.0 mL/min/1.73m2 04/03/2025 - [facility] Anion Gap SerPl Calc-sCnc 7.0 04/03/2025 5 - 14 [facility] Glucose SerPl-mCnc 150.0 mg/dL Above high normal 04/03/2025 70 - 99 [facility] BUN/Creat SerPl 26.7 Above high normal 04/03/2025 12 - 20 [facility] Chloride SerPl-sCnc 101.0 mmol/L 04/03/2025 98 - 107 [facility] CO2 SerPl-sCnc 30.0 mmol/L 04/03/2025 24 - 32 [facility] Calcium SerPl-mCnc 9.5 mg/dL 04/03/2025 8.4 - 10.2 [facility] Potassium SerPl-sCnc 3.9 mmol/L 04/03/2025 3.5 - 5.1 [facility] Phosphate SerPl-mCnc 3.2 mg/dL 04/03/2025 2.5 - 4.5 [facility] Magnesium SerPl-mCnc 1.9 mg/dL 04/03/2025 1.7 - 2.8 [facility] Hct VFr Bld Auto 40.2 % 04/03/2025 40 - 54 [facility] RBC Auto 77.2 FL Below low normal 04/03/2025 78 - 100 [facility] Monocytes NFr Bld Auto 6.2 % 04/03/2025 2 - 12 [facility] PMV Bld Auto 8.6 FL 04/03/2025 7.4 - 11.4 [facility] Eosinophil # Bld Auto 0.0 K/mcL 04/03/2025 0 - 0.5 [facility] RBC # Bld Auto 5.21 M/mcL 04/03/2025 4.7 - 6 [facility] MCHC RBC Auto-EntMCnc 30.4 g/dL Below low normal 04/03/2025 32 - 36 [facility] Neutrophils NFr Bld Auto 72.6 % 04/03/2025 44 - 74 [facility] Lymphocytes # Bld Auto 2.7 K/mcL 04/03/2025 1 - 3.2 [facility] Monocytes # Bld Auto 0.8 K/mcL 04/03/2025 0 - 0.8 [facility] Neutrophils # Bld Auto 9.6 K/mcL Above high normal 04/03/2025 1.8 - 7.8 [facility] WBC # Bld Auto 13.2 K/mcL Above high normal 04/03/2025 4 - 1 0.5 [facility] Platelet # Bld Auto 291.0 K/mcL 04/03/2025 150 - 450 [facility] Lymphocytes NFr Bld Auto 20.6 % 04/03/2025 20 - 48 [facility] Basophils # Bld Auto 0.0 K/mcL 04/03/2025 0 - 0.2 [facility] RDW RBC Auto 18.4 % Above high normal 04/03/2025 12.1 - 1 7.7 [facility] MCH RBC Qn Auto 23.5 pcg Below low normal 04/03/2025 25 - 3 3 [facility] Basophils NFr Bld Auto 0.3 % 04/03/2025 0 - 2 [facility] Hgb Bld-mCnc 12.2 g/dL Below low normal 04/03/2025 13.5 - 18 [facility] Eosinophil NFr Bld Auto 0.3 % 04/03/2025 0 - 6 [facility] Glucose Bld-mCnc 394.0 mg/dL Above high normal 04/03/2025 70 - 199 [facility] Glucose Bld-mCnc 266.0 mg/dL Above high normal 04/02/2025 70 - 199 [facility] Glucose Bld-mCnc 112.0 mg/dL 04/02/2025 70 - 199 [facility] Glucose Bld-mCnc 95.0 mg/dL 04/02/2025 70 - 199 [facility] Anion Gap SerPl Calc-sCnc 5.0 04/02/2025 5 - 14 [facility] Calcium SerPl-mCnc 9.5 mg/dL 04/02/2025 8.4 - 10.2 [facility] Potassium SerPl-sCnc 3.9 mmol/L 04/02/2025 3.5 - 5.1 [facility] Chloride SerPl-sCnc 103.0 mmol/L 04/02/2025 98 - 107 [facility] BUN SerPl-mCnc 16.0 mg/dL 04/02/2025 9 - 20 [facility] eGFRcr SerPlBld CKD-EPI 2020 117.0 mL/min/1.73m2 04/02/2025 - [facility] Creat SerPl-mCnc 0.5 mg/dL Below low normal 04/02/2025 0.7 - 1.3 [facility] BUN/Creat SerPl 32.0 Above high normal 04/02/2025 12 - 20 [facility] CO2 SerPl-sCnc 34.0 mmol/L Above high normal 04/02/2025 24 - 32 [facility] Sodium SerPl-sCnc 142.0 mmol/L 04/02/2025 135 - 14 5 [facility] Glucose SerPl-mCnc 105.0 mg/dL 04/02/2025 70 - 199 [facility] Magnesium SerPl-mCnc 1.8 mg/dL 04/02/2025 1.7 - 2.8 [facility] Phosphate SerPl-mCnc 2.7 mg/dL 04/02/2025 2.5 - 4.5 [facility] Lymphocytes # Bld Auto 2.9 K/mcL 04/02/2025 1 - 3.2 [facility] Lymphocytes NFr Bld Auto 24.8 % 04/02/2025 20 - 48 [facility] MCHC RBC Auto-EntMCnc 30.2 g/dL Below low normal 04/02/2025 32 - 36 [facility] Neutrophils # Bld Auto 8.0 K/mcL Above high normal 04/02/2025 1.8 - 7.8 [facility] MCH RBC Qn Auto 23.4 pcg Below low normal 04/02/2025 25 - 3 3 [facility] Monocytes # Bld Auto 0.8 K/mcL 04/02/2025 0 - 0.8 [facility] Eosinophil # Bld Auto 0.0 K/mcL 04/02/2025 0 - 0.5 [facility] PMV Bld Auto 8.4 FL 04/02/2025 7.4 - 11.4 [facility] Basophils # Bld Auto 0.0 K/mcL 04/02/2025 0 - 0.2 [facility] Platelet # Bld Auto 281.0 K/mcL 04/02/2025 150 - 450 [facility] Eosinophil NFr Bld Auto 0.3 % 04/02/2025 0 - 6 [facility] RBC Auto 77.3 FL Below low normal 04/02/2025 78 - 100 [facility] RBC # Bld Auto 5.0 M/mcL 04/02/2025 4.7 - 6 [facility] Hct VFr Bld Auto 38.6 % Below low normal 04/02/2025 40 - 54 [facility] Hgb Bld-mCnc 11.7 g/dL Below low normal 04/02/2025 13.5 - 18 [facility] Monocytes NFr Bld Auto 6.5 % 04/02/2025 2 - 12 [facility] WBC # Bld Auto 11.7 K/mcL Above high normal 04/02/2025 4 - 1 0.5 [facility] RDW RBC Auto 18.5 % Above high normal 04/02/2025 12.1 - 1 7.7 [facility] Neutrophils NFr Bld Auto 68.2 % 04/02/2025 44 - 74 [facility] Basophils NFr Bld Auto 0.2 % 04/02/2025 0 - 2 [facility] Glucose Bld-mCnc 329.0 mg/dL Above high normal 04/02/2025 70 - 199 [facility] Glucose Bld-mCnc 385.0 mg/dL Above high normal 04/01/2025 70 - 199 [facility] Glucose Bld-mCnc 184.0 mg/dL 04/01/2025 70 - 199 [facility] Glucose Bld-mCnc 110.0 mg/dL 04/01/2025 70 - 199 [facility] Phosphate SerPl-mCnc 3.1 mg/dL 04/01/2025 2.5 - 4.5 [facility] Creat SerPl-mCnc 0.6 mg/dL Below low normal 04/01/2025 0.7 - 1.3 [facility] Sodium SerPl-sCnc 142.0 mmol/L 04/01/2025 135 - 14 5 [facility] Potassium SerPl-sCnc 4.0 mmol/L 04/01/2025 3.5 - 5.1 [facility] Anion Gap SerPl Calc-sCnc 6.0 04/01/2025 5 - 14 [facility] eGFRcr SerPlBld CKD-EPI 2020 111.0 mL/min/1.73m2 04/01/2025 - [facility] Glucose SerPl-mCnc 112.0 mg/dL 04/01/2025 70 - 199 [facility] Calcium SerPl-mCnc 10.1 mg/dL 04/01/2025 8.4 - 10. 2 [facility] CO2 SerPl-sCnc 36.0 mmol/L Above high normal 04/01/2025 24 - 32 [facility] BUN/Creat SerPl 21.7 Above high normal 04/01/2025 12 - 20 [facility] BUN SerPl-mCnc 13.0 mg/dL 04/01/2025 9 - 20 [facility] Chloride SerPl-sCnc 100.0 mmol/L 04/01/2025 98 - 107 [facility] Magnesium SerPl-mCnc 2.0 mg/dL 04/01/2025 1.7 - 2.8 [facility] MCH RBC Qn Auto 23.4 pcg Below low normal 04/01/2025 25 - 3 3 [facility] Monocytes # Bld Auto 0.7 K/mcL 04/01/2025 0 - 0.8 [facility] Neutrophils NFr Bld Auto 70.3 % 04/01/2025 44 - 74 [facility] Eosinophil NFr Bld Auto 0.4 % 04/01/2025 0 - 6 [facility] Lymphocytes NFr Bld Auto 23.3 % 04/01/2025 20 - 48 [facility] Hgb Bld-mCnc 13.6 g/dL 04/01/2025 13.5 - 18 [facility] Neutrophils # Bld Auto 8.0 K/mcL Above high normal 04/01/2025 1.8 - 7.8 [facility] RBC # Bld Auto 5.81 M/mcL 04/01/2025 4.7 - 6 [facility] Lymphocytes # Bld Auto 2.7 K/mcL 04/01/2025 1 - 3.2 [facility] Platelet # Bld Auto 274.0 K/mcL 04/01/2025 150 - 450 [facility] RBC Auto 77.2 FL Below low normal 04/01/2025 78 - 100 [facility] PMV Bld Auto 8.4 FL 04/01/2025 7.4 - 11.4 [facility] Eosinophil # Bld Auto 0.0 K/mcL 04/01/2025 0 - 0.5 [facility] Basophils # Bld Auto 0.0 K/mcL 04/01/2025 0 - 0.2 [facility] RDW RBC Auto 17.8 % Above high normal 04/01/2025 12.1 - 1 7.7 [facility] Monocytes NFr Bld Auto 5.8 % 04/01/2025 2 - 12 [facility] MCHC RBC Auto-EntMCnc 30.3 g/dL Below low normal 04/01/2025 32 - 36 [facility] Hct VFr Bld Auto 44.8 % 04/01/2025 40 - 54 [facility] WBC # Bld Auto 11.4 K/mcL Above high normal 04/01/2025 4 - 1 0.5 [facility] Basophils NFr Bld Auto 0.2 % 04/01/2025 0 - 2 [facility] Glucose Bld-mCnc 386.0 mg/dL Above high normal 04/01/2025 70 - 199 [facility] Glucose Bld-mCnc 356.0 mg/dL Above high normal 03/31/2025 70 - 199 [facility] Glucose Bld-mCnc 149.0 mg/dL 03/31/2025 70 - 199 [facility] Glucose Bld-mCnc 92.0 mg/dL 03/31/2025 70 - 199 [facility] Phosphate SerPl-mCnc 3.1 mg/dL 03/31/2025 2.5 - 4.5 [facility] CO2 SerPl-sCnc 36.0 mmol/L Above high normal 03/31/2025 24 - 32 [facility] Chloride SerPl-sCnc 102.0 mmol/L 03/31/2025 98 - 107 [facility] Potassium SerPl-sCnc 4.0 mmol/L 03/31/2025 3.5 - 5.1 [facility] Sodium SerPl-sCnc 141.0 mmol/L 03/31/2025 135 - 14 5 [facility] eGFRcr SerPlBld CKD-EPI 2020 117.0 mL/min/1.73m2 03/31/2025 - [facility] Calcium SerPl-mCnc 9.4 mg/dL 03/31/2025 8.4 - 10.2 [facility] Creat SerPl-mCnc 0.5 mg/dL Below low normal 03/31/2025 0.7 - 1.3 [facility] BUN/Creat SerPl 30.0 Above high normal 03/31/2025 12 - 20 [facility] Anion Gap SerPl Calc-sCnc 3.0 Below low normal 03/31/2025 5 - 14 [facility] BUN SerPl-mCnc 15.0 mg/dL 03/31/2025 9 - 20 [facility] Glucose SerPl-mCnc 92.0 mg/dL 03/31/2025 70 - 199 [facility] Magnesium SerPl-mCnc 2.0 mg/dL 03/31/2025 1.7 - 2.8 [facility] Eosinophil # Bld Auto 0.1 K/mcL 03/31/2025 0 - 0.5 [facility] Eosinophil NFr Bld Auto 0.5 % 03/31/2025 0 - 6 [facility] Platelet # Bld Auto 271.0 K/mcL 03/31/2025 150 - 450 [facility] MCHC RBC Auto-EntMCnc 30.8 g/dL Below low normal 03/31/2025 32 - 36 [facility] Hct VFr Bld Auto 38.6 % Below low normal 03/31/2025 40 - 54 [facility] Monocytes NFr Bld Auto 5.8 % 03/31/2025 2 - 12 [facility] Basophils NFr Bld Auto 0.4 % 03/31/2025 0 - 2 [facility] Basophils # Bld Auto 0.0 K/mcL 03/31/2025 0 - 0.2 [facility] RDW RBC Auto 17.4 % 03/31/2025 12.1 - 17.7 [facility] PMV Bld Auto 8.2 FL 03/31/2025 7.4 - 11.4 [facility] Hgb Bld-mCnc 11.9 g/dL Below low normal 03/31/2025 13.5 - 18 [facility] RBC Auto 77.1 FL Below low normal 03/31/2025 78 - 100 [facility] Lymphocytes NFr Bld Auto 23.8 % 03/31/2025 20 - 48 [facility] Lymphocytes # Bld Auto 2.8 K/mcL 03/31/2025 1 - 3.2 [facility] Neutrophils # Bld Auto 8.2 K/mcL Above high normal 03/31/2025 1.8 - 7.8 [facility] Neutrophils NFr Bld Auto 69.5 % 03/31/2025 44 - 74 [facility] WBC # Bld Auto 11.8 K/mcL Above high normal 03/31/2025 4 - 1 0.5 [facility] Monocytes # Bld Auto 0.7 K/mcL 03/31/2025 0 - 0.8 [facility] MCH RBC Qn Auto 23.8 pcg Below low normal 03/31/2025 25 - 3 3 [facility] RBC # Bld Auto 5.01 M/mcL 03/31/2025 4.7 - 6 [facility] Glucose Bld-mCnc 239.0 mg/dL Above high normal 03/31/2025 70 - 199 [facility] Glucose Bld-mCnc 481.0 mg/dL Above high normal 03/30/2025 70 - 199 [facility] Glucose Bld-mCnc 271.0 mg/dL Above high normal 03/30/2025 70 - 199 [facility] Glucose Bld-mCnc 95.0 mg/dL 03/30/2025 70 - 199 C [facility] Calcium SerPl-mCnc 9.0 mg/dL 03/30/2025 8.4 - 10.2 [facility] eGFRcr SerPlBld CKD-EPI 2020 111.0 mL/min/1.73m2 03/30/2025 - [facility] Anion Gap SerPl Calc-sCnc 3.0 Below low normal 03/30/2025 5 - 14 [facility] Potassium SerPl-sCnc 4.2 mmol/L 03/30/2025 3.5 - 5.1 [facility] Sodium SerPl-sCnc 138.0 mmol/L 03/30/2025 135 - 14 5 [facility] Creat SerPl-mCnc 0.6 mg/dL Below low normal 03/30/2025 0.7 - 1.3 [facility] Chloride SerPl-sCnc 100.0 mmol/L 03/30/2025 98 - 107 [facility] BUN/Creat SerPl 31.7 Above high normal 03/30/2025 12 - 20 [facility] Glucose SerPl-mCnc 141.0 mg/dL 03/30/2025 70 - 199 [facility] CO2 SerPl-sCnc 35.0 mmol/L Above high normal 03/30/2025 24 - 32 [facility] BUN SerPl-mCnc 19.0 mg/dL 03/30/2025 9 - 20 [facility] Phosphate SerPl-mCnc 3.4 mg/dL 03/30/2025 2.5 - 4.5 [facility] Magnesium SerPl-mCnc 1.8 mg/dL 03/30/2025 1.7 - 2.8 [facility] Monocytes NFr Bld Auto 6.2 % 03/30/2025 2 - 12 [facility] Neutrophils # Bld Auto 9.4 K/mcL Above high normal 03/30/2025 1.8 - 7.8 [facility] RBC Auto 76.6 FL Below low normal 03/30/2025 78 - 100 [facility] Basophils # Bld Auto 0.0 K/mcL 03/30/2025 0 - 0.2 [facility] Monocytes # Bld Auto 0.8 K/mcL 03/30/2025 0 - 0.8 [facility] Lymphocytes # Bld Auto 2.5 K/mcL 03/30/2025 1 - 3.2 [facility] Platelet # Bld Auto 288.0 K/mcL 03/30/2025 150 - 450 [facility] RBC # Bld Auto 5.23 M/mcL 03/30/2025 4.7 - 6 [facility] RDW RBC Auto 17.9 % Above high normal 03/30/2025 12.1 - 1 7.7 [facility] Eosinophil # Bld Auto 0.1 K/mcL 03/30/2025 0 - 0.5 [facility] MCHC RBC Auto-EntMCnc 30.2 g/dL Below low normal 03/30/2025 32 - 36 [facility] Hct VFr Bld Auto 40.0 % 03/30/2025 40 - 54 [facility] Neutrophils NFr Bld Auto 73.7 % 03/30/2025 44 - 74 [facility] PMV Bld Auto 7.8 FL 03/30/2025 7.4 - 11.4 [facility] Hgb Bld-mCnc 12.1 g/dL Below low normal 03/30/2025 13.5 - 18 [facility] MCH RBC Qn Auto 23.1 pcg Below low normal 03/30/2025 25 - 3 3 [facility] WBC # Bld Auto 12.8 K/mcL Above high normal 03/30/2025 4 - 1 0.5 [facility] Eosinophil NFr Bld Auto 0.6 % 03/30/2025 0 - 6 [facility] Lymphocytes NFr Bld Auto 19.4 % Below low normal 03/30/2025 20 - 48 [facility] Basophils NFr Bld Auto 0.1 % 03/30/2025 0 - 2 [facility] Glucose Bld-mCnc 324.0 mg/dL Above high normal 03/30/2025 70 - 199 [facility] Glucose Bld-mCnc 291.0 mg/dL Above high normal 03/29/2025 70 - 199 [facility] Glucose Bld-mCnc 199.0 mg/dL 03/29/2025 70 - 199 [facility] Glucose Bld-mCnc 110.0 mg/dL 03/29/2025 70 - 199 [facility] CO2 SerPl-sCnc 36.0 mmol/L Above high normal 03/29/2025 24 - 32 [facility] eGFRcr SerPlBld CKD-EPI 2020 111.0 mL/min/1.73m2 03/29/2025 - [facility] BUN/Creat SerPl 23.3 Above high normal 03/29/2025 12 - 20 [facility] Glucose SerPl-mCnc 105.0 mg/dL Above high normal 03/29/2025 70 - 99 [facility] Calcium SerPl-mCnc 8.7 mg/dL 03/29/2025 8.4 - 10.2 [facility] Anion Gap SerPl Calc-sCnc 3.0 Below low normal 03/29/2025 5 - 14 [facility] Chloride SerPl-sCnc 100.0 mmol/L 03/29/2025 98 - 107 [facility] Sodium SerPl-sCnc 139.0 mmol/L 03/29/2025 135 - 14 5 [facility] BUN SerPl-mCnc 14.0 mg/dL 03/29/2025 9 - 20 [facility] Potassium SerPl-sCnc 4.0 mmol/L 03/29/2025 3.5 - 5.1 [facility] Creat SerPl-mCnc 0.6 mg/dL Below low normal 03/29/2025 0.7 - 1.3 [facility] Magnesium SerPl-mCnc 1.7 mg/dL 03/29/2025 1.7 - 2.8 [facility] Phosphate SerPl-mCnc 3.0 mg/dL 03/29/2025 2.5 - 4.5 [facility] RBC Auto 77.0 FL Below low normal 03/29/2025 78 - 100 [facility] Lymphocytes NFr Bld Auto 22.5 % 03/29/2025 20 - 48 [facility] Hgb Bld-mCnc 11.8 g/dL Below low normal 03/29/2025 13.5 - 18 [facility] Hct VFr Bld Auto 39.2 % Below low normal 03/29/2025 40 - 54 [facility] MCHC RBC Auto-EntMCnc 30.1 g/dL Below low normal 03/29/2025 32 - 36 [facility] PMV Bld Auto 8.0 FL 03/29/2025 7.4 - 11.4 [facility] Neutrophils # Bld Auto 7.8 K/mcL 03/29/2025 1.8 - 7.8 [facility] Neutrophils NFr Bld Auto 70.1 % 03/29/2025 44 - 74 [facility] RBC # Bld Auto 5.09 M/mcL 03/29/2025 4.7 - 6 [facility] Monocytes NFr Bld Auto 6.1 % 03/29/2025 2 - 12 [facility] Basophils # Bld Auto 0.0 K/mcL 03/29/2025 0 - 0.2 [facility] WBC # Bld Auto 11.1 K/mcL Above high normal 03/29/2025 4 - 1 0.5 [facility] Platelet # Bld Auto 287.0 K/mcL 03/29/2025 150 - 450 [facility] MCH RBC Qn Auto 23.2 pcg Below low normal 03/29/2025 25 - 3 3 [facility] Monocytes # Bld Auto 0.7 K/mcL 03/29/2025 0 - 0.8 [facility] Basophils NFr Bld Auto 0.3 % 03/29/2025 0 - 2 [facility] Lymphocytes # Bld Auto 2.5 K/mcL 03/29/2025 1 - 3.2 [facility] RDW RBC Auto 17.3 % 03/29/2025 12.1 - 17.7 CT_T [facility] Eosinophil NFr Bld Auto 1.0 % 03/29/2025 0 - 6 [facility] Eosinophil # Bld Auto 0.1 K/mcL 03/29/2025 0 - 0.5 [facility] Glucose Bld-mCnc 283.0 mg/dL Above high normal 03/29/2025 70 - 199 [facility] Glucose Bld-mCnc 214.0 mg/dL Above high normal 03/28/2025 70 - 199 [facility] Glucose Bld-mCnc 206.0 mg/dL Above high normal 03/28/2025 70 - 199 [facility] Glucose Bld-mCnc 75.0 mg/dL 03/28/2025 70 - 199 C T_[facility] Monocytes # Bld Auto 0.7 K/mcL 03/28/2025 0 - 0.8 [facility] Eosinophil # Bld Auto 0.1 K/mcL 03/28/2025 0 - 0.5 [facility] WBC # Bld Auto 10.1 K/mcL 03/28/2025 4 - 10.5 CT_ [facility] RBC Auto 77.0 FL Below low normal 03/28/2025 78 - 100 CT _[facility] Lymphocytes # Bld Auto 2.6 K/mcL 03/28/2025 1 - 3.2 [facility] Hct VFr Bld Auto 39.1 % Below low normal 03/28/2025 40 - 54 [facility] MCHC RBC Auto-EntMCnc 30.3 g/dL Below low normal 03/28/2025 32 - 36 [facility] Neutrophils # Bld Auto 6.7 K/mcL 03/28/2025 1.8 - 7.8 [facility] Hgb Bld-mCnc 11.9 g/dL Below low normal 03/28/2025 13.5 - 18 [facility] Basophils # Bld Auto 0.0 K/mcL 03/28/2025 0 - 0.2 [facility] Monocytes NFr Bld Auto 7.0 % 03/28/2025 2 - 12 [facility] MCH RBC Qn Auto 23.4 pcg Below low normal 03/28/2025 25 - 3 3 [facility] Eosinophil NFr Bld Auto 1.4 % 03/28/2025 0 - 6 [facility] RBC # Bld Auto 5.08 M/mcL 03/28/2025 4.7 - 6 CT_ [facility] Neutrophils NFr Bld Auto 66.0 % 03/28/2025 44 - 74 [facility] Basophils NFr Bld Auto 0.2 % 03/28/2025 0 - 2 [facility] Lymphocytes NFr Bld Auto 25.4 % 03/28/2025 20 - 48 [facility] Platelet # Bld Auto 274.0 K/mcL 03/28/2025 150 - 450 [facility] RDW RBC Auto 17.5 % 03/28/2025 12.1 - 17.7 CT_T [facility] PMV Bld Auto 7.8 FL 03/28/2025 7.4 - 11.4 [facility] eGFRcr SerPlBld CKD-EPI 2020 111.0 mL/min/1.73m2 03/28/2025 - [facility] Sodium SerPl-sCnc 140.0 mmol/L 03/28/2025 135 - 14 5 [facility] Chloride SerPl-sCnc 102.0 mmol/L 03/28/2025 98 - 107 [facility] Calcium SerPl-mCnc 8.5 mg/dL 03/28/2025 8.4 - 10.2 [facility] CO2 SerPl-sCnc 37.0 mmol/L Above high normal 03/28/2025 24 - 32 [facility] Glucose SerPl-mCnc 84.0 mg/dL 03/28/2025 70 - 199 [facility] Creat SerPl-mCnc 0.6 mg/dL Below low normal 03/28/2025 0.7 - 1.3 [facility] BUN/Creat SerPl 20.0 03/28/2025 12 - 20 CT_ [facility] BUN SerPl-mCnc 12.0 mg/dL 03/28/2025 9 - 20 CT_ [facility] Anion Gap SerPl Calc-sCnc 1.0 Below low normal 03/28/2025 5 - 14 [facility] Potassium SerPl-sCnc 4.0 mmol/L 03/28/2025 3.5 - 5.1 [facility] Phosphate SerPl-mCnc 2.5 mg/dL 03/28/2025 2.5 - 4.5 [facility] Magnesium SerPl-mCnc 1.7 mg/dL 03/28/2025 1.7 - 2.8 [facility] Glucose Bld-mCnc 213.0 mg/dL Above high normal 03/28/2025 70 - 199 [facility] Glucose Bld-mCnc 262.0 mg/dL Above high normal 03/27/2025 70 - 199 [facility] Glucose Bld-mCnc 196.0 mg/dL 03/27/2025 70 - 199 [facility] Glucose Bld-mCnc 132.0 mg/dL 03/27/2025 70 - 199 [facility] Magnesium SerPl-mCnc 1.5 mg/dL Below low normal 03/27/2025 1.7 - 2.8 [facility] CO2 SerPl-sCnc 37.0 mmol/L Above high normal 03/27/2025 24 - 32 [facility] Anion Gap SerPl Calc-sCnc 3.0 Below low normal 03/27/2025 5 - 14 [facility] Chloride SerPl-sCnc 101.0 mmol/L 03/27/2025 98 - 107 [facility] Calcium SerPl-mCnc 8.4 mg/dL 03/27/2025 8.4 - 10.2 [facility] Creat SerPl-mCnc 0.4 mg/dL Below low normal 03/27/2025 0.7 - 1.3 [facility] Sodium SerPl-sCnc 141.0 mmol/L 03/27/2025 135 - 14 5 [facility] Glucose SerPl-mCnc 126.0 mg/dL Above high normal 03/27/2025 70 - 99 [facility] BUN/Creat SerPl 32.5 Above high normal 03/27/2025 12 - 20 [facility] BUN SerPl-mCnc 13.0 mg/dL 03/27/2025 9 - 20 CT_ [facility] Potassium SerPl-sCnc 4.0 mmol/L 03/27/2025 3.5 - 5.1 [facility] eGFRcr SerPlBld CKD-EPI 2020 126.0 mL/min/1.73m2 03/27/2025 - [facility] Phosphate SerPl-mCnc 3.0 mg/dL 03/27/2025 2.5 - 4.5 [facility] Monocytes NFr Bld Auto 6.9 % 03/27/2025 2 - 12 [facility] Neutrophils # Bld Auto 7.6 K/mcL 03/27/2025 1.8 - 7.8 [facility] Lymphocytes # Bld Auto 2.1 K/mcL 03/27/2025 1 - 3.2 [facility] Lymphocytes NFr Bld Auto 20.0 % 03/27/2025 20 - 48 [facility] RBC # Bld Auto 4.92 M/mcL 03/27/2025 4.7 - 6 CT_ [facility] MCHC RBC Auto-EntMCnc 30.3 g/dL Below low normal 03/27/2025 32 - 36 [facility] Neutrophils NFr Bld Auto 71.7 % 03/27/2025 44 - 74 [facility] Platelet # Bld Auto 263.0 K/mcL 03/27/2025 150 - 450 [facility] Monocytes # Bld Auto 0.7 K/mcL 03/27/2025 0 - 0.8 [facility] MCH RBC Qn Auto 23.3 pcg Below low normal 03/27/2025 25 - 3 3 [facility] RDW RBC Auto 17.9 % Above high normal 03/27/2025 12.1 - 1 7.7 [facility] Basophils # Bld Auto 0.0 K/mcL 03/27/2025 0 - 0.2 [facility] Basophils NFr Bld Auto 0.3 % 03/27/2025 0 - 2 [facility] Eosinophil NFr Bld Auto 1.1 % 03/27/2025 0 - 6 [facility] RBC Auto 76.8 FL Below low normal 03/27/2025 78 - 100 CT _[facility] Hgb Bld-mCnc 11.4 g/dL Below low normal 03/27/2025 13.5 - 18 [facility] Hct VFr Bld Auto 37.8 % Below low normal 03/27/2025 40 - 54 [facility] WBC # Bld Auto 10.6 K/mcL Above high normal 03/27/2025 4 - 1 0.5 [facility] PMV Bld Auto 7.6 FL 03/27/2025 7.4 - 11.4 [facility] Eosinophil # Bld Auto 0.1 K/mcL 03/27/2025 0 - 0.5 [facility] Glucose Bld-mCnc 164.0 mg/dL 03/27/2025 70 - 199 [facility] Glucose Bld-mCnc 256.0 mg/dL Above high normal 03/26/2025 70 - 199 [facility] Glucose Bld-mCnc 133.0 mg/dL 03/26/2025 70 - 199 [facility] Glucose Bld-mCnc 75.0 mg/dL 03/26/2025 70 - 199 C T_[facility] Phosphate SerPl-mCnc 3.3 mg/dL 03/26/2025 2.5 - 4.5 [facility] Calcium SerPl-mCnc 9.6 mg/dL 03/26/2025 8.4 - 10.2 [facility] Creat SerPl-mCnc 0.5 mg/dL Below low normal 03/26/2025 0.7 - 1.3 [facility] CO2 SerPl-sCnc 39.0 mmol/L Above high normal 03/26/2025 24 - 32 [facility] BUN/Creat SerPl 30.0 Above high normal 03/26/2025 12 - 20 [facility] Chloride SerPl-sCnc 104.0 mmol/L 03/26/2025 98 - 107 [facility] Potassium SerPl-sCnc 3.7 mmol/L 03/26/2025 3.5 - 5.1 [facility] eGFRcr SerPlBld CKD-EPI 2020 117.0 mL/min/1.73m2 03/26/2025 - [facility] BUN SerPl-mCnc 15.0 mg/dL 03/26/2025 9 - 20 CT_ [facility] Sodium SerPl-sCnc 147.0 mmol/L Above high normal 03/26/2025 135 - 145 [facility] Anion Gap SerPl Calc-sCnc 4.0 Below low normal 03/26/2025 5 - 14 [facility] Glucose SerPl-mCnc 72.0 mg/dL 03/26/2025 70 - 199 [facility] Magnesium SerPl-mCnc 1.7 mg/dL 03/26/2025 1.7 - 2.8 [facility] Basophils # Bld Auto 0.0 K/mcL 03/26/2025 0 - 0.2 [facility] Eosinophil NFr Bld Auto 0.4 % 03/26/2025 0 - 6 [facility] PMV Bld Auto 7.7 FL 03/26/2025 7.4 - 11.4 [facility] Lymphocytes # Bld Auto 1.8 K/mcL 03/26/2025 1 - 3.2 [facility] MCH RBC Qn Auto 23.3 pcg Below low normal 03/26/2025 25 - 3 3 [facility] Platelet # Bld Auto 263.0 K/mcL 03/26/2025 150 - 450 [facility] Eosinophil # Bld Auto 0.1 K/mcL 03/26/2025 0 - 0.5 [facility] WBC # Bld Auto 11.8 K/mcL Above high normal 03/26/2025 4 - 1 0.5 [facility] Basophils NFr Bld Auto 0.2 % 03/26/2025 0 - 2 [facility] RBC Auto 77.2 FL Below low normal 03/26/2025 78 - 100 [facility] Lymphocytes NFr Bld Auto 15.5 % Below low normal 03/26/2025 20 - 48 [facility] Monocytes # Bld Auto 0.7 K/mcL 03/26/2025 0 - 0.8 [facility] Neutrophils NFr Bld Auto 77.9 % Above high normal 03/26/2025 44 - 74 [facility] RDW RBC Auto 17.6 % 03/26/2025 12.1 - 17.7 [facility] MCHC RBC Auto-EntMCnc 30.2 g/dL Below low normal 03/26/2025 32 - 36 [facility] Monocytes NFr Bld Auto 6.0 % 03/26/2025 2 - 12 [facility] Neutrophils # Bld Auto 9.2 K/mcL Above high normal 03/26/2025 1.8 - 7.8 [facility] RBC # Bld Auto 5.2 M/mcL 03/26/2025 4.7 - 6 [facility] Hgb Bld-mCnc 12.1 g/dL Below low normal 03/26/2025 13.5 - 18 [facility] Hct VFr Bld Auto 40.1 % 03/26/2025 40 - 54 [facility] Glucose Bld-mCnc 63.0 mg/dL Below low normal 03/26/2025 70 - 199 [facility] Glucose Bld-mCnc 98.0 mg/dL 03/26/2025 70 - 199 C [facility] Glucose Bld-mCnc 122.0 mg/dL 03/26/2025 70 - 199 [facility] Glucose Bld-mCnc 291.0 mg/dL Above high normal 03/25/2025 70 - 199 [facility] Glucose Bld-mCnc 299.0 mg/dL Above high normal 03/25/2025 70 - 199 [facility] BUN SerPl-mCnc 14.0 mg/dL 03/25/2025 9 - 20 [facility] Potassium SerPl-sCnc 4.7 mmol/L 03/25/2025 3.5 - 5.1 [facility] Chloride SerPl-sCnc 101.0 mmol/L 03/25/2025 98 - 107 [facility] Creat SerPl-mCnc 0.4 mg/dL Below low normal 03/25/2025 0.7 - 1.3 [facility] eGFRcr SerPlBld CKD-EPI 2020 126.0 mL/min/1.73m2 03/25/2025 - [facility] Anion Gap SerPl Calc-sCnc 2.0 Below low normal 03/25/2025 5 - 14 [facility] CO2 SerPl-sCnc 38.0 mmol/L Above high normal 03/25/2025 24 - 32 [facility] Sodium SerPl-sCnc 141.0 mmol/L 03/25/2025 135 - 14 5 [facility] Calcium SerPl-mCnc 9.4 mg/dL 03/25/2025 8.4 - 10.2 [facility] BUN/Creat SerPl 35.0 Above high normal 03/25/2025 12 - 20 [facility] Glucose SerPl-mCnc 242.0 mg/dL Above high normal 03/25/2025 70 - 199 [facility] Glucose Bld-mCnc 274.0 mg/dL Above high normal 03/25/2025 70 - 199 [facility] Magnesium SerPl-mCnc 1.7 mg/dL 03/25/2025 1.7 - 2.8 [facility] Potassium SerPl-sCnc 4.8 mmol/L 03/25/2025 3.5 - 5.1 [facility] Sodium SerPl-sCnc 142.0 mmol/L 03/25/2025 135 - 14 5 [facility] Chloride SerPl-sCnc 101.0 mmol/L 03/25/2025 98 - 107 [facility] Creat SerPl-mCnc 0.5 mg/dL Below low normal 03/25/2025 0.7 - 1.3 [facility] Glucose SerPl-mCnc 282.0 mg/dL Above high normal 03/25/2025 70 - 199 [facility] eGFRcr SerPlBld CKD-EPI 2020 117.0 mL/min/1.73m2 03/25/2025 - [facility] BUN SerPl-mCnc 13.0 mg/dL 03/25/2025 9 - 20 [facility] Anion Gap SerPl Calc-sCnc 6.0 03/25/2025 5 - 14 [facility] BUN/Creat SerPl 26.0 Above high normal 03/25/2025 12 - 20 [facility] CO2 SerPl-sCnc 35.0 mmol/L Above high normal 03/25/2025 24 - 32 [facility] Calcium SerPl-mCnc 9.7 mg/dL 03/25/2025 8.4 - 10.2 [facility] Phosphate SerPl-mCnc 2.9 mg/dL 03/25/2025 2.5 - 4.5 [facility] Monocytes NFr Bld Auto 4.6 % 03/25/2025 2 - 12 [facility] Eosinophil NFr Bld Auto 0.0 % 03/25/2025 0 - 6 [facility] Neutrophils # Bld Auto 8.3 K/mcL Above high normal 03/25/2025 1.8 - 7.8 [facility] MCH RBC Qn Auto 23.7 pcg Below low normal 03/25/2025 25 - 3 3 [facility] Hct VFr Bld Auto 38.3 % Below low normal 03/25/2025 40 - 54 [facility] PMV Bld Auto 7.9 FL 03/25/2025 7.4 - 11.4 [facility] RBC # Bld Auto 4.94 M/mcL 03/25/2025 4.7 - 6 [facility] Eosinophil # Bld Auto 0.0 K/mcL 03/25/2025 0 - 0.5 [facility] Lymphocytes # Bld Auto 0.5 K/mcL Below low normal 03/25/2025 1 - 3.2 [facility] Lymphocytes NFr Bld Auto 5.3 % Below low normal 03/25/2025 20 - 48 [facility] Monocytes # Bld Auto 0.4 K/mcL 03/25/2025 0 - 0.8 [facility] Neutrophils NFr Bld Auto 89.7 % Above high normal 03/25/2025 44 - 74 [facility] Hgb Bld-mCnc 11.7 g/dL Below low normal 03/25/2025 13.5 - 18 [facility] RDW RBC Auto 17.9 % Above high normal 03/25/2025 12.1 - 1 7.7 [facility] MCHC RBC Auto-EntMCnc 30.5 g/dL Below low normal 03/25/2025 32 - 36 [facility] Basophils # Bld Auto 0.0 K/mcL 03/25/2025 0 - 0.2 [facility] Basophils NFr Bld Auto 0.4 % 03/25/2025 0 - 2 [facility] Platelet # Bld Auto 258.0 K/mcL 03/25/2025 150 - 450 [facility] WBC # Bld Auto 9.2 K/mcL 03/25/2025 4 - 10.5 [facility] RBC Auto 77.6 FL Below low normal 03/25/2025 78 - 100 [facility] Glucose Bld-mCnc 203.0 mg/dL Above high normal 03/25/2025 70 - 199 [facility] Glucose Bld-mCnc 195.0 mg/dL 03/24/2025 70 - 199 [facility] SaO2 % BldA 95.3 % 03/24/2025 95 - 98 [facility] HCO3 BldA-sCnc 31.5 mmol/L Above high normal 03/24/2025 22 - 26 [facility] pH BldA 7.39 pH 03/24/2025 7.35 - 7.45 [facility] pO2 BldA 67.0 mmHg Below low normal 03/24/2025 80 - 105 [facility] pCO2 BldA 59.0 mmHg Above high normal 03/24/2025 35 - 45 C [facility] Base excess BldA Calc-sCnc 8.6 mmol/L Above high normal 03/24/2025 0 - 2 [facility] Glucose Bld-mCnc 124.0 mg/dL 03/24/2025 70 - 199 [facility] Magnesium SerPl-mCnc 1.9 mg/dL 03/24/2025 1.7 - 2.8 [facility] BUN/Creat SerPl 26.0 Above high normal 03/24/2025 12 - 20 [facility] eGFRcr SerPlBld CKD-EPI 2020 117.0 mL/min/1.73m2 03/24/2025 - [facility] Calcium SerPl-mCnc 8.6 mg/dL 03/24/2025 8.4 - 10.2 [facility] Potassium SerPl-sCnc 4.8 mmol/L 03/24/2025 3.5 - 5.1 [facility] Creat SerPl-mCnc 0.5 mg/dL Below low normal 03/24/2025 0.7 - 1.3 [facility] Sodium SerPl-sCnc 141.0 mmol/L 03/24/2025 135 - 14 5 [facility] Chloride SerPl-sCnc 104.0 mmol/L 03/24/2025 98 - 107 [facility] CO2 SerPl-sCnc 33.0 mmol/L Above high normal 03/24/2025 24 - 32 [facility] Glucose SerPl-mCnc 190.0 mg/dL Above high normal 03/24/2025 70 - 99 [facility] Anion Gap SerPl Calc-sCnc 4.0 Below low normal 03/24/2025 5 - 14 [facility] BUN SerPl-mCnc 13.0 mg/dL 03/24/2025 9 - 20 [facility] Neutrophils # Bld Auto 10.1 K/mcL Above high normal 03/24/2025 1.8 - 7.8 [facility] Basophils NFr Bld Auto 0.1 % 03/24/2025 0 - 2 [facility] Lymphocytes # Bld Auto 0.6 K/mcL Below low normal 03/24/2025 1 - 3.2 [facility] Hct VFr Bld Auto 34.3 % Below low normal 03/24/2025 40 - 54 [facility] RDW RBC Auto 18.0 % Above high normal 03/24/2025 12.1 - 1 7.7 [facility] Monocytes # Bld Auto 0.4 K/mcL 03/24/2025 0 - 0.8 [facility] Platelet # Bld Auto 252.0 K/mcL 03/24/2025 150 - 450 [facility] Neutrophils NFr Bld Auto 91.2 % Above high normal 03/24/2025 44 - 74 [facility] MCH RBC Qn Auto 23.1 pcg Below low normal 03/24/2025 25 - 3 3 [facility] WBC # Bld Auto 11.1 K/mcL Above high normal 03/24/2025 4 - 1 0.5 [facility] Monocytes NFr Bld Auto 3.5 % 03/24/2025 2 - 12 [facility] RBC # Bld Auto 4.41 M/mcL Below low normal 03/24/2025 4.7 - 6 [facility] MCHC RBC Auto-EntMCnc 29.7 g/dL Below low normal 03/24/2025 32 - 36 [facility] Eosinophil NFr Bld Auto 0.0 % 03/24/2025 0 - 6 [facility] RBC Auto 77.7 FL Below low normal 03/24/2025 78 - 100 [facility] PMV Bld Auto 7.6 FL 03/24/2025 7.4 - 11.4 [facility] Hgb Bld-mCnc 10.2 g/dL Below low normal 03/24/2025 13.5 - 18 [facility] Lymphocytes NFr Bld Auto 5.2 % Below low normal 03/24/2025 20 - 48 [facility] Eosinophil # Bld Auto 0.0 K/mcL 03/24/2025 0 - 0.5 [facility] Basophils # Bld Auto 0.0 K/mcL 03/24/2025 0 - 0.2 [facility] Glucose Bld-mCnc 171.0 mg/dL 03/24/2025 70 - 199 [facility] Glucose Bld-mCnc 115.0 mg/dL 03/24/2025 70 - 199 [facility] Glucose Bld-mCnc 152.0 mg/dL 03/24/2025 70 - 199 [facility] Glucose Bld-mCnc 176.0 mg/dL 03/23/2025 70 - 199 [facility] Base excess BldA Calc-sCnc 4.2 mmol/L Above high normal 03/23/2025 0 - 2 [facility] pCO2 BldA 50.0 mmHg Above high normal 03/23/2025 35 - 45 C [facility] SaO2 % BldA 99.6 % Above high normal 03/23/2025 95 - 98 [facility] pO2 BldA 85.0 mmHg 03/23/2025 80 - 105 [facility] HCO3 BldA-sCnc 28.2 mmol/L Above high normal 03/23/2025 22 - 26 [facility] Chantelle index Bld+IhG-Rto 40.0 03/23/2025 [facility] pH BldA 7.39 pH 03/23/2025 7.35 - 7.45 [facility] Glucose Bld-mCnc 223.0 mg/dL Above high normal 03/23/2025 70 - 199 [facility] L pneumo Ag Ur Ql IA Negative 03/25/2025 - [facility] Chantelle index Bld+IhG-Rto 50.0 03/23/2025 [facility] SaO2 % BldA 100.0 % Above high normal 03/23/2025 95 - 98 [facility] Base excess BldA Calc-sCnc 3.0 mmol/L Above high normal 03/23/2025 0 - 2 [facility] pO2 BldA 121.0 mmHg Above high normal 03/23/2025 80 - 105 [facility] HCO3 BldA-sCnc 27.3 mmol/L Above high normal 03/23/2025 22 - 26 [facility] pH BldA 7.38 pH 03/23/2025 7.35 - 7.45 [facility] Ramy Test Pass 03/23/2025 - [facility] pCO2 BldA 49.0 mmHg Above high normal 03/23/2025 35 - 45 C [facility] Glucose Bld-mCnc 194.0 mg/dL 03/23/2025 70 - 199 [facility] Phosphate SerPl-mCnc 3.6 mg/dL 03/23/2025 2.5 - 4.5 [facility] CO2 SerPl-sCnc 28.0 mmol/L 03/23/2025 24 - 32 [facility] Sodium SerPl-sCnc 139.0 mmol/L 03/23/2025 135 - 14 5 [facility] Chloride SerPl-sCnc 104.0 mmol/L 03/23/2025 98 - 107 [facility] Calcium SerPl-mCnc 8.6 mg/dL 03/23/2025 8.4 - 10.2 [facility] eGFRcr SerPlBld CKD-EPI 2020 111.0 mL/min/1.73m2 03/23/2025 - [facility] Potassium SerPl-sCnc 4.5 mmol/L 03/23/2025 3.5 - 5.1 [facility] BUN SerPl-mCnc 17.0 mg/dL 03/23/2025 9 - 20 [facility] Creat SerPl-mCnc 0.6 mg/dL Below low normal 03/23/2025 0.7 - 1.3 [facility] BUN/Creat SerPl 28.3 Above high normal 03/23/2025 12 - 20 [facility] Anion Gap SerPl Calc-sCnc 7.0 03/23/2025 5 - 14 [facility] Glucose SerPl-mCnc 189.0 mg/dL 03/23/2025 70 - 199 [facility] Magnesium SerPl-mCnc 1.8 mg/dL 03/23/2025 1.7 - 2.8 [facility] Neutrophils # Bld Auto 13.3 K/mcL Above high normal 03/23/2025 1.8 - 7.8 [facility] MCH RBC Qn Auto 22.7 pcg Below low normal 03/23/2025 25 - 3 3 [facility] Platelet # Bld Auto 280.0 K/mcL 03/23/2025 150 - 450 [facility] PMV Bld Auto 8.0 FL 03/23/2025 7.4 - 11.4 [facility] Neutrophils NFr Bld Auto 94.2 % Above high normal 03/23/2025 44 - 74 [facility] Basophils # Bld Auto 0.0 K/mcL 03/23/2025 0 - 0.2 [facility] MCHC RBC Auto-EntMCnc 29.5 g/dL Below low normal 03/23/2025 32 - 36 [facility] RBC # Bld Auto 4.69 M/mcL Below low normal 03/23/2025 4.7 - 6 [facility] Basophils NFr Bld Auto 0.1 % 03/23/2025 0 - 2 [facility] Hgb Bld-mCnc 10.7 g/dL Below low normal 03/23/2025 13.5 - 18 [facility] Lymphocytes NFr Bld Auto 2.7 % Below low normal 03/23/2025 20 - 48 [facility] Eosinophil NFr Bld Auto 0.0 % 03/23/2025 0 - 6 [facility] RBC Auto 77.0 FL Below low normal 03/23/2025 78 - 100 [facility] RDW RBC Auto 17.8 % Above high normal 03/23/2025 12.1 - 1 7.7 [facility] Lymphocytes # Bld Auto 0.4 K/mcL Below low normal 03/23/2025 1 - 3.2 [facility] WBC # Bld Auto 14.1 K/mcL Above high normal 03/23/2025 4 - 1 0.5 [facility] Eosinophil # Bld Auto 0.0 K/mcL 03/23/2025 0 - 0.5 [facility] Hct VFr Bld Auto 36.1 % Below low normal 03/23/2025 40 - 54 [facility] Monocytes NFr Bld Auto 3.0 % 03/23/2025 2 - 12 [facility] Monocytes # Bld Auto 0.4 K/mcL 03/23/2025 0 - 0.8 [facility] Glucose Bld-mCnc 148.0 mg/dL 03/23/2025 70 - 199 [facility] Johnson SerPl-sCnc 1.3 mEq/L Above high normal 03/23/2025 0. 6 - 1.2 [facility] Glucose Bld-mCnc 119.0 mg/dL 03/23/2025 70 - 199 [facility] Osmolality Ur 282.0 mOsm/kg 03/22/2025 50 - 1200 [facility] Sodium Ur-sCnc 26.0 mmol/L Below low normal 03/22/2025 50 - 191 [facility] Creat Ur-mCnc 23.6 mg/dL 03/22/2025 [facility] Est. average glucose Bld gHb Est-mCnc 134.0 mg/dL 03/23/2025 [facility] HbA1c MFr Bld 6.3 % Above high normal 03/23/2025 - 5.7 [facility] TSH SerPl DL<=0.005 mIU/L-aCnc 0.9 mcIU/mL 03/22/2025 0.45 - 5.33 [facility] Johnson SerPl-sCnc 1.3 mEq/L Above high normal 03/22/2025 0. 6 - 1.2 [facility] Troponin I SerPl HS-mCnc 91.0 ng/L Above high normal 03/22/2025 0 - 20 [facility] BUN/Creat SerPl 25.7 Above high normal 03/22/2025 12 - 20 [facility] Creat SerPl-mCnc 0.7 mg/dL 03/22/2025 0.7 - 1.3 CT [facility] Glucose SerPl-mCnc 101.0 mg/dL 03/22/2025 70 - 199 [facility] Anion Gap SerPl Calc-sCnc 7.0 03/22/2025 5 - 14 [facility] Potassium SerPl-sCnc 4.5 mmol/L 03/22/2025 3.5 - 5.1 [facility] Sodium SerPl-sCnc 137.0 mmol/L 03/22/2025 135 - 14 5 [facility] Calcium SerPl-mCnc 8.6 mg/dL 03/22/2025 8.4 - 10.2 [facility] Chloride SerPl-sCnc 102.0 mmol/L 03/22/2025 98 - 107 [facility] eGFRcr SerPlBld CKD-EPI 2020 106.0 mL/min/1.73m2 03/22/2025 - [facility] BUN SerPl-mCnc 18.0 mg/dL 03/22/2025 9 - 20 [facility] CO2 SerPl-sCnc 28.0 mmol/L 03/22/2025 24 - 32 [facility] Trigl SerPl-mCnc 130.0 mg/dL 03/22/2025 - 150 [facility] Osmolality SerPl 299.0 mOsm/kg Above high normal 03/22/2025 275 - 295 [facility] RBC Auto 77.0 FL Below low normal 03/22/2025 78 - 100 [facility] PMV Bld Auto 7.8 FL 03/22/2025 7.4 - 11.4 [facility] RBC # Bld Auto 5.02 M/mcL 03/22/2025 4.7 - 6 [facility] Platelet # Bld Auto 273.0 K/mcL 03/22/2025 150 - 450 [facility] RDW RBC Auto 18.4 % Above high normal 03/22/2025 12.1 - 1 7.7 [facility] MCH RBC Qn Auto 23.6 pcg Below low normal 03/22/2025 25 - 3 3 [facility] Hct VFr Bld Auto 38.6 % Below low normal 03/22/2025 40 - 54 [facility] Hgb Bld-mCnc 11.9 g/dL Below low normal 03/22/2025 13.5 - 18 [facility] WBC # Bld Auto 11.4 K/mcL Above high normal 03/22/2025 4 - 1 0.5 [facility] MCHC RBC Auto-EntMCnc 30.7 g/dL Below low normal 03/22/2025 32 - 36 [facility] Lactate BldV-sCnc 1.6 mmol/L 03/22/2025 0.5 - 2.2 [facility] Glucose Bld-mCnc 99.0 mg/dL 03/22/2025 70 - 199 [facility] MRB mecC Islt/Spm Ql Not Detected 03/22/2025 - [facility] Sp Gr Ur 1.021 03/22/2025 1.005 - 1.03 [facility] Ketones Ur-mCnc Trace Abnormal 03/22/2025 - [facility] Prot Ur Strip-mCnc Negative 03/22/2025 - [facility] Clarity Ur Clear 03/22/2025 - [facility] Color Ur Yellow 03/22/2025 - [facility] Hgb Ur Ql Negative 03/22/2025 - [facility] Nitrite Ur Ql Negative 03/22/2025 - [facility] Glucose Ur Ql Negative 03/22/2025 - [facility] pH Ur 6.0 pH 03/22/2025 5 - 8 [facility] Leukocyte esterase Ur Ql Strip Negative 03/22/2025 - [facility] Base excess BldA Calc-sCnc 2.0 mmol/L 03/22/2025 0 - 2 [facility] SaO2 % BldA 98.5 % Above high normal 03/22/2025 95 - 98 [facility] pO2 BldA 98.0 mmHg 03/22/2025 80 - 105 [facility] pCO2 BldA 57.0 mmHg Above high normal 03/22/2025 35 - 45 C [facility] Chantelle index Bld+IhG-Rto 50.0 03/22/2025 [facility] HCO3 BldA-sCnc 26.5 mmol/L Above high normal 03/22/2025 [facility] pH BldA 7.32 pH Below low normal 03/22/2025 7.35 - 7.45 [facility] History of Medication Use Medication Directions Dispensed Refills Start Date End Date Status nicotine (NICODERM CQ) 14 mg/[address] 1 patch on the skin 1 (one) time each day at the same time. active ibuprofen (ADVIL,MOTRIN) tablet 400 mg 400 mg, oral, Every 6 hours PRN, moderate pain, Starting on Sat04/04/25 at 1124, Administer with food or milk to decrease GI upset active bisacodyL (DULCOLAX) suppository 10 mg 10 mg, rectal, Once, On Sat04/01/25 at 0930, For 1 dose 5 04/01/20 completed insulin lispro injection 8 Units 8 Units, subcutaneous, Once, On Sat03/30/25 at 1815, For 1 dose 03/30/20 completed senna (SENOKOT) tablet 17.2 mg 17.2 mg (2 tablet), oral, Nightly, First dose on Sat03/28/25 at 2100 active predniSONE (DELTASONE) tablet 40 mg 40 mg, oral, Daily, First dose on Sat03/28/25 at 0900 03/29/20 aborted magnesium oxide (MAG-OX) tablet 400 mg 400 mg, oral, 2 times daily, First dose on Sat03/27/25 at 0900, For 4 doses 03/29/20 completed sodium chloride 0.45 % infusion 100 mL/hr, intravenous, Continuous, Starting on Sat03/26/25 at 1445, For 10 hours 5 03/27/20 completed dextrose 5 % and sodium chloride 0.9 % infusion 75 mL/hr, intravenous, Continuous, Starting on Sat03/26/25 at 0700, For 8 hours 5 03/26/20 completed insulin glargine (LANTUS) injection 12 Units 12 Units, subcutaneous, Once, On Sat03/25/25 at 2230, For 1 dose 03/26/20 completed [...] mL/hr, Administer over 2 Hours, Once, On Sat03/25/25 at 1030, For 1 dose 03/25/20 completed pantoprazole (PROTONIX) EC tablet 40 mg 40 mg, oral, Every morning before breakfast, First dose on Sat03/25/25 at 1030, Do not crush, chew, or split. 03/25/20 aborted albuterol 2.5 mg /3 mL (0.083 %) nebulizer solution 2.5 mg 2.5 mg, nebulization, 4 times daily, First dose on Sat03/25/25 at 1400 active budesonide (PULMICORT) 0.5 mg/2 mL nebulizer solution 0.25 mg 0.25 mg, nebulization, Daily, First dose on Sat03/25/25 at 1400, Rinse mouth with water after use to reduce aftertaste and incidence of candidiasis. Do not swallow. active dextrose 15 gram/60 mL oral solution 15 g 15 g, nasogastric tube, Every 15 min PRN, low blood sugar, hypoglycemia *Patient conscious AND able to drink and swallow safely*, Starting on Sat03/25/25 at 1602 5 active dextrose 15 gram/60 mL oral solution 30 g 30 g, nasogastric tube, Every 15 min PRN, low blood sugar, hypoglycemia *Patient conscious AND able to drink and swallow safely*, Starting on Sat03/25/25 at 1603 5 active lithium capsule 300 mg 300 mg, nasogastric tube, 3 times daily with meals, First dose (after last modification) on Marybeth 03/25/25 at 1700 5 active melatonin tablet 6 mg 6 mg, nasogastric tube, Nightly PRN, insomnia, Starting on Sat03/25/25 at 1603 5 active acetylcysteine (MUCOMYST) 100 mg/mL (10 %) solution 400 mg 400 mg (4 mL), nebulization, 2 times daily, First dose (after last modification) on Sat03/25/25 at 2100 5 03/25/20 active cloZAPine (CLOZARIL) tablet 175 mg [Order 1 Start] Name: cloZAPine (CLOZARIL) tablet 175 mg Signed Summary: 175 mg, nasogastric tube, Daily, First dose (after last modification) on Sat03/26/25 at 0900, Has the home dose of cloZAPine and last date/time taken been confirmed? Yes, Has there been a break in cloZAPine therapy GREATER than 5 03/25/20 active insulin glargine (LANTUS) injection 25 Units 25 Units, subcutaneous, Nightly, First dose on Sat03/23/25 at 2100, Notify provider: -If patient is currently or will become NPO -If TPN was or will be interrupted or discontinued -For approval to hold long acting insulin 5 active pantoprazole (PROTONIX) injection 40 mg 40 mg, intravenous, Administer over 2 Minutes, Every 24 hours, First dose (after last modification) on Sat04/04/25 at 0130, Pantroprazole - IV push: Reconstitute powder for injection with 10 mL NS; final concentration: 4 mg/mL., Indication for IV Push Pantoprazole? Stress Ulcer Prophylaxis for patie 5 04/04/20 active mupirocin (BACTROBAN) 2 % ointment Each Nostril, 2 times daily, First dose on Sat03/22/25 at 2100, For 10 doses, [place] decolonization protocol, continue for a total of [...] is over 5 days, hold enteral nutrition 1 03/25/20 active lithium capsule 300 mg 300 mg, oral, 3 times daily with meals, First dose (after last modification) on Sat03/24/25 at 1200 03/25/20 aborted loratadine (CLARITIN) tablet 5 mg 5 mg, nasogastric tube, Daily, First dose (after last modification) on Sat03/23/25 at 1030 03/24/20 aborted cloZAPine (CLOZARIL) tablet 125 mg [...] than OR equal to 2 days? Yes 03/23/20 aborted fluPHENAZine (PROLIXIN) tablet 1 mg 1 mg, nasogastric tube, Daily, First dose (after last modification) on Sat03/23/25 at 1030 03/23/20 aborted enoxaparin (LOVENOX) injection 40 mg 40 mg, subcutaneous, Every 24 hours scheduled, First dose on Sat03/23/25 at 0900, Indication: VTE/PE Prophylaxis active gabapentin (NEURONTIN) capsule 600 mg 600 [...] End] [Order 3 Start] Name: Saline lock active insulin regular (HumuLIN R) injection 2-12 Units 2-12 Units, subcutaneous, 4 times daily before meals and nightly, First dose (after last modification) on Sat03/26/25 at 1845, Indication: Total Daily Dose (TDD) 40 - 80 units Correction Scale: Moderate Dose 04/02/20 aborted cefTRIAXone (ROCEPHIN) 2 g in sterile water 20 mL IV syringe 2 g, intravenous, at 400 mL/hr, Administer over 3 Minutes, Every 24 hours, First dose on Sat03/25/25 at 0900, For 4 days, Do not administer simultaneously with any calcium containing solutions via a Y-site in any patient., Indication: Pneumonia, Community Acquired 5 03/28/20 completed methylPREDNISolone sodium succ (SOLU-Medrol) injection [...] daily, First dose on Sat03/22/25 at 1600 5 03/26/20 aborted acetaminophen (TYLENOL) tablet 650 mg 650 mg, nasogastric tube, Every 6 hours PRN, mild pain, Starting on Sat03/25/25 at 1602 5 03/25/20 active ipratropium-albuteroL (DUONEB) 0.5-2.5 mg/3 mL nebulizer solution 3 mL 3 mL, nebulization, Every 6 hours PRN, wheezing, Starting on Sat03/25/25 at 1015 03/25/20 active polyethylene glycol (MIRALAX) packet 17 g 17 g, nasogastric tube, Daily, First dose (after last modification) on Sat03/26/25 at 0900, Bowel Regimen - for prevention of constipation 03/25/20 active midazolam (VERSED) injection 2 mg 2 mg, intravenous, Every 4 hours PRN, anxiety, sedation, Starting on Sat03/22/25 at 1514 5 03/24/20 aborted lactated Ringer's bolus 500 mL 500 mL, intravenous, at 500 mL/hr, Administer over 1 Hours, Once, On Sat03/22/25 at 1715, For 1 dose 03/22/20 25 completed dextrose (D50W) 50% injection 12.5 [...] 1 (one) time each day. 3 03/23/20 25 aborted insulin detemir (Levemir FlexPen) 100 unit/mL [...] Nightly, First dose (after last modification) on Marybeth 03/25/25 at 2100 03/25/20 active fluPHENAZine (PROLIXIN) 1 mg tablet Refills 0, Maintenance, 05/13/24 10:56:00 AM EDT, Partial fill upon patient request if the prescription is for a schedule II opioid drug. 03/23/20 aborted lithium (ESKALITH) 450 mg CR tablet Take 1 tablet (450 mg total) by mouth 2 times daily. 3 active Allergies Allergen Reaction Severity Comment Documented Date Source Statu s SULFA (SULFONAMIDE ANTIBIOTICS) 03/22/2025 [facility] active AMOXICILLIN [facility] Encounters Encounter Type Encounter Reason Primary Diagnosis Location Date Inpatient Bilateral Pneumonia Acute respir atory failure with hypoxia ([facility] V24, [facility] V28) [facility] 03[facility]22/2025 Care Team Organization Name Specialty Phone Email Start Date End Da te [facility] [place]/23/2025 [facility] 03/22/2025
--- OUTSIDE RECORDS SUMMARY | 2025-06-04 09:13 | XMS_ITS ---
Author Organization [facility] Care Team Providers Care Cottrell Blower Name Role Phone Gabriella Jamison Unavailable Unavailable Kentrell Gabriella Unavailable Unavailable Antolin, Markell Unavailable Unavailable Elias, February Unavailable UnavailMarlin Mcintosh Unavailable Unavailable Grover, Thelma Unavailable Unavailable Lord, Sylvia Unavailable Unavailable Polly, Woody Unavailable Unavailable Jaun, Jooyun Unavailable Unavailable Junaid Desir Unavailable Unavailable Camille, Kristy Unavailable Unavailable Grippin, Maria Unavailable Unavailable Levheim, Qiana Unavailable Unavailable Urena-Kiersandraa, Bijal Unavailable Unava ilable Nani Ramirez Unavailable Unavailable Allergies and adverse reactions Code CodeSystem Substance Reaction Severity StartDate Concern Status 39486 RXNORM Trimethoprim Unknown 05/05/[address] Sultamicillin Unknown 05/05/[id number] Sulfa Antibiotics Unknown 05/05/2025 active 7984 RXNORM Penicillin Unknown 05/05/2025 active 6902 RXNORM methylPREDNISolone Unknown 05/05/2025 ac tive 5093 RXNORM Haloperidol Moderate 05/05/2025 active 5093 RXNORM Haldol Unknown 05/05/[address] Eggs Unknown 05/05/2025 active Amoxicillin/Aspartame Mild 05/05/2025 active Care Team Name Role Address Phone Organization Dates Junaid Desir PCP [address] [facility] [address], [place], [address], [place] (Office): : : [facility] 05/05/2025 - 06/02/2025 Gabriella Jamison [address] [place] [address], [place], [address], [facility] (Office): : [facility] 05/05/2025 - 06/02/2025 Gabriella Kentrell [address] [place] [address], [place], [address], [facility] (Office): : [facility] 05/05/2025 - 06/02/2025 Markell Dangelo [address] [place] [address], [address], [facility] (Office): : [facility] 05/05/2025 - 06/02/2025 Marilu Griffin [address] [place] [address], [address], [place] (Office): : [facility] 05/05/2025 - 06/02/2025 Marlin Warner [address] [place] [address], [address], [place] (Office): : [facility] 05/05/2025 - 06/02/2025 Thelma Grover [address] [place] [address], [place], [address], [place] (Office): [facility] 05/05/2025 - 06/02/2025 Sylvia Negron [address] [place] [address], [address], [facility] (Office): : [facility] 05/05/2025 - 06/02/2025 Woody Matias [address] [place], [address], [place] (Office): : [facility] 05/05/2025 - 06/02/2025 Dominic Zamorano [address] [place] [address], [place], [address], [place] (Office): : [facility] 05/05/2025 - 06/02/2025 Kristy Obrien [address] [facility] [address], [place], [address], [place] (Office): : [facility] 05/05/2025 - 06/02/2025 Maria Craft [address] [place] [address], [place], [address], [place] (Office): : [facility] 05/05/2025 - 06/02/2025 Qiana Ramsey [address] [place] [address], [place], [address], [place] (Office): : [facility] 05/05/2025 - 06/02/2025 Bijal Duron [address] [place] [address], [place], [address], [place] (Office): : [facility] 05/05/2025 - 06/02/2025 Nani Ramirez [address] [place] [address], [place], [address], [place] (Office): : [facility] 05/05/2025 - 06/02/2025 Goals Section Goals Description Status Target Date Intake of meals 100% or as tolerated. Active 07/02/2025 Maintain weight 143lbs +/- < 5%, gradual weight gain is acceptable/beneficial Active 07/02/2025 Minimize risk for falls Active 07/02/20 25 Nutrition related labs at baseline for medical c onditions Active 07/02/2025 David Will accept care and medication as prescrib ed Active 07/02/2025 David Will be discharged to [facility] when clinical and rehabilitation goals are met Active 07/02/2025 David Will except care and medications as prescri bed Active 07/02/2025 David Will express feelings o f adjustment to new surroundings by next review Active 07/02/2025 David Will respond to MashON ns/statements with appropriate verbalization Active 07/02/2025 David will participate in ind ependent activities of choice such as listening to soft rock and watching the news and sports on tv through [employer]. Active 07/02/2025 David's Advanced Directives w ill be honored and reevaluated as needed Active 07/02/2025 Skin to remain intact. Active Will be free from skin breakdown Active 07/02/2025 Will be maintained in as elvira an and dry a dignified state as possible Active 07/02/2025 Will decrease/minimize skin breakdown risks Acti ve 07/02/2025 Will express that pain management is within acce ptable limits Active 07/02/2025 Will have medication dose reduction/elimination as indicated Active 07/02/2025 Will have no complications due to incontinence A ctive 07/02/2025 Will receive assistance necessary to meet ADL ne eds Active 07/02/2025 Will tolerate diet, texture and fluid consistency without signs and symptoms of aspiration Active 07/02/2025 Immunizations Immunization Status Vaccine Details Vaccine Code CodeSystem Date Notes Prevnar 20 Pneumococcal conjugate (PCV20) completed Pneumococcal conjugate vaccine 20-valent (PCV20), polysaccharide [id number] conjugate, adjuvant, preservative free 216 CVX created date: 05/10/2025 administere d date: 04/08/2025 COVID-19, mRNA, LNP-S, PF, 50 mcg/0.5 mL completed SARS-COV-2 (COVID-19) vaccine, mRNA, spike protein, LNP, preservative free, 50 mcg/0.5 mL dose 312 CVX created date: 05/10/2025 administere d date: 04/08/2025 Medications Section Medication Name Status Code CodeSystem Dose Route Frequency Admin Type Sig Text Start Date End Date Fleet Enema Enema 7-19 GM/118ML aborted 221898 RXNORM 1 unit Rectal as needed PRN Insert 1 unit rectal ly every 24 hours as needed for Consti pation Use only if Bisaco dyl Suppos itory is ineffe ctive 06/01 Tamsulosin HCl Capsule 0.4 MG active 878635 RXNORM 1 capsul e Oral at bedtime Routine Give 1 capsul e by mouth at bedtim e for BPH Do not crush/ chew or open capsul e. Take 30 minute s after the same meal each day. May cause dizzin ess. 2024 - Acetaminophen Oral Tablet 500 MG aborted RXNORM 1 tablet Oral as needed PRN Give 1 tablet by mouth every 4 hours as needed for Pain Do not exceed 3 grams in 24 hours AND Give 1 tablet by mouth every 4 hours as needed for Elevat ed temper ature of 100.4 or greate r Do not exceed 3 grams in 24 hours 06/01 RXNORM 1 tablet Oral as needed PRN Give 1 tablet by mouth every 4 hours as needed for Pain Do not exceed 3 grams in 24 hours AND Give 1 tablet by mouth every 4 hours as needed for Elevat ed temper ature of 100.4 or greate r Do not exceed 3 grams in 24 hours 06/01 Bisacodyl Suppository 10 MG aborted 410984 RXNORM 1 suppos itory Rectal as needed PRN Insert 1 suppos itory rectal ly every 24 hours as needed for consti pation Use if Senna is Ineffe ctive 06/01 Senna Tablet 8.6 MG aborted 377961 RXNORM 1 tablet Oral as needed PRN Give 1 tablet by mouth every 24 hours as needed for Consti pation 06/01 Desmopressin Acetate Oral Tablet 0.1 MG active 744688 RXNORM 1 tablet Oral at bedtime Routine Give 1 tablet by mouth at bedtim e for BPH 2024 - Albuterol Sulfate HFA Aerosol Solution 108 (90 Base) MCG/ACT active 095228 1 RXNORM 2 puff Inhalat ion as needed PRN 2 puff inhale orally as needed for Shortn ess of breath 2024 - Insulin Lispro Injection Solution 100 UNIT/ML aborted 079150 RXNORM n/a n/a Subcuta neous three times a day Routine Inject as per nick g scale: if 151 - 200 = 2; 201 - 250 = 6; 251 - 300 = 8; 301 - 350 = 10; 351 - 400 = 12, subcut aneous ly three times a day for DMII 05/21 Cefuroxime Axetil Oral Tablet 500 MG complete d 731731 RXNORM 1 tablet Oral two times a day Routine Give 1 tablet by mouth two times a day for Pneumo aleida for 4 Admini strati ons 05/08 Atorvastatin Calcium Oral Tablet 40 MG active 045461 RXNORM 1 tablet Oral at bedtime Routine Give 1 tablet by mouth at bedtim e for hyperl ipidem ia 2024 - MetroNIDAZOLE Tablet 500 MG aborted 799704 RXNORM 1 tablet Oral every 8 hours Routine Give 1 tablet by mouth every 8 hours for COPD exacer bation for 6 Admini strati ons Avoid alcoho l. May discol or urine. 05/06 glipiZIDE Oral Tablet 2.5 MG active 1 tablet Oral one time a day Routine Give 1 tablet by mouth one time a day for DMII 2024 - Nicotine Mini Mouth/Throat Lozenge 2 MG aborted 1 lozeng e Oral as needed PRN Give 1 lozeng e by mouth every 2 hours as needed for nicoti ne farhat gs 05/10 Fluticasone Propionate Nasal Suspension 50 MCG/ACT aborted 376654 7 RXNORM 1 spray Nasal one time a day Routine 1 spray in both nostri ls one time a day for Allerg ies 05/10 Lidocaine Patch 4 % active 525212 8 RXNORM n/a n/a Topical one time a day Routine Apply to affect ed area topica lly one time a day for Pain Manage ment Apply for 12 Hours in a 24 Hour period . Max dose = 3 patche s. Syrup Mixer Assistant al use only. and remove per schedu le 2024 - Cetirizine HCl Oral Tablet 5 MG active 253728 6 RXNORM 1 tablet Oral one time a day Routine Give 1 tablet by mouth one time a day for Allerg ies 2024 - Gabapentin Tablet 600 MG active 892210 RXNORM 1 tablet Oral three times a day Routine Give 1 tablet by mouth three times a day for pain May cause drowsi ness or dizzin ess. Avoid alcoho l. 2024 - Trelegy Ellipta Inhalation Aerosol Powder Breath Activated 100-62.5-25 MCG/ACT active 882336 4 RXNORM 1 inhala tion Inhalat ion one time a day Routine 1 inhala tion inhale orally one time a day for COPD 2024 - [place] Carbonate ER Oral Tablet Extended Release 450 MG active 19780713 RXNORM 1 tablet Oral two times a day Routine Give 1 tablet by mouth two times a day for Schizo phreni a 2024 - cloZAPine Oral Tablet 100 MG active 19750113 RXNORM 1 tablet Oral one time a day Routine Give 1 tablet by mouth one time a day for Schizo phreni a Take with 75mg to = 175mg dose AND Give 1 tablet by mouth at bedtim e for Schizo phreni a 2024 - 19750113 RXNORM 1 tablet Oral at bedtime Routine Give 1 tablet by mouth one time a day for Schizo phreni a Take with 75mg to = 175mg dose AND Give 1 tablet by mouth at bedtim e for Schizo phreni a 2024 - Insulin Glargine Subcutaneous Solution 100 UNIT/ML active 771995 RXNORM 15 unit Subcuta neous at bedtime Routine Inject 15 unit subcut aneous ly at bedtim e for DMII 2024 - Atenolol Oral Tablet 25 MG active 084109 RXNORM 1 tablet Oral one time a day Routine Give 1 tablet by mouth one time a day for HTN 2024 - Docusate Sodium Oral Tablet 100 MG aborted 398839 9 RXNORM 1 tablet Oral as needed PRN Give 1 tablet by mouth every 12 hours as needed for consti pation 06/01 fluPHENAZine HCl Oral Tablet 1 MG active 964290 RXNORM 1 tablet Oral one time a day Routine Give 1 tablet by mouth one time a day for Schizo phreni a 2024 - metFORMIN HCl Oral Tablet 1000 MG active 799976 RXNORM 1 tablet Oral two times a day Routine Give 1 tablet by mouth two times a day for DMII 2024 - Levothyroxine Sodium Oral Tablet 75 MCG active 255201 RXNORM 1 tablet Oral in the morning Routine Give 1 tablet by mouth in the mornin g for Hypoth yroid Take with 100mcg dose to = 175mcg 2024 - Levothyroxine Sodium Tablet 100 MCG active 399140 RXNORM 1 tablet Oral in the morning Routine Give 1 tablet by mouth in the mornin g for Hypoth yroid Take with 100mcg dose to = 175mcg 2024 - cloZAPine Oral Tablet active 75 mg Oral one time a day Routine Give 75 mg by mouth one time a day for Schizo phreni a Take with 100mg to = 175mg 2024 - MetroNIDAZOLE Tablet 500 MG complete d 371650 RXNORM 1 tablet Oral every 8 hours Routine Give 1 tablet by mouth every 8 hours for COPD exacer bation for 6 Admini strati ons Avoid alcoho l. May discol or urine. 05/08 Fluticasone Propionate Nasal Suspension 50 MCG/ACT active 525853 7 RXNORM 1 spray Nasal two times a day Routine 1 spray in both nostri ls two times a day for Allerg ies 2024 - Nicotine Mini Mouth/Throat Lozenge 2 MG aborted 1 lozeng e Oral as needed PRN Give 1 lozeng e by mouth every 1 hours as needed for nicoti emely morse 05/10 Nicotine Mini Mouth/Throat Lozenge 2 MG active 1 lozeng e Oral as needed PRN Give 1 lozeng e by mouth every 1 hours as needed for nicoti emely morse not to exceed 16/day 2024 - Mental Status Section Date Assessment Total Score Description 05/11/2025 BIMS 06 severe cognitiv e impairment CAM 0 No delirium ind icated PHQ-9 12 moderate depres brian Problems Problem # Description Date of onset Resolved Date Code CodeSystem Concern Status 1 ACUTE RESPIRATORY FAILURE WITH HYPOXIA 05/05/[address] active 2 BENIGN PROSTATIC HYPERPLASIA WITHOUT LOWER URINARY TRACT SYMPTOMS 05/05/[address] active 3 CHRONIC OBSTRUCTIVE PULMONARY DISEASE WITH (ACUTE) EXACERBATION 05/05/[address] active 4 DIFFICULTY IN WALKING, NOT ELSEWHERE CLASSIFIED 05/05/[address] active 5 DYSPHAGIA, OROPHARYNGEAL PHASE 05/05/[address] active 6 HYPERLIPIDEMIA, UNSPECIFIED 05/05/[address] active 7 MUSCLE WEAKNESS (GENERALIZED) 05/05/[address] active 8 OTHER ASTHMA 05/05/[address] acti ve 9 OTHER LACK OF COORDINATION 05/05/[address] active 10 PERSONAL HISTORY OF TRAUMATIC BRAIN INJURY 05/05/[address] active 11 PNEUMONITIS DUE TO INHALATION OF FOOD AND VOMIT 05/05/[address] active 12 SCHIZOPHRENIA, UNSPECIFIED 05/05/[address] active 13 TYPE 2 DIABETES MELLITUS WITHOUT COMPLICATIONS 05/05/[address] active Reason for Referral No Reasons for Referral Entered Social History Social History Observation Description Start Date End Date Code Code System Current Smoking Status Tobacco smoking consumption unknown 646275963 SNOMED CT Sex Assigned At Male 1965 28252-1 [facility] Gender Identity Male [id number] [address] Vital Signs Code Code System Vitals Name Values and Units Timing Information 9279-1 [facility] Respiratory Rate Value=16.0 Units=/m in 06/01/2025 8462-4 [facility] Blood Pressure-Diastolic Value=75 Un its=mmHg 06/01/2025 8480-6 [facility] Blood Pressure-Systolic Nmgeb=986 Un its=mmHg 06/01/2025 8310-5 [facility] Body Temperature Value=97.7 Units= F 06/01/2025 8867-4 [facility] Heart rate Value=94.0 Units=/min 87036-0 [facility] O2 % BldC Oximetry Value=93.0 Units= % 06/01/2025 2339-0 [facility] Blood Sugar Value=90.0 Units=mg/dL 06/01/2025 06528-3 [facility] Pain Level Value=0.0 06/01/2025 90226-8 [facility] Weight Btpfu=925.2 Units=Lbs 8302-2 [facility] Height Value=72.0 Units=Inches 05/05/2025
--- OUTSIDE RECORDS SUMMARY | 2025-06-04 09:13 | XMS_ITS | Data Portability ---
Author Organization [facility] [employer] [facility], Main Office Address [address], [address] [place] [address] Care Team Providers Care Forepart Reducer Name Role Phone AVA CHIQUI MCKEON Primary Care Provider [facility] ([facility] OTHER Assessment No assessment recorded. Plan of Treatment Reminders Order Date Submit Date Provider Last Modified By Organization Details Last Modified Time Details Appointments None record ed. Lab None record ed. Referral None record ed. Procedures None record ed. Surgeries None record ed. Imaging None record ed. Medication Orders None record ed. Patient TargetsNo targets recorded. Patient InstructionsNo instructions recorded. Reason for Referral None Reported. Problems Name Problem SNOMED Code Status Onset Date Resolution Date Notes Provider Name and Address Organization Details Recorded Time Schizophre aleida 28848332 Active 2023 Kristy Obrien NP [address], [address], [place], [address] , [facility] [employer] 4 09:17:56 Hyperlipid emia 59471952 Active 2023 Kristy Obrien NP [address], [address], [place], [address] , [facility] [employer] 4 09:18:17 Type 2 diabetes mellitus 91065161 Active 2023 Kristy Obrien NP [address], [address], [place], [address] , [facility] [employer] 4 09:18:27 Hypothyroi dism 10130150 Active 2023 Kristy Obrien NP [address], [address], [place], [address] , [facility] [employer] 4 09:18:38 Asthma 506275828 Active 2023 Kristy Obrien NP [address], [address], [place], [address] , [facility] 4 09:18:46 Seasonal allergy 636489007 Active 2023 Kristy Obrien NP [address], [address], [place], [address] , [facility] 4 09:19:19 Hypertensi ve disorder 57992036 Active 2023 Kristy Obrien NP [address], [address], [place], [address] , [facility] 4 09:19:31 Urinary outflow obstructio n 389954720 Active 2023 Kristy Obrien NP [address], [address], [place], [address] , [facility] 4 09:21:04 Partial excision of small intestine Active 2023 Kristy Obrien NP [address], [address], [place], [address] , [facility] 4 09:22:07 Laparotomy 77925717 Active 2023 Kristy Obrien NP [address], [address], [place], [address] , [facility] 4 09:22:28 Abdominal pain 48476029 Active 2023 Kristy Obrien NP [address], [address], [place], [address] , [facility] 4 09:22:47 Traumatic brain injury 047976162 Active 2023 Kristy Obrien NP [address], [address], [place], [address] , [facility] 4 09:53:08 Diabetic foot ulcer 417785133 Active 2023 Kristy Obrien NP [address], [address], [place], [address] , [facility] 4 10:09:34 Hypoxia 391579165 Active 2023 Kristy Obrien NP [address], [address], [place], [address] , [facility] [employer] 4 10:10:32 Acute hypoxemic respirator y failure 508241698 Active 2024 Not Available [facility] 5 07:51:00 Type 2 diabetes mellitus without complicati on 121923002 Active 2024 Not Available [facility] 5 07:53:55 Benign prostatic hyperplasi a 191007397 Active 2024 Not Available [facility] 5 07:55:51 Pneumoniti s caused by inhalation of regurgitat ed food 926048805 Active 2024 resolved in hospital Not Available [facility] 5 07:58:50 Acute exacerbati on of chronic obstructiv e pulmonary disease 849364460 Active 2024 Not Available [facility] 5 08:00:46 Muscle weakness 85123312 Active 2024 Not Available [facility] 14:36:03 Incoordina tion 947197471 Active 2024 Not Available [facility] 14:36:05 Difficulty walking 870041407 Active 2024 Not Available [facility] 14:37:59 Oropharyng eal dysphagia 67454256 Active 2024 Not Available [facility] 14:38:01 Problem Notes None recorded. Medical Equipment None Reported. Allergies Allergen ID Allergen Name Allergen Category Reaction Reaction Severity Criticality Documentation Date Start Date Code Code System Note Provider Name and Address Organization Details Recorded Time 30557 amoxicill in medicatio n rash Not available Not available 02/27/2024 723 RxNorm Kristy Obrien NP [address], [address], [place], [address], [facility] 4 08:52:08 13897 egg extract food,medi cation hives vomiting Not available Not available unabletoasse 02/27/2024 81236 15 RxNorm Kristy Obrien NP [address], [address], [place], [address], [facility] 4 08:52:36 61910 Product containin g penicilli n (product) medicatio n rash Not available Not available 02/27/2024 62986 8001 SNOMED Kristy Obrien NP [address], [address], [place], [address], [facility] 4 08:52:58 28012 Substance with sulfonami de structure and antibacte rial mechanism of action (substanc e) medicatio n rash Not available Not available 02/27/2024 99525 8003 SNOMED Kristy Obrien NP [address], [address], [place], [address], [facility] 4 08:53:21 39220 trimethop rim medicatio n Not available Not available Not available 02/27/20242024 61946 RxNorm Not Available [facility] 5 15:12:50 88317 Haldol medicatio n Not available Not available Not available 02/27/20242024 33587 9 RxNorm Not Available [facility] 5 15:13:25 99339 latex environme nt,medica tion Not available Not available unabletoasse 02/27/2024 15650 91 RxNorm unkno wn Kristy Obrien NP [address], [address], [place], [address], [facility] 4 08:54:18 07964 methylpre dnisolone medicatio n Not available Not available Not available 02/27/20242024 6902 RxNorm Not Available [facility] 5 15:14:25 33808 sultamici llin Not available Not available Not available Not available 02/27/20242024 36243 RxNorm Not Available [facility] 15:15:36 15909 haloperid ol medicatio n Not available Not available Not available 05/05/20252024 5093 RxNorm Not Available [facility] 15:09:05 Medications Name Sig Start Date Stop Date Status Note LastModified by Organization Details LastModified Time L-Thyroxine Sodium 100 mcg tablet Give 1 tablet by mouth in the morning for Hypothyro id Take with 100mcg dose to = 175mcg 2024 active Not Available Not Available Not Avai lable atorvastati n 40 mg tablet Give 1 tablet by mouth at bedtime for hyperlipi demia 2024 active Not Available Not Available Not Avai lable gabapentin 600 mg tablet Give 1 tablet by mouth three times a day for pain May cause drowsines s or dizziness . Avoid alcohol. 2024 active Not Available Not Available Not Avai lable insulin glargine (U-100) 100 unit/mL subcutaneou s solution Inject 15 unit subcutane ously at bedtime for DMII 2024 active Not Available Not Available Not Avai lable clozapine 100 mg tablet Give 1 tablet by mouth one time a day for Schizophr enia Take with 75mg to = 175mg dose AND Give 1 tablet by mouth at bedtime for Schizophr enia 2024 active Not Available Not Available Not Avai lable L-Thyroxine 75 mcg tablet Give 1 tablet by mouth in the morning for Hypothyro id Take with 100mcg dose to = 175mcg 2024 active Not Available Not Available Not Avai lable atenolol 25 mg tablet Give 1 tablet by mouth one time a day for HTN 2024 active Not Available Not Available Not Avai lable Flonase 50 mcg/actuati on nasal spray,suspe nsion 1 spray in both nostrils two times a day for Allergies 2024 active Not Available Not Available Not Avai lable Zyrtec 5 mg tablet Give 1 tablet by mouth one time a day for Allergies 2024 active Not Available Not Available Not Avai lable fluphenazin e 1 mg tablet Give 1 tablet by mouth one time a day for Schizophr enia 2024 active Not Available Not Available Not Avai lable Non-Aspirin Extra Strength 500 mg tablet Give 1 tablet by mouth every 4 hours as needed for Pain Do not exceed 3 grams in 24 hours AND Give 1 tablet by mouth every 4 hours as needed for Elevated temperatu re of 100.4 or greater Do not exceed 3 grams in 24 hours 2024 active Not Available Not Available Not Avai lable tamsulosin 0.4 mg capsule Give 1 capsule by mouth at bedtime for BPH Do not crush/aleksey w or open capsule. Take 30 minutes after the same meal each day. May cause dizziness . 2024 active Not Available Not Available Not Avai lable Eskalith CR 450 mg tablet,exte nded release Give 1 tablet by mouth two times a day for Schizophr enia 2024 active Not Available Not Available Not Avai lable Flagyl 500 mg tablet Give 1 tablet by mouth every 8 hours for COPD exacerbat ion for 6 Administr ations Avoid alcohol. May discolor urine. 05/08 completed Not Available Not Available Not Available metformin 1,000 mg tablet Give 1 tablet by mouth two times a day for DMII 2024 active Not Available Not Available Not Avai lable insulin lispro (U-100) 100 unit/mL subcutaneou s solution Inject as per sliding scale: if 151 - 200 = 2; 201 - 250 = 6; 251 - 300 = 8; 301 - 350 = 10; 351 - 400 = 12, subcutane ously three times a day for DMII 2024 active Not Available Not Available Not Avai lable cefuroxime axetil 500 mg tablet Give 1 tablet by mouth two times a day for Pneumonia for 4 Administr ations 05/08 completed Not Available Not Available Not Available Laxative (sennosides ) 8.6 mg tablet Give 1 tablet by mouth every 24 hours as needed for Constipat ion 2024 active Not Available Not Available Not Avai lable albuterol sulfate HFA 90 mcg/actuati on aerosol inhaler 2 puff inhale orally as needed for Shortness of breath 2024 active Not Available Not Available Not Avai lable desmopressi n 0.1 mg tablet Give 1 tablet by mouth at bedtime for BPH 2024 active Not Available Not Available Not Avai lable Stulex 100 mg tablet Give 1 tablet by mouth every 12 hours as needed for constipat ion 2024 active Not Available Not Available Not Avai lable sodium phosphates 19 gram-7 gram/197 mL enema Insert 1 unit rectally every 24 hours as needed for Constipat ion Use only if Bisacodyl Supposito ry is ineffecti ve 2024 active Not Available Not Available Not Avai lable Lidocaine Pain Relief 4 % topical patch Apply to affected area topically one time a day for Pain Managemen t Apply for 12 Hours in a 24 Hour period. Max dose = 3 patches. External use only. and remove per schedule 2024 active Not Available Not Available Not Avai lable OneLAX Bisacodyl 10 mg rectal suppository Insert 1 supposito ry rectally every 24 hours as needed for constipat ion Use if Senna is Ineffecti ve 2024 active Not Available Not Available Not Avai lable Vitals None Recorded Social History Question Answer Notes LastModified by Organizat ion Details LastModified Time Tobacco Smoking Status Current Every Day Smoker smoking 1-1.5 ppd since a teenager Kristy Obrien, [facility] [address] [facility] [address], [place], [address], [facility] [employer] 02/27/2024 10:11:57 Do You Have An Advance Directive? No Information not available 02/27/2024 What Is Your Level Of Caffeine Consumption? Occasional 1-2 Cups Per Day Information not available 02/27/2024 What Is Your Code Status? Full Code Invoked And No Hcp Here, Will Contact He Would Like To Be Full Code If Possible Information not available 02/27/2024 Where Do You Live? Other Detention Information not available 02/27/2024 What Was The Date Of Your Most Recent Tobacco Screening? 02/27/2024 Information not available 02/27/2024 Do You Have An Out Of Hospital DNR? No Information not available 02/27/2024 What Is Your Relationship Status? Single Information not available 02/27/2024 How Much Tobacco Do You Smoke? 1 PPD Information not available 02/27/2024 Has Tobacco Cessation Counseling Been Provided? Yes Offered NRT And Refuses Information not available 02/27/2024 On What Date Was Tobacco Cessation Counseling Provided? 02/27/2024 Information not available 02/27/2024 Do You Have Any Dietary Restrictions? No Information not available 02/27/2024 Sex: Male Functional Status Question Answer Note LastModified by Organizat ion Details LastModified Time Do you use any illicit or recreational drugs? No Information not available 02/27/2024 Do you or have you ever used any other forms of tobacco or nicotine? No Information not available 02/27/2024 What is your level of alcohol consumption? None Information not available 02/27/2024 Mental Status None recorded. Family History Nothing Reported Notes:nc Medical History No medical history recorded. Immunizations Vaccine Type Date Status Note Provider Nam e and Address Organization Details Recorded Time Td(adult) unspecified formulation 02/03/2013 completed Maryelva Arauz [facility] 02/27/2024 16:17:35 influenza, unspecified formulation 10/28/2023 completed Mary Arauz [facility] 02/27/2024 16:17:49 SARS-COV-2 (COVID-19) vaccine, UNSPECIFIED 12/08/2020 completed Mary Arauz [facility] 02/27/2024 16:18:07 SARS-COV-2 (COVID-19) vaccine, UNSPECIFIED 12/29/2020 completed Mary Arauz [facility] 02/27/2024 16:18:15 SARS-COV-2 (COVID-19) vaccine, UNSPECIFIED 09/06/2021 completed Mary Arauz [facility] 02/27/2024 16:18:22 SARS-COV-2 (COVID-19) vaccine, UNSPECIFIED 08/23/2023 completed Mary Arauz [facility] 02/27/2024 16:18:31 SARS-COV-2 (COVID-19) vaccine, UNSPECIFIED 10/28/2023 completed Mary veliz [place] [facility] 02/27/2024 16:18:38 Past Encounters Encounter ID Performer Location Encounter Start Date Encounter Closed Date Diagnosis/Indication Diagnosis SNOMED-CT Code Diagnosis ICD10 Code Diagnosis Note [id number] Kristy Obrien NP [facility] [address] [place] [address] 02/27/2024 08:26:13 03/04/2024 08:58:17 Asthenia 00981902 R53.1 weakness from recent pna and abd resectionP T OT eval and treatsuppo rtive care as devices as neededmoni tor Abdominal pain 49929429 R10.9 status post bowel resection on 02/16/[address] cristina in 2 weeksdoxyc ycline 100 mg po bid x 4 daysmay apply ice pack for 20 minutes on 20 minutes offok to showerstap les to be removed 10-14 days at fu apptno heavy lifting> 10 lbs or strenuous activityns g to monitor for temp >101.5, pain, swelling, excessive bleeding, vomiting/n ausea, dehiscence , s/s of infection (light blood or clear fluid is normal)ibu profen 600 mg po q 6 hours prntylenol 650 mg po q 4 hours prn nte 3 g/24 hoursgabap entin 600 mg po tidvitals daily Type 2 mechelle betes mellitus 44529148 E11.9 metformin 1000 mg po bid with mealslispr o ISSmonitor bs with meals and need for titration Diabetic foot ulcer 3710 74664 E13.621 see hpicleanse dm ulcer with ns, pack with ca alginate, apply dcd, dailyconsu lt wound team for debridemen t and carewill order xray to ro osteomyeli tis of great toensg to contact longterm for appropriat e footwear, boots are rubbingwil l cont doxycyclin e 100 mg po bid x 2 weeks and reeval with probiotic on march 12 ibuprofen 600 mg po q 6 hours prntylenol 650 mg po q 4 hours prn nte 3 g/24 hoursgabap entin 600 mg po tidmonitor Schizophrenia 55233215 F 20.9 clozaril to restart outpt on 03/18/24 per instructio nslithium carbonate 450 mg er po bidfluphen azine 1 mg po qhslithium level on 02/25 wnl Hypertensive disorder 38 387236 I10 atenolol 25 mg po dialymonit or vitals Hypothyroidism 64534450 E03.9 levothyrox ine 150 mcg po dailymonit or tsh prn Hyperlipidemia 40795784 E78.5 atorvastat in 40 mg po qhsmonitor Asthma 106209200 J45.90 9 ? 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 related to warmonitor Pneumonia 729698652 J18. 9 hypoxia felt related to pna resolvedtr eated with o2, nebs, ceftriaxon e, and inhalersmo nitor for reoccuranc e Moderate c ognitive impairment 156320116 R41.9 mod cog impairment with TBIinvoke ptsupporti ve caremonito r for changes Smoker 65153674 F17.200 offered NRT but refusessta camila it will destabiliz e him being off clozaril and [facility] [id number] [facility] [address] 02/28/2024 10:37:47 03/04/2024 09:40:12 Small bowel obstruction 338455297 K56.691 see HPIcomplet e course of doxycyclin eadd probioticm onitor cbcmonitor siteupdate surgery with concerns Hospital a cquired pneumonia 542202120 Y95 concern for pneumonia, vs copd in hospitaltr eated with rocephinmo nitor respirator y function and need for repeat imaging Asthenia 66277262 R53.1 PT OT eval and treatmonit or fall risk Type 2 mechelle betes mellitus 73399163 E11.9 metformin 1000 mg po bidins SSmonitor blood glucose and need to titrate Diabetic foot ulcer 3710 07038 E13.621 wound care to eval and followmoni tor for secondary infection Schizophrenia 88383032 F 20.1 increased sx in hospital eval by pschrestar t clozapine 25 mg qhspsych to eval at [facility] t patient f/u in placeconti nued on lithium and fluphenazi nemonitor behaviors Hypertensive disorder 38 030792 I10 atenolol 25 mg po qdmonitor bp and need to titrate Hypothyroidism 20035471 E03.8 synthroid 150 mcg qdmonitor tsh prn Hyperlipidemia 36357128 E78.2 lipitor 40 mg qdcontinue d Seasonal allergy 0406459 04 J30.2 loratadine 10 mg po qdflonase 1 spray qdcontinue d Urinary ou tflow obstruction 820702314 N13.9 flomax 0.4 mg qdmonitor for sx relief Traumatic brain injury 268208229 S06.9X0S carrying dxadded to PMHHCP invoked Moderate c ognitive impairment 159415931 R41.9 carrying dxHCP invokedcon tinue supportive caremonito r for behaviors Smoker 10674316 F17.200 encourage quitting however with underlying schizophre aleida patient has no interestmo nitor patient attempting to elope do to this Benign pro static hyperplasia without outflow obstruction 377718562 N40.0 flomax 0.4 mg qdmonitor for sx relief [id number] [facility] [employer] [place] [address] [place] [address] 05/06/2025 10:24:36 05/12/2025 16:53:02 Sepsis 66512837 A41.9 R65.20 dt aspiration PNAresolve d Acute hypo xemic respiratory failure 811192928 J96.01 dt aspiration PNAseverel y hypoxic in the EDrequired 15 L non rebreather , weaned to 3 L NCcont supp O2wean as tolerated, goal spo2 > 92%RT to follow Pneumoniti s caused by inhalation of regurgitated food 932257524 J69.0 with hypoxiaori ginally received IV rocpehen and flagyltran sitioned to po ceftin and po flagylcont antbxmonit or resp statusrema ins on supp O2 History of Disorder 3128 14165 Z87.898 causing PNAaspirat ion precaution sspecializ ed dietSLP to follow up Asthma 941466125 J45.90 9 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 ellipta 1 inhal dailyalb inhaler q6h prnmonitor resp status Hyperlipidemia 52034042 E78.2 cont statinlipi ds outpt Hypertensive disorder 38 544779 I10 cont atenololmo nitor bp and labs Hypothyroidism 82190961 E03.8 cont synthroid 175 mcg dailythyro id panel outpt Traumatic brain injury 438252101 S06.9X0S lives in longterm Schizophrenia 10556194 F 20.1 no med changes inpt, stable at baselinemo nitor behaviors and affectpara noid on examcont home meds: gabapentin , lithium, clozapine, fluphenazi nepsych eval prn Urinary ou tflow obstruction 579421665 N13.9 cont flomax and desmopress inmonitor UOP Type 2 mechelle betes mellitus 91331537 E11.9 cont glipizide 2.5 mg dailycont accuchecks tid with lispro sscont lantus 15 units qhscont metformin 1000 mg bidmonitor [id number] MD OPAL Vega [address] [place] [address] 05/10/2025 09:39:48 05/25/2025 11:23:09 Schizophrenia 67978119 F20.1 comorbid TBIclozapi ne 175mg daily / fluphenazi ne 1md daily / lithium 450mg bid / gabapentin 600mg tid Type 2 mechelle betes mellitus 54197671 E11.9 metformin 1000 mg po bid / glipizide 2.5mg daily / glargine insulin 15U qhs + ISS 05/10/2025 08:10 121.0 mg/dL rkennedy4 (Manual) 17:24 80.0 mg/dL lcox (Manual) 12:08 150.0 mg/dL kmcdonald3 (Manual) 07:48 92.0 mg/dL kmcdonald3 (Manual) 16:53 70.0 mg/dL osarong (Manual) 13:30 70.0 mg/dL osarong (Manual) 08:53 133.0 mg/dL osarong (Manual) 17:33 166.0 mg/dL jolayiwola (Manual) 12:05 120.0 mg/dL mbeaumont (Manual) 07:54 160.0 mg/dL mbeaumont (Manual) 15:49 81.0 mg/dL mbeaumont (Manual) Hypertensive disorder 38 632825 I10 atenolol 25 mg po qd; labile; continue to follow 05/10/2025 09:39 125 / 74 mmHg Sitting r/arm rkennedy4 (Manual) 11:43 92 / 50 mmHg Other kmcdonald3 (Manual) 15:40 142 / 56 mmHg Sitting l/arm osarong (Manual) 23:40 124 / 63 mmHg Lying l/arm jolayiwola (Manual) 22:06 120 / 62 mmHg Lying l/arm jolayiwola (Manual) 12:06 127 / 63 mmHg Lying r/arm mbeaumont (Manual) 05:12 115 / 62 mmHg Lying l/arm cpalm (Manual) 19:28 129 / 62 mmHg Lying r/arm mbeaumont (Manual) 08:50 88 / 63 mmHg Sitting l/arm Hypothyroidism 85345732 E03.8 synthroid 175mcg daily Hyperlipidemia 55801532 E78.2 atorvastat in 40 mg qd Seasonal allergy 0697805 04 J30.2 nasal steroids daily / cetirizine 5mg daily. Increase nasal steroids to bid Benign pro static hyperplasia without outflow obstruction 026310941 N40.0 flomax 0.4 mg qd / desmopress in 0.1 mg qhs Smoker 90310357 F17.200 on nicotine replacemen tsmoked 1 ppd for a while and was able to cut back to 1/2 ppd; discussed use of lozenges (may increase to q1hour as needed use. Aspiration pneumonitis 849901959 J69.0 CXR with multi-loba r pnuemonia, hypoxemic resp failure/ COPD-asthm a exacerbati on with continued ambulatory desaturati on, noted troponin bump (426) without CK elevations /p treatment with Rocephin/F lagylasthe aleida from acute serious conditionP T/OTcurren tly off resting 2 but may need post-exert ional sat Acute exac erbation of chronic obstructive pulmonary disease with asthma 4250592428 100 J44.1 Trelegy / PRN albuterol MDI For resuscitation 559080 001 Z78.9 Normocytic anemia 343629 002 D64.9 Hgb 11.4 (04/28) [id number] [facility] [employer] [facility] [address] [place] [address] 05/11/2025 08:46:40 05/12/2025 18:04:48 Acute hypoxemic respiratory failure 382700585 J96.01 dt aspiration PNAremains on O2 here, none at baselinewe an as tolerated, goal spo2 > 92%RT to follow Pneumoniti s caused by inhalation of regurgitated food 899397693 J69.0 completed course of antbxencou rage IS use, and oob for mealsmonit or resp statusrema ins on supp O2 Asthma 777551553 J45.90 9 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 dtrelegy ellipta 1 inhal dailyalb inhaler q6h prnmonitor resp status Hypertensive disorder 38 140106 I10 BP controlled cont atenololmo nitor bp and labs Schizophrenia 81902141 F 20.1 no med changes inpt, stable at baselinemo nitor behaviors and affectmild ly paranoid on examcont home meds: gabapentin , lithium, clozapine, fluphenazi nepsych eval prn Urinary ou tflow obstruction 083206235 N13.9 good urine output, using urinalcont flomax and desmopress inmonitor UOP Type 2 mechelle betes mellitus 95797307 E11.9 very well controlled cont glipizide 2.5 mg dailycont accuchecks tid with lispro sscont lantus 15 units qhscont metformin 1000 mg bidmonitor [id number] [place] [address] 05/18/2025 07:20:15 05/19/2025 15:33:22 Acute hypoxemic respiratory failure 409105186 J96.01 resolvedno w on RA Pneumoniti s caused by inhalation of regurgitated food 808975445 J69.0 completed course of antbxresol drew Asthma 890492345 J45.90 9 h/o 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 dtrelegy ellipta 1 inhal dailyalb inhaler q6h prnmonitor resp status Hypertensive disorder 38 753181 I10 BP controlled cont atenololmo nitor bp and labs Schizophrenia 60317626 F 20.1 no med changes inpt, stable at baselinemo nitor behaviors and affectmild ly paranoid on examcont home meds: gabapentin , lithium, clozapine, fluphenazi nepsych eval prn Urinary ou tflow obstruction 446365129 N13.9 good urine output, using urinalcont flomax and desmopress inmonitor UOP Type 2 mechelle betes mellitus 62323760 E11.9 very well controlled , all < 150cont glipizide 2.5 mg dailycont accuchecks tid with lispro sscont lantus 15 units qhscont metformin 1000 mg bidconside r decreasing accuchecks and possibly dc of ss Asthenia [id number] R53.1 was decondtion edmaking good gainsambul ated 100 ft x 4 yesterdayc ont PT OTclose to [facility] trying to reach out to his longterm [id number] [place] [address] 05/21/2025 12:19:18 05/25/2025 10:14:05 Asthma [id number] J45.909 h/o 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 dno acute exacon RAtrelegy ellipta 1 inhal dailyalb inhaler q6h prnmonitor resp status Hypertensive disorder 38 412892 I10 BP controlled cont atenolol 25 mg dailymonit or bp and labs Schizophrenia 32938026 F 20.1 mildly paranoid on exam but stablecont home meds: gabapentin , lithium, clozapine, fluphenazi nemonitor mood and affectpsyc h eval prndc on sat back to longterm Urinary ou tflow obstruction 683231016 N13.9 good urine output, using urinalcont flomax and desmopress inmonitor UOP Type 2 mechelle betes mellitus 73457742 E11.9 very well controlled , all < 150cont glipizide 2.5 mg dailycont lantus 15 units qhscont metformin 1000 mg bidok to il lispro ss = longterm cannot facilitate this and he is not requiring bolus insulin Asthenia [id number] R53.1 was deconditio nedmaking good gainsambul ated 100 ft x 4cont PT OTdc back to longterm on sat [id number] [address] [place] [address] 05/25/2025 11:28:50 05/27/2025 09:16:45 Asthma [id number] J45.909 no acute exacmainta in sats on [facility] trelegy ellipta 1 inhal dailycont alb inhaler q6h prnmonitor resp status Hypertensive disorder 38 995554 I10 BP controlled cont atenolol 25 mg dailymonit or bp and labs Schizophrenia 27560696 F 20.1 mildly paranoid on exam but stablecont home meds: gabapentin , lithium, clozapine, fluphenazi nemonitor mood and affectpsyc h eval prn Urinary ou tflow obstruction 131225820 N13.9 good urine output, using urinalcont flomax and desmopress inmonitor UOP Type 2 mechelle betes mellitus 68017427 E11.9 very well controlled , all < 150cont glipizide 2.5 mg dailycont lantus 15 units qhscont metformin 1000 mg bidno longer monitor blood sugars Asthenia 97185496 R53.1 was deconditio nedmaking good gainsambul ated 100 ft x 4cont PT OTgetting close to dc back to longterm this week Dyspnea on exertion 6084 5006 R06.02 noted to have increased WOB walking from bathroom to bedwhen asked he agreed he was sobhe has been weaned to RA since last weekall sats mid to high 90s on [facility] to monitor [id number] [address] [place] [address] 05/28/2025 08:13:09 05/28/2025 12:42:08 Dyspnea on exertion 75801207 R06.02 denies sobresolve d without interventi onmonitor Asthma 133057209 J45.90 9 no acute exacmainta in sats on [facility] trelegy ellipta 1 inhal dailycont alb inhaler q6h prnmonitor resp status Hypertensive disorder 38 324189 I10 BP controlled cont atenolol 25 mg dailymonit or bp and labs Type 2 mechelle betes mellitus 87341381 E11.9 very well controlled , all < 150cont glipizide 2.5 mg dailycont lantus 15 units qhscont metformin 1000 mg bidno longer monitoring blood sugars and lispro ss has been discontinu ed Asthenia 16391091 R53.1 was deconditio nedmaking good gainsambul ating with therapycon t PT OTcare plan meeting 05/26katie il back to longterm next week [id number] [address] [place] [address] 06/01/2025 07:17:54 06/01/2025 10:58:04 Dyspnea on exertion 39539498 R06.02 resolved Asthma [id number] J45.90 9 no acute exacmainta in sats on [facility] tregy ellipta 1 inhal dailycont alb inhaler q6h prnf/u with PCP Hypertensive disorder 38 002011 I10 BP controlled cont atenolol 25 mg dailymonit or bp outptf/u with PCP Type 2 mechelle betes mellitus 24296162 E11.9 very well controlled , all < 150 and ss insulin was discontinu edcont glipizide 2.5 mg dailycont lantus 15 units qhscont metformin 1000 mg bidA1C q6mos outptf/u with PCP Asthenia 94993795 R53.1 completed PT OTback to baselineil home with services Aspiration pneumonitis 717184589 J69.0 treated inptresolv ed Smoker 20063019 F17.200 on nicotine replacemen tcont smoking cessation outptf/u with PCP Schizophrenia 23248243 F 20.1 mood stable, odd affectcont home med regimen: clozapine 175mg daily / fluphenazi ne 1md daily / lithium 450mg bid / gabapentin 600mg tidmonitor mood and affect outptf/u with PCP Hypothyroidism 34306968 E03.8 cont synthroid 175 mcg dailythyro id panel outptf/u with PCP Hyperlipidemia 63876210 E78.2 cont atorvastat in 40 mg qdlipids outptf/u with PCP Benign pro static hyperplasia without outflow obstruction 908916027 N40.0 urinary without issues while herecont flomax 0.4 mg qd / desmopress in 0.1 mg qhsmonitor UOP outptf/u with PCP Acute hypo xemic respiratory failure 452872711 J96.01 dt PNAresolve d Pneumoniti s caused by inhalation of regurgitated food 569600880 J69.0 with hypoxia and resp failurecom pleted IV antbxnow resolved History of Disorder 3128 46465 Z87.898 causing PNAcont aspiration precaution s in group homecont current dietf/up with PCP for concerns Traumatic brain injury [id number] [facility] Health Concerns Section Related Observation LastModified by Organization Detai ls LastModified Time None Recorded Concern Status LastModified by Organization Details LastModified Time None Recorded Advance Directives Directive N: Payers Insurance Date Sequence Insurance Name Policy Number Policy Ochoa Covered Member ID Ochoa Member ID Guarantor Name 05/21/2025 1 [place] [employer] David Lantigua [id number] David Lantigua 05/21/2025 2 [place] [facility] David Lantigua [id number] David Lantigua Notes Date Note Type Note Provider Name and Address Organization Details Recorded Time 05/18/2025 text/html Patient is a 59 yo male being seen for acute rounding visit. Pt found down at longterm unclear length of time. On arrival to ED severely hypoxic 49% on RA but recovered with 15 L non rebreather and eventually was weaned to 3 L NC. He was found to have aspiration PNA. initially on IV rocephin and flagyl, transition to po flagyl and po ceftin. Sent to rehab on supp O2. Following up on pt today. He is now on RA sating high 90s. His labs from 05/17 are unremarkable. His BP is controlled. Blood sugars are all at goal. He has been working with therapy, hes able to ambulate. [facility] schizophrenia, TBI, dm, hld, hypothyroid, asthma, copd JOHN [address], [address], [place], [address], [facility] 05/18/2025 12:13:34 05/21/2025 text/html Patient is a 59 yo male being seen for acute rounding visit. Pt found down at longterm unclear length of time. On arrival to ED severely hypoxic 49% on RA but recovered with 15 L non rebreather and eventually was weaned to 3 L NC. He was found to have aspiration PNA. initially on IV rocephin and flagyl, transition to po flagyl and po ceftin. Sent to rehab on supp O2. Following up on pt today. He is doing well. Participating with therapy. Tentative dc back to longterm on sat. His blood sugars are controlled without use of ss lispro. [facility] schizophrenia, TBI, dm, hld, hypothyroid, asthma, copd JOHN S[address]LAND [address], [address], [place], [address], [facility] 05/21/2025 12:23:28 05/25/2025 text/html Patient is a 59 yo male being seen for acute rounding visit. Pt found down at longterm unclear length of time. On arrival to ED severely hypoxic 49% on RA but recovered with 15 L non rebreather and eventually was weaned to 3 L NC. He was found to have aspiration PNA. initially on IV rocephin and flagyl, transition to po flagyl and po ceftin. Sent to rehab on supp O2. Following up on pt today. He was in the bathroom, ambulating back to the bed with no assisting device. He complains of feeling tired and somewhat short of breath when ambulating. He denies pain. Participating with therapy. His blood sugars are controlled without use of ss lispro. [facility] schizophrenia, TBI, dm, hld, hypothyroid, asthma, copd JOHN SUTHERLAND [address], [address], [place], [address], [facility] 05/25/2025 13:12:29 05/28/2025 text/html Patient is a 59 yo male being seen for acute rounding visit. Pt found down at longterm unclear length of time. On arrival to ED severely hypoxic 49% on RA but recovered with 15 L non rebreather and eventually was weaned to 3 L NC. He was found to have aspiration PNA. initially on IV rocephin and flagyl, transition to po flagyl and po ceftin. Sent to rehab on supp O2. Seeing pt today. He has been stable. His BP is at goal. His sugars are well controlled. Labs unremarkable 05/24. He is ambulating with therapy during their sessions. Care conference meeting this week held, plan to dc back to longterm next week. Pt has no medical concerns today. He tells me hes just relaxing today, laying in bed. He is waiting for a movie to start and hes thirsty. [facility] schizophrenia, TBI, dm, hld, hypothyroid, asthma, copd JOHN S[address], [address], [place], [address], [facility] [employer] [facility] 05/28/2025 12:42:07 06/01/2025 text/html Patient is a 59 yo male being seen for discharge. Pt found down at longterm unclear length of time. On arrival to ED severely hypoxic 49% on RA but recovered with 15 L non rebreather and eventually was weaned to 3 L NC. He was found to have aspiration PNA. initially on IV rocephin and flagyl, transition to po flagyl and po ceftin. Sent to rehab on supp O2. Evaluating pt today. He is sitting in the chair checking his bank accounts . He states he is glad we are safe and he is too. He states he feels good and is ready to go home. He says he is ambulating well, has an appetitie and sleeping well. His BP is at goal. His sugars are well controlled. Labs unremarkable 05/31. He is ambulating with therapy during their sessions. No new concerns. Pt is medically clear for dc back to longterm with meds and services in place, per referral made to [facility]. [facility] schizophrenia, TBI, dm, hld, hypothyroid, asthma, copd JOHN [address], [address], [place], [address], [facility] 06/01/2025 10:58:02
--- NOTE | 2025-06-04 09:16 | ED_ITS ---
HPI - General Adult General Chief complaint: General Medical Stated complaint: TREMORS Time Seen by Provider: 06/04/25 09:15 Source: patient Mode of arrival: EMS Limitations: no limitations History of Present Illness ED Provider: Dr. Adryan Pereyra HPI narrative: 60-year-old male with a history of dysphagia, pneumonia, traumatic brain injury, schizophrenia, diabetes, acute kidney injury who was sent to the emergency department from his care facility for evaluation of shakiness/tremors. Patient states that this morning he felt like he could not stop shaking but he had no other complaints. The patient states he did not eat dinner last night. Here in the emergency department the patient's glucose was 48. Patient is awake and alert and I ordered a food tray for him. Related Data Home Medications ?Medication ?Instructions ?Recorded ?Confirmed insulin lispro 100 unit/mL See Protocol subcut TIDAC 0 03/02/24 04/29/25 subcutaneous solution (Humalog U-100 Insulin) insulin glargine 100 unit/mL 15 unit subcut BEDTIME 04/29/25 subcutaneous solution atenolol 25 mg tablet 25 mg PO DAILY 04/28/2504/11 cetirizine 5 mg tablet 5 mg PO DAILY 04/28/2504/28 levothyroxine 175 mcg tablet 175 mcg PO DAILY 04/28/25 04/28/25 clozapine 100 mg tablet 100 mg PO BID 04/29/2504/29 clozapine 25 mg tablet 75 mg PO DAILY 04/29/2504/11 Previous Rx's ?Medication ?Instructions ?Recorded albuterol sulfate 90 mcg/actuation 2 puff inhalation R Q4H PRN 03/19/24 aerosol inhaler (Ventolin HFA) Shortness Of Breath 30 days #1 inhaler atorvastatin 40 mg tablet 40 mg PO BEDTIME 30 days #30 tabs 03/19/24 desmopressin 0.2 mg tablet 0.1 mg (1/2 x 0.2 mg) PO BE DTIME 03/19/24 30 days #15 tabs docusate sodium 100 mg capsule 100 mg PO BID PRN const ipation 30 03/19/24 days #60 caps fluphenazine HCl 1 mg tablet 1 mg PO BEDTIME 30 days # 30 tabs 03/19/24 fluticasone fur. 100 mcg-umeclid 1 inh inhalation RDAI LY 30 days 03/19/24 62.5 mcg-vilant 25 mcg #60 ea inhalat.powder (Trelegy Ellipta) fluticasone propionate 50 1 spray intranasal DAILY 30 days 03/19/24 mcg/actuation nasal #1 inhaler spray,suspension (Flonase Allergy Relief) gabapentin 600 mg tablet 1 tab PO TID 30 days #90 tab s 03/19/24 glipizide 2.5 mg tablet, extended 2.5 mg PO DAILY 30 d ays #30 tabs 03/19/24 release 24 hr lidocaine 4 % topical patch 1 patch transdermal DAILY 30 days 03/19/24 (Lidocaine Pain Relief) #30 ea lithium carbonate 450 mg 450 mg PO BID 30 days #60 ta bs 03/19/24 tablet,extended release metformin 1,000 mg tablet 1 tab PO BIDWM 30 days #60 t abs 03/19/24 nicotine (polacrilex) 2 mg buccal 2 mg buccal Q2H PRN Nicotine 03/19/24 lozenge Cravings 30 days #108 ea tamsulosin 0.4 mg capsule 0.4 mg PO BEDTIME 30 days #3 0 caps 03/19/24 cefuroxime axetil 500 mg tablet 500 mg PO Q12H #4 tabs 05/05/25 metronidazole 500 mg tablet 500 mg PO Q8H #6 tabs 04/12 04/04 Allergies Allergy/AdvReac Type Severity Reaction Status Date / Time amoxicillin (AMOXICILLIN) Allergy Intermediate SKIN RASH Verified 06/04/25 08:36 egg (EGGS) Allergy Intermediate HIVES, Verified 06/04/25 08:36 VOMITING Penicillins (PENICILLINS) Allergy Intermediate SKIN RASH Verified 06/04/25 08:36 Sulfa (Sulfonamide Allergy Intermediate SKIN RASH Verified 06/04/25 08:36 Antibiotics) (SULFA (SULFONAMIDE ANTIBIOTICS)) trimethoprim (TRIMETHOPRIM) Allergy Intermediate SKIN RASH Verified 06/04/25 08:36 penicillin V Allergy Unknown Unknown Verified 06/04/25 08:36 haloperidol (From Haldol) Allergy Unknown Verified 06/04/25 08:36 methylprednisolone (From Allergy Unknown Verified 06/04/25 08:36 Solu-Medrol) penicillin Allergy Unknown Unknown Uncoded 06/04/25 08:36 sultamicillin Allergy Unknown Unknown Uncoded 06/04/25 08:36 trimethoprim Allergy Unknown Unknown Uncoded 06/04/25 08:36 Review of Systems 2 Review of Systems: Yes all other systems are reviewed and are negative FORMERLY [facility], [facility] Past Medical History Medical History Fall Encounter for staple removal Routine medical exam Hypothyroidism Diabetes mellitus type 2 in nonobese Hyperlipidemia Personal history of nicotine dependence Rash Loculated pleural effusion (~10/2020) Asbestos-induced pleural plaque Traumatic brain injury Schizophrenia HTN (hypertension) COPD (chronic obstructive pulmonary disease) Asthma Surgical History Status post small bowel resection Social History Social History Household Members: Other Household Members Other:: fpc Housing: Other Housing Other:: fpc Do you presently have visiting nurse or other home services: Yes Alcohol intake: never Comment: Previously charted. Patient Tobacco Use Status: Current everyday Tobacco user Tobacco use type: Cigarette Cigarette Packs Per Day: 1 Cigarettes Per Day: 20.0 Years Smoked: 40 e-Cigarette/Vaping Use: Currently Using Second Hand Smoke Exposure: Yes Substance Use Type: Marijuana Advance Directives: Yes Advance Directives Information Provided: Yes Advance Directives on File: No Do you have a plan to hurt others: No Plan service: No Current occupational status: disabled Sexual orientation: Unable to collect Physical Exam ED Vital Signs: Vital Signs - 24 hr 06/04/25 08:28 06/04/25 10:00 06/04/25 11:14 Temperature 98.5 F 98.5 F 98.3 F Pulse Rate 87 99 88 Respiratory Rate 15 16 22 H Blood Pressure 146/57 H 138/61 122/63 Pulse Oximetry 98 98 93 Oxygen Delivery Method Room Air Room Air Room Air 06/04/25 12:42 Temperature 98.9 F Pulse Rate 84 Respiratory Rate 17 Blood Pressure 133/60 Pulse Oximetry 92 Oxygen Delivery Method Room Air BMI result Body Mass Index 20.8 Vital signs revealed an elevated blood pressure of 146/57 otherwise unremarkable Exam: General: Awake, alert in no distress, answers questions appropriate Head: Normocephalic, atraumatic EENT: PERRL, Lids normal, sclera normal, conjunctiva normal, nose normal , ears normal, throat without erythema or exudates Neck: Supple, no adenopathy Lung: breath sounds symmetric, no wheezing, rales or rhonchi Chest: symmetric movement, nontender Heart: regular rate and rhythm, normal S1, S2 no murmurs or rubs Abdomen: soft, non-tender, nondistended, normal bowel sounds Back: no vertebral tenderness, no CVAT Extremities: no deformities, moves all extremities symmetrically, tremor of upper extremities Neuro: Awake, alert, oriented, normal speech, cranial nerves intact, moves all extremities symmetrically Psych: Pleasant, cooperative Medical Decision Making Medical Decision Making [facility] Narrative: 60-year-old male with a history of dysphagia, pneumonia, traumatic brain injury, schizophrenia, diabetes, acute kidney injury who was sent to the emergency department from his care facility for evaluation of shakiness/tremors. Patient states that this morning he felt like he could not stop shaking but he had no other complaints. The patient states he did not eat dinner last night. Here in the emergency department the patient's glucose was 48. Patient is awake and alert and I ordered a food tray for him. Vital signs revealed an elevated blood pressure of 146/57 otherwise unremarkable. Patient is awake, answers questions appropriately, has tremors of his upper extremities. Differential diagnosis: ?Includes but is not limited to essential tremor, Parkinson's disease, anemia, electrolyte abnormalities, lithium toxicity,, viral syndrome Course: 16:07 My independent interpretation patient's laboratory evaluation as follows: WBC elevated 13,000. Low H&H 11 and 37.7. Glucose low 48. BUN and creatinine were normal 9 and 0.64. [place] was therapeutic at 0.96. COVID-19, influenza and RSV were negative. Patient did have a low glucose most likely secondary to poor calorie intake since he missed dinner yesterday. Patient was given food to eat here in the emergency department . Patient's point of care glucose has improved with no further episodes of hypoglycemia. Patient will be discharged back to his care facility. Admission/Observation Consideration of admission/observation: Escalation of care including admission/observation considered (Yes) Lab Data [facility] Lab Attestation statement: I reviewed the patient's lab results. 06/04/25 08:49 06/04/25 08:49 Labs: Lab Results 06/04/25 06/04/25 06/04/25 Range/Units 08:37 08:49 09:13 WBC 13.0 H (4.8-10.8) X10*3/uL RBC 4.43 L (4.60-5.80) X10*6/uL Hgb 11.1 L (14.0-18.0) g/dl Hct 37.7 L (42.0-52.0) % MCV 85.1 (80.0-98.0) fL MCH 25.1 L (27.0-33.0) pg MCHC 29.4 L (31.0-36.0) g/dl RDW 19.4 H (11.0-16.0) % Plt Count 298 (160-400) X10*3/uL MPV 9.1 L (9.4-12.4) fL Immature Gran % (Auto) 0.6 H (0.0-0.4) % Neut % (Auto) 78.5 H (45-73) % Lymph % (Auto) 15.0 L (20-40) % [place]clean % (Auto) 5.3 (2-11) % Eos % (Auto) 0.2 (0-4) % Baso % (Auto) 0.4 (0-2) % Lymph # (Auto) 2.0 (1.2-4.9) X10*3/uL [place]clean # (Auto) 0.7 (0.1-1.2) X10*3/uL Eos # (Auto) 0.0 (0.0-0.4) X10*3/uL Baso # (Auto) 0.1 (0.0-0.2) X10*3/uL Abs Immat Gran (auto) 0.08 H (0.00-0.03) X10*3/uL Absolute Neuts (auto) 10.2 H (2.0-8.3) x10*3/uL Absolute Nucleated RBC 0.000 (0.0-0.012) X10*3/uL Nucleated RBC % (auto) 0.0 (0.0-0.2) /100WBC Sodium 142 (135-145) mmol/L Potassium 4.2 (3.3-5.1) mmol/L Chloride 106 (96-108) mmol/L Carbon Dioxide 29 (22-29) mmol/L Anion Gap 11 L (12-20) BUN 9 (9-16) mg/dL Creatinine 0.64 (0.5-1.4) mg/dL Estim Creat Clear Calc 117.5 Estimated GFR > 60 POC Glucose 48 L* 69 (60-115) mg/dL Random Glucose 48 L* (60-115) mg/dL Calcium 9.7 (8.4-10.2) mg/dL [place] 0.96 (0.60-1.20) mmol/L Influenza Type A (PCR) NEGATIVE (Negative) Influenza Type B (PCR) NEGATIVE (Negative) RSV RNA Qual (PCR) NEGATIVE (Negative) SARS-CoV-2 RNA (RT-PCR) NEGATIVE (Negative) 06/04/25 06/04/25 Range/Units 10:04 12:31 WBC (4.8-10.8) X10*3/uL RBC (4.60-5.80) X10*6/uL Hgb (14.0-18.0) g/dl Hct (42.0-52.0) % MCV (80.0-98.0) fL MCH (27.0-33.0) pg MCHC (31.0-36.0) g/dl RDW (11.0-16.0) % Plt Count (160-400) X10*3/uL MPV (9.4-12.4) fL Immature Gran % (Auto) (0.0-0.4) % Neut % (Auto) (45-73) % Lymph % (Auto) (20-40) % Mclean % (Auto) (2-11) % Eos % (Auto) (0-4) % Baso % (Auto) (0-2) % Lymph # (Auto) (1.2-4.9) X10*3/uL [place]clean # (Auto) (0.1-1.2) X10*3/uL Eos # (Auto) (0.0-0.4) X10*3/uL Baso # (Auto) (0.0-0.2) X10*3/uL Abs Immat Gran (auto) (0.00-0.03) X10*3/uL Absolute Neuts (auto) (2.0-8.3) x10*3/uL Absolute Nucleated RBC (0.0-0.012) X10*3/uL Nucleated RBC % (auto) (0.0-0.2) /100WBC Sodium (135-145) mmol/L Potassium (3.3-5.1) mmol/L Chloride (96-108) mmol/L Carbon Dioxide (22-29) mmol/L Anion Gap (12-20) BUN (9-16) mg/dL Creatinine (0.5-1.4) mg/dL Estim Creat Clear Calc Estimated GFR POC Glucose 142 H 105 (60-115) mg/dL Random Glucose (60-115) mg/dL Calcium (8.4-10.2) mg/dL [place] (0.60-1.20) mmol/L Influenza Type A (PCR) (Negative) Influenza Type B (PCR) (Negative) RSV RNA Qual (PCR) (Negative) SARS-CoV-2 RNA (RT-PCR) (Negative) External Record Review External record reviewed: Inpatient record (04/28/2025 admission) Chronic Conditions Patient?s care impacted by: Diabetes and Other (Traumatic brain injury) Discharge Plan Discharge Clinical Impression: Hypoglycemia, Tremors of nervous system Patient Disposition: Xfer [facility] Instructions: Hypoglycemia in a Person with Diabetes (ED) Additional Instructions: Your serum blood sugar was low at 48. Your blood work was otherwise unremarkable and consistent with the your baseline labs. You were given food to eat and we trended your blood sugar and you had no further episodes of low blood sugars which is reassuring. I suspect that your low blood sugar this morning was secondary to not eating enough food yesterday. Continue taking your medications as prescribed by your providers. Follow-up with your doctor in 2 days. Please return to the emergency department if your symptoms get worse or if you develop any symptoms that are concerning to you. Prescriptions: No Action insulin lispro [Humalog U-100 Insulin] 100 unit/mL solution See Protocol subcut TIDA Protocol: Insulin Correction Scale Less than or equal to 110 ---- Give (units): 0 111 to 150 Give (units): 0 151 to 200 Give (units): 2 201 to 250 Give (units): 6 251 to 300 Give (units): 8 301 to 350 Give (units): 10 Greater than 350 Give (units): 12 Call MD if Blood Glucose > : 350 albuterol sulfate [Ventolin HFA] 90 mcg/actuation Hfa Aerosol Inhaler 2 puff inhalation RQ4H PRN (Reason: Shortness Of Breath) 30 Days Qty: 1 0RF nicotine (polacrilex) 2 mg Lozenge 2 mg buccal Q2H PRN (Reason: Nicotine Cravings) 30 Days Qty: 108 0RF desmopressin 0.2 mg Tablet 0.1 mg PO BEDTIME 30 Days Qty: 15 0RF tamsulosin 0.4 mg Capsule 0.4 mg PO BEDTIME 30 Days Qty: 30 0RF glipizide 2.5 mg Tablet Extended Release 24hr 2.5 mg PO DAILY 30 Days Qty: 30 0RF Trelegy Ellipta 100-62.5-25 mcg Blister With Device 1 inh inhalation RDAILY 30 Days Qty: 60 0RF lidocaine [Lidocaine Pain Relief] 4 % Adhesive Patch,Medicated 1 patch transdermal DAILY 30 Days Qty: 30 0RF Protocol: Apply to: Apply to: left shoulder area docusate sodium 100 mg Capsule 100 mg PO BID PRN (Reason: constipation) 30 Days Qty: 60 0RF atorvastatin 40 mg tablet 40 mg PO BEDTIME 30 Days Qty: 30 0RF gabapentin 600 mg tablet 1 tab PO TID 30 Days Qty: 90 0RF lithium carbonate 450 mg tablet extended release 450 mg PO BID 30 Days Qty: 60 0RF fluphenazine HCl 1 mg tablet 1 mg PO BEDTIME 30 Days Qty: 30 0RF metformin 1,000 mg tablet 1 tab PO BIDWM 30 Days Qty: 60 0RF fluticasone propionate [Flonase Allergy Relief] 50 mcg/actuation [place],Suspension 1 spray INTRANASAL DAILY 30 Days Qty: 1 0RF Rx Instructions: administer into each nostril cetirizine 5 mg tablet 5 mg PO DAILY atenolol 25 mg Tablet 25 mg PO DAILY levothyroxine 175 mcg tablet 175 mcg PO DAILY clozapine 100 mg Tablet 100 mg PO BID Rx Instructions: per fpc patient takes 175 mg in the morning and 100 mg bedtime. Last dose 04/28/25 in AM clozapine 25 mg Tablet 75 mg PO DAILY Rx Instructions: per fpc patient takes 175 mg in the morning and 100 mg bedtime. Last dose 04/28/25 in AM metronidazole 500 mg Tablet 500 mg PO Q8H Qty: 6 0RF cefuroxime axetil 500 mg Tablet 500 mg PO Q12H Qty: 4 0RF insulin glargine 100 unit/mL Solution 15 unit SUBCUT BEDTIME Print Language: Thai
[2025-06-04 09:18] LABS: Glucose, Whole Blood 69 mg/dL (60-115)
[2025-06-04 09:36] LABS: Resp Syncy Virus RNA Qual PCR NEGATIVE (Negative); SARS COV2 PCR INHOUSE NEGATIVE (Negative)
--- NOTE | 2025-06-04 09:36 | PC.NURSE ---
pt eating breakfast, md states po food is sufficient at this time, pt alert with tremors, did not eat dinner last night
[2025-06-04 10:07] LABS: Glucose, Whole Blood 142 mg/dL (60-115)
[2025-06-04 12:34] LABS: Glucose, Whole Blood 105 mg/dL (60-115)
--- NOTE | 2025-06-04 17:06 | PC.NURSE ---
Report given to Sin Howell staff member @ [facility].
== END 2025-06-04 19:06 ==
PROVIDERS: Emergency Provider Emergency Medicine Emergency Medical Services
DX: R25.1 Tremor, unspecified (principal); E11.65 Type 2 diabetes mellitus with hyperglycemia; F17.210 Nicotine dependence, cigarettes, uncomplicated; Z79.4 Long term (current) use of insulin; Z79.899 Other long term (current) drug therapy; Z03.818 Encounter for observation for suspected exposure to other biological agents ruled out
CPT/HCPCS: 36415; 80048; 80178; 82947; 85025; 87637; 99283; 99284

== ENCOUNTER 2025-06-05 08:34 | Emergency (ER) | payer MEDICARE, MEDICAID, SELFPAY ==
[2025-06-05] VITALS (11 sets, daily range): BP systolic 95–123; BP diastolic 26–69; PULSE 63–77; RESP 18–24; TEMP 36.4–37.1; O2SAT 94–97; BMI 19.3
--- NOTE | ~2025-06-05 | XR_ITS ---
CLINICAL HISTORY: weakness, cough, hx of aspiration 1 view chest x-ray Comparison: CT/SR - CT ANGIO CHEST PE PROTOCOL - 04/29/25 06:20 EDT CR/SR - XR CHEST 1V - 04/28/25 15:43 EDT Findings: The lungs are clear. Lungs appear mildly hyperinflated. No dense consolidation. Scattered areas of irregular density consistent with pleural plaques seen on the patient's prior CT. Heart size is stable. Chronic scarring of the costophrenic angles. No significant effusion. No acute osseous findings. IMPRESSION: 1. No acute findings. Chronic changes This document has been electronically signed by: Lis Gabriel MD on 06/05/2025 09:22:46
--- NOTE | ~2025-06-05 | CT_ITS ---
CLINICAL HISTORY: confused, FTT, hypotension, TBI unclear source CT abdomen and pelvis with contrast Comparison: CT - CT ABDOMEN PELVIS W IV CON - 06/05/25 10:[address]/REG/DC/SR - CT ABDOMEN PELVIS W IV CON - 02/15/24 14:[address] - CT ABDOMEN PELVIS WITH IV CONTRAST - 02/15/24 14:08 EDT Findings: Pleural calcifications and parenchymal scarring are noted at both lung bases. There is persistent mild intrahepatic biliary ductal dilatation. There is no obstructing mass or calculus noted. The gallbladder is unremarkable. The liver is otherwise normal. There is pancreatic atrophy. There may be a tiny nonobstructing calculus in the midpole of the right kidney. The rest of the solid organs are normal. Postoperative changes are seen related to the small bowel in the right lower abdomen. There is a relatively large stool burden suggesting constipation. There are moderate to severe calcific atherosclerotic changes of the abdominal aorta and iliac arteries. Pelvic contents unremarkable. Normal appendix. The bones are intact. The rest of the GI tract is unremarkable. IMPRESSION: 1. Relatively large stool burden suggests constipation. 2. Other chronic findings as above. This document has been electronically signed by: Jelani Fam MD on 06/05/2025 13:05:11
[2025-06-05 08:49] LABS: Glucose, Whole Blood 186 mg/dL (60-115)
--- NOTE | 2025-06-05 08:55 | ED_ITS ---
HPI - Weakness General Chief complaint: Altered Mental Status Stated complaint: WOKE UP ALTERED/SHAKEY,SEEN T-1 FOR LOW BS,BS 154 Time Seen by Provider: 06/05/25 08:39 Source: patient and old records reviewed Mode of arrival: ambulatory Limitations: no limitations History of Present Illness ED Provider: ROBERTA HPI Narrative: 60 yo male with PMH of TBI, pneumonia, schizophrenia, hypothyroidism, DM2 he is on glipizide/insulin, dysphagia here with c/o again shaking this AM not feeling well. His blood sugar was normal. He reports dysuria. He states no pain anywhere else, EMS noted low BPs in the 90s. He denies falls, chest pain, dyspnea. He states he felt this way yesterday - though his BS was 48 yesterday AM and fed/monitored in ED sent back to correction this occurred after not eating his dinner. He is living at a correction. He has no abdominal pain. No known fevers. MD Complaint: generalized weakness (feeling shaky this AM) Onset (ago): hour(s) (1) Duration: intermittent Location: generalized Migration: none Severity: mild Relieving factors: rest Exacerbating factors: none Context: other Associated symptoms: dysuria Related Data Home Medications ?Medication ?Instructions ?Recorded ?Confirmed insulin lispro 100 unit/mL See Protocol subcut TIDAC 0 03/02/24 04/29/25 subcutaneous solution (Humalog U-100 Insulin) insulin glargine 100 unit/mL 15 unit subcut BEDTIME 04/29/25 subcutaneous solution atenolol 25 mg tablet 25 mg PO DAILY 04/28/2504/11 cetirizine 5 mg tablet 5 mg PO DAILY 04/28/2504/28 levothyroxine 175 mcg tablet 175 mcg PO DAILY 04/28/25 04/28/25 clozapine 100 mg tablet 100 mg PO BID 04/29/2504/29 clozapine 25 mg tablet 75 mg PO DAILY 04/29/2504/11 Previous Rx's ?Medication ?Instructions ?Recorded albuterol sulfate 90 mcg/actuation 2 puff inhalation R Q4H PRN 03/19/24 aerosol inhaler (Ventolin HFA) Shortness Of Breath 30 days #1 inhaler atorvastatin 40 mg tablet 40 mg PO BEDTIME 30 days #30 tabs 03/19/24 desmopressin 0.2 mg tablet 0.1 mg (1/2 x 0.2 mg) PO BE DTIME 03/19/24 30 days #15 tabs docusate sodium 100 mg capsule 100 mg PO BID PRN const ipation 30 03/19/24 days #60 caps fluphenazine HCl 1 mg tablet 1 mg PO BEDTIME 30 days # 30 tabs 03/19/24 fluticasone fur. 100 mcg-umeclid 1 inh inhalation RDAI LY 30 days 03/19/24 62.5 mcg-vilant 25 mcg #60 ea inhalat.powder (Trelegy Ellipta) fluticasone propionate 50 1 spray intranasal DAILY 30 days 03/19/24 mcg/actuation nasal #1 inhaler spray,suspension (Flonase Allergy Relief) gabapentin 600 mg tablet 1 tab PO TID 30 days #90 tab s 03/19/24 glipizide 2.5 mg tablet, extended 2.5 mg PO DAILY 30 d ays #30 tabs 03/19/24 release 24 hr lidocaine 4 % topical patch 1 patch transdermal DAILY 30 days 03/19/24 (Lidocaine Pain Relief) #30 ea lithium carbonate 450 mg 450 mg PO BID 30 days #60 ta bs 03/19/24 tablet,extended release metformin 1,000 mg tablet 1 tab PO BIDWM 30 days #60 t abs 03/19/24 nicotine (polacrilex) 2 mg buccal 2 mg buccal Q2H PRN Nicotine 03/19/24 lozenge Cravings 30 days #108 ea tamsulosin 0.4 mg capsule 0.4 mg PO BEDTIME 30 days #3 0 caps 03/19/24 cefuroxime axetil 500 mg tablet 500 mg PO Q12H #4 tabs 05/05/25 metronidazole 500 mg tablet 500 mg PO Q8H #6 tabs 04/12 04/04 Allergies Allergy/AdvReac Type Severity Reaction Status Date / Time amoxicillin (AMOXICILLIN) Allergy Intermediate SKIN RASH Verified 06/05/25 08:49 egg (EGGS) Allergy Intermediate HIVES, Verified 06/05/25 08:49 VOMITING Penicillins (PENICILLINS) Allergy Intermediate SKIN RASH Verified 06/05/25 08:49 Sulfa (Sulfonamide Allergy Intermediate SKIN RASH Verified 06/05/25 08:49 Antibiotics) (SULFA (SULFONAMIDE ANTIBIOTICS)) trimethoprim (TRIMETHOPRIM) Allergy Intermediate SKIN RASH Verified 06/05/25 08:49 penicillin V Allergy Unknown Unknown Verified 06/05/25 08:49 haloperidol (From Haldol) Allergy Unknown Verified 06/05/25 08:49 methylprednisolone (From Allergy Unknown Verified 06/05/25 08:49 Solu-Medrol) penicillin Allergy Unknown Unknown Uncoded 06/04/25 08:36 sultamicillin Allergy Unknown Unknown Uncoded 06/04/25 08:36 trimethoprim Allergy Unknown Unknown Uncoded 06/04/25 08:36 Review of Systems 2 Review of Systems: ROS unable to be obtained due to TBI [facility] Past Medical History Attestation statement: The following information was validated with the patient. Source: old records reviewed Medical History Fall Encounter for staple removal Routine medical exam Hypothyroidism Diabetes mellitus type 2 in nonobese Hyperlipidemia Personal history of nicotine dependence Rash Loculated pleural effusion (~10/2020) Asbestos-induced pleural plaque Traumatic brain injury Schizophrenia HTN (hypertension) COPD (chronic obstructive pulmonary disease) Asthma Surgical History Status post small bowel resection Social History Social History Household Members: Other Household Members Other:: correction Housing: Other Housing Other:: correction Do you presently have visiting nurse or other home services: Yes Alcohol intake: never Comment: Previously charted. Patient Tobacco Use Status: Current everyday Tobacco user Tobacco use type: Cigarette Cigarette Packs Per Day: 1 Cigarettes Per Day: 20.0 Years Smoked: 40 Smoked in Last 30 Days: No e-Cigarette/Vaping Use: Currently Using Second Hand Smoke Exposure: Yes Use of substances other than those prescribed or required for medical reasons: No Substance Use Type: Marijuana Advance Directives: No Advance Directives Information Provided: Yes Do you have a plan to hurt others: No Plan service: No Current occupational status: disabled Sexual orientation: Unable to collect Physical Exam 2 Vital Signs: Vital Signs: Last Vital Signs Temp 97.6 F 06/05/25 12:56 Pulse 63 06/05/25 12:56 Resp 18 06/05/25 12:56 BP 123/58 L 06/05/25 12:56 Pulse Ox 94 06/05/25 12:56 O2 Del Method Room Air 06/05/25 12:56 BMI result Body Mass Index 19.3 Appearance: Alert. Oriented to self but pleasant and calm. No acute distress. Eyes: Pupils equal, round and reactive to light. ENT: Pharynx normal. Neck: Normal inspection. Neck supple. CVS: Normal heart rate and rhythm. Pulses normal. Respiratory: No respiratory distress. Breath sounds diminished R base Abdomen: Soft and nontender. Skin: Skin warm and dry. Normal skin color. Normal skin turgor. Extremities: No lower extremity edema. Neuro: Oriented X 1. No motor deficit. No sensory deficit. CN2-12 intact Course Course Course Narrative: no source at this time given repeat visit and cognitive impairment CT scan of abdomen to rule out infection ordered Reevaluation(s) Reevaluation #1: suspect BP of 110/26 in error patient on side, rechecked 120s/50s Medications Administered Discontinued Medications Generic Name Dose Route Start Last Admin Trade Name Freq PRN Reason Stop Dose Admin Ceftriaxone Sodium 1 gm 06/05/25 08:51 06/05/25 09:18 Ceftriaxone Sodium 1 Gm Vial IVPUSH 06/05/25 08:52 1 gm ONCE ONE Administration Lactated Ringer's 2,046 mls @ 2,046 mls/hr 06/05/25 08:51 06/05/25 10:24 Lr 30 ml/kg infuse over 1 hr (2046 ml) 06/05/25 09:50 Infused IV Infusion .Q1H ONE Iohexol 100 ml 06/05/25 11:13 06/05/25 11:13 Iohexol 350 Mg/Ml 100 Ml Infus..Btl IV 06/05/25 11:14 85 ml ONCE ONE Administration Medical Decision Making Medical Decision Making [facility] Narrative: 60 yo male with PMH of TBI, pneumonia, schizophrenia, hypothyroidism, DM2 he is on glipizide/insulin, dysphagia here with c/o not feeling well and shaky. He c/o dysuria but no other complaints. His blood sugar is normal today. He will get IVF x 30cc/kg bolus, labs, lactic acid, cultures, CXR for aspiration and UA - start on ceftriaxone as well prior E. Coli sanchez sensitive UTI in past. Differential Diagnosis Differential Diagnoses: The differential diagnosis associated with the presentation includes UTI, hypovolemia, PHILIP, anemia, aspiration, hypoglycemia, FTT Admission/Observation Consideration of admission/observation: Escalation of care including admission/observation considered eating looks better negative CXR negative CT scan no UTI can be sent back to correction Lab Data MDM Lab Attestation statement: I reviewed the patient's lab results. 06/05/25 09:06 06/05/25 09:06 Labs: Lab Results 06/05/25 06/05/25 06/05/25 Range/Units 08:45 09:06 10:15 WBC 10.8 (4.8-10.8) X10*3/uL RBC 4.41 L (4.60-5.80) X10*6/uL Hgb 11.1 L (14.0-18.0) g/dl Hct 36.5 L (42.0-52.0) % MCV 82.8 (80.0-98.0) fL MCH 25.2 L (27.0-33.0) pg MCHC 30.4 L (31.0-36.0) g/dl RDW 19.2 H (11.0-16.0) % Plt Count 308 (160-400) X10*3/uL MPV 9.2 L (9.4-12.4) fL Immature Gran % (Auto) 0.4 (0.0-0.4) % Neut % (Auto) 78.9 H (45-73) % Lymph % (Auto) 14.7 L (20-40) % [place] % (Auto) 5.4 (2-11) % Eos % (Auto) 0.1 (0-4) % Baso % (Auto) 0.5 (0-2) % Lymph # (Auto) 1.6 (1.2-4.9) X10*3/uL [place] # (Auto) 0.6 (0.1-1.2) X10*3/uL Eos # (Auto) 0.0 (0.0-0.4) X10*3/uL Baso # (Auto) 0.1 (0.0-0.2) X10*3/uL Abs Immat Gran (auto) 0.04 H (0.00-0.03) X10*3/uL Absolute Neuts (auto) 8.5 H (2.0-8.3) x10*3/uL Absolute Nucleated RBC 0.000 (0.0-0.012) X10*3/uL Nucleated RBC % (auto) 0.0 (0.0-0.2) /100WBC Sodium 140 (135-145) mmol/L Potassium 4.0 (3.3-5.1) mmol/L Chloride 108 (96-108) mmol/L Carbon Dioxide 26 (22-29) mmol/L Anion Gap 10 L (12-20) BUN 8 L (9-16) mg/dL Creatinine 0.60 (0.5-1.4) mg/dL Estim Creat Clear Calc 126.2 Estimated GFR > 60 POC Glucose 186 H (60-115) mg/dL Random Glucose 197 H (60-115) mg/dL Lactic Acid 1.2 (0.5-2.0) mmol/L Calcium 9.1 D (8.4-10.2) mg/dL Magnesium 1.8 (1.6-2.6) mg/dL Total Bilirubin 0.5 (0.0-1.0) mg/dL Direct Bilirubin 0.2 (0.0-0.5) mg/dL AST 14 (5-37) U/L ALT < 6 (0-40) U/L Alkaline Phosphatase 85 (39-117) U/L C-Reactive Protein 3.22 H (< or = 0.50) mg/dL Total Protein 6.4 L (6.5-8.0) g/dL Albumin 3.6 (3.5-5.0) g/dL Procalcitonin 0.05 ng/mL TSH 4.32 H (0.32-4.0) uIU/mL Free T4 1.17 (0.71-1.85) ng/dL Urine Color Yellow Urine Appearance Clear Urine pH 7.5 (5.0-9.0) Ur Specific [place] 1.010 (1.005-1.025) Urine Protein Negative (Neg-Trace) mg/dL Urine Glucose (UA) Negative (Negative) mg/dL Urine Ketones Trace (Negative) mg/dL Urine Blood Negative (Negative) Urine Nitrite Negative (Negative) Ur Leukocyte Esterase Trace H (Negative) Urine RBC 0-2 (0-2) /HPF Urine WBC 0-5 (0-5) /HPF Ur Squamous Epith Cells 0-2 (0-2) /HPF Urine Bacteria None Seen (None Seen) Hyaline Casts 0-2 (0-2) /LPF [place] 0.63 (0.60-1.20) mmol/L Independent Interpretation I performed an independent interpretation of an: EKG, Plain X-Ray (no aspiration) and CT Scan (constipation) Interpretation: Rate: 70 Rhythm: NSR [place]: normal Normal P waves. Normal CASIE. Normal QRS complex. ST T wave : normal no SAM, flat t wave aVL qTC: 416 prior studies: unchanged from prior The study has been interpreted contemporaneously by me. . Radiology Impression Discussion of test interpretation with radiology: I have reviewed the radiologist's reading. Independent Historian Clinical information obtained from an independent historian. History obtained from or confirmed by: EMS External Record Review External record reviewed: Inpatient record and Outpatient record Prescription Management I considered prescription management with: Other Discharge Plan Discharge Clinical Impression: Weakness Patient Disposition: Home, Self-Care Instructions: Weakness (ED) Additional Instructions: labs reassuring no pneumonia, no urinary tract infection no acute abdominal infection - does have some constipation given IVF here, has eaten while here, blood sugar remained stable STOP HIS GLIPIZIDE AND METFORMIN, okay to use insulin Prescriptions: No Action insulin lispro [Humalog U-100 Insulin] 100 unit/mL solution See Protocol subcut TIDAC Protocol: Insulin Correction Scale Less than or equal to 110 ---- Give (units): 0 111 to 150 Give (units): 0 151 to 200 Give (units): 2 201 to 250 Give (units): 6 251 to 300 Give (units): 8 301 to 350 Give (units): 10 Greater than 350 Give (units): 12 Call MD if Blood Glucose > : 350 albuterol sulfate [Ventolin HFA] 90 mcg/actuation Hfa Aerosol Inhaler 2 puff inhalation RQ4H PRN (Reason: Shortness Of Breath) 30 Days Qty: 1 0RF nicotine (polacrilex) 2 mg Lozenge 2 mg buccal Q2H PRN (Reason: Nicotine Cravings) 30 Days Qty: 108 0RF desmopressin 0.2 mg Tablet 0.1 mg PO BEDTIME 30 Days Qty: 15 0RF tamsulosin 0.4 mg Capsule 0.4 mg PO BEDTIME 30 Days Qty: 30 0RF glipizide 2.5 mg Tablet Extended Release 24hr 2.5 mg PO DAILY 30 Days Qty: 30 0RF Trelegy Ellipta 100-62.5-25 mcg Blister With Device 1 inh inhalation RDAILY 30 Days Qty: 60 0RF lidocaine [Lidocaine Pain Relief] 4 % Adhesive Patch,Medicated 1 patch transdermal DAILY 30 Days Qty: 30 0RF Protocol: Apply to: Apply to: left shoulder area docusate sodium 100 mg Capsule 100 mg PO BID PRN (Reason: constipation) 30 Days Qty: 60 0RF atorvastatin 40 mg tablet 40 mg PO BEDTIME 30 Days Qty: 30 0RF gabapentin 600 mg tablet 1 tab PO TID 30 Days Qty: 90 0RF lithium carbonate 450 mg tablet extended release 450 mg PO BID 30 Days Qty: 60 0RF fluphenazine HCl 1 mg tablet 1 mg PO BEDTIME 30 Days Qty: 30 0RF metformin 1,000 mg tablet 1 tab PO BIDWM 30 Days Qty: 60 0RF fluticasone propionate [Flonase Allergy Relief] 50 mcg/actuation [place],Suspension 1 spray INTRANASAL DAILY 30 Days Qty: 1 0RF Rx Instructions: administer into each nostril cetirizine 5 mg tablet 5 mg PO DAILY atenolol 25 mg Tablet 25 mg PO DAILY levothyroxine 175 mcg tablet 175 mcg PO DAILY clozapine 100 mg Tablet 100 mg PO BID Rx Instructions: per correction patient takes 175 mg in the morning and 100 mg bedtime. Last dose 04/28/25 in AM clozapine 25 mg Tablet 75 mg PO DAILY Rx Instructions: per correction patient takes 175 mg in the morning and 100 mg bedtime. Last dose 04/28/25 in AM metronidazole 500 mg Tablet 500 mg PO Q8H Qty: 6 0RF cefuroxime axetil 500 mg Tablet 500 mg PO Q12H Qty: 4 0RF insulin glargine 100 unit/mL Solution 15 unit SUBCUT BEDTIME Referrals: Ginger Fulton MD [Primary Care Provider, Internal Medicine] Print Language: Vietnamese
[2025-06-05 09:11] LABS: Hematocrit 36.5 % (42.0-52.0); Hemoglobin 11.1 g/dl (14.0-18.0); Imm Gran Abs Auto 0.04 X10*3/uL (0.00-0.03); Imm Gran Pct Auto 0.4 % (0.0-0.4); Lymphocytes Absolute Auto 1.6 X10*3/uL (1.2-4.9); MANUAL DIFF FLAG NO; Mean Corpuscular HGB Conc 30.4 g/dl (31.0-36.0); Mean Corpuscular Hemoglobin 25.2 pg (27.0-33.0); Mean Corpuscular Volume 82.8 fL (80.0-98.0); NRBC Abs Auto 0.000 X10*3/uL (0.0-0.012); NRBC Pct Auto 0.0 /100WBC (0.0-0.2); Platelet Count 308 X10*3/uL (160-400); Red Blood Count 4.41 X10*6/uL (4.60-5.80); White Blood Count 10.8 X10*3/uL (4.8-10.8)
--- NOTE | 2025-06-05 09:21 | ECG_ITS ---
Test Reason : WEAKNESS Blood Pressure : */* mmHG Vent. Rate : 70 BPM Atrial Rate : 70 BPM P-R Int : 158 ms QRS Dur : 92 ms QT Int : 386 ms P-R-T Axes : 64 27 68 degrees QTcB Int : 416 ms Normal sinus rhythm Normal ECG When compared with ECG of 28-Apr-2025 15:03, No significant change was found Referred By: Belkis Pinzon Electronically Signed By: Severo Sim
[2025-06-05] MEDS: LACTATED RINGERS 2046 ML IV (09:24)
[2025-06-05 09:39] LABS: Lithium 0.63 mmol/L (0.60-1.20)
[2025-06-05 09:46] LABS: Alanine Aminotransferase < 6 U/L (0-40); Albumin Level 3.6 g/dL (3.5-5.0); Alkaline Phosphatase 85 U/L (39-117); Anion Gap 10 (12-20); Aspartate Amino Transferase 14 U/L (5-37); Blood Urea Nitrogen 8 mg/dL (9-16); Calcium 9.1 mg/dL (8.4-10.2); Carbon Dioxide 26 mmol/L (22-29); Chloride 108 mmol/L (96-108); Creatinine Clr Calc Pharmacy 126.2; Estimated Glomerular Filt Rate > 60; Magnesium 1.8 mg/dL (1.6-2.6); Potassium 4.0 mmol/L (3.3-5.1); Sodium 140 mmol/L (135-145); Total Protein 6.4 g/dL (6.5-8.0)
--- OUTSIDE RECORDS SUMMARY | 2025-06-05 09:58 | XMS_ITS | Encounter Summary ---
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 Name Role Phone Ginger Pate MD Primary Care Provider Encounter Details Date Type Department Care Team (Late st Contact Info) Description 02/02/2025 Lab Requisition [facility] Lab [address] [place] [address] Michelle Erwin MD [address] [place] [address] Other intermission coordinator (current) drug therapy Social History Tobacco Use [...] DIFFERENTIAL Routine 02/02/2025 10:58 AM EDT Other fpc (current) drug therapy CBC AND DIFFERENTIAL Routine 02/02/2025 10:58 AM EDT Other fpc (current) drug therapy documented in this encounter Results * (ABNORMAL) CBC auto differential (02/02/2025 10:58 AM EDT) [facility] WBC 9.1 4.8 - 10.8 K/mcL LAB HEMETOLOGY METHOD 02/02/2025 12:50 PM [facility] RBC 5.00 4.50 - 5.50 M/mcL LAB HEMETOLOGY METHOD 02/02/2025 12:50 PM EDT [facility] Hemoglobin 11.8(L) 13.5 - 17.5 g/dL LAB HEMETOLOGY METHOD 02/02/2025 12:50 PM [facility] Hematocrit 42.5 42.0 - 54.0 % LAB HEMETOLOGY [facility] M[facility] 84.7 79.0 - 98.0 FL [facility] MCH 23.5(L) 27.0 - 32.0 pcg LAB HEMETOLOGY METHOD 02/02/2025 12:50 PM [facility] MCHC 27.8(L) 32.0 - 37.0 g/dL LAB HEMETOLOGY METHOD 02/02/2025 12:50 PM [facility] RDW 19.4(H) 11.0 - 15.0 % LAB HEMETOLOGY METHOD 02/02/2025 12:50 PM EDT [facility] Platelets 352 130 - 400 K/mcL LAB HEMETOLOGY METHOD 02/02/2025 12:50 PM [facility] MPV 9.9 7.0 - 11.0 FL LAB HEMETOLOGY METHOD 02/02/2025 12:50 PM [facility] NRBC 0.0 <1.0 % LAB HEMETOLOGY METHOD 02/02/2025 12:50 PM EDT [facility] NRBC Absolute 0.00 <0.10 K/mcL LAB HEMETOLOGY METHOD 02/02/2025 12:50 PM EDT [facility] Neutrophils Relative 69.0 % LAB HEMETOLOGY METHOD 02/02/2025 12:50 PM [facility] Lymphocytes Relative 22.5 % LAB HEMETOLOGY METHOD 02/02/2025 12:50 PM EDT [facility] Monocytes Relative 7.1 % LAB HEMETOLOGY METHOD 02/02/2025 12:50 PM EDT [facility] Eosinophils Relative 0.4 % LAB HEMETOLOGY METHOD 02/02/2025 12:50 PM T [facility] Basophils Relative 0.7 % LAB HEMETOLOGY METHOD 02/02/2025 12:50 PM [facility] Immature Granulocytes Relative 0.3 % LAB HEMETOLOGY METHOD 02/02/2025 12:50 PM [facility] Neutrophils Absolute 6.24 1.50 - 7.00 K/mcL LAB HEMETOLOGY METHOD 02/02/2025 12:50 PM [facility] Lymphocytes Absolute 2.04 1.00 - 5.00 K/mcL LAB HEMETOLOGY METHOD 02/02/2025 12:50 PM [facility] Monocytes Absolute 0.64 0.20 - 1.00 K/mcL LAB HEMETOLOGY METHOD 02/02/2025 12:50 PM T [facility] Eosinophils Absolute 0.04 0.00 - 0.50 K/mcL LAB HEMETOLOGY METHOD 02/02/2025 12:50 PM T [facility] Basophils Absolute 0.06 0.00 - 0.20 K/mcL LAB HEMETOLOGY METHOD 02/02/2025 12:50 PM [facility] Immature Granulocytes Absolute 0.03 0.00 - 0.03 K/mcL LAB HEMETOLOGY METHOD 02/02/2025 12:50 PM EDT [facility] Blood Venous blood specimen / Unknown Venipuncture / Unknown 02/02/2025 10:58 AM EDT 02/02/2025 12:20 PM EDT us Michelle Erwin MD LAB BLOOD ORDERABLES Fi nal Result [facility] [address] [place] [address], documented in this encounter Visit Diagnoses Diagnosis Other fpc (current) drug therapy documented in this encounter Additional Health Concerns Infection Onset Date Last Indicated Resolved Time Respiratory Rule-Out 03/22/2025 03/22/2025 025 5:02 AM EDT COVID-19 Rule-Out 03/22/2025 03/22/2025 03/22/2025 5:02 AM EDT documented as of this encounter Care Teams Nail Mill Worker Relationship Specialty Start Date End Date Ginger Pate MD [address] [place] [id number] PCP - General Internal Medicine 03/22/25 documented as of this encounter
--- OUTSIDE RECORDS SUMMARY | 2025-06-05 09:59 | XMS_ITS | Data Portability ---
Author Organization [facility] [employer] [facility], Main Office Address [address] [place] [address] Care Team Providers Care Director Strategic Planning Name Role Phone AVA CHIQUI MCKEON Primary Care Provider [facility] ([facility] OTHER Assessment No assessment recorded. Plan [...] Address Organization Details Recorded Time Schizophre aleida 77375167 Active 2023 Kristy Obrien NP [address], [address], [place], [address] , [facility] 4 09:17:56 Hyperlipid emia 31333833 Active 2023 Kristy Obrien NP [address], [address], [place], [address] , [facility] 4 09:18:17 Type 2 diabetes mellitus 36815217 Active 2023 Kristy Obrien NP [address], [address], [place], [address] , [facility] 4 09:18:27 Hypothyroi dism 37531976 Active 2023 Kristy Obrien NP [address], [address], [place], [address] , [facility] 4 09:18:38 Asthma 094572154 Active 2023 Kristy Obrien NP [address], [place], [address] , [facility] 4 09:18:46 Seasonal allergy 304022371 Active 2023 Kristy Obrien NP [address], [place], [address] , [facility] 4 09:19:19 Hypertensi ve disorder 75858418 Active 2023 Kristy Obrien NP [address], [address], [place], [address] , [facility] 4 09:19:31 Urinary outflow obstructio n 202865030 Active 2023 Kristy Obrien NP [address], [place], [address] , [facility] 4 09:21:04 Partial excision of small intestine Active 2023 Kristy Obrien NP [address], [place], [address] , [facility] 4 09:22:07 Laparotomy 31698529 Active 2023 Kristy Obrien NP [address], [place], [address] , [facility] 4 09:22:28 Abdominal pain 65030202 Active 2023 Kristy Obrien NP [address], [place], [address] , [facility] 4 09:22:47 Traumatic brain injury 339064710 Active 2023 Kristy Obrien NP [address], [place], [address] , [facility] 4 09:53:08 Diabetic foot ulcer 686509975 Active 2023 Kristy Obrien NP [address], [place], [address] , [facility] 4 10:09:34 Hypoxia 641109660 Active 2023 Kristy Obrien NP [address], [address], [place], [address] , [facility] 4 10:10:32 Acute hypoxemic respirator y failure 044699526 Active 2024 Not Available [facility] 5 07:51:00 Type 2 diabetes mellitus without complicati on 609307913 Active 2024 Not Available [facility] 5 07:53:55 Benign prostatic hyperplasi a 920942540 Active 2024 Not Available [facility] 5 07:55:51 Pneumoniti s caused by inhalation of regurgitat ed food 452391537 Active 2024 resolved in hospital Not Available [facility] 5 07:58:50 Acute exacerbati on of chronic obstructiv e pulmonary disease 524508247 Active 2024 Not Available [facility] 5 08:00:46 Muscle weakness 14059306 Active 2024 Not Available [facility] 14:36:03 Incoordina tion 652633047 Active 2024 Not Available [facility] 14:36:05 Difficulty walking 642899543 Active 2024 Not Available [facility] 14:37:59 Oropharyng eal dysphagia 41735229 Active 2024 Not Available [facility] 14:38:01 Problem Notes None recorded. Medical Equipment None Reported. Allergies Allergen ID Allergen Name Allergen Category Reaction Reaction Severity Criticality Documentation Date Start Date Code Code System Note Provider Name and Address Organization Details Recorded Time 35475 amoxicill in medicatio n rash Not available Not available 02/27/2024 723 RxNorm Kristy Obrien NP [address], [address], [place], [address], [facility] 4 08:52:08 00038 egg extract food,medi cation hives vomiting Not available Not available unabletoasse 02/27/2024 83844 15 RxNorm Kristy Obrien NP [address], [address], [place], [address], [facility] 4 08:52:36 05238 Product containin g penicilli n (product) medicatio n rash Not available Not available 02/27/2024 53015 8001 SNOMED Kristy Obrien NP [address], [address], [place], [address], [facility] 4 08:52:58 30713 Substance with sulfonami de structure and antibacte rial mechanism of action (substanc e) medicatio n rash Not available Not available 02/27/2024 11461 8003 SNOMED Kristy Obrien NP [address], [address], [place], [address], [facility] 4 08:53:21 63608 trimethop rim medicatio n Not available Not available Not available 02/27/20242024 09044 RxNorm Not Available [facility] 5 15:12:50 78668 Haldol medicatio n Not available Not available Not available 02/27/20242024 00783 9 RxNorm Not Available [facility] 5 15:13:25 58080 latex environme nt,medica tion Not available Not available unabletoasse 02/27/2024 20358 91 RxNorm unkno wn Kristy Obrien NP [address], [address], [place], [address], [facility] 4 08:54:18 52741 methylpre dnisolone medicatio n Not available Not available Not available 02/27/20242024 6902 RxNorm Not Available [facility] 5 15:14:25 34008 sultamici llin Not available Not available Not available Not available 02/27/20242024 01399 RxNorm Not Available [facility] 15:15:36 02172 haloperid ol medicatio n Not available Not [...] since a teenager Kristy Obrien, SILVER [address] [facility] [address], [place], [address], [facility] 02/27/2024 10:11:57 Do You Have An Advance Directive? No Information not available 02/27/2024 What Is Your Level Of Caffeine Consumption? Occasional 1-2 Cups Per Day Information not available 02/27/2024 What Is Your Code Status? Full Code Invoked And No Hcp Here, Will Contact He Would Like To Be Full Code If Possible Information not available 02/27/2024 Where Do You Live? Other Long Term Information not available 02/27/2024 What Was The [...] Td(adult) unspecified formulation 02/03/2013 completed [facility] 02/27/2024 16:17:35 influenza, unspecified formulation 10/28/2023 completed Mary [facility] 02/27/2024 16:17:49 SARS-COV-2 (COVID-19) vaccine, UNSPECIFIED 12/08/2020 completed Mary [facility] 02/27/2024 16:18:07 SARS-COV-2 (COVID-19) vaccine, UNSPECIFIED 12/29/2020 completed Mary [facility] 02/27/2024 16:18:15 SARS-COV-2 (COVID-19) vaccine, UNSPECIFIED 09/06/2021 completed Mary [facility] 02/27/2024 16:18:22 SARS-COV-2 (COVID-19) vaccine, UNSPECIFIED 08/23/2023 completed Mary [facility] 02/27/2024 16:18:31 SARS-COV-2 (COVID-19) vaccine, UNSPECIFIED 10/28/2023 completed Mary veliz [place] - [facility] 02/27/2024 16:18:38 Past Encounters Encounter ID Performer Location Encounter Start Date Encounter Closed Date Diagnosis/Indication Diagnosis SNOMED-CT Code Diagnosis ICD10 Code Diagnosis Note [id number] Kristy Obrien NP [facility] [address] [place] [address] 02/27/2024 08:26:13 03/04/2024 08:58:17 Asthenia 76971967 R53.1 weakness from recent pna and abd resectionP T OT eval and treatsuppo rtive care as devices as neededmoni tor Abdominal pain 70021758 R10.9 status post bowel resection on 02/16/24 [...] tidvitals daily Type 2 mechelle betes mellitus 66786242 E11.9 metformin 1000 mg po bid with mealslispr o ISSmonitor bs with meals and need for titration Diabetic foot ulcer 3710 70372 E13.621 see hpicleanse dm ulcer with ns, pack with ca alginate, apply dcd, dailyconsu lt wound team for debridemen t and carewill order xray to ro osteomyeli tis of great toensg to contact residential for appropriat e footwear, boots are rubbingwil l cont doxycyclin e 100 mg po bid x 2 weeks and reeval with probiotic on march 12 ibuprofen 600 mg po q 6 hours prntylenol 650 mg po q 4 hours prn nte 3 g/24 hoursgabap entin 600 mg po tidmonitor Schizophrenia 70129762 F 20.9 clozaril to restart outpt on 03/18/24 per instructio nslithium carbonate 450 mg er po bidfluphen azine 1 mg po qhslithium level on 02/25 wnl Hypertensive disorder 38 563071 I10 atenolol 25 mg po dialymonit or vitals Hypothyroidism 85397634 E03.9 levothyrox ine 150 mcg po dailymonit or tsh prn Hyperlipidemia 44818778 E78.5 atorvastat in 40 mg po qhsmonitor Asthma 622140822 J45.90 9 ? asthma/endoscopy support specialist dtrelegy ellipta 1 inhal daily02 prnalb inhaler 1 puff q 6 hours prn sobmonitor Seasonal allergy 9650682 04 J30.2 loratadine 10 mg po dailyflona se 1 spray each nare daily Urinary ou tflow obstruction 097339566 N13.9 on tamulosin 0.4 mg po qhsmonitor urinary output Traumatic brain injury 817337475 S06.9X0S unclear of hxcarrying dx ? related to warmonitor Pneumonia 627336699 J18. 9 hypoxia felt related to pna resolvedtr eated with o2, nebs, ceftriaxon e, and inhalersmo nitor for reoccuranc e Moderate c ognitive impairment 259300087 R41.9 mod cog impairment with TBIinvoke ptsupporti ve caremonito r for changes Smoker 03855467 F17.200 offered NRT but refusessta camila it will destabiliz e him being off clozaril and with recent surgerysup [facility] [id number] [facility] [address] 02/28/2024 10:37:47 03/04/2024 09:40:12 Small bowel obstruction 921457190 K56.691 see HPIcomplet e course of doxycyclin eadd probioticm onitor cbcmonitor siteupdate surgery with concerns Hospital a cquired pneumonia 378540049 Y95 concern for pneumonia, vs copd in hospitaltr eated with rocephinmo nitor respirator y function and need for repeat imaging Asthenia 96787852 R53.1 PT OT eval and treatmonit or fall risk Type 2 mechelle betes mellitus 60262531 E11.9 metformin 1000 mg po bidins SSmonitor blood glucose and need to titrate Diabetic foot ulcer 3710 55559 E13.621 wound care to eval and followmoni tor for secondary infection Schizophrenia 69823321 F 20.1 increased sx in hospital eval by pschrestar t clozapine 25 mg qhspsych to [facility] t patient f/u in placeconti nued on lithium and fluphenazi nemonitor behaviors Hypertensive disorder 38 884617 I10 atenolol 25 mg po qdmonitor bp and need to titrate Hypothyroidism 97406215 E03.8 synthroid 150 mcg qdmonitor tsh prn Hyperlipidemia 19308442 E78.2 lipitor 40 mg qdcontinue d Seasonal allergy 8023165 04 J30.2 loratadine 10 mg po qdflonase 1 spray qdcontinue d Urinary ou tflow obstruction 249171316 N13.9 flomax 0.4 mg qdmonitor for sx relief Traumatic brain injury 623322486 S06.9X0S carrying dxadded to PMHHCP invoked Moderate c ognitive impairment 545437613 R41.9 carrying dxHCP invokedcon tinue supportive caremonito r for behaviors Smoker 75575215 F17.200 encourage quitting however with underlying schizophre aleiad patient has no interestmo nitor patient attempting to elope do to this Benign pro static hyperplasia without outflow obstruction 634041357 N40.0 flomax 0.4 mg qdmonitor for sx relief [id number] GAIL PITTS, ASSISTANT OPERATOR-C [place] [address] [place] [address] 05/06/2025 10:24:36 05/12/2025 16:53:02 Sepsis 38712767 A41.9 R65.20 dt aspiration PNAresolve d Acute hypo xemic respiratory failure 355678455 J96.01 dt aspiration PNAseverel y hypoxic in the EDrequired 15 L non rebreather , weaned to 3 L NCcont supp O2wean as tolerated, goal spo2 > 92%RT to follow Pneumoniti s caused by inhalation of regurgitated food 723066305 J69.0 with hypoxiaori ginally received IV rocpehen and flagyltran sitioned to po ceftin and po flagylcont antbxmonit or resp statusrema ins on supp O2 History of Disorder 3128 60497 Z87.898 causing PNAaspirat ion precaution sspecializ ed dietSLP to follow up Asthma 770940530 J45.90 9 overlap of asthma/endoscopy support specialist dtrelegy ellipta 1 inhal dailyalb inhaler q6h prnmonitor resp status Hyperlipidemia 21802484 E78.2 cont statinlipi ds outpt Hypertensive disorder 38 266021 I10 cont atenololmo nitor bp and labs Hypothyroidism 24413994 E03.8 cont synthroid 175 mcg dailythyro id panel outpt Traumatic brain injury 428728550 S06.9X0S lives in residential Schizophrenia 73500365 F 20.1 no med changes inpt, stable at baselinemo nitor behaviors and affectpara noid on examcont home meds: gabapentin , lithium, clozapine, fluphenazi nepsych eval prn Urinary ou tflow obstruction 078019493 N13.9 cont flomax and desmopress inmonitor UOP Type 2 mechelle betes mellitus 33358585 E11.9 cont glipizide 2.5 mg dailycont accuchecks tid with lispro sscont lantus 15 units qhscont metformin 1000 mg bidmonitor [id number] MD OPAL Vega [address] [place] [address] 05/10/2025 09:39:48 05/25/2025 11:23:09 Schizophrenia 69054875 F20.1 comorbid TBIclozapi ne 175mg daily / fluphenazi ne 1md daily / lithium 450mg bid / gabapentin 600mg tid Type 2 mechelle betes mellitus 89439465 E11.9 metformin 1000 mg po bid / [...] 81.0 mg/dL mbe[place]ont (Manual) Hypertensive disorder 38 336007 I10 atenolol 25 mg po qd; labile; [...] 88 / 63 mmHg Sitting l/arm Hypothyroidism 75819472 E03.8 synthroid 175mcg daily Hyperlipidemia 52737633 E78.2 atorvastat in 40 mg qd Seasonal allergy 7040603 04 J30.2 nasal steroids daily / cetirizine 5mg daily. Increase nasal steroids to bid Benign pro static hyperplasia without outflow obstruction 907491115 N40.0 flomax 0.4 mg qd / desmopress in 0.1 mg qhs Smoker 52667494 F17.200 on nicotine replacemen tsmoked 1 ppd for a while and was able to cut back to 1/2 ppd; discussed use of lozenges (may increase to q1hour as needed use. Aspiration pneumonitis 453721913 J69.0 CXR with multi-loba r pnuemonia, hypoxemic resp failure/ COPD-asthm a exacerbati on with continued ambulatory desaturati on, noted troponin bump (426) without CK elevations /p treatment with Rocephin/F lagylasthe aleida from acute serious conditionP T/OTcurren tly off resting 2 but may need post-exert ional sat Acute exac erbation of chronic obstructive pulmonary disease with asthma 3171497751 100 J44.1 Trelegy / PRN albuterol MDI For resuscitation 819510 001 Z78.9 Normocytic anemia 969004 002 D64.9 Hgb 11.4 (04/28) [id number] GAIL PITTS, ASSISTANT OPERATOR-C [facility] [address] [place] [address] 05/11/2025 08:46:40 05/12/2025 18:04:48 Acute hypoxemic respiratory failure 214247833 J96.01 dt aspiration PNAremains on O2 here, none at baselinewe an as tolerated, goal spo2 > 92%RT to follow Pneumoniti s caused by inhalation of regurgitated food 149463457 J69.0 completed course of antbxencou rage IS use, and oob for mealsmonit or resp statusrema ins on supp O2 Asthma 547308891 J45.90 9 overlap of asthma/endoscopy support specialist dtrelegy ellipta 1 inhal dailyalb inhaler q6h prnmonitor resp status Hypertensive disorder 38 727538 I10 BP controlled cont atenololmo nitor bp and labs Schizophrenia 12615635 F 20.1 no med changes inpt, stable at baselinemo nitor behaviors and affectmild ly paranoid on examcont home meds: gabapentin , lithium, clozapine, fluphenazi nepsych eval prn Urinary ou tflow obstruction 639734931 N13.9 good urine output, using urinalcont flomax and desmopress inmonitor UOP Type 2 mechelle betes mellitus 79837472 E11.9 very well controlled cont glipizide 2.5 mg dailycont accuchecks tid with lispro sscont lantus 15 units qhscont metformin 1000 mg bidmonitor [id number] [place] [address] 05/18/2025 07:20:15 05/19/2025 15:33:22 Acute hypoxemic respiratory failure 925863403 J96.01 resolvedno w on RA Pneumoniti s caused by inhalation of regurgitated food 095257314 J69.0 completed course of antbxresol drew Asthma 385657912 J45.90 9 h/o asthma/endoscopy support specialist dtrelegy ellipta 1 inhal dailyalb inhaler q6h prnmonitor resp status Hypertensive disorder 38 446504 I10 BP controlled cont atenololmo nitor bp and labs Schizophrenia 01620175 F 20.1 no med changes inpt, stable at baselinemo nitor behaviors and affectmild ly paranoid on examcont home meds: gabapentin , lithium, clozapine, fluphenazi nepsych eval prn Urinary ou tflow obstruction 525684675 N13.9 good urine output, using urinalcont flomax and desmopress inmonitor UOP Type 2 mechelle betes mellitus 67593453 E11.9 very well controlled , all < 150cont glipizide 2.5 mg dailycont accuchecks tid with lispro sscont lantus 15 units qhscont metformin 1000 mg bidconside r decreasing accuchecks and possibly dc of ss Asthenia 12053190 R53.1 was decondtion edmaking good gainsambul ated 100 ft x 4 yesterdayc ont PT OTclose to [facility] trying to reach out to his residential [id number] [place] [address] 05/21/2025 12:19:18 05/25/2025 10:14:05 Asthma 609188499 J45.909 h/o asthma/endoscopy support specialist dno acute [facility] RAtrelegy ellipta 1 inhal dailyalb inhaler q6h prnmonitor resp status Hypertensive disorder 38 874957 I10 BP controlled cont atenolol 25 mg dailymonit or bp and labs Schizophrenia 62974400 F 20.1 mildly paranoid on exam but stablecont home meds: gabapentin , lithium, clozapine, fluphenazi nemonitor mood and affectpsyc h eval prndc on sat back to residential Urinary ou tflow obstruction 955803744 N13.9 good urine output, using urinalcont flomax and desmopress inmonitor UOP Type 2 mechelle betes mellitus 30734910 E11.9 very well controlled , all < 150cont glipizide 2.5 mg dailycont lantus 15 units qhscont metformin 1000 mg bidok to fl lispro ss = residential cannot facilitate this and he is not requiring bolus insulin Asthenia 18775070 R53.1 was deconditio nedmaking good gainsambul ated 100 ft x 4cont PT OTdc back [place] [id number] [address] [place] [place] [address] 05/25/2025 11:28:50 05/27/2025 09:16:45 Asthma 531329387 J45.909 no acute exacmainta in sats on [facility] trelegy ellipta 1 inhal dailycont alb inhaler q6h prnmonitor resp status Hypertensive disorder 38 739600 I10 BP controlled cont atenolol 25 mg dailymonit or bp and labs Schizophrenia 71540507 F 20.1 mildly paranoid on exam but stablecont home meds: gabapentin , lithium, clozapine, fluphenazi nemonitor mood and affectpsyc h eval prn Urinary ou tflow obstruction 647395871 N13.9 good urine output, using urinalcont flomax and desmopress inmonitor UOP Type 2 mechelle betes mellitus 15173573 E11.9 very well controlled , all < 150cont glipizide 2.5 mg dailycont lantus 15 units qhscont metformin 1000 mg bidno longer monitor blood sugars Asthenia 01861078 R53.1 was deconditio nedmaking good gainsambul ated 100 ft x 4cont PT OTgetting close to dc back to residential this week Dyspnea on exertion 6084 5006 R06.02 noted to have increased WOB walking from bathroom to bedwhen asked he agreed he was sobhe has been weaned to RA since last weekall sats mid to high 90s on [facility] to monitor [id number] [address] [address] [place] [address] 05/28/2025 08:13:09 05/28/2025 12:42:08 Dyspnea on exertion 90469053 R06.02 denies sobresolve d without interventi onmonitor Asthma 788224450 J45.90 9 no acute exacmainta in sats on [facility] trelegy ellipta 1 inhal dailycont alb inhaler q6h prnmonitor resp status Hypertensive disorder 38 342061 I10 BP controlled cont atenolol 25 mg dailymonit or bp and labs Type 2 mechelle betes mellitus 37029361 E11.9 very well controlled , all < 150cont glipizide 2.5 mg dailycont lantus 15 units qhscont metformin 1000 mg bidno longer monitoring blood sugars and lispro ss has been discontinu ed Asthenia 01034171 R53.1 was deconditio nedmaking good gainsambul ating with therapycon t PT OTcare plan meeting 05/26katie fl back to residential next week [id number] [address] [place] [address] 06/01/2025 07:17:54 06/01/2025 10:58:04 Dyspnea on exertion 06883143 R06.02 resolved Asthma 337348401 J45.90 9 no acute exacmainta in sats on [facility] tregy ellipta 1 inhal dailycont alb inhaler q6h prnf/u with PCP Hypertensive disorder 38 265787 I10 BP controlled cont atenolol 25 mg dailymonit or bp outptf/u with PCP Type 2 mechelle betes mellitus 85391847 E11.9 very well controlled , all < 150 and ss insulin was discontinu edcont glipizide 2.5 mg dailycont lantus 15 units qhscont metformin 1000 mg bidA1C q6mos outptf/u with PCP Asthenia 33737897 R53.1 completed PT OTback to baselinefl home with services Aspiration pneumonitis 965630258 J69.0 treated inptresolv ed Smoker 06471104 F17.200 on nicotine replacemen tcont smoking cessation outptf/u with PCP Schizophrenia 89056132 F 20.1 mood stable, odd affectcont home med regimen: clozapine 175mg daily / fluphenazi ne 1md daily / lithium 450mg bid / gabapentin 600mg tidmonitor mood and affect outptf/u with PCP Hypothyroidism 21160650 E03.8 cont synthroid 175 mcg dailythyro id panel outptf/u with PCP Hyperlipidemia 51337603 E78.2 cont atorvastat in 40 mg qdlipids outptf/u with PCP Benign pro static hyperplasia without outflow obstruction 271038409 N40.0 urinary without issues while herecont flomax 0.4 mg qd / desmopress in 0.1 mg qhsmonitor UOP outptf/u with PCP Acute hypo xemic respiratory failure 710708623 J96.01 dt PNAresolve d Pneumoniti s caused by inhalation of regurgitated food 355489294 J69.0 with hypoxia and resp failurecom pleted IV antbxnow resolved History of Disorder 3128 16941 Z87.898 causing PNAcont aspiration precaution s in group homecont current dietf/up with PCP for concerns Tra[facility]80542 [facility] Health Concerns Section Related Observation LastModified by Organization Detai ls LastModified Time None Recorded Concern Status LastModified by Organization Details LastModified Time None Recorded Advance Directives Directive N: Payers Insurance Date Sequence Insurance Name Policy Number Policy Ochoa Covered Member ID Ochoa Member ID Guarantor Name 05/21/2025 1 [place] [employer] David Lantigua [id number] David Lantigua 05/21/2025 2 [place] [facility] David Lantigua [id number] David Lantigua Notes Date Note Type Note Provider Name and Address Organization Details Recorded Time 05/18/2025 text/html Patient is a 59 yo male being seen for acute rounding visit. Pt found down at residential unclear length of time. On arrival to [...] working with therapy, hes able to ambulate. [facility] schizophrenia, TBI, dm, hld, hypothyroid, asthma, copd JOHN SUTHERLAND [address], [address], [place], [address], [facility] 05/18/2025 12:13:34 05/21/2025 text/html Patient is a 59 yo male being seen for acute rounding visit. Pt found down at residential unclear length of time. On arrival to [...] Participating with therapy. Tentative dc back to residential on sat. His blood sugars are controlled without use of ss lispro. [facility] schizophrenia, TBI, dm, hld, hypothyroid, asthma, copd JOHN SUTHERLAND [address], [address], [place], [address], [facility] 05/21/2025 12:23:28 05/25/2025 text/html Patient is a 59 yo male being seen for acute rounding visit. Pt found down at residential unclear length of time. On arrival to [...] are controlled without use of ss lispro. [facility] schizophrenia, TBI, dm, hld, hypothyroid, asthma, copd JOHN SUTHERLAND [address], [address], [place], [address], [facility] 05/25/2025 13:12:29 05/28/2025 text/html Patient is a 59 yo male being seen for acute rounding visit. Pt found down at residential unclear length of time. On arrival to [...] week held, plan to dc back to residential next week. Pt has no medical concerns today. He tells me hes just relaxing today, laying in bed. He is waiting for a movie to start and hes thirsty. [facility] schizophrenia, TBI, dm, hld, hypothyroid, asthma, copd JOHN SUTHERLAND [address], [address], [place], [address], [facility] [employer] [facility] 05/28/2025 12:42:07 06/01/2025 text/html Patient is a 59 yo male being seen for discharge. Pt found down at residential unclear length of time. On arrival to [...] is medically clear for dc back to residential with meds and services in place, per referral made to [facility]. [facility] schizophrenia, TBI, dm, hld, hypothyroid, asthma, copd JOHN SUTHERLAND [address], [address], [place], [address], [facility] - [facility] 06/01/2025 10:58:02
[2025-06-05 10:07] LABS: Procalcitonin 0.05 ng/mL
--- NOTE | 2025-06-05 10:20 | PC.NURSE ---
patient alert to self only, thinks he is at [place] and is unsure of date/year or who is president. Poc obtained-wnl, ekg obtained, electronic device monitor applied- nsr on monitor, labs drawn, bc obtained, pt medicated per order, ivf hung per order, urine obtained, call tracy within reach, plan of care ongoing
[2025-06-05 10:26] LABS: Appearance Urine Clear; Glucose Urine UA Negative (Negative); PH 7.5 (5.0-9.0); Specific Gravity - Urine 1.010 (1.005-1.025); UMIC TRIGGER UACC YES
[2025-06-05] MEDS: iohexoL 350 MG/ML 100 ML INFUS..BTL IV (11:13)
[2025-06-05 11:16] LABS: Free T4 (Free Thyroxine) 1.17 ng/dL (0.71-1.85)
== END 2025-06-05 16:31 | disposition home or self-care (01) ==
PROVIDERS: Emergency Provider Emergency Medicine; PCP Internal Medicine
DX: R53.1 Weakness (principal); R30.0 Dysuria; R41.82 Altered mental status, unspecified; E11.9 Type 2 diabetes mellitus without complications; I10 Essential (primary) hypertension; E78.5 Hyperlipidemia, unspecified; E03.9 Hypothyroidism, unspecified; J45.909 Unspecified asthma, uncomplicated; F20.9 Schizophrenia, unspecified; F17.210 Nicotine dependence, cigarettes, uncomplicated; Z87.820 Personal history of traumatic brain injury; Z79.899 Other long term (current) drug therapy; Z79.84 Long term (current) use of oral hypoglycemic drugs; Z79.02 Long term (current) use of antithrombotics/antiplatelets; Z79.4 Long term (current) use of insulin
CPT/HCPCS: 36415; 71045; 74177; 80048; 80076; 80178; 81001; 82947; 83605; 83735; 84145; 84439; 84443; 85025; 86140; 87040; 93005; 96361; 96374; 99284; 99285; J0696; J7120; Q9967

== ENCOUNTER → 2025-06-05 08:51 | Outpatient (BNV) | payer MEDICARE, MEDICAID, SELFPAY | PROVIDERS: Emergency Provider Emergency Medicine; PCP Internal Medicine; Visit Provider Radiology Diagnostic Radiology | DX: K59.00 Constipation, unspecified (principal); R53.1 Weakness | CPT/HCPCS: 71045 ==

== ENCOUNTER → 2025-06-05 09:21 | Outpatient (BNV) | payer MEDICARE, MEDICAID, SELFPAY | PROVIDERS: Emergency Provider Emergency Medicine; PCP Internal Medicine; Visit Provider Internal Medicine Cardiovascular Disease | DX: R53.1 Weakness (principal) | CPT/HCPCS: 93010 ==

== ENCOUNTER → 2025-07-06 21:33 | Outpatient (BNV) | payer MEDICARE, MEDICAID, SELFPAY | PROVIDERS: Visit Provider Radiology Diagnostic Radiology | DX: R06.02 Shortness of breath (principal); R05.9 Cough, unspecified | CPT/HCPCS: 71045 ==

== ENCOUNTER 2025-07-06 21:48 | Inpatient (IN) | payer MEDICARE, MEDICAID, SELFPAY ==
--- NOTE | ~2025-07-06 | XR_ITS ---
CLINICAL HISTORY: sob cough 1 view chest x-ray Comparison: 06/05/2025 Findings: Lungs are clear without acute infiltrates. Stable scarring and interstitial fibrosis. Stable costophrenic angle pleural scarring. Calcified pleural plaquing noted. No pneumothorax. Heart size normal. No acute bony abnormalities. Impression: No acute processes This document has been electronically signed by: Arcenio Dia MD on 07/06/2025 23:16:54
--- NOTE | ~2025-07-06 | CT_ITS ---
EXAMINATION: CT CHEST ANGIOGRAPHY WITH IV CONTRAST INDICATION: dyspnea COMPARISON: Comparison is made with the prior examination dated 04/29/2025. TECHNIQUE: Helical CT scan of the chest was performed following administration of intravenous contrast (65 mL Omnipaque 350). The contrast bolus was timed to optimally opacify the pulmonary arteries. Thin sections were obtained through the pulmonary arteries. Coronal and sagittal reformatted images were generated. 3D/MIP reconstructed images are also obtained and reviewed. This CT exam was performed with one or more of the following dose reduction techniques: automated exposure control, adjustment of the mA and/or kV according to patient size, use of iterative reconstruction technique. DLP: 298 mGy-cm CHEST: THYROID: The thyroid gland is unremarkable. PULMONARY ARTERIES: Evaluation of the pulmonary arteries is limited by respiratory motion artifact. No definite intraluminal filling defects are identified within the pulmonary arteries to suggest pulmonary emboli. LUNGS: There is moderate emphysema. There is scarring in both lungs, most prominent at the lung bases. MEDIASTINUM: There is no mediastinal lymphadenopathy. DEBRA: There is no hilar lymphadenopathy. CARDIOVASCULATURE: The heart is normal in size. There is no pericardial effusion. The thoracic aorta is normal in caliber. DEGREE OF CORONARY CALCIFICATION: moderate PLEURA: There is bilateral pleural thickening and calcified pleural plaques, consistent with prior asbestos exposure. There is no pleural effusion. No pneumothorax. MAIN AIRWAYS: The mainstem bronchi and proximal branches are patent. AXILLA: There is no axillary lymphadenopathy. UPPER ABDOMEN: The visualized portions of the liver, spleen, and adrenals are unremarkable. BONES AND SOFT TISSUES: Unremarkable. CT/CT angio chest PE protocol IMPRESSION: No definite evidence of pulmonary emboli. Moderate emphysema. Calcified pleural plaques, consistent with prior asbestos exposure. Because moderate emphysema is an independent risk factor for lung cancer, consider entering the patient into a program of yearly lung cancer screening with low dose chest CT. Electronically signed by: Adal Angela MD 07/07/2025 10:25 AM EDT
[2025-07-06 22:02] VITALS: BP 119/53; PULSE 88; RESP 26; TEMP 36.9; O2SAT 91; BMI 20.5
[2025-07-06 22:03] VITALS: O2SAT 97
--- NOTE | 2025-07-06 22:05 | PC.NURSE ---
pt placed on oxymask as he is mouth breathing. sats improved.
[2025-07-06 22:06] VITALS: PULSE 83; O2SAT 99
--- NOTE | 2025-07-06 22:30 | PC.NURSE ---
Demetri HOLLINGSWORTH aware of presenting sx/o2. awaiting eval by ed provider.
[2025-07-06 22:32] LABS: MANUAL DIFF FLAG NO
--- OUTSIDE RECORDS SUMMARY | 2025-07-06 22:33 | XMS_ITS | Encounter Summary ---
Author Organization [facility] Address [address] [place] [address] Care Team Providers Care Digital Pre Press Operator Name Role Phone Ginger Pate MD Primary Care Provider Encounter Details Date Type Department Care Team (Late st Contact Info) Description 04/27/2025 Lab Requisition [facility] - Main Lab [address] [facility] [place] [address] Michelle Erwin MD [address] [place] [address] Other mcc (current) drug therapy Social History Tobacco Use Types Packs/Day Years Used Date Smoking Tobacco: Unknown Passive Smoke Exposure: Past Alcohol Use Standard Drinks/Week Comments Not Currently 0 (1 standard drink = 0.6 oz pur e alcohol) Food Risk Answer Date Recorded Within the past 12 months we worried whether our food would run out before we got money to buy more. Not asked 03/30/2025 Within the past 12 months th e food we bought just didn't last and we didn't have money to get more. Not asked 03/30/2025 Interpersonal Safety Answer Date Record ed Physical Abuse 03/30/2025 Verbal Abuse 03/30/2025 Sex and Gender Information Value Date Recorded Sex Assigned at Not on file Legal Sex Male 7:02 PM EST Gender Identity Not on file Sexual Orientation Choose not to disclose 2024 1:43 AM EDT documented as of this encounter Plan of Treatment Not on file documented as of this encounter Procedures Procedure Name Priority Date/Time Associated Diagnosis Comments CBC WITH AUTO DIFFERENTIAL Routine 04/27/2025 8:25 AM EDT Other manager terminal (current) drug therapy CBC AND DIFFERENTIAL Routine 04/27/2025 8:25 AM EDT Other mcc (current) drug therapy documented in this encounter Results * (ABNORMAL) CBC auto differential (04/27/2025 8:25 AM EDT) [facility] Signature WBC 10.3 4.8 - 10.8 K/mcL LAB HEMETOLOGY METHOD 04/27/2025 10:48 AM [facility] RBC 5.00 4.50 - 5.50 M/mcL LAB HEMETOLOGY METHOD 04/27/2025 10:48 AM [facility] Hemoglobin 12.0(L) 13.5 - 17.5 g/dL LAB HEMETOLOGY METHOD 04/27/2025 10:48 AM [facility] Hematocrit 42.5 42.0 - 54.0 % LAB HEMETOLOGY METHOD 04/27/2025 10:48 AM [facility] MCV 84.5 79.0 - 98.0 FL LAB HEMETOLOGY METHOD 04/27/2025 10:48 AM [facility] MCH 23.9(L) 27.0 - 32.0 pcg LAB HEMETOLOGY METHOD 04/27/2025 10:48 AM [facility] LAB MCHC 28.2(L) 32.0 - 37.0 g/dL LAB HEMETOLOGY METHOD 04/27/2025 10:48 AM [facility] RDW 20.1(H) 11.0 - 15.0 % LAB HEMETOLOGY METHOD 04/27/2025 10:48 AM [facility] Platelets 288 130 - 400 K/mcL LAB HEMETOLOGY METHOD 04/27/2025 10:48 AM [facility] MPV 9.7 7.0 - 11.0 FL LAB HEMETOLOGY METHOD 04/27/2025 10:48 AM [facility] NRBC 0.0 <1.0 % LAB HEMETOLOGY METHOD 04/27/2025 10:48 AM [facility] NRBC Absolute 0.00 <0.10 K/mcL LAB HEMETOLOGY METHOD 04/27/2025 10:48 AM [facility] Neutrophils Relative 81.3 % LAB HEMETOLOGY METHOD 04/27/2025 10:48 AM [facility] Lymphocytes Relative 11.0 % LAB HEMETOLOGY METHOD 04/27/2025 10:48 AM [facility] Monocytes Relative 6.8 % LAB HEMETOLOGY METHOD 04/27/2025 10:48 AM [facility] Eosinophils Relative 0.2 % LAB HEMETOLOGY METHOD 04/27/2025 10:48 AM [facility] Basophils Relative 0.4 % LAB HEMETOLOGY METHOD 04/27/2025 10:48 AM [facility] Immature Granulocytes Relative 0.3 % LAB HEMETOLOGY METHOD 04/27/2025 10:48 AM [facility] Neutrophils Absolute 8.35(H) 1.50 - 7.00 K/mcL LAB HEMETOLOGY METHOD 04/27/2025 10:48 AM [facility] Lymphocytes Absolute 1.13 1.00 - 5.00 K/mcL LAB HEMETOLOGY METHOD 04/27/2025 10:48 AM [facility] Monocytes Absolute 0.70 0.20 - 1.00 K/mcL LAB HEMETOLOGY METHOD 04/27/2025 10:48 AM [facility] LAB Eosinophils Absolute 0.02 0.00 - 0.50 K/[facility] LAB HEMETOLOGY METHOD 04/27/2025 10:48 AM EDT [facility] Basophils Absolute 0.04 0.00 - 0.20 K/[facility] LAB HEMETOLOGY METHOD 04/27/2025 10:48 AM EDT [facility] LAB Immature Granulocytes Absolute 0.03 0.00 - 0.03 K/[facility] LAB HEMETOLOGY METHOD 04/27/2025 10:48 AM EDT [facility] Blood Venous blood specimen / Unknown Venipuncture / Unknown 04/27/2025 8:25 AM EDT 04/27/2025 9:25 AM EDT us Michelle Erwin MD LAB BLOOD ORDERABLES Fi nal Result [facility] [address] [place] [address], documented in this encounter Visit Diagnoses Diagnosis Other mcc (current) drug therapy documented in this encounter Care Teams Digital Pre Press Operator Relationship Specialty Start Date End Date Ginger Pate MD [address] [place] [address] PCP - General Internal Medicine 03/22/25 documented as of this encounter
--- OUTSIDE RECORDS SUMMARY | 2025-07-06 22:33 | XMS_ITS | Encounter Summary ---
Author Organization [facility] Address [address] [place] [address] Care Team Providers Care Pari Mutuel Ticket Seller Name Role Phone Ginger Pate MD Primary Care Provider Encounter Details Date Type Department Care Team (Late st Contact Info) Description 2025 Lab Requisition [facility] - Main Lab [address] [facility] [place] [address] Junaid Desir MD [address] [place] [address] [address] [place], [address] Essential (primary) hypertension Social History Tobacco Use Types Packs/Day Years [...] file Sexual Orientation Choose not to disclose 05/13/ 2025 1:43 AM EDT documented as of this encounter Plan of Treatment Not on file documented as of this encounter Procedures Procedure Name Priority Date/Time Associated Diagnosis Comments COMPLETE BLOOD COUNT Routine 05/31/2025 6:44 AM EDT Essential (primary) hypertension BASIC METABOLIC PANEL Routine 05/31/2025 6:44 AM EDT Essential (primary) hypertension documented in this encounter Results * (ABNORMAL) Complete blood count (05/31/2025 6:44 AM EDT) [facility] WBC 10.7 4.8 - 10.8 K/mcL LAB [facility]EM[facility]OLOG[facility] RBC 4.10(L) 4.50 - 5.50 M/mcL LAB HEMETOLOGY METHOD 05/31/2025 12:47 PM [facility] Hemoglobin 10.1(L) 13.5 - 17.5 g/dL LAB HEMETOLOGY METHOD 05/31/2025 12:47 PM [facility] LAB Hematocrit 35.5(L) 42.0 - 54.0 % LAB HEMETOLOGY METHOD 05/31/2025 12:47 PM [facility] LAB MCV 86.6 79.0 - 98.0 FL LAB HEMETOLOGY METHOD 05/31/2025 12:47 PM [facility] LAB MCH 24.6(L) 27.0 - 32.0 pcg LAB HEMETOLOGY METHOD 05/31/2025 12:47 PM [facility] LAB MCHC 28.5(L) 32.0 - 37.0 g/dL LAB HEMETOLOGY METHOD 05/31/2025 12:47 PM [facility] LAB RDW 18.9(H) 11.0 - 15.0 % LAB HEMETOLOGY METHOD 05/31/2025 12:47 PM [facility] LAB Platelets 305 130 - 400 K/mcL LAB HEMETOLOGY METHOD 05/31/2025 12:47 PM EDT [facility] LAB MPV 10.0 7.0 - 11.0 FL LAB HEMETOLOGY METHOD 05/31/2025 12:47 PM EDT [facility] NRBC 0.0 <1.0 % LAB HEMETOLOGY METHOD 05/31/2025 12:47 PM EDT [facility] NRBC Absolute 0.00 <0.10 K/mcL LAB HEMETOLOGY METHOD 05/31/2025 12:47 PM EDT [facility] Blood Venous blood specimen / Unknown Venipuncture / Unknown 05/31/2025 6:44 AM EDT 05/31/2025 11:34 AM EDT us Junaid Desir MD LAB BLOOD ORDERABLES Final Resul t [facility] [address] [place] [address], [place] [phone] * (ABNORMAL) Basic metabolic panel (05/31/2025 6:44 AM EDT) Sodium 139 133 - 145 mmol/L LAB CHEMISTRY METHOD 05/31/2025 4:14 PM [facility] Potassium 3.5 3.5 - 5.5 mmol/L LAB CHEMISTRY METHOD 05/31/2025 4:14 PM [facility] Chloride 104 96 - 110 mmol/L LAB CHEMISTRY METHOD 05/31/2025 4:14 PM [facility] CO2 30 21 - 32 mmol/L LAB CHEMISTRY METHOD 05/31/2025 4:14 PM [facility] Anion Gap 5 3 - 11 LAB CHEMISTRY METHOD 05/31/2025 4:14 PM [facility] Glucose 38(LL) 70 - 100 mg/dL LAB CHEMISTRY METHOD 05/31/2025 4:14 PM EDT [facility] BUN 9 5 - 25 mg/dL LAB CHEMISTRY METHOD 05/31/2025 4:14 PM EDT [facility] Creatinine 0.54(L) 0.70 - 1.30 mg/dL LAB CHEMISTRY METHOD 05/31/2025 4:14 PM [facility] eGFR 114 >=60 mL/min/1. 73m2 LAB CHEMISTRY METHOD 05/31/2025 4:14 PM [facility] Comment:Calculation based on the Chronic Kidney Disease Epidemiology Collaboration (CKD-EPI) equation refit without adjustment for race. BUN/Creatinine Ratio 16.7 LAB CHEMISTRY METHOD 05/31/2025 4:14 PM [facility] Calcium 8.8 8.5 - 10.5 mg/dL LAB CHEMISTRY METHOD 05/31/2025 4:14 PM [facility] Blood Venous blood specimen / Unknown Venipuncture / Unknown 05/31/2025 6:44 AM EDT 05/31/2025 11:34 AM EDT us Junaid Desir MD LAB BLOOD ORDERABLES Final Resul t [facility] [address] [place] [address], documented in this encounter Visit Diagnoses Diagnosis Essential (primary) hypertension Unspecified essential hypertension documented in this encounter Care Teams Pari Mutuel Ticket Seller Relationship Specialty Start Date End Date Ginger Pate MD [address] [place] [phone] PCP - General Internal Medicine 03/22/25 documented as of this encounter
--- OUTSIDE RECORDS SUMMARY | 2025-07-06 22:33 | XMS_ITS | Encounter Summary ---
Author Organization [facility] Address [address] [place] [address] Care Team Providers Care Ornamental Bronze Worker Name Role Phone Ginger Pate MD Primary Care Provider Encounter Details Date Type Department Care Team (Late st Contact Info) Description 02/02/2025 Lab Requisition [facility] - Main Lab [address] [facility] [place] [address] Michelle Erwin MD [address] [place] [address] Other intermediate (current) drug therapy Social History Tobacco Use [...] DIFFERENTIAL Routine 02/02/2025 10:58 AM EDT Other termite control technician (current) drug therapy CBC AND DIFFERENTIAL Routine 02/02/2025 10:58 AM EDT Other termite control technician (current) drug therapy documented in this encounter Results * (ABNORMAL) CBC auto differential (02/02/2025 10:58 AM EDT) [facility] WBC 9.1 4.8 - 10.8 K/mcL LAB HEMETOLOGY METHOD 02/02/2025 12:50 PM [facility] RBC 5.00 4.50 - 5.50 M/mcL LAB HEMETOLOGY METHOD 02/02/2025 12:50 PM EDT [facility] Hemoglobin 11.8(L) 13.5 - 17.5 g/dL LAB HEMETOLOGY METHOD 02/02/2025 12:50 PM [facility] Hematocrit 42.5 42.0 - 54.0 % LAB HEMETOLOGY METHOD 02/02[facility]2025 12[facility] MCV 84.7 79.0 - 98.0 FL LAB HEMETOLOGY METHOD 02/02/2025 12:[facility] MCH 23.5(L) 27.0 - 32.0 pcg LAB HEMETOLOGY METHOD 02/02/2025 12:50 PM [facility] MCHC 27.8(L) 32.0 - 37.0 g/dL LAB HEMETOLOGY METHOD 02/02/2025 12:50 PM [facility] RDW 19.4(H) 11.0 - 15.0 % LAB HEMETOLOGY METHOD 02/02/2025 12:50 PM EDT [facility] Platelets 352 130 - 400 K/mcL LAB HEMETOLOGY METHOD 02/02/2025 12:50 PM [facility] MPV 9.9 7.0 - 11.0 FL LAB HEMETOLOGY METHOD 02/02/2025 12:50 PM [facility] NRBC 0.0 <1.0 % LAB HEMETOLOGY METHOD 02/02/2025 12:50 PM EDT [facility] NRBC Absolute 0.00 <0.10 K/mcL LAB HEMETOLOGY METHOD 02/02/2025 12:50 PM EDT [facility] Neutrophils Relative 69.0 % LAB HEMETOLOGY METHOD 02/02/2025 12:50 PM [facility] Lymphocytes Relative 22.5 % LAB HEMETOLOGY METHOD 02/02/2025 12:50 PM EDT [facility] Monocytes Relative 7.1 % LAB HEMETOLOGY METHOD 02/02/2025 12:50 PM EDT [facility] Eosinophils Relative 0.4 % LAB HEMETOLOGY METHOD 02/02/2025 12:50 PM T [facility] Basophils Relative 0.7 % LAB HEMETOLOGY METHOD 02/02/2025 12:50 PM [facility] Immature Granulocytes Relative 0.3 % LAB HEMETOLOGY METHOD 02/02/2025 12:50 PM [facility] Neutrophils Absolute 6.24 1.50 - 7.00 K/mcL LAB HEMETOLOGY METHOD 02/02/2025 12:50 PM [facility] Lymphocytes Absolute 2.04 1.00 - 5.00 K/mcL LAB HEMETOLOGY METHOD 02/02/2025 12:50 PM [facility] Monocytes Absolute 0.64 0.20 - 1.00 K/mcL LAB HEMETOLOGY METHOD 02/02/2025 12:50 PM T [facility] Eosinophils Absolute 0.04 0.00 - 0.50 K/mcL LAB HEMETOLOGY METHOD 02/02/2025 12:50 PM T [facility] Basophils Absolute 0.06 0.00 - 0.20 K/mcL LAB HEMETOLOGY METHOD 02/02/2025 12:50 PM [facility] Immature Granulocytes Absolute 0.03 0.00 - 0.03 K/mcL LAB HEMETOLOGY METHOD 02/02/2025 12:50 PM EDT [facility] Blood Venous blood specimen / Unknown Venipuncture / Unknown 02/02/2025 10:58 AM EDT 02/02/2025 12:20 PM EDT us Michelle Erwin MD LAB BLOOD ORDERABLES Fi nal Result [facility] [address] [place] [address], documented in this encounter Visit Diagnoses Diagnosis Other termite control technician (current) drug therapy documented in this encounter Additional Health Concerns Infection Onset Date Last Indicated Resolved Time Respiratory Rule-Out 03/22/2025 03/22/2025 025 5:02 AM EDT COVID-19 Rule-Out 03/22/2025 03/22/2025 03/22/2025 5:02 AM EDT documented as of this encounter Care Teams Ornamental Bronze Worker Relationship Specialty Start Date End Date Ginger Pate MD [address] [place] [phone] PCP - General Internal Medicine 03/22/25 documented as of this encounter
--- OUTSIDE RECORDS SUMMARY | 2025-07-06 22:33 | XMS_ITS | Encounter Summary ---
Author Organization [facility] Address [address] [place] [address] Care Team Providers Care Methods Time Analyst Name Role Phone Ginger Pate MD Primary Care Provider Encounter Details Date Type Department Care Team (Late st Contact Info) Description 03/29/2025 Lab Requisition [facility] - Main Lab [address] [facility] [place] [address] Michelle Erwin MD [address] [place] [address] Other halfway (current) drug therapy Social History Tobacco Use [...] on file documented as of this encounter Visit Diagnoses Diagnosis Other exterminator helper termite (current) drug therapy documented in this encounter Care Teams Methods Time Analyst Relationship Specialty Start Date End Date Ginger Pate MD [address] [place] [phone] PCP - General Internal Medicine 03/22/25 documented as of this encounter
--- OUTSIDE RECORDS SUMMARY | 2025-07-06 22:34 | XMS_ITS | Encounter Summary ---
Author Organization [facility] Address [address] [place] [address] Care Team Providers Care Advertising Editor Name Role Phone Ginger Pate MD Primary Care Provider Encounter Details Date Type Department Care Team (Late st Contact Info) Description 12/08/[address] [facility] - Main Lab [address] [facility] [place] [address] Michelle Erwin MD [address] [place] [address] Other shelter (current) drug therapy Social History Tobacco Use [...] Diagnosis Comments CBC WITH AUTO DIFFERENTIAL Routine 12/08/2024 6:36 AM EST Other shelter (current) drug therapy CBC AND DIFFERENTIAL Routine 12/08/2024 6:36 AM EST Other shelter (current) drug therapy documented in this encounter Results * (ABNORMAL) CBC auto differential (12/08/2024 6:36 AM EST) [facility] WBC 11.1(H) 4.8 - 10.8 K/mcL LAB HEMETOLOGY METHOD 12/08/2024 10:06 AM [facility] RBC 4.90 4.50 - 5.50 M/mcL LAB HEMETOLOGY METHOD 12/08/2024 10:06 AM [facility] Hemoglobin 10.8(L) 13.5 - 17.5 g/dL LAB HEMETOLOGY METHOD 12/08/2024 10:06 AM [facility] Hematocrit 38.8(L) 42.0 - 54.0 % LAB HEMETOLOGY METHOD 12/08/2024 10:06 AM [facility] MCV 80.0 79.0 - 98.0 FL LAB HEMETOLOGY METHOD 12/08/2024 10:06 AM [facility] MCH 22.3(L) 27.0 - 32.0 pcg LAB HEMETOLOGY METHOD 12/08/2024 10:06 AM [facility] MCHC 27.8(L) 32.0 - 37.0 g/dL LAB HEMETOLOGY METHOD 12/08/2024 10:06 AM [facility] RDW 18.8(H) 11.0 - 15.0 % LAB HEMETOLOGY METHOD 12/08/2024 10:06 AM [facility] Platelets 320 130 - 400 K/mcL LAB HEMETOLOGY METHOD 12/08/2024 10:06 AM [facility] MPV 9.4 7.0 - 11.0 FL LAB HEMETOLOGY METHOD 12/08/2024 10:06 AM [facility] NRBC 0.0 <1.0 % LAB HEMETOLOGY METHOD 12/08/2024 10:06 AM [facility] NRBC Absolute 0.00 <0.10 K/mcL LAB HEMETOLOGY METHOD 12/08/2024 10:06 AM [facility] Neutrophils Relative 73.9 % LAB HEMETOLOGY METHOD 12/08/2024 10:06 AM [facility] Lymphocytes Relative 17.8 % LAB HEMETOLOGY METHOD 12/08/2024 10:06 AM [facility] Monocytes Relative 7.4 % LAB HEMETOLOGY METHOD 12/08/2024 10:06 AM [facility] Eosinophils Relative 0.2 % LAB HEMETOLOGY METHOD 12/08/2024 10:06 AM [facility] Basophils Relative 0.3 % LAB HEMETOLOGY METHOD 12/08/2024 10:06 AM [facility] Immature Granulocytes Relative 0.4 % LAB HEMETOLOGY METHOD 12/08/2024 10:06 AM [facility] Neutrophils Absolute 8.20(H) 1.50 - 7.00 K/mcL LAB HEMETOLOGY METHOD 12/08/2024 10:06 AM [facility] Lymphocytes Absolute 1.97 1.00 - 5.00 K/mcL LAB HEMETOLOGY METHOD 12/08/2024 10:06 AM [facility] Monocytes Absolute 0.82 0.20 - 1.00 K/mcL LAB HEMETOLOGY METHOD 12/08/2024 10:06 AM [facility] Eosinophils Absolute 0.02 0.00 - 0.50 K/mcL LAB HEMETOLOGY METHOD 12/08/2024 10:06 AM [facility] Basophils Absolute 0.03 0.00 - 0.20 K/mcL LAB HEMETOLOGY METHOD 12/08/2024 10:06 AM [facility] Immature Granulocytes Absolute 0.04(H) 0.00 - 0.03 K/mcL LAB HEMETOLOGY METHOD 12/08/2024 10:06 AM [facility] Blood Venous blood specimen / Unknown Venipuncture / Unknown 12/08/2024 6:36 AM EST 12/08/2024 8:38 AM EST Michelle Erwin MD LAB BLOOD ORDERABLES Fi nal Result [facility] ([facility] [address] [place] [address], documented in this encounter Visit Diagnoses Diagnosis Other adjunct faculty for medical terminology (current) drug therapy documented in this encounter Additional Health Concerns Infection Onset Date Last Indicated Resolved Time Respiratory Rule-Out 03/22/2025 03/22/2025 025 5:02 AM EDT COVID-19 Rule-Out 03/22/2025 03/22/2025 03/22/2025 5:02 AM EDT documented as of this encounter Care Teams Advertising Editor Relationship Specialty Start Date End Date Ginger Pate MD [address] [place] [address] PCP - General Internal Medicine 03/22/25 documented as of this encounter
--- OUTSIDE RECORDS SUMMARY | 2025-07-06 22:34 | XMS_ITS | Clinical Summary ---
Author Organization [address] Address [address] [place] [address] Phone Care Team Providers Care Dairy Feed Sales Consultant Name Role Phone Ginger Pate MD Primary Care Provider Allergies Active Allergy Reactions Criticality Noted Date Comments Amoxicillin 03/22/2025 Sulfa (Sulfonamide Antibiotics) 03/11 Medications atorvastatin (LIPITOR) 40 mg tablet Take 1 tablet (40 mg total) by mouth at bedtime. 3 Active cetirizine (ZyrTEC) 5 mg tablet Take 1 tablet (5 mg total) by mouth 1 (one) time each day. 5 Active cloZAPine (CLOZARIL) 100 mg tablet Take 1 tablet (100 mg total) by mouth at bedtime. Take 1 tablet with 75 mg for a total of 175 mg in AM. Take 1 tablet (100 mg) nightly as well 3 Active cloZAPine (CLOZARIL) 25 mg tablet Take 3 tablets (75 mg total) by mouth 1 (one) time each day. Take with 100 mg for a total of 175 mg in AM 3 Active fluPHENAZine decanoate (PROLIXIN) 25 mg/mL injection Inject 1 mL (25 mg total) into the shoulder, thigh, or buttocks every 14 (fourteen) days. 5 Active fluticasone propionate (FLONASE) 50 mcg/actuation nasal spray Administer 1 spray into each nostril 2 (two) times a day. 5 Active levothyroxine (SYNTHROID, LEVOTHROID) 175 mcg tablet Take 1 tablet (175 mcg total) by mouth 1 (one) time each day before breakfast. 5 Active lithium (ESKALITH) 450 mg CR tablet Take 1 tablet (450 mg total) by mouth 2 times daily. 3 Active metFORMIN (GLUCOPHAGE) 1,000 mg tablet Take 1 tablet (1,000 mg total) by mouth 2 (two) times a day with meals. 3 Active tamsulosin (FLOMAX) 0.4 mg 24 hr capsule Take 1 capsule (0.4 mg total) by mouth 1 (one) time each day. 3 Active albuterol HFA (PROAIR HFA ; PROVENTIL HFA ; VENTOLIN HFA) 90 mcg/actuation inhaler Inhale 2 puffs by mouth 1 (one) time each day if needed for wheezing or shortness of breath. 3 Active atenoloL (TENORMIN) 50 mg tablet Take 0.5 tablets (25 mg total) by mouth 1 (one) time each day. 3 Active insulin detemir (Levemir FlexPen) 100 unit/mL (3 mL) injection pen Inject 25 Units under the skin 1 (one) time each day with dinner. 3 Active insulin aspart (NovoLOG Flexpen U-100 Insulin) 100 unit/mL (3 mL) injection pen Inject 0-12 Units under the skin 3 (three) times a day before meals. <150- 0 units, 151 -200: 2 units, 201-250- 6 units, 251-300- 8 units, 301-350- 10 units, >350 - give 12 units and call PCP 3 Active gabapentin (NEURONTIN) 600 mg tablet Take 1 tablet (600 mg total) by mouth 3 (three) times a day. 3 Active senna (SENOKOT) 8.6 mg tablet Take 2 tablets (17.2 mg total) by mouth 2 (two) times a day if needed for constipation. 5 Active clonazePAM (KlonoPIN) 0.5 mg tablet Take 1 tablet (0.5 mg total) by mouth every 8 (eight) hours if needed for anxiety. 4 Active docusate sodium (COLACE) 100 mg capsule Take 1 capsule (100 mg total) by mouth 1 (one) time each day if needed for constipation. 4 Active nicotine (NICODERM CQ) 14 mg/[address] 1 patch on the skin 1 (one) time each day at the same time. 30 each 5 Active Active Problems Problem Noted Date Diagnosed Date Sepsis ([facility], [facility]) 04/06/2025 History of COPD 04/06/2025 Tobacco use disorder 04/06/2025 Schizoaffective disorder ([facility], [facility] V 28) 04/06/2025 Dysphagia 04/06/2025 Community acquired pneumonia 04/06/2025 Acute hypoxic respiratory fa ilure ([facility], [facility] V[facility]) 03/22/2025 Encounters Date Type Department Care Team Description 06/05/2025 Lab Requisition [facility] [address] [place] [id number] Junaid Desir MD Essential (primary) hypertension 2025 Lab Requisition [facility] [address] [place] [address] Junaid Desir MD Essential (primary) hypertension 05/21/2025 Lab Requisition [facility] [address] [place] [address] Junaid Desir MD Essential (primary) hypertension 05/13/2025 Lab Requisition [facility] [address] [place] [address] Junaid Desir MD Essential (primary) hypertension 05/07/2025 Lab Requisition [facility] [address] [place] [address] Junaid Desir MD Essential (primary) hypertension 05/06/2025 Lab Requisition [facility] [address] [place] [address] Junaid Desir MD Essential (primary) hypertension 04/27/2025 Lab Requisition [facility] Lab [address] [place] [phone] Michelle Erwin MD 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 03/22/2025 2:39 PM EDT - 04/07/2025 10:32 AM EDT Hospital Encounter [facility] 8-[address] [place] [address] Jose Juan Dailey MD Uddin, MD Tj Dozier Vinod, MD Jacob, MD Myrtle Velazquez Akshay, MD Kochar, Tomeka Alvarez, MD Pena, Yadiel Heaton Jr., Yuly Wyatt, Acute hypoxic respiratory failure (CMS/HCC V24, [facility] V28) (Primary Dx) Discharge Disposition: Assisted Care from Last 3 Months Social History Tobacco Use Types Packs/Day Years Used Date Smoking Tobacco: Unknown Passive Smoke Exposure: Past Tobacco Cessation:Counseling Given: No Alcohol Use Standard Drinks/Week Comments Not Currently [...] not to disclose 2024 1:43 AM EDT Obstetrics History Last Filed Vital Signs Vital Sign Reading Time Taken Comments Blood Pressure 115/63 04/07/2025 7:35 AM EDT Pulse 64 04/07/2025 7:35 AM EDT Temperature 37.1 C (98.7 F) 04/07/2025 7:35 AM EDT Respiratory Rate 20 04/07/2025 7:35 AM EDT Oxygen Saturation 98% 04/07/2025 12:01 AM EDT Inhaled Oxygen Concentration - - Weight 86.7 kg (191 lb 2.2 oz) 03/24/2025 12:00 AM EDT Height 182.9 cm (6') 03/26/2025 8:18 AM EDT Body Mass Index 25.92 03/24/2025 12:00 AM EDT Plan of Treatment Health Maintenance Due Date Last Done Comments Diabetes: Annual Foot Exam 1975 Diabetes: Annual Retina Eye Exam 1975 Zoster Vaccines (1 of 2) 2015 Pneumococcal Vaccine: 50+ Years (2 of 2 - PCV) 03/01/2016 03/01/2015 Cholesterol Screening (Lipid Panel) 10/13/2022 Colorectal Cancer Screening: Colonoscopy 10/13/2022 HIV Screening 10/13/2022 Hepatitis C Screening 10/13/2022 Medicare Annual Wellness Visit 10/13/2022 COVID-19 Vaccine ( season) 2024 10/28/2023, 08/23/2023, 09/06/2021, Additional history exists Depression Screening 11/11/2024 DTaP,Tdap,and Td Vaccines (3 - Td or Tdap) 03/01/2025 03/01/2015, 02/03/2013 Diabetes: Annual Urine Albumin-Creatinine Ratio (uACR) 03/22/2025 RSV Immunization Adult Patients (1 - Risk 60-74 years 1-dose series) 2025 Influenza Vaccine (#1) 2025 , 09/24/2019, 08/06/2017, Additional history exists Diabetes: Blood Sugar Control Test (HGBA1C) 09/22/2025 03/22/2025 Social Influencers of Health Screening 03/30/2026 03/30/2025 Diabetes: Annual GFR (Glomerular Filtration Rate) 05/31/2026 05/31/2025, 05/24/2025, 05/17/2025, Additional history exists Hypertension/CHF/CAD Annual BMP Blood Test 05/31/2026 05/31/2025, 05/24/2025, 05/17/2025, Additional history exists HIB Vaccines Aged Out No longer eligi ble based on patient's age to complete this topic HPV Vaccines Aged Out No longer eligi ble based on patient's age to complete this topic Hepatitis A Vaccines Aged Out No long er eligible based on patient's age to complete this topic Hepatitis B Vaccines Aged Out No long er eligible based on patient's age to complete this topic IPV Vaccines Aged Out No longer eligi ble based on patient's age to complete this topic MMR Vaccines Aged Out No longer eligi ble based on patient's age to complete this topic Meningococcal ACWY Vaccine Aged Out N o longer eligible based on patient's age to complete this topic Meningococcal B Vaccine Aged Out No l onger eligible based on patient's age to complete this topic RSV Immunization Patients Under 20 months Aged Out No longer eligible based on patient's age to complete this topic Varicella Vaccines Aged Out No longer eligible based on patient's age to complete this topic Procedures Procedure Name Priority Date/Time Associated Diagnosis Comments COMPLETE BLOOD COUNT Routine 05/31/2025 6:44 AM EDT Essential (primary) hypertension BASIC METABOLIC PANEL Routine 05/31/2025 6:44 AM EDT Essential (primary) hypertension COMPLETE BLOOD COUNT Routine 05/24/2025 7:06 AM EDT Essential (primary) hypertension BASIC METABOLIC PANEL Routine 05/24/2025 7:06 AM EDT Essential (primary) hypertension BASIC METABOLIC PANEL Routine 05/17/2025 7:01 AM EDT Essential (primary) hypertension COMPLETE BLOOD COUNT Routine 05/17/2025 7:01 AM EDT Essential (primary) hypertension COMPLETE BLOOD COUNT Routine 05/10/2025 6:56 AM EDT Essential (primary) hypertension BASIC METABOLIC PANEL Routine 05/10/2025 6:56 AM EDT Essential (primary) hypertension COMPREHENSIVE METABOLIC PANEL Routine 05/06/2025 5:28 AM EDT Essential (primary) hypertension COMPLETE BLOOD COUNT Routine 05/06/2025 5:28 AM EDT Essential (primary) hypertension CBC WITH AUTO DIFFERENTIAL Routine 04/27/2025 8:25 AM EDT Other mcfp (current) drug therapy CBC AND DIFFERENTIAL Routine 04/27/2025 8:25 AM EDT 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 ECG ANNOTATED 04/11/2025 POCT GLUCOSE BLOOD Routine 04/07/2025 8: 43 AM EDT POCT GLUCOSE BLOOD Routine 04/06/2025 8: 26 PM EDT POCT GLUCOSE BLOOD Routine 04/06/2025 4: 56 PM EDT POCT GLUCOSE BLOOD Routine 04/06/2025 12 :04 PM EDT POCT GLUCOSE BLOOD Routine 04/06/2025 8: 18 AM EDT POCT GLUCOSE BLOOD Routine 04/05/2025 9: 28 PM EDT OXYGEN THERAPY, ADULT Routine 04/05/2025 8:00 PM EDT POCT GLUCOSE BLOOD Routine 04/05/2025 6: 02 PM EDT POCT GLUCOSE BLOOD Routine 04/05/2025 12 :15 PM EDT POCT GLUCOSE BLOOD Routine 04/05/2025 8: 07 AM EDT OXYGEN THERAPY, ADULT Routine 04/05/2025 8:00 AM EDT HEMOGLOBIN A1C Routine 03/22/2025 4:05 PM EDT from Last 3 Months or Most Recently Relevant to Health Maintenance Results * (ABNORMAL) Complete blood count (05/31/2025 6:44 AM EDT) Only the most recent of5 resultswithin the time period is included. [facility] WBC 10.7 4.8 - 10.8 K/mcL LAB HEMETOLOGY METHOD 05/31/2025 12:47 PM [facility] RBC 4.10(L) 4.50 - 5.50 M/mcL LAB HEMETOLOGY METHOD 05/31/2025 12:47 PM [facility] Hemoglobin 10.1(L) 13.5 - 17.5 g/dL LAB HEMETOLOGY METHOD 05/31/2025 12:47 PM [facility] Hematocrit 35.5(L) 42.0 - 54.0 % LAB HEMETOLOGY METHOD 05/31/2025 12:47 PM [facility] MCV 86.6 79.0 - 98.0 FL LAB HEMETOLOGY METHOD 05/31/2025 12:47 PM [facility] MCH 24.6(L) 27.0 - 32.0 pcg LAB HEMETOLOGY METHOD 05/31/2025 12:47 PM [facility] MCHC 28.5(L) 32.0 - 37.0 g/dL LAB HEMETOLOGY METHOD 05/31/2025 12:47 PM [facility] RDW 18.9(H) 11.0 - 15.0 % LAB HEMETOLOGY METHOD 05/31/2025 12:47 PM [facility] Platelets 305 130 - 400 K/mcL LAB HEMETOLOGY METHOD 05/31/2025 12:47 PM [facility] MPV 10.0 7.0 - 11.0 FL LAB HEMETOLOGY METHOD 05/31/2025 12:47 PM [facility] NRBC 0.0 <1.0 % LAB HEMETOLOGY METHOD 05/31/2025 12:47 PM [facility] NRBC Absolute 0.00 <0.10 K/[facility] LAB HEMETOLOGY METHOD 05/31/2025 12:47 PM EDT [facility] Blood Venous blood specimen / Unknown Venipuncture / Unknown 05/31/2025 6:44 AM EDT 05/31/2025 11:34 AM EDT us Junaid Desir MD LAB BLOOD ORDERABLES Final Resul t [facility] [address] [place] [address], [place] [phone] * (ABNORMAL) Basic metabolic panel (05/31/2025 6:44 AM EDT) Only the most recent of4 resultswithin the time period is included. Sodium 139 133 - 145 mmol/L LAB CHEMISTRY METHOD 05/31/2025 4:14 PM [facility] Potassium 3.5 3.5 - 5.5 mmol/L LAB CHEMISTRY METHOD 05/31/2025 4:14 PM [facility] Chloride 104 96 - 110 mmol/L LAB CHEMISTRY METHOD 05/31/2025 4:14 PM [facility] CO2 30 21 - 32 mmol/L LAB CHEMISTRY METHOD 05/31/2025 4:14 PM [facility] Anion Gap 5 3 - 11 LAB CHEMISTRY METHOD 05/31/2025 4:14 PM [facility] Glucose 38(LL) 70 - 100 mg/dL LAB CHEMISTRY METHOD 05/31/2025 4:14 PM [facility] BUN 9 5 - 25 mg/dL LAB CHEMISTRY METHOD 05/31/2025 4:14 PM [facility] Creatinine 0.54(L) 0.70 - 1.30 mg/dL LAB CHEMISTRY METHOD 05/31/2025 4:14 PM [facility] eGFR 114 >=60 mL/min/1. 73m2 LAB CHEMISTRY METHOD 05/31/2025 4:14 PM EDT [facility] Comment:Calculation based on the Chronic Kidney Disease Epidemiology Collaboration (CKD-EPI) equation refit without adjustment for race. BUN/Creatinine Ratio 16.7 LAB CHEMISTRY METHOD 05/31/2025 4:14 PM [facility] Calcium 8.8 8.5 - 10.5 mg/dL LAB CHEMISTRY METHOD 05/31/2025 4:14 PM [facility] Blood Venous blood specimen / Unknown Venipuncture / Unknown 05/31/2025 6:44 AM EDT 05/31/2025 11:34 AM EDT us Junaid Desir MD LAB BLOOD ORDERABLES Final Resul t [facility] [address] [place] [address], * (ABNORMAL) Comprehensive metabolic panel (05/06/2025 5:28 AM EDT) Sodium 139 133 - 145 mmol/L LAB CHEMISTRY METHOD 05/06/2025 10:38 AM [facility] Potassium 4.2 3.5 - 5.5 mmol/L LAB CHEMISTRY METHOD 05/06/2025 10:38 AM [facility] Chloride 102 96 - 110 mmol/L LAB CHEMISTRY METHOD 05/06/2025 10:38 AM [facility] CO2 33(H) 21 - 32 mmol/L LAB CHEMISTRY METHOD 05/06/2025 10:38 AM [facility] Anion Gap 4 3 - 11 LAB CHEMISTRY METHOD 05/06/2025 10:38 AM [facility] Glucose 104(H) 70 - 100 mg/dL LAB CHEMISTRY METHOD 05/06/2025 10:38 AM [facility] BUN 13 5 - 25 mg/dL LAB CHEMISTRY METHOD 05/06/2025 10:38 AM [facility] Creatinine 0.65(L) 0.70 - 1.30 mg/dL LAB CHEMISTRY METHOD 05/06/2025 10:38 AM [facility] eGFR 109 >=60 mL/min/1. 73m2 LAB CHEMISTRY METHOD 05/06/2025 10:38 AM [facility] Comment:Calculation based on the Chronic Kidney Disease Epidemiology Collaboration (CKD-EPI) equation refit without adjustment for race. BUN/Creatinine Ratio 20.0 LAB CHEMISTRY METHOD 05/06/2025 10:38 AM [facility] Calcium 8.9 8.5 - 10.5 mg/dL LAB CHEMISTRY METHOD 05/06/2025 10:38 AM [facility] AST (SGOT) 21 10 - 42 unit/L LAB CHEMISTRY METHOD 05/06/2025 10:38 AM [facility] ALT (SGPT) 40 10 - 60 unit/L LAB CHEMISTRY METHOD 05/06/2025 10:38 AM [facility] Alkaline Phosphatase 62 42 - 121 unit/L LAB CHEMISTRY METHOD 05/06/2025 10:38 AM [facility] Total Protein 6.0 6.0 - 8.0 g/dL LAB CHEMISTRY METHOD 05/06/2025 10:38 AM [facility] Albumin 2.8(L) 3.2 - 5.0 g/dL LAB CHEMISTRY METHOD 05/06/2025 10:38 AM [facility] Total Bilirubin 0.5 0.0 - 1.4 mg/dL LAB CHEMISTRY METHOD 05/06/2025 10:38 AM [facility] Blood Venous blood specimen / Unknown Venipuncture / Unknown 05/06/2025 5:28 AM EDT 05/06/2025 8:29 AM EDT us Junaid Desir MD LAB BLOOD ORDERABLES Final Resul t [facility] [address] [place] [address], * (ABNORMAL) CBC auto differential (04/27/2025 8:25 AM EDT) [facility] Signature WBC 10.3 4.8 - 10.8 K/mcL LAB HEMETOLOGY METHOD 04/27/2025 10:48 AM EDT [facility] RBC 5.00 4.50 - 5.50 M/mcL LAB HEMETOLOGY METHOD 04/27/2025 10:48 AM EDT [facility] Hemoglobin 12.0(L) 13.5 - 17.5 g/dL LAB HEMETOLOGY METHOD 04/27/2025 10:48 AM EDT [facility] Hematocrit 42.5 42.0 - 54.0 % LAB HEMETOLOGY METHOD 04/27/2025 10:48 AM EDT [facility] MCV 84.5 79.0 - 98.0 FL LAB HEMETOLOGY METHOD 04/27/2025 10:48 AM EDT [facility] MCH 23.9(L) 27.0 - 32.0 pcg LAB HEMETOLOGY METHOD 04/27/2025 10:48 AM EDT [facility] MCHC 28.2(L) 32.0 - 37.0 g/dL LAB HEMETOLOGY METHOD 04/27/2025 10:48 AM EDT [facility] RDW 20.1(H) 11.0 - 15.0 % LAB HEMETOLOGY METHOD 04/27/2025 10:48 AM EDT [facility] Platelets 288 130 - 400 K/mcL LAB HEMETOLOGY METHOD 04/27/2025 10:48 AM EDT [facility] MPV 9.7 7.0 - 11.0 FL LAB HEMETOLOGY METHOD 04/27/2025 10:48 AM EDT [facility] NRBC 0.0 <1.0 % LAB HEMETOLOGY METHOD 04/27/2025 10:48 AM [facility] NRBC Absolute 0.00 <0.10 K/mcL LAB HEMETOLOGY METHOD 04/27/2025 10:48 AM [facility] Neutrophils Relative 81.3 % LAB HEMETOLOGY METHOD 04/27/2025 10:48 AM [facility] Lymphocytes Relative 11.0 % LAB HEMETOLOGY METHOD 04/27/2025 10:48 AM [facility] Monocytes Relative 6.8 % LAB HEMETOLOGY METHOD 04/27/2025 10:48 AM [facility] Eosinophils Relative 0.2 % LAB HEMETOLOGY METHOD 04/27/2025 10:48 AM [facility] Basophils Relative 0.4 % LAB HEMETOLOGY METHOD 04/27/2025 10:48 AM [facility] Immature Granulocytes Relative 0.3 % LAB HEMETOLOGY METHOD 04/27/2025 10:48 AM [facility] Neutrophils Absolute 8.35(H) 1.50 - 7.00 K/mcL LAB HEMETOLOGY METHOD 04/27/2025 10:48 AM [facility] Lymphocytes Absolute 1.13 1.00 - 5.00 K/mcL LAB HEMETOLOGY METHOD 04/27/2025 10:48 AM [facility] Monocytes Absolute 0.70 0.20 - 1.00 K/mcL LAB HEMETOLOGY METHOD 04/27/2025 10:48 AM [facility] Eosinophils Absolute 0.02 0.00 - 0.50 K/mcL LAB HEMETOLOGY METHOD 04/27/2025 10:48 AM [facility] Basophils Absolute 0.04 0.00 - 0.20 K/mcL LAB HEMETOLOGY METHOD 04/27/2025 10:48 AM EDT [facility] Immature Granulocytes Absolute 0.03 0.00 - 0.03 K/mcL LAB HEMETOLOGY METHOD 04/27/2025 10:48 AM EDT [facility] Blood Venous blood specimen / Unknown Venipuncture / Unknown 04/27/2025 8:25 AM EDT 04/27/2025 9:25 AM EDT us Michelle Erwin MD LAB BLOOD ORDERABLES Fi nal Result [facility] [address] [place] [address], [place] [phone] * ECG-Annotated (04/11/2025) us Provider Onbase MD ECG ORDERABLES Final Result * POCT Glucose, blood (04/07/2025 8:43 AM EDT) Only the most recent of9 resultswithin the time period is included. Glucose POCT 127 70 - 199 mg/dL 04/07/2025 8:43 AM EDT [facility] Comment: Fasting Reference Range: 70-99 mg/dL Non-Fasting Reference Range: 70-199 mg/dL Blood Capillary blood specimen / Unknown 04/07/2025 8:43 AM EDT 04/07/2025 8:44 AM EDT us Yuly Cooku DO LAB POINT OF CARE TEST DOCKED DEVICE UNSOLICITED RESULTS Final Result [facility] [address] [place] [address], [place] [phone] * (ABNORMAL) Hemoglobin A1c (03/22/2025 4:05 PM EDT) Hemoglobin A1C 6.3(H) <5.7 % LAB CHEMISTRY METHOD 03/23/2025 8:59 AM EDT [facility] Mean Bld Glu Estim. 134 mg/dL LAB CHEMISTRY METHOD 03/23/2025 8:59 AM EDT [facility] Blood Venous blood specimen / Unknown Venipuncture / Unknown 03/22/2025 4:05 PM EDT 03/22/2025 4:23 PM EDT Narrative [facility] - 03/23/2025 8:59 AM EDT ADA Guidelines: Increased risk Diabetes Mellitus A1C 5.7 - 6.4% and Fasting Blood Glucose 100 - 125 mg/dl Diabetes Mellitus: A1C >6.5% and Fasting Blood Glucose >125 mg/dl us Yarelis Ortiz NP LAB BLOOD ORDERABLES Final R esult [facility] [address] [place] [address], from Last 3 Months or Most Recently Relevant to Health Maintenance Insurance MEDICARE [place]ICAID - [place] Advance Directives Documents on File Type Date Recorded Patient Webmethods Architect Expl ashia Health Care Decision (hx) 03/04/2024 HE ALTH CARE PROXY * Full Code - Default (Latest Code Status on File) Date Activated Date Inactivated Comments 03/22/2025 3:00 PM 04/07/2025 12:32 PM This is ord er is used when code status has not been discussed with the patient, or code status is otherwise unknown/unconfirmed To update the patient's code status, place a code status order. Do not modify or discontinue any currently active code status orders. Care Teams Dairy Feed Sales Consultant Relationship Specialty Start Date End Date Ginger Pate MD [address] [place] [id number] PCP - General Internal Medicine 03/22/25
--- OUTSIDE RECORDS SUMMARY | 2025-07-06 22:34 | XMS_ITS | Encounter Summary ---
Author Organization [facility] Address [address] [place] [address] Care Team Providers Care Heart Specialist Name Role Phone Ginger Pate MD Primary Care Provider Encounter Details Date Type Department Care Team (Late st Contact Info) Description 03/02/2025 Lab Requisition [facility] - Main Lab [address] [place] [address] Michelle Erwin MD [address] [place] [address] Other care home (current) drug therapy Social History Tobacco Use [...] Diagnosis Comments CBC WITH AUTO DIFFERENTIAL Routine 03/02/2025 6:20 AM EDT Other care home (current) drug therapy CBC AND DIFFERENTIAL Routine 03/02/2025 6:20 AM EDT Other care home (current) drug therapy documented in this encounter Results * (ABNORMAL) CBC auto differential (03/02/2025 6:20 AM EDT) [facility] WBC 11.8(H) 4.8 - 10.8 K/mcL LAB HEMETOLOGY METHOD 03/02/2025 8:36 AM [facility] RBC 5.30 4.50 - 5.50 M/mcL LAB HEMETOLOGY METHOD 03/02/2025 8:36 AM [facility] Hemoglobin 12.4(L) 13.5 - 17.5 g/dL LAB HEMETOLOGY METHOD 03/02/2025 8:36 AM [facility] Hematocrit 43.8 42.0 - 54.0 % LAB HEMETOLOGY METHOD 03/02/2025 8:36 AM [facility] MCV 82.8 79.0 - 98.0 FL LAB HEMETOLOGY METHOD 03/02/2025 8:36 AM [facility] MCH 23.4(L) 27.0 - 32.0 pcg LAB HEMETOLOGY METHOD 03/02/2025 8:36 AM [facility] MCHC 28.3(L) 32.0 - 37.0 g/dL LAB HEMETOLOGY METHOD 03/02/2025 8:36 AM [facility] RDW 17.8(H) 11.0 - 15.0 % LAB HEMETOLOGY METHOD 03/02/2025 8:36 AM [facility] Platelets 361 130 - 400 K/mcL LAB HEMETOLOGY METHOD 03/02/2025 8:36 AM [facility] MPV 9.6 7.0 - 11.0 FL LAB HEMETOLOGY METHOD 03/02/2025 8:36 AM [facility] NRBC 0.0 <1.0 % LAB HEMETOLOGY METHOD 03/02/2025 8:36 AM [facility] NRBC Absolute 0.00 <0.10 K/mcL LAB HEMETOLOGY METHOD 03/02/2025 8:36 AM T [facility] Neutrophils Relative 71.3 % LAB HEMETOLOGY METHOD 03/02/2025 8:36 AM [facility] Lymphocytes Relative 21.2 % LAB HEMETOLOGY METHOD 03/02/2025 8:36 AM T [facility] Monocytes Relative 6.1 % LAB HEMETOLOGY METHOD 03/02/2025 8:36 AM [facility] Eosinophils Relative 0.8 % LAB HEMETOLOGY METHOD 03/02/2025 8:36 AM [facility] Basophils Relative 0.3 % LAB HEMETOLOGY METHOD 03/02/2025 8:36 AM [facility] Immature Granulocytes Relative 0.3 % LAB HEMETOLOGY METHOD 03/02/2025 8:36 AM [facility] Neutrophils Absolute 8.38(H) 1.50 - 7.00 K/mcL LAB HEMETOLOGY METHOD 03/02/2025 8:36 AM [facility] Lymphocytes Absolute 2.50 1.00 - 5.00 K/mcL LAB HEMETOLOGY METHOD 03/02/2025 8:36 AM [facility] Monocytes Absolute 0.72 0.20 - 1.00 K/mcL LAB HEMETOLOGY METHOD 03/02/2025 8:36 AM [facility] Eosinophils Absolute 0.09 0.00 - 0.50 K/mcL LAB HEMETOLOGY METHOD 03/02/2025 8:36 AM [facility] Basophils Absolute 0.04 0.00 - 0.20 K/mcL LAB HEMETOLOGY METHOD 03/02/2025 8:36 AM [facility] Immature Granulocytes Absolute 0.04(H) 0.00 - 0.03 K/mcL LAB HEMETOLOGY METHOD 03/02/2025 8:36 AM EDT [facility] Blood Venous blood specimen / Unknown Venipuncture / Unknown 03/02/2025 6:20 AM EDT 03/02/2025 8:19 AM EDT us Michelle Erwin MD LAB BLOOD ORDERABLES Fi nal Result [facility] [address] [place] [address], documented in this encounter Visit Diagnoses Diagnosis Other care home (current) drug therapy documented in this encounter Additional Health Concerns Infection Onset Date Last Indicated Resolved Time Respiratory Rule-Out 03/22/2025 03/22/2025 025 5:02 AM EDT COVID-19 Rule-Out 03/22/2025 03/22/2025 03/22/2025 5:02 AM EDT documented as of this encounter Care Teams Heart Specialist Relationship Specialty Start Date End Date Ginger Pate MD [address] [place] [address] PCP - General Internal Medicine 03/22/25 documented as of this encounter
--- OUTSIDE RECORDS SUMMARY | 2025-07-06 22:34 | XMS_ITS | Encounter Summary ---
Author Organization [facility] Address [address] [place] [address] Care Team Providers Care Route Agent Name Role Phone Ginger Pate MD Primary Care Provider Encounter Details Date Type Department Care Team (Late st Contact Info) Description 05/13/2025 Lab Requisition [facility] - Main Lab [address] [facility] [place] [address] Junaid Desir MD [address] [place] [address] [address] [place], [phone] Essential (primary) hypertension Social History Tobacco [...] Associated Diagnosis Comments COMPLETE BLOOD COUNT Routine 05/17/2025 7:01 AM EDT Essential (primary) hypertension BASIC METABOLIC PANEL Routine 05/17/2025 7:01 AM EDT Essential (primary) hypertension documented in this encounter Results * (ABNORMAL) Basic metabolic panel (05/17/2025 7:01 AM EDT) Sodium 137 133 - 145 mmol/L LAB CHEMISTRY METHOD 05/17/2025 12:34 PM [facility] Potassium 4.0 3.5 - 5.5 mmol/L LAB CHEMISTRY METHOD 05/17/2025 12:34 PM [facility] Chloride 101 96 - 110 mmol/L LAB CHEMISTRY METHOD 05/17/2025 12:34 PM [facility] CO2 31 21 - 32 mmol/L LAB CHEMISTRY METHOD 05/17/2025 12:34 PM [facility] Anion Gap 5 3 - 11 LAB CHEMISTRY METHOD 05/17/2025 12:34 PM [facility] Glucose 75 70 - 100 mg/dL LAB CHEMISTRY METHOD 05/17/2025 12:34 PM [facility] BUN 8 5 - 25 mg/dL LAB CHEMISTRY METHOD 05/17/2025 12:34 PM [facility] Creatinine 0.69(L) 0.70 - 1.30 mg/dL LAB CHEMISTRY METHOD 05/17/2025 12:34 PM [facility] eGFR 107 >=60 mL/min/1. 73m2 LAB CHEMISTRY METHOD 05/17/2025 12:34 PM [facility] Comment:Calculation based on the Chronic Kidney Disease Epidemiology Collaboration (CKD-EPI) equation refit without adjustment for race. BUN/Creatinine Ratio 11.6 LAB CHEMISTRY METHOD 05/17/2025 12:34 PM EDT [facility] Calcium 8.8 8.5 - 10.5 mg/dL LAB CHEMISTRY METHOD 05/17/2025 12:34 PM T [facility] Blood Venous blood specimen / Unknown Venipuncture / Unknown 05/17/2025 7:01 AM EDT 05/17/2025 10:53 AM EDT us Junaid Desir MD LAB BLOOD ORDERABLES Final Resul t [facility] [address] [place] [address], * (ABNORMAL) Complete blood count (05/17/2025 7:01 AM EDT) WBC 10.9(H) 4.8 - 10.8 K/mcL LAB HEMETOLOGY METHOD 05/17/2025 11:08 AM [facility] RBC 4.60 4.50 - 5.50 M/mcL LAB HEMETOLOGY METHOD 05/17/2025 11:08 AM [facility] Hemoglobin 10.8(L) 13.5 - 17.5 g/dL LAB HEMETOLOGY METHOD 05/17/2025 11:08 AM [facility] Hematocrit 38.6(L) 42.0 - 54.0 % LAB HEMETOLOGY METHOD 05/17/2025 11:08 AM [facility] MCV 84.8 79.0 - 98.0 FL LAB HEMETOLOGY METHOD 05/17/2025 11:08 AM [facility] MCH 23.7(L) 27.0 - 32.0 pcg LAB HEMETOLOGY METHOD 05/17/2025 11:08 AM [facility] MCHC 28.0(L) 32.0 - 37.0 g/dL LAB HEMETOLOGY METHOD 05/17/2025 11:08 AM EDT [facility] RDW 18.8(H) 11.0 - 15.0 % LAB HEMETOLOGY METHOD 05/17/2025 11:08 AM EDT [facility] Platelets 337 130 - 400 K/mcL LAB HEMETOLOGY METHOD 05/17/2025 11:08 AM EDT [facility] MPV 9.9 7.0 - 11.0 FL LAB HEMETOLOGY METHOD 05/17/2025 11:08 AM EDT [facility] NRBC 0.0 <1.0 % LAB HEMETOLOGY METHOD 05/17/2025 11:08 AM EDT [facility] NRBC Absolute 0.00 <0.10 K/mcL LAB HEMETOLOGY METHOD 05/17/2025 11:08 AM EDT [facility] Blood Venous blood specimen / Unknown Venipuncture / Unknown 05/17/2025 7:01 AM EDT 05/17/2025 10:53 AM EDT us Junaid Desir MD LAB BLOOD ORDERABLES Final Resul t [facility] [address] [place] [address], documented in this encounter Visit Diagnoses Diagnosis Essential (primary) hypertension Unspecified essential hypertension documented in this encounter Care Teams Route Agent Relationship Specialty Start Date End Date Ginger Pate MD [address] [place] [phone] PCP - General Internal Medicine 03/22/25 documented as of this encounter
--- OUTSIDE RECORDS SUMMARY | 2025-07-06 22:34 | XMS_ITS | Encounter Summary ---
Author Organization [facility] [address] Address [address] [place] [address] Care Team Providers Care Entry Level Buyer Name Role Phone Ginger Pate MD Primary Care Provider Encounter Details Date Type Department Care Team (Late st Contact Info) Description 05/21/2025 Lab Requisition [facility] - Main Lab [address] [facility] [place] [address] Junaid Desir MD [address] [place] [address] [address] [place], [phone] Essential (primary) hypertension Social History Tobacco [...] Associated Diagnosis Comments COMPLETE BLOOD COUNT Routine 05/24/2025 7:06 AM EDT Essential (primary) hypertension BASIC METABOLIC PANEL Routine 05/24/2025 7:06 AM EDT Essential (primary) hypertension documented in this encounter Results * (ABNORMAL) Complete blood count (05/24/2025 7:06 AM EDT) [facility] WBC 9.0 4.8 - 10.8 K/mcL LAB HEMETOLOGY METHOD 05/24/2025 11:35 AM [facility] RBC 4.30(L) 4.50 - 5.50 M/mcL LAB HEMETOLOGY METHOD 05/24/2025 11:35 AM [facility] Hemoglobin 10.4(L) 13.5 - 17.5 g/dL LAB HEMETOLOGY METHOD 05/24/2025 11:35 AM [facility] Hematocrit 36.4(L) 42.0 - 54.0 % LAB HEMETOLOGY METHOD 05/24/2025 11:35 AM [facility] MCV 84.8 79.0 - 98.0 FL LAB HEMETOLOGY METHOD 05/24/2025 11:35 AM [facility] MCH 24.2(L) 27.0 - 32.0 pcg LAB HEMETOLOGY METHOD 05/24/2025 11:35 AM [facility] MCHC 28.6(L) 32.0 - 37.0 g/dL LAB HEMETOLOGY METHOD 05/24/2025 11:35 AM [facility] RDW 18.5(H) 11.0 - 15.0 % LAB HEMETOLOGY METHOD 05/24/2025 11:35 AM [facility] Platelets 301 130 - 400 K/mcL LAB HEMETOLOGY METHOD 05/24/2025 11:35 AM EDT [facility] MPV 9.9 7.0 - 11.0 FL LAB HEMETOLOGY METHOD 05/24/2025 11:35 AM EDT [facility] NRBC 0.0 <1.0 % LAB HEMETOLOGY METHOD 05/24/2025 11:35 AM EDT [facility] NRBC Absolute 0.00 <0.10 K/mcL LAB HEMETOLOGY METHOD 05/24/2025 11:35 AM EDT [facility] Blood Venous blood specimen / Unknown Venipuncture / Unknown 05/24/2025 7:06 AM EDT 05/24/2025 11:07 AM EDT us Junaid Desir MD LAB BLOOD ORDERABLES Final Resul t [facility] [address] [place] [address], [place] [phone] * (ABNORMAL) Basic metabolic panel (05/24/2025 7:06 AM EDT) Sodium 136 133 - 145 mmol/L LAB CHEMISTRY METHOD 05/24/2025 1:52 PM [facility] Potassium 3.9 3.5 - 5.5 mmol/L LAB CHEMISTRY METHOD 05/24/2025 1:52 PM [facility] Chloride 102 96 - 110 mmol/L LAB CHEMISTRY METHOD 05/24/2025 1:52 PM [facility] CO2 31 21 - 32 mmol/L LAB CHEMISTRY METHOD 05/24/2025 1:52 PM [facility] Anion Gap 3 3 - 11 LAB CHEMISTRY METHOD 05/24/2025 1:52 PM [facility] Glucose 77 70 - 100 mg/dL LAB CHEMISTRY METHOD 05/24/2025 1:52 PM [facility] BUN 8 5 - 25 mg/dL LAB CHEMISTRY METHOD 05/24/2025 1:52 PM EDT [facility] Creatinine 0.55(L) 0.70 - 1.30 mg/dL LAB CHEMISTRY METHOD 05/24/2025 1:52 PM EDT [facility] eGFR 114 >=60 mL/min/1. 73m2 LAB CHEMISTRY METHOD 05/24/2025 1:52 PM EDT [facility] Comment:Calculation based on the Chronic Kidney Disease Epidemiology Collaboration (CKD-EPI) equation refit without adjustment for race. BUN/Creatinine Ratio 14.5 LAB CHEMISTRY METHOD 05/24/2025 1:52 PM EDT [facility] Calcium 8.9 8.5 - 10.5 mg/dL LAB CHEMISTRY METHOD 05/24/2025 1:52 PM EDT [facility] Blood Venous blood specimen / Unknown Venipuncture / Unknown 05/24/2025 7:06 AM EDT 05/24/2025 11:07 AM EDT us Junaid Desir MD LAB BLOOD ORDERABLES Final Resul t [facility] [address] [place] [address], documented in this encounter Visit Diagnoses Diagnosis Essential (primary) hypertension Unspecified essential hypertension documented in this encounter Care Teams Entry Level Buyer Relationship Specialty Start Date End Date Ginger Pate MD [address] [place] [phone] PCP - General Internal Medicine 03/22/25 documented as of this encounter
--- OUTSIDE RECORDS SUMMARY | 2025-07-06 22:34 | XMS_ITS | Encounter Summary ---
Author Organization [facility] Address [address] [place] [address] Care Team Providers Care Bessemer Converter Blower Name Role Phone Ginger Pate MD Primary Care Provider Encounter Details Date Type Department Care Team (Late st Contact Info) Description 06/05/[address] [facility] - Main Lab [address] [facility] [place] [address] Junaid Desir MD [address] [place] [address] [address] [place], [phone] Essential (primary) hypertension Social History Tobacco [...] as of this encounter Visit Diagnoses Diagnosis Essential (primary) hypertension Unspecified essential hypertension documented in this encounter Care Teams Bessemer Converter Blower Relationship Specialty Start Date End Date Ginger Pate MD [address] [place] [phone] PCP - General Internal Medicine 03/22/25 documented as of this encounter
--- OUTSIDE RECORDS SUMMARY | 2025-07-06 22:34 | XMS_ITS | Encounter Summary ---
Author Organization [facility] Address [address] [place] [address] Care Team Providers Care Lunch Truck Operator Name Role Phone Ginger Pate MD Primary Care Provider Encounter Details Date Type Department Care Team (Late st Contact Info) Description 10/13/2024 Lab Requisition [facility] - Main Lab [address] [facility] [place] [address] Michelle Erwin MD [address] [place] [address] Other long-term (current) drug therapy Social History Tobacco Use [...] Diagnosis Comments CBC WITH AUTO DIFFERENTIAL Routine 10/13/2024 6:35 AM EST Other long-term (current) drug therapy CBC AND DIFFERENTIAL Routine 10/13/2024 6:35 AM EST Other long-term (current) drug therapy documented in this encounter Results * (ABNORMAL) CBC auto differential (10/13/2024 6:35 AM EST) [facility] WBC 8.5 4.8 - 10.8 K/mcL LAB HEMETOLOGY METHOD 10/13/2024 10:47 AM [facility] RBC 4.70 4.50 - 5.50 M/mcL LAB HEMETOLOGY METHOD 10/13/2024 10:47 AM [facility] Hemoglobin 10.1(L) 13.5 - 17.5 g/dL LAB HEMETOLOGY METHOD 10/13/2024 10:47 AM [facility] Hematocrit 37.4(L) 42.0 - 54.0 % LAB HEMETOLOGY METHOD 10/13/2024 10:47 AM [facility] MCV 78.9(L) 79.0 - 98.0 FL LAB HEMETOLOGY METHOD 10/13/2024 10:47 AM [facility] MCH 21.3(L) 27.0 - 32.0 pcg LAB HEMETOLOGY METHOD 10/13/2024 10:47 AM [facility] MCHC 27.0(L) 32.0 - 37.0 g/dL LAB HEMETOLOGY METHOD 10/13/2024 10:47 AM [facility] RDW 21.2(H) 11.0 - 15.0 % LAB HEMETOLOGY METHOD 10/13/2024 10:47 AM [facility] Platelets 321 130 - 400 K/mcL LAB HEMETOLOGY METHOD 10/13/2024 10:47 AM [facility] MPV 9.7 7.0 - 11.0 FL LAB HEMETOLOGY METHOD 10/13/2024 10:47 AM [facility] NRBC 0.0 <1.0 % LAB HEMETOLOGY METHOD 10/13/2024 10:47 AM [facility] NRBC Absolute 0.00 <0.10 K/mcL LAB HEMETOLOGY METHOD 10/13/2024 10:47 AM [facility] Neutrophils Relative 68.1 % LAB HEMETOLOGY METHOD 10/13/2024 10:47 AM [facility] Lymphocytes Relative 23.0 % LAB HEMETOLOGY METHOD 10/13/2024 10:47 AM [facility] Monocytes Relative 7.7 % LAB HEMETOLOGY METHOD 10/13/2024 10:47 AM [facility] Eosinophils Relative 0.2 % LAB HEMETOLOGY METHOD 10/13/2024 10:47 AM [facility] Basophils Relative 0.6 % LAB HEMETOLOGY METHOD 10/13/2024 10:47 AM [facility] Immature Granulocytes Relative 0.4 % LAB HEMETOLOGY METHOD 10/13/2024 10:47 AM [facility] Neutrophils Absolute 5.77 1.50 - 7.00 K/mcL LAB HEMETOLOGY METHOD 10/13/2024 10:47 AM [facility] Lymphocytes Absolute 1.95 1.00 - 5.00 K/mcL LAB HEMETOLOGY METHOD 10/13/2024 10:47 AM [facility] Monocytes Absolute 0.65 0.20 - 1.00 K/mcL LAB HEMETOLOGY METHOD 10/13/2024 10:47 AM [facility] Eosinophils Absolute 0.02 0.00 - 0.50 K/mcL LAB HEMETOLOGY METHOD 10/13/2024 10:47 AM [facility] Basophils Absolute 0.05 0.00 - 0.20 K/mcL LAB HEMETOLOGY METHOD 10/13/2024 10:47 AM [facility] Immature Granulocytes Absolute 0.03 0.00 - 0.03 K/mcL LAB HEMETOLOGY METHOD 10/13/2024 10:47 AM [facility] Blood Venous blood specimen / Unknown Venipuncture / Unknown 10/13/2024 6:35 AM EST 10/13/2024 10:20 AM EST us Michelle Erwin MD LAB BLOOD ORDERABLES Fi nal Result [facility] [address] [place] [address], documented in this encounter Visit Diagnoses Diagnosis Other roasterman (current) drug therapy documented in this encounter Additional Health Concerns Infection Onset Date Last Indicated Resolved Time Respiratory Rule-Out 03/22/2025 03/22/2025 025 5:02 AM EDT COVID-19 Rule-Out 03/22/2025 03/22/2025 03/22/2025 5:02 AM EDT documented as of this encounter Care Teams Lunch Truck Operator Relationship Specialty Start Date End Date Ginger Pate MD [address] [place] [address] PCP - General Internal Medicine 03/22/25 documented as of this encounter
--- OUTSIDE RECORDS SUMMARY | 2025-07-06 22:34 | XMS_ITS | Encounter Summary ---
Author Organization [facility] Address [address] [place] [address] Care Team Providers Care Long Chain Beamer Name Role Phone Ginger Pate MD Primary Care Provider Encounter Details Date Type Department Care Team (Late st Contact Info) Description 05/07/2025 Lab Requisition [facility] - Main Lab 299 [facility] [place] [address] Junaid Desir MD [address] [place] [address] [address] [place], [phone] Essential (primary) hypertension Social History Tobacco [...] Associated Diagnosis Comments COMPLETE BLOOD COUNT Routine 05/10/2025 6:56 AM EDT Essential (primary) hypertension BASIC METABOLIC PANEL Routine 05/10/2025 6:56 AM EDT Essential (primary) hypertension documented in this encounter Results * (ABNORMAL) Complete blood count (05/10/2025 6:56 AM EDT) [facility] WBC 11.1(H) 4.8 - 10.8 K/mcL LAB HEMETOLOGY METHOD 05/10/2025 11:17 AM [facility] RBC 4.70 4.50 - 5.50 M/mcL LAB HEMETOLOGY METHOD 05/10/2025 11:17 AM [facility] Hemoglobin 11.1(L) 13.5 - 17.5 g/dL LAB HEMETOLOGY METHOD 05/10/2025 11:17 AM [facility] Hematocrit 40.0(L) 42.0 - 54.0 % LAB HEMETOLOGY METHOD 05/10/2025 11:17 AM [facility] MCV 85.7 79.0 - 98.0 FL LAB HEMETOLOGY METHOD 05/10/2025 11:17 AM [facility] MCH 23.8(L) 27.0 - 32.0 pcg LAB HEMETOLOGY METHOD 05/10/2025 11:17 AM [facility] MCHC 27.8(L) 32.0 - 37.0 g/dL LAB HEMETOLOGY METHOD 05/10/2025 11:17 AM [facility] RDW 19.3(H) 11.0 - 15.0 % LAB HEMETOLOGY METHOD 05/10/2025 11:17 AM [facility] Platelets 378 130 - 400 K/mcL LAB HEMETOLOGY METHOD 05/10/2025 11:17 AM EDT [facility] MPV 9.9 7.0 - 11.0 FL LAB HEMETOLOGY METHOD 05/10/2025 11:17 AM EDT [facility] NRBC 0.0 <1.0 % LAB HEMETOLOGY METHOD 05/10/2025 11:17 AM EDT [facility] NRBC Absolute 0.00 <0.10 K/mcL LAB HEMETOLOGY METHOD 05/10/2025 11:17 AM EDT [facility] Blood Venous blood specimen / Unknown Venipuncture / Unknown 05/10/2025 6:56 AM EDT 05/10/2025 10:38 AM EDT us Junaid Desir MD LAB BLOOD ORDERABLES Final Resul t [facility] [address] [place] [address], [place] [phone] * (ABNORMAL) Basic metabolic panel (05/10/2025 6:56 AM EDT) Sodium 139 133 - 145 mmol/L LAB CHEMISTRY METHOD 05/10/2025 11:46 AM [facility] Potassium 4.2 3.5 - 5.5 mmol/L LAB CHEMISTRY METHOD 05/10/2025 11:46 AM [facility] Chloride 102 96 - 110 mmol/L LAB CHEMISTRY METHOD 05/10/2025 11:46 AM [facility] CO2 33(H) 21 - 32 mmol/L LAB CHEMISTRY METHOD 05/10/2025 11:46 AM [facility] Anion Gap 4 3 - 11 LAB CHEMISTRY METHOD 05/10/2025 11:46 AM [facility] Glucose 87 70 - 100 mg/dL LAB CHEMISTRY METHOD 05/10/2025 11:46 AM EDT [facility] BUN 11 5 - 25 mg/dL LAB CHEMISTRY METHOD 05/10/2025 11:46 AM [facility] Creatinine 0.65(L) 0.70 - 1.30 mg/dL LAB CHEMISTRY METHOD 05/10/2025 11:46 AM [facility] eGFR 109 >=60 mL/min/1. 73m2 LAB CHEMISTRY METHOD 05/10/2025 11:46 AM [facility] Comment:Calculation based on the Chronic Kidney Disease Epidemiology Collaboration (CKD-EPI) equation refit without adjustment for race. BUN/Creatinine Ratio 16.9 LAB CHEMISTRY METHOD 05/10/2025 11:46 AM [facility] Calcium 8.9 8.5 - 10.5 mg/dL LAB CHEMISTRY METHOD 05/10/2025 11:46 AM [facility] Blood Venous blood specimen / Unknown Venipuncture / Unknown 05/10/2025 6:56 AM EDT 05/10/2025 10:38 AM EDT us Junaid Desir MD LAB BLOOD ORDERABLES Final Resul t [facility] [address] [place] [address], documented in this encounter Visit Diagnoses Diagnosis Essential (primary) hypertension Unspecified essential hypertension documented in this encounter Care Teams Long Chain Beamer Relationship Specialty Start Date End Date Ginger Pate MD [address] [place] [address] PCP - General Internal Medicine 03/22/25 documented as of this encounter
--- OUTSIDE RECORDS SUMMARY | 2025-07-06 22:34 | XMS_ITS | Encounter Summary ---
Author Organization [facility] Address [address] [place] [address] Care Team Providers Care Online Activist Name Role Phone Ginger Pate MD Primary Care Provider Encounter Details Date Type Department Care Team (Late st Contact Info) Description 05/06/[address] [facility] - Main Lab [address] [facility] [place] [address] Junaid Desir MD [address] [place] [address] [address] [place], [phone] Essential (primary) hypertension Social History Tobacco [...] Associated Diagnosis Comments COMPLETE BLOOD COUNT Routine 05/06/2025 5:28 AM EDT Essential (primary) hypertension COMPREHENSIVE METABOLIC PANEL Routine 05/06/2025 5:28 AM EDT Essential (primary) hypertension documented in this encounter Results * (ABNORMAL) Comprehensive metabolic panel (05/06/2025 5:28 AM EDT) Sodium 139 133 - 145 mmol/L LAB CHEMISTRY METHOD 05/06/2025 10:38 AM [facility] Potassium 4.2 3.5 - 5.5 mmol/L LAB CHEMISTRY METHOD 05/06/2025 10:38 AM [facility] Chloride 102 96 - 110 mmol/L LAB CHEMISTRY METHOD 05/06/2025 10:38 AM [facility] CO2 33(H) 21 - 32 mmol/L LAB CHEMISTRY METHOD 05/06/2025 10:38 AM [facility] Anion Gap 4 3 - 11 LAB CHEMISTRY METHOD 05/06/2025 10:38 AM [facility] Glucose 104(H) 70 - 100 mg/dL LAB CHEMISTRY METHOD 05/06/2025 10:38 AM [facility] BUN 13 5 - 25 mg/dL LAB CHEMISTRY METHOD 05/06/2025 10:38 AM [facility] Creatinine 0.65(L) 0.70 - 1.30 mg/dL LAB CHEMISTRY METHOD 05/06/2025 10:38 AM [facility] eGFR 109 >=60 mL/min/1. 73m2 LAB CHEMISTRY METHOD 05/06/2025 10:38 AM [facility] Comment:Calculation based on the Chronic Kidney Disease Epidemiology Collaboration (CKD-EPI) equation refit without adjustment for race. BUN/Creatinine Ratio 20.0 LAB CHEMISTRY METHOD 05/06/2025 10:38 AM [facility] Calcium 8.9 8.5 - 10.5 mg/dL LAB CHEMISTRY METHOD 05/06/2025 10:38 AM [facility] AST (SGOT) 21 10 - 42 unit/L LAB CHEMISTRY METHOD 05/06/2025 10:38 AM [facility] ALT (SGPT) 40 10 - 60 unit/L LAB CHEMISTRY METHOD 05/06/2025 10:38 AM [facility] Alkaline Phosphatase 62 42 - 121 unit/L LAB CHEMISTRY METHOD 05/06/2025 10:38 AM [facility] Total Protein 6.0 6.0 - 8.0 g/dL LAB CHEMISTRY METHOD 05/06/2025 10:38 AM [facility] Albumin 2.8(L) 3.2 - 5.0 g/dL LAB CHEMISTRY METHOD 05/06/2025 10:38 AM [facility] Total Bilirubin 0.5 0.0 - 1.4 mg/dL LAB CHEMISTRY METHOD 05/06/2025 10:38 AM [facility] Blood Venous blood specimen / Unknown Venipuncture / Unknown 05/06/2025 5:28 AM EDT 05/06/2025 8:29 AM EDT us Junaid Desir MD LAB BLOOD ORDERABLES Final Resul t [facility] [address] [place] [address], * (ABNORMAL) Complete blood count (05/06/2025 5:28 AM EDT) WBC 16.2(H) 4.8 - 10.8 K/[facility] LAB HEMETOLOGY METHOD 05/06/2025 10:03 AM EDT [facility] RBC 4.90 4.50 - 5.50 M/mcL LAB HEMETOLOGY METHOD 05/06/2025 10:03 AM [facility] Hemoglobin 11.8(L) 13.5 - 17.5 g/dL LAB HEMETOLOGY METHOD 05/06/2025 10:03 AM [facility] Hematocrit 42.4 42.0 - 54.0 % LAB HEMETOLOGY METHOD 05/06/2025 10:03 AM [facility] MCV 86.4 79.0 - 98.0 FL LAB HEMETOLOGY METHOD 05/06/2025 10:03 AM [facility] MCH 24.0(L) 27.0 - 32.0 pcg LAB HEMETOLOGY METHOD 05/06/2025 10:03 AM [facility] MCHC 27.8(L) 32.0 - 37.0 g/dL LAB HEMETOLOGY METHOD 05/06/2025 10:03 AM [facility] RDW 19.8(H) 11.0 - 15.0 % LAB HEMETOLOGY METHOD 05/06/2025 10:03 AM [facility] Platelets 303 130 - 400 K/mcL LAB HEMETOLOGY METHOD 05/06/2025 10:03 AM [facility] MPV 10.3 7.0 - 11.0 FL LAB HEMETOLOGY METHOD 05/06/2025 10:03 AM [facility] NRBC 0.0 <1.0 % LAB HEMETOLOGY METHOD 05/06/2025 10:03 AM [facility] NRBC Absolute 0.00 <0.10 K/mcL LAB HEMETOLOGY METHOD 05/06/2025 10:03 AM [facility] Blood Venous blood specimen / Unknown Venipuncture / Unknown 05/06/2025 5:28 AM EDT 05/06/2025 8:29 AM EDT us Junaid Desir MD LAB BLOOD ORDERABLES Final Resul t [facility] [address] [place] [address], documented in this encounter Visit Diagnoses Diagnosis Essential (primary) hypertension Unspecified essential hypertension documented in this encounter Care Teams Online Activist Relationship Specialty Start Date End Date Ginger Pate MD [address] [place] [phone] PCP - General Internal Medicine 03/22/25 documented as of this encounter
--- OUTSIDE RECORDS SUMMARY | 2025-07-06 22:34 | XMS_ITS | Encounter Summary ---
Author Organization [facility] Address [address] [place] [address] Care Team Providers Care Corporate Quality Manager Name Role Phone Ginger Pate MD Primary Care Provider Encounter Details Date Type Department Care Team (Late st Contact Info) Description 09/15/[address] [facility] - Main Lab [address] [facility] [place] [address] Michelle Erwin MD [address] [place] [address] Other fpc (current) drug therapy Social History Tobacco Use [...] Procedure Name Priority Date/Time Associated Diagnosis Comments TRAVEL PHLEBOTOMY FEE Routine 09/15/2024 9:04 AM EST Other fpc (current) drug therapy CBC WITH AUTO DIFFERENTIAL Routine 09/15/2024 9:04 AM EST Other fpc (current) drug therapy CBC AND DIFFERENTIAL Routine 09/15/2024 9:04 AM EST Other fpc (current) drug therapy documented in this encounter Results * (ABNORMAL) CBC auto differential (09/15/2024 9:04 AM EST) WBC 8.9 4.8 - 10.8 K/mcL LAB HEMETOLOGY METHOD 09/15/2024 11:35 AM [facility] RBC 5.20 4.50 - 5.50 M/mcL LAB HEMETOLOGY METHOD 09/15/2024 11:35 AM [facility] Hemoglobin 10.5(L) 13.5 - 17.5 g/dL LAB HEMETOLOGY METHOD 09/15/2024 11:35 AM [facility] Hematocrit 39.7(L) 42.0 - 54.0 % LAB HEMETOLOGY METHOD 09/15/2024 11:35 AM [facility] MCV 75.8(L) 79.0 - 98.0 FL LAB HEMETOLOGY METHOD 09/15/2024 11:35 AM [facility] MCH 20.0(L) 27.0 - 32.0 pcg LAB HEMETOLOGY METHOD 09/15/2024 11:35 AM [facility] MCHC 26.4(L) 32.0 - 37.0 g/dL LAB HEMETOLOGY METHOD 09/15/2024 11:35 AM [facility] RDW 19.9(H) 11.0 - 15.0 % LAB HEMETOLOGY METHOD 09/15/2024 11:35 AM [facility] Platelets 371 130 - 400 K/mcL LAB HEMETOLOGY METHOD 09/15/2024 11:35 AM [facility] MPV 9.4 7.0 - 11.0 FL LAB HEMETOLOGY METHOD 09/15/2024 11:35 AM [facility] NRBC 0.0 <1.0 % LAB HEMETOLOGY METHOD 09/15/2024 11:35 AM [facility] NRBC Absolute 0.00 <0.10 K/mcL LAB HEMETOLOGY METHOD 09/15/2024 11:35 AM [facility] Neutrophils Relative 68.4 % LAB HEMETOLOGY METHOD 09/15/2024 11:35 AM [facility] Lymphocytes Relative 23.7 % LAB HEMETOLOGY METHOD 09/15/2024 11:35 AM [facility] Monocytes Relative 6.6 % LAB HEMETOLOGY METHOD 09/15/2024 11:35 AM [facility] Eosinophils Relative 0.2 % LAB HEMETOLOGY METHOD 09/15/2024 11:35 AM [facility] Basophils Relative 0.8 % LAB HEMETOLOGY METHOD 09/15/2024 11:35 AM [facility] Immature Granulocytes Relative 0.3 % LAB HEMETOLOGY METHOD 09/15/2024 11:35 AM [facility] Neutrophils Absolute 6.11 1.50 - 7.00 K/mcL LAB HEMETOLOGY METHOD 09/15/2024 11:35 AM [facility] Lymphocytes Absolute 2.12 1.00 - 5.00 K/mcL LAB HEMETOLOGY METHOD 09/15/2024 11:35 AM [facility] Monocytes Absolute 0.59 0.20 - 1.00 K/mcL LAB HEMETOLOGY METHOD 09/15/2024 11:35 AM [facility] Eosinophils Absolute 0.02 0.00 - 0.50 K/mcL LAB HEMETOLOGY METHOD 09/15/2024 11:35 AM [facility] Basophils Absolute 0.07 0.00 - 0.20 K/mcL LAB HEMETOLOGY METHOD 09/15/2024 11:35 AM [facility] Immature Granulocytes Absolute 0.03 0.00 - 0.03 K/mcL LAB HEMETOLOGY METHOD 09/15/2024 11:35 AM EST [facility] Blood Venous blood specimen / Unknown Venipuncture / Unknown 09/15/2024 9:04 AM EST 09/15/2024 10:52 AM EST us Michelle Erwin MD LAB BLOOD ORDERABLES Fi nal Result Performing Organization Address City/[facility]/ZIP Co de Phone Number [facility] [address] [place] [address], [place] [phone] * Travel phlebotomy fee (09/15/2024 9:04 AM EST) [facility] TRAVEL PHLEBOTOMY FEE Completed 09/15/2024 11:02 AM EST [facility] Blood Venous blood specimen / Unknown Venipuncture / Unknown 09/15/2024 9:04 AM EST 09/15/2024 10:52 AM EST us Michelle Erwin MD LAB BLOOD ORDERABLES Fi nal Result Performing Organization Address [facility] Co de Phone Number [facility] [address] [place] [address], [place] [phone] documented in this encounter Visit Diagnoses Diagnosis Other fpc (current) drug therapy documented in this encounter Additional Health Concerns Infection Onset Date Last Indicated Resolved Time Respiratory Rule-Out 03/22/2025 03/22/2025 025 5:02 AM EDT COVID-19 Rule-Out 03/22/2025 03/22/2025 03/22/2025 5:02 AM EDT documented as of this encounter Care Teams Corporate Quality Manager Relationship Specialty Start Date End Date Ginger Pate MD [address] [place] [address] PCP - General Internal Medicine 03/22/25 documented as of this encounter
--- OUTSIDE RECORDS SUMMARY | 2025-07-06 22:34 | XMS_ITS | Encounter Summary ---
Author Organization [facility] Address [address] [place] [address] Care Team Providers Care Shredded Filler Cigar Maker Machine Name Role Phone Ginger Pate MD Primary Care Provider Encounter Details Date Type Department Care Team (Late st Contact Info) Description 11/10/2024 Lab Requisition [facility] - Main Lab [address] [facility] [place] [address] Michelle Erwin MD [address] [place] [address] Other mcc (current) drug therapy Social History [...] Diagnosis Comments CBC WITH AUTO DIFFERENTIAL Routine 11/10/2024 7:30 AM EST Other mcc (current) drug therapy CBC AND DIFFERENTIAL Routine 11/10/2024 7:30 AM EST Other mcc (current) drug therapy documented in this encounter Results * (ABNORMAL) CBC auto differential (11/10/2024 7:30 AM EST) [facility] WBC 11.7(H) 4.8 - 10.8 K/mcL LAB HEMETOLOGY METHOD 11/10/2024 12:16 PM [facility] RBC 5.30 4.50 - 5.50 M/mcL LAB HEMETOLOGY METHOD 11/10/2024 12:16 PM [facility] Hemoglobin 11.4(L) 13.5 - 17.5 g/dL LAB HEMETOLOGY METHOD 11/10/2024 12:16 PM [facility] Hematocrit 41.6(L) 42.0 - 54.0 % LAB HEMETOLOGY METHOD 11/10/2024 12:16 PM [facility] MCV 79.1 79.0 - 98.0 FL LAB HEMETOLOGY METHOD 11/10/2024 12:16 PM [facility] MCH 21.7(L) 27.0 - 32.0 pcg LAB HEMETOLOGY METHOD 11/10/2024 12:16 PM [facility] MCHC 27.4(L) 32.0 - 37.0 g/dL LAB HEMETOLOGY METHOD 11/10/2024 12:16 PM [facility] RDW 19.6(H) 11.0 - 15.0 % LAB HEMETOLOGY METHOD 11/10/2024 12:16 PM [facility] Platelets 372 130 - 400 K/mcL LAB HEMETOLOGY METHOD 11/10/2024 12:16 PM [facility] MPV 9.8 7.0 - 11.0 FL LAB HEMETOLOGY METHOD 11/10/2024 12:16 PM [facility] NRBC 0.0 <1.0 % LAB HEMETOLOGY METHOD 11/10/2024 12:16 PM [facility] NRBC Absolute 0.00 <0.10 K/mcL LAB HEMETOLOGY METHOD 11/10/2024 12:16 PM [facility] Neutrophils Relative 73.3 % LAB HEMETOLOGY METHOD 11/10/2024 12:16 PM [facility] Lymphocytes Relative 19.3 % LAB HEMETOLOGY METHOD 11/10/2024 12:16 PM [facility] Monocytes Relative 6.4 % LAB HEMETOLOGY METHOD 11/10/2024 12:16 PM [facility] Eosinophils Relative 0.3 % LAB HEMETOLOGY METHOD 11/10/2024 12:16 PM [facility] Basophils Relative 0.3 % LAB HEMETOLOGY METHOD 11/10/2024 12:16 PM [facility] Immature Granulocytes Relative 0.4 % LAB HEMETOLOGY METHOD 11/10/2024 12:16 PM [facility] Neutrophils Absolute 8.60(H) 1.50 - 7.00 K/mcL LAB HEMETOLOGY METHOD 11/10/2024 12:16 PM [facility] Lymphocytes Absolute 2.26 1.00 - 5.00 K/mcL LAB HEMETOLOGY METHOD 11/10/2024 12:16 PM [facility] Monocytes Absolute 0.75 0.20 - 1.00 K/mcL LAB HEMETOLOGY METHOD 11/10/2024 12:16 PM [facility] Eosinophils Absolute 0.03 0.00 - 0.50 K/mcL LAB HEMETOLOGY METHOD 11/10/2024 12:16 PM [facility] Basophils Absolute 0.04 0.00 - 0.20 K/mcL LAB HEMETOLOGY METHOD 11/10/2024 12:16 PM [facility] Immature Granulocytes Absolute 0.05(H) 0.00 - 0.03 K/mcL LAB HEMETOLOGY METHOD 11/10/2024 12:16 PM [facility] Blood Venous blood specimen / Unknown Venipuncture / Unknown 11/10/2024 7:30 AM EST 11/10/2024 11:56 AM EST Michelle Erwin MD LAB BLOOD ORDERABLES Fi nal Result [facility] [address] [place] [address], documented in this encounter Visit Diagnoses Diagnosis Other mcc (current) drug therapy documented in this encounter Additional Health Concerns Infection Onset Date Last Indicated Resolved Time Respiratory Rule-Out 03/22/2025 03/22/2025 025 5:02 AM EDT COVID-19 Rule-Out 03/22/2025 03/22/2025 03/22/2025 5:02 AM EDT documented as of this encounter Care Teams Shredded Filler Cigar Maker Machine Relationship Specialty Start Date End Date Ginger Pate MD [address] [place] [address] PCP - General Internal Medicine 03/22/25 documented as of this encounter
--- OUTSIDE RECORDS SUMMARY | 2025-07-06 22:34 | XMS_ITS | Encounter Summary ---
Author Organization [facility] Address [address] [place] [address] Care Team Providers Care Indoor Landscape Architect Name Role Phone Ginger Pate MD Primary Care Provider Encounter Details Date Type Department Care Team (Late st Contact Info) Description 01/05/2025 Lab Requisition [facility] - Main Lab [address] [facility] [place] [address] Michelle Erwin MD [address] [place] [address] Other jail (current) drug therapy Social History Tobacco Use [...] Diagnosis Comments CBC WITH AUTO DIFFERENTIAL Routine 01/05/2025 6:48 AM EST Other jail (current) drug therapy CBC AND DIFFERENTIAL Routine 01/05/2025 6:48 AM EST Other jail (current) drug therapy documented in this encounter Results * (ABNORMAL) CBC auto differential (01/05/2025 6:48 AM EST) [facility] WBC 8.8 4.8 - 10.8 K/mcL LAB HEMETOLOGY METHOD 01/05/2025 10:31 AM [facility] RBC 5.30 4.50 - 5.50 M/mcL LAB HEMETOLOGY METHOD 01/05/2025 10:31 AM [facility] Hemoglobin 12.1(L) 13.5 - 17.5 g/dL LAB HEMETOLOGY METHOD 01/05/2025 10:31 AM [facility] Hematocrit 43.7 42.0 - 54.0 % LAB HEMETOLOGY METHOD 01/05/2025 10:31 AM [facility] MCV 83.2 79.0 - 98.0 FL LAB HEMETOLOGY METHOD 01/05/2025 10:31 AM [facility] MCH 23.0(L) 27.0 - 32.0 pcg LAB HEMETOLOGY METHOD 01/05/2025 10:31 AM [facility] MCHC 27.7(L) 32.0 - 37.0 g/dL LAB HEMETOLOGY METHOD 01/05/2025 10:31 AM [facility] RDW 20.0(H) 11.0 - 15.0 % LAB HEMETOLOGY METHOD 01/05/2025 10:31 AM [facility] Platelets 334 130 - 400 K/mcL LAB HEMETOLOGY METHOD 01/05/2025 10:31 AM [facility] MPV 9.8 7.0 - 11.0 FL LAB HEMETOLOGY METHOD 01/05/2025 10:31 AM [facility] NRBC 0.0 <1.0 % LAB HEMETOLOGY METHOD 01/05/2025 10:31 AM [facility] NRBC Absolute 0.00 <0.10 K/mcL LAB HEMETOLOGY METHOD 01/05/2025 10:31 AM [facility] Neutrophils Relative 68.9 % LAB HEMETOLOGY METHOD 01/05/2025 10:31 AM [facility] Lymphocytes Relative 22.8 % LAB HEMETOLOGY METHOD 01/05/2025 10:31 AM [facility] Monocytes Relative 7.0 % LAB HEMETOLOGY METHOD 01/05/2025 10:31 AM [facility] Eosinophils Relative 0.5 % LAB HEMETOLOGY METHOD 01/05/2025 10:31 AM [facility] Basophils Relative 0.5 % LAB HEMETOLOGY METHOD 01/05/2025 10:31 AM [facility] Immature Granulocytes Relative 0.3 % LAB HEMETOLOGY METHOD 01/05/2025 10:31 AM [facility] Neutrophils Absolute 6.09 1.50 - 7.00 K/mcL LAB HEMETOLOGY METHOD 01/05/2025 10:31 AM [facility] Lymphocytes Absolute 2.01 1.00 - 5.00 K/mcL LAB HEMETOLOGY METHOD 01/05/2025 10:31 AM [facility] Monocytes Absolute 0.62 0.20 - 1.00 K/mcL LAB HEMETOLOGY METHOD 01/05/2025 10:31 AM [facility] Eosinophils Absolute 0.04 0.00 - 0.50 K/mcL LAB HEMETOLOGY METHOD 01/05/2025 10:31 AM [facility] Basophils Absolute 0.04 0.00 - 0.20 K/mcL LAB HEMETOLOGY METHOD 01/05/2025 10:31 AM [facility] Immature Granulocytes Absolute 0.03 0.00 - 0.03 K/mcL LAB HEMETOLOGY METHOD 01/05/2025 10:31 AM [facility] Blood Venous blood specimen / Unknown Venipuncture / Unknown 01/05/2025 6:48 AM EST 01/05/2025 10:15 AM EST us Michelle Erwin MD LAB BLOOD ORDERABLES Fi nal Result [facility]) [facility] [address] [place] [address], documented in this encounter Visit Diagnoses Diagnosis 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
[2025-07-06 22:35] LABS: Hematocrit 37.3 % (42.0-52.0); Hemoglobin 11.5 g/dl (14.0-18.0); Imm Gran Abs Auto 0.04 X10*3/uL (0.00-0.03); Imm Gran Pct Auto 0.4 % (0.0-0.4); Lymphocytes Absolute Auto 2.1 X10*3/uL (1.2-4.9); Mean Corpuscular HGB Conc 30.8 g/dl (31.0-36.0); Mean Corpuscular Hemoglobin 26.5 pg (27.0-33.0); Mean Corpuscular Volume 85.9 fL (80.0-98.0); NRBC Abs Auto 0.000 X10*3/uL (0.0-0.012); NRBC Pct Auto 0.0 /100WBC (0.0-0.2); Platelet Count 293 X10*3/uL (160-400); Red Blood Count 4.34 X10*6/uL (4.60-5.80); White Blood Count 10.5 X10*3/uL (4.8-10.8)
[2025-07-06 22:50] LABS: Alanine Aminotransferase < 6 U/L (0-40); Albumin Level 3.7 g/dL (3.5-5.0); Alkaline Phosphatase 80 U/L (39-117); Anion Gap 12 (12-20); Aspartate Amino Transferase 18 U/L (5-37); Blood Urea Nitrogen 12 mg/dL (9-16); Calcium 8.8 mg/dL (8.4-10.2); Carbon Dioxide 28 mmol/L (22-29); Chloride 104 mmol/L (96-108); Creatinine Clr Calc Pharmacy 110.6; Estimated Glomerular Filt Rate > 60; Magnesium 1.9 mg/dL (1.6-2.6); Potassium 4.1 mmol/L (3.3-5.1); Sodium 140 mmol/L (135-145); Total Protein 6.2 g/dL (6.5-8.0)
[2025-07-06 23:13] LABS: Resp Syncy Virus RNA Qual PCR NEGATIVE (Negative); SARS COV2 PCR INHOUSE NEGATIVE (Negative)
[2025-07-07] VITALS (11 sets, daily range): BP systolic 109–144; BP diastolic 49–69; PULSE 68–87; RESP 13–24; TEMP 36.7–37.4; O2SAT 90–98; BMI 19.7
--- NOTE | 2025-07-07 03:37 | PC.NURSE ---
pt has been waiting to be seen by ed provider. nad since arrival pt remains calm/cooperative resting in stretcher able to make needs known and reposition self. pt has been very intermittently coughing. sats 99% on 2L, attempt to trial off o2 and sats drop to mid 80s% on RA. call tracy within reach.
--- NOTE | 2025-07-07 06:00 | PC.NURSE ---
gave pt diet gingerale and sandwich per request. no signs of aspiration while eating. pt states he has a normal diet at home.
--- NOTE | 2025-07-07 07:34 | ED.URI ---
HPI - URI/Sore Throat General Chief Complaint: Upper Respiratory Symptoms Stated Complaint: intermediate hx asthma sob x2 wks, RA 90%, 2L NC 98% Time Seen by Provider: 07/07/25 07:17 Source: patient and EMS Mode of arrival: EMS Limitations: no limitations History of Present Illness ED Provider: HPI Narrative: 60-year-old male from intermediate reporting cough shortness of breath for the past 2 weeks, reportedly was hypoxic to 90s% on room air, initially he was 79% on room air in the ER improved after nebulizer treatment and once he was placed on 2 L nasal cannula. He has history of asthma and COPD, reports to be a smoker and states has not been able to quit. Related Data Home Medications ?Medication ?Instructions ?Recorded ?Confirmed insulin lispro 100 unit/mL See Protocol subcut TIDAC 03/02/24 04/29/25 subcutaneous solution (Humalog U-100 Insulin) insulin glargine 100 unit/mL 15 unit subcut BEDTIME 04/04/24 04/29/25 subcutaneous solution atenolol 25 mg tablet 25 mg PO DAILY 04/28/25 04/28/25 cetirizine 5 mg tablet 5 mg PO DAILY 04/28/25 04/28/25 levothyroxine 175 mcg tablet 175 mcg PO DAILY 04/28/25 04/28/25 clozapine 100 mg tablet 100 mg PO BID 04/29/25 04/29/25 clozapine 25 mg tablet 75 mg PO DAILY 04/29/25 04/29/25 Previous Rx's ?Medication ?Instructions ?Recorded albuterol sulfate 90 mcg/actuation 2 puff inhalation RQ4H PRN 03/19/24 aerosol inhaler (Ventolin HFA) Shortness Of Breath 30 days #1 inhaler atorvastatin 40 mg tablet 40 mg PO BEDTIME 30 days #30 tabs 03/19/24 desmopressin 0.2 mg tablet 0.1 mg (1/2 x 0.2 mg) PO BEDTIME 03/19/24 30 days #15 tabs docusate sodium 100 mg capsule 100 mg PO BID PRN constipation 30 03/19/24 days #60 caps fluphenazine HCl 1 mg tablet 1 mg PO BEDTIME 30 days #30 tabs 03/19/24 fluticasone fur. 100 mcg-umeclid 1 inh inhalation RDAILY 30 days 03/19/24 62.5 mcg-vilant 25 mcg #60 ea inhalat.powder (Trelegy Ellipta) fluticasone propionate 50 1 spray intranasal DAILY 30 days 03/19/24 mcg/actuation nasal #1 inhaler spray,suspension (Flonase Allergy Relief) gabapentin 600 mg tablet 1 tab PO TID 30 days #90 tabs 03/19/24 glipizide 2.5 mg tablet, extended 2.5 mg PO DAILY 30 days #30 tabs 03/19/24 release 24 hr lidocaine 4 % topical patch 1 patch transdermal DAILY 30 days 03/19/24 (Lidocaine Pain Relief) #30 ea lithium carbonate 450 mg 450 mg PO BID 30 days #60 tabs 03/19/24 tablet,extended release metformin 1,000 mg tablet 1 tab PO BIDWM 30 days #60 tabs 03/19/24 nicotine (polacrilex) 2 mg buccal 2 mg buccal Q2H PRN Nicotine 03/19/24 lozenge Cravings 30 days #108 ea tamsulosin 0.4 mg capsule 0.4 mg PO BEDTIME 30 days #30 caps 03/19/24 cefuroxime axetil 500 mg tablet 500 mg PO Q12H #4 tabs 05/05/25 metronidazole 500 mg tablet 500 mg PO Q8H #6 tabs 05/05/25 prednisone 20 mg tablet 40 mg (2 x 20 mg) PO DAILY 5 days 07/07/25 #10 tabs Allergies Allergy/AdvReac Type Severity Reaction Status Date / Time amoxicillin (AMOXICILLIN) Allergy Intermediate SKIN RASH Verified 07/06/25 22:04 egg (EGGS) Allergy Intermediate HIVES, Verified 07/06/25 22:04 VOMITING Penicillins (PENICILLINS) Allergy Intermediate SKIN RASH Verified 07/06/25 22:04 Sulfa (Sulfonamide Allergy Intermediate SKIN RASH Verified 07/06/25 22:04 Antibiotics) (SULFA (SULFONAMIDE ANTIBIOTICS)) trimethoprim (TRIMETHOPRIM) Allergy Intermediate SKIN RASH Verified 07/06/25 22:04 penicillin V Allergy Unknown Unknown Verified 07/06/25 22:04 haloperidol (From Haldol) Allergy Unknown Verified 07/06/25 22:04 methylprednisolone (From Allergy Unknown Verified 07/06/25 22:04 Solu-Medrol) penicillin Allergy Unknown Unknown Uncoded 07/06/25 22:04 sultamicillin Allergy Unknown Unknown Uncoded 07/06/25 22:04 trimethoprim Allergy Unknown Unknown Uncoded 07/06/25 22:04 Review of Systems Constitutional: Constitutional: Reports as per [facility] Past Medical History Medical History Fall Encounter for staple removal Routine medical exam Hypothyroidism Diabetes mellitus type 2 in nonobese Hyperlipidemia Personal history of nicotine dependence Rash Loculated pleural effusion (~10/2020) Asbestos-induced pleural plaque Traumatic brain injury Schizophrenia HTN (hypertension) COPD (chronic obstructive pulmonary disease) Asthma Surgical History Status post small bowel resection Social History Social History Household Members: Other Household Members Other:: intermediate Housing: Other Housing Other:: intermediate Do you presently have visiting nurse or other home services: Yes Alcohol intake: never Comment: Previously charted. Patient Tobacco Use Status: Current everyday Tobacco user Tobacco use type: Cigarette Cigarette Packs Per Day: 1 Cigarettes Per Day: 20.0 Years Smoked: 40 Smoked in Last 30 Days: No e-Cigarette/Vaping Use: Currently Using Second Hand Smoke Exposure: Yes Use of substances other than those prescribed or required for medical reasons: No Substance Use Type: Marijuana Advance Directives: No Advance Directives Information Provided: No Do you have a plan to hurt others: No Plan service: No Current occupational status: disabled Sexual orientation: Unable to collect Physical Exam Vital Signs: Vital Signs: Last Vital Signs Temp 99.1 F 07/07/25 09:20 Pulse 79 07/07/25 09:20 Resp 22 H 07/07/25 09:20 BP 144/69 H 07/07/25 09:20 Pulse Ox 93 07/07/25 09:20 O2 Del Method Oxymask 07/07/25 09:20 O2 Flow Rate 3 07/07/25 09:20 Oxygen Flow Rate 2 07/06/25 22:06 BMI result Body Mass Index 20.5 Const: Other: Gen: ?Appears of stated age, not on respiratory distress HEENT: PERRLA, EOMI, MMM, Neck: Supple, no LAD CV: RRR, no obvious murmurs appreciated Resp: ?No wheezing rales , expiratory rhonchorous breath sounds no tachypnea no stridor Abd: ?Bowel sounds are present, no tenderness no rebound no rigidity MSK: FROM, strength 5/5 all extremities Skin: Warm, dry, intact, Neuro: ?Alert and oriented x3, moving upper and lower extremities symmetrically, no obvious facial asymmetry noted Medications Administered Discontinued Medications Generic Name Dose Route Start Last Admin Trade Name Trent PRN Reason Stop Dose Admin Albuterol Sulfate 5 mg/ 0 mg 07/07/25 08:34 07/07/25 08:38 Albuterol/Ipratropium 3 ml INHALE 07/07/25 08:35 1 each ONCE ONE Administration Prednisone 60 mg 07/07/25 07:35 07/07/25 07:40 Prednisone 20 Mg Tablet PO 07/07/25 07:36 60 mg ONCE ONE Administration Medical Decision Making Medical Decision Making MDM Narrative: I asked RN to communicate to his intermediate, he has a smoker, has smokers lung on auscultation, chest x-ray without consolidations, pneumothorax, pneumonia, by the time I evaluated him he was no longer hypoxic off oxygen, we will give more nebulizer treatments for expectoration purposes we will start on oral steroids continue steroids at home we spoke quite a bit about smoking cessation 07:52 after being 10 minutes of oxygen actually oxygen dropped to 88% so he is getting a nebulizer treatment 09:27 still very rhonchorous can not cough anything up, back on oxygen, we will admit and obtain CTA Differential Diagnosis Differential Diagnoses: The differential diagnosis associated with the presentation includes (CHF, COPD exacerbation, pneumonia, pneumothorax, ACS, PE,) Admission/Observation Consideration of admission/observation: Escalation of care including admission/observation considered (Patient improved after treatments we will be discharged with medications to intermediate) 2022 Emergency Medicine Coding Guide from [employer] on 07/07/2025 All calculations should be rechecked by clinician prior to use RESULT SUMMARY: 5 Estimated Level of Service Problems: High (5) Risk: High (5) Data: Extensive (5) NARRATIVE MDM: This patient's problem complexity is High as patient: with chronic illness(es) with severe exacerbation/progression/side effects. This patient's risk is High due to: overall presentation requiring evaluation for a potentially High-risk process. This patient's data complexity is Extensive due to: -multiple tests ordered/reviewed -independent interpretation of imaging or EKG INPUTS: Number and Complexity ?> 1 = 5: chronic illness w/severe exacerbation (a) Risk level ?> 4 = High Tests ordered ?> 3 = >= Tests results reviewed (excluding labs) ?> 2 = 2 Prior external notes reviewed ?> 0 = 0 Assessment requiring and independent historian ?> 0 = No Independent interpretation of tests ?> 1 = Yes Discussed management/test interpretation w/external professional ?> 0 = No Lab Data 07/06/25 22:20 07/06/25 22:20 Labs: Lab Results 07/06/25 Range/Units 22:20 WBC 10.5 (4.8-10.8) X10*3/uL RBC 4.34 L (4.60-5.80) X10*6/uL Hgb 11.5 L (14.0-18.0) g/dl Hct 37.3 L (42.0-52.0) % MCV 85.9 (80.0-98.0) fL MCH 26.5 L (27.0-33.0) pg MCHC 30.8 L (31.0-36.0) g/dl RDW 18.2 H (11.0-16.0) % Plt Count 293 (160-400) X10*3/uL MPV 9.2 L (9.4-12.4) fL Immature Gran % (Auto) 0.4 (0.0-0.4) % Neut % (Auto) 72.2 (45-73) % Lymph % (Auto) 19.4 L (20-40) % [place] % (Auto) 7.5 (2-11) % Eos % (Auto) 0.2 (0-4) % Baso % (Auto) 0.3 (0-2) % Lymph # (Auto) 2.1 (1.2-4.9) X10*3/uL [place] # (Auto) 0.8 (0.1-1.2) X10*3/uL Eos # (Auto) 0.0 (0.0-0.4) X10*3/uL Baso # (Auto) 0.0 (0.0-0.2) X10*3/uL Abs Immat Gran (auto) 0.04 H (0.00-0.03) X10*3/uL Absolute Neuts (auto) 7.6 (2.0-8.3) x10*3/uL Absolute Nucleated RBC 0.000 (0.0-0.012) X10*3/uL Nucleated RBC % (auto) 0.0 (0.0-0.2) /100WBC Sodium 140 (135-145) mmol/L Potassium 4.1 (3.3-5.1) mmol/L Chloride 104 (96-108) mmol/L Carbon Dioxide 28 (22-29) mmol/L Anion Gap 12 (12-20) BUN 12 (9-16) mg/dL Creatinine 0.69 (0.5-1.4) mg/dL Estim Creat Clear Calc 110.6 Estimated GFR > 60 Random Glucose 103 (60-115) mg/dL Calcium 8.8 (8.4-10.2) mg/dL Magnesium 1.9 (1.6-2.6) mg/dL Total Bilirubin 0.4 (0.0-1.0) mg/dL AST 18 (5-37) U/L ALT < 6 (0-40) U/L Alkaline Phosphatase 80 (39-117) U/L Total Protein 6.2 L (6.5-8.0) g/dL Albumin 3.7 (3.5-5.0) g/dL Influenza Type A (PCR) NEGATIVE (Negative) Influenza Type B (PCR) NEGATIVE (Negative) RSV RNA Qual (PCR) NEGATIVE (Negative) SARS-CoV-2 RNA (RT-PCR) NEGATIVE (Negative) Radiology Impression Discussion of test interpretation with radiology: I have reviewed the radiologist's reading. (Negative chest) Independent Historian Clinical information obtained from an independent historian. History obtained from or confirmed by: EMS Critical Care Time Critical Care Time Critical Care Time: Yes Total Critical Care Time: 60 Attestation: Time is exclusive of separately billable procedures. Time includes: direct patient care, patient reassessment, coordination of patient care, interpretation of data (laboratory data, pulse oximetry, arterial blood gases and chest xrays), review of patient's medical records, medical consultation and documentation of patient care. Procedures excluded from critical care time: central intravenous line placement and electrocardiography. Discharge Plan Discharge Clinical Impression: Acute exacerbation of chronic obstructive pulmonary disease Instructions: COPD (Chronic Obstructive Pulmonary Disease) (ED) Prescriptions: New prednisone 20 mg tablet 40 mg PO DAILY 5 Days Qty: 10 0RF No Action insulin lispro [Humalog U-100 Insulin] 100 unit/mL solution See Protocol subcut [facility] Protocol: Insulin Correction Scale Less than or equal to 110 ---- Give (units): 0 111 to 150 Give (units): 0 151 to 200 Give (units): 2 201 to 250 Give (units): 6 251 to 300 Give (units): 8 301 to 350 Give (units): 10 Greater than 350 Give (units): 12 Call MD if Blood Glucose > : 350 albuterol sulfate [Ventolin HFA] 90 mcg/actuation Hfa Aerosol Inhaler 2 puff inhalation RQ4H PRN (Reason: Shortness Of Breath) 30 Days Qty: 1 0RF nicotine (polacrilex) 2 mg Lozenge 2 mg buccal Q2H PRN (Reason: Nicotine Cravings) 30 Days Qty: 108 0RF desmopressin 0.2 mg Tablet 0.1 mg PO BEDTIME 30 Days Qty: 15 0RF tamsulosin 0.4 mg Capsule 0.4 mg PO BEDTIME 30 Days Qty: 30 0RF glipizide 2.5 mg Tablet Extended Release 24hr 2.5 mg PO DAILY 30 Days Qty: 30 0RF Trelegy Ellipta 100-62.5-25 mcg Blister With Device 1 inh inhalation RDAILY 30 Days Qty: 60 0RF lidocaine [Lidocaine Pain Relief] 4 % Adhesive Patch,Medicated 1 patch transdermal DAILY 30 Days Qty: 30 0RF Protocol: Apply to: Apply to: left shoulder area docusate sodium 100 mg Capsule 100 mg PO BID PRN (Reason: constipation) 30 Days Qty: 60 0RF atorvastatin 40 mg tablet 40 mg PO BEDTIME 30 Days Qty: 30 0RF gabapentin 600 mg tablet 1 tab PO TID 30 Days Qty: 90 0RF lithium carbonate 450 mg tablet extended release 450 mg PO BID 30 Days Qty: 60 0RF fluphenazine HCl 1 mg tablet 1 mg PO BEDTIME 30 Days Qty: 30 0RF metformin 1,000 mg tablet 1 tab PO BIDWM 30 Days Qty: 60 0RF fluticasone propionate [Flonase Allergy Relief] 50 mcg/actuation [place],Suspension 1 spray INTRANASAL DAILY 30 Days Qty: 1 0RF Rx Instructions: administer into each nostril cetirizine 5 mg tablet 5 mg PO DAILY atenolol 25 mg Tablet 25 mg PO DAILY levothyroxine 175 mcg tablet 175 mcg PO DAILY clozapine 100 mg Tablet 100 mg PO BID Rx Instructions: per intermediate patient takes 175 mg in the morning and 100 mg bedtime. Last dose 04/28/25 in AM clozapine 25 mg Tablet 75 mg PO DAILY Rx Instructions: per intermediate patient takes 175 mg in the morning and 100 mg bedtime. Last dose 04/28/25 in AM metronidazole 500 mg Tablet 500 mg PO Q8H Qty: 6 0RF cefuroxime axetil 500 mg Tablet 500 mg PO Q12H Qty: 4 0RF insulin glargine 100 unit/mL Solution 15 unit SUBCUT BEDTIME Print Language: Liberian
[2025-07-07] MEDS: Albuterol Sulfate 5 MG, Albuterol/Iprat 2.5/0.5MG 3 ML 3 ML INHALE (08:38)
--- NOTE | 2025-07-07 09:30 | ECG_ITS ---
Test Reason : dyspnea Blood Pressure : */* mmHG Vent. Rate : 80 BPM Atrial Rate : 80 BPM P-R Int : 146 ms QRS Dur : 84 ms QT Int : 376 ms P-R-T Axes : 68 -18 66 degrees QTcB Int : 433 ms Normal sinus rhythm Normal ECG When compared with ECG of 05-Jun-2025 10:08, No significant change was found Referred By: Elmer Krause Electronically Signed By: TILA VOGT
[2025-07-07] MEDS: iohexoL 350 MG/ML 100 ML INFUS..BTL IV (09:56)
--- NOTE | 2025-07-07 10:18 | MHC.CM.ED ---
Patient currently in ER. Received voicemail from [facility] stating patient is active with their agency for twice a day med administration. Return referral made via [facility] so they can follow for d/c needs.
--- NOTE | 2025-07-07 10:25 | PC.NURSE ---
Pt comes from [facility]. Call received earlier in the shift from program RN Bouchra who was inquiring about an update. Bouchra provides her contact number [phone] and states when Pt is ready for d/c or any new updates she can be contacted. Call placed at this time to inform Bouchra that Pt will be admitted to the hospital. No answer but voicemail left with call back number.
--- NOTE | 2025-07-07 11:21 | PM.IMHP ---
History of Present Illness Date of Service: 07/07/25 Attending physician on admission: Neena Hernandez Chief Complaint: Shortness on breath David Carpenter is a 60 years old man with past medical history significant for schizophrenia, COPD, ongoing tobacco smoker and type 2 diabetes mellitus on insulin, essential hypertension and hyperlipidemia presents to the emergency department complaining of shortness of breath associated with productive cough over the last 2 weeks. According to ED patient was found to have oxygen saturation of 79% on room air. He denied any chest pain, abdominal pain, nausea, vomiting, fever or chills. He did not report any acute urinary symptom. He denied alcohol abuse. He smoked tobacco cigarettes, 1 pack per day. In the ED, he was found to have hypoxia, currently required OxyMask 3 L/min supplemental oxygen. There is tachypnea. There is no hypotension or tachycardic. Blood workup showed no leukocytosis. Hemoglobin is 11.5 and platelets 293. Venous blood gas showed pH of 7.39 and pCO2 of 50. There are no significant electrolyte imbalances. Renal function and LFTs are normal. Serology is negative for COVID-19, RSV and influenza. Chest CTA showed with IV contrast no evidence of PE. There was moderate emphysema and calcified plaques consistent with prior asbestos exposure. ECG showed normal sinus rhythm, heart rate 80 beats per minute without acute ischemic changes. ED tx: Prednisone 60 mg p.o. daily, nebs x2. Review of Systems Review of Systems: All 12 systems were reviewed and normal except as noted in HPI. COUNTS INCLUDE 234 BEDS AT THE [facility] Medical History Fall Encounter for staple removal Routine medical exam Hypothyroidism Diabetes mellitus type 2 in nonobese Hyperlipidemia Personal history of nicotine dependence Rash Loculated pleural effusion (~10/2020) Asbestos-induced pleural plaque Traumatic brain injury Schizophrenia HTN (hypertension) COPD (chronic obstructive pulmonary disease) Asthma Surgical History Status post small bowel resection Social History Household Members: Other Household Members Other:: correction Housing: Other Housing Other:: correction Do you presently have visiting nurse or other home services: Yes Alcohol intake: never Comment: Previously charted. Patient Tobacco Use Status: Current everyday Tobacco user Tobacco use type: Cigarette Cigarette Packs Per Day: 1 Cigarettes Per Day: 20.0 Years Smoked: 40 Smoked in Last 30 Days: No e-Cigarette/Vaping Use: Currently Using Second Hand Smoke Exposure: Yes Use of substances other than those prescribed or required for medical reasons: No Substance Use Type: Marijuana Advance Directives: No Advance Directives Information Provided: No Do you have a plan to hurt others: No Plan service: No Current occupational status: disabled Sexual orientation: Unable to collect Meds Allergies Allergy/AdvReac Type Severity Reaction Status Date / Time amoxicillin (AMOXICILLIN) Allergy Intermediate SKIN RASH Verified 07/06/25 22:04 egg (EGGS) Allergy Intermediate HIVES, Verified 07/06/25 22:04 VOMITING Penicillins (PENICILLINS) Allergy Intermediate SKIN RASH Verified 07/06/25 22:04 Sulfa (Sulfonamide Allergy Intermediate SKIN RASH Verified 07/06/25 22:04 Antibiotics) (SULFA (SULFONAMIDE ANTIBIOTICS)) trimethoprim (TRIMETHOPRIM) Allergy Intermediate SKIN RASH Verified 07/06/25 22:04 penicillin V Allergy Unknown Unknown Verified 07/06/25 22:04 haloperidol (From Haldol) Allergy Unknown Verified 07/06/25 22:04 methylprednisolone (From Allergy Unknown Verified 07/06/25 22:04 Solu-Medrol) penicillin Allergy Unknown Unknown Uncoded 07/06/25 22:04 sultamicillin Allergy Unknown Unknown Uncoded 07/06/25 22:04 trimethoprim Allergy Unknown Unknown Uncoded 07/06/25 22:04 Active Medications: Current Medications Acetaminophen (Acetaminophen 325 Mg Tablet) 650 mg PO Q6H PRN PRN Reason: Pain, Mild 1-3,fever,headache Albuterol Sulfate (Albuterol Sulfate (0.083%) 2.5 Mg/3 Ml Vial.Neb) 2.5 mg INHALE Q3H PRN PRN Reason: Shortness of Breath/Wheezing Albuterol/Ipratropium (Albuterol/Iprat 2.5/0.5mg 3 Ml Ampul.Neb) 3 ml INHALE RQ4H WHILE AWAKE CAROLINE Calcium Carbonate (Calcium Carbonate 750 Mg Tab.Chew) 750 mg PO Q4H PRN PRN Reason: Heartburn Dextrose (Dextrose 50 % 25 Gm/50 Ml Syringe) 25 gm IVPUSH Q15M PRN; Protocol PRN Reason: per Hypoglycemia Standing Ord. Enoxaparin Sodium (Enoxaparin Sodium 40 Mg/0.4 Ml Syringe) 40 mg SUBCUT Q24H [facility] Glucose (Glucose Gel 15 Gm Gel..Gram.) 15 gm PO Q15M PRN; Protocol PRN Reason: per Hypoglycemia Standing Ord. Insulin Human Lispro (Insulin Lispro 100 Unit/Ml 3 Ml Vial) 0 unit SUBCUT QIDACHS CAROLINE; Protocol Magnesium Hydroxide (Milk Of Magnesia 30 Ml Oral.Susp) 30 ml PO DAILY PRN PRN Reason: Constipation Prednisone (Prednisone 5 Mg Tablet) 5 mg PO DAILY [facility] Sodium Chloride (0.9 % Sodium Chloride Flush 3 Ml Syringe) 3 ml IVFLUSH QSHIFT [facility] Home Medications ?Medication ?Instructions ?Recorded ?Confirmed ?Last Taken ?Type insulin lispro 100 unit/mL See Protocol subcut TIDAC 03/02/24 07/07/25 03/02/24 17:07 History subcutaneous solution (Humalog U-100 Insulin) atenolol 25 mg tablet 25 mg PO DAILY 04/28/25 07/07/25 Unknown History cetirizine 5 mg tablet 5 mg PO DAILY 04/28/25 07/07/25 Unknown History levothyroxine 175 mcg tablet 175 mcg PO DAILY 04/28/25 07/07/25 Unknown History clozapine 100 mg tablet 100 mg PO BID 04/29/25 07/07/25 Unknown History clozapine 25 mg tablet 75 mg PO DAILY 04/29/25 07/07/25 Unknown History docusate sodium 100 mg capsule 100 mg PO DAILY 07/07/25 07/07/25 Unknown History fluphenazine decanoate 25 mg/mL 25 mg subcut Q2W 07/07/25 07/07/25 Unknown History injection solution insulin glargine-yfgn 100 unit/mL 15 unit subcut BEDTIME 07/07/25 07/07/25 Unknown History (3 mL) subcutaneous pen Physical Exam Vital Signs and Narrative: Vital Signs: Last Vital Signs Temp 99.1 F 07/07/25 09:20 Pulse 79 07/07/25 09:20 Resp 22 H 07/07/25 09:20 BP 144/69 H 07/07/25 09:20 Pulse Ox 93 07/07/25 09:20 O2 Del Method Oxymask 07/07/25 09:20 O2 Flow Rate 3 07/07/25 09:20 Oxygen Flow Rate 2 07/06/25 22:06 BMI result Body Mass Index 20.5 Constitutional - Awake and Alert, No apparent distress. OxyMask in place. HEENT - PERRLA, EOMI Heart - S1S2, RRR, No edema Lungs - Normal lung expansion, Normal respiratory effort, No respiratory distress. Tachypnea. Bilateral rhonchi. No wheezing. Abdomen - NT / ND; +BS; No rebound or guarding Extremities - no calf tenderness bilaterally, no swelling Musculoskeletal - Normal inspection, normal ROM Skin - Warm/Dry Neurological - Alert & oriented x3, CN II-XII in tact, 5/5 strength BUE and BLE Psychological - Appropriate affect Results Labs 07/06/25 22:20 07/06/25 22:20 Labs: Laboratory Results - last 24 hr 07/06/25 22:20 MCV 85.9 MCH 26.5 L MCHC 30.8 L RDW 18.2 H Plt Count 293 MPV 9.2 L Immature Gran % (Auto) 0.4 Neut % (Auto) 72.2 Lymph % (Auto) 19.4 L [place] % (Auto) 7.5 Eos % (Auto) 0.2 Baso % (Auto) 0.3 Lymph # (Auto) 2.1 [place] # (Auto) 0.8 Eos # (Auto) 0.0 Baso # (Auto) 0.0 Abs Immat Gran (auto) 0.04 H Absolute Neuts (auto) 7.6 Absolute Nucleated RBC 0.000 Nucleated RBC % (auto) 0.0 Anion Gap 12 Estim Creat Clear Calc 110.6 Estimated GFR > 60 Random Glucose 103 Calcium 8.8 Magnesium 1.9 Total Bilirubin 0.4 AST 18 ALT < 6 Alkaline Phosphatase 80 Total Protein 6.2 L Albumin 3.7 Influenza Type A (PCR) NEGATIVE Influenza Type B (PCR) NEGATIVE RSV RNA Qual (PCR) NEGATIVE SARS-CoV-2 RNA (RT-PCR) NEGATIVE Imaging Radiologist's Impressions: Impressions Chest CTA 07/07/25 09:44 IMPRESSION: No definite evidence of pulmonary emboli. Moderate emphysema. Calcified pleural plaques, consistent with prior asbestos exposure. Because moderate emphysema is an independent risk factor for lung cancer, consider entering the patient into a program of yearly lung cancer screening with low dose chest CT. Electronically signed by: Adal Angela MD 07/07/2025 10:25 AM EDT Assessment and Plan (1) Acute exacerbation of chronic obstructive pulmonary disease: Status: Acute (2) Acute hypoxic respiratory failure: Status: Acute Plan David Carpenter is a 60 y/o man presents with: Acute hypoxic respiratory failure secondary to acute chronic obstructive pulmonary disease exacerbation. Start empiric IV antibiotic therapy with azithromycin. Continue bronchodilator therapy and steroids. Type 2 diabetes mellitus. BG checks before meals and bedtime. Continue Lantus and insulin sliding scale. Metformin on hold due to recent IV contrast. Diabetic diet. Essential hypertension. Continue atenolol. Hyperlipidemia. Continue atorvastatin. Schizophrenia/mood disorder. Continue clozapine and lithium. Hypothyroidism. Continue levothyroxine. Diabetic neuropathy. Continue gabapentin. BPH. Continue tamsulosin. Code status: Full DVT prophylaxis: Lovenox Patient will need hospitalization for at least 2 midnights for acute hypoxic respiratory failure due to COPD exacerbation treatment with bronchodilator therapy, steroids and empiric IV antibiotic therapy. Quality Stroke Does the patient have a stroke diagnosis?: No VTE Prior VTE?: No VTE Risk Level:: Medical - moderate - high VTE Device Contraindication: Treatment Not Indicated VTE Drug Contraindication: N/A - Med Ordered
[2025-07-07] MEDS: Nicotine 21 MG PATCH.TD24 TRANSDERMA (11:35)
--- NOTE | 2025-07-07 11:50 | PC.RT ---
Pt offered scheduled breathing tx. Pt refused, stated he wanted to wait and wanted to nap. RT advised pt that his next tx would be approx 1500 and to not hesitate to let RN or aids know if he feels SOB before then. Pt comfortable at this time.
--- NOTE | 2025-07-07 12:04 | PHA.MEDREC ---
Pharmacy Consult ? Medication Reconciliation Pharmacy has completed the medication reconciliation. Patient is noted to be a poor historian. There was a med list in patients chart from [facility], however is was outdated. Attempted [facility] [phone] @ 12:06pm but phone number is not accepting calls at this time. Utilized claims to confirm med list. Called [place] pharmacy and they confirmed Insulin Glargine Yfgn 15 units at bedtime and Flupenazine 25mg/ML 1 Ml every 2 weeks.
[2025-07-07 13:40] LABS: Glucose, Whole Blood 311 mg/dL (60-115)
[2025-07-07] MEDS: 0.9 % Sodium Chloride Flush 3 ML SYRINGE IVFLUSH ×2 (16:03→20:45)
[2025-07-07 16:25] LABS: Glucose, Whole Blood 234 mg/dL (60-115)
--- NOTE | 2025-07-07 17:03 | PM.EVENT ---
Event Note Date of Service: 07/07/25 Event Note: 4:51 PM - Pt endorsed vague thoughts of SI/HI currently, but states he has no plans/method to do so. Pt was very vague about the statements. He scored Low risk of the [place] Suicide Scale. Psychiatry consult and 1:1 observation placed. Section 12 A form filled out. Time Spent With Patient Time: Total time managing care of this patient today ____ minutes.
[2025-07-07] MEDS: Albuterol/Iprat 2.5/0.5MG 3 ML AMPUL.NEB INHALE (19:54)
[2025-07-07 20:20] LABS: Glucose, Whole Blood 202 mg/dL (60-115)
[2025-07-07] MEDS: Insulin Glargine,Hum.rec.anlog 100 UNIT/ML 10 ML VIAL 15 UNIT SUBCUT (20:45)
[2025-07-08] VITALS (10 sets, daily range): BP systolic 94–134; BP diastolic 50–62; PULSE 59–88; RESP 14–19; TEMP 36.9–37.3; O2SAT 92–98
[2025-07-08 07:38] LABS: MANUAL DIFF FLAG NO
[2025-07-08 07:38] LABS: Glucose, Whole Blood 100 mg/dL (60-115)
[2025-07-08 07:57] LABS: Hematocrit 37.6 % (42.0-52.0); Hemoglobin 11.4 g/dl (14.0-18.0); Imm Gran Abs Auto 0.03 X10*3/uL (0.00-0.03); Imm Gran Pct Auto 0.3 % (0.0-0.4); Lymphocytes Absolute Auto 2.4 X10*3/uL (1.2-4.9); Mean Corpuscular HGB Conc 30.3 g/dl (31.0-36.0); Mean Corpuscular Hemoglobin 26.3 pg (27.0-33.0); Mean Corpuscular Volume 86.8 fL (80.0-98.0); NRBC Abs Auto 0.000 X10*3/uL (0.0-0.012); NRBC Pct Auto 0.0 /100WBC (0.0-0.2); Platelet Count 296 X10*3/uL (160-400); Red Blood Count 4.33 X10*6/uL (4.60-5.80); White Blood Count 8.6 X10*3/uL (4.8-10.8)
[2025-07-08 08:00] LABS: Anion Gap 9 (12-20); Blood Urea Nitrogen 10 mg/dL (9-16); Calcium 9.4 mg/dL (8.4-10.2); Carbon Dioxide 31 mmol/L (22-29); Chloride 103 mmol/L (96-108); Creatinine Clr Calc Pharmacy 114.4; Estimated Glomerular Filt Rate > 60; Potassium 3.9 mmol/L (3.3-5.1); Sodium 139 mmol/L (135-145)
[2025-07-08] MEDS: Fluticasone/Umeclidinium/Vilanterol 100/62.5/25 BLST.W.DEV 1 PUFF INHALE (08:06)
[2025-07-08] MEDS: Albuterol/Iprat 2.5/0.5MG 3 ML AMPUL.NEB INHALE ×3 (08:06→19:27)
[2025-07-08] MEDS: Nicotine 21 MG PATCH.TD24 TRANSDERMA (09:10)
[2025-07-08] MEDS: 0.9 % Sodium Chloride Flush 3 ML SYRINGE IVFLUSH ×3 (09:11→21:33)
--- NOTE | 2025-07-08 09:47 | MHC.CM.PN ---
IMM 07/08/25, Pt. lives in a fpc, run by [facility]. PCP confirmed: Ginger Thurman, HCP on file and confirmed: Levy. Pt. does not use [facility] [employer] services, he is independent with ADL's. He has daily visits from a nurse thru [facility] to give his meds. For DME, he has a walker if he needs, but said he walks with out it. alf staff to give a ride home at DC, DCP: home, resume supportive services. CM to follow for DC needs.
--- NOTE | 2025-07-08 10:51 | HO.PM.IMPN ---
Subjective Subjective Date of Service: 07/08/25 Interval History: sob improving Physical Exam Exam: Exam: General: AO X 3, no acute distress Resp: Crackles at bases with poor air movement bilateral, no accessory muscles used CVS: S1,S2,RRR GI: soft, non tender, non distended Neuro: motor grossly intact, alert Psych: appropriate affect, appropriate insight Vital Signs: Vital Signs: Last Vital Signs Temp 98.7 F 07/08/25 07:40 Pulse 78 07/08/25 08:02 Resp 18 07/08/25 07:40 BP 105/50 L 07/08/25 07:40 Pulse Ox 97 07/08/25 07:40 O2 Del Method Oxymask 07/08/25 07:40 O2 Flow Rate 2 07/08/25 07:40 Oxygen Flow Rate 2 07/06/25 22:06 BMI result Body Mass Index 19.7 Objective Data Active Medications Acetaminophen (Acetaminophen 325 Mg Tablet) 650 mg PO Q6H PRN PRN Reason: Pain, Mild 1-3,fever,headache Albuterol Sulfate (Albuterol Sulfate (0.083%) 2.5 Mg/3 Ml Vial.Neb) 2.5 mg INHALE Q3H PRN PRN Reason: Shortness of Breath/Wheezing Albuterol/Ipratropium (Albuterol/Iprat 2.5/0.5mg 3 Ml Ampul.Neb) 3 ml INHALE RQ4H WHILE AWAKE [facility] Last Admin: 07/08/25 08:06 Dose: 3 ml Documented By: MISSAEL Atenolol (Atenolol 25 Mg Tablet) 25 mg PO DAILY [facility]; Protocol Last Admin: 07/08/25 09:13 Dose: 25 mg Documented By: SAPNA Atorvastatin Calcium (Atorvastatin Calcium 40 Mg Tablet) 40 mg PO BEDTIME [facility] Last Admin: 07/07/25 20:44 Dose: 40 mg Documented By: TITO Calcium Carbonate (Calcium Carbonate 750 Mg Tab.Chew) 750 mg PO Q4H PRN PRN Reason: Heartburn Clozapine (Clozapine 100 Mg Tablet) 100 mg PO BID [facility] Last Admin: 07/08/25 09:13 Dose: 100 mg Documented By: SAPNA Clozapine (Clozapine 25 Mg Tablet) 75 mg PO DAILY [facility] Last Admin: 07/08/25 09:12 Dose: 75 mg Documented By: SAPNA Dextrose (Dextrose 50 % 25 Gm/50 Ml Syringe) 25 gm IVPUSH Q15M PRN; Protocol PRN Reason: per Hypoglycemia Standing Ord. Docusate Sodium (Docusate Sodium 100 Mg Capsule) 100 mg PO DAILY [facility] Last Admin: 07/08/25 09:13 Dose: 100 mg Documented By: SAPNA Enoxaparin Sodium (Enoxaparin Sodium 40 Mg/0.4 Ml Syringe) 40 mg SUBCUT Q24H [facility] Last Admin: 07/08/25 09:11 Dose: 40 mg Documented By: SAPNA Fluticasone Propionate (Fluticasone Propionate Nasal 16 Gm [place]) 1 spray NOSTRIL-B DAILY [facility] Fluticasone/Umeclidinium/Vilanterol (Fluticasone/Umeclidinium/Vilanterol 100/62.5/25 Blst.W.Dev) 1 puff INHALE RDAILY [facility] Last Admin: 07/08/25 08:06 Dose: 1 puff Documented By: MISSAEL Gabapentin (Gabapentin 600 Mg Tablet) 600 mg PO TID [facility] Last Admin: 07/08/25 09:13 Dose: 600 mg Documented By: SAPNA Glipizide (Glipizide Xl 2.5 Mg Tab.Er.24) 2.5 mg PO DAILY [facility] Last Admin: 07/08/25 09:13 Dose: 2.5 mg Documented By: SAPNA Glucose (Glucose Gel 15 Gm Gel..Gram.) 15 gm PO Q15M PRN; Protocol PRN Reason: per Hypoglycemia Standing Ord. Azithromycin 500 mg/ Sodium (Chloride) 250 mls @ 125 mls/hr IV Q24H [facility] Last Infusion: 07/07/25 14:57 Dose: Infused Documented By: ARMANDO Insulin Glargine (Insulin Glargine,Hum.Rec.Anlog 100 Unit/Ml 10 Ml Vial) 15 unit SUBCUT BEDTIME [facility] Last Admin: 07/07/25 20:45 Dose: 15 unit Documented By: TITO Insulin Human Lispro (Insulin Lispro 100 Unit/Ml 3 Ml Vial) 0 unit SUBCUT QIDACHS [facility]; Protocol Last Admin: 07/08/25 07:56 Dose: Not Given Documented By: SAPNA Non-Admin Reason: No Insulin Coverage Levothyroxine Sodium (Levothyroxine Sodium 175 Mcg Tablet) 175 mcg PO DAILY@0600 [facility] Last Admin: 07/08/25 06:01 Dose: 175 mcg Documented By: TITO Anna Carbonate (Anna Carbonate Er 450 Mg Tablet.Er) 450 mg PO BID [facility] Last Admin: 07/08/25 09:13 Dose: 450 mg Documented By: SAPNA Loratadine (Loratadine 10 Mg Tablet) 10 mg PO DAILY [facility] Last Admin: 07/08/25 09:13 Dose: 10 mg Documented By: SAPNA Magnesium Hydroxide (Milk Of Magnesia 30 Ml Oral.Susp) 30 ml PO DAILY PRN PRN Reason: Constipation Nicotine (Nicotine 21 Mg Patch.Td24) 21 mg TRANSDERMA DAILY [facility] Last Admin: 07/08/25 09:10 Dose: 21 mg Documented By: SAPNA Prednisone (Prednisone 10 Mg Tablet) 50 mg PO DAILY [facility] Last Admin: 07/08/25 09:13 Dose: 50 mg Documented By: SAPNA Sodium Chloride (0.9 % Sodium Chloride Flush 3 Ml Syringe) 3 ml IVFLUSH QSHIFT [facility] Last Admin: 07/08/25 09:11 Dose: 3 ml Documented By: SAPNA Tamsulosin HCl (Tamsulosin Hcl 0.4 Mg Capsule) 0.4 mg PO BEDTIME [facility] Last Admin: 07/07/25 20:45 Dose: 0.4 mg Documented By: TITO Labs 07/08/25 07:18 07/08/25 07:18 Labs: Laboratory Results - last 24 hr 07/07/25 07/07/25 07/07/25 13:36 16:20 20:14 MCV MCH MCHC RDW Plt Count MPV Immature Gran % (Auto) Neut % (Auto) Lymph % (Auto) [place] % (Auto) Eos % (Auto) Baso % (Auto) Lymph # (Auto) [place] # (Auto) Eos # (Auto) Baso # (Auto) Abs Immat Gran (auto) Absolute Neuts (auto) Absolute Nucleated RBC Nucleated RBC % (auto) Anion Gap Estim Creat Clear Calc Estimated GFR POC Glucose 311 H 234 H 202 H Random Glucose Calcium 07/08/25 07/08/25 07:18 07:31 MCV 86.8 MCH 26.3 L MCHC 30.3 L RDW 17.3 H Plt Count 296 MPV 9.6 Immature Gran % (Auto) 0.3 Neut % (Auto) 62.4 Lymph % (Auto) 28.2 [place] % (Auto) 8.7 Eos % (Auto) 0.1 Baso % (Auto) 0.3 Lymph # (Auto) 2.4 [place] # (Auto) 0.8 Eos # (Auto) 0.0 Baso # (Auto) 0.0 Abs Immat Gran (auto) 0.03 Absolute Neuts (auto) 5.4 Absolute Nucleated RBC 0.000 Nucleated RBC % (auto) 0.0 Anion Gap 9 L Estim Creat Clear Calc 114.4 Estimated GFR > 60 POC Glucose 100 Random Glucose 91 Calcium 9.4 D Assessment and Plan (1) Schizophrenia: Status: Acute Plan 60M PMH for schizophrenia, COPD, diabetes, hypertension, hyperlipidemia presented with shortness of breath and hypoxia Acute hypoxic respiratory failure secondary to COPD with acute decompensation. Steroids, azithromycin, DuoNebs Diabetes Insulin sliding scale Hypertension Atenolol Hyperlipidemia Statin Schizophrenia Clozapine, lithium Hypothyroid Levothyroxine BPH Flomax DVT prophylaxis Lovenox Full Code reason for continued hospitalization: Short of breath Quality Stroke Does the patient have a stroke diagnosis?: No VTE Prior VTE?: No VTE Risk Level:: Medical - moderate - high VTE Device Contraindication: Treatment Not Indicated VTE Drug Contraindication: N/A - Med Ordered
--- NOTE | 2025-07-08 11:23 | P.CDIM_ITS ---
PROVIDER RESPONSE TEXT: To clarify, the appropriate diagnosis supported by the clinical indicators: Diabetes mellitus Type 2 with hyperglycemia: Probable QUERY TEXT: PHYSICIAN'S DOCUMENTATION REQUEST Date of Query: 07/08/2025 11:15 AM EDT Patient Name: David Lantigua Admit Date: 07/07/2025 Dear Eugene Cisneros MD, A review of the medical record indicates additional documentation may be needed. Please review below and update the documentation accordingly. Clinical Indicators: LABS: POC glucose 331 H 202 H Insulin DM2 Please clarify the following regarding the Complications of Diabetes Mellitus (DM): Diabetes mellitus Type 2 with hyperglycemia resolved, possible, probable, suspected, etc. Other specifics to lab findings Other (explain) Clinically unable to determine (explain) Thank you, Darlene Monzon, CCS, CDIS Use of terms such as suspected, likely, concern for, or probable (associated with a specific diagnosis that is being evaluated, monitored, or treated as if it exists) are acceptable and can be coded in the inpatient setting, when documented at the time of discharge. Please use your independent medical judgment in providing your response. THIS QUERY IS PART OF THE PERMANENT MEDICAL RECORD
[2025-07-08 12:24] LABS: Glucose, Whole Blood 149 mg/dL (60-115)
[2025-07-08 16:26] LABS: Glucose, Whole Blood 203 mg/dL (60-115)
[2025-07-08 20:22] LABS: Glucose, Whole Blood 285 mg/dL (60-115)
[2025-07-08] MEDS: Insulin Glargine,Hum.rec.anlog 100 UNIT/ML 10 ML VIAL 15 UNIT SUBCUT (21:32)
[2025-07-08 22:38] LABS: Glucose, Whole Blood 386 mg/dL (60-115)
[2025-07-09 04:00] VITALS: BP 111/55; PULSE 59; RESP 16; TEMP 36.7; O2SAT 98
[2025-07-09 07:16] LABS: Hematocrit 37.9 % (42.0-52.0); Hemoglobin 11.5 g/dl (14.0-18.0); Mean Corpuscular HGB Conc 30.3 g/dl (31.0-36.0); Mean Corpuscular Hemoglobin 26.0 pg (27.0-33.0); Mean Corpuscular Volume 85.6 fL (80.0-98.0); NRBC Abs Auto 0.000 X10*3/uL (0.0-0.012); NRBC Pct Auto 0.0 /100WBC (0.0-0.2); Platelet Count 285 X10*3/uL (160-400); Red Blood Count 4.43 X10*6/uL (4.60-5.80); White Blood Count 10.5 X10*3/uL (4.8-10.8)
[2025-07-09 07:30] LABS: Anion Gap 11 (12-20); Blood Urea Nitrogen 13 mg/dL (9-16); Calcium 9.0 mg/dL (8.4-10.2); Carbon Dioxide 30 mmol/L (22-29); Chloride 103 mmol/L (96-108); Creatinine Clr Calc Pharmacy 106.1; Estimated Glomerular Filt Rate > 60; Magnesium 2.0 mg/dL (1.6-2.6); Potassium 4.0 mmol/L (3.3-5.1); Sodium 140 mmol/L (135-145)
[2025-07-09 07:36] LABS: B Type Natriuretic Peptide 45 pg/mL (<100)
[2025-07-09 07:52] VITALS: BP 102/46; PULSE 59; RESP 16; TEMP 37.2
[2025-07-09 07:57] LABS: Glucose, Whole Blood 123 mg/dL (60-115)
[2025-07-09] MEDS: Nicotine 21 MG PATCH.TD24 TRANSDERMA (08:26)
[2025-07-09] MEDS: 0.9 % Sodium Chloride Flush 3 ML SYRINGE IVFLUSH (08:30)
--- NOTE | 2025-07-09 08:51 | P.DS_ITS ---
DS: Providers Provider Date of Service: 07/09/25 Date of admission: 07/07/25 09:36 Date of discharge: 07/09/25 Primary care physician: Ginger Valero MD Consults: 07/07/25 16:54 Consult to Psychiatry Routine Consulting Provider: [facility] [place] [facility] Reason for consultation: Suicidal ideation Has provider been notified: No DS: Diagnosis Discharge Diagnosis (1) Schizophrenia: Status: Acute DS: Summary Hospital Course Hospital Course: from initial hpi: 60 years old man with past medical history significant for schizophrenia, COPD, ongoing tobacco smoker and type 2 diabetes mellitus on insulin, essential hypertension and hyperlipidemia presents to the emergency department complaining of shortness of breath associated with productive cough over the last 2 weeks. According to ED patient was found to have oxygen saturation of 79% on room air. He denied any chest pain, abdominal pain, nausea, vomiting, fever or chills. He did not report any acute urinary symptom. He denied alcohol abuse. He smoked tobacco cigarettes, 1 pack per day. In the ED, he was found to have hypoxia, currently required OxyMask 3 L/min supplemental oxygen. There is tachypnea. There is no hypotension or tachycardic. Blood workup showed no leukocytosis. Hemoglobin is 11.5 and platelets 293. Venous blood gas showed pH of 7.39 and pCO2 of 50. There are no significant electrolyte imbalances. Renal function and LFTs are normal. Serology is negative for COVID-19, RSV and influenza. Chest CTA showed with IV contrast no evidence of PE. There was moderate emphysema and calcified plaques consistent with prior asbestos exposure. ECG showed normal sinus rhythm, heart rate 80 beats per minute without acute ischemic changes. ED tx: Prednisone 60 mg p.o. daily, nebs x2. hospital course: Patient was admitted for acute hypoxic respiratory failure secondary to COPD with acute decompensation. Was treated with steroids azithromycin and DuoNebs a nd symptoms resolved was able to be weaned to room air and will be discharged on 5 more days of prednisone azithromycin. During hospitalization there was concern for SI and HI although patient denies this and does not currently appear to be at risk. Can follow up with Psychiatry in the community. For diabetes was continued on insulin sliding scale. For hypertension was continued on atenolol. For hyperlipidemia was continued on statin. For schizophrenia was continued on Clozaril and lithium. For hypothyroid was continued on levothyroxine. For BPH was continued on Flomax. Time Attestation Discharge Coordination Time (in mins): 35 Quality: Safe Use of Opioids Does Pt have an Active Cancer Diagnosis on the Problem List?: No Quality: Stroke Does the patient have a stroke diagnosis?: No Physical Exam Exam: Exam: General: AO X 3, no acute distress Resp: Crackles at bases with improved air movement bilateral, no accessory muscles used CVS: S1,S2,RRR GI: soft, non tender, non distended Neuro: motor grossly intact, alert Psych: appropriate affect, appropriate insight Vital Signs: Vital Signs: Last Vital Signs Temp 99 F 07/09/25 07:52 Pulse 59 07/09/25 07:52 Resp 16 07/09/25 07:52 BP 102/46 L 07/09/25 07:52 Pulse Ox 98 07/09/25 04:00 O2 Del Method Oxymask 07/09/25 04:00 O2 Flow Rate 2 07/09/25 04:00 Oxygen Flow Rate 2 07/06/25 22:06 BMI result Body Mass Index 19.7 DS: Data Data Completed and Pending Completed studies during hospitalization [Text1]: Procedures Excision of Right Foot Subcutaneous Tissue and Fascia, Open Approach (02/15/24) Excision of Small Intestine, Open Approach (02/15/24) Introduction of Anesthetic Agent into Peripheral Nerves and Plexi, Percutaneous Approach (02/15/24) Labs on day of discharge: Laboratory Results - last 24 hr 07/08/25 07/08/25 07/08/25 12:17 16:20 20:18 WBC RBC Hgb Hct MCV MCH MCHC RDW Plt Count MPV Absolute Nucleated RBC Nucleated RBC % (auto) Sodium Potassium Chloride Carbon Dioxide Anion Gap BUN Creatinine Estim Creat Clear Calc Estimated GFR POC Glucose 149 H 203 H 285 H Random Glucose Calcium Magnesium B-Natriuretic Peptide 07/08/25 07/09/25 07/09/25 22:33 06:42 07:50 WBC 10.5 RBC 4.43 L Hgb 11.5 L Hct 37.9 L MCV 85.6 MCH 26.0 L MCHC 30.3 L RDW 17.2 H Plt Count 285 MPV 9.5 Absolute Nucleated RBC 0.000 Nucleated RBC % (auto) 0.0 Sodium 140 Potassium 4.0 Chloride 103 Carbon Dioxide 30 H Anion Gap 11 L BUN 13 Creatinine 0.69 Estim Creat Clear Calc 106.1 Estimated GFR > 60 POC Glucose 386 H* 123 H Random Glucose 122 H Calcium 9.0 Magnesium 2.0 B-Natriuretic Peptide 45 Discharge Plan Discharge Anticipated Discharge Date/Time: 07/09/25 08:49 Patient Disposition: Home, Self-Care Discharge Diagnosis: copd Referrals: Ginger Fulton MD [Primary Care Provider, Internal Medicine] - 1 Week Discharge Medications: New prednisone 20 mg tablet 40 mg PO DAILY 5 Days Qty: 10 0RF azithromycin 500 mg tablet 500 mg PO DAILY 5 Days Qty: 5 0RF Continued insulin lispro [Humalog U-100 Insulin] 100 unit/mL solution See Protocol subcut [facility] Protocol: Insulin Correction Scale Less than or equal to 110 ---- Give (units): 0 111 to 150 Give (units): 0 151 to 200 Give (units): 2 201 to 250 Give (units): 6 251 to 300 Give (units): 8 301 to 350 Give (units): 10 Greater than 350 Give (units): 12 Call MD if Blood Glucose > : 350 albuterol sulfate [Ventolin HFA] 90 mcg/actuation Hfa Aerosol Inhaler 2 puff inhalation RQ4H PRN (Reason: Shortness Of Breath) 30 Days Qty: 1 0RF nicotine (polacrilex) 2 mg Lozenge 2 mg buccal Q2H PRN (Reason: Nicotine Cravings) 30 Days Qty: 108 0RF tamsulosin 0.4 mg Capsule 0.4 mg PO BEDTIME 30 Days Qty: 30 0RF glipizide 2.5 mg Tablet Extended Release 24hr 2.5 mg PO DAILY 30 Days Qty: 30 0RF Trelegy Ellipta 100-62.5-25 mcg Blister With Device 1 inh inhalation RDAILY 30 Days Qty: 60 0RF lidocaine [Lidocaine Pain Relief] 4 % Adhesive Patch,Medicated 1 patch transdermal DAILY 30 Days Qty: 30 0RF Protocol: Apply to: Apply to: left shoulder area atorvastatin 40 mg tablet 40 mg PO BEDTIME 30 Days Qty: 30 0RF gabapentin 600 mg tablet 1 tab PO TID 30 Days Qty: 90 0RF lithium carbonate 450 mg tablet extended release 450 mg PO BID 30 Days Qty: 60 0RF metformin 1,000 mg tablet 1 tab PO BIDWM 30 Days Qty: 60 0RF fluticasone propionate [Flonase Allergy Relief] 50 mcg/actuation [place],Suspension 1 spray INTRANASAL DAILY 30 Days Qty: 1 0RF Rx Instructions: administer into each nostril cetirizine 5 mg tablet 5 mg PO DAILY atenolol 25 mg Tablet 25 mg PO DAILY levothyroxine 175 mcg tablet 175 mcg PO DAILY clozapine 100 mg Tablet 100 mg PO BID clozapine 25 mg Tablet 75 mg PO DAILY Rx Instructions: per [facility] patient takes 175 mg in the morning and 100 mg bedtime. Last dose 04/28/25 in AM fluphenazine decanoate 25 mg/mL solution 25 mg subcut Q2W docusate sodium 100 mg capsule 100 mg PO DAILY insulin glargine-yfgn 100 unit/mL (3 mL) insulin pen 15 unit SUBCUT BEDTIME Discharge Orders: Discharge Order (Routine); Ordered 07/09/25 Ordered By: Eugene Cisneros Diet: Advance to usual diet Activity on Discharge: As tolerated Stand Alone Forms: Patient Portal Discharge page Print Language: Ukrainian Care Plan Goals: recovery Health Concerns: copd Plan of Treatment: 5 more days prednisone and azithro Assessment: see above Patient Instructions: COPD (Chronic Obstructive Pulmonary Disease) (ED)
[2025-07-09 09:00] VITALS: BP 102/46; PULSE 70
--- NOTE | 2025-07-09 10:17 | MHC.CM.PN ---
Addendum entered by Melida Carroll 07/09/25 10:34: TRANSPORT IS BOOKED FOR 1500 HOURS WITH [facility]. JOSELIN AWARE PTS HCP, ALISON [phone] NOTIFIED VIA VM MESSAGE Original Note: PT CLEARED TO DC BACK TO [facility]AY CM SPOKE TO EMPLOYMENT LAW SPECIALIST, JOSELIN [phone] SHE REPORTS PT CAN RETURN ANYTIME, HOWEVER HE GOES BY [facility] REPORTS MEDS NEED TO BE SENT TO [facility], AWARE THEY ONLY REQUIRE THE SIGNED DCS FOR PAPERWORK. FELICE WILL INFORM JOSELIN ONCE A TRANSPORT TIME IS ARRANGED
[2025-07-09 11:19] VITALS: BP 103/55; PULSE 61; RESP 16; TEMP 36.6; O2SAT 95
[2025-07-09 11:36] LABS: Glucose, Whole Blood 215 mg/dL (60-115)
[2025-07-09 14:28] VITALS: PULSE 8; RESP 15; O2SAT 96
[2025-07-09] MEDS: Albuterol/Iprat 2.5/0.5MG 3 ML AMPUL.NEB INHALE (14:28)
[2025-07-09 15:46] LABS: Glucose, Whole Blood 134 mg/dL (60-115)
== END 2025-07-09 15:25 | disposition home health service (06) | DRG 190 ==
LOC: HO.ED 07-07 08:23 → HO.EDOVER 07-07 10:04 → HO.IMC 07-07 14:43
PROVIDERS: Internal Medicine; Admitting Provider Family Medicine; Emergency Provider Emergency Medicine; PCP Internal Medicine; Visit Provider Internal Medicine
DX: J43.9 Emphysema, unspecified (principal); J96.01 Acute respiratory failure with hypoxia; R45.851 Suicidal ideations; E11.65 Type 2 diabetes mellitus with hyperglycemia; E03.9 Hypothyroidism, unspecified; F17.210 Nicotine dependence, cigarettes, uncomplicated; F20.9 Schizophrenia, unspecified; E11.40 Type 2 diabetes mellitus with diabetic neuropathy, unspecified; N40.0 Benign prostatic hyperplasia without lower urinary tract symptoms; R45.850 Homicidal ideations; Z20.822 Contact with and (suspected) exposure to COVID-19; Z71.6 Tobacco abuse counseling; Z79.4 Long term (current) use of insulin; Z79.51 Long term (current) use of inhaled steroids; Z79.899 Other long term (current) drug therapy
CPT/HCPCS: 36415; 71045; 71275; 80048; 80053; 82947; 83735; 83880; 85025; 85027; 87637; 93005; 94640; 99285; J0456; J1650; Q9967

== ENCOUNTER → 2025-07-07 09:28 | Outpatient (BNV) | payer MEDICARE, MEDICAID, SELFPAY | PROVIDERS: Admitting Provider Family Medicine; Emergency Provider Emergency Medicine; PCP Internal Medicine; Visit Provider Radiology Diagnostic Radiology | DX: R06.00 Dyspnea, unspecified (principal) | CPT/HCPCS: 71275 ==

== ENCOUNTER → 2025-07-07 09:30 | Outpatient (BNV) | payer MEDICARE, MEDICAID, SELFPAY | PROVIDERS: Admitting Provider Family Medicine; Emergency Provider Emergency Medicine; PCP Internal Medicine; Visit Provider Internal Medicine | DX: R06.00 Dyspnea, unspecified (principal) | CPT/HCPCS: 93010 ==

== ENCOUNTER → 2025-07-07 09:36 | Outpatient (BNV) | payer MEDICARE, MEDICAID, SELFPAY | PROVIDERS: Admitting Provider Family Medicine; Emergency Provider Emergency Medicine; PCP Internal Medicine; Visit Provider Internal Medicine | DX: J44.1 Chronic obstructive pulmonary disease with (acute) exacerbation (principal); J96.01 Acute respiratory failure with hypoxia | CPT/HCPCS: 99223; 99499 ==

== ENCOUNTER 2025-09-07 15:18 | Inpatient (IN) | payer MEDICARE, MEDICAID, SELFPAY ==
[2025-09-07] VITALS (7 sets, daily range): BP systolic 110–137; BP diastolic 44–70; PULSE 80–110; RESP 20–30; TEMP 36.6–37.2; O2SAT 84–95; BMI 20.2
--- NOTE | ~2025-09-07 | XR_ITS ---
EXAMINATION: XR CHEST CLINICAL INFORMATION: sob COMPARISON: 07/06/2025 TECHNIQUE: Frontal view of the chest was obtained. FINDINGS: Again noted are patchy densities in the lower lungs and coarse markings diffusely. There is stable blunting of the costophrenic angles. There is probable pleural plaques are calcified in the right lung base. XR/XR chest 1V IMPRESSION: No acute abnormality. Chronic changes, as described. Electronically signed by: Rolando Winter MD 09/07/2025 05:09 PM EDT
--- NOTE | ~2025-09-07 | CT_ITS ---
CLINICAL HISTORY: altered mental status CT head without contrast Comparison: CT/SR - CT HEAD/BRAIN WO IV CON - 04/28/25 16:17 EDT Findings: No intra-axial mass, midline shift, hydrocephalus, or acute hemorrhage. No significant atrophy-like change or white matter disease. The visualized paranasal sinuses and mastoid air cells are normal. The orbits are within normal limits. No skull fracture. IMPRESSION: 1. No acute intracranial findings. This document has been electronically signed by: Edie Le MD on 09/07/2025 20:58:21
--- NOTE | 2025-09-07 15:47 | ECG_ITS ---
Test Reason : dyspnea Blood Pressure : */* mmHG Vent. Rate : 82 BPM Atrial Rate : 82 BPM P-R Int : 142 ms QRS Dur : 92 ms QT Int : 372 ms P-R-T Axes : 68 -23 59 degrees QTcB Int : 434 ms Normal sinus rhythm Minimal voltage criteria for LVH, may be normal variant ( Camilo product ) Borderline ECG When compared with ECG of 07-Jul-2025 09:38, No significant change was found Referred By: Generic ED Physician Electronically Signed By: TILA VOGT
[2025-09-07 16:01] LABS: MANUAL DIFF FLAG NO
[2025-09-07 16:03] LABS: VBG HCO3 36 mmol/L (22-26); VBG O2 % Saturation 74.0 %
[2025-09-07 16:03] LABS: Venous Blood Gas Refer to POC result
[2025-09-07 16:10] LABS: Hematocrit 44.1 % (42.0-52.0); Hemoglobin 12.6 g/dl (14.0-18.0); Imm Gran Abs Auto 0.04 X10*3/uL (0.00-0.03); Imm Gran Pct Auto 0.4 % (0.0-0.4); Lymphocytes Absolute Auto 1.7 X10*3/uL (1.2-4.9); Mean Corpuscular HGB Conc 28.6 g/dl (31.0-36.0); Mean Corpuscular Hemoglobin 24.7 pg (27.0-33.0); Mean Corpuscular Volume 86.3 fL (80.0-98.0); NRBC Abs Auto 0.000 X10*3/uL (0.0-0.012); NRBC Pct Auto 0.0 /100WBC (0.0-0.2); Platelet Count 336 X10*3/uL (160-400); Red Blood Count 5.11 X10*6/uL (4.60-5.80); White Blood Count 9.6 X10*3/uL (4.8-10.8)
[2025-09-07 16:18] LABS: COVID-19 Test Negative (Negative); IDNOW Serial# 08D9AD1C; IDNOW Serial# 6674DD1D; Influenza B2 Negative (Negative)
[2025-09-07 16:26] LABS: Alanine Aminotransferase 15 U/L (0-40); Albumin Level 4.2 g/dL (3.5-5.0); Alkaline Phosphatase 103 U/L (39-117); Anion Gap 13 (12-20); Aspartate Amino Transferase 29 U/L (5-37); Blood Urea Nitrogen 10 mg/dL (9-16); Calcium 9.2 mg/dL (8.4-10.2); Carbon Dioxide 28 mmol/L (22-29); Chloride 103 mmol/L (96-108); Creatinine Clr Calc Pharmacy 107.3; Estimated Glomerular Filt Rate > 60; Potassium 4.6 mmol/L (3.3-5.1); Sodium 139 mmol/L (135-145); Total Protein 7.4 g/dL (6.5-8.0)
[2025-09-07 16:34] LABS: Troponin-I High Sensitivity 3.5 ng/L (<3.5-35.0)
[2025-09-07 18:59] LABS: Appearance Urine Clear; Glucose Urine UA Negative (Negative); PH 7.5 (5.0-9.0); Specific Gravity - Urine 1.010 (1.005-1.025)
[2025-09-07] MEDS: Nicotine 21 MG PATCH.TD24 TRANSDERMA (20:03)
--- NOTE | 2025-09-07 20:08 | PC.NURSE ---
Pt found standing at end of bed, pt stating he has to urinate. Pt assisted with urinal. Pt spO2 noted to be in mid 70s on room air. Pt placed back on oxymask @ 10L. spO2 improved to 95%, titrated back down to 4L and pt maintaining stable spO2. Pt is alert and oriented to self, place and was able to answer some questions about why he is in the hospital but is confused, making statements that don't make sense. Pt given yellow hospital socks and chair alarm on, attached to stretcher. Plan of care ongoing
--- OUTSIDE RECORDS SUMMARY | 2025-09-07 20:08 | XMS_ITS | Data Portability ---
Author Organization [facility] [email or web address] [facility], Main Office Address [address], [address] [place] [address] Care Team Providers Care Script Manager Name Role Phone AVA CHIQUI MCKEON Primary Care Provider [phone] [facility] ([facility]) OTHER Assessment No assessment recorded. Plan [...] Address Organization Details Recorded Time Schizophre aleida 88065405 Active 2023 Kristy Obrien NP [address] [facility], [address], [place], [address] , [facility] 4 09:17:56 Hyperlipid emia 20923723 Active 2023 Kristy Obrien NP [address] [facility] [address] [facility] [address], [address], [place], [address] , [facility] 4 09:18:17 Type 2 diabetes mellitus 19350347 Active 2023 Kristy Obrien NP [address] [facility] [address] [facility] [address], [address], [place], [address] , [facility] [employer] 4 09:18:27 Hypothyroi dism 30069074 Active 2023 Kristy Obrien NP [address] [facility], [address], [place], [address] , [facility] 4 09:18:38 Asthma 131404222 Active 2023 Kristy Obrien NP [address], [place], [address] , [facility] 4 09:18:46 Seasonal allergy 290418557 Active 2023 Kristy Obrien NP [address], [address], [place], [address] , [facility] 4 09:19:19 Hypertensi ve disorder 55767647 Active 2023 Kristy Obrien NP [address], [address], [place], [address] , [facility] 4 09:19:31 Urinary outflow obstructio n 143802716 Active 2023 Kristy Obrien NP [address], [address], [place], [address] , [facility] 4 09:21:04 Partial excision of small intestine Active 2023 Kristy Obrien NP [address], [address], [place], [address] , [facility] 4 09:22:07 Laparotomy 70198310 Active 2023 Kristy Obrien NP [address], [address], [place], [address] , [facility] 4 09:22:28 Abdominal pain 54699079 Active 2023 Kristy Obrien NP [address], [address], [place], [address] , [facility] 4 09:22:47 Traumatic brain injury 750302915 Active 2023 Kristy Obrien NP [address], [address], [place], [address] , [facility] 4 09:53:08 Diabetic foot ulcer 172303910 Active 2023 Kristy Obrien NP [address], [place], [address] , [facility] 4 10:09:34 Hypoxia 685489521 Active 2023 Kristy Obrien NP [address] [facility], [address], [place], [address] , [facility] [employer] 4 10:10:32 Acute hypoxemic respirator y failure 857343283 Active 2024 Not Available [facility] 5 07:51:00 Type 2 diabetes mellitus without complicati on 428424215 Active 2024 Not Available [facility] 5 07:53:55 Benign prostatic hyperplasi a 682043134 Active 2024 Not Available [facility] 5 07:55:51 Pneumoniti s caused by inhalation of regurgitat ed food 471723772 Active 2024 resolved in hospital Not Available [facility] 5 07:58:50 Acute exacerbati on of chronic obstructiv e pulmonary disease 594099211 Active 2024 Not Available [facility] 5 08:00:46 Muscle weakness 65148879 Active 2024 Not Available [facility] 14:36:03 Incoordina tion 592032848 Active 2024 Not Available [facility] 14:36:05 Difficulty walking 834196770 Active 2024 Not Available [facility] 14:37:59 Oropharyng eal dysphagia 27024205 Active 2024 Not Available [facility] 14:38:01 Problem Notes None recorded. Medical Equipment None Reported. Allergies Allergen ID Allergen Name Allergen Category Reaction Reaction Severity Criticality Documentation Date Start Date Code Code System Note Provider Name and Address Organization Details Recorded Time 58731 amoxicill in medicatio n rash Not available Not available 02/27/2024 723 RxNorm Kristy Obrien NP [address] [facility], [address], [place], [address], [facility] 4 08:52:08 17882 egg extract food,medi cation hives vomiting Not available Not available unabletoasse 02/27/2024 84341 15 RxNorm Kristy Obrien NP [address] [facility], [address], [place], [address], [facility] 4 08:52:36 74168 Product containin g penicilli n (product) medicatio n rash Not available Not available 02/27/2024 58907 8001 SNOMED Kristy Obrien NP [address] [facility], [address], [place], [address], [facility] 4 08:52:58 20302 Substance with sulfonami de structure and antibacte rial mechanism of action (substanc e) medicatio n rash Not available Not available 02/27/2024 49510 8003 SNOMED Kristy Obrien NP [address] [facility], [address], [place], [address], [facility] 4 08:53:21 72895 trimethop rim medicatio n Not available Not available Not available 02/27/20242024 07610 RxNorm Not Available [facility] 5 15:12:50 01507 Haldol medicatio n Not available Not available Not available 02/27/20242024 87985 9 RxNorm Not Available [facility] 5 15:13:25 22479 latex environme nt,medica tion Not available Not available unabletoasse 02/27/2024 66222 91 RxNorm unkno wn Kristy Obrien NP [address] [facility], [address], [place], [address], [facility] 4 08:54:18 28293 methylpre dnisolone medicatio n Not available Not available Not available 02/27/20242024 6902 RxNorm Not Available [facility] 5 15:14:25 27486 sultamici llin Not available Not available Not available Not available 02/27/20242024 63878 RxNorm Not Available [facility] 15:15:36 85819 haloperid ol medicatio n Not available Not [...] since a teenager Kristy Obrien, SILVER [address] [facility] [address], [facility] [address], [place], [address], [facility] 02/27/2024 10:11:57 Do You Have An Advance Directive? No Information not available 02/27/2024 What Is Your Level Of Caffeine Consumption? Occasional 1-2 Cups Per Day Information not available 02/27/2024 What Is Your Code Status? Full Code Invoked And No Hcp Here, Will Contact He Would Like To Be Full Code If Possible Information not available 02/27/2024 Where Do You Live? Other Longterm Information not available 02/27/2024 What Was The [...] Td(adult) unspecified formulation 02/03/2013 completed Maryelva [facility] 02/27/2024 16:17:35 influenza, unspecified formulation 10/28/2023 completed Mary [facility] 02/27/2024 16:17:49 SARS-COV-2 (COVID-19) vaccine, UNSPECIFIED 12/08/2020 completed Mary Ara[facility] 02/27/2024 16:18:07 SARS-COV-2 (COVID-19) vaccine, UNSPECIFIED 12/29/2020 completed Mary Ara[facility] 02/27/2024 16:18:15 SARS-COV-2 (COVID-19) vaccine, UNSPECIFIED 09/06/2021 completed Mary Ara[facility] 02/27/2024 16:18:22 SARS-COV-2 (COVID-19) vaccine, UNSPECIFIED 08/23/2023 completed Mary Ara[facility] 02/27/2024 16:18:31 SARS-COV-2 (COVID-19) vaccine, UNSPECIFIED 10/28/2023 completed Mary veliz [place] - [facility] 02/27/2024 16:18:38 Past Encounters Encounter ID Performer Location Encounter Start Date Encounter Closed Date Diagnosis/Indication Diagnosis SNOMED-CT Code Diagnosis ICD10 Code Diagnosis IMO Codes Diagnosis Note [id number] Kristy Obrien NP [address] [place] [address] 02/27/2024 08:26:13 03/04/2024 08:58:17 Asthenia 05631894 R53.1 weakness from recent pna and abd resectionP T OT eval and treatsuppo rtive care as devices as neededmoni tor Abdominal pain 42147310 R10.9 status post bowel resection on 02/16/24 [...] tidvitals daily Type 2 mechelle betes mellitus 84484952 E11.9 metformin 1000 mg po bid with mealslispr o ISSmonitor bs with meals and need for titration Diabetic foot ulcer 3710 82855 E13.621 see hpicleanse dm ulcer with ns, pack with ca alginate, apply dcd, dailyconsu lt wound team for debridemen t and carewill order xray to ro osteomyeli tis of great toensg to contact jail for appropriat e footwear, boots are rubbingwil l cont doxycyclin e 100 mg po bid x 2 weeks and reeval with probiotic on march 12 ibuprofen 600 mg po q 6 hours prntylenol 650 mg po q 4 hours prn nte 3 g/24 hoursgabap entin 600 mg po tidmonitor Schizophrenia 26181879 F 20.9 clozaril to restart outpt on 03/18/24 per instructio nslithium carbonate 450 mg er po bidfluphen azine 1 mg po qhslithium level on 02/25 wnl Hypertensive disorder 38 421963 I10 atenolol 25 mg po dialymonit or vitals Hypothyroidism 79814546 E03.9 levothyrox ine 150 mcg po dailymonit or tsh prn Hyperlipidemia 49610394 E78.5 atorvastat in 40 mg po qhsmonitor Asthma 903959598 J45.90 9 ? asthma/coppersmith helper dtrelegy ellipta 1 inhal daily02 prnalb inhaler 1 puff q 6 hours prn sobmonitor Seasonal allergy 9989960 04 J30.2 loratadine 10 mg po dailyflona se 1 spray each nare daily Urinary ou tflow obstruction 490500186 N13.9 on tamulosin 0.4 mg po qhsmonitor urinary output Traumatic brain injury 827083905 S06.9X0S unclear of hxcarrying dx ? related to warmonitor Pneumonia 317536123 J18. 9 hypoxia felt related to pna resolvedtr eated with o2, nebs, ceftriaxon e, and inhalersmo nitor for reoccuranc e Moderate c ognitive impairment 841650896 R41.9 mod cog impairment with TBIinvoke ptsupporti ve caremonito r for changes Smoker 72745350 F17.200 offered NRT but refusessta camila it will destabiliz e him being off clozaril and with recent [facility] [id number] Junaid Desir MD [address] [address] 02/28/2024 10:37:47 03/04/2024 09:40:12 Small bowel obstruction 735034802 K56.691 see HPIcomplet e course of doxycyclin eadd probioticm onitor cbcmonitor siteupdate surgery with concerns Hospital a cquired pneumonia 037905066 Y95 concern for pneumonia, vs copd in hospitaltr eated with rocephinmo nitor respirator y function and need for repeat imaging Asthenia 56882997 R53.1 PT OT eval and treatmonit or fall risk Type 2 mechelle betes mellitus 07804122 E11.9 metformin 1000 mg po bidins SSmonitor blood glucose and need to titrate Diabetic foot ulcer 3710 69944 E13.621 wound care to eval and followmoni tor for secondary infection Schizophrenia 09770616 F 20.1 increased sx in hospital eval by pschrestar t clozapine 25 mg qhspsych to eval [facility] t patient f/u in placeconti nued on lithium and fluphenazi nemonitor behaviors Hypertensive disorder 38 135214 I10 atenolol 25 mg po qdmonitor bp and need to titrate Hypothyroidism 99398422 E03.8 synthroid 150 mcg qdmonitor tsh prn Hyperlipidemia 70621336 E78.2 lipitor 40 mg qdcontinue d Seasonal allergy 1864877 04 J30.2 loratadine 10 mg po qdflonase 1 spray qdcontinue d Urinary ou tflow obstruction 852315876 N13.9 flomax 0.4 mg qdmonitor for sx relief Traumatic brain injury 491367356 S06.9X0S carrying dxadded to PMHHCP invoked Moderate c ognitive impairment 512305343 R41.9 carrying dxHCP invokedcon tinue supportive caremonito r for behaviors Smoker 50336408 F17.200 encourage quitting however with underlying schizophre aleida patient has no interestmo nitor patient attempting to elope do to this Benign pro static hyperplasia without outflow obstruction 611401754 N40.0 flomax 0.4 mg qdmonitor for sx relief [id number] GAIL PITTS, SUSTAINABILITY ENGINEER-C [address] [place] [address] 05/06/2025 10:24:36 05/12/2025 16:53:02 Sepsis 17155505 A41.9 R65.20 6075075805 dt aspiration PNAresolve d Acute hypo xemic respiratory failure 898179080 J96.01 dt aspiration PNAseverel y hypoxic in the EDrequired 15 L non rebreather , weaned to 3 L NCcont supp O2wean as tolerated, goal spo2 > 92%RT to follow Pneumoniti s caused by inhalation of regurgitated food 085639163 J69.0 with hypoxiaori ginally received IV rocpehen and flagyltran sitioned to po ceftin and po flagylcont antbxmonit or resp statusrema ins on supp O2 History of Disorder 3128 96280 Z87.898 65084922 causing PNAaspirat ion precaution sspecializ ed dietSLP to follow up Asthma 529596295 J45.90 9 overlap of asthma/coppersmith helper dtrelegy ellipta 1 inhal dailyalb inhaler q6h prnmonitor resp status Hyperlipidemia 30567951 E78.2 cont statinlipi ds outpt Hypertensive disorder 38 697730 I10 cont atenololmo nitor bp and labs Hypothyroidism 74525907 E03.8 cont synthroid 175 mcg dailythyro id panel outpt Traumatic brain injury 417179728 S06.9X0S lives in jail Schizophrenia 25406583 F 20.1 no med changes inpt, stable at baselinemo nitor behaviors and affectpara noid on examcont home meds: gabapentin , lithium, clozapine, fluphenazi nepsych eval prn Urinary ou tflow obstruction 997881917 N13.9 cont flomax and desmopress inmonitor UOP Type 2 mechelle betes mellitus 28406895 E11.9 cont glipizide 2.5 mg dailycont accuchecks tid with lispro sscont lantus 15 units qhscont metformin 1000 mg bidmonitor [id number] Markell Dangelo MD [facility] [address] [place] [address] 05/10/2025 09:39:48 05/25/2025 11:23:09 Schizophrenia 33930559 F20.1 comorbid TBIclozapi ne 175mg daily / fluphenazi ne 1md daily / lithium 450mg bid / gabapentin 600mg tid Type 2 mechelle betes mellitus 26498488 E11.9 metformin 1000 mg po bid / [...] 81.0 mg/dL [facility] (Manual) Hypertensive disorder 38 558751 I10 atenolol 25 mg po qd; labile; [...] 88 / 63 mmHg Sitting l/arm Hypothyroidism 08432565 E03.8 synthroid 175mcg daily Hyperlipidemia 38092560 E78.2 atorvastat in 40 mg qd Seasonal allergy 4121702 04 J30.2 nasal steroids daily / cetirizine 5mg daily. Increase nasal steroids to bid Benign pro static hyperplasia without outflow obstruction 034938746 N40.0 6622132 flomax 0.4 mg qd / desmopress in 0.1 mg qhs Smoker 96385904 F17.200 on nicotine replacemen tsmoked 1 ppd for a while and was able to cut back to 1/2 ppd; discussed use of lozenges (may increase to q1hour as needed use. Aspiration pneumonitis 506325521 J69.0 2756 CXR with multi-loba r pnuemonia, hypoxemic resp failure/ COPD-asthm a exacerbati on with continued ambulatory desaturati on, noted troponin bump (426) without CK elevations /p treatment with Rocephin/F lagylasthe aleida from acute serious conditionP T/OTcurren tly off resting 2 but may need post-exert ional sat Acute exac erbation of chronic obstructive pulmonary disease with asthma 2011633521 100 J44.1 990495 Trelegy / PRN albuterol MDI For resuscitation 532071 001 Z78.9 4887353 Normocytic anemia 631302 002 D64.9 40207 Hgb 11.4 (04/28) [id number] GAIL PITTS, SUSTAINABILITY ENGINEER-C [place] [address] [place] [address] 05/11/2025 08:46:40 05/12/2025 18:04:48 Acute hypoxemic respiratory failure 519050836 J96.01 dt aspiration PNAremains on O2 here, none at baselinewe an as tolerated, goal spo2 > 92%RT to follow Pneumoniti s caused by inhalation of regurgitated food 179362900 J69.0 completed course of antbxencou rage IS use, and oob for mealsmonit or resp statusrema ins on supp O2 Asthma 288600665 J45.90 9 overlap of asthma/coppersmith helper dtrelegy ellipta 1 inhal dailyalb inhaler q6h prnmonitor resp status Hypertensive disorder 38 154121 I10 BP controlled cont atenololmo nitor bp and labs Schizophrenia 96982822 F 20.1 no med changes inpt, stable at baselinemo nitor behaviors and affectmild ly paranoid on examcont home meds: gabapentin , lithium, clozapine, fluphenazi nepsych eval prn Urinary ou tflow obstruction 462753322 N13.9 good urine output, using urinalcont flomax and desmopress inmonitor UOP Type 2 mechelle betes mellitus 35387934 E11.9 very well controlled cont glipizide 2.5 mg dailycont accuchecks tid with lispro sscont lantus 15 units qhscont metformin 1000 mg bidmonitor [id number] [place] [address] 05/18/2025 07:20:15 05/19/2025 15:33:22 Acute hypoxemic respiratory failure 172524652 J96.01 resolvedno w on RA Pneumoniti s caused by inhalation of regurgitated food 432862148 J69.0 completed course of antbxresol drew Asthma 582406383 J45.90 9 h/o asthma/coppersmith helper dtrelegy ellipta 1 inhal dailyalb inhaler q6h prnmonitor resp status Hypertensive disorder 38 651273 I10 BP controlled cont atenololmo nitor bp and labs Schizophrenia 37966617 F 20.1 no med changes inpt, stable at baselinemo nitor behaviors and affectmild ly paranoid on examcont home meds: gabapentin , lithium, clozapine, fluphenazi nepsych eval prn Urinary ou tflow obstruction 197228368 N13.9 good urine output, using urinalcont flomax and desmopress inmonitor UOP Type 2 mechelle betes mellitus 07666455 E11.9 very well controlled , all < 150cont glipizide 2.5 mg dailycont accuchecks tid with lispro sscont lantus 15 units qhscont metformin 1000 mg bidconside r decreasing accuchecks and possibly dc of ss Asthenia 38198021 R53.1 45118 was decondtion edmaking good gainsambul ated 100 ft x 4 yesterdayc ont [facility] jail [id number] [place] [address] 05/21/2025 12:19:18 05/25/2025 10:14:05 Asthma 221877190 J45.909 h/o asthma/coppersmith helper dno acute [facility] RAtrelegy ellipta 1 inhal dailyalb inhaler q6h prnmonitor resp status Hypertensive disorder 38 073771 I10 BP controlled cont atenolol 25 mg dailymonit or bp and labs Schizophrenia 87318820 F 20.1 mildly paranoid on exam but stablecont home meds: gabapentin , lithium, clozapine, fluphenazi nemonitor mood and affectpsyc h eval prndc on sat back to jail Urinary ou tflow obstruction 569197581 N13.9 good urine output, using urinalcont flomax and desmopress inmonitor UOP Type 2 mechelle betes mellitus 83145532 E11.9 very well controlled , all < 150cont glipizide 2.5 mg dailycont lantus 15 units qhscont metformin 1000 mg bidok to dc lispro ss = jail cannot facilitate this and he is not requiring bolus insulin Asthenia 80036387 R53.1 83202 was deconditio nedmaking good gainsambul ated 100 ft x 4cont PT OTdc [place] jail [place] [id number] GAIL PITTS NP-C [facility] [address] [place] [address] 05/25/2025 11:28:50 05/27/2025 09:16:45 Asthma 644291814 J45.909 no acute exacmainta in sats on [facility] ellipta 1 inhal dailycont alb inhaler q6h prnmonitor resp status Hypertensive disorder 38 543635 I10 BP controlled cont atenolol 25 mg dailymonit or bp and labs Schizophrenia 32497994 F 20.1 mildly paranoid on exam but stablecont home meds: gabapentin , lithium, clozapine, fluphenazi nemonitor mood and affectpsyc h eval prn Urinary ou tflow obstruction 781046243 N13.9 good urine output, using urinalcont flomax and desmopress inmonitor UOP Type 2 mechelle betes mellitus 80476634 E11.9 very well controlled , all < 150cont glipizide 2.5 mg dailycont lantus 15 units qhscont metformin 1000 mg bidno longer monitor blood sugars Asthenia 84362903 R53.1 45756 was deconditio nedmaking good gainsambul ated 100 ft x 4cont PT OTgetting close to dc back to jail this week Dyspnea on exertion 6084 5006 R06.02 025892 noted to have increased WOB walking from bathroom to bedwhen asked he agreed he was sobhe has been weaned to RA since last weekall sats mid to high 90s on [facility] to monitor [id number] [place] [address] 05/28/2025 08:13:09 06/11/2025 19:58:58 Dyspnea on exertion 84453926 R06.02 042076 denies sobresolve d without interventi onmonitor Asthma 246248587 J45.90 9 no acute exacmainta in sats on [facility] trelegy ellipta 1 inhal dailycont alb inhaler q6h prnmonitor resp status Hypertensive disorder 38 907629 I10 BP controlled cont atenolol 25 mg dailymonit or bp and labs Type 2 mechelle betes mellitus 24292715 E11.9 very well controlled , all < 150cont glipizide 2.5 mg dailycont lantus 15 units qhscont metformin 1000 mg bidno longer monitoring blood sugars and lispro ss has been discontinu ed Asthenia 18185750 R53.1 77787 was deconditio nedmaking good gainsambul ating with therapycon t PT OTcare plan meeting 05/26sdrob va back to jail next week [id number] [place] [address] 06/01/2025 07:17:54 06/11/2025 20:24:52 Dyspnea on exertion 37082136 R06.02 063092 resolved Asthma 903397889 J45.90 9 no acute exacmainta in sats on [facility] ellipta 1 inhal dailycont alb inhaler q6h prnf/u with PCP Hypertensive disorder 38 553464 I10 BP controlled cont atenolol 25 mg dailymonit or bp outptf/u with PCP Type 2 mechelle betes mellitus 61483852 E11.9 very well controlled , all < 150 and ss insulin was discontinu edcont glipizide 2.5 mg dailycont lantus 15 units qhscont metformin 1000 mg bidA1C q6mos outptf/u with PCP Asthenia 36120276 R53.1 46369 completed PT [facility]back to [facility] Aspiration pneumonitis 214486185 J69.0 2756 treated inptresolv ed Smoker 77400949 F17.200 on nicotine replacemen tcont smoking cessation outptf/u with PCP Schizophrenia 53666650 F 20.1 mood stable, odd affectcont home med regimen: clozapine 175mg daily / fluphenazi ne 1md daily / lithium 450mg bid / gabapentin 600mg tidmonitor mood and affect outptf/u with PCP Hypothyroidism 52324405 E03.8 cont synthroid 175 mcg dailythyro id panel outptf/u with PCP Hyperlipidemia 73132999 E78.2 cont atorvastat in 40 mg qdlipids outptf/u with PCP Benign pro static hyperplasia without outflow obstruction 635825348 N40.0 7774168 urinary without issues while herecont flomax 0.4 mg qd / desmopress in 0.1 mg qhsmonitor UOP outptf/u with PCP Acute hypo xemic respiratory failure 090955911 J96.01 dt PNAresolve d Pneumoniti s caused by inhalation of regurgitated food 356095614 J69.0 with hypoxia and resp failurecom pleted IV antbxnow resolved History of Disorder 3128 12529 Z87.898 89270061 causing PNAcont aspiration precaution s in group homecont current dietf/up with PCP for concerns Traumatic brain injury 973900779 [facility] Health Concerns Section Related Observation LastModified by Organization Detai ls LastModified Time None Recorded Concern Status LastModified by Organization Details LastModified Time None Recorded Advance Directives Directive N: Payers Insurance Date Sequence Insurance Name Policy Number Policy Ochoa Covered Member ID Ochoa Member ID Guarantor Name 05/21/2025 1 [place] [employer] David Lantigua [id number] David Lantigua 06/11/2025 2 [place] [facility] David Lantigua [id number] David Lantigua Notes Date Note Type Note Provider Name and Address Organization Details Recorded Time 05/18/2025 text/html Patient is a 59 yo male being seen for acute rounding visit. Pt found down at jail unclear length of time. On arrival to [...] therapy, hes able to ambulate. [facility] schizophrenia, TBI, dm, hld, hypothyroid, asthma, copd JOHN [address] [address] [facility], [address], [place], [address], [facility] 05/18/2025 12:13:34 05/21/2025 text/html Patient is a 59 yo male being seen for acute rounding visit. Pt found down at jail unclear length of time. On arrival to [...] Participating with therapy. Tentative dc back to jail on sat. His blood sugars are controlled without use of ss lispro. [facility] schizophrenia, TBI, dm, hld, hypothyroid, asthma, copd JOHN SUTHERLAND [address] [facility], [address], [place], [address], [facility] 05/21/2025 12:23:28 05/25/2025 text/html Patient is a 59 yo male being seen for acute rounding visit. Pt found down at jail unclear length of time. On arrival to [...] are controlled without use of ss lispro. PM schizophrenia, TBI, dm, hld, hypothyroid, asthma, copd JOHN SUTHERLAND [address] [facility], [address], [place], [address], [facility] [employer] 05/25/2025 13:12:29 05/28/2025 text/html Patient is a 59 yo male being seen for acute rounding visit. Pt found down at jail unclear length of time. On arrival to [...] week held, plan to dc back to jail next week. Pt has no medical concerns today. He tells me hes just relaxing today, laying in bed. He is waiting for a movie to start and hes thirsty. [facility] schizophrenia, TBI, dm, hld, hypothyroid, asthma, copd JOHN SUTHERLAND [address] [facility], [address], [place], [address], [facility] [employer] 05/28/2025 12:42:07 06/01/2025 text/html Patient is a 59 yo male being seen for discharge. Pt found down at jail unclear length of time. On arrival to [...] is medically clear for dc back to jail with meds and services in place, per referral made to [facility]. PMH schizophrenia, TBI, dm, hld, hypothyroid, asthma, copd NICOL SUTHERLANDC [address] [facility] [address], [address], [place], [address], [facility] 06/01/2025 10:58:02
[2025-09-07] MEDS: Albuterol Sulfate 5 MG, Albuterol Sulfate (0.083%) 2.5 MG 7.5 MG INHALE (20:14)
--- NOTE | 2025-09-07 20:27 | ED_ITS ---
HPI - General Adult General Chief complaint: Dyspnea Stated complaint: increased weakness, SOB, Duo Neb Time Seen by Provider: 09/07/25 18:41 Source: patient, RN notes reviewed and old records reviewed Mode of arrival: EMS Limitations: altered mental status History of Present Illness ED Provider: Olesya HPI narrative: 60-year-old male past medical history significant for schizophrenia, TBI, diabetes, COPD who actively smokes presents for evaluation of shortness of breath. The patient presents from a local facility for apparent increased in shortness of breath since last night. [facility] facilities felt that he may have also been more confused than usual. The patient does have a history of both TBI and schizophrenia, so in his unclear what his baseline is currently. He reports that he does not use oxygen at baseline He smoked about a pack per day The patient complains of neck pain but denies chest pain. The patient is a poor historian does not answer directly when asked if he has had increased cough Related Data Home Medications ?Medication ?Instructions ?Recorded ?Confirmed insulin lispro 100 unit/mL See Protocol subcut TIDAC 0 03/02/24 07/07/25 subcutaneous solution (Humalog U-100 Insulin) atenolol 25 mg tablet 25 mg PO DAILY 04/28/2506/12 cetirizine 5 mg tablet 5 mg PO DAILY 04/28/2507/07 levothyroxine 175 mcg tablet 175 mcg PO DAILY 04/28/25 07/07/25 clozapine 100 mg tablet 100 mg PO BID 04/29/2507/07 clozapine 25 mg tablet 75 mg PO DAILY 04/29/2506/12 docusate sodium 100 mg capsule 100 mg PO DAILY 5 07/07/25 fluphenazine decanoate 25 mg/mL 25 mg subcut Q2W 07/0707/07/25 injection solution insulin glargine-yfgn 100 unit/mL 15 unit subcut BEDTI ME 07/07/25 07/07/25 (3 mL) subcutaneous pen Previous Rx's ?Medication ?Instructions ?Recorded albuterol sulfate 90 mcg/actuation 2 puff inhalation R Q4H PRN 03/19/24 aerosol inhaler (Ventolin HFA) Shortness Of Breath 30 days #1 inhaler atorvastatin 40 mg tablet 40 mg PO BEDTIME 30 days #30 tabs 03/19/24 fluticasone fur. 100 mcg-umeclid 1 inh inhalation RDAI LY 30 days 03/19/24 62.5 mcg-vilant 25 mcg #60 ea inhalat.powder (Trelegy Ellipta) fluticasone propionate 50 1 spray intranasal DAILY 30 days 03/19/24 mcg/actuation nasal #1 inhaler spray,suspension (Flonase Allergy Relief) gabapentin 600 mg tablet 1 tab PO TID 30 days #90 tab s 03/19/24 glipizide 2.5 mg tablet, extended 2.5 mg PO DAILY 30 d ays #30 tabs 03/19/24 release 24 hr lidocaine 4 % topical patch 1 patch transdermal DAILY 30 days 03/19/24 (Lidocaine Pain Relief) #30 ea lithium carbonate 450 mg 450 mg PO BID 30 days #60 ta bs 03/19/24 tablet,extended release metformin 1,000 mg tablet 1 tab PO BIDWM 30 days #60 t abs 03/19/24 nicotine (polacrilex) 2 mg buccal 2 mg buccal Q2H PRN Nicotine 03/19/24 lozenge Cravings 30 days #108 ea tamsulosin 0.4 mg capsule 0.4 mg PO BEDTIME 30 days #3 0 caps 03/19/24 prednisone 20 mg tablet 40 mg (2 x 20 mg) PO DAILY 5 days 07/07/25 #10 tabs azithromycin 500 mg tablet 500 mg PO DAILY 5 days #5 t abs 07/09/25 Allergies Allergy/AdvReac Type Severity Reaction Status Date / Time amoxicillin (AMOXICILLIN) Allergy Intermediate SKIN RASH Verified 09/07/25 15:46 egg (EGGS) Allergy Intermediate HIVES, Verified 09/07/25 15:46 VOMITING Penicillins (PENICILLINS) Allergy Intermediate SKIN RASH Verified 09/07/25 15:46 Sulfa (Sulfonamide Allergy Intermediate SKIN RASH Verified 09/07/25 15:46 Antibiotics) (SULFA (SULFONAMIDE ANTIBIOTICS)) trimethoprim (TRIMETHOPRIM) Allergy Intermediate SKIN RASH Verified 09/07/25 15:46 penicillin V Allergy Unknown Unknown Verified 09/07/25 15:46 haloperidol (From Haldol) Allergy Unknown Verified 09/07/25 15:46 methylprednisolone (From Allergy Unknown Verified 09/07/25 15:46 Solu-Medrol) penicillin Allergy Unknown Unknown Uncoded 07/06/25 22:04 sultamicillin Allergy Unknown Unknown Uncoded 07/06/25 22:04 trimethoprim Allergy Unknown Unknown Uncoded 07/06/25 22:04 Review of Systems 2 Constitutional: Constitutional: Denies body ache(s), Denies chills and Denies fever(s) Eyes: Eyes: Denies blurry vision Cardiovascular: Cardiovascular: Denies chest pain and Reports dyspnea Respiratory: Respiratory: Reports dyspnea Gastrointestinal: Gastrointestinal: Denies diarrhea, Denies nausea and Denies vomiting Integumentary/Breasts: Skin/Breast: Denies rash PMFSH Past Medical History Medical History Fall Encounter for staple removal Routine medical exam Hypothyroidism Diabetes mellitus type 2 in nonobese Hyperlipidemia Personal history of nicotine dependence Rash Loculated pleural effusion (~10/2020) Asbestos-induced pleural plaque Traumatic brain injury Schizophrenia HTN (hypertension) COPD (chronic obstructive pulmonary disease) Asthma Surgical History Status post small bowel resection Social History Social History Household Members: Other Household Members Other:: custodial Housing: Other Housing Other:: custodial Do you presently have visiting nurse or other home services: Yes Alcohol intake: never Comment: 1:1 sitter Patient Tobacco Use Status: Current everyday Tobacco user Tobacco use type: Cigarette, Cigar and Pipe Cigarette Packs Per Day: 1 Cigarettes Per Day: 20.0 Years Smoked: 40 e-Cigarette/Vaping Use: Currently Using Second Hand Smoke Exposure: No Substance Use Type: Marijuana Advance Directives: No Advance Directives Information Provided: No service: No Current occupational status: disabled Sexual orientation: Unable to collect Physical Exam ED Vital Signs: Vital Signs - 24 hr 09/07/25 15:45 09/07/25 16:00 09/07/25 17:34 Temperature 99.0 F 98 F Pulse Rate 83 80 Respiratory Rate 22 H 20 Blood Pressure 133/61 110/44 L Pulse Oximetry 84 L 94 95 Oxygen Delivery Method Room Air Nasal Cannula Nasal Cannula Oxygen Flow Rate 3 3 09/07/25 19:35 09/07/25 20:10 09/07/25 21:33 Temperature 98.2 F Pulse Rate 81 110 H 80 Respiratory Rate 22 H 30 H 20 Blood Pressure 130/63 119/48 L Pulse Oximetry 95 93 Oxygen Delivery Method Oxymask Oxymask Oxygen Flow Rate 4 4 BMI result Body Mass Index 20.2 Const General: comfortable, no acute distress, alert and awake Nutritional Appearance: well nourished [facility] Head: Yes normocephalic and Yes atraumatic Throat: Yes posterior oropharynx normal Eyes Eyelids: Yes eyelids normal Conjunctivae: conjunctivae normal Sclerae: sclerae normal Corneas: corneas normal Pupils: Equal, round and reactive pupils present EOM: EOMs intact bilaterally Neck Neck: Yes full ROM Resp Other: Bilateral rhonchi Effort & Inspection: normal respiratory effort, able to speak in complete sentences and not labored Auscultation: rhonchi Cardio Rate: regular rate Rhythm: regular rhythm GI Inspection: No distended Palpation (GI): Soft to palpation, not firm, nontender, no guarding and not rigid Skin General skin exam: elasticity normal Neuro Cranial nerves: Yes Equal, round and reactive pupils present and Yes Bilaterally intact EOM present Extrem Other: Moving all extremities well without any obvious deformities Course Reevaluation(s) Reevaluation #1: repeat VBG is essentially. unchanged. He is still requiring supplmental oxygen and therefore we will discuss with the hospitalist for admisison. Time: 22:12 Medications Administered Discontinued Medications Generic Name Dose Route Start Last Admin Trade Name Trent PRN Reason Stop Dose Admin Albuterol Sulfate 5 mg/ 7.5 mg 09/07/25 20:09 09/07/25 20:14 Albuterol Sulfate 2.5 mg INHALE 09/07/25 20:10 7.5 mg ONCE ONE Administration Magnesium Sulfate/Dextrose 1 gm in 100 mls @ 300 mls/hr 09/07/25 19:46 09/07/25 20:26 Magnesium Sulfate/D5w IV 09/07/25 20:05 Infused ONCE ONE Infusion Nicotine 21 mg 09/07/25 19:20 09/07/25 20:03 Nicotine 21 Mg Patch.Td24 TRANSDERMA 09/07/25 19:21 21 mg ONCE ONE Administration Prednisone 60 mg 09/07/25 19:47 09/07/25 20:02 Prednisone 20 Mg Tablet PO 09/07/25 19:48 60 mg ONCE ONE Administration Medical Decision Making Medical Decision Making MDM Narrative: 60-year-old male past medical history as above presents for evaluation of shortness of breath. There was a question of altered mental status. The patient is answering questions appropriately. He did not answer directly if he is coughing out but rather get agitated and seems to think we did not need to know if he was coughing more. The patient was noted to be hypoxic to 84% on room air. He was placed on an OxyMask at 4 L in his oxygen saturation has been 93 95%. I am not quite sure what his baseline oxygen saturation in his on room air. An initial VBG showed a pH of 7.39 with a pCO2 of 60, PO2 of 45 and a bicarb of 36. The patient was able to stay awake throughout the interview but did close his eyes intermittently. He feels as though he is in the hospital due to ?low blood sugar. His initial glucose was 78 with a repeat of 84. The patient does have diffuse rhonchi. I ordered steroids, oral prednisone he has an allergy listed 10 that the prednisolone. I ordered magnesium 1 g IV and an any bronchodilator protocol. The patient's pro BNP is elevated to 2500, but he does not have any significant peripheral edema, his chest x-ray does not show pulmonary vascular congestion or pleural effusions. I suspect his increased dyspnea is likely due to a COPD exacerbation. Viral swabs are negative. Differential Diagnosis Differential Diagnoses: The differential diagnosis associated with the presentation includes Acute hypoxic respiratory failure COPD exacerbation Hypercarbia Hyperglycemia Schizophrenia Admission/Observation Consideration of admission/observation: Escalation of care including admission/observation considered Patient will require admission for oxygen supplementation Consult Healthcare Provider Management of the patient was discussed with: Hospitalist Lab Data MDM Lab Attestation statement: I reviewed the patient's lab results. No leukocytosis or significant anemia. Normal platelet count. No electrolyte abnormalities warranting dimension. ProBNP is elevated to 2537.7 09/07/25 15:51 09/07/25 15:51 Labs: Lab Results 09/07/25 09/07/25 09/07/25 Range/Units 15:51 15:52 16:00 WBC 9.6 (4.8-10.8) X10*3/uL RBC 5.11 (4.60-5.80) X10*6/uL Hgb 12.6 L (14.0-18.0) g/dl Hct 44.1 (42.0-52.0) % MCV 86.3 (80.0-98.0) fL MCH 24.7 L (27.0-33.0) pg MCHC 28.6 L (31.0-36.0) g/dl RDW 16.5 H (11.0-16.0) % Plt Count 336 (160-400) X10*3/uL MPV 9.2 L (9.4-12.4) fL Immature Gran % (Auto) 0.4 (0.0-0.4) % Neut % (Auto) 74.2 H (45-73) % Lymph % (Auto) 18.2 L (20-40) % [place] % (Auto) 6.6 (2-11) % Eos % (Auto) 0.2 (0-4) % Baso % (Auto) 0.4 (0-2) % Lymph # (Auto) 1.7 (1.2-4.9) X10*3/uL [place] # (Auto) 0.6 (0.1-1.2) X10*3/uL Eos # (Auto) 0.0 (0.0-0.4) X10*3/uL Baso # (Auto) 0.0 (0.0-0.2) X10*3/uL Abs Immat Gran (auto) 0.04 H (0.00-0.03) X10*3/uL Absolute Neuts (auto) 7.1 (2.0-8.3) x10*3/uL Absolute Nucleated RBC 0.000 (0.0-0.012) X10*3/uL Nucleated RBC % (auto) 0.0 (0.0-0.2) /100WBC Hold Blue Top SEE NOTE VBG pH 7.39 (7.32-7.43) VBG pCO2 60 mmHg VBG pO2 45 mmHg VBG HCO3 36 H (22-26) mmol/L VBG O2 Saturation 74.0 % VBG Base Excess 9.5 mmol/L Sodium 139 (135-145) mmol/L Potassium 4.6 (3.3-5.1) mmol/L Chloride 103 (96-108) mmol/L Carbon Dioxide 28 (22-29) mmol/L Anion Gap 13 (12-20) BUN 10 (9-16) mg/dL Creatinine 0.70 (0.5-1.4) mg/dL Estim Creat Clear Calc 107.3 Estimated GFR > 60 POC Glucose (60-115) mg/dL Random Glucose 78 (60-115) mg/dL Lactic Acid (0.5-2.0) mmol/L Calcium 9.2 (8.4-10.2) mg/dL Total Bilirubin 0.6 (0.0-1.0) mg/dL AST 29 (5-37) U/L ALT 15 (0-40) U/L Alkaline Phosphatase 103 (39-117) U/L Troponin I High Sens 3.5 D (<3.5-35.0) ng/L NT-Pro-B Natriuret Pep 2537.7 H (<300) pg/mL Total Protein 7.4 (6.5-8.0) g/dL Albumin 4.2 (3.5-5.0) g/dL Urine Color Urine Appearance Urine pH (5.0-9.0) Ur Specific [place] (1.005-1.025) Urine Protein (Neg-Trace) mg/dL Urine Glucose (UA) (Negative) mg/dL Urine Ketones (Negative) mg/dL Urine Blood (Negative) Urine Nitrite (Negative) Ur Leukocyte Esterase (Negative) COVID-19 (LOLITA) Negative (Negative) COVID-19 Clin Com See Note Influenza Type A (LUNA) Negative (Negative) Influenza Type B (LUNA) Negative (Negative) Influenza A & B Note See Note 09/07/25 09/07/25 09/07/25 Range/Units 18:42 19:25 20:34 WBC (4.8-10.8) X10*3/uL RBC (4.60-5.80) X10*6/uL Hgb (14.0-18.0) g/dl Hct (42.0-52.0) % MCV (80.0-98.0) fL MCH (27.0-33.0) pg MCHC (31.0-36.0) g/dl RDW (11.0-16.0) % Plt Count (160-400) X10*3/uL MPV (9.4-12.4) fL Immature Gran % (Auto) (0.0-0.4) % Neut % (Auto) (45-73) % Lymph % (Auto) (20-40) % [place] % (Auto) (2-11) % Eos % (Auto) (0-4) % Baso % (Auto) (0-2) % Lymph # (Auto) (1.2-4.9) X10*3/uL [place] # (Auto) (0.1-1.2) X10*3/uL Eos # (Auto) (0.0-0.4) X10*3/uL Baso # (Auto) (0.0-0.2) X10*3/uL Abs Immat Gran (auto) (0.00-0.03) X10*3/uL Absolute Neuts (auto) (2.0-8.3) x10*3/uL Absolute Nucleated RBC (0.0-0.012) X10*3/uL Nucleated RBC % (auto) (0.0-0.2) /100WBC Hold Blue Top VBG pH (7.32-7.43) VBG pCO2 mmHg VBG pO2 mmHg VBG HCO3 (22-26) mmol/L VBG O2 Saturation % VBG Base Excess mmol/L Sodium (135-145) mmol/L Potassium (3.3-5.1) mmol/L Chloride (96-108) mmol/L Carbon Dioxide (22-29) mmol/L Anion Gap (12-20) BUN (9-16) mg/dL Creatinine (0.5-1.4) mg/dL Estim Creat Clear Calc Estimated GFR POC Glucose 84 (60-115) mg/dL Random Glucose (60-115) mg/dL Lactic Acid 0.9 (0.5-2.0) mmol/L Calcium (8.4-10.2) mg/dL Total Bilirubin (0.0-1.0) mg/dL AST (5-37) U/L ALT (0-40) U/L Alkaline Phosphatase (39-117) U/L Troponin I High Sens (<3.5-35.0) ng/L NT-Pro-B Natriuret Pep (<300) pg/mL Total Protein (6.5-8.0) g/dL Albumin (3.5-5.0) g/dL Urine Color Yellow Urine Appearance Clear Urine pH 7.5 (5.0-9.0) Ur Specific [place] 1.010 (1.005-1.025) Urine Protein Negative (Neg-Trace) mg/dL Urine Glucose (UA) Negative (Negative) mg/dL Urine Ketones Negative (Negative) mg/dL Urine Blood Negative (Negative) Urine Nitrite Negative (Negative) Ur Leukocyte Esterase Negative (Negative) COVID-19 (LOLITA) (Negative) COVID-19 Clin Com Influenza Type A (LUNA) (Negative) Influenza Type B (LUNA) (Negative) Influenza A & B Note 09/07/25 Range/Units 20:44 WBC (4.8-10.8) X10*3/uL RBC (4.60-5.80) X10*6/uL Hgb (14.0-18.0) g/dl Hct (42.0-52.0) % MCV (80.0-98.0) fL MCH (27.0-33.0) pg MCHC (31.0-36.0) g/dl RDW (11.0-16.0) % Plt Count (160-400) X10*3/uL MPV (9.4-12.4) fL Immature Gran % (Auto) (0.0-0.4) % Neut % (Auto) (45-73) % Lymph % (Auto) (20-40) % [place] % (Auto) (2-11) % Eos % (Auto) (0-4) % Baso % (Auto) (0-2) % Lymph # (Auto) (1.2-4.9) X10*3/uL [place] # (Auto) (0.1-1.2) X10*3/uL Eos # (Auto) (0.0-0.4) X10*3/uL Baso # (Auto) (0.0-0.2) X10*3/uL Abs Immat Gran (auto) (0.00-0.03) X10*3/uL Absolute Neuts (auto) (2.0-8.3) x10*3/uL Absolute Nucleated RBC (0.0-0.012) X10*3/uL Nucleated RBC % (auto) (0.0-0.2) /100WBC Hold Blue Top VBG pH 7.42 (7.32-7.43) VBG pCO2 61 mmHg VBG pO2 68 mmHg VBG HCO3 39 H (22-26) mmol/L VBG O2 Saturation 96.0 % VBG Base Excess 12.5 mmol/L Sodium (135-145) mmol/L Potassium (3.3-5.1) mmol/L Chloride (96-108) mmol/L Carbon Dioxide (22-29) mmol/L Anion Gap (12-20) BUN (9-16) mg/dL Creatinine (0.5-1.4) mg/dL Estim Creat Clear Calc Estimated GFR POC Glucose (60-115) mg/dL Random Glucose (60-115) mg/dL Lactic Acid (0.5-2.0) mmol/L Calcium (8.4-10.2) mg/dL Total Bilirubin (0.0-1.0) mg/dL AST (5-37) U/L ALT (0-40) U/L Alkaline Phosphatase (39-117) U/L Troponin I High Sens (<3.5-35.0) ng/L NT-Pro-B Natriuret Pep (<300) pg/mL Total Protein (6.5-8.0) g/dL Albumin (3.5-5.0) g/dL Urine Color Urine Appearance Urine pH (5.0-9.0) Ur Specific [place] (1.005-1.025) Urine Protein (Neg-Trace) mg/dL Urine Glucose (UA) (Negative) mg/dL Urine Ketones (Negative) mg/dL Urine Blood (Negative) Urine Nitrite (Negative) Ur Leukocyte Esterase (Negative) COVID-19 (LOLITA) (Negative) COVID-19 Clin Com Influenza Type A (LUNA) (Negative) Influenza Type B (LUNA) (Negative) Influenza A & B Note Independent Interpretation I performed an independent interpretation of an: EKG (Normal sinus rhythm with a rate of [address] Scan Radiology Impression Discussion of test interpretation with radiology: I have reviewed the radiologist's reading. Radiologist Impression: FINDINGS: Again noted are patchy densities in the lower lungs and coarse markings diffusely. There is stable blunting of the costophrenic angles. There is probable pleural plaques are calcified in the right lung base. XR/XR chest 1V IMPRESSION: No acute abnormality. Chronic changes, as described. Electronically signed by: Rolando Winter MD 09/07/2025 05:09 PM EDT RP Findings: No intra-axial mass, midline shift, hydrocephalus, or acute hemorrhage. No significant atrophy-like change or white matter disease. The visualized paranasal sinuses and mastoid air cells are normal. The orbits are within normal limits. No skull fracture. IMPRESSION: 1. No acute intracranial findings. This document has been electronically signed by: Edie Le MD on 09/07/2025 20:58:21 Discharge Plan Discharge Clinical Impression: Acute respiratory failure with hypoxia Patient Disposition: Admitted As Inpatient Print Language: Greenlandic
[2025-09-07 21:07] LABS: Glucose, Whole Blood 84 mg/dL (60-115)
[2025-09-07 21:57] LABS: Venous Blood Gas Refer to POC result
[2025-09-07 22:08] LABS: VBG HCO3 39 mmol/L (22-26); VBG O2 % Saturation 96.0 %
--- NOTE | 2025-09-07 22:38 | P.HPHOSP_ITS ---
History of Present Illness Date of Service: 09/07/25 Attending physician on admission: Neena Hernandez Chief Complaint: Shortness of breath David Lantigua is a 60 years old man with past medical history significant for COPD no home O2 and schizophrenia presents to the emergency department complaining of worsening shortness on breath over the last few days associated with wheezing and productive cough. He denied chest pain, dizziness, headache, fever or chills. He did not complain of any acute gastrointestinal or genitourinary symptoms. He has an ongoing heavy tobacco smoker. Denied alcohol abuse or illicit drug use. In the ED, he was found to have stable vital signs except for some degree of tachypnea and tachycardia. He was initially found to have O2 sat 84% and now requiring 4 L/min via OxyMask. Blood workup showed no leukocytosis or lactic acidosis. Hemoglobin is 12.6 and platelets 336. Venous blood gas showed no acute respiratory acidosis x2. There are no electrolyte imbalances. Renal function is normal. Glucose 84. Pro BNP is 2537. Albumin is normal. COVID-19 and influenza are negative. Head CT scan showed no acute intracranial findings. CXR showed no acute abnormalities. ECG showed NSR without ischemic changes. ED tx: Nicotine patch 21 mg, magnesium 1 g IV, prednisone 60 mg p.o., albuterol 7.5 mg Review of Systems 2 Review of Systems: All 12 systems were reviewed and normal except as noted in HPI. [facility] Medical History Fall Encounter for staple removal Routine medical exam Hypothyroidism Diabetes mellitus type 2 in nonobese Hyperlipidemia Personal history of nicotine dependence Rash Loculated pleural effusion (~10/2020) Asbestos-induced pleural plaque Traumatic brain injury Schizophrenia HTN (hypertension) COPD (chronic obstructive pulmonary disease) Asthma Surgical History Status post small bowel resection Social History Household Members: Other Household Members Other:: alf Housing: Other Housing Other:: alf Do you presently have visiting nurse or other home services: Yes Alcohol intake: never Comment: 1:1 sitter Patient Tobacco Use Status: Current everyday Tobacco user Tobacco use type: Cigarette, Cigar and Pipe Cigarette Packs Per Day: 1 Cigarettes Per Day: 20.0 Years Smoked: 40 e-Cigarette/Vaping Use: Currently Using Second Hand Smoke Exposure: No Substance Use Type: Marijuana Advance Directives: No Advance Directives Information Provided: No service: No Current occupational status: disabled Sexual orientation: Unable to collect Meds Allergies Allergy/AdvReac Type Severity Reaction Status Date / Time amoxicillin (AMOXICILLIN) Allergy Intermediate SKIN RASH Verified 09/07/25 15:46 egg (EGGS) Allergy Intermediate HIVES, Verified 09/07/25 15:46 VOMITING Penicillins (PENICILLINS) Allergy Intermediate SKIN RASH Verified 09/07/25 15:46 Sulfa (Sulfonamide Allergy Intermediate SKIN RASH Verified 09/07/25 15:46 Antibiotics) (SULFA (SULFONAMIDE ANTIBIOTICS)) trimethoprim (TRIMETHOPRIM) Allergy Intermediate SKIN RASH Verified 09/07/25 15:46 penicillin V Allergy Unknown Unknown Verified 09/07/25 15:46 haloperidol (From Haldol) Allergy Unknown Verified 09/07/25 15:46 methylprednisolone (From Allergy Unknown Verified 09/07/25 15:46 Solu-Medrol) penicillin Allergy Unknown Unknown Uncoded 07/06/25 22:04 sultamicillin Allergy Unknown Unknown Uncoded 07/06/25 22:04 trimethoprim Allergy Unknown Unknown Uncoded 07/06/25 22:04 Active Medications: Current Medications Acetaminophen (Acetaminophen 325 Mg Tablet) 975 mg PO Q6H PRN PRN Reason: Pain, Mild 1-3,fever,headache Albuterol Sulfate (Albuterol Sulfate (0.083%) 2.5 Mg/3 Ml Vial.Neb) 2.5 mg INHALE Q2H PRN PRN Reason: Shortness of Breath/Wheezing Albuterol/Ipratropium (Albuterol/Iprat 2.5/0.5mg 3 Ml Ampul.Neb) 3 ml INHALE RQ4H WHILE AWAKE CAROLINE Calcium Carbonate (Calcium Carbonate 750 Mg Tab.Chew) 750 mg PO Q4H PRN PRN Reason: Heartburn Enoxaparin Sodium (Enoxaparin Sodium 40 Mg/0.4 Ml Syringe) 40 mg SUBCUT Q24H CAROLINE Doxycycline Hyclate 100 mg/ (Sodium Chloride) 250 mls @ 166.67 mls/hr IV Q12H CAROLINE Magnesium Hydroxide (Milk Of Magnesia 30 Ml Oral.Susp) 30 ml PO DAILY PRN PRN Reason: Constipation Melatonin (Melatonin 3 Mg Tablet) 6 mg PO BEDTIME PRN PRN Reason: Insomnia Prednisone (Prednisone 20 Mg Tablet) 40 mg PO DAILY [facility] Stop: 09/12/25 09:01 Sodium Chloride (0.9 % Sodium Chloride Flush 3 Ml Syringe) 3 ml IVFLUSH QSHIFT [facility] Home Medications ?Medication ?Instructions ?Recorded ?Confirmed ?Last Taken ?Type insulin lispro 100 unit/mL See Protocol subcut TIDAC 0 03/02/24 07/07/25 03/02/24 17:07 History subcutaneous solution (Humalog U-100 Insulin) atenolol 25 mg tablet 25 mg PO DAILY 04/28/2508/12 Unknown History cetirizine 5 mg tablet 5 mg PO DAILY 04/28/2509/07 Unknown History levothyroxine 175 mcg tablet 175 mcg PO DAILY 04/28/25 09/07/25 Unknown History clozapine 100 mg tablet 200 mg PO QAM 04/29/2509/07 Unknown History clozapine 25 mg tablet 100 mg PO BEDTIME 04/29/25 1 Unknown History docusate sodium 100 mg capsule 100 mg PO DAILY 5 07/07/25 Unknown History fluphenazine decanoate 25 mg/mL 25 mg subcut Q2W 07/0707/07/25 Unknown History injection solution insulin glargine-yfgn 100 unit/mL 15 unit subcut BEDTI ME 07/07/25 09/07/25 Unknown History (3 mL) subcutaneous pen Klonopin 0.5 mg PO Q3-6H PRN Anxiety 09/07/25 09/07/25 Unknown History Wellbutrin 75 mg PO DAILY 09/07/2508/12 Unknown History Physical Exam 2 Vital Signs and Narrative: Vital Signs: Last Vital Signs Temp 98.2 F 09/07/25 21:33 Pulse 80 09/07/25 21:33 Resp 20 09/07/25 21:33 BP 119/48 L 09/07/25 21:33 Pulse Ox 93 09/07/25 21:33 O2 Del Method Oxymask 09/07/25 21:33 O2 Flow Rate 4 09/07/25 21:33 BMI result Body Mass Index 20.2 General: Alert, oriented, in no acute distress. Well nourished and cooperative. Afebrile. OxyMask in place. HEENT: Head normocephalic, atraumatic. PER, EOMI. Sclerae anicteric, conjunctiva clear. Oropharynx without erythema or exudate. Mucous membranes moist. Neck: Supple. Heart: RRR, no murmurs, rubs or gallops. Lungs: Tachypnea. Bilateral end expiratory wheezes. No crackles. Abdomen: Soft, non tenderness, nondistended, normoactive bowel sounds. No hepatosplenomegaly, masses or masses. Extremities: No calf tenderness bilaterally, no swelling Musculoskeletal: Full range of motion. No joint swelling, deformity, or tenderness. Normal muscle tone and strength. Skin: Warm/Dry. No pallor. No jaundice. Neurologic: Alert & oriented x4. Moving all extremities spontaneously. Normal speech. Psychological: Normal mood and affect. Thought process coherent. Results Labs 09/07/25 15:51 09/07/25 15:51 Labs: Laboratory Results - last 24 hr 09/07/25 09/07/25 09/07/25 15:51 15:52 16:00 MCV 86.3 MCH 24.7 L MCHC 28.6 L RDW 16.5 H Plt Count 336 MPV 9.2 L Immature Gran % (Auto) 0.4 Neut % (Auto) 74.2 H Lymph % (Auto) 18.2 L [place] % (Auto) 6.6 Eos % (Auto) 0.2 Baso % (Auto) 0.4 Lymph # (Auto) 1.7 [place] # (Auto) 0.6 Eos # (Auto) 0.0 Baso # (Auto) 0.0 Abs Immat Gran (auto) 0.04 H Absolute Neuts (auto) 7.1 Absolute Nucleated RBC 0.000 Nucleated RBC % (auto) 0.0 Hold Blue Top SEE NOTE VBG pH 7.39 VBG pCO2 60 VBG pO2 45 VBG HCO3 36 H VBG O2 Saturation 74.0 VBG Base Excess 9.5 Anion Gap 13 Estim Creat Clear Calc 107.3 Estimated GFR > 60 POC Glucose Random Glucose 78 Lactic Acid Calcium 9.2 Total Bilirubin 0.6 AST 29 ALT 15 Alkaline Phosphatase 103 Troponin I High Sens 3.5 D NT-Pro-B Natriuret Pep 2537.7 H Total Protein 7.4 Albumin 4.2 Urine Color Urine Appearance Urine pH Ur Specific [place] Urine Protein Urine Glucose (UA) Urine Ketones Urine Blood Urine Nitrite Ur Leukocyte Esterase COVID-19 (LOLITA) Negative COVID-19 Clin Com See Note Influenza Type A (LUNA) Negative Influenza Type B (LUNA) Negative Influenza A & B Note See Note 09/07/25 09/07/25 09/07/25 18:42 19:25 20:34 MCV MCH MCHC RDW Plt Count MPV Immature Gran % (Auto) Neut % (Auto) Lymph % (Auto) [place] % (Auto) Eos % (Auto) Baso % (Auto) Lymph # (Auto) [place] # (Auto) Eos # (Auto) Baso # (Auto) Abs Immat Gran (auto) Absolute Neuts (auto) Absolute Nucleated RBC Nucleated RBC % (auto) Hold Blue Top VBG pH VBG pCO2 VBG pO2 VBG HCO3 VBG O2 Saturation VBG Base Excess Anion Gap Estim Creat Clear Calc Estimated GFR POC Glucose 84 Random Glucose Lactic Acid 0.9 Calcium Total Bilirubin AST ALT Alkaline Phosphatase Troponin I High Sens NT-Pro-B Natriuret Pep Total Protein Albumin Urine Color Yellow Urine Appearance Clear Urine pH 7.5 Ur Specific [place] 1.010 Urine Protein Negative Urine Glucose (UA) Negative Urine Ketones Negative Urine Blood Negative Urine Nitrite Negative Ur Leukocyte Esterase Negative COVID-19 (LOLITA) COVID-19 Clin Com Influenza Type A (LUNA) Influenza Type B (LUNA) Influenza A & B Note 09/07/25 20:44 MCV MCH MCHC RDW Plt Count MPV Immature Gran % (Auto) Neut % (Auto) Lymph % (Auto) [place] % (Auto) Eos % (Auto) Baso % (Auto) Lymph # (Auto) [place] # (Auto) Eos # (Auto) Baso # (Auto) Abs Immat Gran (auto) Absolute Neuts (auto) Absolute Nucleated RBC Nucleated RBC % (auto) Hold Blue Top VBG pH 7.42 VBG pCO2 61 VBG pO2 68 VBG HCO3 39 H VBG O2 Saturation 96.0 VBG Base Excess 12.5 Anion Gap Estim Creat Clear Calc Estimated GFR POC Glucose Random Glucose Lactic Acid Calcium Total Bilirubin AST ALT Alkaline Phosphatase Troponin I High Sens NT-Pro-B Natriuret Pep Total Protein Albumin Urine Color Urine Appearance Urine pH Ur Specific [place] Urine Protein Urine Glucose (UA) Urine Ketones Urine Blood Urine Nitrite Ur Leukocyte Esterase COVID-19 (LOLITA) COVID-19 Clin Com Influenza Type A (LUNA) Influenza Type B (LUNA) Influenza A & B Note Imaging Radiologist's Impressions: Impressions Chest X-Ray 09/07/25 16:36 IMPRESSION: No acute abnormality. Chronic changes, as described. Electronically signed by: Rolando Winter MD 09/07/2025 05:09 PM EDT RP Assessment and Plan (1) Schizophrenia: Qualifiers: Schizophrenia type: unspecified Qualified Code(s): F20.9 - Schizophrenia, unspecified Status: Acute (2) Acute hypoxic respiratory failure: Status: Acute (3) Acute exacerbation of chronic obstructive pulmonary disease: Status: Acute Plan David Lantigua is a 60 y/o man who presents with: Acute hypoxic respiratory failure secondary to acute exacerbation of COPD. Telemetry. Pulse oximetry. Supplemental O2 to keep O2 sats > 90%. Continue bronchodilator therapy and prednisone p.o. but start empiric IV antibiotic therapy with doxycycline. Continue Claritin. Patient was encouraged to quit smoking tobacco. Type 2 diabetes mellitus. BG checks before meals at bedtime. Insulin sliding scale. Diabetic diet. Check hemoglobin A1c. Essential hypertension. Continue home med. Schizophrenia/mood disorder. Continue clozapine, lithium and gabapentin. Tobacco dependence. Tobacco cessation education. Nicotine patch as needed. Hyperlipidemia. Continue statin. Hypothyroidism. Check TSH. Continue levothyroxine. Code status: Full DVT prophylaxis: Lovenox Patient will need hospitalization for at least 2 midnights for acute hypoxic respiratory failure due to COPD exacerbation treatment with supplemental oxygen, bronchodilator therapy, steroids and IV antibiotics. This documentation was generated using dictation software; minor spreading or interior design teacher errors may be present. Quality Stroke Does the patient have a stroke diagnosis?: No VTE Prior VTE?: No VTE Risk Level:: Medical - moderate - high VTE Device Contraindication: Treatment Not Indicated VTE Drug Contraindication: N/A - Med Ordered
--- NOTE | 2025-09-07 23:30 | PC.NURSE ---
Pt med rec completed using med list sent from [facility].
[2025-09-07 23:56] LABS: Thyroid Stimulating Hormone 1.31 uIU/mL (0.32-4.0)
[2025-09-08] VITALS (9 sets, daily range): BP systolic 100–126; BP diastolic 52–65; PULSE 72–96; RESP 12–26; TEMP 36.7–37.9; O2SAT 92–100; BMI 19.7
[2025-09-08] MEDS: Insulin Glargine,Hum.rec.anlog 100 UNIT/ML 10 ML VIAL 15 UNIT SUBCUT ×2 (00:31→21:05)
[2025-09-08] MEDS: 0.9 % Sodium Chloride Flush 3 ML SYRINGE IVFLUSH ×4 (00:33→21:06)
[2025-09-08 07:07] LABS: Hematocrit 40.8 % (42.0-52.0); Hemoglobin 11.5 g/dl (14.0-18.0); Imm Gran Abs Auto 0.03 X10*3/uL (0.00-0.03); Imm Gran Pct Auto 0.4 % (0.0-0.4); Lymphocytes Absolute Auto 0.5 X10*3/uL (1.2-4.9); MANUAL DIFF FLAG SCAN; Mean Corpuscular HGB Conc 28.2 g/dl (31.0-36.0); Mean Corpuscular Hemoglobin 24.3 pg (27.0-33.0); Mean Corpuscular Volume 86.1 fL (80.0-98.0); NRBC Abs Auto 0.000 X10*3/uL (0.0-0.012); NRBC Pct Auto 0.0 /100WBC (0.0-0.2); Platelet Count 343 X10*3/uL (160-400); Red Blood Count 4.74 X10*6/uL (4.60-5.80); SCAN SMEAR FLAG 1; White Blood Count 7.4 X10*3/uL (4.8-10.8)
[2025-09-08 07:16] LABS: Anion Gap 10 (12-20); Blood Urea Nitrogen 9 mg/dL (9-16); Calcium 8.6 mg/dL (8.4-10.2); Carbon Dioxide 32 mmol/L (22-29); Chloride 105 mmol/L (96-108); Creatinine Clr Calc Pharmacy 120.2; Estimated Glomerular Filt Rate > 60; Magnesium 2.2 mg/dL (1.6-2.6); Potassium 4.4 mmol/L (3.3-5.1); Sodium 143 mmol/L (135-145)
[2025-09-08 07:22] LABS: Lithium 0.81 mmol/L (0.60-1.20)
[2025-09-08 07:37] LABS: Glucose, Whole Blood 143 mg/dL (60-115)
--- NOTE | 2025-09-08 08:04 | PC.NURSE ---
PT alert and oriented to place and self. Coarse crackles bilaterally. Productive cough. Mild SOB while in bed. Oxymask at 5L, breathes throgh mouth. Sitting up at this time eating breakfast. Reports he does not know last BM, but gets consitpated. No other complaints.
--- NOTE | 2025-09-08 08:15 | P.PNIM_ITS ---
Subjective Subjective Date of Service: 09/08/25 Interval History: copd Review of Systems sob seems similar ( sob with minimal excersion). no cough Review of Systems: Yes all other systems are reviewed and are negative Physical Exam 2 Exam: Exam: Appearance: Alert.? Oriented X3.? cvs: rrr, [id number]. res: Air entry seem diminished, bilateral expiratory wheezing abd: no rebound or guarding ,nt, bs present. ext pulses present , no cyanosis. neuro: axo3 , nonfocal. Vital Signs: Vital Signs: Last Vital Signs Temp 98.7 F 09/08/25 07:52 Pulse 82 09/08/25 07:52 Resp 22 H 09/08/25 07:52 BP 121/59 L 09/08/25 07:52 Pulse Ox 97 09/08/25 07:52 O2 Del Method Oxymask 09/08/25 07:52 O2 Flow Rate 5 09/08/25 07:52 BMI result Body Mass Index 19.7 Objective Data Active Medications Acetaminophen (Acetaminophen 325 Mg Tablet) 975 mg PO Q6H PRN PRN Reason: Pain, Mild 1-3,fever,headache Albuterol Sulfate (Albuterol Sulfate (0.083%) 2.5 Mg/3 Ml Vial.Neb) 2.5 mg INHALE Q2H PRN PRN Reason: Shortness of Breath/Wheezing Albuterol/Ipratropium (Albuterol/Iprat 2.5/0.5mg 3 Ml Ampul.Neb) 3 ml INHALE RQ4H WHILE AWAKE [facility] Last Admin: 09/08/25 07:48 Dose: Not Given Documented By: MOER Non-Admin Reason: refused, eating Atenolol (Atenolol 25 Mg Tablet) 25 mg PO DAILY [facility]; Protocol Atorvastatin Calcium (Atorvastatin Calcium 40 Mg Tablet) 40 mg PO BEDTIME [facility] Last Admin: 09/07/25 23:39 Dose: 40 mg Documented By: MYRNA Calcium Carbonate (Calcium Carbonate 750 Mg Tab.Chew) 750 mg PO Q4H PRN PRN Reason: Heartburn Clozapine (Clozapine 100 Mg Tablet) 200 mg PO DAILY [facility] Clozapine (Clozapine 100 Mg Tablet) 100 mg PO BEDTIME [facility] Last Admin: 09/07/25 23:39 Dose: 100 mg Documented By: MYRNA Dextrose (Dextrose 50 % 25 Gm/50 Ml Syringe) 25 gm IVPUSH Q15M PRN; Protocol PRN Reason: per Hypoglycemia Standing Ord. Enoxaparin Sodium (Enoxaparin Sodium 40 Mg/0.4 Ml Syringe) 40 mg SUBCUT Q24H [facility] Fluticasone/Umeclidinium/Vilanterol (Fluticasone/Umeclidinium/Vilanterol 100/62.5/25 Blst.W.Dev) 1 puff INHALE RDAILY [facility] Last Admin: 09/08/25 07:50 Dose: Not Given Documented By: OMER Non-Admin Reason: pharmacy called for med Gabapentin (Gabapentin 600 Mg Tablet) 600 mg PO TID [facility] Glucose (Glucose Gel 15 Gm Gel..Gram.) 15 gm PO Q15M PRN; Protocol PRN Reason: per Hypoglycemia Standing Ord. Doxycycline Hyclate 100 mg/ (Sodium Chloride) 250 mls @ 166.67 mls/hr IV Q12H [facility] Last Infusion: 09/08/25 01:32 Dose: Infused Documented By: MYRNA Insulin Glargine (Insulin Glargine,Hum.Rec.Anlog 100 Unit/Ml 10 Ml Vial) 15 unit SUBCUT BEDTIME [facility] Last Admin: 09/08/25 00:31 Dose: 15 unit Documented By: MYRNA Insulin Human Lispro (Insulin Lispro 100 Unit/Ml 3 Ml Vial) 0 unit SUBCUT QIDACHS [facility]; Protocol Last Admin: 09/08/25 07:38 Dose: Not Given Documented By: RE Non-Admin Reason: No Insulin Coverage Levothyroxine Sodium (Levothyroxine Sodium 175 Mcg Tablet) 175 mcg PO DAILY@0630 [facility] Last Admin: 09/08/25 06:22 Dose: Not Given Documented By: SPENCER Non-Admin Reason: lethargy, unable to swallow pills safely [place] Carbonate ([place] Carbonate Er 450 Mg Tablet.Er) 450 mg PO BID [facility] Last Admin: 09/07/25 23:39 Dose: 450 mg Documented By: MYRNA Loratadine (Loratadine 10 Mg Tablet) 10 mg PO DAILY [facility] Magnesium Hydroxide (Milk Of Magnesia 30 Ml Oral.Susp) 30 ml PO DAILY PRN PRN Reason: Constipation Melatonin (Melatonin 3 Mg Tablet) 6 mg PO BEDTIME PRN PRN Reason: Insomnia Non-Formulary Medication (Wellbutrin) 75 mg PO DAILY [facility] Non-Formulary Medication (Klonopin) 0.5 mg PO Q3-6H PRN PRN Reason: Anxiety Prednisone (Prednisone 20 Mg Tablet) 40 mg PO DAILY [facility] Stop: 09/12/25 09:01 Sodium Chloride (0.9 % Sodium Chloride Flush 3 Ml Syringe) 3 ml IVFLUSH QSHIFT [facility] Last Admin: 09/08/25 00:33 Dose: 3 ml Documented By: MYRNA Tamsulosin HCl (Tamsulosin Hcl 0.4 Mg Capsule) 0.4 mg PO BEDTIME [facility] Labs 09/08/25 05:54 09/08/25 05:54 Labs: Laboratory Results - last 24 hr 09/07/25 09/07/25 09/07/25 15:51 15:52 16:00 MCV 86.3 MCH 24.7 L MCHC 28.6 L RDW 16.5 H Plt Count 336 MPV 9.2 L Immature Gran % (Auto) 0.4 Neut % (Auto) 74.2 H Lymph % (Auto) 18.2 L [place] % (Auto) 6.6 Eos % (Auto) 0.2 Baso % (Auto) 0.4 Lymph # (Auto) 1.7 [place] # (Auto) 0.6 Eos # (Auto) 0.0 Baso # (Auto) 0.0 Abs Immat Gran (auto) 0.04 H Absolute Neuts (auto) 7.1 Absolute Nucleated RBC 0.000 Nucleated RBC % (auto) 0.0 Hold Blue Top SEE NOTE VBG pH 7.39 VBG pCO2 60 VBG pO2 45 VBG HCO3 36 H VBG O2 Saturation 74.0 VBG Base Excess 9.5 Anion Gap 13 Estim Creat Clear Calc 107.3 Estimated GFR > 60 POC Glucose Random Glucose 78 Estimat Average Glucose Hemoglobin A1c % Lactic Acid Calcium 9.2 Magnesium Total Bilirubin 0.6 AST 29 ALT 15 Alkaline Phosphatase 103 Troponin I High Sens 3.5 D NT-Pro-B Natriuret Pep 2537.7 H Total Protein 7.4 Albumin 4.2 TSH 1.31 Urine Color Urine Appearance Urine pH Ur Specific [place] Urine Protein Urine Glucose (UA) Urine Ketones Urine Blood Urine Nitrite Ur Leukocyte Esterase [place] COVID-19 (LOLITA) Negative COVID-19 Clin Com See Note Influenza Type A (LUNA) Negative Influenza Type B (LUNA) Negative Influenza A & B Note See Note 09/07/25 09/07/25 09/07/25 18:42 19:25 20:34 MCV MCH MCHC RDW Plt Count MPV Immature Gran % (Auto) Neut % (Auto) Lymph % (Auto) [place] % (Auto) Eos % (Auto) Baso % (Auto) Lymph # (Auto) [place] # (Auto) Eos # (Auto) Baso # (Auto) Abs Immat Gran (auto) Absolute Neuts (auto) Absolute Nucleated RBC Nucleated RBC % (auto) Hold Blue Top VBG pH VBG pCO2 VBG pO2 VBG HCO3 VBG O2 Saturation VBG Base Excess Anion Gap Estim Creat Clear Calc Estimated GFR POC Glucose 84 Random Glucose Estimat Average Glucose Hemoglobin A1c % Lactic Acid 0.9 Calcium Magnesium Total Bilirubin AST ALT Alkaline Phosphatase Troponin I High Sens NT-Pro-B Natriuret Pep Total Protein Albumin TSH Urine Color Yellow Urine Appearance Clear Urine pH 7.5 Ur Specific [place] 1.010 Urine Protein Negative Urine Glucose (UA) Negative Urine Ketones Negative Urine Blood Negative Urine Nitrite Negative Ur Leukocyte Esterase Negative [place] COVID-19 (LOLITA) COVID-19 Clin Com Influenza Type A (LUNA) Influenza Type B (LUNA) Influenza A & B Note 09/07/25 09/08/25 09/08/25 20:44 05:54 07:32 MCV 86.1 MCH 24.3 L MCHC 28.2 L RDW 16.1 H Plt Count 343 MPV 9.7 Immature Gran % (Auto) Neut % (Auto) Lymph % (Auto) [place] % (Auto) Eos % (Auto) Baso % (Auto) Lymph # (Auto) [place] # (Auto) Eos # (Auto) Baso # (Auto) Abs Immat Gran (auto) Absolute Neuts (auto) Absolute Nucleated RBC Nucleated RBC % (auto) Hold Blue Top VBG pH 7.42 VBG pCO2 61 VBG pO2 68 VBG HCO3 39 H VBG O2 Saturation 96.0 VBG Base Excess 12.5 Anion Gap 10 L Estim Creat Clear Calc 120.2 Estimated GFR > 60 POC Glucose 143 H Random Glucose 156 H Estimat Average Glucose 134 Hemoglobin A1c % 6.3 H Lactic Acid Calcium 8.6 D Magnesium 2.2 Total Bilirubin AST ALT Alkaline Phosphatase Troponin I High Sens NT-Pro-B Natriuret Pep Total Protein Albumin TSH Urine Color Urine Appearance Urine pH Ur Specific [place] Urine Protein Urine Glucose (UA) Urine Ketones Urine Blood Urine Nitrite Ur Leukocyte Esterase [place] 0.81 COVID-19 (LOLITA) COVID-19 Clin Com Influenza Type A (LUNA) Influenza Type B (LUNA) Influenza A & B Note Assessment and Plan (1) Acute exacerbation of chronic obstructive pulmonary disease: Status: Acute Plan 60 y/o man who presents with: Acute hypoxic respiratory failure secondary to acute exacerbation of COPD. Telemetry. Pulse oximetry. Supplemental O2 to keep O2 sats > 90%. Continue bronchodilator therapy and prednisone p.o. but start empiric IV antibiotic therapy with doxycycline. Continue Claritin. Patient was encouraged to quit smoking tobacco. Type 2 diabetes mellitus. BG checks before meals at bedtime. Insulin sliding scale. Diabetic diet. Check hemoglobin A1c. Essential hypertension. Continue home med. Schizophrenia/mood disorder. Continue clozapine, lithium and gabapentin. Tobacco dependence. Tobacco cessation education. Nicotine patch as needed. Hyperlipidemia. Continue statin. Hypothyroidism. Check TSH. Continue levothyroxine. Code status: Full DVT prophylaxis: Lovenox Patient will need hospitalization for at least 2 midnights for acute hypoxic respiratory failure due to COPD exacerbation treatment with supplemental oxygen, bronchodilator therapy, steroids and IV antibiotics. Quality Stroke Does the patient have a stroke diagnosis?: No VTE Prior VTE?: No VTE Risk Level:: Medical - moderate - high VTE Device Contraindication: Treatment Not Indicated VTE Drug Contraindication: N/A - Med Ordered
--- NOTE | 2025-09-08 08:30 | PC.NURSE ---
pt put watch in the drawer at bedside
--- NOTE | 2025-09-08 08:51 | MHC.CM.PN ---
Addendum entered by Qiana Bryant 09/08/25 10:35: Patient is active with [facility]. Original Note: CM attempted to meet with Patient at bedside. Patient appeared slow to respond and to be having difficulty responding to questions. Per Patient's request, CM called Patient's Bother/HCP/[facility] @ [phone] but was only able to leave a detailed message. FELICE awaits a return call from [facility].
--- NOTE | 2025-09-08 09:49 | PHA.MEDREC ---
Addendum entered by Crow Obrien RPh 09/08/25 10:43: Reviewed by [facility] Original Note: Pharmacy Consult ? Medication Reconciliation Pharmacy confirmed med rec done by nursing, utilizing med lists from. Utilized list from senior living. Called senior living to get last dose of Clonzapine (Pt takes 200mg in Am and 100mg Pm, senior living confirmed pt LT 200mg yesterday and 100mg 2 nights ago) and to make sure list up to date (List printed 08/11) and they gave me pt VN (Angel [phone]) number to call; also in claims Docusate 100mg caps LF 08/30 for 30 days and Glipizide 2.5mg tabs LF 08/20 for 30 days. Spoke with Angel and he confirmed pt taking Docusate 100mg 1 daily, Glipizide 2.5mg and to confirm pt insulin. [facility] confirmed pt taking Docusate 100mg once daily, pt no longer taking Glipizide and stopped that ~3 months ago due to pt sugars dropping very low, pt stopped taking his Insulin Glargine and Humalog per nurse 08/05 for pt sugars being so low; states provider made aware pt stopped those. PT takes Prolixin Q2W and VN states pt last took it 08/28.
--- NOTE | 2025-09-08 10:39 | MHC.CM.PN ---
Addendum entered by Qiana Bryant 09/08/25 10:42: From chart review, Patient lives in a [place] and he uses a walker to assist with mobility. Vpk Teacher is [place] @ [phone]. PCP is Dr. Pate and Patient will require BLS transport at dc.Patient is active with [facility]. CM has initiated and will follow for dc planning. Original Note: Per MD in ROUNDS, thus far there is no indication that HCP is invoked. Patient has asked CM to reach out to his Brother/HCP/Levy but after multiple attempts to reach Levy, CM has not been able to speak to him. With HCP not invoked, CM went back to Patient and addressed the IMM with him verbally, providing Patient with the original and a copy has been placed on the chart.
[2025-09-08] MEDS: Albuterol/Iprat 2.5/0.5MG 3 ML AMPUL.NEB INHALE ×2 (11:11→15:15)
[2025-09-08 11:55] LABS: Glucose, Whole Blood 159 mg/dL (60-115)
[2025-09-08 14:39] LABS: Chlamydia pneumoniae PCR Not Detected (Not Detect.); Coronavirus 229E PCR Not Detected (Not Detect.); Coronavirus HKU1 PCR Not Detected (Not Detect.); Coronavirus NL63 PCR Not Detected (Not Detect.); Coronavirus OC43 PCR Not Detected (Not Detect.); RSV PCR Not Detected (Not Detect.); Rhino/Enterovirus PCR Not Detected (Not Detect.)
[2025-09-08 14:50] LABS: SARS-CoV-2 PCR Not Detected (Not Detect.)
[2025-09-08 14:51] LABS: Influenza A H1 PCR Not Detected (Not Detect.); Influenza A H1-2009 PCR Not Detected (Not Detect.); Influenza A H3 PCR Not Detected (Not Detect.)
--- NOTE | 2025-09-08 14:52 | PC.NURSE ---
Pt up to chair. 2L nasal cannula. Sats 96%. Ate little protein, reports that he has had some difficulty eating since his bowel surgery.
[2025-09-08] MEDS: Throat Lozenge, Medicated LOZENGE 1 LOZENGE MUCOUS MEM (16:00)
[2025-09-08 16:12] LABS: Glucose, Whole Blood 222 mg/dL (60-115)
[2025-09-08 20:47] LABS: Glucose, Whole Blood 197 mg/dL (60-115)
[2025-09-09] VITALS (10 sets, daily range): BP systolic 102–118; BP diastolic 51–56; PULSE 64–71; RESP 18–20; TEMP 36.6–37.6; O2SAT 82–95
[2025-09-09 07:24] LABS: Glucose, Whole Blood 79 mg/dL (60-115)
[2025-09-09] MEDS: 0.9 % Sodium Chloride Flush 3 ML SYRINGE IVFLUSH ×3 (08:18→21:01)
[2025-09-09] MEDS: Fluticasone/Umeclidinium/Vilanterol 100/62.5/25 BLST.W.DEV 1 PUFF INHALE (11:11)
--- NOTE | 2025-09-09 11:12 | HO.NURTONUR ---
Pt has been more somnolent today. Arousable to voice and light tap on shoulder. He has been asleep every time RN approached. Lungs coarse, rhoncus, wheezy, especially on the right. Loose cough. Room air sats 82% while in bed. 90-93% on 2L NC. Up to chair now.
[2025-09-09] MEDS: Albuterol/Iprat 2.5/0.5MG 3 ML AMPUL.NEB INHALE ×3 (11:15→19:40)
[2025-09-09 11:42] LABS: Glucose, Whole Blood 118 mg/dL (60-115)
--- NOTE | 2025-09-09 11:59 | PC.NURSE ---
Pt having more difficulty with motor skills today. He has been dropping silverware, has difficulty using a pencil (he was writing yesterday). His knees almost buckled while getting up to chair. Respiratory found that he was pocketing food.
--- NOTE | 2025-09-09 14:29 | HO.PM.IMPN ---
Subjective Subjective Date of Service: 09/09/25 Interval History: COPD exacerbation Review of Systems Patient is short of breath with minimal exertion, we will try to ambulate and see sats. Has cough dry Review of Systems: Yes all other systems are reviewed and are negative Physical Exam Exam: Exam: Appearance: Alert.? Oriented X3.? cvs: [id number], [id number]. res: Air entry seem diminished, bilateral expiratory wheezing abd: no rebound or guarding ,nt, bs present. ext pulses present , no cyanosis. neuro: axo3 , nonfocal. Vital Signs: Vital Signs: Last Vital Signs Temp 98.8 F 09/09/25 11:56 Pulse 64 09/09/25 11:56 Resp 20 09/09/25 11:56 BP 102/51 L 09/09/25 11:56 Pulse Ox 94 09/09/25 11:56 O2 Del Method Nasal Cannula 09/09/25 11:56 O2 Flow Rate 2 09/09/25 11:56 BMI result Body Mass Index 19.7 Objective Data Active Medications Acetaminophen (Acetaminophen 325 Mg Tablet) 975 mg PO Q6H PRN PRN Reason: Pain, Mild 1-3,fever,headache Albuterol Sulfate (Albuterol Sulfate (0.083%) 2.5 Mg/3 Ml Vial.Neb) 2.5 mg INHALE Q2H PRN PRN Reason: Shortness of Breath/Wheezing Albuterol/Ipratropium (Albuterol/Iprat 2.5/0.5mg 3 Ml Ampul.Neb) 3 ml INHALE RQ4H WHILE AWAKE [facility] Last Admin: 09/09/25 11:15 Dose: 3 ml Documented By: OK Atenolol (Atenolol 25 Mg Tablet) 25 mg PO DAILY [facility]; Protocol Last Admin: 09/09/25 08:23 Dose: 25 mg Documented By: RE Atorvastatin Calcium (Atorvastatin Calcium 40 Mg Tablet) 40 mg PO BEDTIME [facility] Last Admin: 09/08/25 21:06 Dose: 40 mg Documented By: TIFFANIE Benzocaine (Throat Lozenge, Medicated Lozenge) 1 lozenge MUCOUS MEM Q2H PRN PRN Reason: Sore Throat Last Admin: 09/08/25 16:00 Dose: 1 lozenge Documented By: RE Benzocaine (Throat Lozenge, Medicated Lozenge) 1 lozenge MUCOUS MEM Q2H PRN PRN Reason: Sore Throat Bupropion HCl (Bupropion Hcl 75 Mg Tablet) 75 mg PO DAILY [facility] Last Admin: 09/09/25 08:23 Dose: 75 mg Documented By: RE Calcium Carbonate (Calcium Carbonate 750 Mg Tab.Chew) 750 mg PO Q4H PRN PRN Reason: Heartburn Clonazepam (Clonazepam 0.5 Mg Tablet) 0.5 mg PO Q6H PRN PRN Reason: Anxiety Clozapine (Clozapine 100 Mg Tablet) 200 mg PO DAILY [facility] Last Admin: 09/09/25 08:22 Dose: 200 mg Documented By: RE Clozapine (Clozapine 100 Mg Tablet) 100 mg PO BEDTIME [facility] Last Admin: 09/08/25 21:06 Dose: 100 mg Documented By: TIFFANIE Dextrose (Dextrose 50 % 25 Gm/50 Ml Syringe) 25 gm IVPUSH Q15M PRN; Protocol PRN Reason: per Hypoglycemia Standing Ord. Docusate Sodium (Docusate Sodium 100 Mg Capsule) 100 mg PO DAILY [facility] Last Admin: 09/09/25 08:21 Dose: 100 mg Documented By: RE Enoxaparin Sodium (Enoxaparin Sodium 40 Mg/0.4 Ml Syringe) 40 mg SUBCUT Q24H [facility] Last Admin: 09/09/25 08:18 Dose: 40 mg Documented By: RE Fluphenazine Decanoate (Fluphenazine Decanoate 25 Mg/Ml 5 Ml Vial) 25 mg IM Q14D [facility] Fluticasone Propionate (Fluticasone Propionate Nasal 16 Gm [place]) 2 spray NOSTRIL-B BID [facility] Last Admin: 09/09/25 11:52 Dose: 2 spray Documented By: RE Fluticasone/Umeclidinium/Vilanterol (Fluticasone/Umeclidinium/Vilanterol 100/62.5/25 Blst.W.Dev) 1 puff INHALE RDAILY [facility] Last Admin: 09/09/25 11:11 Dose: 1 puff Documented By: OK Gabapentin (Gabapentin 600 Mg Tablet) 600 mg PO TID [facility] Last Admin: 09/09/25 08:21 Dose: 600 mg Documented By: RE Glucose (Glucose Gel 15 Gm Gel..Gram.) 15 gm PO Q15M PRN; Protocol PRN Reason: per Hypoglycemia Standing Ord. Doxycycline Hyclate 100 mg/ (Sodium Chloride) 250 mls @ 166.67 mls/hr IV Q12H [facility] Last Infusion: 09/09/25 12:20 Dose: Infused Documented By: RE Insulin Glargine (Insulin Glargine,Hum.Rec.Anlog 100 Unit/Ml 10 Ml Vial) 15 unit SUBCUT BEDTIME [facility] Last Admin: 09/08/25 21:05 Dose: 15 unit Documented By: TIFFANIE Insulin Human Lispro (Insulin Lispro 100 Unit/Ml 3 Ml Vial) 0 unit SUBCUT QIDACHS [facility]; Protocol Last Admin: 09/09/25 11:49 Dose: Not Given Documented By: RE Non-Admin Reason: No Insulin Coverage Levothyroxine Sodium (Levothyroxine Sodium 175 Mcg Tablet) 175 mcg PO DAILY@0630 [facility] Last Admin: 09/09/25 05:55 Dose: 175 mcg Documented By: TIFFANIE [place] Carbonate ([place] Carbonate Er 450 Mg Tablet.Er) 450 mg PO BID [facility] Last Admin: 09/09/25 08:23 Dose: 450 mg Documented By: RE Loratadine (Loratadine 10 Mg Tablet) 10 mg PO DAILY [facility] Last Admin: 09/09/25 08:21 Dose: 10 mg Documented By: RE Magnesium Hydroxide (Milk Of Magnesia 30 Ml Oral.Susp) 30 ml PO DAILY PRN PRN Reason: Constipation Melatonin (Melatonin 3 Mg Tablet) 6 mg PO BEDTIME PRN PRN Reason: Insomnia Nicotine (Nicotine 21 Mg Patch.Td24) 21 mg TRANSDERMA DAILY [facility] Last Admin: 09/09/25 08:25 Dose: Not Given Documented By: RE Non-Admin Reason: using gum Nicotine Polacrilex (Nicotine Polacrilex 2 Mg Gum) 2 mg BUCCAL Q2H PRN PRN Reason: Nicotine Cravings Last Admin: 09/09/25 05:55 Dose: 2 mg Documented By: TIFFANIE Polyethylene Glycol (Polyethylene Glycol 3350 17 Gm Powd.Pack) 17 gm PO DAILY [facility] Last Admin: 09/09/25 08:26 Dose: 17 gm Documented By: RE Prednisone (Prednisone 20 Mg Tablet) 40 mg PO DAILY [facility] Stop: 09/12/25 09:01 Last Admin: 09/09/25 08:22 Dose: 40 mg Documented By: RE Sodium Chloride (0.9 % Sodium Chloride Flush 3 Ml Syringe) 3 ml IVFLUSH QSHIFT [facility] Last Admin: 09/09/25 08:18 Dose: 3 ml Documented By: RE Tamsulosin HCl (Tamsulosin Hcl 0.4 Mg Capsule) 0.4 mg PO BEDTIME [facility] Last Admin: 09/08/25 21:06 Dose: 0.4 mg Documented By: JENNYCOMarinD Labs 09/08/25 05:54 09/08/25 05:54 Labs: Laboratory Results - last 24 hr 09/08/25 09/08/25 09/08/25 11:41 16:08 20:43 POC Glucose 222 H 197 H Respiratory Panel [place] See Note Adenovirus (Rapid PCR) Not Detected B.pert (TEM-PCR) Not Detected B.parapertussis DNA PCR Not Detected C. pneumoniae DNA (PCR) Not Detected Coronavirus OC43 (PCR) Not Detected Coronavirus HKU1 (PCR) Not Detected Coronavirus 229E (PCR) Not Detected Coronavirus NL63 (PCR) Not Detected Human Metapneumovir PCR Not Detected Influenza A (RT-PCR) Not Detected Influenza A (H1) PCR Not Detected Influ A (H1/09) PCR Not Detected Influenza A (H3) PCR Not Detected Influenza B (RT-PCR) Not Detected M. pneumoniae (PCR) Not Detected Parainfluenza 1 (PCR) Not Detected Parainfluenza 2 (PCR) Not Detected Parainfluenza 3 (PCR) Not Detected Parainfluenza 4 (PCR) Not Detected RSV (PCR) Not Detected Entero/Rhino (PCR) Not Detected SARS-CoV-2 RNA (RT-PCR) Not Detected 09/09/25 09/09/25 07:15 11:38 POC Glucose 79 118 H Respiratory Panel [place] Adenovirus (Rapid PCR) B.pert (TEM-PCR) B.parapertussis DNA PCR C. pneumoniae DNA (PCR) Coronavirus OC43 (PCR) Coronavirus HKU1 (PCR) Coronavirus 229E (PCR) Coronavirus NL63 (PCR) Human Metapneumovir PCR Influenza A (RT-PCR) Influenza A (H1) PCR Influ A (H1/09) PCR Influenza A (H3) PCR Influenza B (RT-PCR) M. pneumoniae (PCR) Parainfluenza 1 (PCR) Parainfluenza 2 (PCR) Parainfluenza 3 (PCR) Parainfluenza 4 (PCR) RSV (PCR) Entero/Rhino (PCR) SARS-CoV-2 RNA (RT-PCR) Microbiology Microbiology Results: Microbiology 09/07/25 20:00 Blood Culture - Preliminary Blood - Venous No growth after 24 hours. 09/07/25 20:34 Blood Culture - Preliminary Blood - Venous No growth after 24 hours. Assessment and Plan (1) Acute exacerbation of chronic obstructive pulmonary disease: Status: Acute Plan 60 y/o man who presents with: Acute hypoxic respiratory failure secondary to acute exacerbation of COPD. Telemetry. Pulse oximetry. Supplemental O2 to keep O2 sats > 90%. Continue bronchodilator therapy and prednisone p.o. but start empiric IV antibiotic therapy with doxycycline. Continue Claritin. Patient was encouraged to quit smoking tobacco. Type 2 diabetes mellitus. BG checks before meals at bedtime. Insulin sliding scale. Diabetic diet. Check hemoglobin A1c. Essential hypertension. Continue home med. Schizophrenia/mood disorder. Continue clozapine, lithium and gabapentin. Tobacco dependence. Tobacco cessation education. Nicotine patch as needed. Hyperlipidemia. Continue statin. Hypothyroidism. Check TSH. Continue levothyroxine. Code status: Full DVT prophylaxis: Lovenox ongoing need hospitalization for acute hypoxic respiratory failure due to COPD exacerbation treatment with supplemental oxygen, bronchodilator therapy, steroids and IV antibiotics. Quality Stroke Does the patient have a stroke diagnosis?: No VTE Prior VTE?: No VTE Risk Level:: Medical - moderate - high VTE Device Contraindication: Treatment Not Indicated VTE Drug Contraindication: N/A - Med Ordered
[2025-09-09 17:18] LABS: Glucose, Whole Blood 227 mg/dL (60-115)
[2025-09-09 20:24] LABS: Glucose, Whole Blood 202 mg/dL (60-115)
[2025-09-09] MEDS: Insulin Glargine,Hum.rec.anlog 100 UNIT/ML 10 ML VIAL 15 UNIT SUBCUT (21:00)
[2025-09-10] VITALS (12 sets, daily range): BP systolic 95–123; BP diastolic 44–60; PULSE 67–112; RESP 16–18; TEMP 36.5–37.2; O2SAT 83–96
[2025-09-10 07:33] LABS: Glucose, Whole Blood 79 mg/dL (60-115)
[2025-09-10] MEDS: Fluticasone/Umeclidinium/Vilanterol 100/62.5/25 BLST.W.DEV 1 PUFF INHALE (07:42)
[2025-09-10] MEDS: Albuterol/Iprat 2.5/0.5MG 3 ML AMPUL.NEB INHALE ×3 (07:42→19:53)
--- NOTE | 2025-09-10 07:49 | HO.PM.IMPN ---
Subjective Subjective Date of Service: 09/10/25 Interval History: copd Review of Systems Get hypoxic since 80s even with walking, has still dyspnea Physical Exam Exam: Exam: Appearance: Alert.? Oriented X3.? cvs: [id number], [id number]. res: Air entry seem diminished, bilateral expiratory wheezing abd: no rebound or guarding ,nt, bs present. ext pulses present , no cyanosis. neuro: axo3 , nonfocal. Vital Signs: Vital Signs: Last Vital Signs Temp 97.7 F 09/10/25 07:16 Pulse 72 09/10/25 07:42 Resp 16 09/10/25 07:42 BP 96/51 L 09/10/25 07:16 Pulse Ox 95 09/10/25 07:16 O2 Del Method Oxymask 09/10/25 07:16 O2 Flow Rate 3 09/10/25 07:16 BMI result Body Mass Index 19.7 Objective Data Active Medications Acetaminophen (Acetaminophen 325 Mg Tablet) 975 mg PO Q6H PRN PRN Reason: Pain, Mild 1-3,fever,headache Albuterol Sulfate (Albuterol Sulfate (0.083%) 2.5 Mg/3 Ml Vial.Neb) 2.5 mg INHALE Q2H PRN PRN Reason: Shortness of Breath/Wheezing Albuterol/Ipratropium (Albuterol/Iprat 2.5/0.5mg 3 Ml Ampul.Neb) 3 ml INHALE RQ4H WHILE AWAKE [facility] Last Admin: 09/10/25 07:42 Dose: 3 ml Documented By: OK Atenolol (Atenolol 25 Mg Tablet) 25 mg PO DAILY [facility]; Protocol Last Admin: 09/09/25 08:23 Dose: 25 mg Documented By: RE Atorvastatin Calcium (Atorvastatin Calcium 40 Mg Tablet) 40 mg PO BEDTIME [facility] Last Admin: 09/09/25 21:01 Dose: 40 mg Documented By: TIFFANIE Benzocaine (Throat Lozenge, Medicated Lozenge) 1 lozenge MUCOUS MEM Q2H PRN PRN Reason: Sore Throat Last Admin: 09/08/25 16:00 Dose: 1 lozenge Documented By: RE Benzocaine (Throat Lozenge, Medicated Lozenge) 1 lozenge MUCOUS MEM Q2H PRN PRN Reason: Sore Throat Bupropion HCl (Bupropion Hcl 75 Mg Tablet) 75 mg PO DAILY [facility] Last Admin: 09/09/25 08:23 Dose: 75 mg Documented By: RE Calcium Carbonate (Calcium Carbonate 750 Mg Tab.Chew) 750 mg PO Q4H PRN PRN Reason: Heartburn Clonazepam (Clonazepam 0.5 Mg Tablet) 0.5 mg PO Q6H PRN PRN Reason: Anxiety Clozapine (Clozapine 100 Mg Tablet) 200 mg PO DAILY [facility] Last Admin: 09/09/25 08:22 Dose: 200 mg Documented By: RE Clozapine (Clozapine 100 Mg Tablet) 100 mg PO BEDTIME [facility] Last Admin: 09/09/25 21:01 Dose: 100 mg Documented By: TIFFANIE Dextrose (Dextrose 50 % 25 Gm/50 Ml Syringe) 25 gm IVPUSH Q15M PRN; Protocol PRN Reason: per Hypoglycemia Standing Ord. Docusate Sodium (Docusate Sodium 100 Mg Capsule) 100 mg PO DAILY [facility] Last Admin: 09/09/25 08:21 Dose: 100 mg Documented By: RE Enoxaparin Sodium (Enoxaparin Sodium 40 Mg/0.4 Ml Syringe) 40 mg SUBCUT Q24H [facility] Last Admin: 09/09/25 08:18 Dose: 40 mg Documented By: RE Fluphenazine Decanoate (Fluphenazine Decanoate 25 Mg/Ml 5 Ml Vial) 25 mg IM Q14D [facility] Fluticasone Propionate (Fluticasone Propionate Nasal 16 Gm [place]) 2 spray NOSTRIL-B BID [facility] Last Admin: 09/09/25 21:50 Dose: Not Given Documented By: TIFFANIE Non-Admin Reason: Patient Refused Fluticasone/Umeclidinium/Vilanterol (Fluticasone/Umeclidinium/Vilanterol 100/62.5/25 Blst.W.Dev) 1 puff INHALE RDAILY [facility] Last Admin: 09/10/25 07:42 Dose: 1 puff Documented By: OK Gabapentin (Gabapentin 600 Mg Tablet) 600 mg PO TID [facility] Last Admin: 09/09/25 21:00 Dose: 600 mg Documented By: TIFFANIE Glucose (Glucose Gel 15 Gm Gel..Gram.) 15 gm PO Q15M PRN; Protocol PRN Reason: per Hypoglycemia Standing Ord. Doxycycline Hyclate 100 mg/ (Sodium Chloride) 250 mls @ 166.67 mls/hr IV Q12H [facility] Last Infusion: 09/10/25 00:37 Dose: Infused Documented By: TIFFANIE Insulin Glargine (Insulin Glargine,Hum.Rec.Anlog 100 Unit/Ml 10 Ml Vial) 15 unit SUBCUT BEDTIME [facility] Last Admin: 09/09/25 21:00 Dose: 15 unit Documented By: TIFFANIE Insulin Human Lispro (Insulin Lispro 100 Unit/Ml 3 Ml Vial) 0 unit SUBCUT QIDACHS [facility]; Protocol Last Admin: 09/10/25 07:37 Dose: Not Given Documented By: CIERA Non-Admin Reason: No Insulin Coverage Levothyroxine Sodium (Levothyroxine Sodium 175 Mcg Tablet) 175 mcg PO DAILY@0630 [facility] Last Admin: 09/10/25 06:06 Dose: 175 mcg Documented By: TIFFANIE [place] Carbonate ([place] Carbonate Er 450 Mg Tablet.Er) 450 mg PO BID [facility] Last Admin: 09/09/25 21:01 Dose: 450 mg Documented By: TIFFANIE Loratadine (Loratadine 10 Mg Tablet) 10 mg PO DAILY [facility] Last Admin: 09/09/25 08:21 Dose: 10 mg Documented By: RE Magnesium Hydroxide (Milk Of Magnesia 30 Ml Oral.Susp) 30 ml PO DAILY PRN PRN Reason: Constipation Melatonin (Melatonin 3 Mg Tablet) 6 mg PO BEDTIME PRN PRN Reason: Insomnia Nicotine (Nicotine 21 Mg Patch.Td24) 21 mg TRANSDERMA DAILY [facility] Last Admin: 09/09/25 08:25 Dose: Not Given Documented By: RE Non-Admin Reason: using gum Nicotine Polacrilex (Nicotine Polacrilex 2 Mg Gum) 2 mg BUCCAL Q2H PRN PRN Reason: Nicotine Cravings Last Admin: 09/09/25 17:28 Dose: 2 mg Documented By: RE Polyethylene Glycol (Polyethylene Glycol 3350 17 Gm Powd.Pack) 17 gm PO DAILY [facility] Last Admin: 09/09/25 08:26 Dose: 17 gm Documented By: RE Prednisone (Prednisone 20 Mg Tablet) 40 mg PO DAILY [facility] Stop: 09/12/25 09:01 Last Admin: 09/09/25 08:22 Dose: 40 mg Documented By: RE Sodium Chloride (0.9 % Sodium Chloride Flush 3 Ml Syringe) 3 ml IVFLUSH QSHIFT [facility] Last Admin: 09/09/25 21:01 Dose: 3 ml Documented By: TIFFANIE Tamsulosin HCl (Tamsulosin Hcl 0.4 Mg Capsule) 0.4 mg PO BEDTIME [facility] Last Admin: 09/09/25 21:00 Dose: 0.4 mg Documented By: TIFFANIE Labs 09/08/25 05:54 09/08/25 05:54 Labs: Laboratory Results - last 24 hr 09/09/25 09/09/25 09/09/25 11:38 17:15 20:16 POC Glucose 118 H 227 H 202 H 09/10/25 07:14 POC Glucose 79 Microbiology Microbiology Results: Microbiology 09/07/25 20:00 Blood Culture - Preliminary Blood - Venous No growth after 48 hours. 09/07/25 20:34 Blood Culture - Preliminary Blood - Venous No growth after 48 hours. Assessment and Plan (1) Acute exacerbation of chronic obstructive pulmonary disease: Status: Acute Plan 60 y/o man who presents with: Acute hypoxic respiratory failure secondary to acute exacerbation of COPD. Telemetry. Pulse oximetry. Supplemental O2 to keep O2 sats > 90%. Continue bronchodilator therapy and prednisone p.o. but start empiric IV antibiotic therapy with doxycycline. Continue Claritin. Patient was encouraged to quit smoking tobacco. Type 2 diabetes mellitus. BG checks before meals at bedtime. Insulin sliding scale. Diabetic diet. Check hemoglobin A1c. Essential hypertension. Continue home med. Schizophrenia/mood disorder. Continue clozapine, lithium and gabapentin. Tobacco dependence. Tobacco cessation education. Nicotine patch as needed. Hyperlipidemia. Continue statin. Hypothyroidism. Check TSH. Continue levothyroxine. Code status: Full DVT prophylaxis: Lovenox ongoing need hospitalization for acute hypoxic respiratory failure due to COPD exacerbation treatment with supplemental oxygen, bronchodilator therapy, steroids and IV antibiotics. Quality Stroke Does the patient have a stroke diagnosis?: No VTE Prior VTE?: No VTE Risk Level:: Medical - moderate - high VTE Device Contraindication: Treatment Not Indicated VTE Drug Contraindication: N/A - Med Ordered
[2025-09-10] MEDS: Nicotine 21 MG PATCH.TD24 TRANSDERMA (07:53)
[2025-09-10] MEDS: 0.9 % Sodium Chloride Flush 3 ML SYRINGE IVFLUSH (07:59)
--- NOTE | 2025-09-10 10:45 | MHC.CM.PN ---
Per ROUNDS discussion, Patient is not yet medically cleared for dc (O2 needs); Patient may be appropriate for SNF, rather than returning to the [facility], to accommodate O2 needs. CM will follow.
[2025-09-10 11:34] LABS: Glucose, Whole Blood 205 mg/dL (60-115)
[2025-09-10 16:27] LABS: Glucose, Whole Blood 227 mg/dL (60-115)
[2025-09-10 20:42] LABS: Glucose, Whole Blood 246 mg/dL (60-115)
[2025-09-10] MEDS: Insulin Glargine,Hum.rec.anlog 100 UNIT/ML 10 ML VIAL 15 UNIT SUBCUT (20:47)
[2025-09-11] VITALS (12 sets, daily range): BP systolic 86–137; BP diastolic 51–64; PULSE 57–72; RESP 15–18; TEMP 36.1–36.7; O2SAT 92–100
[2025-09-11 07:28] LABS: Glucose, Whole Blood 179 mg/dL (60-115)
--- NOTE | 2025-09-11 07:52 | P.PNIM_ITS ---
Subjective Subjective Date of Service: 09/11/25 Interval History: copd Review of Systems sob /hypoxia seems similar. sleepy in am ,inafternoon seems more awake and able to answer most questions denies new c/o Review of Systems: Yes all other systems are reviewed and are negative Physical Exam 2 Exam: Exam: Appearance: Alert.? Oriented X3.? cvs: rrr, [id number]. res: Air entry seem diminished, bilateral expiratory wheezing abd: no rebound or guarding ,nt, bs present. ext pulses present , no cyanosis. neuro: axo3 , nonfocal. Vital Signs: Vital Signs: Last Vital Signs Temp 98.0 F 09/11/25 07:36 Pulse 68 09/11/25 07:36 Resp 15 09/11/25 07:36 BP 107/53 L 09/11/25 07:36 Pulse Ox 92 09/11/25 07:36 O2 Del Method Nasal Cannula 09/11/25 07:36 O2 Flow Rate 2 09/11/25 03:59 BMI result Body Mass Index 19.7 Objective Data Active Medications Acetaminophen (Acetaminophen 325 Mg Tablet) 975 mg PO Q6H PRN PRN Reason: Pain, Mild 1-3,fever,headache Albuterol Sulfate (Albuterol Sulfate (0.083%) 2.5 Mg/3 Ml Vial.Neb) 2.5 mg INHALE Q2H PRN PRN Reason: Shortness of Breath/Wheezing Albuterol/Ipratropium (Albuterol/Iprat 2.5/0.5mg 3 Ml Ampul.Neb) 3 ml INHALE RQ4H WHILE AWAKE [facility] Last Admin: 09/10/25 19:53 Dose: 3 ml Documented By: CHINYERE Albuterol/Ipratropium (Albuterol/Iprat 2.5/0.5mg 3 Ml Ampul.Neb) 3 ml INHALE Q3H PRN PRN Reason: sob Atenolol (Atenolol 25 Mg Tablet) 25 mg PO DAILY [facility]; Protocol Last Admin: 09/10/25 07:50 Dose: 25 mg Documented By: CIERA Atorvastatin Calcium (Atorvastatin Calcium 40 Mg Tablet) 40 mg PO BEDTIME [facility] Last Admin: 09/10/25 20:47 Dose: 40 mg Documented By: ILDA Benzocaine (Throat Lozenge, Medicated Lozenge) 1 lozenge MUCOUS MEM Q2H PRN PRN Reason: Sore Throat Last Admin: 09/08/25 16:00 Dose: 1 lozenge Documented By: RE Benzocaine (Throat Lozenge, Medicated Lozenge) 1 lozenge MUCOUS MEM Q2H PRN PRN Reason: Sore Throat Bupropion HCl (Bupropion Hcl 75 Mg Tablet) 75 mg PO DAILY [facility] Last Admin: 09/10/25 07:50 Dose: 75 mg Documented By: CIERA Calcium Carbonate (Calcium Carbonate 750 Mg Tab.Chew) 750 mg PO Q4H PRN PRN Reason: Heartburn Clonazepam (Clonazepam 0.5 Mg Tablet) 0.5 mg PO Q6H PRN PRN Reason: Anxiety Clozapine (Clozapine 100 Mg Tablet) 200 mg PO DAILY [facility] Last Admin: 09/10/25 07:51 Dose: 200 mg Documented By: CIERA Clozapine (Clozapine 100 Mg Tablet) 100 mg PO BEDTIME [facility] Last Admin: 09/10/25 20:47 Dose: 100 mg Documented By: ILDA Dextrose (Dextrose 50 % 25 Gm/50 Ml Syringe) 25 gm IVPUSH Q15M PRN; Protocol PRN Reason: per Hypoglycemia Standing Ord. Docusate Sodium (Docusate Sodium 100 Mg Capsule) 100 mg PO DAILY [facility] Last Admin: 09/10/25 07:50 Dose: 100 mg Documented By: CIERA Doxycycline Monohydrate (Doxycycline Monohydrate 100 Mg Capsule) 100 mg PO Q12H [facility] Last Admin: 09/10/25 20:47 Dose: 100 mg Documented By: ILDA Enoxaparin Sodium (Enoxaparin Sodium 40 Mg/0.4 Ml Syringe) 40 mg SUBCUT Q24H [facility] Last Admin: 09/10/25 07:52 Dose: 40 mg Documented By: CIERA Fluphenazine Decanoate (Fluphenazine Decanoate 25 Mg/Ml 5 Ml Vial) 25 mg IM Q14D [facility] Fluticasone Propionate (Fluticasone Propionate Nasal 16 Gm [place]) 2 spray NOSTRIL-B BID [facility] Last Admin: 09/10/25 20:47 Dose: 2 spray Documented By: ILDA Fluticasone/Umeclidinium/Vilanterol (Fluticasone/Umeclidinium/Vilanterol 100/62.04/04 Blst.W.Dev) 1 puff INHALE RDAILY [facility] Last Admin: 09/10/25 07:42 Dose: 1 puff Documented By: OK Gabapentin (Gabapentin 600 Mg Tablet) 600 mg PO TID [facility] Last Admin: 09/10/25 20:47 Dose: 600 mg Documented By: ILDA Glucose (Glucose Gel 15 Gm Gel..Gram.) 15 gm PO Q15M PRN; Protocol PRN Reason: per Hypoglycemia Standing Ord. Insulin Glargine (Insulin Glargine,Hum.Rec.Anlog 100 Unit/Ml 10 Ml Vial) 15 unit SUBCUT BEDTIME [facility] Last Admin: 09/10/25 20:47 Dose: 15 unit Documented By: ILDA Insulin Human Lispro (Insulin Lispro 100 Unit/Ml 3 Ml Vial) 0 unit SUBCUT QIDACHS [facility]; Protocol Last Admin: 09/10/25 20:47 Dose: 4 unit Documented By: ILDA Levothyroxine Sodium (Levothyroxine Sodium 175 Mcg Tablet) 175 mcg PO DAILY@0630 [facility] Last Admin: 09/11/25 06:14 Dose: 175 mcg Documented By: ILDA [place] Carbonate ([place] Carbonate Er 450 Mg Tablet.Er) 450 mg PO BID [facility] Last Admin: 09/10/25 20:47 Dose: 450 mg Documented By: ILDA Loratadine (Loratadine 10 Mg Tablet) 10 mg PO DAILY [facility] Last Admin: 09/10/25 07:51 Dose: 10 mg Documented By: CIERA Magnesium Hydroxide (Milk Of Magnesia 30 Ml Oral.Susp) 30 ml PO DAILY PRN PRN Reason: Constipation Melatonin (Melatonin 3 Mg Tablet) 6 mg PO BEDTIME PRN PRN Reason: Insomnia Nicotine (Nicotine 21 Mg Patch.Td24) 21 mg TRANSDERMA DAILY [facility] Last Admin: 09/10/25 07:53 Dose: 21 mg Documented By: CIERA Nicotine Polacrilex (Nicotine Polacrilex 2 Mg Gum) 2 mg BUCCAL Q2H PRN PRN Reason: Nicotine Cravings Last Admin: 09/09/25 17:28 Dose: 2 mg Documented By: RE Polyethylene Glycol (Polyethylene Glycol 3350 17 Gm Powd.Pack) 17 gm PO DAILY [facility] Last Admin: 09/10/25 07:52 Dose: 17 gm Documented By: CIERA Prednisone (Prednisone 20 Mg Tablet) 40 mg PO DAILY [facility] Stop: 09/12/25 09:01 Last Admin: 09/10/25 07:52 Dose: 40 mg Documented By: CIERA Sodium Chloride (0.9 % Sodium Chloride Flush 3 Ml Syringe) 3 ml IVFLUSH QSHIFT [facility] Last Admin: 09/11/25 01:55 Dose: Not Given Documented By: ILDA Non-Admin Reason: Previously Administered Tamsulosin HCl (Tamsulosin Hcl 0.4 Mg Capsule) 0.4 mg PO BEDTIME [facility] Last Admin: 09/10/25 20:47 Dose: 0.4 mg Documented By: ILDA Labs 09/08/25 05:54 09/08/25 05:54 Labs: Laboratory Results - last 24 hr 09/10/25 09/10/25 09/10/25 11:10 16:21 20:33 POC Glucose 205 H 227 H 246 H 09/11/25 07:25 POC Glucose 179 H Assessment and Plan (1) Acute exacerbation of chronic obstructive pulmonary disease: Status: Acute Plan 60 y/o man who presents with: Acute hypoxic respiratory failure secondary to acute exacerbation of COPD. Telemetry. Pulse oximetry. Supplemental O2 to keep O2 sats > 90%. vbg -ph mainained will check bmp Continue bronchodilator therapy and prednisone p.o. but start empiric IV antibiotic therapy with doxycycline. Continue Claritin. Patient was encouraged to quit smoking tobacco. Type 2 diabetes mellitus. BG checks before meals at bedtime. Insulin sliding scale. Diabetic diet. hemoglobin A1c: 6.3. Essential hypertension. Continue home med. Schizophrenia/mood disorder. Continue clozapine, lithium and gabapentin. Tobacco dependence. Tobacco cessation education. Nicotine patch as needed. Hyperlipidemia. Continue statin. Hypothyroidism: TSH normal. Continue levothyroxine. Code status: Full DVT prophylaxis: Lovenox ongoing need hospitalization for acute hypoxic respiratory failure due to COPD exacerbation treatment with supplemental oxygen, bronchodilator therapy, steroids and IV antibiotics. Quality Stroke Does the patient have a stroke diagnosis?: No VTE Prior VTE?: No VTE Risk Level:: Medical - moderate - high VTE Device Contraindication: Treatment Not Indicated VTE Drug Contraindication: N/A - Med Ordered
[2025-09-11] MEDS: Albuterol/Iprat 2.5/0.5MG 3 ML AMPUL.NEB INHALE ×4 (08:31→20:24)
[2025-09-11] MEDS: Fluticasone/Umeclidinium/Vilanterol 100/62.5/25 BLST.W.DEV 1 PUFF INHALE (08:31)
[2025-09-11] MEDS: Nicotine 21 MG PATCH.TD24 TRANSDERMA (09:00)
[2025-09-11] MEDS: 0.9 % Sodium Chloride Flush 3 ML SYRINGE IVFLUSH ×2 (09:01→20:56)
[2025-09-11 11:42] LABS: Glucose, Whole Blood 216 mg/dL (60-115)
[2025-09-11 11:49] LABS: Venous Blood Gas Refer to POC result
[2025-09-11 11:50] LABS: VBG HCO3 40 mmol/L (22-26); VBG O2 % Saturation 87.0 %
[2025-09-11 14:35] LABS: Ammonia 17 umol/L (13-55)
[2025-09-11 14:44] LABS: Alanine Aminotransferase 8 U/L (0-40); Albumin Level 3.5 g/dL (3.5-5.0); Alkaline Phosphatase 71 U/L (39-117); Anion Gap 7 (12-20); Aspartate Amino Transferase 19 U/L (5-37); Blood Urea Nitrogen 13 mg/dL (9-16); Calcium 9.0 mg/dL (8.4-10.2); Carbon Dioxide 37 mmol/L (22-29); Chloride 100 mmol/L (96-108); Creatinine Clr Calc Pharmacy 114.5; Estimated Glomerular Filt Rate > 60; Potassium 5.0 mmol/L (3.3-5.1); Sodium 139 mmol/L (135-145); Total Protein 6.1 g/dL (6.5-8.0)
[2025-09-11] MEDS: Lactated Ringers 1,000 ML 80 ML IVCONT (15:20)
[2025-09-11 16:03] LABS: Glucose, Whole Blood 270 mg/dL (60-115)
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
[2025-09-11 19:56] LABS: Glucose, Whole Blood 295 mg/dL (60-115)
[2025-09-12] VITALS (8 sets, daily range): BP systolic 102–120; BP diastolic 52–60; PULSE 66–79; RESP 15–29; TEMP 36.3–36.9; O2SAT 92–96
[2025-09-12] MEDS: Lactated Ringers 1,000 ML 80 ML IVCONT (03:17)
[2025-09-12] MEDS: Albuterol/Iprat 2.5/0.5MG 3 ML AMPUL.NEB INHALE ×3 (07:40→15:54)
[2025-09-12] MEDS: Fluticasone/Umeclidinium/Vilanterol 100/62.5/25 BLST.W.DEV 1 PUFF INHALE (07:40)
[2025-09-12 07:44] LABS: Glucose, Whole Blood 167 mg/dL (60-115)
--- NOTE | 2025-09-12 08:02 | HO.PM.IMPN ---
Subjective Subjective Date of Service: 09/12/25 Interval History: copd execerebation Review of Systems Review of Systems: Yes all other systems are reviewed and are negative Physical Exam Exam: Exam: Appearance: Alert.? Oriented X3.? cvs: [id number], [id number]. res: Air entry seem diminished, bilateral expiratory wheezing abd: no rebound or guarding ,nt, bs present. ext pulses present , no cyanosis. neuro: axo3 , nonfocal. Vital Signs: Vital Signs: Last Vital Signs Temp 97.3 F 09/12/25 07:49 Pulse 67 09/12/25 07:49 Resp 22 H 09/12/25 07:49 BP 105/56 L 09/12/25 07:49 Pulse Ox 92 09/12/25 07:49 O2 Del Method Nasal Cannula 09/12/25 07:49 O2 Flow Rate 4 09/12/25 07:49 BMI result Body Mass Index 19.7 Objective Data Active Medications Acetaminophen (Acetaminophen 325 Mg Tablet) 975 mg PO Q6H PRN PRN Reason: Pain, Mild 1-3,fever,headache Albuterol/Ipratropium (Albuterol/Iprat 2.5/0.5mg 3 Ml Ampul.Neb) 3 ml INHALE RQ4H WHILE AWAKE ON LICENSE OF [facility] Last Admin: 09/12/25 07:40 Dose: 3 ml Documented By: MISSAEL Albuterol/Ipratropium (Albuterol/Iprat 2.5/0.5mg 3 Ml Ampul.Neb) 3 ml INHALE Q3H PRN PRN Reason: sob Atenolol (Atenolol 25 Mg Tablet) 25 mg PO DAILY ON LICENSE OF [facility]; Protocol Last Admin: 09/11/25 09:01 Dose: 25 mg Documented By: EVELYN Atorvastatin Calcium (Atorvastatin Calcium 40 Mg Tablet) 40 mg PO BEDTIME ON LICENSE OF [facility] Last Admin: 09/11/25 20:56 Dose: 40 mg Documented By: RE Benzocaine (Throat Lozenge, Medicated Lozenge) 1 lozenge MUCOUS MEM Q2H PRN PRN Reason: Sore Throat Last Admin: 09/08/25 16:00 Dose: 1 lozenge Documented By: RE Benzocaine (Throat Lozenge, Medicated Lozenge) 1 lozenge MUCOUS MEM Q2H PRN PRN Reason: Sore Throat Bupropion HCl (Bupropion Hcl 75 Mg Tablet) 75 mg PO DAILY ON LICENSE OF [facility] Last Admin: 09/11/25 09:01 Dose: 75 mg Documented By: EVELYN Calcium Carbonate (Calcium Carbonate 750 Mg Tab.Chew) 750 mg PO Q4H PRN PRN Reason: Heartburn Clozapine (Clozapine 100 Mg Tablet) 100 mg PO BEDTIME ON LICENSE OF [facility] Last Admin: 09/11/25 20:55 Dose: 100 mg Documented By: RE Clozapine 100 mg/ Clozapine 75 (mg) 175 mg PO DAILY ON LICENSE OF [facility] Dextrose (Dextrose 50 % 25 Gm/50 Ml Syringe) 25 gm IVPUSH Q15M PRN; Protocol PRN Reason: per Hypoglycemia Standing Ord. Docusate Sodium (Docusate Sodium 100 Mg Capsule) 100 mg PO DAILY ON LICENSE OF [facility] Last Admin: 09/11/25 09:01 Dose: 100 mg Documented By: EVELYN Doxycycline Monohydrate (Doxycycline Monohydrate 100 Mg Capsule) 100 mg PO Q12H ON LICENSE OF [facility] Last Admin: 09/11/25 20:56 Dose: 100 mg Documented By: RE Enoxaparin Sodium (Enoxaparin Sodium 40 Mg/0.4 Ml Syringe) 40 mg SUBCUT Q24H ON LICENSE OF [facility] Last Admin: 09/11/25 08:59 Dose: 40 mg Documented By: EVELYN Fluphenazine Decanoate (Fluphenazine Decanoate 25 Mg/Ml 5 Ml Vial) 25 mg IM Q14D ON LICENSE OF [facility] Last Admin: 09/11/25 10:58 Dose: 25 mg Documented By: EVELYN Fluticasone Propionate (Fluticasone Propionate Nasal 16 Gm [place]) 2 spray NOSTRIL-B BID ON LICENSE OF [facility] Last Admin: 09/11/25 21:05 Dose: 2 spray Documented By: RE Fluticasone/Umeclidinium/Vilanterol (Fluticasone/Umeclidinium/Vilanterol 100/62.5/25 Blst.W.Dev) 1 puff INHALE RDAILY ON LICENSE OF [facility] Last Admin: 09/12/25 07:40 Dose: 1 puff Documented By: MISSAEL Gabapentin (Gabapentin 600 Mg Tablet) 600 mg PO BID ON LICENSE OF [facility] Last Admin: 09/11/25 20:56 Dose: 600 mg Documented By: RE Gabapentin (Gabapentin 300 Mg Capsule) 300 mg PO DAILY@1230 ON LICENSE OF [facility] Glucose (Glucose Gel 15 Gm Gel..Gram.) 15 gm PO Q15M PRN; Protocol PRN Reason: per Hypoglycemia Standing Ord. Lactated Ringer's (Lr) 1,000 mls @ 80 mls/hr IVCONT .[id number] ON LICENSE OF [facility] Last Admin: 09/12/25 03:17 Dose: 80 mls/hr Documented By: RE Insulin Glargine (Insulin Glargine,Hum.Rec.Anlog 100 Unit/Ml 10 Ml Vial) 15 unit SUBCUT BEDTIME ON LICENSE OF [facility] On Hold: 09/11/25 13:51 Last Admin: 09/10/25 20:47 Dose: 15 unit Documented By: ILDA Insulin Human Lispro (Insulin Lispro 100 Unit/Ml 3 Ml Vial) 0 unit SUBCUT QIDACHS ON LICENSE OF [facility]; Protocol Last Admin: 09/11/25 20:56 Dose: 6 unit Documented By: RE Levothyroxine Sodium (Levothyroxine Sodium 175 Mcg Tablet) 175 mcg PO DAILY@0630 ON LICENSE OF [facility] Last Admin: 09/12/25 06:25 Dose: 175 mcg Documented By: RE [place] Carbonate ([place] Carbonate Er 450 Mg Tablet.Er) 450 mg PO BID ON LICENSE OF [facility] Last Admin: 09/11/25 20:55 Dose: 450 mg Documented By: RE Loratadine (Loratadine 10 Mg Tablet) 10 mg PO DAILY ON LICENSE OF [facility] Last Admin: 09/11/25 09:01 Dose: 10 mg Documented By: EVELYN Magnesium Hydroxide (Milk Of Magnesia 30 Ml Oral.Susp) 30 ml PO DAILY PRN PRN Reason: Constipation Melatonin (Melatonin 3 Mg Tablet) 6 mg PO BEDTIME PRN PRN Reason: Insomnia Nicotine (Nicotine 21 Mg Patch.Td24) 21 mg TRANSDERMA DAILY ON LICENSE OF [facility] Last Admin: 09/11/25 09:00 Dose: 21 mg Documented By: EVELYN Nicotine Polacrilex (Nicotine Polacrilex 2 Mg Gum) 2 mg BUCCAL Q2H PRN PRN Reason: Nicotine Cravings Last Admin: 09/09/25 17:28 Dose: 2 mg Documented By: RE Polyethylene Glycol (Polyethylene Glycol 3350 17 Gm Powd.Pack) 17 gm PO DAILY ON LICENSE OF [facility] Last Admin: 09/11/25 09:00 Dose: 17 gm Documented By: EVELYN Prednisone (Prednisone 20 Mg Tablet) 40 mg PO DAILY ON LICENSE OF [facility] Stop: 09/12/25 09:01 Last Admin: 09/11/25 09:01 Dose: 40 mg Documented By: EVELYN Sodium Chloride (0.9 % Sodium Chloride Flush 3 Ml Syringe) 3 ml IVFLUSH QSHIFT ON LICENSE OF [facility] Last Admin: 09/11/25 20:56 Dose: 3 ml Documented By: RE Tamsulosin HCl (Tamsulosin Hcl 0.4 Mg Capsule) 0.4 mg PO BEDTIME ON LICENSE OF [facility] Last Admin: 09/11/25 20:56 Dose: 0.4 mg Documented By: ER Labs 09/08/25 05:54 09/11/25 14:22 Labs: Laboratory Results - last 24 hr 09/11/25 09/11/25 09/11/25 11:38 11:43 14:22 VBG pH 7.40 VBG pCO2 64 VBG pO2 60 VBG HCO3 40 H VBG O2 Saturation 87.0 VBG Base Excess 13.4 Anion Gap 7 L Estim Creat Clear Calc 114.5 Estimated GFR > 60 POC Glucose 216 H Random Glucose 207 H Calcium 9.0 Total Bilirubin 0.5 AST 19 ALT 8 Alkaline Phosphatase 71 Ammonia Total Protein 6.1 L Albumin 3.5 09/11/25 09/11/25 09/11/25 14:23 15:56 19:52 VBG pH VBG pCO2 VBG pO2 VBG HCO3 VBG O2 Saturation VBG Base Excess Anion Gap Estim Creat Clear Calc Estimated GFR POC Glucose 270 H 295 H Random Glucose Calcium Total Bilirubin AST ALT Alkaline Phosphatase Ammonia 17 Total Protein Albumin 09/12/25 07:36 VBG pH VBG pCO2 VBG pO2 VBG HCO3 VBG O2 Saturation VBG Base Excess Anion Gap Estim Creat Clear Calc Estimated GFR POC Glucose 167 H Random Glucose Calcium Total Bilirubin AST ALT Alkaline Phosphatase Ammonia Total Protein Albumin Assessment and Plan (1) Acute exacerbation of chronic obstructive pulmonary disease: Status: Acute Plan 60 y/o man who presents with: Acute hypoxic respiratory failure secondary to acute exacerbation of COPD. Telemetry. Pulse oximetry. Supplemental O2 to keep O2 sats > 90%. vbg -ph mainained will check bmp Continue bronchodilator therapy and prednisone p.o. but start empiric IV antibiotic therapy with doxycycline. Continue Claritin. Patient was encouraged to quit smoking tobacco. Type 2 diabetes mellitus. BG checks before meals at bedtime. Insulin sliding scale. Diabetic diet. hemoglobin A1c: 6.3. Essential hypertension. Continue home med. Schizophrenia/mood disorder. Continue clozapine, lithium and gabapentin. Tobacco dependence. Tobacco cessation education. Nicotine patch as needed. Hyperlipidemia. Continue statin. Hypothyroidism: TSH normal. Continue levothyroxine. Code status: Full DVT prophylaxis: Lovenox ongoing need hospitalization for acute hypoxic respiratory failure due to COPD exacerbation treatment with supplemental oxygen, bronchodilator therapy, steroids and IV antibiotics. Quality Stroke Does the patient have a stroke diagnosis?: No VTE Prior VTE?: No VTE Risk Level:: Medical - moderate - high VTE Device Contraindication: Treatment Not Indicated VTE Drug Contraindication: N/A - Med Ordered
[2025-09-12] MEDS: Nicotine 21 MG PATCH.TD24 TRANSDERMA (09:15)
[2025-09-12] MEDS: 0.9 % Sodium Chloride Flush 3 ML SYRINGE IVFLUSH (09:17)
[2025-09-12 11:10] LABS: Glucose, Whole Blood 269 mg/dL (60-115)
--- NOTE | 2025-09-12 14:59 | PM.DS ---
DS: Providers Provider Date of Service: 09/12/25 Date of admission: 09/07/25 22:15 Date of discharge: 09/12/25 Primary care physician: Ginger Vaelro MD Consults: 09/11/25 11:23 Consult to Psychiatry Routine Consulting [place] [facility] [place] Reason for consultation: Schizophrenia/ multiple psych meds / sleppy Has provider been notified: No Attending physician on discharge: Jeff Alvarez Discharging clinician: Jeff Alvarez DS: Diagnosis Discharge Diagnosis (1) Acute exacerbation of chronic obstructive pulmonary disease: Status: Acute DS: Summary Hospital Course Hospital Course: HPI: 60 years old man with past medical history significant for COPD no home O2 and schizophrenia presents to the emergency department complaining of worsening shortness on breath over the last few days associated with wheezing and productive cough. He denied chest pain, dizziness, headache, fever or chills. He did not complain of any acute gastrointestinal or genitourinary symptoms. He has an ongoing heavy tobacco smoker. Denied alcohol abuse or illicit drug use. In the ED, he was found to have stable vital signs except for some degree of tachypnea and tachycardia. He was initially found to have O2 sat 84% and now requiring 4 L/min via OxyMask. Blood workup showed no leukocytosis or lactic acidosis. Hemoglobin is 12.6 and platelets 336. Venous blood gas showed no acute respiratory acidosis x2. There are no electrolyte imbalances. Renal function is normal. Glucose 84. Pro BNP is 2537. Albumin is normal. COVID-19 and influenza are negative. Head CT scan showed no acute intracranial findings. CXR showed no acute abnormalities. ECG showed NSR without ischemic changes. ED tx: Nicotine patch 21 mg, magnesium 1 g IV, prednisone 60 mg p.o., albuterol 7.5 mg. Hospital course: Patient was admitted for acute hypoxemic respiratory failure secondary to COPD exacerbation: Started on IV nebs, steroids, antibiotics, chest x-ray showed-no acute abnormalities, CTA head negative. With the above supportive care patient seems to be improved significantly. We will switch to p.o. antibiotics and steroid taper upon discharge. Patient was also having excessive sleepiness -which was thought to be related to psych medication-clozapine and gabapentin adjusted per psych and Subsequently patient feeling much better-further adjustment of psych medication out patiently with psychiatric follow-up. Currently patient is asymptomatic, alert oriented, follows commands. Plan: Prednisone taper as prescribed-30 mg p.o. q.day for 2 days, then 20 mg p.o. q.d. for 2 days, then 10 mg p.o. q.d. for 2 days. Then stop. P.o. doxycycline 100 mg b.i.d. for 5 more days. Clozapine as adjusted, as well as gabapentin adjusted. Monitor CBC and BMP outpatient . Above management discussed with the patient detail length, assessment and plan coordination time spent 50 minute. Time Attestation Total time managing care of this patient today: 50 mintues. Discharge Coordination Time (in mins): 50 min Quality: Safe Use of Opioids Does Pt have an Active Cancer Diagnosis on the Problem List?: No Quality: Stroke Does the patient have a stroke diagnosis?: No Physical Exam Exam: Exam: Appearance: Alert.? Oriented X3.? cvs: rrr, [id number]. res: Air entry seem diminished, bilateral expiratory wheezing abd: no rebound or guarding ,nt, bs present. ext pulses present , no cyanosis. neuro: axo3 , nonfocal. Vital Signs: Vital Signs: Last Vital Signs Temp 97.5 F 09/12/25 11:48 Pulse 70 09/12/25 11:48 Resp 29 H 09/12/25 11:48 BP 102/52 L 09/12/25 11:48 Pulse Ox 92 09/12/25 11:48 O2 Del Method Nasal Cannula 09/12/25 11:48 O2 Flow Rate 3 09/12/25 11:48 BMI result Body Mass Index 19.7 DS: Data Data Completed and Pending Completed studies during hospitalization [Text1]: Procedures Excision of Right Foot Subcutaneous Tissue and Fascia, Open Approach (02/15/24) Excision of Small Intestine, Open Approach (02/15/24) Introduction of Anesthetic Agent into Peripheral Nerves and Plexi, Percutaneous Approach (02/15/24) Labs on day of discharge: Laboratory Results - last 24 hr 09/11/25 09/11/25 09/12/25 15:56 19:52 07:36 POC Glucose 270 H 295 H 167 H 09/12/25 11:04 POC Glucose 269 H Preliminary micro results at discharge 09/07/25 20:00 Blood Culture - Preliminary Blood - Venous No growth after 48 hours. 09/07/25 20:34 Blood Culture - Preliminary Blood - Venous No growth after 48 hours. Imaging Chest x-ray: Radiologist's impression: ITS Impressions Chest X-Ray 09/07/25 16:36 IMPRESSION: No acute abnormality. Chronic changes, as described. Head ct: 1. No acute intracranial findings. Discharge Plan Discharge Anticipated Discharge Date/Time: 09/12/25 14:31 Patient Disposition: Xfer SNF Discharge Diagnosis: copd execerebation , schizophrenia [facility] Ginger Fulton MD [Primary Care Provider, Internal Medicine] - 1 Week Discharge Medications: New nicotine (polacrilex) 2 mg Gum 2 mg buccal Q2H PRN (Reason: Nicotine Cravings) Qty: 10 0RF doxycycline monohydrate 100 mg Capsule 100 mg PO Q12H Qty: 10 0RF clozapine 25 mg Tablet 175 mg PO DAILY Qty: 1 0RF Sore Throat (benzocaine-menth) 15-3.6 mg Lozenge 1 dio mucous membrane Q2H PRN (Reason: Sore Throat) Qty: 1 0RF prednisone 10 mg tablet 10 mg PO DIRECTED Qty: 1 0RF Rx Instructions: see taper instructions-prednisone 30 mg for 2 days, then 20 mg for 2 days, then 10 mg for 2 days then stop. gabapentin 300 mg Capsule 300 mg PO DAILY@1230 Qty: 1 0RF Continued atorvastatin 40 mg tablet 40 mg PO BEDTIME 30 Days Qty: 30 0RF lithium carbonate 450 mg tablet extended release 450 mg PO BID 30 Days Qty: 60 0RF cetirizine 5 mg tablet 5 mg PO DAILY atenolol 25 mg Tablet 25 mg PO DAILY levothyroxine 175 mcg tablet 175 mcg PO DAILY@0600 clozapine 100 mg tablet 100 mg PO BEDTIME bupropion HCl 75 mg tablet 75 mg PO DAILY clonazepam [Klonopin] 0.5 mg Tablet 0.5 mg PO Q6H PRN (Reason: Anxiety) Rx Instructions: administer 30 minutes before bedtime tamsulosin [Flomax] 0.4 mg capsule 0.4 mg PO BEDTIME fluticasone propionate [Flonase Allergy Relief] 50 mcg/actuation spray,suspension 2 spray INTRANASAL BID Rx Instructions: administer into each nostril fluphenazine decanoate 25 mg/mL solution 25 mg IM Q2W metformin 1,000 mg tablet 1,000 mg PO BID albuterol sulfate 90 mcg/actuation HFA aerosol inhaler 2 inh inhalation Q6H PRN (Reason: Shortness Of Breath Or Wheezing) Trelegy Ellipta 100-62.5-25 mcg blister with device 1 ea inhalation DAILY polyethylene glycol 3350 [Miralax] 17 gram/dose Powder 17 g PO DAILY docusate sodium 100 mg capsule 100 mg PO DAILY Changed gabapentin 600 mg tablet 1 tab PO BID 30 Days Qty: 90 0RF Discontinued clozapine 100 mg Tablet 200 mg PO DAILY Rx Instructions: per [facility] paperwork patient takes 200 mg in the morning and 100 mg bedtime Discharge Orders: Discharge Order (Routine); Ordered 09/12/25 Ordered By: Jeff Alvarez Diet: Advance to usual diet Activity on Discharge: As tolerated Stand Alone Forms: Patient Portal Discharge page Print Language: Belgian Care Plan Goals: Prednisone taper as prescribed-30 mg p.o. q.day for 2 days, then 20 mg p.o. q.d. for 2 days, then 10 mg p.o. q.d. for 2 days. Then stop. P.o. doxycycline 100 mg b.i.d. for 5 more days. Clozapine as adjusted, as well as gabapentin adjusted. Monitor CBC and BMP outpatient . Health Concerns: As above. Plan of Treatment: As above. Assessment: As above.
[2025-09-12 16:09] LABS: Glucose, Whole Blood 280 mg/dL (60-115)
--- NOTE | 2025-09-12 16:11 | MHC.CM.PN ---
SECOND IMM GIVEN 09/12. PT EVALUATED PATIENT AND RECOMMENDED STR. THIS CM MET WITH PATIENT TO DISCUSS STR OPTIONS. PATIENT IN AGREEMENT WITH GOING TO STR AND HAS ACCEPTED A BED AT [facility] [place], HE WILL TRANSPORT THERE VIA [facility] TODAY. PATIENTS BROTHER/HCP ALISON CALLED AND UPDATED ON PATIENTS DISCHARGE PLAN. FLOOR RENOVATOR JOSELIN WAS CALLED AND UPDATED ON PATIENTS DISCHARGE PLAN.
== END 2025-09-12 17:53 | disposition skilled nursing facility (03) | DRG 190 ==
LOC: HO.ED 22:13 → HO.EDOVER 22:22 → HO.IMC 09-08 03:54
PROVIDERS: Physician Assistant; Admitting Provider Internal Medicine; Emergency Provider Emergency Medicine; PCP Internal Medicine; Visit Provider Internal Medicine
DX: J44.1 Chronic obstructive pulmonary disease with (acute) exacerbation (principal); J96.01 Acute respiratory failure with hypoxia; F20.9 Schizophrenia, unspecified; F17.210 Nicotine dependence, cigarettes, uncomplicated; E78.5 Hyperlipidemia, unspecified; E03.9 Hypothyroidism, unspecified; Z71.6 Tobacco abuse counseling; Z87.820 Personal history of traumatic brain injury; Z20.822 Contact with and (suspected) exposure to COVID-19; Z79.84 Long term (current) use of oral hypoglycemic drugs; Z79.899 Other long term (current) drug therapy
CPT/HCPCS: 36415; 70450; 71045; 80048; 80053; 80178; 81003; 82140; 82803; 82947; 83036; 83605; 83735; 83880; 84443; 84484; 85025; 87040; 87502; 87633; 87635; 93005; 94640; 97162; 99285; J1271; J1650; J2680; J3475; J7120

== ENCOUNTER → 2025-09-07 15:47 | Outpatient (BNV) | payer MEDICARE, MEDICAID, SELFPAY | PROVIDERS: Admitting Provider Internal Medicine; Emergency Provider Emergency Medicine; PCP Internal Medicine; Visit Provider Internal Medicine | DX: R06.00 Dyspnea, unspecified (principal) | CPT/HCPCS: 93010 ==

== ENCOUNTER → 2025-09-07 16:36 | Outpatient (BNV) | payer MEDICARE, MEDICAID, SELFPAY | PROVIDERS: PCP Internal Medicine; Visit Provider Radiology Diagnostic Radiology | DX: R41.82 Altered mental status, unspecified (principal); R06.02 Shortness of breath | CPT/HCPCS: 70450 ==

== ENCOUNTER → 2025-09-07 22:15 | Outpatient (BNV) | payer MEDICARE, MEDICAID, SELFPAY | PROVIDERS: Admitting Provider Internal Medicine; Emergency Provider Emergency Medicine; PCP Internal Medicine; Visit Provider Psychiatry & Neurology Psychiatry | DX: F20.9 Schizophrenia, unspecified (principal); J96.01 Acute respiratory failure with hypoxia; J44.1 Chronic obstructive pulmonary disease with (acute) exacerbation | CPT/HCPCS: 99222 ==

== ENCOUNTER → 2025-09-07 22:15 | Outpatient (BNV) | payer MEDICARE, MEDICAID, SELFPAY | PROVIDERS: Admitting Provider Internal Medicine; Emergency Provider Emergency Medicine; PCP Internal Medicine; Visit Provider Internal Medicine | DX: J44.1 Chronic obstructive pulmonary disease with (acute) exacerbation (principal) | CPT/HCPCS: 99232 ==